=== PATIENT | female | born 1950 | race Caucasian/White ===

== ENCOUNTER → 2018-04-13 10:40 | Outpatient (CLI) | payer MEDICARE, OTHER, SELFPAY ==
[2018-04-13 12:44] LABS: Cholesterol 173 mg/dL (200); High Density Lipoprotein 78 mg/dL; Thyroid Stim Hormone (TSH) 0.17 uIU/mL (0.358-3.74); Triglycerides 97 mg/dL; Very Low Density Lipoprotein 19 mg/dL (5-40)
[2018-04-13 14:36] LABS: Absolute Lymphocyte Count 1.98 X10^3/ul (0.83-4.51); Absolute Neutrophil Count 1.8 X10^3/uL (2.0-7.7); Basophil# 0.02 X10^3/uL; Basophil% 0.5 % (0-1); Eosinophil# 0.11 X10^3/uL; Eosinophils% 2.5 % (0-5); Hematocrit 39.2 % (37-47); Hemoglobin 12.2 g/dl (12.0-15.0); Lymphocyte # 1.98 X10^3/ul (4.0); Lymphocyte % 45.3 % (19-41); Mean Corp Hgb Conc 31.1 g/gl (32-36); Mean Corpuscular Volume 93.1 fL (81-99); Mean Platelet Vol. 10.9 fl (6.2-12.0); Monocyte# 0.46 X10^3/uL; Monocyte% 10.5 % (0-10); Neutrophil % 41.2 % (47-70); Platelet Count 286 K/mm3 (150-450); RBC Distribution Width CV 13.7 % (11.6-14.6); RBC Distribution Width SD 46.7 fl (35.1-43.9); Red Blood Count 4.21 M/mm3 (4.2-5.4); White Blood Count 4.4 K/mm3 (4.4-11.0)
[2018-04-13 14:38] LABS: POSITIVE COUNT NO; POSITIVE DIFFERENTIAL NO; POSITIVE MORPHOLOGY NO
== END ==
PROVIDERS: Family Provider Family Medicine; PCP Family Medicine; Visit Provider Family Medicine
DX: E78.5 Hyperlipidemia, unspecified (principal); E03.9 Hypothyroidism, unspecified
CPT/HCPCS: 36415; 80061; 84443; 85025

== ENCOUNTER → 2018-05-04 12:33 | Outpatient (CLI) | payer MEDICARE, OTHER, SELFPAY ==
--- NOTE | 2018-05-04 12:36 | BI_ITS ---
MAMMOGRAPHY - BILATERAL SCREENING REASON FOR EXAM: Female, 68 years old. Routine annual screening examination. PERTINENT HISTORY: Non-contributory. History of prior bilateral breast reduction surgery. TECHNIQUE: Digital bilateral breast kameron (3D mammographic acquisition) in the CC and MLO projections. 2-D mediolateral oblique (MLO) and craniocaudad (CC) views of both breasts were obtained. CAD: Full Field Digital Mammography with Computer Added Detection was performed. COMPARISON: Comparison is made with prior study dated April 22, 2017 and April 05, 2016. FINDINGS: Breast Composition: The breasts are almost entirely fatty. There are no dominant masses or suspicious calcifications. No other significant abnormalities are identified. There has been no significant change since the prior study. BI/SCREENING MAMM (CAD), BILAT IMPRESSION: Stable bilateral screening mammogram. Yearly follow-up mammogram recommended. (A) ASSESSMENT CATEGORY: BIRADS Category 1: Negative. A letter regarding these results will be sent to the patient by the facility within 30 days. Approximately 10% of breast cancers are not detected by mammography. A normal mammogram should not delay biopsy of a clinically suspicious abnormality. [id number] Electronically Signed: Lennox Ellington MD at 9:24 EDT Tel [phone], Service support ,
== END ==
PROVIDERS: Family Provider Family Medicine; PCP Family Medicine; Visit Provider Nurse Practitioner Adult Health
DX: Z12.31 Encounter for screening mammogram for malignant neoplasm of breast (principal)
CPT/HCPCS: 77063; 77067

== ENCOUNTER → 2018-07-18 14:12 | Outpatient (CLI) | payer MEDICARE, OTHER, SELFPAY ==
[2018-07-18 15:09] LABS: Absolute Lymphocyte Count 2.11 X10^3/ul (0.83-4.51); Absolute Neutrophil Count 2.7 X10^3/uL (2.0-7.7); Basophil# 0.02 X10^3/uL; Basophil% 0.4 % (0-1); Eosinophils% 1.9 % (0-5); Hematocrit 41.7 % (37-47); Hemoglobin 12.9 g/dl (12.0-15.0); Immature Platelet Fraction 2.8 % (1.0-7.9); Lymphocyte # 2.11 X10^3/ul (4.0); Lymphocyte % 39.4 % (19-41); Mean Corp Hgb Conc 30.9 g/gl (32-36); Mean Corpuscular Hgb 28.7 pg (27.0-32.0); Mean Corpuscular Volume 92.9 fL (81-99); Mean Platelet Vol. 11.1 fl (6.2-12.0); Monocyte# 0.44 X10^3/uL; Monocyte% 8.2 % (0-10); Neutrophil # 2.68 X10^3/uL (2.7-7.7); Neutrophil % 50.1 % (47-70); Platelet Count 198 K/mm3 (150-450); RBC Distribution Width CV 15.3 % (11.6-14.6); RBC Distribution Width SD 51.9 fl (35.1-43.9); RET-HE 30.6 pg (30-35); Red Blood Count 4.49 M/mm3 (4.2-5.4); Reticulocyte Count 0.75 % (0.5-1.5); White Blood Count 5.4 K/mm3 (4.4-11.0)
[2018-07-18 15:19] LABS: POSITIVE COUNT NO; POSITIVE DIFFERENTIAL NO; POSITIVE MORPHOLOGY NO
[2018-07-18 15:47] LABS: Ferritin 27 ng/mL (8-252); Iron 82 ug/dL (50-170); Iron Binding Capacity,Total 340 ug/dL (250-450); T4 Free Direct 0.68 ng/dL (0.76-1.46); Thyroid Stim Hormone (TSH) 3.44 uIU/mL (0.358-3.74)
== END ==
PROVIDERS: Nurse Practitioner Adult Health; Family Provider Family Medicine; PCP Family Medicine; Visit Provider Family Medicine
DX: E03.9 Hypothyroidism, unspecified (principal); L65.9 Nonscarring hair loss, unspecified
CPT/HCPCS: 36415; 82728; 83540; 83550; 84439; 84443; 85025; 85045

== ENCOUNTER → 2018-10-11 10:02 | Outpatient (CLI) | payer MEDICARE, OTHER, SELFPAY ==
[2018-10-11 12:38] LABS: T4 Total, Thyroxin 8.8 ug/dL (4.8-13.9); Thyroid Stim Hormone (TSH) 1.78 uIU/mL (0.358-3.74)
== END ==
PROVIDERS: Family Provider Family Medicine; PCP Family Medicine; Visit Provider Nurse Practitioner Adult Health
DX: E03.9 Hypothyroidism, unspecified (principal)
CPT/HCPCS: 36415; 84436; 84443

== ENCOUNTER → 2019-01-23 15:47 | Outpatient (CLI) | payer MEDICARE, OTHER, SELFPAY ==
--- NOTE | 2019-01-23 16:02 | EKG12_ITS ---
Test Reason : Blood Pressure : / mmHG Vent. Rate : 063 BPM Atrial Rate : 063 BPM P-R Int : 184 ms QRS Dur : 090 ms QT Int : 438 ms P-R-T Axes : 067 054 040 degrees QTc Int : 448 ms Normal sinus rhythm Normal ECG Confirmed by MAURILIO HERNANDEZ ([id number]), staff editor PIERCE CORTES ([id number] on 01/26/2019 1:32:16 PM Referred By: Spenser Sexton Confirmed By:MAURILIO HERNANDEZ
[2019-01-23 16:41] LABS: Hematocrit 41.3 % (37-47); Hemoglobin 13.1 g/dl (12.0-15.0); Mean Corp Hgb Conc 31.7 g/gl (32-36); Mean Corpuscular Hgb 30.5 pg (27.0-32.0); Mean Platelet Vol. 10.9 fl (6.2-12.0); Platelet Count 235 K/mm3 (150-450); RBC Distribution Width CV 13.7 % (11.6-14.6); RBC Distribution Width SD 47.9 fl (35.1-43.9); White Blood Count 5.9 K/mm3 (4.4-11.0)
[2019-01-23 16:49] LABS: Anion Gap 6 (5-15); BUN 22 mg/dL (7-18); Chloride 101 mmol/L (98-107); Creatinine, Serum 0.71 mg/dL (0.55-1.02); EST Glomerular Filtration Rate 87 mL/min (>60); Est Glom Filt Rate - Afr Amer 105 mL/min (>60); Glucose 85 mg/dL (74-106); Potassium 4.5 mmol/L (3.5-5.1); Sodium Level 139 mmol/L (136-145)
[2019-01-23 17:00] LABS: Scan Indicated on CBC? Y/N NO
== END ==
PROVIDERS: Family Provider Family Medicine; PCP Family Medicine; Referring Provider Physician Assistant; Visit Provider Physician Assistant
DX: Z01.810 Encounter for preprocedural cardiovascular examination (principal); Z01.818 Encounter for other preprocedural examination
CPT/HCPCS: 36415; 80048; 85027; 93005

== ENCOUNTER → 2019-06-04 17:53 | Outpatient (CLI) | payer MEDICARE, OTHER, SELFPAY ==
[2019-06-11 14:32] LABS: HPV Reflexed? NOT INDICATED
== END ==
PROVIDERS: Family Provider Family Medicine; PCP Family Medicine; Referring Provider Nurse Practitioner Adult Health; Visit Provider Nurse Practitioner Adult Health
DX: Z01.419 Encounter for gynecological examination (general) (routine) without abnormal findings (principal)
CPT/HCPCS: 88175; G0145

== ENCOUNTER → 2019-07-03 15:29 | Outpatient (CLI) | payer MEDICARE, OTHER, SELFPAY ==
--- NOTE | 2019-07-03 15:33 | BI_ITS ---
MAMMOGRAPHY - BILATERAL SCREENING REASON FOR EXAM: Female, 69 years old. Routine annual screening examination. PERTINENT HISTORY: Non-contributory. TECHNIQUE: Digital bilateral breast jessica (3D mammographic acquisition) in the CC and MLO projections. 2-D mediolateral oblique (MLO) and craniocaudad (CC) views of both breasts were obtained. CAD: Full Field Digital Mammography with Computer Added Detection was performed. COMPARISON: Comparison is made with prior study dated May 04, 2018 and April 22, 2017. FINDINGS: Breast Composition: The breasts are almost entirely fatty. There are no dominant masses or suspicious calcifications. No other significant abnormalities are identified. There has been no significant change since the prior study. BI/SCREEN MAMM (CAD) W/JESSICA BILAT IMPRESSION: Stable bilateral screening mammogram. Yearly follow-up mammogram recommended. (A) ASSESSMENT CATEGORY: BIRADS Category 1: Negative. A letter regarding these results will be sent to the patient by the facility within 30 days. Approximately 10% of breast cancers are not detected by mammography. A normal mammogram should not delay biopsy of a clinically suspicious abnormality. [id number] Electronically Signed: Lennox Ellington, at 8:37 EDT , Service support ,
--- NOTE | 2019-07-03 15:36 | BD_ITS ---
STUDY: DUAL ENERGY X-RAY ABSORPTIOMETRY / DXA REASON FOR EXAM: Female, 69 years old. The patient is postmenopausal. Loss of height. TECHNIQUE: Bone Mineral Density (BMD) measurements of lumbar spine and bilateral hips were obtained. COMPARISON: Comparison is made with prior examination dated December 20, 2012. FINDINGS: Lumbar Spine (L1-L4): g/cm2 (0.723) / T-score (-3.7) / Z-score (-2.0) Findings are suggestive of osteoporosis with a high fracture risk. Left Femur Total: g/cm2 (0.722) / T-score (-2.3) / Z-score (-0.9) Left Femoral Neck: g/cm2 (0.688) / T-score (-2.5) / Z-score (-0.9) Right Femur Total: g/cm2 (0.686) / T-score (-2.6) / Z-score (-1.2) Right Femoral Neck: g/cm2 (0.700) / T-score (-2.4) / Z-score (-0.8) The T-Scores on the most recent prior examination were: Lumbar Spine (L1-L4): There has been worsening of bone density since the previous examination. Left Femur Total: which represents a worsening of 11.1%. Right Femur Total: which represents a worsening of 4.6%. BD/Dexa Bone Density Study IMPRESSION: The patient is considered osteoporotic as outlined below according to World Jonathon Organization (WHO) criteria with a high fracture risk. There has been worsening of bone density since the previous examination. Reference Information: The T-score is the number of standard deviations above or below the standard which is normal for young adults at their peak bone mineral density. The World Health Organization (WHO) interprets the T-scores as follows: Above -1 Normal bone density Between -1 and -2.5 Osteopenia Equal to / or below -2.5 Osteoporosis As a practical clinical guideline, osteopenia may be graded as follows: Mild -1 through -1.5 Moderate -1.6 through -2.0 Severe -2.1 through -2.4 The Z-score is the number of standard deviations above or below age-matched controls. A Z-score of less than -1.5 would be considered abnormal. References: 1. NIH Osteoporosis and Related Bone Diseases http://www.osteo.org 2. International Society for Clinical Densitometry http://www.iscd.org 3. National Osteoporosis Foundation http://www.nof.org Electronically Signed: Lennox Ellington, at 16:05 EDT , Service support ,
== END ==
PROVIDERS: Family Provider Family Medicine; PCP Family Medicine; Referring Provider Nurse Practitioner Adult Health; Visit Provider Nurse Practitioner Adult Health
DX: Z12.31 Encounter for screening mammogram for malignant neoplasm of breast (principal); Z78.0 Asymptomatic menopausal state; M81.0 Age-related osteoporosis without current pathological fracture
CPT/HCPCS: 77063; 77067; 77080

== ENCOUNTER → 2020-01-01 09:11 | Outpatient (CLI) | payer MEDICARE, OTHER, SELFPAY ==
[2020-01-01 10:14] LABS: Absolute Lymphocyte Count 1.37 X10^3/uL (0.83-4.51); Absolute Neutrophil Count 2.6 X10^3/uL (2.0-7.7); Basophil# 0.04 X10^3/uL; Basophil% 0.9 % (0-1); Eosinophil# 0.08 X10^3/uL; Eosinophils% 1.8 % (0-5); Hematocrit 43.2 % (37-47); Hemoglobin 13.8 g/dL (12.0-15.0); Lymphocyte # 1.37 X10^3/ul (4.0); Lymphocyte % 30.5 % (19-41); Mean Corp Hgb Conc 31.9 g/dL (32-36); Mean Corpuscular Hgb 31.4 pg (27.0-32.0); Mean Corpuscular Volume 98.4 fL (81-99); Mean Platelet Vol. 10.7 fl (6.2-12.0); Monocyte% 8.9 % (0-10); NRBC Flagged by Analyzer 0 % (0-5); Neutrophil # 2.59 X10^3/uL (2.7-7.7); Neutrophil % 57.7 % (47-70); Platelet Count 217 K/mm3 (150-450); RBC Distribution Width CV 13.5 % (11.6-14.6); Red Blood Count 4.39 M/mm3 (4.2-5.4); White Blood Count 4.5 K/mm3 (4.4-11.0)
[2020-01-01 10:44] LABS: Vitamin D,25 Hydroxy 45.9 ng/mL (29.95-100.01)
[2020-01-01 10:45] LABS: ALB/GLOB Ratio 1.1 RATIO (0.9-2.4); AST(SGOT) 22 U/L (15-37); Alanine Aminotransfer ALT/SGPT 16 U/L (13-56); Albumin, Serum 3.8 g/dL (3.2-5.0); Alkaline Phosphatase 67 U/L (45-117); Anion Gap 4 (5-15); BUN 18 mg/dL (7-18); BUN/Creat Ratio 21.5 RATIO (10-20); Calcium,Total 9.2 mg/dL (8.5-10.1); Chloride 104 mmol/L (98-107); Creatinine, Serum 0.84 mg/dL (0.55-1.02); EST Glomerular Filtration Rate 72 mL/min (>60); Est Glom Filt Rate - Afr Amer 87 mL/min (>60); Free T3 1.9 pg/mL (2.18-3.98); Globulin 3.6 g/dL (2.2-4.2); Glucose 67 mg/dL (74-106); Potassium 4.2 mmol/L (3.5-5.1); Protein, Total 7.4 g/dL (6.4-8.2); Sodium Level 140 mmol/L (136-145); T4 Free Direct 0.77 ng/dL (0.76-1.46); Thyroid Stim Hormone (TSH) 5.93 uIU/mL (0.358-3.74)
== END ==
PROVIDERS: PCP Family Medicine; Visit Provider Family Medicine
DX: E03.9 Hypothyroidism, unspecified (principal); M79.7 Fibromyalgia; M85.80 Other specified disorders of bone density and structure, unspecified site
CPT/HCPCS: 36415; 80053; 82306; 84439; 84443; 84481; 85025

== ENCOUNTER → 2020-07-21 12:36 | Outpatient (CLI) | payer MEDICARE, OTHER, SELFPAY ==
--- NOTE | 2020-07-21 12:41 | BI_ITS ---
MAMMOGRAPHY - BILATERAL SCREENING REASON FOR EXAM: Female, 70 years old. Routine annual screening examination. PERTINENT HISTORY: Non-contributory. Remote bilateral breast reduction surgery. TECHNIQUE: Digital bilateral breast jessica (3D mammographic acquisition) in the CC and MLO projections. 2-D mediolateral oblique (MLO) and craniocaudad (CC) views of both breasts were obtained. CAD: Full Field Digital Mammography with Computer Added Detection was performed. COMPARISON: Comparison is made with prior study dated 07/03/2019 and 05/04/2018. FINDINGS: Breast Composition: The breasts are almost entirely fatty. There are no dominant masses or suspicious calcifications. No other significant abnormalities are identified. There has been no significant change since the prior study. BI/SCREEN MAMM (CAD) W/JESSICA BILAT IMPRESSION: Stable bilateral screening mammogram. Yearly follow-up mammogram recommended. (A) ASSESSMENT CATEGORY: BIRADS Category 1: Negative. A letter regarding these results will be sent to the patient by the facility within 30 days. Approximately 10% of breast cancers are not detected by mammography. A normal mammogram should not delay biopsy of a clinically suspicious abnormality. [id number] Electronically Signed: Lennox Ellington, at 14:08 EDT , Service support ,
== END ==
PROVIDERS: PCP Family Medicine; Referring Provider Nurse Practitioner Adult Health; Visit Provider Nurse Practitioner Adult Health
DX: Z12.31 Encounter for screening mammogram for malignant neoplasm of breast (principal)
CPT/HCPCS: 77063; 77067

== ENCOUNTER → 2021-07-03 08:29 | Outpatient (CLI) | payer MEDICARE, OTHER, SELFPAY ==
[2021-07-03 10:34] LABS: AST(SGOT) 22 U/L (15-37); Alanine Aminotransfer ALT/SGPT 15 U/L (13-56); Albumin, Serum 3.6 g/dL (3.2-5.0); Alkaline Phosphatase 66 U/L (45-117); Anion Gap 4 (5-15); BUN 28 mg/dL (7-18); BUN/Creat Ratio 37.8 RATIO (10-20); Calcium,Total 8.8 mg/dL (8.5-10.1); Chloride 104 mmol/L (98-107); Cholesterol 354 mg/dL (200); Creatinine, Serum 0.74 mg/dL (0.55-1.02); EST Glomerular Filtration Rate 82 mL/min (>60); Est Glom Filt Rate - Afr Amer 100 mL/min (>60); Ferritin 68 ng/mL (8-252); Free T3 2.8 pg/mL (2.18-3.98); Globulin 3.5 g/dL (2.2-4.2); Glucose 86 mg/dL (74-106); High Density Lipoprotein 98 mg/dL; Potassium 4.2 mmol/L (3.5-5.1); Protein, Total 7.1 g/dL (6.4-8.2); Sodium Level 140 mmol/L (136-145); T4 Free Direct 1.06 ng/dL (0.76-1.46); Thyroid Stim Hormone (TSH) 1.15 uIU/mL (0.358-3.74)
== END ==
PROVIDERS: PCP Family Medicine; Referring Provider Family Medicine; Visit Provider Family Medicine
DX: E78.00 Pure hypercholesterolemia, unspecified (principal); E03.9 Hypothyroidism, unspecified; E61.1 Iron deficiency
CPT/HCPCS: 36415; 80053; 82465; 82728; 83718; 84439; 84443; 84481

== ENCOUNTER 2021-12-09 13:02 | Emergency (ER) | payer MEDICARE, OTHER, SELFPAY ==
[2021-12-09 13:04] VITALS: BP 147/80; PULSE 84; RESP 16; TEMP 36.9; O2SAT 97; BMI 28.8
[2021-12-09 13:26] VITALS: BP 145/81; PULSE 76; RESP 16; O2SAT 96
--- NOTE | 2021-12-09 14:07 | EKG12_ITS ---
Test Reason : CP Blood Pressure : / mmHG Vent. Rate : 081 BPM Atrial Rate : 081 BPM P-R Int : 158 ms QRS Dur : 082 ms QT Int : 374 ms P-R-T Axes : 066 018 041 degrees QTc Int : 434 ms Normal sinus rhythm Normal ECG Confirmed by KHADIJAH NUÑEZ, RILEY ([id number]), graphic editor ENZO PATE ([id number]) on 12/10/2021 9:01:26 AM Referred By: PRIMITIVO/ABBIE Confirmed By:RILEY LUCIO MD
[2021-12-09 14:14] VITALS: O2SAT 97
[2021-12-09 14:20] VITALS: BP 154/82; PULSE 67; RESP 19; O2SAT 95
--- NOTE | 2021-12-09 14:20 | ED.VIS.CHEST ---
HPI History of Present Illness Chief Complaint: Chest Pain Detail of Chief Complaint: I have chest wall strain. Informant: patient Onset/Context/Timing Onset: Days Activity at onset: sudden Timing: Continuous Quality: Positive for Pain and Sharp Location: Left Chest Current Severity: Mild Maximum Severity: Moderate Worsened By: Movement of Arm, Movement of Torso and Breathing; Not Worsened By Exertion, Eating, Palpation and Coughing Relieved By: Remaining Still Associated Symptoms: Negative for Nausea, Vomiting, Diaphoresis, Dyspnea, Cough, Fever and Lightheadedness Narrative Narrative: 71 female no cardiac history. History of fibromyalgia and hypoglycemia and arthritis. Says she was doing yoga about a week ago mats fell she struck her head up in an awkward position and patient straightened her chest wall. Made worse with movement. Not exertional. No shortness of breath. No history of DVT or PE. No leg pain or swelling. No hemoptysis. No risk factors. Pain has been constant. She has not really been able to take much anti-inflammatories due to reflux. Prior Similar Symptoms: No Recent Illness/Hospitalization: No PE Risk Factors: Negative for Recent Travel/Surgery, Recent Immobilization, Prior DVT or PE, Cancer and OCP + Smoking + >/=35 PFSH PFSH Home Medications Multivitamins,Therapeutic 11/12/15 [History Last Taken Unknown] Venlafaxine Xr [Effexor Xr] 75 mg PO DAILY 11/12/15 [History Last Taken Unknown] acetylcysteine 600 mg PO BID 11/12/15 [History Last Taken Unknown] amitriptyline 50 mg PO DAILY 11/12/15 [History Last Taken Unknown] amlodipine 5 mg PO DAILY 11/12/15 [History Last Taken Unknown] ascorbic acid (vitamin C) [Vitamin C] 1,000 mg PO DAILY@0800 11/12/15 [History Last Taken Unknown] atorvastatin 40 mg PO QHS 11/12/15 [History Last Taken Unknown] biotin [Chris Biotin] 10,000 mcg PO DAILY 11/12/15 [History Last Taken Unknown] calcium citrate-vitamin D3 1 ea PO BID 11/12/15 [History Last Taken Unknown] chondroitin sulf A sod (bulk) 1,200 mg MISCELLANEOUS BID 11/12/15 [History Last Taken Unknown] najcsfovukx-rqonerpzm-gfq C-Mn 1 ea PO BID 11/12/15 [History Last Taken Unknown] levothyroxine 20 mcg PO DAILY 11/12/15 [History Last Taken Unknown] magnesium 400 mg PO BID 11/12/15 [History Last Taken Unknown] metaxalone 800 mg PO BID 11/12/15 [History Last Taken Unknown] omeprazole 20 mg PO DAILY 11/12/15 [History Last Taken Unknown] prednisone 20 mg PO DAILY 10 Days #10 tab 12/09/21 [Rx Last Taken Unknown] Allergy/AdvReac Type Severity Reaction Status Date / Time cyclobenzaprine HCl AdvReac Other Verified 11/12/15 07:24 [From Flexeril] promethazine [From Phenergan] AdvReac Other Verified 12/09/21 13:04 Coduckm-MNL-MdS Reductase AdvReac Pain in Verified 12/09/21 13:04 Inhibitor joints Social History Smoking Status: Unknown if ever smoked ROS ROS ED ROS Narrative Denies recent illness. Review of Systems ROS Unobtainable: Denies due to encephalopathy Constitutional Constitutional ED: Denies fever(s) Eyes Eyes: Denies none ENT ENT ED: Denies ear pain Cardiovascular Cardiovascular: Reports as per HPI and chest pain Respiratory/Chest Respiratory/Chest: Denies cough or dyspnea Gastrointestinal Gastrointestinal: Denies abdominal pain, constipation, diarrhea, nausea or vomiting Genitourinary Genitourinary ED: Denies dysuria Musculoskeletal Musculoskeletal: Denies myalgias Integumentary Denies rash Neurologic Neurologic: Denies headache(s) Psychiatric Psychiatric: Denies depression Endocrine Endocrinology: Denies polyuria Hematologic/Lymphatic Hematologic/Lymphatic: Denies easy bruising Allergic/Immunologic Allergic/Immunologic ED: Denies urticaria EXAM Physical Exam Narrative Exam Narrative: 71-year-old female with vital signs are stable afebrile. Pulse ox 97% on room air no signs hypoxia. Reproducible tender left chest wall. HEENT exam normal. Neck nontender. Lungs are clear equal symmetrical. Heart regular rate and rhythm rate about 80 no murmur. Abdomen soft nontender. Moving all 4 extremities. Calves are nontender without edema or cords. Neurologically she is awake and alert with no focal motor deficits. Const Vital Signs: 12/09/21 13:04 12/09/21 13:26 12/09/21 13:27 Temperature 98.5 F Temperature Source Temporal Pulse Rate 84 76 Respiratory Rate 16 16 Respiratory Effort Normal Non-Labored Blood Pressure 147/80 H 145/81 H Blood Pressure Mean 102 102 Pulse Ox 97 96 Oxygen Delivery Method Room Air Room Air 12/09/21 14:14 12/09/21 14:20 Temperature Temperature Source Pulse Rate 67 Respiratory Rate 19 H Respiratory Effort Blood Pressure 154/82 H Blood Pressure Mean 106 Pulse Ox 97 95 Oxygen Delivery Method Room Air Room Air Positive well nourished and well developed; Negative for obese, cachectic, contractures or unkempt General Appearance ED: well developed and NAD; Negative for unkempt, cachectic, contractures or pallor Nutritional Appearance: Negative for cachectic or obese HEENT Reports moist mucous membranes normocephalic and atraumatic; Negative for trauma or tenderness Eyes PERRL and EOMs intact bilaterally General Eye ED: Yes pale conjunctiva; Negative for scleral icterus Neck no lymphadenopathy, supple and no JVD General: Negative for tenderness Chest Wall inspection of chest normal and palpation of chest normal Chest: Negative for tenderness Resp normal respiratory effort and clear to auscultation bilaterally Effort and Inspection: respiratory distress Auscultation: Negative for rales, rhonchi or wheezes Cardio regular rate, regular rhythm, S1 normal heart sound, S2 normal heart sound and no murmurs Rate: Negative for bradycardia or tachycardic Rhythm: Negative for abnormal rhythm GI normal to inspection, nondistended, normoactive bowel sounds, soft to palpation, non-tender, non-distended and no masses; Negative for hepatosplenomegaly Auscultation: Negative for hyperactive bowel sounds Back/Spine no CVA tenderness and no thoracic nor lumbar tenderness General Back: Negative for CVA tenderness Extremity normal to inspection General Extremety ED: Negative for edema or tenderness General Extremity: Negative for edema Neuro oriented x3 Sensorium / Orientation: awake, alert, oriented to person, oriented to place and oriented to time Motor Exam: strength 5/5 throughout Psych mental status grossly normal Appearance: Negative for unkempt Skin no rashes or lesions noted and no wounds General Skin Exam: Negative for jaundice or pallor Heart Score History: Slightly/Non-Suspicious ECG: Normal Age: >/= 65 years Risk Factors: No Risk Factors Troponin: </= Normal Limit Score: 2 MDM MDM MDM Narrative Medical decision making narrative: 71-year-old with what appears to be reproducible chest wall pain. She undergo a cardiac work-up. I did cancel the aspirin. And then we will come up with a plan. Repeat exam patient is doing well at 3:09 PM. She will be discharged to home. All of her labs were negative. I do not think this is cardiac. I do not think it is a PE. Nothing is reproducible intercostal muscle strain. Lab Data Attestation: I reviewed the patient's lab results. Lab results narrative: CBC normal white count of 4. Hemoglobin 13.2. Platelets 230. Electrolytes unremarkable gap of 5 BUN 24 creatinine 0.7 troponin 6. Chest x-ray single view portable unremarkable. Labs: Laboratory Results - last 24 hr 12/09/21 12/09/21 13:50 13:50 WBC 4.1 L RBC 4.35 Hgb 13.2 Hct 41.1 MCV 94.5 MCH 30.3 MCHC 32.1 RDW Std Deviation 46.5 H RDW Coeff of Sushant 13.2 Plt Count 230 MPV 10.9 Immature Gran % (Auto) 0.200 Neut % (Auto) 47.2 Lymph % (Auto) 40.0 [place] % (Auto) 10.4 H Eos % (Auto) 1.5 Baso % (Auto) 0.7 Absolute Neuts (auto) 1.9 L Absolute Lymphs (auto) 1.65 Nucleated RBC % 0 Sodium 138 Potassium 4.2 Chloride 103 Carbon Dioxide 30.0 Anion Gap 5 BUN 24 H Creatinine 0.78 Estim Creat Clear Calc 43.30 Est GFR (MDRD) Af Amer 94 Est GFR (MDRD) Non-Af 78 BUN/Creatinine Ratio 30.8 H Glucose 102 Calcium 9.2 Troponin I High Sens 6 Radiography Chest X-Ray - ED: 1 View, Read by ED Physician, Heart, Lungs, Mediastinum, Bony Structures, No Acute Disease and Chronic Changes Diagnostic Testing: Clinical Impression(s) from Imaging Studies Chest X-Ray 12/09/21 14:40 IMPRESSION: Hyperinflation. Stable mild left basilar scarring. Electronically Signed: Lennox Ellington MD at 14:53 EST , Service support , Single view chest x-ray interpreted by myself and radiology shows no acute abnormality. Rhythm Strip Rhythm Strip: Sinus Rhythm Rate: 70 Ectopy: None EKG Initial EKG: Attestation: I personally reviewed and interpreted this EKG as follows: Interpretation: Sinus Rhythm and No Acute Injury Pattern Comments: Normal sinus rhythm rate of 70 no acute signs of SC or ischemia. Unchanged from an EKG from January 2019. Prior EKG tracings: available for review Prior: Unchanged Discharge Plan Triage Chief Complaint: Chest Pain ED Provider: Martin Zamorano Dx/Rx/DC Orders Clinical Impression: Chest wall muscle strain Instructions: ED Chest Wall Pain, Costochondritis Prescriptions: New prednisone 20 mg tablet 20 mg PO DAILY 10 Days Qty: 10 RF: 0 No Action atorvastatin 40 MG tablet 40 mg PO QHS RF: 0 acetylcysteine 6,000 MG/30 ML solution 600 mg PO BID RF: 0 amlodipine 5 MG tablet 5 mg PO DAILY RF: 0 amitriptyline 50 MG tablet 50 mg PO DAILY RF: 0 ascorbic acid (vitamin C) [Vitamin C] 500 MG tablet 1,000 mg PO DAILY@0800 RF: 0 levothyroxine 50 MCG tablet 20 mcg PO DAILY RF: 0 biotin [Chris Biotin] 10,000 MCG capsule 10,000 mcg PO DAILY RF: 0 omeprazole 20 MG capsule 20 mg PO DAILY RF: 0 magnesium 200 MG tablet 400 mg PO BID RF: 0 metaxalone 800 MG tablet 800 mg PO BID RF: 0 xhfvelwdvev-gjacyqbhf-nng C-Mn 1 EACH capsule 1 ea PO BID RF: 0 calcium citrate-vitamin D3 1 EACH tablet 1 ea PO BID RF: 0 chondroitin sulf A sod (bulk) 100 GM powder 1,200 mg miscellaneous BID RF: 0 Multivitamins,Therapeutic RF: 0 Venlafaxine Xr [Effexor Xr] 75 MG capsule 75 mg PO DAILY RF: 0 Primary Care Provider: Narinder Crum Referrals: Narinder Crum MD [Primary Care Provider] - 10-14 Days if not better Activity Restrictions/Additional Instructions: You have inflammation of your chest wall most likely from a chest wall strain. Ice or cool compresses to the area. Tylenol will help with the pain. I will put you on a prescription of prednisone 20 mg once a day for 10 days. You do not need to taper it. This should help with the chest wall inflammation. Take it with food will probably help cut down on aggravating her reflux. This may take 10 to 14 days to start significantly and getting better. It should with time. If not follow-up with her doctor. Disposition Disposition: Home, Self Care
[2021-12-09 14:21] LABS: Absolute Lymphocyte Count 1.65 X10^3/uL (0.83-4.51); Absolute Neutrophil Count 1.9 X10^3/uL (2.0-7.7); Basophil# 0.03 X10^3/uL; Basophil% 0.7 % (0-1); Eosinophil# 0.06 X10^3/uL; Eosinophils% 1.5 % (0-5); Hematocrit 41.1 % (37-47); Hemoglobin 13.2 g/dL (12.0-15.0); Lymphocyte # 1.65 X10^3/ul (0.83-4.51); Mean Corp Hgb Conc 32.1 g/dL (32-36); Mean Corpuscular Hgb 30.3 pg (27.0-32.0); Mean Corpuscular Volume 94.5 fL (81-99); Mean Platelet Vol. 10.9 fl (6.2-12.0); Monocyte# 0.43 X10^3/uL; Monocyte% 10.4 % (0-10); NRBC Flagged by Analyzer 0 % (0-5); Neutrophil # 1.94 X10^3/uL (2.7-7.7); Neutrophil % 47.2 % (47-70); Platelet Count 230 K/mm3 (150-450); RBC Distribution Width CV 13.2 % (11.6-14.6); RBC Distribution Width SD 46.5 fl (35.1-43.9); Red Blood Count 4.35 M/mm3 (4.2-5.4); White Blood Count 4.1 K/mm3 (4.4-11.0)
[2021-12-09 14:33] LABS: Anion Gap 5 (5-15); BUN 24 mg/dL (7-18); BUN/Creat Ratio 30.8 RATIO (10-20); Calcium,Total 9.2 mg/dL (8.5-10.1); Chloride 103 mmol/L (98-107); Creatinine, Serum 0.78 mg/dL (0.55-1.02); EST Glomerular Filtration Rate 78 mL/min (>60); Est Glom Filt Rate - Afr Amer 94 mL/min (>60); Glucose 102 mg/dL (74-106); Potassium 4.2 mmol/L (3.5-5.1); Sodium Level 138 mmol/L (136-145); Troponin-I HS 6 pg/mL (3.0-54.0)
--- NOTE | 2021-12-09 14:40 | RAD_ITS ---
STUDY: X-RAY CHEST REASON FOR EXAM: Female, 71 years old. Left upper chest pain. TECHNIQUE: Single AP portable view of the chest. COMPARISON: Comparison is made with prior study dated 10/15/2013. FINDINGS: EKG electrodes are seen. There is hyperinflation of the lungs consistent with chronic obstructive lung disease (COPD). Stable mild increased linear markings at the left lung base suggestive of scarring. Normal size heart. Normal mediastinum and jolanta. Normal visualized pulmonary arteries. There is atherosclerotic calcification of the aortic arch with tortuosity. There are degenerative changes of the visualized thoracic spine. Normal visualized ribs, clavicles, and shoulders. There is no demonstrated abnormality of the visualized soft tissue structures of the upper abdomen. RAD/Chest 1 View (Portable) IMPRESSION: Hyperinflation. Stable mild left basilar scarring. Electronically Signed: Lennox Ellington MD at 14:53 EST , Service support ,
[2021-12-09 15:30] VITALS: BP 125/77; PULSE 68; RESP 15; O2SAT 97
== END 2021-12-09 15:30 | disposition home or self-care (01) ==
PROVIDERS: Emergency Provider Emergency Medicine; PCP Family Medicine; Visit Provider Emergency Medicine
DX: S29.011A Strain of muscle and tendon of front wall of thorax, initial encounter (principal); X58.XXXA Exposure to other specified factors, initial encounter; Y93.42 Activity, yoga; Y99.8 Other external cause status; M79.7 Fibromyalgia; M19.90 Unspecified osteoarthritis, unspecified site; Z79.899 Other long term (current) drug therapy
CPT/HCPCS: 71045; 80048; 84484; 85025; 93005; 99285; A4216

== ENCOUNTER 2021-12-14 14:44 | Outpatient (CLI) | payer MEDICARE, OTHER, SELFPAY ==
[2021-12-14 18:27] LABS: Absolute Lymphocyte Count 1.16 X10^3/uL (0.83-4.51); Absolute Neutrophil Count 5.2 X10^3/uL (2.0-7.7); Basophil# 0.03 X10^3/uL; Basophil% 0.5 % (0-1); Hematocrit 43.1 % (37-47); Hemoglobin 13.5 g/dL (12.0-15.0); Lymphocyte # 1.16 X10^3/ul (0.83-4.51); Lymphocyte % 17.7 % (19-41); Mean Corp Hgb Conc 31.3 g/dL (32-36); Mean Corpuscular Hgb 30.7 pg (27.0-32.0); Mean Platelet Vol. 11.1 fl (6.2-12.0); NRBC Flagged by Analyzer 0 % (0-5); Neutrophil # 5.16 X10^3/uL (2.7-7.7); Neutrophil % 78.5 % (47-70); Platelet Count 272 K/mm3 (150-450); RBC Distribution Width CV 13.3 % (11.6-14.6); White Blood Count 6.6 K/mm3 (4.4-11.0)
[2021-12-14 18:51] LABS: ALB/GLOB Ratio 1.1 RATIO (0.9-2.4); AST(SGOT) 20 U/L (15-37); Alanine Aminotransfer ALT/SGPT 15 U/L (13-56); Albumin, Serum 3.8 g/dL (3.2-5.0); Alkaline Phosphatase 79 U/L (45-117); Anion Gap 8 (5-15); BUN 24 mg/dL (7-18); BUN/Creat Ratio 32.8 RATIO (10-20); Chloride 102 mmol/L (98-107); Creatinine, Serum 0.73 mg/dL (0.55-1.02); EST Glomerular Filtration Rate 83 mL/min (>60); Est Glom Filt Rate - Afr Amer 101 mL/min (>60); Globulin 3.5 g/dL (2.2-4.2); Glucose 116 mg/dL (74-106); Potassium 4.7 mmol/L (3.5-5.1); Protein, Total 7.3 g/dL (6.4-8.2); Sodium Level 139 mmol/L (136-145); Thyroid Stim Hormone (TSH) 0.28 uIU/mL (0.358-3.74)
== END 2021-12-14 23:59 | disposition short-term general hospital (02) ==
LOC: MFPLAB 14:45
PROVIDERS: PCP Family Medicine; Visit Provider Family Medicine
DX: E03.9 Hypothyroidism, unspecified (principal)
CPT/HCPCS: 36415; 80053; 84439; 84443; 85025

== ENCOUNTER 2021-12-21 12:21 | Outpatient (CLI) | payer MEDICARE, OTHER, SELFPAY ==
[2021-12-21 15:25] LABS: Absolute Lymphocyte Count 2.49 X10^3/uL (0.83-4.51); Absolute Neutrophil Count 2.9 X10^3/uL (2.0-7.7); Basophil# 0.04 X10^3/uL; Basophil% 0.7 % (0-1); Eosinophil# 0.09 X10^3/uL; Eosinophils% 1.5 % (0-5); Hematocrit 44.6 % (37-47); Hemoglobin 14.3 g/dL (12.0-15.0); Lymphocyte # 2.49 X10^3/ul (0.83-4.51); Lymphocyte % 40.6 % (19-41); Mean Corp Hgb Conc 32.1 g/dL (32-36); Mean Corpuscular Hgb 30.4 pg (27.0-32.0); Mean Corpuscular Volume 94.7 fL (81-99); Mean Platelet Vol. 10.9 fl (6.2-12.0); Monocyte# 0.65 X10^3/uL; Monocyte% 10.6 % (0-10); NRBC Flagged by Analyzer 0 % (0-5); Neutrophil # 2.85 X10^3/uL (2.7-7.7); Neutrophil % 46.4 % (47-70); Platelet Count 265 K/mm3 (150-450); RBC Distribution Width SD 45.6 fl (35.1-43.9); Red Blood Count 4.71 M/mm3 (4.2-5.4); White Blood Count 6.1 K/mm3 (4.4-11.0)
[2021-12-21 15:53] LABS: ALB/GLOB Ratio 0.9 RATIO (0.9-2.4); AST(SGOT) 28 U/L (15-37); Alanine Aminotransfer ALT/SGPT 21 U/L (13-56); Albumin, Serum 3.8 g/dL (3.2-5.0); Alkaline Phosphatase 96 U/L (45-117); Anion Gap 4 (5-15); BUN 17 mg/dL (7-18); BUN/Creat Ratio 20.9 RATIO (10-20); Calcium,Total 9.4 mg/dL (8.5-10.1); Chloride 104 mmol/L (98-107); Creatinine, Serum 0.82 mg/dL (0.55-1.02); EST Glomerular Filtration Rate 74 mL/min (>60); Est Glom Filt Rate - Afr Amer 89 mL/min (>60); GGTP 24 U/L (5-55); Globulin 4.1 g/dL (2.2-4.2); Glucose 86 mg/dL (74-106); Lipase 62 U/L (73-393); Magnesium 2.5 mg/dL (1.6-2.6); Protein, Total 7.9 g/dL (6.4-8.2); Sodium Level 138 mmol/L (136-145)
[2021-12-23 14:57] LABS: Giardia Lamblia, Stool EIA Negative (Negative)
[2021-12-23 17:08] LABS: Endomysial Antibody IgA Negative (Negative)
[2021-12-23 17:28] LABS: Deamidated Gliadin IgA 4 units (0-19); Deamidated Gliadin IgG 5 units (0-19); Immunoglobulin A 130 mg/dL (87-352); t-Transglutaminase IgA <2 U/mL (0-3)
== END 2021-12-21 23:59 | disposition short-term general hospital (02) ==
LOC: LABSPEC 12:23 → MTLAB 12:31
PROVIDERS: PCP Family Medicine; Referring Provider Family Medicine; Visit Provider Family Medicine
DX: R19.7 Diarrhea, unspecified (principal); R74.8 Abnormal levels of other serum enzymes
CPT/HCPCS: 36415; 80053; 82784; 82977; 83516; 83690; 83735; 85025; 86255; 87329; 87506

== ENCOUNTER → 2022-03-17 | Outpatient (CLI) | payer MEDICARE, OTHER, SELFPAY ==
[2022-03-17 18:51] LABS: Free T3 2.3 pg/mL (2.18-3.98); T4 Free Direct 0.96 ng/dL (0.76-1.46); Thyroid Stim Hormone (TSH) 0.16 uIU/mL (0.358-3.74)
== END | disposition home or self-care (01) ==
LOC: MFPLAB 16:13
PROVIDERS: PCP Family Medicine; Referring Provider Family Medicine; Visit Provider Family Medicine
DX: E03.9 Hypothyroidism, unspecified (principal)
CPT/HCPCS: 36415; 84439; 84443; 84481

== ENCOUNTER → 2022-06-15 | Outpatient (CLI) | payer MEDICARE, OTHER, SELFPAY ==
[2022-06-15 19:03] LABS: T4 Total, Thyroxin 6.7 ug/dL (4.8-13.9); Thyroid Stim Hormone (TSH) 3.26 uIU/mL (0.358-3.74)
== END | disposition home or self-care (01) ==
LOC: MFPLAB 16:30
PROVIDERS: PCP Family Medicine; Referring Provider Family Medicine; Visit Provider Family Medicine
DX: E07.89 Other specified disorders of thyroid (principal); E03.9 Hypothyroidism, unspecified
CPT/HCPCS: 36415; 84436; 84443

== ENCOUNTER → 2022-08-18 | Outpatient (CLI) | payer MEDICARE, OTHER, SELFPAY ==
[2022-08-18 12:42] LABS: Absolute Lymphocyte Count 1.78 X10^3/uL (0.83-4.51); Basophil# 0.03 X10^3/uL; Basophil% 0.7 % (0-1); Eosinophil# 0.07 X10^3/uL; Eosinophils% 1.6 % (0-5); Hematocrit 42.7 % (37-47); Hemoglobin 13.6 g/dL (12.0-15.0); Lymphocyte # 1.78 X10^3/ul (0.83-4.51); Lymphocyte % 41.4 % (19-41); Mean Corp Hgb Conc 31.9 g/dL (32-36); Mean Corpuscular Hgb 31.3 pg (27.0-32.0); Mean Corpuscular Volume 98.4 fL (81-99); Mean Platelet Vol. 10.8 fl (6.2-12.0); Monocyte# 0.38 X10^3/uL; Monocyte% 8.8 % (0-10); NRBC Flagged by Analyzer 0 % (0-5); Neutrophil # 2.04 X10^3/uL (2.7-7.7); Neutrophil % 47.5 % (47-70); Platelet Count 236 K/mm3 (150-450); RBC Distribution Width CV 13.3 % (11.6-14.6); RBC Distribution Width SD 48.5 fl (35.1-43.9); Red Blood Count 4.34 M/mm3 (4.2-5.4); White Blood Count 4.3 K/mm3 (4.4-11.0)
[2022-08-18 12:59] LABS: AST(SGOT) 27 U/L (15-37); Alanine Aminotransfer ALT/SGPT 12 U/L (13-56); Albumin, Serum 3.7 g/dL (3.2-5.0); Alkaline Phosphatase 79 U/L (45-117); Anion Gap 5 (5-15); BUN 17 mg/dL (7-18); BUN/Creat Ratio 22.6 RATIO (10-20); Calcium,Total 9.2 mg/dL (8.5-10.1); Chloride 101 mmol/L (98-107); Cholesterol 344 mg/dL (200); Creatinine, Serum 0.75 mg/dL (0.55-1.02); EST Glomerular Filtration Rate 81 mL/min (>60); Est Glom Filt Rate - Afr Amer 98 mL/min (>60); Globulin 3.6 g/dL (2.2-4.2); Glucose 98 mg/dL (74-106); High Density Lipoprotein 105 mg/dL; Potassium 4.1 mmol/L (3.5-5.1); Protein, Total 7.3 g/dL (6.4-8.2); Sodium Level 137 mmol/L (136-145); Triglycerides 178 mg/dL; Very Low Density Lipoprotein 36 mg/dL (5-40)
[2022-08-18 13:14] LABS: Vitamin D,25 Hydroxy 32.3 ng/mL
== END | disposition home or self-care (01) ==
LOC: MFPLAB 09:31
PROVIDERS: PCP Family Medicine; Referring Provider Family Medicine; Visit Provider Family Medicine
DX: Z00.00 Encounter for general adult medical examination without abnormal findings (principal)
CPT/HCPCS: 36415; 80053; 80061; 82306; 85025

== ENCOUNTER → 2022-08-31 | Outpatient (CLI) | payer MEDICARE, OTHER, SELFPAY ==
--- NOTE | 2022-08-31 14:48 | BI_ITS ---
MAMMOGRAPHY - BILATERAL SCREENING REASON FOR EXAM: Female, 72 years old. Routine annual screening examination. PERTINENT HISTORY: Non-contributory. History of prior bilateral breast reduction surgery. TECHNIQUE: Digital bilateral breast jessica (3D mammographic acquisition) in the CC and MLO projections. 2-D mediolateral oblique (MLO) and craniocaudad (CC) views of both breasts were obtained. CAD: Full Field Digital Mammography with Computer Added Detection was performed. COMPARISON: Comparison is made with prior study 07/21/2020 and 07/03/2019. FINDINGS: Breast Composition: The breasts are almost entirely fatty. There are no dominant masses or suspicious calcifications. No other significant abnormalities are identified. There has been no significant change since the prior study. BI/SCRN MAMM (CAD)W/JESSICA BILAT IMPRESSION: Stable bilateral screening mammogram. Yearly follow-up mammogram recommended. (A) ASSESSMENT CATEGORY: BIRADS Category 1: Negative. A letter regarding these results will be sent to the patient by the facility within 30 days. Approximately 10% of breast cancers are not detected by mammography. A normal mammogram should not delay biopsy of a clinically suspicious abnormality. [id number] Electronically Signed: Lennox Ellington MD at 8:39 EDT ,
--- NOTE | 2022-08-31 15:03 | BD_ITS ---
STUDY: DUAL ENERGY X-RAY ABSORPTIOMETRY / DXA REASON FOR EXAM: Female, 72 years old. [id number] TECHNIQUE: Bone Mineral Density (BMD) measurements of lumbar spine and bilateral hips were obtained. COMPARISON: Comparison is made with prior study 07/03/2019. FINDINGS: Lumbar Spine (L1-L4): g/cm2 (0.691) / T-score (-3.0) / Z-score (0.8) Findings are suggestive of osteoporosis with a high fracture risk. Left Femur Total: g/cm2 (0.598) / T-score (-2.8) / Z-score (-1.2) Left Femoral Neck: g/cm2 (0.479) / T-score (-3.3) / Z-score (-1.5) Right Femur Total: g/cm2 (0.612) / T-score (-2.7) / Z-score (-1.1) Right Femoral Neck: g/cm2 (0.524) / T-score (-2.9) / Z-score (-1.1) The T-Scores on the most recent prior examination were: Lumbar Spine (L1-L4): There has been worsening of bone density since the previous examination. Left Femur Total: which represents a worsening of 9.9%. Right Femur Total: which represents a worsening of 2.7%. BD/Dexa Bone Density Study IMPRESSION: The patient is considered osteoporotic as outlined below according to World Jonathon Organization (WHO) criteria with a high fracture risk. There has been worsening of bone density since the previous examination. Reference Information: The T-score is the number of standard deviations above or below the standard which is normal for young adults at their peak bone mineral density. The World Health Organization (WHO) interprets the T-scores as follows: Above -1 Normal bone density Between -1 and -2.5 Osteopenia Equal to / or below -2.5 Osteoporosis As a practical clinical guideline, osteopenia may be graded as follows: Mild -1 through -1.5 Moderate -1.6 through -2.0 Severe -2.1 through -2.4 The Z-score is the number of standard deviations above or below age-matched controls. A Z-score of less than -1.5 would be considered abnormal. References: 1. NIH Osteoporosis and Related Bone Diseases www osteo.org 2. International Society for Clinical Densitometry www iscd.org 3. National Osteoporosis Foundation www nof.org Electronically Signed: Lennox Ellington MD at 10:32 EDT ,
== END | disposition home or self-care (01) ==
LOC: OPBD 14:46
PROVIDERS: PCP Family Medicine; Visit Provider Family Medicine
DX: Z12.31 Encounter for screening mammogram for malignant neoplasm of breast (principal); M81.0 Age-related osteoporosis without current pathological fracture
CPT/HCPCS: 77063; 77067; 77080

== ENCOUNTER 2022-09-05 07:10 | Emergency (ER) | payer MEDICARE, OTHER, SELFPAY ==
[2022-09-05 07:11] VITALS: BP 150/84; PULSE 71; RESP 16; TEMP 36.3; O2SAT 98; BMI 26.6
--- NOTE | 2022-09-05 07:31 | EKG12_ITS ---
Test Reason : SYNCOPE Blood Pressure : / mmHG Vent. Rate : 065 BPM Atrial Rate : 065 BPM P-R Int : 174 ms QRS Dur : 090 ms QT Int : 452 ms P-R-T Axes : 057 005 042 degrees QTc Int : 470 ms Normal sinus rhythm Low voltage QRS (Limb Leads) Confirmed by MAN NUÑEZ, DORY ([id number]), online editor FREDIS MELCHOR ([id number]) on 09/07/2022 8:14:47 AM Referred By: Confirmed By:DORY CONWAY MD
--- NOTE | 2022-09-05 07:34 | EX.ED.DYSGE1 ---
HPI History of Present Illness Chief Complaint: Syncope Informant: patient Narrative Narrative: Patient comes in after a syncopal episode yesterday. She states she has had guests that have not left the house for a few days so she has a little bit of stress may be a little less sleep. She took her evening tramadol and amitriptyline. She was then sitting down for about 45 minutes or so. She got up to go to bed when she stood up she got lightheaded. She called her who later on the ground. She evidently did have some urinary incontinence and passed out for a brief moment. But she came back. She went to bed. Today she feels a little worn out. She never had chest pain or palpitations with the event. She states she might of had a little palpitation this morning but did not get lightheaded again. No new medications. She has not had this happen before. No seizure activity. No recent illness. She did eat some different food in the evening also. She was hungry last night again but decided not to eat because she had already brushed her teeth. Past medical history includes Raynaud's, arthritis, GERD, irritable bowel, hypothyroidism. There is no history of congestive heart failure Medications are reviewed. 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 Allergies are reviewed as above. Surgeries including mostly orthopedic surgeries. 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 Medical History High cholesterol Hypothyroidism Home Medications Multivitamins,Therapeutic 11/12/15 [History Last Taken Unknown] Venlafaxine Xr [Effexor Xr] 75 mg PO DAILY 11/12/15 [History Last Taken Unknown] acetylcysteine 200 mg/mL (20 %) solution 600 mg PO BID 11/12/15 [History Last Taken Unknown] amitriptyline 50 mg tablet 50 mg PO DAILY 11/12/15 [History Last Taken Unknown] amlodipine 5 mg tablet 5 mg PO DAILY 11/12/15 [History Last Taken Unknown] ascorbic acid (vitamin C) 500 mg tablet (Vitamin C) 1,000 mg PO DAILY@0800 11/12/15 [History Last Taken Unknown] atorvastatin 40 mg tablet 40 mg PO QHS 11/12/15 [History Last Taken Unknown] biotin 10,000 mcg capsule (Chris Biotin) 10,000 mcg PO DAILY 11/12/15 [History Last Taken Unknown] calcium citrate 200 mg calcium-vitamin D3 6.25 mcg (250 unit) tablet 1 ea PO BID 11/12/15 [History Last Taken Unknown] chondroitin sulf A sod (bulk) 88 % powder 1,200 mg miscellaneous BID 11/12/15 [History Last Taken Unknown] nplkxeillfh-ypgaqddfb-rhf C-Mn 500 mg-400 mg capsule 1 ea PO BID 11/12/15 [History Last Taken Unknown] levothyroxine 50 mcg tablet 20 mcg PO DAILY 11/12/15 [History Last Taken Unknown] magnesium 200 mg tablet 400 mg PO BID 11/12/15 [History Last Taken Unknown] metaxalone 800 mg tablet 800 mg PO BID 11/12/15 [History Last Taken Unknown] omeprazole 20 mg capsule,delayed release 20 mg PO DAILY 11/12/15 [History Last Taken Unknown] prednisone 20 mg tablet 20 mg PO DAILY 10 days #10 tabs 12/09/21 [Rx Last Taken Unknown] Allergy/AdvReac Type Severity Reaction Status Date / Time cyclobenzaprine HCl AdvReac Other Verified 09/05/22 07:10 [From Flexeril] promethazine [From Phenergan] AdvReac Other Verified 09/05/22 07:10 Vkoapyl-MAS-EqH Reductase AdvReac Pain in Verified 09/05/22 07:10 Inhibitor joints Social History Smoking Status: Unknown if ever smoked EXAM Physical Exam Const Vital Signs: 09/05/22 07:11 Temperature 97.4 F L Temperature Source Temporal Pulse Rate 71 Respiratory Rate 16 Blood Pressure 150/84 H Blood Pressure Mean 106 Pulse Ox 98 Oxygen Delivery Method Room Air Positive well nourished and well developed General Appearance ED: well developed and NAD; Negative for pallor HEENT Reports moist mucous membranes; Denies dry mucous membranes HEENT Narrative: No notably dry mucous membranes. Mouth ED: No dry mucous membranes Mouth: No dry mucous membranes Eyes General Eye ED: Negative for pale conjunctiva or scleral icterus Neck no JVD Neck Narrative: No carotid bruit Chest Wall inspection of chest normal Resp normal respiratory effort and clear to auscultation bilaterally Resp Narrative: No pain with a deep breath Cardio regular rate and regular rhythm Rhythm: Negative for abnormal rhythm GI normal to inspection, nondistended, normoactive bowel sounds, non-tender and non-distended Back/Spine no CVA tenderness Extremity General Extremety ED: Negative for edema or tenderness General Extremity: Negative for edema Neuro no sensory deficits noted Neuro Narrative: Alert and appropriate. Normal strength coordination and speech. Sensorium / Orientation: alert Motor Exam: strength 5/5 throughout Psych mental status grossly normal Skin no rashes or lesions noted General Skin Exam: Negative for jaundice or pallor MDM MDM MDM Narrative Medical decision making narrative: Patient's EKG shows no marked abnormalities. X-ray shows no significant abnormality. CBC is normal. Electrolytes are normal other than her BUN to creatinine ratio is high consistent with some dehydration. She has given some fluids here. TSH was also a bit elevated. Magnesium and troponin are negative despite the symptoms happening approximately 9 hours before arrival. I do not think a delta troponin needs to be done. She never had chest pain. I think her syncope was likely multifactorial related to sleep, diet medications that she had just taken and some dehydration. She can follow-up with her physician for adjustment of thyroid meds. Patient states that she is not surprised she is little dehydrated. She and her have been moving so they have been doing a lot more work. This is also changed her eating and drinking. She also spent more time on the elliptical bike yesterday. She does not think she drank enough fluids. She had no symptoms on the bike she felt very good. We discussed follow-up and reasons to return. Lab Data Attestation: I reviewed the patient's lab results. Labs: Laboratory Results - last 24 hr 09/05/22 09/05/22 07:30 07:30 WBC 6.0 RBC 4.53 Hgb 14.1 Hct 44.3 MCV 97.8 MCH 31.1 MCHC 31.8 L RDW Std Deviation 49.2 H RDW Coeff of Sushant 13.7 Plt Count 245 MPV 10.5 Immature Gran % (Auto) 0.300 Neut % (Auto) 48.9 Lymph % (Auto) 40.2 [place] % (Auto) 8.9 Eos % (Auto) 1.0 Baso % (Auto) 0.7 Absolute Neuts (auto) 2.9 Absolute Lymphs (auto) 2.39 Nucleated RBC % 0 Sodium 137 Potassium 4.1 Chloride 102 Carbon Dioxide 30.0 Anion Gap 5 BUN 21 H Creatinine 0.70 Estim Creat Clear Calc 42.68 Est GFR (MDRD) Af Amer 106 Est GFR (MDRD) Non-Af 88 BUN/Creatinine Ratio 30.0 H Glucose 97 Calcium 9.3 Magnesium 2.3 Troponin I High Sens 6 TSH 5.03 H EKG Initial EKG: Comments: EKG done for syncopal event read by me shows normal sinus rhythm with overall rate of 65. No ectopy. No acute ST elevation or depression. MO interval, QRS duration is normal. QTc is toward upper limit at 470 Discharge Plan Triage Chief Complaint: Syncope ED Provider: Selvin Boykin Dx/Rx/DC Orders Clinical Impression: Syncope, Dehydration, Hypothyroidism Instructions: ED Fainting, Uncertain Cause Prescriptions: No Action atorvastatin 40 MG tablet 40 mg PO QHS acetylcysteine 6,000 MG/30 ML solution 600 mg PO BID amlodipine 5 MG tablet 5 mg PO DAILY amitriptyline 50 MG tablet 50 mg PO DAILY ascorbic acid (vitamin C) [Vitamin C] 500 MG tablet 1,000 mg PO DAILY@0800 levothyroxine 50 MCG tablet 20 mcg PO DAILY biotin [Chris Biotin] 10,000 MCG capsule 10,000 mcg PO DAILY omeprazole 20 MG capsule 20 mg PO DAILY magnesium 200 MG tablet 400 mg PO BID metaxalone 800 MG tablet 800 mg PO BID oqobigjogpo-bdnhzpjql-dhs C-Mn 1 EACH capsule 1 ea PO BID calcium citrate-vitamin D3 1 EACH tablet 1 ea PO BID chondroitin sulf A sod (bulk) 100 GM powder 1,200 mg miscellaneous BID Multivitamins,Therapeutic Venlafaxine Xr [Effexor Xr] 75 MG capsule 75 mg PO DAILY prednisone 20 mg tablet 20 mg PO DAILY 10 Days Qty: 10 0RF Primary Care Provider: Narinder Crum Referrals: Narinder Crum MD [Primary Care Provider] - 3-5 Days Disposition Disposition: Home, Self Care
[2022-09-05 07:50] LABS: Absolute Lymphocyte Count 2.39 X10^3/uL (0.83-4.51); Absolute Neutrophil Count 2.9 X10^3/uL (2.0-7.7); Basophil# 0.04 X10^3/uL; Basophil% 0.7 % (0-1); Eosinophil# 0.06 X10^3/uL; Hematocrit 44.3 % (37-47); Hemoglobin 14.1 g/dL (12.0-15.0); Lymphocyte # 2.39 X10^3/ul (0.83-4.51); Lymphocyte % 40.2 % (19-41); Mean Corp Hgb Conc 31.8 g/dL (32-36); Mean Corpuscular Hgb 31.1 pg (27.0-32.0); Mean Corpuscular Volume 97.8 fL (81-99); Mean Platelet Vol. 10.5 fl (6.2-12.0); Monocyte# 0.53 X10^3/uL; Monocyte% 8.9 % (0-10); NRBC Flagged by Analyzer 0 % (0-5); Neutrophil # 2.91 X10^3/uL (2.7-7.7); Neutrophil % 48.9 % (47-70); Platelet Count 245 K/mm3 (150-450); RBC Distribution Width CV 13.7 % (11.6-14.6); RBC Distribution Width SD 49.2 fl (35.1-43.9); Red Blood Count 4.53 M/mm3 (4.2-5.4)
--- NOTE | 2022-09-05 07:50 | RAD_ITS ---
STUDY: X-RAY CHEST REASON FOR EXAM: Female, 72 years old. Fall TECHNIQUE: Single AP portable view of the chest. COMPARISON: None. FINDINGS: There are monitoring devices. There is mild left lower lung linear scarring or atelectasis. There is no demonstrated pleural abnormality. Normal size heart. Normal mediastinum and jolanta. Normal visualized pulmonary arteries. There is atherosclerotic calcification of the aortic arch with tortuosity. There is demineralization of the osseous structures. Normal visualized ribs, clavicles, and shoulders. There is no demonstrated abnormality of the visualized soft tissue structures of the upper abdomen. RAD/Chest 1 View (Portable) IMPRESSION: Degenerative changes, as described above. No demonstrated acute cardiopulmonary process. Electronically Signed: Ángel Sanders MD at 8:35 EDT ,
[2022-09-05 08:00] LABS: Anion Gap 5 (5-15); BUN 21 mg/dL (7-18); Calcium,Total 9.3 mg/dL (8.5-10.1); Chloride 102 mmol/L (98-107); EST Glomerular Filtration Rate 88 mL/min (>60); Est Glom Filt Rate - Afr Amer 106 mL/min (>60); Estimated Creatinine Clearance 42.68 ml/min; Glucose 97 mg/dL (74-106); Magnesium 2.3 mg/dL (1.6-2.6); Potassium 4.1 mmol/L (3.5-5.1); Sodium Level 137 mmol/L (136-145); Thyroid Stim Hormone (TSH) 5.03 uIU/mL (0.358-3.74); Troponin-I HS 6 pg/mL (3.0-54.0)
== END 2022-09-05 08:50 | disposition home or self-care (01) ==
PROVIDERS: Emergency Provider Emergency Medicine; PCP Family Medicine; Visit Provider Emergency Medicine
DX: E86.0 Dehydration (principal); R55 Syncope and collapse; E03.9 Hypothyroidism, unspecified; E78.00 Pure hypercholesterolemia, unspecified; Z79.899 Other long term (current) drug therapy
CPT/HCPCS: 71045; 80048; 83735; 84443; 84484; 85025; 93005; 96360; 99284; J7040; A4216

== ENCOUNTER → 2022-09-23 | Outpatient (CLI) | payer MEDICARE, OTHER, SELFPAY ==
[2022-09-23 12:44] LABS: Bacteria 0 SEEN /hpf (None Seen); Mucous, Urine 0 SEEN /hpf (<or=2+); Red Blood Cells-Urine 0 SEEN /hpf (0-5); White Blood Cells 0 SEEN /hpf (0-5)
[2022-09-23 13:16] LABS: Color, Urine Straw (Yellow); Glucose, Dipstick Normal (Normal); Ketone-Dipstick Negative (Negative); Leukocyte Esterase-Dipstick Negative /ul (Negative); Nitrite-Dipstick Negative (Negative); Occult Blood-Urine Negative /ul (Negative); Protein-Dipstick Negative (Negative); Specific Gravity, Urine 1.005 (1.002-1.030); Urine Bilirubin Dipstick Negative (Negative); Urine Clarity Clear (Clear); Urine Urobilinogen Normal (Normal)
[2022-09-23 13:27] LABS: Squamous Epithelial Cells - UA 0-5 SEEN /hpf (5-10)
== END | disposition home or self-care (01) ==
LOC: LABSPEC 12:25
PROVIDERS: PCP Family Medicine; Visit Provider Physician Assistant
DX: N39.0 Urinary tract infection, site not specified (principal)
CPT/HCPCS: 81001; 87086; 87088

== ENCOUNTER → 2023-02-08 | Outpatient (CLI) | payer MEDICARE, OTHER, SELFPAY ==
[2023-02-08 18:05] LABS: Absolute Neutrophil Count 2.7 X10^3/uL (2.0-7.7); Basophil# 0.04 X10^3/uL; Basophil% 0.7 % (0-1); Eosinophil# 0.13 X10^3/uL; Eosinophils% 2.2 % (0-5); Hematocrit 43.4 % (37-47); Hemoglobin 13.5 g/dL (12.0-15.0); Lymphocyte % 44.8 % (19-41); Mean Corp Hgb Conc 31.1 g/dL (32-36); Mean Corpuscular Volume 99.8 fL (81-99); Mean Platelet Vol. 10.9 fl (6.2-12.0); Monocyte# 0.46 X10^3/uL; Monocyte% 7.6 % (0-10); NRBC Flagged by Analyzer 0 % (0-5); Neutrophil # 2.69 X10^3/uL (2.7-7.7); Neutrophil % 44.5 % (47-70); Platelet Count 254 K/mm3 (150-450); RBC Distribution Width CV 13.4 % (11.6-14.6); RBC Distribution Width SD 49.5 fl (35.1-43.9); Red Blood Count 4.35 M/mm3 (4.2-5.4)
[2023-02-08 20:24] LABS: Vitamin B12 506 pg/mL (211-911); Vitamin D,25 Hydroxy 30.5 ng/mL
[2023-02-08 20:54] LABS: ALB/GLOB Ratio 1.1 RATIO (0.9-2.4); AST(SGOT) 28 U/L (15-37); Alanine Aminotransfer ALT/SGPT 14 U/L (13-56); Albumin, Serum 3.7 g/dL (3.2-5.0); Alkaline Phosphatase 51 U/L (45-117); Anion Gap 9 (5-15); BUN 23 mg/dL (7-18); BUN/Creat Ratio 31.6 RATIO (10-20); Calcium,Total 8.9 mg/dL (8.5-10.1); Chloride 102 mmol/L (98-107); Creatinine, Serum 0.73 mg/dL (0.55-1.02); EST Glomerular Filtration Rate 84 mL/min (>60); Est Glom Filt Rate - Afr Amer 101 mL/min (>60); Free T3 1.9 pg/mL (2.18-3.98); Globulin 3.5 g/dL (2.2-4.2); Glucose 81 mg/dL (74-106); Potassium 4.3 mmol/L (3.5-5.1); Protein, Total 7.2 g/dL (6.4-8.2); Sodium Level 139 mmol/L (136-145); T4 Free Direct 0.71 ng/dL (0.76-1.46); Thyroid Stim Hormone (TSH) 3.71 uIU/mL (0.358-3.74)
== END | disposition home or self-care (01) ==
LOC: MFPLAB 14:26
PROVIDERS: PCP Family Medicine; Referring Provider Family Medicine; Visit Provider Family Medicine
DX: M81.0 Age-related osteoporosis without current pathological fracture (principal); K14.0 Glossitis; E03.9 Hypothyroidism, unspecified
CPT/HCPCS: 36415; 80053; 82306; 82607; 82746; 84439; 84443; 84481; 85025

== ENCOUNTER 2023-06-30 12:30 | Outpatient (RCR) | payer MEDICARE, OTHER, SELFPAY ==
--- NOTE | 2023-05-18 08:26 | HP.PTEVAL_ITS ---
Patient's Visit Information Visit Information Visit Information: RICHIE OSWALD is a 73 year old F referred to Physical Therapy by Spenser Sexton PA-C with a diagnosis of OA L hip and L/S OA. Date of Evaluation: 05/18/23 Physical Therapist: Greg Chahal, PT, ATC Visit Plan Frequency: 2-3x /Week Duration: 4-6 Weeks Plan: Postural edu, SKTC/DKTC, core strengthening ex's, B LE strengthening, and HEP Subjective Subjective: Pt reports she has had L hip pain is the past. Pt reports she went to the doctors last time secondary to pain that is located in the R gluteal region. Pt reports she has had x-rays of the LB and R hip. Pt notes she was diagnosed with OA of both regions. Pt notes she has had LB surgery in the past twice, which helped with her symptoms at the time. Pt notes she has no LBP today. Pt reports sleep difficulty on occasion secondary to pain. Pt reports sitting around in a lazy boy chair will increase her symptoms. Pt also reports prolonged standing increases her pain. However, prolonged ambulation tends to relieve her pain. Pt notes she has been stretching for her R hip and LB which has made little difference. Pt reports her pain on the L LE will extend from her hip to the mid calf region. The pain on the R side only extends to the glute region. 3/10 pain at rest, 8/10 pain at worst. Pain B LE pain: Pain Intensity (Out of 10): 3 Pain Intensity Range: 8 Objective Objective: Neuro: B LE sensation is WNL to light touch. B patellar reflex= 2/3 MMT: B LE's are grossly rated at 4/5 throughout ROM: B SB increases LBP and is minimally limited. All other ranges are WNL Repeated movements: RFIS 10x2 NE, SIL 10x2 NE Special tests: Pos quadrant test R hip Balance/Special Test Scores Lower Extremity Functional Score: 53 Goals Goal 1:: Decrease B hip pain x 50% to aid with sleep Goal Time Frame: 4-6 Weeks Goal 2:: Decrease the frequency and intensity of B LE radiculopathy to aid with standing tolerance Goal Time Frame: 4-6 Weeks Goal 3:: I with HEP of core and LE strengthening Goal Time Frame: 4-6 Weeks Goal 4:: Increase B LE strength to 5/5 throughout to aid with IADL's Goal Time Frame: 4-6 Weeks Rehabilitation Potential Physical Therapy Diagnosis: Pt has B LE pain, hip pain, and intermittent LBP secondary to degenerative changes in the respective regions Rehabilitation Potential: Good Anticipated Interventions Patient/Client Instruction: Educate patient on: Condition and Plan of Care For the Purpose of:: To improve self management Therapeutic Exercise to Include: Strength training, Endurance training, Body me chanics, Postural training and Dynamic Lumbar Stabilization For the Purpose of:: To decrease pain, To improve muscle performance and motor function and To increase tolerance to activity/condition/position Cryotherapy (ice pack, ice massage): Yes For the Purpose of:: To decrease pain Text: Thank you for the opportunity to evaluate your patient. For Medicare and Medicare HMO plans, please review the plan of care and approve it. It will need to be FAXED BACK to us at [phone] for Medicare purposes. For Medicare only, by signing this I certify the plan of care. Please let me know if there are questions or concerns regarding this plan of care. Physician Signature: Date:
--- NOTE | 2023-06-30 13:07 | HP.PTDCSUM ---
Discharge Summary D/C summary: It has been my pleasure to treat RICHIE OSWALD referred by Spenser Sexton PA-C, with the diagnosis of OA L hip and L/S OA for a total of 10 visit(s). Discharge Date: Please see the following information for a summary of their discharge status. Subjective Subjective: I am ready to do this on my own Pain B LE pain: Pain Intensity (Out of 10): 3 LB: Pain Intensity (Out of 10): 3 Overall Improvement % Improvement: 45 Objective Objective/Function: LBP ranges from 3-6/10 LE radiculopathy is occurring 50% less often per patient B LE MMT 4+/5 throughout I with HEP Goals Goal 1:: Decrease B hip pain x 50% to aid with sleep Goal Progress: Progressing Goal 2:: Decrease the frequency and intensity of B LE radiculopathy to aid with standing tolerance Goal Progress: Goal Met Goal 3:: I with HEP of core and LE strengthening Goal Progress: Goal Met Goal 4:: Increase B LE strength to 5/5 throughout to aid with IADL's Goal Progress: Progressing Plan Plan: Discharge to HEP D/C Information d/c sentence: If there are questions or concerns regarding this patient's physical therapy, please feel free to call me at [phone]. Thank you for the referral of this patient. Sincerely, Greg Chahal, PT, ATC Balance/Gait/Functional tests Balance/Special Test Scores Lower Extremity Functional Score: 61
== END 2023-06-30 13:12 | disposition home or self-care (01) ==
LOC: PT 12:30
PROVIDERS: PCP Family Medicine; Referring Provider Physician Assistant; Visit Provider Physician Assistant
DX: M16.12 Unilateral primary osteoarthritis, left hip (principal); M51.37 Other intervertebral disc degeneration, lumbosacral region
CPT/HCPCS: 97110; 97161; 97164

== ENCOUNTER → 2023-09-22 | Outpatient (CLI) | payer MEDICARE, OTHER, SELFPAY ==
--- NOTE | 2023-09-22 12:58 | BI_ITS ---
MAMMOGRAPHY - BILATERAL SCREENING REASON FOR EXAM: Female, 73 years old. Routine annual screening examination. PERTINENT HISTORY: Non-contributory. History of prior bilateral breast reduction surgery. TECHNIQUE: Digital bilateral breast jessica (3D mammographic acquisition) in the CC and MLO projections. 2-D mediolateral oblique (MLO) and craniocaudad (CC) views of both breasts were obtained. CAD: Full Field Digital Mammography with Computer Added Detection was performed. COMPARISON: Comparison is made with prior examination August 31, 2022 and July 21, 2020. FINDINGS: Breast Composition: The breasts are almost entirely fatty. There are no dominant masses or suspicious calcifications. Stable small benign-appearing bilateral axillary lymph nodes. No other significant abnormalities are identified. There has been no significant change since the prior study. BI/SCRN MAMM (CAD)W/JESSICA BILAT IMPRESSION: Stable bilateral screening mammogram. Yearly follow-up mammogram recommended. (A) ASSESSMENT CATEGORY: BIRADS Category 2: Benign. A letter regarding these results will be sent to the patient by the facility within 30 days. Approximately 10% of breast cancers are not detected by mammography. A normal mammogram should not delay biopsy of a clinically suspicious abnormality. [id number] Electronically Signed: Lennox Ellington MD at 13:44 EDT ,
== END | disposition home or self-care (01) ==
LOC: OPBI 12:56
PROVIDERS: PCP Family Medicine; Referring Provider Nurse Practitioner Family; Visit Provider Nurse Practitioner Family
DX: Z12.31 Encounter for screening mammogram for malignant neoplasm of breast (principal)
CPT/HCPCS: 77063; 77067

== ENCOUNTER 2023-12-20 14:07 | Emergency (ER) | payer MEDICARE, OTHER, SELFPAY ==
[2023-12-20 14:08] VITALS: BP 185/104; PULSE 82; RESP 18; TEMP 36.3; O2SAT 100; BMI 29.7
[2023-12-20 14:40] VITALS: BP 158/92; PULSE 75; RESP 20; O2SAT 97; O2SAT 99
--- NOTE | 2023-12-20 14:45 | RAD_ITS ---
STUDY: X-RAY CHEST REASON FOR EXAM: Female, 73 years old. Chest pain TECHNIQUE: PA and lateral views of the chest. COMPARISON: Comparison is made with prior study September 05, 2022. FINDINGS: EKG electrodes are seen. Mild increased linear markings at the left lung base suggestive of linear atelectasis. There is no demonstrated pleural abnormality. Normal size heart. Normal mediastinum and jolanta. Normal visualized pulmonary arteries. There is atherosclerotic tortuosity of the aortic arch and descending thoracic aorta. There is demineralization of the osseous structures. Normal visualized ribs, clavicles, and shoulders. There is no demonstrated abnormality of the visualized soft tissue structures of the upper abdomen. RAD/Chest PA and Lateral IMPRESSION: Mild increased linear markings at the left lung base suggestive of linear atelectasis. Electronically Signed: Lennox Ellington MD at 15:15 EST ,
--- NOTE | 2023-12-20 14:49 | EDS_ITS ---
HPI <GAGE Boyer - Last Filed: 12/20/23 17:42> History of Present Illness Chief Complaint: Syncope Narrative Narrative: Patient is a 73-year-old female with history of Raynaud's disease, osteoporosis hypothyroidism who presents to the emergency department for near syncopal episode. Patient states after lunch today which consisted of berries, cottage cheese, patient felt some chest discomfort, had some sweating, patient states she laid down and still felt lightheaded and dizzy. Patient states that she no longer feels dizzy, lightheaded or chest pressure however she still feels washed out . Patient states that she was very stressed today secondary to not telling her that she paid over $600 to get the vents cleaned. Patient states she had something similar 2 years ago where she was dehydrated and had a syncopal episode. PFS <GAGE Boyer - Last Filed: 12/20/23 17:42> [facility] Medical History (Updated 12/20/23 @ 17:[address] Narinder Fuentes, DO) High cholesterol Hypothyroidism Oral thrush Suprapubic abdominal pain Home Medications Multivitamins,Therapeutic 11/12/15 [History Last Taken Unknown] Venlafaxine Xr [Effexor Xr] 75 mg PO DAILY 11/12/15 [History Last Taken Unknown] acetylcysteine 200 mg/mL (20 %) solution 600 mg PO BID 11/12/15 [History Last Taken Unknown] amitriptyline 50 mg tablet 50 mg PO DAILY 11/12/15 [History Last Taken Unknown] amlodipine 5 mg tablet 5 mg PO DAILY 11/12/15 [History Last Taken Unknown] ascorbic acid (vitamin C) 500 mg tablet (Vitamin C) 1,000 mg PO DAILY@0800 11/12/15 [History Last Taken Unknown] atorvastatin 40 mg tablet 40 mg PO QHS 11/12/15 [History Last Taken Unknown] biotin 10,000 mcg capsule (Chris Biotin) 10,000 mcg PO DAILY 11/12/15 [History Last Taken Unknown] calcium citrate 200 mg calcium-vitamin D3 6.25 mcg (250 unit) tablet 1 ea PO BID 11/12/15 [History Last Taken Unknown] chondroitin sulf A sod (bulk) 88 % powder 1,200 mg miscellaneous BID 11/12/15 [History Last Taken Unknown] qnaqagglnhl-qhnckiqda-mmy C-Mn 500 mg-400 mg capsule 1 ea PO BID 11/12/15 [History Last Taken Unknown] levothyroxine 50 mcg tablet 20 mcg PO DAILY 11/12/15 [History Last Taken Unknown] magnesium 200 mg tablet 400 mg PO BID 11/12/15 [History Last Taken Unknown] metaxalone 800 mg tablet 800 mg PO BID 11/12/15 [History Last Taken Unknown] omeprazole 20 mg capsule,delayed release 20 mg PO DAILY 11/12/15 [History Last Taken Unknown] prednisone 20 mg tablet 20 mg PO DAILY 10 days #10 tabs 12/09/21 [Rx Last Taken Unknown] Allergy/AdvReac Type Severity Reaction Status Date / Time cyclobenzaprine HCl AdvReac Other Verified 12/20/23 14:42 [From Flexeril] promethazine [From Phenergan] AdvReac Other Verified 12/20/23 14:42 Qmaroph-FUK-ToY Reductase AdvReac Pain in Verified 12/20/23 14:42 Inhibitor joints Social History Smoking Status: Unknown if ever smoked ROS <GAGE Boyer - Last Filed: 12/20/23 17:42> ROS ED ROS Narrative Constitutional: Negative for fever, chills, weight loss, weakness Eyes: Negative for vision loss, vision change, double vision ENT: Negative for any sore throat, ear pain, congestion Cardiovascular: Negative for any palpitations. Positive for chest pressure Respiratory: Negative for any cough, sputum production, hemoptysis, dyspnea, dyspnea on exertion, orthopnea Gastrointestinal: Negative for any abdominal pain, vomiting, diarrhea, constipation, blood in stool, blood in vomit. Positive for nausea : Negative for any urinary frequency, dysuria, retention, blood in urine Muscle skeletal: Negative for any myalgias, arthralgias, neck pain, back pain Neurological: Negative for any headache, paresthesias. Positive for near syncope, dizziness Skin: Negative for any rashes, lumps, itching, abrasions, lacerations Psychiatric: Negative for any depression, anxiety, stress, suicidal ideation, homicidal ideation Hematologic: Negative for any easy bruising, excessive bruising, easy bleeding Allergies: Negative for any eczema, hives, rash EXAM <GAGE Boyer - Last Filed: 12/20/23 17:42> Physical Exam Narrative Exam Narrative: Vital signs reviewed. HEET: Head normocephalic atraumatic, TMs clear bilaterally. Posterior pharynx is clear, dry mucous membranes. Nares clear bilaterally. Neck: Supple with no lymphadenopathy or tenderness. No signs of meningismus. Cardiac: Regular rate and rhythm no murmurs gallops or rubs, equal peripheral pulses bilaterally. Respiratory: Lungs clear to auscultation bilaterally. No chest tenderness. Abdomen: Soft, nontender, nondistended. No abdominal bruit or pulsatile masses. No hepatosplenomegaly Extremities: No peripheral edema, no signs of gross trauma or deformity. Active full range of motion of all extremities. Neuro: Cranial nerves II through XII intact, no focal neurological deficits. Skin: Clean dry and intact with no rash, purpura, petechiae, vesicles or pustules. Backs/flank: No CVA tenderness, no midline spinal tenderness, no deformity. Psych: Normal mood and affect. No SI, HI or acute psychosis. Const Vital Signs: 12/20/23 14:08 12/20/23 14:40 12/20/23 14:40 Temperature 97.3 F L Temperature Source Temporal Pulse Rate 82 75 Pulse Rate [Lying] Pulse Rate [Sitting (for 1 minute prior to obtaining)] Pulse Rate [Standing (for 1 minute prior to obtaining)] Respiratory Rate 18 20 H Respiratory Effort Respiratory Pattern Blood Pressure 185/104 H 158/92 H Blood Pressure [Lying] Blood Pressure [Sitting (for 1 minute prior to obtaining)] Blood Pressure [Standing (for 1 minute prior to obtaining)] Blood Pressure Mean 131 114 Blood Pressure Mean [Lying] Blood Pressure Mean [Sitting (for 1 minute prior to obtaining)] Blood Pressure Mean [Standing (for 1 minute prior to obtaining)] Pulse Ox 100 97 99 Oxygen Delivery Method Room Air Room Air Room Air 12/20/23 14:41 12/20/23 14:41 12/20/23 14:53 Temperature Temperature Source Pulse Rate Pulse Rate [Lying] Pulse Rate [Sitting (for 1 minute prior to obtaining)] Pulse Rate [Standing (for 1 minute prior to obtaining)] Respiratory Rate Respiratory Effort Normal Non-Labored Normal Non-Labored Respiratory Pattern Normal Blood Pressure Blood Pressure [Lying] Blood Pressure [Sitting (for 1 minute prior to obtaining)] Blood Pressure [Standing (for 1 minute prior to obtaining)] Blood Pressure Mean Blood Pressure Mean [Lying] Blood Pressure Mean [Sitting (for 1 minute prior to obtaining)] Blood Pressure Mean [Standing (for 1 minute prior to obtaining)] Pulse Ox 94 Oxygen Delivery Method Room Air 12/20/23 16:06 12/20/23 17:49 12/20/23 17:49 Temperature Temperature Source Pulse Rate 74 74 Pulse Rate [Lying] 66 Pulse Rate [Sitting (for 1 minute prior to obtaining)] 68 Pulse Rate [Standing (for 1 minute prior to obtaining)] 76 Respiratory Rate 18 16 Respiratory Effort Respiratory Pattern Blood Pressure 161/86 H 161/86 H Blood Pressure [Lying] 145/68 H Blood Pressure [Sitting (for 1 minute prior to obtaining)] 161/81 H Blood Pressure [Standing (for 1 minute prior to obtaining)] 149/88 H Blood Pressure Mean 111 111 Blood Pressure Mean [Lying] 93 Blood Pressure Mean [Sitting (for 1 minute prior to obtaining)] 107 Blood Pressure Mean [Standing (for 1 minute prior to obtaining)] 108 Pulse Ox 95 95 Oxygen Delivery Method Room Air <Dr. Narinder Fuentes, DO - Last Filed: 12/20/23 17:54> Physical Exam Const Vital Signs: 12/20/23 14:08 12/20/23 14:40 12/20/23 14:40 Temperature 97.3 F L Temperature Source Temporal Pulse Rate 82 75 Pulse Rate [Lying] Pulse Rate [Sitting (for 1 minute prior to obtaining)] Pulse Rate [Standing (for 1 minute prior to obtaining)] Respiratory Rate 18 20 H Respiratory Effort Respiratory Pattern Blood Pressure 185/104 H 158/92 H Blood Pressure [Lying] Blood Pressure [Sitting (for 1 minute prior to obtaining)] Blood Pressure [Standing (for 1 minute prior to obtaining)] Blood Pressure Mean 131 114 Blood Pressure Mean [Lying] Blood Pressure Mean [Sitting (for 1 minute prior to obtaining)] Blood Pressure Mean [Standing (for 1 minute prior to obtaining)] Pulse Ox 100 97 99 Oxygen Delivery Method Room Air Room Air Room Air 12/20/23 14:41 12/20/23 14:41 12/20/23 14:53 Temperature Temperature Source Pulse Rate Pulse Rate [Lying] Pulse Rate [Sitting (for 1 minute prior to obtaining)] Pulse Rate [Standing (for 1 minute prior to obtaining)] Respiratory Rate Respiratory Effort Normal Non-Labored Normal Non-Labored Respiratory Pattern Normal Blood Pressure Blood Pressure [Lying] Blood Pressure [Sitting (for 1 minute prior to obtaining)] Blood Pressure [Standing (for 1 minute prior to obtaining)] Blood Pressure Mean Blood Pressure Mean [Lying] Blood Pressure Mean [Sitting (for 1 minute prior to obtaining)] Blood Pressure Mean [Standing (for 1 minute prior to obtaining)] Pulse Ox 94 Oxygen Delivery Method Room Air 12/20/23 16:06 12/20/23 17:49 12/20/23 17:49 Temperature Temperature Source Pulse Rate 74 74 Pulse Rate [Lying] 66 Pulse Rate [Sitting (for 1 minute prior to obtaining)] 68 Pulse Rate [Standing (for 1 minute prior to obtaining)] 76 Respiratory Rate 18 16 Respiratory Effort Respiratory Pattern Blood Pressure 161/86 H 161/86 H Blood Pressure [Lying] 145/68 H Blood Pressure [Sitting (for 1 minute prior to obtaining)] 161/81 H Blood Pressure [Standing (for 1 minute prior to obtaining)] 149/88 H Blood Pressure Mean 111 111 Blood Pressure Mean [Lying] 93 Blood Pressure Mean [Sitting (for 1 minute prior to obtaining)] 107 Blood Pressure Mean [Standing (for 1 minute prior to obtaining)] 108 Pulse Ox 95 95 Oxygen Delivery Method Room Air [facility] <GAGE Boyer - Last Filed: 12/20/23 17:42> [facility] Lab Data Labs: Laboratory Results - last 24 hr 12/20/23 12/20/23 14:50 16:57 WBC 5.9 RBC 4.76 Hgb 14.4 Hct 46.7 MCV 98.1 MCH 30.3 MCHC 30.8 L RDW Std Deviation 50.1 H RDW Coeff of Sushant 13.5 Plt Count 186 MPV 11.4 Immature Gran % (Auto) 0.300 Neut % (Auto) 63.9 Lymph % (Auto) 26.2 Pike % (Auto) 7.5 Eos % (Auto) 1.4 Baso % (Auto) 0.7 Absolute Neuts (auto) 3.8 Absolute Lymphs (auto) 1.54 Nucleated RBC % 0 Sodium 138 Potassium 4.3 Chloride 106 Carbon Dioxide 26.0 Anion Gap 6 BUN 22 H Creatinine 0.79 Estim Creat Clear Calc 62.14 Est GFR (MDRD) Af Amer 92 Est GFR (MDRD) Non-Af 76 BUN/Creatinine Ratio 28.0 H Glucose 119 H Calcium 10.0 Total Bilirubin 0.30 AST 27 ALT 13 Alkaline Phosphatase 55 Troponin I High Sens 6 7 Total Protein 7.8 Albumin 4.1 Globulin 3.7 Albumin/Globulin Ratio 1.1 Radiography Diagnostic Testing: Clinical Impression(s) from Imaging Studies Chest X-Ray 12/20/23 14:45 IMPRESSION: Mild increased linear markings at the left lung base suggestive of linear atelectasis. Electronically Signed: Lennox Ellington MD at 15:15 EST , EKG Normal sinus rhythm: Attestation: I personally reviewed and interpreted this EKG as follows: Interpretation: Sinus Rhythm Comments: Normal sinus rhythm, rate of 76 bpm, ME interval 168 ms, QRS duration 86 ms, no acute ST elevation, no acute infarct noted. Treatment and Re-Evaluation :: Patient appears to be in no obvious distress, vital signs are stable. Presenting to the emergency department with complaints of near syncope, feeling of dizziness, nausea, chest pressure. On my evaluation, other than feeling tired, the patient had no dizziness, lightheadedness, chest pressure. Secondary to the patient's age, patient will receive a full cardiac workup including 2 troponins, CBC, EKG BMP, chest x-ray. Patient be given 1 L normal saline as well as IV Zofran. All radiologic examinations were read, reviewed by the emergency department attending. From these reads, a plan of care will be put in place. Patient be reevaluated On reevaluation, the patient is doing well. Patient's laboratory values showed normal CBC, patient's chemistries were unremarkable, patient's troponin was negative at 6, repeat 2-hour delta was negative at 7. Chest x-ray showed some atelectasis however no consolidation or effusion. Patient responded well to IV fluids. Patient's orthostatic vital signs were negative. Patient was able to be ambulated around the department, patient felt generally well and feels well enough for discharge. At this time, there is no evidence of any ACS, AR, patient is not orthostatic. I do believe the patient is stable for discharge. All questions were answered, patient struck to return for any worsening symptoms. <Dr. Narinder Fuentes, DO - Last Filed: 12/20/23 17:54> [facility] Narrative Medical decision making narrative: I have personally performed a face to face assessment of the patient and have reviewed the CRISTIANO Note. I performed a substantive portion of the visit including all aspects of the following. My figueroa findings include: History: Patient presents with a near syncopal episode that occurred today. Patient states she was sitting and eating when this occurred. Patient states she felt lightheaded. Patient states that she had some aching in the substernal area of her chest. Patient states the symptoms lasted approximately 40 minutes. Patient states she was able to drink some Sprite and felt better after that. Currently, patient denies any symptoms. Patient denies any shortness of breath or cough. Patient denies any diaphoresis. Exam: Vital signs are stable except for an elevated blood pressure 185/104. Patient is afebrile. Patient is in no acute distress. Oral mucosa is pink and moist. Neck is supple. Trachea is midline. There is no JVD. Heart was regular rate and rhythm. Lungs are clear and equal bilaterally. There is good respiratory effort noted. Abdomen is soft. Bowel sounds are normal. There is no tenderness. Cranial nerves II through XII are intact. There are no focal motor or sensory deficits noted. Medical Decision Making: Differential diagnosis includes cardiac dysrhythmia, cardiac ischemia, hypoglycemia, pneumonia, pneumothorax, electrolyte abnormality, and anemia. EKG will be obtained to assess for cardiac dysrhythmia and cardiac ischemia. Chest x-ray will be obtained to assess for pneumonia and congestive heart failure. CBC will be obtained to assess for leukocytosis and anemia. Comprehensive metabolic profile will be obtained to assess for hepatic function, renal function, and electrolyte abnormality. High-sensitivity troponin will be obtained to assess for cardiac ischemia. EKG was obtained. On my independent interpretation it shows a normal sinus rhythm with a rate of 76. ME interval, QRS normal, QTc intervals were within normal limits. Bath was normal. There are no acute ST or T wave changes noted. There is no change compared to previous EKG dated 09/05/2022. PA and lateral chest x-ray was obtained. There are 2 views. On my independent interpretation, lung bergman show some left basilar atelectasis. There is normal cardiac silhouette. Bony thorax is normal. There is no acute process noted. Radiologist also interpreted the x-ray and agrees. CBC was reviewed and was within normal limits. Comprehensive metabolic profile was reviewed and was essentially within normal limits. High-sensitivity troponin was reviewed and was normal at 6. 2-hour repeat high-sensitivity troponin was reviewed and was normal at 7. Patient was advised of her findings. Patient feels better on reevaluation. Patient was instructed to follow-up with her primary care ph ysician in 5 to 7 days. Patient was instructed return if worse in any way. Patient understood and was agreeable with the plan. All questions were answered. Lab Data Labs: Laboratory Results - last 24 hr 12/20/23 12/20/23 14:50 16:57 WBC 5.9 RBC 4.76 Hgb 14.4 Hct 46.7 MCV 98.1 MCH 30.3 MCHC 30.8 L RDW Std Deviation 50.1 H RDW Coeff of Sushant 13.5 Plt Count 186 MPV 11.4 Immature Gran % (Auto) 0.300 Neut % (Auto) 63.9 Lymph % (Auto) 26.2 Pike % (Auto) 7.5 Eos % (Auto) 1.4 Baso % (Auto) 0.7 Absolute Neuts (auto) 3.8 Absolute Lymphs (auto) 1.54 Nucleated RBC % 0 Sodium 138 Potassium 4.3 Chloride 106 Carbon Dioxide 26.0 Anion Gap 6 BUN 22 H Creatinine 0.79 Estim Creat Clear Calc 62.14 Est GFR (MDRD) Af Amer 92 Est GFR (MDRD) Non-Af 76 BUN/Creatinine Ratio 28.0 H Glucose 119 H Calcium 10.0 Total Bilirubin 0.30 AST 27 ALT 13 Alkaline Phosphatase 55 Troponin I High Sens 6 7 Total Protein 7.8 Albumin 4.1 Globulin 3.7 Albumin/Globulin Ratio 1.1 Radiography Diagnostic Testing: Clinical Impression(s) from Imaging Studies Chest X-Ray 12/20/23 14:45 IMPRESSION: Mild increased linear markings at the left lung base suggestive of linear atelectasis. Electronically Signed: Lennox Ellington MD at 15:15 EST , Discharge Plan Triage Chief Complaint: Syncope ED Midlevel Provider: Dio Martins ED Provider: Narinder Fuentes Dx/Rx/DC Orders Clinical Impression: Near syncope, Elevated blood pressure reading Instructions: Causes of Syncope, ED Near-Fainting, Uncertain Cause Prescriptions: No Action atorvastatin 40 MG tablet 40 mg PO QHS acetylcysteine 6,000 MG/30 ML solution 600 mg PO BID amlodipine 5 MG tablet 5 mg PO DAILY amitriptyline 50 MG tablet 50 mg PO DAILY ascorbic acid (vitamin C) [Vitamin C] 500 MG tablet 1,000 mg PO DAILY@0800 levothyroxine 50 MCG tablet 20 mcg PO DAILY biotin [Chris Biotin] 10,000 MCG capsule 10,000 mcg PO DAILY omeprazole 20 MG capsule 20 mg PO DAILY magnesium 200 MG tablet 400 mg PO BID metaxalone 800 MG tablet 800 mg PO BID dldigbsddso-jewcdavjt-dyu C-Mn 1 EACH capsule 1 ea PO BID calcium citrate-vitamin D3 1 EACH tablet 1 ea PO BID chondroitin sulf A sod (bulk) 100 GM powder 1,200 mg miscellaneous BID Multivitamins,Therapeutic Venlafaxine Xr [Effexor Xr] 75 MG capsule 75 mg PO DAILY prednisone 20 mg tablet 20 mg PO DAILY 10 Days Qty: 10 0RF Primary Care Provider: Narinder Crum Referrals: Narinder Crum MD [Primary Care Provider] - Activity Restrictions/Additional Instructions: Please ensure that you drink plenty of fluids. Return for any worsening symptoms. Disposition Disposition: Home, Self Care Discharge Date/Time: 12/20/23 17:52
[2023-12-20 14:53] VITALS: O2SAT 94
[2023-12-20] MEDS: 0.9% Normal Saline (1000mL) 1,000 ML 1000 ML IV (14:54)
[2023-12-20] MEDS: Ondansetron 4 MG/2 ML Vial IV (14:54)
[2023-12-20 15:06] LABS: Absolute Lymphocyte Count 1.54 X10^3/uL (0.83-4.51); Absolute Neutrophil Count 3.8 X10^3/uL (2.0-7.7); Basophil# 0.04 X10^3/uL; Basophil% 0.7 % (0-1); Eosinophil# 0.08 X10^3/uL; Eosinophils% 1.4 % (0-5); Hematocrit 46.7 % (37-47); Hemoglobin 14.4 g/dL (12.0-15.0); Lymphocyte # 1.54 X10^3/ul (0.83-4.51); Lymphocyte % 26.2 % (19-41); Mean Corp Hgb Conc 30.8 g/dL (32-36); Mean Corpuscular Hgb 30.3 pg (27.0-32.0); Mean Corpuscular Volume 98.1 fL (81-99); Mean Platelet Vol. 11.4 fl (6.2-12.0); Monocyte# 0.44 X10^3/uL; Monocyte% 7.5 % (0-10); NRBC Flagged by Analyzer 0 % (0-5); Neutrophil # 3.75 X10^3/uL (2.7-7.7); Neutrophil % 63.9 % (47-70); Platelet Count 186 K/mm3 (150-450); RBC Distribution Width CV 13.5 % (11.6-14.6); RBC Distribution Width SD 50.1 fl (35.1-43.9); Red Blood Count 4.76 M/mm3 (4.2-5.4); White Blood Count 5.9 K/mm3 (4.4-11.0)
--- OUTSIDE RECORDS SUMMARY | 2023-12-20 15:29 | XMS RPT_ITS | CCD ---
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 Name Role Phone OLIVEROS, PRAVEEN A Admitting Unavailable OLIVEROS, PRAVEEN A Attending Unavailable OLIVEROS, PRAVEEN A Primary Care Unavailable OLIVEROS, PRAVEEN A Consulting Unavailable PROVIDER, UNKNOWN Consulting Unavailable BRANDON PARRA PAC Admitting Unavailable BRANDON PARRA PAC Attending Unavailable BRANDON PARRA PAC Primary Care Unavailable OLIVEROS, PRAVEEN A Consulting Unavailable PROVIDER, UNKNOWN Consulting Unavailable KRISTOPHER, CHERY DPM Admitting Unavailable HORN CHERY DPM Attending Unavailable HORN, CHERY DPM Primary Care Unavailable OLIVEROS, PRAVEEN A Consulting Unavailable PROVIDER, UNKNOWN Consulting Unavailable BISI, DR PETROS Salas Admitting Unavailable BISI, DR PETROS Salas Attending Unavailable BISI, DR PETROS Salas Primary Care Unavailable OLIVEROS, PRAVEEN A Consulting Unavailable OLIVEROS, PRAVEEN A Referring Unavailable PROVIDER, UNKNOWN Consulting Unavailable HORN, CHERY DPM Admitting Unavailable HORN, CHERY DPM Attending Unavailable HORN, CHERY DPM Primary Care Unavailable OLIVEROS, PRAVEEN A Consulting Unavailable PROVIDER, UNKNOWN Consulting Unavailable Allergies Allergy Classification Reported Allergen(s) Allergy Type Date of Onset Reaction(s) Facility (1 source) cyclobenzaprine Drug Allergy [facility] Repository (1 source) pantoprazole Drug Allergy [facility] Repository (1 source) Promethazine Drug Allergy [facility] Repository Problems Problem Classification Problem Date Documented Date Episodic/Chronic Acquired foot deformities (1 source) Flat foot [pes planus] (acquired), unspecified foot; Translations: [Flat foot [pes planus] (acquired), unspecified foot] Onset: 03-15-2022 Episodic Other non-traumatic joint disorders (3 sources) Pain in left knee; Translations: [Pain in left knee] Onset: 02-04-2022 Episodic Spondylosis; intervertebral disc disorders; other back problems (3 sources) Other intervertebral disc degeneration, lumbar region; Translations: [Other intervertebral disc degeneration, lumbar region] Onset: 04-07-2022 Chronic Sprains and strains (3 sources) Sprain of unspecified ligament of right ankle, initial encounter; Translations: [Sprain of unspecified ligament of right ankle, initial encounter] Onset: 03-15-2022 Episodic Results Test Name Value Interpretation Reference Range Facil ity Encounters Encounter Date Encounter Type Care Provider Facility Start: 04-07-2022 End: 04-26-2022 ambulatory PRAVEEN OLIVEROS [facility] Start: 03-15-2022 End: 04-13-2022 ambulatory CHERY LOTT [facility] Start: 03-04-2022 End: 03-04-2022 ambulatory CHERY LOTT [facility] Start: 02-18-2022 End: 02-18-2022 Emergency department patient visit DR PETROS MATHEWS [facility] Start: 02-04-2022 End: 02-04-2022 ambulatory BRANDON PARRA [facility] Payers Date Payer Category Payer Unknown [id number] 2.16.84 [id number] 1950 Unknown [id number] 2.16.84 [id number] 1950 Unknown [id number] 2.16.84 [id number] 1950 Unknown [id number] 2.16.84 [id number] 1950 Unknown [id number] 2.16.84 [id number] Medicare [id number] Unknown [id number] Summary Purpose Family History No Family History Records Found Advance Directives No Advanced Directives Records Found Additional Source Comments INFORMATION SOURCE (unrecogn ized section and content) FOR RECORDS PERTAINING TO PATIENTS WHO ARE OR HAVE BEEN ENROLLED IN A CHEMICAL DEPENDENCY/SUBSTANCEABUSE PROGRAM, SOME INFORMATION MAY BE OMITTED. This clinical summary was aggregated from multiple sources. Caution should be exercised in using it in the provision of clinical care. This summary normalizes information from multiple sources, and as a consequence, information in this document may materially change the coding, format and clinical context of patient data. In addition, data may be omitted in some cases. CLINICAL DECISIONS SHOULD BE BASED ON THE PRIMARY CLINICAL RECORDS. [facility]. provides no warranty or guarantee of the accuracy or completeness of information in this document.
[2023-12-20 15:35] LABS: ALB/GLOB Ratio 1.1 RATIO (0.9-2.4); AST(SGOT) 27 U/L (15-37); Alanine Aminotransfer ALT/SGPT 13 U/L (13-56); Albumin, Serum 4.1 g/dL (3.2-5.0); Alkaline Phosphatase 55 U/L (45-117); Anion Gap 6 (5-15); BUN 22 mg/dL (7-18); Chloride 106 mmol/L (98-107); Creatinine, Serum 0.79 mg/dL (0.55-1.02); EST Glomerular Filtration Rate 76 mL/min (>60); Est Glom Filt Rate - Afr Amer 92 mL/min (>60); Estimated Creatinine Clearance 62.14 ml/min; Globulin 3.7 g/dL (2.2-4.2); Glucose 119 mg/dL (74-106); Potassium 4.3 mmol/L (3.5-5.1); Protein, Total 7.8 g/dL (6.4-8.2); Sodium Level 138 mmol/L (136-145); Troponin-I HS (w/2H Reflex) 6 pg/mL (3.0-54.0)
[2023-12-20 16:06] VITALS: BP 145/68; BP 149/88; BP 161/81; PULSE 66; PULSE 68; PULSE 76
[2023-12-20 16:59] LABS: Reflex Troponin-HS? (from REC) Y
[2023-12-20 17:29] LABS: Troponin-I HS 7 pg/mL (3.0-54.0)
[2023-12-20 17:49] VITALS: BP 161/86; PULSE 74; RESP 16; RESP 18; O2SAT 95
== END 2023-12-20 17:52 | disposition home or self-care (01) ==
PROVIDERS: Nurse Practitioner; Emergency Provider Emergency Medicine; PCP Family Medicine; Visit Provider Emergency Medicine
DX: R55 Syncope and collapse (principal); R03.0 Elevated blood-pressure reading, without diagnosis of hypertension; E78.00 Pure hypercholesterolemia, unspecified; Z79.899 Other long term (current) drug therapy
CPT/HCPCS: 71046; 80053; 84484; 85025; 93005; 96361; 96374; 99285; J7030; J2405

== ENCOUNTER → 2024-03-05 | Outpatient (CLI) | payer MEDICARE, OTHER, SELFPAY ==
[2024-03-05 18:34] LABS: T4 Free Direct 0.76 ng/dL (0.76-1.46); Thyroid Stim Hormone (TSH) 1.85 uIU/mL (0.358-3.74)
== END | disposition home or self-care (01) ==
PROVIDERS: PCP Family Medicine; Referring Provider Family Medicine; Visit Provider Family Medicine
DX: K58.9 Irritable bowel syndrome, unspecified (principal); E03.9 Hypothyroidism, unspecified
CPT/HCPCS: 36415; 84439; 84443; 84481; 86003

== ENCOUNTER → 2024-10-30 | Outpatient (CLI) | payer MEDICARE, OTHER, SELFPAY ==
--- NOTE | 2024-10-30 12:34 | BI_ITS ---
MAMMOGRAPHY - BILATERAL SCREENING REASON FOR EXAM: Female, 74 years old. Routine annual screening examination. PERTINENT HISTORY: Non-contributory. Prior bilateral breast reduction surgery TECHNIQUE: Digital bilateral breast jessica (3D mammographic acquisition) in the CC and MLO projections. 2-D mediolateral oblique (MLO) and craniocaudad (CC) views of both breasts were obtained. CAD: Full Field Digital Mammography with Computer Added Detection was performed. COMPARISON: Comparison is made with prior study dated September 22, 2023 and August 31, 2022. FINDINGS: Breast Composition: The breasts are almost entirely fatty. There are no dominant masses or suspicious calcifications. Small bilateral fat-containing axillary lymph nodes. No other significant abnormalities are identified. There has been no significant change since the prior study. BI/SCRN MAMM (CAD)W/JESSICA BILAT IMPRESSION: Stable bilateral screening mammogram. Yearly follow-up mammogram recommended. (A) ASSESSMENT CATEGORY: BIRADS Category 2: Benign. A letter regarding these results will be sent to the patient by the facility within 30 days. Approximately 10% of breast cancers are not detected by mammography. A normal mammogram should not delay biopsy of a clinically suspicious abnormality. [id number] Electronically Signed: Lennox Ellington MD at 13:40 EST ,
--- NOTE | 2024-10-30 12:37 | BD_ITS ---
STUDY: DUAL ENERGY X-RAY ABSORPTIOMETRY / DXA REASON FOR EXAM: Female, 74 years old. M810 TECHNIQUE: Bone Mineral Density (BMD) measurements of lumbar spine and bilateral hips were obtained. COMPARISON: Comparison is made with prior study dated August 31, 2022. FINDINGS: Lumbar Spine (L1-L4): g/cm2 (0.765) / T-score (-1.9) / Z-score (0.2) Findings are suggestive of osteopenia with a moderate fracture risk. Left Femur Total: g/cm2 (0.688) / T-score (-2.1) / Z-score (9 0.4) Left Femoral Neck: g/cm2 (0.556) / T-score (-2.6) / Z-score (-0.6) Right Femur Total: g/cm2 (0.663) / T-score (-2.3) / Z-score (-0.6) Right Femoral Neck: g/cm2 (0.670) / T-score (-1.6) / Z-score (0.4) The T-Scores on the most recent prior examination were: Lumbar Spine (L1-L4): There has been improvement of bone density since the previous examination. Left Femur Total: which represents an improvement of 15.1%. Right Femur Total: which represents an improvement of 8.4%. BD/Dexa Bone Density Study IMPRESSION: The patient is considered osteoporotic as outlined below according to World Jonathon Organization (WHO) criteria with a high fracture risk. There has been improvement of bone density since the previous examination. Reference Information: The T-score is the number of standard deviations above or below the standard which is normal for young adults at their peak bone mineral density. The World Health Organization (WHO) interprets the T-scores as follows: Above -1 Normal bone density Between -1 and -2.5 Osteopenia Equal to / or below -2.5 Osteoporosis As a practical clinical guideline, osteopenia may be graded as follows: Mild -1 through -1.5 Moderate -1.6 through -2.0 Severe -2.1 through -2.4 The Z-score is the number of standard deviations above or below age-matched controls. A Z-score of less than -1.5 would be considered abnormal. References: 1. NIH Osteoporosis and Related Bone Diseases www osteo.org 2. International Society for Clinical Densitometry www iscd.org 3. National Osteoporosis Foundation www nof.org Electronically Signed: Lennox Ellington MD at 13:26 EST ,
== END | disposition home or self-care (01) ==
PROVIDERS: PCP Family Medicine
DX: M81.0 Age-related osteoporosis without current pathological fracture (principal); Z12.31 Encounter for screening mammogram for malignant neoplasm of breast
CPT/HCPCS: 77063; 77067; 77080

== ENCOUNTER → 2025-03-15 | Outpatient (CLI) | payer MEDICARE, OTHER, SELFPAY ==
--- NOTE | 2025-03-15 15:02 | RAD_ITS ---
EXAM: XR Abdomen, 1 View CLINICAL INDICATION: PAIN, CHANGE IN BOWEL HABITS TECHNIQUE: Frontal supine view of the abdomen/pelvis. COMPARISON: No relevant prior studies available. FINDINGS: GASTROINTESTINAL TRACT: Fecal retention in the colon consistent with constipation. No dilation. BONES/JOINTS: Posterior fusion hardware of the lower lumbar spine. No acute fracture. RAD/Abd Inc Decub and/or Erect IMPRESSION: Fecal retention in the colon consistent with constipation. Reading Location: [id number]
[2025-03-19 16:08] LABS: Calprotectin, Stool 146 ug/g (0-120)
== END | disposition home or self-care (01) ==
LOC: MTRAD 14:59 → MTLAB 15:01
PROVIDERS: PCP Family Medicine
DX: R19.4 Change in bowel habit (principal)
CPT/HCPCS: 74019; 83993

== ENCOUNTER 2025-06-13 17:29 | Inpatient (IN) | payer MEDICARE, OTHER, SELFPAY ==
[2025-06-13] VITALS (14 sets, daily range): BP systolic 131–165; BP diastolic 77–95; PULSE 57–82; RESP 16–20; TEMP 36.4–36.9; O2SAT 97–100; BMI 23.6; BMI 23.8
--- NOTE | 2025-06-13 17:44 | ED.VIS.CHEST ---
HPI History of Present Illness Chief Complaint: Chest Other Detail of Chief Complaint: Exertional chest pain that started 2 weeks ago Informant: patient Onset/Context/Timing Onset: Today, Yesterday and Weeks Activity at onset: sudden and activity on onset (Walking up an incline. Yesterday she did not walk up an incline nor did she walk up an incline today) Timing: Intermittent Quality: Positive for Pressure Location: Substernal Current Severity: Mild Maximum Severity: Moderate Worsened By: Exertion; Not Worsened By Movement of Arm, Movement of Torso, Eating, Palpation, Breathing or Coughing Relieved By: Rest Associated Symptoms: Positive for Dyspnea; Negative for Nausea, Vomiting, Diaphoresis, Cough, Fever, Lightheadedness, Acid Reflux or Palpitations Narrative Narrative: Patient is a 75-year-old woman. She has history of hypercholesterolemia and hypothyroidism. She also has a history of GERD. Approximately 2 weeks ago while walking up an incline she developed chest pressure. The chest pressure resolved with rest. Yesterday was the first time she got the chest pressure when she was walking on a level plane. She normally walks 3 miles in 1 hour. The episode that occurred yesterday was after half mile. She had a similar episode today. She denied diaphoresis. She states she was sweating because it is hot. She still has some mild discomfort in her chest. She does have a history of GERD. This is different than her GERD. She denies radiation to her jaw or shoulders. It does radiate to her neck anteriorly. She denies black or maroon-colored stool. This episode of pressure started at approximately 1545. Prior Similar Symptoms: No Recent Illness/Hospitalization: No CVD Risk Factors: Positive for Hypercholesterolemia; Negative for Hypertension, Diabetes, Family History 1' </=55 or Smoking PE Risk Factors: Negative for Recent Travel/Surgery, Recent Immobilization, Prior DVT or PE, Cancer or OCP + Smoking + >/=35 TAD Risk Factors: Positive for Hypertension; Negative for Marfan's Syndrome or Family History [facility] Medical History (Updated 06/13/25 @ 19:[address] Hui Morel MD) Chronic idiopathic constipation CKD (chronic kidney disease), stage II GERD (gastroesophageal reflux disease) IBS (irritable bowel syndrome) HTN (hypertension) Raynaud disease Fibromyalgia Cataract High cholesterol Hypothyroidism Home Medications ?Medication ?Instructions ?Recorded ?Last Taken ?Type amitriptyline 50 mg tablet 50 mg PO DAILY 11/12/15 06/12/25 History alendronate 70 mg tablet 70 mg PO .weekly 01/25/25 06/12/25 History levothyroxine 75 mcg tablet 75 mcg PO DAILY 01/25/25 06/13/25 History nifedipine 30 mg tablet,extended 30 mg PO DAILY 01/25/25 06/13/25 History release pantoprazole 20 mg tablet,delayed 20 mg PO QDAY 01/25/25 06/13/25 History release tizanidine 4 mg tablet 4 mg PO QHS 01/25/25 06/12/25 History tramadol 50 mg tablet 50 mg PO PRN 01/25/25 Unknown History lubiprostone 24 mcg capsule 24 mcg PO BID 06/13/25 06/13/25 History venlafaxine 37.5 mg 37.5 mg PO DAILY depression 06/13/25 Unknown History capsule,extended release 24 hr Allergy/AdvReac Type Severity Reaction Status Date / Time cyclobenzaprine HCl (From AdvReac Other Verified 06/13/25 17:31 Flexeril) promethazine (From Phenergan) AdvReac Other Verified 06/13/25 17:31 Lcczluv-NNG-CuK Reductase AdvReac Pain in Verified 06/13/25 17:31 Inhibitor joints Family History (Updated 06/13/25 @ 19:[address] Hui Morel MD) Father Heart disease CAD (coronary artery disease) Hypertension Myocardial infarction HLD (hyperlipidemia) Mother Hypertension Surgical History Previous back surgery H/O wrist surgery History of ankle surgery H/O shoulder surgery Social History (Updated 06/13/25 @ 19:[address] Hui Morel MD) household members: spouse Smoking Status: Never smoker alcohol intake: current alcohol intake frequency: holidays/special occasions only substance use type: does not use ROS ROS ED Constitutional Constitutional ED: Denies chills, fever(s), subjective or sweats Eyes Eyes: Reports none; Denies blurry vision or change in vision Cardiovascular Cardiovascular: Reports as per HPI; Denies orthopnea, palpitations, paroxysmal nocturnal dyspnea or racing heartbeat Respiratory/Chest Respiratory/Chest: Reports dyspnea; Denies dyspnea on exertion, orthopnea or paroxysmal nocturnal dyspnea Gastrointestinal Gastrointestinal: Denies abdominal pain, nausea or vomiting Musculoskeletal Musculoskeletal: Denies back pain or neck pain Integumentary Denies rash Neurologic Neurologic: Denies headache(s) or paresthesias Psychiatric Psychiatric: Denies anxiety or depression Endocrine Endocrinology: Denies cold intolerance or heat intolerance Hematologic/Lymphatic Hematologic/Lymphatic: Denies easy bleeding or easy bruising EXAM Physical Exam Const Vital Signs: 06/13/25 17:30 06/13/25 17:43 06/13/25 17:43 Temperature 98 F Temperature Source Oral Pulse Rate 76 Respiratory Rate 18 Respiratory Effort Normal Blood Pressure 157/89 H Blood Pressure Mean 111 Pulse Ox 97 Oxygen Delivery Method Room Air 06/13/25 17:55 06/13/25 18:05 06/13/25 18:13 Temperature Temperature Source Pulse Rate 77 72 82 Respiratory Rate Respiratory Effort Blood Pressure 160/85 H 131/85 H 137/85 H Blood Pressure Mean Pulse Ox Oxygen Delivery Method Positive well nourished and well developed General Appearance ED: well developed and NAD HEENT Reports TM's clear Tympanic Membrane ED: Yes TM's clear Eyes PERRL and EOMs intact bilaterally General Eye ED: Negative for pale conjunctiva or scleral icterus Neck no lymphadenopathy, supple and no JVD Chest Wall inspection of chest normal and palpation of chest normal Resp normal respiratory effort and clear to auscultation bilaterally Cardio regular rate, regular rhythm, S1 normal heart sound, S2 normal heart sound and no murmurs GI normal to inspection, nondistended, normoactive bowel sounds, soft to palpation, non-tender and non-distended Back/Spine no CVA tenderness Extremity normal to inspection General Extremety ED: Negative for edema or pulses abnormal General Extremity: Negative for edema or pulses abnormal Neuro oriented x3 and CN's II-XII intact bilaterally Sensorium / Orientation: awake and alert Psych mental status grossly normal Skin no rashes or lesions noted and no wounds Heart Score History: Highly Suspicious ECG: Nonspecific Repolarization Age: >/= 65 years Risk Factors: 1 or 2 Risk Factors Troponin: >1 - <3 Normal Limit Score: 7 MDM MDM MDM Narrative Medical decision making narrative: Patient with classic exertional angina over the past 2 weeks that is now precipitated with less activity. Will rule out non-STEMI and talk with cardiology since in my opinion patient has a saumya score of 3 and needs a heart cath. Her EKG reveals changes from 2023. Lab Data Attestation: I reviewed the patient's lab results. Lab results narrative: CBC unremarkable. Basic metabolic panel is unremarkable. Glucose slightly elevated at 112. Troponin is elevated at 93. Since patient still having chest discomfort we will start nitroglycerin drip and anticoagulate with heparin. Case was discussed with Dr. Fontaine. He is in agreement. Plan is cardiac catheterization tomorrow. Labs: Laboratory Results - last 24 hr 06/13/25 17:43 WBC 6.4 RBC 4.32 Hgb 13.6 Hct 41.6 MCV 96.3 MCH 31.5 MCHC 32.7 RDW Std Deviation 48.3 H RDW Coeff of Sushant 13.5 Plt Count 264 MPV 10.6 Immature Gran % (Auto) 0.300 Neut % (Auto) 53.7 Lymph % (Auto) 36.0 [place] % (Auto) 8.9 Eos % (Auto) 0.6 Baso % (Auto) 0.5 Absolute Neuts (auto) 3.4 Absolute Lymphs (auto) 2.31 Nucleated RBC % 0 Sodium 136 Potassium 4.4 Chloride 99 Carbon Dioxide 26.9 Anion Gap 11 BUN 23 H Creatinine 0.71 Estim Creat Clear Calc 51.04 Est GFR (MDRD) Non-Af 89 BUN/Creatinine Ratio 32.4 H Glucose 112 H Calcium 9.4 Magnesium 2.0 Troponin T High Sens 93 H* Radiography Chest X-Ray - ED: 1 View, Read by ED Physician ([id number]), Normal, Heart, Lungs, Mediastinum, Bony Structures and No Acute Disease Diagnostic Testing: Clinical Impression(s) from Imaging Studies Chest X-Ray 06/13/25 17:48 IMPRESSION: No focal consolidations. Reading Location: [facility] EKG Initial EKG: Attestation: I personally reviewed and interpreted this EKG as follows: Interpretation: Sinus Rhythm (Rate is 77. [place] interval is under 60 ms cures duration 88 ms. QT duration 190 ms. [place] is normal. There is nonspecific changes noted and these are new since December 20, 2023) Management Discussion w/another healthcare provider: Hospitalist (Will speak with the night physician Dr. Hui Morel for admission for acute coronary syndrome/non-STEMI. Patient was admitted ICU since she is on nitro and heparin drip.) and Hydroelectric Systems Technician (Spoke with refinery process engineer. Documentations in the MDM portion of the EMR.) Treatment and Re-Evaluation :: I was informed patient had no improvement with 3 sublingual nitro. Will treat her pressure with IV morphine. Critical Care Time Critical Care Time: Yes Critical care time (excluding procedures): 30-74 minutes (32), Including time spent: (History, physical, documentation, independent to potation of laboratory results and chest x-ray), Discussing w/Patient &/or Family/Senior Firmware Engineer, Discussing w/Consultants (Cardiology and hospitalist), Arranging Admission or Transfer and - (Case management for arrangements to help drive home since he has dementia.) Discharge Plan Dx/Rx/DC Orders Clinical Impression: ACS (acute coronary syndrome), Elevated troponin, Exertional angina, Hypercholesterolemia Disposition Disposition: Acute Care Hospital [facility] Discharge Date/Time: 06/13/25 20:11
--- NOTE | 2025-06-13 17:48 | RAD_ITS ---
PROCEDURE: CHEST 1 VIEW (PORTABLE) 06/13/2025 REASON FOR EXAM: CHEST PAIN TECHNIQUE: Frontal view of the chest. COMPARISON: 12/20/2023 FINDINGS: No focal consolidation. No pleural effusion or pneumothorax. Cardiac silhouette is within normal limits. Calcified aortic arch. Calcific tendinopathy of the right shoulder. RAD/Chest 1 View (Portable) IMPRESSION: No focal consolidations. Reading Location: [id number]
[2025-06-13] MEDS: Nitroglycerin SL (ED/IMG/CATH) 0.4 MG TABLET SL ×3 (17:55→18:13)
[2025-06-13 18:18] LABS: Hematocrit 41.6 % (37-47); Hemoglobin 13.6 g/dL (12.0-15.0); Immature Granulocytes Count 0.020 X10^3/uL (0.0-0.0); Mean Corp Hgb Conc 32.7 g/dL (32-36); Mean Corpuscular Volume 96.3 fL (81-99); Mean Platelet Vol. 10.6 fl (6.2-12.0); NRBC Flagged by Analyzer 0 % (0-5); Platelet Count 264 K/mm3 (150-450); RBC Distribution Width CV 13.5 % (11.6-14.6); RBC Distribution Width SD 48.3 fl (35.1-43.9); Red Blood Count 4.32 M/mm3 (4.2-5.4); White Blood Count 6.4 K/mm3 (4.4-11.0)
[2025-06-13 18:40] LABS: Anion Gap 11 (5-15); BUN 23 mg/dL (4-19); BUN/Creat Ratio 32.4 RATIO (10-20); Calcium,Total 9.4 mg/dL (7.6-11.0); Carbon Dioxide 26.9 mmol/L (21.0-32.0); Chloride 99 mmol/L (98-108); Estimated Creatinine Clearance 51.04 ml/min (50-250); Glucose 112 mg/dL (70-99); Potassium 4.4 mmol/L (3.3-5.1)
[2025-06-13 18:47] LABS: Troponin T High Sensitivity 93 ng/L (<=14)
--- NOTE | 2025-06-13 19:15 | HP.PCM.HOS_ITS ---
HPI - General General Date of Admission: 06/13/25 Date of Service: 06/13/25 Chief Complaint: Chest pain HPI Narrative The patient is a 75 y/o F w/ PMHx: Raynaud disease, HTN, HLD, Hypothyroidism, Fibromyalgia, Chronic idiopathic constipation who presents to the [facility] ED on 06/13/25 with exertional chest pain starting ~ 2 weeks prior primarily with activity prior however on day prior to presentation she had similar symptoms at rest also, noted to be intermittent, pressure like in sensation in the primarily the anterior neck eventually transitioning into the chest specifically in the substernal region with minimally associated dyspnea per patient specific report and no concurrent no nausea or emesis prompting eventual ED evaluation. She did note she was sweating while she was outside but this was ongoing and secondary to heat. She notes this is different than her chronic GERD symptoms. Work-up in the ED included T98, HR 76, BP 157/89, RR 18, 97% on RA with most recent repeat VS HR 82, BP 137/85, CBC w/ WBC 6.4, Hgb 13.6, Plts 264 without shift, BMP with BUN/Cr 23/0.71, GFR 89, glucose 112, troponin 93, CXR w/ no acute cardiopulmonary findings, EKG with SR with nonspecific ST-T changes new from prior 11/2023 EKG noted prior. ED physician discussed case with [employer] Erp Architect. In the ED patient ministered full-strength aspirin therapy, heparin bolus and drip in addition to sublingual nitroglycerin eventually transition to a nitroglycerin drip as well as morphine 4 mg IV x 1. [facility] Medical History (Updated 06/13/25 @ 19:[address] Hui Morel MD) Chronic idiopathic constipation CKD (chronic kidney disease), stage II GERD (gastroesophageal reflux disease) IBS (irritable bowel syndrome) HTN (hypertension) Raynaud disease Fibromyalgia Cataract High cholesterol Hypothyroidism Home Medications ?Medication ?Instructions ?Recorded ?Last Taken ?Type amitriptyline 50 mg tablet 50 mg PO DAILY 11/12/15 Unk nown History atorvastatin 40 mg tablet 40 mg PO QHS 11/12/15 Unknow n History alendronate 70 mg tablet mg PO 01/25/25 Unknown Histo ry levothyroxine 75 mcg tablet mcg PO 01/25/25 Unknown Hi story nifedipine 30 mg tablet,extended mg PO DAILY 01/25/25 Unknown History release pantoprazole 20 mg tablet,delayed 20 mg PO QDAY Unknown History release tizanidine 4 mg tablet mg PO 3XD 01/25/25 Unknown H istory tramadol 50 mg tablet mg PO 01/25/25 Unknown Histo ry venlafaxine 37.5 mg mg PO DAILY 01/25/25 Unknown History capsule,extended release 24 hr Allergy/AdvReac Type Severity Reaction Status Date / Time cyclobenzaprine HCl (From AdvReac Other Verified 06/13/25 17:31 Flexeril) promethazine (From Phenergan) AdvReac Other Verified 06/13/25 17:31 Oylmsld-ESJ-AoY Reductase AdvReac Pain in Verified 06/13/25 17:31 Inhibitor joints Family History (Updated 06/13/25 @ 19:[address] Hui Morel MD) Father Heart disease CAD (coronary artery disease) Hypertension Myocardial infarction HLD (hyperlipidemia) Mother Hypertension Surgical History Previous back surgery H/O wrist surgery History of ankle surgery H/O shoulder surgery Social History (Updated 06/13/25 @ 19:[address] Hui Morel MD) household members: spouse Smoking Status: Never smoker alcohol intake: current alcohol intake frequency: holidays/special occasions only substance use type: does not use ROS ROS Narrative Admission Review of Systems: CONSTITUTIONAL: No weight loss, fever, chills, + weakness or fatigue. HEENT: Eyes: No visual loss, blurred vision, double vision or yellow sclerae. Ears, Nose, Throat: No hearing loss, sneezing, congestion, runny nose or sore throat. SKIN: No rash or itching, lesions, wounds. CARDIOVASCULAR: + Chest pain. No palpitations, edema, orthopnea, syncopal events. RESPIRATORY: + Minimal exertional dyspnea. No cough or sputum, wheezing, hemoptysis. GASTROINTESTINAL: + Chronic constipation. No anorexia, nausea, vomiting or diarrhea, abdominal pain, melena, BRBPR. GENITOURINARY: No dysuria, frequency, urgency or retention. NEUROLOGICAL: No headache, dizziness, syncope, paralysis, ataxia, numbness or tingling in the extremities, focal weakness, change in bowel or bladder control, seizure. MUSCULOSKELETAL: + muscle, back pain, joint pain or stiffness. HEMATOLOGIC: No anemia, bleeding or bruising. LYMPHATICS: No enlarged nodes. No history of splenectomy. PSYCHIATRIC: + History of Anxiety and depression ENDOCRINOLOGIC: No cold or heat intolerance. No polyuria or polydipsia. ALLERGIES: No history of asthma, hives, eczema or rhinitis. Vital Signs Vital Signs Vital Signs: 06/13/25 17:30 06/13/25 17:43 06/13/25 17:43 Temperature 98 F Temperature Source Oral Pulse Rate 76 Respiratory Rate 18 Respiratory Effort Normal Blood Pressure 157/89 H Blood Pressure Mean 111 Pulse Ox 97 Oxygen Delivery Method Room Air 06/13/25 17:55 06/13/25 18:05 06/13/25 18:13 Temperature Temperature Source Pulse Rate 77 72 82 Respiratory Rate Respiratory Effort Blood Pressure 160/85 H 131/85 H 137/85 H Blood Pressure Mean Pulse Ox Oxygen Delivery Method Weight Weight: 133 lb 9 oz Body Mass Index (BMI) 23.6 Physical Exam Narrative Physical Examination: General: Awake, alert, oriented x 3 and cooperative, seated upright in the ED bed, mildly fatigued, notes chest discomfort is significantly improved, 3-4 out of 10 in severity. Skin: Normal color, normal turgor, no icterus, no cyanosis. HEENT: AT/NC, EOMI, PERRLA, MMM, no carotid bruits or JVD noted. Lungs: CTA bilaterally, moderate effort, mild decrease BL bases, no rales, ronchi or wheezing. Heart: Regular rate and rhythm; no gallop, rub audible. Abdomen: Soft, NTTP, mildly hyperactive BS, no marked distention, no appreciated HSM. Extremities: No cyanosis, clubbing, or edema. Neurological: Patient awake, alert, oriented as noted, cognitive function intact; pupils equally reactive to light and accommodation, cranial nerves grossly normal, moving all 4 extremities, no focal deficits, strength mildly to moderately globally creased. Psychiatric: Affect appears mildly fatigued otherwise normal, no acute evidence of depressive or anxiety feelings but does have underlying history. Results Lab / Micro Data 06/13/25 19:30 06/13/25 17:43 Labs: Laboratory Results - last 24 hr 06/13/25 17:43: WBC 6.4, RBC 4.32, Hgb 13.6, Hct 41.6, MCV 96.3, MCH 31.5, MCHC 32.7, RDW Std Deviation 48.3 H, RDW Coeff of Sushant 13.5, Plt Count 264, MPV 10.6, Immature Gran % (Auto) 0.300, Neut % (Auto) 53.7, Lymph % (Auto) 36.0, [place] % (Auto) 8.9, Eos % (Auto) 0.6, Baso % (Auto) 0.5, Absolute Neuts (auto) 3.4, Absolute Lymphs (auto) 2.31, Nucleated RBC % 0, Sodium 136, Potassium 4.4, Chloride 99, Carbon Dioxide 26.9, Anion Gap 11, BUN 23 H, Creatinine 0.71, Estim Creat Clear Calc 51.04, Est GFR (MDRD) Non-Af 89, BUN/Creatinine Ratio 32.4 H, G lucose 112 H, Calcium 9.4, Troponin T High Sens 93 H* Imaging Radiology Impression Chest X-Ray 06/13/25 17:48 IMPRESSION: No focal consolidations. Reading Location: [facility] Assessment & Plan Assessment/Plan (1) NSTEMI, initial episode of care: PLAN: Plan The patient is a 75 y/o F w/ PMHx: Raynaud disease, HTN, HLD, Hypothyroidism, Fibromyalgia, Chronic idiopathic constipation who presents to the [facility] ED on 06/13/25 with exertional chest pain starting ~ 2 weeks prior primarily with activity prior however on day prior to presentation she had similar symptoms at rest also, noted to be intermittent, pressure like in sensation in the primarily the anterior neck eventually transitioning into the chest specifically in the substernal region with minimally associated dyspnea per patient specific report and no concurrent no nausea or emesis prompting eventual ED evaluation. #1. Chest Pain w/ Acute NSTEMI: EKG in ED w/ sinus rhythm with nonspecific ST-T changes new from previous EKG, CXR w/ no acute cardiopulmonary findings. Trop elevated, initial 93. Will admit to the ICU given usage of nitroglycerin drip ongoing, will continue cardiology consultation, maintain on a monitored bed, continue serial cardiac enzymes and EKGs. Obtain magnesium level. Will continue heparin drip. Continue medical management w/ daily baby asa, add low-dose BB with medicine discretion changes per cardiology service, continue home statin w/ AM FLP. ECHO requested. Cardiology consulted, plan for cardiac catheterization. Maintain NPO after midnight. ASA, NG, morphine. #2. Hypertension: Adding low-dose beta-karlo as noted with cardiology discretion for changes, holding nifedipine w/ NG drip usage as noted, PRN hydralazine. #3. Hyperlipidemia: Unable to tolerate statins per discussion with patient, will obtain AM FLP. May need consider Zetia as an option depending on results and cardiology preference. #4. Hypothyroidism: Will continue patient levothyroxine regimen. #5. Raynaud's disease: Will continue patient nifedipine regimen. #6. Anxiety and depression: Will continue patient venlafaxine regimen. #7. GERD: Will continue patient on PPI. #8. Chronic Kidney Disease Stage II per GFR trend: Admission BUN/Cr 23/0.71, GFR 89, baseline renal function primarily 0.7-0.8, repeat BMP in AM. #9. Chronic idiopathic constipation: Patient notes she is on a newer medication but unclear of the name and states it is not working, discussed possible options and at this point we will maintain on twice daily MiraLAX and senna docusate combination. #10. DVT prophylaxis: Heparin drip. #11. CODE status: Patient GAGAN is her as a primary and her son is a and living will is currently in place. Discussed CODE status at length including difference between FULL code, DNR-CCA and DNR-CC status. Following discussions about the differences in these status, requested Full Code status. Advanced Care Planning Face to Face Time: 16 minutes. Charges/Coding Visit Charges Inpatient E&M: 57365 Init Hosp L3 Procedures Hospitalists Procedures: 01827 Advncd Care Plan 30 Min
[2025-06-13] MEDS: Heparin Injection (Vial) 5,000 UNIT/ML VIAL 3500 UNIT IV (19:18)
[2025-06-13] MEDS: HEPARIN/D5w 25,000 UNITS 25,000 UNITS/250 ML IV.SOLN. 7.3 UNITS CONT INF (19:22)
--- NOTE | 2025-06-13 19:23 | EKG12_ITS ---
Test Reason : Blood Pressure : */* mmHG Vent. Rate : 77 BPM Atrial Rate : 77 BPM P-R Int : 160 ms QRS Dur : 88 ms QT Int : 390 ms P-R-T Axes : 65 55 55 degrees QTcB Int : 441 ms Normal sinus rhythm Nonspecific T wave abnormality Abnormal ECG Confirmed by KHADIJAH NUÑEZ, RILEY ([id number]), technical writer and editor ENZO PATE ([id number]) on 06/17/2025 9:41:04 AM Referred By: MILES Confirmed By: RILEY LUCIO MD
[2025-06-13] MEDS: Nitroglycerin Infusion 250 ML 3 MG CONT INF (19:25)
[2025-06-13 19:43] LABS: Hematocrit 39.1 % (37-47); Hemoglobin 12.7 g/dL (12.0-15.0); Immature Granulocytes Count 0.010 X10^3/uL (0.0-0.0); Mean Corp Hgb Conc 32.5 g/dL (32-36); Mean Corpuscular Volume 96.5 fL (81-99); Mean Platelet Vol. 10.4 fl (6.2-12.0); NRBC Flagged by Analyzer 0 % (0-5); Platelet Count 241 K/mm3 (150-450); RBC Distribution Width CV 13.5 % (11.6-14.6); RBC Distribution Width SD 48.6 fl (35.1-43.9); Red Blood Count 4.05 M/mm3 (4.2-5.4); White Blood Count 5.7 K/mm3 (4.4-11.0)
[2025-06-13 19:48] LABS: Magnesium 2.0 mg/dL (1.5-2.2)
[2025-06-13 20:00] LABS: Prothrombin Time (Protime)PT. 15.2 SECONDS (11.7-14.9)
[2025-06-13 20:01] LABS: Partial Thromboplast Time 27.1 Seconds (24.1-36.2)
--- NOTE | 2025-06-13 20:05 | CASEMGMT ---
Care Management Face to Face with patient for initial transition planning/care coordination assessment in the ED. This entry writer introduced self and role at [facility]. Patient alert and oriented. Patient willing to participate in assessment and is able to answer all questions appropriately. Patient's , Tomasz (goes by Pat), was bedside; permission given to speak in front of Tomasz. Care providers, pharmacy, and demographics verified. Admitting Diagnosis: NSTEMI, initial episode of care Other diagnosis history: Raynaud disease, HTN, HLD, Hypothyroidism, Fibromyalgia, Chronic idiopathic constipation PCP: Narinder Crum Specialists: Elie, pain management. Patient states also going to a digestive health center in [place]. Preferred Pharmacy: [facility] Insurance: Medicare A B (primary). [employer] (secondary). Prescription Benefit: yes Living Will/HPOA: none on file. Tomasz, is primary. Salvador, son is secondary. LNOK: , Tomasz and son, Salvador. Living Arrangements: lives with in a 1 story home with no steps to enter. Independent at baseline with all ADLs/IADLs. Transportation: patient drives DME: none (on O2 2L in the ED for comfort) HHC: none SNF/Rehab: none Community Resources: none Patient goals: Patient wishes to discharge home, denies need for home health care at this time. Patient denies any further needs or concerns at this time. Disposition Plan: admission to acute; RN CM/SW to follow for discharge planning needs that may arise. Kika Camacho, BODY STYLIST, BEE PRODUCER
--- NOTE | 2025-06-13 20:13 | CM.ED ---
Social work Reason for referral: needs a ride home Referral source: Dr Ajay OLMOS was approached by Dr. Moss due to patient expressing concern regarding patient's likely admission and patient's having Alzheimer's. SW entered patient's room, introducing self and role at [facility]. Patient welcomed SW visit and confirmed being concerned with patient's , Pat, making it out of the hospital to get to the car. SW confirmed that Pat did not need a ride home by anyone else, but just needed walked out to the parking lot to ensure Pat did not get lost in the hospital. Patient confirmed feeling confident in Pat's ability to drive home this evening as long as it was before dark, but patient stated it would be helpful if SW could find someone to walk patient to the door they entered (the pharmacy entrance). When the time came to take patient to acute, SW walked Pat to the pharmacy door and walked Pat out of the building. Pat thanked SW for time spent with patient and Pat this evening. No further needs identified. Kika Camacho, UNIT OPERATOR, GREASE REFINING SUPERVISOR
--- NOTE | 2025-06-13 20:35 | ECHOD_ITS ---
Reason For Study Reason For Study: NSTEMI Procedure This was a 2D Doppler, Color Flow transthoracic echocardiogram. Exam performed portable in ICU/CCU. Left Ventricle Normal LV size. The left ventricular ejection fraction is 45 %. Stage 1 diastolic dysfunction. Mid-Anterior : Hypokinetic. [place] : Hypokinetic. Mid-anteroseptal : Hypokinetic. There are regional wall motion abnormalities as specified. Right Ventricle Normal RV size. Normal systolic function. Atria The left and right atria are normal. Normal right atrium. Mitral Valve Normal mitral valve. Tricuspid Valve Normal tricuspid valve. Mild (1+) tricuspid valve insufficiency. Pulmonary artery systolic pressure is 28 mmHg. Aortic Valve Trisinus/trileaflet aortic valve. Pulmonic Valve Normal pulmonic valve. Great Vessels Normal aortic root. The pulmonary artery is normal size. Inferior vena cava collapse with respiration. Pericardium/Pleural No pericardial effusion. MMode/2D Measurements & Calculations LVIDd: 4.3 cm IVSd: 0.97 cm LVOT diam: 1.9 cm LVIDs: 3.3 cm LVPWd: 0.98 cm LVOT area: 3.0 cm2 RVDd: 3.5 cm FS: 24.6 % Ao root diam: 3.4 cm LAV(MOD-bp): 30.9 ml LVAd ap4: 25.4 cm2 LAV(MOD-bp) Indexed: 18.7 ml/m2 LVLd ap4: 7.5 cm LAV(MOD-sp2): 29.1 ml EDV(MOD-sp4): 69.7 ml LAV(MOD-sp4): 32.0 ml EDV(sp4-el): 72.6 ml LVAs ap4: 17.3 cm2 LVLs ap4: 6.7 cm ESV(MOD-sp4): 37.3 ml ESV(sp4-el): 37.8 ml EF(MOD-sp4): 46.4 % EF(sp4-el): 47.8 % LVAd ap2: 26.7 cm2 SV(MOD-sp4): 32.3 ml SV(MOD-sp2): 44.0 ml LVLd ap2: 8.0 cm SI(MOD-sp4): 19.6 ml/m2 SI(MOD-sp2): 26.7 ml/m2 EDV(MOD-sp2): 75.8 ml EDV(sp2-el): 75.5 ml LVAs ap2: 16.4 cm2 LVLs ap2: 7.0 cm ESV(MOD-sp2): 31.8 ml ESV(sp2-el): 32.4 ml EF(MOD-sp2): 58.1 % SV(sp4-el): 34.7 ml LA A4 area: 13.2 cm2 RA A4 area: 9.0 cm2 TAPSE: 2.6 cm Doppler Measurements & Calculations MV E max neto: 51.7 cm/sec Lat Peak E' Neto: 5.0 cm/sec Med Peak E' Neto: 4.8 cm/sec MV A max neto: 107.5 cm/sec E/E' lat: 10.4 E/E' med: 10.8 MV E/A: 0.48 Ao V2 max: 130.6 cm/sec LV V1 max: 95.3 cm/sec SV(LVOT): 68.8 ml Ao max P.8 mmHg LV V1 max P.6 mmHg Ao V2 mean: 90.0 cm/sec LV V1 mean P.1 mmHg Ao mean P.7 mmHg LV V1 mean: 69.2 cm/sec Ao V2 VTI: 30.3 cm LV V1 VTI: 23.3 cm AV (velocity ratio): 0.77 CHRISTOPHE(I,D): 2.3 cm2 CHRISTOPHE(V,D): 2.2 cm2 PA V2 max: 77.3 cm/sec TR max neto: 244.2 cm/sec TR max P.9 mmHg ECHO/Echo Complete Interpretation Summary Normal LV size. The left ventricular ejection fraction is 45 %. Stage 1 diastolic dysfunction. Mild (1+) tricuspid valve insufficiency. There are regional wall motion abnormalities as specified. Ordering Physician: Hui Morel Referring Physician: Narinder Crum MD Performed By: Annette Osullivan RDCS
[2025-06-13] MEDS: Polyethylene Glycol 3350 17 GM PACKET PO (21:34)
[2025-06-13] MEDS: Senna/Docusate Sodium 1 Tablet 2 TABLET PO (21:34)
[2025-06-13] MEDS: 0.9% Normal Saline (1000mL) 1,000 ML 100 ML IV (21:50)
--- OUTSIDE RECORDS SUMMARY | 2025-06-13 23:16 | XMS RPT_ITS | CCD ---
Author Organization [facility] CliniSytx Care Team Providers Care Sail Finisher Hand Name Role Phone PRAVEEN CRUM A Admitting Unavailable CRUM, PRAVEEN A Attending Unavailable CRUM, PRAVEEN A Primary Care Unavailable CRUM, PRAVEEN A Consulting Unavailable PROVIDER, UNKNOWN Consulting Unavailable BRANDON SEXTON PAC Admitting Unavailable BRANDON SEXTON PAC Attending Unavailable BRANDON SEXTON PAC Primary Care Unavailable CRUM, PRAVEEN A Consulting Unavailable PROVIDER, UNKNOWN Consulting Unavailable KRISTOPHER, CHERY DPM Admitting Unavailable HORNCHERY DPCarmenza Attending Unavailable KRISTOPHER CHERY DPM Primary Care Unavailable CRUM, PRAVEEN A Consulting Unavailable PROVIDER, UNKNOWN Consulting Unavailable BISI, DR JACE Salas Admitting Unavailable BISI, DR JACE Salas Attending Unavailable BISI, DR JACE Salas Primary Care Unavailable CRUM, PRAVEEN A Consulting Unavailable CRUM, PRAVEEN A Referring Unavailable PROVIDER, UNKNOWN Consulting Unavailable HORN, CHERY DPM Admitting Unavailable HORN, CHERY DPM Attending Unavailable HORN, CHERY DPM Primary Care Unavailable CRUM, PRAVEEN A Consulting Unavailable PROVIDER, UNKNOWN Consulting Unavailable Dr. Praveen Crum Primary Care Provider Dr. Praveen Crum Referring Provider [phone] BRAYDEN Hernandez Attending Provider Dr. Praveen Crum MD Primary Care Provider ANNETTE TRACY Attending Provider [phone] ANNETTE TRACY Referring Provider [phone] Dr. Praveen Crum MD Referring Provider [phone] Ruthann Beaulieu Attending Provider Dr. Edil Hong MD Attending Provider PRAVEEN CRUM MD Primary Care Unavailable RUTHANN HERRON Attending Unavailable Dr. Praveen Crum MD Primary Care Provider KRYSTEN MARIE Attending Provider [phone] KRYSTEN MARIE Referring Provider Praveen Crum Primary Care Unavailable DAVID, EDDIE Referring Unavailable DAVID, EDDIE Attending Unavailable Radames, Praveen Primary Care Unavailable DAVID, EDDIE Referring Unavailable DAVID, EDDIE Attending Unavailable Radames, Praveen Referring Unavailable Radames, Praveen Primary Care Unavailable Ruthann Herron Attending Unavailable Radames, Praveen Primary Care Unavailable Edil Hong Attending Unavailable Radames NUÑEZ, Dr. Barcenas Primary Care Provider Dr. Efren Moss MD Emergency Provider Maria Teresa NUÑEZ, Dr. Hui Carias Admit Provider Maria Teresa NUÑEZ, Dr. Hui Carias Attending Provider Allergies Allergy Classification Reported Allergen(s) Allergy Type Date of Onset Reaction(s) Facility (13 sources) cyclobenzaprine; Translations: [cyclobenzaprine HCl] Drug Allergy 11-12-20 15 Other [facility] Comment on above: FEEL DISCONNECTED (12 sources) Promethazine Drug Allergy 12-09-19 22 Other [facility] (13 sources) Hbowall-Zmn-Dgq Reductase Inhibitor; Translations: [Fofyjvw-Klp-Cev Reductase Inhibitor] Propensity to adverse reactions 12-09-19 22 Pain in joints [facility] (1 source) cyclobenzaprine Drug Allergy [facility] Repository (1 source) pantoprazole Drug Allergy [facility] Repository (1 source) Promethazine Drug Allergy [facility] Repository (1 source) Promethazine Drug Allergy 01-26-20 25 [facility] Repository Medications Current Medications Medication Drug Class(es) Dates Sig (Normalized) Sig (Original) alendronic acid 70 mg oral tablet (3 sources) Bisphosphonate Start: 01-25-2025 take 1 tablet by mouth every week Alendronate 70 mg tablet Active 70 mg PO .weekly January 25, 2025 1:00am Take on Wednesdays amitriptyline hydrochloride 50 mg oral tablet (12 sources) Tricyclic Antidepressant Start: 11-12-2015 take 1 tablet by mouth once daily Amitriptyline 50 MG tablet Active 50 mg PO DAILY November 12, 2015 1:00am Chondroitin Sulf A Sod (Bulk) (9 sources) Start: 11-12-2015 Chondroitin Sulf A Sod (Bulk) Active 1200 MG MC TWICE A DAY November 12, 2015 9:11am Start: 11-12-2015 Chondroitin Bernal lf A Sod (Bulk) Active 1200 MG MC TWICE A DAY November 12, 2015 12:00am Start: 11-12-2015 Chondroitin Bernal lf A Sod (Bulk) Active 1200 MG MC TWICE A DAY November 12, 2015 1:00am Kkwvdunrcke-Dwsidgsnn-Gzy C- Mn (9 sources) Start: 11-12-2015 Glucosamine-Ch ondroit-Vit C-Mn Active 1 EACH PO TWICE A DAY November 12, 2015 9:11am Start: 11-12-2015 Glucosamine-Ch ondroit-Vit C-Mn Active 1 EACH PO TWICE A DAY November 12, 2015 12:00am Start: 11-12-2015 Glucosamine-Ch ondroit-Vit C-Mn Active 1 EACH PO TWICE A DAY November 12, 2015 1:00am levothyroxine sodium 0.075 mg oral tablet (15 sources) l-Thyroxine Start: 01-25-2025 take 1 tablet by mouth once daily Levothyroxine 75 mcg tablet Active 75 ug PO DAILY January 25, 2025 1:00am Start: 01-25-2025 Levothyroxine 75 mcg tablet Active ug PO January 25, 2025 1:00am Start: 11-12-2015 End: 01-25-2025 Levothyroxine 50 MCG tablet Discontinued 20 ug PO DAILY November 12, 2015 1:00am January 25, 2025 2:10pm Start: 11-12-2015 take 20 ug by mouth once daily Levothyroxine Active 20 MCG PO DAILY November 12, 2015 1:00am lubiprostone 0.024 mg oral capsule (1 source) Chloride Channel Activator Start: 06-13-2025 take 1 capsule by mouth twice daily Lubiprostone 24 mcg capsule Active 24 ug PO TWICE A DAY June 13, 2025 12:00am Magnesium (12 sources) Start: 11-12-2015 take 400 mg by mouth twice daily Magnesium Active 400 MG PO TWICE A DAY November 12, 2015 9:11am Start: 11-12-2015 End: 01-25-2025 take 2 tablets by mouth twice daily Magnesium 200 MG tablet Discontinued 400 mg PO TWICE A DAY November 12, 2015 1:00am January 25, 2025 2:12pm Start: 11-12-2015 take 400 mg by mouth twice daily Magnesium Active 400 MG PO TWICE A DAY November 12, 2015 12:00am Start: 11-12-2015 take 400 mg by mouth twice daily Magnesium Active 400 MG PO TWICE A DAY November 12, 2015 1:00am Multivitamins,Therapeutic (12 sources) Start: 11-12-2015 Multivitamins, Therapeutic Active November 12, 2015 9:11am Start: 11-12-2015 End: 01-25-2025 Multivitamins,Therapeutic Di scontinued November 12, 2015 1:00am January 25, 2025 2:12pm Start: 11-12-2015 Multivitamins, Therapeutic Active November 12, 2015 12:00am Start: 11-12-2015 Multivitamins, Therapeutic Active November 12, 2015 1:00am 24 hr NIFEdipine 30 mg extended release oral tablet (3 sources) Dihydropyridine Calcium Channel Karlo Start: 01-25-2025 take 1 tablet by mouth once daily Nifedipine 30 mg tablet extended release Active 30 mg PO DAILY January 25, 2025 1:00am pantoprazole 20 mg delayed release oral tablet (3 sources) Proton Pump Inhibitor Start: 01-25-2025 take 1 tablet by mouth once daily Pantoprazole 20 mg tablet,delayed release (DR/EC) Active 20 mg PO daily January 25, 2025 1:00am tiZANidine 4 mg oral tablet (3 sources) Central alpha-2 Adrenergic Agonist Start: 01-25-2025 take 1 tablet by mouth at bedtime Tizanidine 4 mg tablet Active 4 mg PO AT BEDTIME January 25, 2025 1:00am traMADol hydrochloride 50 mg oral tablet (3 sources) Opioid Agonist Start: 01-25-2025 Tramadol 50 mg tablet Active 50 mg PO NEEDED January 25, 2025 1:00am 24 hr venlafaxine 37.5 mg extended release oral capsule (16 sources) Serotonin and Norepinephrine Reuptake Inhibitor Start: 06-13-2025 take 1 capsule by mouth once daily Venlafaxine 37.5 mg capsule,extended release 24hr Active 37.5 mg PO DAILY June 13, 2025 12:00am depression Start: 01-25-2025 End: 06-13-2025 take 1 capsule by mouth once daily Venlafaxine 37.5 mg capsule,extended release 24hr Discontinued mg PO DAILY January 25, 2025 1:00am June 13, 2025 7:46pm Start: 11-12-2015 End: 01-25-2025 take 1 capsule by mouth once daily Venlafaxine Xr (Effexor Xr) 75 MG capsule Discontinued 75 mg PO DAILY November 12, 2015 1:00am January 25, 2025 2:11pm Completed/Discontinued Medications Medication Drug Class(es) Dates Sig (Normalized) Sig (Original) acetylcysteine 200 mg/ml inhalation solution (12 sources) Antidote, Mucolytic, Antidote for Acetaminophen Overdose Start: 11-12-2015 End: 01-25-2025 take 600 mg by mouth twice daily Acetylcysteine 6,000 MG/30 ML solution Discontinued 600 mg PO TWICE A DAY November 12, 2015 1:00am January 25, 2025 2:12pm amLODIPine 5 mg oral tablet (12 sources) Dihydropyridine Calcium Channel Karlo Start: 11-12-2015 End: 01-25-2025 take 1 tablet by mouth once daily Amlodipine 5 MG tablet Discontinued 5 mg PO DAILY November 12, 2015 1:00am January 25, 2025 2:12pm ascorbic acid 500 mg oral tablet (12 sources) Vitamin C Start: 11-12-2015 End: 01-25-2025 take 2 tablets by mouth once daily Ascorbic Acid (Vitamin C) (Vitamin C) 500 MG tablet Discontinued 1000 mg PO DAILY@0800 November 12, 2015 1:00am January 25, 2025 2:12pm atorvastatin 40 mg oral tablet (12 sources) HMG-CoA Reductase Inhibitor Start: 11-12-2015 End: 06-13-2025 take 1 tablet by mouth at bedtime Atorvastatin 40 MG tablet Discontinued 40 mg PO AT BEDTIME November 12, 2015 1:00am June 13, 2025 7:43pm biotin 10 mg oral capsule (12 sources) Start: 11-12-2015 End: 01-25-2025 take 1 capsule by mouth once daily Biotin (Chris Biotin) 10,000 MCG capsule Discontinued 55828 ug PO DAILY November 12, 2015 1:00am January 25, 2025 2:12pm calcium citrate 950 mg / cholecalciferol 250 unt oral tablet (12 sources) Vitamin D Start: 11-12-2015 End: 01-25-2025 Calcium Citrate-Vitamin D3 1 EACH tablet Discontinued 1 NMA PO TWICE A DAY November 12, 2015 1:00am January 25, 2025 2:12pm Start: 11-12-2015 Calcium Citrat e-Vitamin D3 Active 1 EACH PO TWICE A DAY November 12, 2015 1:00am Chondroitin Sulf A Sod (Bulk) 100 GM powder (3 sources) Start: 11-12-2015 End: 01-25-2025 Chondroitin Sulf A Sod (Bulk) 100 GM powder Discontinued 1200 mg MC TWICE A DAY November 12, 2015 1:00am January 25, 2025 2:12pm Glucosamine-Chondr oit-Vit C-Mn 1 EACH capsule (3 sources) Start: 11-12-2015 End: 01-25-2025 take 1 capsule by mouth twice daily Glucosamine-Chondro it-Vit C-Mn 1 EACH capsule Discontinued 1 NMA PO TWICE A DAY November 12, 2015 1:00am January 25, 2025 2:12pm metaxalone 800 mg oral tablet (12 sources) Start: 11-12-2015 End: 01-25-2025 take 1 tablet by mouth twice daily Metaxalone 800 MG tablet Discontinued 800 mg PO TWICE A DAY November 12, 2015 1:00am January 25, 2025 2:12pm nystatin 143912 unt/ml oral suspension (7 sources) Polyene Antifungal Start: 01-03-2023 End: 01-24-2023 Nystatin 100,000 unit/mL suspension Discontinued 4 mL BUCCAL THREE TIMES A DAY 250 21 0 January 03, 2023 1:00am January 23, 2023 1:00am January 24, 2023 1:03am administer 1/2 of dose in each side of the mouth; no eating/ drinking x30 minutes after each dose Start: 01-03-2023 End: 01-24-2023 Nystatin Discontinued 4 ML B UCCAL THREE TIMES A DAY 250 21 January 03, 2023 1:00am January 24, 2023 1:03am administer 1/2 of dose in each side of the mouth; no eating/ drinking x30 minutes after each dose omeprazole 20 mg delayed release oral capsule (12 sources) Proton Pump Inhibitor Start: 11-12-2015 End: 01-25-2025 take 1 capsule by mouth once daily Omeprazole 20 MG capsule Discontinued 20 mg PO DAILY November 12, 2015 1:00am January 25, 2025 2:10pm predniSONE 20 mg oral tablet (12 sources) Start: 12-09-2021 End: 01-25-2025 take 1 tablet by mouth once daily Prednisone 20 mg tablet Discontinued 20 mg PO DAILY 10 10 0 December 09, 2021 1:00am January 25, 2025 2:12pm Problems Problem Classification Problem Date Documented Da te Episodic/Chronic Abdominal pain (7 sources) Suprapubic pain; Translations: [Pelvic and perineal pain] 09-23-2022 Episodic Acquired foot deformities (1 source) Flat foot [pes planus] (acquired), unspecified foot; Translations: [Flat foot [pes planus] (acquired), unspecified foot] Onset: 03-15-2022 Episodic Acute myocardial infarction (2 sources) Myocardial infarction; Translations: [Non-ST elevation (NSTEMI) myocardial infarction] 06-13-2025 Chronic Coronary atherosclerosis and other heart disease (4 sources) Exercise-induced angina; Translations: [Exertional angina] 06-13-2025 Chronic Disorders of lipid metabolism (2 sources) Hypercholesterolemia ; Translations: [Pure hypercholesterolemia , unspecified] 06-13-2025 Chronic Fluid and electrolyte disorders (8 sources) Dehydration; Translations: [Dehydration] 09-13-2022 Episodic Mycoses (8 sources) Candidiasis of mouth; Translations: [Candidal stomatitis] 01-03-2023 Episodic Osteoporosis (1 source) Age-related osteoporosis without current pathological fracture; Translations: [Age-related osteoporosis without current pathological fracture] Onset: 02-25-2025 Chronic Other circulatory disease (4 sources) Elevated blood pressure; Translations: [Elevated blood-pressure reading, without diagnosis of hypertension] 12-28-2023 Episodic Other gastrointestinal disorders (3 sources) Irritable bowel syndrome; Translations: [Irritable bowel syndrome without diarrhea] 01-25-2025 Chronic Other gastrointestinal disorders (1 source) Change in bowel habit; Translations: [Change in bowel habit] Onset: 03-20-2025 Episodic Other non-traumatic joint disorders (3 sources) Pain in left knee; Translations: [Pain in left knee] Onset: 02-04-2022 Episodic Other screening for suspected conditions (not mental disorders or infectious disease) (2 sources) Raised cardiac enzyme or marker; Translations: [Other specified abnormal findings of blood chemistry] 06-13-2025 Episodic Spondylosis; intervertebral disc disorders; other back problems (8 sources) Other intervertebral disc degeneration, lumbar region; Translations: [Degeneration of cervical intervertebral disc] Onset: 04-07-2022 Chronic Spondylosis; intervertebral disc disorders; other back problems (10 sources) Cervical radiculopathy; Translations: [Radiculopathy, cervical region] Onset: 01-25-2025 Episodic Sprains and strains (15 sources) Strain of muscle of chest wall; Translations: [Strain of muscle and tendon of front wall of thorax, initial encounter] Onset: 03-15-2022 Episodic Syncope (13 sources) Syncope; Translations: [Syncope and collapse] 09-13-2022 Episodic Thyroid disorders (8 sources) Hypothyroidism; Translations: [Hypothyroidism, unspecified] 09-13-2022 Chronic Unclassified (2 sources) M54.12 - Radiculopathy, cervical region Results Test Name Value Interpretation Reference Range Facility Absolute lymphocyte countOrd ered By: Efren Moss on 06-13-2025 Lymphocytes Auto (Unsp spec) [#/Vol] 1.92 10*3/uL 0.83-4.51 [facility] Absolute neutrophil countOrd ered By: Efren Moss on 06-13-2025 Neutrophils (Bld) [#/Vol] 3.2 10*3/uL 2.0-7.7 [facility] Anion gap in Serum or Plasma Ordered By: Efren Moss on 06-13-2025 Anion gap [Moles/Vol] 11 mmol/L 5-15 [facility] Automated lymphocyte count a s percentage of total leukocytesOrdered By: Efren Moss on 06-13-2025 Lymphocytes/100 WBC Auto (Unsp spec) 34.0 % 19-41 [facility] BUN/creatinine ratioOrdered By: Efrenconrado Moss on 06-13-2025 Urea nitrogen/Creatinine [Mass ratio] 32.4 mg/mg High 10-20 [facility] Basophil percentageOrdered B y: Efren Moss on 06-13-2025 Basophils/100 WBC (Bld) 0.5 % 0-1 [facility] Carbon dioxide, total [Moles /volume] in Central venous bloodOrdered By: Efren Moss on 06-13-2025 CO2 [Moles/Vol] 26.9 mmol/L 21.0-32.0 [facility] Chloride assayOrdered By: Margaret Moss on 06-13-2025 Chloride [Moles/Vol] 99 mmol/L 98-108 [facility] Eosinophil percentageOrdered By: Efren Moss on 06-13-2025 Eosinophils/100 WBC (Bld) 0.5 % 0-5 [facility] Erythrocyte distribution wid th ratioOrdered By: Efren Moss on 06-13-2025 Erythrocyte distribution width (RBC) [Ratio] 13.5 % 11.6-14.6 [facility] Erythrocyte distribution wid th standard deviationOrdered By: Efrenconrado Moss on 06-13-2025 Erythrocyte distribution width (RBC) [Ratio] 48.6 fl High 35.1-43.9 [facility] Glomerular filtration rate ( GFR) estimation/1.73 sq m using serum, plasma, or whole bOrdered By: Efrenconrado Moss on 06-13-2025 GFR/1.73 sq M.predicted among non-blacks MDRD (S/P/Bld) [Vol rate/Area] 89 mL/min/{1.73_m2} >60 [facility] Comment on above: mL/min/1.73m2 CKD-EP I Creatinine Equation (2020) Hematocrit Auto (Bld) [Volum e fraction]Ordered By: Efren Moss on 06-13-2025 Hematocrit (Bld) [Volume fraction] 39.1 % 37-47 [facility] Hemoglobin measurementOrdere d By: Efren Moss on 06-13-2025 Hemoglobin (Bld) [Mass/Vol] 12.7 g/dL 12.0-15.0 [facility] Immature granulocytes/100 WB C Auto (Bld)Ordered By: Efren Moss on 06-13-2025 Immature granulocytes/100 WBC (Bld) 0.200 % 0.0-0.9 [facility] Comment on above: IG% - Immature Granu locytes (promyelocytes, myelocytes and metamyelocytes) > 1% indicates that a LEFT SHIFT is Present. MCV (mean corpuscular volume ) determinationOrdered By: Efren Moss on 06-13-2025 MCV (RBC) [Entitic vol] 96.5 fL 81-99 [facility] Magnesium measurement (mass/ volume)Ordered By: Hui Morel on 06-13-2025 Magnesium (Unsp spec) [Mass/Vol] 2.0 mg/dL 1.5-2.2 [facility] Mean corpuscular hemoglobin (MCH) determinationOrdered By: Efren Moss on 06-13-2025 MCH (RBC) [Entitic mass] 31.4 pg 27.0-32.0 [facility] Mean corpuscular hemoglobin concentration (MCHC) determinationOrdered By: Efren Moss on 06-13-2025 MCHC (RBC) [Mass/Vol] 32.5 g/dL 32-36 [facility] Mean platelet volume determi nationOrdered By: Efren Moss on 06-13-2025 Platelet mean volume (Bld) [Entitic vol] 10.4 fL 6.2-12.0 [facility] Monocyte percentageOrdered B y: Efren Moss on 06-13-2025 Monocytes/100 WBC (Bld) 9.0 % 0-10 [facility] Neutrophil percentageOrdered By: Efren Moss on 06-13-2025 Neutrophils/100 WBC (Bld) 55.8 % 47-70 [facility] Nucleated red blood cell per centageOrdered By: Efren Moss on 06-13-2025 Nucleated RBC/100 WBC (Bld) [Ratio] 0 % 0-5 [facility] Platelet countOrdered By: Margaret Moss on 06-13-2025 Platelets (Bld) [#/Vol] 241 10*3/uL 150-450 [facility] Potassium measurement (mass/ volume)Ordered By: Efren Moss on 06-13-2025 Potassium (Unsp spec) [Mass/Vol] 4.4 mmol/L 3.3-5.1 [facility] RBC Auto (Bld) [#/Vol]Ordere d By: Efren Moss on 06-13-2025 RBC (Bld) [#/Vol] 4.05 10*6/uL Low 4.2-5.4 [facility] Serum creatinine measurement (mass/volume)Ordered By: Efren Moss on 06-13-2025 Creatinine [Mass/Vol] 0.71 mg/dL 0.70-1.20 [facility] Serum glucose measurement (m ass/volume)Ordered By: [facility] on 06-13-2025 Glucose [Mass/Vol] 112 mg/dL High 70-99 [facility] Serum or plasma calcium jill urement (mass/volume)Ordered By: [facility] on 06-13-2025 Calcium [Mass/Vol] 9.4 mg/dL 7.6-11.0 [facility] Serum or plasma urea nitroge n measurement (mass/volume)Ordered By: [facility] on 06-13-2025 Urea nitrogen [Mass/Vol] 23 mg/dL High 4-19 [facility] Sodium levelOrdered By: [facility] on 06-13-2025 Sodium [Moles/Vol] 136 mmol/L 133-145 [facility] Troponin T.cardiac [Mass/vol ume] in Serum or Plasma by High sensitivity methodOrdered By: [facility] on 06-13-2025 Troponin T.cardiac High sensitivity method [Mass/Vol] 93 ng/L High <14 [facility] Comment on above: Critical Result(s) C alled at: 1847 TO Edward CORTES by: Barbara NIXON. Results read back by same. White blood cell (WBC) count Ordered By: [facility] on 06-13-2025 WBC (Bld) [#/Vol] 5.7 10*3/uL 4.4-11.0 [facility] Calprotectin, Stoolon [address] 146 ug/g Abnormal 0-120 [facility] Comment on above: Result Comment: Conc entration Interpretation Follow-Up < 5 - 50 ug/g Normal None >50 -120 ug/g Borderline Re-evaluate in 4-6 weeks >120 ug/g Abnormal Repeat as clinically indicated Performed at: - [facility] [id number] Fermenter Wine: Franklin Pena MD, Phone: [phone] Performed By: #### L [id number] #### [facility] [address] [place], [address] [employer] Rajat and/or [employer] [facility] 03-15-2025 [employer] Decub and/or Erect [facility] Imaging Services [address] [place] [address] [employer] Decub and/or Erect MR#: [id number] Acct: [id number] Name: RICHIE OSWALD Rep #: [id number] : 1950 F 74 From: Aftab Al MD PCP: Dr. Praveen Crum MD Status: REG CLI Study: [employer] Decub and/or Erect Date of Exam: 03/15 Exam# [id number] Ordering Dr: KRYSTEN MARIE EXAM: XR Abdomen, 1 View CLINICAL INDICATION: PAIN, CHANGE IN BOWEL HABITS TECHNIQUE: Frontal supine view of the abdomen/pelvis. COMPARISON: No relevant prior studies available. FINDINGS: GASTROINTESTINAL TRACT: Fecal retention in the colon consistent with constipation. No dilation. BONES/JOINTS: Posterior fusion hardware of the lower lumbar spine. No acute fracture. RAD/[employer] Decub and/or Erect IMPRESSION: Fecal retention in the colon consistent with constipation. Reading Location: [id number] CC: KRYSTEN MARIE; Dr. Praveen Crum MD Board Certified Music Therapist: Signed Normal [facility] Calprotectin stoolon 025 Calprotectin stool 146 ug/g High 0-120 [facility] Comment on above: Concentration Interp retation Follow-Up< 5 - 50 ug/g Normal None>50 -120 ug/g Borderline Re-evaluate in 4-6 weeks >120 ug/g Abnormal Repeat as clinically indicatedPerformed at: [facility] - [facility] [address] [id number] Director: Franklin Pena MD, Phone: [phone] Stool Calprotectin 146 ug/g High 0-120 [facility] Comment on above: Concentration Interp retation Follow-Up< 5 - 50 ug/g Normal None>50 -120 ug/g Borderline Re-evaluate in 4-6 weeks >120 ug/g Abnormal Repeat as clinically indicatedPerformed at: [facility] - [facility] [address] [id number] Director: Franklin Pena MD, Phone: [phone] Cerv Spine 4 or 5 Viewson Cerv Spine 4 or 5 Views [facility] Imaging Services [address] [place] [address] Cerv Spine 4 or 5 Views MR#: [id number] Acct: [id number] Name: RICHIE OSWALD Rep #: [id number] : 1950 F 74 From: Lennox og MD PCP: Dr. Praveen Crum MD Status: DEP AMB Study: Cerv Spine 4 or 5 Views Date of Exam: 01/25/25 Exam# [id number] Ordering Dr: Ruthann Herron PROCEDURE: CERV SPINE 4 OR 5 VIEWS REASON FOR EXAM: Neck pain. TECHNIQUE: 4 views of the cervical spine were obtained including flexion-extension views.. COMPARISON: None. FINDINGS: Normal vertebral body heights. No visible fracture. Disc space narrowing at the C5-C6 and C6-C7 levels with the mild anterior listhesis. Facet joint osteoarthritis. Minimal anterior listhesis of C3 on C4 and C4 on C5 on the flexion views. This is reduced on extension view. Prevertebral soft tissues are unremarkable. RAD/Cerv Spine 4 or 5 Views IMPRESSION: MILD CERVICAL DEGENERATIVE CHANGES. Minimal anterior listhesis of C3 on C4 and C4 on C5 on the flexion views. This is reduced on the extension views. Reading Location: [id number] CC: BRAYDEN Wray; Dr. Praveen Crum MD Board Certified Music Therapist: Signed Normal [facility] Orthopedic Visit Reporton Orthopedic Visit Report [facility] [address] [place] [address] OFFICE VISIT Date of Service: 01/25/25 MR#: [id number] Acct: [id number] Name: RICHIE OSWALD Rep #: [id number] : 1950 Provider: BRAYDEN Wray Age/Sex: 74/F Location: [facility] Status: Signed Intake Vital Signs 12/20/23 14:08 01/25/25 13:08 Height 5 ft 3 in 5 ft 3 in Weight: 153 lb BMI 27.1 Intake Visit Reasons: CERVICAL SPINE Chief Complaint: Cervical spine Is patient in pain?: Yes (Cervical spine ) Pain scale (1-10): 6 Allergies cyclobenzaprine HCl (From Flexeril) Adverse Reaction (Verified 01/25/25 13:09) Other promethazine (From Phenergan) Adverse Reaction (Verified 01/25/25 13:09) Other Judzflg-UHO-WhV Reductase Inhibitor Adverse Reaction (Verified 01/25/25 13:09) Pain in joints Medications ???Medication ???Instructions ???Recorded ???Confirmed ???Type amitriptyline 50 mg tablet 50 mg PO DAILY 11/12/15 01/25/25 H istory atorvastatin 40 mg tablet 40 mg PO QHS 11/12/15 09/23/22 His tory alendronate 70 mg tablet mg PO 01/25/25 01/25/25 History levothyroxine 75 mcg tablet mcg PO 01/25/25 01/25/25 History nifedipine 30 mg tablet,extended mg PO DAILY 01/25/25 01/25/25 Hist ory release pantoprazole 20 mg tablet,delayed 20 mg PO QDAY 01/25/25 01/25/25 H istory release tizanidine 4 mg tablet mg PO 3XD 01/25/25 01/25/25 Histor y tramadol 50 mg tablet mg PO 01/25/25 01/25/25 History venlafaxine 37.5 mg mg PO DAILY 01/25/25 01/25/25 Hist ory capsule,extended release 24 hr Have you fallen in the past year?: Yes [facility] History Raynaud disease Fibromyalgia Cataract Oral thrush Suprapubic abdominal pain High cholesterol Hypothyroidism Surgical History Previous back surgery H/O wrist surgery History of ankle surgery H/O shoulder surgery Social History Smoking Status: Unknown if ever smoked HPI CERVICAL SPINE Details: This documentation accurately reflects the service provided and the decisions made by , BRAYDEN Wray 01/25/25 [id number]. Part of today???s visit was documented by Annette Campos RN, acting as scribe. RICHIE OSWALD is a 74 year old F here today for initial evaluation of cervical spine pain. She reports this has been going on for 6 months insidious onset. She states the pain is worse on the right side and extends into her scapula. The pain also extends into her upper arm to her mid humerus. She denies numbness and tingling. She denies previous surgery or injury to the neck. She did have back surgery in 2018 at [facility] at L4-L5. She has seen Dr. Delgadillo in pain management and had her last injection one month ago and reports it was not helpful. Says that the first injection gave her about 2 weeks of mild relief. She has tried [address] Delgadillo. She has done PT in the past and reports it was not helpful. Did PT for lumbar back 2 years ago and has been doing the HEP with no improvement, no neck physical therapy. Dr. Knutson ordered a cervical and MRI in the fall which she has brought a CD with those images. Denies any balance or dexterity issues. Ortho Exam General General: Yes no acute distress Neurologic: Yes alert and Yes oriented x3 Spine SPINE TESTING CERVICAL THORACIC LUMBAR Musculoskeletal Strength 0=absent - 5=normal Details: Neurological exam of the upper extremities shows 5X5 power. Normal sensation across all dermatomes. No hyperreflexia. No midline tenderness. There is bilateral paraspinal tenderness. Coding Level of Care Code Off vis,new,level 4 Diagnoses Cervical radiculopathy M54.12 Degenerative disc disease, cervical M50.30 Assessment and Plan Assessment and Plan (1) Cervical radiculopathy: Status: Acute (2) Degenerative disc disease, cervical: Status: Acute Orders: Orders Cerv Spine 4 or 5 Views Today M54.2 - Cervicalgia Referrals Physical Therapy Referral M54.12 - Radiculopathy, cervical region Plan Obtained and reviewed cervical x-rays today with the patient. X-rays show mild multilevel disc height loss worse at C5-6 as well as straightening of normal cervical lordosis. Reviewed cervical MRI from July 2024 which showed moderate degenerative changes at C5-6 with no stenosis. Explained imaging findings in detail. At this time the patient is not sure if she would wish to proceed with surgery. The patient does not appear to have any myelopathic symptoms. She does wish to continue conservative treatment and wishes to try physical therapy directed towards her neck which she has not done yet. The patient has only had lumbar physical therapy which was (more content not included)... Normal [facility] Bone density reportOrdered B y: Lennox Ellington on 11-02-2024 Study report Skeletal system DXA [facility] Imaging Services [address] [place], [place] [address] Dexa Bone Density Study MR#: [id number] Acct: [id number] Name: RICHIE OSWALD Rep #: [id number] : 1950 F 74 From: Clinton Ellington MD PCP: Dr. Praveen Crum MD Status: [facility] Study:Dexa Bone Density Study Date of Exam: 10/30/24 Exam# [id number] Ordering Dr: Yandel Tracy RECORDS CUSTODIAN-C [id number] STUDY: DUAL ENERGY X-RAY ABSORPTIOMETRY / DXA REASON FOR EXAM: Female, 74 years old. M810 TECHNIQUE: Bone Mineral Density (BMD) measurements of lumbar spine and bilateral hips were obtained. COMPARISON: Comparison is made with prior study dated August 31, 2022. FINDINGS: Lumbar Spine (L1-L4): g/cm2 (0.765) / T-score (-1.9) / Z-score (0.2) Findings are suggestive of osteopenia with a moderate fracture risk. Left Femur Total: g/cm2 (0.688) / T-score (-2.1) / Z-score (9 0.4) Left Femoral Neck: g/cm2 (0.556) / T-score (-2.6) / Z-score (-0.6) Right Femur Total: g/cm2 (0.663) / T-score (-2.3) / Z-score (-0.6) Right Femoral Neck: g/cm2 (0.670) / T-score (-1.6) / Z-score (0.4) The T-Scores on the most recent prior examination were: Lumbar Spine (L1-L4): There has been improvement of bone density since the previous examination. Left Femur Total: which represents an improvement of 15.1%. Right Femur Total: which represents an improvement of 8.4%. BD/Dexa Bone Density Study IMPRESSION: The patient is considered osteoporotic as outlined below according to World Jonathon Organization (WHO) criteria with a high fracture risk. There has been improvement of bone density since the previous examination. Reference Information: The T-score is the number of standard deviations above or below the standard which is normal for young adults at their peak bone mineral density. The World Health Organization (WHO) interprets the T-scores as follows: Above -1 Normal bone density Between -1 and -2.5 Osteopenia Equal to / or below -2.5 Osteoporosis As a practical clinical guideline, osteopenia may be graded as follows: Mild -1 through -1.5 Moderate -1.6 through -2.0 Severe -2.1 through -2.4 The Z-score is the number of standard deviations above or below age-matched controls. A Z-score of less than -1.5 would be considered abnormal. References: 1. NIH Osteoporosis and Related Bone Diseases www osteo.org 2. International Society for Clinical Densitometry www iscd.org 3. National Osteoporosis Foundation www nof.org Electronically Signed: Lennox Ellington MD at 13:26 EST , CC: Dr. Praveen Crum MD; Annette Tracy ~ Board Certified Music Therapist: Signed [facility] Breast imaging reportOrdered By: Lennox Ellington on 10-30-2024 Study report [facility] Imaging Services [address] [place], [place] [address] SCRN MAMM (CAD)W/JESSICA BILAT MR#: [id number] Acct: [id number] Name: RICHIE OSWALD Rep #: [id number] : 1950 F 74 From: Clinton Ellington MD PCP: Dr. Praveen Crum MD Status: [facility] Study:SCRN MAMM (CAD)W/JESSICA BILAT Date of Exa m: 10/30/24 Exam# [id number] Ordering Dr: Yandel Tracy RECORDS CUSTODIAN-C [id number] MAMMOGRAPHY - BILATERAL SCREENING REASON FOR EXAM: Female, 74 years old. Routine annual screening examination. PERTINENT HISTORY: Non-contributory. Prior bilateral breast reduction surgery TECHNIQUE: Digital bilateral breast jessica (3D mammographic acquisition) in the CC and MLO projections. 2-D mediolateral oblique (MLO) and craniocaudad (CC) views of both breasts were obtained. CAD: Full Field Digital Mammography with Computer Added Detection was performed. COMPARISON: Comparison is made with prior study dated September 22, 2023 and August 31, 2022. FINDINGS: Breast Composition: The breasts are almost entirely fatty. There are no dominant masses or suspicious calcifications. Small bilateral fat-containing axillary lymph nodes. No other significant abnormalities are identified. There has been no significant change since the prior study. BI/SCRN MAMM (CAD)W/JESSICA BILAT IMPRESSION: Stable bilateral screening mammogram. Yearly follow-up mammogram recommended. (A) ASSESSMENT CATEGORY: BIRADS Category 2: Benign. A letter regarding these results will be sent to the patient by the facility within 30 days. Approximately 10% of breast cancers are not detected by mammography. A normal mammogram should not delay biopsy of a clinically suspicious abnormality. [id number] Electronically Signed: Lennox Ellington MD at 13:40 EST , CC: Dr. Praveen Crum MD; Annette Tracy ~ Board Certified Music Therapist: Signed [facility] Dexa Bone Density Studyon Dexa Bone Density Study [facility] Imaging Services [address] [place], [place] [address] Dexa Bone Density Study MR#: [id number] Acct: [id number] Name: RICHIE OSWALD Rep #: [id number] : 1950 F 74 From: Lennox og MD PCP: Dr. Praveen Crum MD Status: [facility] Study: Dexa Bone Density Study Date of Exam: 10/30/24 Exam# [id number] Ordering Dr: Annette Tracy NP [id number] STUDY: DUAL ENERGY X-RAY ABSORPTIOMETRY / DXA REASON FOR EXAM: Female, 74 years old. M810 TECHNIQUE: Bone Mineral Density (BMD) measurements of lumbar spine and bilateral hips were obtained. COMPARISON: Comparison is made with prior study dated August 31, 2022. FINDINGS: Lumbar Spine (L1-L4): g/cm2 (0.765) / T-score (-1.9) / Z-score (0.2) Findings are suggestive of osteopenia with a moderate fracture risk. Left Femur Total: g/cm2 (0.688) / T-score (-2.1) / Z-score (9 0.4) Left Femoral Neck: g/cm2 (0.556) / T-score (-2.6) / Z-score (-0.6) Right Femur Total: g/cm2 (0.663) / T-score (-2.3) / Z-score (-0.6) Right Femoral Neck: g/cm2 (0.670) / T-score (-1.6) / Z-score (0.4) The T-Scores on the most recent prior examination were: Lumbar Spine (L1-L4): There has been improvement of bone density since the previous examination. Left Femur Total: which represents an improvement of 15.1%. Right Femur Total: which represents an improvement of 8.4%. BD/Dexa Bone Density Study IMPRESSION: The patient is considered osteoporotic as outlined below according to World Jonathon Organization (WHO) criteria with a high fracture risk. There has been improvement of bone density since the previous examination. Reference Information: The T-score is the number of standard deviations above or below the standard which is normal for young adults at their peak bone mineral density. The World Health Organization (WHO) interprets the T-scores as follows: Above -1 Normal bone density Between -1 and -2.5 Osteopenia Equal to / or below -2.5 Osteoporosis As a practical clinical guideline, osteopenia may be graded as follows: Mild -1 through -1.5 Moderate -1.6 through -2.0 Severe -2.1 through -2.4 The Z-score is the number of standard deviations above or below age-matched controls. A Z-score of less than -1.5 would be considered abnormal. References: 1. NIH Osteoporosis and Related Bone Diseases www osteo.org 2. International Society for Clinical Densitometry www iscd.org 3. National Osteoporosis Foundation www nof.org Electronically Signed: Lennox Ellington MD at 13:26 EST , CC: Dr. Praveen Crum MD; Annette Tracy Board Certified Music Therapist: Signed Normal [facility] SCRN MAMM (CAD)W/JESSICA BILATo n 10-30-2024 SCRN MAMM (CAD)W/JESSICA BILAT [facility] Imaging Services [address] [place] [address] SCRN MAMM (CAD)W/JESSICA BILAT MR#: [id number] Acct: [id number] Name: RICHIE OSWALD Rep #: [id number] : 1950 F 74 From: Lennox og MD PCP: Dr. Praveen Crum MD Status: [facility] Study: SCRN MAMM (CAD)W/JESSICA BILAT Date of Exam: 10/21 Exam# [id number] Ordering Dr: Annette Tracy NP -Josue [id number] MAMMOGRAPHY - BILATERAL SCREENING REASON FOR EXAM: Female, 74 years old. Routine annual screening examination. PERTINENT HISTORY: Non-contributory. Prior bilateral breast reduction surgery TECHNIQUE: Digital bilateral breast jessica (3D mammographic acquisition) in the CC and MLO projections. 2-D mediolateral oblique (MLO) and craniocaudad (CC) views of both breasts were obtained. CAD: Full Field Digital Mammography with Computer Added Detection was performed. COMPARISON: Comparison is made with prior study dated September 22, 2023 and August 31, 2022. FINDINGS: Breast Composition: The breasts are almost entirely fatty. There are no dominant masses or suspicious calcifications. Small bilateral fat-containing axillary lymph nodes. No other significant abnormalities are identified. There has been no significant change since the prior study. BI/SCRN MAMM (CAD)W/JESSICA BILAT IMPRESSION: Stable bilateral screening mammogram. Yearly follow-up mammogram recommended. (A) ASSESSMENT CATEGORY: BIRADS Category 2: Benign. A letter regarding these results will be sent to the patient by the facility within 30 days. Approximately 10% of breast cancers are not detected by mammography. A normal mammogram should not delay biopsy of a clinically suspicious abnormality. [id number] Electronically Signed: Lennox Ellington MD at 13:40 EST , CC: Dr. Praveen Crum MD; Annette Tracy Board Certified Music Therapist: Signed Normal [facility] No Panel InformationOrdered By: Praveen Crum on 03-05-2024 Free Triiodothyronine (T3) pg/dL 2.0 pg/mL 2.18-3.98 [facility] Serum or plasma thyroid stim ulating hormone (TSH) measurement (units/volume)Ordered By: Praveen Crum on 03-05-2024 TSH Qn 1.85 uIU/mL 0.358-3.74 [facility] Thin prep Papanicolaou smear with manual screeningOrdered By: Praveen Crum on 03-05-2024 Thin prep Papanicolaou smear with manual screening 0.76 ng/dL 0.76-1.46 [facility] Absolute lymphocyte countOrd ered By: Dio Martins on 12-20-2023 Lymphocytes Auto (Unsp spec) [#/Vol] 1.54 10*3/uL 0.83-4.51 [facility] Automated lymphocyte count a s percentage of total leukocytesOrdered By: Dio Martins on 12-20-2023 Lymphocytes/100 WBC Auto (Unsp spec) 26.2 % 19-41 [facility] Basophil percentageOrdered B y: Dio Martins on 12-20-2023 Basophils/100 WBC (Bld) 0.7 % 0-1 [facility] Bilirubin [Mass/Vol] 0.30 mg/dL 0.20-1.00 [facility] Comment on above: For patients on eltr ombopag therapy, use of Dimension Retsof TBIL is not recommended. Chloride [Moles/Vol] 106 mmol/L 98-107 [facility] Eosinophils/100 WBC (Bld) 1.4 % 0-5 [facility] Glucose [Mass/Vol] 119 mg/dL 74-106 [facility] Comment on above: Fasting Glucose resu lt from 100 to 125 mg/dL suggests IMPAIRED HOMEOSTASIS per A.D.A. criteria. Hemoglobin (Bld) [Mass/Vol] 14.4 g/dL 12.0-15.0 [facility] Monocytes/100 WBC (Bld) 7.5 % 0-10 [facility] Neutrophils (Bld) [#/Vol] 3.8 10*3/uL 2.0-7.7 [facility] Neutrophils/100 WBC (Bld) 63.9 % 47-70 [facility] Potassium [Moles/Vol] 4.3 mmol/L 3.5-5.1 [facility] Comment on above: Moderate Hemolysis, Result may be falsely increased. Protein [Mass/Vol] 7.8 g/dL 6.4-8.2 [facility] Sodium [Moles/Vol] 138 mmol/L 136-145 [facility] WBC (Bld) [#/Vol] 5.9 10*3/uL 4.4-11.0 [facility] Determination of erythrocyte mean corpuscular volume (MCV)Ordered By: Dio Martins on 12-20-2023 MCV (RBC) [Entitic vol] 98.1 fL 81-99 [facility] Erythrocyte distribution wid th ratioOrdered By: Dio Martins on 12-20-2023 Erythrocyte distribution width (RBC) [Ratio] 13.5 % 11.6-14.6 [facility] Erythrocyte distribution wid th standard deviationOrdered By: Dio Martins on 12-20-2023 Erythrocyte distribution width (RBC) [Entitic vol] 50.1 fL 35.1-43.9 [facility] Hematocrit Auto (Bld) [Volum e fraction]Ordered By: Dio Martins on 12-20-2023 Hematocrit (Bld) [Volume fraction] 46.7 % 37-47 [facility] Immature granulocytes/100 WB C Auto (Bld)Ordered By: Dio Martins on 12-20-2023 Immature granulocytes/100 WBC (Bld) 0.300 % 0.0-0.9 [facility] Comment on above: IG% - Immature Granu locytes (promyelocytes, myelocytes and metamyelocytes) > 1% indicates that a LEFT SHIFT is Present. Laboratory - Chemistry and C hemistry - challengeOrdered By: Dio Martins on 12-20-2023 Albumin/Globulin [Mass ratio] 1.1 {ratio} 0.9-2.4 [facility] ALP [Catalytic activity/Vol] 55 U/L 45-117 [facility] ALT [Catalytic activity/Vol] 13 U/L 13-56 [facility] CO2 [Moles/Vol] 26.0 mmol/L 21.0-32.0 [facility] Globulin (S) [Mass/Vol] 3.7 g/dL 2.2-4.2 [facility] Urea nitrogen/Creatinine [Mass ratio] 28.0 mg/mg 10-20 [facility] Laboratory - Hematology and Cell countsOrdered By: Dio Martins on 12-20-2023 MCH (RBC) [Entitic mass] 30.3 pg 27.0-32.0 [facility] MCHC (RBC) [Mass/Vol] 30.8 g/dL 32-36 [facility] Nucleated RBC/100 WBC (Bld) [Ratio] 0 % 0-5 [facility] Platelets (Bld) [#/Vol] 186 10*3/uL 150-450 [facility] No Panel InformationOrdered By: Dio Martins on 12-20-2023 Troponin I High Sensitivity 7 pg/mL 3.0-54.0 [facility] Comment on above: Please Note: New Crystal t Units and Gender Specific Reference Ranges. For more information see Policy Stat Procedure Retsof High Sensitivity Troponin (TNIH) and attachments. Estimated Creatinine Clearance Calc 62.14 ml/min [facility] Estimated GFR (MDRD) Amer 92 mL/min >60 [facility] Comment on above: GFR Calc Estimated GFR (MDRD) Non-Af Amer 76 mL/min >60 [facility] Comment on above: Non- GFR Calc Platelet mean volume Elver-Ec ker (Bld) [Entitic vol]Ordered By: Dio Martins on 12-20-2023 Platelet mean volume (Bld) [Entitic vol] 11.4 fL 6.2-12.0 [facility] RBC Auto (Bld) [#/Vol]Ordere d By: Dio Martins on 12-20-2023 RBC (Bld) [#/Vol] 4.76 10*6/uL 4.2-5.4 [facility] Serum or plasma calcium jill urement (mass/volume)Ordered By: Dio Martins on 12-20-2023 Calcium [Mass/Vol] 10.0 mg/dL 8.5-10.1 [facility] Serum or plasma creatinine m easurement (mass/volume)Ordered By: Dio Martins on 12-20-2023 Creatinine [Mass/Vol] 0.79 mg/dL 0.55-1.02 [facility] Comment on above: The validity of the calculated GFR & GFRAA in patients over 70 years has not been determined. Clinical correlation is essential. Serum or plasma urea nitroge n measurement (mass/volume)Ordered By: Dio Martins on 12-20-2023 Urea nitrogen [Mass/Vol] 22 mg/dL 7-18 [facility] Thin prep Papanicolaou smear with manual screeningOrdered By: Dio Martins on 12-20-2023 Thin prep Papanicolaou smear with manual screening 4.1 g/dL 3.2-5.0 [facility] Thin prep Papanicolaou smear with manual screening 27 U/L 15-37 [facility] Comment on above: Moderate Hemolysis, Result may be falsely increased. Thin prep Papanicolaou smear with manual screening 6 5-15 [facility] Absolute lymphocyte countOrd ered By: Dr. Crum on 02-08-2023 Lymphocytes Auto (Unsp spec) [#/Vol] 2.70 10*3/uL 0.83-4.51 [facility] Basophil percentageOrdered B y: Dr. Crum on 02-08-2023 Basophils/100 WBC (Bld) 0.7 % 0-1 [facility] Bilirubin [Mass/Vol] 0.30 mg/dL 0.20-1.00 [facility] Comment on above: For patients on eltr ombopag therapy, use of Dimension Retsof TBIL is not recommended. Chloride [Moles/Vol] 102 mmol/L 98-107 [facility] Eosinophils/100 WBC (Bld) 2.2 % 0-5 [facility] Glucose [Mass/Vol] 81 mg/dL 74-106 [facility] Neutrophils (Bld) [#/Vol] 2.7 10*3/uL 2.0-7.7 [facility] Neutrophils/100 WBC (Bld) 44.5 % 47-70 [facility] Potassium [Moles/Vol] 4.3 mmol/L 3.5-5.1 [facility] Protein [Mass/Vol] 7.2 g/dL 6.4-8.2 [facility] Sodium [Moles/Vol] 139 mmol/L 136-145 [facility] WBC (Bld) [#/Vol] 6.0 10*3/uL 4.4-11.0 [facility] Blood erythrocytes count (nu mber/volume)Ordered By: Dr. Crum on 02-08-2023 RBC (Bld) [#/Vol] 4.35 10*6/uL 4.2-5.4 [facility] Blood hemoglobin measurement (mass/volume)Ordered By: Dr. Crum on 02-08-2023 Hemoglobin (Bld) [Mass/Vol] 13.5 g/dL 12.0-15.0 [facility] Blood lymphocytes/100 leukoc ytesOrdered By: Dr. Crum on 02-08-2023 Lymphocytes/100 WBC (Bld) 44.8 % 19-41 [facility] Blood monocytes/100 leukocyt esOrdered By: Dr. Crum on 02-08-2023 Monocytes/100 WBC (Bld) 7.6 % 0-10 [facility] Blood platelet mean volumeOr dered By: Dr. Crum on 02-08-2023 Platelet mean volume (Bld) [Entitic vol] 10.9 fL 6.2-12.0 [facility] Determination of erythrocyte mean corpuscular volume (MCV)Ordered By: Dr. Crum on 02-08-2023 MCV (RBC) [Entitic vol] 99.8 fL 81-99 [facility] Hematocrit Auto (Bld) [Volum e fraction]Ordered By: Dr. Crum on 02-08-2023 Hematocrit (Bld) [Volume fraction] 43.4 % 37-47 [facility] Laboratory - Chemistry and C hemistry - challengeOrdered By: Dr. Crum on 02-08-2023 ALP [Catalytic activity/Vol] 51 U/L 45-117 [facility] ALT [Catalytic activity/Vol] 14 U/L 13-56 [facility] CO2 [Moles/Vol] 28.0 mmol/L 21.0-32.0 [facility] Cobalamin (Vitamin B12) [Mass/Vol] 506 pg/mL 211-911 [facility] Free T4 [Mass/Vol] 0.71 ng/dL 0.76-1.46 [facility] Globulin (S) [Mass/Vol] 3.5 g/dL 2.2-4.2 [facility] Urea nitrogen/Creatinine [Mass ratio] 31.6 mg/mg 10-20 [facility] Laboratory - Hematology and Cell countsOrdered By: Dr. Crum on 02-08-2023 Erythrocyte distribution width (RBC) [Entitic vol] 49.5 fL 35.1-43.9 [facility] Erythrocyte distribution width (RBC) [Ratio] 13.4 % 11.6-14.6 [facility] Immature granulocytes/100 WBC (Bld) 0.200 % 0.0-0.9 [facility] Comment on above: IG% - Immature Granu locytes (promyelocytes, myelocytes and metamyelocytes) > 1% indicates that a LEFT SHIFT is Present. MCH (RBC) [Entitic mass] 31.0 pg 27.0-32.0 [facility] Nucleated RBC/100 WBC (Bld) [Ratio] 0 % 0-5 [facility] MCHC Auto (RBC) [Mass/Vol]Or dered By: Dr. Crum on 02-08-2023 MCHC (RBC) [Mass/Vol] 31.1 g/dL 32-36 [facility] No Panel InformationOrdered By: Dr. Crum on 02-08-2023 Estimated GFR (MDRD) Amer 101 mL/min >60 [facility] Comment on above: GFR Calc Estimated GFR (MDRD) Non-Af Amer 84 mL/min >60 [facility] Comment on above: Non- GFR Calc Free Triiodothyronine (T3) pg/dL 1.9 pg/mL 2.18-3.98 [facility] Thyroid Stimulating Hormone (TSH) 3.71 uIU/mL 0.358-3.74 [facility] Vitamin D 25-Hydroxy 30.5 ng/mL [facility] Comment on above: Vitamin D 25(OH) Sta tus Range Deficiency <20 ng/mL (50nmol/L) Insufficiency 20 - 30 ng/mL (50 - 75 nmol/L) Sufficiency 30 - 100 ng/mL (75 - 250 nmol/L) Toxicity >100 ng/mL (>250 nmol/L) Platelets bldOrdered By: Dr. Crum on 02-08-2023 Platelets (Bld) [#/Vol] 254 10*3/uL 150-450 [facility] Serum or plasma albumin jill urement (mass/volume)Ordered By: Dr. Crum on 02-08-2023 Albumin [Mass/Vol] 3.7 g/dL 3.2-5.0 [facility] Serum or plasma albumin/glob ulin mass ratioOrdered By: Dr. Crum on 02-08-2023 Albumin/Globulin [Mass ratio] 1.1 {ratio} 0.9-2.4 [facility] Serum or plasma calcium jill urement (mass/volume)Ordered By: Dr. Crum on 02-08-2023 Calcium [Mass/Vol] 8.9 mg/dL 8.5-10.1 [facility] Serum or plasma creatinine m easurement (mass/volume)Ordered By: Dr. Crum on 02-08-2023 Creatinine [Mass/Vol] 0.73 mg/dL 0.55-1.02 [facility] Comment on above: The validity of the calculated GFR & GFRAA in patients over 70 years has not been determined. Clinical correlation is essential. Serum or plasma folate measu rement (mass/volume)Ordered By: Dr. Crum on 02-08-2023 Folate [Mass/Vol] 4.70 ng/mL 3.1-55.4 [facility] Serum or plasma urea nitroge n measurement (mass/volume)Ordered By: Dr. Crum on 02-08-2023 Urea nitrogen [Mass/Vol] 23 mg/dL 7-18 [facility] Thin prep Papanicolaou smear with manual screeningOrdered By: Dr. Crum on 02-08-2023 Thin prep Papanicolaou smear with manual screening 28 U/L 15-37 [facility] Thin prep Papanicolaou smear with manual screening 9 5-15 [facility] Absolute lymphocyte counton 09-05-2022 Lymphocytes Auto (Unsp spec) [#/Vol] 2.39 10*3/uL 0.83-4.51 [facility] Work Phone: Basophil percentageon 2021 Basophils/100 WBC (Bld) 0.7 % 0-1 [facility] Work Phone: Chloride [Moles/Vol] 102 mmol/L 98-107 [facility] Work Phone: Eosinophils/100 WBC (Bld) 1.0 % 0-5 [facility] Work Phone: Glucose [Mass/Vol] 97 mg/dL 74-106 [facility] Work Phone: Neutrophils (Bld) [#/Vol] 2.9 10*3/uL 2.0-7.7 [facility] Work Phone: Neutrophils/100 WBC (Bld) 48.9 % 47-70 [facility] Work Phone: Potassium [Moles/Vol] 4.1 mmol/L 3.5-5.1 [facility] Work Phone: Comment on above: Slight Hemolysis, Re sult may be falsely increased. Sodium [Moles/Vol] 137 mmol/L 136-145 [facility] Work Phone: WBC (Bld) [#/Vol] 6.0 10*3/uL 4.4-11.0 [facility] Work Phone: Blood erythrocytes count (nu mber/volume)on 09-05-2022 RBC (Bld) [#/Vol] 4.53 10*6/uL 4.2-5.4 [facility] Work Phone: Blood hemoglobin measurement (mass/volume)on 09-05-2022 Hemoglobin (Bld) [Mass/Vol] 14.1 g/dL 12.0-15.0 [facility] Work Phone: Blood lymphocytes/100 leukoc yteson 09-05-2022 Lymphocytes/100 WBC (Bld) 40.2 % 19-41 [facility] Work Phone: Blood monocytes/100 leukocyt eson 09-05-2022 Monocytes/100 WBC (Bld) 8.9 % 0-10 [facility] Work Phone: Blood platelet mean volumeon 09-05-2022 Platelet mean volume (Bld) [Entitic vol] 10.5 fL 6.2-12.0 [facility] Work Phone: Determination of erythrocyte mean corpuscular volume (MCV)on 09-05-2022 MCV (RBC) [Entitic vol] 97.8 fL 81-99 [facility] Work Phone: Hematocrit Auto (Bld) [Volum e fraction]on 09-05-2022 Hematocrit (Bld) [Volume fraction] 44.3 % 37-47 [facility] Work Phone: Laboratory - Chemistry and C hemistry - challengeon 09-05-2022 CO2 [Moles/Vol] 30.0 mmol/L 21.0-32.0 [facility] Work Phone: Magnesium [Mass/Vol] 2.3 mg/dL 1.6-2.6 [facility] Work Phone: Comment on above: Slight Hemolysis, Re sult may be falsely increased. Urea nitrogen/Creatinine [Mass ratio] 30.0 mg/mg 10-20 [facility] Work Phone: Laboratory - Hematology and Cell countson 09-05-2022 Erythrocyte distribution width (RBC) [Entitic vol] 49.2 fL 35.1-43.9 [facility] Work Phone: Erythrocyte distribution width (RBC) [Ratio] 13.7 % 11.6-14.6 [facility] Work Phone: [phone] Immature granulocytes/100 WBC (Bld) 0.300 % 0.0-0.9 [facility] Work Phone: Comment on above: IG% - Immature Granu locytes (promyelocytes, myelocytes and metamyelocytes) > 1% indicates that a LEFT SHIFT is Present. MCH (RBC) [Entitic mass] 31.1 pg 27.0-32.0 [facility] Work Phone: Nucleated RBC/100 WBC (Bld) [Ratio] 0 % 0-5 [facility] Work Phone: [phone] MCHC Auto (RBC) [Mass/Vol]on 09-05-2022 MCHC (RBC) [Mass/Vol] 31.8 g/dL 32-36 [facility] Work Phone: No Panel Informationon 09-05 Estimated Creatinine Clearance Calc 42.68 ml/min [facility] Work Phone: [phone] Estimated GFR (MDRD) Amer 106 mL/min >60 [facility] Work Phone: [phone] Comment on above: GFR Calc Estimated GFR (MDRD) Non-Af Amer 88 mL/min >60 [facility] Work Phone: Comment on above: Non- GFR Calc Thyroid Stimulating Hormone (TSH) 5.03 uIU/mL 0.358-3.74 [facility] Work Phone: Troponin I High Sensitivity 6 pg/mL 3.0-54.0 [facility] Work Phone: [phone] Comment on above: Please Note: New Crystal t Units and Gender Specific Reference Ranges. For more information see Policy Stat Procedure Retsof High Sensitivity Troponin (TNIH) and attachments. Platelets bldon 09-05-2022 Platelets (Bld) [#/Vol] 245 10*3/uL 150-450 [facility] Work Phone: Serum or plasma calcium jill urement (mass/volume)on 09-05-2022 Calcium [Mass/Vol] 9.3 mg/dL 8.5-10.1 [facility] Work Phone: [phone] Serum or plasma creatinine m easurement (mass/volume)on 09-05-2022 Creatinine [Mass/Vol] 0.70 mg/dL 0.55-1.02 [facility] Work Phone: [phone] Comment on above: The validity of the calculated GFR & GFRAA in patients over 70 years has not been determined. Clinical correlation is essential. Serum or plasma urea nitroge n measurement (mass/volume)on 09-05-2022 Urea nitrogen [Mass/Vol] 21 mg/dL 7-18 [facility] Work Phone: [phone] Thin prep Papanicolaou smear with manual screeningon 09-05-2022 Thin prep Papanicolaou smear with manual screening 5 5-15 [facility] Work Phone: [phone] Absolute lymphocyte counton 08-18-2022 Lymphocytes Auto (Unsp spec) [#/Vol] 1.78 10*3/uL 0.83-4.51 [facility] Work Phone: Basophil percentageon 2021 Basophils/100 WBC (Bld) 0.7 % 0-1 [facility] Work Phone: [phone] Bilirubin [Mass/Vol] 0.40 mg/dL 0.20-1.00 [facility] Work Phone: [phone] Comment on above: For patients on eltr ombopag therapy, use of Dimension Retsof TBIL is not recommended. Chloride [Moles/Vol] 101 mmol/L 98-107 [facility] Work Phone: [phone] Cholesterol [Mass/Vol] 344 mg/dL <200 [facility] Work Phone: [phone] Comment on above: <200 mg/dL Desirable 200-240 mg/dL Borderline >240 mg/dL High Risk Eosinophils/100 WBC (Bld) 1.6 % 0-5 [facility] Work Phone: [phone] Glucose [Mass/Vol] 98 mg/dL 74-106 [facility] Work Phone: Neutrophils (Bld) [#/Vol] 2.0 10*3/uL 2.0-7.7 [facility] Work Phone: [phone] Neutrophils/100 WBC (Bld) 47.5 % 47-70 [facility] Work Phone: [phone] Potassium [Moles/Vol] 4.1 mmol/L 3.5-5.1 [facility] Work Phone: [phone] Protein [Mass/Vol] 7.3 g/dL 6.4-8.2 [facility] Work Phone: [phone] Sodium [Moles/Vol] 137 mmol/L 136-145 [facility] Work Phone: [phone] Triglyceride [Mass/Vol] 178 mg/dL <199 [facility] Work Phone: [phone] Comment on above: The drugs N-Acetylcy steine and Metamizole may falsely depress this assay.Serum Triglycerides Reference Interval Normal <150 mg/dL Borderline high 150 - 199 mg/dL High 200 - 499 mg/dL Very High > or = 500 mg/dL WBC (Bld) [#/Vol] 4.3 10*3/uL 4.4-11.0 [facility] Work Phone: Blood erythrocytes count (nu mber/volume)on 08-18-2022 RBC (Bld) [#/Vol] 4.34 10*6/uL 4.2-5.4 [facility] Work Phone: [phone] Blood hemoglobin measurement (mass/volume)on 08-18-2022 Hemoglobin (Bld) [Mass/Vol] 13.6 g/dL 12.0-15.0 [facility] Work Phone: Blood lymphocytes/100 leukoc yteson 08-18-2022 Lymphocytes/100 WBC (Bld) 41.4 % 19-41 [facility] Work Phone: [phone] Blood monocytes/100 leukocyt eson 08-18-2022 Monocytes/100 WBC (Bld) 8.8 % 0-10 [facility] Work Phone: [phone] Blood platelet mean volumeon 08-18-2022 Platelet mean volume (Bld) [Entitic vol] 10.8 fL 6.2-12.0 [facility] Work Phone: [phone] Determination of erythrocyte mean corpuscular volume (MCV)on 08-18-2022 MCV (RBC) [Entitic vol] 98.4 fL 81-99 [facility] Work Phone: [phone] Hematocrit Auto (Bld) [Volum e fraction]on 08-18-2022 Hematocrit (Bld) [Volume fraction] 42.7 % 37-47 [facility] Work Phone: [phone] Laboratory - Chemistry and C hemistry - challengeon 08-18-2022 ALP [Catalytic activity/Vol] 79 U/L 45-117 [facility] Work Phone: [phone] ALT [Catalytic activity/Vol] 12 U/L 13-56 [facility] Work Phone: [phone] CO2 [Moles/Vol] 31.0 mmol/L 21.0-32.0 [facility] Work Phone: [phone] Globulin (S) [Mass/Vol] 3.6 g/dL 2.2-4.2 [facility] Work Phone: [phone] Urea nitrogen/Creatinine [Mass ratio] 22.6 mg/mg 10-20 [facility] Work Phone: [phone] Laboratory - Hematology and Cell countson 08-18-2022 Erythrocyte distribution width (RBC) [Entitic vol] 48.5 fL 35.1-43.9 [facility] Work Phone: [phone] Erythrocyte distribution width (RBC) [Ratio] 13.3 % 11.6-14.6 [facility] Work Phone: [phone] Immature granulocytes/100 WBC (Bld) 0.000 % 0.0-0.9 [facility] Work Phone: [phone] Comment on above: IG% - Immature Granu locytes (promyelocytes, myelocytes and metamyelocytes) > 1% indicates that a LEFT SHIFT is Present. MCH (RBC) [Entitic mass] 31.3 pg 27.0-32.0 [facility] Work Phone: Nucleated RBC/100 WBC (Bld) [Ratio] 0 % 0-5 [facility] Work Phone: [phone] MCHC Auto (RBC) [Mass/Vol]on 08-18-2022 MCHC (RBC) [Mass/Vol] 31.9 g/dL 32-36 [facility] Work Phone: No Panel Informationon 08-18 Estimated GFR (MDRD) Amer 98 mL/min >60 [facility] Work Phone: Comment on above: GFR Calc Estimated GFR (MDRD) Non-Af Amer 81 mL/min >60 [facility] Work Phone: Comment on above: Non- GFR Calc Vitamin D 25-Hydroxy 32.3 ng/mL [facility] Work Phone: [phone] Comment on above: Vitamin D 25(OH) Sta tus Range Deficiency <20 ng/mL (50nmol/L) Insufficiency 20 - 30 ng/mL (50 - 75 nmol/L) Sufficiency 30 - 100 ng/mL (75 - 250 nmol/L) Toxicity >100 ng/mL (>250 nmol/L) Platelets bldon 08-18-2022 Platelets (Bld) [#/Vol] 236 10*3/uL 150-450 [facility] Work Phone: [phone] Serum or plasma albumin jill urement (mass/volume)on 08-18-2022 Albumin [Mass/Vol] 3.7 g/dL 3.2-5.0 [facility] Work Phone: [phone] Serum or plasma albumin/glob ulin mass ratioon 08-18-2022 Albumin/Globulin [Mass ratio] 1.0 {ratio} 0.9-2.4 [facility] Work Phone: [phone] Serum or plasma calcium jill urement (mass/volume)on 08-18-2022 Calcium [Mass/Vol] 9.2 mg/dL 8.5-10.1 [facility] Work Phone: Serum or plasma cholesterol in HDL measurement (mass/volume)on 08-18-2022 Cholesterol in HDL [Mass/Vol] 105 mg/dL >40 [facility] Work Phone: Comment on above: The drugs N-Acetylcy steine and Metamizole may falsely depress this assay. Reference Range HDL <40 mg/dL Low HDL Cholesterol HDL >or= 60 mg/dL High HDL Cholesterol Serum or plasma cholesterol in VLDL measurement (mass/volume)on 08-18-2022 Cholesterol in VLDL [Mass/Vol] 36 mg/dL 5-40 [facility] Work Phone: Serum or plasma creatinine m easurement (mass/volume)on 08-18-2022 Creatinine [Mass/Vol] 0.75 mg/dL 0.55-1.02 [facility] Work Phone: Comment on above: The validity of the calculated GFR & GFRAA in patients over 70 years has not been determined. Clinical correlation is essential. Serum or plasma low density lipoprotein (LDL) cholesterol measurement (mass/volume)on 08-18-2022 Cholesterol in LDL [Mass/Vol] 203 mg/dL 0-130 [facility] Work Phone: Serum or plasma urea nitroge n measurement (mass/volume)on 08-18-2022 Urea nitrogen [Mass/Vol] 17 mg/dL 7-18 [facility] Work Phone: [phone] Thin prep Papanicolaou smear with manual screeningon 08-18-2022 Thin prep Papanicolaou smear with manual screening 27 U/L 15-37 [facility] Work Phone: [phone] Thin prep Papanicolaou smear with manual screening 5 5-15 [facility] Work Phone: [phone] Laboratory - Chemistry and C hemistry - challengeon 06-15-2022 T4 [Mass/Vol] 6.7 ug/dL 4.8-13.9 [facility] Work Phone: No Panel Informationon 06-15 Thyroid Stimulating Hormone (TSH) 3.26 uIU/mL 0.358-3.74 [facility] Work Phone: Laboratory - Chemistry and C hemistry - challengeon 03-17-2022 Free T4 [Mass/Vol] 0.96 ng/dL 0.76-1.46 [facility] Work Phone: No Panel Informationon 03-17 Free Triiodothyronine (T3) pg/dL 2.3 pg/mL 2.18-3.98 [facility] Work Phone: Thyroid Stimulating Hormone (TSH) 0.16 uIU/mL 0.358-3.74 [facility] Work Phone: CV VENOUS LEG RTon 2 CV VENOUS LEG RT [place] [address] Patient: RICHIE OSWALD Phone#: : 1950 Age: 71 Gender: F Pt. Type: Out Account: [id number] Location: [facility] Ordering: CHERY SUMMERS Exam Date: 03/04/2022/13:22 Family Phys: PRAVEEN CRUM Charge Code: [id number] Physician: Ingham Order #: [id number] DLP Dose#: PROCEDURE: VENOUS DOPPLER RT LEG COMPARISON: None. INDICATIONS: Pain TECHNIQUE: Color duplex Doppler ultrasound evaluation analysis was performed in the usual manner. WELL DIGGER: SIA RISK FACTORS FOR VENOUS DISEASE: LE trauma/injury RT ankle sprain Other Pain and swelling EXAMINATION: RIGHT +Present -Reduced o Absent LEFT SPONT PHASIC AUG REFLUX COMP SPONT PHASIC AUG REFLUX COMP + + + o + CFV + + + o + + SFJ + + + o + FV (prox) + FV (mid) + FV (dist) + + + o + POP V + + + o + T/P TRUNK + + + o + PTV + + + o + PERONEAL V + GSV GASTROC SOLEAL V WELL DIGGER'S NOTES: Nonvascular structure noted behind the knee Continued Report - Page 2 of 2 Patient: RICHIE OSWALD Phone#: : 1950 Age: 71 Gender: F Pt. Type: Out Account: [id number] Location: 052 Ordering: CHERY KRISTOPHER Exam Date: 03/04/2022/13:22 Family Phys: PRAVEEN CRUM Charge Code: [id number] Physician: Ingham Order #: [id number] DLP Dose#: FINDINGS: THROMBI: None visible. COMPRESSIBILITY: Normal. OTHER: Popliteal cyst is present. CONCLUSION: 1. There is no evidence of superficial or deep vein thrombus. Dictated by: Carrie Gooden MD on 03/04/2022 at 13:53 Approved by: Carrie Gooden MD on 03/04/2022 at 13:55 Normal [facility] EMERGENCY REPORTon 2 EMERGENCY REPORT [facility] EMERGENCY ROOM REPORT NAME ACCOUNT SEX AGE ADMIT DISCHARGE PT MED. RECORD# NUMBER DATE DATE TYPE MARGRET, [id number] F 71 02/18/22 02/18/22 3 [facility] [id number] ROOM: ER DATE OF : 1950 DICTATING PHYSICIAN: Jace Mathews CHIEF COMPLAINT: Ankle injury. HISTORY OF PRESENT ILLNESS: The patient states that she missed a step going down the steps this morning and had an inversion type injury to the right ankle. She did not hear a pop or crack but had a sudden onset of pain over the anterolateral aspect of the right ankle. She has developed swelling to that area. She is able to weight bear some. She has no other injuries or complaints. No pain to the knee. The pain seems to be focused over the lateral aspect of the ankle. PAST MEDICAL HISTORY: Reflux and irritable bowel syndrome, Raynaud's, fibromyalgia, hypoglycemia. PAST SURGICAL HISTORY: She has had a number of previous orthopedic surgeries and a recent knee injection for a Alvares's cyst. MEDICATIONS: Per medication reconciliation list. SOCIAL HISTORY: The patient is and lives at home. She does not smoke. She drinks alcohol occasional. PHYSICAL EXAMINATION: GENERAL: This is a 71-year-old pleasant female who is alert, appropriate and does not appear toxic or in acute distress. Exam is generally focused to the right lower extremity. She has no tenderness at the hip, thigh, knee or lower leg. She has moderate anterolateral swelling at the ankle area. It seems to be focused over the distal medial fibular area. Skin is intact. She does not seem to have tenderness at the very distal fibula or talofibular ligamentous areas. There is more tenderness over the distal fibula and anterior talofibular and interosseal joint areas. No medial ankle pain or swelling. No posterior ankle or Achilles swelling or deformity. No midfoot tenderness. Normal neurovascular exam. VITAL SIGNS: Essentially all within normal limits. DIAGNOSTIC DATA: Right ankle x-ray shows minimal degenerative changes. I do not see evidence of fracture. DIAGNOSIS: Right ankle sprain, which seems to be more consistent with a high sprain. PLAN/DISPOSITION: I discussed management with her. We did place her in an Page 1 of 2 RICHIE OSWALD Emergency Room Report EDDIE OSWALDYN : 1950 OrthoGlass stirrup splint. Ice, elevation, limited weight bearing as tolerated. Tylenol and ibuprofen as needed. She is to follow up with Orthopedics in 4-5 days if pain persists. Return if symptoms worsen. Dictated By: Jace Mathews MD 02/18/22 10:51 JOB #: [id number] Transcribed By: sisi 02/19/22 08:41 Electronically signed by: KOFFI Mathews M.D. 02/26/22 07:33 Page 2 of 2 RICHIE OSWALD Emergency Room Report Normal [facility] ANKLE COMPLETE RTon 02-19-20 ANKLE COMPLETE RT [place] [address] Patient: RICHIE OSWALD Phone#: : 1950 Age: 71 Gender: F Pt. Type: ER Account: [id number] Location: 052 Ordering: JACE MATHEWS Exam Date: 02/18/2022/10:24 Family Phys: PRAVEEN CRUM Charge Code: [id number] Physician: Ingham Order #: [id number] DLP Dose#: PROCEDURE: X-RAY ANKLE COMPLETE RT MIN 3 VIEWS COMPARISON: None. INDICATIONS: Trauma. FINDINGS: BONES: Normal. No significant arthropathy or acute abnormality. No fracture or dislocation. SOFT TISSUES: Soft tissue swelling over the lateral malleolus. EFFUSION: None visible. OTHER: Negative. CONCLUSION: 1. Soft tissue swelling without acute osseous abnormality. Dictated by: Farzaneh Cardenas MD on 02/18/2022 at 10:43 Approved by: Farzaneh Cardenas MD on 02/18/2022 at 10:45 Normal [facility] MR KNEE W/O LTon 02-04-2022 MR KNEE W/O LT [place] [address] Patient: RICHIE OSWALD Phone#: : 1950 Age: 71 Gender: F Pt. Type: Out Account: [id number] Location: Ordering: BRANDON SEXTON Exam Date: 02/04/2022/13:09 Family Phys: Charge Code: [id number] Physician: Ingham Order #: [id number] DLP Dose#: PROCEDURE: MRI KNEE LT WITHOUT CONTRAST COMPARISON: None. INDICATIONS: Pain in left knee. TECHNIQUE: A complete multi-planar MRI was performed. FINDINGS: MEDIAL COMPARTMENT MEDIAL MENISCUS: Normal. No visible tear or significant degeneration. HYALINE CARTILAGE: Normal. No visible defect. BONES: Small subchondral cyst at the tibial spines. MCL AND MEDIAL CAPSULE: Normal medial collateral ligament and medial capsule. LATERAL COMPARTMENT LATERAL MENISCUS: There is a partial tear of the posterior root attachment, series 3, image 18. There is abnormal internal signal of the anterior horn without appreciable extension to the cartilage surface, series 6, image 10 HYALINE CARTILAGE: There is focal cartilage fissuring in mid tibial plateau, series 3, image 19. BONES: Normal. No marrow pathology, fracture, or significant arthropathy. LCL/POSTEROLAT. COMPLEX: Normal lateral collateral ligament, fascicles, lateral capsule and ligaments. ACL: Partial ACL tear at the tibial attachment, series 6, image 16 PCL: Normal appearing ligament. MENISCOFEMORAL: Normal meniscofemoral ligaments. PATELLOFEMORAL: There is focal full thickness cartilage thinning on the medial patellar facet, series 7, image 26. There is associated underlying subchondral edema. EFFUSION: There is a small joint effusion. OTHER: There is a large ganglion posterior to the medial meniscus, series 6, image 19, measures 1.8 x 0.7 x 2.0 cm. Continued Report - Page 2 of 2 Patient: RICHIE OSWALD Phone#: : 1950 Age: 71 Gender: F Pt. Type: Out Account: [id number] Location: Ordering: BRANDON SEXTON Exam Date: 02/04/2022/13:09 Family Phys: Charge Code: [id number] Physician: Ingham Order #: [id number] DLP Dose#: CONCLUSION: 1. Lateral meniscus posterior horn root attachment partial tear 2. Cartilage fissuring of the lateral tibial plateau and cartilage thinning medial patella facet 3. Partial ACL tear at the tibial attachment 4. Large ganglion posterior to the medial meniscus Dictated by: Farzaneh Cardenas MD on 02/08/2022 at 20:39 Approved by: Farzaneh Cardenas MD on 02/08/2022 at 20:50 Normal [facility] Absolute lymphocyte counton 12-21-2021 Lymphocytes Auto (Unsp spec) [#/Vol] 2.49 10*3/uL 0.83-4.51 [facility] Work Phone: Basophil percentageon 2021 Basophils/100 WBC (Bld) 0.7 % 0-1 [facility] Work Phone: Bilirubin [Mass/Vol] 0.30 mg/dL 0.20-1.00 [facility] Work Phone: Comment on above: For patients on eltr ombopag therapy, use of Dimension Retsof TBIL is not recommended. Chloride [Moles/Vol] 104 mmol/L 98-107 [facility] Work Phone: Eosinophils/100 WBC (Bld) 1.5 % 0-5 [facility] Work Phone: Glucose [Mass/Vol] 86 mg/dL 74-106 [facility] Work Phone: Neutrophils (Bld) [#/Vol] 2.9 10*3/uL 2.0-7.7 [facility] Work Phone: Neutrophils/100 WBC (Bld) 46.4 % 47-70 [facility] Work Phone: [phone] Potassium [Moles/Vol] 4.0 mmol/L 3.5-5.1 [facility] Work Phone: [phone] Protein [Mass/Vol] 7.9 g/dL 6.4-8.2 [facility] Work Phone: [phone] Sodium [Moles/Vol] 138 mmol/L 136-145 [facility] Work Phone: [phone] WBC (Bld) [#/Vol] 6.1 10*3/uL 4.4-11.0 [facility] Work Phone: [phone] Blood erythrocytes count (nu mber/volume)on 12-21-2021 RBC (Bld) [#/Vol] 4.71 10*6/uL 4.2-5.4 [facility] Work Phone: [phone] Blood hemoglobin measurement (mass/volume)on 12-21-2021 Hemoglobin (Bld) [Mass/Vol] 14.3 g/dL 12.0-15.0 [facility] Work Phone: [phone] Blood lymphocytes/100 leukoc yteson 12-21-2021 Lymphocytes/100 WBC (Bld) 40.6 % 19-41 [facility] Work Phone: [phone] Blood monocytes/100 leukocyt eson 12-21-2021 Monocytes/100 WBC (Bld) 10.6 % 0-10 [facility] Work Phone: [phone] Blood platelet mean volumeon 12-21-2021 Platelet mean volume (Bld) [Entitic vol] 10.9 fL 6.2-12.0 [facility] Work Phone: [phone] Determination of erythrocyte mean corpuscular volume (MCV)on 12-21-2021 MCV (RBC) [Entitic vol] 94.7 fL 81-99 [facility] Work Phone: [phone] Giardia lamblia ag stool EIA on 12-21-2021 G. lamblia Ag IA Ql (Stl) Negative Negative [facility] Work Phone: [phone] Comment on above: Performed at: [address] [place] [id number] [place], [place] [id number] Director: Emery Hallman PhD, Phone: [phone] Hematocrit Auto (Bld) [Volum e fraction]on 12-21-2021 Hematocrit (Bld) [Volume fraction] 44.6 % 37-47 [facility] Work Phone: Laboratory - Chemistry and C hemistry - challengeon 12-21-2021 ALP [Catalytic activity/Vol] 96 U/L 45-117 [facility] Work Phone: ALT [Catalytic activity/Vol] 21 U/L 13-56 [facility] Work Phone: Amylase [Catalytic activity/Vol] 24 U/L 5-55 [facility] Work Phone: CO2 [Moles/Vol] 30.0 mmol/L 21.0-32.0 [facility] Work Phone: Globulin (S) [Mass/Vol] 4.1 g/dL 2.2-4.2 [facility] Work Phone: Lipase [Catalytic activity/Vol] 62 U/L 73-393 [facility] Work Phone: Magnesium [Mass/Vol] 2.5 mg/dL 1.6-2.6 [facility] Work Phone: Urea nitrogen/Creatinine [Mass ratio] 20.9 mg/mg 10-20 [facility] Work Phone: Laboratory - Hematology and Cell countson 12-21-2021 Erythrocyte distribution width (RBC) [Entitic vol] 45.6 fL 35.1-43.9 [facility] Work Phone: Erythrocyte distribution width (RBC) [Ratio] 13.0 % 11.6-14.6 [facility] Work Phone: Immature granulocytes/100 WBC (Bld) 0.200 % 0.0-0.9 [facility] Work Phone: Comment on above: IG% - Immature Granu locytes (promyelocytes, myelocytes and metamyelocytes) > 1% indicates that a LEFT SHIFT is Present. MCH (RBC) [Entitic mass] 30.4 pg 27.0-32.0 [facility] Work Phone: Nucleated RBC/100 WBC (Bld) [Ratio] 0 % 0-5 [facility] Work Phone: [phone] MCHC Auto (RBC) [Mass/Vol]on 12-21-2021 MCHC (RBC) [Mass/Vol] 32.1 g/dL 32-36 [facility] Work Phone: No Panel Informationon 12-21 Anti-Gliadin IgA Antibody 4 units [facility] Work Phone: [phone] Comment on above: Negative 0 - 19 Weak Positive 20 - 30 Moderate to Strong Positive >30 Anti-Gliadin IgG Antibody 5 units [facility] Work Phone: [phone] Comment on above: Negative 0 - 19 Weak Positive 20 - 30 Moderate to Strong Positive >30 Endomysial IgA Antibody Negative Negative [facility] Work Phone: [phone] Estimated GFR (MDRD) Amer 89 mL/min >60 [facility] Work Phone: [phone] Comment on above: GFR Calc Estimated GFR (MDRD) Non-Af Amer 74 mL/min >60 [facility] Work Phone: [phone] Comment on above: Non- GFR Calc Tissue Transglutaminase IgG Ab 11 U/mL [facility] Work Phone: [phone] Comment on above: Negative 0 - 5 Weak Positive 6 - 9 Positive >9 Enteric Bacteriology [facility] Work Phone: Platelets bldon 12-21-2021 Platelets (Bld) [#/Vol] 265 10*3/uL 150-450 [facility] Work Phone: [phone] Serum IgA measurement (units /volume)on 12-21-2021 IgA Qn (S) 130 mg/dL [facility] Work Phone: [phone] Comment on above: Performed at: [address] [id number] Director: Emery Hallman PhD, Phone: [phone] Serum or plasma albumin jill urement (mass/volume)on 12-21-2021 Albumin [Mass/Vol] 3.8 g/dL 3.2-5.0 [facility] Work Phone: Serum or plasma albumin/glob ulin mass ratioon 12-21-2021 Albumin/Globulin [Mass ratio] 0.9 {ratio} 0.9-2.4 [facility] Work Phone: Serum or plasma calcium jill urement (mass/volume)on 12-21-2021 Calcium [Mass/Vol] 9.4 mg/dL 8.5-10.1 [facility] Work Phone: [phone] Serum or plasma creatinine m easurement (mass/volume)on 12-21-2021 Creatinine [Mass/Vol] 0.82 mg/dL 0.55-1.02 [facility] Work Phone: Comment on above: The validity of the calculated GFR & GFRAA in patients over 70 years has not been determined. Clinical correlation is essential. Serum or plasma urea nitroge n measurement (mass/volume)on 12-21-2021 Urea nitrogen [Mass/Vol] 17 mg/dL 7-18 [facility] Work Phone: Serum tissue transglutaminas e IgA antibody assay (units/volume)on 12-21-2021 tTG IgA Qn (S) <2 U/mL [facility] Work Phone: Comment on above: Negative 0 - 3 Weak Positive 4 - 10 Positive >10 Tissue Transglutaminase (tTG) has been identified as the endomysial antigen. Studies have demonstr- ated that endomysial IgA antibodies have over 99% specificity for gluten sensitive enteropathy. Thin prep Papanicolaou smear with manual screeningon 12-21-2021 Thin prep Papanicolaou smear with manual screening 28 U/L 15-37 [facility] Work Phone: [phone] Thin prep Papanicolaou smear with manual screening 4 5-15 [facility] Work Phone: Absolute lymphocyte counton 12-14-2021 Lymphocytes Auto (Unsp spec) [#/Vol] 1.16 10*3/uL 0.83-4.51 [facility] Work Phone: Basophil percentageon 2021 Basophils/100 WBC (Bld) 0.5 % 0-1 [facility] Work Phone: Bilirubin [Mass/Vol] 0.20 mg/dL 0.20-1.00 [facility] Work Phone: Comment on above: For patients on eltr ombopag therapy, use of Dimension Retsof TBIL is not recommended. Chloride [Moles/Vol] 102 mmol/L 98-107 [facility] Work Phone: Eosinophils/100 WBC (Bld) 0.0 % 0-5 [facility] Work Phone: Glucose [Mass/Vol] 116 mg/dL 74-106 [facility] Work Phone: Comment on above: Fasting Glucose resu lt from 100 to 125 mg/dL suggests IMPAIRED HOMEOSTASIS per A.D.A. criteria. Neutrophils (Bld) [#/Vol] 5.2 10*3/uL 2.0-7.7 [facility] Work Phone: Neutrophils/100 WBC (Bld) 78.5 % 47-70 [facility] Work Phone: Potassium [Moles/Vol] 4.7 mmol/L 3.5-5.1 [facility] Work Phone: Protein [Mass/Vol] 7.3 g/dL 6.4-8.2 [facility] Work Phone: Sodium [Moles/Vol] 139 mmol/L 136-145 [facility] Work Phone: WBC (Bld) [#/Vol] 6.6 10*3/uL 4.4-11.0 [facility] Work Phone: Blood erythrocytes count (nu mber/volume)on 12-14-2021 RBC (Bld) [#/Vol] 4.40 10*6/uL 4.2-5.4 [facility] Work Phone: Blood hemoglobin measurement (mass/volume)on 12-14-2021 Hemoglobin (Bld) [Mass/Vol] 13.5 g/dL 12.0-15.0 [facility] Work Phone: Blood lymphocytes/100 leukoc yteson 12-14-2021 Lymphocytes/100 WBC (Bld) 17.7 % 19-41 [facility] Work Phone: [phone] Blood monocytes/100 leukocyt eson 12-14-2021 Monocytes/100 WBC (Bld) 3.0 % 0-10 [facility] Work Phone: Blood platelet mean volumeon 12-14-2021 Platelet mean volume (Bld) [Entitic vol] 11.1 fL 6.2-12.0 [facility] Work Phone: [phone] Determination of erythrocyte mean corpuscular volume (MCV)on 12-14-2021 MCV (RBC) [Entitic vol] 98.0 fL 81-99 [facility] Work Phone: Hematocrit Auto (Bld) [Volum e fraction]on 12-14-2021 Hematocrit (Bld) [Volume fraction] 43.1 % 37-47 [facility] Work Phone: Laboratory - Chemistry and C hemistry - challengeon 12-14-2021 ALP [Catalytic activity/Vol] 79 U/L 45-117 [facility] Work Phone: [phone] ALT [Catalytic activity/Vol] 15 U/L 13-56 [facility] Work Phone: [phone] CO2 [Moles/Vol] 29.0 mmol/L 21.0-32.0 [facility] Work Phone: [phone] Free T4 [Mass/Vol] 1.10 ng/dL 0.76-1.46 [facility] Work Phone: Globulin (S) [Mass/Vol] 3.5 g/dL 2.2-4.2 [facility] Work Phone: [phone] Urea nitrogen/Creatinine [Mass ratio] 32.8 mg/mg 10-20 [facility] Work Phone: [phone] Laboratory - Hematology and Cell countson 12-14-2021 Erythrocyte distribution width (RBC) [Entitic vol] 48.0 fL 35.1-43.9 [facility] Work Phone: [phone] Erythrocyte distribution width (RBC) [Ratio] 13.3 % 11.6-14.6 [facility] Work Phone: [phone] Immature granulocytes/100 WBC (Bld) 0.300 % 0.0-0.9 [facility] Work Phone: [phone] Comment on above: IG% - Immature Granu locytes (promyelocytes, myelocytes and metamyelocytes) > 1% indicates that a LEFT SHIFT is Present. MCH (RBC) [Entitic mass] 30.7 pg 27.0-32.0 [facility] Work Phone: [phone] Nucleated RBC/100 WBC (Bld) [Ratio] 0 % 0-5 [facility] Work Phone: [phone] MCHC Auto (RBC) [Mass/Vol]on 12-14-2021 MCHC (RBC) [Mass/Vol] 31.3 g/dL 32-36 [facility] Work Phone: [phone] Panel Informationon 12-14 Estimated GFR (MDRD) Amer 101 mL/min >60 [facility] Work Phone: [phone] Comment on above: GFR Calc Estimated GFR (MDRD) Non-Af Amer 83 mL/min >60 [facility] Work Phone: [phone] Comment on above: Non- GFR Calc Thyroid Stimulating Hormone (TSH) 0.28 uIU/mL 0.358-3.74 [facility] Work Phone: [phone] Platelets bldon 12-14-2021 Platelets (Bld) [#/Vol] 272 10*3/uL 150-450 [facility] Work Phone: [phone] Serum or plasma albumin jill urement (mass/volume)on 12-14-2021 Albumin [Mass/Vol] 3.8 g/dL 3.2-5.0 [facility] Work Phone: Serum or plasma albumin/glob ulin mass ratioon 12-14-2021 Albumin/Globulin [Mass ratio] 1.1 {ratio} 0.9-2.4 [facility] Work Phone: Serum or plasma calcium jill urement (mass/volume)on 12-14-2021 Calcium [Mass/Vol] 9.0 mg/dL 8.5-10.1 [facility] Work Phone: Serum or plasma creatinine m easurement (mass/volume)on 12-14-2021 Creatinine [Mass/Vol] 0.73 mg/dL 0.55-1.02 [facility] Work Phone: Comment on above: The validity of the calculated GFR & GFRAA in patients over 70 years has not been determined. Clinical correlation is essential. Serum or plasma urea nitroge n measurement (mass/volume)on 12-14-2021 Urea nitrogen [Mass/Vol] 24 mg/dL 7-18 [facility] Work Phone: Thin prep Papanicolaou smear with manual screeningon 12-14-2021 Thin prep Papanicolaou smear with manual screening 20 U/L 15-37 [facility] Work Phone: Thin prep Papanicolaou smear with manual screening 8 5-15 [facility] Work Phone: [phone] Absolute lymphocyte counton 12-09-2021 Lymphocytes Auto (Unsp spec) [#/Vol] 1.65 10*3/uL 0.83-4.51 [facility] Work Phone: Basophil percentageon 2021 Basophils/100 WBC (Bld) 0.7 % 0-1 [facility] Work Phone: Chloride [Moles/Vol] 103 mmol/L 98-107 [facility] Work Phone: Eosinophils/100 WBC (Bld) 1.5 % 0-5 [facility] Work Phone: Glucose [Mass/Vol] 102 mg/dL 74-106 [facility] Work Phone: Comment on above: Fasting Glucose resu lt from 100 to 125 mg/dL suggests IMPAIRED HOMEOSTASIS per A.D.A. criteria. Neutrophils (Bld) [#/Vol] 1.9 10*3/uL 2.0-7.7 [facility] Work Phone: Neutrophils/100 WBC (Bld) 47.2 % 47-70 [facility] Work Phone: Potassium [Moles/Vol] 4.2 mmol/L 3.5-5.1 [facility] Work Phone: Sodium [Moles/Vol] 138 mmol/L 136-145 [facility] Work Phone: WBC (Bld) [#/Vol] 4.1 10*3/uL 4.4-11.0 [facility] Work Phone: Blood erythrocytes count (nu mber/volume)on 12-09-2021 RBC (Bld) [#/Vol] 4.35 10*6/uL 4.2-5.4 [facility] Work Phone: Blood hemoglobin measurement (mass/volume)on 12-09-2021 Hemoglobin (Bld) [Mass/Vol] 13.2 g/dL 12.0-15.0 [facility] Work Phone: Blood lymphocytes/100 leukoc yteson 12-09-2021 Lymphocytes/100 WBC (Bld) 40.0 % 19-41 [facility] Work Phone: Blood monocytes/100 leukocyt eson 12-09-2021 Monocytes/100 WBC (Bld) 10.4 % 0-10 [facility] Work Phone: Blood platelet mean volumeon 12-09-2021 Platelet mean volume (Bld) [Entitic vol] 10.9 fL 6.2-12.0 [facility] Work Phone: Determination of erythrocyte mean corpuscular volume (MCV)on 12-09-2021 MCV (RBC) [Entitic vol] 94.5 fL 81-99 [facility] Work Phone: [phone] Hematocrit Auto (Bld) [Volum e fraction]on 12-09-2021 Hematocrit (Bld) [Volume fraction] 41.1 % 37-47 [facility] Work Phone: [phone] Laboratory - Chemistry and C hemistry - challengeon 12-09-2021 CO2 [Moles/Vol] 30.0 mmol/L 21.0-32.0 [facility] Work Phone: [phone] Urea nitrogen/Creatinine [Mass ratio] 30.8 mg/mg 10-20 [facility] Work Phone: [phone] Laboratory - Hematology and Cell countson 12-09-2021 Erythrocyte distribution width (RBC) [Entitic vol] 46.5 fL 35.1-43.9 [facility] Work Phone: [phone] Erythrocyte distribution width (RBC) [Ratio] 13.2 % 11.6-14.6 [facility] Work Phone: [phone] Immature granulocytes/100 WBC (Bld) 0.200 % 0.0-0.9 [facility] Work Phone: [phone] Comment on above: IG% - Immature Granu locytes (promyelocytes, myelocytes and metamyelocytes) > 1% indicates that a LEFT SHIFT is Present. MCH (RBC) [Entitic mass] 30.3 pg 27.0-32.0 [facility] Work Phone: [phone] Nucleated RBC/100 WBC (Bld) [Ratio] 0 % 0-5 [facility] Work Phone: [phone] MCHC Auto (RBC) [Mass/Vol]on 12-09-2021 MCHC (RBC) [Mass/Vol] 32.1 g/dL 32-36 [facility] Work Phone: [phone] Panel Informationon 12-09 Estimated Creatinine Clearance Calc 43.30 ml/min [facility] Work Phone: [phone] Estimated GFR (MDRD) Amer 94 mL/min >60 [facility] Work Phone: Comment on above: GFR Calc Estimated GFR (MDRD) Non-Af Amer 78 mL/min >60 [facility] Work Phone: Comment on above: Non- GFR Calc Troponin I High Sensitivity 6 pg/mL 3.0-54.0 [facility] Work Phone: Comment on above: Please Note: New Crystal t Units and Gender Specific Reference Ranges. For more information see Policy Stat Procedure Retsof High Sensitivity Troponin (TNIH) and attachments. Platelets bldon 12-09-2021 Platelets (Bld) [#/Vol] 230 10*3/uL 150-450 [facility] Work Phone: Serum or plasma calcium jill urement (mass/volume)on 12-09-2021 Calcium [Mass/Vol] 9.2 mg/dL 8.5-10.1 [facility] Work Phone: Serum or plasma creatinine m easurement (mass/volume)on 12-09-2021 Creatinine [Mass/Vol] 0.78 mg/dL 0.55-1.02 [facility] Work Phone: Comment on above: The validity of the calculated GFR & GFRAA in patients over 70 years has not been determined. Clinical correlation is essential. Serum or plasma urea nitroge n measurement (mass/volume)on 12-09-2021 Urea nitrogen [Mass/Vol] 24 mg/dL 7-18 [facility] Work Phone: Thin prep Papanicolaou smear with manual screeningon 12-09-2021 Thin prep Papanicolaou smear with manual screening 5 5-15 [facility] Work Phone: Vital Signs Date Time Vital Sign Value Performing Clinician Therese tavarez 06-13-2025 20:03-0400 Body temperature 98.4 [degF] Dr. Praveen Crum MD Work Phone: [facility] 06-13-2025 20:03-0400 Diastolic blood pressure 89 mm[Hg] Dr. Praveen Crum MD Work Phone: [phone] [place] [address] 06-13-2025 20:03-0400 Heart rate 75 /min Dr. Praveen Crum MD Work Phone: [phone] [place] [address] 06-13-2025 20:03-0400 Respiratory rate 16 /min Dr. Praveen Crum MD Work Phone: [phone] [place] [address] 06-13-2025 20:03-0400 SaO2% (BldA) [Mass fraction] 100 % Dr. Praveen Crum MD Work Phone: [phone] [place] [address] 06-13-2025 20:03-0400 Systolic blood pressure 165 mm[Hg] Dr. Praveen Crum MD Work Phone: [phone] [place] [address] 06-13-2025 19:29-0400 Inhaled oxygen flow rate 2 L/min Dr. Praveen Crum MD Work Phone: [phone] [place] [address] 06-13-2025 17:30-0400 Body height 160.[address] Praveen Crum MD Work Phone: [phone] [place] [address] 06-13-2025 17:30-0400 Body mass index (BMI) [Ratio] 23.6 kg/m2 Dr. Praveen Crum MD Work Phone: [phone] [place] [address] 06-13-2025 17:30-0400 Body weight 60.[address] Praveen Crum MD Work Phone: [phone] [place] [address] 01-25-2025 13:08-0500 Body height 160.[address] Praveen Crum MD Work Phone: [phone] [place] [address] 01-25-2025 13:08-0500 Body mass index (BMI) [Ratio] 27.1 kg/m2 Dr. Praveen Crum MD Work Phone: [phone] [place] [address] 01-25-2025 13:08-0500 Body weight 69.[address] Praveen Crum MD Work Phone: [phone] [place] [address] 12-20-2023 17:49-0500 Diastolic blood pressure 86 mm[Hg] [facility] 12-20-2023 17:49-0500 Heart rate 74 /min [facility] 12-20-2023 17:49-0500 Respiratory rate 16 /min [facility] 12-20-2023 17:49-0500 SaO2% (BldA) [Mass fraction] 95 % [facility] 12-20-2023 17:49-0500 Systolic blood pressure 161 mm[Hg] [facility] 12-20-2023 14:08-0500 Body height 160.02 cm [facility] 12-20-2023 14:08-0500 Body mass index (BMI) [Ratio] 29.7 kg/m2 [facility] 12-20-2023 14:08-0500 Body temperature 97.3 [degF] [facility] 12-20-2023 14:08-0500 Body weight 76.2 kg [facility] 01-03-2023 09:23-0500 Body temperature 98 [degF] Dr. Praveen Crum Work Phone: [facility] 01-03-2023 09:23-0500 Diastolic blood pressure 76 mm[Hg] Dr. Praveen Crum Work Phone: [facility] 01-03-2023 09:23-0500 Heart rate 80 /min Dr. Praveen Crum Work Phone: [facility] 01-03-2023 09:23-0500 Respiratory rate 14 /min Dr. Praveen Crum Work Phone: [facility] 01-03-2023 09:23-0500 SaO2% (BldA) [Mass fraction] 96 % Dr. Praveen Crum Work Phone: [facility] 01-03-2023 09:23-0500 Systolic blood pressure 128 mm[Hg] Dr. Praveen Crum Work Phone: [facility] 09-05-2022 07:11-0400 Body height 160.02 cm [facility] Work Phone: 09-05-2022 07:11-0400 Body mass index (BMI) [Ratio] 26.6 kg/m2 [facility] Work Phone: 09-05-2022 07:11-0400 Body temperature 97.4 [degF] [facility] Work Phone: 09-05-2022 07:11-0400 Body weight 68.1 kg [facility] Work Phone: 09-05-2022 07:11-0400 Diastolic blood pressure 84 mm[Hg] [facility] Work Phone: 09-05-2022 07:11-0400 Heart rate 71 /min [facility] Work Phone: 09-05-2022 07:11-0400 Respiratory rate 16 /min [facility] Work Phone: 09-05-2022 07:11-0400 SaO2% (BldA) [Mass fraction] 98 % [facility] Work Phone: 09-05-2022 07:11-0400 Systolic blood pressure 150 mm[Hg] [facility] Work Phone: 12-09-2021 14:30-0500 Diastolic blood pressure 77 mm[Hg] [facility] Work Phone: 12-09-2021 14:30-0500 Heart rate 68 /min [facility] Work Phone: 12-09-2021 14:30-0500 Respiratory rate 15 /min [facility] Work Phone: 12-09-2021 14:30-0500 SaO2% (BldA) [Mass fraction] 97 % [facility] Work Phone: 12-09-2021 14:30-0500 Systolic blood pressure 125 mm[Hg] [facility] Work Phone: 12-09-2021 12:04-0500 Body height 160.02 cm [facility] Work Phone: 12-09-2021 12:04-0500 Body mass index (BMI) [Ratio] 28.8 kg/m2 [facility] Work Phone: 12-09-2021 12:04-0500 Body temperature 98.5 [degF] [facility] Work Phone: 12-09-2021 12:04-0500 Body weight 73.93 kg [facility] Work Phone: Encounters Encounter Date Encounter Type Care Provider Facility Start: 06-13-2025 Evaluation and management of inpatient Dr. Hui Morel MD -Intensive Care Unit Work Phone: Start: 03-15-2025 End: 03-15-[address] Praveen Crum MD Work Phone: [facility] Work Phone: Start: 03-15-2025 End: 03-15-[address] Praveen Crum MD Work Phone: -[facility] Work Phone: Start: 03-15-2025 End: 03-15-2025 ambulatory Praveen Crum Facility:[facility] Start: 02-05-2025 End: 03-05-2025 ambulatory PRAVEEN CRUM MD Facility:[facility] Start: 01-25-2025 End: 01-25-2025 Patient encounter procedure Ruthann OWEN [facility] Work Phone: Start: 01-25-2025 End: 01-25-2025 ambulatory Praveen Crum Facility:[facility] Start: 10-30-2024 End: 10-30-[address] Praveen Crum MD Work Phone: [facility] Work Phone: Start: 10-30-2024 End: 10-30-[address] Praveen Crum MD Work Phone: -Outpatient Bone Densitometry Work Phone: Start: 10-30-2024 End: 10-30-2024 ambulatory Praveen Crum Facility:[facility] Start: 03-05-2024 End: 03-05-2024 ambulatory [facility] Work Phone: Start: 03-05-2024 End: 03-05-2024 Patient encounter procedure [facility] Work Phone: Start: 12-20-2023 End: 12-20-2023 Emergency department patient visit [facility]-Emergency Department Work Phone: Start: 09-22-2023 End: 09-22-2023 Patient encounter procedure [facility]-Outpatient Breast Imaging Work Phone: Start: 06-30-2023 End: 06-30-2023 ambulatory [facility] Work Phone: Start: 06-30-2023 End: 06-30-2023 Discharged Recurring [facility]-Physical Therapy Work Phone: Start: 02-08-2023 End: 02-08-[address] Praveen Crum Work Phone: [facility] Work Phone: Start: 02-08-2023 End: 02-08-[address] Praveen Crum Work Phone: [facility] Start: 01-03-2023 End: 01-03-[address] Praveen Crum Work Phone: [facility] Start: 09-05-2022 End: 09-05-2022 Emergency department patient visit [facility]-Emergency Department Start: 08-31-2022 End: 08-31-2022 ambulatory [facility] Work Phone: Start: 08-31-2022 End: 08-31-2022 Patient encounter procedure [facility]-Outpatient Bone Densitometry Start: 08-18-2022 End: 08-18-2022 ambulatory [facility] Work Phone: Start: 08-18-2022 End: 08-18-2022 Patient encounter procedure [facility] Start: 06-15-2022 End: 06-15-2022 Patient encounter procedure [facility] Start: 04-07-2022 End: 04-26-2022 ambulatory PRAVEEN CRUM [facility] Start: 03-17-2022 End: 03-17-2022 Patient encounter procedure [facility] Start: 03-15-2022 End: 04-13-2022 ambulatory CHERY DPM [facility] Start: 03-04-2022 End: 03-04-2022 ambulatory CHERY DPM [facility] Start: 02-18-2022 End: 02-18-2022 Emergency department patient visit DR JACE MATHEWS [facility] Start: 02-04-2022 End: 02-04-2022 [facility] Start: 12-21-2021 End: 12-21-2021 Patient encounter procedure [facility] Start: 12-14-2021 End: 12-14-2021 Patient encounter procedure [facility] Start: 12-09-2021 End: 12-09-2021 Emergency department [facility] Date Procedure Procedure Detail Performing Clinician Start: 06-13-2025 Plain chest X-ray Dr. Esther Crum MD Work Phone: Start: 06-13-[address] Praveen Crum MD Work Phone: Start: 03-15-2025 Plain X-ray abdomen Dr. Praveen Crum MD Work Phone: Start: 01-25-2025 X-ray of cervical spine Dr. Praveen Crum MD Work Phone: Start: 10-30-2024 Dual energy X-ray absorptiometry Dr. Praveen Crum MD Work Phone: Start: 10-30-2024 Screening mammography Prabhakar Crum MD Work Phone: Start: 12-20-2023 Plain chest X-ray Start: 09-22-2023 Screening mammography Start: 09-05-2022 Plain chest X-ray Start: 08-31-2022 Dual energy X-ray absorptiometry Start: 08-31-2022 Screening mammography Start: 12-21-2021 [facility] Start: 12-09-2021 Plain chest X-ray Plan of Treatment Date Care Activity Detail Author Start: 06-13-2025 [facility] Start: 06-13-2025 Electrocardiographic procedure [facility] Start: 06-13-2025 Hospital admission, emergency, from emergency room, medical nature [facility] Start: 06-13-2025 Verification routine [facility] Start: 06-13-2025 Admission procedure [facility] Start: 06-13-2025 Partial thromboplast in time, activated [facility] Start: 06-13-2025 Prothrombin time [facility] Start: 06-13-2025 Referral to service [facility] Start: 06-13-2025 [facility] Start: 01-25-2025 Patient referral [facility] Work Phone: Start: 12-21-2023 Electrocardiographic procedure [facility] Start: 12-21-2023 [facility] Start: 12-20-2023 End: 12-20-2023 [facility] Alternaria alternata IgE Ab [Units/volume] in Serum [facility] Togolese Cockroach I gE Ab [Units/volume] in Serum [facility] Togolese house dust mite IgE Ab [Units/volume] in Serum [facility] Aspergillus fumigatus [facility] Bahia grass IgE Ab [ Units/volume] in Serum [facility] Bermuda grass IgE Ab [Units/volume] in Serum [facility] Box elder RAST [facility] Cat dander IgE Ab [U nits/volume] in Serum [facility] Cladosporium herbaru m IgE Ab [Units/volume] in Serum [facility] Common Ragweed IgE A b [Units/volume] in Serum [facility] Dog epithelium IgE A b [Units/volume] in Serum [facility] Erythrocyte mean cor puscular volume determination [facility] house dust mite IgE Ab [Units/volume] in Serum [facility] Hazelnut Pollen IgE Ab [Units/volume] in Serum [facility] Hematocrit [Volume F raction] of Blood [facility] Hemoglobin [Mass/volume] in Blood [facility] INR in Blood by Coagulation assay [facility] Raphael grass IgE Ab [Units/volume] in Serum [facility] Kentucky blue grass IgE Ab [Units/volume] in Serum [facility] Leukocytes [#/volume] in Blood [facility] Mean corpuscular hem oglobin concentration determination [facility] Mean corpuscular hem oglobin determination [facility] Mountain Juniper IgE Ab [Units/volume] in Serum [facility] Mucor racemosus IgE Ab [Units/volume] in Serum [facility] Mugwort IgE Ab [Unit s/volume] in Serum [facility] Nettle IgE Ab [Units /volume] in Serum [facility] Neutrophil count [facility] Neutrophil percent d ifferential count [facility] Patient Education [facility] Work Phone: Patient referral [facility] Work Phone: Penicillium notatum IgE Ab [Units/volume] in Serum [facility] Plantain (Wolof) RAST [facility] Platelets [#/volume] in Blood [facility] Red blood cell count [facility] Red cell distributio n width determination [facility] Rough Pigweed IgE Ab [Units/volume] in Serum [facility] Sheep Elloree IgE Ab [Units/volume] in Serum [facility] Stemphylium botryosu m IgE Ab [Units/volume] in Serum [facility] Sweet gum [facility] Tree pollen RAST [facility] Troponin T.cardiac [ Mass/volume] in Serum or Plasma by High sensitivity method [facility] Troponin T.cardiac [ Mass/volume] in Serum or Plasma by High sensitivity method [facility] White Elm IgE Ab [Un its/volume] in Serum [facility] White [place] IgE Ab [Units/volume] in Serum [facility] Deeth IgE Ab [Un its/volume] in Serum [facility] Payers Date Payer Category Payer Self-pay [id number] 2016 Medicare [id number] 2016 Unknown [id number] 1950 Unknown [id number] 2.16.84 [id number] 1950 Unknown [id number] 2.16.84 [id number] 1950 Unknown [id number] 2.16.84 [id number] 1950 Unknown [id number] 2.16.84 [id number] 1950 Unknown [id number] 2.16.84 [id number] 1950 Unknown [id number] 2.16.8 [id number] Unknown [id number] 2.16.8 [id number] Unknown [id number] 2.16.8 [id number] Unknown [id number] 2.16.8 [id number] Unknown [id number] 2.16.8 [id number] Social History Date Type Detail Facility Start: 12-09-2021 End: 12-20-2023 Tobacco smoking status NHIS Unknown if ever smoked [facility] Start: 1950 Sex Assigned At Female [facility] Start: 02-25-2025 End: 03-20-2025 Sex Female (finding) [facility] Start: 06-13-2025 [facility] Mental Status Date Assessment Result Facility 06-13-2025 Cognitive function Voice/Name [facility] Work Phone: 12-20-2023 Cognitive function Voice/Name [facility] Work Phone: 09-05-2022 Cognitive function Level Of Cons ciousness Awake;Alert;Appropriate;Follow s Commands [facility] Work Phone: 12-09-2021 Cognitive function Level Of Cons ciousness Awake;Alert;Appropriate [facility] Work Phone: Clinical Notes 06-30-2023 to 06-13-2025 Note Date & Type Note Facility 06-13-2025 History and physi ben note [facility] 06-13-2025 Radiology Diagnostic study note [facility] Imaging Services [address] [place] [address] Chest 1 View (Portable) MR#: [id number] Acct: [id number] Name: RICHIE OSWALD Rep #: [id number] : 1950 F 75 From: Pastora Dacosta MD PCP: Dr. Praveen Crum MD Status: REG ER Study:Chest 1 View (Portable) Date of Exam: 06/13/25 Exam# [id number] Ordering Dr: Margaret Moss MD PROCEDURE: CHEST 1 VIEW (PORTABLE) 06/13/2025 REASON FOR EXAM: CHEST PAIN TECHNIQUE: Frontal view of the chest. COMPARISON: 12/20/2023 FINDINGS: No focal consolidation. No pleural effusion or pneumothorax. Cardiac silhouette is within normal limits. Calcified aortic arch. Calcific tendinopathy of the right shoulder. RAD/Chest 1 View (Portable) IMPRESSION: No focal consolidations. Reading Location: [id number] CC: Dr. Praveen Crum MD; Dr. Efren Moss MD ~ Board Certified Music Therapist: Signed [facility] 03-15-2025 Radiology Diagnostic study note [facility] Imaging Services [address] [place] [address] Abd Inc Decub and/or Erect MR#: [id number] Acct: [id number] Name: RICHIE OSWALD Rep #: [id number] : 1950 F 74 From: Tatiana Al MD PCP: Dr. Praveen Crum MD Status: REG CLI Study:Abd Inc Decub and/or Erect Date of Exam : 03/15/25 Exam# [id number] Ordering Dr: KRYSTEN MARIE EXAM: XR Abdomen, 1 View CLINICAL INDICATION: PAIN, CHANGE IN BOWEL HABITS TECHNIQUE: Frontal supine view of the abdomen/pelvis. COMPARISON: No relevant prior studies available. FINDINGS: GASTROINTESTINAL TRACT: Fecal retention in the colon consistent with constipation. No dilation. BONES/JOINTS: Posterior fusion hardware of the lower lumbar spine. No acute fracture. RAD/Abd Inc Decub and/or Erect IMPRESSION: Fecal retention in the colon consistent with constipation. Reading Location: [id number] CC: KRYSTEN MARIE; Dr. Praveen Crum MD ~ Board Certified Music Therapist: Signed [facility] 01-25-2025 Evaluation note Diagnosis Onset Date Resolution Cervical radiculopathy acute [facility] 2024 1:04pm Degenerative disc disease, cervical acute January 25 1:04pm [facility] Work Phone: [phone]) 975-593908-10-2023 Discharge summary Author Greg Chahal [facility] June 30, 2023 1:07pm Note Date/Time June 30, 2023 1: 07pm [facility] Physical Therapy Health[address] [place] [id number] / REHABILITATION SERVICES DISCHARGE SUMMARY MR#: [id number] Acct: [id number] Name: RICHIE OSWALD Rep #: [id number] : 1950 73 From: Greg Chahal PT, ATC Referring DrMilana: FRANDY Sexton Status: REG RCR Insurance: MEDICARE PART A [facility] Discharge Summary D/C summary: It has been my pleasure to treat RICHIE OSWALD referred by Brandon Sexton PA-C, with the diagnosis of OA L hip and L/S OA for a total of 10 visit(s). Discharge Date: Please see the following information for a summary of their discharge status. Subjective Subjective: I am ready to do this on my own Pain B LE pain: Pain Intensity (Out of 10): 3 LB: Pain Intensity (Out of 10): 3 Overall Improvement % Improvement: 45 Objective Objective/Function: LBP ranges from 3-6/10 LE radiculopathy is occurring 50% less often per patient B LE MMT 4+/5 throughout I with HEP Goals Goal 1:: Decrease B hip pain x 50% to aid with sleep Goal Progress: Progressing Goal 2:: Decrease the frequency and intensity of B LE radiculopathy to aid with standing tolerance Goal Progress: Goal Met Goal 3:: I with HEP of core and LE strengthening Goal Progress: Goal Met Goal 4:: Increase B LE strength to 5/5 throughout to aid with IADL's Goal Progress: Progressing Plan Plan: Discharge to HEP D/C Information d/c sentence: If there are questions or concerns regarding this patient's physical therapy, please feel free to call me at [phone]. Thank you for the referral of thispatient. Sincerely, Greg Chahal, PT, ATC Balance/Gait/Functional tests Balance/Special Test Scores Lower Extremity Functional Score: 61 <Electronically signed by Greg Chahal PT, ATC> 06/30/23 1307 CC: FRANDY Sexton; Dr. Praveen Crum MD ~ [facility] Signed [facility] Work Phone: Evaluation noteNo assessment information available [facility] Work Phone: Evaluation note* Diagnosis Onset Date Resolution Status Oral thrush acute [facility] Work Phone: Evaluation note* Diagnosis Onset Date Resolution Status Admit Date ACS (acute coronary syndrome) acute June 13, 2025 7:16pm Elevated troponin acute June 132024 7:16pm Exertional angina acute June 132024 7:16pm Hypercholesterolemia acute June 13, 2025 7:16pm NSTEMI, initial episode of care acut e June 13, 2025 7:16pm [facility] Work Phone: History and physical note Author Hui Morel [facility] Note Date/Time June 13, 2025 7:50 pm [facility] Medical Records Department [address] [place] [address] H&P Exam - Hospitalist 06/13/251914 MR#: [id number] Acct: [id number] Name: RICHIE OSWALD Rep #:[id number] : 1950 75 From: Hui Morel MD PCP: Dr. Praveen Crum MD Status:ADM IN Location: ICU ICU03-1 HPI - General General Date of Admission: 06/13/25 Date of Service: 06/13/25 Chief Complaint: Chest pain HPI Narrative The patient is a 75 y/o F w/ PMHx: Raynaud disease, HTN, HLD, Hypothyroidism, Fibromyalgia, Chronic idiopathic constipation who presents to the [facility] ED on 06/13/25 with exertional chest pain starting ~ 2 weeks prior primarily with activity prior however on day prior to presentation she had similar symptoms at rest also, noted to be intermittent, pressure like in sensation in the primarilythe anterior neck eventually transitioning into the chest specifically in the substernal region with minimally associated dyspnea per patient specific report and no concurrent no nausea or emesis prompting eventual ED evaluation. She did note she was sweating while she was outside but this was ongoing and secondary to heat. She notes this is different than her chronic GERD symptoms. Work-up in the ED included T98, HR 76, BP 157/89, RR 18, 97% on RA with most recent repeat VS HR 82, BP 137/85, CBC w/ WBC 6.4, Hgb 13.6, Plts 264 without shift, BMP with BUN/Cr 23/0.71, GFR 89, glucose 112, troponin 93, CXR w/ no acute cardiopulmonary findings, EKG with SR with nonspecific ST-T changes new from prior 11/2023 EKG noted prior. ED physician discussed case with Cushion Builder. Inthe ED patient ministered full-strength aspirin therapy, heparin bolus and drip in addition to sublingual nitroglycerin eventually transition to a nitroglycerindrip as well as morphine 4 mg IV x 1. PFSH Medical History (Updated 06/13/25 @ 19:[address] Hui Morel MD) Chronic idiopathic constipation CKD (chronic kidney disease), stage II GERD (gastroesophageal reflux disease) IBS (irritable bowel syndrome) HTN (hypertension) Raynaud disease Fibromyalgia Cataract High cholesterol Hypothyroidism Home Medications ?Medication ?Instructions ?Recorded ?Last Taken ?Type amitriptyline 50 mg tablet 50 mg PO DAILY 11/12/15 Unk nown History atorvastatin 40 mg tablet 40 mg PO QHS 11/12/15 Unknow n History alendronate 70 mg tablet mg PO 01/25/25 Unknown Histo ry levothyroxine 75 mcg tablet mcg PO 01/25/25 Unknown Hi story nifedipine 30 mg tablet,extended mg PO DAILY 01/25/25 Unknown History release pantoprazole 20 mg tablet,delayed 20 mg PO QDAY Unknown History release tizanidine 4 mg tablet mg PO 3XD 01/25/25 Unknown H istory tramadol 50 mg tablet mg PO 01/25/25 Unknown Histo ry venlafaxine 37.5 mg mg PO DAILY 01/25/25 Unknown History capsule,extended release 24 hr Allergy/AdvReac Type Severity Reaction Status Date / Time cyclobenzaprine HCl (From AdvReac Other Verified 06/13/25 17:31 Flexeril) promethazine (From Phenergan) AdvReac Other Verified 06/13/25 17:31 [id number] Reductase AdvReac Pain in Verified 06/13/25 17:31 Inhibitor joints Family History (Updated 06/13/25 @ 19:[address] Hui Morel MD) Father Heart disease CAD (coronary artery disease) Hypertension Myocardial infarction HLD (hyperlipidemia) Mother Hypertension Surgical History Previous back surgery H/O wrist surgery History of ankle surgery H/O shoulder surgery Social History (Updated 06/13/25 @ 19:[address] Hui Morel MD) household members: spouse Smoking Status: Never smoker alcohol intake: current alcohol intake frequency: holidays/special occasions only substance use type: does not use ROS ROS Narrative Admission Review of Systems: CONSTITUTIONAL: No weight loss, fever, chills, + weakness or fatigue. HEENT: Eyes: No visual loss, blurred vision, double vision or yellow sclerae. Ears, Nose, Throat: No hearing loss, sneezing, congestion, runny nose or sore throat. SKIN: No rash or itching, lesions, wounds. CARDIOVASCULAR: + Chest pain. No palpitations, edema, orthopnea, syncopal events. RESPIRATORY: + Minimal exertional dyspnea. No cough or sputum, wheezing, hemoptysis. GASTROINTESTINAL: + Chronic constipation. No anorexia, nausea, vomiting or diarrhea, abdominal pain, melena, BRBPR. GENITOURINARY: No dysuria, frequency, urgency or retention. NEUROLOGICAL: No headache, dizziness, syncope, paralysis, ataxia, numbness or tingling in the extremities, focal weakness, change in bowel or bladder control,seizure. MUSCULOSKELETAL: + muscle, back pain, joint pain or stiffness. HEMATOLOGIC: No anemia, bleeding or bruising. LYMPHATICS: No enlarged nodes. No history of splenectomy. PSYCHIATRIC: + History of Anxiety and depression ENDOCRINOLOGIC: No cold or heat intolerance. No polyuria or polydipsia. ALLERGIES: No history of asthma, hives, eczema or rhinitis. Vital Signs Vital Signs Vital Signs: 06/13/25 17:30 06/13/25 17:43 06/13/25 17:43 Temperature 98 F Temperature Source Oral Pulse Rate 76 Respiratory Rate 18 Respiratory Effort Normal Blood Pressure 157/89 H Blood Pressure Mean 111 Pulse Ox 97 Oxygen Delivery Method Room Air 06/13/25 17:55 06/13/25 18:05 06/13/25 18:13 Temperature Temperature Source Pulse Rate 77 72 82 Respiratory Rate Respiratory Effort Blood Pressure 160/85 H 131/85 H 137/85 H Blood Pressure Mean Pulse Ox Oxygen Delivery Method Weight Weight: 133 lb 9 oz Body Mass Index (BMI) 23.6 Physical Exam Narrative Physical Examination: General: Awake, alert, oriented x 3 and cooperative, seated upright in the ED bed, mildly fatigued, notes chest discomfort is significantly improved, 3-4 out of 10 in severity. Skin: Normal color, normal turgor, no icterus, no cyanosis. HEENT: AT/NC, EOMI, PERRLA, MMM, no carotid bruits or JVD noted. Lungs: CTA bilaterally, moderate effort, mild decrease BL bases, no rales, ronchi or wheezing. Heart: Regular rate and rhythm; no gallop, rub audible. Abdomen: Soft, NTTP, mildly hyperactive BS, no marked distention, no appreciatedHSM. Extremities: No cyanosis, clubbing, or edema. Neurological: Patient awake, alert, oriented as noted, cognitive function intact; pupils equally reactive to light and accommodation, cranial nerves grossly normal, moving all 4 extremities, no focal deficits, strength mildly to moderately globally creased. Psychiatric: Affect appears mildly fatigued otherwise normal, no acute evidence of depressive or anxiety feelings but does have underlying history. Results Lab / Micro Data 06/13/25 19:30 06/13/25 17:43 Labs: Laboratory Results - last 24 hr 06/13/25 17:43: WBC 6.4, RBC 4.32, Hgb 13.6, Hct 41.6, MCV 96.3, MCH 31.5, MCHC 32.7, RDW Std Deviation 48.3 H, RDW Coeff of Sushant 13.5, Plt Count 264, MPV 10.6, Immature Gran % (Auto) 0.300, Neut % (Auto) 53.7, Lymph % (Auto) 36.0, Ward % (Auto) 8.9, Eos % (Auto) 0.6, Baso % (Auto) 0.5, Absolute Neuts (auto) 3.4, Absolute Lymphs (auto) 2.31, Nucleated RBC % 0, Sodium 136, Potassium 4.4, Chloride 99, Carbon Dioxide 26.9, Anion Gap 11, BUN 23 H, Creatinine 0.71, EstimCreat Clear Calc 51.04, Est GFR (MDRD) Non-Af 89, BUN/Creatinine Ratio 32.4 H, Glucose 112 H, Calcium 9.4, Troponin T High Sens 93 H* Imaging Radiology Impression Chest X-Ray 06/13/25 17:48 IMPRESSION: No focal consolidations. Reading Location: [facility] Assessment & Plan Assessment/Plan (1) NSTEMI, initial episode of care: PLAN: Plan The patient is a 75 y/o F w/ PMHx: Raynaud disease, HTN, HLD, Hypothyroidism, Fibromyalgia, Chronic idiopathic constipation who presents to the [facility] ED on 06/13/25 with exertional chest pain starting ~ 2 weeks prior primarily with activity prior however on day prior to presentation she had similar symptoms at rest also, noted to be intermittent, pressure like in sensation in the primarilythe anterior neck eventually transitioning into the chest specifically in the substernal region with minimally associated dyspnea per patient specific report and no concurrent no nausea or emesis prompting eventual ED evaluation. #1. Chest Pain w/ Acute NSTEMI: EKG in ED w/ sinus rhythm with nonspecific ST-Tchanges new from previous EKG, CXR w/ no acute cardiopulmonary findings. Trop elevated, initial 93. Will admit to the ICU given usage of nitroglycerin drip ongoing, will continue cardiology consultation, maintain on a monitored bed, continue serial cardiac enzymes and EKGs. Obtain magnesium level. Will continueheparin drip. Continue medical management w/ daily baby asa, add low-dose BB with medicine discretion changes per cardiology service, continue home statin w/AM FLP. ECHO requested. Cardiology consulted, plan for cardiac catheterization. Maintain NPO after midnight. ASA, NG, morphine. #2. Hypertension: Adding low-dose beta-karlo as noted with cardiology discretion for changes, holding nifedipine w/ NG drip usage as noted, PRN hydralazine. #3. Hyperlipidemia: Unable to tolerate statins per discussion with patient, will obtain AM FLP. May need consider Zetia as an option depending on results and cardiology preference. #4. Hypothyroidism: Will continue patient levothyroxine regimen. #5. Raynaud's disease: Will continue patient nifedipine regimen. #6. Anxiety and depression: Will continue patient venlafaxine regimen. #7. GERD: Will continue patient on PPI. #8. Chronic Kidney Disease Stage II per GFR trend: Admission BUN/Cr 23/0.71, GFR 89, baseline renal function primarily 0.7-0.8, repeat BMP in AM. #9. Chronic idiopathic constipation: Patient notes she is on a newer medicationbut unclear of the name and states it is not working, discussed possible optionsand at this point we will maintain on twice daily MiraLAX and senna docusate combination. #10. DVT prophylaxis: Heparin drip. #11. CODE status: Patient GAGAN is her as a primary and her son is a and living will is currently in place. Discussed CODE status at length includingdifference between FULL code, DNR-CCA and DNR-CC status. Following discussions about the differences in these status, requested Full Code status. Advanced CarePlanning Face to Face Time: 16 minutes. Charges/Coding Visit Charges Inpatient E&M: 77393 Init Hosp L3 Procedures Hospitalists Procedures: 02528 Advncd Care Plan 30 Min 06/13/251949 <Electronically signed by Hui Morel MD> Cosigner Signature (if applicable): CC: Dr. Hui Morel MD; Dr. Praveen Crum MD~ Signed [facility] Work Phone[facility] Work [facility]: Hospital Discharge instructions Additional Instructions Please ensure that you drink plenty of fluids. Return for any worsening symptoms.[facility] Work Phone: Reason for referral (narrative)No reason for referral information availableWTogus VA Medical Center Work Phone: Chief Complaint and Reason for Visit Chief Complaint chest pain E ORDER Chief Complaint SCREENING/OSTEO Chief Complaint SCREENING/OSTEO syncope Chief Complaint CONCERN FOR THRUSH/R EOCCURANCE Reason for Visit Oral thrush Chief Complaint OA LEFT HIP RX HERE Chief Complaint SCREENING NEAR SYNCOPE Chief Complaint NEAR SYNCOPE Chief Complaint Admit Date SCREENING OSTEO October 30, 2024 12:31pm CERVICAL SPINE January 25, 2025 1:04 pm room 3 January 25, 2025 1:22 pm Reason for Visit Admit Date Cervical radiculopathy January 25, 2025 1 :04pm Degenerative disc disease, cervical Arian 2024 1:04pm Chief Complaint Admit Date CERVICAL SPINE January 25, 2025 1:04 pm room 3 January 25, 2025 1:22 pm ABDOMINAL PAIN/ STOOL SAMPLE March 15, 2025 2:56pm Chief Complaint Admit Date ABDOMINAL PAIN/ STOOL SAMPLE March 15, 2025 2:56pm NSTEMI June 13, 2025 7:16 pm Reason for Visit Admit Date ACS (acute coronary syndrome) June 13, 2025 7:16pm Elevated troponin June 13, 2025 7:16 pm Exertional angina June 13, 2025 7:16 pm Hypercholesterolemia June 13, 2025 7:1 6pm NSTEMI, initial episode of care May 7:16pm Advance Directives Advance Directive Response Recorded Date/ Time Living Will No December 09 2:26pm Power of Toaster Element Repairer No December 09, 2021 2:26pm Advance Directive Response Recorded Date/ Time Living Will No September 05 7:18am Power of Toaster Element Repairer No September 05, 2022 7:18am Advance Directive Response Recorded Date/ Time Name of Medical Power of Toaster Element Repairer SEAN OSWALD December 20, 2023 2:43pm Living Will Yes December 20 2:43pm Power of Toaster Element Repairer Yes December 20, 2023 2:43pm Advance Directive Response Recorded Date/ Time Living Will Yes December 20 3:43pm Power of Toaster Element Repairer Yes December 20, 2023 3:43pm Name of Medical Power of Toaster Element Repairer SEAN OSWALD December 20, 2023 3:43pm Advance Directive Response Recorded Date/ Time Living Will Yes December 20 3:43pm Do you have a Healthcare Power of Toaster Element Repairer? Yes December 20, 2023 3:43pm Advance Directive Response Recorded Date/ Time Do you have a Healthcare Power of Toaster Element Repairer? No June 13, 2025 5:43pm Summary Purpose Family History Relationship Condition Age at Onset Recorded Date/T jaylin father Cardiac disease Unknown Coronary artery disease Unknown Hypertension Unknown Myocardial infarction Unknown Hyperlipidemia Unknown mother Hypertension Unknown Additional Source Comments Goals (unrecognized section and content) Goals may be documented in a n alternate sectionGoals may be documented in an alternate sectionGoals may be documented in an alternate sectionGoals may be documented in an alternate sectionGoals may be documented in an alternate sectionGoals may be documented in an alternate sectionGoals may be documented in an alternate sectionGoals may be documented in an alternate sectionGoals may be documented in an alternate sectionGoals may be documented in an alternate sectionGoals may be documented in an alternate sectionGoals may be documented in an alternate section INFORMATION SOURCE (unrecogn ized section and content) DATE CREATED AUTHOR 04/26/2022 [facility] DATE CREATED AUTHOR AUTHOR'S ORGANIZ ATION 03/07/2025 [facility] DATE CREATED AUTHOR AUTHOR'S ORGANIZ ATION 03/21/2025 [facility] Care Teams (unrecognized sec tion and content) Team Status: Active Member Role Status Dates Dr. Praveen Crum MD Family Provider Active Dr. Praveen Crum MD Primary Care Provider Active Team Status: Inactive Member Role Status Dates Dr. Praveen Crum MD Primary Care Provider, Referring P rovider Active Zaki OWEN PA Attending Provider Active Team Status: Inactive Member Role Status Dates Dr. Praveen Crum MD Primary Care Provide r, Attending Provider, Referring Provider Active Team Status: Inactive Member Role Status Dates Dr. Praveen Crum MD Primary Care Provider Active Brandon Sexton PA, PA-C Attending Provider, Referring Pr ovider Active Team Status: Inactive Member Role Status Dates Dr. Praveen Crum MD Primary Care Provider Active Laly Diaz RECORDS CUSTODIAN, RECORDS CUSTODIAN-C Attending Provider, Referring Pro vider Active Team Status: Inactive Member Role Status Dates Dr. Praveen Crum MD Primary Care Provider Active Dr. Praveen Fuentes DO Emergency Provider Active Team Status: Inactive Member Role Status Dates Dr. Praveen Crum MD Primary Care Provider Active Dr. Praveen Fuentes DO Attending Provider, Emergency P rovider Active Team Status: Inactive Member Role Status Dates Dr. Praveen Crum MD Primary Care Provider Active Start: October 30, 2024 End: October 30, 2024 DEMARCUS LANGFORD Attending Provider Active Start: D ec2023 End: October 30, 2024 DEMARCUS LANGFORD Referring Provider Active Start: D ec2023 End: October 30, 2024 Team Status: Inactive Member Role Status Dates Dr. Praveen Crum MD Primary Care Provider Active Start: January 25, 2025 End: January 25, 2025 Dr. Praveen Crum MD Referring Provider Active St art: January 25, 2025 End: January 25, 2025 BRAYDEN Wray Attending Provider Active Star t: January 25, 2025 End: January 25, 2025 Team Status: Inactive Member Role Status Dates Dr. Praveen Crum MD Primary Care Provider Active Start: January 25, 2025 End: January 25, 2025 Dr. Edil Hong MD Attending Provider Active S tart: January 25, 2025 End: January 25, 2025 Team Status: Inactive Member Role Status Dates Dr. Praveen Crum MD Primary Care Provider Active Start: March 15, 2025 End: March 15, 2025 FRANK BASHIR Attending Provider Active Sta rt: March 15, 2025 End: March 15, 2025 FRANK BASHIR Referring Provider Active Sta rt: March 15, 2025 End: March 15, 2025 Team Status: Active Member Role/Relationship Status Dates Dr. Praveen Crum MD Primary Care Provider Active Team Status: Inactive Member Role/Relationship Status Dates Dr. Praveen Crum MD Primary Care Provider Active Start: March 15, 2025 End: March 15, 2025 FRANK BASHIR Attending Provider Active Sta rt: March 15, 2025 End: March 15, 2025 FRANK BASHIR Referring Provider Active Sta rt: March 15, 2025 End: March 15, 2025 Team Status: Active Member Role/Relationship Status Dates Dr. Praveen Crum MD Primary Care Provider Active Start: June 13, 2025 Dr. Efren Moss MD Emergency Provider Active Sta rt: June 13, 2025 Dr. Hui Morel MD Admit Provider Active St art: June 13, 2025 Dr. Hui Morel MD Attending Provider Active Start: June 13, 2025 Dr. Hui Morel MD Other Provider Active St art: June 13, 2025 FOR RECORDS PERTAINING TO PATIENTS WHO ARE [...] BE BASED ON THE PRIMARY CLINICAL RECORDS. [facility] [employer] [facility]. provides no warranty or guarantee of the accuracy or completeness of information in this document.
[2025-06-14] VITALS (14 sets, daily range): BP systolic 112–152; BP diastolic 68–103; PULSE 56–75; RESP 13–20; TEMP 36.7; O2SAT 94–100; BMI 24.5
[2025-06-14 00:06] LABS: Troponin T High Sens 2 HR 88 ng/L (<=14)
[2025-06-14 01:19] LABS: Hematocrit 36.1 % (37-47); Hemoglobin 12.1 g/dL (12.0-15.0); Immature Granulocytes Count 0.020 X10^3/uL (0.0-0.0); Mean Corp Hgb Conc 33.5 g/dL (32-36); Mean Corpuscular Volume 95.0 fL (81-99); Mean Platelet Vol. 10.5 fl (6.2-12.0); NRBC Flagged by Analyzer 0 % (0-5); Platelet Count 220 K/mm3 (150-450); RBC Distribution Width CV 13.3 % (11.6-14.6); RBC Distribution Width SD 46.9 fl (35.1-43.9); Red Blood Count 3.80 M/mm3 (4.2-5.4); White Blood Count 5.4 K/mm3 (4.4-11.0)
[2025-06-14 01:38] LABS: AST(SGOT) 28 U/L (<=31); Alanine Aminotransfer ALT/SGPT 6 U/L (<=34); Albumin, Serum 3.7 g/dL (3.4-4.8); Alkaline Phosphatase 46 U/L (35-104); Anion Gap 11 (5-15); BUN 19 mg/dL (4-19); BUN/Creat Ratio 34.4 RATIO (10-20); Calcium,Total 8.4 mg/dL (7.6-11.0); Carbon Dioxide 23.9 mmol/L (21.0-32.0); Chloride 103 mmol/L (98-108); Cholesterol 280 mg/dL (<=200); Estimated Creatinine Clearance 51.04 ml/min (50-250); Globulin 2.2 g/dL (2.2-4.2); Glucose 96 mg/dL (70-99); Low Density Lipoprotein Calc. 166 mg/dL; Potassium 3.9 mmol/L (3.3-5.1); Triglycerides 89 mg/dL; Very Low Density Lipoprotein 18 mg/dL (5-40); cholesterol:hdl ratio screen 2.92
[2025-06-14 01:39] LABS: Troponin T High Sens 4 HR 114 ng/L (<=14)
[2025-06-14 01:45] LABS: Partial Thromboplast Time 111.8 Seconds (24.1-36.2)
[2025-06-14] MEDS: 0.9% Saline Lock 10 ML Syringe IV ×2 (07:41→13:47)
--- NOTE | 2025-06-14 07:41 | PCM.CONS.C ---
Assessment & Plan Assessment/Plan (1) NSTEMI, initial episode of care: PLAN: Patient presents with chest discomfort and a non-ST elevation myocardial infarction and typical pattern. At this point patient has been started on aspirin heparin intravenous nitroglycerin and have discussed with her with the risk benefits alternatives the plan is to undergo a left heart catheterization. She agrees to the above. (2) Hypercholesterolemia: PLAN: Depending on the results of the heart catheterization further recommendations will be made. PLAN: Plan Addendum: Cardiac catheterization done demonstrated triple-vessel disease with a subtotally occluded right coronary artery, along LAD 70% stenosis, and a high-grade obtuse marginal vessel. Ejection fraction was borderline at 50% with anterolateral hypokinesis. Would recommend transfer to a tertiary care facility for coronary bypass surgery HPI Consult Data Date of Consult: 06/14/25 HPI Narrative HPI Narrative: RICHIE OSWALD, is a 75 F who presents to the emergency room with exertional chest discomfort. She does have a history of hyperlipidemia and says that she takes daily walks and over the last few weeks she has noticed that she develops chest discomfort which radiates to her jaw when she exercises. It goes away when she rest. She has had no dizziness or diaphoresis no near-syncope or syncope she did present to the emergency room and was noted to be in sinus rhythm with a mildly elevated blood pressure but cardiac enzymes were noted to be abnormal and she was admitted to the intensive care unit for cardiology consultation. She is currently pain-free. [facility] Medical History Chronic idiopathic constipation CKD (chronic kidney disease), stage II GERD (gastroesophageal reflux disease) IBS (irritable bowel syndrome) HTN (hypertension) Raynaud disease Fibromyalgia Cataract High cholesterol Hypothyroidism Home Medications ?Medication ?Instructions ?Recorded ?Last Taken ?Type amitriptyline 50 mg tablet 50 mg PO DAILY 11/12/15 06/12/25 History alendronate 70 mg tablet 70 mg PO .weekly 01/25/25 06/12/25 History levothyroxine 75 mcg tablet 75 mcg PO DAILY 01/25/25 06/13/25 History nifedipine 30 mg tablet,extended 30 mg PO DAILY 01/25/25 06/13/25 History release pantoprazole 20 mg tablet,delayed 20 mg PO QDAY 01/25/25 06/13/25 History release tizanidine 4 mg tablet 4 mg PO QHS 01/25/25 06/12/25 History tramadol 50 mg tablet 50 mg PO PRN 01/25/25 Unknown History lubiprostone 24 mcg capsule 24 mcg PO BID 06/13/25 06/13/25 History venlafaxine 37.5 mg 37.5 mg PO DAILY depression 06/13/25 Unknown History capsule,extended release 24 hr Allergy/AdvReac Type Severity Reaction Status Date / Time cyclobenzaprine HCl (From AdvReac Other Verified 06/13/25 17:31 Flexeril) promethazine (From Phenergan) AdvReac Other Verified 06/13/25 17:31 [id number] Reductase AdvReac Pain in Verified 06/13/25 17:31 Inhibitor joints Family History Father Heart disease CAD (coronary artery disease) Hypertension Myocardial infarction HLD (hyperlipidemia) Mother Hypertension Surgical History Previous back surgery H/O wrist surgery History of ankle surgery H/O shoulder surgery Social History household members: spouse Smoking Status: Never smoker alcohol intake: current alcohol intake frequency: holidays/special occasions only substance use type: does not use ROS Constitutional Constitutional: Denies fever(s) or weight loss Eyes Eyes: Reports systems reviewed and no addt'l complaints, except as documented ENT HEENT: Reports systems reviewed and no addt'l complaints, except as documented Cardiovascular Cardiovascular: Reports chest pain with activity and dyspnea on exertion; Denies chest pain at rest, dyspnea at rest, edema, palpitations or paroxysmal nocturnal dyspnea Respiratory/Chest Respiratory/Chest: Denies dyspnea on exertion, productive cough, shortness of breath at rest or shortness of breath with exertion Gastrointestinal Gastrointestinal: Denies change in bowel habits, nausea, vomiting or weight changes Genitourinary Genitourinary: Denies difficulty urinating Musculoskeletal Musculoskeletal: Denies joint stiffness or muscle weakness Integumentary Integumentary: Denies lesions Neurologic Neurologic: Denies dizziness or syncope Psychiatric Psychiatric: Denies anxiety Endocrine Endocrinology: Denies excessive sweating or fatigue Hematologic/Lymphatic Hematologic/Lymphatic: Denies anemia Allergic/Immunologic Allergic/Immunologic: Denies seasonal rhinorrhea Physical Exam Const alert, oriented x3 and no apparent distress General Appearance: cooperative HEENT hearing grossly normal bilaterally Head and Scalp: atraumatic Eyes EOMs intact bilaterally Neck General: normal visual inspection Chest inspection of chest normal and palpation of chest normal Resp normal respiratory effort Auscultation: clear to auscultation bilaterally Cardio regular rate, regular rhythm, S1 normal heart sound and S2 normal heart sound Jugular Venous Distention: JVD GI normal to inspection, nondistended, normoactive bowel sounds Extremity normal capillary refill and no pedal edema Peripheral Pulses: Yes pulses 2+ throughout and femoral pulses present Skin no rashes or lesions noted Neuro oriented x3 and CN's II-XII intact bilaterally Psych Appearance: grossly normal and appropriate Risk Stratification Risk Stratification Applicable: Yes Age >/= 65: Yes >/= 3 CAD Risk Factors (HTN, HLD, DM, family hx of CAD, or current smoker): Yes Aspirin Use in the Past 7 Days: No Severe Angina (>/= episodes in 24 hours): No EKG ST Changes >/= 0.5mm: No Positive Cardiac Marker: Yes STEFFEN Risk Stratification Score: 3 STEFFEN % Risk: 13% Risk Objective Data Vital Signs: Vital Signs Temp Pulse Resp BP Pulse Ox O2 Del Method O2 Flow Rate 97.6 F L 56 L 16 112/68 98 Nasal Cannula 2 06/13/25 20:45 06/14/25 06:09 06/14/25 06:09 06/14/25 06:09 06/14/25 06:09 06/14/25 06:09 06/14/25 06:09 Oxygen Flow Rate (L/min) 2 Oxygen Delivery Method Nasal Cannula Weight: 138 lb 14.259 oz Body Mass Index (BMI) 24.5 Intake & Output: Intake and Output for Last 24 Hours 06/12/25 06/13/25 06/14/25 23:59 23:59 23:59 Intake Total 1.65 / 1.65 112.77 / 112.77 Output Total 400 / 400 600 / 600 Balance -398.35 / -398.35 -487.23 / -487.23 Lab / Micro Data 06/14/25 01:06 06/14/25 01:06 Labs: Laboratory Results - last 24 hr 06/13/25 17:43: WBC 6.4, RBC 4.32, Hgb 13.6, Hct 41.6, MCV 96.3, MCH 31.5, MCHC 32.7, RDW Std Deviation 48.3 H, RDW Coeff of Sushant 13.5, Plt Count 264, MPV 10.6, Immature Gran % (Auto) 0.300, Neut % (Auto) 53.7, Lymph % (Auto) 36.0, Levy % (Auto) 8.9, Eos % (Auto) 0.6, Baso % (Auto) 0.5, Absolute Neuts (auto) 3.4, Absolute Lymphs (auto) 2.31, Nucleated RBC % 0, Sodium 136, Potassium 4.4, Chloride 99, Carbon Dioxide 26.9, Anion Gap 11, BUN 23 H, Creatinine 0.71, Estim Creat Clear Calc 51.04, Est GFR (MDRD) Non-Af 89, BUN/Creatinine Ratio 32.4 H, Glucose 112 H, Calcium 9.4, Magnesium 2.0, Troponin T High Sens 93 H* 06/13/25 19:10: PT 15.2 H, INR 1.2, APTT 27.1 06/13/25 19:30: WBC 5.7, RBC 4.05 L, Hgb 12.7, Hct 39.1, MCV 96.5, MCH 31.4, MCHC 32.5, RDW Std Deviation 48.6 H, RDW Coeff of Sushant 13.5, Plt Count 241, MPV 10.4, Immature Gran % (Auto) 0.200, Neut % (Auto) 55.8, Lymph % (Auto) 34.0, Levy % (Auto) 9.0, Eos % (Auto) 0.5, Baso % (Auto) 0.5, Absolute Neuts (auto) 3.2, Absolute Lymphs (auto) 1.92, Nucleated RBC % 0 06/13/25 19:57: Troponin T Hi Sens 2 Hr 88 H* 06/14/25 01:06: WBC 5.4, RBC 3.80 L, Hgb 12.1, Hct 36.1 L, MCV 95.0, MCH 31.8, MCHC 33.5, RDW Std Deviation 46.9 H, RDW Coeff of Sushant 13.3, Plt Count 220, MPV 10.5, Immature Gran % (Auto) 0.400, Neut % (Auto) 44.3 L, Lymph % (Auto) 45.0 H, Levy % (Auto) 8.7, Eos % (Auto) 0.9, Baso % (Auto) 0.7, Absolute Neuts (auto) 2.4, Absolute Lymphs (auto) 2.43, Nucleated RBC % 0, APTT 111.8 H*, Sodium 137, Potassium 3.9, Chloride 103, Carbon Dioxide 23.9, Anion Gap 11, BUN 19, Creatinine 0.56 L, Estim Creat Clear Calc 51.04, Est GFR (MDRD) Non-Af 96, BUN/Creatinine Ratio 34.4 H, Glucose 96, Calcium 8.4, Total Bilirubin 0.24, AST 28, ALT 6, Alkaline Phosphatase 46, Troponin T Hi Sens 4Hr 114 H*, Total Protein 5.9, Albumin 3.7, Globulin 2.2, Albumin/Globulin Ratio 1.7, Triglycerides 89, Cholesterol 280 H, LDL Cholesterol, Calc 166, VLDL Cholesterol 18, HDL Cholesterol 96, Cholesterol/HDL Ratio 2.92 Cardiology Labs/Tests 06/13/25 17:43: WBC 6.4, RBC 4.32, Hgb 13.6, Hct 41.6, MCV 96.3, MCH 31.5, MCHC 32.7, Plt Count 264, MPV 10.6, Immature Gran % (Auto) 0.300, Neut % (Auto) 53.7, Lymph % (Auto) 36.0, Levy % (Auto) 8.9, Eos % (Auto) 0.6, Baso % (Auto) 0.5, Absolute Neuts (auto) 3.4, Nucleated RBC % 0, Sodium 136, Potassium 4.4, Chloride 99, Carbon Dioxide 26.9, Anion Gap 11, BUN 23 H, Creatinine 0.71, Est GFR (MDRD) Non-Af 89, BUN/Creatinine Ratio 32.4 H, Glucose 112 H, Calcium 9.4, Magnesium 2.0 06/13/25 19:10: PT 15.2 H, INR 1.2, APTT 27.1 06/13/25 19:30: WBC 5.7, RBC 4.05 L, Hgb 12.7, Hct 39.1, MCV 96.5, MCH 31.4, MCHC 32.5, Plt Count 241, MPV 10.4, Immature Gran % (Auto) 0.200, Neut % (Auto) 55.8, Lymph % (Auto) 34.0, Levy % (Auto) 9.0, Eos % (Auto) 0.5, Baso % (Auto) 0.5, Absolute Neuts (auto) 3.2, Nucleated RBC % 0 06/14/25 01:06: WBC 5.4, RBC 3.80 L, Hgb 12.1, Hct 36.1 L, MCV 95.0, MCH 31.8, MCHC 33.5, Plt Count 220, MPV 10.5, Immature Gran % (Auto) 0.400, Neut % (Auto) 44.3 L, Lymph % (Auto) 45.0 H, Levy % (Auto) 8.7, Eos % (Auto) 0.9, Baso % (Auto) 0.7, Absolute Neuts (auto) 2.4, Nucleated RBC % 0, APTT 111.8 H*, Sodium 137, Potassium 3.9, Chloride 103, Carbon Dioxide 23.9, Anion Gap 11, BUN 19, Creatinine 0.56 L, Est GFR (MDRD) Non-Af 96, BUN/Creatinine Ratio 34.4 H, Glucose 96, Calcium 8.4, Total Bilirubin 0.24, Triglycerides 89, Cholesterol 280 H, VLDL Cholesterol 18, HDL Cholesterol 96, Cholesterol/HDL Ratio 2.92 Rhythm: EKG: ECHO: Stress Test: Cardiac Cath: PCI: CT Surgery: Holter monitor: EPS: PPM: CXR: Chest CT Scan: Radiography Diagnostic Testing: Radiology Impression Chest X-Ray 06/13/25 17:48 IMPRESSION: No focal consolidations. Reading Location: [facility]
[2025-06-14] MEDS: 0.9% Normal Saline (1000mL) 1,000 ML 15 ML IV (08:27)
--- NOTE | 2025-06-14 12:50 | NURSING ---
patient returned from label [facility] at 1230 with r radial TR band intact with 17 c air. radial and ulnar pulse intact, slight discoloation of hand. patient alert and oriented x 3
--- NOTE | 2025-06-14 13:19 | CASEMGMT ---
Insurance review for hospitals In-network with [facility] insurance if transfer is recommended is as follows: [facility], [facility], [place], [facility], [facility], [facility], , [place], [facility], [facility], and [place].
[2025-06-14] MEDS: HEPARIN/D5w 25,000 UNITS 25,000 UNITS/250 ML IV.SOLN. 9.5 UNITS CONT INF (14:55)
--- NOTE | 2025-06-14 15:18 | NURSING ---
JOY Mccloud gave report to OJY Ugalde at [place] [id number]. [facility] here at this time for transport. All 17mls removed from TR band without incident. TR band and specialized syringe sent with pt for transport.
--- NOTE | 2025-06-14 15:35 | DS.PCM_ITS ---
Providers Date of Admission: 06/13/25 Date of Discharge: 06/14/25 Primary Care Physician: Dr. Narinder Crum MD Consultations 06/13/25 20:35 Consult: Cardiology Routine Consulting Provider: Cade Humphries Reason for Consult: Chest Pain, NSTEMI EMERGENT Consult: No MD Notified: Yes Date Notified: 06/13/25 Time Notified: 19:21 Method of Notification: ED Physician Initiated Reason For Visit: NSTEMI Diagnosis Discharge Diagnosis (1) NSTEMI, initial episode of care: Status: Acute Code(s): I21.4 - Non-ST elevation (NSTEMI) myocardial infarction (2) Hypercholesterolemia: Status: Acute Code(s): E78.00 - Pure hypercholesterolemia, unspecified Plan 1. Non-STEMI #2 triple-vessel coronary artery disease #3 hyperlipidemia #4 ischemic cardiomyopathy with intermittent ejection fraction #5 hypothyroidism Medications at Discharge Home Medications amitriptyline 50 mg tablet 50 mg PO DAILY 11/12/15 alendronate 70 mg tablet 70 mg PO .weekly 01/25/25 levothyroxine 75 mcg tablet 75 mcg PO DAILY 01/25/25 nifedipine 30 mg tablet,extended release 30 mg PO DAILY 01/25/25 pantoprazole 20 mg tablet,delayed release 20 mg PO QDAY 01/25/25 tizanidine 4 mg tablet 4 mg PO QHS 01/25/25 tramadol 50 mg tablet 50 mg PO PRN 01/25/25 lubiprostone 24 mcg capsule 24 mcg PO BID 06/13/25 venlafaxine 37.5 mg capsule,extended release 24 hr 37.5 mg PO DAILY depression 06/13/25 Hospital Course Operations None Procedures 2-D Echocardiogram and Cardiac catheterization Summary of Care Provided Minutes Spent on Discharge: 31 Hospital Course: This 75-year-old white female was seen in the emergency room at [facility] with complaints of chest discomfort that she described as pressure, this appeared to be initiated by activity. Workup in the emergency room included lab which revealed 93 troponin, patient's chest x-ray was unremarkable, patient's EKG did not show any ischemic changes. Patient was admitted to [facility] ICU, placed on a heparin drip, she was seen in consultation by cardiology and underwent a cardiac catheterization on 06/14/2025, this cardiac catheterization showed triple-vessel disease and it was recommended the patient be transferred out to a tertiary facility for consideration of cardiac bypass. Echocardiogram showed an intermediate ejection fraction of 45%. On 06/14/2025, patient was seen and examined: On examination she appeared in good health and spirits, she does not appear to be in any distress. Vital signs as documented. Skin warm and dry and without overt rashes. Neck without JVD, thyroid appears normal, trachea is midline, neck is supple. Lungs clear, normal air movement was noted. Heart exam notable for regular rhythm, normal sounds and absence of murmurs, rubs or gallops. Abdomen unremarkable and without evidence of organomegaly, masses, or abdominal aortic enlargement, bowel sounds are present in all 4 quadrants, no abdominal tenderness was noted. Extremities nonedematous, no cyanosis was noted, no clubbing was noted. Neuro: Cranial nerves II through XII are grossly intact, no focal motor deficits were noted, sensation to light touch and pinprick is intact, motor exam 5/5 throughout. Psych: Patient is alert and oriented x3, she does not appear anxious or depressed, she does not appear agitated. Patient was transferred to a tertiary hospital for further care on 06/14/2025 (patient was transferred to [facility] in [facility]) Weight / BMI Weight Weight: 63 kg Body Mass Index (BMI) 24.5 ABG / Lab / Microbiology Data 06/14/25 01:06 06/14/25 01:06 Laboratory: Laboratory Results - last 24 hr 06/13/25 17:43: WBC 6.4, RBC 4.32, Hgb 13.6, Hct 41.6, MCV 96.3, MCH 31.5, MCHC 32.7, RDW Std Deviation 48.3 H, RDW Coeff of Sushant 13.5, Plt Count 264, MPV 10.6, Immature Gran % (Auto) 0.300, Neut % (Auto) 53.7, Lymph % (Auto) 36.0, [place] % (Auto) 8.9, Eos % (Auto) 0.6, Baso % (Auto) 0.5, Absolute Neuts (auto) 3.4, Absolute Lymphs (auto) 2.31, Nucleated RBC % 0, Sodium 136, Potassium 4.4, Chloride 99, Carbon Dioxide 26.9, Anion Gap 11, BUN 23 H, Creatinine 0.71, Estim Creat Clear Calc 51.04, Est GFR (MDRD) Non-Af 89, BUN/Creatinine Ratio 32.4 H, G lucose 112 H, Calcium 9.4, Magnesium 2.0, Troponin T High Sens 93 H* 06/13/25 19:10: PT 15.2 H, INR 1.2, APTT 27.1 06/13/25 19:30: WBC 5.7, RBC 4.05 L, Hgb 12.7, Hct 39.1, MCV 96.5, MCH 31.4, MCHC 32.5, RDW Std Deviation 48.6 H, RDW Coeff of Sushant 13.5, Plt Count 241, MPV 10.4, Immature Gran % (Auto) 0.200, Neut % (Auto) 55.8, Lymph % (Auto) 34.0, [place] % (Auto) 9.0, Eos % (Auto) 0.5, Baso % (Auto) 0.5, Absolute Neuts (auto) 3.2, Absolute Lymphs (auto) 1.92, Nucleated RBC % 0 06/13/25 19:57: Troponin T Hi Sens 2 Hr 88 H* 06/14/25 01:06: WBC 5.4, RBC 3.80 L, Hgb 12.1, Hct 36.1 L, MCV 95.0, MCH 31.8, MCHC 33.5, RDW Std Deviation 46.9 H, RDW Coeff of Sushant 13.3, Plt Count 220, MPV 10.5, Immature Gran % (Auto) 0.400, Neut % (Auto) 44.3 L, Lymph % (Auto) 45.0 H, [place] % (Auto) 8.7, Eos % (Auto) 0.9, Baso % (Auto) 0.7, Absolute Neuts (auto) 2.4, Absolute Lymphs (auto) 2.43, Nucleated RBC % 0, APTT 111.8 H*, Sodium 137, Potassium 3.9, Chloride 103, Carbon Dioxide 23.9, Anion Gap 11, BUN 19, C reatinine 0.56 L, Estim Creat Clear Calc 51.04, Est GFR (MDRD) Non-Af 96, B UN/Creatinine Ratio 34.4 H, Glucose 96, Calcium 8.4, Total Bilirubin 0.24, AST 28, ALT 6, Alkaline Phosphatase 46, Troponin T Hi Sens 4Hr 114 H*, Total Protein 5.9, Albumin 3.7, Globulin 2.2, Albumin/Globulin Ratio 1.7, Triglycerides 89, C holesterol 280 H, LDL Cholesterol, Calc 166, VLDL Cholesterol 18, HDL Cholesterol 96, Cholesterol/HDL Ratio 2.92 Radiography Diagnostic Testing: Radiology Impression Chest X-Ray 06/13/25 17:48 IMPRESSION: No focal consolidations. Reading Location: [id number] D/C Instructions DC O2, CPAP, BIPAP Needs Home O2 Discharge instructions: No Meaningful Use Info Meaningful Use Meaningful Use Diagnoses (Choose all that apply): AMI AMI/Post PCI/Angioplasty Aspirin given w/in 24hrs of arrival?: Yes ASA at discharge?: Yes Antiplatelet Therapy at Discharge:: Yes Statins at discharge?: Yes Ant/ARB at discharge?: No Reason Ant/ARB not ordered:: Not indicated Beta [place] at discharge?: Yes Done w/ Acute ID measure.: Yes Documented LVEF (%): 45 Discharge Plan Admission Admit Date/Time: 06/13/25 19:16 Attending Provider: Aftab Lucero Primary Care Provider: Narinder Crum Consulting Providers: Cade Humphries; Hui Morel Discharge Orders/Prescriptions Prescriptions: No Action levothyroxine 75 mcg tablet 75 mcg PO DAILY Patient Comments: [NO ORIGINAL SIG] pantoprazole 20 mg tablet,delayed release (DR/EC) 20 mg PO QDAY nifedipine 30 mg tablet extended release 30 mg PO DAILY tramadol 50 mg tablet 50 mg PO PRN alendronate 70 mg tablet 70 mg PO .weekly Patient Comments: [NO ORIGINAL SIG] Rx Instructions: Take on Wednesdays tizanidine 4 mg tablet 4 mg PO QHS amitriptyline 50 MG tablet 50 mg PO DAILY lubiprostone 24 mcg capsule 24 mcg PO BID venlafaxine 37.5 mg capsule,extended release 24hr 37.5 mg PO DAILY Referrals / Follow Up: Narinder Crum MD [Primary Care Provider] - Disposition Disposition (needs filled in before D/C Order can be placed): Acute Care Hospital Charges/Coding Visit Charges Inpatient E&M: 58775 Disch Hosp >30min
--- NOTE | 2025-07-01 09:47 | CL.D_ITS ---
Patient Name: RICHIE OSWALD Study Date: 06/14/2025 Performing: Edil Hong MD Ht: 63 inches 160.02 cm : 1950 Wt: 139.1 lbs 63 kg Age: 75 Gender: female BSA: 1.66 PROCEDURE(S) PERFORMED [id number]-([id number])LHC/COR/LV CLINICAL PROFILE AND INDICATIONS Indications: Worsening Angina Heart Failure: None Stress/Imaging Stress/Image Study Performed: No CAD Presentations: Non-STEMI. 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 RECOMMENDATIONS Surgery consult for coronary revascularization DESCRIPTION OF PROCEDURE The patient arrived to the procedure lab. The risks and benefits of the procedure as well as a full description of our services here and current unavailability of surgical backup were fully explained to the patient and/or their significant other prior to the catheterization. The Timeout was completed, verifying the correct patient and procedure. The patient's procedural site was prepped and draped in the usual fashion. Local anesthetic was given subcutaneously to right radial region with Lidocaine 2%. Using a modified Seldinger technique, arterial access was obtained via the right radial artery, a 6Fr sheath was inserted. Right Coronary Artery selective angiography was then performed in multiple views using a 5 Fr. 4.0 [place] catheter. Left Coronary Artery selective angiography was performed in multiple views using a 5 Fr. 4.0 [place] catheter. Left Ventriculography was performed in PRINGLE projection using a 5 Fr. [place] catheter. LV to AO pullback pressures were then recorded.The arterial sheath was pulled and a TR Band was applied for hemostasis CORONARY ANGIOGRAPHY DOMINANCE: Right Dominant LEFT HEART ASSESSMENT Left Ventricular Ejection Fraction: by LV Gram 45 % Anterior Hypokinesis - Mild. Lateral Hypokinesis - Moderate Depressed Left Ventricular systolic function LEFT MAIN: Mild luminal irregularities LEFT ANTERIOR DESCENDING ARTERY: Medium size vessel with proximal 70% stenosis mid 70% stenosis and mildly diffusely diseased segment towards the apex. CIRCUMFLEX ARTERY: Nondominant but medium to large size vessel with a first prominent obtuse marginal branch which bifurcates within 99% proximal stenosis. A large AV groove branch is noted and gives off a second obtuse marginal branch with mild diffuse disease. RIGHT CORONARY ARTERY: Dominant right coronary artery which is subtotally occluded in the midsegment with distal [id number] collaterals noted. COMPLICATIONS No Complications PROCEDURE MEDICATIONS Fentanyl 50 mcg IV Versed 1 mg IV Oxygen: 2 L/min via nasal cannula Baby Aspirin (81mg) 1 Tabs PO @ 06/14/2025 11:17:55 Heparin given IA 06/14/2025 11:39:46 Nitro glycerin 25mg / 250ml D5W @ 9 mcg/min IV continued from the unit 06/14/2025 11:27:07 Verapamil 2.5mg, Ntg 100mcgs, 3000 units of Heparin given IA 06/14/2025 11:39:46 SUMMARY OF HEMODYNAMIC DATA Time AIR REST ECG 11:16:13 AO 105/37 (68) SA 11:43:49 AO 111/48 (75) 11:44:17 LV 138/-8, 3 11:50:55 LV 139/-12, 3 11:51:02 LV 138/-4, 6 11:51:54 LVp 128/-11, 4 11:52:02 AOp 128/51 (84) 11:52:08 Signed By Edil Hong MD On 06/14/2025 17:40:46 Edil Hong MD
== END 2025-06-14 15:36 | disposition short-term general hospital (02) | DRG 282 ==
LOC: ED 18:54 → ICU 19:42
PROVIDERS: Admitting Provider Family Medicine; Emergency Provider Emergency Medicine; PCP Family Medicine; Visit Provider Internal Medicine
DX: I21.4 Non-ST elevation (NSTEMI) myocardial infarction (principal); E03.9 Hypothyroidism, unspecified; I12.9 Hypertensive chronic kidney disease with stage 1 through stage 4 chronic kidney disease, or unspecified chronic kidney disease; F32.A Depression, unspecified; E78.00 Pure hypercholesterolemia, unspecified; N18.2 Chronic kidney disease, stage 2 (mild); I25.110 Atherosclerotic heart disease of native coronary artery with unstable angina pectoris; I25.5 Ischemic cardiomyopathy; I73.00 Raynaud's syndrome without gangrene; F41.9 Anxiety disorder, unspecified; K59.04 Chronic idiopathic constipation; Z79.83 Long term (current) use of bisphosphonates; Z79.890 Hormone replacement therapy; Z79.899 Other long term (current) drug therapy
CPT/HCPCS: 71045; 80048; 80053; 80061; 83735; 84484; 85025; 85610; 85730; 93005; 93306; 93458; 94668; 94762; 99152; 99153; 99285; J0153; Q9967; A4216; C1769; C1894

== ENCOUNTER 2025-06-28 15:44 | Emergency (ER) | payer MEDICARE, OTHER, SELFPAY ==
[2025-06-28 15:46] VITALS: BP 168/82; PULSE 81; RESP 18; TEMP 37.1; O2SAT 100; BMI 23.6
--- NOTE | 2025-06-28 16:20 | EKG12_ITS ---
Test Reason : WEAKNESS/LIGHTHEADED Blood Pressure : */* mmHG Vent. Rate : 81 BPM Atrial Rate : 81 BPM P-R Int : 144 ms QRS Dur : 82 ms QT Int : 418 ms P-R-T Axes : 47 68 132 degrees QTcB Int : 485 ms Normal sinus rhythm T wave abnormality, consider anterior ischemia QTcB >= 480 msec Abnormal ECG Confirmed by KHADIJAH NUÑEZ, RILEY ([id number]), loan expeditor ENZO PATE ([id number]) on 07/01/2025 1:05:48 PM Referred By: TRISH Confirmed By: RILEY LUCIO MD
--- NOTE | 2025-06-28 16:24 | EX.ED.DYSGE1 ---
HPI <BRAYDEN Small - Last Filed: 06/28/25 19:52> History of Present Illness Chief Complaint: Abn Labs Narrative Narrative: 75-year-old female with past medical history of HTN, HLD, recent CABG presents with 1 day of generalized weakness and states she would like her blood work checked. [facility] and was diagnosed with an NSTEMI and was admitted from 06/14 through 06/22 with a CABG done on 06/[address] Zhang. After going home she felt weak and had some difficulty speaking and processing so she was readmitted from 06/24 through 06/27 for altered mental status. She states she had an MRI of her brain that was negative for stroke. She went home last night, had some diarrhea overnight, has not been eating and drinking much and just feels extremely tired and weak today prompting her to come in. She has 2/10 pain over the incision site and is taking Tylenol but denies any chest pain or shortness of breath. No fever, chills, or cough. No vomiting or abdominal pain. No urinary symptoms. PFSH <BRAYDEN Small - Last Filed: 06/28/25 19:52> [facility] Medical History Chronic idiopathic constipation CKD (chronic kidney disease), stage II GERD (gastroesophageal reflux disease) IBS (irritable bowel syndrome) HTN (hypertension) Raynaud disease Fibromyalgia Cataract High cholesterol Hypothyroidism Home Medications ?Medication ?Instructions ?Recorded ?Last Taken ?Type amitriptyline 50 mg tablet 50 mg PO DAILY 11/12/15 06/12/25 History alendronate 70 mg tablet 70 mg PO .weekly 01/25/25 06/12/25 History levothyroxine 75 mcg tablet 75 mcg PO DAILY 01/25/25 06/13/25 History nifedipine 30 mg tablet,extended 30 mg PO DAILY 01/25/25 06/13/25 History release pantoprazole 20 mg tablet,delayed 20 mg PO QDAY 01/25/25 06/13/25 History release tizanidine 4 mg tablet 4 mg PO QHS 01/25/25 06/12/25 History tramadol 50 mg tablet 50 mg PO PRN 01/25/25 Unknown History lubiprostone 24 mcg capsule 24 mcg PO BID 06/13/25 06/13/25 History venlafaxine 37.5 mg 37.5 mg PO DAILY depression 06/13/25 Unknown History capsule,extended release 24 hr Allergy/AdvReac Type Severity Reaction Status Date / Time cyclobenzaprine HCl (From AdvReac Other Verified 06/28/25 15:46 Flexeril) promethazine (From Phenergan) AdvReac Other Verified 06/28/25 15:46 Family History Father Heart disease CAD (coronary artery disease) Hypertension Myocardial infarction HLD (hyperlipidemia) Mother Hypertension Surgical History Previous back surgery H/O wrist surgery History of ankle surgery H/O shoulder surgery Social History household members: spouse Smoking Status: Never smoker alcohol intake: current alcohol intake frequency: holidays/special occasions only substance use type: does not use ROS <BRAYDEN Small - Last Filed: 06/28/25 19:52> ROS ED ROS Narrative Constitutional: Negative for fever, chills. CVS: Negative for chest pain, syncope. Respiratory: Negative for shortness of breath, cough. GI: Positive for diarrhea. Negative for abdominal pain, nausea, vomiting. : Negative for dysuria. EXAM <BRAYDEN Small - Last Filed: 06/28/25 19:52> Physical Exam Narrative Exam Narrative: CONST: Patient sitting in no acute distress. EYES: Normal inspection. ENT: Normal inspection, moist mucous membranes. NECK: Normal inspection. RESP: No respiratory distress, CTAB. CVS: Regular rate and rhythm, no murmur, no gallop. ABD: Soft and nontender, no guarding or rebound, nondistended. SKIN: Color normal, no rash, warm, dry, intact. EXTREMITIES: Normal appearance, no pedal edema. NEURO: Alert and answering questions appropriately. PSYCH: Normal affect. Const Vital Signs: 06/28/25 15:46 06/28/25 16:11 06/28/25 17:38 Temperature 98.7 F 98.7 F Temperature Source Oral Pulse Rate 81 81 Respiratory Rate 18 18 Respiratory Effort Normal Non-Labored Respiratory Pattern Normal Blood Pressure 168/82 H 168/82 H Blood Pressure Mean 110 110 Pulse Ox 100 100 Oxygen Delivery Method Room Air 06/28/25 17:44 Temperature 98.7 F Temperature Source Pulse Rate 81 Respiratory Rate 18 Respiratory Effort Respiratory Pattern Blood Pressure 168/82 H Blood Pressure Mean 110 Pulse Ox 100 Oxygen Delivery Method <Dr. Yefri Ritter DO - Last Filed: 06/28/25 17:49> Physical Exam Const Vital Signs: 06/28/25 15:46 06/28/25 16:11 06/28/25 17:38 Temperature 98.7 F 98.7 F Temperature Source Oral Pulse Rate 81 81 Respiratory Rate 18 18 Respiratory Effort Normal Non-Labored Respiratory Pattern Normal Blood Pressure 168/82 H 168/82 H Blood Pressure Mean 110 110 Pulse Ox 100 100 Oxygen Delivery Method Room Air 06/28/25 17:44 Temperature 98.7 F Temperature Source Pulse Rate 81 Respiratory Rate 18 Respiratory Effort Respiratory Pattern Blood Pressure 168/82 H Blood Pressure Mean 110 Pulse Ox 100 Oxygen Delivery Method MDM <BRAYDEN Small - Last Filed: 06/28/25 19:52> [facility] Narrative Medical decision making narrative: 75-year-old female presents with fatigue and generalized weakness since she got home from the hospital last night. She had a CABG on June 18. She is awake alert no distress. Vitals are stable. Normal cardiopulmonary exam. Sternotomy incision is healing well without signs of infection. Abdomen soft and nontender. She is moving all extremities and neurovascularly intact. EKG is sinus rhythm with T wave inversions in the chest leads similar to previous. She is not having new chest pain so troponins are indicated, especially as it will still be elevated after surgery. CBC shows mild anemia at 10.5 which is expected after recent surgery. BMP shows no major abnormalities. CXR and UA are negative for infection. I think she is weak from her recent CABG and deconditioning. I recommend that she follow-up with her surgeon and complete cardiac rehab as instructed. She was discharged in stable condition. Supervisory Physician Note Patient was seen and examined with the Advanced Practice Provider. Nursing notes and vital signs have been reviewed. Pertinent old records have been reviewed. I agree with the essential elements of the CRISTIANO's history, physical exam, assessment, and plan. The differential diagnosis and management options were discussed with the CRISTIANO. I participated in determining and agree with the management, procedures, final impression and disposition as documented. See changes noted by me. Please see addendum or separate note for any additional details. 75-year-old female with past medical history of HTN, HLD, recent CABG presents for evaluation of generalized weakness. Requesting blood work be performed. CABG was performed secondary to an NSTEMI at [facility]. She was readmitted for altered mental status in which she had MRI of the brain to rule out stroke. States she had a small episode of nonbloody diarrhea that has since resolved. States she feels tired with generalized weakness. States she has yet to start PT/OT but states this is scheduled to start soon. Denies any fever, chills, URI symptoms, cough, abdominal pain, nausea, vomiting, dysuria. Gen: A&O x3, NAD Head: Normocephalic, atraumatic Eyes: No sclera icterus, conjunctiva clear, PERRL ENT: Moist mucous membranes Neck: Trachea midline, No JVD CV: RRR, no murmurs, midline incision healing well without signs of infection, no peripheral edema-mild bruising to the left lower extremity from harvest site of the vein Resp: Lungs CTA BL, no w/r/c GI: Abd soft, non-distended, non-tender, no r/r/g Musc: Full ROM, no deformity Skin: Warm, dry Neuro: Alert, oriented, grossly intact, sensation intact Psych: Cooperative, appropriate mood and affect Differential diagnosis includes but is not limited to deconditioning secondary to recent hospitalization, electrolyte abnormality, GIAN, anemia, UTI, pneumonia. EKG was reviewed and interpreted by me, ED physician. Normal sinus rhythm heart rate 81. Chest x-ray without pneumonia, effusion, cardiomegaly, pneumothorax. This was personally reviewed and interpreted by me, ED physician. You can see the sternotomy wires. CBC without leukocytosis. Patient does have anemia of 10.5 And thrombocytosis of 583. Likely secondary to her previous surgery. BMP unremarkable. UA negative for UTI. At this point in time, no clear etiology for patient's generalized weakness. Again I think it is secondary to deconditioning from recent hospitalizations without starting PT/OT yet. Patient stable to discharge home. She is comfortable discharging home. Return precautions explained. Impression: 1. Generalized weakness 2. Recent hospitalization and CABG 3. Anemia likely secondary to #2 History & Record Review Discussion w/independent historian: Patient and Family Additional record(s) reviewed:: Prior outpatient record Lab Data Attestation: I reviewed the patient's lab results. Labs: Laboratory Results - last 24 hr 06/28/25 16:14 WBC 10.9 RBC 3.34 L Hgb 10.5 L Hct 31.8 L MCV 95.2 MCH 31.4 MCHC 33.0 RDW Std Deviation 52.2 H RDW Coeff of Sushant 15.5 H Plt Count 583 H MPV 10.0 Immature Gran % (Auto) 0.700 Neut % (Auto) 74.2 H Lymph % (Auto) 16.7 L [place] % (Auto) 7.7 Eos % (Auto) 0.2 Baso % (Auto) 0.5 Absolute Neuts (auto) 8.1 H Absolute Lymphs (auto) 1.82 Nucleated RBC % 0 Sodium 137 Potassium 4.4 Chloride 101 Carbon Dioxide 21.7 Anion Gap 15 BUN 12 Creatinine 0.68 L Estim Creat Clear Calc 51.04 Est GFR (MDRD) Non-Af 91 BUN/Creatinine Ratio 18.3 Glucose 124 H Calcium 10.0 Urine Color Straw Urine Clarity Clear Urine pH 6.5 Ur Specific [place] 1.015 Urine Protein 15 H Urine Glucose (UA) Normal Urine Ketones Negative Urine Occult Blood Negative Urine Nitrite Negative Urine Bilirubin Negative Urine Urobilinogen Normal Ur Leukocyte Esterase Negative Urine RBC 0-5 SEEN Urine WBC 0-5 SEEN Ur Squamous Epith Cells 0-5 SEEN Urine Bacteria 0 SEEN Urine Mucus 0 SEEN Radiography Diagnostic Testing: Clinical Impression(s) from Imaging Studies Chest X-Ray 06/28/25 16:25 IMPRESSION: No acute cardiopulmonary disease. Reading Location: [facility] ED attending interpretation of 1 view chest x-ray shows normal heart size, no acute infiltrate, sternotomy wires. EKG Initial EKG: Attestation: I personally reviewed and interpreted this EKG as follows: Comments: Normal sinus rhythm 81 bpm Inverted T waves in chest leads No ST changes QTc 485 ms <Dr. Yefri Ritter, DO - Last Filed: 06/28/25 17:49> MDM MDM Narrative Medical decision making narrative: Supervisory Physician Note Patient was seen and examined with the Advanced Practice Provider. Nursing notes and vital signs have been reviewed. Pertinent old records have been reviewed. I agree with the essential elements of the CRISTIANO's history, physical exam, assessment, and plan. The differential diagnosis and management options were discussed with the CRISTIANO. I participated in determining and agree with the management, procedures, final impression and disposition as documented. See changes noted by me. Please see addendum or separate note for any additional details. 75-year-old female with past medical history of HTN, HLD, recent CABG presents for evaluation of generalized weakness. Requesting blood work be performed. CABG was performed secondary to an NSTEMI at [facility]. She was readmitted for altered mental status in which she had MRI of the brain to rule out stroke. States she had a small episode of nonbloody diarrhea that has since resolved. States she feels tired with generalized weakness. States she has yet to start PT/OT but states this is scheduled to start soon. Denies any fever, chills, URI symptoms, cough, abdominal pain, nausea, vomiting, dysuria. Gen: A&O x3, NAD Head: Normocephalic, atraumatic Eyes: No sclera icterus, conjunctiva clear, PERRL ENT: Moist mucous membranes Neck: Trachea midline, No JVD CV: RRR, no murmurs, midline incision healing well without signs of infection, no peripheral edema-mild bruising to the left lower extremity from harvest site of the vein Resp: Lungs CTA BL, no w/r/c GI: Abd soft, non-distended, non-tender, no r/r/g Musc: Full ROM, no deformity Skin: Warm, dry Neuro: Alert, oriented, grossly intact, sensation intact Psych: Cooperative, appropriate mood and affect Differential diagnosis includes but is not limited to deconditioning secondary to recent hospitalization, electrolyte abnormality, GIAN, anemia, UTI, pneumonia. EKG was reviewed and interpreted by me, ED physician. Normal sinus rhythm heart rate 81. Chest x-ray without pneumonia, effusion, cardiomegaly, pneumothorax. This was personally reviewed and interpreted by me, ED physician. You can see the sternotomy wires. CBC without leukocytosis. Patient does have anemia of 10.5 And thrombocytosis of 583. Likely secondary to her previous surgery. BMP unremarkable. UA negative for UTI. At this point in time, no clear etiology for patient's generalized weakness. Again I think it is secondary to deconditioning from recent hospitalizations without starting PT/OT yet. Patient stable to discharge home. She is comfortable discharging home. Return precautions explained. Impression: 1. Generalized weakness 2. Recent hospitalization and CABG 3. Anemia likely secondary to #2 Lab Data Labs: Laboratory Results - last 24 hr 06/28/25 16:14 WBC 10.9 RBC 3.34 L Hgb 10.5 L Hct 31.8 L MCV 95.2 MCH 31.4 MCHC 33.0 RDW Std Deviation 52.2 H RDW Coeff of Sushant 15.5 H Plt Count 583 H MPV 10.0 Immature Gran % (Auto) 0.700 Neut % (Auto) 74.2 H Lymph % (Auto) 16.7 L [place] % (Auto) 7.7 Eos % (Auto) 0.2 Baso % (Auto) 0.5 Absolute Neuts (auto) 8.1 H Absolute Lymphs (auto) 1.82 Nucleated RBC % 0 Sodium 137 Potassium 4.4 Chloride 101 Carbon Dioxide 21.7 Anion Gap 15 BUN 12 Creatinine 0.68 L Estim Creat Clear Calc 51.04 Est GFR (MDRD) Non-Af 91 BUN/Creatinine Ratio 18.3 Glucose 124 H Calcium 10.0 Urine Color Straw Urine Clarity Clear Urine pH 6.5 Ur Specific [place] 1.015 Urine Protein 15 H Urine Glucose (UA) Normal Urine Ketones Negative Urine Occult Blood Negative Urine Nitrite Negative Urine Bilirubin Negative Urine Urobilinogen Normal Ur Leukocyte Esterase Negative Urine RBC 0-5 SEEN Urine WBC 0-5 SEEN Ur Squamous Epith Cells 0-5 SEEN Urine Bacteria 0 SEEN Urine Mucus 0 SEEN Radiography Diagnostic Testing: Clinical Impression(s) from Imaging Studies Chest X-Ray 06/28/25 16:25 IMPRESSION: No acute cardiopulmonary disease. Reading Location: [id number] Discharge Plan Triage Chief Complaint: Abn Labs ED Midlevel Provider: Tammi Benedict ED Provider: Yefri Ritter Dx/Rx/DC Orders Clinical Impression: Generalized weakness, Hx of CABG Instructions: After Bypass Surg Recovery Prescriptions: No Action levothyroxine 75 mcg tablet 75 mcg PO DAILY Patient Comments: [NO ORIGINAL SIG] pantoprazole 20 mg tablet,delayed release (DR/EC) 20 mg PO QDAY nifedipine 30 mg tablet extended release 30 mg PO DAILY tramadol 50 mg tablet 50 mg PO PRN alendronate 70 mg tablet 70 mg PO .weekly Patient Comments: [NO ORIGINAL SIG] Rx Instructions: Take on Wednesdays tizanidine 4 mg tablet 4 mg PO QHS amitriptyline 50 MG tablet 50 mg PO DAILY lubiprostone 24 mcg capsule 24 mcg PO BID venlafaxine 37.5 mg capsule,extended release 24hr 37.5 mg PO DAILY Primary Care Provider: Narinder Crum Referrals: Narinder Crum MD [Primary Care Provider] - Activity Restrictions/Additional Instructions: Your labs, urine, chest x-ray all appear normal. I think you are a week from your recent bypass surgery and it will take a while to recover. Follow-up with your surgeons office and do cardiac rehab like they recommend. Rest, drink plenty of fluids and eat regularly. Print Language: Occitan Disposition Disposition: Home, Self Care Discharge Date/Time: 06/28/25 17:39
--- NOTE | 2025-06-28 16:25 | RAD_ITS ---
PROCEDURE: CHEST 1 VIEW (PORTABLE) 06/28/2025 REASON FOR EXAM: WEAKNESS TECHNIQUE: Frontal view of the chest. COMPARISON: 12/20/2023. FINDINGS: Lungs/Pleura: Clear. No pneumothorax or pleural effusion. Heart/Mediastinum: Top-normal in size. Evidence of prior CABG with sternotomy wires and multiple mediastinal surgical clips. Mild calcification of the aortic arch. Bones/Soft tissues: Mild degenerative changes of the spine. RAD/Chest 1 View (Portable) IMPRESSION: No acute cardiopulmonary disease. Reading Location: [id number]
[2025-06-28 16:29] LABS: Mucous, Urine 0 SEEN /hpf (<or=2+)
[2025-06-28 16:32] LABS: Hematocrit 31.8 % (37-47); Hemoglobin 10.5 g/dL (12.0-15.0); Immature Granulocytes Count 0.080 X10^3/uL (0.0-0.0); Mean Corp Hgb Conc 33.0 g/dL (32-36); Mean Corpuscular Volume 95.2 fL (81-99); Mean Platelet Vol. 10.0 fl (6.2-12.0); NRBC Flagged by Analyzer 0 % (0-5); Platelet Count 583 K/mm3 (150-450); RBC Distribution Width CV 15.5 % (11.6-14.6); RBC Distribution Width SD 52.2 fl (35.1-43.9); Red Blood Count 3.34 M/mm3 (4.2-5.4); White Blood Count 10.9 K/mm3 (4.4-11.0)
--- OUTSIDE RECORDS SUMMARY | 2025-06-28 16:34 | XMS RPT_ITS | CCD ---
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 Name Role Phone PRAVEEN CRUM Admitting Unavailable PRAVEEN CRUM Attending Unavailable PRAVEEN CRUM Primary Care Unavailable PRAVEEN CRUM Consulting Unavailable PROVIDER, UNKNOWN Consulting Unavailable BRANDON SEXTON Admitting Unavailable BRANDON SEXTON Attending Unavailable BRANDON SEXTON Primary Care Unavailable PRAVEEN CRUM Consulting Unavailable PROVIDER, UNKNOWN Consulting Unavailable WBC (Bld) [#/Vol] 8.0 10*3/uL Normal 3.6-10.7 [facility] Comment on above: Performed By: #### L [id number] ####Desktop Support Manager: MIGUEL LEAL ([phone])[facility] ([address] CBC panel Auto (Bld)on 06-21 Erythrocyte distribution width (RBC) [Ratio] 15.5 % High 11.5 - 15.0 % [facility] Hematocrit (Bld) [Volume fraction] 24.5 % Low 35.0 - 47.0 % [facility] Hemoglobin (Bld) [Mass/Vol] 7.7 g/dL Low 11.7 - 16.0 g/dL [facility] Interpretation and review of laboratory results Abnormal [facility] IPF 7 [facility] GTRAN MCH (RBC) [Entitic mass] 30.1 pg 26.0 - 34.0 pg [facility] MCHC (RBC) [Mass/Vol] 31.4 % 30.5 - 36.0 % [facility] GTRAN MCV (RBC) [Entitic vol] 95.7 fL 77.0 - 99.0 fL [facility] GTRAN Platelet mean volume (Bld) [Entitic vol] 11.6 fL 9.0 - 12.7 fL [facility] GTRAN Platelets (Bld) [#/Vol] 122 10*3/uL Low 140 - 440 10*3/uL [facility] RBC (Bld) [#/Vol] 2.56 10*6/uL Low 3.80 - 5.2 0 10*6/uL [facility] WBC (Bld) [#/Vol] 8 10*3/uL 3.6 - 10.7 10*3/uL [facility] ECG 12-LEADon 06-21-2025 ECG 12-LEAD IMPRESSION: Sinus rhythm Compared to ECG 06/19/2025 05:25:37 T-wave abnormality no longer present Possible ischemia no longer present Electronically Signed On 06-21-2025 17:13:05 EDT by Ladarius Peng Normal [facility] Laboratory - Chemistry and C hemistry - challengeon 06-21-2025 Magnesium [Mass/Vol] 1.7 mg/dL 1.6 - 2 .6 mg/dL [facility] MAGNESIUMon 06-21-2025 Magnesium [Mass/Vol] 1.7 mg/dL Normal 1.6-2.6 [facility] Comment on above: Result Comment: ROCIO Bhandari COMMENTS: Higher values can be expected in females during menses. Performed By: #### L [id number], [id number] ####Desktop Support Manager: MIGUEL LEAL ([phone])[address] Magnesium [Mass/Vol]on 06-21 Interpretation and review of laboratory results Normal [facility] No Panel Informationon 06-21 P [place] 48 degrees [facility] [place] Interval 150 ms [facility] QRS [place] 61 degrees [facility] QRSD Interval 100 ms [facility] QT Interval 407 ms [facility] QTC Interval 430 ms [facility] T Wave [place] 0 degrees [facility] CV EPIPHANY [facility] Nursing Noteon 06-21-2025 Nursing Note Wound Care consulted for Pressure Injury Prevention. Pt's Wilmer= 19, pt is no longer at risk at this time. Skin Care Precaution order set in place. Dietitian consult in place. PT/OT consults in place. Will continue to follow peripherally. Please vocera or secure chat message with any questions. Tanja Matamoros RN Normal [facility] Progress Noteon 06-21-2025 Progress Note PHYSICAL THERAPY [facility] Treatment Note Name/MRN: Richie Armas ([id number]) Date of : 1950 Age: 75 y.o. Room/Bed: T1-101/T1-101 A Discharge Recommendation: Home with assist PRN, Home with Home health PT Other: TBD- does not own DME Assessment Pt tolerated treatment session well and is progressing towards goals. Pt demonstrates ability to ambulate and perform transfers with no device and SBA. Cues for sternal precautions. Recommend discharge home with assist PRN and home health care to improve mobility, activity tolerance, and strength within pt's home environment. Subjective Pt is sitting up in a chair upon arrival and is agreeable to PT treatment session. RN okayed session. Pain: 0-10 pain scale: 3/10 Location: sternum Medical Precautions: No active isolations Proper PPE donned/doffed in accordance with facility standards. Fall Risk: Sal Fall Risk Score: 35 (Medium Risk) Precautions/Restriction s: Sternal Precautions: No lifting greater than 10 lbs. Ok for modified UE precautions using Keep Your Move in the Tube technique Lines/Drains/Airways: tele Overall Cognitive Status: WFL Overall Orientation Status: Oriented x4 Family/Caregiver Present: none Objective Bed Mobility Sit to supine: SBA Pt up in chair upon arrival Pt performed via log roll technique and cues to maintain sternal precautions when performing bed mobility. Transfers/Mobility Sit to stand: SBA Stand to sit: SBA Sit to stand from chair Device(s) used: None Ambulation Ambulation 1 Assistive device(s) used: None Assist level: SBA Distance (ft): ~110 ft in [place] Quality of gait: decreased fouzia, decreased step height, no overt LOB noted. Mild SOB during ambulation and cues for pursed lip breathing. 1 standing rest break required. HR <80bpm during session Pt reports increased fatigue on this date and declined 2nd ambulation trial. Exercises Upper extremity: P&C's 1-9 x10 reps each Cues for pursed lip breathing and proper form. Plan Continue acute PT per plan of care. Safety/Education Safety Safety Devices in place: All fall risk precautions in place, call light within reach, left in bed, gait belt, and no alarms engaged upon entry Restraints: No Education Education Given To: patient Education Provided: PT Role, Gait Training, Home Exercise Program, Transfer Training, Equipment, Discharge Recommendations, Benefits of Increasing Activity, and Breathing Techniques Education Method: Verbal Barriers to Learning: None Education Outcome: Verbalized Understanding Outcome Measures AM-PAC AM-PAC Inpatient Mobility Raw Score (No Stairs) : 15 JH-HLM -HLM Score: Walked 25 ft or more (i.e. walked outside of room) Goals Patient Stated Goal: To be up walking independently and return to home soon Encounter Problems Encounter Problems (Active) Cardiac Patient will ambulate 300 feet or ambulate 5 minutes with independence with RPE of 14 or lower. (Progressing) Start: 06/19/25 Expected End: 07/03/25 Patient will be independent with P&C exercises. (Progressing) Start: 06/19/25 Expected End: 07/03/25 Patient will be independent with managing secretions and home walking program. (Progressing) Start: 06/19/25 Expected End: 07/03/25 Transfers Patient will perform bed mobility with independence in order to improve independence and prepare for out of bed mobility. (Progressing) Start: 06/19/25 Expected End: 07/03/25 Patient will complete functional transfer with no assistive device with independence in order to prepare for ambulation. (Progressing) Start: 06/19/25 Expected End: 07/03/25 Therapy Time Individual Co-treatment Time In 09 Time Out 0937 Minutes 12 Timed Code Treatment Minutes: 12 Minutes (1 unit Gait) Andres Laurent, PT Normal [facility] Progress Note [facility] Interventional Cardiology NAME: Richie Armas DATE OF : 1950 CHIEF COMPLAINT NSTEMI ASSESSMENT AND PLAN NSTEMI MD CAD s/p CABG x 3 Patient remains stable without angina. She is tolerating medical therapy. Will continue GDMT: lifelong aspirin, metoprolol, and high intensity statin. Recommend Plavix for NSTEMI when stable. Continue phase 1 cardiac rehab and IS. Reinforced protein intake. Lifestyle modification including: a heart-healthy diet (low in fat and cholesterol). Plan for phase 2 cardiac rehab with exercise for 30 minutes a day 3 or more days a week once cleared by CTS. Weight loss. Avoid caffeine, alcohol and tobacco products. Reduce stress. Raynaud's Recommend resuming her nifedipine at low dose if appropriate for symptom management. Discussed with primary team, who will address. Hyperlipidemia, stable Last LDL 190 above recommended goal of <55 mg/dL per ESC guidelines. Last LFTs were stable. Continue high intensity rosuvastatin. Follow heart healthy diet (low in fat and cholesterol). Blood loss anemia S/p 1 unit RBCs. H&H remains stable. Prediabetes Last HgbA1c was 5.8%, well controlled, goal <7.5%. Continue current therapy. Follow ADA SUBJECTIVE Richie Armas is an 75 y.o. female presents from [facility]25 with past medical history significant for CKD stage II, Raynaud's, fibromyalgia, chronic back pain s/p lumbar spinal surgery, hypothyroidism, GERD, IBS and anxiety and depression. When patient presented to the hospital she reported increase chest pain during her daily walks for about 1 week. She initially thought it may be 2/2 GERD but became concerned when CP did not resolve with rest. She was found to be NSTEMI. Her LHC at [facility] showed MVCAD. She was transferred to [facility] for CABG evaluation. She had a normal TTE with EF 50% on 06/15. She underwent CABG x [address] Hinson 06/18. Today POD 3. CXR mild pulmonary congestion. VS stable. She is on room air. BMP stable. H&H dropped. Platelets improved. She was ordered dose of furosemide. She is up to the chair. She feels better now that CT is out. Her breathing is good. Gets fatigued with PT. No CP, SOB, or palpitations. Appetite remains down. She move her bowels. No acute events overnight. Allergies[1] Medical History[2] OBJECTIVE Vitals: 06/21/25 0900 06/21/25 1000 06/21/25 1100 06/21/25 1200 BP: 129/65 (!) 103/49 107/54 116/66 BP Location: Left arm Patient Position: Lying Pulse: 65 54 59 Resp: 17 Temp: 36.9 ?C (98.4 ?F) TempSrc: Temporal SpO2: 98% Weight: Height: Intake/Output Summary (Last 24 hours) at 06/21/2025 1254 Last data filed at 06/21/2025 1116 Gross per 24 hour Intake 550 ml Output 825 ml Net -275 ml MEDICATIONS Scheduled Meds[3] INFUSION MEDICATIONS Continuous Meds[4] Physical Exam Constitutional: General: She is not in acute distress. Appearance: Normal appearance. Neck: Vascular: No JVD. Cardiovascular: Rate and Rhythm: Normal rate and regular rhythm. Pulses: Normal pulses. Heart sounds: Normal heart sounds. No murmur heard. Pulmonary: Effort: Pulmonary effort is normal. Breath sounds: Normal breath sounds. No rales. Chest: Comments: Mid sternal incision is dry and well approximated Skin: General: Skin is warm and dry. Findings: Bruising present. Neurological: Mental Status: She is alert and oriented to person, place, and time. Psychiatric: Mood and Affect: Mood normal. Speech: Speech normal. LAB VALUES AND TESTING REVIEWED Lab Results Component Value Date NA 135 (L) 06/21/2025 K 4.0 06/21/2025 CL 101 06/21/2025 CO2 25 06/21/2025 BUN 11 06/21/2025 CREATININE 0.75 06/21/2025 GLUCOSE 113 06/21/2025 CALCIUM 8.9 06/21/2025 MG 1.7 06/21/2025 PHOS 3.3 06/18/2025 Lab Results Component Value Date ALT 7 06/18/2025 AST 31 06/18/2025 ALKPHOS 52 06/18/2025 BILITOT 0.3 06/18/2025 Lab Results Component Value Date WBC 8.0 06/21/2025 HGB 7.7 (L) 06/21/2025 HCT 24.5 (L) 06/21/2025 MCV 95.7 06/21/2025 PLT 122 (L) 06/21/2025 Lab Results Component Value Date CHOL 295 (H) 06/15/2025 Lab Results Component Value Date HDL 79 06/15/2025 Lab Results Component Value Date TRIG 129 06/15/2025 Lab Results Component Value Date LDLCALC 190 (H) 06/15/2025 Lab Results Component Value Date TSH 2.71 06/14/2025 Lab Results Component Value Date HGBA1C 5.8 (H) 06/16/2025 CARDIAC TESTS TELEMETRY FINDINGS: SB-NSR with ventricular rate 50-70 bpm no ectopy EKG: Encounter Date: 06/14/25 ECG 12 lead Result Value Heart Rate 67 QRSD Interval 100 QT Interval 407 QTC Interval 430 P [place] 48 QRS [place] 61 T Wave [place] 0 [place] Interval 150 Impression Sinus rhythm Tracing reviewed ECHOCARDIOGRAM: 06/14/25 TRANSTHORACIC ECHOCARDIOGRAM (TTE) COMPLETE (CONTRAST/BUBBLE/3D PRN) 06/16/2025 8:47 AM (Final) Int (more content not included)... Normal [facility] Vital signson 06-21-2025 Heart rate 67 /min bpm [facility] XR CHEST 1 VIEWon 06-21-2025 XR CHEST 1 VIEW Patient Name: RICHIE ARMAS : 1950 Exam Date/Time: 06/21/2025 05:13 Procedure: XR CHEST 1 VIEW Ordering Provider: VEGA KYLE Reason For Exam: Shortness of breath AP CHEST X-RAY CLINICAL INDICATION: Shortness of breath TECHNIQUE: AP portable x-ray of the chest. COMPARISON: 06/20/2025 FINDINGS: Lines/Devices: Chest tube or drain in the left upper quadrant of the abdomen is no longer identified. Right IJ sheath remains in place. Heart/Mediastinum: Status post CABG with stable cardiomegaly. Pulmonary venous congestion. Lungs: Left basilar opacities most likely represent atelectasis. Bones: Unremarkable IMPRESSION: Cardiomegaly and pulmonary venous congestion. Left basilar atelectasis. Report Dictated on Electronically Signed By: Brandon Roldan MD Electronically Signed Date/Time: 06/21/2025 6:54 AM EDT Normal [facility] XR Chest Single viewon 06-21 [facility] Radiology Study observation (narrative) [facility] xavier BASIC METABOLIC PANELon 05-23 Anion gap [Moles/Vol] 8 mmol/L Normal 3-13 [facility] Comment on above: Performed By: #### L AB15, [id number] ####Desktop Support Manager: MIGUEL LEAL ([phone])[facility] ([id number] Calcium [Mass/Vol] 9.0 mg/dL Normal 8.8-10.0 [facility] Comment on above: Performed By: #### L AB15, [id number] ####Desktop Support Manager: MIGUEL LEAL ([phone])[facility] ([facility])[address] [place] [address] Chloride [Moles/Vol] 101 mmol/L Normal 98-107 [facility] Comment on above: Performed By: #### L AB15, [id number] ####Desktop Support Manager: MIGUEL LEAL ([phone])[facility] ([facility])[address] [place] [address] [place] CO2 [Moles/Vol] 25 mmol/L Normal 23-31 [facility] Comment on above: Performed By: #### L AB15, [id number] ####Desktop Support Manager: MIGUEL LEAL ([phone])[facility] ([facility])[address] [place] [address] Creatinine [Mass/Vol] 0.76 mg/dL Normal 0.57-1.11 [facility] Comment on above: Performed By: #### L AB15, [id number] ####Desktop Support Manager: MIGUEL LEAL ([phone])[facility] ([facility])[address] [place] [address] [place] GLOMERULAR FILTRATION RATE ML/MIN/1.73 SQ M.PREDICTED 82.3 mL/min/1.73m*2 Normal >60.0 [facility] Comment on above: Result Comment: Calc ulation based on the Chronic Kidney Disease Epidemiology Collaboration (CKD-EPI) equation refit without adjustment for race Performed By: #### L AB15, [id number] ####Desktop Support Manager: MIGUEL LEAL ([phone])[facility] ([facility])[address] [place] [address] [place] Glucose [Mass/Vol] 146 mg/dL High 82-115 [facility] Comment on above: Performed By: #### L AB15, [id number] ####Desktop Support Manager: MIGUEL LEAL ([phone])[facility] ([facility])[address] [place] [address] Potassium [Moles/Vol] 3.9 mmol/L Normal 3.5-5.1 [facility] Comment on above: Result Comment: [facility] potassium values may be up to 0.5 mmol/L lower than serum values. Performed By: #### L AB15, [id number] ####Desktop Support Manager: MIGUEL LEAL ([phone])[facility] ([facility])[address] [place] [address] Sodium [Moles/Vol] 134 mmol/L Low 136-145 [facility] Comment on above: Performed By: #### L AB15, [id number] ####Desktop Support Manager: MIGUEL LEAL ([phone])[facility] ([facility])[address] [place] [address] Urea nitrogen [Mass/Vol] 13 mg/dL Normal 9-23 [facility] Comment on above: Performed By: #### L AB15, [id number] ####Desktop Support Manager: MIGUEL LEAL ([phone])[facility])[address] [place] [address] Basic metabolic 1998 panelon 06-20-2025 Anion gap [Moles/Vol] 8 mmol/L 3 - 13 mmol/L [facility] Calcium [Mass/Vol] 9 mg/dL 8.8 - 10. 0 mg/dL [facility] Chloride [Moles/Vol] 101 mmol/L 98 - 10 7 mmol/L [facility] CO2 [Moles/Vol] 25 mmol/L 23 - 31 mmol/L [facility] Creatinine [Mass/Vol] 0.76 mg/dL 0.57 - 1.11 mg/dL [facility] GFR/1.73 sq M.predicted (S/P/Bld) [Vol rate/Area] 82.3 mL/min - PINF [facility] Glucose [Mass/Vol] 146 mg/dL High 82 - 115 mg/dL [facility] Interpretation and review of laboratory results Abnormal [facility] Potassium [Moles/Vol] 3.9 mmol/L 3.5 - 5.1 mmol/L [facility] Sodium [Moles/Vol] 134 mmol/L Low 136 - 145 mmol/L [facility] Urea nitrogen [Mass/Vol] 13 mg/dL 9 - 23 mg/dL [facility] CBC (HEMOGRAM)on 06-20-2025 Erythrocyte distribution width (RBC) [Ratio] 15.7 % High 11.5-15.0 [facility] Comment on above: Performed By: #### L [id number] ####Desktop Support Manager: MIGUEL LEAL ([phone])[facility])[address] [place] [address] Hematocrit (Bld) [Volume fraction] 27.1 % Low 35.0-47.0 [facility] Comment on above: Performed By: #### L AB294 ####Desktop Support Manager: MIGUEL LEAL ([phone])[facility])[address] [place] [address] Hemoglobin (Bld) [Mass/Vol] 8.8 g/dL Low 11.7-16.0 [facility] Comment on above: Performed By: #### L AB294 ####Desktop Support Manager: MIGUEL LEAL ([phone])[address] IPF 7 Normal [facility] Comment on above: Performed By: #### L AB294 ####Desktop Support Manager: MIGUEL LEAL ([phone])[address] MCH (RBC) [Entitic mass] 30.8 pg Normal 26.0-34.0 [facility] Comment on above: Performed By: #### L AB294 ####Desktop Support Manager: MIGUEL LEAL ([phone])[address] MCHC 32.5 % Normal 30.5-36.0 [facility] Comment on above: Performed By: #### L AB294 ####Desktop Support Manager: MIGUEL LEAL ([phone])[address] MCV (RBC) [Entitic vol] 94.8 fL Normal 77.0-99.0 [facility] Comment on above: Performed By: #### L [id number] ####Desktop Support Manager: MIGUEL LEAL ([phone])[facility] ([facility])[address] [place] [address] Platelet mean volume (Bld) [Entitic vol] 11.7 fL Normal 9.0-12.7 [facility] Comment on above: Performed By: #### L [id number] ####Desktop Support Manager: MIGUEL LEAL ([phone])[facility] ([facility])[address] [place] [address] Platelets (Bld) [#/Vol] 112 10*3/uL Low 140-440 [facility] Comment on above: Performed By: #### L [id number] ####Desktop Support Manager: MIGUEL LEAL ([phone])[facility])[address] [place] [address] RBC (Bld) [#/Vol] 2.86 10*6/uL Low 3.80-5.20 [facility] Comment on above: Performed By: #### L [id number] ####Desktop Support Manager: MIGUEL LEAL ([phone])[facility] ([facility])[address] [place] [address] WBC (Bld) [#/Vol] 7.6 10*3/uL Normal 3.6-10.7 [facility] Comment on above: Performed By: #### L [id number] ####Desktop Support Manager: MIGUEL LEAL ([phone])[facility])[address] [place] [address] CBC panel Auto (Bld)on 06-20 Erythrocyte distribution width (RBC) [Ratio] 15.7 % High 11.5 - 15.0 % [facility] Hematocrit (Bld) [Volume fraction] 27.1 % Low 35.0 - 47.0 % [facility] Hemoglobin (Bld) [Mass/Vol] 8.8 g/dL Low 11.7 - 16.0 g/dL [facility] Interpretation and review of laboratory results Abnormal [facility] IPF 7 [facility] MCH (RBC) [Entitic mass] 30.8 pg 26.0 - 34.0 pg [facility] MCHC (RBC) [Mass/Vol] 32.5 % 30.5 - 36.0 % [facility] MCV (RBC) [Entitic vol] 94.8 fL 77.0 - 99.0 fL [facility] Platelet mean volume (Bld) [Entitic vol] 11.7 fL 9.0 - 12.7 fL [facility] Platelets (Bld) [#/Vol] 112 10*3/uL Low 140 - 440 10*3/uL [facility] RBC (Bld) [#/Vol] 2.86 10*6/uL Low 3.80 - 5.2 0 10*6/uL [facility] WBC (Bld) [#/Vol] 7.6 10*3/uL 3.6 - 10.7 10*3/uL [facility] Laboratory - Chemistry and C hemistry - challengeon 06-20-2025 Glucose [Mass/Vol] 108 mg/dL High 70 - 100 mg/dL [facility] Magnesium [Mass/Vol] 2 mg/dL 1.6 - 2 .6 mg/dL [facility] MAGNESIUMon 06-20-2025 Magnesium [Mass/Vol] 2.0 mg/dL Normal 1.6-2.6 [facility] Comment on above: Result Comment: ROCIO R COMMENTS: Higher values can be expected in females during menses. Performed By: #### L AB15, [id number] ####Desktop Support Manager: MIGUEL LEAL ([phone])[address] Magnesium [Mass/Vol]on 06-20 Interpretation and review of laboratory results Normal [facility] No Panel Informationon 06-20 Interpretation and review of laboratory results Abnormal [facility] Progress Noteon 06-20-2025 Progress Note PHYSICAL THERAPY [facility] Treatment Note Name/MRN: Richie Armas ([id number]) Date of : 1950 Age: 75 y.o. Room/Bed: T1101/T1 A Discharge Recommendation: Home with assist PRN, Home with Home health PT Other: TBD- does not own DME Assessment Session split in two this date d/t Afib with HR 150-160 at times during walking in the AM. HR improved to the 60's in the PM. SBA for transfers and walking in the halls with the FWW. Cues for sternal precautions. Recommend disch to home with assist PRN and home health PT. Subjective AM: Pt on the toilet and agreeable to PT. Requested to return to bed after walking d/t light headedness and reporting chest feeling like its vibrating. HR noted to be up to 160bpm. RN in to administer metropolol. PM: Pt up standing in the room with her , agreeable to P&C exercises. Reported feeling much better. Pain: RN managing pain. [place] Pain Ratin = Hurts even more Pain Location: Sternum Medical Precautions: No active isolations Proper PPE donned/doffed in accordance with facility standards. Fall Risk: Sal Fall Risk Score: 60 (High Risk) Precautions/Restriction s: In AM, Chest tube and tele. Chest tube removed before PM session. Only on tele in PM. Overall Cognitive Status: WNL Overall Orientation Status: Oriented x4 Family/Caregiver Present: spouse present in PM Objective Bed Mobility Sit to supine: Mod Assist Scooting: SBA +Log roll to return to bed Transfers/Mobility Sit to stand: SBA Stand to sit: SBA Device(s) used: Front wheeled walker Ambulation Ambulation 1 Assistive device(s) used: Front wheeled walker Assist level: SBA Distance (ft): 110 ft x 2 in [place] Quality of gait: slow fouzia, SOB and feeling heavy in the chest. HR 150-160bpm. RN medicated afterwards. Balance During Session: Posture: fair Sitting - Static: Independent Sitting - Dynamic: SBA Standing - Static: SBA Standing - Dynamic: Contact Guard Exercises Exercises Upper Extremity: P&C's 1-9 x 10 each Comments: Cues for pursed lip breathing. IS x 5: 750-1000mL Exercises in the PM Plan Continue acute PT per plan of care. Safety/Education Safety Safety Devices in place: Left in bed in the AM with RN for meds. Left in chair in the PM with and RN notified pt was ready for another walk. Restraints: No Education Education Given To: patient Education Provided: PT Role, PT Goals, Gait Training, Plan of Care, Home Exercise Program, Precautions, Transfer Training, Discharge Recommendations, Benefits of Increasing Activity, and Breathing Techniques Education Method: Verbal and Demonstration Barriers to Learning: None Education Outcome: Demonstrated Understanding Outcome Measures AM-PAC AM-PAC Inpatient Mobility Raw Score (No Stairs) : 18 JH-HLM JH-HLM Score: Walked 25 ft or more (i.e. walked outside of room) Goals Patient Stated Goal: To be a model patient. To be up walking Indep and return to home soon Encounter Problems Encounter Problems (Active) Cardiac Patient will ambulate 300 feet or ambulate 5 minutes with independence with RPE of 14 or lower. (Not Addressed) Start: 06/19/25 Expected End: 07/03/25 Patient will be independent with P&C exercises. (Progressing) Start: 06/19/25 Expected End: 07/03/25 Patient will be independent with managing secretions and home walking program. (Progressing) Start: 06/19/25 Expected End: 07/03/25 Transfers Patient will perform bed mobility with independence in order to improve independence and prepare for out of bed mobility. (Progressing) Start: 06/19/25 Expected End: 07/03/25 Patient will complete functional transfer with no assistive device with independence in order to prepare for ambulation. (Progressing) Start: 06/19/25 Expected End: 07/03/25 Therapy Time Individual Co-treatment Time In 0910 Time Out 0928 Minutes 18 Timed Code Treatment Minutes: (x1 Gait, x1 TP) Variance: 10 (+ 10 mins from [id number]) Brianna Wright, PT [facility] Progress Note Cardiothoracic Surge ry Note PATIENT NAME: Richie Armas : 1950 (75 y.o.) TODAY'S DATE: 06/20/2025 Objective: BP 122/64 Pulse 71 Temp 36.3 ?C (97.4 ?F) (Temporal) Resp 16 Ht 5' 3 (1.6 m) Wt 142 lb 8 oz (64.6 kg) SpO2 99% BMI 25.24 kg/m? Chest tubes assessed: no air leak, subcutaneous air noted. Chest tubes removed without difficulty and dressing applied. Patient tolerated well. Patient and nurse educated on possible complications to observe for. Will continue to monitor. Normal [facility] Progress Note Department of Vehicle Detailer al Medicine Division of Endocrinology, Diabetes, & Metabolism Endocrinology Note Patient Name: Richie Armas : 1950 AGE: 75 y.o. Room/Bed: T1-101/T1-101 A Admission Date: 06/14/2025 Visit Date: 06/20/2025 Reason for Endocrine Consult: post heart Provider/Team Requesting Consult: cts PCP: PRAVEEN CRUM Outpt Plodder Operator: No ASSESSMENT: Stress hyperglycemia Steroid induced hyperglycemia Prediabetes Hypothyroidism CABGx3 HLD CKD PLAN: Blood sugars have been stable Stop Humalog low sliding scale and POCT checks Resume patient home levothyroxine dose Endocrine team will sign off at this time Poct prn Hypoglycemia management per protocol Carb controlled diet ANTICIPATED ENDOCRINE HOME GOING RECOMMENDATIONS: Optimized for Discharge from Endocrine standpoint: Yes Home Going Endocrine Rx Recommendations-- No diabetes medications Resume home levothyroxine dose Outpt Follow Up-- PCP SUBJECTIVE/HPI: CHIEF COMPLAINT: No chief complaint on file. S/p cabgx3 History of prediabetes Reports history of hypothyroidism on levothyroxine 50 mcg po daily per patient, managed by PCP, tsh 2.71 Bgl stable Up awake alert in bed Eating fairly well had breakfast Denies nausea vomiting abdominal pain VSS On full liquid diet Chest tube in place Spoke with team We will sign off at this time BGL below Stable on insulin drip 0.5/hr-will plan to transition off She is awake alert extubated up in chair currently Vitals are stable on O2 nasal cannula Chest tubes are in place Discussed prediabetes Patient not on any diabetes medications Did confirm her hypothyroidism history on levothyroxine at home follows PCP for this last labs were normal So far is only had water and richy jason will be on a full liquid diet today No current nausea vomiting noted Spoke with nursing Type of DM: Prediabetes Onset of DM: N/A Home DM Medication Regimen: N/A DM control (last A1c/glucose data): Lab Results Component Value Date HGBA1C 5.8 (H) 06/16/2025 Glucose Date/Time Value Ref Range Status 06/20/2025 08:05 AM 108 (H) 70 - 100 mg/dL Final 06/19/2025 09:40 PM 172 (H) 70 - 100 mg/dL Final 06/19/2025 04:46 PM 130 (H) 70 - 100 mg/dL Final 06/19/2025 11:01 AM 170 (H) 70 - 100 mg/dL Final 06/19/2025 09:02 AM 135 (H) 70 - 100 mg/dL Final 06/19/2025 07:00 AM 127 (H) 70 - 100 mg/dL Final Review of Systems All other systems reviewed and are negative. ROS negative except for those mentioned in HPI. OBJECTIVE: Vitals: 06/20/25 0515 06/20/25 0600 06/20/25 0700 06/20/25 0800 BP: 117/61 125/83 127/70 BP Location: Left arm Patient Position: Sitting Pulse: 74 76 73 Resp: 16 Temp: 36.3 ?C (97.4 ?F) TempSrc: Temporal SpO2: 99% Weight: 142 lb 8 oz (64.6 kg) Height: Physical Exam Vitals and nursing note reviewed. Constitutional: General: She is not in acute distress. Appearance: She is ill-appearing. She is not toxic-appearing. Interventions: Nasal cannula in place. HENT: Head: Normocephalic. Mouth/Throat: Mouth: Mucous membranes are moist. Cardiovascular: Rate and Rhythm: Normal rate. Pulmonary: Effort: Pulmonary effort is normal. Abdominal: Tenderness: There is no guarding. Musculoskeletal: Cervical back: Normal range of motion. Skin: General: Skin is warm and dry. Coloration: Skin is pale. Comments: Intact incision Neurological: Mental Status: She is alert and oriented to person, place, and time. Psychiatric: Mood and Affect: Mood normal. 24 hour intake/output: Intake/Output Summary (Last 24 hours) at 06/20/2025 0912 Last data filed at 06/20/2025 0700 Gross per 24 hour Intake 1364.84 ml Output 1005 ml Net 359.84 ml Diet: Adult diet Full liquid Medications (as per EMR): HomeMeds: Current Outpatient Medications Medication Instructions lubiprostone (AMITIZA) 24 mcg, 2 times daily with meals Scheduled Meds:Scheduled Meds[1] Continuous Infusions:Continuous Meds[2] PRN Meds:PRN Meds[3] Diagnostic Workup: I reviewed pertinent Laboratory results, Radiographic results, and Other Clinical Notes at the time of today's encounter. Labs: No components found for: LABA1C No components found for: EAG Lab Results Component Value Date NA 134 (L) 06/20/2025 K 3.9 06/20/2025 CL 101 06/20/2025 CO2 25 06/20/2025 BUN 13 06/20/2025 CREATININE 0.76 06/20/2025 GLUCOSE 146 (H) 06/20/2025 CALCIUM 9.0 06/20/2025 Lab Results Component Value Date CHOL 295 (H) 06/15/2025 Lab Results Component Value Date TRIG 129 06/15/2025 Lab Results Component Value Date HDL 79 06/15/2025 Lab Results Component Value Date LDLCALC 190 (H) 06/15/2025 No results found for: VLDL Lab Results Component Value Date CHOLHDLRATIO 4 06/15/2025 No results found for: [id number] Lab Results Component Value Date TSH 2.71 06/14/2025 Radiology reportsas per the (more content not included)... Normal [facility] Progress Note OCCUPATIONAL THERAPY [facility] Treatment Note Name/MRN: Richie Armas ([id number]) Date of : 1950 Age: 75 y.o. Room/Bed: T1-101/T1-101 A Discharge Recommendation: Home with assist PRN, Home with Home health OT Equipment Needed: Yes Mobility Devices: ADL Assistive Devices ADL Assistive Devices: Shower Chair with back Prior Level of Function Prior Level of ADL Function: Independent Prior Level of Mobility: Independent; Device: None Prior Level of Transfers: Independent Assessment Pt was alert and oriented x4. She was feeling very nauseated today, nurse was bringing medication for that. Followed sternal precautions without cueing today. Pt is showing progress with therapy goals such as transfers and balance. Pt would benefit from continued OT services to increase ind with ADLs, fxl mobility and transfers. Recommending home with OT and assist as needed. Subjective Pt was agreeable to OT services. Pain: 0-10 pain scale: 5/10 Location: chest Medical Precautions: No active isolations Proper PPE donned/doffed in accordance with facility standards. Fall Risk: Sal Fall Risk Score: 45 (High Risk) Precautions/Restriction s: Sternal Precautions: No lifting greater than 10 lbs. Ok for modified UE precautions using Keep Your Move in the Tube technique Family/Caregiver Present: none Objective ADLs Toileting: Min Assist, to A c/ lines and to monitor balance and SOB. Grooming: Min Assist, to A c/ line and monitor balance c/ fww. Washed hands and brushed hair standing at sink. Transfers/Mobility Sit to stand: Supervision Stand to sit: Supervision Stand step: Supervision Toilet: Min Assist, to A c/ lines c/ fww. Functional mobility: Min Assist, to manage lines c/ fww and v/c to keep hips in fww. Device(s) used: Front wheeled walker Plan Continue acute OT per plan of care. Safety/Education Safety Safety Devices in place: All fall risk precautions in place, call light within reach, left in chair, gait belt, patient at risk for falls, nurse notified, and no alarms engaged upon entry Restraints: No Education Education Given To: patient Education Provided: OT Role, Plan of Care, Precautions, ADL Adaptive Strategies, Transfer Training, Energy Conservation, Equipment, Discharge Recommendations, and Benefits of Increasing Activity Education Method: Verbal Barriers to Learning: None Education Outcome: Verbalized Understanding AM-PAC AM-PAC Inpatient Daily Activity Raw Score: 21 ADL Inpatient [facility] G-Code Modifier: CJ Goals Patient Stated Goal: go home Encounter Problems Encounter Problems (Active) Balance Patient will maintain dynamic standing balance for 5 minutes with supervision in order to demonstrate decreased risk of falling. (Initiated) Start: 06/19/25 Expected End: 07/17/25 Dressing Upper Extremities Patient will complete upper body dressing with Mod I. (Not Addressed) Start: 06/19/25 Expected End: 07/17/25 Dressings Lower Extremities Patient will dress lower body with Mod I. (Not Addressed) Start: 06/19/25 Expected End: 07/17/25 Grooming Patient will complete daily grooming tasks standing with Mod I. (Initiated) Start: 06/19/25 Expected End: 07/17/25 Safety Patient will recall/demonstrate sternal precautions with all functional mobility in order to promote healing and safety with functional tasks. (Initiated) Start: 06/19/25 Expected End: 07/17/25 Transfers Patient will complete functional transfer with least restrictive device with modified independence in order to prepare for ambulation. (Initiated) Start: 06/19/25 Expected End: 07/17/25 Patient will perform bed mobility with modified independence in order to improve independence and prepare for out of bed mobility. (Not Addressed) Start: 06/19/25 Expected End: 07/17/25 Therapy Time Individual Co-treatment Time In 804 Time Out 0830 Minutes 25 Timed Code Treatment Minutes: 23 Minutes Variance: 2 (item retrieval) 1 FA, 1 Self JJ Decker Normal [facility] Progress Note [facility] Interventional Cardiology NAME: Richie Armas DATE OF : 1950 CHIEF COMPLAINT NSTEMI ASSESSMENT AND PLAN NSTEMI MD CAD s/p CABG x 3 Patient is stable without angina, doing well at this time. Will continue GDMT: lifelong aspirin, and high intensity statin. Recommend low dose BB and Plavix for NSTEMI when stable. Continue phase 1 cardiac rehab and IS. Reinforced protein intake. Lifestyle modification including: a heart-healthy diet (low in fat and cholesterol). Plan for phase 2 cardiac rehab with exercise for 30 minutes a day 3 or more days a week once cleared by CTS. Weight loss. Avoid caffeine, alcohol and tobacco products. Reduce stress. Hyperlipidemia Last LDL 190 above recommended goal of <55 mg/dL per ESC guidelines. Last LFTs were stable. Continue high intensity rosuvastatin. Follow heart healthy diet (low in fat and cholesterol). Blood loss anemia S/p 1 unit RBCs. H&H stable. Prediabetes Last HgbA1c was 5.8%, well controlled, goal <7.5%. Continue current therapy. Follow ADA diet. See addendum for further recommendations. SUBJECTIVE Richie Armas is an 75 y.o. female presents from [facility] on 06/14/25 with past medical history significant for CKD stage II, Raynaud's, fibromyalgia, chronic back pain s/p lumbar spinal surgery, hypothyroidism, GERD, IBS and anxiety and depression. When patient presented to the hospital she reported increase chest pain during her daily walks for about 1 week. She initially thought it may be 2/2 GERD but became concerned when CP did not resolve with rest. She was found to be NSTEMI. Her LHC at [facility] showed MVCAD. She was transferred to [facility] for CABG evaluation. She had a normal TTE with EF 50% on 06/15. She underwent CABG x [address] Hinson 06/18. Today POD 2. CXR stable. BMP stable. H&H remains low. VS are stable. 1 L output, [address] She was weaned off of pressors yesterday. She is resting in bed. She has rib pain at CT site. She gets AGUILA with walking. Some swelling. She having some small BM. Appetite is fair. Sleeping poorly. She had nausea today, tolerating fluids. No PND, orthopnea, palpitations, or CP. Allergies[1] Medical History[2] OBJECTIVE Vitals: 06/20/25 0900 06/20/25 0923 06/20/25 1000 06/20/25 1100 BP: 156/68 156/68 125/62 122/64 BP Location: Patient Position: Pulse: 72 (!) 148 73 71 Resp: Temp: TempSrc: SpO2: Weight: Height: Intake/Output Summary (Last 24 hours) at 06/20/2025 1117 Last data filed at 06/20/2025 1018 Gross per 24 hour Intake 4611.47 ml Output 905 ml Net 3706.47 ml MEDICATIONS Scheduled Meds[3] INFUSION MEDICATIONS Continuous Meds[4] Physical Exam Constitutional: General: She is not in acute distress. Appearance: Normal appearance. Neck: Vascular: No JVD. Cardiovascular: Rate and Rhythm: Normal rate. Rhythm irregular. Pulses: Normal pulses. Heart sounds: Normal heart sounds. No murmur heard. Pulmonary: Effort: Pulmonary effort is normal. Breath sounds: Examination of the right-lower field reveals decreased breath sounds. Examination of the left-lower field reveals decreased breath sounds. Decreased breath sounds present. No rales. Chest: Comments: Mid sternal incision dry and well approximated CT in place Genitourinary: Comments: Urinary catheter in place Skin: General: Skin is warm and dry. Neurological: Mental Status: She is alert and oriented to person, place, and time. Psychiatric: Mood and Affect: Mood normal. Speech: Speech normal. LAB VALUES AND TESTING REVIEWED Lab Results Component Value Date NA 134 (L) 06/20/2025 K 3.9 06/20/2025 CL 101 06/20/2025 CO2 25 06/20/2025 BUN 13 06/20/2025 CREATININE 0.76 06/20/2025 GLUCOSE 146 (H) 06/20/2025 CALCIUM 9.0 06/20/2025 MG 2.0 06/20/2025 PHOS 3.3 06/18/2025 Lab Results Component Value Date ALT 7 06/18/2025 AST 31 06/18/2025 ALKPHOS 52 06/18/2025 BILITOT 0.3 06/18/2025 Lab Results Component Value Date WBC 7.6 06/20/2025 HGB 8.8 (L) 06/20/2025 HCT 27.1 (L) 06/20/2025 MCV 94.8 06/20/2025 PLT 112 (L) 06/20/2025 Lab Results Component Value Date CHOL 295 (H) 06/15/2025 Lab Results Component Value Date HDL 79 06/15/2025 Lab Results Component Value Date TRIG 129 06/15/2025 Lab Results Component Value Date LDLCALC 190 (H) 06/15/2025 Lab Results Component Value Date TSH 2.71 06/14/2025 Lab Results Component Value Date HGBA1C 5.8 (H) 06/16/2025 CARDIAC TESTS TELEMETRY FINDINGS: NSR with ventricular rate 60-70 bpm with PACs EKG: Encounter Date: 06/14/25 ECG 12 lead Result Value Heart Rate 67 QRSD Interval 100 QT Interval 407 QTC Interval 430 P Babylon 48 QRS Babylon 61 T Wave Babylon 0 OH Interval 150 Impression Sinus rhythm Tracing reviewed ECHOCARDIOGRAM: 06/14/25 TRANSTHORACIC ECHOCARDIOGRAM (TTE) COMPLETE (CONTRAST/BUBBLE/3D PRN) 0 (more content not included)... Normal [facility] XR CHEST 1 VIEWon 06-20-2025 XR CHEST 1 VIEW [facility] 1950 [id number] Exam Date/Time: 06/20/2025 05:16 Procedure: XR CHEST 1 VIEW Ordering Provider: VEGA KYLE Reason For Exam: Shortness of breath AP CHEST X-RAY CLINICAL INDICATION: Shortness of breath TECHNIQUE: AP portable x-ray of the chest. COMPARISON: June 19, 2025 FINDINGS: The study is limited due to patient rotation. Midline sternotomy wires and mediastinal surgical clips are noted. Lines/Tubes: Right-sided Elberta-Olivia catheter has been exchanged for a right IJ sheath. Chest tube overlies the base of the left hemithorax. Heart/Mediastinum: Within normal limits Lungs: Platelike atelectasis is noted in the right midlung.. Atelectasis is noted of the left lung base. There is interposition of bowel loops underneath the left hemidiaphragm Bones: Unremarkable IMPRESSION: Atelectasis in the right midlung and left lung base. Report Dictated on Electronically Signed By: Ladarius Luciano MD Electronically Signed Date/Time: 06/20/2025 8:01 AM EDT Normal [facility] XR Chest Single viewon 06-20 [facility] Radiology Study observation (narrative) [facility] [id number] 06-19-2025 [id number] Patient Choice Patient Name: RICHIE ARMAS Date of : 1950 All Providers Sent Referral Name: [facility] Phone: [phone] Address: [address] [place] [address] Normal [facility] BASIC METABOLIC PANELon 05-23 Anion gap [Moles/Vol] 10 mmol/L Normal 3-13 [facility] Comment on above: Performed By: #### L AB103, LAB15 ####Desktop Support Manager: MIGUEL LEAL ([phone])[facility] ([facility])[address] [place] [address] Calcium [Mass/Vol] 8.2 mg/dL Low 8.8-10.0 [facility] Comment on above: Performed By: #### L AB103, LAB15 ####Desktop Support Manager: MIGUEL LEAL ([phone])[facility] ([facility])[address] [place] [address] [place] Chloride [Moles/Vol] 109 mmol/L High 98-107 [facility] Comment on above: Performed By: #### L AB103, LAB15 ####Desktop Support Manager: MIGUEL LEAL ([phone])[facility] ([facility])[address] [place] [address] [place] CO2 [Moles/Vol] 20 mmol/L Low 23-31 [facility] Comment on above: Performed By: #### L AB103, LAB15 ####Desktop Support Manager: MIGUEL LEAL ([phone])[facility])[address] [place] [address] Creatinine [Mass/Vol] 0.68 mg/dL Normal 0.57-1.11 [facility] Comment on above: Performed By: #### L AB103, LAB15 ####Desktop Support Manager: MIGUEL LEAL ([phone])[facility])[address] [place] [address] GLOMERULAR FILTRATION RATE ML/MIN/1.73 SQ M.PREDICTED >90.0 Normal >60.0 [facility] Comment on above: Result Comment: Calc ulation based on the Chronic Kidney Disease Epidemiology Collaboration (CKD-EPI) equation refit without adjustment for race Performed By: #### L AB103, LAB15 ####Desktop Support Manager: MIGUEL LEAL ([phone])[facility])[address] [place] [address] Glucose [Mass/Vol] 116 mg/dL High 82-115 [facility] Comment on above: Performed By: #### L AB103, LAB15 ####Desktop Support Manager: MIGUEL LEAL ([phone])[address] Potassium [Moles/Vol] 4.1 mmol/L Normal 3.5-5.1 [facility] Comment on above: Result Comment: [facility] potassium values may be up to 0.5 mmol/L lower than serum values. Performed By: #### L AB103, LAB15 ####Desktop Support Manager: MIGUEL LEAL ([phone])[facility])[address] [place] [address] Sodium [Moles/Vol] 139 mmol/L Normal 136-145 [facility] Comment on above: Performed By: #### L AB103, LAB15 ####Desktop Support Manager: MIGUEL LEAL ([phone])[facility])[address] [place] [address] [place] Urea nitrogen [Mass/Vol] 10 mg/dL Normal 9-23 [facility] Comment on above: Performed By: #### L AB103, LAB15 ####Desktop Support Manager: MIGUEL LEAL ([phone])[facility])[address] [place] [address] BLOOD GAS ARTERIALon 30-2 025 AMOUNT OF OXYGEN 40 Normal [facility] Comment on above: Performed By: #### L AB76 ####Desktop Support Manager: MIGUEL LEAL ([phone])[facility] ([facility])[address] [place] [address] Base excess Calc (Bld) [Moles/Vol] 2.0 mmol/L Normal -3.0-3.0 [facility] Comment on above: Performed By: #### L AB76 ####Desktop Support Manager: MIGUEL LEAL ([phone])[facility] ([facility])[address] [place] [address] CO2 [Moles/Vol] 28.4 mmol/L High 23.0-27.0 [facility] Comment on above: Performed By: #### L AB76 ####Desktop Support Manager: MIGUEL LEAL ([phone])[facility])[address] [place] [address] HCO3 (Bld) [Moles/Vol] 27.0 mmol/L High 21.0-25.0 S [facility] Comment on above: Performed By: #### L AB76 ####Desktop Support Manager: MIGUEL LEAL ([phone])[facility] ([facility])[address] [place] [address] Hemoglobin (Bld) [Mass/Vol] 9.9 g/dL Normal Screen only [facility] Comment on above: Performed By: #### L AB76 ####Desktop Support Manager: MIGUEL LEAL ([phone])[facility])[address] [place] [address] OXYGEN SATURATION (%) IN ARTERIAL BLOOD 98.9 % Normal 95.0-100.0 [facility] Comment on above: Performed By: #### L AB76 ####Desktop Support Manager: MIGUEL LEAL ([phone])[facility] ([facility])[address] [place] [address] PCO2 ARTERIAL 44.1 mm Hg Normal >35.0-<45.0 [facility] Comment on above: Performed By: #### L AB76 ####Desktop Support Manager: MIGUEL LEAL ([phone])[facility] ([facility])[address] [place] [address] PH ARTERIAL 7.405 Normal 7.350-7.450 [facility] Comment on above: Performed By: #### L AB76 ####Desktop Support Manager: MIGUEL LEAL ([phone])[facility])[address] [place] [address] PO2 ARTERIAL 147.2 mm Hg High 80.0-100.0 [facility] Comment on above: Performed By: #### L AB76 ####Desktop Support Manager: MIGUEL LEAL ([phone])[facility] ([facility])[address] [place] [address] SOURCE OF OXYGEN Non-Invasive Ventilator Normal [facility] Comment on above: Performed By: #### L AB76 ####Desktop Support Manager: MIGUEL LEAL ([phone])[facility])[address] [place] [address] AMOUNT OF OXYGEN 40% Normal [facility] Comment on above: Performed By: #### L AB76 ####Desktop Support Manager: MIGUEL LEAL ([phone])[facility] ([facility])[address] [place] [address] Base excess Calc (Bld) [Moles/Vol] 1.4 mmol/L Normal -3.0-3.0 [facility] Comment on above: Performed By: #### L AB76 ####Desktop Support Manager: MIGUEL LEAL ([phone])[facility] ([facility])[address] [place] [address] [place] CO2 [Moles/Vol] 28.4 mmol/L High 23.0-27.0 [facility] Comment on above: Performed By: #### L AB76 ####Desktop Support Manager: MIGUEL LEAL ([phone])[facility])[address] [place] [address] HCO3 (Bld) [Moles/Vol] 27.0 mmol/L High 21.0-25.0 S [facility] Comment on above: Performed By: #### L AB76 ####Desktop Support Manager: MIGUEL LEAL ([phone])[facility] ([facility])[address] [place] [address] Hemoglobin (Bld) [Mass/Vol] 9.0 g/dL Normal Screen only [facility] Comment on above: Performed By: #### L AB76 ####Desktop Support Manager: MIGUEL LEAL ([phone])[facility])[address] [place] [address] OXYGEN SATURATION (%) IN ARTERIAL BLOOD 97.8 % Normal 95.0-100.0 [facility] Comment on above: Performed By: #### L AB76 ####Desktop Support Manager: MIGUEL LEAL ([phone])[facility])[address] [place] [address] PCO2 ARTERIAL 47.5 mm Hg High >35.0-<45.0 [facility] [facility] Comment on above: Performed By: #### L [id number] ####Desktop Support Manager: MIGUEL LEAL ([phone])[facility] ([facility])[address] [place] [address] PH ARTERIAL 7.372 Normal 7.350-7.450 [facility] Comment on above: Performed By: #### L [id number] ####Desktop Support Manager: MIGUEL LEAL ([phone])[facility] ([facility])[address] [place] [address] PO2 ARTERIAL 109.4 mm Hg High 80.0-100.0 [facility] Comment on above: Performed By: #### L [id number] ####Desktop Support Manager: MIGUEL LEAL ([phone])[facility] ([facility])[address] [place] [address] SOURCE OF OXYGEN Non-Invasive Ventilator Normal [facility] Comment on above: Performed By: #### L [id number] ####Desktop Support Manager: MIGUEL LEAL ([phone])[facility] ([facility])[address] [place] [address] AMOUNT OF OXYGEN 40% Normal [facility] Comment on above: Order Comment: 30 mi n after vent changes Performed By: #### L [id number] ####Desktop Support Manager: MIGUEL LEAL ([phone])[facility] ([facility])[address] [place] [address] Base excess Calc (Bld) [Moles/Vol] -2.0000 mmol/L Normal -3.0-3.0 [facility] Comment on above: Order Comment: 30 mi n after vent changes Performed By: #### L [id number] ####Desktop Support Manager: MIGUEL LEAL ([phone])[facility] ([facility])[address] [place] [address] CO2 [Moles/Vol] 26.6 mmol/L Normal 23.0-27.0 [facility] Comment on above: Order Comment: 30 mi n after vent changes Performed By: #### L [id number] ####Desktop Support Manager: MIGUEL LEAL ([phone])[facility] ([facility])[address] [place] [address] HCO3 (Bld) [Moles/Vol] 24.9 mmol/L Normal 21.0-25.0 [facility] Comment on above: Order Comment: 30 mi n after vent changes Performed By: #### L AB76 ####Desktop Support Manager: MIGUEL LEAL ([phone])[facility] ([facility])[address] [place] [address] Hemoglobin (Bld) [Mass/Vol] 8.8 g/dL Normal Screen only [facility] Comment on above: Order Comment: 30 mi n after vent changes Performed By: #### L [id number] ####Desktop Support Manager: MIGUEL LEAL ([phone])[facility] ([facility])[address] [place] [address] OXYGEN SATURATION (%) IN ARTERIAL BLOOD 97.8 % Normal 95.0-100.0 [facility] Comment on above: Order Comment: 30 mi n after vent changes Performed By: #### L [id number] ####Desktop Support Manager: MIGUEL LEAL ([phone])[facility] ([facility])[address] [place] [address] PCO2 ARTERIAL 54.0 mm Hg High >35.0-<45.0 [facility] Comment on above: Order Comment: 30 mi n after vent changes Performed By: #### L [id number] ####Desktop Support Manager: MIGUEL LEAL ([phone])[facility] ([facility])[address] [place] [address] PH ARTERIAL 7.282 Low 7.350-7.450 [facility] Comment on above: Order Comment: 30 mi n after vent changes Performed By: #### L [id number] ####Desktop Support Manager: MIGUEL LEAL ([phone])[facility] ([facility])[address] [place] [address] PO2 ARTERIAL 122.3 mm Hg High 80.0-100.0 [facility] Comment on above: Order Comment: 30 mi n after vent changes Performed By: #### L AB76 ####Desktop Support Manager: MIGUEL LEAL ([phone])[facility] ([facility])[address] [place] [address] SOURCE OF OXYGEN Non-Invasive Ventilator Normal [facility] Comment on above: Order Comment: 30 mi n after vent changes Performed By: #### L [id number] ####Desktop Support Manager: MIGUEL LEAL ([phone])[facility] ([facility])[address] [place] [address] AMOUNT OF OXYGEN 40% Normal [facility] Comment on above: Order Comment: 30 mi n after vent changes Performed By: #### L AB76 ####Desktop Support Manager: MIGUEL LEAL ([phone])[facility] ([facility])[address] [place] [address] Base excess Calc (Bld) [Moles/Vol] -1.2000 mmol/L Normal -3.0-3.0 [facility] Comment on above: Order Comment: 30 mi n after vent changes Performed By: #### L AB76 ####Desktop Support Manager: MIGUEL LEAL ([phone])[facility] ([facility])[address] [place] [address] CO2 [Moles/Vol] 27.9 mmol/L High 23.0-27.0 [facility] Comment on above: Order Comment: 30 mi n after vent changes Performed By: #### L AB76 ####Desktop Support Manager: MIGUEL LEAL ([phone])[facility] [place] [address] HCO3 (Bld) [Moles/Vol] 26.2 mmol/L High 21.0-25.0 [facility] Comment on above: Order Comment: 30 mi n after vent changes Performed By: #### L AB76 ####Desktop Support Manager: MIGUEL LEAL ([phone])[facility] [place] [address] Hemoglobin (Bld) [Mass/Vol] 9.1 g/dL Normal Screen only [facility] Comment on above: Order Comment: 30 mi n after vent changes Performed By: #### L AB76 ####Desktop Support Manager: MIGUEL LEAL ([phone])[facility] [place] [address] OXYGEN SATURATION (%) IN ARTERIAL BLOOD 97.1 % Normal 95.0-100.0 [facility] Comment on above: Order Comment: 30 mi n after vent changes Performed By: #### L [id number] ####Desktop Support Manager: MIGUEL LEAL ([phone])[facility])[address] [place] [address] PCO2 ARTERIAL 58.4 mm Hg High >35.0-<45.0 [facility] Comment on above: Order Comment: 30 mi n after vent changes Performed By: #### L AB76 ####Desktop Support Manager: MIGUEL LEAL ([phone])[facility] ([facility])[address] [place] [address] PH ARTERIAL 7.269 Low 7.350-7.450 [facility] Comment on above: Order Comment: 30 mi n after vent changes Performed By: #### L AB76 ####Desktop Support Manager: MIGUEL LEAL ([phone])[facility])[address] [place] [address] PO2 ARTERIAL 112.9 mm Hg High 80.0-100.0 [facility] Comment on above: Order Comment: 30 mi n after vent changes Performed By: #### L AB76 ####Desktop Support Manager: MIGUEL LEAL ([phone])[facility] ([facility])[address] [place] [address] SOURCE OF OXYGEN Non-Invasive Ventilator Normal [facility] Comment on above: Order Comment: 30 mi n after vent changes Performed By: #### L [id number] ####Desktop Support Manager: MIGUEL LEAL ([phone])[facility])[address] [place] [address] Basic metabolic 1998 panelOr dered By: Andie Vera on 06-19-2025 Anion gap [Moles/Vol] 10 mmol/L 3 - 13 mmol/L [facility] Calcium [Mass/Vol] 8.2 mg/dL Low 8.8 - 10. 0 mg/dL [facility] Chloride [Moles/Vol] 109 mmol/L High 98 - 10 7 mmol/L [facility] CO2 [Moles/Vol] 20 mmol/L Low 23 - 31 mmol/L [facility] Creatinine [Mass/Vol] 0.68 mg/dL 0.57 - 1.11 mg/dL [facility] GFR/1.73 sq M.predicted (S/P/Bld) [Vol rate/Area] - PINF [facility] Glucose [Mass/Vol] 116 mg/dL High 82 - 115 mg/dL [facility] Potassium [Moles/Vol] 4.1 mmol/L 3.5 - 5.1 mmol/L [facility] Sodium [Moles/Vol] 139 mmol/L 136 - 145 mmol/L [facility] Urea nitrogen [Mass/Vol] 10 mg/dL 9 - 23 mg/dL [facility] CALCIUM, IONIZEDon CALCIUM IONIZED 4.10 mg/dL Low 4.30-5.20 [facility] Comment on above: Order Comment: Obtai n PRN and check ionized Ca level if serum Ca level less than 8.0 Performed By: #### L AB54 ####Desktop Support Manager: MIGUEL LEAL ([phone])[facility] ([facility])[address] [place] [address] PH, IONIZED CALCIUM 7.39 Normal 7.31-7.46 [facility] Comment on above: Order Comment: Obtai n PRN and check ionized Ca level if serum Ca level less than 8.0 Performed By: #### L AB54 ####Desktop Support Manager: MIGUEL LEAL ([phone])[facility] ([facility])[address] [place] [address] CBC (HEMOGRAM)on 06-19-2025 Erythrocyte distribution width (RBC) [Ratio] 15.7 % High 11.5-15.0 [facility] Comment on above: Performed By: #### L [id number] ####Desktop Support Manager: MIGUEL LEAL ([phone])[facility] ([facility])[address] [place] [address] Hematocrit (Bld) [Volume fraction] 26.7 % Low 35.0-47.0 [facility] Comment on above: Performed By: #### L [id number] ####Desktop Support Manager: MIGUEL LEAL ([phone])[facility] ([facility])[address] [place] [address] Hemoglobin (Bld) [Mass/Vol] 8.8 g/dL Low 11.7-16.0 [facility] Comment on above: Performed By: #### L [id number] ####Desktop Support Manager: MIGUEL LEAL ([phone])[facility])[address] [place] [address] IPF 6 Normal [facility] Comment on above: Performed By: #### L [id number] ####Desktop Support Manager: MIGUEL LEAL ([phone])[facility] [place] [address] MCH (RBC) [Entitic mass] 31.4 pg Normal 26.0-34.0 [facility] Comment on above: Performed By: #### L [id number] ####Desktop Support Manager: MIGUEL LEAL ([phone])[facility] ([facility])[address] [place] [address] MCHC 33.0 % Normal 30.5-36.0 [facility] Comment on above: Performed By: #### L AB294 ####Desktop Support Manager: MIGUEL LEAL ([phone])[facility] ([facility])[address] [place] [address] MCV (RBC) [Entitic vol] 95.4 fL Normal 77.0-99.0 [facility] Comment on above: Performed By: #### L [id number] ####Desktop Support Manager: MIGUEL LEAL ([phone])[facility] ([facility])[address] [place] [address] Platelet mean volume (Bld) [Entitic vol] 10.8 fL Normal 9.0-12.7 [facility] Comment on above: Performed By: #### L [id number] ####Desktop Support Manager: MIGUEL LEAL ([phone])[facility] ([facility])[address] [place] [address] Platelets (Bld) [#/Vol] 110 10*3/uL Low 140-440 [facility] Comment on above: Performed By: #### L [id number] ####Desktop Support Manager: MIGUEL LEAL ([phone])[facility] ([facility])[address] [place] [address] [place] RBC (Bld) [#/Vol] 2.80 10*6/uL Low 3.80-5.20 [facility] Comment on above: Performed By: #### L [id number] ####Desktop Support Manager: MIGUEL LEAL ([phone])[facility] ([facility])[address] [place] [address] [place] WBC (Bld) [#/Vol] 7.8 10*3/uL Normal 3.6-10.7 [facility] Comment on above: Performed By: #### L [id number] ####Desktop Support Manager: MIGUEL LEAL ([phone])[facility] ([facility])[address] [place] [address] CBC panel Auto (Bld)on 06-19 Erythrocyte distribution width (RBC) [Ratio] 15.7 % High 11.5 - 15.0 % [facility] Hematocrit (Bld) [Volume fraction] 26.7 % Low 35.0 - 47.0 % [facility] Hemoglobin (Bld) [Mass/Vol] 8.8 g/dL Low 11.7 - 16.0 g/dL [facility] Interpretation and review of laboratory results Abnormal [facility] IPF 6 [facility] MCH (RBC) [Entitic mass] 31.4 pg 26.0 - 34.0 pg [facility] MCHC (RBC) [Mass/Vol] 33 % 30.5 - 36.0 % [facility] MCV (RBC) [Entitic vol] 95.4 fL 77.0 - 99.0 fL [facility] Platelet mean volume (Bld) [Entitic vol] 10.8 fL 9.0 - 12.7 fL [facility] Platelets (Bld) [#/Vol] 110 10*3/uL Low 140 - 440 10*3/uL [facility] RBC (Bld) [#/Vol] 2.8 10*6/uL Low 3.80 - 5.2 0 10*6/uL [facility] WBC (Bld) [#/Vol] 7.8 10*3/uL 3.6 - 10.7 10*3/uL [facility] Calcium.ionized [Moles/Vol]o n 06-19-2025 Calcium.ionized (Bld) [Moles/Vol] 4.1 mg/dL Low 4.30 - 5.20 mg/dL [facility] PH, IONIZED CALCIUM 7.39 7.31 - 7.46 [facility] Consulton 06-19-2025 Consult Department of Vehicle Detailer al Medicine Division of Endocrinology, Diabetes, & Metabolism Endocrinology Note Patient Name: Richie Armas : 1950 AGE: 75 y.o. Room[facility]Bed: [facility] A Admission Date: 06/14/2025 Visit Date: 06/19/2025 Reason for Endocrine Consult: post heart Provider/Team Requesting Consult: cts PCP: PRAVEEN CRUM Outpt Plodder Operator: No ASSESSMENT: Stress hyperglycemia Steroid induced hyperglycemia Prediabetes Hypothyroidism CABGx3 HLD CKD PLAN: Will plan to stop insulin drip Start Humalog low sliding scale only Resume patient home levothyroxine dose ICU goal <180 GMF goal <150 POCT BG ACHS Hypoglycemia management per protocol Carb controlled diet ANTICIPATED ENDOCRINE HOME GOING RECOMMENDATIONS: Optimized for Discharge from Endocrine standpoint: No Home Going Endocrine Rx Recommendations-- None Resume home levothyroxine dose Outpt Follow Up-- PCP SUBJECTIVE/HPI: CHIEF COMPLAINT: No chief complaint on file. S/p cabgx3 History of prediabetes Reports history of hypothyroidism on levothyroxine 50 mcg po daily per patient, managed by PCP, tsh 2.71 BGL below Stable on insulin drip 0.5/hr-will plan to transition off She is awake alert extubated up in chair currently Vitals are stable on O2 nasal cannula Chest tubes are in place Discussed prediabetes Patient not on any diabetes medications Did confirm her hypothyroidism history on levothyroxine at home follows PCP for this last labs were normal So far is only had water and richy jason will be on a full liquid diet today No current nausea vomiting noted Spoke with nursing Type of DM: Prediabetes Onset of DM: N/A Home DM Medication Regimen: N/A DM control (last A1c/glucose data): Lab Results Component Value Date HGBA1C 5.8 (H) 06/16/2025 Glucose Date/Time Value Ref Range Status 06/19/2025 04:54 AM 127 (H) 70 - 100 mg/dL Final 06/19/2025 03:04 AM 127 (H) 70 - 100 mg/dL Final 06/19/2025 01:11 AM 121 (H) 70 - 100 mg/dL Final 06/19/2025 12:18 AM 117 (H) 70 - 100 mg/dL Final 06/18/2025 11:07 PM 115 (H) 70 - 100 mg/dL Final 06/18/2025 10:07 PM 116 (H) 70 - 100 mg/dL Final Review of Systems All other systems reviewed and are negative. ROS negative except for those mentioned in HPI. OBJECTIVE: Vitals: 06/19/25 0630 06/19/25 0645 06/19/25 0800 06/19/25 0816 BP: Pulse: 71 71 71 Resp: Temp: TempSrc: SpO2: 99% 99% 98% Weight: Height: 5' 3 (1.6 m) Physical Exam Vitals and nursing note reviewed. Constitutional: General: She is not in acute distress. Appearance: She is ill-appearing. She is not toxic-appearing. Interventions: Nasal cannula in place. HENT: Head: Normocephalic. Mouth/Throat: Mouth: Mucous membranes are moist. Cardiovascular: Rate and Rhythm: Normal rate. Pulmonary: Effort: Pulmonary effort is normal. Abdominal: Tenderness: There is no guarding. Musculoskeletal: Cervical back: Normal range of motion. Skin: General: Skin is warm and dry. Coloration: Skin is pale. Comments: Intact incision Neurological: Mental Status: She is alert and oriented to person, place, and time. Psychiatric: Mood and Affect: Mood normal. 24 hour intake/output: Intake/Output Summary (Last 24 hours) at 06/19/2025 0854 Last data filed at 06/19/2025 0712 Gross per 24 hour Intake 3532.53 ml Output 3359 ml Net 173.53 ml Diet: NPO diet Medications (as per EMR): HomeMeds: Current Outpatient Medications Medication Instructions lubiprostone (AMITIZA) 24 mcg, 2 times daily with meals Scheduled Meds:Scheduled Meds[1] Continuous Infusions:Continuous Meds[2] PRN Meds:PRN Meds[3] Diagnostic Workup: I reviewed pertinent Laboratory results, Radiographic results, and Other Clinical Notes at the time of today's encounter. Labs: No components found for: LABA1C No components found for: EAG Lab Results Component Value Date NA 139 06/19/2025 K 4.1 06/19/2025 CL 109 (H) 06/19/2025 CO2 20 (L) 06/19/2025 BUN 10 06/19/2025 CREATININE 0.68 06/19/2025 GLUCOSE 116 (H) 06/19/2025 CALCIUM 8.2 (L) 06/19/2025 Lab Results Component Value Date CHOL 295 (H) 06/15/2025 Lab Results Component Value Date TRIG 129 06/15/2025 Lab Results Component Value Date HDL 79 06/15/2025 Lab Results Component Value Date LDLCALC 190 (H) 06/15/2025 No results found for: VLDL Lab Results Component Value Date CHOLHDLRATIO 4 06/15/2025 No results found for: [id number] Lab Results Component Value Date TSH 2.71 06/14/2025 Radiology reportsas per the Radiologist Radiology: ECG 12 lead Result Date: 06/16/2025 Sinus rhythm Probable left atrial enlargement Right axis deviation Low voltage, precordial leads Nonspecific T abnrm, anterolateral leads Electronically Signed On 06-16-2025 09:44:30 EDT by Selvin Lynch Transthoracic echocardiogram (TTE) complete with contrast, bubble, strain, and (more content not included)... Normal [facility] ECG 12-LEADon 06-19-2025 ECG 12-LEAD IMPRESSION: Sinus rhythm ABNORMAL T, CONSIDER ISCHEMIA, ANTERIOR LEADS Electronically Signed On 06-19-2025 10:23:20 EDT by Aftab Leiva [facility] ECG 12-LEAD IMPRESSION: Sinus bradycardia Right bundle branch block REPOL ABNRM SUGGESTS ISCHEMIA, DIFFUSE LEADS Electronically Signed On 06-19-2025 10:10:41 EDT by Aftab Leiva [facility] Laboratory - Chemistry and C hemistry - challengeon 06-19-2025 Glucose [Mass/Vol] 172 mg/dL High 70 - 100 mg/dL [facility] Glucose [Mass/Vol] 130 mg/dL High 70 - 100 mg/dL [facility] Glucose [Mass/Vol] 170 mg/dL High 70 - 100 mg/dL [facility] Glucose [Mass/Vol] 127 mg/dL High 70 - 100 mg/dL [facility] Glucose [Mass/Vol] 135 mg/dL High 70 - 100 mg/dL [facility] Base excess Calc (Bld) [Moles/Vol] 1.4 mmol/L -3.0 - 3.0 mmol/L [facility] CO2 (Bld) [Partial pressure] 47.5 mm[Hg] High - PINF [facility] CO2 [Moles/Vol] 28.4 mmol/L High 23.0 - 27.0 mmol/L [facility] HCO3 (Bld) [Moles/Vol] 27 mmol/L High 21.0 - 25.0 mmol/L [facility] Oxygen (Bld) [Partial pressure] 109.4 mm[Hg] High [facility] pH (Bld) 7.372 [pH] 7.350 - 7.450 [facility] Glucose [Mass/Vol] 127 mg/dL High 70 - 100 mg/dL [facility] Base excess Calc (Bld) [Moles/Vol] -2 mmol/L -3.0 - 3.0 mmol/L [facility] CO2 (Bld) [Partial pressure] 54 mm[Hg] High - PINF [facility] CO2 [Moles/Vol] 26.6 mmol/L 23.0 - 27.0 mmol/L [facility] HCO3 (Bld) [Moles/Vol] 24.9 mmol/L 21.0 - 25.0 mmol/L [facility] Oxygen (Bld) [Partial pressure] 122.3 mm[Hg] High [facility] pH (Bld) 7.282 [pH] Low 7.350 - 7.450 [facility] Glucose [Mass/Vol] 127 mg/dL High 70 - 100 mg/dL [facility] Magnesium [Mass/Vol] 2.3 mg/dL 1.6 - 2 .6 mg/dL [facility] Glucose [Mass/Vol] 121 mg/dL High 70 - 100 mg/dL [facility] Glucose [Mass/Vol] 117 mg/dL High 70 - 100 mg/dL [facility] Laboratory - Chemistry and C hemistry - challengeOrdered By: Mer Lee on 06-19-2025 Base excess Calc (Bld) [Moles/Vol] 2 mmol/L -3.0 - 3.0 mmol/L [facility] CO2 (Bld) [Partial pressure] 44.1 mm[Hg] - PINF [facility] CO2 [Moles/Vol] 28.4 mmol/L High 23.0 - 27.0 mmol/L [facility] HCO3 (Bld) [Moles/Vol] 27 mmol/L High 21.0 - 25.0 mmol/L [facility] Oxygen (Bld) [Partial pressure] 147.2 mm[Hg] High [facility] pH (Bld) 7.405 [pH] 7.350 - 7.450 [facility] Laboratory - Chemistry and C hemistry - challengeOrdered By: Estephania White on 06-19-2025 Base excess Calc (Bld) [Moles/Vol] -1.2000 mmol/L -3.0 - 3.0 mmol/L [facility] CO2 (Bld) [Partial pressure] 58.4 mm[Hg] High - PINF [facility] CO2 [Moles/Vol] 27.9 mmol/L High 23.0 - 27.0 mmol/L [facility] HCO3 (Bld) [Moles/Vol] 26.2 mmol/L High 21.0 - 25.0 mmol/L [facility] Oxygen (Bld) [Partial pressure] 112.9 mm[Hg] High [facility] pH (Bld) 7.269 [pH] Low 7.350 - 7.450 [facility] Laboratory - Coagulationon 0 06-19-2025 aPTT Coag (PPP) [Time] 53.7 s High 20.0 - 30.5 s [facility] INR Coag (PPP) [Relative time] 1.1 {INR} 0.9 - 1.1 [facility] PT Coag (Bld) [Time] 11.3 s 9.0 - 1 2.0 s [facility] Laboratory - Hematology and Cell countsOrdered By: Mer Lee on 06-19-2025 Hemoglobin (Bld) [Mass/Vol] 9.9 g/dL 7.0 g/dl [facility] - Hematology and Cell countson 06-19-2025 Hemoglobin (Bld) [Mass/Vol] 9 g/dL 7.0 g/dl [facility] Hemoglobin (Bld) [Mass/Vol] 8.8 g/dL 7.0 g/dl [facility] - Hematology and Cell countsOrdered By: Estephania White on 06-19-2025 Hemoglobin (Bld) [Mass/Vol] 9.1 g/dL 7.0 g/dl [facility] MAGNESIUMon 06-19-2025 Magnesium [Mass/Vol] 2.3 mg/dL Normal 1.6-2.6 [facility] Comment on above: Result Comment: ROCIO Bhandari COMMENTS: Higher values can be expected in females during menses. Performed By: #### L [id number], LAB15 ####Desktop Support Manager: MIGUEL LEAL ([phone])[facility] ([facility])[address] [place] [address] Magnesium [Mass/Vol]on 06-19 Interpretation and review of laboratory results Normal [facility] No Panel Informationon 06-19 Interpretation and review of laboratory results Abnormal [facility] Interpretation and review of laboratory results Abnormal [facility] Interpretation and review of laboratory results Abnormal [facility] P [place] 34 degrees [facility] OH Interval 162 ms [facility] QRS [place] 29 degrees [facility] QRSD Interval 92 ms [facility] QT Interval 390 ms [facility] QTC Interval 445 ms [facility] T Wave [place] 29 degrees [facility] CV EPIPHANY [facility] CV Pending sale to [facility] Interpretation and review of laboratory results Abnormal [facility] Amount Of Oxygen 40% Summ He alth Interpretation and review of laboratory results Abnormal [facility] Source Of Oxygen Non-Invasive Ventilator [facility] Interpretation and review of laboratory results Abnormal [facility] Amount Of Oxygen 40% [facility] Interpretation and review of laboratory results Abnormal [facility] Source Of Oxygen Non-Invasive Ventilator [facility] Interpretation and review of laboratory results Abnormal [facility] Interpretation and review of laboratory results Abnormal [facility] Interpretation and review of laboratory results Abnormal [facility] Interpretation and review of laboratory results Abnormal [facility] Interpretation and review of laboratory results Abnormal [facility] [facility] No Panel InformationOrdered By: Aftab Leiva on 06-19-2025 P [place] 75 degrees [facility] Work Phone: OH Interval 205 ms [facility] Work Phone: QRS [place] 73 degrees [facility] Work Phone: QRSD Interval 140 ms [facility] Work Phone: QT Interval 508 ms [facility] Work Phone: QTC Interval 497 ms [facility] Work Phone: T Wave [place] -66 degrees [facility] Work Phone: [phone] [facility] Work Phone: [phone] No Panel InformationOrdered By: Mer on 06-19-2025 Amount Of Oxygen 40 [facility] Interpretation and review of laboratory results Abnormal [facility] Source Of Oxygen Non-Invasive Ventilator [facility] No Panel InformationOrdered By: Estephania White on 06-19-2025 Amount Of Oxygen 40% [facility] alth Interpretation and review of laboratory results Abnormal [facility] Source Of Oxygen Non-Invasive Ventilator [facility] PROTIME AND APTTon aPTT Coag (Bld) [Time] 53.7 s High 20.0-30.5 [facility] Comment on above: Performed By: #### L [id number] #### Desktop Support Manager: MIGUEL LEAL ([phone]) [facility] [address] [place] [address] INR Coag (PPP) [Relative time] 1.1 {INR} Normal 0.9-1.1 [facility] Comment on above: Result Comment: Lincoln mmended Anticoagulant Therapy: SEE BELOW ----- INR of 2.0 - 3.0 : - Prophylaxis of Venous Thrombosis (high-risk surgery) - Treatment of Venous Thrombosis - Treatment of Pulmonary Embolism (Includes tissue heart valves, Acute Myocardial Infarction to prevent systemic embolism, Valvular Heart Disease, and Atrial Fibrillation) ----- INR of 2.5 - 3.5 : - Mechanical Prosthetic Valves (high risk) - If oral anticoagulant therapy is used to prevent Myocardial Infarction Performed By: #### L [id number] #### Desktop Support Manager: MIGUEL LEAL ([phone]) [facility] ([facility]) [address] [place] [address] PT Coag (PPP) [Time] 11.3 s Normal 9.0-12.0 [facility] Comment on above: Performed By: #### L [id number] #### Desktop Support Manager: MIGUEL LEAL ([phone]) [facility] ([facility]) [address] [place] [address] Progress Noteon 06-19-2025 Progress Note --- Attestation signed by Latrell Kidd DO at 06/19/2025 4:35 PM I have personally performed a [id number] diagnostic evaluation on this patient on date of service 06/19/25. History, labs, imaging studies, and electronic medical record have been reviewed by me. This note documented by the CRISTIANO reflects my history, exam, and medical decision making. I have reviewed and agree with the care plan. Changes were made in the orders as necessary. ROS documentation was reviewed and negative unless otherwise stated in HPI. Additional pertinent interval history, ROS, and physical exam findings: AdmitDate = 06/14/2025 LOS: 5 ON Event(s): Yes, describe: Chest pain controlled at time of my afternoon eval. 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 NSTEMI Post op pulm mgmt Stress hyperglycemia hypothyroidism Plan: Agree with plan as documented in CRISTIANO Note. Ok w/ RT removing NIV from room. Will trial w/o tonight. Pain mgmt. Bowel regimen. PT/OT. Discussed with: [x]CRISTIANO []Consultants [x]RN []SW/TCC []Patient/Family []Other Disposition: Unchanged. Critical Care Time: 20min Or Noncritical Care Time: n/a Total time caring for this patient including direct patient contact, review of data including imaging and labs, discussions with other team members and physicians, excluding procedures. Cardiothoracic Surgery/CCM Progress Note PATIENT NAME: Richie Armas DATE: 06/19/25 HPI: Richie Armas is a 75 year old female patient with PMHx that includes CKD2, Raynaud's, anxiety/depression, IBS/constipation, GERD, fibromyalgia, hypothyroidism, chronic low back pain S/P lumbar spinal surgery that presented to [facility] on 06/14/2025 from [facility]. Patient reports worsening chest pain associated with daily walks which started approximately 1 week ago. Initially she attributed this to her prior diagnosis of GERD but when she experienced pain 06/14 that did not resolve with rest she presented to [facility]. LHC at [facility] demonstrated severe multivessel disease and she was transferred to [facility] for CABG evaluation. Agreeable to CABG, went to OR on 06/18/25. Surgery/Procedure: 06/18/25: Dr. Johnston- CABG x3, ANTONIO, LEVH Interval History: 06/19/25, POD# 01: Afebrile, NSR on tele, BP requiring low dose pressor support this AM, extubated post-op and on NIV. Sitting up in chair, pain present, denies nausea and abdominal pain though large gastric bubble noted on CXR. Overnight 2 amps bicarb given for acidosis. Was on nitroprusside for a period of time, then on levophed this AM. Current IV Drips: Insulin- 0.5units/hr Levophed- 0.01mcg/kg/min A-line: Arterial Line BP 1: 122/58 Invasive Hemodynamic Monitoring Blood Temperature: 36.8 ?C (98.2 ?F) PAP: 25/17 PAP (Mean): 20 mmHg CVP (mmHg): 11 mmHg CO (L/min): 4.73 L/min CI (L/min/m2): 2.9 L/min/m2 Objective: CT output cc/24hrs: 370 UO cc/24hrs: 2,244 Last BM Date: 06/17/25 Vitals: BP: 115/57, MAP (mmHg): 76, BP Method: Automatic Heart Rate: 74 Resp: 17 Temp: 36.2 ?C (97.2 ?F), Temp Source: Core BMI (Calculated): 24.88 BMP: Recent Labs 06/18/25 0015 06/18/25 1515 06/19/25 0032 NA 133* 137 139 K 4.6 4.4 4.1 CL 102 109* 109* CO2 21* 20* 20* BUN 18 12 10 CREATININE 0.71 0.80 0.68 CALCIUM 8.9 10.6* 8.2* MG 2.1 5.2* 2.3 PHOS -- 3.3 -- CBC: Recent Labs 06/18/25 0015 06/18/25 0015 06/18/25 1515 06/18/25 1933 06/19/25 0032 06/19/25 0033 06/19/25 0309 06/19/25 0453 WBC 5.9 -- 6.5 -- 7.8 -- -- -- HGB 11.5* < > 8.2 7.3* 9.2 8.8* 8.8* 9.1 8.8 9.0 HCT 34.6* -- 22.5* 26.5* 26.7* -- -- -- PLT 190 -- 99* -- 110* -- -- -- MCV 94.3 -- 97.0 -- 95.4 -- -- -- RDW 13.3 -- 13.6 -- 15.7* -- -- -- < > = values in this interval not displayed. INR: Recent Labs 06/18/25151406/19/25 0032 INR 1.4* 1.1 Physical Exam Vitals reviewed. Constitutional: General: She is not in acute distress. Appearance: She is not ill-appearing or diaphoretic. Neck: Comments: Central line and Elberta. Cardiovascular: Rate and Rhythm: Normal rate and regular rhythm. Pulses: Normal pulses. Heart sounds: No murmur heard. Pulmonary: Breath sounds: No wheezing or rales. Comments: On NIV. Abdominal: Palpations: Abdomen is soft. Comments: Chest tubes. Genitourinary: Comments: [place]. Skin: General: Skin is warm and dry. Capillary Refill: Capillary refill takes less than 2 seconds. Findings: Bruising present. Comments: Surgical incis (more content not included)... Normal [facility] Vital signson 07-30-2025 Heart rate 78 /min bpm [facility] Vital signsOrdered By: Aftab Leiva on 06-19-2025 Heart rate 57 /min bpm [facility] Work Phone: XR CHEST 1 VIEWon 06-19-2025 XR CHEST 1 VIEW [facility] 1950 [id number] Exam Date/Time: 06/19/2025 05:10 Procedure: XR CHEST 1 VIEW Ordering Provider: VEGA KYLE Reason For Exam: Shortness of breath AP CHEST X-RAY CLINICAL INDICATION: Shortness of breath TECHNIQUE: AP portable x-ray of the chest. COMPARISON: June 18, 2025 at 1614 hours FINDINGS: Midline sternotomy wires are noted. Lines/Tubes: There is interval removal of nasogastric tube and endotracheal tube. Right IJ approach Elberta-Olivia catheter is noted with distal tip overlying the left main pulmonary artery. Left-sided chest tube overlies the basal left hemithorax. Heart/Mediastinum: Within normal limits Lungs: There is persistent opacity in the left lower lung. Bones: Unremarkable IMPRESSION: Persistent opacity in left lower lung may represent atelectasis. Right IJ approach Elberta-Olivia catheter with distal tip overlying the left main pulmonary artery Report Dictated on Electronically Signed By: Ladarius Luciano MD Electronically Signed Date/Time: 06/19/2025 8:27 AM EDT Normal [facility] XR Chest Single viewon 06-19 [facility] RADIOLOGY [facility] RADIOLOGY [facility] Radiology Study observation (narrative) [facility] alth XR Chest Single viewOrdered By: Ladarius Luciano on 06-19-2025 [employer] Phone: ABO and Rh group Confirm Nom (Bld)on 06-18-2025 ABO group Nom (Bld) A [facility] D Ag Ql (RBC) Positive [facility] APTTon 06-18-2025 aPTT Coag (Bld) [Time] 61.2 s High 20.0-30.5 [facility] Comment on above: Result Comment: ROCIO R COMMENTS: NOTE: The therapeutic time for Heparin anticoagulation, based on Xa activity inhibition, is an APTT of 46-80 seconds. Performed By: #### L [id number] ####Desktop Support Manager: MIGUEL LEAL ([phone])[facility] ([facility])[address] [place] [address] aPTT Coag (Bld) [Time] 49.3 s High 20.0-30.5 [facility] Comment on above: Result Comment: ROCIO Bhandari COMMENTS: NOTE: The therapeutic time for Heparin anticoagulation, based on Xa activity inhibition, is an APTT of 46-80 seconds. Performed By: #### L [id number] ####Desktop Support Manager: MIGUEL LEAL ([phone])[facility] ([facility])[address] [place] [address] Airwayon 06-18-2025 Naresh Motta CRNA 06/18/2025 12:40 PM Airway Date/Time: 06/18/2025 12:06 PM Reason: scheduled Airway not difficult General Information and Staff Patient location during procedure: Procedural Resident/TITLE 1 TUTOR: Naresh Motta CRNA Performed: TITLE 1 TUTOR Patient Condition Indications for airway management: airway protection and anesthesia Patient position: sniffing MILS maintained throughout Sedation level: Asleep Final Airway Details Preoxygenated: yes Final airway type: endotracheal airway Successful airway: ETT Cuffed: yes Successful intubation technique: direct laryngoscopy Adjuncts used in placement: intubating stylet and anterior pressure/BURP Endotracheal tube insertion site: oral Blade: Jordan Blade size: #3 ETT size (mm): 7.0 Cormack-Lehane Classification: grade IIb - view of arytenoids or posterior of glottis only Placement verified by: capnometry Measured from: lips ETT to lips (cm): 21 Number of attempts at approach: 1 [facility] Arterial Lineon 06-18-2025 Naresh Motta CRNA 06/18/2025 12:42 PM Arterial Line: Date/Time: 06/18/2025 12:04 PM An arterial line was placed in the Procedural for the following indication(s): continuous blood pressure monitoring and blood sampling needed. The procedure was performed using ultrasound guidance . A 20 gauge (size), 1 and 3/4 inch (length), Arrow (type) catheter was placed, into the Left radial artery, secured by Tegaderm and tape. Events: patient tolerated procedure well with no complications. Staffing Performed: SRNA [facility] BASIC METABOLIC PANELon 07-2 Anion gap [Moles/Vol] 8 mmol/L Normal 3-13 [facility] Comment on above: Performed By: #### L [id number], [id number], LAB15 ####Desktop Support Manager: MIGUEL LEAL ([phone])[facility] ([facility])[address] [place] [address] Calcium [Mass/Vol] 10.6 mg/dL High 8.8-10.0 [facility] Comment on above: Performed By: #### L AB113, [id number], LAB15 ####Desktop Support Manager: MIGUEL LEAL ([phone])[facility] ([facility])[address] [place] [address] Chloride [Moles/Vol] 109 mmol/L High 98-107 [facility] Comment on above: Performed By: #### L AB113, [id number], LAB15 ####Desktop Support Manager: MIGUEL LEAL ([phone])[facility] [place] [address] CO2 [Moles/Vol] 20 mmol/L Low 23-31 [facility] Comment on above: Performed By: #### L AB113, [id number], LAB15 ####Desktop Support Manager: MIGUEL LEAL ([phone])[facility] ([facility])[address] [place] [address] Creatinine [Mass/Vol] 0.80 mg/dL Normal 0.57-1.11 [facility] Comment on above: Performed By: #### L AB113, [id number], LAB15 ####Desktop Support Manager: MIGUEL LEAL ([phone])[facility])[address] [place] [address] GLOMERULAR FILTRATION RATE ML/MIN/1.73 SQ M.PREDICTED 77.4 mL/min/1.73m*2 Normal >60.0 [facility] Comment on above: Result Comment: Calc ulation based on the Chronic Kidney Disease Epidemiology Collaboration (CKD-EPI) equation refit without adjustment for race Performed By: #### L AB113, [id number], LAB15 ####Desktop Support Manager: MIGUEL LEAL ([phone])[facility])[address] [place] [address] Glucose [Mass/Vol] 115 mg/dL Normal 82-115 [facility] Comment on above: Performed By: #### L AB113, [id number], LAB15 ####Desktop Support Manager: MIGUEL LEAL ([phone])[facility])[address] [place] [address] Potassium [Moles/Vol] 4.4 mmol/L Normal 3.5-5.1 [facility] Comment on above: Result Comment: [facility] potassium values may be up to 0.5 mmol/L lower than serum values. Performed By: #### Jv AB113, [id number], LAB15 ####Desktop Support Manager: MIGUEL LEAL ([phone])[facility])[address] [place] [address] Sodium [Moles/Vol] 137 mmol/L Normal 136-145 [facility] Comment on above: Performed By: #### Jv AB113, [id number], LAB15 ####Desktop Support Manager: MIGUEL LEAL ([phone])[facility])[address] [place] [address] Urea nitrogen [Mass/Vol] 12 mg/dL Normal 9-23 [facility] Comment on above: Performed By: #### Jv AB113, [id number], LAB15 ####Desktop Support Manager: MIGUEL LEAL ([phone])[facility])[address] [place] [address] BLOOD GAS ARTERIALon 025 AMOUNT OF OXYGEN 40% Normal [facility] Comment on above: Order Comment: 30 mi n after vent changes Performed By: #### L AB76 ####Desktop Support Manager: MIGUEL LEAL ([phone])[facility])[address] [place] [address] Base excess Calc (Bld) [Moles/Vol] -3.1000 mmol/L Low -3.0-3.0 [facility] Comment on above: Order Comment: 30 mi n after vent changes Performed By: #### L AB76 ####Desktop Support Manager: MIGUEL LEAL ([phone])[facility] ([facility])[address] [place] [address] CO2 [Moles/Vol] 24.9 mmol/L Normal 23.0-27.0 [facility] Comment on above: Order Comment: 30 mi n after vent changes Performed By: #### L AB76 ####Desktop Support Manager: MIGUEL LEAL ([phone])[facility])[address] [place] [address] HCO3 (Bld) [Moles/Vol] 23.4 mmol/L Normal 21.0-25.0 [facility] Comment on above: Order Comment: 30 mi n after vent changes Performed By: #### L AB76 ####Desktop Support Manager: MIGUEL LEAL ([phone])[facility])[address] [place] [address] Hemoglobin (Bld) [Mass/Vol] 9.2 g/dL Normal Screen only [facility] Comment on above: Order Comment: 30 mi n after vent changes Performed By: #### L AB76 ####Desktop Support Manager: MIGUEL LEAL ([phone])[facility] ([facility])[address] [place] [address] OXYGEN SATURATION (%) IN ARTERIAL BLOOD 98.4 % Normal 95.0-100.0 [facility] Comment on above: Order Comment: 30 mi n after vent changes Performed By: #### L AB76 ####Desktop Support Manager: MIGUEL LEAL ([phone])[facility])[address] [place] [address] PCO2 ARTERIAL 48.6 mm Hg High >35.0-<45.0 [facility] Comment on above: Order Comment: 30 mi n after vent changes Performed By: #### L AB76 ####Desktop Support Manager: MIGUEL LEAL ([phone])[facility] ([facility])[address] [place] [address] PH ARTERIAL 7.300 Low 7.350-7.450 [facility] Comment on above: Order Comment: 30 mi n after vent changes Performed By: #### L AB76 ####Desktop Support Manager: MIGUEL LEAL ([phone])[facility] ([facility])[address] [place] [address] PO2 ARTERIAL 159.7 mm Hg High 80.0-100.0 [facility] Comment on above: Order Comment: 30 mi n after vent changes Performed By: #### L AB76 ####Desktop Support Manager: MIGUEL LEAL ([phone])[facility] ([facility])[address] [place] [address] SOURCE OF OXYGEN Ventilator Normal [facility] Comment on above: Order Comment: 30 mi n after vent changes Performed By: #### L AB76 ####Desktop Support Manager: MIGUEL LEAL ([phone])[facility] ([facility])[address] [place] [address] AMOUNT OF OXYGEN 100 Normal [facility] Comment on above: Performed By: #### L AB76 ####Desktop Support Manager: MIGUEL LEAL ([phone])[facility] ([facility])[address] [place] [address] Base excess Calc (Bld) [Moles/Vol] -1.5000 mmol/L Normal -3.0-3.0 [facility] Comment on above: Performed By: #### L AB76 ####Desktop Support Manager: MIGUEL LEAL ([phone])[facility] ([facility])[address] [place] [address] CO2 [Moles/Vol] 24.4 mmol/L Normal 23.0-27.0 [facility] Comment on above: Performed By: #### L AB76 ####Desktop Support Manager: MIGUEL LEAL ([phone])[facility] ([facility])[address] [place] [address] HCO3 (Bld) [Moles/Vol] 23.2 mmol/L Normal 21.0-25.0 S [facility] Comment on above: Performed By: #### L AB76 ####Desktop Support Manager: MIGUEL LEAL ([phone])[facility])[address] [place] [address] Hemoglobin (Bld) [Mass/Vol] 8.2 g/dL Normal Screen only [facility] Comment on above: Performed By: #### L AB76 ####Desktop Support Manager: MIGUEL LEAL ([phone])[facility] ([facility])[address] [place] [address] OXYGEN SATURATION (%) IN ARTERIAL BLOOD 99.8 % Normal 95.0-100.0 [facility] Comment on above: Performed By: #### L AB76 ####Desktop Support Manager: MIGUEL LEAL ([phone])[facility] ([facility])[address] [place] [address] PCO2 ARTERIAL 38.9 mm Hg Normal >35.0-<45.0 [facility] Comment on above: Performed By: #### L AB76 ####Desktop Support Manager: MIGUEL LAEL ([phone])[facility] ([facility])[address] [place] [address] PH ARTERIAL 7.394 Normal 7.350-7.450 [facility] Comment on above: Performed By: #### L AB76 ####Desktop Support Manager: MIGUEL LEAL ([phone])[facility] ([facility])[address] [place] [address] PO2 ARTERIAL 359.3 mm Hg High 80.0-100.0 [facility] Comment on above: Performed By: #### L AB76 ####Desktop Support Manager: MIGUEL LEAL ([phone])[facility] ([facility])[address] [place] [address] SOURCE OF OXYGEN Ventilator Normal [facility] Comment on above: Performed By: #### L AB76 ####Desktop Support Manager: MIGUEL LEAL ([phone])[facility] ([facility])[address] [place] [address] BLOOD TYPE AND SCREEN GELon 06-18-2025 ABO GROUPING A Normal [facility] Comment on above: Order Comment: Speci men is valid for 3 days - nurse to verify valid specimen Performed By: #### L [id number] ####Desktop Support Manager: MIGUEL LEAL ([phone])[facility] ([facility])[address] [place] [address] RH TYPE IN BLOOD Positive Normal [facility] Comment on above: Order Comment: Speci men is valid for 3 days - nurse to verify valid specimen Performed By: #### L [id number] ####Desktop Support Manager: MIGUEL LEAL ([phone])[facility] ([facility])[address] [place] [address] Basic metabolic 1998 panelon 06-18-2025 Anion gap [Moles/Vol] 8 mmol/L 3 - 13 mmol/L [facility] Calcium [Mass/Vol] 10.6 mg/dL High 8.8 - 10. 0 mg/dL [facility] Chloride [Moles/Vol] 109 mmol/L High 98 - 10 7 mmol/L [facility] CO2 [Moles/Vol] 20 mmol/L Low 23 - 31 mmol/L [facility] Creatinine [Mass/Vol] 0.8 mg/dL 0.57 - 1.11 mg/dL [facility] GFR/1.73 sq M.predicted (S/P/Bld) [Vol rate/Area] 77.4 mL/min - PINF [facility] Glucose [Mass/Vol] 115 mg/dL 82 - 115 mg/dL [facility] Potassium [Moles/Vol] 4.4 mmol/L 3.5 - 5.1 mmol/L [facility] Sodium [Moles/Vol] 137 mmol/L 136 - 145 mmol/L [facility] Urea nitrogen [Mass/Vol] 12 mg/dL 9 - 23 mg/dL [facility] Blood type and Crossmatch brayden nav (Bld)on 06-18-2025 ABO group Nom (Bld) A [facility] Blood group antibody screen GEL Ql Negative [facility] D Ag Ql (RBC) Positive [facility] CALCIUM, IONIZEDon CALCIUM IONIZED 6.00 mg/dL High 4.30-5.20 [facility] Comment on above: Performed By: #### L AB54 ####Desktop Support Manager: MIGUEL LEAL ([phone])[facility])[address] [place] [address] PH, IONIZED CALCIUM 7.41 Normal 7.31-7.46 [facility] Comment on above: Performed By: #### L AB54 ####Desktop Support Manager: MIGUEL LEAL ([phone])[facility])[address] [place] [address] CALCIUM IONIZED 4.60 mg/dL Normal 4.30-5.20 [facility] Comment on above: Performed By: #### L AB54 ####Desktop Support Manager: MIGUEL LEAL ([phone])[address] PH, IONIZED CALCIUM 7.42 Normal 7.31-7.46 [facility] Comment on above: Performed By: #### L AB54 ####Desktop Support Manager: MIGUEL LEAL ([phone])[facility])[address] [place] [address] CBC (HEMOGRAM)on 06-18-2025 Erythrocyte distribution width (RBC) [Ratio] 13.6 % Normal 11.5-15.0 [facility] Comment on above: Performed By: #### L [id number] ####Desktop Support Manager: MIGUEL LEAL ([phone])[address] Hematocrit (Bld) [Volume fraction] 22.5 % Low 35.0-47.0 [facility] Comment on above: Performed By: #### L [id number] ####Desktop Support Manager: MIGUEL LEAL ([phone])[address] Hemoglobin (Bld) [Mass/Vol] 7.3 g/dL Low 11.7-16.0 [facility] Comment on above: Performed By: #### L AB294 ####Desktop Support Manager: MIGUEL LEAL ([phone])[facility] ([facility])[address] [place] [address] IPF 6 Normal [facility] Comment on above: Performed By: #### L [id number] ####Desktop Support Manager: MIGUEL LEAL ([phone])[facility] ([facility])[address] [place] [address] MCH (RBC) [Entitic mass] 31.5 pg Normal 26.0-34.0 [facility] Comment on above: Performed By: #### L AB294 ####Desktop Support Manager: MIGUEL LEAL ([phone])[facility])[address] [place] [address] MCHC 32.4 % Normal 30.5-36.0 [facility] Comment on above: Performed By: #### L [id number] ####Desktop Support Manager: MIGUEL LEAL ([phone])[facility] ([facility])[address] [place] [address] MCV (RBC) [Entitic vol] 97.0 fL Normal 77.0-99.0 [facility] Comment on above: Performed By: #### L [id number] ####Desktop Support Manager: MIGUEL LEAL ([phone])[facility] ([facility])[address] [place] [address] Platelet mean volume (Bld) [Entitic vol] 10.9 fL Normal 9.0-12.7 [facility] Comment on above: Performed By: #### L [id number] ####Desktop Support Manager: MIGUEL LEAL ([phone])[facility] ([facility])[address] [place] [address] Platelets (Bld) [#/Vol] 99 10*3/uL Low 140-440 S [facility] Comment on above: Performed By: #### L [id number] ####Desktop Support Manager: MIGUEL LEAL ([phone])[facility])[address] [place] [address] RBC (Bld) [#/Vol] 2.32 10*6/uL Low 3.80-5.20 [facility] Comment on above: Performed By: #### L [id number] ####Desktop Support Manager: MIGUEL LEAL ([phone])[facility])[address] [place] [address] WBC (Bld) [#/Vol] 6.5 10*3/uL Normal 3.6-10.7 [facility] Comment on above: Performed By: #### L [id number] ####Desktop Support Manager: MIGUEL LEAL ([phone])[facility])[address] [place] [address] Erythrocyte distribution width (RBC) [Ratio] 13.3 % Normal 11.5-15.0 [facility] Comment on above: Performed By: #### L [id number] ####Desktop Support Manager: MIGUEL LEAL ([phone])[facility])[address] [place] [address] Hematocrit (Bld) [Volume fraction] 34.6 % Low 35.0-47.0 [facility] Comment on above: Performed By: #### L [id number] ####Desktop Support Manager: MIGUEL LEAL ([phone])[facility])[address] [place] [address] Hemoglobin (Bld) [Mass/Vol] 11.5 g/dL Low 11.7-16.0 [facility] Comment on above: Performed By: #### L [id number] ####Desktop Support Manager: MIGUEL LEAL ([phone])[facility])[address] [place] [address] MCH (RBC) [Entitic mass] 31.3 pg Normal 26.0-34.0 [facility] Comment on above: Performed By: #### L [id number] ####Desktop Support Manager: MIGUEL LEAL ([phone])[facility])[address] [place] [address] MCHC 33.2 % Normal 30.5-36.0 [facility] Comment on above: Performed By: #### L [id number] ####Desktop Support Manager: MIGUEL LEAL ([phone])[facility] ([facility])[address] [place] [address] MCV (RBC) [Entitic vol] 94.3 fL Normal 77.0-99.0 [facility] Comment on above: Performed By: #### L [id number] ####Desktop Support Manager: MIGUEL LEAL ([phone])[facility] ([facility])[address] [place] [address] Platelet mean volume (Bld) [Entitic vol] 11.1 fL Normal 9.0-12.7 [facility] Comment on above: Performed By: #### L [id number] ####Desktop Support Manager: MIGUEL LEAL ([phone])[facility] ([facility])[address] [place] [address] Platelets (Bld) [#/Vol] 190 10*3/uL Normal 140-440 [facility] Comment on above: Performed By: #### L [id number] ####Desktop Support Manager: MIGUEL LELA ([phone])[facility] ([facility])[address] [place] [address] RBC (Bld) [#/Vol] 3.67 10*6/uL Low 3.80-5.20 [facility] Comment on above: Performed By: #### L [id number] ####Desktop Support Manager: MIGUEL LEAL ([phone])[facility] ([facility])[address] [place] [address] WBC (Bld) [#/Vol] 5.9 10*3/uL Normal 3.6-10.7 [facility] Comment on above: Performed By: #### L [id number] ####Desktop Support Manager: MIGUEL LEAL ([phone])[facility])[address] [place] [address] CBC panel Auto (Bld)on 06-18 Erythrocyte distribution width (RBC) [Ratio] 13.6 % 11.5 - 15.0 % [facility] Hematocrit (Bld) [Volume fraction] 22.5 % Low 35.0 - 47.0 % [facility] Hemoglobin (Bld) [Mass/Vol] 7.3 g/dL Low 11.7 - 16.0 g/dL [facility] Interpretation and review of laboratory results Abnormal [facility] IPF 6 [facility] MCH (RBC) [Entitic mass] 31.5 pg 26.0 - 34.0 pg [facility] MCHC (RBC) [Mass/Vol] 32.4 % 30.5 - 36.0 % [facility] MCV (RBC) [Entitic vol] 97 fL 77.0 - 99.0 fL [facility] Platelet mean volume (Bld) [Entitic vol] 10.9 fL 9.0 - 12.7 fL [facility] Platelets (Bld) [#/Vol] 99 10*3/uL Low 140 - 440 10*3/uL [facility] RBC (Bld) [#/Vol] 2.32 10*6/uL Low 3.80 - 5.2 0 10*6/uL [facility] WBC (Bld) [#/Vol] 6.5 10*3/uL 3.6 - 10.7 10*3/uL [facility] Erythrocyte distribution width (RBC) [Ratio] 13.3 % 11.5 - 15.0 % [facility] Hematocrit (Bld) [Volume fraction] 34.6 % Low 35.0 - 47.0 % [facility] Hemoglobin (Bld) [Mass/Vol] 11.5 g/dL Low 11.7 - 16.0 g/dL [facility] Interpretation and review of laboratory results Abnormal [facility] MCH (RBC) [Entitic mass] 31.3 pg 26.0 - 34.0 pg [facility] MCHC (RBC) [Mass/Vol] 33.2 % 30.5 - 36.0 % [facility] MCV (RBC) [Entitic vol] 94.3 fL 77.0 - 99.0 fL [facility] Platelet mean volume (Bld) [Entitic vol] 11.1 fL 9.0 - 12.7 fL [facility] Platelets (Bld) [#/Vol] 190 10*3/uL 140 - 440 10*3/uL [facility] RBC (Bld) [#/Vol] 3.67 10*6/uL Low 3.80 - 5.2 0 10*6/uL [facility] WBC (Bld) [#/Vol] 5.9 10*3/uL 3.6 - 10.7 10*3/uL [facility] COMPREHENSIVE METABOLIC PANE [place] 06-18-2025 Albumin [Mass/Vol] 3.3 g/dL Low 3.4-4.8 [facility] Comment on above: Performed By: #### L [id number], [id number] ####Desktop Support Manager: MIGUEL LEAL ([phone])[facility] ([facility])[address] [place] [address] ALP [Catalytic activity/Vol] 52 U/L Normal 40-150 [facility] Comment on above: Performed By: #### L [id number], [id number] ####Desktop Support Manager: MIGUEL LEAL ([phone])[facility] ([facility])[address] [place] [address] ALT [Catalytic activity/Vol] 7 U/L Normal <30 [facility] Comment on above: Performed By: #### L [id number], [id number] ####Desktop Support Manager: MIGUEL LEAL ([phone])[facility] ([facility])[address] [place] [address] Anion gap [Moles/Vol] 10 mmol/L Normal 3-13 [facility] Comment on above: Performed By: #### L [id number], [id number] ####Desktop Support Manager: MIGUEL LEAL ([phone])[facility] ([facility])[address] [place] [address] AST [Catalytic activity/Vol] 31 U/L Normal <34 [facility] Comment on above: Performed By: #### L [id number], [id number] ####Desktop Support Manager: MIGUEL LEAL ([phone])[facility] ([facility])[address] [place] [address] Bilirubin [Mass/Vol] 0.3 mg/dL Normal <1.2 [facility] Comment on above: Performed By: #### L [id number], [id number] ####Desktop Support Manager: MIGUEL LEAL ([phone])[facility] ([facility])[address] [place] [address] Calcium [Mass/Vol] 8.9 mg/dL Normal 8.8-10.0 [facility] Comment on above: Performed By: #### L [id number], [id number] ####Desktop Support Manager: MIGUEL LEAL ([phone])[facility])[address] [place] [address] Chloride [Moles/Vol] 102 mmol/L Normal 98-107 [facility] Comment on above: Performed By: #### L [id number], [id number] ####Desktop Support Manager: MIGUEL LEAL ([phone])[facility] ([facility])[address] [place] [address] CO2 [Moles/Vol] 21 mmol/L Low 23-31 [facility] Comment on above: Performed By: #### L [id number], [id number] ####Desktop Support Manager: MIGUEL LEAL ([phone])[facility] ([facility])[address] [place] [address] Creatinine [Mass/Vol] 0.71 mg/dL Normal 0.57-1.11 [facility] Comment on above: Performed By: #### L AB103, [id number] ####Desktop Support Manager: MIGUEL LEAL ([phone])[facility])[address] [place] [address] GLOMERULAR FILTRATION RATE ML/MIN/1.73 SQ M.PREDICTED 89.4 mL/min/1.73m*2 Normal >60.0 [facility] Comment on above: Result Comment: Calc ulation based on the Chronic Kidney Disease Epidemiology Collaboration (CKD-EPI) equation refit without adjustment for race Performed By: #### L [id number], [id number] ####Desktop Support Manager: MIGUEL LEAL ([phone])[facility])[address] [place] [address] Glucose [Mass/Vol] 100 mg/dL Normal 82-115 [facility] Comment on above: Performed By: #### L [id number], [id number] ####Desktop Support Manager: MIGUEL [phone])[facility])[address] [place] [address] Potassium [Moles/Vol] 4.6 mmol/L Normal 3.5-5.1 [facility] Comment on above: Result Comment: [facility] potassium values may be up to 0.5 mmol/L lower than serum values. Performed By: #### L [id number], [id number] ####Desktop Support Manager: MIGUEL LEAL ([phone])[facility] ([facility])[address] [place] [address] Protein [Mass/Vol] 6.0 g/dL Low 6.4-8.3 [facility] Comment on above: Performed By: #### L [id number], LAB17 ####Desktop Support Manager: MIGUEL LEAL ([phone])[facility])[address] [place] [address] Sodium [Moles/Vol] 133 mmol/L Low 136-145 [facility] Comment on above: Performed By: #### L [id number], [id number] ####Desktop Support Manager: MIGUEL LEAL ([phone])[facility] [place] [address] Urea nitrogen [Mass/Vol] 18 mg/dL Normal 9-23 [facility] Comment on above: Performed By: #### L AB103, LAB17 ####Desktop Support Manager: MIGUEL LEAL ([phone])[facility])[address] [place] [address] Calcium.ionized [Moles/Vol]O rdered By: Maria Guadalupe Aranda on 06-18-2025 Calcium.ionized (Bld) [Moles/Vol] 6 mg/dL High 4.30 - 5.20 mg/dL [facility] Interpretation and review of laboratory results Abnormal [facility] PH, IONIZED CALCIUM 7.41 7.31 - 7.46 [facility] Calcium.ionized [Moles/Vol]o n 06-18-2025 Calcium.ionized (Bld) [Moles/Vol] 4.6 mg/dL 4.30 - 5.20 mg/dL [facility] Interpretation and review of laboratory results Normal [facility] PH, IONIZED CALCIUM 7.42 7.31 - 7.46 [facility] Central Venous Lineon 2024 Naresh Motta CRNA 06/18/2025 12:43 PM Central Venous Line: Date/Time: 06/18/2025 12:18 PM A central venous line was placed in the Procedural for the following indication(s): Sterility preparation included the following: provider hand hygiene performed prior to central venous catheter insertion, all 5 sterile barriers used (gloves, gown, cap, mask, large sterile drape) during central venous catheter insertion, antiseptic used during central venous catheter insertion and skin prep agent completely dried prior to procedure. Medical reason for not performing maximal sterile barrier technique: yes The patient was placed in Trendelenburg position. Right The site was prepped with Chlorhexidine. Size: 8.5 Fr Catheter type: introducer with PA Catheter Number of Lumens: single lumen During the procedure, the following specific steps were taken: target vein identified, needle advanced into vein and blood aspirated and guidewire advanced into vein.The procedure was performed using ultrasound guidance . Sterile gel and probe cover used in ultrasound-guided central venous catheter insertion. Intravenous verification was obtained by ultrasound, venous blood return and transducer. Post insertion care included: all ports aspirated, all ports flushed easily, guidewire removed intact, Biopatch applied, line sutured in place and dressing applied. During the procedure the patient experienced: patient tolerated procedure well with no complications. A non-oximetric, 7.5 FR (size) Pulmonary Artery Catheter (PAC) was placed through the Introducer CVL in the right internal jugular vein. The PAC placement was confirmed by pressure tracing changes and ANTONIO and secured at 40 cm (depth). The patient experienced the following events during the procedure: no complications. Staffing Performed: anesthesiologist Anesthesiologist: Naresh Lim MD [facility] Comprehensive metabolic 1998 panelon 06-18-2025 Albumin [Mass/Vol] 3.3 g/dL Low 3.4 - 4.8 g/dL [facility] ALP [Catalytic activity/Vol] 52 U/L 40 - 150 U/L [facility] ALT [Catalytic activity/Vol] 7 U/L NINF - 30 U/L [facility] Anion gap [Moles/Vol] 10 mmol/L 3 - 13 mmol/L [facility] AST [Catalytic activity/Vol] 31 U/L NINF - 34 U/L [facility] Bilirubin [Mass/Vol] 0.3 mg/dL NINF - 1.2 mg/dL [facility] Calcium [Mass/Vol] 8.9 mg/dL 8.8 - 10. 0 mg/dL [facility] Chloride [Moles/Vol] 102 mmol/L 98 - 10 7 mmol/L [facility] CO2 [Moles/Vol] 21 mmol/L Low 23 - 31 mmol/L [facility] Creatinine [Mass/Vol] 0.71 mg/dL 0.57 - 1.11 mg/dL [facility] GFR/1.73 sq M.predicted (S/P/Bld) [Vol rate/Area] 89.4 mL/min - PINF [facility] Glucose [Mass/Vol] 100 mg/dL 82 - 115 mg/dL [facility] Interpretation and review of laboratory results Abnormal [facility] Potassium [Moles/Vol] 4.6 mmol/L 3.5 - 5.1 mmol/L [facility] Protein [Mass/Vol] 6 g/dL Low 6.4 - 8.3 g/dL [facility] Sodium [Moles/Vol] 133 mmol/L Low 136 - 145 mmol/L [facility] Urea nitrogen [Mass/Vol] 18 mg/dL 9 - 23 mg/dL [facility] Consulton 06-18-2025 Consult --- Attestation signed by Latrell Kidd DO at 06/19/2025 4:41 PM I have personally performed a [id number] diagnostic evaluation on this patient on date of service 06/19/25. History, labs, imaging studies, and electronic medical record have been reviewed by me. This note documented by the []Critical Care Fellow []warehouse general laborer [x]CRISTIANO reflects my history, exam, and medical decision making. I have reviewed and agree with the care plan. Changes were made in the orders as necessary. ROS documentation was reviewed and negative unless otherwise stated in HPI. Additional pertinent interval history, ROS, and physical exam findings: AdmitDate = 06/14/2025 LOS: 5 Came from [facility]. P/w worsening CP with exertion. Prior to presentation to OSH her CP was not resolving with rest. 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 Transferred to [facility] for CABG. Assessment: MVCAD s/p CABG x3 06/18/25.. Post op pulm mgmt Stress hyperglycemia in setting of preDM (based on A1c of 5.8) Hypothyroidism Osteoporosis Chronic back pain Plan: Agree with plan per CRISTIANO note. In addition, will attempt to SBT once more awake, off sedation, and paralytic reversed. Disposition: Unchanged. Critical Care Time: 30min Or Noncritical Care Time: n/a Total time caring for this patient including direct patient contact, review of data including imaging and labs, discussions with other team members and physicians, excluding procedures. [facility] Group: Critical Care Consultation Note Date: 06/18/25 PATIENT NAME: Richie Armas : 1950 (75 y.o.) Reason for Consult: Critical Care & Vent Management HPI: Richie Armas is a 75 year old female patient with PMHx that includes CKD2, Raynaud's, anxiety/depression, IBS/constipation, GERD, fibromyalgia, hypothyroidism, chronic low back pain S/P lumbar spinal surgery that presented to [facility] on 06/14/2025 from [facility]. Patient reports worsening chest pain associated with daily walks which started approximately 1 week ago. Initially she attributed this to her prior diagnosis of GERD but when she experienced pain 06/14 that did not resolve with rest she presented to [facility]. LHC at [facility] demonstrated severe multivessel disease and she was transferred to [facility] for CABG evaluation. Agreeable to CABG, went to OR on 06/18/25. Surgery: 06/18/25: Dr. Johnston- CABG x3, ANTONIO, Interval History: 06/18/25: POD #0: Patient arrived to the unit, intubated and sedated. Surgical hand off completed below. Surgery Hand Off: Arrival Time in CTVICU: 1603 Complications/Pertinent Events: Last Paralytic: 1330 Medications given in route: Gtts OR report Epinephrine: 0.02mcg/kg/min Propofol: Insulin: off Amicar: 29 Current gtts upon arrival Epinephrine: 0.04mcg/kg/min Propofol: 25mcg/kg/min Insulin: Amicar: 29 Devices: Epicardial wires: yes [x] no [] IABP: yes [] no [x] LVAD: yes [] no [x] Speed: Equipment: Back up controller yes [] no [x] Blood Transfusions Intra Op: yes [] no [x] CellSaver: Off Vital Signs including Cardiac Numbers (if indicated) at Conclusion of Hand-off OR CTVICU CO 3 3.44 CI 1.9 2.11 CVP 13 13 SVR 1500 1092 PAP 20/07 Additional Interventions/Misc during Handoff Review of Systems Unable to perform ROS: Intubated Allergies: Flexeril [cyclobenzaprine] Past Medical History: has no past medical history on file. Past Surgical History: has no past surgical history on file. Social History: Family History: family history is not on file. Medications: Prior to Admission medications Medication Sig Start Date End Date Taking? Authorizing Provider lubiprostone (Amitiza) 24 MCG capsule Take 24 mcg by mouth 2 times daily (with meals). 06/13/25 Yes Historical Provider, Objective: BP (!) 105/39 (BP Location: Left arm, Patient Position: Lying) Pulse 74 Temp (!) 35.7 ?C (96.3 ?F) (Core) Resp 12 Ht 5' 3 (1.6 m) Wt 133 lb (60.3 kg) SpO2 100% BMI 23.56 kg/m? Intake/Output Summary (Last 24 hours) at 06/18/2025 1612 Last data filed at 06/18/2025 1606 Gross per 24 hour Intake 1997.2 ml Output 2505 ml Net -507.8 ml Physical Exam Vitals reviewed. Constitutional: Interventions: She is sedated and intubated. HENT: Mouth/Throat: Comments: ETT/OG. Neck: Comments: Central line and [place]. Cardiovascular: Rate and Rhythm: Regular rhythm. Bradycardia present. Pulses: Normal pulses. Pulmonary: Effort: She is intubated. Breath sounds: No wheezing, rhonchi or rales. Comments: Ventilator assisted. Abdominal: Palpations: Abdomen is soft. Comments: Chest tubes. Genitourinary: Comments: [place]. Musculoskeletal: Comments: AC (more content not included)... Normal [facility] ECG 12-LEADon 06-18-2025 ECG 12-LEAD IMPRESSION: Sinus rhythm LVH w/ repol abnormalities, possible ischemia Compared to ECG 06/18/2025 03:55:41 Sinus tachycardia no longer present Right-axis deviation no longer present Possible ischemia still present Electronically Signed On 06-18-2025 17:11:43 EDT by Leopoldoashkan Anaya [facility] ECG 12-LEAD IMPRESSION: Sinus tachycardia Probable left atrial enlargement Low voltage with right axis deviation Repol abnrm suggests ischemia, diffuse leads Compared to ECG 06/18/2025 03:27:31 Right-axis deviation now present Possible ischemia now present Sinus rhythm no longer present Electronically Signed On 06-18-2025 14:33:25 EDT by Leopoldo Bugkobe [facility] ECG 12-LEAD IMPRESSION: Sinus rhythm Nonspecific T abnormalities, lateral leads Compared to ECG 06/17/2025 04:45:13 Myocardial infarct finding now present T-wave abnormality now present ST (T wave) deviation no longer present Electronically Signed On 06-18-2025 14:31:02 EDT by Leopoldouche Anaya [facility] FIBRINOGENon 06-18-2025 FIBRINOGEN 169 mg/dL Low 200-400 [facility] Comment on above: Performed By: #### L [id number] ####Desktop Support Manager: MIGUEL LEAL ([phone])[facility] ([address] Fibrinogen Coag (PPP) [Mass/ Vol]Ordered By: Kylie Hui on 06-18-2025 Interpretation and review of laboratory results Abnormal [facility] HEMOGLOBIN AND HEMATOCRIT, B LOODon 06-18-2025 Hematocrit (Bld) [Volume fraction] 26.5 % Low 35.0-47.0 [facility] Comment on above: Order Comment: Recom mend 1 hour post transfusion Performed By: #### L [id number] ####Desktop Support Manager: MIGUEL LEAL ([phone])[facility] ([facility])[address] [place] [address] Hemoglobin (Bld) [Mass/Vol] 8.8 g/dL Low 11.7-16.0 [facility] Comment on above: Order Comment: Recom mend 1 hour post transfusion Performed By: #### L [id number] ####Desktop Support Manager: MIGUEL LEAL ([phone])[facility] ([facility])[address] [place] [address] HIGH SENSITIVITY TROPONIN, S ERIAL BASELINEon 06-18-2025 TROPONIN HS SERIAL BASELINE 153 ng/L High <=14 [facility] Comment on above: Result Comment: In i ndividuals presenting with symptoms > 2h, a baseline troponin <= 5 ng/L suggests acute cardiac injury is unlikely and further serial testing is generally not indicated. Performed By: #### L [id number] ####Desktop Support Manager: MIGUEL LEAL ([phone])[facility] ([facility])[address] [place] [address] HIGH SENSITIVITY TROPONIN, S ERIAL, SECOND TESTon 06-18-2025 2H TROPONIN HS (SERIAL 2ND TROPONIN) 176 ng/L High <=14 [facility] Comment on above: Result Comment: Risi ng or falling troponin delta greater than 15 ng/L as compared to baseline value is significant for acute cardiac injury. Performed By: #### L [id number] ####Desktop Support Manager: MIGUEL LEAL ([phone])[facility] ([facility])[address] [place] [address] [place] Hemoglobin (Bld) [Mass/Vol]o n 06-18-2025 Hematocrit (Bld) [Volume fraction] 26.5 % Low 35.0 - 47.0 % [facility] Interpretation and review of laboratory results Abnormal [facility] Laboratory - Chemistry and C hemistry - challengeon 06-18-2025 Glucose [Mass/Vol] 115 mg/dL High 70 - 100 mg/dL [facility] Glucose [Mass/Vol] 116 mg/dL High 70 - 100 mg/dL [facility] Glucose [Mass/Vol] 123 mg/dL High 70 - 100 mg/dL [facility] Glucose [Mass/Vol] 149 mg/dL High 70 - 100 mg/dL [facility] Base excess Calc (Bld) [Moles/Vol] -3.1000 mmol/L Low -3.0 - 3.0 mmol/L [facility] CO2 (Bld) [Partial pressure] 48.6 mm[Hg] High - PINF [facility] CO2 [Moles/Vol] 24.9 mmol/L 23.0 - 27.0 mmol/L [facility] HCO3 (Bld) [Moles/Vol] 23.4 mmol/L 21.0 - 25.0 mmol/L [facility] Oxygen (Bld) [Partial pressure] 159.7 mm[Hg] High [facility] pH (Bld) 7.3 [pH] Low 7.350 - 7.450 [facility] Glucose [Mass/Vol] 160 mg/dL High 70 - 100 mg/dL [facility] Glucose [Mass/Vol] 158 mg/dL High 70 - 100 mg/dL [facility] Glucose [Mass/Vol] 110 mg/dL High 70 - 100 mg/dL [facility] Magnesium [Mass/Vol] 5.2 mg/dL High 1.6 - 2 .6 mg/dL [facility] Magnesium [Mass/Vol] 2.1 mg/dL 1.6 - 2 .6 mg/dL [facility] - Chemistry and C hemistry - challengeOrdered By: Acacia Schmitt on 06-18-2025 Base excess Calc (Bld) [Moles/Vol] -1.5000 mmol/L -3.0 - 3.0 mmol/L [facility] CO2 (Bld) [Partial pressure] 38.9 mm[Hg] - PINF [facility] CO2 [Moles/Vol] 24.4 mmol/L 23.0 - 27.0 mmol/L [facility] HCO3 (Bld) [Moles/Vol] 23.2 mmol/L 21.0 - 25.0 mmol/L [facility] Oxygen (Bld) [Partial pressure] 359.3 mm[Hg] High [facility] pH (Bld) 7.394 [pH] 7.350 - 7.450 [facility] Laboratory - CoagulationOrde red By: Kylie Hui on 06-18-2025 Fibrinogen Coag (PPP) [Mass/Vol] 169 mg/dL Low 200 - 400 mg/dL [facility] Laboratory - Coagulationon 0 06-18-2025 aPTT Coag (PPP) [Time] 30.7 s High 20.0 - 30.5 s [facility] INR Coag (PPP) [Relative time] 1.4 {INR} High 0.9 - 1.1 [facility] PT Coag (Bld) [Time] 14.5 s High 9.0 - 1 2.0 s [facility] Laboratory - Hematology and Cell countson 06-18-2025 Hemoglobin (Bld) [Mass/Vol] 8.8 g/dL Low 11.7 - 16.0 g/dL [facility] Hemoglobin (Bld) [Mass/Vol] 9.2 g/dL 7.0 g/dl [facility] Laboratory - Hematology and Cell countsOrdered By: Acacia Schmitt on 06-18-2025 Hemoglobin (Bld) [Mass/Vol] 8.2 g/dL 7.0 g/dl [facility] MAGNESIUMon 06-18-2025 Magnesium [Mass/Vol] 5.2 mg/dL High 1.6-2.6 [facility] Comment on above: Result Comment: ROCIO Bhandari COMMENTS: Higher values can be expected in females during menses. Performed By: #### L [id number], [id number], LAB15 ####Desktop Support Manager: MIGUEL LEAL ([phone])[facility] [place] [address] Magnesium [Mass/Vol] 2.1 mg/dL Normal 1.6-2.6 [facility] Comment on above: Result Comment: ROCIO Bhandari COMMENTS: Higher values can be expected in females during menses. Performed By: #### L AB103, LAB17 ####Desktop Support Manager: MIGUEL LEAL ([phone])[facility])[address] [place] [address] Magnesium [Mass/Vol]on 06-18 [facility] Interpretation and review of laboratory results Normal [facility] No Panel Informationon 06-18 Interpretation and review of laboratory results Abnormal [facility] Interpretation and review of laboratory results Abnormal [facility] Interpretation and review of laboratory results Abnormal [facility] Interpretation and review of laboratory results Abnormal [facility] Amount Of Oxygen 40% [facility] Interpretation and review of laboratory results Abnormal [facility] Source Of Oxygen Ventilator [facility] Interpretation and review of laboratory results Abnormal [facility] Interpretation and review of laboratory results Abnormal [facility] Blood Expiration Date [id number] S [facility] Crossmatch interpretation COMP [facility] Dispense [facility] Blood Type 6200 [facility] PRODUCT CODE [id number] [facility] Unit ABO A [facility] Unit Number [id number] [facility] alth Unit RH Positive [facility] Unit Volume 300 mL [facility] P [place] 47 degrees [facility] [place] Interval 160 ms [facility] QRS [place] 26 degrees [facility] QRSD Interval 93 ms [facility] QT Interval 401 ms [facility] QTC Interval 420 ms [facility] T Wave [place] 57 degrees [facility] CV EPIPHANY [facility] Interpretation and review of laboratory results Abnormal [facility] Interpretation and review of laboratory results Abnormal [facility] Interpretation and review of laboratory results Abnormal [facility] P [place] 76 degrees [facility] [place] Interval 155 ms [facility] QRS [place] 131 degrees [facility] QRSD Interval 101 ms [facility] QT Interval 363 ms [facility] QTC Interval 469 ms [facility] T Wave [place] 23 degrees [facility] CV EPIPHANY [facility] 2h Troponin HS (Serial 2nd Troponin) 176 ng/L High NINF - 14 ng/L [facility] Interpretation and review of laboratory results Abnormal [facility] Interpretation and review of laboratory results Abnormal [facility] Troponin HS Serial Baseline 153 ng/L High NINF - 14 ng/L [facility] No Panel InformationOrdered By: Acacia Schmitt on 06-18-2025 Amount Of Oxygen 100 [facility] Gabe alth Interpretation and review of laboratory results Abnormal [facility] Source Of Oxygen Ventilator [facility] He alth [facility] No Panel InformationOrdered By: Leopoldo Anaya on 06-18-2025 P [place] 68 degrees [facility] Work Phone: [place] Interval 187 ms [facility] Work Phone: QRS [place] 63 degrees [facility] Work Phone: QRSD Interval 100 ms [facility] Work Phone: QT Interval 400 ms [facility] Work Phone: QTC Interval 426 ms [facility] Work Phone: T Wave [place] -85 degrees [facility] Work Phone: [facility] Work Phone: PHOSPHORUSon 06-18-2025 Phosphate [Mass/Vol] 3.3 mg/dL Normal 2.3-4.7 [facility] Comment on above: Performed By: #### L AB113, [id number], LAB15 ####Desktop Support Manager: MIGUEL LEAL ([phone])[facility])[address] [place] [address] PROTIME AND APTTon aPTT Coag (Bld) [Time] 30.7 s High 20.0-30.5 [facility] Comment on above: Performed By: #### L [id number], [id number] ####Desktop Support Manager: MIGUEL LEAL ([phone])[facility] [employer])[address] [place] [address] INR Coag (PPP) [Relative time] 1.4 {INR} High 0.9-1.1 [facility] Comment on above: Result Comment: [place] mmended Anticoagulant Therapy: SEE BELOW ----- INR of 2.0 - 3.0 : - Prophylaxis of Venous Thrombosis (high-risk surgery) - Treatment of Venous Thrombosis - Treatment of Pulmonary Embolism (Includes tissue heart valves, Acute Myocardial Infarction to prevent systemic embolism, Valvular Heart Disease, and Atrial Fibrillation) ----- INR of 2.5 - 3.5 : - Mechanical Prosthetic Valves (high risk) - If oral anticoagulant therapy is used to prevent Myocardial Infarction Performed By: #### L [id number], [id number] ####Desktop Support Manager: MIGUEL LEAL ([phone])[facility] ([facility])[address] [place] [address] PT Coag (PPP) [Time] 14.5 s High 9.0-12.0 [facility] Comment on above: Performed By: #### L [id number], [id number] ####Desktop Support Manager: MIGUEL LEAL ([phone])[facility])[address] [place] [address] Phosphate [Moles/Vol]on 05-22 Interpretation and review of laboratory results Normal [facility] Phosphate [Mass/Vol] 3.3 mg/dL 2.3 - 4 .7 mg/dL [facility] Progress Noteon 06-18-2025 Progress Note Pt extubated and transition to NIV 10/26 via Vent 980 per MD order. No adverse reactions noted and will continue to monitor Normal [facility] Progress Note --- Attestation signed by Sandip Quezada MD at 06/18/2025 1:14 PM IDr. Quezada saw and evaluated the patient on 06/18/2025. I personally obtained the figueroa and critical portions of the history and physical exam. I reviewed the chart and discussed the patient with the resident. I agree with the resident's medical decision making. 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 She initially thought she was having acid reflux-like symptoms but symptoms worsened with radiation to her arm so she presented at [facility]. She was found to have elevated troponin and underwent coronary angiography that showed multivessel coronary artery disease with subtotally occluded RCA, high-grade lesion obtuse marginal branch and obstructive disease in the LAD. She was subsequently transferred to [facility] for bypass consideration. The first night she was here she did have some mild discomfort. The patient has been maintained on nitroglycerin GGT along with heparin GGT. She was evaluated by the CT surgery team were planning on proceeding with bypass later on this week. The patient did have some worsening chest discomfort around 4 AM this morning. Prior nitroglycerin drip was uptitrated. This morning on my evaluation her pain was better controlled but and was down to 1 or 2 out of 10. She was on 100 mcg/min of the nitroglycerin drip. Her labs are stable this morning. Her hemodynamics are stable otherwise. She did have some spikes in her blood pressure due to chest discomfort. For her presentation with an NSTEMI, we will continue aspirin 81 mg daily and heparin GGT. due to recurrence of chest discomfort this morning, we did touch base with the CT surgery team and the plan would be to proceed with CABG later on today instead of waiting until tomorrow. Will continue the nitroglycerin GGT at this time. Continue carvedilol 6.25 mg twice daily and PPI. The patient does have reported intolerance to multiple statins in the past. Continue Zetia 10 mg daily that was started during this admission. She would be a good candidate for outpatient PCSK9 inhibitors upon discharge. Portions of the information within this encounter were entered using an electronic dictation system. Best attempts were made to proofread the information prior to note completion. Despite the review of the information, some errors may remain. If there are questions related to the information contained within the note please contact the signing provider directly. Sandip Quezada MD, [facility], [facility] [employer] Technician [facility], [facility] [address] [address] p [phone] f [phone] [email or web address] [facility] CCU PROGRESS NOTE Patient Name: Richie Armas : 1950 Subjective: Richie Armas is a 75 y.o. female with PMH CKD 2, Raynaud's, anxiety/depression, IBS/constipation, GERD, fibromyalgia, hypothyroidism, chronic low back pain S/P lumbar spinal surgery that presented to [facility] on 06/14/2025 from outside facility ([facility]). 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 Patient transferred to [facility] for CABG eval and loaded with ASA, heparin, started on nitroglycerin gtt. Echo on 06/16/25 showed normal LV function, EF 63%. Interval History: Overnight patient began experiencing an increase in CP, 10/10 substernal, was restarted on nitroglycerin gtt titrated up to 100, given IV fentanyl 50 mcg once and IV dilaudid 0.5 mg once. Continues to have minimal reflux-like sx today. Plan for CABG this afternoon. Hemodynamically stable. Review of Systems: Review of Systems Constitutional: Negative for chills and fever. Respiratory: Negative for cough and shortness of breath. Cardiovascular: Positive for chest pain. Negative for leg swelling. Gastrointestinal: Negative for abdominal pain, constipation and nausea. Neurological: Negative for headaches. Inpatient Medications: Scheduled Meds:Scheduled Meds[1] Continuous Infusions:Continuous Meds[2] PRN Meds used in the last 24hr: tizanidine 4 mg Objective: Physical Examination: BP 110/77 Pulse 71 Temp 37 ?C (98.6 ?F) (Temporal) Resp 18 Ht 5' 3 (1.6 m) Wt 133 lb 13.1 oz (60.7 kg) SpO2 91% BMI 23.71 kg/m? Intake/Output Summary (Last 24 hours) at 7/ (more content not included)... Normal [facility] Vital signson 06-18-2025 Heart rate 66 /min bpm [facility] Heart rate 100 /min bpm [facility] Vital signsOrdered By: Torrey Anaya on 06-18-2025 Heart rate 68 /min bpm [facility] Work Phone: XR CHEST 1 VIEWon 06-18-2025 XR CHEST 1 VIEW Patient Name: RICHIE ARMAS : 1950 Exam Date/Time: 06/18/2025 16:13 Procedure: XR CHEST 1 VIEW Ordering Provider: VEGA KYLE Reason For Exam: Post op open heart surgery; ETT placement Examination: Portable chest Indication: Post op open heart surgery; ETT placement Comparison: Same day Findings: No significant interval change. Mild pulmonary edema with recent median sternotomy changes. Numerous support devices, similar. Chest tube overlies the left lower hemithorax. No sizable pneumothorax. IMPRESSION: Impression: As above. Report Dictated on Electronically Signed By: Allison Hope MD Electronically Signed Date/Time: 06/18/2025 4:19 PM EDT Normal [facility] XR CHEST 1 VIEW Patient Name: RICHIE ARMAS : 1950 Exam Date/Time: 06/18/2025 15:26 Procedure: XR CHEST 1 VIEW Ordering Provider: JOHNSTON MAUREEN Reason For Exam: Incorrect needle count in the Operating Room Examination: Portable chest Indication: Incorrect needle count in the Operating Room Comparison: Same day Findings: Mild diffuse interstitial prominence of the lungs, presumed pulmonary edema. Left basilar infiltrate or atelectasis. Elberta-Olivia catheter tip overlies the distal main or proximal right pulmonary artery. Median sternotomy changes present. There is calcification of aortic arch. Endotracheal tube tip slightly below the medial clavicles. NG tube is directed over the stomach. IMPRESSION: Impression: No obvious retained surgical needle. Median sternotomy changes. Surgical clips overlie the mid cardiac silhouette and left heart border. Report Dictated on Electronically Signed By: Allison Hope MD Electronically Signed Date/Time: 06/18/2025 3:56 PM EDT Normal [facility] XR CHEST 1 VIEW Patient Name: RICHIE ARMAS : 1950 Exam Date/Time: 06/18/2025 04:02 Procedure: XR CHEST 1 VIEW Ordering Provider: QUEZADA SAURAV Reason For Exam: Confirm Tube placement AP CHEST X-RAY CLINICAL INDICATION: Confirm Tube placement TECHNIQUE: AP portable x-ray of the chest. COMPARISON: None FINDINGS: Lines/Devices: No devices or tubes are identified. Heart/Mediastinum: Within normal limits Lungs: No consolidation or pleural effusion. Bones: Unremarkable IMPRESSION: No line or tube is identified. Please correlate clinically. Report Dictated on Electronically Signed By: Brandon Roldan MD Electronically Signed Date/Time: 06/18/2025 5:09 AM EDT Normal [facility] XR Chest Single viewon 06-[address] [facility] RADIOLOGY [facility] Radiology Study observation (narrative) [facility] Radiology Study observation (narrative) [facility] RADIOLOGY [facility] Radiology Study observation (narrative) [facility] XR Chest Single viewOrdered By: Allison Hope on 06-18-2025 [facility] [employer] Phone: XR Chest Single viewOrdered By: Brandon Roldan on 06-18-2025 [facility] [employer] Phone: aPTT Coag (Bld) [Time]on aPTT Coag (PPP) [Time] 61.2 s High 20.0 - 30.5 s [facility] Interpretation and review of laboratory results Abnormal [facility] aPTT Coag (PPP) [Time] 49.3 s High 20.0 - 30.5 s [facility] Interpretation and review of laboratory results Abnormal [facility] [id number] 06-17-2025 [id number] Cardiothoracic Surge ry Note PATIENT NAME: Richie Armas : 1950 (75 y.o.) TODAY'S DATE: 06/17/2025 Objective: BP 141/82 Pulse 70 Temp 36.7 ?C (98.1 ?F) (Temporal) Resp 20 Ht 5' 3 (1.6 m) Wt 134 lb 14.7 oz (61.2 kg) SpO2 97% BMI 23.90 kg/m? CABG now scheduled for tomorrow, 06/18/25, with Dr. Johnston to follow AM case. Discussed with patient, all questions answered. Consent signed and on chart. Pre-op orders placed. -NPO at midnight. -MRSA nasal swab. -Chlorhexidine baths, mouthwash and bactroban nasal ointment. -Type and screen, prepare 2units PRBC. -Continue heparin gtt and nitroglycerin gtt if needed. Normal [facility] APTTon 06-17-2025 aPTT Coag (Bld) [Time] 52.5 s High 20.0-30.5 [facility] Comment on above: Result Comment: ROCIO Bhandari COMMENTS: NOTE: The therapeutic time for Heparin anticoagulation, based on Xa activity inhibition, is an APTT of 46-80 seconds. Performed By: #### L AB325 ####Desktop Support Manager: MIGUEL LEAL ([phone])[address] CALCIUM, IONIZEDon 5 CALCIUM IONIZED 4.30 mg/dL Normal 4.30-5.20 [facility] Comment on above: Performed By: #### L AB54 ####Desktop Support Manager: MIGUEL LEAL ([phone])[facility] ([facility])[address] [place] [address] PH, IONIZED CALCIUM 7.37 Normal 7.31-7.46 [facility] Comment on above: Performed By: #### L AB54 ####Desktop Support Manager: MIGUEL LAEL ([phone])[facility] ([facility])[address] [place] [address] CBC (HEMOGRAM)on 06-17-2025 Erythrocyte distribution width (RBC) [Ratio] 13.3 % Normal 11.5-15.0 [facility] Comment on above: Performed By: #### L AB294 ####Desktop Support Manager: MIGUEL LEAL ([phone])[facility])[address] [place] [address] Hematocrit (Bld) [Volume fraction] 33.3 % Low 35.0-47.0 [facility] Comment on above: Performed By: #### L AB294 ####Desktop Support Manager: MIGUEL LEAL ([phone])[facility])[address] [place] [address] Hemoglobin (Bld) [Mass/Vol] 11.0 g/dL Low 11.7-16.0 [facility] Comment on above: Performed By: #### L AB294 ####Desktop Support Manager: MIGUEL LEAL ([phone])[facility] ([facility])[address] [place] [address] MCH (RBC) [Entitic mass] 31.3 pg Normal 26.0-34.0 [facility] Comment on above: Performed By: #### L AB294 ####Desktop Support Manager: MIGUEL LEAL ([phone])[facility])[address] [place] [address] MCHC 33.0 % Normal 30.5-36.0 [facility] Comment on above: Performed By: #### L AB294 ####Desktop Support Manager: MIGUEL LEAL ([phone])[facility] ([facility])[address] [place] [address] MCV (RBC) [Entitic vol] 94.6 fL Normal 77.0-99.0 [facility] Comment on above: Performed By: #### L AB294 ####Desktop Support Manager: MIGUEL LEAL ([phone])[facility])[address] [place] [address] Platelet mean volume (Bld) [Entitic vol] 10.6 fL Normal 9.0-12.7 [facility] Comment on above: Performed By: #### L AB294 ####Desktop Support Manager: MIGUEL LEAL ([phone])[facility])[address] [place] [address] Platelets (Bld) [#/Vol] 183 10*3/uL Normal 140-440 [facility] Comment on above: Performed By: #### L AB294 ####Desktop Support Manager: MIGUEL LEAL ([phone])[facility] ([facility])[address] [place] [address] RBC (Bld) [#/Vol] 3.52 10*6/uL Low 3.80-5.20 [facility] Comment on above: Performed By: #### L AB294 ####Desktop Support Manager: MIGUEL LEAL ([phone])[facility])[address] [place] [address] WBC (Bld) [#/Vol] 5.9 10*3/uL Normal 3.6-10.7 [facility] Comment on above: Performed By: #### L AB294 ####Desktop Support Manager: MIGUEL LEAL ([phone])[facility])[address] [place] [address] CBC panel Auto (Bld)on 06-17 Erythrocyte distribution width (RBC) [Ratio] 13.3 % 11.5 - 15.0 % [facility] Hematocrit (Bld) [Volume fraction] 33.3 % Low 35.0 - 47.0 % [facility] Hemoglobin (Bld) [Mass/Vol] 11 g/dL Low 11.7 - 16.0 g/dL [facility] Interpretation and review of laboratory results Abnormal [facility] MCH (RBC) [Entitic mass] 31.3 pg 26.0 - 34.0 pg [facility] MCHC (RBC) [Mass/Vol] 33 % 30.5 - 36.0 % [facility] MCV (RBC) [Entitic vol] 94.6 fL 77.0 - 99.0 fL [facility] Platelet mean volume (Bld) [Entitic vol] 10.6 fL 9.0 - 12.7 fL [facility] Platelets (Bld) [#/Vol] 183 10*3/uL 140 - 440 10*3/uL [facility] RBC (Bld) [#/Vol] 3.52 10*6/uL Low 3.80 - 5.2 0 10*6/uL [facility] WBC (Bld) [#/Vol] 5.9 10*3/uL 3.6 - 10.7 10*3/uL [facility] COMPREHENSIVE METABOLIC PANE [place] 06-17-2025 Albumin [Mass/Vol] 3.1 g/dL Low 3.4-4.8 [facility] Comment on above: Performed By: #### L AB103, LAB17 ####Desktop Support Manager: MIGUEL LEAL ([phone])[facility] ([facility])[address] [place] [address] ALP [Catalytic activity/Vol] 44 U/L Normal 40-150 [facility] Comment on above: Performed By: #### L AB103, LAB17 ####Desktop Support Manager: MIGUEL LEAL ([phone])[facility] ([facility])[address] [place] [address] [place] ALT [Catalytic activity/Vol] U/L Normal <30 [facility] Comment on above: Performed By: #### L AB103, LAB17 ####Desktop Support Manager: MIGUEL LEAL ([phone])[facility] ([facility])[address] [place] [address] Anion gap [Moles/Vol] 7 mmol/L Normal 3-13 [facility] Comment on above: Performed By: #### L AB103, LAB17 ####Desktop Support Manager: MIGUEL LEAL ([phone])[facility] ([facility])[address] [place] [address] [place] AST [Catalytic activity/Vol] 28 U/L Normal <34 [facility] Comment on above: Performed By: #### L AB103, LAB17 ####Desktop Support Manager: MIGUEL LEAL ([phone])[facility] ([facility])[address] [place] [address] [place] Bilirubin [Mass/Vol] 0.3 mg/dL Normal <1.2 [facility] Comment on above: Performed By: #### L BRUCE, LAB17 ####Desktop Support Manager: MIGUEL LEAL ([phone])[facility] [place] [address] Calcium [Mass/Vol] 8.0 mg/dL Low 8.8-10.0 [facility] Comment on above: Performed By: #### Jv BARRERA, LAB17 ####Desktop Support Manager: MIGUEL LEAL ([phone])[facility])[address] [place] [address] Chloride [Moles/Vol] 103 mmol/L Normal 98-107 [facility] Comment on above: Performed By: #### Jv BARRERA, LAB17 ####Desktop Support Manager: MIGUEL LEAL ([phone])[facility])[address] [place] [address] CO2 [Moles/Vol] 25 mmol/L Normal 23-31 [facility] Comment on above: Performed By: #### Jv BARRERA, LAB17 ####Desktop Support Manager: MIGUEL LEAL ([phone])[facility] ([facility])[address] [place] [address] Creatinine [Mass/Vol] 0.72 mg/dL Normal 0.57-1.11 [facility] Comment on above: Performed By: #### Jv BARRERA, LAB17 ####Desktop Support Manager: MIGUEL LEAL ([phone])[facility])[address] [place] [address] GLOMERULAR FILTRATION RATE ML/MIN/1.73 SQ M.PREDICTED 87.9 mL/min/1.73m*2 Normal >60.0 [facility] Comment on above: Result Comment: Calc ulation based on the Chronic Kidney Disease Epidemiology Collaboration (CKD-EPI) equation refit without adjustment for race Performed By: #### L AB103, LAB17 ####Desktop Support Manager: MIGUEL LEAL ([phone])[facility] ([facility])[address] [place] [address] Glucose [Mass/Vol] 93 mg/dL Normal 82-115 [facility] Comment on above: Performed By: #### L AB103, LAB17 ####Desktop Support Manager: MIGUEL LEAL ([phone])[facility])[address] [place] [address] Potassium [Moles/Vol] 4.1 mmol/L Normal 3.5-5.1 [facility] Comment on above: Result Comment: [facility] potassium values may be up to 0.5 mmol/L lower than serum values. Performed By: #### L AB103, LAB17 ####Desktop Support Manager: MIGUEL LEAL ([phone])[facility])[address] [place] [address] Protein [Mass/Vol] 5.7 g/dL Low 6.4-8.3 [facility] Comment on above: Performed By: #### L 103, LAB17 ####Desktop Support Manager: MIGUEL LEAL ([phone])[facility] ([facility])[address] [place] [address] Sodium [Moles/Vol] 135 mmol/L Low 136-145 [facility] Comment on above: Performed By: #### L AB103, LAB17 ####Desktop Support Manager: MIGUEL LEAL ([phone])[facility])[address] [place] [address] Urea nitrogen [Mass/Vol] 10 mg/dL Normal 9-23 [facility] Comment on above: Performed By: #### L AB103, LAB17 ####Desktop Support Manager: MIGUEL LEAL ([phone])[facility])[address] [place] [address] CT CHEST WO IV CONTRASTon CT CHEST WO IV CONTRAST Patient Name: RICHIE YARBROUGH : 1950 Exam Date/Time: 06/16/2025 16:29 Procedure: CT CHEST WO IV CONTRAST Ordering Provider: VEGA KYLE Reason For Exam: assess aorta prior to open heart surgery CT CHEST WITHOUT CONTRAST: CLINICAL INDICATION: Assess aorta prior to open heart surgery TECHNIQUE: 1 mm axial images without IV contrast. Coronal and sagittal reconstructions were reviewed. Dose reduction was employed with automated exposure control. COMPARISON: None. FINDINGS: Lungs: The lungs demonstrate no consolidation or opacification. No parenchymal or pleural-based nodule or mass is seen. Pleural fluid: None. Heart/Great vessels: Dense coronary artery calcifications. Nonaneurysmal thoracic aorta. Normal anatomic configuration/morpholog y of the aorta and its branch vessels. Mediastinum/Cathy/Axilla : No mass or lymphadenopathy is identified. Soft tissues chest wall: Unremarkable. Osseous structures: Nonacute appearing T11 superior endplate compression/fracture deformity involving up to 40-50% of the vertebral body height. Multilevel degenerative change. Upper abdomen: Increased fecal residue throughout the colon is suggestive of constipation. 3 mm right renal calculi. No acute process identified. IMPRESSION: 1. Normal anatomic configuration/morpholog y of the aorta and its branch vessels. 2. Dense coronary artery calcifications. 3. Increased fecal residue throughout the colon is suggestive of constipation. 4. 3 mm right renal calculi. Report Dictated on Electronically Signed By: Foster Rushing MD Electronically Signed Date/Time: 06/17/2025 8:53 AM EDT assess aorta prior to open heart surgery Normal [facility] CT Chest WO contraston 06-17 [facility] RADIOLOGY [facility] RADIOLOGY [facility] CT Chest WO contrastOrdered By: Foster Rushing on 06-17-2025 [facility] Work Phone: Calcium.ionized [Moles/Vol]o n 06-17-2025 Calcium.ionized (Bld) [Moles/Vol] 4.3 mg/dL 4.30 - 5.20 mg/dL [facility] Interpretation and review of laboratory results Normal [facility] PH, IONIZED CALCIUM 7.37 7.31 - 7.46 [facility] Comprehensive metabolic 1998 panelon 06-17-2025 Albumin [Mass/Vol] 3.1 g/dL Low 3.4 - 4.8 g/dL [facility] ALP [Catalytic activity/Vol] 44 U/L 40 - 150 U/L [facility] ALT [Catalytic activity/Vol] U/L NINF - 30 U/L [facility] Anion gap [Moles/Vol] 7 mmol/L 3 - 13 mmol/L [facility] AST [Catalytic activity/Vol] 28 U/L [facility] U/L [facility] Bilirubin [Mass/Vol] 0.3 mg/dL NINF - 1.2 mg/dL [facility] Calcium [Mass/Vol] 8 mg/dL Low 8.8 - 10. 0 mg/dL [facility] Chloride [Moles/Vol] 103 mmol/L 98 - 10 7 mmol/L [facility] CO2 [Moles/Vol] 25 mmol/L 23 - 31 mmol/L [facility] Creatinine [Mass/Vol] 0.72 mg/dL 0.57 - 1.11 mg/dL [facility] GFR/1.73 sq M.predicted (S/P/Bld) [Vol rate/Area] 87.9 mL/min - PINF [facility] Glucose [Mass/Vol] 93 mg/dL 82 - 115 mg/dL [facility] Interpretation and review of laboratory results Abnormal [facility] Potassium [Moles/Vol] 4.1 mmol/L 3.5 - 5.1 mmol/L [facility] Protein [Mass/Vol] 5.7 g/dL Low 6.4 - 8.3 g/dL [facility] Sodium [Moles/Vol] 135 mmol/L Low 136 - 145 mmol/L [facility] Urea nitrogen [Mass/Vol] 10 mg/dL 9 - 23 mg/dL [facility] ECG 12-LEADon 06-17-2025 ECG 12-LEAD IMPRESSION: SINUS RHYTHM Low voltage Nonspecific ST-T changes Electronically Signed On 06-17-2025 16:42:04 EDT by Ladarius Peng Normal [facility] Laboratory - Chemistry and C hemistry - challengeon 06-17-2025 Magnesium [Mass/Vol] 2.1 mg/dL 1.6 - 2 .6 mg/dL [facility] MAGNESIUMon 06-17-2025 Magnesium [Mass/Vol] 2.1 mg/dL Normal 1.6-2.6 [facility] Comment on above: Result Comment: ORDE R COMMENTS: Higher values can be expected in females during menses. Performed By: #### L AB103, LAB17 ####Desktop Support Manager: MIGUEL LEAL ([phone])[facility] ([facility])[address] [place] [address] MRSA BY PCRon 06-17-2025 MRSA BY PCR STAPHYLOCOCCUS AUREU S Reference Not Detected Not Detected MECA GENE Reference Not Detected Not Detected ORDER COMMENTS: No Staphylococcus aureus detected. Negative nasal MRSA PCR has a high negative predictive value for MRSA pneumonia. Consider stopping Vancomycin if no other clinical indication. Contact Antimicrobial Stewardship for further recommendations. Staphylococcus aureus nasal screen by real-time PCR. This test was modified and its performance characteristics determined by [facility]. The U. S. Food and Drug Administration has not approved or cleared this test; however, FDA clearance or approval is not currently required for clinical use. The results are not intended to be used as the sole means for clinical diagnosis or patient management decisions. Normal [facility] Comment on above: Performed By: #### L [id number] #### Desktop Support Manager: MIGUEL LEAL ([phone]) [facility] [address] [place] [address] MRSA DNA VIANEY+probe Ql (Nose) on 06-17-2025 Interpretation and review of laboratory results Normal [facility] mecA gene Not detected Not Detected [facility] Staphylococcus aureus Not detected Not Detected [facility] Part[facility] Magnesium [Mass/Vol]on 06-17 Interpretation and review of laboratory results Normal [facility] No Panel InformationOrdered By: Ladarius Peng on 06-17-2025 P [place] 61 degrees [facility] Work Phone: [phone] OH Interval 167 ms [facility] Work Phone: [phone] QRS [place] 49 degrees [facility] Work Phone: QRSD Interval 101 ms [facility] [employer] Work Phone: QT Interval 436 ms [facility] Work Phone: [phone] QTC Interval 470 ms [employer] [facility] Work Phone: [phone] T Wave [place] 33 degrees [employer] [facility] Work Phone: [facility] Work Phone: No Panel Informationon 06-17 CV EPIPHANY [facility] Left GSV at Knee Diam 1.99 mm [facility] Left GSV BK Prox Diam 2.09 mm [facility] Left GSV Junc Diam 7.35 mm [facility] Left GSV Thigh Dist Diam 2.56 mm [facility] Left GSV Thigh Mid Diam 2.42 mm [facility] Left GSV Thigh Prox Diam 3.4 mm [facility] Left SSV Prox Diam 1.8 mm [facility] Right GSV at Knee Diam 2.23 mm [facility] Right GSV BK Dist Diam 1.33 mm [facility] Right GSV BK Mid Diam 1.52 mm [facility] Right GSV BK Prox Diam 4.12 mm [facility] Right GSV Junc Diam 6.85 mm [facility] Right GSV Thigh Dist Diam 3.04 mm [facility] Right GSV Thigh Mid Diam 2.45 mm [facility] Right GSV Thigh Prox Diam 2.6 mm [facility] Right SSV Dist Diam 1.55 mm [facility] Right SSV Mid Diam 1.77 mm [facility] Right SSV Prox Diam 2.1 mm [facility] CV CPACS Progress Noteon 06-17-2025 Progress Note --- Attestation signed by Sandip Quezada MD at 06/17/2025 11:46 AM IDr. Quezada saw and evaluated the patient on 06/17/2025. I personally obtained the figueroa and critical portions of the history and physical exam. I reviewed the chart and discussed the patient with the resident. I agree with the resident's medical decision making. 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 She initially thought she was having acid reflux-like symptoms but symptoms worsened with radiation to her arm so she presented at [facility]. She was found to have elevated troponin and underwent coronary angiography that showed multivessel coronary artery disease with subtotally occluded RCA, high-grade lesion obtuse marginal branch and obstructive disease in the LAD. She was subsequently transferred to [facility] for bypass consideration. The first night she was here she did have some mild discomfort. The patient has been maintained on nitroglycerin GGT along with heparin GGT. She was evaluated by the CT surgery team were planning on proceeding with bypass later on this week. Overnight the patient did not have any acute events. This morning she does not have any complaints. She is not endorsing any chest discomfort. She has been weaned off of her nitroglycerin gtt. at this time. Her labs are stable. She underwent an echocardiogram that showed low normal LV function with lateral wall motion abnormality. For her presentation with an NSTEMI, we will continue aspirin 81 mg daily and heparin GGT. The patient has been weaned off of the nitroglycerin drip and we can start her on isosorbide mononitrate if needed for chest pain. Continue carvedilol 6.25 mg twice daily and PPI. The patient does have reported intolerance to multiple statins in the past. Will start her on Zetia 10 mg daily. She would be a good candidate for outpatient PCSK9 inhibitors upon discharge. Portions of the information within this encounter were entered using an electronic dictation system. Best attempts were made to proofread the information prior to note completion. Despite the review of the information, some errors may remain. If there are questions related to the information contained within the note please contact the signing provider directly. Sandip Quezada MD, [facility], [facility] Hydroelectric Production Technician [facility] [address] [place] [address] p [phone] f [phone] [email or web address] [facility] CCU PROGRESS NOTE Patient Name: Richie Armas : 1950 Subjective: Richie Armas is a 75 y.o. female with PMH CKD 2, Raynaud's, anxiety/depression, IBS/constipation, GERD, fibromyalgia, hypothyroidism, chronic low back pain S/P lumbar spinal surgery that presented to [facility] on 06/14/2025 from outside facility ([facility]). 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 Patient transferred to [facility] for CABG eval and loaded with ASA, heparin, started on nitroglycerin gtt. Echo on 06/16/25 showed normal LV function, EF 63%. Interval History: No overnight events. Hemodynamically stable. Patient reports bowels are finally starting to move. Does report some difficulty sleeping last night, apparently takes tramadol 100 mg at home for sleep, will start mirtazapine 7.5 mg. Remains on heparin gtt, she is off nitroglycerin gtt without symptoms. Plan for CABG on . Review of Systems: Review of Systems Constitutional: Negative for chills and fever. Respiratory: Negative for cough and shortness of breath. Cardiovascular: Negative for chest pain and leg swelling. Gastrointestinal: Positive for constipation. Negative for abdominal distention, abdominal pain and nausea. Neurological: Negative for headaches. Inpatient Medications: Scheduled Meds:Scheduled Meds[1] Continuous Infusions:Continuous Meds[2] PRN Meds used in the last 24hr: vistaril 25 mg x1, tylenol 650 mg x1 , tizanidine 4 mg x1 Objective: Physical Examination: BP 123/71 Pulse 67 Temp 36.4 ?C (97.5 ?F) (Temporal) Resp 20 Ht 5' 3 (1.6 m) Wt 134 lb 14.7 oz (61.2 kg) SpO2 96% BMI 23.90 kg/m? Intake/Output Summary (Last 24 hours) at 06/17/2025 0616 Last data filed at 06/16/2025 1809 Gross per 24 hour Intake 1578 ml Output -- Net 1578 ml (more content not included)... Normal [facility] Carotid arteries - bilate ralOrdered By: Alyssia Schultz on 07-28-2025 Left CCA dist EDV 15.8 cm/s [facility] Work Phone: Left CCA dist PSV 56.2 cm/s [facility] Work Phone: Left CCA mid EDV 14.6 cm/s [facility] Work Phone: Left CCA mid PSV 53.8 cm/s [facility] Work Phone: Left CCA prox EDV 18.2 cm/s [facility] Work Phone: Left CCA prox PSV 55 cm/s [facility] Work Phone: Left ECA EDV 4.8 cm/s [facility] Work Phone: Left ECA PSV 72.1 cm/s [facility] Work Phone: Left ICA dist EDV 12.2 cm/s [facility] Work Phone: Left ICA dist PSV 55.9 cm/s [facility] Work Phone: Left ICA mid EDV 20.8 cm/s [facility] Work Phone: Left ICA mid PSV 60.3 cm/s [facility] Work Phone: Left ICA prox EDV 14.2 cm/s [facility] Work Phone: Left ICA prox PSV 49.3 cm/s [facility] Work Phone: Left ICA/CCA PSV 1.12 [facility] Work Phone: Left subclavian mid EDV 0 cm/s [facility] Work Phone: Left subclavian mid PSV 94.2 cm/s S [facility] Work Phone: Left vertebral EDV 14.2 cm/s [facility] Work Phone: Left vertebral PSV 46.1 cm/s [facility] Work Phone: Right CCA dist EDV 16.2 cm/s [facility] Work Phone: Right cca dist PSV 53.2 cm/s [facility] Work Phone: Right CCA mid EDV 16.2 cm/s [facility] Work Phone: Right CCA mid PSV 53.2 cm/s [facility] Work Phone: Right CCA prox EDV 9.7 cm/s [facility] Work Phone: Right CCA prox PSV 58.7 cm/s [facility] Work Phone: Right ECA EDV 7.2 cm/s [facility] Work Phone: Right ECA PSV 55 cm/s [facility] Work Phone: Right ICA dist EDV 23.4 cm/s [facility] Work Phone: Right ICA dist PSV 86.9 cm/s [facility] Work Phone: Right ICA mid EDV 20.7 cm/s [facility] Work Phone: Right ICA mid PSV 72.1 cm/s [facility] Work Phone: Right ICA prox EDV 14.6 cm/s [facility] Work Phone: Right ICA prox PSV 64.8 cm/s [facility] Work Phone: Right ICA/CCA PSV 1.63 [facility] Work Phone: Right subclavian mid EDV 4.9 cm/s [facility] Work Phone: Right subclavian mid PSV 120.6 cm/s [facility] Work Phone: Right vertebral EDV 14.2 cm/s [facility] Work Phone: Right vertebral PSV 38.4 cm/s [facility] Work Phone: US Carotid arteries - lazaro jiménez 06-17-2025 CV CPACS Vital signsOrdered By: Lm Changmindi on 06-17-2025 Heart rate 70 /min bpm [facility] Work Phone: aPTT Coag (Bld) [Time]on aPTT Coag (PPP) [Time] 52.5 s High 20.0 - 30.5 s [facility] Interpretation and review of laboratory results Abnormal [facility] [id number] 06-16-2025 [id number] Cardiothoracic Surge ry Note PATIENT NAME: Richie Armas : 1950 (75 y.o.) TODAY'S DATE: 06/16/2025 Objective: BP 111/66 Pulse 63 Temp 36.9 ?C (98.4 ?F) (Temporal) Resp 20 Ht 5' 3 (1.6 m) Wt 133 lb 13.1 oz (60.7 kg) SpO2 95% BMI 23.71 kg/m? Patient tentatively scheduled for CABG with Dr. Johnston for 06/19/25. Will confirm time once OR places on schedule. Discussed with patient. Pre-op testing ordered. -CT chest, bedside spirometry, carotid ultrasounds, vein mapping. Normal [facility] APTTon 06-16-2025 aPTT Coag (Bld) [Time] 60.9 s High 20.0-30.5 Bern[facility] Comment on above: Result Comment: ROCIO Bhandari COMMENTS: NOTE: The therapeutic time for Heparin anticoagulation, based on Xa activity inhibition, is an APTT of 46-80 seconds. Performed By: #### L AB325 ####Desktop Support Manager: MIGUEL LEAL ([phone])[address] CALCIUM, IONIZEDon 5 CALCIUM IONIZED 4.50 mg/dL Normal 4.30-5.20 [facility] Comment on above: Performed By: #### L AB54 ####Desktop Support Manager: MIGUEL LEAL ([phone])[facility])[address] [place] [address] PH, IONIZED CALCIUM 7.43 Normal 7.31-7.46 [facility] Comment on above: Performed By: #### L AB54 ####Desktop Support Manager: MIGUEL LEAL ([phone])[facility])[address] [place] [address] CBC (HEMOGRAM)on 06-16-2025 Erythrocyte distribution width (RBC) [Ratio] 13.4 % Normal 11.5-15.0 [facility] Comment on above: Performed By: #### L AB294 ####Desktop Support Manager: MIGUEL LEAL ([phone])[address] Hematocrit (Bld) [Volume fraction] 38.0 % Normal 35.0-47.0 [facility] Comment on above: Performed By: #### L AB294 ####Desktop Support Manager: MIGUEL LEAL ([phone])[facility])[address] [place] [address] Hemoglobin (Bld) [Mass/Vol] 12.8 g/dL Normal 11.7-16.0 [facility] Comment on above: Performed By: #### L AB294 ####Desktop Support Manager: MIGUEL LEAL ([phone])[facility])[address] [place] [address] MCH (RBC) [Entitic mass] 31.8 pg Normal 26.0-34.0 [facility] Comment on above: Performed By: #### L AB294 ####Desktop Support Manager: MIGUEL LEAL ([phone])[facility])[address] [place] [address] MCHC 33.7 % Normal 30.5-36.0 [facility] Comment on above: Performed By: #### L AB294 ####Desktop Support Manager: MIGUEL LEAL ([phone])[facility])[address] [place] [address] MCV (RBC) [Entitic vol] 94.3 fL Normal 77.0-99.0 S [facility] Comment on above: Performed By: #### L AB294 ####Desktop Support Manager: MIGUEL LEAL ([phone])[facility] ([facility])[address] [place] [address] Platelet mean volume (Bld) [Entitic vol] 10.6 fL Normal 9.0-12.7 [facility] Comment on above: Performed By: #### L AB294 ####Desktop Support Manager: MIGUEL LEAL ([phone])[facility] ([facility])[address] [place] [address] Platelets (Bld) [#/Vol] 217 10*3/uL Normal 140-440 [facility] Comment on above: Performed By: #### L AB294 ####Desktop Support Manager: MIGUEL LEAL ([phone])[facility] ([facility])[address] [place] [address] RBC (Bld) [#/Vol] 4.03 10*6/uL Normal 3.80-5.20 [facility] Comment on above: Performed By: #### L AB294 ####Desktop Support Manager: MIGUEL LEAL ([phone])[facility] ([facility])[address] [place] [address] WBC (Bld) [#/Vol] 8.1 10*3/uL Normal 3.6-10.7 [facility] Comment on above: Performed By: #### L AB294 ####Desktop Support Manager: MIGUEL LEAL ([phone])[facility] ([facility])[address] [place] [address] CBC panel Auto (Bld)on 06-16 Erythrocyte distribution width (RBC) [Ratio] 13.4 % 11.5 - 15.0 % [facility] Hematocrit (Bld) [Volume fraction] 38 % 35.0 - 47.0 % [facility] Hemoglobin (Bld) [Mass/Vol] 12.8 g/dL 11.7 - 16.0 g/dL [facility] Interpretation and review of laboratory results Normal [facility] MCH (RBC) [Entitic mass] 31.8 pg 26.0 - 34.0 pg [facility] MCHC (RBC) [Mass/Vol] 33.7 % 30.5 - 36.0 % [facility] MCV (RBC) [Entitic vol] 94.3 fL 77.0 - 99.0 fL [facility] Platelet mean volume (Bld) [Entitic vol] 10.6 fL 9.0 - 12.7 fL [facility] Platelets (Bld) [#/Vol] 217 10*3/uL 140 - 440 10*3/uL [facility] RBC (Bld) [#/Vol] 4.03 10*6/uL 3.80 - 5.2 0 10*6/uL [facility] WBC (Bld) [#/Vol] 8.1 10*3/uL 3.6 - 10.7 10*3/uL [facility] CK TOTAL AND CKMBon 06-16-20 25 CK [Catalytic activity/Vol] 105 U/L Normal 30-185 [facility] Comment on above: Performed By: #### L AB63 ####Desktop Support Manager: MIGUEL LEAL ([phone])[address] CK.MB [Mass/Vol] 2.5 ng/mL Normal <=3.4 [facility] Comment on above: Result Comment: ROCIO Bhandari COMMENTS: If CK-MB is elevated and the ratio of CK-MB to total CK (relative index) is more than 3, then it is likely that the heart was damaged. A high CK with a relative index below this value suggests that skeletal muscles were damaged. Performed By: #### L AB63 ####Desktop Support Manager: MIGUEL LEAL ([phone])[facility])[address] [place] [address] RELATIVE INDEX 2.4 % Normal <=3.0 [facility] Comment on above: Performed By: #### L AB63 ####Desktop Support Manager: MIGUEL LEAL ([phone])[facility])[address] [place] [address] [place] CK [Catalytic activity/Vol] 103 U/L Normal 30-185 [facility] Comment on above: Performed By: #### L AB63 ####Desktop Support Manager: MIGUEL LEAL ([phone])[facility])[address] [place] [address] [place] CK.MB [Mass/Vol] 2.7 ng/mL Normal <=3.4 [facility] Comment on above: Result Comment: ORDE R COMMENTS: If CK-MB is elevated and the ratio of CK-MB to total CK (relative index) is more than 3, then it is likely that the heart was damaged. A high CK with a relative index below this value suggests that skeletal muscles were damaged. Performed By: #### L AB63 ####Desktop Support Manager: MIGUEL LEAL ([phone])[facility] ([facility])[address] [place] [address] RELATIVE INDEX 2.6 % Normal <=3.0 [facility] Comment on above: Performed By: #### L AB63 ####Desktop Support Manager: MIGUEL LEAL ([phone])[facility] ([facility])[address] [place] [address] [place] CK [Catalytic activity/Vol] 99 U/L Normal 30-185 [facility] [facility] Comment on above: Performed By: #### L AB63, LAB17, [id number] ####Desktop Support Manager: MIGUEL LEAL ([phone])[facility])[address] [place] [address] [place] CK.MB [Mass/Vol] 2.5 ng/mL Normal <=3.4 [facility] Comment on above: Result Comment: ORDE R COMMENTS: If CK-MB is elevated and the ratio of CK-MB to total CK (relative index) is more than 3, then it is likely that the heart was damaged. A high CK with a relative index below this value suggests that skeletal muscles were damaged. Performed By: #### L AB63, LAB17, [id number] ####Desktop Support Manager: MIGUEL LEAL ([phone])[facility] ([facility])[address] [place] [address] [place] RELATIVE INDEX 2.5 % Normal <=3.0 [facility] Comment on above: Performed By: #### Jv CROW, LAB17, [id number] ####Desktop Support Manager: MIGUEL LEAL ([phone])[facility] ([facility])[address] [place] [address] CK.total/Creatine kinase.MB [Catalytic ratio]on 06-16-2025 CK [Catalytic activity/Vol] 105 U/L 30 - 185 U/L [facility] CK.MB [Mass/Vol] 2.5 ng/mL NINF - 3.4 ng/mL [facility] Interpretation and review of laboratory results Normal [facility] RELATIVE INDEX 2.4 % NINF - 3.0 % [facility] CK [Catalytic activity/Vol] 103 U/L 30 - 185 U/L [facility] CK.MB [Mass/Vol] 2.7 ng/mL [facility] - 3.[facility] ng/mL [facility] Interpretation and review of laboratory results Normal [facility] RELATIVE INDEX 2.6 % NINF - 3.0 % [facility] CK [Catalytic activity/Vol] 99 U/L 30 - 185 U/L [facility] CK.MB [Mass/Vol] 2.5 ng/mL [facility] - 3.4 ng/mL [facility] Interpretation and review of laboratory results Normal [facility] RELATIVE INDEX 2.5 % [facility] - 3.0 % [facility] COMPREHENSIVE METABOLIC PANE [place] 06-16-2025 Albumin [Mass/Vol] 3.4 g/dL Normal 3.4-4.8 [facility] Comment on above: Performed By: #### Jv CROW, LAB17, [id number] ####Desktop Support Manager: MIGUEL LEAL ([phone])[facility] [place] [address] [place] ALP [Catalytic activity/Vol] 51 U/L Normal 40-150 [facility] Comment on above: Performed By: #### Jv WALLACE63, LAB17, [id number] ####Desktop Support Manager: MIGUEL LEAL ([phone])[facility] ([facility])[address] [place] [address] [place] ALT [Catalytic activity/Vol] 6 U/L Normal <30 [facility] Comment on above: Performed By: #### Jv CROW, LAB17, [id number] ####Desktop Support Manager: MIGUEL LEAL ([phone])[facility] ([facility])[address] [place] [address] Anion gap [Moles/Vol] 8 mmol/L Normal 3-13 [facility] Comment on above: Performed By: #### Jv CROW, LAB17, [id number] ####Desktop Support Manager: MIGUEL LEAL ([phone])[facility] ([facility])[address] [place] [address] [place] AST [Catalytic activity/Vol] 28 U/L Normal <34 [facility] Comment on above: Performed By: #### Jv CROW, LAB17, [id number] ####Desktop Support Manager: MIGUEL LEAL ([phone])[facility] ([facility])[address] [place] [address] [place] Bilirubin [Mass/Vol] 0.2 mg/dL Normal <1.2 [facility] Comment on above: Performed By: #### Jv CROW, LAB17, [id number] ####Desktop Support Manager: MIGUEL LEAL ([phone])[facility] ([facility])[address] [place] [address] Calcium [Mass/Vol] 8.6 mg/dL Low 8.8-10.0 [facility] Comment on above: Performed By: #### Jv CROW, LAB17, [id number] ####Desktop Support Manager: MIGUEL LEAL ([phone])[facility] ([facility])[address] [place] [address] [place] Chloride [Moles/Vol] 100 mmol/L Normal 98-107 [facility] Comment on above: Performed By: #### vJ CROW, LAB17, [id number] ####Desktop Support Manager: MIGUEL LEAL ([phone])[facility] ([facility])[address] [place] [address] [place] CO2 [Moles/Vol] 24 mmol/L Normal 23-31 [facility] Comment on above: Performed By: #### Jv CROW, LAB17, [id number] ####Desktop Support Manager: MIGUEL LEAL ([phone])[facility])[address] [place] [address] Creatinine [Mass/Vol] 0.68 mg/dL Normal 0.57-1.11 [facility] Comment on above: Performed By: #### Jv CROW, LAB17, [id number] ####Desktop Support Manager: MIGUEL LEAL ([phone])[facility])[address] [place] [address] GLOMERULAR FILTRATION RATE ML/MIN/1.73 SQ M.PREDICTED >90.0 Normal >60.0 [facility] Comment on above: Result Comment: Calc ulation based on the Chronic Kidney Disease Epidemiology Collaboration (CKD-EPI) equation refit without adjustment for race Performed By: #### Jv CROW, LAB17, [id number] ####Desktop Support Manager: MIGUEL LEAL ([phone])[facility])[address] [place] [address] Glucose [Mass/Vol] 108 mg/dL Normal 82-115 [facility] Comment on above: Performed By: #### Jv CROW, LAB17, [id number] ####Desktop Support Manager: MIGUEL LEAL ([phone])[address] Potassium [Moles/Vol] 4.0 mmol/L Normal 3.5-5.1 [facility] Comment on above: Result Comment: [facility] potassium values may be up to 0.5 mmol/L lower than serum values. Performed By: #### Jv WALLACE63, LAB17, [id number] ####Desktop Support Manager: MIGUEL LEAL ([phone])[facility])[address] [place] [address] Protein [Mass/Vol] 6.2 g/dL Low 6.4-8.3 [facility] Comment on above: Performed By: #### Jv CROW, LAB17, [id number] ####Desktop Support Manager: MIGUEL LEAL ([phone])[facility] ([facility])[address] [place] [address] Sodium [Moles/Vol] 132 mmol/L Low 136-145 [facility] Comment on above: Performed By: #### L AB63, LAB17, [id number] ####Desktop Support Manager: MIGUEL LEAL ([phone])[facility])[address] [place] [address] Urea nitrogen [Mass/Vol] 16 mg/dL Normal 9-23 [facility] Comment on above: Performed By: #### L AB63, LAB17, [id number] ####Desktop Support Manager: MIGUEL LEAL ([phone])[facility])[address] [place] [address] CT Chest WO contraston 06-16 Radiology Study observation (narrative) [facility] Calcium.ionized [Moles/Vol]o n 06-16-2025 Calcium.ionized (Bld) [Moles/Vol] 4.5 mg/dL 4.30 - 5.20 mg/dL [facility] Interpretation and review of laboratory results Normal [facility] PH, IONIZED CALCIUM 7.43 7.31 - 7.46 [facility] Comprehensive metabolic 1998 panelon 06-16-2025 Albumin [Mass/Vol] 3.4 g/dL 3.4 - 4.8 g/dL [facility] ALP [Catalytic activity/Vol] 51 U/L 40 - 150 U/L [facility] ALT [Catalytic activity/Vol] 6 U/L NINF - 30 U/L [facility] Anion gap [Moles/Vol] 8 mmol/L 3 - 13 mmol/L [facility] AST [Catalytic activity/Vol] 28 U/L NINF - 34 U/L [facility] Bilirubin [Mass/Vol] 0.2 mg/dL NINF - 1.2 mg/dL [facility] Calcium [Mass/Vol] 8.6 mg/dL Low 8.8 - 10. 0 mg/dL [facility] Chloride [Moles/Vol] 100 mmol/L 98 - 10 7 mmol/L [facility] CO2 [Moles/Vol] 24 mmol/L 23 - 31 mmol/L [facility] Creatinine [Mass/Vol] 0.68 mg/dL 0.57 - 1.11 mg/dL [facility] GFR/1.73 sq M.predicted (S/P/Bld) [Vol rate/Area] - PINF [facility] Glucose [Mass/Vol] 108 mg/dL 82 - 115 mg/dL [facility] Potassium [Moles/Vol] 4 mmol/L 3.5 - 5.1 mmol/L [facility] Protein [Mass/Vol] 6.2 g/dL Low 6.4 - 8.3 g/dL [facility] Sodium [Moles/Vol] 132 mmol/L Low 136 - 145 mmol/L [facility] Urea nitrogen [Mass/Vol] 16 mg/dL 9 - 23 mg/dL [facility] ECG 12-LEADon 06-16-2025 ECG 12-LEAD IMPRESSION: Sinus rhythm Probable left atrial enlargement Right axis deviation Low voltage, precordial leads Nonspecific T abnrm, anterolateral leads Electronically Signed On 06-16-2025 09:44:30 EDT by Selvin Lynch [facility] ECG 12-LEAD IMPRESSION: Sinus bradycardia Low voltage with right axis deviation Repol abnrm suggests ischemia, anterolateral Electronically Signed On 06-16-2025 09:26:23 EDT by Selvin Lynch [facility] ECG 12-LEAD IMPRESSION: Sinus rhythm Low voltage, extremity leads Nonspecific st/t changes Electronically Signed On 06-16-2025 09:24:39 EDT by [facility] HEMOGLOBIN A1Con 06-16-2025 Glucose [Mass/Vol] 120 mg/dL Normal [facility] Comment on above: Result Comment: ROCIO Bhandari COMMENTS: HbA1c values of 5.7-6.4 percent indicate an increased risk for developing diabetes mellitus. HbA1c values greater than or equal to 6.5 percent are diagnostic of diabetes mellitus. For diagnosis of diabetes in individuals without unequivocal hyperglycemia, results should be confirmed by repeat testing. Performed By: #### L AB90 ####Desktop Support Manager: MIGUEL LEAL ([phone])[facility] ([address] HEMOGLOBIN A1C 5.8 %HbA1C High <5.7 [facility] Comment on above: Result Comment: Norm al less than 5.7% Prediabetes 5.7% to 6.4% Diabetes 6.5% or higher --HgbA1C levels may not be accurate in patients who have renal disease, received recent blood transfusions, are anemic, or who have dyshemoglobinemia. Performed By: #### L AB90 ####Desktop Support Manager: MIGUEL LEAL ([phone])[facility] ([employer])[address] [place] [address] Laboratory - Chemistry and C hemistry - challengeon 06-16-2025 Average glucose Estimated from glycated hemoglobin (Bld) [Mass/Vol] 120 mg/dL [facility] Magnesium [Mass/Vol] 2.7 mg/dL High 1.6 - 2 .6 mg/dL [facility] Laboratory - Hematology and Cell countson 06-16-2025 HbA1c (Bld) [Mass fraction] 5.8 % High NINF [facility] MAGNESIUMon 06-16-2025 Magnesium [Mass/Vol] 2.7 mg/dL High 1.6-2.6 [facility] Comment on above: Result Comment: ROCIO Bhandari COMMENTS: Higher values can be expected in females during menses. Performed By: #### L AB63, LAB17, [id number] ####Desktop Support Manager: MIGUEL LEAL ([phone])[facility] ([facility] [place] [address] Magnesium [Mass/Vol]on 06-16 [employer] [facility] No Panel InformationOrdered By: Selvin Lynch on 06-16-2025 P [place] 59 degrees [facility] Work Phone: [phone] [place] Interval 160 ms [facility] Work Phone: [phone] QRS [place] 100 degrees [facility] Work Phone: [phone] QRSD Interval 89 ms [facility] Work Phone: [phone] QT Interval 404 ms [facility] Work Phone: [phone] QTC Interval 440 ms [facility] Work Phone: [phone] T Wave [place] 0 degrees [facility] Work Phone: [phone] [facility] Work Phone: [phone] No Panel Informationon 06-16 CV EPIPHANY [facility] P [place] 60 degrees [facility] [place] Interval 173 ms [facility] QRS [place] 73 degrees [facility] QRSD Interval 103 ms [facility] QT Interval 480 ms [facility] QTC Interval 473 ms [facility] T Wave [place] 181 degrees [facility] CV EPIPHANY [facility] P [place] 59 degrees [facility] [place] Interval 171 ms [facility] QRS [place] 68 degrees [facility] QRSD Interval 101 ms [facility] Interval 467 ms [facility] QTC Interval 473 ms [facility] T Wave [place] 0 degrees [facility] CV EPIPHANY [facility] Interpretation and review of laboratory results Abnormal [facility] Interpretation and review of laboratory results Abnormal [facility] Progress Noteon 06-16-2025 Progress Note Nutrition rescreen completed. Chart reviewed. Patient to be monitored and followed by the diet marine propulsion technician. BEENA Alvarado Normal [facility] System [facility] Progress Note --- Attestation signed by Selvin Lynch MD at 06/16/2025 3:01 PM I, Dr. Lynch, saw and evaluated the patient. I personally obtained the figueroa and critical portions of the history and physical exam. I reviewed the chart and discussed the patient with the resident. I agree with the resident's medical decision making. Assessment/Plan: Patient without past cardiac history, admitted with NSTEMI to outside hospital. Cath showed complex 3v CAD. Transferred here for evaluation for possible CABG. Placed on nitro and heparin drips for symtpoms. Did have some fluctuating chest pressure overnight, nitro uptitrated with some relief. Sitting comfortably in chair as we talk. Plan for CABG. CT surgery has seen. Working on date. Continue heparin and nitro drips. [facility] CCU PROGRESS NOTE Patient Name: Richie Armas : 1950 Subjective: Richie Armas is a 75 y.o. female with PMH CKD 2, Raynaud's, anxiety/depression, IBS/constipation, GERD, fibromyalgia, hypothyroidism, chronic low back pain S/P lumbar spinal surgery that presented to [facility] on 06/14/2025 from outside facility ([facility]). 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 Patient transferred to [facility] for CABG eval and loaded with ASA, heparin, started on nitroglycerin gtt. Interval History: Hemodynamically stable. Around 0500, pt started to complain of reflux-like symptoms with radiation to L jaw, restarted on nitroglycerin gtt with titration to cp. Currently on nitroglycerin gtt 85 with resolution of symptoms. Reports 2 very small bowel movements. Provided fleets enema without relief, pt now requesting, soap suds enema. Review of Systems: Review of Systems Constitutional: Negative for chills and fever. Respiratory: Negative for cough and shortness of breath. Cardiovascular: Negative for chest pain and leg swelling. Gastrointestinal: Positive for abdominal distention and constipation. Negative for abdominal pain and nausea. Neurological: Negative for headaches. Inpatient Medications: Scheduled Meds:Scheduled Meds[1] Continuous Infusions:Continuous Meds[2] PRN Meds used in the last 24hr: vistaril 25 mg x1, tylenol 650 mg x1 Objective: Physical Examination: BP 111/66 Pulse 63 Temp 36.9 ?C (98.4 ?F) (Temporal) Resp 20 Ht 5' 3 (1.6 m) Wt 133 lb 13.1 oz (60.7 kg) SpO2 95% BMI 23.71 kg/m? Intake/Output Summary (Last 24 hours) at 06/16/2025 1114 Last data filed at 06/16/2025 0437 Gross per 24 hour Intake 268.4 ml Output -- Net 268.4 ml Physical Exam Constitutional: General: She is not in acute distress. Cardiovascular: Rate and Rhythm: Normal rate and regular rhythm. Pulmonary: Effort: Pulmonary effort is normal. Breath sounds: Normal breath sounds. Abdominal: Palpations: Abdomen is soft. Tenderness: There is no abdominal tenderness. Musculoskeletal: Right lower leg: No edema. Left lower leg: No edema. Skin: General: Skin is warm and dry. Neurological: General: No focal deficit present. Mental Status: She is alert. Mental status is at baseline. Pertinent Labs: BMP: Lab Results Component Value Date NA 132 (L) 06/16/2025 K 4.0 06/16/2025 CL 100 06/16/2025 CO2 24 06/16/2025 BUN 16 06/16/2025 CREATININE 0.68 06/16/2025 GLUCOSE 108 06/16/2025 CALCIUM 8.6 (L) 06/16/2025 MG 2.7 (H) 06/16/2025 CBC: Lab Results Component Value Date WBC 8.1 06/16/2025 HGB 12.8 06/16/2025 HCT 38.0 06/16/2025 MCV 94.3 06/16/2025 PLT 217 06/16/2025 Cardiac profile: CK Date Value Ref Range Status 06/16/2025 103 30 - 185 U/L Final 06/16/2025 99 30 - 185 U/L Final 06/15/2025 104 30 - 185 U/L Final 06/15/2025 88 30 - 185 U/L Final 06/15/2025 93 30 - 185 U/L Final 06/15/2025 85 30 - 185 U/L Final 06/14/2025 95 30 - 185 U/L Final CKMB Date Value Ref Range Status 06/16/2025 2.7 <=3.4 ng/mL Final 06/16/2025 2.5 <=3.4 ng/mL Final 06/15/2025 2.7 <=3.4 ng/mL Final 06/15/2025 2.3 <=3.4 ng/mL Final 06/15/2025 2.6 <=3.4 ng/mL Final 06/15/2025 2.3 <=3.4 ng/mL Final 06/14/2025 2.7 <=3.4 ng/mL Final Coagulation: No results found for: INR, PTT Lipid panel: Lab Results Component Value Date CHOL 295 (H) 06/15/2025 HDL 79 06/15/2025 TRIG 129 06/15/2025 Other: Lab Results Component Value Date HGBA1C 5.8 (H) 06/16/2025 TSH 2.71 06/14/2025 Chest Imaging: CXR: Cardiac Studies: Telemetry findings reviewed: NSR ECG: Encounter Date: 06/14/25 ECG 12 lead Result Value Heart Rate 61 QRSD Interval 101 (more content not included)... Normal [facility] US Heart TransthoracicOrdere d By: Darius Patterson on 06-16-2025 Aortic Arch 2.4 cm [facility] Work Phone: Aortic Sinus Valsalva 3.4 cm Sum [facility] Work Phone: Aortic Sinus Valsalva Index 2.06 cm/m2 [facility] Work Phone: Aortic valve Mean systole pressure gradient by US.doppler derived full Bernoulli 3 mmHg [facility] Work Phone: Aortic valve Orifice area by US 2.8 cm2 [facility] Work Phone: Aortic valve Peak systolic flow by US.doppler 0.9 m/s [facility] Work Phone: Ascending Aorta 2.8 cm [facility] Work Phone: Ascending Aorta Index 1.7 cm/m2 [facility] Work Phone: AV Area by Peak Velocity 2.2 cm2 [facility] Work Phone: AV Area by VTI 2.2 cm2 [facility] Work Phone: AV AT 91.34 ms [facility] Work Phone: AV Peak Gradient 6 mmHg [facility] Work Phone: AV Peak Velocity 1.2 m/s [facility] Work Phone: AV Velocity Ratio 0.75 [facility] Work Phone: AV VTI 25.4 cm [facility] Work Phone: [phone] CHRISTOPHE/BSA Peak Velocity 1.3 cm2/m2 [facility] Work Phone: [phone] CHRISTOPHE/BSA VTI 1.3 cm2/m2 [facility] Work Phone: [phone] E/E' Lateral 9.6 [facility] Work Phone: [phone] E/E' Ratio (Averaged) 9.6 [facility] Work Phone: [phone] E/E' Septal 9.6 [facility] Work Phone: [phone] EF Physician 50 % [facility] Work Phone: [phone] Est. RA Pressure 3 mmHg [facility] Work Phone: [phone] Fractional Shortening 2D 33 % 28 - 44 % [facility] Phone: [phone] Global Longitudinal Strain -16.3 % [facility] Work Phone: [phone] Global Longitudinal Strain -14.8 % [facility] Work Phone: [phone] Global Longitudinal Strain -14 % [facility] Work Phone: [phone] Global Longitudinal Strain -15.1 % [facility] Phone: [phone] IVC Diameter 1.8 cm [facility] Work Phone: [phone] IVSd 0.7 cm 0.6 - 0.9 cm [facility] Work Phone: [phone] Diameter 2.5 cm [facility] Work Phone: [phone] LA Size Index 1.52 cm/m2 [facility] [employer] Work [phone] LA Volume 2C 30 mL 22 - 52 mL [facility] Work Phone: [phone] LA Volume 4C 42 mL 22 - 52 mL [facility] Work Phone: [phone] LA Volume A/L 40 mL [facility] [employer] Work Phone: [phone] LA Volume BP 36 mL 22 - 52 mL [facility] Work Phone: [phone] LA Volume Index 2C 18 mL/m2 16 - 34 mL/m2 [facility] Work Phone: LA Volume Index 4C 25 mL/m2 16 - 34 mL/m2 [facility] Work Phone: [phone] LA Volume Index A/L 24 mL/m2 16 - 34 mL/m2 [facility] Work Phone: [phone] LA Volume Index BP 22 ml/m2 16 - 34 ml/m2 [facility] Work Phone: [phone] Left ventricular Ejection fraction by US.2D+Calculated by biplane method of disks 63 % 55 - 100 % [facility] Work Phone: [phone] LV E' Lateral Velocity 5 cm/s [facility] Work Phone: [phone] LV E' Septal Velocity 5 cm/s [facility] Work Phone: LV EDV A2C 76 mL [facility] Work Phone: LV EDV A4C 77 mL [facility] Work Phone: LV EDV BP 77 mL 56 - 104 mL [facility] Work Phone: [phone] LV EDV Index A2C 46 mL/m2 [facility] Work Phone: [phone] LV EDV Index A4C 47 mL/m2 [facility] Work Phone: LV EDV Index BP 47 mL/m2 [facility] Work Phone: LV Ejection Fraction A2C 63 % [facility] Work Phone: LV Ejection Fraction A4C 62 % [facility] Work Phone: [phone] LV ESV A2C 28 mL [facility] Work Phone: [phone] LV ESV A4C 29 mL [facility] Work Phone: [phone] LV ESV BP 29 mL 19 - 49 mL [facility] Work Phone: [phone] LV ESV Index A2C 17 mL/m2 [facility] Work Phone: [phone] LV ESV Index A4C 18 mL/m2 [facility] Work Phone: [phone] LV ESV Index BP 18 mL/m2 [facility] Work Phone: [phone] LV Mass 2D 93 g 67 - 162 g [facility] Work Phone: [phone] LV Mass 2D Index 56.4 g/m2 43 - 95 g/m2 [facility] Work Phone: [phone] LV RWT Ratio 0.38 [facility] Work Phone: [phone] LVIDd 4.2 cm 3.9 - 5.3 cm [facility] Work [phone] LVIDd Index 2.55 cm/m2 [facility] Work Phone: [phone] LVIDs 2.8 cm [facility] Work [phone] LVIDs Index 1.7 cm/m2 [facility] Work Phone: [phone] LVOT Cardiac Output 3.7 liter/mi nut e [employer] Phone: [phone] LVOT Diameter 1.9 cm [facility] [employer] Work Phone: [phone] LVOT Mean Gradient 2 mmHg [facility] Work Phone: [phone] LVOT Peak Gradient 3 mmHg [facility] Work Phone: [phone] LVOT Peak Velocity 0.9 m/s [facility] Phone: [phone] LVOT Stroke Volume Index 33 mL/m2 [facility] Phone: [phone] LVOT SV 54.4 ml [facility] Work Phone: [phone] LVOT VTI 19.2 cm [facility] Work Phone: [phone] LVOT:AV VTI Index 0.76 [facility] [employer] Work Phone: [phone] LVPWd 0.8 cm 0.6 - 0.9 cm [facility] Work Phone: [phone] MV A Velocity 0.98 m/s [facility] Work Phone: [phone] MV E Velocity 0.48 m/s [facility] Work Phone: [phone] MV E Wave Deceleration Time 311.6 ms [facility] Work Phone: [phone] MV E/A 0.49 [facility] Work Phone: [phone] RA Area 4C 19.3 mL [facility] Work Phone: RA Area 4C 17.9 mL [facility] Work Phone: RV Basal Dimension 3 cm [facility] Work Phone: RV Free Wall Peak S' 10 cm/s [facility] Work Phone: RV Longitudinal Dimension 5 cm [facility] Work Phone: RV Mid Dimension 2.3 cm [facility] Work Phone: RVSP 22 mmHg [facility] Work Phone: Sinotubular Junction 2.3 cm [facility] Work Phone: TAPSE 2 cm 1.7 cm [facility] Work Phone: TR Max Velocity 2.19 m/s [facility] Work Phone: TR Peak Gradient 19 mmHg [facility] Work Phone: [facility] Work Phone: US Heart Transthoracicon CV CPACS Vital signsOrdered By: Selvin Lynch on 06-16-2025 Heart rate 71 /min bpm [facility] Work Phone: Vital signson 06-16-2025 Heart rate 58 /min bpm [facility] Heart rate 61 /min bpm [facility] XR ABDOMEN 1 VIEWon 06-16-20 25 XR ABDOMEN 1 VIEW [facility] 1950 [id number] Exam Date/Time: 06/16/2025 13:43 Procedure: XR ABDOMEN 1 VIEW Ordering Provider: LYNCH PETER Reason For Exam: Constipation CLINICAL INDICATION: Constipation COMPARISON: None TECHNIQUE: Single AP view of the abdomen. FINDINGS: Dilated stool-filled colon measuring up to 8.5 cm in diameter. No pneumatosis, portal venous gas, or pneumoperitoneum is identified within the limits of examination. No masses or suspicious calcifications are seen. Multilevel degenerative changes of the lumbar spine with L4-L5 posterior fixation and disc spacer.. IMPRESSION: Dilated stool-filled colon most suggestive of constipation or possible partial obstruction. Report Dictated on Electronically Signed By: César Pizarro DR Electronically Signed Date/Time: 06/16/2025 4:56 PM EDT Normal [facility] XR Abdomen Single viewon [facility] Radiology Study observation (narrative) [facility] XR Abdomen Single viewOrdere d By: César Pizarro on 06-16-2025 [facility] Work Phone: aPTT Coag (Bld) [Time]on aPTT Coag (PPP) [Time] 60.9 s High 20.0 - 30.5 s [facility] Interpretation and review of laboratory results Abnormal [facility] APTTon 06-15-2025 aPTT Coag (Bld) [Time] 61.7 s High 20.0-30.5 [facility] Comment on above: Result Comment: ROCIO Bhandari COMMENTS: NOTE: The therapeutic time for Heparin anticoagulation, based on Xa activity inhibition, is an APTT of 46-80 seconds. Performed By: #### L AB325 ####Desktop Support Manager: MIGUEL LEAL ([phone])[address] aPTT Coag (Bld) [Time] 47.0 s High 20.0-30.5 [facility] Comment on above: Result Comment: ROCIO Bhandari COMMENTS: NOTE: The therapeutic time for Heparin anticoagulation, based on Xa activity inhibition, is an APTT of 46-80 seconds. Performed By: #### L AB325 ####Desktop Support Manager: MIGUEL LEAL ([phone])[facility] ([address] aPTT Coag (Bld) [Time] 63.2 s High 20.0-30.5 [facility] Comment on above: Result Comment: ROCIO Bhandari COMMENTS: NOTE: The therapeutic time for Heparin anticoagulation, based on Xa activity inhibition, is an APTT of 46-80 seconds. Performed By: #### L AB325 ####Desktop Support Manager: MIGUEL [phone])[facility])[address] [place] [address] aPTT Coag (Bld) [Time] 39.3 s High 20.0-30.5 [facility] Comment on above: Result Comment: ROCIO Bhandari COMMENTS: NOTE: The therapeutic time for Heparin anticoagulation, based on Xa activity inhibition, is an APTT of 46-80 seconds. Performed By: #### L AB325 ####Desktop Support Manager: MIGUEL LEAL ([phone])[facility] ([facility])[address] [place] [address] CALCIUM, IONIZEDon CALCIUM IONIZED 4.50 mg/dL Normal 4.30-5.20 [facility] Comment on above: Performed By: #### L AB54 ####Desktop Support Manager: MIGUEL LEAL ([phone])[facility])[address] [place] [address] PH, IONIZED CALCIUM 7.40 Normal 7.31-7.46 [facility] Comment on above: Performed By: #### L AB54 ####Desktop Support Manager: MIGUEL LEAL ([phone])[facility])[address] [place] [address] CBC (HEMOGRAM)on 06-15-2025 Erythrocyte distribution width (RBC) [Ratio] 13.4 % Normal 11.5-15.0 [facility] Comment on above: Performed By: #### L AB294 ####Desktop Support Manager: MIGUEL LEAL ([phone])[facility])[address] [place] [address] Hematocrit (Bld) [Volume fraction] 38.8 % Normal 35.0-47.0 [facility] Comment on above: Performed By: #### L AB294 ####Desktop Support Manager: MIGUEL LEAL ([phone])[facility])[address] [place] [address] Hemoglobin (Bld) [Mass/Vol] 12.5 g/dL Normal 11.7-16.0 [facility] Comment on above: Performed By: #### L AB294 ####Desktop Support Manager: MIGUEL LEAL ([phone])[facility])[address] [place] [address] MCH (RBC) [Entitic mass] 30.9 pg Normal 26.0-34.0 [facility] Comment on above: Performed By: #### L AB294 ####Desktop Support Manager: MIGUEL LEAL ([phone])[facility])[address] [place] [address] MCHC 32.2 % Normal 30.5-36.0 [facility] Comment on above: Performed By: #### L AB294 ####Desktop Support Manager: MIGUEL LEAL ([phone])[facility])[address] [place] [address] MCV (RBC) [Entitic vol] 95.8 fL Normal 77.0-99.0 S [facility] Comment on above: Performed By: #### L AB294 ####Desktop Support Manager: MIGUEL LEAL ([phone])[facility])[address] [place] [address] Platelet mean volume (Bld) [Entitic vol] 10.5 fL Normal 9.0-12.7 [facility] Comment on above: Performed By: #### L AB294 ####Desktop Support Manager: MIGUEL LEAL ([phone])[facility])[address] [place] [address] Platelets (Bld) [#/Vol] 211 10*3/uL Normal 140-440 [facility] Comment on above: Performed By: #### L AB294 ####Desktop Support Manager: MIGUEL LEAL ([phone])[facility])[address] [place] [address] RBC (Bld) [#/Vol] 4.05 10*6/uL Normal 3.80-5.20 [facility] Comment on above: Performed By: #### L AB294 ####Desktop Support Manager: MIGUEL LEAL ([phone])[facility] ([facility])[address] [place] [address] WBC (Bld) [#/Vol] 5.7 10*3/uL Normal 3.6-10.7 [facility] Comment on above: Performed By: #### L AB294 ####Desktop Support Manager: MIGUEL LEAL ([phone])[facility] ([facility])[address] [place] [address] CBC W/Diff, Automatedon 07-2 Absolute Neut Normal 2.0-7.7 [facility] Comment on above: Result Comment: Canc elled via OM: Order cancelled - Patient discharged Performed By: #### L 7000.0700 #### [facility] [address] [place], [address] HCT Normal 37-47 [facility] Comment on above: Result Comment: Canc elled via OM: Order cancelled - Patient discharged Performed By: #### L 7000.0700 #### [facility] [address] [place], [address] HGB Normal 12.0-15.0 [facility] Comment on above: Result Comment: Canc elled via OM: Order cancelled - Patient discharged Performed By: #### L 7000.0700 #### [facility] [address] [place], [address] MCH Normal 27.0-32.0 [facility] Comment on above: Result Comment: Canc elled via OM: Order cancelled - Patient discharged Performed By: #### L 7000.0700 #### [facility] [address] [place], [address] MCHC Normal 32-36 [facility] Comment on above: Result Comment: Canc elled via OM: Order cancelled - Patient discharged Performed By: #### L 7000.0700 #### [facility] [address] [place], [address] MCV Normal 81-99 [facility] Comment on above: Result Comment: Canc elled via OM: Order cancelled - Patient discharged Performed By: #### L 7000.0700 #### [facility] [address] [place], [address] NEUT% Normal 47-70 [facility] Comment on above: Result Comment: Canc elled via OM: Order cancelled - Patient discharged Performed By: #### L 7000.0700 #### [facility] [address] [place], [address] PLT Normal 150-450 [facility] Comment on above: Result Comment: Canc elled via OM: Order cancelled - Patient discharged Performed By: #### L 7000.0700 #### [facility] [address] [place], [address] RBC Normal 4.2-5.4 [facility] Comment on above: Result Comment: Canc elled via OM: Order cancelled - Patient discharged Performed By: #### L 7000.0700 #### [facility] [address] [place], [address] RDW CV Normal 11.6-14.6 [facility] Comment on above: Result Comment: Canc elled via OM: Order cancelled - Patient discharged Performed By: #### L 7000.0700 #### [facility] [address] [place], [address] RDW SD Normal 35.1-43.9 [facility] Comment on above: Result Comment: Canc elled via OM: Order cancelled - Patient discharged Performed By: #### L 7000.0700 #### [facility] [address] [place], [address] WBC Normal 4.4-11.0 [facility] Comment on above: Result Comment: Canc elled via OM: Order cancelled - Patient discharged Performed By: #### L 7000.0700 #### [facility] [address] [place], [address] CBC panel Auto (Bld)on 06-15 Erythrocyte distribution width (RBC) [Ratio] 13.4 % 11.5 - 15.0 % [facility] Hematocrit (Bld) [Volume fraction] 38.8 % 35.0 - 47.0 % [facility] Hemoglobin (Bld) [Mass/Vol] 12.5 g/dL 11.7 - 16.0 g/dL [facility] Interpretation and review of laboratory results Normal [facility] MCH (RBC) [Entitic mass] 30.9 pg 26.0 - 34.0 pg [facility] MCHC (RBC) [Mass/Vol] 32.2 % 30.5 - 36.0 % [facility] MCV (RBC) [Entitic vol] 95.8 fL 77.0 - 99.0 fL [facility] Platelet mean volume (Bld) [Entitic vol] 10.5 fL 9.0 - 12.7 fL [facility] Platelets (Bld) [#/Vol] 211 10*3/uL 140 - 440 10*3/uL [facility] RBC (Bld) [#/Vol] 4.05 10*6/uL 3.80 - 5.2 0 10*6/uL [facility] WBC (Bld) [#/Vol] 5.7 10*3/uL 3.6 - 10.7 10*3/uL [facility] CK TOTAL AND CKMBon 06-15-20 25 CK [Catalytic activity/Vol] 104 U/L Normal 30-185 [facility] Comment on above: Performed By: #### L AB63 ####Desktop Support Manager: MIGUEL LEAL ([phone])[address] CK.MB [Mass/Vol] 2.7 ng/mL Normal <=3.4 [facility] Comment on above: Result Comment: ROCIO Bhandari COMMENTS: If CK-MB is elevated and the ratio of CK-MB to total CK (relative index) is more than 3, then it is likely that the heart was damaged. A high CK with a relative index below this value suggests that skeletal muscles were damaged. Performed By: #### L AB63 ####Desktop Support Manager: MIGUEL LEAL ([phone])[facility])[address] [place] [address] RELATIVE INDEX 2.6 % Normal <=3.0 [facility] Comment on above: Performed By: #### L AB63 ####Desktop Support Manager: MIGUEL LEAL ([phone])[facility])[address] [place] [address] CK [Catalytic activity/Vol] 88 U/L Normal 30-185 [facility] Comment on above: Performed By: #### L AB63 ####Desktop Support Manager: MIGUEL LEAL ([phone])[facility])[address] [place] [address] CK.MB [Mass/Vol] 2.3 ng/mL Normal <=3.4 [facility] Comment on above: Result Comment: ROCIO Bhandari COMMENTS: If CK-MB is elevated and the ratio of CK-MB to total CK (relative index) is more than 3, then it is likely that the heart was damaged. A high CK with a relative index below this value suggests that skeletal muscles were damaged. Performed By: #### L AB63 ####Desktop Support Manager: MIGUEL LEAL ([phone])[facility] ([facility])[address] [place] [address] RELATIVE INDEX 2.6 % Normal <=3.0 [facility] Comment on above: Performed By: #### L AB63 ####Desktop Support Manager: MIGUEL LEAL ([phone])[facility] ([facility])[address] [place] [address] [place] CK [Catalytic activity/Vol] 93 U/L Normal 30-185 [facility] Comment on above: Performed By: #### L AB63 ####Desktop Support Manager: MIGUEL LEAL ([phone])[facility] ([facility])[address] [place] [address] [place] CK.MB [Mass/Vol] 2.6 ng/mL Normal <=3.4 [facility] Comment on above: Result Comment: ROCIO R COMMENTS: If CK-MB is elevated and the ratio of CK-MB to total CK (relative index) is more than 3, then it is likely that the heart was damaged. A high CK with a relative index below this value suggests that skeletal muscles were damaged. Performed By: #### L AB63 ####Desktop Support Manager: MIGUEL LEAL ([phone])[facility])[address] [place] [address] RELATIVE INDEX 2.8 % Normal <=3.0 [facility] Comment on above: Performed By: #### L AB63 ####Desktop Support Manager: MIGUEL LEAL ([phone])[address] CK [Catalytic activity/Vol] 85 U/L Normal 30-185 [facility] Comment on above: Performed By: #### L AB17, LAB18, LAB63, [id number] ####Desktop Support Manager: MIGUEL LEAL ([phone])[facility])[address] [place] [address] CK.MB [Mass/Vol] 2.3 ng/mL Normal <=3.4 [facility] Comment on above: Result Comment: ROCIO Bhandari COMMENTS: If CK-MB is elevated and the ratio of CK-MB to total CK (relative index) is more than 3, then it is likely that the heart was damaged. A high CK with a relative index below this value suggests that skeletal muscles were damaged. Performed By: #### L AB17, LAB18, LAB63, [id number] ####Desktop Support Manager: MIGUEL LEAL ([phone])[address] RELATIVE INDEX 2.7 % Normal <=3.0 [facility] Comment on above: Performed By: #### L AB17, LAB18, LAB63, [id number] ####Desktop Support Manager: MIGUEL LEAL ([phone])[facility])[address] [place] [address] [place] CK.total/Creatine kinase.MB [Catalytic ratio]on 06-15-2025 CK [Catalytic activity/Vol] 104 U/L 30 - 185 U/L [facility] CK.MB [Mass/Vol] 2.7 ng/mL [facility] 3.[facility] ng/mL [facility] Interpretation and review of laboratory results Normal [facility] RELATIVE INDEX 2.6 % NINF - 3.0 % [facility] CK [Catalytic activity/Vol] 88 U/L 30 - 185 U/L [facility] CK.MB [Mass/Vol] 2.3 ng/mL [facility] - 3.4 ng/mL [facility] Interpretation and review of laboratory results Normal [facility] RELATIVE INDEX 2.6 % NINF - 3.0 % [facility] CK [Catalytic activity/Vol] 93 U/L 30 - 185 U/L [facility] CK.MB [Mass/Vol] 2.6 ng/mL [facility] - 3.4 ng/mL [facility] Interpretation and review of laboratory results Normal [facility] RELATIVE INDEX 2.8 % NINF - 3.0 % [facility] CK [Catalytic activity/Vol] 85 U/L 30 - 185 U/L [facility] CK.MB [Mass/Vol] 2.3 ng/mL [facility] - 3.4 ng/mL [facility] Interpretation and review of laboratory results Normal [facility] RELATIVE INDEX 2.7 % [facility] - 3.0 % [facility] COMPREHENSIVE METABOLIC PANE [place] 06-15-2025 Albumin [Mass/Vol] 3.4 g/dL Normal 3.4-4.8 [facility] Comment on above: Performed By: #### L AB17, LAB18, LAB63, [id number] ####Desktop Support Manager: MIGUEL LEAL ([phone])[address] ALP [Catalytic activity/Vol] 46 U/L Normal 40-150 [facility] Comment on above: Performed By: #### L AB17, LAB18, LAB63, [id number] ####Desktop Support Manager: MIGUEL LEAL ([phone])[facility])[address] [place] [address] [place] ALT [Catalytic activity/Vol] U/L Normal <30 [facility] Comment on above: Performed By: #### L AB17, LAB18, LAB63, [id number] ####Desktop Support Manager: MIGUEL LEAL ([phone])[facility] ([facility])[address] [place] [address] Anion gap [Moles/Vol] 11 mmol/L Normal 3-13 [facility] Comment on above: Performed By: #### L AB17, LAB18, LAB63, [id number] ####Desktop Support Manager: MIGUEL LEAL ([phone])[facility] ([facility])[address] [place] [address] AST [Catalytic activity/Vol] 32 U/L Normal <34 [facility] Comment on above: Performed By: #### L AB17, LAB18, LAB63, [id number] ####Desktop Support Manager: MIGUEL LEAL ([phone])[facility] ([facility])[address] [place] [address] Bilirubin [Mass/Vol] 0.3 mg/dL Normal <1.2 [facility] Comment on above: Performed By: #### L AB17, LAB18, LAB63, [id number] ####Desktop Support Manager: MIGUEL LEAL ([phone])[facility] ([facility])[address] [place] [address] Calcium [Mass/Vol] 8.8 mg/dL Normal 8.8-10.0 [facility] Comment on above: Performed By: #### L AB17, LAB18, LAB63, [id number] ####Desktop Support Manager: MIGUEL LEAL ([phone])[facility] ([facility])[address] [place] [address] [place] Chloride [Moles/Vol] 103 mmol/L Normal 98-107 [facility] Comment on above: Performed By: #### L AB17, LAB18, LAB63, [id number] ####Desktop Support Manager: MIGUEL LEAL ([phone])[facility])[address] [place] [address] [place] CO2 [Moles/Vol] 22 mmol/L Low 23-31 [facility] Comment on above: Performed By: #### L AB17, LAB18, LAB63, [id number] ####Desktop Support Manager: MIGUEL LEAL ([phone])[facility] ([facility])[address] [place] [address] Creatinine [Mass/Vol] 0.69 mg/dL Normal 0.57-1.11 [facility] Comment on above: Performed By: #### L AB17, LAB18, LAB63, [id number] ####Desktop Support Manager: MIGUEL LEAL ([phone])[facility] ([facility])[address] [place] [address] [place] GLOMERULAR FILTRATION RATE ML/MIN/1.73 SQ M.PREDICTED >90.0 Normal >60.0 [facility] Comment on above: Result Comment: Calc ulation based on the Chronic Kidney Disease Epidemiology Collaboration (CKD-EPI) equation refit without adjustment for race Performed By: #### L AB17, LAB18, LAB63, [id number] ####Desktop Support Manager: MIGUEL LEAL ([phone])[facility] ([facility])[address] [place] [address] [place] Glucose [Mass/Vol] 92 mg/dL Normal 82-115 [facility] Comment on above: Performed By: #### L AB17, LAB18, LAB63, [id number] ####Desktop Support Manager: MIGUEL LEAL ([phone])[facility] ([facility])[address] [place] [address] [place] Potassium [Moles/Vol] 4.1 mmol/L Normal 3.5-5.1 [facility] Comment on above: Result Comment: [facility] potassium values may be up to 0.5 mmol/L lower than serum values. Performed By: #### L AB17, LAB18, LAB63, [id number] ####Desktop Support Manager: MIGUEL LEAL ([phone])[facility] [place] [address] [place] Protein [Mass/Vol] 6.2 g/dL Low 6.4-8.3 [facility] Comment on above: Performed By: #### L AB17, LAB18, LAB63, [id number] ####Desktop Support Manager: MIGUEL LEAL ([phone])[facility] ([facility])[address] [place] [address] Sodium [Moles/Vol] 136 mmol/L Normal 136-145 [facility] Comment on above: Performed By: #### L AB17, LAB18, LAB63, [id number] ####Desktop Support Manager: MIGUEL LEAL ([phone])[facility] ([facility])[address] [place] [address] Urea nitrogen [Mass/Vol] 18 mg/dL Normal 9-23 [facility] Comment on above: Performed By: #### L AB17, LAB18, LAB63, [id number] ####Desktop Support Manager: MIGUEL LEAL ([phone])[facility] ([facility])[address] [place] [address] Calcium.ionized [Moles/Vol]o n 06-15-2025 Calcium.ionized (Bld) [Moles/Vol] 4.5 mg/dL 4.30 - 5.20 mg/dL [facility] Interpretation and review of laboratory results Normal [facility] PH, IONIZED CALCIUM 7.4 7.31 - 7.46 [facility] Comprehensive metabolic 1998 panelon 06-15-2025 Albumin [Mass/Vol] 3.4 g/dL 3.4 - 4.8 g/dL [facility] ALP [Catalytic activity/Vol] 46 U/L 40 - 150 U/L [facility] ALT [Catalytic activity/Vol] U/L NINF - 30 U/L [facility] Anion gap [Moles/Vol] 11 mmol/L 3 - 13 mmol/L [facility] AST [Catalytic activity/Vol] 32 U/L NINF - 34 U/L [facility] Bilirubin [Mass/Vol] 0.3 mg/dL NINF - 1.2 mg/dL [facility] Calcium [Mass/Vol] 8.8 mg/dL 8.8 - 10. 0 mg/dL [facility] Chloride [Moles/Vol] 103 mmol/L 98 - 10 7 mmol/L [facility] CO2 [Moles/Vol] 22 mmol/L Low 23 - 31 mmol/L [facility] Creatinine [Mass/Vol] 0.69 mg/dL 0.57 - 1.11 mg/dL [facility] GFR/1.73 sq M.predicted (S/P/Bld) [Vol rate/Area] - PINF [facility] Glucose [Mass/Vol] 92 mg/dL 82 - 115 mg/dL [facility] Potassium [Moles/Vol] 4.1 mmol/L 3.5 - 5.1 mmol/L [facility] Protein [Mass/Vol] 6.2 g/dL Low 6.4 - 8.3 g/dL [facility] Sodium [Moles/Vol] 136 mmol/L 136 - 145 mmol/L [facility] Urea nitrogen [Mass/Vol] 18 mg/dL 9 - 23 mg/dL [facility] Consulton 06-15-2025 Consult Cardiac Surgery Cons ult Note Reason for Consult: We were asked by Dr. Selvin Lynch MD to see Richie Armas and offer our opinion on the evaluation and treatment of CAD. Ms. Armas is a 75 y.o. female who presented to [facility], underwent LHC demonstrating severe multivessel CAD. ASSESSMENT / PLAN: Richie Armas is a 75 y.o. year old female with severe multivessel coronary artery disease. I reviewed the left heart cath findings with the patient at bedside. Notably she has severe multivessel coronary artery disease. We had a lengthy discussion regarding approaches to this disease. These included no intervention, medical therapy alone, percutaneous approaches, and surgical revascularization. Given the extent and location of the disease, they would derive significant benefit from surgical revascularization which would provide the most complete and durable revascularization option. We discussed the risks, benefits, and alternatives to surgery surgical revascularization. The risks of the procedure/s include but are not limited to, bleeding, infection, pneumonia, respiratory failure, prolonged Intensive Care Unit stay, multiorgan failure, renal failure needing temporary and/or permanent dialysis, cerebrovascular accident, pulmonary embolism, deep venous thrombosis, cardiac failure or ischemia or arrhythmia, and . The patient was given an opportunity to ask questions and these were answered at this time. At this time, they would like to proceed with surgical evaluation. Please obtain an echocardiogram, carotid duplex, noncontrast CT chest, lower extremity vein mapping, and Preoperative labs. We will tentatively plan for surgery in the near future assuming the patient remains asymptomatic and stable and pending the results of these studies. - Laboratory Testing Including (if not already obtained): - Urinalysis with reflex to culture - LFTs, albumin and prealbumin - High-risk surgery MRSA screen (nares only) - TSH, T4Free - Hemoglobin A1C - Lipid profile - Chemistry and CBC with differential - Type and Cross (within 24 hours of surgery for inpatient) - Carotid duplex ultrasound - Echocardiogram - Non-contrast chest CT Thank you for the consult. Please call with any additional questions or concerns. Shaunna Johnston DO, DO REVIEW OF SYSTEMS Full review of systems performed. All others are negative except as indicated in HPI. RELEVANT INFORMATION Medical History[1] Surgical History[2] Family History[3] Social History Tobacco Use History[4] Social History Substance and Sexual Activity Alcohol Use Not on file Allergies Allergies[5] Current Medications Scheduled Meds:Scheduled Meds[6] Continuous Infusions:Continuous Meds[7] PRN Meds:PRN Meds[8] PHYSICAL EXAM Physical Exam Vital Signs (24hrs): Blood pressure 150/82, pulse 71, temperature 36.2 ?C (97.1 ?F), temperature source Temporal, resp. rate 17, weight 137 lb 5.6 oz (62.3 kg), SpO2 98%. There is no height or weight on file to calculate BMI. Intake/Output Summary (Last 24 hours) at 06/15/2025 09 Last data filed at 06/14/20252002 Gross per 24 hour Intake 300 ml Output 300 ml Net 0 ml General appearance: alert, cooperative, appears stated age Lungs: clear to auscultation bilaterally Heart: regular rate and rhythm, S1, S2 normal, no murmur, click, rub or gallop Abdomen: soft, non-tender. Bowel sounds normal. No masses, no organomegaly Extremities: extremities normal, atraumatic, no cyanosis or edema, Normal ROM. Pulses: 2+ and symmetric Skin: Skin color, texture, turgor normal. No rashes or lesions Neurologic: Grossly normal Psych: appropriate mood and affect for clinical situation DIAGNOSTIC RESULTS Heart Catheterization Images from OSH reviewed Echocardiogram pending Imaging pending Labs: @ABGROUNDS@ @LASTLABOSUSHORT(WBC,HG B,PLATELET,PTT,INR,SODI UM,POTASSIUM,CHLORIDE,C O2,BUN,CREA TININE,CALCIUM,MAGNESIU M,PHOSPHORUS,LACTATE,TR ANSFERASEA,AST,GGT,GAMM AGT,ALKPHOS ,BILITOTAL,BILIDIRECT,A LBUMIN,PREALBUMIN,HGBA1 C)@ [1] No past medical history on file. [2] No past surgical history on file. [3] No family history on file. [4] Social History Tobacco Use Smoking Status Unknown Smokeless Tobacco Not on file [5] Allergies Allergen Reactions Flexeril [Cyclobenzaprine] Itching [6] amitriptyline, 50 mg, Oral, Nightly aspirin, 81 mg, Oral, Daily carvedilol, 6.25 mg, Oral, BID WC levothyroxine, 75 mcg, Oral, qAM AC magnesium hydroxide, 30 mL, Oral, BID Melatonin, 0.3 mg, SubLINGual, Nightly mupirocin, 1 Application, Nasal, BID pantoprazole, 40 mg, Oral, qAM AC polyethylene glycol (PEG) 3350, 17 g, Oral, BID senna-docusate sodium, 2 tablet, Oral, Daily sodium chloride 0.9%, 5-40 mL, IntraVENous, q12h tiZANidine, 4 mg, Oral, Nightly venlafaxine XR, 75 mg, Oral, Daily with breakfast [7] heparin, 5-30 Units/kg/hr, Last Rate: 13 Units/kg/hr (06/15/25 0700) (more content not included)... Normal [facility] LIPID PANELon 06-15-2025 Cholesterol [Mass/Vol] 295 mg/dL High <200 [facility] Comment on above: Order Comment: If no t done in the last six months. Performed By: #### L AB17, LAB18, LAB63, [id number] ####Desktop Support Manager: MIGUEL LEAL ([phone])[address] Cholesterol in HDL [Mass/Vol] 79 mg/dL Normal >=60 [facility] Comment on above: Order Comment: If no t done in the last six months. Performed By: #### L AB17, LAB18, LAB63, [id number] ####Desktop Support Manager: MIGUEL LEAL ([phone])[facility] ([facility])[address] [place] [address] Cholesterol.total/Mel sterol in HDL [Mass ratio] 4 {ratio} Normal [facility] Comment on above: Order Comment: If no t done in the last six months. Result Comment: Ref Range: < 3 Low Risk for CHD 3-6 Mod Risk for CHD > 6 High Risk for CHD Performed By: #### L AB17, LAB18, LAB63, [id number] ####Desktop Support Manager: MIGUEL LEAL ([phone])[facility])[address] [place] [address] LOW DENSITY LIPOPROTEIN 190 mg/dL High 0-<100 [facility] Comment on above: Order Comment: If no t done in the last six months. Performed By: #### L AB17, LAB18, LAB63, [id number] ####Desktop Support Manager: MIGUEL LEAL ([phone])[facility])[address] [place] [address] NON-HDL CHOLESTEROL, CALCULATED 216 High <130 [facility] Comment on above: Order Comment: If no t done in the last six months. Performed By: #### L AB17, LAB18, LAB63, [id number] ####Desktop Support Manager: MIGUEL LEAL ([phone])[facility])[address] [place] [address] Triglyceride [Mass/Vol] 129 mg/dL Normal <150 [facility] Comment on above: Order Comment: If no t done in the last six months. Performed By: #### L AB17, LAB18, LAB63, [id number] ####Desktop Support Manager: MIGUEL LEAL ([phone])[facility])[address] [place] [address] VERY LOW DENSITY LIPOPROTEIN, CALCULATED 26 mg/dL Normal <=30 [facility] Comment on above: Order Comment: If no t done in the last six months. Performed By: #### L AB17, LAB18, LAB63, [id number] ####Desktop Support Manager: MIGUEL LEAL ([phone])[facility])[address] [place] [address] Laboratory - Chemistry and C hemistry - challengeon 06-15-2025 Magnesium [Mass/Vol] 2.2 mg/dL 1.6 - 2 .6 mg/dL [facility] Lipid 1996 panelon 5 Cholesterol [Mass/Vol] 295 mg/dL High NINF - 200 mg/dL [facility] Cholesterol in HDL [Mass/Vol] 79 mg/dL 60 - PINF mg/dL [facility] Cholesterol in LDL [Mass/Vol] 190 mg/dL High 0 - <100 [facility] Cholesterol.total/Mel sterol in HDL [Mass ratio] 4 {ratio} [facility] NON-HDL CHOLESTEROL, CALCULATED 216 High NINF - 130 [facility] Triglyceride [Mass/Vol] 129 mg/dL NINF - 150 mg/dL [facility] VERY LOW DENSITY LIPOPROTEIN, CALCULATED 26 mg/dL [facility] mg/dL [facility] MAGNESIUMon 06-15-2025 Magnesium [Mass/Vol] 2.2 mg/dL Normal 1.6-2.6 [facility] Comment on above: Result Comment: ROCIO Bhandari COMMENTS: Higher values can be expected in females during menses. Performed By: #### L AB17, LAB18, LAB63, [id number] ####Desktop Support Manager: MIGUEL LEAL ([phone])[facility] ([address] Magnesium [Mass/Vol]on 06-15 Interpretation and review of laboratory results Normal [facility] No Panel Informationon 06-15 Interpretation and review of laboratory results Abnormal [facility] Progress Noteon 06-15-2025 Progress Note --- Attestation signed by Selvin Lynch MD at 06/15/2025 11:34 AM I, Dr. Lynch, saw and evaluated the patient on 06/15/2025. I personally obtained the figueroa and critical portions of the history and physical exam. I reviewed the chart and discussed the patient with the resident. I agree with the resident's medical decision making. Assessment/Plan: Patient without past cardiac history, admitted with NSTEMI to outside hospital. Cath showed complex 3v CAD. Transferred here for evaluation for possible CABG. Placed on nitro and heparin drips for symtpoms. Pt feeling well this morning, no further symptoms. CT surgery to see today to evaluate for possible CABG. [facility] CCU PROGRESS NOTE Patient Name: Richie Armas : 1950 Subjective: Richie Armas is a 75 y.o. female with PMH CKD 2, Raynaud's, anxiety/depression, IBS/constipation, GERD, fibromyalgia, hypothyroidism, chronic low back pain S/P lumbar spinal surgery that presented to [facility] on 06/14/2025 from outside facility ([facility]). 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 Patient transferred to [facility] for CABG eval and loaded with ASA, heparin, started on nitroglycerin gtt. Interval History: No overnight events. Intermittent reflux-like symptoms with ambulation, relieved with rest. On 5 nitroglycerin gtt and heparin gtt. Only 1 small BM within the last week, pt requesting scheduled milk of mag BID, miralax BID, senna 2 tablets daily. Otherwise no new concerns or complaints. Review of Systems: Review of Systems Constitutional: Negative for chills and fever. Respiratory: Negative for cough and shortness of breath. Cardiovascular: Negative for chest pain and leg swelling. Gastrointestinal: Positive for constipation. Negative for abdominal pain and nausea. Neurological: Negative for headaches. Inpatient Medications: Scheduled Meds:Scheduled Meds[1] Continuous Infusions:Continuous Meds[2] PRN Meds used in the last 24hr: IV heparin 1860 units x1 Objective: Physical Examination: BP 105/75 Pulse 78 Temp 36.6 ?C (97.9 ?F) (Temporal) Resp 16 Wt 137 lb 5.6 oz (62.3 kg) SpO2 100% Intake/Output Summary (Last 24 hours) at 06/15/2025 1059 Last data filed at 06/14/20252002 Gross per 24 hour Intake 300 ml Output 300 ml Net 0 ml Physical Exam Constitutional: General: She is not in acute distress. Cardiovascular: Rate and Rhythm: Normal rate and regular rhythm. Pulmonary: Effort: Pulmonary effort is normal. Breath sounds: Normal breath sounds. Abdominal: Palpations: Abdomen is soft. Tenderness: There is no abdominal tenderness. Musculoskeletal: Right lower leg: No edema. Left lower leg: No edema. Skin: General: Skin is warm and dry. Neurological: General: No focal deficit present. Mental Status: She is alert. Mental status is at baseline. Pertinent Labs: BMP: Lab Results Component Value Date NA 136 06/15/2025 K 4.1 06/15/2025 CL 103 06/15/2025 CO2 22 (L) 06/15/2025 BUN 18 06/15/2025 CREATININE 0.69 06/15/2025 GLUCOSE 92 06/15/2025 CALCIUM 8.8 06/15/2025 MG 2.2 06/15/2025 CBC: Lab Results Component Value Date WBC 5.7 06/15/2025 HGB 12.5 06/15/2025 HCT 38.8 06/15/2025 MCV 95.8 06/15/2025 PLT 211 06/15/2025 Cardiac profile: CK Date Value Ref Range Status 06/15/2025 93 30 - 185 U/L Final 06/15/2025 85 30 - 185 U/L Final 06/14/2025 95 30 - 185 U/L Final CKMB Date Value Ref Range Status 06/15/2025 2.6 <=3.4 ng/mL Final 06/15/2025 2.3 <=3.4 ng/mL Final 06/14/2025 2.7 <=3.4 ng/mL Final Coagulation: No results found for: INR, PTT Lipid panel: Lab Results Component Value Date CHOL 295 (H) 06/15/2025 HDL 79 06/15/2025 TRIG 129 06/15/2025 Other: Lab Results Component Value Date TSH 2.71 06/14/2025 Chest Imaging: CXR: Cardiac Studies: Telemetry findings reviewed: NSR ECG: Encounter Date: 06/14/25 ECG 12 lead Result Value Heart Rate 71 QRSD Interval 89 QT Interval 404 QTC Interval 440 P [place] 59 QRS [place] 100 T Wave [place] 0 OH Interval 160 Impression Sinus rhythm Probable left atrial enlargement Right axis deviation Low voltage, precordial leads Nonspecific T abnrm, anterolateral leads Echo: No results found for this or any previous visit. Cath Report: No results found for this or any previous visit. Assessment/Plan Anterolateral NSTEMI Severe Multivessel CAD HLD - Patient without chest pain, occasional reflux-like sx with ambulation - Initial EKG (more content not included)... Normal [facility] aPTT Coag (Bld) [Time]on aPTT Coag (PPP) [Time] 61.7 s High 20.0 - 30.5 s [facility] Interpretation and review of laboratory results Abnormal [facility] aPTT Coag (PPP) [Time] 47 s High 20.0 - 30.5 s [facility] Interpretation and review of laboratory results Abnormal [facility] aPTT Coag (PPP) [Time] 63.2 s High 20.0 - 30.5 s [facility] Interpretation and review of laboratory results Abnormal [facility] aPTT Coag (PPP) [Time] 39.3 s High 20.0 - 30.5 s [facility] Interpretation and review of laboratory results Abnormal [facility] APTTon 06-14-2025 aPTT Coag (Bld) [Time] 36.9 s High 20.0-30.5 [facility] Comment on above: Result Comment: ROCIO Bhandari COMMENTS: NOTE: The therapeutic time for Heparin anticoagulation, based on Xa activity inhibition, is an APTT of 46-80 seconds. Performed By: #### L AB325 ####Desktop Support Manager: MIGUEL LEAL ([phone])[facility] ([facility])[address] [place] [address] Absolute lymphocyte countOrd ered By: Hui Morel on 06-14-2025 Lymphocytes Auto (Unsp spec) [#/Vol] 2.43 10*3/uL 0.83-4.51 [facility] Absolute neutrophil countOrd ered By: Hui Maria Teresa on 06-14-2025 Neutrophils (Bld) [#/Vol] 2.4 10*3/uL 2.0-7.7 [facility] Activated partial thrombopla stin time (aPTT) in platelet poor plasma by coagulation aOrdered By: Efren Moss on 06-14-2025 aPTT Coag (PPP) [Time] 111.8 s High 24.1-36.2 [facility] Comment on above: CRITICAL VALUE MERCADO D TO [id number]/25/25 0145 Maxim Gurrola.RESULTS READ BACK BY SAME. Anion gap in Serum or Plasma Ordered By: Hui Maria Teresa on 06-14-2025 Anion gap [Moles/Vol] 11 mmol/L 5-15 [facility] Automated lymphocyte count a s percentage of total leukocytesOrdered By: Hui Maria Teresa on 06-14-2025 Lymphocytes/100 WBC Auto (Unsp spec) 45.0 % High 19-41 [facility] BUN/creatinine ratioOrdered By: Hui Maria Teresa on 06-14-2025 Urea nitrogen/Creatinine [Mass ratio] 34.4 mg/mg High 10-20 [facility] Basophil percentageOrdered B y: Hui Maria Teresa on 06-14-2025 Basophils/100 WBC (Bld) 0.7 % 0-1 [facility] Bilirubin, totalOrdered By: Hui Morel on 06-14-2025 Bilirubin [Mass/Vol] 0.24 mg/dL 0.00-1.30 [facility] CBC (HEMOGRAM)on 06-14-2025 Erythrocyte distribution width (RBC) [Ratio] 13.4 % Normal 11.5-15.0 [facility] Comment on above: Performed By: #### L AB294 ####Desktop Support Manager: MIGUEL LEAL ([phone])[facility] ([facility])[address] [place] [address] Hematocrit (Bld) [Volume fraction] 40.1 % Normal 35.0-47.0 [facility] Comment on above: Performed By: #### L AB294 ####Desktop Support Manager: MIGUEL LEAL ([phone])[facility])[address] [place] [address] Hemoglobin (Bld) [Mass/Vol] 13.4 g/dL Normal 11.7-16.0 [facility] Comment on above: Performed By: #### L AB294 ####Desktop Support Manager: MIGUEL LEAL ([phone])[facility] ([facility])[address] [place] [address] MCH (RBC) [Entitic mass] 31.6 pg Normal 26.0-34.0 [facility] Comment on above: Performed By: #### L AB294 ####Desktop Support Manager: MIGUEL LEAL ([phone])[facility])[address] [place] [address] MCHC 33.4 % Normal 30.5-36.0 [facility] Comment on above: Performed By: #### L AB294 ####Desktop Support Manager: MIGUEL LEAL ([phone])[facility] ([facility])[address] [place] [address] MCV (RBC) [Entitic vol] 94.6 fL Normal 77.0-99.0 [facility] Comment on above: Performed By: #### L AB294 ####Desktop Support Manager: MIGUEL LEAL ([phone])[facility])[address] [place] [address] Platelet mean volume (Bld) [Entitic vol] 10.3 fL Normal 9.0-12.7 [facility] Comment on above: Performed By: #### L AB294 ####Desktop Support Manager: MIGUEL LEAL ([phone])[facility])[address] [place] [address] Platelets (Bld) [#/Vol] 236 10*3/uL Normal 140-440 [facility] Comment on above: Performed By: #### L AB294 ####Desktop Support Manager: MIGUEL LEAL ([phone])[facility] ([facility])[address] [place] [address] RBC (Bld) [#/Vol] 4.24 10*6/uL Normal 3.80-5.20 [facility] Comment on above: Performed By: #### L AB294 ####Desktop Support Manager: MIGUEL LEAL ([phone])[facility])[address] [place] [address] WBC (Bld) [#/Vol] 6.2 10*3/uL Normal 3.6-10.7 [facility] Comment on above: Performed By: #### L AB294 ####Desktop Support Manager: MIGUEL LEAL ([phone])[facility] ([facility])[address] [place] [address] CBC W/Diff, Automatedon 07-2 -2024 Absolute Neut Normal 2.0-7.7 [facility] Comment on above: Order Comment: Comme nts: If not done in prior 24 hours Result Comment: OK T O CANCEL BY TDEVEREAUX Performed By: #### L 300.3900, L100.0100 #### [facility] [address] [place], [address] Performed By: #### L 100.0100 #### [facility] [address] [place], [address] HCT Normal 37-47 [facility] Comment on above: Order Comment: Comme nts: If not done in prior 24 hours Result Comment: OK T O CANCEL BY TDEVEREAUX Performed By: #### L 300.3900, L100.0100 #### [facility] [address] [place], [address] Performed By: #### L 100.0100 #### [facility] [address] [place], [address] HGB Normal 12.0-15.0 [facility] Comment on above: Order Comment: Comme nts: If not done in prior 24 hours Result Comment: OK T O CANCEL BY TDEVEREAUX Performed By: #### L 300.3900, L100.0100 #### [facility] [address] [place], [address] Performed By: #### L 100.0100 #### [facility] [address] [place], [address] MCH Normal 27.0-32.0 [facility] Comment on above: Order Comment: Comme nts: If not done in prior 24 hours Result Comment: OK T O CANCEL BY TDEVEREAUX Performed By: #### L 300.3900, L100.0100 #### [facility] [address] [place], [address] Performed By: #### L 100.0100 #### [facility] [address] [place], [address] MCHC Normal 32-36 [facility] Comment on above: Order Comment: Comme nts: If not done in prior 24 hours Result Comment: OK T O CANCEL BY TDEVEREAUX Performed By: #### L 300.3900, L100.0100 #### [facility] [address] [place], [address] Performed By: #### L 100.0100 #### [facility] [address] [place], [address] MCV Normal 81-99 [facility] Comment on above: Order Comment: Comme nts: If not done in prior 24 hours Result Comment: OK T O CANCEL BY TDEVEREAUX Performed By: #### L 300.3900, L100.0100 #### [facility] [address] [place], [address] Performed By: #### L 100.0100 #### [facility] [address] [place], [address] NEUT% Normal 47-70 [facility] Comment on above: Order Comment: Comme nts: If not done in prior 24 hours Result Comment: OK T O CANCEL BY TDEVEREAUX Performed By: #### L 300.3900, L100.0100 #### [facility] [address] [place], [address] Performed By: #### L 100.0100 #### [facility] [address] [place], [address] PLT Normal 150-450 [facility] Comment on above: Order Comment: Comme nts: If not done in prior 24 hours Result Comment: OK T O CANCEL BY TDEVEREAUX Performed By: #### L 300.3900, L100.0100 #### [facility] [address] [place], [address] Performed By: #### L 100.0100 #### [facility] [address] [place], [address] RBC Normal 4.2-5.4 [facility] Comment on above: Order Comment: Comme nts: If not done in prior 24 hours Result Comment: OK T O CANCEL BY TDEVEREAUX Performed By: #### L 300.3900, L100.0100 #### [facility] [address] [place], [address] Performed By: #### L 100.0100 #### [facility] [address] [place], [address] RDW CV Normal 11.6-14.6 [facility] Comment on above: Order Comment: Comme nts: If not done in prior 24 hours Result Comment: OK T O CANCEL BY TDEVEREAUX Performed By: #### L 300.3900, L100.0100 #### [facility] [address] [place], [address] Performed By: #### L 100.0100 #### [facility] [address] [place], [address] RDW SD Normal 35.1-43.9 [facility] Comment on above: Order Comment: Comme nts: If not done in prior 24 hours Result Comment: OK T O CANCEL BY TDEVEREAUX Performed By: #### L 300.3900, L100.0100 #### [facility] [address] [place], [address] Performed By: #### L 100.0100 #### [facility] [address] [place], [address] WBC Normal 4.4-11.0 [facility] Comment on above: Order Comment: Comme nts: If not done in prior 24 hours Result Comment: OK T O CANCEL BY TDEVEREAUX Performed By: #### L 300.3900, L100.0100 #### [facility] [address] [place], [address] Performed By: #### L 100.0100 #### [facility] [address] [place], [address] Absolute Lymph 2.43 X10 3/uL Normal 0.83-4.51 [facility] Comment on above: Performed By: #### L 7000.0700 #### [facility] [address] [place], [address] Absolute Neut 2.4 X10 3/uL Normal 2.0-7.7 [facility] Comment on above: Performed By: #### L 7000.0700 #### [facility] [address] [place], [address] Basophils/100 WBC (Bld) 0.7 % Normal 0-1 [facility] Comment on above: Performed By: #### L 7000.0700 #### [facility] [address] [place], [address] Eosinophils/100 WBC (Bld) 0.9 % Normal 0-5 [facility] Comment on above: Performed By: #### L 7000.0700 #### [facility] [address] [place], [address] Erythrocyte distribution width (RBC) [Ratio] 13.3 % Normal 11.6-14.6 [facility] Comment on above: Performed By: #### L 7000.0700 #### [facility] [address] [place], [address] Hematocrit (Bld) [Volume fraction] 36.1 % Low 37-47 [facility] Comment on above: Performed By: #### L 7000.0700 #### [facility] [address] [place], [address] Hemoglobin (Bld) [Mass/Vol] 12.1 g/dL Normal 12.0-15.0 [facility] Comment on above: Performed By: #### L 7000.0700 #### [facility] [address] [place], [address] IG% 0.400 Normal 0.0-0.9 [facility] Comment on above: Result Comment: IG% - Immature Granulocytes (promyelocytes, myelocytes and metamyelocytes) > 1% indicates that a LEFT SHIFT is Present. Performed By: #### L 7000.0700 #### [facility] [address] [place], [address] Lymphocytes/100 WBC (Bld) 45.0 % High 19-41 [facility] Comment on above: Performed By: #### L 7000.0700 #### [facility] [address] [place], [address] MCH (RBC) [Entitic mass] 31.8 pg Normal 27.0-32.0 [facility] Comment on above: Performed By: #### L 7000.0700 #### [facility] [address] [place], [address] MCHC (RBC) [Mass/Vol] 33.5 g/dL Normal 32-36 [facility] Comment on above: Performed By: #### L 7000.0700 #### [facility] [address] [place], [address] MCV (RBC) [Entitic vol] 95.0 fL Normal 81-99 [facility] Comment on above: Performed By: #### L 7000.0700 #### [facility] [address] [place], [address] Monocytes/100 WBC (Bld) 8.7 % Normal 0-10 [facility] Comment on above: Performed By: #### L 7000.0700 #### [facility] [address] [place], [address] Neutrophils/100 WBC (Bld) 44.3 % Low 47-70 [facility] Comment on above: Performed By: #### L 7000.0700 #### [facility] [address] [place], [address] Nucleated RBC (Bld) [#/Vol] 0 10*3/uL Normal 0-5 [facility] Comment on above: Performed By: #### L 7000.0700 #### [facility] [address] [place], [address] Platelet mean volume (Bld) [Entitic vol] 10.5 fL Normal 6.2-12.0 [facility] Comment on above: Performed By: #### L 7000.0700 #### [facility] [address] [place], [address] Platelets (Bld) [#/Vol] 220 10*3/uL Normal 150-450 [facility] Comment on above: Performed By: #### L 7000.0700 #### [facility] [address] [place], [address] RBC (Bld) [#/Vol] 3.80 10*6/uL Low 4.2-5.4 [facility] Comment on above: Performed By: #### L 7000.0700 #### [facility] [address] [place], [address] RDW SD 46.9 fl High 35.1-43.9 [facility] Comment on above: Performed By: #### L 7000.0700 #### [facility] [address] [place], [address] WBC (Bld) [#/Vol] 5.4 10*3/uL Normal 4.4-11.0 [facility] Comment on above: Performed By: #### L 7000.0700 #### [facility] [address] [place], [address] CBC panel Auto (Bld)on 06-14 Erythrocyte distribution width (RBC) [Ratio] 13.4 % 11.5 - 15.0 % [facility] Hematocrit (Bld) [Volume fraction] 40.1 % 35.0 - 47.0 % [facility] Hemoglobin (Bld) [Mass/Vol] 13.4 g/dL 11.7 - 16.0 g/dL [facility] Interpretation and review of laboratory results Normal [facility] MCH (RBC) [Entitic mass] 31.6 pg 26.0 - 34.0 pg [facility] MCHC (RBC) [Mass/Vol] 33.4 % 30.5 - 36.0 % [facility] MCV (RBC) [Entitic vol] 94.6 fL 77.0 - 99.0 fL [facility] GTRAN Platelet mean volume (Bld) [Entitic vol] 10.3 fL 9.0 - 12.7 fL [facility] Platelets (Bld) [#/Vol] 236 10*3/uL 140 - 440 10*3/uL [facility] RBC (Bld) [#/Vol] 4.24 10*6/uL 3.80 - 5.2 0 10*6/uL [facility] WBC (Bld) [#/Vol] 6.2 10*3/uL 3.6 - 10.7 10*3/uL [facility] CK TOTAL AND CKMBon 06-14-20 CK [Catalytic activity/Vol] 95 U/L Normal 30-185 [facility] Comment on above: Performed By: #### L [id number], [id number], LAB63, LAB17 ####Desktop Support Manager: MIGUEL LEAL ([phone])[facility])[address] [place] [address] CK.MB [Mass/Vol] 2.7 ng/mL Normal <=3.4 [facility] Comment on above: Result Comment: ROCIO Bhandari COMMENTS: If CK-MB is elevated and the ratio of CK-MB to total CK (relative index) is more than 3, then it is likely that the heart was damaged. A high CK with a relative index below this value suggests that skeletal muscles were damaged. Performed By: #### L [id number], [id number], LAB63, LAB17 ####Desktop Support Manager: MIGUEL LEAL ([phone])[facility] ([address] RELATIVE INDEX 2.8 % Normal <=3.0 [facility] Comment on above: Performed By: #### L [id number], [id number], LAB63, LAB17 ####Desktop Support Manager: MIGUEL LEAL ([phone])[address] CK.total/Creatine kinase.MB [Catalytic ratio]on 06-14-2025 CK [Catalytic activity/Vol] 95 U/L 30 - 185 U/L [facility] CK.MB [Mass/Vol] 2.7 ng/mL NINF - 3.4 ng/mL [facility] Interpretation and review of laboratory results Normal [facility] RELATIVE INDEX 2.8 % NINF - 3.0 % [facility] COMPREHENSIVE METABOLIC PANE [place] 06-14-2025 Albumin [Mass/Vol] 3.7 g/dL Normal 3.4-4.8 [facility] Comment on above: Performed By: #### L [id number], [id number], LAB63, LAB17 ####Desktop Support Manager: MIGUEL LEAL ([phone])[facility] ([facility])[address] [place] [address] ALP [Catalytic activity/Vol] 50 U/L Normal 40-150 [facility] Comment on above: Performed By: #### L [id number], [id number], LAB63, LAB17 ####Desktop Support Manager: MIGUEL LEAL ([phone])[facility] ([facility])[address] [place] [address] ALT [Catalytic activity/Vol] U/L Normal <30 [facility] Comment on above: Performed By: #### L [id number], [id number], LAB63, LAB17 ####Desktop Support Manager: MIGUEL LEAL ([phone])[facility] ([facility])[address] [place] [address] Anion gap [Moles/Vol] 6 mmol/L Normal 3-13 [facility] Comment on above: Performed By: #### L [id number], [id number], LAB63, LAB17 ####Desktop Support Manager: MIGUEL LEAL ([phone])[facility] ([facility])[address] [place] [address] AST [Catalytic activity/Vol] 34 U/L High <34 [facility] Comment on above: Performed By: #### L [id number], [id number], LAB63, LAB17 ####Desktop Support Manager: MIGUEL LEAL ([phone])[facility] ([facility])[address] [place] [address] Bilirubin [Mass/Vol] 0.4 mg/dL Normal <1.2 [facility] Comment on above: Performed By: #### L [id number], [id number], LAB63, LAB17 ####Desktop Support Manager: MIGUEL LEAL ([phone])[facility])[address] [place] [address] Calcium [Mass/Vol] 8.4 mg/dL Low 8.8-10.0 [facility] Comment on above: Performed By: #### L [id number], [id number], LAB63, LAB17 ####Desktop Support Manager: MIGUEL LEAL ([phone])[facility] ([facility])[address] [place] [address] Chloride [Moles/Vol] 104 mmol/L Normal 98-107 [facility] Comment on above: Performed By: #### L [id number], [id number], LAB63, LAB17 ####Desktop Support Manager: MIGUEL LEAL ([phone])[facility] ([facility])[address] [place] [address] CO2 [Moles/Vol] 25 mmol/L Normal 23-31 [facility] Comment on above: Performed By: #### L [id number], [id number], LAB63, LAB17 ####Desktop Support Manager: MIGUEL LEAL ([phone])[facility] ([facility])[address] [place] [address] Creatinine [Mass/Vol] 0.62 mg/dL Normal 0.57-1.11 [facility] Comment on above: Performed By: #### L [id number], [id number], LAB63, LAB17 ####Desktop Support Manager: MIGUEL LEAL ([phone])[facility])[address] [place] [address] GLOMERULAR FILTRATION RATE ML/MIN/1.73 SQ M.PREDICTED >90.0 Normal >60.0 [facility] Comment on above: Result Comment: Calc ulation based on the Chronic Kidney Disease Epidemiology Collaboration (CKD-EPI) equation refit without adjustment for race Performed By: #### L [id number], [id number], LAB63, LAB17 ####Desktop Support Manager: MIGUEL LEAL ([phone])[facility])[address] [place] [address] Glucose [Mass/Vol] 102 mg/dL Normal 82-115 [facility] Comment on above: Performed By: #### L [id number], [id number], LAB63, LAB17 ####Desktop Support Manager: MIGUEL LEAL ([phone])[facility] ([facility])[address] [place] [address] Potassium [Moles/Vol] 3.9 mmol/L Normal 3.5-5.1 [facility] Comment on above: Result Comment: [facility] potassium values may be up to 0.5 mmol/L lower than serum values. Performed By: #### L [id number], [id number], LAB63, LAB17 ####Desktop Support Manager: MIGUEL LEAL ([phone])[facility] ([facility])[address] [place] [address] Protein [Mass/Vol] 6.5 g/dL Normal 6.4-8.3 [facility] Comment on above: Performed By: #### L [id number], [id number], LAB63, LAB17 ####Desktop Support Manager: MIGUEL LEAL ([phone])[facility] ([facility])[address] [place] [address] Sodium [Moles/Vol] 135 mmol/L Low 136-145 [facility] Comment on above: Performed By: #### L [id number], [id number], LAB63, LAB17 ####Desktop Support Manager: MIGUEL LEAL ([phone])[facility] ([facility])[address] [place] [address] Urea nitrogen [Mass/Vol] 11 mg/dL Normal 9-23 [facility] Comment on above: Performed By: #### L [id number], [id number], LAB63, LAB17 ####Desktop Support Manager: MIGUEL LEAL ([phone])[facility])[address] [place] [address] Calculated very low density lipoprotein (VLDL) cholesterol measurementOrdered By: Hui Morel on 06-14-2025 Calculated very low density lipoprotein (VLDL) cholesterol measurement 18 mg/dL 5-40 [facility] Carbon dioxide, total [Moles /volume] in Central venous bloodOrdered By: Hui Maria Teresa on 06-14-2025 CO2 [Moles/Vol] 23.9 mmol/L 21.0-32.0 [facility] Chloride assayOrdered By: Ankita Morel on 06-14-2025 Chloride [Moles/Vol] 103 mmol/L 98-108 [facility] Comprehensive Metabolic Prof ilon 06-14-2025 Albumin [Mass/Vol] 3.7 g/dL Normal 3.4-4.8 [facility] Comment on above: Performed By: #### L 7000.0700 #### [facility] [address] [place], [address] Albumin/Globulin [Mass ratio] 1.7 {ratio} Normal 0.9-2.4 [facility] Comment on above: Performed By: #### L 7000.0700 #### [facility] [address] [place], [address] ALK PHOS 46 U/L Normal 35-104 [facility] Comment on above: Performed By: #### L 7000.0700 #### [facility] [address] [place], [address] ALT [Catalytic activity/Vol] 6 U/L Normal <=34 [facility] Comment on above: Performed By: #### L 7000.0700 #### [facility] [address] [place], [address] AST [Catalytic activity/Vol] 28 U/L Normal <=31 [facility] Comment on above: Performed By: #### L 7000.0700 #### [facility] [address] [place], [address] Bilirubin [Mass/Vol] 0.24 mg/dL Normal 0.00-1.30 [facility] Comment on above: Performed By: #### L 7000.0700 #### [facility] [address] [place], [address] BUN/CRE 34.4 RATIO High 10-20 [facility] Comment on above: Performed By: #### L 7000.0700 #### [facility] [address] [place], [address] Calcium [Mass/Vol] 8.4 mg/dL Normal 7.6-11.0 [facility] Comment on above: Performed By: #### L 7000.0700 #### [facility] [address] [place], [address] Chloride [Moles/Vol] 103 mmol/L Normal 98-108 [facility] Comment on above: Performed By: #### L 7000.0700 #### [facility] [address] [place], [address] CO2 [Moles/Vol] 23.9 mmol/L Normal 21.0-32.0 [facility] Comment on above: Performed By: #### L 7000.0700 #### [facility] [address] [place], [address] Creatinine [Mass/Vol] 0.56 mg/dL Low 0.70-1.20 [facility] Comment on above: Performed By: #### L 7000.0700 #### [facility] [address] [place], [address] ECRCL 51.04 ml/min Normal 50-250 [facility] Comment on above: Performed By: #### L 7000.0700 #### [facility] [address] [place], [address] GAP 11 Normal 5-15 [facility] Comment on above: Performed By: #### L 7000.0700 #### [facility] [address] [place], [address] GFR/1.73 sq M.predicted among non-blacks MDRD (S/P/Bld) [Vol rate/Area] 96 mL/min/{1.73_m2} Normal >60 [facility] Comment on above: Result Comment: mL/m in/1.73m2 CKD-EPI Creatinine Equation (2020) Performed By: #### L 7000.0700 #### [facility] [address] [place], [address] Globulin (S) [Mass/Vol] 2.2 g/dL Normal 2.2-4.2 [facility] Comment on above: Performed By: #### L 7000.0700 #### [facility] [address] [place], [address] Glucose [Mass/Vol] 96 mg/dL Normal 70-99 [facility] Comment on above: Performed By: #### L 7000.0700 #### [facility] [address] [place], [address] Potassium [Moles/Vol] 3.9 mmol/L Normal 3.3-5.1 [facility] Comment on above: Performed By: #### L 7000.0700 #### [facility] [address] [place], [address] Sodium [Moles/Vol] 137 mmol/L Normal 133-145 [facility] Comment on above: Performed By: #### L 7000.0700 #### [facility] [address] [place], [address] T PROT 5.9 g/dL Normal 5.9-8.4 [facility] Comment on above: Performed By: #### L 7000.0700 #### [facility] [address] [place], [address] Urea nitrogen [Mass/Vol] 19 mg/dL Normal 4-19 [facility] Comment on above: Performed By: #### L 7000.0700 #### [facility] [address] [place], [address] Comprehensive metabolic 1998 panelon 06-14-2025 Albumin [Mass/Vol] 3.7 g/dL 3.4 - 4.8 g/dL [facility] ALP [Catalytic activity/Vol] 50 U/L 40 - 150 U/L [facility] ALT [Catalytic activity/Vol] U/L NINF - 30 U/L [facility] Anion gap [Moles/Vol] 6 mmol/L 3 - 13 mmol/L [facility] AST [Catalytic activity/Vol] 34 U/L High NINF - 34 U/L [facility] Bilirubin [Mass/Vol] 0.4 mg/dL NINF - 1.2 mg/dL [facility] Calcium [Mass/Vol] 8.4 mg/dL Low 8.8 - 10. 0 mg/dL [facility] Chloride [Moles/Vol] 104 mmol/L 98 - 10 7 mmol/L [facility] CO2 [Moles/Vol] 25 mmol/L 23 - 31 mmol/L [facility] Creatinine [Mass/Vol] 0.62 mg/dL 0.57 - 1.11 mg/dL [facility] GFR/1.73 sq M.predicted (S/P/Bld) [Vol rate/Area] - PINF [facility] Glucose [Mass/Vol] 102 mg/dL 82 - 115 mg/dL [facility] Interpretation and review of laboratory results Abnormal [facility] Potassium [Moles/Vol] 3.9 mmol/L 3.5 - 5.1 mmol/L [facility] Protein [Mass/Vol] 6.5 g/dL 6.4 - 8.3 g/dL [facility] Sodium [Moles/Vol] 135 mmol/L Low 136 - 145 mmol/L [facility] Urea nitrogen [Mass/Vol] 11 mg/dL 9 - 23 mg/dL [facility] Consultation - Cardiologyon 06-14-2025 Consultation - Cardiology [facility] Medical Records Department [address] [place] [address] Consultation - Cardiology 06/14/25 0741 MR#: [id number] Acct: [id number] Name: RICHIE ARMAS Rep #: [id number] : 1950 75 From: Edil Hong MD PCP: Dr. Praveen Crum MD Status:ADM IN Location: ICU ICU03-1 Assessment Plan Assessment/Plan (1) NSTEMI, initial episode of care: PLAN: Patient presents with chest discomfort and a non-ST elevation myocardial infarction and typical pattern. At this point patient has been started on aspirin heparin intravenous nitroglycerin and have discussed with her with the risk benefits alternatives the plan is to undergo a left heart catheterization. She agrees to the above. (2) Hypercholesterolemia: PLAN: Depending on the results of the heart catheterization further recommendations will be made. PLAN: Plan Addendum: Cardiac catheterization done demonstrated triple-vessel disease with a subtotally occluded right coronary artery, along LAD 70% stenosis, and a high-grade obtuse marginal vessel. Ejection fraction was borderline at 50% with anterolateral hypokinesis. Would recommend transfer to a tertiary care facility for coronary bypass surgery HPI Consult Data Date of Consult: 06/14/25 HPI Narrative HPI Narrative: RICHIE ARMAS, is a 75 F who presents to the emergency room with exertional chest discomfort. She does have a history of hyperlipidemia and says that she takes daily walks and over the last few weeks she has noticed that she develops chest discomfort which radiates to her jaw when she exercises. It goes away when she rest. She has had no dizziness or diaphoresis no near-syncope or syncope she did present to the emergency room and was noted to be in sinus rhythm with a mildly elevated blood pressure but cardiac enzymes were noted to be abnormal and she was admitted to the intensive care unit for cardiology consultation. She is currently pain-free. [facility] Medical History Chronic idiopathic constipation CKD (chronic kidney disease), stage II GERD (gastroesophageal reflux disease) IBS (irritable bowel syndrome) HTN (hypertension) Raynaud disease Fibromyalgia Cataract High cholesterol Hypothyroidism Home Medications ???Medication ???Instructions ???Recorded ???Last Taken ???Type amitriptyline 50 mg tablet 50 mg PO DAILY 11/12/15 06/12/25 H istory alendronate 70 mg tablet 70 mg PO .weekly 01/25/25 06/12/25 History levothyroxine 75 mcg tablet 75 mcg PO DAILY 01/25/25 06/13/25 History nifedipine 30 mg tablet,extended 30 mg PO DAILY 01/25/25 06/13/25 H istory release pantoprazole 20 mg tablet,delayed 20 mg PO QDAY 01/25/25 06/13/25 H istory release tizanidine 4 mg tablet 4 mg PO QHS 01/25/25 06/12/25 Hist ory tramadol 50 mg tablet 50 mg PO PRN 01/25/25 Unknown Hist ory lubiprostone 24 mcg capsule 24 mcg PO BID 06/13/25 06/13/25 Hi story venlafaxine 37.5 mg 37.5 mg PO DAILY depression Unknown History capsule,extended release 24 hr Allergy/AdvReac Type Severity Reaction Status Date / Time cyclobenzaprine HCl (From AdvReac Other Verified 06/13/25 17:31 Flexeril) promethazine (From Phenergan) AdvReac Other Verified 06/13/25 17:31 Hdnhgmo-MJS-[id number] Reductase AdvReac Pain in Verified 06/13/25 17:31 Inhibitor joints Family History Father Heart disease CAD (coronary artery disease) Hypertension Myocardial infarction HLD (hyperlipidemia) Mother Hypertension Surgical History Previous back surgery H/O wrist surgery History of ankle surgery H/O shoulder surgery Social History household members: spouse Smoking Status: Never smoker alcohol intake: current alcohol intake frequency: holidays/special occasions only substance use type: does not use ROS Constitutional Constitutional: Denies fever(s) or weight loss Eyes Eyes: Reports systems reviewed and no addt'l complaints, except as documented ENT HEENT: Reports systems reviewed and no addt'l complaints, except as documented Cardiovascular Cardiovascular: Reports chest pain with activity and dyspnea on exertion; Denies chest pain at rest, dyspnea at rest, edema, palpitations or paroxysmal nocturnal dyspnea Respiratory/Chest Respiratory/Chest: Denies dyspnea on exertion, productive cough, shortness of breath at rest or shortness of breath with exertion Gastrointestinal Gastrointestinal: Denies change in bowel habits, nausea, vomiting or weight changes Genitourinary Genitourinary: Denies difficulty urinating Musculoskeletal Musculoskeletal: Denies joint stiffness or muscle weakness Integumentary Integumenta (more content not included)... Normal [facility] ECG 12-LEADon 06-14-2025 ECG 12-LEAD IMPRESSION: Sinus rhythm Ventricular premature complex Minimal ST depression, anterolateral leads Electronically Signed On 06-14-2025 17:05:24 EDT by Thierno Germain Normal [facility] Eosinophil percentageOrdered By: Hui White on 06-14-2025 Eosinophils/100 WBC (Bld) 0.9 % 0-5 [facility] Erythrocyte distribution wid th ratioOrdered By: Hui White on 06-14-2025 Erythrocyte distribution width (RBC) [Ratio] 13.3 % 11.6-14.6 [facility] Erythrocyte distribution wid th standard deviationOrdered By: Hui White on 06-14-2025 Erythrocyte distribution width (RBC) [Ratio] 46.9 fl High 35.1-43.9 [facility] Glomerular filtration rate ( GFR) estimation/1.73 sq m using serum, plasma, or whole bOrdered By: Hui White on 06-14-2025 GFR/1.73 sq M.predicted among non-blacks MDRD (S/P/Bld) [Vol rate/Area] 96 mL/min/{1.73_m2} >60 [facility] Comment on above: mL/min/1.73m2 CKD-EP I Creatinine Equation (2020) HIGH SENSITIVITY TROPONIN, S ERIAL BASELINEon 06-14-2025 TROPONIN HS SERIAL BASELINE 304 ng/L Critically high <=14 [facility] Comment on above: Result Comment: In i ndividuals presenting with symptoms > 2h, a baseline troponin <= 5 ng/L suggests acute cardiac injury is unlikely and further serial testing is generally not indicated. Performed By: #### L [id number], [id number], LAB63, LAB17 ####Desktop Support Manager: MIGUEL LEAL ([phone])[address] HIGH SENSITIVITY TROPONIN, S ERIAL, SECOND TESTon 06-14-2025 2H TROPONIN HS (SERIAL 2ND TROPONIN) 318 ng/L Critically high <=14 [facility] Comment on above: Result Comment: 2h t roponin (2nd troponin) samples collected between 1h 40 min and 2h and 20 min of the baseline collection time can be utilized to interpret delta troponins as per [employer] algorithms. Samples collected outside this timeframe need to be interpreted clinically. Rising or falling troponin delta between 2 ??? 15 ng/L as compared to baseline value requires a 3rd serial troponin Performed By: #### L [id number] ####Desktop Support Manager: MIGUEL LEAL ([phone])[facility])[address] [place] [address] HIGH SENSITIVITY TROPONIN, S POLA, THIRD TESTon 06-14-2025 4H TROPONIN HS (SERIAL 3RD TROPONIN) 281 ng/L Critically high <=14 [facility] Comment on above: Result Comment: 4h t roponin (3rd troponin) samples collected between 1h 40 min and 2h and 20 min of the 2h troponin collection time can be utilized to interpret delta troponins as per [employer] algorithms. Samples collected outside this timeframe need to be interpreted clinically. Rising or falling troponin delta greater than 15 ng/L as compared to 2h troponin value is significant for acute cardiac injury. Performed By: #### L [id number] ####Desktop Support Manager: MIGUEL LEAL ([id number])[facility] ([facility])[address] [place] [address] Hematocrit Auto (Bld) [Volum e fraction]Ordered By: Hui Morel on 06-14-2025 Hematocrit (Bld) [Volume fraction] 36.1 % Low 37-47 [facility] Hemoglobin measurementOrdere d By: Hui Morel on 06-14-2025 Hemoglobin (Bld) [Mass/Vol] 12.1 g/dL 12.0-15.0 [facility] Immature granulocytes/100 WB C Auto (Bld)Ordered By: Hui Morel on 06-14-2025 Immature granulocytes/100 WBC (Bld) 0.400 % 0.0-0.9 [facility] Comment on above: IG% - Immature Granu locytes (promyelocytes, myelocytes and metamyelocytes) > 1% indicates that a LEFT SHIFT is Present. LDL calc ser/plasOrdered By: Hui Morel on 06-14-2025 Cholesterol in LDL [Mass/Vol] 166 mg/dL [facility] Comment on above: Xphshsczbv=346-795 m g/dL & Higher Yavn=449 mg/dL or greater Laboratory - Chemistry and C hemistry - challengeon 06-14-2025 TSH Qn 2.71 m[IU]/L [facility] Laboratory - Chemistry and C hemistry - challengeOrdered By: Hui Morel on 06-14-2025 AST [Catalytic activity/Vol] 28 U/L <32 [facility] Lipid Profileon 06-14-2025 CHOL:HDL 2.92 Normal [facility] Comment on above: Performed By: #### L 0.0700 #### [facility] [address] [place], [address] Cholesterol [Mass/Vol] 280 mg/dL High <=200 [facility] Comment on above: Result Comment: Chol esterol level, Desirable <200 mg/dL Borderline high cholesterol 200-239 mg/dL High cholesterol >=240 mg/dL Recommendations of the NCEP Adult Treatment Panel for the following risk-cutoff thresholds for the [place] population. Performed By: #### L 0.0700 #### [facility] [address] [place], [address] Cholesterol in HDL [Mass/Vol] 96 mg/dL Normal [facility] Comment on above: Result Comment: Yudy onal Cholesterol Education Program (NCEP) guidelines: <40 mg/dL: Low HDL-cholesterol (major risk factor for CHD) >= 60 mg/dL: High HDL-cholesterol (negative risk factor for CHD) HDL-cholesterol is affected by a number of factors, e.g. smoking, exercise, hormones, sex and age. Performed By: #### L 7000.0700 #### [facility] [address] [place], [address] Cholesterol in LDL [Mass/Vol] 166 mg/dL Normal [facility] Comment on above: Result Comment: Bord wruksi=805-103 mg/dL Higher Igkf=036 mg/dL or greater Performed By: #### L 7000.0700 #### [facility] [address] [place], [address] Cholesterol in VLDL [Mass/Vol] 18 mg/dL Normal 5-40 [facility] Comment on above: Performed By: #### L 7000.0700 #### [facility] [address] [place], [address] Triglyceride [Mass/Vol] 89 mg/dL Normal [facility] Comment on above: Result Comment: The drugs N-Acetylcysteine and Metamizole may falsely depress this assay. Normal range: <150 mg/dL Borderline High: 150-199 mg/dL High: 200-499 mg/dL Very High: >500 mg/dL Performed By: #### L 7000.0700 #### [facility] [address] [place], [address] MCV (mean corpuscular volume ) determinationOrdered By: Hui Morel on 06-14-2025 MCV (RBC) [Entitic vol] 95.0 fL 81-99 [facility] Mean corpuscular hemoglobin (MCH) determinationOrdered By: Hui Maria Teresa on 06-14-2025 MCH (RBC) [Entitic mass] 31.8 pg 27.0-32.0 [facility] Mean corpuscular hemoglobin concentration (MCHC) determinationOrdered By: on 06-14-2025 MCHC (RBC) [Mass/Vol] 33.5 g/dL 32-36 [facility] Mean platelet volume determi nationOrdered By: Hui Maria Teresa on 06-14-2025 Platelet mean volume (Bld) [Entitic vol] 10.5 fL 6.2-12.0 [facility] Monocyte percentageOrdered B y: Hui Maria Teresa on 06-14-2025 Monocytes/100 WBC (Bld) 8.7 % 0-10 [facility] Neutrophil percentageOrdered By: Maria Teresa on 06-14-2025 Neutrophils/100 WBC (Bld) 44.3 % Low 47-70 [facility] No Panel Informationon 06-14 4h Troponin HS (Serial 3rd Troponin) 281 ng/L Critically high NINF - 14 ng/L [facility] Interpretation and review of laboratory results Abnormal [facility] 2h Troponin HS (Serial 2nd Troponin) 318 ng/L Critically high NINF - 14 ng/L [facility] [employer] Interpretation and review of laboratory results Abnormal [facility] Partly CV EPIPHANY [facility] No Panel InformationOrdered By: Preethi Pina on 06-14-2025 Interpretation and review of laboratory results Abnormal [facility] [employer] Troponin HS Serial Baseline 304 ng/L Critically high NINF - 14 ng/L [facility] [employer] No Panel InformationOrdered By: Thierno Germain on 06-14-2025 P [place] 61 degrees [employer] Work Phone: [place] Interval 157 ms [employer] Work Phone: QRS [place] 49 degrees [facility] Work Phone: QRSD Interval 86 ms [employer] Work Phone: QT Interval 376 ms [facility] Work Phone: QTC Interval 419 ms [facility] Work Phone: T Wave [place] 35 degrees [employer] Work Phone: [facility] Work Phone: Nucleated red blood cell per centageOrdered By: Hui Morel on 06-14-2025 Nucleated RBC/100 WBC (Bld) [Ratio] 0 % 0-5 [facility] Partial Thromboplast Timeon 06-14-2025 aPTT Coag (Bld) [Time] 111.8 s Invalid Interpretation Code 24.1-36.2 [facility] Comment on above: Result Comment: CRIT ICAL VALUE CALLED TO OLEKSANDR 06/14/25 0145 Maxim Gurrola. RESULTS READ BACK BY SAME. Performed By: #### L 300.6691 #### [facility] [address] [place], [place], [id number] Platelet countOrdered By: Ankita Morel on 06-14-2025 Platelets (Bld) [#/Vol] 220 10*3/uL 150-450 [facility] Potassium measurement (mass/ volume)Ordered By: Hui Morel on 06-14-2025 Potassium (Unsp spec) [Mass/Vol] 3.9 mmol/L 3.3-5.1 [facility] Prothrombin Time w/INRon INR Normal [facility] Comment on above: Order Comment: Comme nts: If not done in prior 24 hours Result Comment: OK T O CANCEL BY TDEVEREAUX Performed By: #### L 300.3900, L100.0100 #### [facility] [address] [place], [address] PROTIME Normal 11.7-14.9 [facility] Comment on above: Order Comment: Comme nts: If not done in prior 24 hours Result Comment: OK T O CANCEL BY TDEVEREAUX Performed By: #### L 300.3900, L100.0100 #### [facility] [address] [place], [address] RBC Auto (Bld) [#/Vol]Ordere d By: Hui Morel on 06-14-2025 RBC (Bld) [#/Vol] 3.80 10*6/uL Low 4.2-5.4 [facility] Screening total cholesterol/ high density lipoprotein (HDL) cholesterol ratioOrdered By: Hui Morel on 06-14-2025 Cholesterol.total/Mel sterol in HDL [Mass ratio] 2.92 {ratio} [facility] Serum creatinine measurement (mass/volume)Ordered By: Hui Morel on 06-14-2025 Creatinine [Mass/Vol] 0.56 mg/dL Low 0.70-1.20 [facility] Serum globulin measurementOr dered By: Hui Morel on 06-14-2025 Globulin (S) [Mass/Vol] 2.2 g/dL 2.2-4.2 [facility] Serum glucose measurement (m ass/volume)Ordered By: Hui Morel on 06-14-2025 Glucose [Mass/Vol] 96 mg/dL 70-99 [facility] Serum or plasma alanine carbajal otransferase (ALT) measurementOrdered By: Hui Morel on 06-14-2025 ALT [Catalytic activity/Vol] 6 U/L <35 [facility] Serum or plasma albumin jill urement (mass/volume)Ordered By: Hui Morel on 06-14-2025 Albumin [Mass/Vol] 3.7 g/dL 3.4-4.8 [facility] Serum or plasma albumin/glob ulin mass ratioOrdered By: Hui Morel on 06-14-2025 Albumin/Globulin [Mass ratio] 1.7 {ratio} 0.9-2.4 [facility] Serum or plasma alkaline kal sphatase measurementOrdered By: Hui Morel on 06-14-2025 ALP [Catalytic activity/Vol] 46 U/L 35-104 [facility] Serum or plasma calcium jill urement (mass/volume)Ordered By: Hui Morel on 06-14-2025 Calcium [Mass/Vol] 8.4 mg/dL 7.6-11.0 [facility] Serum or plasma cholesterol in HDL measurement (mass/volume)Ordered By: Hui Morel on 06-14-2025 Cholesterol in HDL [Mass/Vol] 96 mg/dL >40 [facility] Comment on above: National Cholesterol Education Program (NCEP) guidelines:<40 mg/dL: Low HDL-cholesterol (major risk factor for CHD)>= 60 mg/dL: High HDL-cholesterol (negative risk factor for CHD)HDL-cholesterol is affected by a number of factors, e.g. smoking, exercise, hormones, sex and age. Serum or plasma cholesterol measurement (mass/volume)Ordered By: Hui Morel on 06-14-2025 Cholesterol [Mass/Vol] 280 mg/dL High <201 [facility] Comment on above: Cholesterol level, D esirable <200 mg/dLBorderline high cholesterol 200-239 mg/dLHigh cholesterol >=240 mg/dLRecommendations of the NCEP Adult Treatment Panel for the following risk-cutoff thresholds for the [place] population. Serum or plasma urea nitroge n measurement (mass/volume)Ordered By: Hui Morel on 06-14-2025 Urea nitrogen [Mass/Vol] 19 mg/dL 4-19 [facility] Sodium levelOrdered By: Autu thien Morel on 06-14-2025 Sodium [Moles/Vol] 137 mmol/L 133-145 [facility] THYROID STIMULATING HORMONEo n 06-14-2025 THYROID STIMULATING HORMONE 2.71 uIU/mL Normal 0.35-4.94 [facility] Comment on above: Performed By: #### L [id number], EJH600, LAB63, LAB17 ####Desktop Support Manager: MIGUEL LEAL ([id number])[facility] ([facility])[address] [place] [address] [place] TSH Qnon 06-14-2025 Interpretation and review of laboratory results Normal [facility] Total proteinOrdered By: Yonas Morel on 06-14-2025 Protein [Mass/Vol] 5.9 g/dL 5.9-8.4 [facility] Triglycerides measurementOrd ered By: Hui Morel on 06-14-2025 Triglyceride [Mass/Vol] 89 mg/dL <199 [facility] Comment on above: The drugs N-Acetylcy steine and Metamizole may falsely depress this assay. Normal range: <150 mg/dLBorderline High: 150-199 mg/dLHigh: 200-499 mg/dLVery High: >500 mg/dL Troponin T HS 2 HRon 025 Trop T High Sen 88 ng/L Invalid Interpretation Code <=14 [facility] Comment on above: Result Comment: Hemo lysis present, Results??could be affected.??Critical Result(s) Called at: by:??Results read back by same. CRITICAL VALUE CALLED TO TDEVERAUX 06/14/25 0005 Maxim Gurrola. RESULTS READ BACK BY SAME. AMENDED REPORT 06/14/25 0005 Trop T HS 2HR previously reported as: 88 *H ng/L Hemolysis present, Results??could be affected. ?? Critical Result(s) Called at: by:??Results read back by same. Performed By: #### L 499.0042 #### [facility] [address] [place], [address] Troponin T HS 4 HRon 025 Trop T High Sen 114 ng/L Invalid Interpretation Code <=14 [facility] Comment on above: Result Comment: Crit ical Result(s) Called at 0137: by:??NBURNS TO TDEVERUEAX Results read back by same. Performed By: #### L 499.0043 #### [facility] [address] [place], [address] Troponin T.cardiac [Mass/vol ume] in Serum or Plasma by High sensitivity methodOrdered By: Efren Moss on 06-14-2025 Troponin T.cardiac High sensitivity method [Mass/Vol] 114 ng/L High <14 [facility] Comment on above: Critical Result(s) C alled at 0137: by: NBURNS TO TDEVERUEAX Results read back by same. Vital signsOrdered By: Juarez Germain on 06-14-2025 Heart rate 75 /min bpm [facility] [employer] Work Phone: White blood cell (WBC) count Ordered By: Hui Morel on 06-14-2025 WBC (Bld) [#/Vol] 5.4 10*3/uL 4.4-11.0 [facility] aPTT Coag (Bld) [Time]on aPTT Coag (PPP) [Time] 36.9 s High 20.0 - 30.5 s [facility] Interpretation and review of laboratory results Abnormal [facility] 12 Lead EKGon 06-13-2025 12 Lead EKG [facility] Cardiovascular Services [address] [place] [address] 12 Lead EKG 06/13/25 1740 MR#: [id number] Acct: [id number] Name: RICHIE ARMAS Rep #: [id number] : 1950 75 From: Edil Hong MD Attending Dr: Dr. Aftab Lucero, DO Status: D IS IN Ordering Dr: Hui Morel MD Date: 06/13/25 Location: ICU Sex: F C Admitted: 06/13/25 Test Reason : Blood Pressure : */* mmHG Vent. Rate : 77 BPM Atrial Rate : 77 BPM P-R Int : 160 ms QRS Dur : 88 ms QT Int : 390 ms P-R-T Axes : 65 55 55 degrees QTcB Int : 441 ms Normal sinus rhythm Nonspecific T wave abnormality Abnormal ECG Confirmed by EDIL HONG MD ([id number]), avid editor ENZO PATE ([id number]) on 06/17/2025 9:41:04 AM Referred By: MILES Confirmed By: EDIL HONG MD 06/17/25 0941 Date Edil Hong MD CC: Dr. Hui Morel MD; Dr. Praveen Crum MD; Dr. Aftab Lucero, DO Signed Normal [facility] Absolute lymphocyte countOrd ered By: Efren Moss on 06-13-2025 Lymphocytes Auto (Unsp spec) [#/Vol] 1.92 10*3/uL 0.83-4.51 [facility] Absolute neutrophil countOrd ered By: [facility] on 06-13-2025 Neutrophils (Bld) [#/Vol] 3.2 10*3/uL 2.0-7.7 [facility] Anion gap in Serum or Plasma Ordered By: [facility] on 06-13-2025 Anion gap [Moles/Vol] 11 mmol/L 5-15 [facility] Automated lymphocyte count a s percentage of total leukocytesOrdered By: [facility] on 06-13-2025 Lymphocytes/100 WBC Auto (Unsp spec) 34.0 % 19-41 [facility] BUN/creatinine ratioOrdered By: [facility] on 06-13-2025 Urea nitrogen/Creatinine [Mass ratio] 32.4 mg/mg High 10-20 [facility] Basic Metabolic Profile (BMP )on 06-13-2025 BUN/CRE 32.4 RATIO High - [facility] Comment on above: Performed By: #### L 6999.00 #### [facility] [address] [place], [address] Calcium [Mass/Vol] 9.4 mg/dL Normal 7.6-11.0 [facility] Comment on above: Performed By: #### L 0.0700 #### [facility] [address] [place], [address] Chloride [Moles/Vol] 99 mmol/L Normal 98-108 [facility] Comment on above: Performed By: #### L 0.0700 #### [facility] [address] [place], [address] CO2 [Moles/Vol] 26.9 mmol/L Normal 21.0-32.0 [facility] Comment on above: Performed By: #### L 7000.0700 #### [facility] [address] [place], [address] Creatinine [Mass/Vol] 0.71 mg/dL Normal 0.70-1.20 [facility] Comment on above: Performed By: #### L 7000.0700 #### [facility] [address] [place], [address] ECRCL 51.04 ml/min Normal 50-250 [facility] Comment on above: Performed By: #### L 7000.0700 #### [facility] [address] [place], [address] GAP 11 Normal 5-15 [facility] Comment on above: Performed By: #### L 7000.0700 #### [facility] [address] [place], [address] GFR/1.73 sq M.predicted among non-blacks MDRD (S/P/Bld) [Vol rate/Area] 89 mL/min/{1.73_m2} Normal >60 [facility] Comment on above: Result Comment: mL/m in/1.73m2 CKD-EPI Creatinine Equation (2020) Performed By: #### L 7000.0700 #### [facility] [address] [place], [address] Glucose [Mass/Vol] 112 mg/dL High 70-99 [facility] Comment on above: Performed By: #### L 7000.0700 #### [facility] [address] [place], [address] Potassium [Moles/Vol] 4.4 mmol/L Normal 3.3-5.1 [facility] Comment on above: Performed By: #### L 7000.0700 #### [facility] [address] [place], [address] Sodium [Moles/Vol] 136 mmol/L Normal 133-145 [facility] Comment on above: Performed By: #### L 7000.0700 #### [facility] [address] [place], [address] Urea nitrogen [Mass/Vol] 23 mg/dL High 4-19 [facility] Comment on above: Performed By: #### L 7000.0700 #### [facility] [address] [place], [address] Basophil percentageOrdered B y: Efren Moss on 06-13-2024 Basophils/100 WBC (Bld) 0.5 % 0-1 [facility] CBC W/Diff, Automatedon 05-22 Absolute Lymph 1.92 X10 3/uL Normal 0.83-4.51 [facility] Comment on above: Order Comment: Comme nts: If not done in prior 24 hours Performed By: #### L 100.0100, L300.4310, L300.3900 #### [facility] [address] [place], [address] Absolute Neut 3.2 X10 3/uL Normal 2.0-7.7 [facility] Comment on above: Order Comment: Comme nts: If not done in prior 24 hours Performed By: #### L 100.0100, L300.4310, L300.3900 #### [facility] [address] [place], [address] Basophils/100 WBC (Bld) 0.5 % Normal 0-1 [facility] Comment on above: Order Comment: Comme nts: If not done in prior 24 hours Performed By: #### L 100.0100, L300.4310, L300.3900 #### [facility] [address] [place], [address] Eosinophils/100 WBC (Bld) 0.5 % Normal 0-5 [facility] Comment on above: Order Comment: Comme nts: If not done in prior 24 hours Performed By: #### L 100.0100, L300.4310, L300.3900 #### [facility] [address] [place], [address] Erythrocyte distribution width (RBC) [Ratio] 13.5 % Normal 11.6-14.6 [facility] Comment on above: Order Comment: Comme nts: If not done in prior 24 hours Performed By: #### L 100.0100, L300.4310, L300.3900 #### [facility] [address] [place], [address] Hematocrit (Bld) [Volume fraction] 39.1 % Normal 37-47 [facility] Comment on above: Order Comment: Comme nts: If not done in prior 24 hours Performed By: #### L 100.0100, L300.4310, L300.3900 #### [facility] [address] [place], [address] Hemoglobin (Bld) [Mass/Vol] 12.7 g/dL Normal 12.0-15.0 [facility] Comment on above: Order Comment: Comme nts: If not done in prior 24 hours Performed By: #### L 100.0100, L300.4310, L300.3900 #### [facility] [address] [place], [address] IG% 0.200 Normal 0.0-0.9 [facility] Comment on above: Order Comment: Comme nts: If not done in prior 24 hours Result Comment: IG% - Immature Granulocytes (promyelocytes, myelocytes and metamyelocytes) > 1% indicates that a LEFT SHIFT is Present. Performed By: #### L 100.0100, L300.4310, L300.3900 #### [facility] [address] [place], [address] Lymphocytes/100 WBC (Bld) 34.0 % Normal 19-41 [facility] Comment on above: Order Comment: Comme nts: If not done in prior 24 hours Performed By: #### L 100.0100, L300.4310, L300.3900 #### [facility] [address] [place], [address] MCH (RBC) [Entitic mass] 31.4 pg Normal 27.0-32.0 [facility] Comment on above: Order Comment: Comme nts: If not done in prior 24 hours Performed By: #### L 100.0100, L300.4310, L300.3900 #### [facility] [address] [place], [address] MCHC (RBC) [Mass/Vol] 32.5 g/dL Normal 32-36 [facility] Comment on above: Order Comment: Comme nts: If not done in prior 24 hours Performed By: #### L 100.0100, L300.4310, L300.3900 #### [facility] [address] [place], [address] MCV (RBC) [Entitic vol] 96.5 fL Normal 81-99 [facility] Comment on above: Order Comment: Comme nts: If not done in prior 24 hours Performed By: #### L 100.0100, L300.4310, L300.3900 #### [facility] [address] [place], [address] Monocytes/100 WBC (Bld) 9.0 % Normal 0-10 [facility] Comment on above: Order Comment: Comme nts: If not done in prior 24 hours Performed By: #### L 100.0100, L300.4310, L300.3900 #### [facility] [address] [place], [address] Neutrophils/100 WBC (Bld) 55.8 % Normal 47-70 [facility] Comment on above: Order Comment: Comme nts: If not done in prior 24 hours Performed By: #### L 100.0100, L300.4310, L300.3900 #### [facility] [address] [place], [address] Nucleated RBC (Bld) [#/Vol] 0 10*3/uL Normal 0-5 [facility] Comment on above: Order Comment: Comme nts: If not done in prior 24 hours Performed By: #### L 100.0100, L300.4310, L300.3900 #### [facility] [address] [place], [address] Platelet mean volume (Bld) [Entitic vol] 10.4 fL Normal 6.2-12.0 [facility] Comment on above: Order Comment: Comme nts: If not done in prior 24 hours Performed By: #### L 100.0100, L300.4310, L300.3900 #### [facility] [address] [place], [address] Platelets (Bld) [#/Vol] 241 10*3/uL Normal 150-450 [facility] Comment on above: Order Comment: Comme nts: If not done in prior 24 hours Performed By: #### L 100.0100, L300.4310, L300.3900 #### [facility] [address] [place], [address] RBC (Bld) [#/Vol] 4.05 10*6/uL Low 4.2-5.4 [facility] Comment on above: Order Comment: Comme nts: If not done in prior 24 hours Performed By: #### L 100.0100, L300.4310, L300.3900 #### [facility] [address] [place], [address] RDW SD 48.6 fl High 35.1-43.9 [facility] Comment on above: Order Comment: Comme nts: If not done in prior 24 hours Performed By: #### L 100.0100, L300.4310, L300.3900 #### [facility] [address] [place], [address] WBC (Bld) [#/Vol] 5.7 10*3/uL Normal 4.4-11.0 [facility] Comment on above: Order Comment: Comme nts: If not done in prior 24 hours Performed By: #### L 100.0100, L300.4310, L300.3900 #### [facility] [address] [place], [address] Absolute Lymph 2.31 X10 3/uL Normal 0.83-4.51 [facility] Comment on above: Performed By: #### L 7000.0700 #### [facility] [address] [place], [address] Absolute Neut 3.4 X10 3/uL Normal 2.0-7.7 [facility] Comment on above: Performed By: #### L 7000.0700 #### [facility] [address] [place], [address] Basophils/100 WBC (Bld) 0.5 % Normal 0-1 [facility] Comment on above: Performed By: #### L 7000.0700 #### [facility] [address] [place], [address] Eosinophils/100 WBC (Bld) 0.6 % Normal 0-5 [facility] Comment on above: Performed By: #### L 7000.0700 #### [facility] [address] [place], [address] Erythrocyte distribution width (RBC) [Ratio] 13.5 % Normal 11.6-14.6 [facility] Comment on above: Performed By: #### L 0.0700 #### [facility] [address] [place], [address] Hematocrit (Bld) [Volume fraction] 41.6 % Normal 37-47 [facility] Comment on above: Performed By: #### L 7000.0700 #### [facility] [address] [place], [address] Hemoglobin (Bld) [Mass/Vol] 13.6 g/dL Normal 12.0-15.0 [facility] Comment on above: Performed By: #### L 7000.0700 #### [facility] [address] [place], [address] IG% 0.300 Normal 0.0-0.9 [facility] Comment on above: Result Comment: IG% - Immature Granulocytes (promyelocytes, myelocytes and metamyelocytes) > 1% indicates that a LEFT SHIFT is Present. Performed By: #### L 7000.0700 #### [facility] [address] [place], [address] Lymphocytes/100 WBC (Bld) 36.0 % Normal 19-41 [facility] Comment on above: Performed By: #### L 7000.0700 #### [facility] [address] [place], [address] MCH (RBC) [Entitic mass] 31.5 pg Normal 27.0-32.0 [facility] Comment on above: Performed By: #### L 7000.0700 #### [facility] [address] [place], [address] MCHC (RBC) [Mass/Vol] 32.7 g/dL Normal 32-36 [facility] Comment on above: Performed By: #### L 7000.0700 #### [facility] [address] [place], [address] MCV (RBC) [Entitic vol] 96.3 fL Normal 81-99 [facility] Comment on above: Performed By: #### L 7000.0700 #### [facility] [address] [place], [address] Monocytes/100 WBC (Bld) 8.9 % Normal 0-10 [facility] Comment on above: Performed By: #### L 7000.0700 #### [facility] [address] [place], [address] Neutrophils/100 WBC (Bld) 53.7 % Normal 47-70 [facility] Comment on above: Performed By: #### L 7000.0700 #### [facility] [address] [place], [address] Nucleated RBC (Bld) [#/Vol] 0 10*3/uL Normal 0-5 [facility] Comment on above: Performed By: #### L 7000.0700 #### [facility] [address] [place], [address] Platelet mean volume (Bld) [Entitic vol] 10.6 fL Normal 6.2-12.0 [facility] Comment on above: Performed By: #### L 7000.0700 #### [facility] [address] [place], [address] Platelets (Bld) [#/Vol] 264 10*3/uL Normal 150-450 [facility] Comment on above: Performed By: #### L 7000.0700 #### [facility] [address] [place], [address] RBC (Bld) [#/Vol] 4.32 10*6/uL Normal 4.2-5.4 [facility] Comment on above: Performed By: #### L 7000.0700 #### [facility] [address] [place], [address] RDW SD 48.3 fl High 35.1-43.9 [facility] Comment on above: Performed By: #### L 7000.0700 #### [facility] [address] [place], [address] WBC (Bld) [#/Vol] 6.4 10*3/uL Normal 4.4-11.0 [facility] Comment on above: Performed By: #### L 7000.0700 #### [facility] [address] [place], [address] Carbon dioxide, total [Moles /volume] in Central venous bloodOrdered By: Efren Moss on 06-13-2025 CO2 [Moles/Vol] 26.9 mmol/L 21.0-32.0 [facility] Chest 1 View (Portable)on Chest 1 View (Portable) [facility] Imaging Services [address] [place] [address] Chest 1 View (Portable) MR#: [id number] Acct: [id number] Name: RICHIE ARMAS Rep #: [id number] : 1950 F 75 From: Ana Radford PCP: Dr. Praveen Crum MD Status: [facility] ER Study: Chest 1 View (Portable) Date of Exam: 06/13/25 Exam# [id number] Ordering Dr: Efren Moss MD PROCEDURE: CHEST 1 VIEW (PORTABLE) 06/13/2025 REASON FOR EXAM: CHEST PAIN TECHNIQUE: Frontal view of the chest. COMPARISON: 12/20/2023 FINDINGS: No focal consolidation. No pleural effusion or pneumothorax. Cardiac silhouette is within normal limits. Calcified aortic arch. Calcific tendinopathy of the right shoulder. RAD/Chest 1 View (Portable) IMPRESSION: No focal consolidations. Reading Location: [id number] CC: Dr. Praveen Crum MD; Dr. Efren Moss MD Oncology Radiation Physician: Signed Normal [facility] Chloride assayOrdered By: Margaret Moss on 06-13-2025 Chloride [Moles/Vol] 99 mmol/L 98-108 [facility] Echo Completeon 06-13-2025 Echo Complete [facility] Cardiovascular Services [address] [place] [address] Echo Complete 06/14/25 0745 MR#: [id number] Acct: [id number] Name: RICHIE ARMAS Rep #: [id number] : 1950 75 From: Edil Hong MD Attending Dr: Dr. Aftab Lucero, DO Status: D IS IN Ordering Dr: Hui Morel MD Date: 06/13/25 Location: ICU Sex: F C Admitted: 06/13/25 Reason For Study Reason For Study: NSTEMI Procedure This was a 2D Doppler, Color Flow transthoracic echocardiogram. Exam performed portable in ICU/CCU. Left Ventricle Normal LV size. The left ventricular ejection fraction is 45 %. Stage 1 diastolic dysfunction. Mid- Anterior : Hypokinetic. [place] : Hypokinetic. Mid-anteroseptal : Hypokinetic. There are regional wall motion abnormalities as specified. Right Ventricle Normal RV size. Normal systolic function. Atria The left and right atria are normal. Normal right atrium. Mitral Valve Normal mitral valve. Tricuspid Valve Normal tricuspid valve. Mild (1+) tricuspid valve insufficiency. Pulmonary artery systolic pressure is 28 mmHg. Aortic Valve Trisinus/trileaflet aortic valve. Pulmonic Valve Normal pulmonic valve. Great Vessels Normal aortic root. The pulmonary artery is normal size. Inferior vena cava collapse with respiration. Pericardium/Pleural No pericardial effusion. MMode/2D Measurements Calculations LVIDd: 4.3 cm IVSd: 0.97 cm LVOT diam: 1.9 cm LVIDs: 3.3 cm LVPWd: 0.98 cm LVOT area: 3.0 cm2 RVDd: 3.5 cm FS: 24.6 % Ao root diam: 3.4 cm LAV(MOD-bp): 30.9 ml LVAd ap4: 25.4 cm2 LAV(MOD-bp) Indexed: 18.7 ml/m2 LVLd ap4: 7.5 cm LAV(MOD-sp2): 29.1 ml EDV(MOD-sp4): 69.7 ml LAV(MOD-sp4): 32.0 ml EDV(sp4-el): 72.6 ml LVAs ap4: 17.3 cm2 LVLs ap4: 6.7 cm ESV(MOD-sp4): 37.3 ml ESV(sp4-el): 37.8 ml EF(MOD-sp4): 46.4 % EF(sp4-el): 47.8 % LVAd ap2: 26.7 cm2 SV(MOD-sp4): 32.3 ml SV(MOD-sp2): 44.0 ml LVLd ap2: 8.0 cm SI(MOD-sp4): 19.6 ml/m2 SI(MOD-sp2): 26.7 ml/m2 EDV(MOD-sp2): 75.8 ml EDV(sp2-el): 75.5 ml LVAs ap2: 16.4 cm2 LVLs ap2: 7.0 cm ESV(MOD-sp2): 31.8 ml ESV(sp2-el): 32.4 ml EF(MOD-sp2): 58.1 % SV(sp4-el): 34.7 ml LA A4 area: 13.2 cm2 RA A4 area: 9.0 cm2 TAPSE: 2.6 cm Doppler Measurements Calculations MV E max mayda: 51.7 cm/sec Lat Peak E' Mayda: 5.0 cm/sec Med Peak E' Mayda: 4.8 cm/sec MV A max mayda: 107.5 cm/sec E/E' lat: 10.4 E/E' med: 10.8 MV E/A: 0.48 Ao V2 max: 130.6 cm/sec LV V1 max: 95.3 cm/sec SV(LVOT): 68.8 ml Ao max P.8 mmHg LV V1 max P.6 mmHg Ao V2 mean: 90.0 cm/sec LV V1 mean P.1 mmHg Ao mean P.7 mmHg LV V1 mean: 69.2 cm/sec Ao V2 VTI: 30.3 cm LV V1 VTI: 23.3 cm AV (velocity ratio): 0.77 CHRISTOPHE(I,D): 2.3 cm2 CHRISTOPHE(V,D): 2.2 cm2 PA V2 max: 77.3 cm/sec TR max mayda: 244.2 cm/sec TR max P.9 mmHg ECHO/Echo Complete Interpretation Summary Normal LV size. The left ventricular ejection fraction is 45 %. Stage 1 diastolic dysfunction. Mild (1+) tricuspid valve insufficiency. There are regional wall motion abnormalities as specified. Ordering Physician: Hui Morel Referring Physician: Praveen Crum MD Performed By: Annette Osullivan RDCS 06/14/25 1621 Date Edil Hong MD CC: Dr. Hui Morel MD; Dr. Praveen Crum MD; Dr. Aftab Lucero DO Date Dictated: 06/14/2545 Date Transcribed: 06/14/25 162 Oncology Radiation Physician: Signed Normal [facility] Emergency Department Summary on 06-13-2025 Emergency Department Summary [facility] Medical Records Department [address] [place] [address] Emergency Department Summary 06/13/25 MR#: [id number] Acct: [id number] Name: RICHIE ARMAS Rep #: [id number] : 1950 75 From: Efren Moss MD PCP: Dr. Praveen Crum MD Status:ADM IN Location: ICU ICU03-1 HPI History of Present Illness Chief Complaint: Chest Other Detail of Chief Complaint: Exertional chest pain that started 2 weeks ago Informant: patient Onset/Context/Timing Onset: Today, Yesterday and Weeks Activity at onset: sudden and activity on onset (Walking up an incline. Yesterday she did not walk up an incline nor did she walk up an incline today) Timing: Intermittent Quality: Positive for Pressure Location: Substernal Current Severity: Mild Maximum Severity: Moderate Worsened By: Exertion; Not Worsened By Movement of Arm, Movement of Torso, Eating, Palpation, Breathing or Coughing Relieved By: Rest Associated Symptoms: Positive for Dyspnea; Negative for Nausea, Vomiting, Diaphoresis, Cough, Fever, Lightheadedness, Acid Reflux or Palpitations Narrative Narrative: Patient is a 75-year-old woman. She has history of hypercholesterolemia and hypothyroidism. She also has a history of GERD. Approximately 2 weeks ago while walking up an incline she developed chest pressure. The chest pressure resolved with rest. Yesterday was the first time she got the chest pressure when she was walking on a level plane. She normally walks 3 miles in 1 hour. The episode that occurred yesterday was after half mile. She had a similar episode today. She denied diaphoresis. She states she was sweating because it is hot. She still has some mild discomfort in her chest. She does have a history of GERD. This is different than her GERD. She denies radiation to her jaw or shoulders. It does radiate to her neck anteriorly. She denies black or maroon-colored stool. This episode of pressure started at approximately 1545. Prior Similar Symptoms: No Recent Illness/Hospitalization : No CVD Risk Factors: Positive for Hypercholesterolemia; Negative for Hypertension, Diabetes, Family History 1' PE Risk Factors: Negative for Recent Travel/Surgery, Recent Immobilization, Prior DVT or PE, Cancer or OCP + Smoking + >/=35 TAD Risk Factors: Positive for Hypertension; Negative for Marfan's Syndrome or Family History [facility] Medical History (Updated 06/13/25 @ 19:[address] Hui Mroel MD) Chronic idiopathic constipation CKD (chronic kidney disease), stage II GERD (gastroesophageal reflux disease) IBS (irritable bowel syndrome) HTN (hypertension) Raynaud disease Fibromyalgia Cataract High cholesterol Hypothyroidism Home Medications ???Medication ???Instructions ???Recorded ???Last Taken ???Type amitriptyline 50 mg tablet 50 mg PO DAILY 11/12/15 06/12/25 H istory alendronate 70 mg tablet 70 mg PO .weekly 01/25/25 06/12/25 History levothyroxine 75 mcg tablet 75 mcg PO DAILY 01/25/25 06/13/25 History nifedipine 30 mg tablet,extended 30 mg PO DAILY 01/25/25 06/13/25 H istory release pantoprazole 20 mg tablet,delayed 20 mg PO QDAY 01/25/25 06/13/25 H istory release tizanidine 4 mg tablet 4 mg PO QHS 01/25/25 06/12/25 Hist ory tramadol 50 mg tablet 50 mg PO PRN 01/25/25 Unknown Hist ory lubiprostone 24 mcg capsule 24 mcg PO BID 06/13/25 06/13/25 Hi story venlafaxine 37.5 mg 37.5 mg PO DAILY depression Unknown History capsule,extended release 24 hr Allergy/AdvReac Type Severity Reaction Status Date / Time cyclobenzaprine HCl (From AdvReac Other Verified 06/13/25 17:31 Flexeril) promethazine (From Phenergan) AdvReac Other Verified 06/13/25 17:31 [id number] Reductase AdvReac Pain in Verified 06/13/25 17:31 Inhibitor joints Family History (Updated 06/13/25 @ 19:[address] Hui oMrel MD) Father Heart disease CAD (coronary artery [...] use type: does not use ROS ROS ED Constitutional Constitutional ED: Denies chills, fever(s), subjective or sweats Eyes Eyes: Reports none; Denies blurry vision or change in vision Cardiovascular Cardiovascular: Reports as per HPI; Denies orthopnea, palpitations, paroxysmal nocturnal dyspnea or racing heartbeat Respiratory/Chest Respiratory/Chest: Reports dyspnea; Denies dyspnea on exertion, orthopnea or paroxysmal nocturnal (more content not included)... Normal [facility] Eosinophil percentageOrdered By: Efrenconrado Moss on 06-13-2025 Eosinophils/100 WBC (Bld) 0.5 % 0-5 [facility] Erythrocyte distribution wid th ratioOrdered By: [facility] on 06-13-[facility] Erythrocyte distribution width (RBC) [Ratio] 13.5 % 11.6-14.6 [facility] Erythrocyte distribution wid th standard deviationOrdered By: Efren Moss on 06-13-2025 Erythrocyte distribution width (RBC) [Ratio] 48.6 fl High 35.1-43.9 [facility] Glomerular filtration rate ( GFR) estimation/1.73 sq m using serum, plasma, or whole bOrdered By: [facility] on 06-13-2025 GFR/1.73 sq M.predicted among non-blacks MDRD (S/P/Bld) [Vol rate/Area] 89 mL/min/{1.73_m2} >60 [facility] Comment on above: mL/min/1.73m2 CKD-EP I Creatinine Equation (2020) H AND P Exam - [facility] 06-13-2025 H&P Exam - Hospitalist [facility] Medical Records Department [address] [place] [address] H P Exam - Hospitalist 06/13/251914 MR#: [id number] Acct: [id number] Name: RICHIE ARMAS Rep #: [id number] : 1950 75 From: Hui Morel MD PCP: Dr. Praveen Crum MD Status:ADM IN Location: ICU ICU03-1 HPI - General General Date of Admission: 06/13/25 Date of Service: 06/13/25 Chief Complaint: Chest pain HPI Narrative The patient is a 75 y/o F w/ PMHx: Raynaud disease, HTN, HLD, Hypothyroidism, Fibromyalgia, Chronic idiopathic constipation who presents to the [facility] ED on 06/13/25 with exertional chest pain starting 2 weeks prior primarily with activity prior however on day prior to presentation she had similar symptoms at rest also, noted to be intermittent, pressure like in sensation in the primarily the anterior neck eventually transitioning into the chest [...] noted prior. ED physician discussed case with Locomotive Switch Operator. In the ED patient ministered full-strength aspirin therapy, heparin bolus and drip in addition to sublingual nitroglycerin eventually transition to a nitroglycerin drip as well as morphine 4 mg IV x 1. [facility] Medical History (Updated 06/13/25 @ 19:[address] Hui Morel MD) Chronic idiopathic constipation CKD (chronic kidney disease), stage II GERD (gastroesophageal reflux disease) IBS (irritable bowel syndrome) HTN (hypertension) Raynaud disease Fibromyalgia Cataract High cholesterol Hypothyroidism Home Medications ???Medication ???Instructions ???Recorded ???Last Taken ???Type amitriptyline 50 mg tablet 50 mg PO DAILY 11/12/15 Unknown Hi story atorvastatin 40 mg tablet 40 mg PO QHS 11/12/15 Unknown Hist ory alendronate 70 mg tablet mg PO 01/25/25 Unknown History levothyroxine 75 mcg tablet mcg PO 01/25/25 Unknown History nifedipine 30 mg tablet,extended mg PO DAILY 01/25/25 Unknown Histo ry release pantoprazole 20 mg tablet,delayed 20 mg PO QDAY 01/25/25 Unknown Hi story release tizanidine 4 mg tablet mg PO 3XD 01/25/25 Unknown History tramadol 50 mg tablet mg PO 01/25/25 Unknown History venlafaxine 37.5 mg mg PO DAILY 01/25/25 Unknown Histo ry capsule,extended release 24 hr Allergy/AdvReac Type Severity Reaction Status Date / Time cyclobenzaprine HCl (From AdvReac Other Verified 06/13/25 17:31 Flexeril) promethazine (From Phenergan) AdvReac Other Verified 06/13/25 17:31 [id number] Reductase AdvReac Pain in Verified 06/13/25 17:31 [...] focal weakness, change in bowel or bladder control, seizure. MUSCULOSKELETAL: + muscle, back pain, joint pain or stiffness. HEMATOLOGIC: No anemia, bleeding or bruising. LYMPHATICS: No enlarged nodes. No history of splenectomy. PSYCHIATRIC: + History o (more content not included)... Normal [facility] Hematocrit Auto (Bld) [Volum e fraction]Ordered By: Efren Moss on 06-13-2025 Hematocrit (Bld) [Volume fraction] 39.1 % 37-47 [facility] Hemoglobin measurementOrdere d By: Efren Moss on 06-13-2025 Hemoglobin (Bld) [Mass/Vol] 12.7 g/dL 12.0-15.0 [facility] Immature granulocytes/100 WB C Auto (Bld)Ordered By: Efren Rodriguezo on 06-13-2025 Immature granulocytes/100 WBC (Bld) 0.200 % 0.0-0.9 [facility] Comment on above: IG% - Immature Granu locytes (promyelocytes, myelocytes and metamyelocytes) > 1% indicates that a LEFT SHIFT is Present. International normalized rat io (INR) calculationOrdered By: Efrenconrado Rodriguezo on 06-13-2025 INR Coag (Bld) [Relative time] 1.2 {INR} [facility] L501.4021on 06-13-2025 Trop T High Sen 93 ng/L Invalid Interpretation Code <=14 [facility] Comment on above: Result Comment: Crit ical Result(s) Called at: 1847 TO Edward JORDAN by:??Barbara NIXON. Results read back by same. Performed By: #### L 100.0100 #### [facility] [address] [place], [address] MCV (mean corpuscular volume ) determinationOrdered By: Efrenconrado Moss on 06-13-2025 MCV (RBC) [Entitic vol] 96.5 fL 81-99 [facility] Magnesiumon 06-13-2025 Magnesium [Mass/Vol] 2.0 mg/dL Normal 1.5-2.2 [facility] Comment on above: Order Comment: Comme nts: may add to ED labs Performed By: #### L 501.5200 #### [facility] [address] [place], [address] Magnesium measurement (mass/ volume)Ordered By: Hui Morel on 06-13-2025 Magnesium (Unsp spec) [Mass/Vol] 2.0 mg/dL 1.5-2.2 [facility] Mean corpuscular hemoglobin (MCH) determinationOrdered By: Efrenconrado Moss on 06-13-2025 MCH (RBC) [Entitic mass] 31.4 pg 27.0-32.0 [facility] Mean corpuscular hemoglobin concentration (MCHC) determinationOrdered By: Efrenconrado Moss on 06-13-2025 MCHC (RBC) [Mass/Vol] 32.5 g/dL 32-36 [facility] Mean platelet volume determi nationOrdered By: Efren Moss on 06-13-2025 Platelet mean volume (Bld) [Entitic vol] 10.4 fL 6.2-12.0 [facility] Monocyte percentageOrdered B y: Efrenconrado Moss on 06-13-2025 Monocytes/100 WBC (Bld) 9.0 % 0-10 [facility] Neutrophil percentageOrdered By: [facility] Moss on 06-13-2025 Neutrophils/100 WBC (Bld) 55.8 % 47-70 [facility] Nucleated red blood cell per centageOrdered By: Efrenconrado Moss on 06-13-2025 Nucleated RBC/100 WBC (Bld) [Ratio] 0 % 0-5 [facility] Partial Thromboplast Timeon 06-13-2025 aPTT Coag (Bld) [Time] 27.1 s Normal 24.1-36.2 [facility] Comment on above: Order Comment: Comme nts: If not done in prior 24 hours Performed By: #### L 7000.0700 #### [facility] [address] [place], [address] Platelet countOrdered By: conrado Rodriguezo on 06-13-2025 Platelets (Bld) [#/Vol] 241 10*3/uL 150-450 [facility] Potassium measurement (mass/ volume)Ordered By: Efrenconrado Moss on 06-13-2025 Potassium (Unsp spec) [Mass/Vol] 4.4 mmol/L 3.3-5.1 [facility] Prothrombin Time w/INRon INR Coag (PPP) [Relative time] 1.2 {INR} Normal [facility] Comment on above: Order Comment: Comme nts: If not done in prior 24 hours Performed By: #### L 7000.0700 #### [facility] [address] [place], [address] Prothrombin timeOrdered By: Efrenconrado Moss on 06-13-2025 PT Coag (PPP) [Time] 15.2 s High 11.7-14.9 [facility] Comment on above: Order Comment: Comme nts: If not done in prior 24 hours Performed By: #### L 7000.0700 #### [facility] [address] [place], [address] RBC Auto (Bld) [#/Vol]Ordere d By: Efrenconrado Moss on 06-13-2025 RBC (Bld) [#/Vol] 4.05 10*6/uL Low 4.2-5.4 [facility] Serum creatinine measurement (mass/volume)Ordered By: Efren [facility] on 06-13-2025 Creatinine [Mass/Vol] 0.71 mg/dL 0.70-1.20 [facility] Serum glucose measurement (m ass/volume)Ordered By: Efren Moss on 06-13-2025 Glucose [Mass/Vol] 112 mg/dL High 70-99 [facility] Serum or plasma calcium jill urement (mass/volume)Ordered By: [facility] on 06-13-2025 Calcium [Mass/Vol] 9.4 mg/dL 7.6-11.0 [facility] Serum or plasma urea nitroge n measurement (mass/volume)Ordered By: [facility] on 06-13-2025 Urea nitrogen [Mass/Vol] 23 mg/dL High 4-19 [facility] Sodium levelOrdered By: Efren Moss on 06-13-2025 Sodium [Moles/Vol] 136 mmol/L 133-145 [facility] Troponin T.cardiac [Mass/vol ume] in Serum or Plasma by High sensitivity methodOrdered By: Efren Moss on 06-13-2025 Troponin T.cardiac High sensitivity method [Mass/Vol] 88 ng/L High <14 [facility] Comment on above: Hemolysis present, R esults could be affected. Critical Result(s) Called at: by: Results read back by same.CRITICAL VALUE CALLED TO GDSMEVANT43/25/25 0005 Maxim Gurrola.RESULTS READ BACK BY SAME. Previous reported result: 88 ng/LEdited by: MIRNA on 06/14/25:0005 AMENDED REPORT 06/14/25 0005 Trop T HS 2HR previously reported as: 88 *H ng/L Hemolysis present, Results could be affected. Critical Result(s) Called at: by: Results read back by same. Troponin T.cardiac High sensitivity method [Mass/Vol] 93 ng/L High <14 [facility] Comment on above: Critical Result(s) C alled at: 1847 TO Edward JORDAN by: Barbara NIXON. Results read back by same. White blood cell (WBC) count Ordered By: Efren Moss on 06-13-2025 WBC (Bld) [#/Vol] 5.7 10*3/uL 4.4-11.0 [facility] Calprotectin, Stoolon [address] 146 ug/g Abnormal 0-120 [facility] Comment on above: Result Comment: Conc entration Interpretation Follow-Up < 5 - 50 ug/g Normal None >50 -120 ug/g Borderline Re-evaluate in 4-6 weeks >120 ug/g Abnormal Repeat as clinically indicated Performed at: - [address] [id number] Interactive Marketing Strategist: Franklin Pena MD, Phone: [phone] Performed By: #### L 4688.6334 #### [facility] [address] [facility] [place], [place], [id number] [employer] Decub and/or Erecton 03-15-2025 [employer] Decub and/or Erect [facility] Imaging Services [address] [place], [place] [address] [employer] Decub and/or Erect MR#: [id number] Acct: [id number] Name: RICHIE ARMAS Rep #: [id number] : 1950 F 74 From: Aftab Al MD PCP: Dr. Praveen Crum MD Status: REG CLI Study: [employer] Decub and/or Erect Date of Exam: 03/15 Exam# [id number] Ordering Dr: NAYE MARIE EXAM: XR Abdomen, 1 View CLINICAL [...] the colon consistent with constipation. Reading Location: [id number] CC: NAYE MARIE; Dr. Praveen Crum MD Oncology Radiation Physician: Signed Normal [facility] Calprotectin stoolon 025 Calprotectin stool 146 ug/g High 0-120 [facility] Comment on above: Concentration Interp retation Follow-Up< 5 - 50 ug/g Normal None>50 -120 ug/g Borderline Re-evaluate in 4-6 weeks >120 ug/g Abnormal Repeat as clinically indicatedPerformed at: - Labco[address] [id number] Director: Franklin Pena MD, Phone: [phone] Stool Calprotectin 146 ug/g High 0-120 [facility] Comment on above: Concentration Interp retation Follow-Up< 5 - 50 ug/g Normal None>50 -120 ug/g Borderline Re-evaluate in 4-6 weeks >120 ug/g Abnormal Repeat as clinically indicatedPerformed at: BN - [facility] [address] [id number] Director: Franklin Pena MD, Phone: [phone] Cerv Spine 4 or 5 Viewson Cerv Spine 4 or 5 Views [facility] Imaging Services [address] [place] [address] Cerv Spine 4 or 5 Views MR#: [id number] Acct: [id number] Name: RICHIE ARMAS Rep #: [id number] : 1950 F 74 From: Lennox og MD PCP: Dr. Praveen Crum MD Status: DEP AMB Study: Cerv Spine 4 or 5 Views Date of Exam: 01/25/25 Exam# [id number] Ordering Dr: Sagrario Baltazar PROCEDURE: CERV SPINE 4 OR 5 VIEWS [...] reduced on the extension views. Reading Location: [id number] CC: BRAYDEN Wray; Dr. Praveen Crum MD Oncology Radiation Physician: Signed [facility] Orthopedic Visit Reporton Orthopedic Visit Report [facility] [address] [place] [address] OFFICE VISIT Date of Service: 01/25/25 MR#: [id number] Acct: [id number] Name: RICHIE ARMAS Rep #: [id number] : 1950 Provider: BRAYDEN Wray Age/Sex: 74/F [place] [facility] [place]: Signed Intake Vital Signs 12/20/23 14:08 [...] Phenergan) Adverse Reaction (Verified 01/25/25 13:09) Other Uzyllgn-PRT-ClJ Reductase Inhibitor Adverse Reaction (Verified 01/25/25 13:09) [...] you fallen in the past year?: [facility] History Raynaud disease Fibromyalgia Cataract Oral thrush Suprapubic abdominal pain High cholesterol Hypothyroidism Surgical History Previous back surgery H/O wrist surgery History of ankle surgery H/O shoulder surgery Social History Smoking Status: Unknown if ever smoked HPI CERVICAL SPINE Details: This documentation accurately reflects the service provided and the decisions made by me, BRAYDEN Wray 01/25/25 1304. Part of today???s visit was documented by Annette Campos RN, acting as scribe. RICHIE ARMAS is a 74 year old F here [...] which was (more content not included)... [facility] Bone density reportOrdered B y: Lennox Stapletonlenka on 11-02-2024 Study report Skeletal system DXA [facility] Imaging Services [address] [place], [place] [address] Dexa Bone Density Study MR#: [id number] Acct: [id number] Name: RICHIE ARMAS Rep #: [id number] : 1950 F 74 From: Clinton Ellington MD PCP: Dr. Praveen Crum MD Status: [facility] Study:Dexa Bone Density Study Date of Exam: 10/30/24 Exam# [id number] Ordering Dr: Yandel Waterman TELEPHONE STATION INSTALLER-C [id number] STUDY: DUAL ENERGY X-RAY ABSORPTIOMETRY / DXA [...] , CC: Dr. Praveen Crum MD; Annette Waterman ~ Oncology Radiation Physician: Signed [facility] Breast imaging reportOrdered By: Lennox Ellington on 10-30-2024 Study report [facility] Imaging Services [address] [place] [address] SCRN MAMM (CAD)W/JESSICA BILAT MR#: [id number] Acct: [id number] Name: RICHIE ARMAS Rep #: [id number] : 1950 F 74 From: Clinton Ellington MD PCP: Dr. Praveen Crum MD Status: [facility] Study:SCRN MAMM (CAD)W/JESSICA BILAT Date of Exa m: 10/30/24 Exam# [id number] Ordering Dr: Yandel Waterman [id number] MAMMOGRAPHY - BILATERAL SCREENING REASON FOR EXAM: [...] delay biopsy of a clinically suspicious abnormality. [id number] Electronically Signed: Lennox Ellington MD at 13:40 EST , CC: Dr. Praveen Crum MD; Annette STRAIGHT TRUCK DRIVER TELEPHONE STATION INSTALLER-C Waterman ~ Oncology Radiation Physician: Signed [facility] Dexa Bone Density Studyon Dexa Bone Density Study [facility] Imaging Services [address] [place], [place] [address] Dexa Bone Density Study MR#: [id number] Acct: [id number] Name: RICHIE ARMAS Rep #: [id number] : 1950 F 74 From: Lennox og MD PCP: Dr. Praveen Crum MD Status: REG CLI Study: Dexa Bone Density Study Date of Exam: 10/30/24 Exam# [id number] Ordering Dr: Annette Waterman TELEPHONE STATION INSTALLER -C [id number] STUDY: DUAL ENERGY X-RAY ABSORPTIOMETRY / DXA [...] , CC: Dr. Praveen Crum MD; Annette Waterman Oncology Radiation Physician: Signed [facility] SCRN MAMM (CAD)W/JESSICA Reynolds n 10-30-2024 SCRN MAMM (CAD)W/JESSICA BROWN [facility] Imaging Services [address] [place] [address] SCRN MAMM (CAD)W/JESSICA BROWN MR#: [id number] Acct: [id number] Name: RICHIE ARMAS Rep #: [id number] : 1950 F 74 From: Lennox og MD PCP: Dr. Praveen Crum MD Status: [facility] Study: SCRN MAMM (CAD)W/JESSICA BILAT Date of Exam: 10/21 Exam# [id number] Ordering Dr: Annette Waterman TELEPHONE STATION INSTALLER -C [id number] MAMMOGRAPHY - BILATERAL SCREENING REASON FOR EXAM: [...] delay biopsy of a clinically suspicious abnormality. [id number] Electronically Signed: Lennox Ellington MD at 13:40 EST , CC: Dr. Praveen Crum MD; Annette Waterman Oncology Radiation Physician: Signed [facility] No Panel InformationOrdered By: Praveen Crum on 03-05-2024 Free Triiodothyronine (T3) pg/dL 2.0 pg/mL 2.18-3.98 [facility] Serum or plasma thyroid stim ulating hormone (TSH) measurement (units/volume)Ordered By: Praveen Crum on 03-05-2024 TSH Qn 1.85 uIU/mL 0.358-3.74 [facility] Thin prep Papanicolaou smear with manual screeningOrdered By: Praveen Crum on 03-05-2024 Thin prep Papanicolaou smear with manual screening 0.76 ng/dL 0.76-1.46 [facility] Absolute lymphocyte countOrd ered By: Dio Martins on 12-20-2023 Lymphocytes Auto (Unsp spec) [#/Vol] 1.54 10*3/uL 0.83-4.51 [facility] Automated lymphocyte count a s percentage of total leukocytesOrdered By: Dio Martins on 12-20-2023 Lymphocytes/100 WBC Auto (Unsp spec) 26.2 % 19-41 [facility] Basophil percentageOrdered B y: Dio Martins on 12-20-2023 Basophils/100 WBC (Bld) 0.7 % 0-1 [facility] Bilirubin [Mass/Vol] 0.30 mg/dL 0.20-1.00 [facility] Comment on above: For patients on eltr ombopag therapy, use of Dimension [place] TBIL is not recommended. Chloride [Moles/Vol] 106 mmol/L 98-107 [facility] Eosinophils/100 WBC (Bld) 1.4 % 0-5 [facility] Glucose [Mass/Vol] 119 mg/dL 74-106 [facility] Comment on above: Fasting Glucose resu lt from 100 to 125 mg/dL suggests IMPAIRED HOMEOSTASIS per A.D.A. criteria. Hemoglobin (Bld) [Mass/Vol] 14.4 g/dL 12.0-15.0 [facility] Monocytes/100 WBC (Bld) 7.5 % 0-10 [facility] Neutrophils (Bld) [#/Vol] 3.8 10*3/uL 2.0-7.7 [facility] Neutrophils/100 WBC (Bld) 63.9 % 47-70 [facility] Potassium [Moles/Vol] 4.3 mmol/L 3.5-5.1 [facility] Comment on above: Moderate Hemolysis, Result may be falsely increased. Protein [Mass/Vol] 7.8 g/dL 6.4-8.2 [facility] Sodium [Moles/Vol] 138 mmol/L 136-145 [facility] WBC (Bld) [#/Vol] 5.9 10*3/uL 4.4-11.0 [facility] Determination of erythrocyte mean corpuscular volume (MCV)Ordered By: Dio Martins on 12-20-2023 MCV (RBC) [Entitic vol] 98.1 fL 81-99 [facility] Erythrocyte distribution wid th ratioOrdered By: Dio Martins on 12-20-2023 Erythrocyte distribution width (RBC) [Ratio] 13.5 % 11.6-14.6 [facility] Erythrocyte distribution wid th standard deviationOrdered By: Dio Martins on 12-20-2023 Erythrocyte distribution width (RBC) [Entitic vol] 50.1 fL 35.1-43.9 [facility] Hematocrit Auto (Bld) [Volum e fraction]Ordered By: Dio Martins on 12-20-2023 Hematocrit (Bld) [Volume fraction] 46.7 % 37-47 [facility] Immature granulocytes/100 WB C Auto (Bld)Ordered By: Dio Martins on 12-20-2023 Immature granulocytes/100 WBC (Bld) 0.300 % 0.0-0.9 [facility] Comment on above: IG% - Immature Granu locytes (promyelocytes, myelocytes and metamyelocytes) > 1% indicates that a LEFT SHIFT is Present. Laboratory - Chemistry and C hemistry - challengeOrdered By: Dio Martins on 12-20-2023 Albumin/Globulin [Mass ratio] 1.1 {ratio} 0.9-2.4 [facility] ALP [Catalytic activity/Vol] 55 U/L 45-117 [facility] ALT [Catalytic activity/Vol] 13 U/L 13-56 [facility] CO2 [Moles/Vol] 26.0 mmol/L 21.0-32.0 [facility] Globulin (S) [Mass/Vol] 3.7 g/dL 2.2-4.2 [facility] Urea nitrogen/Creatinine [Mass ratio] 28.0 mg/mg 10-20 [facility] Laboratory - Hematology and Cell countsOrdered By: Dio Martins on 12-20-2023 MCH (RBC) [Entitic mass] 30.3 pg 27.0-32.0 [facility] MCHC (RBC) [Mass/Vol] 30.8 g/dL 32-36 [facility] Nucleated RBC/100 WBC (Bld) [Ratio] 0 % 0-5 [facility] Platelets (Bld) [#/Vol] 186 10*3/uL 150-450 [facility] No Panel InformationOrdered By: Dio Martins on 12-20-2023 Troponin I High Sensitivity 7 pg/mL 3.0-54.0 [facility] Comment on above: Please Note: New Crystal t Units and Gender Specific Reference Ranges. For more information see Policy Stat Procedure [place] High Sensitivity Troponin (TNIH) and attachments. Estimated Creatinine Clearance Calc 62.14 ml/min [facility] Estimated GFR (MDRD) Amer 92 mL/min >60 [facility] Comment on above: GFR Calc Estimated GFR (MDRD) Non-Af Amer 76 mL/min >60 [facility] Comment on above: Non- GFR Calc Platelet mean volume Elver-Ec ker (Bld) [Entitic vol]Ordered By: Dio Martins on 12-20-2023 Platelet mean volume (Bld) [Entitic vol] 11.4 fL 6.2-12.0 [facility] RBC Auto (Bld) [#/Vol]Ordere d By: Dio Martins on 12-20-2023 RBC (Bld) [#/Vol] 4.76 10*6/uL 4.2-5.4 [facility] Serum or plasma calcium jill urement (mass/volume)Ordered By: Dio Martins on 12-20-2023 Calcium [Mass/Vol] 10.0 mg/dL 8.5-10.1 [facility] Serum or plasma creatinine m easurement (mass/volume)Ordered By: Dio Martins on 12-20-2023 Creatinine [Mass/Vol] 0.79 mg/dL 0.55-1.02 [facility] Comment on above: The validity of the calculated GFR & GFRAA in patients over 70 years has not been determined. Clinical correlation is essential. Serum or plasma urea nitroge n measurement (mass/volume)Ordered By: Dio Martins on 12-20-2023 Urea nitrogen [Mass/Vol] 22 mg/dL 7-18 [facility] Thin prep Papanicolaou smear with manual screeningOrdered By: Dio Martins on 12-20-2023 Thin prep Papanicolaou smear with manual screening 4.1 g/dL 3.2-5.0 [facility] Thin prep Papanicolaou smear with manual screening 27 U/L 15-37 [facility] Comment on above: Moderate Hemolysis, Result may be falsely increased. Thin prep Papanicolaou smear with manual screening 6 5-15 [facility] Absolute lymphocyte countOrd ered By: Dr. Crum on 02-08-2023 Lymphocytes Auto (Unsp spec) [#/Vol] 2.70 10*3/uL 0.83-4.51 [facility] Basophil percentageOrdered B y: Dr. Crum on 02-08-2023 Basophils/100 WBC (Bld) 0.7 % 0-1 [facility] Bilirubin [Mass/Vol] 0.30 mg/dL 0.20-1.00 [facility] Comment on above: For patients on eltr ombopag therapy, use of Dimension [place] TBIL is not recommended. Chloride [Moles/Vol] 102 mmol/L 98-107 [facility] Eosinophils/100 WBC (Bld) 2.2 % 0-5 [facility] Glucose [Mass/Vol] 81 mg/dL 74-106 [facility] Neutrophils (Bld) [#/Vol] 2.7 10*3/uL 2.0-7.7 [facility] Neutrophils/100 WBC (Bld) 44.5 % 47-70 [facility] Potassium [Moles/Vol] 4.3 mmol/L 3.5-5.1 [facility] Protein [Mass/Vol] 7.2 g/dL 6.4-8.2 [facility] Sodium [Moles/Vol] 139 mmol/L 136-145 [facility] WBC (Bld) [#/Vol] 6.0 10*3/uL 4.4-11.0 [facility] Blood erythrocytes count (nu mber/volume)Ordered By: Dr. Crum on 02-08-2023 RBC (Bld) [#/Vol] 4.35 10*6/uL 4.2-5.4 [facility] Blood hemoglobin measurement (mass/volume)Ordered By: Dr. Crum on 02-08-2023 Hemoglobin (Bld) [Mass/Vol] 13.5 g/dL 12.0-15.0 [facility] Blood lymphocytes/100 leukoc ytesOrdered By: Dr. Crum on 02-08-2023 Lymphocytes/100 WBC (Bld) 44.8 % 19-41 [facility] Blood monocytes/100 leukocyt esOrdered By: Dr. Crum on 02-08-2023 Monocytes/100 WBC (Bld) 7.6 % 0-10 [facility] Blood platelet mean volumeOr dered By: Dr. Crum on 02-08-2023 Platelet mean volume (Bld) [Entitic vol] 10.9 fL 6.2-12.0 [facility] Determination of erythrocyte mean corpuscular volume (MCV)Ordered By: Dr. Crum on 02-08-2023 MCV (RBC) [Entitic vol] 99.8 fL 81-99 [facility] Hematocrit Auto (Bld) [Volum e fraction]Ordered By: Dr. Crum on 02-08-2023 Hematocrit (Bld) [Volume fraction] 43.4 % 37-47 [facility] Laboratory - Chemistry and C hemistry - challengeOrdered By: Dr. Crum on 02-08-2023 ALP [Catalytic activity/Vol] 51 U/L 45-117 [facility] ALT [Catalytic activity/Vol] 14 U/L 13-56 [facility] CO2 [Moles/Vol] 28.0 mmol/L 21.0-32.0 [facility] Cobalamin (Vitamin B12) [Mass/Vol] 506 pg/mL 211-911 [facility] Free T4 [Mass/Vol] 0.71 ng/dL 0.76-1.46 [facility] Globulin (S) [Mass/Vol] 3.5 g/dL 2.2-4.2 [facility] Urea nitrogen/Creatinine [Mass ratio] 31.6 mg/mg 10-20 [facility] Laboratory - Hematology and Cell countsOrdered By: Dr. Crum on 02-08-2023 Erythrocyte distribution width (RBC) [Entitic vol] 49.5 fL 35.1-43.9 [facility] Erythrocyte distribution width (RBC) [Ratio] 13.4 % 11.6-14.6 [facility] Immature granulocytes/100 WBC (Bld) 0.200 % 0.0-0.9 [facility] Comment on above: IG% - Immature Granu locytes (promyelocytes, myelocytes and metamyelocytes) > 1% indicates that a LEFT SHIFT is Present. MCH (RBC) [Entitic mass] 31.0 pg 27.0-32.0 [facility] Nucleated RBC/100 WBC (Bld) [Ratio] 0 % 0-5 [facility] MCHC Auto (RBC) [Mass/Vol]Or dered By: Dr. Crum on 02-08-2023 MCHC (RBC) [Mass/Vol] 31.1 g/dL 32-36 [facility] No Panel InformationOrdered By: Dr. Crum on 02-08-2023 Estimated GFR (MDRD) Amer 101 mL/min >60 [facility] Comment on above: GFR Calc Estimated GFR (MDRD) Non-Af Amer 84 mL/min >60 [facility] Comment on above: Non- GFR Calc Free Triiodothyronine (T3) pg/dL 1.9 pg/mL 2.18-3.98 [facility] Thyroid Stimulating Hormone (TSH) 3.71 uIU/mL 0.358-3.74 [facility] Vitamin D 25-Hydroxy 30.5 ng/mL [facility] Comment on above: Vitamin D 25(OH) Sta tus Range Deficiency <20 ng/mL (50nmol/L) Insufficiency 20 - 30 ng/mL (50 - 75 nmol/L) Sufficiency 30 - 100 ng/mL (75 - 250 nmol/L) Toxicity >100 ng/mL (>250 nmol/L) Platelets bldOrdered By: Dr. Crum on 02-08-2023 Platelets (Bld) [#/Vol] 254 10*3/uL 150-450 [facility] Serum or plasma albumin jill urement (mass/volume)Ordered By: Dr. Crum on 02-08-2023 Albumin [Mass/Vol] 3.7 g/dL 3.2-5.0 [facility] Serum or plasma albumin/glob ulin mass ratioOrdered By: Dr. Crum on 02-08-2023 Albumin/Globulin [Mass ratio] 1.1 {ratio} 0.9-2.4 [facility] Serum or plasma calcium jill urement (mass/volume)Ordered By: Dr. Crum on 02-08-2023 Calcium [Mass/Vol] 8.9 mg/dL 8.5-10.1 [facility] Serum or plasma creatinine m easurement (mass/volume)Ordered By: Dr. Crum on 02-08-2023 Creatinine [Mass/Vol] 0.73 mg/dL 0.55-1.02 [facility] Comment on above: The validity of the calculated GFR & GFRAA in patients over 70 years has not been determined. Clinical correlation is essential. Serum or plasma folate measu rement (mass/volume)Ordered By: Dr. Crum on 02-08-2023 Folate [Mass/Vol] 4.70 ng/mL 3.1-55.4 [facility] Serum or plasma urea nitroge n measurement (mass/volume)Ordered By: Dr. Crum on 02-08-2023 Urea nitrogen [Mass/Vol] 23 mg/dL 7-18 [facility] Thin prep Papanicolaou smear with manual screeningOrdered By: Dr. Crum on 02-08-2023 Thin prep Papanicolaou smear with manual screening 28 U/L 15-37 [facility] Thin prep Papanicolaou smear with manual screening 9 5-15 [facility] Absolute lymphocyte counton 09-05-2022 Lymphocytes Auto (Unsp spec) [#/Vol] 2.39 10*3/uL 0.83-4.51 [facility] Work Phone: Basophil percentageon 2021 Basophils/100 WBC (Bld) 0.7 % 0-1 [facility] Work Phone: Chloride [Moles/Vol] 102 mmol/L 98-107 [facility] Work Phone: Eosinophils/100 WBC (Bld) 1.0 % 0-5 [facility] Work Phone: Glucose [Mass/Vol] 97 mg/dL 74-106 [facility] Work Phone: Neutrophils (Bld) [#/Vol] 2.9 10*3/uL 2.0-7.7 [facility] Work Phone: Neutrophils/100 WBC (Bld) 48.9 % 47-70 [facility] Work Phone: Potassium [Moles/Vol] 4.1 mmol/L 3.5-5.1 [facility] Work Phone: Comment on above: Slight Hemolysis, Re sult may be falsely increased. Sodium [Moles/Vol] 137 mmol/L 136-145 [facility] Work Phone: WBC (Bld) [#/Vol] 6.0 10*3/uL 4.4-11.0 [facility] Work Phone: Blood erythrocytes count (nu mber/volume)on 09-05-2022 RBC (Bld) [#/Vol] 4.53 10*6/uL 4.2-5.4 [facility] Work Phone: Blood hemoglobin measurement (mass/volume)on 09-05-2022 Hemoglobin (Bld) [Mass/Vol] 14.1 g/dL 12.0-15.0 [facility] Work Phone: Blood lymphocytes/100 leukoc yteson 09-05-2022 Lymphocytes/100 WBC (Bld) 40.2 % 19-41 [facility] Work Phone: Blood monocytes/100 leukocyt eson 09-05-2022 Monocytes/100 WBC (Bld) 8.9 % 0-10 [facility] Work Phone: [phone] Blood platelet mean volumeon 09-05-2022 Platelet mean volume (Bld) [Entitic vol] 10.5 fL 6.2-12.0 [facility] Work Phone: [phone] Determination of erythrocyte mean corpuscular volume (MCV)on 09-05-2022 MCV (RBC) [Entitic vol] 97.8 fL 81-99 [facility] Work Phone: [phone] Hematocrit Auto (Bld) [Volum e fraction]on 09-05-2022 Hematocrit (Bld) [Volume fraction] 44.3 % 37-47 [facility] Work Phone: [phone] Laboratory - Chemistry and C hemistry - challengeon 09-05-2022 CO2 [Moles/Vol] 30.0 mmol/L 21.0-32.0 [facility] Work Phone: [phone] Magnesium [Mass/Vol] 2.3 mg/dL 1.6-2.6 [facility] Work Phone: [phone] Comment on above: Slight Hemolysis, Re sult may be falsely increased. Urea nitrogen/Creatinine [Mass ratio] 30.0 mg/mg 10-20 [facility] Work Phone: [phone] Laboratory - Hematology and Cell countson 09-05-2022 Erythrocyte distribution width (RBC) [Entitic vol] 49.2 fL 35.1-43.9 [facility] Work Phone: [phone] Erythrocyte distribution width (RBC) [Ratio] 13.7 % 11.6-14.6 [facility] Work Phone: [phone] Immature granulocytes/100 WBC (Bld) 0.300 % 0.0-0.9 [facility] Work Phone: [phone] Comment on above: IG% - Immature Granu locytes (promyelocytes, myelocytes and metamyelocytes) > 1% indicates that a LEFT SHIFT is Present. MCH (RBC) [Entitic mass] 31.1 pg 27.0-32.0 [facility] Work Phone: Nucleated RBC/100 WBC (Bld) [Ratio] 0 % 0-5 [facility] Work Phone: [phone] MCHC Auto (RBC) [Mass/Vol]on 09-05-2022 MCHC (RBC) [Mass/Vol] 31.8 g/dL 32-36 [facility] Work Phone: No Panel Informationon 09-05 Estimated Creatinine Clearance Calc 42.68 ml/min [facility] Work Phone: Estimated GFR (MDRD) Amer 106 mL/min >60 [facility] Work Phone: [phone] Comment on above: GFR Calc Estimated GFR (MDRD) Non-Af Amer 88 mL/min >60 [facility] Work Phone: Comment on above: Non- GFR Calc Thyroid Stimulating Hormone (TSH) 5.03 uIU/mL 0.358-3.74 [facility] Work Phone: Troponin I High Sensitivity 6 pg/mL 3.0-54.0 [facility] Work Phone: [phone] Comment on above: Please Note: New Crystal t Units and Gender Specific Reference Ranges. For more information see Policy Stat Procedure [place] High Sensitivity Troponin (TNIH) and attachments. Platelets bldon 09-05-2022 Platelets (Bld) [#/Vol] 245 10*3/uL 150-450 [facility] Work Phone: [phone] Serum or plasma calcium jill urement (mass/volume)on 09-05-2022 Calcium [Mass/Vol] 9.3 mg/dL 8.5-10.1 [facility] Work Phone: [phone] Serum or plasma creatinine m easurement (mass/volume)on 09-05-2022 Creatinine [Mass/Vol] 0.70 mg/dL 0.55-1.02 [facility] Work Phone: [phone] Comment on above: The validity of the calculated GFR & GFRAA in patients over 70 years has not been determined. Clinical correlation is essential. Serum or plasma urea nitroge n measurement (mass/volume)on 09-05-2022 Urea nitrogen [Mass/Vol] 21 mg/dL 7-18 [facility] Work Phone: Thin prep Papanicolaou smear with manual screeningon 09-05-2022 Thin prep Papanicolaou smear with manual screening 5 5-15 [facility] Work Phone: Absolute lymphocyte counton 08-18-2022 Lymphocytes Auto (Unsp spec) [#/Vol] 1.78 10*3/uL 0.83-4.51 [facility] Work Phone: Basophil percentageon 2021 Basophils/100 WBC (Bld) 0.7 % 0-1 [facility] Work Phone: Bilirubin [Mass/Vol] 0.40 mg/dL 0.20-1.00 [facility] Work Phone: Comment on above: For patients on eltr ombopag therapy, use of Dimension [place] TBIL is not recommended. Chloride [Moles/Vol] 101 mmol/L 98-107 [facility] Work Phone: Cholesterol [Mass/Vol] 344 mg/dL <200 [facility] Work Phone: Comment on above: <200 mg/dL Desirable 200-240 mg/dL Borderline >240 mg/dL High Risk Eosinophils/100 WBC (Bld) 1.6 % 0-5 [facility] Work Phone: Glucose [Mass/Vol] 98 mg/dL 74-106 [facility] Work Phone: Neutrophils (Bld) [#/Vol] 2.0 10*3/uL 2.0-7.7 [facility] Work Phone: Neutrophils/100 WBC (Bld) 47.5 % 47-70 [facility] Work Phone: Potassium [Moles/Vol] 4.1 mmol/L 3.5-5.1 [facility] Work Phone: Protein [Mass/Vol] 7.3 g/dL 6.4-8.2 [facility] Work Phone: [phone] Sodium [Moles/Vol] 137 mmol/L 136-145 [facility] Work Phone: [phone] Triglyceride [Mass/Vol] 178 mg/dL <199 [facility] Work Phone: [phone] Comment on above: The drugs N-Acetylcy steine and Metamizole may falsely depress this assay.Serum Triglycerides Reference Interval Normal <150 mg/dL Borderline high 150 - 199 mg/dL High 200 - 499 mg/dL Very High > or = 500 mg/dL WBC (Bld) [#/Vol] 4.3 10*3/uL 4.4-11.0 [facility] Work Phone: [phone] Blood erythrocytes count (nu mber/volume)on 08-18-2022 RBC (Bld) [#/Vol] 4.34 10*6/uL 4.2-5.4 [facility] Work Phone: [phone] Blood hemoglobin measurement (mass/volume)on 08-18-2022 Hemoglobin (Bld) [Mass/Vol] 13.6 g/dL 12.0-15.0 [facility] Work Phone: Blood lymphocytes/100 leukoc yteson 08-18-2022 Lymphocytes/100 WBC (Bld) 41.4 % 19-41 [facility] Work Phone: [phone] Blood monocytes/100 leukocyt eson 08-18-2022 Monocytes/100 WBC (Bld) 8.8 % 0-10 [facility] Work Phone: [phone] Blood platelet mean volumeon 08-18-2022 Platelet mean volume (Bld) [Entitic vol] 10.8 fL 6.2-12.0 [facility] Work Phone: [phone] Determination of erythrocyte mean corpuscular volume (MCV)on 08-18-2022 MCV (RBC) [Entitic vol] 98.4 fL 81-99 [facility] Work Phone: [phone] Hematocrit Auto (Bld) [Volum e fraction]on 08-18-2022 Hematocrit (Bld) [Volume fraction] 42.7 % 37-47 [facility] Work Phone: [phone] Laboratory - Chemistry and C hemistry - challengeon 08-18-2022 ALP [Catalytic activity/Vol] 79 U/L 45-117 [facility] Work Phone: [phone] ALT [Catalytic activity/Vol] 12 U/L 13-56 [facility] Work Phone: [phone] CO2 [Moles/Vol] 31.0 mmol/L 21.0-32.0 [facility] Work Phone: [phone] Globulin (S) [Mass/Vol] 3.6 g/dL 2.2-4.2 [facility] Work Phone: [phone] Urea nitrogen/Creatinine [Mass ratio] 22.6 mg/mg 10-20 [facility] Work Phone: [phone] Laboratory - Hematology and Cell countson 08-18-2022 Erythrocyte distribution width (RBC) [Entitic vol] 48.5 fL 35.1-43.9 [facility] Work Phone: [phone] Erythrocyte distribution width (RBC) [Ratio] 13.3 % 11.6-14.6 [facility] Work Phone: [phone] Immature granulocytes/100 WBC (Bld) 0.000 % 0.0-0.9 [facility] Work Phone: [phone] Comment on above: IG% - Immature Granu locytes (promyelocytes, myelocytes and metamyelocytes) > 1% indicates that a LEFT SHIFT is Present. MCH (RBC) [Entitic mass] 31.3 pg 27.0-32.0 [facility] Work Phone: [phone] Nucleated RBC/100 WBC (Bld) [Ratio] 0 % 0-5 [facility] Work Phone: [phone] MCHC Auto (RBC) [Mass/Vol]on 08-18-2022 MCHC (RBC) [Mass/Vol] 31.9 g/dL 32-36 [facility] Work Phone: [phone] Panel Informationon 08-18 Estimated GFR (MDRD) Amer 98 mL/min >60 [facility] Work Phone: Comment on above: GFR Calc Estimated GFR (MDRD) Non-Af Amer 81 mL/min >60 [facility] Work Phone: Comment on above: Non- GFR Calc Vitamin D 25-Hydroxy 32.3 ng/mL [facility] Work Phone: Comment on above: Vitamin D 25(OH) Sta tus Range Deficiency <20 ng/mL (50nmol/L) Insufficiency 20 - 30 ng/mL (50 - 75 nmol/L) Sufficiency 30 - 100 ng/mL (75 - 250 nmol/L) Toxicity >100 ng/mL (>250 nmol/L) Platelets bldon 08-18-2022 Platelets (Bld) [#/Vol] 236 10*3/uL 150-450 [facility] Work Phone: Serum or plasma albumin jill urement (mass/volume)on 08-18-2022 Albumin [Mass/Vol] 3.7 g/dL 3.2-5.0 [facility] Work Phone: Serum or plasma albumin/glob ulin mass ratioon 08-18-2022 Albumin/Globulin [Mass ratio] 1.0 {ratio} 0.9-2.4 [facility] Work Phone: Serum or plasma calcium jill urement (mass/volume)on 08-18-2022 Calcium [Mass/Vol] 9.2 mg/dL 8.5-10.1 [facility] Work Phone: Serum or plasma cholesterol in HDL measurement (mass/volume)on 08-18-2022 Cholesterol in HDL [Mass/Vol] 105 mg/dL >40 [facility] Work Phone: Comment on above: The drugs N-Acetylcy steine and Metamizole may falsely depress this assay. Reference Range HDL <40 mg/dL Low HDL Cholesterol HDL >or= 60 mg/dL High HDL Cholesterol Serum or plasma cholesterol in VLDL measurement (mass/volume)on 08-18-2022 Cholesterol in VLDL [Mass/Vol] 36 mg/dL 5-40 [facility] Work Phone: Serum or plasma creatinine m easurement (mass/volume)on 08-18-2022 Creatinine [Mass/Vol] 0.75 mg/dL 0.55-1.02 [facility] Work Phone: Comment on above: The validity of the calculated GFR & GFRAA in patients over 70 years has not been determined. Clinical correlation is essential. Serum or plasma low density lipoprotein (LDL) cholesterol measurement (mass/volume)on 08-18-2022 Cholesterol in LDL [Mass/Vol] 203 mg/dL 0-130 [facility] Work Phone: [phone] Serum or plasma urea nitroge n measurement (mass/volume)on 08-18-2022 Urea nitrogen [Mass/Vol] 17 mg/dL 7-18 [facility] Work Phone: Thin prep Papanicolaou smear with manual screeningon 08-18-2022 Thin prep Papanicolaou smear with manual screening 27 U/L 15-37 [facility] Work Phone: [phone] Thin prep Papanicolaou smear with manual screening 5 5-15 [facility] Work Phone: [phone] Laboratory - Chemistry and C hemistry - challengeon 06-15-2022 T4 [Mass/Vol] 6.7 ug/dL 4.8-13.9 [facility] Work Phone: No Panel Informationon 06-15 Thyroid Stimulating Hormone (TSH) 3.26 uIU/mL 0.358-3.74 [facility] Work Phone: [phone] Laboratory - Chemistry and C hemistry - challengeon 03-17-2022 Free T4 [Mass/Vol] 0.96 ng/dL 0.76-1.46 [facility] Work Phone: [phone] Panel Informationon 03-17 Free Triiodothyronine (T3) pg/dL 2.3 pg/mL 2.18-3.98 [facility] Work Phone: [phone] Thyroid Stimulating Hormone (TSH) 0.16 uIU/mL 0.358-3.74 [facility] Work Phone: CV VENOUS LEG RTon 2 CV VENOUS LEG RT [place] [address] [place] [address] Patient: RICHIE ARMAS Phone#: : 1950 Age: 71 Gender: F Pt. Type: Out Account: [id number] Location: 052 Ordering: [employer] Exam Date: 03/04/2022/13:22 Family Phys: PRAVEEN CRUM Charge Code: [id number] Physician: [place] Order #: [id number] DLP Dose#: PROCEDURE: VENOUS DOPPLER RT LEG COMPARISON: None. INDICATIONS: Pain TECHNIQUE: Color duplex Doppler ultrasound evaluation analysis was performed in the usual manner. CAR DRYER: SIA RISK FACTORS FOR VENOUS DISEASE: LE [...] PERONEAL V + GSV GASTROC SOLEAL V CAR DRYER'S NOTES: Nonvascular structure noted behind the knee Continued Report - Page 2 of 2 Patient: RICHIE ARMAS Phone#: : 1950 Age: 71 Gender: F Pt. Type: Out Account: [id number] Location: 052 Ordering: [employer] Exam Date: 03/04/2022/13:22 Family Phys: PRAVEEN CRUM Charge Code: [id number] Physician: [place] Order #: [id number] DLP Dose#: FINDINGS: THROMBI: None visible. COMPRESSIBILITY: Normal. OTHER: Popliteal cyst is present. CONCLUSION: 1. There is no evidence of superficial or deep vein thrombus. Dictated by: Carrie Gooden MD on 03/04/2022 at 13:53 Approved by: Carrie Gooden MD on 03/04/2022 at 13:55 Normal [facility] EMERGENCY REPORTon 2 EMERGENCY REPORT [facility] EMERGENCY ROOM REPORT NAME ACCOUNT SEX AGE ADMIT DISCHARGE PT MED. RECORD# NUMBER DATE DATE JOE ARMAS [id number] Camryn 71 02/18/22 02/18/22 3 RICHIE [id number] ROOM: ER DATE OF : 1950 DICTATING [...] in an Page 1 of 2 RICHIE ARMAS Emergency Room Report RICHIE ARMAS : 1950 OrthoGlass stirrup splint. Ice, elevation, limited weight bearing as tolerated. Tylenol and ibuprofen as needed. She is to follow up with Orthopedics in 4-5 days if pain persists. Return if symptoms worsen. Dictated By: Jace Matehws MD 02/18/22 10:51 JOB #: [id number] Transcribed By: ita 02/19/22 08:41 Electronically signed by: KOFFI Mathews M.D. 02/26/22 07:33 Page 2 of 2 RICHIE ARMAS Emergency Room Report Normal [facility] ANKLE COMPLETE RTon 02-19-20 ANKLE COMPLETE RT [address] [address] Patient: PAWEL, RICHIE Phone#: : 1950 Age: 71 Gender: F Pt. Type: ER Account: [id number] Location: [facility] Ordering: JACE MATHEWS Exam Date: 02/18/2022/10:24 Family Phys: PRAVEEN CRUM Charge Code: [id number] Physician: [place] Order #: [id number] DLP Dose#: PROCEDURE: X-RAY ANKLE COMPLETE RT [...] Cardenas MD on 02/18/2022 at 10:45 Normal [facility] MR KNEE W/O LTon 02-04-2022 MR KNEE W/O LT [address] [address] Patient: PAWEL, RICHIE Phone#: : 1950 Age: 71 Gender: F Pt. Type: Out Account: [id number] Location: Ordering: BRANDON SEXTON Exam Date: 02/04/202213:09 Family Phys: Charge Code: [id number] Physician: [place] Order #: [id number] DLP Dose#: PROCEDURE: MRI KNEE LT WITHOUT [...] - Page 2 of 2 Patient: RICHIE RAMAS Phone#: : 1950 Age: 71 Gender: F Pt. Type: Out Account: [id number] Location: Ordering: BRANDON SEXTON Exam Date: 02/04/2022/13:09 Family Phys: Charge Code: [id number] Physician: [place] Order #: [id number] DLP Dose#: CONCLUSION: 1. Lateral meniscus posterior horn root attachment partial tear 2. Cartilage fissuring of the lateral tibial plateau and cartilage thinning medial patella facet 3. Partial ACL tear at the tibial attachment 4. Large ganglion posterior to the medial meniscus Dictated by: Farzaneh Cardenas MD on 02/08/2022 at 20:39 Approved by: Farzaneh Cardenas MD on 02/08/2022 at 20:50 Normal [facility] Absolute lymphocyte counton 12-21-2021 Lymphocytes Auto (Unsp spec) [#/Vol] 2.49 10*3/uL 0.83-4.51 [facility] Work Phone: Basophil percentageon 2021 Basophils/100 WBC (Bld) 0.7 % 0-1 [facility] Work Phone: Bilirubin [Mass/Vol] 0.30 mg/dL 0.20-1.00 [facility] Work Phone: Comment on above: For patients on eltr ombopag therapy, use of Dimension [place] TBIL is not recommended. Chloride [Moles/Vol] 104 mmol/L 98-107 [facility] Work Phone: Eosinophils/100 WBC (Bld) 1.5 % 0-5 [facility] Work Phone: Glucose [Mass/Vol] 86 mg/dL 74-106 [facility] Work Phone: Neutrophils (Bld) [#/Vol] 2.9 10*3/uL 2.0-7.7 [facility] Work Phone: Neutrophils/100 WBC (Bld) 46.4 % 47-70 [facility] Work Phone: Potassium [Moles/Vol] 4.0 mmol/L 3.5-5.1 [facility] Work Phone: Protein [Mass/Vol] 7.9 g/dL 6.4-8.2 [facility] Work Phone: Sodium [Moles/Vol] 138 mmol/L 136-145 [facility] Work Phone: WBC (Bld) [#/Vol] 6.1 10*3/uL 4.4-11.0 [facility] Work Phone: Blood erythrocytes count (nu mber/volume)on 12-21-2021 RBC (Bld) [#/Vol] 4.71 10*6/uL 4.2-5.4 [facility] Work Phone: Blood hemoglobin measurement (mass/volume)on 12-21-2021 Hemoglobin (Bld) [Mass/Vol] 14.3 g/dL 12.0-15.0 [facility] Work Phone: [phone] Blood lymphocytes/100 leukoc yteson 12-21-2021 Lymphocytes/100 WBC (Bld) 40.6 % 19-41 [facility] Work Phone: [phone] Blood monocytes/100 leukocyt eson 12-21-2021 Monocytes/100 WBC (Bld) 10.6 % 0-10 [facility] Work Phone: [phone] Blood platelet mean volumeon 12-21-2021 Platelet mean volume (Bld) [Entitic vol] 10.9 fL 6.2-12.0 [facility] Work Phone: [phone] Determination of erythrocyte mean corpuscular volume (MCV)on 12-21-2021 MCV (RBC) [Entitic vol] 94.7 fL 81-99 [facility] Work Phone: [phone] Giardia lamblia ag stool EIA on 12-21-2021 G. lamblia Ag IA Ql (Stl) Negative Negative [facility] Work Phone: [phone] Comment on above: Performed at: [address] [id number] Director: Emery Hallman PhD, Phone: [phone] Hematocrit Auto (Bld) [Volum e fraction]on 12-21-2021 Hematocrit (Bld) [Volume fraction] 44.6 % 37-47 [facility] Work Phone: Laboratory - Chemistry and C hemistry - challengeon 12-21-2021 ALP [Catalytic activity/Vol] 96 U/L 45-117 [facility] Work Phone: ALT [Catalytic activity/Vol] 21 U/L 13-56 [facility] Work Phone: [phone] Amylase [Catalytic activity/Vol] 24 U/L 5-55 [facility] Work Phone: [phone] CO2 [Moles/Vol] 30.0 mmol/L 21.0-32.0 [facility] Work Phone: [phone] Globulin (S) [Mass/Vol] 4.1 g/dL 2.2-4.2 [facility] Work Phone: [phone] Lipase [Catalytic activity/Vol] 62 U/L 73-393 [facility] Work Phone: [phone] Magnesium [Mass/Vol] 2.5 mg/dL 1.6-2.6 [facility] Work Phone: [phone] Urea nitrogen/Creatinine [Mass ratio] 20.9 mg/mg 10-20 [facility] Work Phone: [phone] Laboratory - Hematology and Cell countson 12-21-2021 Erythrocyte distribution width (RBC) [Entitic vol] 45.6 fL 35.1-43.9 [facility] Work Phone: [phone] Erythrocyte distribution width (RBC) [Ratio] 13.0 % 11.6-14.6 [facility] Work Phone: [phone] Immature granulocytes/100 WBC (Bld) 0.200 % 0.0-0.9 [facility] Work Phone: [phone] Comment on above: IG% - Immature Granu locytes (promyelocytes, myelocytes and metamyelocytes) > 1% indicates that a LEFT SHIFT is Present. MCH (RBC) [Entitic mass] 30.4 pg 27.0-32.0 [facility] Work Phone: [phone] Nucleated RBC/100 WBC (Bld) [Ratio] 0 % 0-5 [facility] Work Phone: [phone] MCHC Auto (RBC) [Mass/Vol]on 12-21-2021 MCHC (RBC) [Mass/Vol] 32.1 g/dL 32-36 [facility] Work Phone: No Panel Informationon 12-21 Anti-Gliadin IgA Antibody 4 units [facility] Work Phone: [phone] Comment on above: Negative 0 - 19 Weak Positive 20 - 30 Moderate to Strong Positive >30 Anti-Gliadin IgG Antibody 5 units [facility] Work Phone: [phone] Comment on above: Negative 0 - 19 Weak Positive 20 - 30 Moderate to Strong Positive >30 Endomysial IgA Antibody Negative Negative [facility] Work Phone: [phone] Estimated GFR (MDRD) Amer 89 mL/min >60 [facility] Work Phone: [phone] Comment on above: GFR Calc Estimated GFR (MDRD) Non-Af Amer 74 mL/min >60 [facility] Work Phone: [phone] Comment on above: Non- GFR Calc Tissue Transglutaminase IgG Ab 11 U/mL [facility] Work Phone: [phone] Comment on above: Negative 0 - 5 Weak Positive 6 - 9 Positive >9 Enteric Bacteriology [facility] Work Phone: Platelets bldon 12-21-2021 Platelets (Bld) [#/Vol] 265 10*3/uL 150-450 [facility] Work Phone: [phone] Serum IgA measurement (units /volume)on 12-21-2021 IgA Qn (S) 130 mg/dL [facility] Work Phone: [phone] Comment on above: Performed at: [address] [id number] Director: Emery Hallman PhD, Phone: [phone] Serum or plasma albumin jill urement (mass/volume)on 12-21-2021 Albumin [Mass/Vol] 3.8 g/dL 3.2-5.0 [facility] Work Phone: Serum or plasma albumin/glob ulin mass ratioon 12-21-2021 Albumin/Globulin [Mass ratio] 0.9 {ratio} 0.9-2.4 [facility] Work Phone: [phone] Serum or plasma calcium jill urement (mass/volume)on 12-21-2021 Calcium [Mass/Vol] 9.4 mg/dL 8.5-10.1 [facility] Work Phone: [phone] Serum or plasma creatinine m easurement (mass/volume)on 12-21-2021 Creatinine [Mass/Vol] 0.82 mg/dL 0.55-1.02 [facility] Work Phone: [phone] Comment on above: The validity of the calculated GFR & GFRAA in patients over 70 years has not been determined. Clinical correlation is essential. Serum or plasma urea nitroge n measurement (mass/volume)on 12-21-2021 Urea nitrogen [Mass/Vol] 17 mg/dL 7-18 [facility] Work Phone: [phone] Serum tissue transglutaminas e IgA antibody assay (units/volume)on 12-21-2021 tTG IgA Qn (S) <2 U/mL [facility] Work Phone: [phone] Comment on above: Negative 0 - 3 Weak Positive 4 - 10 Positive >10 Tissue Transglutaminase (tTG) has been identified as the endomysial antigen. Studies have demonstr- ated that endomysial IgA antibodies have over 99% specificity for gluten sensitive enteropathy. Thin prep Papanicolaou smear with manual screeningon 12-21-2021 Thin prep Papanicolaou smear with manual screening 28 U/L 15-37 [facility] Work Phone: [phone] Thin prep Papanicolaou smear with manual screening 4 5-15 [facility] Work Phone: [phone] Absolute lymphocyte counton 12-14-2021 Lymphocytes Auto (Unsp spec) [#/Vol] 1.16 10*3/uL 0.83-4.51 [facility] Work Phone: [phone] Basophil percentageon 2021 Basophils/100 WBC (Bld) 0.5 % 0-1 [facility] Work Phone: [phone] Bilirubin [Mass/Vol] 0.20 mg/dL 0.20-1.00 [facility] Work Phone: [phone] Comment on above: For patients on eltr ombopag therapy, use of Dimension [place] TBIL is not recommended. Chloride [Moles/Vol] 102 mmol/L 98-107 [facility] Work Phone: Eosinophils/100 WBC (Bld) 0.0 % 0-5 [facility] Work Phone: Glucose [Mass/Vol] 116 mg/dL 74-106 [facility] Work Phone: Comment on above: Fasting Glucose resu lt from 100 to 125 mg/dL suggests IMPAIRED HOMEOSTASIS per A.D.A. criteria. Neutrophils (Bld) [#/Vol] 5.2 10*3/uL 2.0-7.7 [facility] Work Phone: Neutrophils/100 WBC (Bld) 78.5 % 47-70 [facility] Work Phone: Potassium [Moles/Vol] 4.7 mmol/L 3.5-5.1 [facility] Work Phone: Protein [Mass/Vol] 7.3 g/dL 6.4-8.2 [facility] Work Phone: Sodium [Moles/Vol] 139 mmol/L 136-145 [facility] Work Phone: WBC (Bld) [#/Vol] 6.6 10*3/uL 4.4-11.0 [facility] Work Phone: Blood erythrocytes count (nu mber/volume)on 12-14-2021 RBC (Bld) [#/Vol] 4.40 10*6/uL 4.2-5.4 [facility] Work Phone: Blood hemoglobin measurement (mass/volume)on 12-14-2021 Hemoglobin (Bld) [Mass/Vol] 13.5 g/dL 12.0-15.0 [facility] Work Phone: Blood lymphocytes/100 leukoc yteson 12-14-2021 Lymphocytes/100 WBC (Bld) 17.7 % 19-41 [facility] Work Phone: Blood monocytes/100 leukocyt eson 12-14-2021 Monocytes/100 WBC (Bld) 3.0 % 0-10 [facility] Work Phone: [phone] Blood platelet mean volumeon 12-14-2021 Platelet mean volume (Bld) [Entitic vol] 11.1 fL 6.2-12.0 [facility] Work Phone: Determination of erythrocyte mean corpuscular volume (MCV)on 12-14-2021 MCV (RBC) [Entitic vol] 98.0 fL 81-99 [facility] Work Phone: Hematocrit Auto (Bld) [Volum e fraction]on 12-14-2021 Hematocrit (Bld) [Volume fraction] 43.1 % 37-47 [facility] Work Phone: Laboratory - Chemistry and C hemistry - challengeon 12-14-2021 ALP [Catalytic activity/Vol] 79 U/L 45-117 [facility] Work Phone: [phone] ALT [Catalytic activity/Vol] 15 U/L 13-56 [facility] Work Phone: [phone] CO2 [Moles/Vol] 29.0 mmol/L 21.0-32.0 [facility] Work Phone: [phone] Free T4 [Mass/Vol] 1.10 ng/dL 0.76-1.46 [facility] Work Phone: [phone] Globulin (S) [Mass/Vol] 3.5 g/dL 2.2-4.2 [facility] Work Phone: [phone] Urea nitrogen/Creatinine [Mass ratio] 32.8 mg/mg 10-20 [facility] Work Phone: Laboratory - Hematology and Cell countson 12-14-2021 Erythrocyte distribution width (RBC) [Entitic vol] 48.0 fL 35.1-43.9 [facility] Work Phone: [phone] Erythrocyte distribution width (RBC) [Ratio] 13.3 % 11.6-14.6 [facility] Work Phone: [phone] Immature granulocytes/100 WBC (Bld) 0.300 % 0.0-0.9 [facility] Work Phone: Comment on above: IG% - Immature Granu locytes (promyelocytes, myelocytes and metamyelocytes) > 1% indicates that a LEFT SHIFT is Present. MCH (RBC) [Entitic mass] 30.7 pg 27.0-32.0 [facility] Work Phone: Nucleated RBC/100 WBC (Bld) [Ratio] 0 % 0-5 [facility] Work Phone: [phone] MCHC Auto (RBC) [Mass/Vol]on 12-14-2021 MCHC (RBC) [Mass/Vol] 31.3 g/dL 32-36 [facility] Work Phone: No Panel Informationon 12-14 Estimated GFR (MDRD) Amer 101 mL/min >60 [facility] Work Phone: [phone] Comment on above: GFR Calc Estimated GFR (MDRD) Non-Af Amer 83 mL/min >60 [facility] Work Phone: [phone] Comment on above: Non- GFR Calc Thyroid Stimulating Hormone (TSH) 0.28 uIU/mL 0.358-3.74 [facility] Work Phone: Platelets bldon 12-14-2021 Platelets (Bld) [#/Vol] 272 10*3/uL 150-450 [facility] Work Phone: [phone] Serum or plasma albumin jill urement (mass/volume)on 12-14-2021 Albumin [Mass/Vol] 3.8 g/dL 3.2-5.0 [facility] Work Phone: [phone] Serum or plasma albumin/glob ulin mass ratioon 12-14-2021 Albumin/Globulin [Mass ratio] 1.1 {ratio} 0.9-2.4 [facility] Work Phone: [phone] Serum or plasma calcium jill urement (mass/volume)on 12-14-2021 Calcium [Mass/Vol] 9.0 mg/dL 8.5-10.1 [facility] Work Phone: Serum or plasma creatinine m easurement (mass/volume)on 12-14-2021 Creatinine [Mass/Vol] 0.73 mg/dL 0.55-1.02 [facility] Work Phone: Comment on above: The validity of the calculated GFR & GFRAA in patients over 70 years has not been determined. Clinical correlation is essential. Serum or plasma urea nitroge n measurement (mass/volume)on 12-14-2021 Urea nitrogen [Mass/Vol] 24 mg/dL 7-18 [facility] Work Phone: Thin prep Papanicolaou smear with manual screeningon 12-14-2021 Thin prep Papanicolaou smear with manual screening 20 U/L 15-37 [facility] Work Phone: Thin prep Papanicolaou smear with manual screening 8 5-15 [facility] Work Phone: Absolute lymphocyte counton 12-09-2021 Lymphocytes Auto (Unsp spec) [#/Vol] 1.65 10*3/uL 0.83-4.51 [facility] Work Phone: Basophil percentageon 2021 Basophils/100 WBC (Bld) 0.7 % 0-1 [facility] Work Phone: Chloride [Moles/Vol] 103 mmol/L 98-107 [facility] Work Phone: Eosinophils/100 WBC (Bld) 1.5 % 0-5 [facility] Work Phone: Glucose [Mass/Vol] 102 mg/dL 74-106 [facility] Work Phone: Comment on above: Fasting Glucose resu lt from 100 to 125 mg/dL suggests IMPAIRED HOMEOSTASIS per A.D.A. criteria. Neutrophils (Bld) [#/Vol] 1.9 10*3/uL 2.0-7.7 [facility] Work Phone: Neutrophils/100 WBC (Bld) 47.2 % 47-70 [facility] Work Phone: Potassium [Moles/Vol] 4.2 mmol/L 3.5-5.1 [facility] Work [phone] Sodium [Moles/Vol] 138 mmol/L 136-145 [facility] Work Phone: [phone] WBC (Bld) [#/Vol] 4.1 10*3/uL 4.4-11.0 [facility] Work Phone: [phone] Blood erythrocytes count (nu mber/volume)on 12-09-2021 RBC (Bld) [#/Vol] 4.35 10*6/uL 4.2-5.4 [facility] Work Phone: [phone] Blood hemoglobin measurement (mass/volume)on 12-09-2021 Hemoglobin (Bld) [Mass/Vol] 13.2 g/dL 12.0-15.0 [facility] Work Phone: [phone] Blood lymphocytes/100 leukoc yteson 12-09-2021 Lymphocytes/100 WBC (Bld) 40.0 % 19-41 [facility] Work Phone: [phone] Blood monocytes/100 leukocyt eson 12-09-2021 Monocytes/100 WBC (Bld) 10.4 % 0-10 [facility] Work Phone: [phone] Blood platelet mean volumeon 12-09-2021 Platelet mean volume (Bld) [Entitic vol] 10.9 fL 6.2-12.0 [facility] Work Phone: [phone] Determination of erythrocyte mean corpuscular volume (MCV)on 12-09-2021 MCV (RBC) [Entitic vol] 94.5 fL 81-99 [facility] Work Phone: Hematocrit Auto (Bld) [Volum e fraction]on 12-09-2021 Hematocrit (Bld) [Volume fraction] 41.1 % 37-47 [facility] Work Phone: Laboratory - Chemistry and C hemistry - challengeon 12-09-2021 CO2 [Moles/Vol] 30.0 mmol/L 21.0-32.0 [facility] Work Phone: [phone] Urea nitrogen/Creatinine [Mass ratio] 30.8 mg/mg 10-20 [facility] Work Phone: [phone] Laboratory - Hematology and Cell countson 12-09-2021 Erythrocyte distribution width (RBC) [Entitic vol] 46.5 fL 35.1-43.9 [facility] Work Phone: [phone] Erythrocyte distribution width (RBC) [Ratio] 13.2 % 11.6-14.6 [facility] Work Phone: [phone] Immature granulocytes/100 WBC (Bld) 0.200 % 0.0-0.9 [facility] Work Phone: [phone] Comment on above: IG% - Immature Granu locytes (promyelocytes, myelocytes and metamyelocytes) > 1% indicates that a LEFT SHIFT is Present. MCH (RBC) [Entitic mass] 30.3 pg 27.0-32.0 [facility] Work Phone: [phone] Nucleated RBC/100 WBC (Bld) [Ratio] 0 % 0-5 [facility] Work Phone: [phone] MCHC Auto (RBC) [Mass/Vol]on 12-09-2021 MCHC (RBC) [Mass/Vol] 32.1 g/dL 32-36 [facility] Work Phone: [phone] Panel Informationon 12-09 Estimated Creatinine Clearance Calc 43.30 ml/min [facility] Work Phone: [phone] Estimated GFR (MDRD) Amer 94 mL/min >60 [facility] Work Phone: [phone] Comment on above: GFR Calc Estimated GFR (MDRD) Non-Af Amer 78 mL/min >60 [facility] Work Phone: [phone] Comment on above: Non- GFR Calc Troponin I High Sensitivity 6 pg/mL 3.0-54.0 [facility] Work Phone: [phone] Comment on above: Please Note: New Crystal t Units and Gender Specific Reference Ranges. For more information see Policy Stat Procedure [place] High Sensitivity Troponin (TNIH) and attachments. Platelets bldon 12-09-2021 Platelets (Bld) [#/Vol] 230 10*3/uL 150-450 [facility] Work Phone: Serum or plasma calcium jill urement (mass/volume)on 12-09-2021 Calcium [Mass/Vol] 9.2 mg/dL 8.5-10.1 [facility] Work [facility]: Serum or plasma creatinine m easurement (mass/volume)on 12-09-2021 Creatinine [Mass/Vol] 0.78 mg/dL 0.55-1.[address] [facility] Work Phone: Comment on above: The validity of the calculated GFR & GFRAA in patients over 70 years has not been determined. Clinical correlation is essential. Serum or plasma urea nitroge n measurement (mass/volume)on 12-09-2021 Urea nitrogen [Mass/Vol] 24 mg/dL 7-18 [facility] Work Phone: Thin prep Papanicolaou smear with manual screeningon 12-09-2021 Thin prep Papanicolaou smear with manual screening 5 5-15 [facility] Work Phone: Vital Signs Date Time Vital Sign Value Performing Clinician Therese tavarez 06-27-2025 09:07-0400 Body temperature 98.29 [degF] Capodiana Jackson [employer] Work Phone: [employer] 06-27-2025 09:07-0400 Diastolic blood pressure 80 mm[Hg] Capodiana Rivka [employer] Work Phone: [employer] 06-27-2025 09:07-0400 Heart rate 75 /min Capodiana Jackson DO Work Phone: [facility] 06-27-2025 09:07-0400 Respiratory rate 18 /min Capodiana Jackson [employer] Work Phone: [employer] 06-27-2025 09:07-0400 SaO2% (BldA) [Mass fraction] 94 % Lidanicole Rivka [employer] Work Phone: [employer] 06-27-2025 09:07-0400 Systolic blood pressure 165 mm[Hg] Gokul Tineo DO Work Phone: [facility] 06-25-2025 15:58-0400 Body mass index (BMI) [Ratio] 23.61 kg/m2 Gokul Tineo DO Work Phone: [employer] 06-25-2025 15:58-0400 Body weight 60.46 kg Gokul Tineo DO Work Phone: [facility] 06-25-2025 11:57-0400 Body height 160 cm Gokul Tineo DO Work Phone: [employer] 06-22-2025 07:47-0400 Body temperature 98.4 [degF] Selvin Radford Work Phone: [facility] 06-22-2025 07:47-0400 Diastolic blood pressure 68 mm[Hg] Selvin Lynch MD Work Phone: [facility] 06-22-2025 07:47-0400 Heart rate 71 /min Selvin Radford Work Phone: [employer] 06-22-2025 07:47-0400 Respiratory rate 16 /min Selvin Radford Work Phone: [employer] 06-22-2025 07:47-0400 SaO2% (BldA) [Mass fraction] 96 % Selvin Lynch MD Work Phone: [facility] 06-22-2025 07:47-0400 Systolic blood pressure 147 mm[Hg] Selvin Lynch MD Work Phone: [employer] 06-22-2025 06:22-0400 Body mass index (BMI) [Ratio] 24.57 kg/m2 Selvin Lynch MD Work Phone: [facility] 06-22-2025 06:22-0400 Body weight 62.91 kg Selvin Radford Work Phone: [facility] 06-19-2025 08:26-0400 SaO2% (BldA) [Mass fraction] 98.9 % Selvin Lynch MD Work Phone: [facility] 06-19-2025 08:00-0400 Body height 160 cm Selvin Radford Work Phone: [facility] 06-19-2025 05:08-0400 SaO2% (BldA) [Mass fraction] 97.8 % Selvin Lynch MD Work Phone: [facility] 06-19-2025 03:24-0400 SaO2% (BldA) [Mass fraction] 97.8 % Selvin Lynch MD Work Phone: [facility] 06-19-2025 00:54-0400 SaO2% (BldA) [Mass fraction] 97.1 % Selvin Lynch MD Work Phone: [facility] 06-18-2025 19:44-0400 SaO2% (BldA) [Mass fraction] 98.4 % Selvin Lynch MD Work Phone: [facility] 06-18-2025 15:39-0400 SaO2% (BldA) [Mass fraction] 99.8 % Selvin Lynch MD Work Phone: [facility] 06-14-2025 15:23-0400 Body temperature 98.1 [degF] Dr. Praveen Crum MD Work Phone: [facility] 06-14-2025 15:23-0400 Diastolic blood pressure 103 mm[Hg] Dr. Praveen Crum MD Work Phone: [facility] 06-14-2025 15:23-0400 Heart rate 75 /min Dr. Praveen Crum MD Work Phone: [facility] 06-14-2025 15:23-0400 Respiratory rate 16 /min Dr. Praveen Crum MD Work Phone: [facility] 06-14-2025 15:23-0400 SaO2% (BldA) [Mass fraction] 98 % Dr. Praveen Crum MD Work Phone: [phone] [place] [address] 06-14-2025 15:23-0400 Systolic blood pressure 152 mm[Hg] Dr. Praveen Crum MD Work Phone: [phone] [place] [address] 06-14-2025 10:38-0400 Body height 160.[address] Praveen Crum MD Work Phone: 2([phone])768-933627 [place] [address] 06-14-2025 10:38-0400 Body weight [address] Praveen Crum MD Work Phone: 2([phone] [place] [address] 06-14-2025 06:55-0400 Inhaled oxygen flow rate 2 L/min Dr. Praveen Crum MD Work Phone: 5([phone])[phone] [place] [address] 06-14-2025 05:16-0400 Body mass index (BMI) [Ratio] 24.5 kg/m2 Dr. Praveen Crum MD Work Phone: 6(149)218-522027 [place] [address] 06-13-2025 20:03-0400 Body temperature 98.4 [degF] Dr. Praveen Crum MD Work Phone: [phone])[phone] [place] [address] 06-13-2025 20:03-0400 Diastolic blood pressure 89 mm[Hg] Dr. Praveen Crum MD Work Phone: 3([phone])701-188827 [place] [address] 06-13-2025 20:03-0400 Heart rate 75 /min Dr. Praveen Crum MD Work Phone: 2([phone])[phone] [place] [address] 06-13-2025 20:03-0400 Respiratory rate 16 /min Dr. Praveen Crum MD Work Phone: 8([phone])716-290327 [place] [address] 06-13-2025 20:03-0400 SaO2% (BldA) [Mass fraction] 100 % Dr. Praveen Crum MD Work Phone: 5(278)670-649527 [place] [address] 06-13-2025 20:03-0400 Systolic blood pressure 165 mm[Hg] Dr. Praveen Crum MD Work Phone: 9([phone])107-715827 [place] [address] 06-13-2025 19:29-0400 Inhaled oxygen flow rate 2 L/min Dr. Praveen Crum MD Work Phone: [facility] 06-13-2025 17:30-0400 Body height 160.[address] Praveen Crum MD Work Phone: [facility] 06-13-2025 17:30-0400 Body mass index (BMI) [Ratio] 23.6 kg/m2 Dr. Praveen Crum MD Work Phone: [facility] 06-13-2025 17:30-0400 Body weight 60.[address] Praveen Crum MD Work Phone: [facility] 01-25-2025 13:08-0500 Body height 160.[address] Praveen Crum MD Work Phone: [facility] 01-25-2025 13:08-0500 Body mass index (BMI) [Ratio] 27.1 kg/m2 Dr. Praveen Crum MD Work Phone: [facility] 01-25-2025 13:08-0500 Body weight 69.[address] Praveen Crum MD Work Phone: [facility] 12-20-2023 17:49-0500 Diastolic blood pressure 86 mm[Hg] [facility] 12-20-2023 17:49-0500 Heart rate 74 /min [facility] 12-20-2023 17:49-0500 Respiratory rate 16 /min [facility] 12-20-2023 17:49-0500 SaO2% (BldA) [Mass fraction] 95 % [facility] 12-20-2023 17:49-0500 Systolic blood pressure 161 mm[Hg] [facility] 12-20-2023 14:08-0500 Body height 160.02 cm [facility] 12-20-2023 14:08-0500 Body mass index (BMI) [Ratio] 29.7 kg/m2 [facility] 12-20-2023 14:08-0500 Body temperature 97.3 [degF] [facility] 12-20-2023 14:08-0500 Body weight 76.2 kg [facility] 01-03-2023 09:23-0500 Body temperature 98 [degF] Dr. Praveen Crum Work Phone: [facility] 01-03-2023 09:23-0500 Diastolic blood pressure 76 mm[Hg] Dr. Praveen Crum Work Phone: [facility] 01-03-2023 09:23-0500 Heart rate 80 /min Dr. Praveen Crum Work Phone: [facility] 01-03-2023 09:23-0500 Respiratory rate 14 /min Dr. Praveen Crum Work Phone: [facility] 01-03-2023 09:23-0500 SaO2% (BldA) [Mass fraction] 96 % Dr. Praveen Crum Work Phone: [facility] 01-03-2023 09:23-0500 Systolic blood pressure 128 mm[Hg] Dr. Praveen Crum Work Phone: [facility] 09-05-2022 07:11-0400 Body height 160.02 cm [facility] Work Phone: 09-05-2022 07:11-0400 Body mass index (BMI) [Ratio] 26.6 kg/m2 [facility] Work Phone: 09-05-2022 07:11-0400 Body temperature 97.4 [degF] [facility] Work Phone: 09-05-2022 07:11-0400 Body weight 68.1 kg [facility] Work Phone: 09-05-2022 07:11-0400 Diastolic blood pressure 84 mm[Hg] [facility] Work Phone: 09-05-2022 07:11-0400 Heart rate 71 /min [facility] Work Phone: 09-05-2022 07:11-0400 Respiratory rate 16 /min [facility] Work Phone: 09-05-2022 07:11-0400 SaO2% (BldA) [Mass fraction] 98 % [facility] Work Phone: 09-05-2022 07:11-0400 Systolic blood pressure 150 mm[Hg] [facility] Work Phone: 12-09-2021 14:30-0500 Diastolic blood pressure 77 mm[Hg] [facility] Work Phone: 12-09-2021 14:30-0500 Heart rate 68 /min [facility] Work Phone: 12-09-2021 14:30-0500 Respiratory rate 15 /min [facility] Work Phone: 12-09-2021 14:30-0500 SaO2% (BldA) [Mass fraction] 97 % [facility] Work Phone: 12-09-2021 14:30-0500 Systolic blood pressure 125 mm[Hg] [facility] Work Phone: 12-09-2021 12:04-0500 Body height 160.02 cm [facility] Work Phone: 12-09-2021 12:04-0500 Body mass index (BMI) [Ratio] 28.8 kg/m2 [facility] Work Phone: 12-09-2021 12:04-0500 Body temperature 98.5 [degF] 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 Edil Hong MD -[facility] Start: 06-13-2025 ambulatory Aftab Avila y:[facility] Start: 06-13-2025 End: 06-14-2025 Evaluation and management of inpatient Dr. Hui Morel MD -Intensive Care Unit Work Phone: Start: 03-15-2025 End: 03-15-[address] Praveen Crum MD Work Phone: [facility] Work Phone: Start: 03-15-2025 End: 03-15-[address] Praveen rCum MD Work Phone: [facility] Work Phone: Start: 03-15-2025 End: 03-15-2025 ambulatory Praveen Crum Facility:[facility] Start: 02-05-2025 End: 03-05-2025 ambulatory PRAVEEN CRUM MD Facility:[facility] [place] Start: 01-25-2025 End: 01-25-2025 Patient encounter procedure Sagrario OWEN -[facility] Work Phone: Start: 01-25-2025 End: 01-25-2025 ambulatory Sagrario Baltazar [place] [place] Start: 10-30-2024 End: 10-30-[address] Praveen Crum MD Work Phone: [facility] Work Phone: Start: 10-30-2024 End: 10-30-[address] Praveen Crum MD Work Phone: -Outpatient Bone Densitometry Work Phone: Start: 10-30-2024 End: 10-30-2024 ambulatory Praveen Crum Facility:[facility] Start: 03-05-2024 End: 03-05-2024 ambulatory [facility] Work Phone: Start: 03-05-2024 End: 03-05-2024 Patient encounter procedure [facility] Work Phone: Start: 12-20-2023 End: 12-20-2023 Emergency department patient visit [facility]-Emergency Department Work Phone: Start: 09-22-2023 End: 09-22-2023 Patient encounter procedure [facility]-Outpatient Breast Imaging Work Phone: Start: 06-30-2023 End: 06-30-2023 ambulatory [facility] Work Phone: Start: 06-30-2023 End: 06-30-2023 Discharged Recurring [facility]-Physical Therapy Work Phone: Start: 02-08-2023 End: 02-08-[address] Praveen Crum Work Phone: [facility] Work Phone: Start: 02-08-2023 End: 02-08-[address] Praveen Crum Work Phone: [facility] Start: 01-03-2023 End: 01-03-[address] Praveen Crum Work Phone: [facility] Start: 09-05-2022 End: 09-05-2022 Emergency department patient visit [facility]-Emergency Department Start: 08-31-2022 End: 08-31-2022 ambulatory [facility] Work Phone: Start: 08-31-2022 End: 08-31-2022 Patient encounter procedure [facility]-Outpatient Bone Densitometry Start: 08-18-2022 End: 08-18-2022 ambulatory [facility] Work Phone: Start: 08-18-2022 End: 08-18-2022 Patient encounter procedure [facility] Start: 06-15-2022 End: 06-15-2022 Patient encounter procedure [facility] Start: 04-07-2022 End: 04-26-2022 ambulatory PRAVEEN CRUM [facility] Start: 03-17-2022 End: 03-17-2022 Patient encounter procedure [facility] Start: 03-15-2022 End: 04-13-2022 ambulatory CHERY DPM [facility] Start: 03-04-2022 End: 03-04-2022 ambulatory CHERY DPM [facility] Start: 02-18-2022 End: 02-18-2022 Emergency department patient visit DR JACE MATHEWS [facility] Start: 02-04-2022 End: 02-04-2022 [facility] Start: 12-21-2021 End: 12-21-2021 Patient encounter procedure [facility] Start: 12-14-2021 End: 12-14-2021 Patient encounter procedure [facility] Start: 12-09-2021 End: 12-09-2021 Emergency department patient visit [facility]-Emergency Department Procedures Date Procedure Procedure Detail Performing Clinician Start: 06-27-2025 Cyanocobalamin vitam in b-12 Teresita Chris TRANSITIONAL CARE MANAGER - EXHIBIT BUILDER Work Phone: Start: 06-25-2025 Echo tthrc r-t 2d w/wom-mode compl spec&colr d Annette Saldana TRANSITIONAL CARE MANAGER - [employer] Work Phone: Start: 06-25-2025 Dup-scan xtr veins complete bilateral study Annette Saldana TRANSITIONAL CARE MANAGER - [employer] Work Phone: Start: 06-25-2025 Assay of troponin quantitative Hernesto Perez TELEPHONE STATION INST[employer]ER Work Phone: Start: 06-25-2025 Ecg routine ecg w/le ast 12 lds trcg only w/o i&r Lucho Longoria PA-C Work Phone: Start: 06-25-2025 Comprehensive metabo lic panel Bertha Berger MD Work Phone: Start: 06-24-2025 Mri brain brain stem w/o contrast material Bertha Berger MD Work Phone: Start: 06-24-2025 Urnls dip stick/tabl et rgnt auto w/o microscopy Lucho Longoria PA-C Work Phone: Start: 06-24-2025 Assay of free thyroxine Bertha Berger MD Work Phone: Start: 06-24-2025 Assay of magnesium Gabrielle Berger MD Work Phone: Start: 06-24-2025 Ct angiography head w/contrast/noncontrast Gokul Tineo DO Work Phone: Start: 06-24-2025 End: 06-24-2025 Comprehensive metabolic panel Lucho Longoria PA-C Work Phone: Start: 06-24-2025 Radiologic exam ches t single view Lucho Longoria PA-C Work Phone: Start: 06-24-2025 Ecg routine ecg w/le ast 12 lds trcg only w/o i&r Gokul Tineo DO Work Phone: Start: 06-24-2025 Thyrotropin [Units/volume] in Serum or Plasma Shaunna Johnston DO Work Phone: Start: 06-22-2025 Radiologic exam ches t single view Fiona Vega APRN - EXHIBIT BUILDER Work Phone: Start: 06-22-2025 Compatibility each u nit electronic Fiona Vega TRANSITIONAL CARE MANAGER - EXHIBIT BUILDER Work Phone: Start: 06-22-2025 Basic metabolic pane l calcium total Fiona A. Gary TRANSITIONAL CARE MANAGER - EXHIBIT BUILDER Work Phone: Start: 06-21-2025 Radiologic exam ches t single view Fiona Constance. [place] TRANSITIONAL CARE MANAGER - EXHIBIT BUILDER Work Phone: Start: 06-21-2025 Basic metabolic pane l calcium total Fiona A. Emilyarvindkobe TRANSITIONAL CARE MANAGER - EXHIBIT BUILDER Work Phone: Start: 06-20-2025 Glucose quantitative blood xcpt reagent strip Shaunna Johnston DO Work Phone: Start: 06-20-2025 Radiologic exam ches t single view Fiona A. Valerianojordyy TRANSITIONAL CARE MANAGER - EXHIBIT BUILDER Work Phone: Start: 06-20-2025 Ecg routine ecg w/le ast 12 lds trcg only w/o i&r Fiona Constance. Valerianoviet TRANSITIONAL CARE MANAGER - EXHIBIT BUILDER Work Phone: Start: 06-20-2025 Basic metabolic pane l calcium total Fiona Constance. Emilyarvindkobe TRANSITIONAL CARE MANAGER - EXHIBIT BUILDER Work Phone: Start: 06-19-2025 Glucose quantitative blood xcpt reagent strip Shaunna Johnston DO Work Phone: Start: 06-19-2025 Glucose quantitative blood xcpt reagent strip Shaunna Johnston DO Work Phone: Start: 06-19-2025 Glucose quantitative blood xcpt reagent strip Shaunna Johnston DO Work Phone: Start: 06-19-2025 Glucose quantitative blood xcpt reagent strip Shaunna Johnston DO Work Phone: Start: 06-19-2025 Blood gases any combination ph pco2 po2 co2 hco3 Fiona Constance. Emilyarvindkobe TRANSITIONAL CARE MANAGER - EXHIBIT BUILDER Work Phone: Start: 06-19-2025 Ecg routine ecg w/le ast 12 lds trcg only w/o i&r Fiona A. Valerianoviet TRANSITIONAL CARE MANAGER - EXHIBIT BUILDER Work Phone: Start: 06-19-2025 Radiologic exam ches t single view Fiona Constance. Valerianojordyy TRANSITIONAL CARE MANAGER - EXHIBIT BUILDER Work Phone: Start: 06-19-2025 Glucose quantitative blood xcpt reagent strip Shaunna Johnston DO Work Phone: Start: 06-19-2025 Blood gases any combination ph pco2 po2 co2 hco3 Marco Grande MD Work Phone: Start: 06-19-2025 Blood gases any combination ph pco2 po2 co2 hco3 Fiona Vega TRANSITIONAL CARE MANAGER - EXHIBIT BUILDER Work Phone: Start: 06-19-2025 End: 06-19-2025 Glucose quantitative blood xcpt reagent strip Shaunna Johnston DO Work Phone: Start: 06-19-2025 Blood gases any combination ph pco2 po2 co2 hco3 Fiona Vega TRANSITIONAL CARE MANAGER - EXHIBIT BUILDER Work Phone: Start: 06-19-2025 End: 06-19-2025 Basic metabolic panel calcium total Fiona Vega TRANSITIONAL CARE MANAGER - EXHIBIT BUILDER Work Phone: Start: 06-18-2025 Glucose quantitative blood xcpt reagent strip Shaunna Johnston DO Work Phone: Start: 06-18-2025 EXTUBATION Marco Rangel MD Work Phone: Start: 06-18-2025 RESPIRATORY THERAPY COMMUNICATION ORDER Marco Grande MD Work Phone: Start: 06-18-2025 End: 06-18-2025 Glucose quantitative blood xcpt reagent strip Shaunna Johnston DO Work Phone: Start: 06-18-2025 End: 06-18-2025 Blood count hematocrit Latrell Kidd DO Work Phone: Start: 06-18-2025 Blood gases any combination ph pco2 po2 co2 hco3 Fiona Vega TRANSITIONAL CARE MANAGER - EXHIBIT BUILDER Work Phone: Start: 06-18-2025 Glucose quantitative blood xcpt reagent strip Shaunna Johnston DO Work Phone: Start: 06-18-2025 Compatibility each u nit electronic Latrell Kidd DO Work Phone: Start: 06-18-2025 End: 06-18-2025 TRANSFUSE RED BLOOD CELLS Latrell Kidd DO Work Phone: Start: 06-18-2025 Ecg routine ecg w/le ast 12 lds trcg only w/o i&r Fiona ConstanceMilana Vega TRANSITIONAL CARE MANAGER - EXHIBIT BUILDER Work Phone: Start: 06-18-2025 End: 06-18-2025 Radiologic exam chest single view Shaunna Johnston DO Work Phone: Start: 06-18-2025 End: 06-18-2025 Basic metabolic panel calcium total Sandip Quezada MD Work Phone: Start: 06-18-2025 Blood gases any combination ph pco2 po2 co2 hco3 Sandip Quezada MD Work Phone: Start: 06-18-2025 Insj non-tunneled ce ntral venous cath age 6 yr/> Naresh Motta TITLE 1 TUTOR Start: 06-18-2025 OH AN CENTRAL LINE S DAVID LUMEN Naresh Motta TITLE 1 TUTOR Start: 06-18-2025 Us vasc access sits vsl patency ndl entry Naresh Motta TITLE 1 TUTOR Start: 06-18-2025 OH AN ELECTIVE ENDOTRACHEAL AIRWAY Naresh Motta TITLE 1 TUTOR Start: 06-18-2025 ANESTHESIA ARTERIAL LINE PLACEMENT Naresh Motta TITLE 1 TUTOR Start: 06-18-2025 End: 06-18-2025 Cabg w/arterial graft three arterial grafts Shaunna Johnston DO Work Phone: Start: 06-18-2025 End: 06-18-2025 Echo transesophag r-t 2d w/prb img acquisj i&r Shaunna Johnston DO Work Phone: Start: 06-18-2025 Ecg routine ecg w/le ast 12 lds trcg only w/o i&r Shayna Dodd DO Work Phone: Start: 06-18-2025 Thromboplastin time partial plasma/whole blood Jovanny Valdivia DO Work Phone: Start: 06-18-2025 Radiologic exam ches t single view Thierno Hopkins DO Work Phone: Start: 06-18-2025 Assay of troponin quantitative Thierno Hopikns DO Work Phone: Start: 06-18-2025 End: 06-18-2025 Ecg routine ecg w/least 12 lds trcg only w/o i&r Jovanny Valdivia DO Work Phone: Start: 06-18-2025 Antibody screen FIONA SCHERER Comment on above: Order Comment: Speci men is valid for 3 days - nurse to verify valid specimen Performed By: #### L [id number] ####Desktop Support Manager: MIGUEL LEAL ([id number])[facility] BLOOD [facility] ([address] Start: 06-18-2025 ABO and Rh group [Ty pe] in Blood by Confirmatory method Fiona Vega TRANSITIONAL CARE MANAGER - [employer] Work Phone: Start: 06-18-2025 Blood typing serolog ic rh (d) Fiona Vega TRANSITIONAL CARE MANAGER - EXHIBIT BUILDER Work Phone: Start: 06-18-2025 Comprehensive metabo lic panel Jovanny Valdivia DO Work Phone: Start: 06-17-2025 Iadna s aureus methicillin resist amp probe tq Fiona Vega TRANSITIONAL CARE MANAGER - EXHIBIT BUILDER Work Phone: Start: 06-17-2025 BEDSIDE SPIROMETRY Fiona Vega TRANSITIONAL CARE MANAGER - EXHIBIT BUILDER Work Phone: Start: 06-17-2025 Dup-scan xtr veins complete bilateral study Fiona Vega TRANSITIONAL CARE MANAGER - EXHIBIT BUILDER Work Phone: Start: 06-17-2025 Duplex scan extracra nial art compl bi study Fiona Vega TRANSITIONAL CARE MANAGER - EXHIBIT BUILDER Work Phone: Start: 06-17-2025 Ecg routine ecg w/le ast 12 lds trcg only w/o i&r Jovanny Valdivia DO Work Phone: Start: 06-17-2025 Comprehensive metabo lic panel Jovanny Valdivia DO Work Phone: Start: 06-16-2025 Ct thorax w/o contra st material Fiona Constance. Leskosky TRANSITIONAL CARE MANAGER - EXHIBIT BUILDER Work Phone: Start: 06-16-2025 Radiologic exam abdo men 1 view Shayna M Fricker DO Work Phone: Start: 06-16-2025 Creatine kinase total M inh Valdivia DO Work Phone: Start: 06-16-2025 Ecg routine ecg w/le ast 12 lds trcg only w/o i&r Jovanny Valdivia DO Work Phone: Start: 06-16-2025 Creatine kinase total M inh Valdivia DO Work Phone: Start: 06-16-2025 Thromboplastin time partial plasma/whole blood Jovanny Valdivia DO Work Phone: Start: 06-16-2025 Ecg routine ecg w/le ast 12 lds trcg only w/o i&r Philip Shaub DO Work Phone: Start: 06-16-2025 Comprehensive metabo lic panel Jovanny Valdivia DO Work Phone: Start: 06-15-2025 Creatine kinase total M inh Valdivia DO Work Phone: Start: 06-15-2025 Echo tthrc r-t 2d w/wom-mode compl spec&colr d Jovanny Valdivia DO Work Phone: Start: 06-15-2025 Creatine kinase total M inh Valdivia DO Work Phone: Start: 06-15-2025 Creatine kinase total M inh Valdivia DO Work Phone: Start: 06-15-2025 Ecg routine ecg w/le ast 12 lds trcg only w/o i&r Jovanny Valdivia DO Work Phone: Start: 06-15-2025 Lipid 1996 panel - S fernando or Plasma Naresh Lim MD Work Phone: Start: 06-15-2025 Comprehensive metabo lic panel Jovanny Valdivia DO Work Phone: Start: 06-15-2025 Lipid panel Jovanny Valdivia DO Work Phone: Start: 06-14-2025 Assay of troponin quantitative Jovanny Valdivia DO Work Phone: Start: 06-14-2025 Assay of troponin quantitative Jovanny Valdivia DO Work Phone: Start: 06-14-2025 Comprehensive metabo lic panel Jovanny Valdivia DO Work Phone: Start: 06-14-2025 Ecg routine ecg w/le ast 12 lds trcg only w/o i&r Jovanny Valdivia DO Work Phone: Start: 06-14-2025 Thyrotropin [Units/volume] in Serum or Plasma Shaunna Johnston DO Work Phone: Start: 06-14-[address] Praveen Crum MD Work Phone: Start: 06-13-2025 Plain chest X-ray Dr. Esther Crum MD Work Phone: Start: 06-13-[address] Praveen Crum MD Work Phone: Start: 03-15-2025 Plain X-ray abdomen Dr. Praveen Crum MD Work Phone: Start: 01-25-2025 X-ray of cervical spine Dr. Praveen Crum MD Work Phone: Start: 10-30-2024 Dual energy X-ray absorptiometry Dr. Praveen Crum MD Work Phone: Start: 10-30-2024 End: 10-30-[address] Praveen Crum MD Work Phone: Start: 12-20-2023 Plain chest X-ray Start: 09-22-2023 Screening mammography Start: 09-05-2022 Plain chest X-ray Start: 08-31-2022 Dual energy X-ray absorptiometry Start: 08-31-2022 Screening mammography Start: 12-21-2021 Enteric Bacteriology Start: 12-09-2021 Plain chest X-ray History of coronary artery bypass grafting S/P CABG (coronary artery bypass graft) Selvin Lynch MD Work Phone: Plan of Treatment Date Care Activity Detail Author Start: 07-27-2034 DTaP/Tdap/Td Vaccines (3 - Td or Tdap) DTaP/Tdap/Td Vaccines (3 - Td or Tdap) [facility] Start: 07-27-2034 [facility] Start: 06-15-2030 Lipid panel [facility] Start: 06-24-2026 Thyroid stimulating hormone measurement TSH Level [facility] Start: 06-16-2026 Diabetes mellitus screening [facility] Start: 06-14-2026 Thyroid stimulating hormone measurement [facility] Start: 10-30-2025 Screening for malignant neoplasm of breast [facility] Start: 07-22-2025 Influenza vaccination Influenza Vaccine (#1) [facility] Start: 07-22-2025 [facility] Start: 07-04-2025 End: 07-04-2025 Patient encounter procedure 07/04/2025 10:30 AM EDT Office Visit [facility] [address] [place] [id number] Thierno Reeder APRN - EXHIBIT BUILDER [address] [place], [place] [id number] [facility] Start: 06-24-2025 End: 07-24-2025 XR Chest 2 Views XR chest 2 views Imaging Routine Dyspnea, unspecified type Expected: 06/24/2025, Expires: 07/24/2025 [facility] Work Phone: Comment on above: Expected: 06/24/2025, Expires: Start: 06-14-2025 Patient discharge [facility] Start: 06-14-2025 Partial thromboplastin time, activated [facility] Start: 06-14-2025 Prothrombin time [facility] Start: 06-14-2025 Notification of physician [facility] Start: 06-14-2025 Patient education [facility] Start: 06-14-2025 Provision of activity privileges [facility] Start: 06-14-2025 Pulse taking [facility] Start: 06-14-2025 Taking patient vital signs [facility] Start: 06-14-2025 Wound care [facility] Start: 06-14-2025 [facility] Start: 06-14-2025 Catheterization of vein [facility] Start: 06-14-2025 Notification of physician [facility] Start: 06-14-2025 Preoperative care [facility] Start: 06-14-2025 [facility] Start: 06-14-2025 Patient discharge [facility] Start: 06-13-2025 Following clinical pathway protocol [facility] Start: 06-13-2025 Assessment of risk of venous thromboembolism [facility] Start: 06-13-2025 Continuous pulse oximetry [facility] Start: 06-13-2025 Elevation of head of bed [facility] Start: 06-13-2025 Incentive spirometry [facility] Start: 06-13-2025 Inhalation therapy procedure [facility] Start: 06-13-2025 Insertion of catheter into peripheral vein [facility] Start: 06-13-2025 Introduction of urinary catheter [facility] Start: 06-13-2025 Measuring intake and output [facility] Start: 06-13-2025 Oxygen therapy [facility] Start: 06-13-2025 Patient referral to dietitian [facility] Start: 06-13-2025 Providing care according to standard [facility] Start: 06-13-2025 Provision of activity privileges [facility] Start: 06-13-2025 Referral to night worker [facility] Start: 06-13-2025 Referral to occupational therapist [facility] Start: 06-13-2025 Referral to service [facility] Start: 06-13-2025 Tobacco use cessation education [facility] Start: 06-13-2025 Vital signs measurements [facility] Start: 06-13-2025 End: 06-13-2025 [facility] Start: 06-13-2025 Electrocardiographic procedure [facility] Start: 06-13-2025 Hospital admission, emergency, from emergency room, medical nature [facility] Start: 06-13-2025 Verification routine [facility] Start: 06-13-2025 Admission procedure [facility] Start: 06-13-2025 Partial thromboplastin time, activated [facility] Start: 06-13-2025 Prothrombin time [facility] Start: 06-13-2025 Referral to service [facility] Start: 06-13-2025 [facility] Start: 01-25-2025 Patient referral [facility] Work Phone: Start: 12-21-2023 Electrocardiographic procedure [facility] Start: 12-21-2023 [facility] Start: 12-20-2023 End: 12-20-2023 [facility] Start: 1969 Hepatitis C screening [facility] Start: 1963 Depression Screening Depression Screening [facility] Start: 1963 [facility] Start: 1950 Medicare Annual Wellness (AWV) Medicare Annual Wellness (AWV) [facility] Start: 1950 Screening for malignant neoplasm of colon [facility] Start: 1950 Screening for osteoporosis [facility] Start: 1950 [facility] Alternaria alternata IgE Ab [Units/volume] in Serum [facility] English Cockroach I gE Ab [Units/volume] in Serum [facility] English house dust mite IgE Ab [Units/volume] in Serum [facility] Aspergillus fumigatus [facility] Bahia grass IgE Ab [Units/volume] in Serum [facility] Bermuda grass IgE Ab [Units/volume] in Serum [facility] Box elder [facility] Cat dander IgE Ab [Units/volume] in Serum [facility] Cladosporium herbaru m IgE Ab [Units/volume] in Serum [facility] Common Ragweed IgE A b [Units/volume] in Serum [facility] Dog epithelium IgE A b [Units/volume] in Serum [facility] End: 06-25-2025 ECG 12 lead ECG 12 lead CV ECG STAT Once for 1 Occurrences starting 06/25/2025 until 06/25/2025 [facility] Comment on above: Once for 1 Occurrences starting 06/25/20 until 06/25/2025 End: 06-24-2025 ECG 12 lead if not done in the ED ECG 12 lead if not done in the ED CV ECG Routine Once for 1 Occurrences starting 06/24/2025 until 06/24/2025 [facility] Work Phone: Comment on above: Once for 1 Occurrences starting 06/24/20 until 06/24/2025 Erythrocyte mean cor puscular volume determination [facility] house dust mite IgE Ab [Units/volume] in Serum [facility] Hazelnut Pollen IgE Ab [Units/volume] in Serum [facility] Hematocrit [Volume F raction] of Blood [facility] Hemoglobin [Mass/vol ume] in Blood [facility] INR in Blood by Coag ulation assay [facility] INR in Blood by Coag ulation assay [facility] Raphael grass IgE Ab [Units/volume] in Serum [facility] Kentucky blue grass IgE Ab [Units/volume] in Serum [facility] Leukocytes [#/volume ] in Blood [facility] Mean corpuscular hem oglobin concentration determination [facility] Mean corpuscular hem oglobin determination [facility] Mountain Juniper IgE Ab [Units/volume] in Serum [facility] Mucor racemosus IgE Ab [Units/volume] in Serum [facility] Mugwort IgE Ab [Units/volume] in Serum [facility] Nettle IgE Ab [Units /volume] in Serum [facility] Neutrophil count [facility] Neutrophil percent differential count [facility] Patient Education [facility] Work Phone: Patient referral [facility] Work Phone: Penicillium notatum IgE Ab [Units/volume] in Serum [facility] Plantain (Omani) [facility] Platelets [#/volume] in Blood [facility] Red blood cell count [facility] Red cell distributio n width determination [facility] Rough Pigweed IgE Ab [Units/volume] in Serum [facility] Sheep Junior IgE Ab [Units/volume] in Serum [facility] Stemphylium botryosu m IgE Ab [Units/volume] in Serum [facility] Sweet gum [facility] Tree pollen [facility] Troponin T.cardiac [Mass/volume] in Serum or Plasma by High sensitivity method [facility] Troponin T.cardiac [Mass/volume] in Serum or Plasma by High sensitivity method [facility] End: 06-18-2025 Heart Transesophageal [facility] Work Phone: Heart Transesophageal [facility] White Elm IgE Ab [Units/volume] in Serum [facility] White Sterling IgE Ab [Units/volume] in Serum [facility] Imperial IgE Ab [Units/volume] in Serum [facility] Immunizations Immunization Date Immunization Notes Care Provider Fa ciliemili 07-27-2024 influenza virus vacc ine, unspecified formulation Naresh Lim MD Work Phone: [facility] Payers Date Payer Category Payer Medicare supplementa l policy (as second payer) [id number] 2024 Self-pay [id number] 2016 Medicare [id number] 2016 Unknown [id number] 2016 Medicare [id number] 1950 Unknown [id number]. 1950 Unknown [id number] 2.16.840.1.976888.3.579.2. 1950 Unknown [id number] 1950 Unknown [id number] 2.16.840.1.681891.3.579.2. 1950 Unknown [id number] [id number] 1950 Unknown [id number] [id number] Unknown [id number] [id number] Unknown [id number] [id number] Unknown [id number] [id number] Unknown [id number] [id number] Unknown [id number] [id number] Unknown [id number] [id number] Unknown [id number] [id number] Unknown [id number] Social History Date Type Detail Facility Start: 12-09-2021 End: 06-14-2025 Tobacco smoking status [facility] Unknown if ever smoked [facility] Start: 1950 Sex Assigned At Female [facility] Start: 02-25-2025 End: 06-14-2025 Sex Female (finding) [facility] Start: 06-13-2025 End: 06-25-2025 Tobacco smoking status SCIS Never smoked tobacco (finding) [facility] Start: 06-14-2025 End: 06-24-2025 History of Social function [facility] Start: 06-14-2025 End: 06-24-2025 Humiliation, Afraid, Rape, and Kick questionnaire [HARK] [facility] Within the last year , have you been afraid of your partner or ex-partner? No [facility] How often to you hav e a drink containing alcohol? 2-4 times a month [facility] How many standard dr inks containing alcohol do you have on a typical day? 1 or 2 [facility] How often do you hav e 6 or more drinks on 1 occasion? Never [facility] In the past 12 month s, how many times have you moved where you were living? 0 [facility] Start: 1950 Sex assigned at Not on file S [facility] Start: 06-25-2025 Tobacco use and exposure Smoke less tobacco non-user [facility] (I/We) worried whe er (my/our) food would run out before (I/we) got money to buy more. Never true [facility] Start: 06-25-2025 Tobacco Comment 06/25/25 Denies ever using tobacco/nicotine/vape [facility] Goals Date Patient Goal Desired Activity /State Personal health goal Functional Status Date Assessment Result Facility 06-24-2025 Total score [AUDIT-C] 0 06/24/20 9:38 AM Carol Smith RN [facility] 06-14-2025 Functional status Bedrest [facility] Work Phone: [facility] Mental Status Date Assessment Result Facility 06-14-2025 Cognitive function Voice/Name [facility] Work Phone: 06-13-2025 Cognitive function Voice/Name [facility] Work Phone: 12-20-2023 Cognitive function Voice/Name [facility] Work Phone: 09-05-2022 Cognitive function Level Of Cons ciousness Awake;Alert;Appropriate;Follow s Commands [facility] Work Phone: 12-09-2021 Cognitive function Level Of Cons ciousness Awake;Alert;Appropriate [facility] Work Phone: Clinical Notes 06-30-2023 to 06-27-2025 Fiona France DO - 06/27/2025 2:46 PM EDTCare Coordination - Unknown Case Management - 06/27/2025 2:46 PM EDTCare Coordination - Helen Hoskins - 06/27/2025 2:11 PM EDTDischarge Instructions Note Date & Type Note Facility 06-27-2025 Hospital course Narrative Hospitalist Discharge Summary Richie Armas : 1950 Admit date: 06/24/2025 Discharge date: 06/27/2025 Admitting Physician: Bertha Berger MD Primary Care Physician: PRAVEEN CRUM Visit Status: Inpatient Code Status: Full Code Acute, acute on chronic, unstable/uncontrolled chronic problems/discharge diagnoses: Toxic and metabolic encephalopathy - likely multifactorial due to polypharmacy, hospital delirium/sundowning, possible underlying undiagnosed dementia acute L cortical CVA Elevated troponin, flat trend, in the setting of recent CABG Lactic acidosis DM2 with hyperglycemia Anxiety Cognitive decline Stable chronic problems affecting care, new non-acute discharge diagnoses: Medical History[1] Procedures: NA Hospital Course: Richie is a 75 y.o. female with PMH of HLD, chronic low back pain s/p lumbar spinal surgery, IBS with constipation, GERD, fibromyalgia, hypothyroid,CKD 2, Raynaud's, anxiety depression, and recent CABG x3 on 06/18/2025 who presents with concerns of altered mental status, noted to have been more confused over the last few days and forgetful. Has been complaining of intermittent cramping after being started on therapy for her CABG. Pt later reported that she took oxycodone and tramadol together thinking it would help her sleep and this was on Tuesday night prior to her confusion episode. ED findings: Afebrile, vital signs relatively stable,Labs largely unremarkable other than lactic acidosis 2.8. Concern for stroke was brought up and patient had a CTA head and neck in the ER as well as a CT head without contrast which did not show any acute intracranial process or LVO. No high-grade stenosis either.ED requesting medical admission for continued stroke workup. MRI completed and showed two tiny acute cortical infarcts posterior aspect LEFT sylvian fissure. Extensive chronic ischemic changes. Neurology and geriatrics consulted. Neurology did not believe tiny infarcts to be related to pt's symptoms and believed more likely polypharmacy and delirium. Pt/Ot recommended home, but pt continues to be very confused and her with advanced dementia. Geriatrics added on prn agitation meds and started anxiety medication. Pt much improved and stable for discharge home on 06/27 with Rx for lidocaine patch and cymbalta and can continue taking melatonin at night for sleep. Geriatrics to follow up and son to live with her for a few days until he returns to [place]. See discharge diagnoses list above and medication adjustments below in med rec.The patient is discharged in improved and stable condition. Consults: IP CONSULT TO CASE MANAGEMENT IP CONSULT TO WOUND PREVENTION IP CONSULT TO NEUROLOGY IP CONSULT TO GERIATRICS IP CONSULT TO HOME CARE NEEDS Discharge Instructions: Diet: Dietary Orders (From admission, onward) Start Ordered 06/24/25 184 Adult diet Regular; Low Fat/Low Chol/High Fiber/SYMONE Diet effective now Question Answer Comment Diet type Regular Diet Cardiac type: Low Fat/Low Chol/High Fiber/SYMONE 06/24/251847 Activity: as tolerated Recommended Outpatient Tests: Disposition: Patient discharged in stable condition to Home. Greater than 50 minutes spent discharging the patient and coming up with patient discharge plan. Vitals: BP (!) 165/80 (BP Location: Left arm, Patient Position: Lying) Pulse 75 Temp 36.8 C (98.3 F) (Temporal) Resp 18 Ht 5' 3 (1.6 m) Wt 133 lb 4.8 oz (60.5 kg) SpO2 94% BMI 23.61 kg/m Pulse Ox: SpO2 Av.4 % Min: 94 % Max: 100 % Supplemental O2: GENERAL: sitting in bed comfortably, awake and alert HEENT: normocephalic, non-traumatic, MMM NECK: supple, trachea midline HEART: RRR, normal S1 and S2 LUNGS: non labored, no wheeze ABD: soft, non-distended MSK: no edema noted SKIN: warm, dry NEURO: no focal deficits PSYCH: anxious affect LABS: Recent Labs 06/25/25 0538 NA 140 K 3.6 CL 106 CO2 20* BUN 11 CREATININE 0.68 GLUCOSE 104 CALCIUM 9.0 Recent Labs 06/25/25 0538 WBC 6.5 RBC 3.62* HGB 10.9* HCT 34.3* MCV 94.8 MCH 30.1 MCHC 31.8 RDW 14.8 PLT 372 MPV 10.1 Discharge Medications: Medication List START taking these medications DULoxetine [address] capsule Commonly known as: Cymbalta Take 1 capsule (20 mg) by mouth daily. Do not crush or chew. Lidocaine 4 % patch Place 1 patch on the skin daily for 7 days. Start taking on: June 28, 2025 melatonin 3 MG tablet Take 1 tablet (3 mg) by mouth Nightly. CONTINUE taking these medications acetaminophen 500 MG tablet Commonly known as: Tylenol Take 2 tablets (1,000 mg) by mouth every 8 hours for 10 days. aspirin 81 MG chewable tablet Chew 1 tablet (81 mg) daily. clopidogrel 75 MG tablet Commonly known as: Plavix Take 1 tablet (75 mg) by mouth daily. ezetimibe 10 MG tablet Commonly known as: Zetia Take 1 tablet (10 mg) by mouth Nightly. furosemide 40 MG tablet Commonly known as: Lasix Take 1 tablet (40 mg) by mouth daily for 5 days. levothyroxine 50 MCG tablet Commonly known as: Synthroid, Levoxyl Take 1 tablet (50 mcg) by mouth every morning (before breakfast). metoprolol succinate XL 50 MG 24 hr tablet Commonly known as: Toprol-XL Take 1 tablet (50 mg) by mouth daily. Do not crush or chew. NIFEdipine XL 30 MG 24 hr tablet Commonly known as: Procardia XL Take 1 tablet (30 mg) by mouth daily. Do not crush, chew, or split. oxyCODONE 5 MG immediate release tablet Commonly known as: Roxicodone Take 1 tablet (5 mg) by mouth every 6 hours as needed for severe pain (7-10) (acute post surgical pain) for up to 5 days. potassium chloride CR 20 MEQ ER tablet Commonly known as: K-Tab Take 1 tablet (20 mEq) by mouth daily for 5 days. Do not crush, chew, or split. rosuvastatin 40 MG tablet Commonly known as: Crestor Take 1 tablet (40 mg) by mouth daily. tiZANidine 4 MG tablet Commonly known as: Zanaflex Where to Get Your Medications These medications were sent to [facility]/pharmacy #[id number] [facility] [id number] capsule Lidocaine 4 % patch melatonin 3 MG tablet Recommended Follow-up: Praveen Zuniga E Trisha Vidales [facility] [address] [facility] [phone] Follow up on 07/05/2025 Follow up from hospital stay at 2:50 PM [address] [place] [phone] Follow up in 1 month(s) Caregiver supports, cognitive evaluation, f/u mood Complexity of Follow up: [] Moderate Complexity: follow up within 7-14 calendar days (06921) [x] Severe Complexity: follow up within 7 calendar days (57682) Follow up Testing, Pending results or Referrals at Transitional Care Visit: [x] yes [] no Instructions to MA: Please call patient on day after discharge (must document patient contacted within 2 business days of discharge). Follow up questions for MA: 1. Did you get medications filled and taking them as instructed from discharge? 2. Are you following your discharge instructions from your hospital stay? 3. Please confirm patient is scheduled for a follow up appointment within the above time frame. Signed: Fiona France DO [facility] 06/27/2025, 3:00 PM [1] Past Medical History: Diagnosis Date Anxiety CKD (chronic kidney disease) stage 2, GFR 60-89 ml/min Depression Fibromyalgia GERD (gastroesophageal reflux disease) Heart disease Hyperlipidemia Hypothyroid IBS (irritable bowel syndrome) Raynaud's disease documented in this encounter [facility] 06-27-2025 Miscellaneous Notes Formattin g of this note might be different from the original. Patient Choice Patient Name: RICHIE ARMAS Date of : 1950 All Providers Sent Referral Name: [facility] Phone: [phone] Address: [facility] [address] [address] Name: [facility] Phone: [phone] Address: [address] [facility] [address] [place] [address] Name: [facility] Phone: [phone] Address: [address] [place] [address] Name: [facility] Phone: [phone] Address: [place] [address] Name: [facility] Phone: [phone] Address: [address] [place] [address] Name: [facility] Phone: [phone] Address: [address] [place] [address] Name: [facility] Phone: [phone] Address: [address] [facility] [address] [place] [address] Name: [facility] (formerly known [facility]) Phone: [phone] Address: [address] [place] [address] Name: [facility] Phone: [phone] Address: [address] [place] [address] Name: [facility] [place] Phone: [phone] Address: [address] [place] [address] Name: [facility] Phone: [phone] Address: [address] [place] [address] Name: [facility] [place] (All Offices) Phone: [phone] Address: [address] [address] Name: [facility] Phone: [phone] Address: [address] [place] [address] Name: [facility] Address: [address] [place] [address] Name: [facility] [place] (formerly [facility]) Phone: [phone] Address: [address] [place] [address] Name: [facility] Phone: [phone] Address: [address] [place] [address] Name: [facility] Phone: [phone] Address: [address] [place] [address] Name: [facility] Phone: [phone] Address: [address] [place] [address] Name: [facility] ([facility]) Address: [address] [place] [address] can worker met with patient's son in the patient room along with patient's . Koki from [facility] had reached out to the son and gave good resources for the family. [facility] followed up with the son as well for resources. can worker explained to the patient what resources/referrals I had done and told her we wanted to ensure her and her are safe and her son could have some peace of mind. Family denied any other needs. Patient is being discharged to home. Discharged to home with family , C wset up , son has resources . Patient has transport to home . can worker got permission from patient to call her son. Son is concerned about his mother being his father's primary caregiver. can worker made referral to Koki with [facility] via email. SW also made a referral to [facility] via their website. Plan is to meet with son later today to discussion about plans and discharge. SW will continue to follow as needed. Start PACC Note Home Health Referral Educated patient on Home Care and services available. Patient offered choice of available HHC and agreeable to SN/PT services with [facility]. Care Types: None Isolation Precautions: No active isolations Social Determinates of Health: Tobacco Use: Low Risk (06/25/2025) Patient History Smoking Tobacco Use: Never Smokeless Tobacco Use: Never Passive Exposure: Not on file Social History Substance and Sexual Activity Alcohol Use None Social History Substance and Sexual Activity Drug Use Not on file Does the patient have any financial resource strain? No Does the patient have any food insecurities? No Does the patient have any housing instabilities? No If any of the above is noted as yes - consider a GRAVITY PROSPECTING OPERATOR evaluation once the patient returns home. START PATIENT REGISTRATION INFORMATION Order Information Order Signing Physician: Fiona France, DO Service Ordered RN ?: Yes Service Ordered PT ?: Yes Service Ordered OT ?: No Service Ordered ST ?: No Service Ordered GRAVITY PROSPECTING OPERATOR?:No Service Ordered DIMENSION SPECIFICATION INSPECTOR?: No Following Physician: Shaunna Johnston MD Following Physician Overseeing Physician: Shaunna Johnston MD (Required for Residents only) Agreeable to Follow? Yes Date/Time of Call 06/26/25 3:49 PM, Spoke with: cts protocol/carlos protocol Care Coordination Same Day SOC?: No Primary Care Physician: PRAVEEN CRUM Primary Care Physician Primary Care Physician Address: [address] [place] [id number] Visit Instructions: N/A Service Discharge Location Type: Home with Home Care Service Facility Name: N/A Service Floor Facility: N/A Service Room No: N/A Demographics Patient Last Name: Pawel Patient First Name: Richie Language/Communication Barrier: no Service Address: [address] [place] [address] Service City: [facility] ST: [place] Service ZIP: [phone] Service (home) Other phone numbers: Telephone Information: Emergency Contact: Extended Emergency Contact Information Primary Emergency Contact: Sean Armas Mobile Relation: Spouse Secondary Emergency Contact: All Armas Mobile Relation: Daughter Preferred language: Omani Revenue Research Analyst needed? No Admission Information Admit Date: 06/24/2025 Patient status at discharge: Inpatient Admitting Diagnosis: Altered mental status, unspecified altered mental status type [R41.82] Caregiver Information Caregiver First Name: na Caregiver Last Name: na Caregiver Relationship to Patient na Caregiver Phone Number: na Caregiver Notes: N/A HITECH Hi-Tech List No END PATIENT REGISTRATION INFORMATION Pt Home Health goal go home COVID Status 1. Do you have any upper respiratory symptoms (cough, SOB, Fever)? No 2. Have you been exposed to anyone with COVID-19 Virus? No Answer only if pending or positive for COVID-19? 1. Agreeable to wear PPE at each visit? No 2. Is the hospital supplying them with PPE upon Discharge? No Start PACC Summary General Report/ Additional Comments CARLOS. Return home with SN/PT services. Acute, acute on chronic, unstable/uncontrolled chronic problems/diagnoses: Toxic and metabolic encephalopathy - likely multifactorial due to polypharmacy, hospital delirium/sundowning, likely underlying undiagnosed dementia acute L cortical CVA Elevated troponin, flat trend, in the setting of recent CABG Lactic acidosis DM2 with hyperglycemia Anxiety Cognitive decline Wound care/dressing changes: -Surgical incisions leave open to air, cleanse daily with mild soap & warm water, pat dry, no lotion or powders on incision. -Surgical tape/dsg removal 10 days from surgery date Respiratory Care: -Cough and Deep Breath; Use incentive spirometry 10 times every hour while awake for 2 weeks. Additional Orders: -Sternal precautions (no lifting, pushing, pulling >10 lbs) for 6 weeks-use heart pillow -Vitals per home health protocol-call for fever and chills -Daily weights- call for weight gain: 2-3lbs in one day; 5lbs in 3 days. -Wear TEDs during day and off at night. Lab Work: -If Diabetic: blood glucose testing as directed by PCP/Plodder Operator -For recent heart surgery if patient discharged on Coumadin verify need for INR draw on visit. 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 Planned Discharge Disposition: Home Health Services WHALEN active notified and following Barriers/Today we still Wait: Delirium clearing Length of Stay (Days): 2 GMLOS: No GMLOS Documented After being visited by [facility] and nursing general road supervisor, pt more calm and agreeable to care. Pt apologetic about earlier behavior. Pt assured that all is well. PCP follow up scheduled. Follow up with Praveen Crum Tuesday at 2:50 PM Follow up from [facility] [phone] Patient is currently active with [facility]. The patient is currently receiving SN/PT services through the agency. Special Effects Specialist to continue to follow. Care Management Progress Note Short Medical why still here: from home- re admission - recent CABG 06/18 , has pcp , script coverage and is home with . Home with [facility] . PT/OT neuro recs pending Planned Discharge Disposition: Home Health Services KOBY liaison notified via [facility] Barriers/Today we still Wait: Lath Hand recommendations (comment), Diagnostic workup Length of Stay (Days): 1 GMLOS: No GMLOS Documented documented in this encounter [facility] 06-27-2025 Progress note Formatting of t his note might be different from the original. Patient Choice Patient Name: RICHIE ARMAS Date of : 1950 All Providers Sent Referral [facility]: [facility] Phone: [phone] Address: [address] [place] [address] Name: [facility] Phone: [phone] Address: [address] [place] [address] [facility]: [facility] Phone: [phone] Address: [address] [place] [address] Name: [facility] Phone: [phone] Address: [place] [address] Name: [facility] Phone: [phone] Address: [address] [place] [address] Name: [facility] [place] Phone: [phone] Address: [address] [place] [address] Name: [facility] Phone: [phone] Address: [address] [facility] [address] [place] [address] Name: [facility] ([facility] known [facility]) Phone: [phone] Address: [address] [place] [address] Name: [facility] Phone: [phone] Address: [address] [place] [address] Name: [facility] [place] Phone: [phone] Address: [address] [place] [address] Name: [facility] Phone: [phone] Address: [address] [place] [address] Name: [facility] (All Offices) Phone: [phone] Address: [address] [place] [address] Name: [facility] Phone: [phone] Address: [address] [place] [address] Name: [facility] Address: [address] [place] [address] Name: [facility] [facility] [place]) Phone: [phone] Address: [address] [place] [address] Name: [facility] Phone: [phone] Address: [address] [facility] [address] [place] [address] Name: [facility] Phone: [phone] Address: [address] [place] [address] Name: [facility] Phone: [phone] Address: [address] [place] [address] Name: [facility] ([facility] Health) Address: [address] [place] [address] [facility] 06-27-2025 Progress note Formatting of t his note might be different from the original. can worker met with patient's son in the patient room along with patient's . Koki from [facility] had reached out to the son and gave good resources for the family. [facility] followed up with the son as well for resources. can worker explained to the patient what resources/referrals I had done and told her we wanted to ensure her and her are safe and her son could have some peace of mind. Family denied any other needs. Patient is being discharged to home. [facility] 06-27-2025 Progress note Formatting of t his note might be different from the original. Discharged to home with family , [facility] wset up , son has resources . Patient has transport to home . [facility] 06-27-2025 Nurse Note Pt given discharge instructions with son present and . IV out. Tele off. [facility] 06-27-2025 Nurse Note Pt given discharge instructions with son present and . IV out. Tele off. Co sign Khushi Shay RN Pt is saying she is calling the police and reporting that we are violating her rights by speaking to her neighbors and friends about her condition. Pt has called bulldozer press operator multiple times requesting police security. Nurse called All, her daughter, daughter called the room and spoke to patient. All called back and said even she could not convince pt she is in hospital and we are her caregivers. Daughter wants us to remove pts phone. Pt is very paranoid. Message sent to physician regarding above. Pt blood pressure running 170+ systolic, [place] notified. New order for one time dose labetalol. Pt refused medication, stating she no longer trusts this nurse because she believes we are texting her neighbors and family about her condition. Attempted to reassure pt that we are not disclosing any information about her to anyone not approved as an emergency contact. Pt raising her voice to this nurse You had a chance to come clean and admit you are talking to Mr. Shabazz about my having a stroke! Again assured pt this nurse has no idea who this person might be, and had not disclosed any information about her to anyone. Pt demanding to speak to a general road supervisor. Manager Contract called. [facility] notified of pt's change in mental status. documented in this encounter [facility] 06-27-2025 History of Presen t illness Narrative [facility] Inpatient Consult Service Admission Date: 06/24/2025 Assessment Principal Problem: Altered mental status, unspecified altered mental status type Plan Acute Metabolic Encephalopathy --Improving, --Etiology likely related to medication effects, transitions of care, recent hospitalization/surgery, stroke, impaired sleep, ?stress/anxiety --Encourage PO intake, time up in chair, family visits, supervised ambulation, and sleep hygiene --If agitated, assess for and consider treating for pain --QTc= 459 --[place] PRN Seroquel and Haldol for ONLY if danger to self/others/treatment and not otherwise redirectable-Do not anticipate needing on discharge --Continue scheduled melatonin at - Encouraged patient to continue on discharge to promote sleep/wake cycle. Reviewed with son today --Monitor for constipation/urinary retention - last BM unknown --Possible medication contributions: Tramadol and oxycodone with coadministration - consider eval/workup for sleep apnea -Consider reducing tizanidine to 2 mg as needed TID Depression/Anxiety -previously on venlafaxine that was stopped during her last hospitalization. Unclear indication at that time -concern for depression/anxiety especially post cardiac bypass and stroke -discussed with patient and family yesterday regarding starting duloxetine 20 mg daily for mood/pain control. Patient did not receive yesterday. Recommend close follow up with PCP regarding starting new medication and mood Caregiver stressors -primary caregiver for her with dementia -discussed connection with community resources, noted they are in [place] -consider follow up in [facility] for caregiver support, information added to discharge -Information provided to son at bedside regarding communication strategies, confabulation, nighttime behaviors. -can worker following and resources provided for [facility] and [facility] referral made Cognitive deficits --No baseline cognitive concerns, manages care of prior to surgery --TSH elevated but FT4 WNL, recommend rechecking as outpatient, B12 pending --Head imaging - MRI brain on 06/24/25 showing Two tiny acute cortical infarcts posterior aspect LEFT sylvian fissure. Extensive chronic ischemic changes. --Recommend increased supervision of medication management and administration. Consider automatic pill dispenser --Recommend outpatient follow up at [facility] for more in depth cognitive evaluation when in usual state of health. Discussed with patient and son. Information added to discharge paperwork. Plan discussed with RN, son, and at bedside. Follow-up: will follow with you Subjective Chief Complaint: Patient presents with Altered Mental Status Pt had open heart on 06/18, Patient c/o heart palpations, acid reflex flare and confusion for a few days. Geriatrics consulted for confusion, new stroke HPI- The patient is known to me. 75 y.o. year-old female admitted to acute care from home for altered mental status. Recent hospitalization 06/18/25 for CABG x3 and discharged home 06/22/25. Evaluated by neurology with mentation change felt to be likely result from taking both tramadol and oxycodone together for sleep. MRI brain showing two tiny acute cortical infarcts posterior aspect LEFT sylvian fissure and extensive chronic ischemic changes. Recommended stopping ultram and consider ECHO. Per review of initial geriatric consult note, no baseline cognitive concerns per son. Independent at baseline and primary caregiver to her . Interval History: Remains on 3W. No documented overnight events. Received PRN senna and miralax today. Has not needed PRNs for agitation. Refused Duloxetine yesterday as she wanted to take at nighttime. Patient received melatonin overnight. Discussed with primary service with plan to discharge home today. Patient awake and alert in bed. Reports she slept 3 hours overnight and is feeling better today than yesterday. Reports a sore throat and fatigue, believes it is since she had mono 10 years ago and requesting Keflex. Oriented to person, place, month, and year. Discussed with son at bedside regarding outpatient follow up, no questions at this time. 06/25: Seen by PT. Supervision assist. Ambulated 50 ft. Recommending home with PRN assist. 06/26: Seen by OT. Recommending Home with assist PRN, Home with Home health OT Review of Systems Constitutional: Positive for appetite change and fatigue. Negative for activity change and fever. HENT: Positive for rhinorrhea and sore throat. Respiratory: Positive for cough (occasional). Negative for shortness of breath. Cardiovascular: Negative for chest pain. Gastrointestinal: Negative for abdominal pain. Musculoskeletal: Positive for arthralgias and myalgias. Neurological: Positive for weakness and headaches. Negative for dizziness. Psychiatric/Behavioral: Negative for confusion and sleep disturbance. The patient is nervous/anxious. Objective BP (!) 165/80 (BP Location: Left arm, Patient Position: Lying) Pulse 75 Temp 36.8 C (98.3 F) (Temporal) Resp 18 Ht 5' 3 (1.6 m) Wt 133 lb 4.8 oz (60.5 kg) SpO2 94% BMI 23.61 kg/m Intake/Output Summary (Last 24 hours) at 06/27/2025 1322 Last data filed at 06/27/2025 0643 Gross per 24 hour Intake 820 ml Output -- Net 820 ml Wt Readings from Last 3 Encounters: 06/25/25 133 lb 4.8 oz (60.5 kg) 06/22/25 138 lb 11.2 oz (62.9 kg) Current Medications[1] Physical Exam Vitals reviewed. Constitutional: No acute distress, well-nourished, well kempt Psych: Mood and affect Appropriate. Good eye contact. Cardiovascular: Regular rate and rhythm, no murmur, no BLE edema Pulmonary/Chest: Clear to auscultation anterior only, normal respiratory effort, no coughing noted Abdominal: Soft, not distended, no tenderness to palpation, BS present, Neurological: alert, inattentive, speech is clear but vague , oriented x month, year, place, and self, follows commands, no tremor Musculoskeletal: Muscle strength 5/5 RLE, 5/5 LLE. Gait: assessment deferred Skin: warm and dry, no visible rashes or wounds, ecchymosis to right neck Labs and Imaging: No results found for this or any previous visit (from the past 24 hours). Lab Results Component Value Date TSH 5.65 (H) 06/24/2025 No results found for: EERJONHP45 No results found for: VITD25 Reviewed: allergies, active problem lists, medications, and labs [1] Current Facility-Administered Medications: acetaminophen (Tylenol) tablet 1,000 mg, 1,000 mg, Oral, TID, Teresita Chris APRN PRABHJOT, 1,000 mg at 06/27/25 1312 aspirin chewable tablet 81 mg, 81 mg, Oral, Daily, Bertha Berger MD, 81 mg at 06/27/2544 bisacodyl (Dulcolax) suppository 10 mg, 10 mg, Rectal, Daily PRN, Bertha Berger MD clopidogrel (Plavix) tablet 75 mg, 75 mg, Oral, Daily, Bertha Berger MD, 75 mg at 06/27/25843 DULoxetine (Cymbalta) DR capsule 20 mg, 20 mg, Oral, Daily, Teresita Chris APRN - EXHIBIT BUILDER ezetimibe (Zetia) tablet 10 mg, 10 mg, Oral, Nightly, Bertha Berger MD, 10 mg at 06/26/252109 haloperidol lactate (Haldol) injection 0.5 mg, 0.5 mg, IntraMUSCular, q6h PRN, Teresita Chris APRN [facility] labetalol (Normodyne,Trandate) injection 10 mg, 10 mg, IntraVENous, q10 min PRN, Bertha Berger MD, 10 mg at 06/26/25 0300 labetalol (Normodyne,Trandate) injection 10 mg, 10 mg, IntraVENous, Once, Hernesto Perez NP levothyroxine (Synthroid, Levoxyl) tablet 50 mcg, 50 mcg, Oral, qAM AC, Bertha Berger MD, 50 mcg at 06/27/25 0603 Lidocaine 4 % patch 1 patch, 1 patch, TransDERmal, Daily, Fiona France DO, 1 patch at 06/27/25 0843 melatonin tablet 3 mg, 3 mg, Oral, Nightly, Hernesto Perez NP, 3 mg at 06/26/252109 metoprolol succinate XL (Toprol-XL) 24 hr tablet 50 mg, 50 mg, Oral, Daily, Fiona France DO, 50 mg at 06/27/2544 naloxone (Narcan) injection 0.4 mg, 0.4 mg, IntraVENous, q5 min PRN, Bertha Berger MD NIFEdipine XL (Procardia XL) 24 hr tablet 30 mg, 30 mg, Oral, Daily, Fiona France, , 30 mg at 06/27/25 1122 ondansetron ODT (Zofran-ODT) disintegrating tablet 4 mg, 4 mg, Oral, q8h PRN OR ondansetron (Zofran) injection 4 mg, 4 mg, IntraVENous, q6h PRN, Bertha Berger MD oxyCODONE (Roxicodone) immediate release tablet 2.5 mg, 2.5 mg, Oral, q6h PRN OR oxyCODONE (Roxicodone) immediate release tablet 5 mg, 5 mg, Oral, q6h PRN, HOLLI Isaac CNP polyethylene glycol (PEG) 3350 (Miralax) packet 17 g, 17 g, Oral, Daily PRN, Bertha Berger MD, 17 g at 06/27/25 0843 QUEtiapine (SEROquel) tablet 12.5 mg, 12.5 mg, Oral, BID PRN, HOLLI Isaac CNP rosuvastatin (Crestor) tablet 40 mg, 40 mg, Oral, Daily, Bertha Berger MD, 40 mg at 06/26/25 2110 senna-docusate sodium (Senokot-S) 8.6-50 MG tablet 2 tablet, 2 tablet, Oral, Daily PRN, Ross Hawa Perez NP, 2 tablet at 06/26/25 1606 sodium chloride 0.9 % infusion, 50 mL/hr, IntraVENous, Continuous, Bertha Berger MD, Last Rate: 50 mL/hr at 06/25/25 0407, 50 mL/hr at 06/25/25 0407 PROGRESS NOTE: STROKE SERVICE Patient Name:Richie Armas Patient : 1950 Chief complaint: confusion Hospital Summary: 75 y.o. with a PMH of CABG on 06/18, HLD, fibromyalgia, CKD, Raynaud's, anxiety who presented to [facility] on 06/24/25 with a chief complaint of confusion. In ED NIH was 1 for sensory deficits. Pt notes that while in the hospital for CABG she laid on right side and noted flashing lights in her visual field and she has been worried on this since. When she went home she overdid it taking care of her demented and visiting with family. She became nervous she was not sleeping enough, so she took oxycodone and tramadol Tuesday night and woke on Tuesday confused, more likely unable to think clearly and carry her thoughts through to completion. CT of the brain is negative, CTA was normal as well. Son relates she has become very perseverative on many issues over the last two days. Yesterday she believed she had meningitis, today she is very worried about her carotids. Interval History: overnight pt had difficulty with behavior including extreme paranoia. Improved this morning. SBPs 153 - 188, Hrs 78 - 95, afebrile. Medications: Scheduled Meds[1] PRN Meds[2] Allergies: Flexeril [cyclobenzaprine] and Phenergan [promethazine] Review of Systems Constitutional: Negative for fatigue and fever. HENT: Negative for hearing loss, tinnitus, trouble swallowing and voice change. Eyes: Negative for photophobia and visual disturbance. Respiratory: Negative for cough and shortness of breath. Cardiovascular: Negative for chest pain, palpitations and leg swelling. Gastrointestinal: Negative for nausea and vomiting. Endocrine: Negative. Genitourinary: Negative for difficulty urinating. Musculoskeletal: Negative for gait problem. Neurological: Negative for dizziness, tremors, seizures, syncope, facial asymmetry, speech difficulty, weakness, light-headedness, numbness and headaches. Hematological: Negative. Psychiatric/Behavioral: Positive for confusion. Negative for agitation. The patient is nervous/anxious and is hyperactive. Physical Examination: Patient Vitals for the past 8 hrs: BP Temp Temp src Pulse Resp SpO2 06/26/25 1359 147/74 36.8 C (98.3 F) Temporal 76 18 98 % 06/26/25 1200 -- -- -- 75 -- -- 06/26/25 1012 148/78 36.8 C (98.3 F) Temporal 80 22 97 % I/O last 3 completed shifts: In: 1509.2 (25 mL/kg) [P.O.:840; I.V.:669.2 (11.1 mL/kg)] Out: - (0 mL/kg) Weight: 60.5 kg General Physical Examination: General: awake, alert, pleasant, anxious, conversive HEENT: Normocephalic, atraumatic CV: S1+S2, RRR, no murmurs. Pulm: CTA, intubated, ventilated Abdomen: Soft NT/ND. BS + Skin: warm, dry Extremities: normal with no edema or cyanosis Orthopedic limitation: N/A Pulses: Intact peripherally Carotid auscultation: No bruits Neurological Examination: Higher Functions: Mental Status Exam: Level of Alertness: Awake Orientation: Normal to self, time, place but does get confused when trying to relate events of past days Memory: Normal Fund of Knowledge: Normal Language: Normal Dysarthria: not present Cranial Nerves: II Visual acuity: not tested II Visual bergman: normal III Pupils (~ 3 mm right, 3 mm left) equal, round, reactive to light IIIPtosis not present III-IV- Extraocular Movements: intact Nystagmus: not present Saccades and pursuits: normal V Facial sensation: intact Corneal's: Intact bilateral VII Facial strength: intact VIII Hearing: intact IX-X Gag reflex: present Cough reflex: present X Palate: intact XI Shoulder shrug: normal} XII Tongue movement: normal Motor Examination: Tone after evaluation of 4 limbs, the following findings applied: Normal Bulk: normal Muscle Strength after evaluation of all limbs and axial musculature the following findings applied: Drift: absent Reflexes: after evaluation of 4 limbs, the following findings applied: normal all limbs Plantar response: Flexor Bilaterally Sensory Examination: grossly intact to light touch Coordination Examination: Arms: Normal finger to nose Legs: Intact heel knee dan testing Tremors: not present Gait: not observed NIH Stroke Score 1a Level of consciousness: 0=alert; keenly responsive 1b. LOC questions: 0=Performs both tasks correctly 1c. LOC commands: 0=Performs both tasks correctly 2. Best Gaze: 0=normal 3. Visual: 0=No visual loss 4. Facial Palsy: 0=Normal symmetric movement 5a. Motor left arm: 0=No drift, limb holds 90 (or 45) degrees for full 10 seconds 5b. Motor right arm: 0=No drift, limb holds 90 (or 45) degrees for full 10 seconds 6a. motor left le=No drift, limb holds 90 (or 45) degrees for full 10 seconds 6b Motor right le=No drift, limb holds 90 (or 45) degrees for full 10 seconds 7. Limb Ataxia: 0=Absent 8. Sensory: 0=Normal; no sensory loss 9. Best Language: 0=No aphasia, normal 10. Dysarthria: 0=Normal 11. Extinction and Inattention: 0=No abnormality Total: 0 Labs CBC: Lab Results Component Value Date WBC 6.5 06/25/2025 HGB 10.9 (L) 06/25/2025 HCT 34.3 (L) 06/25/2025 MCV 94.8 06/25/2025 PLT 372 06/25/2025 BMP/CMP: Lab Results Component Value Date GLUCOSE 104 06/25/2025 CALCIUM 9.0 06/25/2025 NA 140 06/25/2025 K 3.6 06/25/2025 CO2 20 (L) 06/25/2025 CL 106 06/25/2025 BUN 11 06/25/2025 CREATININE 0.68 06/25/2025 Lipids: HgA1c: Lab Results Component Value Date HGBA1C 5.8 (H) 06/16/2025 Cardiac testing: TTE: Left Ventricle: Not well visualized. Left ventricle size is normal. Normal wall thickness. Low normal left ventricular systolic function. EF by 2D Simpsons Biplane is 51%. Mild hypokinesis of the apex. Grade I diastolic dysfunction with normal LAP. Septal motion is consistent with post-operative status. Right Ventricle: Not well visualized. Right ventricle size is normal. Normal systolic function. Tricuspid Valve: Moderate (2+) regurgitation. Normal RVSP. RVSP is 33 mmHg. Aorta: Not well visualized. Normal sized ascending aorta. Mildly dilated sinuses of Valsalva. Sinuses of Valsalva diameter is 3.6 cm. Normal sized STJ. Technically difficult study. - Left and right atrium is mildly dilated Lower Extremity Dopplers: No evidence of deep vein or superficial vein thrombosis in the right lower extremity. Vessels demonstrate normal compressibility, color filling, and phasic and spontaneous flow. No evidence of deep vein or superficial vein thrombosis in the left lower extremity. Vessels demonstrate normal compressibility, color filling, and phasic and spontaneous flow. Non vascularized structure noted in the left groin to distal thigh, measuring 17.67cm x 1.89cm. Radiology/imaging personal review: MRI brain: MR brain wo contrast Result Date: 06/24/2025 [facility] 1950 [id number] Exam Date/Time: 06/24/2025 15:13 Procedure: MR BRAIN WO CONTRAST Ordering Provider: BERGER MARYAM Reason For Exam: Mental status change, unknown cause MRI OF THE BRAIN WITHOUT GADOLINIUM CLINICAL INDICATION: Mental status change, unknown cause TECHNIQUE: Routine MRI of the brain without gadolinium. COMPARISON: CT scan from earlier today FINDINGS: Diffusion-weighted imaging shows two tiny foci of restricted diffusion with corresponding low signal on ADC map in the posterior LEFT sylvian fissure cortex, compatible with tiny acute infarcts. No hemorrhage mass effect or midline shift. There are patchy and confluent areas of T2 bright signal in the periventricular and subcortical white matter, which are nonspecific, but may relate to chronic small vessel ischemic changes. Ventricular system is normal for age. Basal cisterns are not effaced. No pathologic extra-axial fluid collection identified. Major intracranial flow voids are visualized. 1. 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 Extensive chronic ischemic changes. CRITICAL TEST RESULT COMMUNICATION: Notification of these findings was made to BERTHA BERGER via [employer] on 06/24/2025 7:02 PM EDT. Report Dictated on Electronically Signed By: Ramesh Merino MD Electronically Signed Date/Time: 06/24/2025 7:02 PM EDT ASSESSMENT / PLAN / RECOMMENDATIONS: Encephalopathy This is not likely a result of stroke, but more likely a result of taking both tramadol and oxycodone together to help with sleep. Discussion had with patient about not taking these medications together and further more not using tramadol as this can cause seizures in some pts. Incidental finding of cortical DWI changes, possible stroke, likely raven-procedural to CABG Continue dual antiplatelet therapy Recommend normotension Pt remains at risk from stroke given the hypokinesis of the apex and dilation of atria. . Consider outpatient testing for MEG, given concern for this would limit use of [facility] depressants There is a possibility this DWI change may have been the result of seizure focus due to use of tramadol 3. HLD Continue statin and zetia therapy 4. Anxiety Mild cognitive impairment is likely enhancing this anxiety as well as causing the sundowning behaviors that were experienced last night. Discussed with son. Pt is extremely anxious and stressed about her home care giving situation and may benefit from counseling or medication to help with this 35 minutes of my independent time was spent preparing to see the patient, obtaining/reviewing separately obtained history, completing an appropriate medical examination of the patient, ordering medications/tests/procedures, documenting clinical information on the EMR, and/or coordinating care. An additional 10 minutes was spent discussing assessment/plan with Dr. Valle. [1] acetaminophen, 1,000 mg, Oral, TID aspirin, 81 mg, Oral, Daily clopidogrel, 75 mg, Oral, Daily DULoxetine, 20 mg, Oral, Daily ezetimibe, 10 mg, Oral, Nightly labetalol, 10 mg, IntraVENous, Once levothyroxine, 50 mcg, Oral, qAM AC Lidocaine, 1 patch, TransDERmal, Daily melatonin, 3 mg, Oral, Nightly metoprolol succinate XL, 50 mg, Oral, Daily NIFEdipine XL, 30 mg, Oral, Daily rosuvastatin, 40 mg, Oral, Daily [2] PRN medications: bisacodyl, haloperidol lactate, labetalol, naloxone, ondansetron ODT OR ondansetron, oxyCODONE OR oxyCODONE, polyethylene glycol (PEG) 3350, QUEtiapine, senna-docusate sodium Hospitalist Progress Note 06/26/2025 Subjective: Admit Date: 06/24/2025 PCP: PRAVEEN CRUM Room#: [id number] A BRIEF HOSPITAL COURSE: Richie is a 75 y.o. female with PMH of HLD, chronic low back pain s/p lumbar spinal surgery, IBS with constipation, GERD, fibromyalgia, hypothyroid,CKD 2, Raynaud's, anxiety depression, and recent CABG x3 on 06/18/2025 who presents with concerns of altered mental status, noted to have been more confused over the last few days and forgetful. Has been complaining of intermittent cramping after being started on therapy for her CABG. Pt later reported that she took oxycodone and tramadol together thinking it would help her sleep and this was on Tuesday night prior to her confusion episode. ED findings: Afebrile, vital signs relatively stable,Labs largely unremarkable other than lactic acidosis 2.8. Concern for stroke was brought up and patient had a CTA head and neck in the ER as well as a CT head without contrast which did not show any acute intracranial process or LVO. No high-grade stenosis either.ED requesting medical admission for continued stroke workup. MRI completed and showed two tiny acute cortical infarcts posterior aspect LEFT sylvian fissure. Extensive chronic ischemic changes. Neurology and geriatrics consulted. Neurology did not believe tiny infarcts to be related to pt's symptoms and believed more likely polypharmacy and delirium. Pt/Ot recommended home, but pt continues to be very confused and her with advanced dementia. Geriatrics added on prn agitation meds and started anxiety medication. Plan will be home once mentation/sundowning improves Interval History: 06/26: Pt seen and examined. Per notes, had another episode of sundowning/agitation overnight calling the bulldozer press operator multiple times asking for the police (see notes). Pt much more alert and oriented today, though extreme flight of thought. Son believes she is better today, but expressed concern over her continued episodes at night as neither he, nor his sister, can assist 24 hours. Spoke to geriatrics who is starting prn agitation meds as well as anxiety medication today. Pt eager to get home Adult diet Regular; Low Fat/Low Chol/High Fiber/SYMONE 24HR INTAKE/OUTPUT: Intake/Output Summary (Last 24 hours) at 06/26/2025 1407 Last data filed at 06/26/2025 0415 Gross per 24 hour Intake 340 ml Output -- Net 340 ml Past Medical History: Medical History[1] LABS: CBC: Recent Labs 06/24/25 1013 06/25/25 0538 WBC 7.8 6.5 RBC 3.31* 3.62* HGB 10.1* 10.9* HCT 31.5* 34.3* MCV 95.2 94.8 RDW 14.9 14.8 PLT 305 372 BMP: Recent Labs 06/24/25 1013 06/25/25 0538 NA 135* 140 K 3.8 3.6 CL 99 106 CO2 22* 20* BUN 20 11 CREATININE 0.77 0.68 GLUCOSE 110 104 CALCIUM 9.8 9.0 ANIONGAP 14* 14* LIVER PROFILE: Recent Labs 06/24/25 1013 06/25/25 0538 AST 39* 40* ALT 11 11 BILITOT 0.7 0.7 ALKPHOS 80 75 PROT 7.4 6.9 PT/INR: No results for input(s): PROTIME, INR in the last 72 hours. CARDIAC ENZYMES: No results for input(s): TROPONINI in the last 72 hours. Procalcitonin: No results found for: PROCAL COVID-19 PCR: No results for input(s): COVID19 in the last 72 hours. Objective: Vitals: BP 147/74 (BP Location: Right arm, Patient Position: Sitting) Pulse 76 Temp 36.8 C (98.3 F) (Temporal) Resp 18 Ht 5' 3 (1.6 m) Wt 133 lb 4.8 oz (60.5 kg) SpO2 98% BMI 23.61 kg/m Pulse Ox: SpO2 Av.4 % Min: 89 % Max: 98 % Supplemental O2: GENERAL: sitting in chair comfortably, awake and alert HEENT: normocephalic, non-traumatic, MMM NECK: supple, trachea midline HEART: RRR, normal S1 and S2 LUNGS: non labored, no wheeze ABD: soft, non-distended MSK: no edema noted SKIN: warm, dry NEURO: no focal deficits PSYCH: flight of thought Medications: Scheduled PRN Scheduled Meds[2] PRN Meds[3] Continuous Continuous Meds[4] Assessment Data: Acute, acute on chronic, unstable/uncontrolled chronic problems/diagnoses: Toxic and metabolic encephalopathy - likely multifactorial due to polypharmacy, hospital delirium/sundowning, likely underlying undiagnosed dementia acute L cortical CVA Elevated troponin, flat trend, in the setting of recent CABG Lactic acidosis DM2 with hyperglycemia Anxiety Cognitive decline Stable chronic problems affecting care, new non-acute diagnoses: Medical History[5] Plan As a result of the above findings & factors, the following mgmt was pursued: - cont meds as ordered - neurology - cont DAPT, statin. Though acute CVA on imaging, her symptoms are not consistent with this as the etiology and likely more so due to polypharmacy of taking tramadol and oxycodone together along with episodes of delirium - geriatrics consulted given AMS, likely underlying undiagnosed dementia, family dynamics at home caring for her , anxiety - am labs, replace lytes prn - PT/OT/CM/SW - delirium precautions: increase activity and limit nighttime disturbances - DVT prophylaxis: encourage ambulation Advance Directive: Full Code Anticipated Discharge - Date - 06/27-06/28 - Location - home - Pending the following - mentation, improvement in , geriatrics recs Dispo: Plan will be home at discharge. Son, from [place], unable to care for her and daughter is apparently undergoing medical treatment and also unable to be there 24 hours. with Alzheimers. I do believe this is mostly hospital delirium and will likely subside/improve upon returning home, but pt will still need close monitoring for a few days and eventual full cognitive evaluation at a later date Total time spent (which include face to face and non face to face encounters) : 50 minutes Extended Emergency Contact Information Primary Emergency Contact: Sean Armas Mobile Relation: Spouse Secondary Emergency Contact: All Armas Mobile Relation: Daughter Preferred language: Omani Revenue Research Analyst needed? No Fiona France DO Division of Hospitalist Medicine Acute care [facility] [1] Past Medical History: Diagnosis Date Anxiety CKD (chronic kidney disease) stage 2, GFR 60-89 ml/min Depression Fibromyalgia GERD (gastroesophageal reflux disease) Heart disease Hyperlipidemia Hypothyroid IBS (irritable bowel syndrome) Raynaud's disease [2] acetaminophen, 1,000 mg, Oral, TID aspirin, 81 mg, Oral, Daily clopidogrel, 75 mg, Oral, Daily DULoxetine, 20 mg, Oral, Daily ezetimibe, 10 mg, Oral, Nightly labetalol, 10 mg, IntraVENous, Once levothyroxine, 50 mcg, Oral, qAM AC Lidocaine, 1 patch, TransDERmal, Daily melatonin, 3 mg, Oral, Nightly metoprolol succinate XL, 50 mg, Oral, Daily NIFEdipine XL, 30 mg, Oral, Daily rosuvastatin, 40 mg, Oral, Daily [3] PRN medications: bisacodyl, haloperidol lactate, labetalol, naloxone, ondansetron ODT OR ondansetron, oxyCODONE OR oxyCODONE, polyethylene glycol (PEG) 3350, QUEtiapine, senna-docusate sodium [4] sodium chloride, 50 mL/hr, Last Rate: 50 mL/hr (06/25/25 0407) [5] Past Medical History: Diagnosis Date Anxiety CKD (chronic kidney disease) stage 2, GFR 60-89 ml/min Depression Fibromyalgia GERD (gastroesophageal reflux disease) Heart disease Hyperlipidemia Hypothyroid IBS (irritable bowel syndrome) Raynaud's disease Images from the original note were not included. OCCUPATIONAL THERAPY [facility] Initial Evaluation Name/MRN: Richie Armas ([id number]) Evaluation Date: 06/26/2025 Date of : 1950 Admission Date: 06/24/2025 9:37 AM Age: 75 y.o. Room[facility]Bed: [facility] A Discharge Recommendation: Home with assist PRN, Home with Home health OT Equipment Needed: Yes (FWW) Assessment IMPRESSION: Pt presented with AMS upon admission. PMH of HLD, chronic low back pain s/p lumbar spinal surgery, IBS with constipation, GERD, fibromyalgia, hypothyroid,CKD 2, Raynaud's, anxiety depression, and recent CABG x3 on 06/18/2025. Pt unable to recall sternal precautions, educated precautions at beginning of session. Pt is independent at baseline for ADL's and functional ambulation w/o device, currently presenting slightly below baseline. Pt is currently SBA for transfers and functional ambulation w/o device within room. Pt progressed toward supervision with FWW when ambulating around unit per pt request. Pt is currently SBA-supervision for ADL's. Recommending home with assist as needed as pt is functional and home health OT to address slight functional deficits. Pt will continue to benefit from acute OT services while admitted to increase functional independence. Admitting Diagnosis: AMS Performance Deficits /Impairments: Decreased Functional Mobility, Decreased ADL status, Decreased Strength, Decreased Endurance, Decreased Balance, and Decreased High Level IADLs Prognosis: Good Decision Making: Low Complexity Subjective Pt sitting in recliner upon OT arrival; agreeable to OT eval. Pt sitting in recliner at end of session with call light within reach and RN notified. Pain: 0-10 pain scale: 3/10 Location: L posterior shoulder Past Medical History: Medical History[1] Past Surgical History: Surgical History[2] Admission Diagnosis: Patient Active Problem List Diagnosis Date Noted Altered mental status, unspecified altered mental status type 06/24/2025 NSTEMI (non-ST elevation myocardial infarction) ([facility]) 06/14/2025 Medical Precautions: No active isolations Proper PPE donned/doffed in accordance with facility standards. Fall Risk: Sal Fall Risk Score: 35 (Medium Risk) Precautions/Restrictions: Sternal Precautions: No lifting greater than 10 lbs. Ok for modified UE precautions using Keep Your Move in the Tube technique Lines/Drains/Airways: Tele Fall Precautions Family/Caregiver Present: none Overall Cognitive Status: WFL to perform ADL's and for safety. However, pt did not recall sternal precautions. Overall Orientation Status: Oriented x4 Social/Functional History Patient admitted from home. Lives With: Spouse who has dementia. Stepchildren are currently caring for spouse, Dtr and son are flying in assist pt and spouse upon return to home. Type of Home: condo Home Layout: Single Level Home Home Access: Stairs to Enter without Rails (# of stairs: 1) Bathroom Shower/Tub: walk in shower and tub shower, no shower chair Toilet: Standard Home Equipment: none, may have walker in storage but not sure Homemaking Responsibilities: Independent Receives Help From: None Active Vp Securities: Yes Prior Level of Function Prior Level of ADL Function: Independent Prior Level of Mobility: Independent; Device: None Prior Level of Transfers: Independent Objective ADLs LE Dressing: SBA, Pt doffed and donned socks sitting in recliner, in figure four position, no difficulties noted. Upper Extremity Assessment AROM: WFL PROM: Not assessed this session Strength: WFL Limited by sternal precautions, but assessed functionally. Bed Mobility Pt up in chair upon arrival Transfers/Mobility Sit to stand: SBA Stand to sit: SBA Toilet: SBA Standing balance: SBA Functional mobility: Supervision, SBA Pt is currently SBA for transfers and functional ambulation w/o device within room. Pt progressed toward supervision with FWW when ambulating around unit per pt request. Pt noted to be more steady with FWW. Device(s) used: None and Front wheeled walker Coordination: Normal Coordination Tone: Normal Tone Sensation: Normal Sensation Vision: No Visual Deficits Tremors: No Hearing: normal AM-PAC AM-PAC Inpatient Daily Activity Raw Score: 19 ADL Inpatient CMS G-Code Modifier: CK Plan Pt would benefit from skilled acute OT services to address Strengthening, Balance Training, Self-Care/ADL Training, Functional Mobility Training, Endurance Training, Safety Education and Training, and Equipment Evaluation/Education Frequency: 3x/week for 4 weeks Barriers: Impaired balance, Lower extremity weakness, Upper extremity weakness, Decreased endurance, and New weightbearing/ROM restrictions Safety/Education Safety Safety Devices in place: call light within reach, left in chair, nurse notified, and no alarms engaged upon entry Restraints: No Education Education Given To: patient Education Provided: OT Role, Plan of Care, Precautions, Transfer Training, Equipment, Fall Prevention Education, and Discharge Recommendations Education Method: Verbal Barriers to Learning: None Education Outcome: Verbalized Understanding and Continued Education Needed Goals Patient Stated Goal: To go home. Encounter Problems Encounter Problems (Active) Balance Patient will maintain dynamic standing balance for 10+ minutes with modified independence in order to demonstrate decreased risk of falling. Start: 06/26/25 Expected End: 07/24/25 Dressings Lower Extremities Patient will dress lower body with Mod I Start: 06/26/25 Expected End: 07/24/25 Grooming Patient will complete daily grooming tasks with Mod I Start: 06/26/25 Expected End: 07/24/25 Mobility Patient will demonstrate functional ambulation with Mod I Start: 06/26/25 Expected End: 07/24/25 Safety Patient will adhere to sternal precautions during all functional mobility and ADLs in order to demonstrate improved understanding and promote healing post op. Start: 06/26/25 Expected End: 07/24/25 Transfers Patient will complete functional transfer with least restrictive device with modified independence in order to prepare for ambulation. Start: 06/26/25 Expected End: 07/24/25 Patient will perform bed mobility with modified independence in order to improve independence and prepare for out of bed mobility. Start: 06/26/25 Expected End: 07/24/25 Therapy Time Individual Co-Treatment Co-Evaluation Time In 0908 Time Out 09 Minutes 17 Mateo Us OT Patient's Occupational Therapy Plan of Care supervision is transferred to a [facility] Occupational Therapist. Goals and/or treatment plan was established in collaboration with patient/family/other representatives. [1] Past Medical History: Diagnosis Date Anxiety CKD (chronic kidney disease) stage 2, GFR 60-89 ml/min Depression Fibromyalgia GERD (gastroesophageal reflux disease) Heart disease Hyperlipidemia Hypothyroid IBS (irritable bowel syndrome) Raynaud's disease [2] Past Surgical History: Procedure Laterality Date CORONARY ARTERY BYPASS GRAFT Nutrition rescreen completed. Chart reviewed. Patient to be monitored and followed by the diet marine propulsion technician. BEENA Marcos [facility] Inpatient Consult Service Admission Date: 06/24/2025 Assessment Principal Problem: Altered mental status, unspecified altered mental status type Plan Acute Metabolic Encephalopathy --Waxing/waning, documented agitation overnight --Etiology likely related to medication effects, transitions of care, recent hospitalization/surgery, stroke, impaired sleep, ?stress/anxiety --Encourage PO intake, time up in chair, family visits, supervised ambulation, and sleep hygiene --If agitated, assess for and consider treating for pain --QTc= 459 --[place] PRN Seroquel and Haldol for ONLY if danger to self/others/treatment and not otherwise redirectable --Continue scheduled melatonin at HS- Encouraged patient to try tonight to promote sleep/wake cycle --Monitor for constipation/urinary retention - last BM unknown --Possible medication contributions: Tramadol and oxycodone with coadministration - consider eval/workup for sleep apnea -venlafaxine - given low dose and timing unlikely contribution of withdraw but consider relationship to worsening anxiety associated with acute illness/surgery and interpersonal stressors at home Depression/Anxiety -previously on venlafaxine that was stopped during her last hospitalization. Unclear indication at that time -concern for depression/anxiety especially post cardiac bypass and stroke -discussed starting duloxetine 20 mg daily for mood/pain control. Reviewed with hospitalist, patient, and son at bedside. Patient agreeable to start for mood. Caregiver stressors -primary caregiver for her with dementia -discussed connection with community resources, noted they are in [place] -consider follow up in [facility] for caregiver support, information added to discharge -Information provided to son at bedside regarding communication strategies, confabulation, nighttime behaviors. Cognitive deficits --No baseline cognitive concerns, manages care of prior to surgery --TSH elevated but FT4 WNL, recommend rechecking as outpatient, B12 pending --Head imaging - MRI brain on 06/24/25 showing Two tiny acute cortical infarcts posterior aspect LEFT sylvian fissure. Extensive chronic ischemic changes. --Recommend increased supervision of medication management and administration. Consider automatic pill dispenser --Recommend outpatient follow up at [facility] ([facility] for more in depth cognitive evaluation when in usual state of health. Discussed with patient and son. Information added to discharge paperwork. Plan discussed with RN, son, and at bedside. Follow-up: will follow with you Subjective Chief Complaint: Patient presents with Altered Mental Status Pt had open heart on 06/18, Patient c/o heart palpations, acid reflex flare and confusion for a few days. Geriatrics consulted for confusion, new stroke HPI- The patient is new to me but seen by the Geriatric Inpatient Consult team. 75 y.o. year-old female admitted to acute care from home for altered mental status. Recent hospitalization 06/18/25 for CABG x3 and discharged home 06/22/25. Evaluated by neurology with mentation change felt to be likely result from taking both tramadol and oxycodone together for sleep. MRI brain showing two tiny acute cortical infarcts posterior aspect LEFT sylvian fissure and extensive chronic ischemic changes. Recommended stopping ultram and consider ECHO. Per review of initial geriatric consult note, no baseline cognitive concerns per son. Independent at baseline and primary caregiver to her . Interval History: Remains on 3W. Documented confusion and paranoia overnight. Patient calling police and bulldozer press operator overnight multiple times. Patient hypertensive overnight. ECHO with EF 51%. Refused labetalol and melatonin overnight. Received PRN Tylenol once this morning and PRN labetalol 10 mg at 03:00. Received PRN oxycodone 5 mg twice on 06/25. Patient awake and alert up to the chair. Reports she did not sleep well as she had pain in her right neck. Reports a mild headache and an occasional cough. Patient oriented to person, place, and self. Reports feeling anxious overnight. Discussed with patient, son, and at beside regarding plan to start an alternative medication for mood. Agreeable to plan. Encouraged patient to take melatonin tonight. Reviewed with son regarding added antipsychotic as needed in management of agitation. Son agreeable to plan. Seen by PT. Supervision assist. Ambulated 50 ft. Recommending home with PRN assist. Review of Systems Constitutional: Positive for appetite change and fatigue. Negative for activity change. Respiratory: Positive for cough (occasional). Negative for shortness of breath. Cardiovascular: Negative for chest pain. Gastrointestinal: Negative for abdominal pain. Musculoskeletal: Positive for arthralgias and myalgias. Neurological: Positive for weakness and headaches. Negative for dizziness. Psychiatric/Behavioral: Positive for confusion and sleep disturbance. The patient is nervous/anxious. Objective BP 147/74 (BP Location: Right arm, Patient Position: Sitting) Pulse 76 Temp 36.8 C (98.3 F) (Temporal) Resp 18 Ht 5' 3 (1.6 m) Wt 133 lb 4.8 oz (60.5 kg) SpO2 98% BMI 23.61 kg/m Intake/Output Summary (Last 24 hours) at 06/26/2025 1516 Last data filed at 06/26/2025 0415 Gross per 24 hour Intake 340 ml Output -- Net 340 ml Wt Readings from Last 3 Encounters: 06/25/25 133 lb 4.8 oz (60.5 kg) 06/22/25 138 lb 11.2 oz (62.9 kg) Current Medications[1] Physical Exam Vitals reviewed. Constitutional: No acute distress, well-nourished, well kempt Psych: Mood and affect Appropriate. Good eye contact. Cardiovascular: Regular rate and rhythm, no murmur, no BLE edema Pulmonary/Chest: Clear to auscultation anterior only, normal respiratory effort, no coughing noted Abdominal: Soft, not distended, no tenderness to palpation, BS present, Neurological: alert, attentive, speech is clear but vague , oriented x month, year, place, and self, follows commands, no tremor Musculoskeletal: Muscle strength 5/5 RLE, 5/5 LLE. Gait: assessment deferred Skin: warm and dry, no visible rashes or wounds, ecchymosis to right neck Labs and Imaging: No results found for this or any previous visit (from the past 24 hours). Lab Results Component Value Date TSH 5.65 (H) 06/24/2025 No results found for: PAIRGNVL53 No results found for: VITD25 Reviewed: allergies, imaging, active problem lists, medications, and labs [1] Current Facility-Administered Medications: acetaminophen (Tylenol) tablet 1,000 mg, 1,000 mg, Oral, TID, HOLLI Isaac CNP, 1,000 mg at 06/26/25 1509 aspirin chewable tablet 81 mg, 81 mg, Oral, Daily, Bertha Berger MD, 81 mg at 06/26/25 0850 bisacodyl (Dulcolax) suppository 10 mg, 10 mg, Rectal, Daily PRN, Bertha Berger MD clopidogrel (Plavix) tablet 75 mg, 75 mg, Oral, Daily, Bertha Berger MD, 75 mg at 06/26/25 0850 DULoxetine (Cymbalta) DR capsule 20 mg, 20 mg, Oral, Daily, HOLLI Isaac CNP ezetimibe (Zetia) tablet 10 mg, 10 mg, Oral, Nightly, Bertha Berger MD, 10 mg at 06/25/25 2104 haloperidol lactate (Haldol) injection 0.5 mg, 0.5 mg, IntraMUSCular, q6h PRN, HOLLI Isaac CNP labetalol (Normodyne,Trandate) injection 10 mg, 10 mg, IntraVENous, q10 min PRN, Bertha Berger MD, 10 mg at 06/26/25 0300 labetalol (Normodyne,Trandate) injection 10 mg, 10 mg, IntraVENous, Once, Ross G OLGA Perez levothyroxine (Synthroid, Levoxyl) tablet 50 mcg, 50 mcg, Oral, qAM AC, Bertha Berger MD, 50 mcg at 06/26/25 0654 Lidocaine 4 % patch 1 patch, 1 patch, TransDERmal, Daily, Fiona France DO, 1 patch at 06/26/25 1055 melatonin tablet 3 mg, 3 mg, Oral, Nightly, Hernesto Perez NP metoprolol succinate XL (Toprol-XL) 24 hr tablet 50 mg, 50 mg, Oral, Daily, Fiona France DO, 50 mg at 06/26/25 1055 naloxone (Narcan) injection 0.4 mg, 0.4 mg, IntraVENous, q5 min PRN, Bertha Berger MD NIFEdipine XL (Procardia XL) 24 hr tablet 30 mg, 30 mg, Oral, Daily, Fiona France DO, 30 mg at 06/26/25 1217 ondansetron ODT (Zofran-ODT) disintegrating tablet 4 mg, 4 mg, Oral, q8h PRN OR ondansetron (Zofran) injection 4 mg, 4 mg, IntraVENous, q6h PRN, Bertha Berger MD oxyCODONE (Roxicodone) immediate release tablet 2.5 mg, 2.5 mg, Oral, q6h PRN OR oxyCODONE (Roxicodone) immediate release tablet 5 mg, 5 mg, Oral, q6h PRN, Teresita Chris APRN - EXHIBIT BUILDER polyethylene glycol (PEG) 3350 (Miralax) packet 17 g, 17 g, Oral, Daily PRN, Bertha Berger MD, 17 g at 06/26/25 0850 QUEtiapine (SEROquel) tablet 12.5 mg, 12.5 mg, Oral, BID PRN, Teresita Chris APRN - PRABHJOT rosuvastatin (Crestor) tablet 40 mg, 40 mg, Oral, Daily, Bertha Berger MD, 40 mg at 06/25/25 2104 senna-docusate sodium (Senokot-S) 8.6-50 MG tablet 2 tablet, 2 tablet, Oral, Daily PRN, Hernesto Perez NP sodium chloride 0.9 % infusion, 50 mL/hr, IntraVENous, Continuous, Bertha Berger MD, Last Rate: 50 mL/hr at 06/25/25406, 50 mL/hr at 06/25/25406 Hospitalist Progress Note 06/25/2025 Subjective: Admit Date: 06/24/2025 PCP: PRAVEEN CRUM Room#: [id number] A BRIEF HOSPITAL COURSE: Richie is a 75 y.o. female with PMH of HLD, chronic low back pain s/p lumbar spinal surgery, IBS with constipation, GERD, fibromyalgia, hypothyroid,CKD 2, Raynaud's, anxiety depression, and recent CABG x3 on 06/18/2025 who presents with concerns of altered mental status, noted to have been more confused over the last few days and forgetful. Has been complaining of intermittent cramping after being started on therapy for her CABG. Pt later reported that she took oxycodone and tramadol together thinking it would help her sleep and this was on Tuesday night prior to her confusion episode. ED findings: Afebrile, vital signs relatively stable,Labs largely unremarkable other than lactic acidosis 2.8. Concern for stroke was brought up and patient had a CTA head and neck in the ER as well as a CT head without contrast which did not show any acute intracranial process or LVO. No high-grade stenosis either.ED requesting medical admission for continued stroke workup. MRI completed and showed two tiny acute cortical infarcts posterior aspect LEFT sylvian fissure. Extensive chronic ischemic changes. Neurology and geriatrics consulted. Pt/Ot recommended home, but pt continues to be very confused and her with advanced dementia and would likely not be safe to discharge home at this time Interval History: 06/25: Pt seen and examined. No complaints but very worried about her at home. Per son, Salvador, pt is still very confused and this is not her baseline. States she is normally very functional and oriented and able to care for her who has advanced dementia. States this AM, she didn't recognize him. Geriatrics consulted to aid with memory deficits Adult diet Regular; Low Fat/Low Chol/High Fiber/SYMONE 24HR INTAKE/OUTPUT: Intake/Output Summary (Last 24 hours) at 06/25/2025 1451 Last data filed at 06/25/2025 0545 Gross per 24 hour Intake 1169.17 ml Output -- Net 1169.17 ml Past Medical History: Medical History[1] LABS: CBC: Recent Labs 06/24/25 1013 06/25/25 0538 WBC 7.8 6.5 RBC 3.31* 3.62* HGB 10.1* 10.9* HCT 31.5* 34.3* MCV 95.2 94.8 RDW 14.9 14.8 PLT 305 372 BMP: Recent Labs 06/24/25 1013 06/25/25 0538 NA 135* 140 K 3.8 3.6 CL 99 106 CO2 22* 20* BUN 20 11 CREATININE 0.77 0.68 GLUCOSE 110 104 CALCIUM 9.8 9.0 ANIONGAP 14* 14* LIVER PROFILE: Recent Labs 06/24/25 1013 06/25/25 0538 AST 39* 40* ALT 11 11 BILITOT 0.7 0.7 ALKPHOS 80 75 PROT 7.4 6.9 PT/INR: No results for input(s): PROTIME, INR in the last 72 hours. CARDIAC ENZYMES: No results for input(s): TROPONINI in the last 72 hours. Procalcitonin: No results found for: PROCAL COVID-19 PCR: No results for input(s): COVID19 in the last 72 hours. Objective: Vitals: BP (!) 179/79 Pulse 82 Temp 36.1 C (96.9 F) (Temporal) Resp 18 Ht 5' 3 (1.6 m) Wt 138 lb (62.6 kg) SpO2 94% BMI 24.45 kg/m Pulse Ox: SpO2 Av.7 % Min: 91 % Max: 98 % Supplemental O2: GENERAL: Lying in bed comfortably, awake and alert HEENT: normocephalic, non-traumatic, MMM NECK: supple, trachea midline HEART: RRR, normal S1 and S2 LUNGS: non labored, no wheeze ABD: soft, non-distended MSK: no edema noted SKIN: warm, dry NEURO: no focal deficits PSYCH: anxious affect Medications: Scheduled PRN Scheduled Meds[2] PRN Meds[3] Continuous Continuous Meds[4] Assessment Data: Acute, acute on chronic, unstable/uncontrolled chronic problems/diagnoses: Toxic and metabolic encephalopathy - likely multifactorial due to polypharmacy, acute L cortical CVA, likely underlying undiagnosed dementia Elevated troponin, flat trend, in the setting of recent CABG Lactic acidosis DM2 with hyperglycemia Anxiety Cognitive decline Stable chronic problems affecting care, new non-acute diagnoses: Medical History[5] Plan As a result of the above findings & factors, the following mgmt was pursued: - cont meds as ordered - neurology - cont DAPT, statin. Though acute CVA on imaging, her symptoms are not consistent with this as the etiology and likely more so due to polypharmacy of taking tramadol and oxycodone together - geriatrics consulted given AMS, likely underlying undiagnosed dementia, family dynamics at home caring for her , anxiety - am labs, replace lytes prn - PT/OT/CM/SW - delirium precautions: increase activity and limit nighttime disturbances - DVT prophylaxis: encourage ambulation Advance Directive: Full Code Anticipated Discharge - Date - 1-2 days - Location - home if mentation improves, SNF if not - Pending the following - mentation, geriatrics recs Total time spent (which include face to face and non face to face encounters) : 50 minutes Extended Emergency Contact Information Primary Emergency Contact: Sean Armas Mobile Relation: Spouse Secondary Emergency Contact: All Armas Mobile Relation: Daughter Preferred language: Omani Revenue Research Analyst needed? Anastasiya France DO Division of Hospitalist Medicine [facility] care [facility] [1] Past Medical History: Diagnosis Date Anxiety CKD (chronic kidney disease) stage 2, GFR 60-89 ml/min Depression Fibromyalgia GERD (gastroesophageal reflux disease) Heart disease Hyperlipidemia Hypothyroid IBS (irritable bowel syndrome) Raynaud's disease [2] aspirin, 81 mg, Oral, Daily clopidogrel, 75 mg, Oral, Daily ezetimibe, 10 mg, Oral, Nightly levothyroxine, 50 mcg, Oral, qAM AC melatonin, 3 mg, Oral, Nightly [Held by provider] metoprolol succinate XL, 50 mg, Oral, Daily [Held by provider] NIFEdipine XL, 30 mg, Oral, Daily rosuvastatin, 40 mg, Oral, Daily [3] PRN medications: acetaminophen OR acetaminophen, bisacodyl, labetalol, naloxone, ondansetron ODT OR ondansetron, oxyCODONE, polyethylene glycol (PEG) 3350 [4] sodium chloride, 50 mL/hr, Last Rate: 50 mL/hr (06/25/25 0407) [5] Past Medical History: Diagnosis Date Anxiety CKD (chronic kidney disease) stage 2, GFR 60-89 ml/min Depression Fibromyalgia GERD (gastroesophageal reflux disease) Heart disease Hyperlipidemia Hypothyroid IBS (irritable bowel syndrome) Raynaud's disease Tobacco cessation consult order via Dr. Bertha Berger. Patient denies ever using nicotine/tobacco/vape. Cessation counseling not indicated. Images from the original note were not included. PHYSICAL THERAPY [facility] Initial Evaluation Name/MRN: Richie Armas ([id number]) Evaluation Date: 06/25/2025 Date of : 1950 Admission Date: 06/24/2025 9:37 AM Age: 75 y.o. Room[facility]Bed: [facility] A Discharge Recommendation: Home with assist PRN Equipment Needed: No Assessment IMPRESSION: Pt s/p CABG x 3 06/18/25, home x 48hrs before being re-admitted with stroke-like symptoms. Pt indep with bed mob (HOB elevated), transfers & modif indep with use of FWW. Pt remains compliant with sternal precautions, issued new P&C booklet for continued compliance with exercises. Rec home with assist at disch. Admitting Diagnosis: altered mental status Prognosis: good Performance Deficits /Impairments: N/A Decision Making: Low Complexity Subjective Pt awake in bed, son present. Pt agreeable to PT. Pain: Pt denies any current pain. Past Medical History: Medical History[1] Past Surgical History: Surgical History[2] Admission Diagnosis: Patient Active Problem List Diagnosis Date Noted Altered mental status, unspecified altered mental status type 06/24/2025 NSTEMI (non-ST elevation myocardial infarction) (HCC) 06/14/2025 Medical Precautions: No active isolations Proper PPE donned/doffed in accordance with facility standards. Fall Risk: Sal Fall Risk Score: 70 (High Risk) Precautions/Restrictions: Sternal Precautions: No lifting greater than 10 lbs. Ok for modified UE precautions using Keep Your Move in the Tube technique Family/Caregiver Present: child(cyn) Overall Cognitive Status: WFL Overall Orientation Status: Oriented x4 Vision: Not Assessed Hearing: normal Social/Functional History Pt lives at home w/ spouse (Alzheimer's dementia): 1 story condo with 1 step entry. Son and daughter in town to help at home. Prior Level of Function Prior Level of ADL Function: Independent Prior Level of Mobility: Independent; Device: Front wheeled walker Prior Level of Transfers: Independent Objective Lower Extremity Assessment AROM: WFL PROM: WFL Strength: Exceptions: functionally 4/5 BLE Sensation: Not assessed this session Balance: WFL Bed Mobility: Supine to sit: Modified Independent HOB Elevated Transfers Sit to stand: Modified Independent Stand to sit: Modified Independent Ambulation Ambulation 1 Assistive device(s) used: Front wheeled walker Assist level: Supervision Distance (ft): 50 Quality of gait: slow fouzia Ambulation 2 Assistive device(s) used: Front wheeled walker Assist level: Modified Independent Distance (ft): 250+ Quality of gait: No gait deviations Exercises Comments: Pt reports being compliant with P&C exer at home but cannot recall the exercises and has not performed since being admitted to hospital. This therapist issues new booklet at patient request for continued compliance with P&C exercises. Outcome Measures AM-PAC How much HELP from another person do you currently need Turning from your back to your side while in a flat bed without using bedrails?: None Moving from lying on your back to sitting on the side of a flat bed without using bedrails?: None Moving to and from a bed to a chair (including a wheelchair)?: None Standing up from a chair using your arms (wheelchair or bedside chair)?: None Walking in a hospital room?: None Stair climbing assessed?: No AM-PAC Inpatient Mobility Raw Score (No Stairs) : 20 JH-HLM JH-HLM Score: Walked 250 ft or more (i.e. several laps on unit) Plan No skilled acute PT indicated at this time. Please reconsult should changes occur. Safety/Education Safety Safety Devices in place: All fall risk precautions in place, call light within reach, gait belt, no alarms engaged upon entry, patient left sitting EOB, and neuro team present in room at end of session Restraints: N/A Education Education Given To: patient Education Provided: PT Role and Home Exercise Program Education Method: Verbal Barriers to Learning: Education Outcome: Goals Patient Stated Goal: to go home Therapy Time Individual Co-Treatment Co-Evaluation Time In 930 Time Out 0958 Minutes 27 Timed Code Treatment Minutes: 8 Minutes Tiffanie Comer PT Patient's Physical Therapy Plan of Care supervision is transferred to a [facility] Physical Therapist. Goals and/or treatment plan was established in collaboration with patient/family/other representatives. [1] Past Medical History: Diagnosis Date Anxiety CKD (chronic kidney disease) stage 2, GFR 60-89 ml/min Depression Fibromyalgia GERD (gastroesophageal reflux disease) Heart disease Hyperlipidemia Hypothyroid IBS (irritable bowel syndrome) Raynaud's disease [2] Past Surgical History: Procedure Laterality Date CORONARY ARTERY BYPASS GRAFT Called and updated son Salvador, who is with patient. Just arriving to three W., updated on MRI results and neurology consult. Speech-Language Pathology Patient passed the Nursing Swallowing Screening. As per stroke policy, no formal dysphagia evaluation is required. Completed speech orders. Tamiko Rodgers M.A., CCC-AUTOMOBILE BRAKE BONDER documented in this encounter [facility] 06-27-2025 Progress note Formatting of t his note might be different from the original. can worker got permission from patient to call her son. Son is concerned about his mother being his father's primary caregiver. can worker made referral to Koki with [facility] via email. SW also made a referral to [facility] via their website. Plan is to meet with son later today to discussion about plans and discharge. SW will continue to follow as needed. [facility] 06-26-2025 Note Start PACC Note Home Health Referral Educated patient on Home Care and services available. Patient offered choice of available HHC and agreeable to SN/PT services with [facility]. Care Types: None Isolation Precautions: No active isolations Social Determinates of Health: Tobacco Use: Low Risk (06/25/2025) Patient History Smoking Tobacco Use: Never Smokeless Tobacco Use: Never Passive Exposure: Not on file Social History Substance and Sexual Activity Alcohol Use None Social History Substance and Sexual Activity Drug Use Not on file Does the patient have any financial resource strain? No Does the patient have any food insecurities? No Does the patient have any housing instabilities? No If any of the above is noted as yes - consider a GRAVITY PROSPECTING OPERATOR evaluation once the patient returns home. START PATIENT REGISTRATION INFORMATION Order Information Order Signing Physician: Fiona France, DO Service Ordered RN ?: Yes Service Ordered PT ?: Yes Service Ordered OT ?: No Service Ordered ST ?: No Service Ordered GRAVITY PROSPECTING OPERATOR?:No Service Ordered DIMENSION SPECIFICATION INSPECTOR?: No Following Physician: Shaunna Johnston MD Following Physician Overseeing Physician: Shaunna Johnston MD (Required for Residents only) Agreeable to Follow? Yes Date/Time of Call 06/26/25 3:49 PM, Spoke with: cts protocol/carlos protocol Care Coordination Same Day SOC?: No Primary Care Physician: PRAVEEN CRUM Primary Care Physician Primary Care Physician Address: [address] [place] [address] / [facility] [id number] Visit Instructions: N/A Service Discharge Location Type: Home with Home Care Service Facility Name: N/A Service Floor Facility: N/A Service Room No: N/A Demographics Patient Last Name: Pawel Patient First Name: Richie Language/Communication Barrier: no Service Address: [address] [place] [address] Service City: [place] Service ST: [place] Service ZIP: [address] Service (home) Other phone numbers: Telephone Information: Emergency Contact: Extended Emergency Contact Information Primary Emergency Contact: Sean Armas Mobile Relation: Spouse Secondary Emergency Contact: All Armas Mobile Relation: Daughter Preferred language: Omani Revenue Research Analyst needed? No Admission Information Admit Date: 06/24/2025 Patient status at discharge: Inpatient Admitting Diagnosis: Altered mental status, unspecified altered mental status type [R41.82] Caregiver Information Caregiver First Name: na Caregiver Last Name: na Caregiver Relationship to Patient na Caregiver Phone Number: na Caregiver Notes: N/A Dealer[employer]-ProPlan List No END PATIENT REGISTRATION INFORMATION Pt Home Health goal go home COVID Status 1. Do you have any upper respiratory symptoms (cough, SOB, Fever)? No 2. Have you been exposed to anyone with COVID-19 Virus? No Answer only if pending or positive for COVID-19? 1. Agreeable to wear PPE at each visit? No 2. Is the hospital supplying them with PPE upon Discharge? No Start PACC Summary General Report/ Additional Comments CARLOS. Return home with SN/PT services. Acute, acute on chronic, unstable/uncontrolled chronic problems/diagnoses: Toxic and metabolic encephalopathy - likely multifactorial due to polypharmacy, hospital delirium/sundowning, likely underlying undiagnosed dementia acute L cortical CVA Elevated troponin, flat trend, in the setting of recent CABG Lactic acidosis DM2 with hyperglycemia Anxiety Cognitive decline Wound care/dressing changes: -Surgical incisions leave open to air, cleanse daily with mild soap & warm water, pat dry, no lotion or powders on incision. -Surgical tape/dsg removal 10 days from surgery date Respiratory Care: -Cough and Deep Breath; Use incentive spirometry 10 times every hour while awake for 2 weeks. Additional Orders: -Sternal precautions (no lifting, pushing, pulling >10 lbs) for 6 weeks-use heart pillow -Vitals per home health protocol-call for fever and chills -Daily weights- call for weight gain: 2-3lbs in one day; 5lbs in 3 days. -Wear TEDs during day and off at night. Lab Work: -If Diabetic: blood glucose testing as directed by PCP/Plodder Operator -For recent heart surgery if patient discharged on Coumadin verify need for INR draw on visit. Activity/Weight Bearing: -Up with assistance: up in chair for all meals, ambulate 3-4 times a day -Stretching exercises per PT discharge instructions Discharge Date: pending Referral Source-PACC: (Hospital/Unit): [facility] / [id number]/[id number] A End PACC Note Formerly [facility] 06-26-2025 Patient's home Note Formattin g of this note is different from the original. Start PACC Note Home Health Referral Educated patient on Home Care and services available. Patient offered choice of available HHC and agreeable to SN/PT services with [facility] - Home Care. Care Types: None Isolation Precautions: No active isolations Social Determinates of Health: Tobacco Use: Low Risk (06/25/2025) Patient History Smoking Tobacco Use: Never Smokeless Tobacco Use: Never Passive Exposure: Not on file Social History Substance and Sexual Activity Alcohol Use None Social History Substance and Sexual Activity Drug Use Not on file Does the patient have any financial resource strain? No Does the patient have any food insecurities? No Does the patient have any housing instabilities? No If any of the above is noted as yes - consider a GRAVITY PROSPECTING OPERATOR evaluation once the patient returns home. START PATIENT REGISTRATION INFORMATION Order Information Order Signing Physician: Fiona France, DO Service Ordered RN ?: Yes Service Ordered PT ?: Yes Service Ordered OT ?: No Service Ordered ST ?: No Service Ordered GRAVITY PROSPECTING OPERATOR?:No Service Ordered DIMENSION SPECIFICATION INSPECTOR?: No Following Physician: Shaunna Johnston MD Following Physician Overseeing Physician: Shaunna Johnston MD (Required for Residents only) Agreeable to Follow? Yes Date/Time of Call 06/26/25 3:49 PM, Spoke with: cts protocol/carlos protocol Care Coordination Same Day SOC?: No Primary Care Physician: PRAVEEN CRUM Primary Care Physician Primary Care Physician Address: [address] [place] [address] / [facility] [id number] Visit Instructions: N/A Service Discharge Location Type: Home with Home Care Service Facility Name: N/A Service Floor Facility: N/A Service Room No: N/A Demographics Patient Last Name: Pawel Patient First Name: Richie Language/Communication Barrier: no Service Address: [address] [place] [address] Service City: [place] Service ST: [place] Service ZIP: [address] Service (home) Other phone numbers: Telephone Information: Emergency Contact: Extended Emergency Contact Information Primary Emergency Contact: Sean Armas Mobile Relation: Spouse Secondary Emergency Contact: All Armas Mobile Relation: Daughter Preferred language: Omani Revenue Research Analyst needed? No Admission Information Admit Date: 06/24/2025 Patient status at discharge: Inpatient Admitting Diagnosis: Altered mental status, unspecified altered mental status type [R41.82] Caregiver Information Caregiver First Name: na Caregiver Last Name: na Caregiver Relationship to Patient na Caregiver Phone Number: na Caregiver Notes: N/A [employer] List No END PATIENT REGISTRATION INFORMATION Pt Home Health goal go home COVID Status 1. Do you have any upper respiratory symptoms (cough, SOB, Fever)? No 2. Have you been exposed to anyone with COVID-19 Virus? No Answer only if pending or positive for COVID-19? 1. Agreeable to wear PPE at each visit? No 2. Is the hospital supplying them with PPE upon Discharge? No Start PACC Summary General Report/ Additional Comments CARLOS. Return home with SN/PT services. Acute, acute on chronic, unstable/uncontrolled chronic problems/diagnoses: Toxic and metabolic encephalopathy - likely multifactorial due to polypharmacy, hospital delirium/sundowning, likely underlying undiagnosed dementia acute L cortical CVA Elevated troponin, flat trend, in the setting of recent CABG Lactic acidosis DM2 with hyperglycemia Anxiety Cognitive decline Wound care/dressing changes: -Surgical incisions leave open to air, cleanse daily with mild soap & warm water, pat dry, no lotion or powders on incision. -Surgical tape/dsg removal 10 days from surgery date Respiratory Care: -Cough and Deep Breath; Use incentive spirometry 10 times every hour while awake for 2 weeks. Additional Orders: -Sternal precautions (no lifting, pushing, pulling >10 lbs) for 6 weeks-use heart pillow -Vitals per home health protocol-call for fever and chills -Daily weights- call for weight gain: 2-3lbs in one day; 5lbs in 3 days. -Wear TEDs during day and off at night. Lab Work: -If Diabetic: blood glucose testing as directed by PCP/Plodder Operator -For recent heart surgery if patient discharged on Coumadin verify need for INR draw on visit. Activity/Weight Bearing: -Up with assistance: up in chair for all meals, ambulate 3-4 times a day -Stretching exercises per PT discharge instructions Discharge Date: pending Referral Source-PACC: (Hospital/Unit): [facility] / W3/W3 A End PACC Note [facility] 06-26-2025 Note PROGRESS NOTE: SONU Santana SERVICE Patient Name:Richie Armas Patient : 1950 Chief complaint: confusion Hospital Summary: 75 y.o. with a PMH of CABG on 06/18, HLD, fibromyalgia, CKD, Raynaud's, anxiety who presented to [facility] on 06/24/25 with a chief complaint of confusion. In ED NIH was 1 for sensory deficits. Pt notes that while in the hospital for CABG she laid on right side and noted flashing lights in her visual field and she has been worried on this since. When she went home she overdid it taking care of her demented and visiting with family. She became nervous she was not sleeping enough, so she took oxycodone and tramadol Tuesday night and woke on Tuesday confused, more likely unable to think clearly and carry her thoughts through to completion. CT of the brain is negative, CTA was normal as well. Son relates she has become very perseverative on many issues over the last two days. Yesterday she believed she had meningitis, today she is very worried about her carotids. Interval History: overnight pt had difficulty with behavior including extreme paranoia. Improved this morning. SBPs 153 - 188, Hrs 78 - 95, afebrile. Medications: Scheduled Meds[1] PRN Meds[2] Allergies: Flexeril [cyclobenzaprine] and Phenergan [promethazine] Review of Systems Constitutional: Negative for fatigue and fever. HENT: Negative for hearing loss, tinnitus, trouble swallowing and voice change. Eyes: Negative for photophobia and visual disturbance. Respiratory: Negative for cough and shortness of breath. Cardiovascular: Negative for chest pain, palpitations and leg swelling. Gastrointestinal: Negative for nausea and vomiting. Endocrine: Negative. Genitourinary: Negative for difficulty urinating. Musculoskeletal: Negative for gait problem. Neurological: Negative for dizziness, tremors, seizures, syncope, facial asymmetry, speech difficulty, weakness, light-headedness, numbness and headaches. Hematological: Negative. Psychiatric/Behavioral: Positive for confusion. Negative for agitation. The patient is nervous/anxious and is hyperactive. Physical Examination: Patient Vitals for the past 8 hrs: BP Temp Temp src Pulse Resp SpO2 06/26/25 1359 147/74 36.8 ?C (98.3 ?F) Temporal 76 18 98 % 06/26/25 1200 -- -- -- 75 -- -- 06/26/25 1012 148/78 36.8 ?C (98.3 ?F) Temporal 80 22 97 % I/O last 3 completed shifts: In: 1509.2 (25 mL/kg) [P.O.:840; I.V.:669.2 (11.1 mL/kg)] Out: - (0 mL/kg) Weight: 60.5 kg General Physical Examination: General: awake, alert, pleasant, anxious, conversive HEENT: Normocephalic, atraumatic CV: S1+S2, RRR, no murmurs. Pulm: CTA, intubated, ventilated Abdomen: Soft NT/ND. BS + Skin: warm, dry Extremities: normal with no edema or cyanosis Orthopedic limitation: N/A Pulses: Intact peripherally Carotid auscultation: No bruits Neurological Examination: Higher Functions: Mental Status Exam: Level of Alertness: Awake Orientation: Normal to self, time, place but does get confused when trying to relate events of past days Memory: Normal Fund of Knowledge: Normal Language: Normal Dysarthria: not present Cranial Nerves: II Visual acuity: not tested II Visual bergman: normal III Pupils (~ 3 mm right, 3 mm left) equal, round, reactive to light IIIPtosis not present III-IV- Extraocular Movements: intact Nystagmus: not present Saccades and pursuits: normal V Facial sensation: intact Corneal's: Intact bilateral VII Facial strength: intact VIII Hearing: intact IX-X Gag reflex: present Cough reflex: present X Palate: intact XI Shoulder shrug: normal} XII Tongue movement: normal Motor Examination: Tone after evaluation of 4 limbs, the following findings applied: Normal Bulk: normal Muscle Strength after evaluation of all limbs and axial musculature the following findings applied: Drift: absent Reflexes: after evaluation of 4 limbs, the following findings applied: normal all limbs Plantar response: Flexor Bilaterally Sensory Examination: grossly intact to light touch Coordination Examination: Arms: Normal finger to nose Legs: Intact heel knee dan testing Tremors: not present Gait: not observed NIH Stroke Score 1a Level of consciousness: 0=alert; keenly responsive 1b. LOC questions: 0=Performs both tasks correctly 1c. LOC commands: 0=Performs both tasks correctly 2. Best Gaze: 0=normal 3. Visual: 0=No visual loss 4. Facial Palsy: 0=Normal symmetric movement 5a. Motor left arm: 0=No drift, limb holds 90 (or 45) degrees for full 10 seconds 5b. Motor right arm: 0=No drift, limb holds 90 (or 45) degrees for full 10 seconds 6a. motor left le=No drift, limb holds 90 (or 45) degrees for full 10 seconds 6b Motor right le=No drift, limb holds 90 (or 45) degrees for full 10 seconds 7. Limb Ataxia: 0=Absent 8. Sensory: 0=Normal; no sensory loss 9. Best Language: 0=No aphasia, nor (more content not included)... [facility] 06-26-2025 Nurse Note Co sign Khushi Shay RN [facility] 06-26-2025 Note Hospitalist Progress Note 06/26/2025 Subjective: Admit Date: 06/24/2025 PCP: PRAVEEN CRUM Room#: [id number] A BRIEF HOSPITAL COURSE: Richie is a 75 y.o. female with PMH of HLD, chronic low back pain s/p lumbar spinal surgery, IBS with constipation, GERD, fibromyalgia, hypothyroid,CKD 2, Raynaud's, anxiety depression, and recent CABG x3 on 06/18/2025 who presents with concerns of altered mental status, noted to have been more confused over the last few days and forgetful. Has been complaining of intermittent cramping after being started on therapy for her CABG. Pt later reported that she took oxycodone and tramadol together thinking it would help her sleep and this was on Tuesday night prior to her confusion episode. ED findings: Afebrile, vital signs relatively stable,Labs largely unremarkable other than lactic acidosis 2.8. Concern for stroke was brought up and patient had a CTA head and neck in the ER as well as a CT head without contrast which did not show any acute intracranial process or LVO. No high-grade stenosis either.ED requesting medical admission for continued stroke workup. MRI completed and showed two tiny acute cortical infarcts posterior aspect LEFT sylvian fissure. Extensive chronic ischemic changes. Neurology and geriatrics consulted. Neurology did not believe tiny infarcts to be related to pt's symptoms and believed more likely polypharmacy and delirium. Pt/Ot recommended home, but pt continues to be very confused and her with advanced dementia. Geriatrics added on prn agitation meds and started anxiety medication. Plan will be home once mentation/sundowning improves Interval History: 06/26: Pt seen and examined. Per notes, had another episode of sundowning/agitation overnight calling the bulldozer press operator multiple times asking for the police (see notes). Pt much more alert and oriented today, though extreme flight of thought. Son believes she is better today, but expressed concern over her continued episodes at night as neither he, nor his sister, can assist 24 hours. Spoke to geriatrics who is starting prn agitation meds as well as anxiety medication today. Pt eager to get home Adult diet Regular; Low Fat/Low Chol/High Fiber/SYMONE 24HR INTAKE/OUTPUT: Intake/Output Summary (Last 24 hours) at 06/26/2025 1407 Last data filed at 06/26/2025 0415 Gross per 24 hour Intake 340 ml Output -- Net 340 ml Past Medical History: Medical History[1] LABS: CBC: Recent Labs 06/24/25 1013 06/25/25 0538 WBC 7.8 6.5 RBC 3.31* 3.62* HGB 10.1* 10.9* HCT 31.5* 34.3* MCV 95.2 94.8 RDW 14.9 14.8 PLT 305 372 BMP: Recent Labs 06/24/25 1013 06/25/25 0538 NA 135* 140 K 3.8 3.6 CL 99 106 CO2 22* 20* BUN 20 11 CREATININE 0.77 0.68 GLUCOSE 110 104 CALCIUM 9.8 9.0 ANIONGAP 14* 14* LIVER PROFILE: Recent Labs 06/24/25 1013 06/25/25 0538 AST 39* 40* ALT 11 11 BILITOT 0.7 0.7 ALKPHOS 80 75 PROT 7.4 6.9 PT/INR: No results for input(s): PROTIME, INR in the last 72 hours. CARDIAC ENZYMES: No results for input(s): TROPONINI in the last 72 hours. Procalcitonin: No results found for: PROCAL COVID-19 PCR: No results for input(s): COVID19 in the last 72 hours. Objective: Vitals: BP 147/74 (BP Location: Right arm, Patient Position: Sitting) Pulse 76 Temp 36.8 ?C (98.3 ?F) (Temporal) Resp 18 Ht 5' 3 (1.6 m) Wt 133 lb 4.8 oz (60.5 kg) SpO2 98% BMI 23.61 kg/m? Pulse Ox: SpO2 Av.4 % Min: 89 % Max: 98 % Supplemental O2: GENERAL: sitting in chair comfortably, awake and alert HEENT: normocephalic, non-traumatic, MMM NECK: supple, trachea midline HEART: RRR, normal S1 and S2 LUNGS: non labored, no wheeze ABD: soft, non-distended MSK: no edema noted SKIN: warm, dry NEURO: no focal deficits PSYCH: flight of thought Medications: Scheduled PRN Scheduled Meds[2] PRN Meds[3] Continuous Continuous Meds[4] Assessment Data: Acute, acute on chronic, unstable/uncontrolled chronic problems/diagnoses: Toxic and metabolic encephalopathy - likely multifactorial due to polypharmacy, hospital delirium/sundowning, likely underlying undiagnosed dementia acute L cortical CVA Elevated troponin, flat trend, in the setting of recent CABG Lactic acidosis DM2 with hyperglycemia Anxiety Cognitive decline Stable chronic problems affecting care, new non-acute diagnoses: Medical History[5] Plan As a result of the above findings & factors, the following mgmt was pursued: - cont meds as ordered - neurology - cont DAPT, statin. Though acute CVA on imaging, her symptoms are not consistent with this as the etiology and likely more so due to polypharmacy of taking tramadol and oxycodone together along with episodes of delirium - geriatrics consulted given AMS, likely underlying undiagnosed dementia, family dynamics at home caring for her , anxiety - am labs, replace lytes prn - PT/OT/CM/SW - deliriu (more content not included)... [facility] 06-26-2025 Note OCCUPATIONAL THERAPY [facility] Initial Evaluation Name/MRN: Richie Armas ([id number]) Evaluation Date: 06/26/2025 Date of : 1950 Admission Date: 06/24/2025 9:37 AM Age: 75 y.o. Room/Bed: [facility] A Discharge Recommendation: Home with assist PRN, Home with Home health OT Equipment Needed: Yes (FWW) Assessment IMPRESSION: Pt presented with AMS upon admission. PMH of HLD, chronic low back pain s/p lumbar spinal surgery, IBS with constipation, GERD, fibromyalgia, hypothyroid,CKD 2, Raynaud's, anxiety depression, and recent CABG x3 on 06/18/2025. Pt unable to recall sternal precautions, educated precautions at beginning of session. Pt is independent at baseline for ADL's and functional ambulation w/o device, currently presenting slightly below baseline. Pt is currently SBA for transfers and functional ambulation w/o device within room. Pt progressed toward supervision with FWW when ambulating around unit per pt request. Pt is currently SBA-supervision for ADL's. Recommending home with assist as needed as pt is functional and home health OT to address slight functional deficits. Pt will continue to benefit from acute OT services while admitted to increase functional independence. Admitting Diagnosis: AMS Performance Deficits /Impairments: Decreased Functional Mobility, Decreased ADL status, Decreased Strength, Decreased Endurance, Decreased Balance, and Decreased High Level IADLs Prognosis: Good Decision Making: Low Complexity Subjective Pt sitting in recliner upon OT arrival; agreeable to OT eval. Pt sitting in recliner at end of session with call light within reach and RN notified. Pain: 0-10 pain scale: 3/10 Location: L posterior shoulder Past Medical History: Medical History[1] Past Surgical History: Surgical History[2] Admission Diagnosis: Patient Active Problem List Diagnosis Date Noted Altered mental status, unspecified altered mental status type 06/24/2025 NSTEMI (non-ST elevation myocardial infarction) ([facility]) 06/14/2025 Medical Precautions: No active isolations Proper PPE donned/doffed in accordance with facility standards. Fall Risk: Sal Fall Risk Score: 35 (Medium Risk) Precautions/Restrictions: Sternal Precautions: No lifting greater than 10 lbs. Ok for modified UE precautions using Keep Your Move in the Tube technique Lines/Drains/Airways: Tele Fall Precautions Family/Caregiver Present: none Overall Cognitive Status: WFL to perform ADL's and for safety. However, pt did not recall sternal precautions. Overall Orientation Status: Oriented x4 Social/Functional History Patient admitted from home. Lives With: Spouse who has dementia. Stepchildren are currently caring for spouse, Dtr and son are flying in assist pt and spouse upon return to home. Type of [facility]: [facility] Home Layout: Single Level Home Home Access: Stairs to Enter without Rails (# of stairs: 1) Bathroom Shower/Tub: walk in shower and tub shower, no shower chair Toilet: Standard Home Equipment: none, may have walker in storage but not sure Homemaking Responsibilities: Independent Receives Help From: None Active Vp Securities: Yes Prior Level of Function Prior Level of ADL Function: Independent Prior Level of Mobility: Independent; Device: None Prior Level of Transfers: Independent Objective ADLs LE Dressing: SBA, Pt doffed and donned socks sitting in recliner, in figure four position, no difficulties noted. Upper Extremity Assessment AROM: WFL PROM: Not assessed this session Strength: WFL Limited by sternal precautions, but assessed functionally. Bed Mobility Pt up in chair upon arrival Transfers/Mobility Sit to stand: SBA Stand to sit: SBA Toilet: SBA Standing balance: SBA Functional mobility: Supervision, SBA Pt is currently SBA for transfers and functional ambulation w/o device within room. Pt progressed toward supervision with FWW when ambulating around unit per pt request. Pt noted to be more steady with FWW. Device(s) used: None and Front wheeled walker Coordination: Normal Coordination Tone: Normal Tone Sensation: Normal Sensation Vision: No Visual Deficits Tremors: No Hearing: normal AM-PAC AM-PAC Inpatient Daily Activity Raw Score: 19 ADL Inpatient CMS G-Code Modifier: CK Plan Pt would benefit from skilled acute OT services to address Strengthening, Balance Training, Self-Care/ADL Training, Functional Mobility Training, Endurance Training, Safety Education and Training, and Equipment Evaluation/Education Frequency: 3x/week for 4 weeks Barriers: Impaired balance, Lower extremity weakness, Upper extremity weakness, Decreased endurance, and New weightbearing/ROM restrictions Safety/Education Safety Safety Devices in place: call light within reach, left in chair, nurse notified, and no alarms engaged upon entry Restraints: No Education Education Given To: patient Education Provided: OT Role, Plan of Care, Precau (more content not included)... [facility] 06-26-2025 Note Care Management Prog ress Note Short Medical why still here: need delirium to clear , from home with - she is caregiver for him- ( has dementia ) previous was doing own pill box- geriatrics following- readmission was here Admission 06/14-06/22/25 for CAD , OR 06/18 sent home with C. Planned Discharge Disposition: Home Health Services [facility] active notified and following Barriers/Today we still Wait: Delirium clearing Length of Stay (Days): 2 GMLOS: No GMLOS Documented [facility] 06-26-2025 Progress note Formatting of t his note might be different from the original. Care Management Progress Note Short Medical why still here: need delirium to clear , from home with - she is caregiver for him- ( has dementia ) previous was doing own pill box- geriatrics following- readmission was here Admission 06/14-06/22/25 for CAD , OR 06/18 sent home with HHC. Planned Discharge Disposition: Home Health Services [facility] active notified and following Barriers/Today we still Wait: Delirium clearing Length of Stay (Days): 2 GMLOS: No GMLOS Documented [facility] 06-26-2025 Nurse Note After being visited by [facility] and nursing general road supervisor, pt more calm and agreeable to care. Pt apologetic about earlier behavior. Pt assured that all is well. [facility] 06-26-2025 Nurse Note Pt is saying she is calling the police and reporting that we are violating her rights by speaking to her neighbors and friends about her condition. Pt has called bulldozer press operator multiple times requesting police security. Nurse called All, her daughter, daughter called the room and spoke to patient. All called back and said even she could not convince pt she is in hospital and we are her caregivers. Daughter wants us to remove pts phone. Pt is very paranoid. Message sent to physician regarding above. T [facility] 06-25-2025 Nurse Note Pt blood pressure running 170+ systolic, [facility] notified. New order for one time dose labetalol. Pt refused medication, stating she no longer trusts this nurse because she believes we are texting her neighbors and family about her condition. Attempted to reassure pt that we are not disclosing any information about her to anyone not approved as an emergency contact. Pt raising her voice to this nurse You had a chance to come clean and admit you are talking to Mr. Shabazz about my having a stroke! Again assured pt this nurse has no idea who this person might be, and had not disclosed any information about her to anyone. Pt demanding to speak to a general road supervisor. Manager Contract called. [facility] notified of pt's change in mental status. [facility] 06-25-2025 Progress note Formatting of t his note is different from the original. PCP follow up scheduled. Follow up with Praveen Crum Tuesday at 2:50 PM Follow up from [facility]. [facility]. [phone] [facility] 06-25-2025 Note Hospitalist Progress Note 06/25/2025 Subjective: Admit Date: 06/24/2025 PCP: PRAVEEN CRUM Room#: [id number]/[id number] A BRIEF HOSPITAL COURSE: Richie is a 75 y.o. female with PMH of HLD, chronic low back pain s/p lumbar spinal surgery, IBS with constipation, GERD, fibromyalgia, hypothyroid,CKD 2, Raynaud's, anxiety depression, and recent CABG x3 on 06/18/2025 who presents with concerns of altered mental status, noted to have been more confused over the last few days and forgetful. Has been complaining of intermittent cramping after being started on therapy for her CABG. Pt later reported that she took oxycodone and tramadol together thinking it would help her sleep and this was on Tuesday night prior to her confusion episode. ED findings: Afebrile, vital signs relatively stable,Labs largely unremarkable other than lactic acidosis 2.8. Concern for stroke was brought up and patient had a CTA head and neck in the ER as well as a CT head without contrast which did not show any acute intracranial process or LVO. No high-grade stenosis either.ED requesting medical admission for continued stroke workup. MRI completed and showed two tiny acute cortical infarcts posterior aspect LEFT sylvian fissure. Extensive chronic ischemic changes. Neurology and geriatrics consulted. Pt/Ot recommended home, but pt continues to be very confused and her with advanced dementia and would likely not be safe to discharge home at this time Interval History: 06/25: Pt seen and examined. No complaints but very worried about her at home. Per son, Salvador, pt is still very confused and this is not her baseline. States she is normally very functional and oriented and able to care for her who has advanced dementia. States this AM, she didn't recognize him. Geriatrics consulted to aid with memory deficits Adult diet Regular; Low Fat/Low Chol/High Fiber/SYMONE 24HR INTAKE/OUTPUT: Intake/Output Summary (Last 24 hours) at 06/25/2025 1451 Last data filed at 06/25/2025 0545 Gross per 24 hour Intake 1169.17 ml Output -- Net 1169.17 ml Past Medical History: Medical History[1] LABS: CBC: Recent Labs 06/24/25 1013 06/25/25 0538 WBC 7.8 6.5 RBC 3.31* 3.62* HGB 10.1* 10.9* HCT 31.5* 34.3* MCV 95.2 94.8 RDW 14.9 14.8 PLT 305 372 BMP: Recent Labs 06/24/25 1013 06/25/25 0538 NA 135* 140 K 3.8 3.6 CL 99 106 CO2 22* 20* BUN 20 11 CREATININE 0.77 0.68 GLUCOSE 110 104 CALCIUM 9.8 9.0 ANIONGAP 14* 14* LIVER PROFILE: Recent Labs 06/24/25 1013 06/25/25 0538 AST 39* 40* ALT 11 11 BILITOT 0.7 0.7 ALKPHOS 80 75 PROT 7.4 6.9 PT/INR: No results for input(s): PROTIME, INR in the last 72 hours. CARDIAC ENZYMES: No results for input(s): TROPONINI in the last 72 hours. Procalcitonin: No results found for: PROCAL COVID-19 PCR: No results for input(s): COVID19 in the last 72 hours. Objective: Vitals: BP (!) 179/79 Pulse 82 Temp 36.1 ?C (96.9 ?F) (Temporal) Resp 18 Ht 5' 3 (1.6 m) Wt 138 lb (62.6 kg) SpO2 94% BMI 24.45 kg/m? Pulse Ox: SpO2 Av.7 % Min: 91 % Max: 98 % Supplemental O2: GENERAL: Lying in bed comfortably, awake and alert HEENT: normocephalic, non-traumatic, MMM NECK: supple, trachea midline HEART: RRR, normal S1 and S2 LUNGS: non labored, no wheeze ABD: soft, non-distended MSK: no edema noted SKIN: warm, dry NEURO: no focal deficits PSYCH: anxious affect Medications: Scheduled PRN Scheduled Meds[2] PRN Meds[3] Continuous Continuous Meds[4] Assessment Data: Acute, acute on chronic, unstable/uncontrolled chronic problems/diagnoses: Toxic and metabolic encephalopathy - likely multifactorial due to polypharmacy, acute L cortical CVA, likely underlying undiagnosed dementia Elevated troponin, flat trend, in the setting of recent CABG Lactic acidosis DM2 with hyperglycemia Anxiety Cognitive decline Stable chronic problems affecting care, new non-acute diagnoses: Medical History[5] Plan As a result of the above findings & factors, the following mgmt was pursued: - cont meds as ordered - neurology - cont DAPT, statin. Though acute CVA on imaging, her symptoms are not consistent with this as the etiology and likely more so due to polypharmacy of taking tramadol and oxycodone together - geriatrics consulted given AMS, likely underlying undiagnosed dementia, family dynamics at home caring for her , anxiety - am labs, replace lytes prn - PT/OT/CM/SW - delirium precautions: increase activity and limit nighttime disturbances - DVT prophylaxis: encourage ambulation Advance Directive: Full Code Anticipated Discharge - Date - 1-2 days - Location - home if mentation improves, SNF if not - Pending the following - mentation, geriatrics recs Total time spent (which include face to face and non face to face encounters) : 50 minutes Extended Emergency Contact Information Primary Emergency C (more content not included)... [facility]ly [facility] 06-25-2025 Note Tobacco cessation co nsult order via Dr. Bertha Berger. Patient denies ever using nicotine/tobacco/vape. Cessation counseling not indicated. [facility] 06-25-2025 Consult note Associated Order (s): IP CONSULT TO GERIATRICS [facility] Geriatric Medicine Inpatient Consult Service Admission Date: 06/24/2025 Admission Status: INPATIENT Chief Complaint: Chief Complaint Patient presents with Altered Mental Status Pt had open heart on 06/18, Patient c/o heart palpations, acid reflex flare and confusion for a few days. Reason for Appointment Geriatrics consulted for Delirium, acute stroke Assessment & Plan Principal Problem: Altered mental status, unspecified altered mental status type Metabolic Encephalopathy --Improving --Etiology likely possible stroke, transitions, recent surgery, ? Medications ? Sedation/hypoxia, ? Stress/anxiety --Encourage PO intake, time up in chair, family visits, supervised ambulation, and sleep hygiene --If agitated, assess for and consider treating for pain --QTc= 459 --No antipsychotic unless patient is danger to self/others/treatment --Continue scheduled melatonin at HS --Monitor for constipation/urinary retention - last BM unknown --Possible medication contributions: tramadol and oxycodone with coadministration - consider eval/workup for sleep apnea -venlafaxine - given low dose and timing unlikely contribution of withdraw but consider relationship to worsening anxiety associated with acute illness/surgery and interpersonal stressors at home Depression/Anxiety -previously on venlafaxine that was stopped during her last hospitalization. Unclear indication at that time, but nothing currently would prevent restarting -concern for depression/anxiety especially post cardiac bypass and stroke -will evaluate for clearing of mental status over next day or two and likely recommend resuming SSRI/SNRI to support recovery Caregiver stress -primary caregiver for her with dementia -discussed connection with community resources, noted they are in [place] -consider follow up in [facility] for caregiver support, information added to discharge Subjective: HPI 75 y.o. year-old female presented to the hospital from home with mental status change. Per review - recently had CABG x 3 on 06/18/25, was discharged home 06/22/25. Yesterday presented with altered mental status, mor confused over the last few days and forgetful. Initial CT scan without acute findings. Follow up MRI with two tiny acute cortical infarcts posterior of left sylvian fissure, extensive ischemic changes. Admission 06/14-06/22/25 for CAD. Initially presenting for increased chest pain while walking. Had diagnostic cath with multivessel disease and transferred for CABG. She did have some post op confusion that resolved. She had episode of possible Afib post op. Labs 06/25/25 Na 140, K 3.6, BUN 11, creat 0.68 LFTs unremarkable except AST 40 WBC 6.5, Hgb 10.9, Plt 372 Geriatrics ED screen: Quick Cognitive Screen (QCS): Nursing Delirium Screen (Nu-Desc): Nursing Delirium Symptom Checklist Total Score: 0 Conversation with patient: reports that she had intermittent episodes of chest pain thought to be related to reflux prior to this episode. Had been started on statin but due to pain she stopped it. Had worsening leading to hospitalization and CABG. Recovered and returned home. Pt and son, Salvador report that she was doing well until Tuesday morning. Returned home, did her own pillbox, seemed in good spirits. Pt reports increased stress on return home due to family situation. She is also the primary caregiver for who has dementia x 7+ years. He is no longer driving. Pt son reports the last year her has had pretty big decline. -pt did have symptoms when she had possible afib episode following surgery. Notes palpitations when she lays on her right side -has had worsening neck and shoulder pain. Also prabhjot had flair on Tuesday despite taking her nifedipine. Took tramadol and oxycodone for this pain before going to sleep. -has been on venlafaxine - was unaware that it had been stopped. Reports that she used her discharge summary to fill pillbox -she does note that she gave herself a ministress test day prior to her original hospitalization when she put in a zipper backwards Conversation with caregiver: sonSalvador at the bedside -no baseline cogntiive concerns -was doing well, independent, primary caregiver of her prior to surgery -he lives in [place] but hasn't had any concerns prior to this hospitalization for confusion -not to baseline, but improved from yesterday. Still easily distracted, somewhat disinhibited Advance Care Planning Code Status: Full Code Allergies[1] Current Medications[2] Medical History[3] Surgical History[4] Social History Tobacco Use Smoking status: Unknown Smokeless tobacco: Not on file Substance Use Topics Alcohol use: Not on file Social History Social History Narrative Not on file Family History Family History[5] No family status information on file. Review of Systems Constitutional: Positive for activity change. Negative for appetite change, chills, fatigue and fever. Respiratory: Negative for cough and shortness of breath. Cardiovascular: Positive for leg swelling. Negative for chest pain and palpitations. Gastrointestinal: Negative for abdominal pain, blood in stool, constipation and diarrhea. Genitourinary: Negative for dysuria and frequency. Musculoskeletal: Positive for gait problem. Negative for back pain. Neurological: Positive for weakness. Negative for dizziness, numbness and headaches. Psychiatric/Behavioral: Positive for confusion. Negative for hallucinations and sleep disturbance. The patient is nervous/anxious (stress). Functional Status Prior to Admission: (I: Independent, A: Assisted, D: Dependent) ADLs I A D Notes Bathing [x] [] [] Dressing [x] [] [] Toileting [x] [] [] Transfers [x] [] [] Feeding [x] [] [] Ambulation [x] [] [] Assistive devices: none IADLs I A D Telephone [x] [] [] Transportation [x] [] [] Shopping [x] [] [] Meal prep [x] [] [] Housework [x] [] [] Medications [x] [] [] Finances [x] [] [] Objective: BP (!) 165/99 Pulse 95 Temp 36 C (96.8 F) (Temporal) Resp 18 Ht 5' 3 (1.6 m) Wt 138 lb (62.6 kg) SpO2 91% BMI 24.45 kg/m Intake/Output Summary (Last 24 hours) at 06/25/2025 1321 Last data filed at 06/25/2025 0545 Gross per 24 hour Intake 1169.17 ml Output -- Net 1169.17 ml Wt Readings from Last 3 Encounters: 06/25/25 138 lb (62.6 kg) 06/22/25 138 lb 11.2 oz (62.9 kg) Physical Exam Constitutional: General: She is not in acute distress. HENT: Mouth/Throat: Mouth: Mucous membranes are moist. Pharynx: Oropharynx is clear. Eyes: General: Right eye: No discharge. Left eye: No discharge. Extraocular Movements: Extraocular movements intact. Conjunctiva/sclera: Conjunctivae normal. Pupils: Pupils are equal, round, and reactive to light. Cardiovascular: Rate and Rhythm: Normal rate and regular rhythm. Heart sounds: Normal heart sounds. No murmur heard. Comments: Sternotomy incision c/d/I - appears to be healing Left leg vein harvest site - healing well, small scabbing, sig bruising to LLE Pulmonary: Effort: Pulmonary effort is normal. No respiratory distress. Breath sounds: Wheezing (end expiratory bl) present. Abdominal: General: Bowel sounds are normal. There is no distension. Palpations: Abdomen is soft. Tenderness: There is no abdominal tenderness. Musculoskeletal: General: No tenderness. Deformity: OA changes hands. Right lower leg: Edema present. Left lower leg: Edema present. Comments: Symmetric hand progressive care nurse strength Independent bed mobility Skin: General: Skin is warm and dry. Findings: No rash. Neurological: Mental Status: She is alert and oriented to person, place, and time. Cranial Nerves: No cranial nerve deficit. Sensory: No sensory deficit (light touch bl feet). Coordination: Coordination normal. Psychiatric: Mood and Affect: Mood normal. Thought Content: Thought content normal. Comments: Loquacious, Attentive to interview and exam, able to recite days of week backwards Labs and Imaging: Recent Results (from the past 24 hours) Lactic acid with reflex Collection Time: 06/24/25 2:33 PM Result Value Ref Range LACTIC ACID 2.0 0.5 - 2.2 mmol/L Troponin, Serial, Third Test Collection Time: 06/24/25 2:33 PM Result Value Ref Range 4h Troponin HS (Serial 3rd Troponin) 73 (H) <=14 ng/L T4, free Collection Time: 06/24/25 2:33 PM Result Value Ref Range FREE T4 0.87 0.70 - 1.48 ng/dL Complete Urinalysis with reflex to Culture Collection Time: 06/24/25 2:42 PM Result Value Ref Range Color, Urine Colorless Lt. Yellow Clarity, Urine Clear Clear pH, Urine 7.0 5.0 - 8.0 pH Leukocytes, Urine Negative Negative Pancho/uL Nitrite, Urine Negative Negative Protein, Urine Negative Negative mg/dL Glucose, Urine Normal Normal (<70) mg/dL Bilirubin, Urine Negative Negative mg/dL Ketones, Urine Trace (A) Negative mg/dL Urobilinogen, Urine Normal Normal (0-1) mg/dL Blood, Urine Negative Negative mg/dL SPECIFIC GRAVITY OF URINE (NUMERIC) 1.036 (H) 1.005 - 1.030 CBC Collection Time: 06/25/25 5:38 AM Result Value Ref Range Auto WBC 6.5 3.6 - 10.7 10*3/uL RBC 3.62 (L) 3.80 - 5.20 10*6/uL Hemoglobin 10.9 (L) 11.7 - 16.0 g/dL Hematocrit 34.3 (L) 35.0 - 47.0 % MCV 94.8 77.0 - 99.0 fL MCH 30.1 26.0 - 34.0 pg MCHC 31.8 30.5 - 36.0 % RDW 14.8 11.5 - 15.0 % Platelets 372 140 - 440 10*3/uL MPV 10.1 9.0 - 12.7 fL Comprehensive metabolic panel Collection Time: 06/25/25 5:38 AM Result Value Ref Range SODIUM 140 136 - 145 mmol/L POTASSIUM 3.6 3.5 - 5.1 mmol/L CHLORIDE 106 98 - 107 mmol/L CARBON DIOXIDE 20 (L) 23 - 31 mmol/L ANION GAP 14 (H) 3 - 13 mmol/L UREA NITROGEN 11 9 - 23 mg/dL CREATININE 0.68 0.57 - 1.11 mg/dL GLUCOSE 104 82 - 115 mg/dL CALCIUM 9.0 8.8 - 10.0 mg/dL AST (SGOT) 40 (H) <34 U/L ALT 11 <30 U/L ALKALINE PHOSPHATASE 75 40 - 150 U/L ALBUMIN 3.6 3.4 - 4.8 g/dL BILIRUBIN, TOTAL 0.7 <1.2 mg/dL TOTAL PROTEIN 6.9 6.4 - 8.3 g/dL eGFR >90.0 >60.0 mL/min/1.73m*2 Serial Troponin, High Sensitivity Collection Time: 06/25/25 5:38 AM Result Value Ref Range Troponin HS Serial Baseline 73 (H) <=14 ng/L ECG 12 lead Collection Time: 06/25/25 5:53 AM Result Value Ref Range Heart Rate 83 bpm QRSD Interval 97 ms QT Interval 392 ms QTC Interval 459 ms P [place] 49 degrees QRS [place] 97 degrees T Wave [place] 206 degrees [place] Interval 149 ms Troponin, High Sensitivity, Serial, Second Test Collection Time: 06/25/25 7:37 AM Result Value Ref Range 2h Troponin HS (Serial 2nd Troponin) 78 (H) <=14 ng/L Transthoracic echocardiogram (TTE) complete with contrast, bubble, strain, and 3D PRN Collection Time: 06/25/25 11:58 AM Result Value Ref Range IVSd 0.9 0.6 - 0.9 cm LVIDd 4.1 3.9 - 5.3 cm LVIDs 2.9 cm LVOT Diameter 1.9 cm LVPWd 0.9 0.6 - 0.9 cm Global Longitudinal Strain -12.4 % Global Longitudinal Strain -11.5 % Global Longitudinal Strain -14.8 % Global Longitudinal Strain -12.9 % EF BP 51 (A) 55 - 100 % LV Ejection Fraction A2C 46 % LV Ejection Fraction A4C 50 % LV EDV A2C 116 mL LV EDV A4C 150 mL LV EDV BP 140 (A) 56 - 104 mL LV ESV A2C 63 mL LV ESV A4C 75 mL LV ESV BP 69 (A) 19 - 49 mL LVOT Cardiac Output 3.7 liter/minute LVOT Peak Gradient 3 mmHg LVOT Mean Gradient 1 mmHg LVOT SV 49.3 ml LVOT Peak Velocity 0.8 m/s LVOT VTI 17.4 cm RV Longitudinal Dimension 6.6 cm RV Mid Dimension 2.8 cm RV Basal Dimension 2.7 cm RV Free Wall Peak S' 11 cm/s LA Diameter 2.9 cm LA Volume A/L 53 mL LA Volume 2C 50 22 - 52 mL LA Volume 4C 47 22 - 52 mL LA Volume BP 50 22 - 52 mL AV Area by Peak Velocity 1.5 cm2 AV Area by VTI 1.8 cm2 AV Peak Gradient 8 mmHg AV Mean Gradient 4 mmHg AV Peak Velocity 1.5 m/s AV Mean Velocity 1.0 m/s AV VTI 26.7 cm MV A Velocity 1.25 m/s MV E Wave Deceleration Time 199.0 ms MV E Velocity 0.73 m/s LV E' Lateral Velocity 9 cm/s LV E' Septal Velocity 7 cm/s TAPSE 1.0 (A) >=1.7 cm TR Peak Gradient 30 mmHg TR Max Velocity 2.76 m/s Ascending Aorta 3.2 cm IVC Diameter 1.6 cm Aortic Root 3.3 cm Fractional Shortening 2D 29 28 - 44 % LV ESV Index BP 42 mL/m2 LV EDV Index BP 85 mL/m2 LV ESV Index A4C 45 mL/m2 LV EDV Index A4C 91 mL/m2 LV ESV Index A2C 38 mL/m2 LV EDV Index A2C 70 mL/m2 LVIDd Index 2.48 cm/m2 LVIDs Index 1.76 cm/m2 LV RWT Ratio 0.44 LV Mass 2D 114.1 67 - 162 g LV Mass 2D Index 69.2 43 - 95 g/m2 MV E/A 0.58 E/E' Ratio (Averaged) 9.27 E/E' Lateral 8.11 E/E' Septal 10.43 LA Volume Index BP 30 16 - 34 ml/m2 LA Volume Index A/L 32 16 - 34 mL/m2 LVOT Stroke Volume Index 29.9 mL/m2 LVOT Area 2.8 cm2 LA Volume Index 2C 30 16 - 34 mL/m2 LA Volume Index 4C 28 16 - 34 mL/m2 LA Size Index 1.76 cm/m2 LA/AO Root Ratio 0.88 Ao Root Index 2.00 cm/m2 Ascending Aorta Index 1.94 cm/m2 AV Velocity Ratio 0.53 LVOT:AV VTI Index 0.65 CHRISTOPHE/BSA VTI 1.1 cm2/m2 CHRISTOPHE/BSA Peak Velocity 0.9 cm2/m2 Est. RA Pressure 3 mmHg RVSP 33 mmHg Lab Results Component Value Date TSH 5.65 (H) 06/24/2025 No components found for: B12 No results found for: VITD25 Reviewed: medication list, allergies, family history, notes from last encounter, lab results, imaging Follow-up: 1-2 days (Please note: Portions of this note were completed with a voice recognition program. Efforts were made to edit the dictations but occasionally words and phrases are mis-transcribed.) Dilma Multani, 06/25/25 1:21 PM [1] Allergies Allergen Reactions Flexeril [Cyclobenzaprine] Itching Phenergan [Promethazine] Tardive Dyskinesia [2] Current Facility-Administered Medications: acetaminophen (Tylenol) tablet 650 mg, 650 mg, Oral, q6h PRN, 650 mg at 06/24/25 2215 OR acetaminophen (Tylenol) suppository 650 mg, 650 mg, Rectal, q6h PRN, Bertha Berger MD aspirin chewable tablet 81 mg, 81 mg, Oral, Daily, Bertha Berger MD, 81 mg at 06/25/25 0844 bisacodyl (Dulcolax) suppository 10 mg, 10 mg, Rectal, Daily PRN, Bertha Berger MD clopidogrel (Plavix) tablet 75 mg, 75 mg, Oral, Daily, Bertha Berger MD, 75 mg at 06/25/25 0845 ezetimibe (Zetia) tablet 10 mg, 10 mg, Oral, Nightly, Bertha Berger MD, 10 mg at 06/24/25 212 labetalol (Normodyne,Trandate) injection 10 mg, 10 mg, IntraVENous, q10 min PRN, Bertha Berger MD levothyroxine (Synthroid, Levoxyl) tablet 50 mcg, 50 mcg, Oral, qAM AC, Bertha Berger MD, 50 mcg at 06/25/25 0544 melatonin tablet 3 mg, 3 mg, Oral, Nightly, Hernesto Perez NP [Held by provider] metoprolol succinate XL (Toprol-XL) 24 hr tablet 50 mg, 50 mg, Oral, Daily, Bertha Berger MD, 50 mg at 06/24/25 1445 naloxone (Narcan) injection 0.4 mg, 0.4 mg, IntraVENous, q5 min PRN, Bertha Berger MD [Held by provider] NIFEdipine XL (Procardia XL) 24 hr tablet 30 mg, 30 mg, Oral, Daily, Bertha Berger MD ondansetron ODT (Zofran-ODT) disintegrating tablet 4 mg, 4 mg, Oral, q8h PRN OR ondansetron (Zofran) injection 4 mg, 4 mg, IntraVENous, q6h PRN, Bertha Berger MD oxyCODONE (Roxicodone) immediate release tablet 5 mg, 5 mg, Oral, q6h PRN, Bertha Berger MD, 5 mg at 06/25/25 0103 polyethylene glycol (PEG) 3350 (Miralax) packet 17 g, 17 g, Oral, Daily PRN, Bertha Berger MD rosuvastatin (Crestor) tablet 40 mg, 40 mg, Oral, Daily, Bertha Berger MD, 40 mg at 06/24/25 2129 sodium chloride 0.9 % infusion, 50 mL/hr, IntraVENous, Continuous, Bertha Berger MD, Last Rate: 50 mL/hr at 06/25/25 0407, 50 mL/hr at 06/25/25 0407 [3] Past Medical History: Diagnosis Date Anxiety CKD (chronic kidney disease) stage 2, GFR 60-89 ml/min Depression Fibromyalgia GERD (gastroesophageal reflux disease) Heart disease Hyperlipidemia Hypothyroid IBS (irritable bowel syndrome) Raynaud's disease [4] Past Surgical History: Procedure Laterality Date CORONARY ARTERY BYPASS GRAFT [5] No family history on file. [employer] Phone: 06-25-2025 Consult note Associated Order (s): IP CONSULT TO GERIATRICS [facility] Geriatric Medicine Inpatient Consult Service Admission Date: 06/24/2025 Admission Status: INPATIENT Chief Complaint: Chief Complaint Patient presents with Altered Mental Status Pt had open heart on 06/18, Patient c/o heart palpations, acid reflex flare and confusion for a few days. Reason for Appointment Geriatrics consulted for Delirium, acute stroke Assessment & Plan Principal Problem: Altered mental status, unspecified altered mental status type Metabolic Encephalopathy --Improving --Etiology likely possible stroke, transitions, recent surgery, ? Medications ? Sedation/hypoxia, ? Stress/anxiety --Encourage PO intake, time up in chair, family visits, supervised ambulation, and sleep hygiene --If agitated, assess for and consider treating for pain --QTc= 459 --No antipsychotic unless patient is danger to self/others/treatment --Continue scheduled melatonin at HS --Monitor for constipation/urinary retention - last BM unknown --Possible medication contributions: tramadol and oxycodone with coadministration - consider eval/workup for sleep apnea -venlafaxine - given low dose and timing unlikely contribution of withdraw but consider relationship to worsening anxiety associated with acute illness/surgery and interpersonal stressors at home Depression/Anxiety -previously on venlafaxine that was stopped during her last hospitalization. Unclear indication at that time, but nothing currently would prevent restarting -concern for depression/anxiety especially post cardiac bypass and stroke -will evaluate for clearing of mental status over next day or two and likely recommend resuming SSRI/SNRI to support recovery Caregiver stress -primary caregiver for her with dementia -discussed connection with community resources, noted they are in [place] -consider follow up in [facility] for caregiver support, information added to discharge Subjective: HPI 75 y.o. year-old female presented to the hospital from home with mental status change. Per review - recently had CABG x 3 on 06/18/25, was discharged home 06/22/25. Yesterday presented with altered mental status, mor confused over the last few days and forgetful. Initial CT scan without acute findings. Follow up MRI with two tiny acute cortical infarcts posterior of left sylvian fissure, extensive ischemic changes. Admission 06/14-06/22/25 for CAD. Initially presenting for increased chest pain while walking. Had diagnostic cath with multivessel disease and transferred for CABG. She did have some post op confusion that resolved. She had episode of possible Afib post op. Labs 06/25/25 Na 140, K 3.6, BUN 11, creat 0.68 LFTs unremarkable except AST 40 WBC 6.5, Hgb 10.9, Plt 372 Geriatrics ED screen: Quick Cognitive Screen (QCS): Nursing Delirium Screen (Nu-Desc): Nursing Delirium Symptom Checklist Total Score: 0 Conversation with patient: reports that she had intermittent episodes of chest pain thought to be related to reflux prior to this episode. Had been started on statin but due to pain she stopped it. Had worsening leading to hospitalization and CABG. Recovered and returned home. Pt and sonSalvador report that she was doing well until Tuesday morning. Returned home, did her own pillbox, seemed in good spirits. Pt reports increased stress on return home due to family situation. She is also the primary caregiver for who has dementia x 7+ years. He is no longer driving. Pt son reports the last year her has had pretty big decline. -pt did have symptoms when she had possible afib episode following surgery. Notes palpitations when she lays on her right side -has had worsening neck and shoulder pain. Also reynauds had flair on Tuesday despite taking her nifedipine. Took tramadol and oxycodone for this pain before going to sleep. -has been on venlafaxine - was unaware that it had been stopped. Reports that she used her discharge summary to fill pillbox -she does note that she gave herself a ministress test day prior to her original hospitalization when she put in a zipper backwards Conversation with caregiver: sonSalvador at the bedside -no baseline cogntiive concerns -was doing well, independent, primary caregiver of her prior to surgery -he lives in [place] but hasn't had any concerns prior to this hospitalization for confusion -not to baseline, but improved from yesterday. Still easily distracted, somewhat disinhibited Advance Care Planning Code Status: Full Code Allergies[1] Current Medications[2] Medical History[3] Surgical History[4] Social History Tobacco Use Smoking status: Unknown Smokeless tobacco: Not on file Substance Use Topics Alcohol use: Not on file Social History Social History Narrative Not on file Family History Family History[5] No family status information on file. Review of Systems Constitutional: Positive for activity change. Negative for appetite change, chills, fatigue and fever. Respiratory: Negative for cough and shortness of breath. Cardiovascular: Positive for leg swelling. Negative for chest pain and palpitations. Gastrointestinal: Negative for abdominal pain, blood in stool, constipation and diarrhea. Genitourinary: Negative for dysuria and frequency. Musculoskeletal: Positive for gait problem. Negative for back pain. Neurological: Positive for weakness. Negative for dizziness, numbness and headaches. Psychiatric/Behavioral: Positive for confusion. Negative for hallucinations and sleep disturbance. The patient is nervous/anxious (stress). Functional Status Prior to Admission: (I: Independent, A: Assisted, D: Dependent) ADLs I A D Notes Bathing [x] [] [] Dressing [x] [] [] Toileting [x] [] [] Transfers [x] [] [] Feeding [x] [] [] Ambulation [x] [] [] Assistive devices: none IADLs I A D Telephone [x] [] [] Transportation [x] [] [] Shopping [x] [] [] Meal prep [x] [] [] Housework [x] [] [] Medications [x] [] [] Finances [x] [] [] Objective: BP (!) 165/99 Pulse 95 Temp 36 C (96.8 F) (Temporal) Resp 18 Ht 5' 3 (1.6 m) Wt 138 lb (62.6 kg) SpO2 91% BMI 24.45 kg/m Intake/Output Summary (Last 24 hours) at 06/25/2025 1321 Last data filed at 06/25/2025 0545 Gross per 24 hour Intake 1169.17 ml Output -- Net 1169.17 ml Wt Readings from Last 3 Encounters: 06/25/25 138 lb (62.6 kg) 06/22/25 138 lb 11.2 oz (62.9 kg) Physical Exam Constitutional: General: She is not in acute distress. HENT: Mouth/Throat: Mouth: Mucous membranes are moist. Pharynx: Oropharynx is clear. Eyes: General: Right eye: No discharge. Left eye: No discharge. Extraocular Movements: Extraocular movements intact. Conjunctiva/sclera: Conjunctivae normal. Pupils: Pupils are equal, round, and reactive to light. Cardiovascular: Rate and Rhythm: Normal rate and regular rhythm. Heart sounds: Normal heart sounds. No murmur heard. Comments: Sternotomy incision c/d/I - appears to be healing Left leg vein harvest site - healing well, small scabbing, sig bruising to LLE Pulmonary: Effort: Pulmonary effort is normal. No respiratory distress. Breath sounds: Wheezing (end expiratory bl) present. Abdominal: General: Bowel sounds are normal. There is no distension. Palpations: Abdomen is soft. Tenderness: There is no abdominal tenderness. Musculoskeletal: General: No tenderness. Deformity: OA changes hands. Right lower leg: Edema present. Left lower leg: Edema present. Comments: Symmetric hand progressive care nurse strength Independent bed mobility Skin: General: Skin is warm and dry. Findings: No rash. Neurological: Mental Status: She is alert and oriented to person, place, and time. Cranial Nerves: No cranial nerve deficit. Sensory: No sensory deficit (light touch bl feet). Coordination: Coordination normal. Psychiatric: Mood and Affect: Mood normal. Thought Content: Thought content normal. Comments: Loquacious, Attentive to interview and exam, able to recite days of week backwards Labs and Imaging: Recent Results (from the past 24 hours) Lactic acid with reflex Collection Time: 06/24/25 2:33 PM Result Value Ref Range LACTIC ACID 2.0 0.5 - 2.2 mmol/L Troponin, Serial, Third Test Collection Time: 06/24/25 2:33 PM Result Value Ref Range 4h Troponin HS (Serial 3rd Troponin) 73 (H) <=14 ng/L T4, free Collection Time: 06/24/25 2:33 PM Result Value Ref Range FREE T4 0.87 0.70 - 1.48 ng/dL Complete Urinalysis with reflex to Culture Collection Time: 06/24/25 2:42 PM Result Value Ref Range Color, Urine Colorless Lt. Yellow Clarity, Urine Clear Clear pH, Urine 7.0 5.0 - 8.0 pH Leukocytes, Urine Negative Negative Pancho/uL Nitrite, Urine Negative Negative Protein, Urine Negative Negative mg/dL Glucose, Urine Normal Normal (<70) mg/dL Bilirubin, Urine Negative Negative mg/dL Ketones, Urine Trace (A) Negative mg/dL Urobilinogen, Urine Normal Normal (0-1) mg/dL Blood, Urine Negative Negative mg/dL SPECIFIC GRAVITY OF URINE (NUMERIC) 1.036 (H) 1.005 - 1.030 CBC Collection Time: 06/25/25 5:38 AM Result Value Ref Range Auto WBC 6.5 3.6 - 10.7 10*3/uL RBC 3.62 (L) 3.80 - 5.20 10*6/uL Hemoglobin 10.9 (L) 11.7 - 16.0 g/dL Hematocrit 34.3 (L) 35.0 - 47.0 % MCV 94.8 77.0 - 99.0 fL MCH 30.1 26.0 - 34.0 pg MCHC 31.8 30.5 - 36.0 % RDW 14.8 11.5 - 15.0 % Platelets 372 140 - 440 10*3/uL MPV 10.1 9.0 - 12.7 fL Comprehensive metabolic panel Collection Time: 06/25/25 5:38 AM Result Value Ref Range SODIUM 140 136 - 145 mmol/L POTASSIUM 3.6 3.5 - 5.1 mmol/L CHLORIDE 106 98 - 107 mmol/L CARBON DIOXIDE 20 (L) 23 - 31 mmol/L ANION GAP 14 (H) 3 - 13 mmol/L UREA NITROGEN 11 9 - 23 mg/dL CREATININE 0.68 0.57 - 1.11 mg/dL GLUCOSE 104 82 - 115 mg/dL CALCIUM 9.0 8.8 - 10.0 mg/dL AST (SGOT) 40 (H) <34 U/L ALT 11 <30 U/L ALKALINE PHOSPHATASE 75 40 - 150 U/L ALBUMIN 3.6 3.4 - 4.8 g/dL BILIRUBIN, TOTAL 0.7 <1.2 mg/dL TOTAL PROTEIN 6.9 6.4 - 8.3 g/dL eGFR >90.0 >60.0 mL/min/1.73m*2 Serial Troponin, High Sensitivity Collection Time: 06/25/25 5:38 AM Result Value Ref Range Troponin HS Serial Baseline 73 (H) <=14 ng/L ECG 12 lead Collection Time: 06/25/25 5:53 AM Result Value Ref Range Heart Rate 83 bpm QRSD Interval 97 ms QT Interval 392 ms QTC Interval 459 ms P [place] 49 degrees QRS [place] 97 degrees T Wave [place] 206 degrees [place] Interval 149 ms Troponin, High Sensitivity, Serial, Second Test Collection Time: 06/25/25 7:37 AM Result Value Ref Range 2h Troponin HS (Serial 2nd Troponin) 78 (H) <=14 ng/L Transthoracic echocardiogram (TTE) complete with contrast, bubble, strain, and 3D PRN Collection Time: 06/25/25 11:58 AM Result Value Ref Range IVSd 0.9 0.6 - 0.9 cm LVIDd 4.1 3.9 - 5.3 cm LVIDs 2.9 cm LVOT Diameter 1.9 cm LVPWd 0.9 0.6 - 0.9 cm Global Longitudinal Strain -12.4 % Global Longitudinal Strain -11.5 % Global Longitudinal Strain -14.8 % Global Longitudinal Strain -12.9 % EF BP 51 (A) 55 - 100 % LV Ejection Fraction A2C 46 % LV Ejection Fraction A4C 50 % LV EDV A2C 116 mL LV EDV A4C 150 mL LV EDV BP 140 (A) 56 - 104 mL LV ESV A2C 63 mL LV ESV A4C 75 mL LV ESV BP 69 (A) 19 - 49 mL LVOT Cardiac Output 3.7 liter/minute LVOT Peak Gradient 3 mmHg LVOT Mean Gradient 1 mmHg LVOT SV 49.3 ml LVOT Peak Velocity 0.8 m/s LVOT VTI 17.4 cm RV Longitudinal Dimension 6.6 cm RV Mid Dimension 2.8 cm RV Basal Dimension 2.7 cm RV Free Wall Peak S' 11 cm/s LA Diameter 2.9 cm LA Volume A/L 53 mL LA Volume 2C 50 22 - 52 mL LA Volume 4C 47 22 - 52 mL LA Volume BP 50 22 - 52 mL AV Area by Peak Velocity 1.5 cm2 AV Area by VTI 1.8 cm2 AV Peak Gradient 8 mmHg AV Mean Gradient 4 mmHg AV Peak Velocity 1.5 m/s AV Mean Velocity 1.0 m/s AV VTI 26.7 cm MV A Velocity 1.25 m/s MV E Wave Deceleration Time 199.0 ms MV E Velocity 0.73 m/s LV E' Lateral Velocity 9 cm/s LV E' Septal Velocity 7 cm/s TAPSE 1.0 (A) >=1.7 cm TR Peak Gradient 30 mmHg TR Max Velocity 2.76 m/s Ascending Aorta 3.2 cm IVC Diameter 1.6 cm Aortic Root 3.3 cm Fractional Shortening 2D 29 28 - 44 % LV ESV Index BP 42 mL/m2 LV EDV Index BP 85 mL/m2 LV ESV Index A4C 45 mL/m2 LV EDV Index A4C 91 mL/m2 LV ESV Index A2C 38 mL/m2 LV EDV Index A2C 70 mL/m2 LVIDd Index 2.48 cm/m2 LVIDs Index 1.76 cm/m2 LV RWT Ratio 0.44 LV Mass 2D 114.1 67 - 162 g LV Mass 2D Index 69.2 43 - 95 g/m2 MV E/A 0.58 E/E' Ratio (Averaged) 9.27 E/E' Lateral 8.11 E/E' Septal 10.43 LA Volume Index BP 30 16 - 34 ml/m2 LA Volume Index A/L 32 16 - 34 mL/m2 LVOT Stroke Volume Index 29.9 mL/m2 LVOT Area 2.8 cm2 LA Volume Index 2C 30 16 - 34 mL/m2 LA Volume Index 4C 28 16 - 34 mL/m2 LA Size Index 1.76 cm/m2 LA/AO Root Ratio 0.88 Ao Root Index 2.00 cm/m2 Ascending Aorta Index 1.94 cm/m2 AV Velocity Ratio 0.53 LVOT:AV VTI Index 0.65 CHRISTOPHE/BSA VTI 1.1 cm2/m2 CHRISTOPHE/BSA Peak Velocity 0.9 cm2/m2 Est. RA Pressure 3 mmHg RVSP 33 mmHg Lab Results Component Value Date TSH 5.65 (H) 06/24/2025 No components found for: B12 No results found for: VITD25 Reviewed: medication list, allergies, family history, notes from last encounter, lab results, imaging Follow-up: 1-2 days (Please note: Portions of this note were completed with a voice recognition program. Efforts were made to edit the dictations but occasionally words and phrases are mis-transcribed.) Dilma Multani DO 06/25/25 1:21 PM [1] Allergies Allergen Reactions Flexeril [Cyclobenzaprine] Itching Phenergan [Promethazine] Tardive Dyskinesia [2] Current Facility-Administered Medications: acetaminophen (Tylenol) tablet 650 mg, 650 mg, Oral, q6h PRN, 650 mg at 06/24/25 2085 OR acetaminophen (Tylenol) suppository 650 mg, 650 mg, Rectal, q6h PRN, Bertha Berger MD aspirin chewable tablet 81 mg, 81 mg, Oral, Daily, Bertha Berger MD, 81 mg at 06/25/25 0844 bisacodyl (Dulcolax) suppository 10 mg, 10 mg, Rectal, Daily PRN, Bertha Berger MD clopidogrel (Plavix) tablet 75 mg, 75 mg, Oral, Daily, Bertha Berger MD, 75 mg at 06/25/25 0845 ezetimibe (Zetia) tablet 10 mg, 10 mg, Oral, Nightly, Bertha Berger MD, 10 mg at 06/24/25 2129 labetalol (Normodyne,Trandate) injection 10 mg, 10 mg, IntraVENous, q10 min PRN, Bertha Berger MD levothyroxine (Synthroid, Levoxyl) tablet 50 mcg, 50 mcg, Oral, qAM AC, Bertha Berger MD, 50 mcg at 06/25/25 0544 melatonin tablet 3 mg, 3 mg, Oral, Nightly, Hernesto Perez NP [Held by provider] metoprolol succinate XL (Toprol-XL) 24 hr tablet 50 mg, 50 mg, Oral, Daily, Bertha Berger MD, 50 mg at 06/24/25 1445 naloxone (Narcan) injection 0.4 mg, 0.4 mg, IntraVENous, q5 min PRN, Bertha Berger MD [Held by provider] NIFEdipine XL (Procardia XL) 24 hr tablet 30 mg, 30 mg, Oral, Daily, Bertha Berger MD ondansetron ODT (Zofran-ODT) disintegrating tablet 4 mg, 4 mg, Oral, q8h PRN OR ondansetron (Zofran) injection 4 mg, 4 mg, IntraVENous, q6h PRN, Bertha Berger MD oxyCODONE (Roxicodone) immediate release tablet 5 mg, 5 mg, Oral, q6h PRN, Bertha Berger MD, 5 mg at 06/25/25 0103 polyethylene glycol (PEG) 3350 (Miralax) packet 17 g, 17 g, Oral, Daily PRN, Bertha Berger MD rosuvastatin (Crestor) tablet 40 mg, 40 mg, Oral, Daily, Bertha Berger MD, 40 mg at 06/24/252128 sodium chloride 0.9 % infusion, 50 mL/hr, IntraVENous, Continuous, Bertha Berger MD, Last Rate: 50 mL/hr at 06/25/25406, 50 mL/hr at 06/25/25406 [3] Past Medical History: Diagnosis Date Anxiety CKD (chronic kidney disease) stage 2, GFR 60-89 ml/min Depression Fibromyalgia GERD (gastroesophageal reflux disease) Heart disease Hyperlipidemia Hypothyroid IBS (irritable bowel syndrome) Raynaud's disease [4] Past Surgical History: Procedure Laterality Date CORONARY ARTERY BYPASS GRAFT [5] No family history on file. CONSULT NOTE: STROKE SERVICE Patient Name: Richie Armas Patient : 1950 Date of Admission: 06/24/2025 Chief Complaint: confusion HPI: 75 y.o. with a PMH of CABG on 06/18, HLD, fibromyalgia, CKD, Raynaud's, anxiety who presented to [facility] on 06/24/25 with a chief complaint of confusion. In ED NIH was 1 for sensory deficits. Pt notes that while in the hospital for CABG she laid on right side and noted flashing lights in her visual field and she has been worried on this since. When she went home she overdid it taking care of her demented and visiting with family. She became nervous she was not sleeping enough, so she took oxycodone and tramadol Tuesday night and woke on Tuesday confused, more likely unable to think clearly and carry her thoughts through to completion. CT of the brain is negative, CTA was normal as well. Son relates she has become very perseverative on many issues over the last two days. Yesterday she believed she had meningitis, today she is very worried about her carotids. Medical History[1] Surgical History[2] Family History[3] Allergies[4] Prior to Admission medications Medication Sig Start Date End Date Taking? Authorizing Provider aspirin 81 MG chewable tablet Chew 1 tablet (81 mg) daily. 06/23/25 06/23/26 Yes Thierno Reeder APRN - PRABHJOT clopidogrel (Plavix) 75 MG tablet Take 1 tablet (75 mg) by mouth daily. 06/23/25 06/23/26 Yes HOLLI Marr CNP ezetimibe (Zetia) 10 MG tablet Take 1 tablet (10 mg) by mouth Nightly. 06/22/25 06/22/26 Yes HOLLI Marr CNP levothyroxine (Synthroid, Levoxyl) 50 MCG tablet Take 1 tablet (50 mcg) by mouth every morning (before breakfast). 06/23/25 06/23/26 Yes HOLLI Marr CNP metoprolol succinate XL (Toprol-XL) 50 MG 24 hr tablet Take 1 tablet (50 mg) by mouth daily. Do not crush or chew. 06/23/25 06/23/26 Yes HOLLI Marr CNP NIFEdipine XL (Procardia XL) 30 MG 24 hr tablet Take 1 tablet (30 mg) by mouth daily. Do not crush, chew, or split. 06/23/25 06/23/26 Yes HOLLI Marr CNP oxyCODONE (Roxicodone) 5 MG immediate release tablet Take 1 tablet (5 mg) by mouth every 6 hours as needed for severe pain (7-10) (acute post surgical pain) for up to 5 days. 06/22/25 06/27/25 Yes HOLLI Marr CNP rosuvastatin (Crestor) 40 MG tablet Take 1 tablet (40 mg) by mouth daily. 06/23/25 06/23/26 Yes HOLLI Marr CNP tiZANidine (Zanaflex) 4 MG tablet 4 mg every 8 hours as needed for muscle spasms. 04/08/25 Yes Historical Provider, acetaminophen (Tylenol) 500 MG tablet Take 2 tablets (1,000 mg) by mouth every 8 hours for 10 days. 06/22/25 07/02/25 HOLLI Marr CNP furosemide (Lasix) 40 MG tablet Take 1 tablet (40 mg) by mouth daily for 5 days. 06/23/25 06/28/25 HOLLI Marr CNP potassium chloride CR (K-Tab) 20 MEQ ER tablet Take 1 tablet (20 mEq) by mouth daily for 5 days. Do not crush, chew, or split. 06/23/25 06/28/25 Thierno Reeder APRN - EXHIBIT BUILDER lubiprostone (Amitiza) 24 MCG capsule Take 24 mcg by mouth 2 times daily (with meals). 06/13/25 06/22/25 Historical Provider, Review of Systems Constitutional: Negative for fatigue and fever. HENT: Negative for hearing loss, tinnitus, trouble swallowing and voice change. Eyes: Negative for photophobia and visual disturbance. Respiratory: Negative for cough and shortness of breath. Cardiovascular: Negative for chest pain, palpitations and leg swelling. Gastrointestinal: Negative for nausea and vomiting. Endocrine: Negative. Genitourinary: Negative for difficulty urinating. Musculoskeletal: Negative for gait problem. Neurological: Negative for dizziness, tremors, seizures, syncope, facial asymmetry, speech difficulty, weakness, light-headedness, numbness and headaches. Hematological: Negative. Psychiatric/Behavioral: Positive for confusion. Negative for agitation. The patient is nervous/anxious and is hyperactive. Physical Examination: Patient Vitals for the past 8 hrs: BP Temp Temp src Pulse Resp SpO2 06/25/25 1001 (!) 165/99 36 C (96.8 F) Temporal 95 18 91 % 06/25/25 0523 (!) 179/90 36.3 C (97.4 F) Temporal 86 16 97 % I/O last 3 completed shifts: In: 1169.2 (18.7 mL/kg) [P.O.:500; I.V.:669.2 (10.7 mL/kg)] Out: - (0 mL/kg) Weight: 62.6 kg General Physical Examination: General: awake, alert, pleasant, anxious, conversive HEENT: Normocephalic, atraumatic CV: S1+S2, RRR, no murmurs. Pulm: CTA, intubated, ventilated Abdomen: Soft NT/ND. BS + Skin: warm, dry Extremities: normal with no edema or cyanosis Orthopedic limitation: N/A Pulses: Intact peripherally Carotid auscultation: No bruits Neurological Examination: Higher Functions: Mental Status Exam: Level of Alertness: Awake Orientation: Normal to self, time, place but does get confused when trying to relate events of past days Memory: Normal Fund of Knowledge: Normal Language: Normal Dysarthria: not present Cranial Nerves: II Visual acuity: not tested II Visual bergman: normal III Pupils (~ 3 mm right, 3 mm left) equal, round, reactive to light III Ptosis not present III-IV- Extraocular Movements: intact Nystagmus: not present Saccades and pursuits: normal V Facial sensation: intact Corneal's: Intact bilateral VII Facial strength: intact VIII Hearing: intact IX-X Gag reflex: present Cough reflex: present X Palate: intact XI Shoulder shrug: normal} XII Tongue movement: normal Motor Examination: Tone after evaluation of 4 limbs, the following findings applied: Normal Bulk: normal Muscle Strength after evaluation of all limbs and axial musculature the following findings applied: Drift: absent Reflexes: after evaluation of 4 limbs, the following findings applied: normal all limbs Plantar response: Flexor Bilaterally Sensory Examination: grossly intact to light touch Coordination Examination: Arms: Normal finger to nose Legs: Intact heel knee dan testing Tremors: not present Gait: not observed NIH Stroke Score 1a Level of consciousness: 0=alert; keenly responsive 1b. LOC questions: 0=Performs both tasks correctly 1c. LOC commands: 0=Performs both tasks correctly 2. Best Gaze: 0=normal 3. Visual: 0=No visual loss 4. Facial Palsy: 0=Normal symmetric movement 5a. Motor left arm: 0=No drift, limb holds 90 (or 45) degrees for full 10 seconds 5b. Motor right arm: 0=No drift, limb holds 90 (or 45) degrees for full 10 seconds 6a. motor left le=No drift, limb holds 90 (or 45) degrees for full 10 seconds 6b Motor right le=No drift, limb holds 90 (or 45) degrees for full 10 seconds 7. Limb Ataxia: 0=Absent 8. Sensory: 0=Normal; no sensory loss 9. Best Language: 0=No aphasia, normal 10. Dysarthria: 0=Normal 11. Extinction and Inattention: 0=No abnormality Total: 0 Labs CBC: Lab Results Component Value Date WBC 6.5 06/25/2025 HGB 10.9 (L) 06/25/2025 HCT 34.3 (L) 06/25/2025 MCV 94.8 06/25/2025 PLT 372 06/25/2025 BMP/CMP: Lab Results Component Value Date GLUCOSE 104 06/25/2025 CALCIUM 9.0 06/25/2025 NA 140 06/25/2025 K 3.6 06/25/2025 CO2 20 (L) 06/25/2025 CL 106 06/25/2025 BUN 11 06/25/2025 CREATININE 0.68 06/25/2025 Lipids: HgA1c: Lab Results Component Value Date HGBA1C 5.8 (H) 06/16/2025 INR: Results from last 7 days Lab Units 06/19/25 0032 06/18/25 1515 INR 1.1 1.4* TSH: Lab Results Component Value Date TSH 5.65 (H) 06/24/2025 EKG: Encounter Date: 06/24/25 ECG 12 lead Result Value Heart Rate 83 QRSD Interval 97 QT Interval 392 QTC Interval 459 P [place] 49 QRS [place] 97 T Wave [place] 206 OH Interval 149 Impression Sinus rhythm Consider right ventricular hypertrophy Nonspecific T abnrm, anterolateral leads Cardiac testing: TTE: Left Ventricle: Not well visualized. Left ventricle size is normal. Normal wall thickness. Low normal left ventricular systolic function. EF by 2D Simpsons Biplane is 51%. Mild hypokinesis of the apex. Grade I diastolic dysfunction with normal LAP. Septal motion is consistent with post-operative status. Right Ventricle: Not well visualized. Right ventricle size is normal. Normal systolic function. Tricuspid Valve: Moderate (2+) regurgitation. Normal RVSP. RVSP is 33 mmHg. Aorta: Not well visualized. Normal sized ascending aorta. Mildly dilated sinuses of Valsalva. Sinuses of Valsalva diameter is 3.6 cm. Normal sized STJ. - left and right atrium both mildly dilated. Technically difficult study. Radiology/imaging personal review: CT brain: No CT evidence of acute abnormality. CTA/CTP: No large vessel occlusion or high-grade stenosis in the head or neck. 0% stenosis of the proximal cervical ICAs bilaterally by NASCET criteria. 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 MRI brain: MR brain wo contrast Result Date: 06/24/2025 Patient Name: RICHIE ARMAS : 1950 Exam Date/Time: 06/24/2025 15:13 Procedure: MR BRAIN WO CONTRAST Ordering Provider: BERGER MARYAM Reason For Exam: Mental status change, unknown cause MRI OF THE BRAIN WITHOUT GADOLINIUM CLINICAL INDICATION: Mental status change, unknown cause TECHNIQUE: Routine MRI of the brain without gadolinium. COMPARISON: CT scan from earlier today FINDINGS: Diffusion-weighted imaging shows two tiny foci of restricted diffusion with corresponding low signal on ADC map in the posterior LEFT sylvian fissure cortex, compatible with tiny acute infarcts. No hemorrhage mass effect or midline shift. There are patchy and confluent areas of T2 bright signal in the periventricular and subcortical white matter, which are nonspecific, but may relate to chronic small vessel ischemic changes. Ventricular system is normal for age. Basal cisterns are not effaced. No pathologic extra-axial fluid collection identified. Major intracranial flow voids are visualized. 1. 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 Extensive chronic ischemic changes. CRITICAL TEST RESULT COMMUNICATION: Notification of these findings was made to BERTHA BERGER via [employer] on 06/24/2025 7:02 PM EDT. Report Dictated on Electronically Signed By: Ramesh Merino MD Electronically Signed Date/Time: 06/24/2025 7:02 PM EDT ASSESSMENT / PLAN / SUGGESTIONS: Altered mentation This is not likely a result of stroke, but more likely a result of taking both tramadol and oxycodone together to help with sleep. Discussion had with patient about not taking these medications together and further more not using tramadol as this can cause seizures in some pts. Left cortical infarcts vs. Tissue irritation secondary to tramadol use Pt does have risk ffactors for stroke and is post-op CABG, however presentation is atypical. It is possible that the DWI changes are a result of using of tramadol. Regardless pt would stay with antiplatelet therapy (plavix and asa) she is using for treatment and secondary prevention of stroke and stop tramadol usage. HLD Continue statin and zetia therapy Anxiety Pt is extremely anxious and stressed about her home care giving situation and may benefit from counseling or medication to help with this 30 minutes of my independent time was spent preparing to see the patient, obtaining/reviewing separately obtained history, completing an appropriate medical examination of the patient, ordering medications/tests/procedures, documenting clinical information on the EMR, and/or coordinating care. An additional 10 minutes was spent discussing assessment/plan with Dr. Valle. Electronically signed by Annette Saldana APRN - [employer]/EXHIBIT BUILDER on 06/25/2025 at 10:25 AM [1] Past Medical History: Diagnosis Date Anxiety CKD (chronic kidney disease) stage 2, GFR 60-89 ml/min Depression Fibromyalgia GERD (gastroesophageal reflux disease) Heart disease Hyperlipidemia Hypothyroid IBS (irritable bowel syndrome) Raynaud's disease [2] Past Surgical History: Procedure Laterality Date CORONARY ARTERY BYPASS GRAFT [3] No family history on file. [4] Allergies Allergen Reactions Flexeril [Cyclobenzaprine] Itching Phenergan [Promethazine] Tardive Dyskinesia Cosigned by Juana Valle MD at 06/25/2025 3:55 PM EDT Associated attestation - Juana Valle MD - 06/25/2025 3:55 PM EDT Neuro Critical Care / stroke Attending Patient seen and evaluated personally with my CRISTIANO, She has complaints of being confused shortly after being discharge from [facility] after CABG Patient reported having busy weekend , with visitors , emotional stress with her who has Alzheimer's , wanting to rest at night , taking narcotic given to her in the hospital and adding ULTRAM , Currently she is almost back to her baseline, however still slight difficulty thinking but this is minimally noted by even family Good attention expand Seems anxious and stress Has mild arthiritis limited full range of motion No other focal findings Normal fundus Patient MRI reviewed , small area of DWI changes, in the cortical region , this is actually a minimal finding considering she just had a CABG , but I think its real Possibilities , include small embolism , considering recent surgery raven procedural Patient at risk for raven - procedural PAF , NONE detected , but also possible, she woud need event monitor as outpatient Consider ECHO , ensure no issues after her surgery Contact CT surgery so they are aware of patient's admission Continue ALEC as she was already on She has Mallampati IV , consider MEG, this may also have contributed to her confusion particularly after the addition of [employer] suppressants The possibility that the minor cortical change could have been result from seizure focus is also there , suggest , EEG single 20 min and STOPPING ULTRAM Likely patient to be discharge tomorrow if no other new issues I personally interviewed and examined this patient , reviewed , corrected, agreed and attested the note for this patient. I reviewed the chart including MAR, labs, neuroimaging, other imaging studies and discussed my diagnostic impression and patient's plan of care with my CRISTIANO [x] Encounter Face to Face [x] Consult [x] Time spend [x] 80 [x] will continue to follow Personal discussion of test results and plan of care with: Family, Patient treatments and testing options informed consent and plan of care, Admitting Team, ., . Thank you PRAVEEN CRUM for the opportunity to be involved in this patient's care. documented in this encounter [facility] 06-25-2025 Note PHYSICAL THERAPY [facility] Initial Evaluation Name/MRN: Richie Armas ([id number]) Evaluation Date: 06/25/2025 Date of : 1950 Admission Date: 06/24/2025 9:37 AM Age: 75 y.o. Room[facility]Bed: [facility] A Discharge Recommendation: Home with assist PRN Equipment Needed: No Assessment IMPRESSION: Pt s/p CABG x 3 06/18/25, home x 48hrs before being re-admitted with stroke-like symptoms. Pt indep with bed mob (HOB elevated), transfers & modif indep with use of FWW. Pt remains compliant with sternal precautions, issued new P&C booklet for continued compliance with exercises. Rec home with assist at disch. Admitting Diagnosis: altered mental status Prognosis: good Performance Deficits /Impairments: N/A Decision Making: Low Complexity Subjective Pt awake in bed, son present. Pt agreeable to PT. Pain: Pt denies any current pain. Past Medical History: Medical History[1] Past Surgical History: Surgical History[2] Admission Diagnosis: Patient Active Problem List Diagnosis Date Noted Altered mental status, unspecified altered mental status type 06/24/2025 NSTEMI (non-ST elevation myocardial infarction) (HCC) 06/14/2025 Medical Precautions: No active isolations Proper PPE donned/doffed in accordance with facility standards. Fall Risk: Sal Fall Risk Score: 70 (High Risk) Precautions/Restrictions: Sternal Precautions: No lifting greater than 10 lbs. Ok for modified UE precautions using Keep Your Move in the Tube technique Family/Caregiver Present: child(cyn) Overall Cognitive Status: WFL Overall Orientation Status: Oriented x4 Vision: Not Assessed Hearing: normal Social/Functional History Pt lives at home w/ spouse (Alzheimer's dementia): 1 story naye with 1 step entry. Son and daughter in town to help at home. Prior Level of Function Prior Level of ADL Function: Independent Prior Level of Mobility: Independent; Device: Front wheeled walker Prior Level of Transfers: Independent Objective Lower Extremity Assessment AROM: WFL PROM: WFL Strength: Exceptions: functionally 4/5 BLE Sensation: Not assessed this session Balance: WFL Bed Mobility: Supine to sit: Modified Independent HOB Elevated Transfers Sit to stand: Modified Independent Stand to sit: Modified Independent Ambulation Ambulation 1 Assistive device(s) used: Front wheeled walker Assist level: Supervision Distance (ft): 50 Quality of gait: slow fouzia Ambulation 2 Assistive device(s) used: Front wheeled walker Assist level: Modified Independent Distance (ft): 250+ Quality of gait: No gait deviations Exercises Comments: Pt reports being compliant with P&C exer at home but cannot recall the exercises and has not performed since being admitted to hospital. This therapist issues new booklet at patient request for continued compliance with P&C exercises. Outcome Measures AM-PAC How much HELP from another person do you currently need Turning from your back to your side while in a flat bed without using bedrails?: None Moving from lying on your back to sitting on the side of a flat bed without using bedrails?: None Moving to and from a bed to a chair (including a wheelchair)?: None Standing up from a chair using your arms (wheelchair or bedside chair)?: None Walking in a hospital room?: None Stair climbing assessed?: No AM-PAC Inpatient Mobility Raw Score (No Stairs) : 20 JH-HLM JH-HLM Score: Walked 250 ft or more (i.e. several laps on unit) Plan No skilled acute PT indicated at this time. Please reconsult should changes occur. Safety/Education Safety Safety Devices in place: All fall risk precautions in place, call light within reach, gait belt, no alarms engaged upon entry, patient left sitting EOB, and neuro team present in room at end of session Restraints: N/A Education Education Given To: patient Education Provided: PT Role and Home Exercise Program Education Method: Verbal Barriers to Learning: Education Outcome: Goals Patient Stated Goal: to go home Therapy Time Individual Co-Treatment Co-Evaluation Time In 930 Time Out 957 Minutes 27 Timed Code Treatment Minutes: 8 Minutes Tiffanie Comer PT Patient's Physical Therapy Plan of Care supervision is transferred to a [facility] Physical Therapist. Goals and/or treatment plan was established in collaboration with patient/family/other representatives. [1] Past Medical History: Diagnosis Date Anxiety CKD (chronic kidney disease) stage 2, GFR 60-89 ml/min Depression Fibromyalgia GERD (gastroesophageal reflux disease) Heart disease Hyperlipidemia Hypothyroid IBS (irritable bowel syndrome) Raynaud's disease [2] Past Surgical History: Procedure Laterality Date CORONARY ARTERY BYPASS GRAFT [facility] 06-25-2025 Consult note Formatting of th is note is different from the original. CONSULT NOTE: STROKE SERVICE Patient Name: Richie Armas Patient : 1950 Date of Admission: 06/24/2025 Chief Complaint: confusion HPI: 75 y.o. with a PMH of CABG on 06/18, HLD, fibromyalgia, CKD, Raynaud's, anxiety who presented to [facility] on 06/24/25 with a chief complaint of confusion. In ED NIH was 1 for sensory deficits. Pt notes that while in the hospital for CABG she laid on right side and noted flashing lights in her visual field and she has been worried on this since. When she went home she overdid it taking care of her demented and visiting with family. She became nervous she was not sleeping enough, so she took oxycodone and tramadol Tuesday night and woke on Tuesday confused, more likely unable to think clearly and carry her thoughts through to completion. CT of the brain is negative, CTA was normal as well. Son relates she has become very perseverative on many issues over the last two days. Yesterday she believed she had meningitis, today she is very worried about her carotids. Medical History[1] Surgical History[2] Family History[3] Allergies[4] Prior to Admission medications Medication Sig Start Date End Date Taking? Authorizing Provider aspirin 81 MG chewable tablet Chew 1 tablet (81 mg) daily. 06/23/25 06/23/26 Yes HOLLI Marr CNP clopidogrel (Plavix) 75 MG tablet Take 1 tablet (75 mg) by mouth daily. 06/23/25 06/23/26 Yes HOLLI Marr CNP ezetimibe (Zetia) 10 MG tablet Take 1 tablet (10 mg) by mouth Nightly. 06/22/25 06/22/26 Yes HOLLI Marr CNP levothyroxine (Synthroid, Levoxyl) 50 MCG tablet Take 1 tablet (50 mcg) by mouth every morning (before breakfast). 06/23/25 06/23/26 Yes HOLLI Marr CNP metoprolol succinate XL (Toprol-XL) 50 MG 24 hr tablet Take 1 tablet (50 mg) by mouth daily. Do not crush or chew. 06/23/25 06/23/26 Yes HOLLI Marr CNP NIFEdipine XL (Procardia XL) 30 MG 24 hr tablet Take 1 tablet (30 mg) by mouth daily. Do not crush, chew, or split. 06/23/25 06/23/26 Yes HOLLI Marr CNP oxyCODONE (Roxicodone) 5 MG immediate release tablet Take 1 tablet (5 mg) by mouth every 6 hours as needed for severe pain (7-10) (acute post surgical pain) for up to 5 days. 06/22/25 06/27/25 Yes HOLLI Marr CNP rosuvastatin (Crestor) 40 MG tablet Take 1 tablet (40 mg) by mouth daily. 06/23/25 06/23/26 Yes HOLLI Marr CNP tiZANidine (Zanaflex) 4 MG tablet 4 mg every 8 hours as needed for muscle spasms. 04/08/25 Yes Historical Provider, acetaminophen (Tylenol) 500 MG tablet Take 2 tablets (1,000 mg) by mouth every 8 hours for 10 days. 06/22/25 07/02/25 HOLLI Marr CNP furosemide (Lasix) 40 MG tablet Take 1 tablet (40 mg) by mouth daily for 5 days. 06/23/25 06/28/25 HOLLI Marr CNP potassium chloride CR (K-Tab) 20 MEQ ER tablet Take 1 tablet (20 mEq) by mouth daily for 5 days. Do not crush, chew, or split. 06/23/25 06/28/25 HOLLI Marr CNP lubiprostone (Amitiza) 24 MCG capsule Take 24 mcg by mouth 2 times daily (with meals). 06/13/25 06/22/25 Historical Provider, Review of Systems Constitutional: Negative for fatigue and fever. HENT: Negative for hearing loss, tinnitus, trouble swallowing and voice change. Eyes: Negative for photophobia and visual disturbance. Respiratory: Negative for cough and shortness of breath. Cardiovascular: Negative for chest pain, palpitations and leg swelling. Gastrointestinal: Negative for nausea and vomiting. Endocrine: Negative. Genitourinary: Negative for difficulty urinating. Musculoskeletal: Negative for gait problem. Neurological: Negative for dizziness, tremors, seizures, syncope, facial asymmetry, speech difficulty, weakness, light-headedness, numbness and headaches. Hematological: Negative. Psychiatric/Behavioral: Positive for confusion. Negative for agitation. The patient is nervous/anxious and is hyperactive. Physical Examination: Patient Vitals for the past 8 hrs: BP Temp Temp src Pulse Resp SpO2 06/25/25 1001 (!) 165/99 36 C (96.8 F) Temporal 95 18 91 % 06/25/25 0523 (!) 179/90 36.3 C (97.4 F) Temporal 86 16 97 % I/O last 3 completed shifts: In: 1169.2 (18.7 mL/kg) [P.O.:500; I.V.:669.2 (10.7 mL/kg)] Out: - (0 mL/kg) Weight: 62.6 kg General Physical Examination: General: awake, alert, pleasant, anxious, conversive HEENT: Normocephalic, atraumatic CV: S1+S2, RRR, no murmurs. Pulm: CTA, intubated, ventilated Abdomen: Soft NT/ND. BS + Skin: warm, dry Extremities: normal with no edema or cyanosis Orthopedic limitation: N/A Pulses: Intact peripherally Carotid auscultation: No bruits Neurological Examination: Higher Functions: Mental Status Exam: Level of Alertness: Awake Orientation: Normal to self, time, place but does get confused when trying to relate events of past days Memory: Normal Fund of Knowledge: Normal Language: Normal Dysarthria: not present Cranial Nerves: II Visual acuity: not tested II Visual bergman: normal III Pupils (~ 3 mm right, 3 mm left) equal, round, reactive to light III Ptosis not present III-IV- Extraocular Movements: intact Nystagmus: not present Saccades and pursuits: normal V Facial sensation: intact Corneal's: Intact bilateral VII Facial strength: intact VIII Hearing: intact IX-X Gag reflex: present Cough reflex: present X Palate: intact XI Shoulder shrug: normal} XII Tongue movement: normal Motor Examination: Tone after evaluation of 4 limbs, the following findings applied: Normal Bulk: normal Muscle Strength after evaluation of all limbs and axial musculature the following findings applied: Drift: absent Reflexes: after evaluation of 4 limbs, the following findings applied: normal all limbs Plantar response: Flexor Bilaterally Sensory Examination: grossly intact to light touch Coordination Examination: Arms: Normal finger to nose Legs: Intact heel knee dan testing Tremors: not present Gait: not observed NIH Stroke Score 1a Level of consciousness: 0=alert; keenly responsive 1b. LOC questions: 0=Performs both tasks correctly 1c. LOC commands: 0=Performs both tasks correctly 2. Best Gaze: 0=normal 3. Visual: 0=No visual loss 4. Facial Palsy: 0=Normal symmetric movement 5a. Motor left arm: 0=No drift, limb holds 90 (or 45) degrees for full 10 seconds 5b. Motor right arm: 0=No drift, limb holds 90 (or 45) degrees for full 10 seconds 6a. motor left le=No drift, limb holds 90 (or 45) degrees for full 10 seconds 6b Motor right le=No drift, limb holds 90 (or 45) degrees for full 10 seconds 7. Limb Ataxia: 0=Absent 8. Sensory: 0=Normal; no sensory loss 9. Best Language: 0=No aphasia, normal 10. Dysarthria: 0=Normal 11. Extinction and Inattention: 0=No abnormality Total: 0 Labs CBC: Lab Results Component Value Date WBC 6.5 06/25/2025 HGB 10.9 (L) 06/25/2025 HCT 34.3 (L) 06/25/2025 MCV 94.8 06/25/2025 PLT 372 06/25/2025 BMP/CMP: Lab Results Component Value Date GLUCOSE 104 06/25/2025 CALCIUM 9.0 06/25/2025 NA 140 06/25/2025 K 3.6 06/25/2025 CO2 20 (L) 06/25/2025 CL 106 06/25/2025 BUN 11 06/25/2025 CREATININE 0.68 06/25/2025 Lipids: HgA1c: Lab Results Component Value Date HGBA1C 5.8 (H) 06/16/2025 INR: Results from last 7 days Lab Units 06/19/25 0032 06/18/25 1515 INR 1.1 1.4* TSH: Lab Results Component Value Date TSH 5.65 (H) 06/24/2025 EKG: Encounter Date: 06/24/25 ECG 12 lead Result Value Heart Rate 83 QRSD Interval 97 QT Interval 392 QTC Interval 459 P Babylon 49 QRS Babylon 97 T Wave Babylon 206 OH Interval 149 Impression Sinus rhythm Consider right ventricular hypertrophy Nonspecific T abnrm, anterolateral leads Cardiac testing: TTE: Left Ventricle: Not well visualized. Left ventricle size is normal. Normal wall thickness. Low normal left ventricular systolic function. EF by 2D Simpsons Biplane is 51%. Mild hypokinesis of the apex. Grade I diastolic dysfunction with normal LAP. Septal motion is consistent with post-operative status. Right Ventricle: Not well visualized. Right ventricle size is normal. Normal systolic function. Tricuspid Valve: Moderate (2+) regurgitation. Normal RVSP. RVSP is 33 mmHg. Aorta: Not well visualized. Normal sized ascending aorta. Mildly dilated sinuses of Valsalva. Sinuses of Valsalva diameter is 3.6 cm. Normal sized STJ. - left and right atrium both mildly dilated. Technically difficult study. Radiology/imaging personal review: CT brain: No CT evidence of acute abnormality. CTA/CTP: No large vessel occlusion or high-grade stenosis in the head or neck. 0% stenosis of the proximal cervical ICAs bilaterally by NASCET criteria. 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 MRI brain: MR brain wo contrast Result Date: 06/24/2025 [facility] 1950 [id number] Exam Date/Time: 06/24/2025 15:13 Procedure: MR BRAIN WO CONTRAST Ordering Provider: BERGER MARYAM Reason For Exam: Mental status change, unknown cause MRI OF THE BRAIN WITHOUT GADOLINIUM CLINICAL INDICATION: Mental status change, unknown cause TECHNIQUE: Routine MRI of the brain without gadolinium. COMPARISON: CT scan from earlier today FINDINGS: Diffusion-weighted imaging shows two tiny foci of restricted diffusion with corresponding low signal on ADC map in the posterior LEFT sylvian fissure cortex, compatible with tiny acute infarcts. No hemorrhage mass effect or midline shift. There are patchy and confluent areas of T2 bright signal in the periventricular and subcortical white matter, which are nonspecific, but may relate to chronic small vessel ischemic changes. Ventricular system is normal for age. Basal cisterns are not effaced. No pathologic extra-axial fluid collection identified. Major intracranial flow voids are visualized. 1. 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 Extensive chronic ischemic changes. CRITICAL TEST RESULT COMMUNICATION: Notification of these findings was made to BERTHA BERGER via [employer] on 06/24/2025 7:02 PM EDT. Report Dictated on Electronically Signed By: Ramesh Merino MD Electronically Signed Date/Time: 06/24/2025 7:02 PM EDT ASSESSMENT / PLAN / SUGGESTIONS: Altered mentation This is not likely a result of stroke, but more likely a result of taking both tramadol and oxycodone together to help with sleep. Discussion had with patient about not taking these medications together and further more not using tramadol as this can cause seizures in some pts. Left cortical infarcts vs. Tissue irritation secondary to tramadol use Pt does have risk ffactors for stroke and is post-op CABG, however presentation is atypical. It is possible that the DWI changes are a result of using of tramadol. Regardless pt would stay with antiplatelet therapy (plavix and asa) she is using for treatment and secondary prevention of stroke and stop tramadol usage. HLD Continue statin and zetia therapy Anxiety Pt is extremely anxious and stressed about her home care giving situation and may benefit from counseling or medication to help with this 30 minutes of my independent time was spent preparing to see the patient, obtaining/reviewing separately obtained history, completing an appropriate medical examination of the patient, ordering medications/tests/procedures, documenting clinical information on the EMR, and/or coordinating care. An additional 10 minutes was spent discussing assessment/plan with Dr. Valle. [1] Past Medical History: Diagnosis Date Anxiety CKD (chronic kidney disease) stage 2, GFR 60-89 ml/min Depression Fibromyalgia GERD (gastroesophageal reflux disease) Heart disease Hyperlipidemia Hypothyroid IBS (irritable bowel syndrome) Raynaud's disease [2] Past Surgical History: Procedure Laterality Date CORONARY ARTERY BYPASS GRAFT [3] No family history on file. [4] Allergies Allergen Reactions Flexeril [Cyclobenzaprine] Itching Phenergan [Promethazine] Tardive Dyskinesia Cosigned by Juana Valle MD at 06/25/2025 3:55 PM EDT Associated attestation - Juana Valle MD - 06/25/2025 3:55 PM EDT Neuro Critical Care / stroke Attending Patient seen and evaluated personally with my CRISTIANO, She has complaints of being confused shortly after being discharge from [facility] after CABG Patient reported having busy weekend , with visitors , emotional stress with her who has Alzheimer's , wanting to rest at night , taking narcotic given to her in the hospital and adding ULTRAM , Currently she is almost back to her baseline, however still slight difficulty thinking but this is minimally noted by even family Good attention expand Seems anxious and stress Has mild arthiritis limited full range of motion No other focal findings Normal fundus Patient MRI reviewed , small area of DWI changes, in the cortical region , this is actually a minimal finding considering she just had a CABG , but I think its real Possibilities , include small embolism , considering recent surgery raven procedural Patient at risk for raven - procedural PAF , NONE detected , but also possible, she woud need event monitor as outpatient Consider ECHO , ensure no issues after her surgery Contact CT surgery so they are aware of patient's admission Continue ALEC as she was already on She has Mallampati IV , consider MEG, this may also have contributed to her confusion particularly after the addition of [facility] [employer] suppressants The possibility that the minor cortical change could have been result from seizure focus is also there , suggest , EEG single 20 min and STOPPING ULTRAM Likely patient to be discharge tomorrow if no other new issues I personally interviewed and examined this patient , reviewed , corrected, agreed and attested the note for this patient. I reviewed the chart including MAR, labs, neuroimaging, other imaging studies and discussed my diagnostic impression and patient's plan of care with my CRISTIANO [x] Encounter Face to Face [x] Consult [x] Time spend [x] 80 [x] will continue to follow Personal discussion of test results and plan of care with: Family, Patient treatments and testing options informed consent and plan of care, Admitting Team, ., . Thank you PRAVEEN CRUM for the opportunity to be involved in this patient's care. [facility] 06-25-2025 Patient's home Note Formattin g of this note might be different from the original. Patient is currently active with [facility]. The patient is currently receiving SN/PT services through the agency. Special Effects Specialist to continue to follow. [facility] 06-25-2025 Hospital Discharg e instructions Dianelys Shook RN - 06/25/2025 7:30 AM EDT Refer to the Understanding Stroke Booklet given to you, written material provided to patient/family, addressing all signs & symptoms of a stroke, which are: sudden numbness or weakness of the face, arm or leg, especially on one side of the body sudden confusion sudden difficulty speaking or understanding sudden trouble seeing in one or both eyes sudden trouble walking,dizziness, loss of balance or coordination sudden severe headache with no known cause syncope or temporary loss of consciousness seizure Explained the need to call EMS ([phone]) immediately if signs & symptoms occur. Discussed medications that the patient is taking, will review medications again prior to discharge, risk factors, and the need for follow-up with a physician/MANAGER CONTRACT/PA after discharge. Dianelys Shook RN on 06/25/25 at 7:29 AM Discussed the patient s personal risk factors for Stroke /TIA with patient/family, and ways to reduce the risk for a recurrent stroke. Patient's personal risk factors which were identified are: [x] High blood pressure [x] High cholesterol [] Atrial fibrillation [] Diabetes [] Smoking/e-cigarettes/vaping [] Smokeless tobacco [] Overweight [] Lack of Exercise [] Sleep apnea [x] Prior heart disease or heart attack [] Excessive alcohol use [] Marijuana/cannabis use [] Illicit drug use [] Personal history of previous TIA or stroke [x] Family history of stroke or heart disease [] Carotid stenosis [] Heart failure [] Patent Foramen Ovale [] Migraine [] Hormone replacement therapy [] Current (up to six weeks post ) [] Depression [] Sickle Cell [] Renal insufficiency - chronic [] None Refer to Understanding Stroke Booklet. Advised patient that risk for stroke/TIA can be reduced by modifying/controlling risk factors. Patient advised to take medications as prescribed, which will be detailed in the discharge instructions, and to not stop taking them without consulting a physician. In addition, pt. advised to maintain a healthy diet, exercise regularly and to not smoke. Dianelys Shook RN on 06/25/25 at 7:29 AM Megha Craig RN - 06/26/2025 3:47 PM EDT Images from the original note were not included. Continuity of Care Form Patient Name: Richie Armas : 1950 Admit date: 06/24/2025 Discharge date: Code Status Order: Full Code Advance Directives: N Admitting Physician: Bertha Berger MD PCP: PRAVEEN CRUM Discharging Nurse: Discharging Hospital Unit/Room#: W3-333/W3-333 A Discharging Unit Phone Number: Emergency Contact: Extended Emergency Contact Information Primary Emergency Contact: Sean Armas Mobile Relation: Spouse Secondary Emergency Contact: All Armas Mobile Relation: Daughter Preferred language: Omani Revenue Research Analyst needed? No Past Surgical History: Past Surgical History: Procedure Laterality Date CORONARY ARTERY BYPASS GRAFT Immunization History: Immunization History Administered Date(s) Administered COVID-19, mRNA, LNP-S, PF, 50 mcg/0.5 mL 08/23/2023, 07/27/2024, 06/04/2025 Covid-19, Moderna Bivalent Booster, (Age 6y-11y) 09/21/2022 Covid-19, Pfizer Hopkins Top, Do Not Dilute, (Age 12 Y+), Im, L 03/26/2022 Moderna SARS-CoV-2 Vaccination 12/31/2020, 01/28/2021, 10/06/2021 Active Problems: Medical Problems Problem List * (Principal) Altered mental status, unspecified altered mental status type NSTEMI (non-ST elevation myocardial infarction) (HCC) Isolation/Infection: No active isolations No active infections Nurse Assessment: Last Vital Signs: BP 147/74 (BP Location: Right arm, Patient Position: Sitting) Pulse 76 Temp 36.8 C (98.3 F) (Temporal) Resp 18 Ht 1.6 m (5' 3) Wt 60.5 kg (133 lb 4.8 oz) SpO2 98% BMI 23.61 kg/m Last documented pain score (0-10 scale): Last Weight: Wt Readings from Last 1 Encounters: 06/25/25 60.5 kg (133 lb 4.8 oz) Mental Status: {KERI Patient Mental Status:93340} IV Access: {KERI IV Access:76787} Nursing Mobility/ADLs: Walking {SUNNY ADL:::Independent} Transfer {SUNNY ADL:::Independent} Bathing {SUNNY ADL:::Independent} Dressing {SUNNY ADL:::Independent} Toileting {SUNNY ADL:69285::Independent} Feeding {SUNNY ADL:::Independent} Insurance Claims Specialist {SUNNY ADL:17287::Independent} Med Delivery {yes/no:89706} Wound Care Documentation and Therapy: Wound/Incision 06/18/25 Incision Sternum (Active) Number of days: 8 Wound/Incision 06/18/25 Incision Calf Anterior;Left (Active) Number of days: 7 Elimination: Continence: Bowel: {yes/no:84714} Bladder: {yes/no:52678} Urinary Catheter: {KERI Urinary Catheter:70094} Colostomy/Ileostomy/Ileal Conduit: {YES / NO:81994} Date of Last BM: Intake/Output Summary (Last 24 hours) at 06/26/2025 1547 Last data filed at 06/26/2025 0415 Gross per 24 hour Intake 340 ml Output -- Net 340 ml I/O last 3 completed shifts: In: 1509.2 (25 mL/kg) [P.O.:840; I.V.:669.2 (11.1 mL/kg)] Out: - (0 mL/kg) Weight: 60.5 kg Safety Concerns: {KERI Safety Concerns:84434} Impairments/Disabilities: {KERI Impairments/Disabilities:06219} Nutrition Therapy: Current Nutrition Therapy: {KERI Diet List:55910} Routes of Feeding: {routes of feedin} Liquids: {liquid consistency:77447} Daily Fluid Restriction: {daily fluid restriction:99535} Last Modified Barium Swallow with Video (Video Swallowing Test): {done not done:63278} Treatments at the Time of Hospital Discharge: Respiratory Treatments: Oxygen Therapy: {Therapy; copd oxygen:05441} Ventilator: {KERI Ventilator:02267} Rehab Therapies: {GEN THERAPY DISCIPLINE SCAL:0950491} Weight Bearing Status/Restrictions: {POD WEIGHT BEARIN} Other Medical Equipment (for information only, NOT a DME order): {Assistive Devices DME:52403} Other Treatments: Patient's personal belongings (please select all that are sent with patient): {KERI Patient Belongings:40297} RN SIGNATURE: {E-signature:14637} CASE MANAGEMENT/SOCIAL WORK SECTION Inpatient Status Date: Discharging to Facility/ Agency Name: [facility] [employer], [facility] Address: [address] [place] [address] Dialysis Facility (if applicable) Name: Address: Dialysis Schedule: Phone: Fax: Heel Seat Trimmer/Conditioner Tumbler Operator signature: {E-signature:13559} PHYSICIAN SECTION Name: Richie Armas Prognosis: {Rehab Prognosis:98708} Condition at Discharge: {Patient Condition:24552} Rehab Potential (if transferring to Rehab): {Rehab Prognosis:30300} Recommended Labs or Other Treatments After Discharge: The individual is being admitted to a nursing facility directly from an [facility] or a unit of a [facility] that is not operated by or licensed by [facility] under section 5119.14 or 5160-3-15.1 5 The individual requires the level of services provided by a nursing facility for the condition for which he or she was treated in the hospital and, Physician Certification: I certify the above information and transfer of Richie Armas is necessary for the continuing treatment of the diagnosis listed and that she requires {KERI Level of Care:25581} for {greater less than:14935} 30 days. Update Admission H&P: {KERI Changes in H&P:63566} PHYSICIAN SIGNATURE: {E-signature:86013} documented in this encounter [facility] 06-25-2025 Note Care Management Prog ress Note Short Medical why still here: from home- re admission - recent CABG 06/18 , has pcp , script coverage and is home with . Home with [facility] . PT/OT neuro recs pending Planned Discharge Disposition: [facility] liaison notified via [facility] Barriers/Today we still Wait: Lath Hand recommendations (comment), Diagnostic workup Length of Stay (Days): 1 GMLOS: No GMLOS Documented [facility] 06-25-2025 Progress note Formatting of t his note might be different from the original. Care Management Progress Note Short Medical why still here: from home- re admission - recent CABG 06/18 , has pcp , script coverage and is home with . Home with [facility] . PT/OT neuro recs pending Planned Discharge Disposition: Home Health Services [facility] liaison notified via [facility] Barriers/Today we still Wait: Lath Hand recommendations (comment), Diagnostic workup Length of Stay (Days): 1 GMLOS: No GMLOS Documented [facility] 06-24-2025 Note Speech-Surgical Services Tech ology Patient passed the Nursing Swallowing Screening. As per stroke policy, no formal dysphagia evaluation is required. Completed speech orders. Tamiko Rodgers M.A. CCC-[employer] [facility] 06-24-2025 History and physical note Attending History and Physical Admit Date: 06/24/2025 PCP: PRAVEEN CRUM CHIEF COMPLAINT: [AMS and palpitations] Reason for Admission: [AMS3] History Obtained From: son and patient, EHR and ED HISTORY OF PRESENT ILLNESS: Richie is a 75 y.o. female with PMH of HLD, chronic low back pain s/p lumbar spinal surgery, IBS with constipation, GERD, fibromyalgia, hypothyroid,CKD 2, Raynaud's, anxiety depression, and recent CABG x3 on 06/18/2025 who presents with concerns of altered mental status, noted to have been more confused over the last few days and forgetful. Has been complaining of intermittent cramping after being started on therapy for his CABG and palpitations. ED findings: Afebrile, vital signs relatively stable,Labs largely unremarkable other than lactic acidosis 2.8. Concern for stroke was brought up and patient had a CTA head and neck in the ER as well as a CT head without contrast which did not show any acute intracranial process or LVO. No high-grade stenosis either.ED requesting medical admission for continued stroke workup. Vital signs: - T: 30 6.4F - HR: 70-90 bpm - BP: 150-160/70-80 mmHg - Sat: 100% RA Labs, Images, and Diagnostics: - CMP: Largely unremarkable - Na: 135 - K: 3.8 - Cl: 99 - Glu: 110 - Scr: 0.77 - CBC: Largely unremarkable - hgb: 10.1 improved from 06/21 - LA: 2.8 - HS trop: 82 and 76 respectively - TSH: 5.65 CTA head and neck:o large vessel occlusion or high-grade stenosis in the head or neck. 0% stenosis of the proximal cervical ICAs bilaterally by NASCET criteria. 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 CXR: mild interval decrease in small left apical pneumothorax now measuring up to 0.5 cm in thickness, previously 1 cm. Minimal streaky bibasilar opacities, likely atelectasis. No consolidation. No pleural effusion or sizable right pneumothorax. On evaluation, son is also at bedside. Reports that she was confused this morning. He was staying with her after her CABG. Patient has mostly been managing her medications by herself as well. He noted that she was feeling a little off yesterday and then this morning she seemed confused to him. Brought in given recent surgical intervention. Discussed admission for possible stroke rule out however low concern for actual stroke given no concern for acute neurologic issue other than AMS. Past Medical History: Medical History[1] Past Surgical History: Surgical History[2] Social History: Social History Socioeconomic History Marital status: Spouse name: Not on file Number of children: Not on file Years of education: Not on file Highest education level: Not on file Occupational History Not on file Tobacco Use Smoking status: Unknown Smokeless tobacco: Not on file Vaping Use Vaping status: Never Used Substance and Sexual Activity Alcohol use: Not on file Drug use: Not on file Sexual activity: Not on file Other Topics Concern Not on file Social History Narrative Not on file Social Drivers of Health Financial Resource Strain: Not on file Food Insecurity: Not on file Transportation Needs: Not on file Physical Activity: Not on file Stress: Not on file Social Connections: Not on file Intimate Partner Violence: Not At Risk (06/14/2025) Humiliation, Afraid, Rape, and Kick questionnaire Fear of Current or Ex-Partner: No Emotionally Abused: No Physically Abused: No Sexually Abused: No Housing Stability: Low Risk (06/14/2025) Housing Stability Vital Sign Unable to Pay for Housing in the Last Year: No Number of Times Moved in the Last Year: 0 Homeless in the Last Year: No Family History: Family History[3] Medications Prior to Admission: Current Medications[4] - Medications Reconciliation: Medication were reviewed and verified as accurate with patient. and Medications were reviewed in chart and verified as accurate by review of records with family and/or extended care facility Allergies: Allergies[5] REVIEW OF SYSTEMS: NEG with pert pos in HPI Vitals: BP (!) 152/71 Pulse 75 Temp 36.4 C (97.5 F) (Temporal) Resp 15 Ht 5' 3 (1.6 m) Wt 138 lb (62.6 kg) SpO2 99% BMI 24.45 kg/m BMI Classification: Body mass index is 24.45 kg/m . [Normal weight] Pulse Ox: SpO2 Av % Min: 98 % Max: 100 % Supplemental O2: PHYSICAL EXAM: Physical Exam Vitals reviewed. Constitutional: General: She is not in acute distress. Appearance: Normal appearance. She is not ill-appearing or toxic-appearing. HENT: Head: Normocephalic. Right Ear: External ear normal. Left Ear: External ear normal. Cardiovascular: Rate and Rhythm: Normal rate and regular rhythm. Heart sounds: Normal heart sounds. Pulmonary: Effort: Pulmonary effort is normal. No respiratory distress. Breath sounds: Normal breath sounds. No wheezing. Skin: Comments: Significant bruising on left lower extremity, surgical site clean dry and intact, FABIOLA hose on Neurological: Mental Status: She is alert. Comments: A bit repetitive with her sentences in the room Psychiatric: Mood and Affect: Mood normal. DATA: CBC: Recent Labs 06/22/25 0047 06/24/25 1013 WBC 7.5 7.8 RBC 2.76* 3.31* HGB 8.5* 10.1* HCT 25.8* 31.5* MCV 93.5 95.2 RDW 15.1* 14.9 PLT 133* 305 BMP: Recent Labs 06/22/25 0047 06/24/25 1013 NA 137 135* K 3.9 3.8 CL 103 99 CO2 22* 22* BUN 12 20 CREATININE 0.59 0.77 GLUCOSE 92 110 CALCIUM 8.6* 9.8 ANIONGAP 12 14* LIVER PROFILE: Recent Labs 06/24/25 1013 AST 39* ALT 11 BILITOT 0.7 ALKPHOS 80 PROT 7.4 PT/INR: No results for input(s): PROTIME, INR in the last 72 hours. CARDIAC ENZYMES: No results for input(s): TROPONINI in the last 72 hours. Procalcitonin: No results found for: PROCAL Urine Culture: No results found for this or any previous visit. COVID-19 PCR: No results for input(s): COVID19 in the last 72 hours. I reviewed: [x] laboratory results [x] radiographic results At the time of today's encounter. Pt was advised of the results. Data: Per HPI (LOW: 2x CAT1 or independent historian MOD: 3x CAT1 or 1x CAT3 EXTENSIVE: 3x CAT1 and 1x CAT3) Assessment Discussed management with the ED provider and agree with hospitalization. Acute, acute on chronic, unstable/uncontrolled chronic problems/diagnoses: AMS concern for possible acute stroke in the setting of recent CABG NSTEMI due to demand ischemia Lactic acidosis Mild hyperglycemia in type II diabetic Stable chronic problems affecting care, new non-acute diagnoses: Medical History[6] Plan As a result of the above findings & factors, the following mgmt was pursued: AMS concern for possible acute stroke in the setting of recent CABG NSTEMI due to demand ischemia Assessment: Patient with recent CABG 06/18 now coming in altered with concern for possible ischemic stroke. 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 - Permissive hypertension with SBP> 140 for now Lactic acidosis -Unclear etiology - Not given any fluids in ED, will start low rate fluids per stroke protocol - Follow-up repeat lactic acid Mild hyperglycemia in type II diabetic -Resume home medications based on chart review Other chronic medical issues as below - HLD, chronic low back pain s/p lumbar spinal surgery, IBS with constipation, GERD, fibromyalgia, hypothyroid,CKD 2, Raynaud's, anxiety depression, -Resume home meds as able - am labs, replace lytes prn - PT/OT/CM/SW - delirium precautions: increase activity - DVT prophylaxis: enoxaparin and encourage ambulation Complexity: Acute illness with systemic symptoms (MOD). Risk: Admission to hospital-level care was considered or occurred (HIGH). Advance Directive: Prior Anticipated Discharge - Date - [] - Location - tbd - Pending the following - improvement in acute issue leading to hosp Toxic drug monitoring/narrow therapeutic index drug monitoring : # Drug name : [na] # Route administered : N/A # Method of monitoring : N/A Extended Emergency Contact Information Primary Emergency Contact: Sean Armas Mobile Relation: Spouse Secondary Emergency Contact: All Armas Mobile Relation: Daughter Preferred language: Omani Revenue Research Analyst needed? No ------- TOTAL time spent on H&P: [75] minutes were spent discussing patient care for this admission (including face to face, chart review, including discussion with ED providers and/or review of their notes, labs and images). Comment: Please note that portions of the note for this encounter were entered using an speech recognition software and may contain errors related to that system including errors in grammar, punctuation, and spelling, as well as words and phrases that may be inappropriate. Best attempts were made to edit/proofread the information prior to note completion. Despite the review of information, some errors may remain. If there are questions related to the information contained within the note please contact the signing provider for clarification. Bertha Berger MD Division of Hospitalist Medicine [facility] [1] No past medical history on file. [2] No past surgical history on file. [3] No family history on file. [4] No current facility-administered medications for this encounter. Current Outpatient Medications: acetaminophen (Tylenol) 500 MG tablet, Take 2 tablets (1,000 mg) by mouth every 8 hours for 10 days., Disp: , Rfl: aspirin 81 MG chewable tablet, Chew 1 tablet (81 mg) daily., Disp: 30 tablet, Rfl: 1 clopidogrel (Plavix) 75 MG tablet, Take 1 tablet (75 mg) by mouth daily., Disp: 30 tablet, Rfl: 1 ezetimibe (Zetia) 10 MG tablet, Take 1 tablet (10 mg) by mouth Nightly., Disp: 30 tablet, Rfl: 1 furosemide (Lasix) 40 MG tablet, Take 1 tablet (40 mg) by mouth daily for 5 days., Disp: 5 tablet, Rfl: 0 levothyroxine (Synthroid, Levoxyl) 50 MCG tablet, Take 1 tablet (50 mcg) by mouth every morning (before breakfast)., Disp: 30 tablet, Rfl: 1 metoprolol succinate XL (Toprol-XL) 50 MG 24 hr tablet, Take 1 tablet (50 mg) by mouth daily. Do not crush or chew., Disp: 30 tablet, Rfl: 1 NIFEdipine XL (Procardia XL) 30 MG 24 hr tablet, Take 1 tablet (30 mg) by mouth daily. Do not crush, chew, or split., Disp: 30 tablet, Rfl: 1 oxyCODONE (Roxicodone) 5 MG immediate release tablet, Take 1 tablet (5 mg) by mouth every 6 hours as needed for severe pain (7-10) (acute post surgical pain) for up to 5 days., Disp: 20 tablet, Rfl: 0 potassium chloride CR (K-Tab) 20 MEQ ER tablet, Take 1 tablet (20 mEq) by mouth daily for 5 days. Do not crush, chew, or split., Disp: 5 tablet, Rfl: 0 rosuvastatin (Crestor) 40 MG tablet, Take 1 tablet (40 mg) by mouth daily., Disp: 30 tablet, Rfl: 1 [5] Allergies Allergen Reactions Flexeril [Cyclobenzaprine] Itching [6] No past medical history on file. [facility] 06-24-2025 History and physical note Attending History and Physical Admit Date: 06/24/2025 PCP: PRAVEEN CRUM CHIEF COMPLAINT: [AMS and palpitations] Reason for Admission: [AMS3] History Obtained From: son and patient, EHR and ED HISTORY OF PRESENT ILLNESS: Richie is a 75 y.o. female with PMH of HLD, chronic low back pain s/p lumbar spinal surgery, IBS with constipation, GERD, fibromyalgia, hypothyroid,CKD 2, Raynaud's, anxiety depression, and recent CABG x3 on 06/18/2025 who presents with concerns of altered mental status, noted to have been more confused over the last few days and forgetful. Has been complaining of intermittent cramping after being started on therapy for his CABG and palpitations. ED findings: Afebrile, vital signs relatively stable,Labs largely unremarkable other than lactic acidosis 2.8. Concern for stroke was brought up and patient had a CTA head and neck in the ER as well as a CT head without contrast which did not show any acute intracranial process or LVO. No high-grade stenosis either.ED requesting medical admission for continued stroke workup. Vital signs: - T: 30 6.4F - HR: 70-90 bpm - BP: 150-160/70-80 mmHg - Sat: 100% RA Labs, Images, and Diagnostics: - CMP: Largely unremarkable - Na: 135 - K: 3.8 - Cl: 99 - Glu: 110 - Scr: 0.77 - CBC: Largely unremarkable - hgb: 10.1 improved from 06/21 - LA: 2.8 - HS trop: 82 and 76 respectively - TSH: 5.65 CTA head and neck:o large vessel occlusion or high-grade stenosis in the head or neck. 0% stenosis of the proximal cervical ICAs bilaterally by NASCET criteria. 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 CXR: mild interval decrease in small left apical pneumothorax now measuring up to 0.5 cm in thickness, previously 1 cm. Minimal streaky bibasilar opacities, likely atelectasis. No consolidation. No pleural effusion or sizable right pneumothorax. On evaluation, son is also at bedside. Reports that she was confused this morning. He was staying with her after her CABG. Patient has mostly been managing her medications by herself as well. He noted that she was feeling a little off yesterday and then this morning she seemed confused to him. Brought in given recent surgical intervention. Discussed admission for possible stroke rule out however low concern for actual stroke given no concern for acute neurologic issue other than AMS. Past Medical History: Medical History[1] Past Surgical History: Surgical History[2] Social History: Social History Socioeconomic History Marital status: Spouse name: Not on file Number of children: Not on file Years of education: Not on file Highest education level: Not on file Occupational History Not on file Tobacco Use Smoking status: Unknown Smokeless tobacco: Not on file Vaping Use Vaping status: Never Used Substance and Sexual Activity Alcohol use: Not on file Drug use: Not on file Sexual activity: Not on file Other Topics Concern Not on file Social History Narrative Not on file Social Drivers of Health Financial Resource Strain: Not on file Food Insecurity: Not on file Transportation Needs: Not on file Physical Activity: Not on file Stress: Not on file Social Connections: Not on file Intimate Partner Violence: Not At Risk (06/14/2025) Humiliation, Afraid, Rape, and Kick questionnaire Fear of Current or Ex-Partner: No Emotionally Abused: No Physically Abused: No Sexually Abused: No Housing Stability: Low Risk (06/14/2025) Housing Stability Vital Sign Unable to Pay for Housing in the Last Year: No Number of Times Moved in the Last Year: 0 Homeless in the Last Year: No Family History: Family History[3] Medications Prior to Admission: Current Medications[4] - Medications Reconciliation: Medication were reviewed and verified as accurate with patient. and Medications were reviewed in chart and verified as accurate by review of records with family and/or extended care facility Allergies: Allergies[5] REVIEW OF SYSTEMS: NEG with pert pos in HPI Vitals: BP (!) 152/71 Pulse 75 Temp 36.4 C (97.5 F) (Temporal) Resp 15 Ht 5' 3 (1.6 m) Wt 138 lb (62.6 kg) SpO2 99% BMI 24.45 kg/m BMI Classification: Body mass index is 24.45 kg/m . [Normal weight] Pulse Ox: SpO2 Av % Min: 98 % Max: 100 % Supplemental O2: PHYSICAL EXAM: Physical Exam Vitals reviewed. Constitutional: General: She is not in acute distress. Appearance: Normal appearance. She is not ill-appearing or toxic-appearing. HENT: Head: Normocephalic. Right Ear: External ear normal. Left Ear: External ear normal. Cardiovascular: Rate and Rhythm: Normal rate and regular rhythm. Heart sounds: Normal heart sounds. Pulmonary: Effort: Pulmonary effort is normal. No respiratory distress. Breath sounds: Normal breath sounds. No wheezing. Skin: Comments: Significant bruising on left lower extremity, surgical site clean dry and intact, FABIOLA hose on Neurological: Mental Status: She is alert. Comments: A bit repetitive with her sentences in the room Psychiatric: Mood and Affect: Mood normal. DATA: CBC: Recent Labs 06/22/25 0047 06/24/25 1013 WBC 7.5 7.8 RBC 2.76* 3.31* HGB 8.5* 10.1* HCT 25.8* 31.5* MCV 93.5 95.2 RDW 15.1* 14.9 PLT 133* 305 BMP: Recent Labs 06/22/25 0047 06/24/25 1013 NA 137 135* K 3.9 3.8 CL 103 99 CO2 22* 22* BUN 12 20 CREATININE 0.59 0.77 GLUCOSE 92 110 CALCIUM 8.6* 9.8 ANIONGAP 12 14* LIVER PROFILE: Recent Labs 06/24/25 1013 AST 39* ALT 11 BILITOT 0.7 ALKPHOS 80 PROT 7.4 PT/INR: No results for input(s): PROTIME, INR in the last 72 hours. CARDIAC ENZYMES: No results for input(s): TROPONINI in the last 72 hours. Procalcitonin: No results found for: PROCAL Urine Culture: No results found for this or any previous visit. COVID-19 PCR: No results for input(s): COVID19 in the last 72 hours. I reviewed: [x] laboratory results [x] radiographic results At the time of today's encounter. Pt was advised of the results. Data: Per HPI (LOW: 2x CAT1 or independent historian MOD: 3x CAT1 or 1x CAT3 EXTENSIVE: 3x CAT1 and 1x CAT3) Assessment Discussed management with the ED provider and agree with hospitalization. Acute, acute on chronic, unstable/uncontrolled chronic problems/diagnoses: AMS concern for possible acute stroke in the setting of recent CABG NSTEMI due to demand ischemia Lactic acidosis Mild hyperglycemia in type II diabetic Stable chronic problems affecting care, new non-acute diagnoses: Medical History[6] Plan As a result of the above findings & factors, the following mgmt was pursued: AMS concern for possible acute stroke in the setting of recent CABG NSTEMI due to demand ischemia Assessment: Patient with recent CABG 06/18 now coming in altered with concern for possible ischemic stroke. 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 - Permissive hypertension with SBP> 140 for now Lactic acidosis -Unclear etiology - Not given any fluids in ED, will start low rate fluids per stroke protocol - Follow-up repeat lactic acid Mild hyperglycemia in type II diabetic -Resume home medications based on chart review Other chronic medical issues as below - HLD, chronic low back pain s/p lumbar spinal surgery, IBS with constipation, GERD, fibromyalgia, hypothyroid,CKD 2, Raynaud's, anxiety depression, -Resume home meds as able - am labs, replace lytes prn - PT/OT/CM/SW - delirium precautions: increase activity - DVT prophylaxis: enoxaparin and encourage ambulation Complexity: Acute illness with systemic symptoms (MOD). Risk: Admission to hospital-level care was considered or occurred (HIGH). Advance Directive: Prior Anticipated Discharge - Date - [] - Location - tbd - Pending the following - improvement in acute issue leading to hosp Toxic drug monitoring/narrow therapeutic index drug monitoring : # Drug name : [na] # Route administered : N/A # Method of monitoring : N/A Extended Emergency Contact Information Primary Emergency Contact: Sean Armas Mobile Relation: Spouse Secondary Emergency Contact: All Armas Mobile Relation: Daughter Preferred language: Omani Revenue Research Analyst needed? No ------- TOTAL time spent on H&P: [75] minutes were spent discussing patient care for this admission (including face to face, chart review, including discussion with ED providers and/or review of their notes, labs and images). Comment: Please note that portions of the note for this encounter were entered using an speech recognition software and may contain errors related to that system including errors in grammar, punctuation, and spelling, as well as words and phrases that may be inappropriate. Best attempts were made to edit/proofread the information prior to note completion. Despite the review of information, some errors may remain. If there are questions related to the information contained within the note please contact the signing provider for clarification. Bertha Berger MD Division of Hospitalist Medicine [facility] [1] No past medical history on file. [2] No past surgical history on file. [3] No family history on file. [4] No current facility-administered medications for this encounter. Current Outpatient Medications: acetaminophen (Tylenol) 500 MG tablet, Take 2 tablets (1,000 mg) by mouth every 8 hours for 10 days., Disp: , Rfl: aspirin 81 MG chewable tablet, Chew 1 tablet (81 mg) daily., Disp: 30 tablet, Rfl: 1 clopidogrel (Plavix) 75 MG tablet, Take 1 tablet (75 mg) by mouth daily., Disp: 30 tablet, Rfl: 1 ezetimibe (Zetia) 10 MG tablet, Take 1 tablet (10 mg) by mouth Nightly., Disp: 30 tablet, Rfl: 1 furosemide (Lasix) 40 MG tablet, Take 1 tablet (40 mg) by mouth daily for 5 days., Disp: 5 tablet, Rfl: 0 levothyroxine (Synthroid, Levoxyl) 50 MCG tablet, Take 1 tablet (50 mcg) by mouth every morning (before breakfast)., Disp: 30 tablet, Rfl: 1 metoprolol succinate XL (Toprol-XL) 50 MG 24 hr tablet, Take 1 tablet (50 mg) by mouth daily. Do not crush or chew., Disp: 30 tablet, Rfl: 1 NIFEdipine XL (Procardia XL) 30 MG 24 hr tablet, Take 1 tablet (30 mg) by mouth daily. Do not crush, chew, or split., Disp: 30 tablet, Rfl: 1 oxyCODONE (Roxicodone) 5 MG immediate release tablet, Take 1 tablet (5 mg) by mouth every 6 hours as needed for severe pain (7-10) (acute post surgical pain) for up to 5 days., Disp: 20 tablet, Rfl: 0 potassium chloride CR (K-Tab) 20 MEQ ER tablet, Take 1 tablet (20 mEq) by mouth daily for 5 days. Do not crush, chew, or split., Disp: 5 tablet, Rfl: 0 rosuvastatin (Crestor) 40 MG tablet, Take 1 tablet (40 mg) by mouth daily., Disp: 30 tablet, Rfl: 1 [5] Allergies Allergen Reactions Flexeril [Cyclobenzaprine] Itching [6] No past medical history on file. documented in this encounter [facility] 06-24-2025 Note Attending History an d Physical Admit Date: 06/24/2025 PCP: PRAVEEN CRUM CHIEF COMPLAINT: [AMS and palpitations] Reason for Admission: [AMS3] History Obtained From: son and patient, EHR and ED HISTORY OF PRESENT ILLNESS: Richie is a 75 y.o. female with PMH of HLD, chronic low back pain s/p lumbar spinal surgery, IBS with constipation, GERD, fibromyalgia, hypothyroid,CKD 2, Raynaud's, anxiety depression, and recent CABG x3 on 06/18/2025 who presents with concerns of altered mental status, noted to have been more confused over the last few days and forgetful. Has been complaining of intermittent cramping after being started on therapy for his CABG and palpitations. ED findings: Afebrile, vital signs relatively stable,Labs largely unremarkable other than lactic acidosis 2.8. Concern for stroke was brought up and patient had a CTA head and neck in the ER as well as a CT head without contrast which did not show any acute intracranial process or LVO. No high-grade stenosis either.ED requesting medical admission for continued stroke workup. Vital signs: - T: 30 6.4F - HR: 70-90 bpm - BP: 150-160/70-80 mmHg - Sat: 100% RA Labs, Images, and Diagnostics: - CMP: Largely unremarkable - Na: 135 - K: 3.8 - Cl: 99 - Glu: 110 - Scr: 0.77 - CBC: Largely unremarkable - hgb: 10.1 improved from 06/21 - LA: 2.8 - HS trop: 82 and 76 respectively - TSH: 5.65 CTA head and neck:o large vessel occlusion or high-grade stenosis in the head or neck. 0% stenosis of the proximal cervical ICAs bilaterally by NASCET criteria. 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 CXR: mild interval decrease in small left apical pneumothorax now measuring up to 0.5 cm in thickness, previously 1 cm. Minimal streaky bibasilar opacities, likely atelectasis. No consolidation. No pleural effusion or sizable right pneumothorax. On evaluation, son is also at bedside. Reports that she was confused this morning. He was staying with her after her CABG. Patient has mostly been managing her medications by herself as well. He noted that she was feeling a little off yesterday and then this morning she seemed confused to him. Brought in given recent surgical intervention. Discussed admission for possible stroke rule out however low concern for actual stroke given no concern for acute neurologic issue other than AMS. Past Medical History: Medical History[1] Past Surgical History: Surgical History[2] Social History: Social History Socioeconomic History Marital status: Spouse name: Not on file Number of children: Not on file Years of education: Not on file Highest education level: Not on file Occupational History Not on file Tobacco Use Smoking status: Unknown Smokeless tobacco: Not on file Vaping Use Vaping status: Never Used Substance and Sexual Activity Alcohol use: Not on file Drug use: Not on file Sexual activity: Not on file Other Topics Concern Not on file Social History Narrative Not on file Social Drivers of Health Financial Resource Strain: Not on file Food Insecurity: Not on file Transportation Needs: Not on file Physical Activity: Not on file Stress: Not on file Social Connections: Not on file Intimate Partner Violence: Not At Risk (06/14/2025) Humiliation, Afraid, Rape, and Kick questionnaire Fear of Current or Ex-Partner: No Emotionally Abused: No Physically Abused: No Sexually Abused: No Housing Stability: Low Risk (06/14/2025) Housing Stability Vital Sign Unable to Pay for Housing in the Last Year: No Number of Times Moved in the Last Year: 0 Homeless in the Last Year: No Family History: Family History[3] Medications Prior to Admission: Current Medications[4] - Medications Reconciliation: Medication were reviewed and verified as accurate with patient. and Medications were reviewed in chart and verified as accurate by review of records with family and/or extended care facility Allergies: Allergies[5] REVIEW OF SYSTEMS: NEG with pert pos in HPI Vitals: BP (!) 152/71 Pulse 75 Temp 36.4 ?C (97.5 ?F) (Temporal) Resp 15 Ht 5' 3 (1.6 m) Wt 138 lb (62.6 kg) SpO2 99% BMI 24.45 kg/m? BMI Classification: Body mass index is 24.45 kg/m?. [Normal weight] Pulse Ox: SpO2 Av % Min: 98 % Max: 100 % Supplemental O2: PHYSICAL EXAM: Physical Exam Vitals reviewed. Constitutional: General: She is not in acute distress. Appearance: Normal appearance. She is not ill-appearing or toxic-appearing. HENT: Head: Normocephalic. Right Ear: External ear normal. Left Ear: External ear normal. Cardiovascular: Rate and Rhythm: Normal rate and regular rhythm. Heart sounds: Normal heart sounds. Pulmonary: Effort: Pulmonary effort is normal. No respiratory distress. Breath sounds: Normal breath sounds. No wheezing. Skin: Comments: Significant bruising on left lower extremity, surgical site clean dry and (more content not included)... [facility] 06-24-2025 Emergency department Note Emergency Department Encounter [facility] EMERGENCY DEPT Patient: Richie Armas : 1950 Date of Evaluation: 06/24/2025 ED [facility] Provider: Lucho Longoria PA-C EDcare was supervised by Dr. Tineo who independently examined and evaluated the patient. Please see their attestation note for further details. Chief Complaint Chief Complaint Patient presents with Altered Mental Status Pt had open heart on 06/18, Patient c/o heart palpations, acid reflex flare and confusion for a few days. FORD Armas is a 75 y.o. female who presents to the emergency department for altered mental status. Recently had CABG on 06/18/2025. Has been more confused for the past few days and forgetful. Also has been intermittent cramping. Recently started statin. Also has been having palpitations. Denies any chest pain or shortness of breath. Limitations to history: None Outside historians: EMR Past History Medical History[1] Surgical History[2] Social History[3] Medications/Allergies Previous Medications ACETAMINOPHEN (TYLENOL) 500 MG TABLET Take 2 tablets (1,000 mg) by mouth every 8 hours for 10 days. ASPIRIN 81 MG CHEWABLE TABLET Chew 1 tablet (81 mg) daily. CLOPIDOGREL (PLAVIX) 75 MG TABLET Take 1 tablet (75 mg) by mouth daily. EZETIMIBE (ZETIA) 10 MG TABLET Take 1 tablet (10 mg) by mouth Nightly. FUROSEMIDE (LASIX) 40 MG TABLET Take 1 tablet (40 mg) by mouth daily for 5 days. LEVOTHYROXINE (SYNTHROID, LEVOXYL) 50 MCG TABLET Take 1 tablet (50 mcg) by mouth every morning (before breakfast). METOPROLOL SUCCINATE XL (TOPROL-XL) 50 MG 24 HR TABLET Take 1 tablet (50 mg) by mouth daily. Do not crush or chew. NIFEDIPINE XL (PROCARDIA XL) 30 MG 24 HR TABLET Take 1 tablet (30 mg) by mouth daily. Do not crush, chew, or split. OXYCODONE (ROXICODONE) 5 MG IMMEDIATE RELEASE TABLET Take 1 tablet (5 mg) by mouth every 6 hours as needed for severe pain (7-10) (acute post surgical pain) for up to 5 days. POTASSIUM CHLORIDE CR (K-TAB) 20 MEQ ER TABLET Take 1 tablet (20 mEq) by mouth daily for 5 days. Do not crush, chew, or split. ROSUVASTATIN (CRESTOR) 40 MG TABLET Take 1 tablet (40 mg) by mouth daily. Allergies[4] Physical Exam BP (!) 168/74 Pulse 79 Temp 36.4 C (97.5 F) (Temporal) Resp 16 Ht 1.6 m (5' 3) Wt 62.6 kg (138 lb) SpO2 97% BMI 24.45 kg/m Physical Exam GENERAL APPEARANCE: Awake. HEENT: Normocephalic. Atraumatic. No trismus. NECK: Supple. Trachea midline. CARDIO: Normal rate. Radial pulses symmetrical and palpable LUNGS: Respirations unlabored. CTAB. ABDOMEN: Soft. Non-distended. Non-tender throughout. MUSCULOSKELETAL: No acute deformities. SKIN: Warm and dry. NEUROLOGICAL: NIH 1. SCREENINGS D Labs: Results for orders placed or performed during the hospital encounter of 06/24/25 ECG 12 lead Collection Time: 06/24/25 9:52 AM Result Value Ref Range Heart Rate 80 bpm QRSD Interval 103 ms QT Interval 407 ms QTC Interval 462 ms P [place] 42 degrees QRS [place] 85 degrees T Wave [place] 0 degrees [place] Interval 160 ms CBC auto differential Collection Time: 06/24/25 10:13 AM Result Value Ref Range Auto WBC 7.8 3.6 - 10.7 10*3/uL RBC 3.31 (L) 3.80 - 5.20 10*6/uL Hemoglobin 10.1 (L) 11.7 - 16.0 g/dL Hematocrit 31.5 (L) 35.0 - 47.0 % MCV 95.2 77.0 - 99.0 fL MCH 30.5 26.0 - 34.0 pg MCHC 32.1 30.5 - 36.0 % RDW 14.9 11.5 - 15.0 % Platelets 305 140 - 440 10*3/uL MPV 11.1 9.0 - 12.7 fL nRBC 0.0 0.0 - 2.0 /100 WBCs Neutrophils Relative 45.7 38.0 - 82.0 % Lymphocytes Relative 35.5 15.0 - 45.0 % Monocytes Relative 14.6 (H) 5.0 - 13.0 % Eosinophils Relative 2.8 0.0 - 6.0 % Basophils Relative 0.6 0.0 - 2.0 % Immature Grans % 0.8 0.0 - 2.0 % Neutrophils Absolute 3.6 1.8 - 7.5 10*3/uL Lymphocytes Absolute 2.8 1.0 - 4.3 10*3/uL Monocytes Absolute 1.1 (H) 0.0 - 0.9 10*3/uL Eosinophils Absolute 0.2 0.0 - 0.5 10*3/uL Basophils Absolute 0.1 0.0 - 0.2 10*3/uL Immature Grans Absolute 0.1 (H) <0.1 10*3/uL Comprehensive metabolic panel Collection Time: 06/24/25 10:13 AM Result Value Ref Range SODIUM 135 (L) 136 - 145 mmol/L POTASSIUM 3.8 3.5 - 5.1 mmol/L CHLORIDE 99 98 - 107 mmol/L CARBON DIOXIDE 22 (L) 23 - 31 mmol/L ANION GAP 14 (H) 3 - 13 mmol/L UREA NITROGEN 20 9 - 23 mg/dL CREATININE 0.77 0.57 - 1.11 mg/dL GLUCOSE 110 82 - 115 mg/dL CALCIUM 9.8 8.8 - 10.0 mg/dL AST (SGOT) 39 (H) <34 U/L ALT 11 <30 U/L ALKALINE PHOSPHATASE 80 40 - 150 U/L ALBUMIN 4.1 3.4 - 4.8 g/dL BILIRUBIN, TOTAL 0.7 <1.2 mg/dL TOTAL PROTEIN 7.4 6.4 - 8.3 g/dL eGFR 81.1 >60.0 mL/min/1.73m*2 CPK Collection Time: 06/24/25 10:13 AM Result Value Ref Range CK 156 30 - 185 U/L Lactic acid with reflex Collection Time: 06/24/25 10:13 AM Result Value Ref Range LACTIC ACID 2.8 (H) 0.5 - 2.2 mmol/L Serial Troponin, High Sensitivity Collection Time: 06/24/25 10:13 AM Result Value Ref Range Troponin HS Serial Baseline 82 (H) <=14 ng/L TSH Collection Time: 06/24/25 10:13 AM Result Value Ref Range THYROID STIMULATING HORMONE 5.65 (H) 0.35 - 4.94 uIU/mL CKMB Collection Time: 06/24/25 10:13 AM Result Value Ref Range CKMB 3.1 <=3.4 ng/mL RELATIVE INDEX 2.0 <=3.0 % POCT glucose meter Collection Time: 06/24/25 10:18 AM Result Value Ref Range Glucose 113 (H) 70 - 100 mg/dL Troponin, High Sensitivity, Serial, Second Test Collection Time: 06/24/25 12:37 PM Result Value Ref Range 2h Troponin HS (Serial 2nd Troponin) 76 (H) <=14 ng/L Magnesium Collection Time: 06/24/25 12:37 PM Result Value Ref Range MAGNESIUM 2.1 1.6 - 2.6 mg/dL T3, free Collection Time: 06/24/25 12:37 PM Result Value Ref Range T3, FREE 1.89 1.58 - 3.91 pg/mL Lactic acid with reflex Collection Time: 06/24/25 2:33 PM Result Value Ref Range LACTIC ACID 2.0 0.5 - 2.2 mmol/L Troponin, Serial, Third Test Collection Time: 06/24/25 2:33 PM Result Value Ref Range 4h Troponin HS (Serial 3rd Troponin) 73 (H) <=14 ng/L T4, free Collection Time: 06/24/25 2:33 PM Result Value Ref Range FREE T4 0.87 0.70 - 1.48 ng/dL Complete Urinalysis with reflex to Culture Collection Time: 06/24/25 2:42 PM Result Value Ref Range Color, Urine Colorless Lt. Yellow Clarity, Urine Clear Clear pH, Urine 7.0 5.0 - 8.0 pH Leukocytes, Urine Negative Negative Pancho/uL Nitrite, Urine Negative Negative Protein, Urine Negative Negative mg/dL Glucose, Urine Normal Normal (<70) mg/dL Bilirubin, Urine Negative Negative mg/dL Ketones, Urine Trace (A) Negative mg/dL Urobilinogen, Urine Normal Normal (0-1) mg/dL Blood, Urine Negative Negative mg/dL SPECIFIC GRAVITY OF URINE (NUMERIC) 1.036 (H) 1.005 - 1.030 Radiographs: CT head wo IV contrast Final Result CT: No CT evidence of acute abnormality. CTA: No large vessel occlusion or high-grade stenosis in the head or neck. 0% stenosis of the proximal cervical ICAs bilaterally by NASCET criteria. 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 Report Dictated on Electronically Signed By: Delvis Morin MD Electronically Signed Date/Time: 06/24/2025 11:14 AM EDT CTA head neck angio w and wo IV contrast Final Result CT: No CT evidence of acute abnormality. CTA: No large vessel occlusion or high-grade stenosis in the head or neck. 0% stenosis of the proximal cervical ICAs bilaterally by NASCET criteria. 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 Report Dictated on Electronically Signed By: Delvis Morin MD Electronically Signed Date/Time: 06/24/2025 11:14 AM EDT XR chest 1 view Final Result Lines, tubes, and devices:None. Lungs and pleura: Mild interval decrease in small left apical pneumothorax now measuring up to 0.5 cm in thickness, previously 1 cm. Minimal streaky bibasilar opacities, likely atelectasis. No consolidation. No pleural effusion or sizable right pneumothorax. Cardiomediastinal silhouette: Stable cardiomediastinal silhouette.Atherosclerotic calcifications of the aortic archStatus post median sternotomy for presumed CABG. Other: Degenerative changes of the spine and shoulders. Report Dictated on Electronically Signed By: Delvis Morin MD Electronically Signed Date/Time: 06/24/2025 9:57 AM EDT MR brain wo contrast (Results Pending) : EKG: All EKG's areinterpreted by the Emergency Department Physician in the absence of a night worker. see their note for interpretation of EKG. EMERGENCY DEPARTMENT COURSE and DIFFERENTIAL DIAGNOSIS/MDM: External Records Review: Reviewed Care Everywhere Social Determinants of Health: none. Richie Armas is a 75 y.o. female who presented to the emergency department for altered mental status, palpitations and cramping. Differential diagnosis included ACS, arrhythmia, UTI, rhabdomyolysis. Our workup consisted of ordering/reviewing CBC, CMP, CT head, CK, EKG, troponin, TSH, UA, lactic and showed troponin elevated. Chest xray as interpreted by me and confirmed by radiologist showed decrease pneumothorax. CT head showed no ICH. Will admit for additional workup. CONSULTS: IP CONSULT TO CASE MANAGEMENT PROCEDURES: Unless otherwise noted below, none Procedures DISPOSITION/PLAN Admit 06/24/2025 01:04:07 PM PATIENT REFERRED TO: No follow-up provider specified. DISCHARGE MEDICATIONS: New Prescriptions No medications on file @[facility]([id number]:1)@ (Please note: Portions of this note were completed with a voice recognition program. Efforts were made to edit the dictations but occasionally words and phrases are mis-transcribed.) Form [id number] Lucho Longoria PA-C [employer] [1] No past medical history on file. [2] No past surgical history on file. [3] Social History Socioeconomic History Marital status: Tobacco Use Smoking status: Unknown Vaping Use Vaping status: Never Used Social Drivers of GTRAN Intimate Partner Violence: Not At Risk (06/14/2025) Humiliation, Afraid, Rape, and Kick questionnaire Fear of Current or Ex-Partner: No Emotionally Abused: No Physically Abused: No Sexually Abused: No Housing Stability: Low Risk (06/14/2025) Housing Stability Vital Sign Unable to Pay for Housing in the Last Year: No Number of Times Moved in the Last Year: 0 Homeless in the Last Year: No [4] Allergies Allergen Reactions Flexeril [Cyclobenzaprine] Itching Lucho Longoria PA-C 06/24/25 [id number] Cosigned by Gokul Tineo DO at 06/25/2025 7:07 AM EDT Emergency Department Encounter [facility] EMERGENCY DEPT Patient: Richie Armas : 1950 Date of Evaluation: 06/24/2025 ED Supervising Physician: Gokul Tineo DO I personally saw Richie Armas and made/approved the management plan and take responsibility for the patient management. This will serve as my Supervisory note and shared attestation. I did perform a substantive portion of the visit including all aspects of the Medical Decision Making. I wore appropriate PPE for the entirety of this encounter. In brief, Richie Armas is a 75 y.o. with recent left heart cath with multivessel disease status post CABG on 06/18/2025 that presents to the emergency department for confusion. Patient reports that she has been more confused over the past couple of days. Reports she is forgetting what she is doing in the moment and at times feels like she is zoning out. Patient reports right sided neck pain where they accessed her with the [place] catheter. Denies fever/chills, nausea/vomiting, paresthesias, weakness. Patient reports midsternal burning-like sensation that she describes as a typical chest pain. Denies associated dyspnea, lower extremity swelling, cough. Focused exam: Gen NAD Heart RRR Lungs CTA Neck no posterior neck TTP. R sided anterior ecchymosis Chest well healing incision with no surrounding erythema induration or purulence Neuro alert and oriented x 3. Cranial nerve II through XII intact. Face symmetric. Normal speech. Decreased sensation to light touch in left upper extremity and left lower extremity. Strength 5/5 bilateral upper and lower extremity. Normal finger-nose bilaterally Brief ED course/MDM: Upon arrival to the ED, patient afebrile, hemodynamically stable and saturating well on room air. NIH of 1 with unclear last known well as patient has been feeling more confused over the past couple of days. Given last known well unclear and likely a couple of days per family and patient, code stroke was not activated. High-sensitivity troponin elevated at 82, however I suspect likely would be elevated in setting of recent CABG. Given patient has no pain at this time right now, will repeat and trend. EKG with no ischemic changes compared to prior. Imaging negative for acute intracranial abnormality. CTA with no large vessel occlusion or high-grade stenosis in the head or neck. CXR Mild interval decrease in small left apical pneumothorax now measuring up to 0.5 cm in thickness, previously 1 cm. Patient admitted to medicine for further MRI/MRI and workup. Total critical care time today provided was at least 40 minutes. This excludes seperately billable procedure. Critical care time provided that required close evaluation and/or intervention with concern for patient decompensation. All diagnostic, treatment, and disposition decisions were made by myself in conjunction with the [facility]. For all further details of the patient's emergency department visit, please see their documentation. (Comment: Please note this report has been produced using speech recognition software and may contain errors related to that system including errors in grammar, punctuation, and spelling, as well as words and phrases that may be inappropriate. If there are any questions or concerns please feel free to contact the dictating provider for clarification.) Gokul iTneo DO [employer] Gokul Tineo DO 06/25/25 0722 documented in this encounter [facility] 06-24-2025 Physician Emergen cy department Note Emergency Department Encounter [facility] EMERGENCY DEPT Patient: Richie Armas : 1950 Date of Evaluation: 06/24/2025 ED [facility] Provider: Lucho Longoria PA-C EDcare was supervised by Dr. Tineo who independently examined and evaluated the patient. Please see their attestation note for further details. Chief Complaint Chief Complaint Patient presents with Altered Mental Status Pt had open heart on 06/18, Patient c/o heart palpations, acid reflex flare and confusion for a few days. FORD Armas is a 75 y.o. female who presents to the emergency department for altered mental status. Recently had CABG on 06/18/2025. Has been more confused for the past few days and forgetful. Also has been intermittent cramping. Recently started statin. Also has been having palpitations. Denies any chest pain or shortness of breath. Limitations to history: None Outside historians: EMR Past History Medical History[1] Surgical History[2] Social History[3] Medications/Allergies Previous Medications ACETAMINOPHEN (TYLENOL) 500 MG TABLET Take 2 tablets (1,000 mg) by mouth every 8 hours for 10 days. ASPIRIN 81 MG CHEWABLE TABLET Chew 1 tablet (81 mg) daily. CLOPIDOGREL (PLAVIX) 75 MG TABLET Take 1 tablet (75 mg) by mouth daily. EZETIMIBE (ZETIA) 10 MG TABLET Take 1 tablet (10 mg) by mouth Nightly. FUROSEMIDE (LASIX) 40 MG TABLET Take 1 tablet (40 mg) by mouth daily for 5 days. LEVOTHYROXINE (SYNTHROID, LEVOXYL) 50 MCG TABLET Take 1 tablet (50 mcg) by mouth every morning (before breakfast). METOPROLOL SUCCINATE XL (TOPROL-XL) 50 MG 24 HR TABLET Take 1 tablet (50 mg) by mouth daily. Do not crush or chew. NIFEDIPINE XL (PROCARDIA XL) 30 MG 24 HR TABLET Take 1 tablet (30 mg) by mouth daily. Do not crush, chew, or split. OXYCODONE (ROXICODONE) 5 MG IMMEDIATE RELEASE TABLET Take 1 tablet (5 mg) by mouth every 6 hours as needed for severe pain (7-10) (acute post surgical pain) for up to 5 days. POTASSIUM CHLORIDE CR (K-TAB) 20 MEQ ER TABLET Take 1 tablet (20 mEq) by mouth daily for 5 days. Do not crush, chew, or split. ROSUVASTATIN (CRESTOR) 40 MG TABLET Take 1 tablet (40 mg) by mouth daily. Allergies[4] Physical Exam BP (!) 168/74 Pulse 79 Temp 36.4 C (97.5 F) (Temporal) Resp 16 Ht 1.6 m (5' 3) Wt 62.6 kg (138 lb) SpO2 97% BMI 24.45 kg/m Physical Exam GENERAL APPEARANCE: Awake. HEENT: Normocephalic. Atraumatic. No trismus. NECK: Supple. Trachea midline. CARDIO: Normal rate. Radial pulses symmetrical and palpable LUNGS: Respirations unlabored. CTAB. ABDOMEN: Soft. Non-distended. Non-tender throughout. MUSCULOSKELETAL: No acute deformities. SKIN: Warm and dry. NEUROLOGICAL: NIH 1. SCREENINGS D Labs: Results for orders placed or performed during the hospital encounter of 06/24/25 ECG 12 lead Collection Time: 06/24/25 9:52 AM Result Value Ref Range Heart Rate 80 bpm QRSD Interval 103 ms QT Interval 407 ms QTC Interval 462 ms P [place] 42 degrees QRS [place] 85 degrees T Wave [place] 0 degrees [place] Interval 160 ms CBC auto differential Collection Time: 06/24/25 10:13 AM Result Value Ref Range Auto WBC 7.8 3.6 - 10.7 10*3/uL RBC 3.31 (L) 3.80 - 5.20 10*6/uL Hemoglobin 10.1 (L) 11.7 - 16.0 g/dL Hematocrit 31.5 (L) 35.0 - 47.0 % MCV 95.2 77.0 - 99.0 fL MCH 30.5 26.0 - 34.0 pg MCHC 32.1 30.5 - 36.0 % RDW 14.9 11.5 - 15.0 % Platelets 305 140 - 440 10*3/uL MPV 11.1 9.0 - 12.7 fL nRBC 0.0 0.0 - 2.0 /100 WBCs Neutrophils Relative 45.7 38.0 - 82.0 % Lymphocytes Relative 35.5 15.0 - 45.0 % Monocytes Relative 14.6 (H) 5.0 - 13.0 % Eosinophils Relative 2.8 0.0 - 6.0 % Basophils Relative 0.6 0.0 - 2.0 % Immature Grans % 0.8 0.0 - 2.0 % Neutrophils Absolute 3.6 1.8 - 7.5 10*3/uL Lymphocytes Absolute 2.8 1.0 - 4.3 10*3/uL Monocytes Absolute 1.1 (H) 0.0 - 0.9 10*3/uL Eosinophils Absolute 0.2 0.0 - 0.5 10*3/uL Basophils Absolute 0.1 0.0 - 0.2 10*3/uL Immature Grans Absolute 0.1 (H) <0.1 10*3/uL Comprehensive metabolic panel Collection Time: 06/24/25 10:13 AM Result Value Ref Range SODIUM 135 (L) 136 - 145 mmol/L POTASSIUM 3.8 3.5 - 5.1 mmol/L CHLORIDE 99 98 - 107 mmol/L CARBON DIOXIDE 22 (L) 23 - 31 mmol/L ANION GAP 14 (H) 3 - 13 mmol/L UREA NITROGEN 20 9 - 23 mg/dL CREATININE 0.77 0.57 - 1.11 mg/dL GLUCOSE 110 82 - 115 mg/dL CALCIUM 9.8 8.8 - 10.0 mg/dL AST (SGOT) 39 (H) <34 U/L ALT 11 <30 U/L ALKALINE PHOSPHATASE 80 40 - 150 U/L ALBUMIN 4.1 3.4 - 4.8 g/dL BILIRUBIN, TOTAL 0.7 <1.2 mg/dL TOTAL PROTEIN 7.4 6.4 - 8.3 g/dL eGFR 81.1 >60.0 mL/min/1.73m*2 CPK Collection Time: 06/24/25 10:13 AM Result Value Ref Range CK 156 30 - 185 U/L Lactic acid with reflex Collection Time: 06/24/25 10:13 AM Result Value Ref Range LACTIC ACID 2.8 (H) 0.5 - 2.2 mmol/L Serial Troponin, High Sensitivity Collection Time: 06/24/25 10:13 AM Result Value Ref Range Troponin HS Serial Baseline 82 (H) <=14 ng/L TSH Collection Time: 06/24/25 10:13 AM Result Value Ref Range THYROID STIMULATING HORMONE 5.65 (H) 0.35 - 4.94 uIU/mL CKMB Collection Time: 06/24/25 10:13 AM Result Value Ref Range CKMB 3.1 <=3.4 ng/mL RELATIVE INDEX 2.0 <=3.0 % POCT glucose meter Collection Time: 06/24/25 10:18 AM Result Value Ref Range Glucose 113 (H) 70 - 100 mg/dL Troponin, High Sensitivity, Serial, Second Test Collection Time: 06/24/25 12:37 PM Result Value Ref Range 2h Troponin HS (Serial 2nd Troponin) 76 (H) <=14 ng/L Magnesium Collection Time: 06/24/25 12:37 PM Result Value Ref Range MAGNESIUM 2.1 1.6 - 2.6 mg/dL T3, free Collection Time: 06/24/25 12:37 PM Result Value Ref Range T3, FREE 1.89 1.58 - 3.91 pg/mL Lactic acid with reflex Collection Time: 06/24/25 2:33 PM Result Value Ref Range LACTIC ACID 2.0 0.5 - 2.2 mmol/L Troponin, Serial, Third Test Collection Time: 06/24/25 2:33 PM Result Value Ref Range 4h Troponin HS (Serial 3rd Troponin) 73 (H) <=14 ng/L T4, free Collection Time: 06/24/25 2:33 PM Result Value Ref Range FREE T4 0.87 0.70 - 1.48 ng/dL Complete Urinalysis with reflex to Culture Collection Time: 06/24/25 2:42 PM Result Value Ref Range Color, Urine Colorless Lt. Yellow Clarity, Urine Clear Clear pH, Urine 7.0 5.0 - 8.0 pH Leukocytes, Urine Negative Negative Pancho/uL Nitrite, Urine Negative Negative Protein, Urine Negative Negative mg/dL Glucose, Urine Normal Normal (<70) mg/dL Bilirubin, Urine Negative Negative mg/dL Ketones, Urine Trace (A) Negative mg/dL Urobilinogen, Urine Normal Normal (0-1) mg/dL Blood, Urine Negative Negative mg/dL SPECIFIC GRAVITY OF URINE (NUMERIC) 1.036 (H) 1.005 - 1.030 Radiographs: CT head wo IV contrast Final Result CT: No CT evidence of acute abnormality. CTA: No large vessel occlusion or high-grade stenosis in the head or neck. 0% stenosis of the proximal cervical ICAs bilaterally by NASCET criteria. 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 Report Dictated on Electronically Signed By: Delvis Morin MD Electronically Signed Date/Time: 06/24/2025 11:14 AM EDT CTA head neck angio w and wo IV contrast Final Result CT: No CT evidence of acute abnormality. CTA: No large vessel occlusion or high-grade stenosis in the head or neck. 0% stenosis of the proximal cervical ICAs bilaterally by NASCET criteria. 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 Report Dictated on Electronically Signed By: Delvis Morin MD Electronically Signed Date/Time: 06/24/2025 11:14 AM EDT XR chest 1 view Final Result Lines, tubes, and devices:None. Lungs and pleura: Mild interval decrease in small left apical pneumothorax now measuring up to 0.5 cm in thickness, previously 1 cm. Minimal streaky bibasilar opacities, likely atelectasis. No consolidation. No pleural effusion or sizable right pneumothorax. Cardiomediastinal silhouette: Stable cardiomediastinal silhouette.Atherosclerotic calcifications of the aortic archStatus post median sternotomy for presumed CABG. Other: Degenerative changes of the spine and shoulders. Report Dictated on Electronically Signed By: Delvis Morin MD Electronically Signed Date/Time: 06/24/2025 9:57 AM EDT MR brain wo contrast (Results Pending) : EKG: All EKG's areinterpreted by the Emergency Department Physician in the absence of a night worker. see their note for interpretation of EKG. EMERGENCY DEPARTMENT COURSE and DIFFERENTIAL DIAGNOSIS/MDM: External Records Review: Reviewed Care Everywhere Social Determinants of Health: none. Richie Armas is a 75 y.o. female who presented to the emergency department for altered mental status, palpitations and cramping. Differential diagnosis included ACS, arrhythmia, UTI, rhabdomyolysis. Our workup consisted of ordering/reviewing CBC, CMP, CT head, CK, EKG, troponin, TSH, UA, lactic and showed troponin elevated. Chest xray as interpreted by me and confirmed by radiologist showed decrease pneumothorax. CT head showed no ICH. Will admit for additional workup. CONSULTS: IP CONSULT TO CASE MANAGEMENT PROCEDURES: Unless otherwise noted below, none Procedures DISPOSITION/PLAN Admit 06/24/2025 01:04:07 PM PATIENT REFERRED TO: No follow-up provider specified. DISCHARGE MEDICATIONS: New Prescriptions No medications on file @[facility]([id number]:LAST:1)@ (Please note: Portions of this note were completed with a voice recognition program. Efforts were made to edit the dictations but occasionally words and phrases are mis-transcribed.) Form [id number] Lucho Longoria PA-C [facility] [1] No past medical history on file. [2] No past surgical history on file. [3] Social History Socioeconomic History Marital status: Tobacco Use Smoking status: Unknown Vaping Use Vaping status: Never Used Social Drivers of GTRAN Intimate Partner Violence: Not At Risk (06/14/2025) Humiliation, Afraid, Rape, and Kick questionnaire Fear of Current or Ex-Partner: No Emotionally Abused: No Physically Abused: No Sexually Abused: No Housing Stability: Low Risk (06/14/2025) Housing Stability Vital Sign Unable to Pay for Housing in the Last Year: No Number of Times Moved in the Last Year: 0 Homeless in the Last Year: No [4] Allergies Allergen Reactions Flexeril [Cyclobenzaprine] Itching Lucho Longoria PA-C 06/24/25 1631 Cosigned by Gokul Tineo DO at 06/25/2025 7:07 AM EDT [facility] 06-24-2025 Physician Emergen cy department Note Emergency Department Encounter [facility] EMERGENCY DEPT Patient: Richie Armas : 1950 Date of Evaluation: 06/24/2025 ED Supervising Physician: Gokul Tineo DO I personally saw Richie Armas and made/approved the management plan and take responsibility for the patient management. This will serve as my Supervisory note and shared attestation. I did perform a substantive portion of the visit including all aspects of the Medical Decision Making. I wore appropriate PPE for the entirety of this encounter. In brief, Richie Armas is a 75 y.o. with recent left heart cath with multivessel disease status post CABG on 06/18/2025 that presents to the emergency department for confusion. Patient reports that she has been more confused over the past couple of days. Reports she is forgetting what she is doing in the moment and at times feels like she is zoning out. Patient reports right sided neck pain where they accessed her with the Elberta catheter. Denies fever/chills, nausea/vomiting, paresthesias, weakness. Patient reports midsternal burning-like sensation that she describes as a typical chest pain. Denies associated dyspnea, lower extremity swelling, cough. Focused exam: Gen NAD Heart RRR Lungs CTA Neck no posterior neck TTP. R sided anterior ecchymosis Chest well healing incision with no surrounding erythema induration or purulence Neuro alert and oriented x 3. Cranial nerve II through XII intact. Face symmetric. Normal speech. Decreased sensation to light touch in left upper extremity and left lower extremity. Strength 5/5 bilateral upper and lower extremity. Normal finger-nose bilaterally Brief ED course/MDM: Upon arrival to the ED, patient afebrile, hemodynamically stable and saturating well on room air. NIH of 1 with unclear last known well as patient has been feeling more confused over the past couple of days. Given last known well unclear and likely a couple of days per family and patient, code stroke was not activated. High-sensitivity troponin elevated at 82, however I suspect likely would be elevated in setting of recent CABG. Given patient has no pain at this time right now, will repeat and trend. EKG with no ischemic changes compared to prior. Imaging negative for acute intracranial abnormality. CTA with no large vessel occlusion or high-grade stenosis in the head or neck. CXR Mild interval decrease in small left apical pneumothorax now measuring up to 0.5 cm in thickness, previously 1 cm. Patient admitted to medicine for further MRI/MRI and workup. Total critical care time today provided was at least 40 minutes. This excludes seperately billable procedure. Critical care time provided that required close evaluation and/or intervention with concern for patient decompensation. All diagnostic, treatment, and disposition decisions were made by myself in conjunction with the CRISTIANO. For all further details of the patient's emergency department visit, please see their documentation. (Comment: Please note this report has been produced using speech recognition software and may contain errors related to that system including errors in grammar, punctuation, and spelling, as well as words and phrases that may be inappropriate. If there are any questions or concerns please feel free to contact the dictating provider for clarification.) Gokul Tineo DO [employer] Gokul Tineo DO 06/25/25 0722 [facility] Work Phone: 06-24-2025 Telephone encount er Note Pt returned call to office, she is now reporting sudden onset of neck pain and increased confusion today. Advised pt be seen in ED since she is having new/worsening symptoms. Patient's son states he will bring her to [facility] ED for evaluation. [facility] 06-24-2025 Miscellaneous Notes Formattin g of this note might be different from the original. Pt returned call to office, she is now reporting sudden onset of neck pain and increased confusion today. Advised pt be seen in ED since she is having new/worsening symptoms. Patient's son states he will bring her to [facility] ED for evaluation. Called patient Patient stated she got home yesterday and might have over done it. She is not taking pain medications regularly - was taking ?tramadol x1 but was discharged on oxy IR. She stated that she slept all night ~ 8 hours and when she woke up she only voided about ~250. She does complain of some chest discomfort along center of chest. She feels like she is doing worse but admits she is stressed out at home which might be contributing. Discussed plan: Will plan lasix 40mg daily for 5 days with k replacment Check CXR - patient discharged with small apical ptx to follow up Pain control discussed and pain regimen developed If patient symptoms worsen she will go to the ED for evaluation. Name of caller requesting page: Richie Phone number of caller: [phone] Facility requesting page: patient Reason for page: tightness in chest, low urine output, and discomfort Provider paged: HOLLI Marr CNP Practice name of paged provider: Cardiothoracic Surgery Page placed to #: [phone] Time page was sent or provider contacted: 2:28pm Method of contact: secure chat Page content: Brie Reeder! Patient is requesting a returned call to [phone] to discuss c/o tightness in chest, low urine output, and discomfort. Patient states that she recently had cardiac surgery on 06/18/25 and currently having complications. Thank you. documented in this encounter [facility] 06-23-2025 Telephone encount er Note Called patient Patient stated she got home yesterday and might have over done it. She is not taking pain medications regularly - was taking ?tramadol x1 but was discharged on oxy IR. She stated that she slept all night ~ 8 hours and when she woke up she only voided about ~250. She does complain of some chest discomfort along center of chest. She feels like she is doing worse but admits she is stressed out at home which might be contributing. Discussed plan: Will plan lasix 40mg daily for 5 days with k replacment Check CXR - patient discharged with small apical ptx to follow up Pain control discussed and pain regimen developed If patient symptoms worsen she will go to the ED for evaluation. [facility] 06-23-2025 Miscellaneous Notes Formattin g of this note might be different from the original. Called patient Patient stated she got home yesterday and might have over done it. She is not taking pain medications regularly - was taking ?tramadol x1 but was discharged on oxy IR. She stated that she slept all night ~ 8 hours and when she woke up she only voided about ~250. She does complain of some chest discomfort along center of chest. She feels like she is doing worse but admits she is stressed out at home which might be contributing. Discussed plan: Will plan lasix 40mg daily for 5 days with k replacment Check CXR - patient discharged with small apical ptx to follow up Pain control discussed and pain regimen developed If patient symptoms worsen she will go to the ED for evaluation. Name of caller requesting page: Richie Phone number of caller: [phone] Facility requesting page: patient Reason for page: tightness in chest, low urine output, and discomfort Provider paged: HOLLI Marr CNP Practice name of paged provider: Cardiothoracic Surgery Page placed to #: [phone] Time page was sent or provider contacted: 2:28pm Method of contact: secure chat Page content: Brie Reeder! Patient is requesting a returned call to [phone] to discuss c/o tightness in chest, low urine output, and discomfort. Patient states that she recently had cardiac surgery on 06/18/25 and currently having complications. Thank you. documented in this encounter [facility] 06-23-2025 Telephone encount er Note Name of caller requesting page: Richie Phone number of caller: [phone] Facility requesting page: patient Reason for page: tightness in chest, low urine output, and discomfort Provider paged: HOLLI Marr CNP Practice name of paged provider: Cardiothoracic Surgery Page placed to #: [phone] Time page was sent or provider contacted: 2:28pm Method of contact: secure chat Page content: Brie Reeder! Patient is requesting a returned call to [phone] to discuss c/o tightness in chest, low urine output, and discomfort. Patient states that she recently had cardiac surgery on 06/18/25 and currently having complications. Thank you. [facility] 06-22-2025 Note Attestation signed by César Chopra MD at 06/22/2025 1:51 PM Attending Note I personally saw and evaluated the patient. I reviewed and agree with the CRISTIANO?s documentation. I provided a substantive portion of the care of this patient. I personally performed the medical decision making for this encounter as follows: Patient seen and examined on 06/22/25. As below, ok for discharge and follow-up in about 1 week in the office. STAFF PHYSICIAN: César Chopra MD DATE OF SERVICE: June 22, 2025 TIME OF SERVICE: 1:51 PM Discharge Summary: Cardiothoracic Surgery Richie Armas, 75 y.o., 1950 ADMIT DATE: 06/14/2025 DISCHARGE DATE: 06/22/2025 VISIT STATUS: Admission CODE STATUS: Full Code DISCHARGING SURGEON: Shaunna Johnston DO, Office Number: [phone] DISCHARGE DIAGNOSES: MVCAD s/p CABG NSTEMI HLD Raynaud's Osteoporosis Anxiety/depression Chronic back pain IBS/constipation Hypothyroidism Post operative Pulm Management: Normal Post-operative Course Post-operative Atrial Fibrillation: []Yes [x] No Acute blood loss anemia/consumptive coagulopathy BMI CLASSIFICATION:Overweight (BMI 25.0-29.9) TREATMENT TEAM: Primary Care Physician: PRAVEEN CRUM Locomotive Switch Operator: Dr. Hong SURGERY: s/p CABGx3 (VICK to LAD, rsvg to OM, rsvg RPDA) left lower leg EVH with Dr. Johnston on 06/18/25 HOSPITAL COURSE: 75 year old female patient with PMHx that includes CKD2, Raynaud's, anxiety/depression, IBS/constipation, GERD, fibromyalgia, hypothyroidism, chronic low back pain S/P lumbar spinal surgery that presented to [facility] on 06/14/2025 from [facility]. Patient reports worsening chest pain associated with daily walks which started approximately 1 week ago. Initially she attributed this to her prior diagnosis of GERD but when she experienced pain 06/14 that did not resolve with rest she presented to [facility] ED. LHC at [facility] demonstrated severe multivessel disease and she was transferred to [facility] for CABG evaluation. Agreeable to CABG, went to OR on 06/18/25. Postoperative course uncomplicated. Once medications were titrated and she was hemodynamically stable she was discharged home on POD #4 (06/22/25). Of note CXR on d/c noted small left apical ptx. No intervention done discussed with treatment team and patient. DIAGNOSTICS: BP 147/68 Pulse 71 Temp 36.9 ?C (98.4 ?F) (Temporal) Resp 16 Ht 5' 3 (1.6 m) Wt 138 lb 11.2 oz (62.9 kg) SpO2 96% BMI 24.57 kg/m? Recent Labs 06/20/25 0010 06/21/25 0253 06/22/25 0047 CREATININE 0.76 0.75 0.59 HGB 8.8* 7.7* 8.5* PLT 112* 122* 133* WBC 7.6 8.0 7.5 NA 134* 135* 137 K 3.9 4.0 3.9 DISCHARGE MEDICATIONS: Medication List START taking these medications acetaminophen 500 MG tablet Commonly known as: Tylenol Take 2 tablets (1,000 mg) by mouth every 8 hours for 10 days. aspirin 81 MG chewable tablet Chew 1 tablet (81 mg) daily. Start taking on: June 23, 2025 clopidogrel 75 MG tablet Commonly known as: Plavix Take 1 tablet (75 mg) by mouth daily. Start taking on: June 23, 2025 ezetimibe 10 MG tablet Commonly known as: Zetia Take 1 tablet (10 mg) by mouth Nightly. levothyroxine 50 MCG tablet Commonly known as: Synthroid, Levoxyl Take 1 tablet (50 mcg) by mouth every morning (before breakfast). Start taking on: June 23, 2025 metoprolol succinate XL 50 MG 24 hr tablet Commonly known as: Toprol-XL Take 1 tablet (50 mg) by mouth daily. Do not crush or chew. Start taking on: June 23, 2025 NIFEdipine XL 30 MG 24 hr tablet Commonly known as: Procardia XL Take 1 tablet (30 mg) by mouth daily. Do not crush, chew, or split. Start taking on: June 23, 2025 oxyCODONE 5 MG immediate release tablet Commonly known as: Roxicodone Take 1 tablet (5 mg) by mouth every 6 hours as needed for severe pain (7-10) (acute post surgical pain) for up to 5 days. rosuvastatin 40 MG tablet Commonly known as: Crestor Take 1 tablet (40 mg) by mouth daily. Start taking on: June 23, 2025 STOP taking these medications lubiprostone 24 MCG capsule Commonly known as: Amitiza Where to Get Your Medications These medications were sent to [facility]/pharmacy #[id number] [address] aspirin 81 MG chewable tablet clopidogrel 75 MG tablet ezetimibe 10 MG tablet levothyroxine 50 MCG tablet metoprolol succinate XL 50 MG 24 hr tablet NIFEdipine XL 30 MG 24 hr tablet oxyCODONE 5 MG immediate release tablet rosuvastatin 40 MG tablet You can get these medications from any pharmacy You don't need a prescription for these medications acetaminophen 500 MG tablet *The patient's OARRS report was obtained and reviewed.* I explained to Richie Pawel that narcotic pain med (more content not included)... [facility] 06-22-2025 Hospital course Narrative Images from the original note were not included. Discharge Summary: Cardiothoracic Surgery Richie Eucedaier, 75 y.o., 1950 ADMIT DATE: 06/14/2025 DISCHARGE DATE: 06/22/2025 VISIT STATUS: Admission CODE STATUS: Full Code DISCHARGING SURGEON: Shaunna Johnston DO, Office Number: [phone] DISCHARGE DIAGNOSES: MVCAD s/p CABG NSTEMI HLD Raynaud's Osteoporosis Anxiety/depression Chronic back pain IBS/constipation Hypothyroidism Post operative Pulm Management: Normal Post-operative Course Post-operative Atrial Fibrillation: []Yes [x] No Acute blood loss anemia/consumptive coagulopathy BMI CLASSIFICATION:Overweight (BMI 25.0-29.9) TREATMENT TEAM: Primary Care Physician: PRAVEEN CRUM Locomotive Switch Operator: Dr. Hong SURGERY: s/p CABGx3 (VICK to LAD, rsvg to OM, rsvg RPDA) left lower leg EVH with Dr. Johnston on 06/18/25 HOSPITAL COURSE: 75 year old female patient with PMHx that includes CKD2, Raynaud's, anxiety/depression, IBS/constipation, GERD, fibromyalgia, hypothyroidism, chronic low back pain S/P lumbar spinal surgery that presented to [facility] on 06/14/2025 from [facility]. Patient reports worsening chest pain associated with daily walks which started approximately 1 week ago. Initially she attributed this to her prior diagnosis of GERD but when she experienced pain 06/14 that did not resolve with rest she presented to [facility] ED. LHC at [facility] demonstrated severe multivessel disease and she was transferred to [facility] for CABG evaluation. Agreeable to CABG, went to OR on 06/18/25. Postoperative course uncomplicated. Once medications were titrated and she was hemodynamically stable she was discharged home on POD #4 (06/22/25). Of note CXR on d/c noted small left apical ptx. No intervention done discussed with treatment team and patient. DIAGNOSTICS: BP 147/68 Pulse 71 Temp 36.9 C (98.4 F) (Temporal) Resp 16 Ht 5' 3 (1.6 m) Wt 138 lb 11.2 oz (62.9 kg) SpO2 96% BMI 24.57 kg/m Recent Labs 06/20/25 0010 06/21/25 0253 06/22/25 0047 CREATININE 0.76 0.75 0.59 HGB 8.8* 7.7* 8.5* PLT 112* 122* 133* WBC 7.6 8.0 7.5 NA 134* 135* 137 K 3.9 4.0 3.9 DISCHARGE MEDICATIONS: Medication List START taking these medications acetaminophen 500 MG tablet Commonly known as: Tylenol Take 2 tablets (1,000 mg) by mouth every 8 hours for 10 days. aspirin 81 MG chewable tablet Chew 1 tablet (81 mg) daily. Start taking on: June 23, 2025 clopidogrel 75 MG tablet Commonly known as: Plavix Take 1 tablet (75 mg) by mouth daily. Start taking on: June 23, 2025 ezetimibe 10 MG tablet Commonly known as: Zetia Take 1 tablet (10 mg) by mouth Nightly. levothyroxine 50 MCG tablet Commonly known as: Synthroid, Levoxyl Take 1 tablet (50 mcg) by mouth every morning (before breakfast). Start taking on: June 23, 2025 metoprolol succinate XL 50 MG 24 hr tablet Commonly known as: Toprol-XL Take 1 tablet (50 mg) by mouth daily. Do not crush or chew. Start taking on: June 23, 2025 NIFEdipine XL 30 MG 24 hr tablet Commonly known as: Procardia XL Take 1 tablet (30 mg) by mouth daily. Do not crush, chew, or split. Start taking on: June 23, 2025 oxyCODONE 5 MG immediate release tablet Commonly known as: Roxicodone Take 1 tablet (5 mg) by mouth every 6 hours as needed for severe pain (7-10) (acute post surgical pain) for up to 5 days. rosuvastatin 40 MG tablet Commonly known as: Crestor Take 1 tablet (40 mg) by mouth daily. Start taking on: June 23, 2025 STOP taking these medications lubiprostone 24 MCG capsule Commonly known as: Amitiza Where to Get Your Medications These medications were sent to [facility]/pharmacy #[id number] [place] [id number] aspirin 81 MG chewable tablet clopidogrel 75 MG tablet ezetimibe 10 MG tablet levothyroxine 50 MCG tablet metoprolol succinate XL 50 MG 24 hr tablet NIFEdipine XL 30 MG 24 hr tablet oxyCODONE 5 MG immediate release tablet rosuvastatin 40 MG tablet You can get these medications from any pharmacy You don't need a prescription for these medications acetaminophen 500 MG tablet *The patient's OARRS report was obtained and reviewed.* I explained to Richie Armas that narcotic pain medications have addictive potential and should only be taken for acute post operative surgical pain. I also explained that narcotic/opioid medication should not be taken to help sleep as they are only intended to treat pain. In addition the patient needs to avoid driving or taking other narcotics, anxiolytics or consuming alcohol or using street drugs while they are taking the narcotic because serious side effects including can occur. I discussed the side effects that can occur when taking a narcotic alone including but not limited to: nausea, vomiting, constipation and drowsiness.I told the patient that if they have any reactions to the medication or any percieved problems with the medication, they are to stop the medication and call me. ACTIVITY: activity as tolerated, strict post-sternotomy/post-thoracotomy sternal precautions as outlined in the home going instructions, and no driving or operating heavy machinery until released by provider STRICT POST-STERNOTOMY/POST-THORACOTOMY PRECAUTIONS OUTLINED IN THE HOME GOING INSTRUCTIONS Wires Only Weight restriction measures 1-4 weeks from date of surgery- 10lbs weight restriction: 07/16/25 5-8 weeks from date of surgery- 20lbs weight restriction approximate end date: FOLLOW UP: Thierno Reeder APRN-EXHIBIT BUILDER July 04 at 10:30pm [address] [place] [address] [address] Dept: [phone] Dept CORE CARDIAC MEDICATIONS PRESCRIBED AT DISCHARGE: Beta-karol prescribed at discharge: [x] Yes [] No - reason why: ACEi or ARB prescribed at discharge: [] Yes [x] No - reason why: EF greater than 40% Statin prescribed at discharge: [x] Yes [] No - reason why: Anti-platelet agent prescribed at discharge: [x] Yes [] No - reason why: If yes, type: ASA plavix Post-operative Atrial Fibrillation: []Yes [x] No OAC: [] Yes [x] No Initial Post-op RBC transfusion date/reason: transfused intraoperatively Chronic Lung Disease: Unknown DISPOSITION: Home with Home Assist A copy of the discharge instructions which included the medications at the time of discharge, follow-up appointments, phone numbers to call with questions, activity, restrictions, and limitations was provided to the patient or their family. We greatly appreciate the opportunity to participate in the care of your patient. If you have any additional questions or concerns regarding any aspects of their care or management please do not hesitate to contact us. SIGNED: Cosigned by César Chopra MD at 06/22/2025 1:51 PM EDT Associated attestation - César Chopra MD - 06/22/2025 1:51 PM EDT Attending Note I personally saw and evaluated the patient. I reviewed and agree with the CRISTIANO s documentation. I provided a substantive portion of the care of this patient. I personally performed the medical decision making for this encounter as follows: Patient seen and examined on 06/22/25. As below, ok for discharge and follow-up in about 1 week in the office. STAFF PHYSICIAN: César Chopra MD DATE OF SERVICE: June 22, 2025 TIME OF SERVICE: 1:51 PM documented in this encounter [facility] 06-22-2025 Hospital Discharg e instructions HOLLI Marr CNP - 06/22/2025 10:42 AM EDT Images from the original note were not included. [facility]: Cardiothoracic Surgery [address] [place] [address] #[phone] Notify us if the following occur - Increased tenderness, redness, or swelling of your incisions. - Any drainage from the chest incision (clear or pink drainage from the leg incision or chest tube site is common). - Angina symptoms like those you had before surgery - Sharp pain in chest, neck or shoulder that is worse when taking a deep breath - Persistent fever greater than 100 degrees F or 38 degrees C - Flu-like symptoms-chills, aches, fever, increased fatigue - Heart rate faster than 150 beats/minute with shortness of breath or new irregular heart rate. - Any unusual bleeding - Shortness of breath not relieved by rest - Weight gain of three pounds in one day or five pounds over one week Activity Instructions - Sternal Precautions for 6 weeks - Do not lift, push, or pull anything heavier than 10 pounds for 6 weeks (a gallon of milk weighs 8 pounds). - Do not drive until you have been given permission by your surgeon/provider and until you are off narcotic/opioid pain medication - It is ok to sleep on your side if you prop pillows to support your back. Do not sleep on your stomach. - Walk at least 4 times a day, start with 5 minute intervals, increase minutes walked each day. Do not walk on a treadmill - Balance rest and activity during your recovery - Use the stairs, but go slowly, Use the handrail for balance but do not pull yourself up with your arms. - Shower daily. Do not take your heart medication right before you shower. You could become lightheaded from your blood pressure and heart medication. Always have someone nearby to assist you. - Do not take a tub bath or use a hot tub until all incision are completely healed (no scab). - Put fabiola hose on in AM and remove at bedtime. Elevate your feet above level of heart when you are sitting. - Cough and deep breathe and use incentive spirometer every hour (10x/hour while awake for two weeks). Other Instructions - Weigh yourself daily at the same time (after Cardiothoracic Surgery: Symptom Management Office phone number: [phone] Office is open 8:30 am -4 pm. If you need assistance after hours, this will direct you to a nursing hotline. GREEN ZONE: All Clear- Your Symptoms Are Under Control Incisional pain is managed by taking Acetaminophen and/or pain medication No increase in shortness of breath No increase in leg swelling or weight gain No frequent lightheadedness/dizziness No redness or drainage from incisions. Small amount of thin, blood tinged or yellow drainage is not uncommon for few days post discharge This Means You Should: Continue current plan of care Continue taking your medications as prescribed Continue activity as tolerated, including 4 walks daily and PT exercised Eat healthy diet, no caffeine Keep all follow-up appointments No smoking YELLOW ZONE: Caution Incisional pain that is getting worse and/or not managed by pain medication Increase in shortness of breath, especially when at rest Increased leg swelling or new leg swelling Weight gain (more than 3lb in 1 day or 5lb in 1 week) Lightheadedness, dizziness, or heavy sweating Redness and/or thick drainage from incision Fever/chills This Means You Should: Call cardiothoracic surgery line for further instructions: [phone] Office is open 8:30 am -4 pm. If you need assistance after hours, this will direct you to a nursing hotline. RED ZONE: Medical Alert Severe shortness of breath at rest Severe chest pain/pressure or pain that radiates to neck, jaw, back, and/or arm that is NOT relieved with rest and pain medication. May be similar to pain prior to surgery Passing out or fainting This Means You Should: call EMS or seek care in Emergency Department you urinate but before breakfast) - Keep a record of your daily weight, and bring to your first post op office visit - Take all medications as prescribed. Bring all your medication bottles to any follow up office visit Incision Care - Wash your sternal incision with anti-bacterial soap and warm water. Pat dry, and leave open to air. Do not use any lotions, or powders, or ointments. Beinta Dixon RN - 06/19/2025 11:37 AM EDT Images from the original note were not included. Continuity of Care Form Patient Name: Richie Armas : 1950 Admit date: 06/14/2025 Discharge date: Code Status Order: Full Code Advance Directives: N Admitting Physician: Shaunna Johnston DO PCP: PRAVEEN CRUM Discharging Nurse: Discharging Hospital Unit/Room#: T1-101/T1-101 A Discharging Unit Phone Number: Emergency Contact: Extended Emergency Contact Information Primary Emergency Contact: Sean Armas Mobile Relation: Spouse Secondary Emergency Contact: All Armas Mobile Relation: Daughter Preferred language: Omani Revenue Research Analyst needed? No Past Surgical History: No past surgical history on file. Immunization History: Immunization History Administered Date(s) Administered COVID-19, mRNA, LNP-S, PF, 50 mcg/0.5 mL 08/23/2023, 07/27/2024, 06/04/2025 Covid-19, Moderna Bivalent Booster, (Age 6y-11y) 09/21/2022 Covid-19, Pfizer Hopkins Top, Do Not Dilute, (Age 12 Y+), Im, L 03/26/2022 Moderna SARS-CoV-2 Vaccination 12/31/2020, 01/28/2021, 10/06/2021 Active Problems: Medical Problems Problem List * (Principal) NSTEMI (non-ST elevation myocardial infarction) (HCC) Isolation/Infection: No active isolations No active infections Nurse Assessment: Last Vital Signs: BP 115/57 Pulse 77 Temp 36.2 C (97.2 F) Resp 18 Ht 1.6 m (5' 3) Wt 63.7 kg (140 lb 6.9 oz) SpO2 99% BMI 24.88 kg/m Last documented pain score (0-10 scale): Last Weight: Wt Readings from Last 1 Encounters: 06/19/25 63.7 kg (140 lb 6.9 oz) Mental Status: {KERI Patient Mental Status:61407} IV Access: {KERI IV Access:18213} Nursing Mobility/ADLs: Walking {SUNNY ADL:89176::Independent} Transfer {SUNNY ADL:41844::Independent} Bathing {SUNNY ADL:63618::Independent} Dressing {SUNNY ADL:31395::Independent} Toileting {SUNNY ADL:86604::Independent} Feeding {SUNNY ADL:52770::Independent} Insurance Claims Specialist {SUNNY ADL:42363::Independent} Med Delivery {yes/no:86470} Wound Care Documentation and Therapy: Wound/Incision 06/18/25 Incision Sternum (Active) Site Assessment Clean;Dry;Intact 06/19/25 08 Raven-Wound Assessment Clean;Dry;Intact 06/19/25 0800 Odor None 06/19/25 0400 Drainage Amount None 06/19/25 0800 Primary Dressing Liquid dressing adhesive 06/19/25 08 Dressing Status Clean, dry & intact 06/19/25 08 Number of days: 1 Wound/Incision 06/18/25 Incision Calf Anterior;Left (Active) Site Assessment Clean;Dry;Intact 06/19/25 0800 Raven-Wound Assessment Clean;Dry;Intact 06/19/25 0800 Odor None 06/19/25 0400 Drainage Amount None 06/19/25 0800 Primary Dressing Liquid dressing adhesive 06/19/25 08 Dressing Status Clean, dry & intact 06/19/25 08 Number of days: 0 Elimination: Continence: Bowel: {yes/no:26428} Bladder: {yes/no:55719} Urinary Catheter: {KERI Urinary Catheter:86855} Colostomy/Ileostomy/Ileal Conduit: {YES / NO:} Date of Last BM: Intake/Output Summary (Last 24 hours) at 06/19/2025 1137 Last data filed at 06/19/2025 0800 Gross per 24 hour Intake 3532.53 ml Output 2869 ml Net 663.53 ml I/O last 3 completed shifts: In: 3224.5 (50.6 mL/kg) [P.O.:150; I.V.:1970 (30.9 mL/kg); Blood:663.3; Other:400] Out: 4524 (71 mL/kg) [Urine:3614 (1.6 mL/kg/hr); Emesis/NG output:10; Blood:450; Chest Tube:450] Weight: 63.7 kg Safety Concerns: {KERI Safety Concerns:55253} Impairments/Disabilities: {KERI Impairments/Disabilities:28949} Nutrition Therapy: Current Nutrition Therapy: {KERI Diet List:47815} Routes of Feeding: {routes of feedin} Liquids: {liquid consistency:95531} Daily Fluid Restriction: {daily fluid restriction:01966} Last Modified Barium Swallow with Video (Video Swallowing Test): {done not done:34008} Treatments at the Time of Hospital Discharge: Respiratory Treatments: Oxygen Therapy: {Therapy; copd oxygen:69648} Ventilator: {KERI Ventilator:59020} Rehab Therapies: {GEN THERAPY DISCIPLINE SCAL:7862003} Weight Bearing Status/Restrictions: {POD WEIGHT BEARIN} Other Medical Equipment (for information only, NOT a DME order): {Assistive Devices DME:96157} Other Treatments: Patient's personal belongings (please select all that are sent with patient): {KERI Patient Belongings:93017} RN SIGNATURE: {E-signature:44130} CASE MANAGEMENT/SOCIAL WORK SECTION Inpatient Status Date: Discharging to Facility/ Agency Name: [facility] Address: [address] [place] [address] Dialysis Facility (if applicable) Name: Address: Dialysis Schedule: Phone: Fax: Heel Seat Trimmer/Conditioner Tumbler Operator signature: {E-signature:05271} PHYSICIAN SECTION Name: Richie Armas Prognosis: {Rehab Prognosis:95169} Condition at Discharge: {Patient Condition:26912} Rehab Potential (if transferring to Rehab): {Rehab Prognosis:79862} Recommended Labs or Other Treatments After Discharge: The individual is being admitted to a nursing facility directly from an [facility] or a unit of a [facility] that is not operated by or licensed by [facility] under section 5119.14 or 5160-3-15.1 5 The individual requires the level of services provided by a nursing facility for the condition for which he or she was treated in the hospital and, Physician Certification: I certify the above information and transfer of Richie Armas is necessary for the continuing treatment of the diagnosis listed and that she requires {KERI Level of Care:04618} for {greater less than:49224} 30 days. Update Admission H&P: {KERI Changes in H&P:76987} PHYSICIAN SIGNATURE: {E-signature:59409} documented in this encounter [facility] 06-22-2025 History of Presen t illness Narrative Images from the original note were not included. [facility] Interventional Cardiology NAME: Richie Armas DATE OF : 1950 CHIEF COMPLAINT NSTEMI ASSESSMENT AND PLAN NSTEMI MD CAD s/p CABG x 3 Patient remains stable without angina. She is tolerating aspirin, plavix, and metoprolol . She has intolerance to statin causing leg cramps. Recommend zetia for hyperlipidemia. Continue phase 1 cardiac rehab and IS. Reinforced protein intake. Lifestyle modification including: a heart-healthy diet (low in fat and cholesterol). Plan for phase 2 cardiac rehab with exercise for 30 minutes a day 3 or more days a week once cleared by CTS. Weight loss. Avoid caffeine, alcohol and tobacco products. Reduce stress. Seems to be stable for discharge today without outpatient cardiology follow up. Raynaud's Recommend to continue nifedipine at low dose. Hyperlipidemia, stable Last LDL 190 above recommended goal of <55 mg/dL per ESC guidelines. Last LFTs were stable. She reports intolerance to statin. We recommend stating Zetia on discharge. Blood loss anemia S/p 1 unit RBCs. H&H remains stable. Prediabetes Last HgbA1c was 5.8%, well controlled, goal <7.5%. Continue current therapy. Follow ADA SUBJECTIVE Richie Armas is an 75 y.o. female presents from [facility] on 06/14/25 with past medical history significant for CKD stage II, Raynaud's, fibromyalgia, chronic back pain s/p lumbar spinal surgery, hypothyroidism, GERD, IBS and anxiety and depression. When patient presented to the hospital she reported increase chest pain during her daily walks for about 1 week. She initially thought it may be 2/2 GERD but became concerned when CP did not resolve with rest. She was found to be NSTEMI. Her LHC at [facility] showed MVCAD. She was transferred to [facility] for CABG evaluation. She had a normal TTE with EF 50% on 06/15. She underwent CABG x [address] Hinson 06/18. Today POD 4. She feels well. Able to ambulate. No significant angina or SOB. Plans for discharge today. Allergies[1] Medical History[2] OBJECTIVE Vitals: 06/22/25 0000 06/22/25 0116 06/22/25 0410 06/22/25 0622 BP: 131/82 107/51 BP Location: Right arm Patient Position: Lying Pulse: 65 67 66 Resp: 16 18 Temp: 37 C (98.6 F) 36.9 C (98.5 F) TempSrc: Temporal Temporal SpO2: 98% 97% Weight: 138 lb 11.2 oz (62.9 kg) Height: Intake/Output Summary (Last 24 hours) at 06/22/2025 0744 Last data filed at 06/21/2025 1814 Gross per 24 hour Intake 1050 ml Output 825 ml Net 225 ml MEDICATIONS Scheduled Meds[3] INFUSION MEDICATIONS Continuous Meds[4] Physical Exam Constitutional: General: She is not in acute distress. Appearance: Normal appearance. Neck: Vascular: No JVD. Cardiovascular: Rate and Rhythm: Normal rate and regular rhythm. Pulses: Normal pulses. Heart sounds: Normal heart sounds. No murmur heard. Pulmonary: Effort: Pulmonary effort is normal. Breath sounds: Normal breath sounds. No rales. Chest: Comments: Mid sternal incision is dry and well approximated Skin: General: Skin is warm and dry. Findings: Bruising present. Neurological: Mental Status: She is alert and oriented to person, place, and time. Psychiatric: Mood and Affect: Mood normal. Speech: Speech normal. LAB VALUES AND TESTING REVIEWED Lab Results Component Value Date NA 137 06/22/2025 K 3.9 06/22/2025 CL 103 06/22/2025 CO2 22 (L) 06/22/2025 BUN 12 06/22/2025 CREATININE 0.59 06/22/2025 GLUCOSE 92 06/22/2025 CALCIUM 8.6 (L) 06/22/2025 MG 1.8 06/22/2025 PHOS 3.3 06/18/2025 Lab Results Component Value Date ALT 7 06/18/2025 AST 31 06/18/2025 ALKPHOS 52 06/18/2025 BILITOT 0.3 06/18/2025 Lab Results Component Value Date WBC 7.5 06/22/2025 HGB 8.5 (L) 06/22/2025 HCT 25.8 (L) 06/22/2025 MCV 93.5 06/22/2025 PLT 133 (L) 06/22/2025 Lab Results Component Value Date CHOL 295 (H) 06/15/2025 Lab Results Component Value Date HDL 79 06/15/2025 Lab Results Component Value Date TRIG 129 06/15/2025 Lab Results Component Value Date LDLCALC 190 (H) 06/15/2025 Lab Results Component Value Date TSH 2.71 06/14/2025 Lab Results Component Value Date HGBA1C 5.8 (H) 06/16/2025 CARDIAC TESTS TELEMETRY FINDINGS: SB-NSR with ventricular rate 50-70 bpm no ectopy EKG: Encounter Date: 06/14/25 ECG 12 lead Result Value Heart Rate 67 QRSD Interval 100 QT Interval 407 QTC Interval 430 P Babylon 48 QRS Babylon 61 T Wave Babylon 0 OH Interval 150 Impression Sinus rhythm Compared to ECG 06/19/2025 05:25:37 T-wave abnormality no longer present Possible ischemia no longer present Electronically Signed On 06-21-2025 17:13:05 EDT by Ladarius Peng Tracing reviewed ECHOCARDIOGRAM: 06/14/25 TRANSTHORACIC ECHOCARDIOGRAM (TTE) COMPLETE (CONTRAST/BUBBLE/3D PRN) 06/16/2025 8:47 AM (Final) Interpretation Summary Left Ventricle: Left ventricle size is normal. Normal wall thickness. Normal left ventricular systolic function. EF by visual approximation is 50%. EF by 2D Simpsons Biplane is 63%. See diagram for wall motion findings. Right Ventricle: Right ventricle size is normal. Normal systolic function. Aortic Valve: Mildly thickened cusps. Mildly calcified cusps. Cusp sclerosis. Trace regurgitation. No stenosis. Mitral Valve: Mildly thickened leaflets. Calcified leaflets. Annular calcification. Mild (1+) regurgitation. No stenosis noted. Tricuspid Valve: RVSP is 22 mmHg. Left Atrium: Left atrium size is normal. Right Atrium: Right atrium size is normal. Aorta: Normal sized sinuses of Valsalva and ascending aorta. No significant valvular abnormalities. Signed by: Darius Patterson DO on 06/16/2025 8:47 AM ADDITIONAL TESTING REVIEWED === 06/14/25 === XR CHEST 1 VIEW - Impression - Cardiomegaly and pulmonary venous congestion. Left basilar atelectasis. Quita Urbano M.D. Fellow Interventional Cardiology [facility] - Cardiology [1] Allergies Allergen Reactions Flexeril [Cyclobenzaprine] Itching [2] History reviewed. No pertinent past medical history. [3] acetaminophen, 1,000 mg, Oral, q8h aspirin, 81 mg, Oral, Daily bisacodyl, 10 mg, Rectal, Daily chlorhexidine, , Topical, Daily clopidogrel, 75 mg, Oral, Daily enoxaparin, 40 mg, SubCUTAneous, q24h levothyroxine, 50 mcg, Oral, qAM AC Lidocaine, 1 patch, Topical, Daily metoprolol tartrate, 25 mg, Oral, BID NIFEdipine XL, 30 mg, Oral, Daily pantoprazole, 40 mg, Oral, qAM AC polyethylene glycol (PEG) 3350, 17 g, Oral, Daily rosuvastatin, 40 mg, Oral, Daily senna-docusate sodium, 2 tablet, Oral, Nightly simethicone, 80 mg, Oral, 4x daily sodium chloride 0.9%, 5-40 mL, IntraCATHeter, q8h [4] lactated ringers, 250 mL, Last Rate: Stopped (06/18/251912) Cosigned by Sandip Quezada MD at 06/22/2025 10:00 AM EDT Associated attestation - Sandip Quezada MD - 06/22/2025 10:00 AM EDT I, Dr. Quezada saw and evaluated the patient on 06/22/2025. I personally obtained the figueroa and critical portions of the history and physical exam. I reviewed the chart and discussed the patient with the resident. I agree with the resident's medical decision making. 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 She initially thought she was having acid reflux-like symptoms but symptoms worsened with radiation to her arm so she presented at [facility]. She was found to have elevated troponin and underwent coronary angiography that showed multivessel coronary artery disease with subtotally occluded RCA, high-grade lesion obtuse marginal branch and obstructive disease in the LAD. She was subsequently transferred to [facility] for bypass consideration. She had a normal TTE with EF 50% on 06/15. She underwent CABG x [address] Hinson 06/18. This morning the patient does not have any complaints. She denies any chest discomfort. She does have some bruising around her access site for her cath and around her left lower extremity. Her labs are stable this morning. The plan is for the patient to be discharged later on today. She has been walking around in the hallway without any problems. For her NSTEMI now status post bypass surgery, continue aspirin 80 mg daily and Plavix 75 mg daily. The patient is currently getting metoprolol 25 mg twice daily which can be transition to metoprolol succinate 50 mg daily at discharge. Continue nifedipine extended release 30 mg daily which she takes for her Raynaud's. The patient has been intolerant of multiple statins in the past. We had started the patient on Zetia 10 mg daily which she was tolerating prior to her bypass surgery. We would recommend initiation of Zetia 10 mg daily at discharge. The patient may be a good candidate for bempedoic acid versus PCSK9 inhibitors in the future. She will follow-up with the cardiology team in [facility] after she is done following up with the CT surgery team here. I discussed the above recommendations with the CT surgery team as well. Portions of the information within this encounter were entered using an electronic dictation system. Best attempts were made to proofread the information prior to note completion. Despite the review of the information, some errors may remain. If there are questions related to the information contained within the note please contact the signing provider directly. Sandip Quezada MD, [facility], [facility] Hydroelectric Production Technician [facility], [facility] [address] [address] p [phone] f [phone] [email or web address] Images from the original note were not included. Cardiothoracic Surgery/Critical Care Daily Progress Note PATIENT NAME: Richie Armas DATE: 06/22/25 HPI: 75 year old female patient with PMHx that includes CKD2, Raynaud's, anxiety/depression, IBS/constipation, GERD, fibromyalgia, hypothyroidism, chronic low back pain S/P lumbar spinal surgery that presented to [facility] on 06/14/2025 from [facility]. Patient reports worsening chest pain associated with daily walks which started approximately 1 week ago. Initially she attributed this to her prior diagnosis of GERD but when she experienced pain 06/14 that did not resolve with rest she presented to [facility] ED. LHC at [facility] demonstrated severe multivessel disease and she was transferred to [facility] for CABG evaluation. Agreeable to CABG, went to OR on 06/18/25. Surgery/Procedure: 06/18/25: s/p CABGx3 (VICK to LAD, rsvg to OM, rsvg RPDA) left lower leg EVH with Dr. Johnston Interval History: 06/22/25, POD# 4: VSS on RA, no acute issues. Left leg EVH sore and swollen. Pain controlled. Patients wants to go home. Review of Systems Constitutional: Negative for diaphoresis, fatigue and fever. Respiratory: Negative for cough, shortness of breath and wheezing. Cardiovascular: Negative for chest pain, palpitations and leg swelling. Gastrointestinal: Negative for abdominal distention, constipation and diarrhea. Skin: Negative for color change, pallor and rash. Objective: Last BM Date: 06/20/25 Vitals: BP: 107/51, MAP (mmHg): 68, BP Method: Automatic Heart Rate: 66 Resp: 18 Temp: 36.9 C (98.5 F), Temp Source: Temporal BMI (Calculated): 25.25 Pacer Wires: Temporary Wires: Epicardial Wire Status: Ventricular bipolar wire(s) CXR: BMP: Recent Labs 06/20/25 0010 06/21/25 0253 06/22/25 0047 NA 134* 135* 137 K 3.9 4.0 3.9 CL 101 101 103 CO2 25 25 22* BUN 13 11 12 CREATININE 0.76 0.75 0.59 CALCIUM 9.0 8.9 8.6* MG 2.0 1.7 1.8 CBC: Recent Labs 06/20/25 0010 06/21/25 0253 06/22/25 0047 WBC 7.6 8.0 7.5 HGB 8.8* 7.7* 8.5* HCT 27.1* 24.5* 25.8* PLT 112* 122* 133* MCV 94.8 95.7 93.5 RDW 15.7* 15.5* 15.1* Physical Exam Cardiovascular: Rate and Rhythm: Normal rate and regular rhythm. Heart sounds: Normal heart sounds. No murmur heard. No friction rub. Pulmonary: Effort: Pulmonary effort is normal. Skin: General: Skin is warm and dry. Capillary Refill: Capillary refill takes less than 2 seconds. Findings: Bruising and ecchymosis present. Comments: Surgical Incisions: well approximate; clean dry with no drainage noted. Surrounding skin no redness, warmth, or signs of infection noted. Neurological: Mental Status: She is alert. Psychiatric: Behavior: Behavior is cooperative. Assessment: MVCAD s/p CABG NSTEMI HLD Raynaud's Osteoporosis Anxiety/depression Chronic back pain IBS/constipation Hypothyroidism Post operative Pulm Management: Normal Post-operative Course Post-operative Atrial Fibrillation: []Yes [x] No Acute blood loss anemia/consumptive coagulopathy Plan: Patient Status: Telemetry Continue ASA metoprolol Change metoprolol tartrate to succinate Add zetia Add plavix for NSTEMI Nifedipine - for Raynaud's symptoms GI prophy: PO protonix DVT prophy: TEDs, SCDs, and Lovenox SubQ PT/OT recs: Home with assist prn, Home with Home health PT/OT Pulmonary hygiene: IS and Acapella Consults: Endocrinology signed off; no follow up Cardiology following Disposition: D/c likely today home with home health Epicardial pacing wire cut without difficulty per protocol. Patient and nurse educated on possible complications. Patient tolerated well. Will continue to monitor. *patient very thin - wire pulled taught as much as possible prior to cutting - educated on possible wire migration. Patient discussed and plan of day developed from multidisciplinary rounds between Cardiothoracic Surgery (Cardiothoracic Surgeon, CRISTIANO) and Critical Care Attending Cardiac Core Medications: ASA, Plavix, Statin, and BB EF: TTE 06/16/25- EF 50% Blood Conservation: transfused Locomotive Switch Operator: Sandra cardiology Cosigned by Latrell Kidd DO at 06/22/2025 6:20 PM EDT Images from the original note were not included. PHYSICAL THERAPY [facility] Treatment Note Name/MRN: Richie Armas ([id number]) Date of : 1950 Age: 75 y.o. Room/Bed: T1-101/T1 A Discharge Recommendation: Home with assist PRN, Home with Home health PT Other: TBD- does not own DME Assessment Pt tolerated treatment session well and is progressing towards goals. Pt demonstrates ability to ambulate and perform transfers with no device and SBA. Cues for sternal precautions. Recommend discharge home with assist PRN and home health care to improve mobility, activity tolerance, and strength within pt's home environment. Subjective Pt is sitting up in a chair upon arrival and is agreeable to PT treatment session. RN okayed session. Pain: 0-10 pain scale: 3/10 Location: sternum Medical Precautions: No active isolations Proper PPE donned/doffed in accordance with facility standards. Fall Risk: Sal Fall Risk Score: 35 (Medium Risk) Precautions/Restrictions: Sternal Precautions: No lifting greater than 10 lbs. Ok for modified UE precautions using Keep Your Move in the Tube technique Lines/Drains/Airways: tele Overall Cognitive Status: WFL Overall Orientation Status: Oriented x4 Family/Caregiver Present: none Objective Bed Mobility Sit to supine: SBA Pt up in chair upon arrival Pt performed via log roll technique and cues to maintain sternal precautions when performing bed mobility. Transfers/Mobility Sit to stand: SBA Stand to sit: SBA Sit to stand from chair Device(s) used: None Ambulation Ambulation 1 Assistive device(s) used: None Assist level: SBA Distance (ft): ~110 ft in [place] Quality of gait: decreased fouzia, decreased step height, no overt LOB noted. Mild SOB during ambulation and cues for pursed lip breathing. 1 standing rest break required. HR <80bpm during session Pt reports increased fatigue on this date and declined 2nd ambulation trial. Exercises Upper extremity: P&C's 1-9 x10 reps each Cues for pursed lip breathing and proper form. Plan Continue acute PT per plan of care. Safety/Education Safety Safety Devices in place: All fall risk precautions in place, call light within reach, left in bed, gait belt, and no alarms engaged upon entry Restraints: No Education Education Given To: patient Education Provided: PT Role, Gait Training, Home Exercise Program, Transfer Training, Equipment, Discharge Recommendations, Benefits of Increasing Activity, and Breathing Techniques Education Method: Verbal Barriers to Learning: None Education Outcome: Verbalized Understanding Outcome Measures AM-PAC AM-PAC Inpatient Mobility Raw Score (No Stairs) : 15 JH-HLM JH-HLM Score: Walked 25 ft or more (i.e. walked outside of room) Goals Patient Stated Goal: To be up walking independently and return to home soon Encounter Problems Encounter Problems (Active) Cardiac Patient will ambulate 300 feet or ambulate 5 minutes with independence with RPE of 14 or lower. (Progressing) Start: 06/19/25 Expected End: 07/03/25 Patient will be independent with P&C exercises. (Progressing) Start: 06/19/25 Expected End: 07/03/25 Patient will be independent with managing secretions and home walking program. (Progressing) Start: 06/19/25 Expected End: 07/03/25 Transfers Patient will perform bed mobility with independence in order to improve independence and prepare for out of bed mobility. (Progressing) Start: 06/19/25 Expected End: 07/03/25 Patient will complete functional transfer with no assistive device with independence in order to prepare for ambulation. (Progressing) Start: 06/19/25 Expected End: 07/03/25 Therapy Time Individual Co-treatment Time In 924 Time Out 936 Minutes 12 Timed Code Treatment Minutes: 12 Minutes (1 unit Gait) Andres Laurent PT Images from the original note were not included. [facility] Interventional Cardiology NAME: Richie Armas DATE OF : 1950 CHIEF COMPLAINT NSTEMI ASSESSMENT AND PLAN NSTEMI MD CAD s/p CABG x 3 Patient remains stable without angina. She is tolerating medical therapy. Will continue GDMT: lifelong aspirin, metoprolol, and high intensity statin. Recommend Plavix for NSTEMI when stable. Continue phase 1 cardiac rehab and IS. Reinforced protein intake. Lifestyle modification including: a heart-healthy diet (low in fat and cholesterol). Plan for phase 2 cardiac rehab with exercise for 30 minutes a day 3 or more days a week once cleared by CTS. Weight loss. Avoid caffeine, alcohol and tobacco products. Reduce stress. Raynaud's Recommend resuming her nifedipine at low dose if appropriate for symptom management. Discussed with primary team, who will address. Hyperlipidemia, stable Last LDL 190 above recommended goal of <55 mg/dL per ESC guidelines. Last LFTs were stable. Continue high intensity rosuvastatin. Follow heart healthy diet (low in fat and cholesterol). Blood loss anemia S/p 1 unit RBCs. H&H remains stable. Prediabetes Last HgbA1c was 5.8%, well controlled, goal <7.5%. Continue current therapy. Follow ADA SUBJECTIVE Richie Armas is an 75 y.o. female presents from [facility] on 06/14/25 with past medical history significant for CKD stage II, Raynaud's, fibromyalgia, chronic back pain s/p lumbar spinal surgery, hypothyroidism, GERD, IBS and anxiety and depression. When patient presented to the hospital she reported increase chest pain during her daily walks for about 1 week. She initially thought it may be 2/2 GERD but became concerned when CP did not resolve with rest. She was found to be NSTEMI. Her LHC at [facility] showed MVCAD. She was transferred to [facility] for CABG evaluation. She had a normal TTE with EF 50% on 06/15. She underwent CABG x [address] Hinson 06/18. Today POD 3. CXR mild pulmonary congestion. VS stable. She is on room air. BMP stable. H&H dropped. Platelets improved. She was ordered dose of furosemide. She is up to the chair. She feels better now that CT is out. Her breathing is good. Gets fatigued with PT. No CP, SOB, or palpitations. Appetite remains down. She move her bowels. No acute events overnight. Allergies[1] Medical History[2] OBJECTIVE Vitals: 06/21/25 0900 06/21/25 1000 06/21/25 1100 06/21/25 1200 BP: 129/65 (!) 103/49 107/54 116/66 BP Location: Left arm Patient Position: Lying Pulse: 65 54 59 Resp: 17 Temp: 36.9 C (98.4 F) TempSrc: Temporal SpO2: 98% Weight: Height: Intake/Output Summary (Last 24 hours) at 06/21/2025 1254 Last data filed at 06/21/2025 1116 Gross per 24 hour Intake 550 ml Output 825 ml Net -275 ml MEDICATIONS Scheduled Meds[3] INFUSION MEDICATIONS Continuous Meds[4] Physical Exam Constitutional: General: She is not in acute distress. Appearance: Normal appearance. Neck: Vascular: No JVD. Cardiovascular: Rate and Rhythm: Normal rate and regular rhythm. Pulses: Normal pulses. Heart sounds: Normal heart sounds. No murmur heard. Pulmonary: Effort: Pulmonary effort is normal. Breath sounds: Normal breath sounds. No rales. Chest: Comments: Mid sternal incision is dry and well approximated Skin: General: Skin is warm and dry. Findings: Bruising present. Neurological: Mental Status: She is alert and oriented to person, place, and time. Psychiatric: Mood and Affect: Mood normal. Speech: Speech normal. LAB VALUES AND TESTING REVIEWED Lab Results Component Value Date NA 135 (L) 06/21/2025 K 4.0 06/21/2025 CL 101 06/21/2025 CO2 25 06/21/2025 BUN 11 06/21/2025 CREATININE 0.75 06/21/2025 GLUCOSE 113 06/21/2025 CALCIUM 8.9 06/21/2025 MG 1.7 06/21/2025 PHOS 3.3 06/18/2025 Lab Results Component Value Date ALT 7 06/18/2025 AST 31 06/18/2025 ALKPHOS 52 06/18/2025 BILITOT 0.3 06/18/2025 Lab Results Component Value Date WBC 8.0 06/21/2025 HGB 7.7 (L) 06/21/2025 HCT 24.5 (L) 06/21/2025 MCV 95.7 06/21/2025 PLT 122 (L) 06/21/2025 Lab Results Component Value Date CHOL 295 (H) 06/15/2025 Lab Results Component Value Date HDL 79 06/15/2025 Lab Results Component Value Date TRIG 129 06/15/2025 Lab Results Component Value Date LDLCALC 190 (H) 06/15/2025 Lab Results Component Value Date TSH 2.71 06/14/2025 Lab Results Component Value Date HGBA1C 5.8 (H) 06/16/2025 CARDIAC TESTS TELEMETRY FINDINGS: SB-NSR with ventricular rate 50-70 bpm no ectopy EKG: Encounter Date: 06/14/25 ECG 12 lead Result Value Heart Rate 67 QRSD Interval 100 QT Interval 407 QTC Interval 430 P Babylon 48 QRS [place] 61 T Wave [place] 0 OH Interval 150 Impression Sinus rhythm Tracing reviewed ECHOCARDIOGRAM: 06/14/25 TRANSTHORACIC ECHOCARDIOGRAM (TTE) COMPLETE (CONTRAST/BUBBLE/3D PRN) 06/16/2025 8:47 AM (Final) Interpretation Summary Left Ventricle: Left ventricle size is normal. Normal wall thickness. Normal left ventricular systolic function. EF by visual approximation is 50%. EF by 2D Simpsons Biplane is 63%. See diagram for wall motion findings. Right Ventricle: Right ventricle size is normal. Normal systolic function. Aortic Valve: Mildly thickened cusps. Mildly calcified cusps. Cusp sclerosis. Trace regurgitation. No stenosis. Mitral Valve: Mildly thickened leaflets. Calcified leaflets. Annular calcification. Mild (1+) regurgitation. No stenosis noted. Tricuspid Valve: RVSP is 22 mmHg. Left Atrium: Left atrium size is normal. Right Atrium: Right atrium size is normal. Aorta: Normal sized sinuses of Valsalva and ascending aorta. No significant valvular abnormalities. Signed by: Darius Patterson DO on 06/16/2025 8:47 AM ADDITIONAL TESTING REVIEWED === 06/14/25 === XR CHEST 1 VIEW - Impression - Cardiomegaly and pulmonary venous congestion. Left basilar atelectasis. Report Dictated on Electronically Signed By: Brandon Roldan MD Electronically Signed Date/Time: 06/21/2025 6:54 AM EDT Tammi Boateng MSN, TRANSITIONAL CARE MANAGER, LIBRARY TECHNICAL ASSISTANT-C - Date of Service: 06/14/2025 Nurse Practitioner in Interventional Cardiology [facility] - Cardiology [1] Allergies Allergen Reactions Flexeril [Cyclobenzaprine] Itching [2] History reviewed. No pertinent past medical history. [3] acetaminophen, 1,000 mg, Oral, q8h aspirin, 81 mg, Oral, Daily bisacodyl, 10 mg, Rectal, Daily chlorhexidine, , Topical, Daily enoxaparin, 40 mg, SubCUTAneous, q24h levothyroxine, 50 mcg, Oral, qAM AC Lidocaine, 1 patch, Topical, Daily metoprolol tartrate, 25 mg, Oral, BID pantoprazole, 40 mg, Oral, qAM AC polyethylene glycol (PEG) 3350, 17 g, Oral, Daily rosuvastatin, 40 mg, Oral, Daily senna-docusate sodium, 2 tablet, Oral, Nightly simethicone, 80 mg, Oral, 4x daily sodium chloride 0.9%, 5-40 mL, IntraCATHeter, q8h [4] lactated ringers, 250 mL, Last Rate: Stopped (06/18/25 191) Images from the original note were not included. Cardiothoracic Surgery/Critical Care Daily Progress Note PATIENT NAME: Richie Armas DATE: 06/21/25 HPI: 75 year old female patient with PMHx that includes CKD2, Raynaud's, anxiety/depression, IBS/constipation, GERD, fibromyalgia, hypothyroidism, chronic low back pain S/P lumbar spinal surgery that presented to [facility] on 06/14/2025 from [facility]. Patient reports worsening chest pain associated with daily walks which started approximately 1 week ago. Initially she attributed this to her prior diagnosis of GERD but when she experienced pain 06/14 that did not resolve with rest she presented to [facility] ED. LHC at [facility] demonstrated severe multivessel disease and she was transferred to [facility] for CABG evaluation. Agreeable to CABG, went to OR on 06/18/25. Surgery/Procedure: 06/18/25: Dr. Johnston- CABG x3, ANTONIO, LEVH Interval History: 06/21/25, POD# 3: Afebrile, BP stable overnight -> on hypertensive side this am, on RA, NSR on tele. No acute events overnight. Patient awake, alert, sitting up in bed, NAD. She reports sleeping well last night. Objective: CT output cc/24hrs: 40 UO cc/24hrs: unmeasured Last BM Date: 06/20/25 Vitals: BP: 143/98, MAP (mmHg): 75, BP Method: Automatic Heart Rate: 70 Resp: 18 Temp: 36.5 C (97.7 F), Temp Source: Temporal BMI (Calculated): 25.25 Pacer Wires: Temporary Wires: Epicardial Wire Status: Ventricular unipolar wire(s) CXR: BMP: Recent Labs 06/18/25 1515 06/19/25 0032 06/20/25 0010 06/21/25 0253 NA 137 139 134* 135* K 4.4 4.1 3.9 4.0 CL 109* 109* 101 101 CO2 20* 20* 25 25 BUN 12 10 13 11 CREATININE 0.80 0.68 0.76 0.75 CALCIUM 10.6* 8.2* 9.0 8.9 MG 5.2* 2.3 2.0 1.7 PHOS 3.3 -- -- -- CBC: Recent Labs 06/19/25 0032 06/19/25 0033 06/19/25 0817 06/20/25 0010 06/21/25 0253 WBC 7.8 -- -- 7.6 8.0 HGB 8.8* < > 9.9 8.8* 7.7* HCT 26.7* -- -- 27.1* 24.5* PLT 110* -- -- 112* 122* MCV 95.4 -- -- 94.8 95.7 RDW 15.7* -- -- 15.7* 15.5* < > = values in this interval not displayed. INR: Recent Labs 06/18/25 1515 06/19/25 0032 INR 1.4* 1.1 Physical Exam Vitals reviewed. Eyes: Pupils: Pupils are equal, round, and reactive to light. Neck: Comments: Central line RIJ Cardiovascular: Rate and Rhythm: Normal rate and regular rhythm. Pulses: Normal pulses. Heart sounds: Normal heart sounds, S1 normal and S2 normal. Pulmonary: Effort: Pulmonary effort is normal. Breath sounds: Normal breath sounds. Abdominal: General: Bowel sounds are normal. Palpations: Abdomen is soft. Comments: Previous CT site with dressing c/d/i Musculoskeletal: Left lower leg: Edema present. Skin: General: Skin is warm and dry. Capillary Refill: Capillary refill takes less than 2 seconds. Findings: Bruising and ecchymosis present. Comments: Surgical Incisions: well approximate; clean dry with no drainage noted. Surrounding skin no redness, warmth, or signs of infection noted. Neurological: Mental Status: She is alert and oriented to person, place, and time. Assessment: MVCAD s/p CABG NSTEMI HLD Raynaud's Osteoporosis Anxiety/depression Chronic back pain IBS/constipation Hypothyroidism Post operative Pulm Management: Normal Post-operative Course Post-operative Atrial Fibrillation: []Yes [x] No Acute blood loss anemia/consumptive thrombocytopenia Plan: Patient Status: Telemetry Continue ASA, statin, metoprolol Lasix x1 this morning Bowel regimen: suppository, lactulose, Miralax/senna Continue progressive activity Daily labs and CXR GI prophy: PO protonix, Reglan, simethicone DVT prophy:TEDs, SCDs, and Lovenox SubQ Continue dialudid & oxycodone prn for pain management Remove CVC possibly today PT/OT recs: Home with assist prn, Home with Home health PT/OT Pulmonary hygiene: IS and Acapella Consults: Endocrinology: insulin management- signed off Cardiology following Disposition: Home with assist PRN (06/20/25) Central Line: [x]Yes [] No Arterial Line: []Yes [x] No [place]: []Yes [x] No Restraints: []Yes [x] No Patient discussed and plan of day developed from multidisciplinary rounds between Cardiothoracic Surgery (Cardiothoracic Surgeon, CRISTIANO) and Critical Care Attending Cardiac Core Medications: ASA, Statin, and BB EF: TTE 06/16/25- EF 50% Blood Conservation: transfused Locomotive Switch Operator: Sandra cardiology I have personally performed a [id number] diagnostic evaluation on this patient on date of service 06/21/25. History, labs, imaging studies, and electronic medical record have been reviewed by me. This note was initially documented by the ACNP-student under my direct supervision. I have reviewed and changed any elements of this note to reflect my decision making in the care plan of this patient. Tele Status A total of 20 minutes were spent between the [id number] encounter, physical exam, reviewing the medical history, coordinating the patient's care, counseling/educating the patient, ordering medications/test/procedures, interpreting results and documenting clinical information in the patients electronic health record on the day of the encounter. The patient was seen and examined Cosigned by Latrell Kidd DO at 06/22/2025 6:20 PM EDT Images from the original note were not included. PHYSICAL THERAPY [facility] Treatment Note Name/MRN: Richie Armas ([id number]) Date of : 1950 Age: 75 y.o. Room/Bed: T1-101/T1-101 A Discharge Recommendation: Home with assist PRN, Home with Home health PT Other: TBD- does not own DME Assessment Session split in two this date d/t Afib with HR 150-160 at times during walking in the AM. HR improved to the 60's in the PM. SBA for transfers and walking in the halls with the FWW. Cues for sternal precautions. Recommend disch to home with assist PRN and home health PT. Subjective AM: Pt on the toilet and agreeable to PT. Requested to return to bed after walking d/t light headedness and reporting chest feeling like its vibrating. HR noted to be up to 160bpm. RN in to administer metropolol. PM: Pt up standing in the room with her , agreeable to P&C exercises. Reported feeling much better. Pain: RN managing pain. [place] Pain Ratin = Hurts even more Pain Location: Sternum Medical Precautions: No active isolations Proper PPE donned/doffed in accordance with facility standards. Fall Risk: Sal Fall Risk Score: 60 (High Risk) Precautions/Restrictions: In AM, Chest tube and tele. Chest tube removed before PM session. Only on tele in PM. Overall Cognitive Status: WNL Overall Orientation Status: Oriented x4 Family/Caregiver Present: spouse present in PM Objective Bed Mobility Sit to supine: Mod Assist Scooting: SBA +Log roll to return to bed Transfers/Mobility Sit to stand: SBA Stand to sit: SBA Device(s) used: Front wheeled walker Ambulation Ambulation 1 Assistive device(s) used: Front wheeled walker Assist level: SBA Distance (ft): 110 ft x 2 in [place] Quality of gait: slow fouzia, SOB and feeling heavy in the chest. HR 150-160bpm. RN medicated afterwards. Balance During Session: Posture: fair Sitting - Static: Independent Sitting - Dynamic: SBA Standing - Static: SBA Standing - Dynamic: Contact Guard Exercises Exercises Upper Extremity: P&C's 1-9 x 10 each Comments: Cues for pursed lip breathing. IS x 5: 750-1000mL Exercises in the PM Plan Continue acute PT per plan of care. Safety/Education Safety Safety Devices in place: Left in bed in the AM with RN for meds. Left in chair in the PM with and RN notified pt was ready for another walk. Restraints: No Education Education Given To: patient Education Provided: PT Role, PT Goals, Gait Training, Plan of Care, Home Exercise Program, Precautions, Transfer Training, Discharge Recommendations, Benefits of Increasing Activity, and Breathing Techniques Education Method: Verbal and Demonstration Barriers to Learning: None Education Outcome: Demonstrated Understanding Outcome Measures AM-PAC AM-PAC Inpatient Mobility Raw Score (No Stairs) : 18 JH-HLM -HLM Score: Walked 25 ft or more (i.e. walked outside of room) Goals Patient Stated Goal: To be a model patient. To be up walking Indep and return to home soon Encounter Problems Encounter Problems (Active) Cardiac Patient will ambulate 300 feet or ambulate 5 minutes with independence with RPE of 14 or lower. (Not Addressed) Start: 06/19/25 Expected End: 07/03/25 Patient will be independent with P&C exercises. (Progressing) Start: 06/19/25 Expected End: 07/03/25 Patient will be independent with managing secretions and home walking program. (Progressing) Start: 06/19/25 Expected End: 07/03/25 Transfers Patient will perform bed mobility with independence in order to improve independence and prepare for out of bed mobility. (Progressing) Start: 06/19/25 Expected End: 07/03/25 Patient will complete functional transfer with no assistive device with independence in order to prepare for ambulation. (Progressing) Start: 06/19/25 Expected End: 07/03/25 Therapy Time Individual Co-treatment Time In 0910 Time Out 0928 Minutes 18 Timed Code Treatment Minutes: (x1 Gait, x1 TP) Variance: 10 (+ 10 mins from 0089-9600) Brianna Wright PT Images from the original note were not included. Cardiothoracic Surgery Note PATIENT NAME: Richie Armas : 1950 (75 y.o.) TODAY'S DATE: 06/20/2025 Objective: BP 122/64 Pulse 71 Temp 36.3 C (97.4 F) (Temporal) Resp 16 Ht 5' 3 (1.6 m) Wt 142 lb 8 oz (64.6 kg) SpO2 99% BMI 25.24 kg/m Chest tubes assessed: no air leak, subcutaneous air noted. Chest tubes removed without difficulty and dressing applied. Patient tolerated well. Patient and nurse educated on possible complications to observe for. Will continue to monitor. Images from the original note were not included. Cardiothoracic Surgery/CCM Progress Note PATIENT NAME: Richie Armas DATE: 06/20/25 HPI: Richie Armas is a 75 year old female patient with PMHx that includes CKD2, Raynaud's, anxiety/depression, IBS/constipation, GERD, fibromyalgia, hypothyroidism, chronic low back pain S/P lumbar spinal surgery that presented to [facility] on 06/14/2025 from [facility]. Patient reports worsening chest pain associated with daily walks which started approximately 1 week ago. Initially she attributed this to her prior diagnosis of GERD but when she experienced pain 06/14 that did not resolve with rest she presented to [facility] ED. LHC at [facility] demonstrated severe multivessel disease and she was transferred to [facility] for CABG evaluation. Agreeable to CABG, went to OR on 06/18/25. Surgery/Procedure: 06/18/25: Dr. Johnston- CABG x3, ANTONIO, LEVH Interval History: 06/20/25, POD# 02. Afebrile, NSR on tele, BP stable->more on HTN side this AM, on RA. Denies abdominal pain and nausea, gastric bubble slightly improved. Patient states she is passing gas, had small BM overnight. Pain tolerable. Objective: CT output cc/24hrs: 260 UO cc/24hrs: 760 Last BM Date: 06/17/25 Vitals: BP: 156/68, MAP (mmHg): 88, BP Method: Automatic Heart Rate: (!) 148 Resp: 16 Temp: 36.3 C (97.4 F), Temp Source: Temporal BMI (Calculated): 25.25 BMP: Recent Labs 06/18/25 1515 06/19/25 0032 06/20/25 0010 NA 137 139 134* K 4.4 4.1 3.9 CL 109* 109* 101 CO2 20* 20* 25 BUN 12 10 13 CREATININE 0.80 0.68 0.76 CALCIUM 10.6* 8.2* 9.0 MG 5.2* 2.3 2.0 PHOS 3.3 -- -- CBC: Recent Labs 06/18/25 1515 06/18/25 1933 06/19/25 0032 06/19/25 0033 06/19/25 0453 06/19/25 0817 06/20/25 0010 WBC 6.5 -- 7.8 -- -- -- 7.6 HGB 8.2 7.3* 9.2 8.8* 8.8* < > 9.0 9.9 8.8* HCT 22.5* 26.5* 26.7* -- -- -- 27.1* PLT 99* -- 110* -- -- -- 112* MCV 97.0 -- 95.4 -- -- -- 94.8 RDW 13.6 -- 15.7* -- -- -- 15.7* < > = values in this interval not displayed. INR: Recent Labs 06/18/25151406/19/25 0032 INR 1.4* 1.1 Physical Exam Vitals reviewed. Constitutional: General: She is not in acute distress. Appearance: She is not ill-appearing or diaphoretic. Neck: Comments: Central line. Cardiovascular: Rate and Rhythm: Normal rate and regular rhythm. Pulses: Normal pulses. Heart sounds: No murmur heard. Pulmonary: Breath sounds: No wheezing or rales. Abdominal: Palpations: Abdomen is soft. Comments: Chest tubes. Genitourinary: Comments: Corado. Skin: General: Skin is warm and dry. Capillary Refill: Capillary refill takes less than 2 seconds. Findings: Bruising present. Comments: Surgical incisions well approximated, no redness, warmth or drainage noted. Neurological: General: No focal deficit present. Mental Status: She is alert. Assessment: MVCAD s/p CABG NSTEMI HLD Raynaud's Osteoporosis Anxiety/depression Chronic back pain IBS/constipation Hypothyroidism Post operative Pulm Management: Normal Post-operative Course Post-operative Atrial Fibrillation: []Yes [x] No Acute blood loss anemia/consumptive thrombocytopenia Plan: Patient status: ICU Tachy, possible afib this AM, self converted. -Monitor, may need amio bolus and gtt. Continue aspirin and statin. Start BB today, 25mg BID. Bowel regimen +suppository, simethicone and reglan. Add lactulose TID today. -If no BM today, consider methylnaltrexone tomorrow. -Patient had constipation pre-op. Toradol 15mg q6h today. -Limit narcotics if able. Out of bed for meals. Remove corado. Monitor chest tube output, can consider removing if minimal output through the AM. Progressive mobility. Daily labs and CXR. GI prophy: IV protonix DVT prophy:TEDs, SCDs, and Lovenox SubQ Pulmonary hygiene: IS and Acapella Consults: Endocrinology. PT/OT: Home with assist PRN (06/20/25) TCC/Discharge Planning: TBD. Central Line: [x]Yes [] No Arterial Line: []Yes [x] No Corado: [x]Yes [] No Restraints: []Yes [x] No Patient discussed and plan of day developed from multidisciplinary rounds between Cardiothoracic Surgery (Cardiothoracic Surgeon, CRISTIANO) and Critical Care Attending Critical Care time spent 20 minutes. The time involved in the performance of this care was exclusive of separately billable procedures, teaching time and treating other patients. The time was spent personally by myself for the following activities: examination of the patient, ordering and/or performing treatment, reviewing the laboratory and radiographic studies, and if applicable, ventilator management and blood gas interpretation. Cardiac Core Medications: ASA, Statin, and BB EF: 50% (06/16/25) Blood Conservation: None noted in post-operative period Locomotive Switch Operator: Sandra [facility] Cosigned by Latrell Kidd DO at 06/22/2025 6:20 PM EDT Department of Internal Medicine Division of Endocrinology, Diabetes, & Metabolism Endocrinology Note Patient Name: Richie Armas : 1950 AGE: 75 y.o. Room/Bed: T1-101/T1101 A Admission Date: 06/14/2025 Visit Date: 06/20/2025 Reason for Endocrine Consult: post heart Provider/Team Requesting Consult: cts PCP: PRAVEEN CRUM Outpt Plodder Operator: No ASSESSMENT: Stress hyperglycemia Steroid induced hyperglycemia Prediabetes Hypothyroidism CABGx3 HLD CKD PLAN: Blood sugars have been stable Stop Humalog low sliding scale and POCT checks Resume patient home levothyroxine dose Endocrine team will sign off at this time Poct prn Hypoglycemia management per protocol Carb controlled diet ANTICIPATED ENDOCRINE HOME GOING RECOMMENDATIONS: Optimized for Discharge from Endocrine standpoint: Yes Home Going Endocrine Rx Recommendations-- No diabetes medications Resume home levothyroxine dose Outpt Follow Up-- PCP SUBJECTIVE/HPI: CHIEF COMPLAINT: No chief complaint on file. S/p cabgx3 History of prediabetes Reports history of hypothyroidism on levothyroxine 50 mcg po daily per patient, managed by PCP, tsh 2.71 Bgl stable Up awake alert in bed Eating fairly well had breakfast Denies nausea vomiting abdominal pain VSS On full liquid diet Chest tube in place Spoke with team We will sign off at this time BGL below Stable on insulin drip 0.5/hr-will plan to transition off She is awake alert extubated up in chair currently Vitals are stable on O2 nasal cannula Chest tubes are in place Discussed prediabetes Patient not on any diabetes medications Did confirm her hypothyroidism history on levothyroxine at home follows PCP for this last labs were normal So far is only had water and richy jason will be on a full liquid diet today No current nausea vomiting noted Spoke with nursing Type of DM: Prediabetes Onset of DM: N/A Home DM Medication Regimen: N/A DM control (last A1c/glucose data): Lab Results Component Value Date HGBA1C 5.8 (H) 06/16/2025 Glucose Date/Time Value Ref Range Status 06/20/2025 08:05 AM 108 (H) 70 - 100 mg/dL Final 06/19/2025 09:40 PM 172 (H) 70 - 100 mg/dL Final 06/19/2025 04:46 PM 130 (H) 70 - 100 mg/dL Final 06/19/2025 11:01 AM 170 (H) 70 - 100 mg/dL Final 06/19/2025 09:02 AM 135 (H) 70 - 100 mg/dL Final 06/19/2025 07:00 AM 127 (H) 70 - 100 mg/dL Final Review of Systems All other systems reviewed and are negative. ROS negative except for those mentioned in HPI. OBJECTIVE: Vitals: 06/20/25 0515 06/20/25 0600 06/20/25 0700 06/20/25 0800 BP: 117/61 125/83 127/70 BP Location: Left arm Patient Position: Sitting Pulse: 74 76 73 Resp: 16 Temp: 36.3 C (97.4 F) TempSrc: Temporal SpO2: 99% Weight: 142 lb 8 oz (64.6 kg) Height: Physical Exam Vitals and nursing note reviewed. Constitutional: General: She is not in acute distress. Appearance: She is ill-appearing. She is not toxic-appearing. Interventions: Nasal cannula in place. HENT: Head: Normocephalic. Mouth/Throat: Mouth: Mucous membranes are moist. Cardiovascular: Rate and Rhythm: Normal rate. Pulmonary: Effort: Pulmonary effort is normal. Abdominal: Tenderness: There is no guarding. Musculoskeletal: Cervical back: Normal range of motion. Skin: General: Skin is warm and dry. Coloration: Skin is pale. Comments: Intact incision Neurological: Mental Status: She is alert and oriented to person, place, and time. Psychiatric: Mood and Affect: Mood normal. 24 hour intake/output: Intake/Output Summary (Last 24 hours) at 06/20/2025 0912 Last data filed at 06/20/2025 0700 Gross per 24 hour Intake 1364.84 ml Output 1005 ml Net 359.84 ml Diet: Adult diet Full liquid Medications (as per EMR): HomeMeds: Current Outpatient Medications Medication Instructions lubiprostone (AMITIZA) 24 mcg, 2 times daily with meals Scheduled Meds:Scheduled Meds[1] Continuous Infusions:Continuous Meds[2] PRN Meds:PRN Meds[3] Diagnostic Workup: I reviewed pertinent Laboratory results, Radiographic results, and Other Clinical Notes at the time of today's encounter. Labs: No components found for: LABA1C No components found for: EAG Lab Results Component Value Date NA 134 (L) 06/20/2025 K 3.9 06/20/2025 CL 101 06/20/2025 CO2 25 06/20/2025 BUN 13 06/20/2025 CREATININE 0.76 06/20/2025 GLUCOSE 146 (H) 06/20/2025 CALCIUM 9.0 06/20/2025 Lab Results Component Value Date CHOL 295 (H) 06/15/2025 Lab Results Component Value Date TRIG 129 06/15/2025 Lab Results Component Value Date HDL 79 06/15/2025 Lab Results Component Value Date LDLCALC 190 (H) 06/15/2025 No results found for: VLDL Lab Results Component Value Date CHOLHDLRATIO 4 06/15/2025 No results found for: [id number] Lab Results Component Value Date TSH 2.71 06/14/2025 Radiology reportsas per the Radiologist Radiology: ECG 12 lead Result Date: 06/16/2025 Sinus rhythm Probable left atrial enlargement Right axis deviation Low voltage, precordial leads Nonspecific T abnrm, anterolateral leads Electronically Signed On 06-16-2025 09:44:30 EDT by Selvin Lynch Transthoracic echocardiogram (TTE) complete with contrast, bubble, strain, and 3D PRN Result Date: 06/16/2025 Left Ventricle: Left ventricle size is normal. Normal wall thickness. Normal left ventricular systolic function. EF by visual approximation is 50%. EF by 2D Simpsons Biplane is 63%. See diagram for wall motion findings. Right Ventricle: Right ventricle size is normal. Normal systolic function. Aortic Valve: Mildly thickened cusps. Mildly calcified cusps. Cusp sclerosis. Trace regurgitation. No stenosis. Mitral Valve: Mildly thickened leaflets. Calcified leaflets. Annular calcification. Mild (1+) regurgitation. No stenosis noted. Tricuspid Valve: RVSP is 22 mmHg. Left Atrium: Left atrium size is normal. Right Atrium: Right atrium size is normal. Aorta: Normal sized sinuses of Valsalva and ascending aorta. No significant valvular abnormalities. ECG 12 lead Sinus rhythm Ventricular premature complex Minimal ST depression, anterolateral leads Electronically Signed On 06-14-2025 17:05:24 EDT by Thierno Germain History/Other: Past Medical History: Medical History[4] Past Surgical History: Surgical History[5] Allergy(ies): Allergies[6] Family History: Family History[7] Social History: Social History[8] Portions of the information within this encounter were entered using an electronic dictation system. Best attempts were made to edit/proofread the information prior to note completion. Despite the review of information, some errors may remain. If there are questions related to the information contained within the note please contact the signing physician directly. I spent 35 minutes with the pt which involved coordination of care, medical evaluation, review of records, and/or counseling of the pt regarding his/her condition/disease state/prognosis on the date of this note. [1] acetaminophen, 1,000 mg, Oral, q8h aspirin, 81 mg, Oral, Daily bisacodyl, 10 mg, Rectal, Daily chlorhexidine, , Topical, Daily chlorhexidine, 15 mL, Mouth/Throat, BID enoxaparin, 40 mg, SubCUTAneous, q24h insulin lispro, 0-6 Units, SubCUTAneous, TID WC lactulose, 20 g, Oral, TID levothyroxine, 50 mcg, Oral, qAM AC Lidocaine, 1 patch, Topical, Daily metoclopramide, 10 mg, IntraVENous, q6h mupirocin, , Nasal, BID pantoprazole, 40 mg, Oral, qAM AC polyethylene glycol (PEG) 3350, 17 g, Oral, Daily rosuvastatin, 40 mg, Oral, Daily senna-docusate sodium, 2 tablet, Oral, Nightly simethicone, 80 mg, Oral, 4x daily sodium chloride 0.9%, 5-40 mL, IntraCATHeter, q8h [2] lactated ringers, 250 mL, Last Rate: Stopped (06/18/251912) sodium chloride, 20 mL/hr, Last Rate: Stopped (06/19/252002) [3] PRN medications: albumin human, calcium gluconate, dextrose, dextrose, glucagon (rDNA), glucose, HYDROmorphone OR HYDROmorphone, ipratropium-albuterol, lactated ringers, magnesium hydroxide, magnesium sulfate OR magnesium sulfate, naloxone, ondansetron ODT OR ondansetron, oxyCODONE OR oxyCODONE, potassium chloride OR potassium chloride OR potassium chloride, potassium chloride CR, sodium chloride, sodium chloride 0.9% [4] History reviewed. No pertinent past medical history. [5] History reviewed. No pertinent surgical history. [6] Allergies Allergen Reactions Flexeril [Cyclobenzaprine] Itching [7] No family history on file. [8] Social History Tobacco Use Smoking status: Unknown Images from the original note were not included. OCCUPATIONAL THERAPY [facility] Treatment Note Name/MRN: Richie Armas ([id number]) Date of : 1950 Age: 75 y.o. Room/Bed: T1-101/T1-101 A Discharge Recommendation: Home with assist PRN, Home with Home health OT Equipment Needed: Yes Mobility Devices: ADL Assistive Devices ADL Assistive Devices: Shower Chair with back Prior Level of Function Prior Level of ADL Function: Independent Prior Level of Mobility: Independent; Device: None Prior Level of Transfers: Independent Assessment Pt was alert and oriented x4. She was feeling very nauseated today, nurse was bringing medication for that. Followed sternal precautions without cueing today. Pt is showing progress with therapy goals such as transfers and balance. Pt would benefit from continued OT services to increase ind with ADLs, fxl mobility and transfers. Recommending home with OT and assist as needed. Subjective Pt was agreeable to OT services. Pain: 0-10 pain scale: 5/10 Location: chest Medical Precautions: No active isolations Proper PPE donned/doffed in accordance with facility standards. Fall Risk: Sal Fall Risk Score: 45 (High Risk) Precautions/Restrictions: Sternal Precautions: No lifting greater than 10 lbs. Ok for modified UE precautions using Keep Your Move in the Tube technique Family/Caregiver Present: none Objective ADLs Toileting: Min Assist, to A c/ lines and to monitor balance and SOB. Grooming: Min Assist, to A c/ line and monitor balance c/ fww. Washed hands and brushed hair standing at sink. Transfers/Mobility Sit to stand: Supervision Stand to sit: Supervision Stand step: Supervision Toilet: Min Assist, to A c/ lines c/ fww. Functional mobility: Min Assist, to manage lines c/ fww and v/c to keep hips in fww. Device(s) used: Front wheeled walker Plan Continue acute OT per plan of care. Safety/Education Safety Safety Devices in place: All fall risk precautions in place, call light within reach, left in chair, gait belt, patient at risk for falls, nurse notified, and no alarms engaged upon entry Restraints: No Education Education Given To: patient Education Provided: OT Role, Plan of Care, Precautions, ADL Adaptive Strategies, Transfer Training, Energy Conservation, Equipment, Discharge Recommendations, and Benefits of Increasing Activity Education Method: Verbal Barriers to Learning: None Education Outcome: Verbalized Understanding AM-PAC AM-PAC Inpatient Daily Activity Raw Score: 21 ADL Inpatient CMS G-Code Modifier: CJ Goals Patient Stated Goal: go home Encounter Problems Encounter Problems (Active) Balance Patient will maintain dynamic standing balance for 5 minutes with supervision in order to demonstrate decreased risk of falling. (Initiated) Start: 06/19/25 Expected End: 07/17/25 Dressing Upper Extremities Patient will complete upper body dressing with Mod I. (Not Addressed) Start: 06/19/25 Expected End: 07/17/25 Dressings Lower Extremities Patient will dress lower body with Mod I. (Not Addressed) Start: 06/19/25 Expected End: 07/17/25 Grooming Patient will complete daily grooming tasks standing with Mod I. (Initiated) Start: 06/19/25 Expected End: 07/17/25 Safety Patient will recall/demonstrate sternal precautions with all functional mobility in order to promote healing and safety with functional tasks. (Initiated) Start: 06/19/25 Expected End: 07/17/25 Transfers Patient will complete functional transfer with least restrictive device with modified independence in order to prepare for ambulation. (Initiated) Start: 06/19/25 Expected End: 07/17/25 Patient will perform bed mobility with modified independence in order to improve independence and prepare for out of bed mobility. (Not Addressed) Start: 06/19/25 Expected End: 07/17/25 Therapy Time Individual Co-treatment Time In 804 Time Out 0830 Minutes 25 Timed Code Treatment Minutes: 23 Minutes Variance: 2 (item retrieval) 1 FA, 1 Self JJ Decker Cosigned by Mateo Us OT at 06/20/2025 9:49 AM EDT Images from the original note were not included. [facility] Interventional Cardiology NAME: Richie Armas DATE OF : 1950 CHIEF COMPLAINT NSTEMI ASSESSMENT AND PLAN NSTEMI MD CAD s/p CABG x 3 Patient is stable without angina, doing well at this time. Will continue GDMT: lifelong aspirin, and high intensity statin. Recommend low dose BB and Plavix for NSTEMI when stable. Continue phase 1 cardiac rehab and IS. Reinforced protein intake. Lifestyle modification including: a heart-healthy diet (low in fat and cholesterol). Plan for phase 2 cardiac rehab with exercise for 30 minutes a day 3 or more days a week once cleared by CTS. Weight loss. Avoid caffeine, alcohol and tobacco products. Reduce stress. Hyperlipidemia Last LDL 190 above recommended goal of <55 mg/dL per ESC guidelines. Last LFTs were stable. Continue high intensity rosuvastatin. Follow heart healthy diet (low in fat and cholesterol). Blood loss anemia S/p 1 unit RBCs. H&H stable. Prediabetes Last HgbA1c was 5.8%, well controlled, goal <7.5%. Continue current therapy. Follow ADA diet. See addendum for further recommendations. SUBJECTIVE Richie Armas is an 75 y.o. female presents from [facility] on 06/14/25 with past medical history significant for CKD stage II, Raynaud's, fibromyalgia, chronic back pain s/p lumbar spinal surgery, hypothyroidism, GERD, IBS and anxiety and depression. When patient presented to the hospital she reported increase chest pain during her daily walks for about 1 week. She initially thought it may be 2/2 GERD but became concerned when CP did not resolve with rest. She was found to be NSTEMI. Her LHC at [facility] showed MVCAD. She was transferred to [facility] for CABG evaluation. She had a normal TTE with EF 50% on 06/15. She underwent CABG x [address] Hinson 06/18. Today POD 2. CXR stable. BMP stable. H&H remains low. VS are stable. 1 L output, [address] She was weaned off of pressors yesterday. She is resting in bed. She has rib pain at CT site. She gets AGUILA with walking. Some swelling. She having some small BM. Appetite is fair. Sleeping poorly. She had nausea today, tolerating fluids. No PND, orthopnea, palpitations, or CP. Allergies[1] Medical History[2] OBJECTIVE Vitals: 06/20/25 0900 06/20/25 0923 06/20/25 1000 06/20/25 1100 BP: 156/68 156/68 125/62 122/64 BP Location: Patient Position: Pulse: 72 (!) 148 73 71 Resp: Temp: TempSrc: SpO2: Weight: Height: Intake/Output Summary (Last 24 hours) at 06/20/2025 1117 Last data filed at 06/20/2025 1018 Gross per 24 hour Intake 4611.47 ml Output 905 ml Net 3706.47 ml MEDICATIONS Scheduled Meds[3] INFUSION MEDICATIONS Continuous Meds[4] Physical Exam Constitutional: General: She is not in acute distress. Appearance: Normal appearance. Neck: Vascular: No JVD. Cardiovascular: Rate and Rhythm: Normal rate. Rhythm irregular. Pulses: Normal pulses. Heart sounds: Normal heart sounds. No murmur heard. Pulmonary: Effort: Pulmonary effort is normal. Breath sounds: Examination of the right-lower field reveals decreased breath sounds. Examination of the left-lower field reveals decreased breath sounds. Decreased breath sounds present. No rales. Chest: Comments: Mid sternal incision dry and well approximated CT in place Genitourinary: Comments: Urinary catheter in place Skin: General: Skin is warm and dry. Neurological: Mental Status: She is alert and oriented to person, place, and time. Psychiatric: Mood and Affect: Mood normal. Speech: Speech normal. LAB VALUES AND TESTING REVIEWED Lab Results Component Value Date NA 134 (L) 06/20/2025 K 3.9 06/20/2025 CL 101 06/20/2025 CO2 25 06/20/2025 BUN 13 06/20/2025 CREATININE 0.76 06/20/2025 GLUCOSE 146 (H) 06/20/2025 CALCIUM 9.0 06/20/2025 MG 2.0 06/20/2025 PHOS 3.3 06/18/2025 Lab Results Component Value Date ALT 7 06/18/2025 AST 31 06/18/2025 ALKPHOS 52 06/18/2025 BILITOT 0.3 06/18/2025 Lab Results Component Value Date WBC 7.6 06/20/2025 HGB 8.8 (L) 06/20/2025 HCT 27.1 (L) 06/20/2025 MCV 94.8 06/20/2025 PLT 112 (L) 06/20/2025 Lab Results Component Value Date CHOL 295 (H) 06/15/2025 Lab Results Component Value Date HDL 79 06/15/2025 Lab Results Component Value Date TRIG 129 06/15/2025 Lab Results Component Value Date LDLCALC 190 (H) 06/15/2025 Lab Results Component Value Date TSH 2.71 06/14/2025 Lab Results Component Value Date HGBA1C 5.8 (H) 06/16/2025 CARDIAC TESTS TELEMETRY FINDINGS: NSR with ventricular rate 60-70 bpm with PACs EKG: Encounter Date: 06/14/25 ECG 12 lead Result Value Heart Rate 67 QRSD Interval 100 QT Interval 407 QTC Interval 430 P [place] 48 QRS [place] 61 T Wave [place] 0 OH Interval 150 Impression Sinus rhythm Tracing reviewed ECHOCARDIOGRAM: 06/14/25 TRANSTHORACIC ECHOCARDIOGRAM (TTE) COMPLETE (CONTRAST/BUBBLE/3D PRN) 06/16/2025 8:47 AM (Final) Interpretation Summary Left Ventricle: Left ventricle size is normal. Normal wall thickness. Normal left ventricular systolic function. EF by visual approximation is 50%. EF by 2D Simpsons Biplane is 63%. See diagram for wall motion findings. Right Ventricle: Right ventricle size is normal. Normal systolic function. Aortic Valve: Mildly thickened cusps. Mildly calcified cusps. Cusp sclerosis. Trace regurgitation. No stenosis. Mitral Valve: Mildly thickened leaflets. Calcified leaflets. Annular calcification. Mild (1+) regurgitation. No stenosis noted. Tricuspid Valve: RVSP is 22 mmHg. Left Atrium: Left atrium size is normal. Right Atrium: Right atrium size is normal. Aorta: Normal sized sinuses of Valsalva and ascending aorta. No significant valvular abnormalities. Signed by: Darius Patterson DO on 06/16/2025 8:47 AM ADDITIONAL TESTING REVIEWED === 06/14/25 === XR CHEST 1 VIEW - Impression - Atelectasis in the right midlung and left lung base. Report Dictated on Electronically Signed By: Ladarius Luciano MD Electronically Signed Date/Time: 06/20/2025 8:01 AM EDT Tammi Boateng MSN, TRANSITIONAL CARE MANAGER, LIBRARY TECHNICAL ASSISTANT-C - Date of Service: 06/14/2025 Nurse Practitioner in Interventional Cardiology [facility] - Cardiology [1] Allergies Allergen Reactions Flexeril [Cyclobenzaprine] Itching [2] History reviewed. No pertinent past medical history. [3] acetaminophen, 1,000 mg, Oral, q8h aspirin, 81 mg, Oral, Daily bisacodyl, 10 mg, Rectal, Daily chlorhexidine, , Topical, Daily chlorhexidine, 15 mL, Mouth/Throat, BID enoxaparin, 40 mg, SubCUTAneous, q24h insulin lispro, 0-6 Units, SubCUTAneous, TID WC ketorolac, 15 mg, IntraVENous, q6h lactulose, 20 g, Oral, TID levothyroxine, 50 mcg, Oral, qAM AC Lidocaine, 1 patch, Topical, Daily metoclopramide, 10 mg, IntraVENous, q6h metoprolol tartrate, 25 mg, Oral, BID mupirocin, , Nasal, BID pantoprazole, 40 mg, Oral, qAM AC polyethylene glycol (PEG) 3350, 17 g, Oral, Daily rosuvastatin, 40 mg, Oral, Daily senna-docusate sodium, 2 tablet, Oral, Nightly simethicone, 80 mg, Oral, 4x daily sodium chloride 0.9%, 5-40 mL, IntraCATHeter, q8h [4] lactated ringers, 250 mL, Last Rate: Stopped (06/18/251912) Images from the original note were not included. OCCUPATIONAL THERAPY [facility] Initial Evaluation Name/MRN: Richie Armas ([id number]) Evaluation Date: 06/19/2025 Date of : 1950 Admission Date: 06/14/2025 4:44 PM Age: 75 y.o. Room/Bed: T1-101/T1-101 A Discharge Recommendation: Home with assist PRN, Home with Home health OT Equipment Needed: Yes Mobility Devices: ADL Assistive Devices ADL Assistive Devices: Shower Chair with back Assessment IMPRESSION: Pt presents to [facility] with NSTEMI s/p CABG x3 on 06/18. Pt is currently functioning at CGA for functional transfers, CGA for functional mobility with no device, CGA-SBA for ADLs. Pt is limited by sternal precautions, post op pain, decreased strength, balance, endurance, impacting ADL performance and will benefit from acute OT services to address noted deficits in preparation for home going. Pt is recommended for home with [facility] OT with PRN assist, children are flying in to assist at home for discharge. Admitting Diagnosis: NSTEMI Performance Deficits /Impairments: Increased Pain, Decreased Functional Mobility, Decreased ADL status, Decreased Strength, Decreased Safety Awareness, Decreased Endurance, Decreased Balance, Decreased ROM, and Decreased High Level IADLs Prognosis: Good Decision Making: Medium Complexity Subjective Pt presents in chair, pleasant and agreeable to OT, okay to see for therapy per consult with RN. Pain: RN managing pain. Past Medical History: Medical History[1] Past Surgical History: Surgical History[2] Admission Diagnosis: Patient Active Problem List Diagnosis Date Noted NSTEMI (non-ST elevation myocardial infarction) ([facility]) 06/14/2025 Medical Precautions: No active isolations Proper PPE donned/doffed in accordance with facility standards. Fall Risk: Sal Fall Risk Score: 35 (Medium Risk) Precautions/Restrictions: Sternal Precautions: No lifting greater than 10 lbs. Ok for modified UE precautions using Keep Your Move in the Tube technique tele, corado, chest tube Family/Caregiver Present: none Overall Cognitive Status: WFL Overall Orientation Status: Oriented x4 Social/Functional History Patient admitted from home. Lives With: Spouse who has dementia. Stepchildren are currently caring for spouse, Dtr and son are flying in assist pt and spouse upon return to home. 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 Prior Level of Function Prior Level of ADL Function: Independent Prior Level of Mobility: Independent; Device: None Prior Level of Transfers: Independent Objective ADLs LE Dressing: SBA, figure four sit to doff socks, CGA in standing for stability Toileting: pt with tali at this time Upper Extremity Assessment AROM: Unable to assess d/t sternal precautions, appears WFL distally PROM: Not assessed this session Strength: Not assessed this session. Bed Mobility Pt up in chair upon arrival Transfers/Mobility Sit to stand: Contact Guard Stand to sit: Contact Guard Sitting balance: SBA Standing balance: Contact Guard Functional mobility: Contact Guard Within room and in hallway with no device, mild instability but no overt LOB, good carryover of use of pillow for maintaining precautions Device(s) used: None Coordination: Normal Coordination Tone: Normal Tone Sensation: Not Assessed Vision: wears glasses, no acute changes Tremors: No Hearing: normal AM-PAC AM-PAC Inpatient Daily Activity Raw Score: 20 ADL Inpatient CMS G-Code Modifier: CJ Plan Pt would benefit from skilled acute OT services to address Strengthening, ROM, Gait Training, Balance Training, Self-Care/ADL Training, Functional Mobility Training, Endurance Training, Safety Education and Training, Pain Management, Home Management Training, and Patient/Caregiver Training. Frequency: 5x/weekfor 4 weeks Barriers: Pain, Impaired balance, Lower extremity weakness, Limited safety awareness, Decreased endurance, and New weightbearing/ROM restrictions Safety/Education Safety Safety Devices in place: All fall risk precautions in place, call light within reach, left in chair, nurse notified, and no alarms engaged upon entry Restraints: No Education Education Given To: patient Education Provided: OT Role, Plan of Care, ADL Adaptive Strategies, Transfer Training, Discharge Recommendations, and Benefits of Increasing Activity Education Method: Verbal Barriers to Learning: None Education Outcome: Verbalized Understanding Goals Patient Stated Goal: go home Encounter Problems Encounter Problems (Active) Balance Patient will maintain dynamic standing balance for 5 minutes with supervision in order to demonstrate decreased risk of falling. Start: 06/19/25 Expected End: 07/17/25 Dressing Upper Extremities Patient will complete upper body dressing with Mod I. Start: 06/19/25 Expected End: 07/17/25 Dressings Lower Extremities Patient will dress lower body with Mod I. Start: 06/19/25 Expected End: 07/17/25 Grooming Patient will complete daily grooming tasks standing with Mod I. Start: 06/19/25 Expected End: 07/17/25 Safety Patient will recall/demonstrate sternal precautions with all functional mobility in order to promote healing and safety with functional tasks. Start: 06/19/25 Expected End: 07/17/25 Transfers Patient will complete functional transfer with least restrictive device with modified independence in order to prepare for ambulation. Start: 06/19/25 Expected End: 07/17/25 Patient will perform bed mobility with modified independence in order to improve independence and prepare for out of bed mobility. Start: 06/19/25 Expected End: 07/17/25 Therapy Time Individual Co-Treatment Co-Evaluation Time In 1501 Time Out 1520 Minutes 19 Melanie Landry OT Patient's Occupational Therapy Plan of Care supervision is transferred to a [facility] Occupational Therapist. Goals and/or treatment plan was established in collaboration with patient/family/other representatives. [1] No past medical history on file. [2] No past surgical history on file. Images from the original note were not included. PHYSICAL THERAPY [facility] Initial Evaluation Name/MRN: Richie Armas ([id number]) Evaluation Date: 06/19/2025 Date of : 1950 Admission Date: 06/14/2025 4:44 PM Age: 75 y.o. Room/Bed: T1-101/T1-101 A Discharge Recommendation: Home with Home health PT, Home with assist PRN Other: TBD- does not own DME Assessment IMPRESSION: Pt is s/p CABG x3 06/18/25. She is currently CGA-Min assist for bed mobility, transfers and ambulation with the FWW in the halls. Pain is moderate (5/10). Pt is moving well and eager to return to home soon. She is normally active and walks daily at home. Anticipate she will continue to progress throughout LOS to return to home with assist from family as needed. Admitting Diagnosis: NSTEMI. S/p CABG x 3 on 06/18/25 Prognosis: good Performance Deficits /Impairments: Decreased Functional Mobility, Decreased ADL status, Decreased Endurance, Decreased Balance, and Decreased High Level IADLs Decision Making: Medium Complexity Subjective Pt in the bed and agreeable to PT. Reported she is feeling well for only having her surgery 24 hours ago. Pain: RN managing pain. [place] Pain Ratin = Hurts even more Pain Location: Sternum Past Medical History: Medical History[1] Past Surgical History: Surgical History[2] Admission Diagnosis: Patient Active Problem List Diagnosis Date Noted NSTEMI (non-ST elevation myocardial infarction) ([facility]) 06/14/2025 Medical Precautions: No active isolations Proper PPE donned/doffed in accordance with facility standards. Fall Risk: Sal Fall Risk Score: 35 (Medium Risk) Precautions/Restrictions: Sternal Precautions: No lifting greater than 10 lbs. Ok for modified UE precautions using Keep Your Move in the Tube technique Lines/Drains/Airways: x1 chest tube, corado, tele Family/Caregiver Present: none Overall Cognitive Status: WNL Overall Orientation Status: Oriented x4 Vision: Not Assessed Hearing: normal Social/Functional History Patient admitted from home. Lives With: Spouse who has dementia. Dtr and son are coming in to assist the while she is away and will be able to assist her upon return to home. 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 Prior Level of Function Prior Level of ADL Function: Independent Prior Level of Mobility: Independent; Device: None Prior Level of Transfers: Independent Objective Lower Extremity Assessment AROM: WNL PROM: Not assessed this session Strength: WFL 5/5 knee extension and ankle DF Sensation: Not assessed this session Balance: Balance During Session: Posture: good Sitting - Static: Independent Sitting - Dynamic: Independent Standing - Static: SBA Standing - Dynamic: Contact Guard Bed Mobility: Supine to sit: Min Assist Rolling to left: Min Assist Scooting: Min Assist Good log roll to exit the bed. Good awareness of sternal precautions Transfers Sit to stand: Contact Guard Stand to sit: Contact Guard Ambulation Ambulation 1 Assistive device(s) used: Front wheeled walker Assist level: Contact Guard Distance (ft): 90 ft x 2 Quality of gait: No LOB, B foot clearance, equal step length Exercises Ankle Pumps: x5 bilat LE's Upper Extremity: P&C's 1-4 x 10 each Comments: Cues for pursed lip breathing. IS x 5: 1000mL Outcome Measures AM-PAC How much HELP from another person do you currently need Turning from your back to your side while in a flat bed without using bedrails?: A Little Moving from lying on your back to sitting on the side of a flat bed without using bedrails?: A Little Moving to and from a bed to a chair (including a wheelchair)?: A Little Standing up from a chair using your arms (wheelchair or bedside chair)?: A Little Walking in a hospital room?: A Little Stair climbing assessed?: No AM-PAC Inpatient Mobility Raw Score (No Stairs) : 15 [facility] Score: Walked 25 ft or more (i.e. walked outside of room) Plan Pt would benefit from skilled acute PT services to address Strengthening, ROM, Gait Training, Balance Training, Self-Care/ADL Training, Functional Mobility Training, Endurance Training, Stair Training, and Positioning. Frequency: 5x/weekfor 2 weeks Barriers: Pain, Impaired balance, Decreased endurance, New weightbearing/ROM restrictions, and Limited family support Safety/Education Safety Safety Devices in place: call light within reach, left in chair, patient at risk for falls, and nurse notified Restraints: No Education Education Given To: patient Education Provided: PT Role, PT Goals, Gait Training, Plan of Care, Home Exercise Program, Precautions, Transfer Training, Discharge Recommendations, Benefits of Increasing Activity, and Breathing Techniques Education Method: Verbal, Demonstration, and Printed Information Barriers to Learning: Education Outcome: Verbalized Understanding and Demonstrated Understanding What to expect after heart surgery booklet with P&C's. Sternal precautions. Use of IS hourly. Ambulating 3-4x daily. Discharge planning. Goals Patient Stated Goal: To be a model patient. To be up walking Indep and return to home soon Encounter Problems Encounter Problems (Active) Cardiac Patient will ambulate 300 feet or ambulate 5 minutes with independence with RPE of 14 or lower. Start: 06/19/25 Expected End: 07/03/25 Patient will be independent with P&C exercises. Start: 06/19/25 Expected End: 07/03/25 Patient will be independent with managing secretions and home walking program. Start: 06/19/25 Expected End: 07/03/25 Transfers Patient will perform bed mobility with independence in order to improve independence and prepare for out of bed mobility. Start: 06/19/25 Expected End: 07/03/25 Patient will complete functional transfer with no assistive device with independence in order to prepare for ambulation. Start: 06/19/25 Expected End: 07/03/25 Therapy Time Individual Co-Treatment Co-Evaluation Time In 1340 Time Out 1415 Minutes 35 Timed Code Treatment Minutes: (x1 TP) Brianna Wright PT Patient's Physical Therapy Plan of Care supervision is transferred to a [facility] Physical Therapist. Goals and/or treatment plan was established in collaboration with patient/family/other representatives. [1] No past medical history on file. [2] No past surgical history on file. Images from the original note were not included. Cardiothoracic Surgery/[facility] Progress Note PATIENT NAME: Richie Armas DATE: 06/19/25 HPI: Richie Armas is a 75 year old female patient with PMHx that includes CKD2, Raynaud's, anxiety/depression, IBS/constipation, GERD, fibromyalgia, hypothyroidism, chronic low back pain S/P lumbar spinal surgery that presented to [facility] on 06/14/2025 from [facility]. Patient reports worsening chest pain associated with daily walks which started approximately 1 week ago. Initially she attributed this to her prior diagnosis of GERD but when she experienced pain 06/14 that did not resolve with rest she presented to [facility] ED. LHC at [facility] demonstrated severe multivessel disease and she was transferred to [facility] for CABG evaluation. Agreeable to CABG, went to OR on 06/18/25. Surgery/Procedure: 06/18/25: Dr. Johnston- CABG x3, ANTONIO, LEVH Interval History: 06/19/25, POD# 01: Afebrile, NSR on tele, BP requiring low dose pressor support this AM, extubated post-op and on NIV. Sitting up in chair, pain present, denies nausea and abdominal pain though large gastric bubble noted on CXR. Overnight 2 amps bicarb given for acidosis. Was on nitroprusside for a period of time, then on levophed this AM. Current IV Drips: Insulin- 0.5units/hr Levophed- 0.01mcg/kg/min A-line: Arterial Line BP 1: 122/58 Invasive Hemodynamic Monitoring Blood Temperature: 36.8 C (98.2 F) PAP: PAP (Mean): 20 mmHg CVP (mmHg): 11 mmHg CO (L/min): 4.73 L/min CI (L/min/m2): 2.9 L/min/m2 Objective: CT output cc/24hrs: 370 UO cc/24hrs: 2,244 Last BM Date: 06/17/25 Vitals: BP: 115/57, MAP (mmHg): 76, BP Method: Automatic Heart Rate: 74 Resp: 17 Temp: 36.2 C (97.2 F), Temp Source: Core BMI (Calculated): 24.88 BMP: Recent Labs 06/18/25 0015 06/18/25 1515 06/19/25 0032 NA 133* 137 139 K 4.6 4.4 4.1 CL 102 109* 109* CO2 21* 20* 20* BUN 18 12 10 CREATININE 0.71 0.80 0.68 CALCIUM 8.9 10.6* 8.2* MG 2.1 5.2* 2.3 PHOS -- 3.3 -- CBC: Recent Labs 06/18/25 0015 06/18/25 0015 06/18/25 1515 06/18/25 1933 06/19/25 0032 06/19/25 0033 06/19/25 0309 06/19/25 0453 WBC 5.9 -- 6.5 -- 7.8 -- -- -- HGB 11.5* < > 8.2 7.3* 9.2 8.8* 8.8* 9.1 8.8 9.0 HCT 34.6* -- 22.5* 26.5* 26.7* -- -- -- PLT 190 -- 99* -- 110* -- -- -- MCV 94.3 -- 97.0 -- 95.4 -- -- -- RDW 13.3 -- 13.6 -- 15.7* -- -- -- < > = values in this interval not displayed. INR: Recent Labs 06/18/25 1515 06/19/25 0032 INR 1.4* 1.1 Physical Exam Vitals reviewed. Constitutional: General: She is not in acute distress. Appearance: She is not ill-appearing or diaphoretic. Neck: Comments: Central line and [place]berta. Cardiovascular: Rate and Rhythm: Normal rate and regular rhythm. Pulses: Normal pulses. Heart sounds: No murmur heard. Pulmonary: Breath sounds: No wheezing or rales. Comments: On NIV. Abdominal: Palpations: Abdomen is soft. Comments: Chest tubes. Genitourinary: Comments: Corado. Skin: General: Skin is warm and dry. Capillary Refill: Capillary refill takes less than 2 seconds. Findings: Bruising present. Comments: Surgical incisions well approximated, no redness, warmth or drainage noted. Neurological: General: No focal deficit present. Mental Status: She is alert. Assessment: MVCAD s/p CABG NSTEMI HLD Raynaud's Osteoporosis Anxiety/depression Chronic back pain IBS/constipation Hypothyroidism Post operative Pulm Management: Normal Post-operative Course Post-operative Atrial Fibrillation: []Yes [x] No Acute blood loss anemia/consumptive thrombocytopenia Plan: Patient status: ICU Check ABG this AM, if CO2 better transition to nasal cannula. Wean pressor support as able, goal MAP>65. -Remove arterial line once off pressors. Remove Elberta. Add toradol to pain regimen. -Will consider gabapentin or robaxin as well. Aggressive bowel regimen d/t patient's history of constipation. -Daily miralax, senokot, suppository. Large gastric bubble on CXR. -If nauseated, will need NG for decompression. Start simethicone and reglan. Aspirin and statin. -Hold BB for now. Full liquid diet->advance if patient tolerates. Progressive mobility. Wean O2 as able, goal SpO2>92%. Daily labs and CXR. GI prophy: IV protonix DVT prophy:TEDs, SCDs, and Lovenox SubQ Pulmonary hygiene: IS and Acapella Consults: Endocrinology. PT/OT: Will need assessed. TCC/Discharge Planning: TBD. Central Line: [x]Yes [] No Arterial Line: [x]Yes [] No Corado: [x]Yes [] No Restraints: []Yes [x] No Patient discussed and plan of day developed from multidisciplinary rounds between Cardiothoracic Surgery (Cardiothoracic Surgeon, CRISTIANO) and Critical Care Attending Critical Care time spent 25 minutes. The time involved in the performance of this care was exclusive of separately billable procedures, teaching time and treating other patients. The time was spent personally by myself for the following activities: examination of the patient, ordering and/or performing treatment, reviewing the laboratory and radiographic studies, and if applicable, ventilator management and blood gas interpretation. Cardiac Core Medications: ASA, Statin, and No BB due to hypotension EF: 50% (06/16/25) Blood Conservation: None noted in post-operative period Locomotive Switch Operator: Sandra Cardiology Cosigned by Latrell Kidd DO at 06/19/2025 4:35 PM EDT Associated attestation - Latrell Kidd DO - 06/19/2025 4:35 PM EDT I have personally performed a [id number] diagnostic evaluation on this patient on date of service 06/19/25. History, labs, imaging studies, and electronic medical record have been reviewed by me. This note documented by the CRISTIANO reflects my history, exam, and medical decision making. I have reviewed and agree with the care plan. Changes were made in the orders as necessary. ROS documentation was reviewed and negative unless otherwise stated in HPI. Additional pertinent interval history, ROS, and physical exam findings: AdmitDate = 06/14/2025 LOS: 5 ON Event(s): Yes, describe: Chest pain controlled at time of my afternoon eval. 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 NSTEMI Post op pulm mgmt Stress hyperglycemia hypothyroidism Plan: Agree with plan as documented in CRISTIANO Note. Ok w/ RT removing NIV from room. Will trial w/o tonight. Pain mgmt. Bowel regimen. PT/OT. Discussed with: [x]CRISTIANO []Consultants [x]RN []SW/TCC []Patient/Family []Other Disposition: Unchanged. Critical Care Time: 20min Or Noncritical Care Time: n/a Total time caring for this patient including direct patient contact, review of data including imaging and labs, discussions with other team members and physicians, excluding procedures. Pt extubated and transition to NIV 10/26 via Vent 980 per MD order. No adverse reactions noted and will continue to monitor [facility] Respiratory Care Department Progress Note Spontaneous Awakening Trial Wean Screen SpO2>/=88%: Yes (06/18/252036) FiO2</=50%: Yes (06/18/252036) PEEP </=8cmH2O: Yes (06/18/252036) HR <140 BPM: Yes (06/18/252036) RR </= 35 breaths/min: Yes (06/18/252036) MAP >/= 65mmHg: Yes (06/18/252036) Arterial pH >7.30: Yes (06/18/252036) Safety Screen Spontaneous Breathing Trial (SBT - RT) : Proceed with SBT - No exclusion criteria met (06/18/252036) Spontaneous Breathing Trial Weaning Start Time: 2155 (06/18/252155) Weaning Tidal Volume: 383 mL (06/18/252155) Weaning Respiratory Rate: 12 (06/18/252155) Spontaneous Minute Volume (MV): 4.4 (06/18/252155) Total RSBI: 31.33 (06/18/252155) Weaning Tolerance: Good (06/18/252155) Weaning Stop Time: 2145 (06/18/252143) Weaning Duration (min): 35 (06/18/252155) Spontaneous Breathing Trial (SBT - RT) Outcome: SBT Passed (06/18/252155) Vent Settings Vent Mode: Assist control (06/18/251999) Mandatory Type: VC+ (06/18/251999) Resp Rate (Set): 12 (06/18/251714) Vt (Set, mL): 310 mL (06/18/251714) FiO2 (%): 40 % (06/18/251999) PEEP/CPAP (cm H2O): 8 cm H20 (06/18/251714) Inspiratory Time (sec): 0.9 sec (06/18/251714) Vitals MAP (mmHg): 68 (06/18/251999) Heart Rate: 61 (06/18/251999) Resp: 19 (06/18/251999) SpO2: 99 % (06/18/251999) Suctioning/Secretions ABG results Recent Labs 06/18/25 1515 06/18/25 1933 PHART 7.394 7.300* [id number] 38.9 48.6* PO2ART 359.3* 159.7* [id number] 23.2 23.4 [id number] Ventilator Ventilator Does this patient meet criteria for termination of mechanical ventilation Yes- Notified physician below Name of physician notified via secure chat or in person : (NA if patient did not meet criteria) Comments: Thank you for involving Respiratory in the care of this patient, Images from the original note were not included. [facility] CCU PROGRESS NOTE Patient Name: Richie Armas : 1950 Subjective: Richie Armas is a 75 y.o. female with PMH CKD 2, Raynaud's, anxiety/depression, IBS/constipation, GERD, fibromyalgia, hypothyroidism, chronic low back pain S/P lumbar spinal surgery that presented to [facility] on 06/14/2025 from outside facility ([facility]). 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 Patient transferred to [facility] for CABG eval and loaded with ASA, heparin, started on nitroglycerin gtt. Echo on 06/16/25 showed normal LV function, EF 63%. Interval History: Overnight patient began experiencing an increase in CP, 10/10 substernal, was restarted on nitroglycerin gtt titrated up to 100, given IV fentanyl 50 mcg once and IV dilaudid 0.5 mg once. Continues to have minimal reflux-like sx today. Plan for CABG this afternoon. Hemodynamically stable. Review of Systems: Review of Systems Constitutional: Negative for chills and fever. Respiratory: Negative for cough and shortness of breath. Cardiovascular: Positive for chest pain. Negative for leg swelling. Gastrointestinal: Negative for abdominal pain, constipation and nausea. Neurological: Negative for headaches. Inpatient Medications: Scheduled Meds:Scheduled Meds[1] Continuous Infusions:Continuous Meds[2] PRN Meds used in the last 24hr: tizanidine 4 mg Objective: Physical Examination: BP 110/77 Pulse 71 Temp 37 C (98.6 F) (Temporal) Resp 18 Ht 5' 3 (1.6 m) Wt 133 lb 13.1 oz (60.7 kg) SpO2 91% BMI 23.71 kg/m Intake/Output Summary (Last 24 hours) at 06/18/2025 0615 Last data filed at 06/18/2025 0644 Gross per 24 hour Intake 1956 ml Output 1650 ml Net 306 ml Physical Exam Constitutional: General: She is not in acute distress. Cardiovascular: Rate and Rhythm: Normal rate and regular rhythm. Pulmonary: Effort: Pulmonary effort is normal. Breath sounds: Normal breath sounds. Abdominal: Palpations: Abdomen is soft. Tenderness: There is no abdominal tenderness. Musculoskeletal: Right lower leg: No edema. Left lower leg: No edema. Skin: General: Skin is warm and dry. Neurological: General: No focal deficit present. Mental Status: She is alert. Mental status is at baseline. Pertinent Labs: BMP: Lab Results Component Value Date NA 133 (L) 06/18/2025 K 4.6 06/18/2025 CL 102 06/18/2025 CO2 21 (L) 06/18/2025 BUN 18 06/18/2025 CREATININE 0.71 06/18/2025 GLUCOSE 100 06/18/2025 CALCIUM 8.9 06/18/2025 MG 2.1 06/18/2025 CBC: Lab Results Component Value Date WBC 5.9 06/18/2025 HGB 11.5 (L) 06/18/2025 HCT 34.6 (L) 06/18/2025 MCV 94.3 06/18/2025 PLT 190 06/18/2025 Cardiac profile: CK Date Value Ref Range Status 06/16/2025 105 30 - 185 U/L Final 06/16/2025 103 30 - 185 U/L Final 06/16/2025 99 30 - 185 U/L Final 06/15/2025 104 30 - 185 U/L Final 06/15/2025 88 30 - 185 U/L Final 06/15/2025 93 30 - 185 U/L Final 06/15/2025 85 30 - 185 U/L Final 06/14/2025 95 30 - 185 U/L Final CKMB Date Value Ref Range Status 06/16/2025 2.5 <=3.4 ng/mL Final 06/16/2025 2.7 <=3.4 ng/mL Final 06/16/2025 2.5 <=3.4 ng/mL Final 06/15/2025 2.7 <=3.4 ng/mL Final 06/15/2025 2.3 <=3.4 ng/mL Final 06/15/2025 2.6 <=3.4 ng/mL Final 06/15/2025 2.3 <=3.4 ng/mL Final 06/14/2025 2.7 <=3.4 ng/mL Final Coagulation: No results found for: INR, PTT Lipid panel: Lab Results Component Value Date CHOL 295 (H) 06/15/2025 HDL 79 06/15/2025 TRIG 129 06/15/2025 Other: Lab Results Component Value Date HGBA1C 5.8 (H) 06/16/2025 TSH 2.71 06/14/2025 Chest Imaging: CXR: === 06/14/25 === XR CHEST 1 VIEW - Impression - No line or tube is identified. Please correlate clinically. Report Dictated on Electronically Signed By: Brandon Roldan MD Electronically Signed Date/Time: 06/18/2025 5:09 AM EDT Cardiac Studies: Telemetry findings reviewed: NSR ECG: Encounter Date: 06/14/25 ECG 12 lead Result Value Heart Rate 100 QRSD Interval 101 QT Interval 363 QTC Interval 469 P [place] 76 QRS [place] 131 T Wave [place] 23 OH Interval 155 Impression Sinus tachycardia Probable left atrial enlargement Low voltage with right axis deviation Repol abnrm suggests ischemia, diffuse leads Echo: 06/14/25 TRANSTHORACIC ECHOCARDIOGRAM (TTE) COMPLETE (CONTRAST/BUBBLE/3D PRN) 06/16/2025 8:47 AM (Final) Interpretation Summary Left Ventricle: Left ventricle size is normal. Normal wall thickness. Normal left ventricular systolic function. EF by visual approximation is 50%. EF by 2D Simpsons Biplane is 63%. See diagram for wall motion findings. Right Ventricle: Right ventricle size is normal. Normal systolic function. Aortic Valve: Mildly thickened cusps. Mildly calcified cusps. Cusp sclerosis. Trace regurgitation. No stenosis. Mitral Valve: Mildly thickened leaflets. Calcified leaflets. Annular calcification. Mild (1+) regurgitation. No stenosis noted. Tricuspid Valve: RVSP is 22 mmHg. Left Atrium: Left atrium size is normal. Right Atrium: Right atrium size is normal. Aorta: Normal sized sinuses of Valsalva and ascending aorta. No significant valvular abnormalities. Signed by: Darius Patterson DO on 06/16/2025 8:47 AM Cath Report: No results found for this or any previous visit. Assessment/Plan HF NYHA Class [] I [] II [] III [] IV []Unable to assess [] N/A Anterolateral NSTEMI Severe Multivessel CAD HLD - Patient with increase in CP overnight, give IV pain meds, and increased nitroglycerin gtt - TTE (06/16/25): low normal LV function with lateral wall motion abnormality - Initial EKG findings: ST depressions in leads V3-V5, repeat EKG demonstrates ST depressions in V2-V5 - Emergent LHC (06/14/25): severe multivessel CAD (LAD 70%, subtotally occluded RCA, high-grade obtuse marginal vessel, EF 50%, anterolateral hypokinesis) - Trop peak 318 - LDL 190 - TSH 2.71 - A1c 5.8, prediabetes Plan: - CABG this afternoon - On heparin gtt and nitroglycerin gtt - Continue ASA 81 mg, coreg 6.25 mg BID, Imdur 320 mg daily - Continue zetia 10 mg BID, has prior attempted statin therapy, claims crippling myalgias, will not prescribe at this time, consider PCSK9 inhibitor as OP - Consider addition of LENI/ARB Insomnia Chronic Low Back Pain s/p Lumbar Spinal Surgery - Upon further conversation with pt, states she has chronic MSK pain and takes tramadol and tizanidine at home for this. Tramadol was held on admission, and subsequently, pt had more MSK pain 06/17 at nighttime which affected her sleep quality. Plan: - Hold home tramadol - Continue home tizanidine 4 mg q8 prn - Scheduled tylenol 650 mg q6, lidocaine patch q12, pt declines melatonin IBS Chronic Constipation - improving - Hold home lubiprostone - Miralax BID, Senokot-S BID, Milk of Magnesia BID - fleets enema x1, soap suds enema x1, lactulose x1 Raynaud's - Hold home Nifedipine 30 mg XL daily Osteoporosis - Hold home alendronate 70 mg daily Anxiety/Depression Fibromyalgia - Cont. Effexor 75 mg daily, amitriptyline 50 mg nightly Hypothyroidism - Cont. Synthroid 75 mcg daily GERD - Cont. PPI daily CKD2 - CTM - Goals of Care: Full Code - DVT Prophylaxis: Heparin Drip - GI Prophylaxis: Protonix daily - Diet: Cardiac - BMI Classification: Body mass index is 23.71 kg/m . - Disposition: Continue to monitor in CCU. [1] acetaminophen, 650 mg, Oral, 4 times per day lidocaine, 5 mL, Mouth/Throat, Once And aluminum & magnesium hydroxide-simethicone, 20 mL, Oral, Once amitriptyline, 50 mg, Oral, Nightly aspirin, 81 mg, Oral, Daily carvedilol, 6.25 mg, Oral, BID WC ceFAZolin, 2,000 mg, IntraVENous, Social Media Coordinator to OR chlorhexidine, , Topical, Once ezetimibe, 10 mg, Oral, Nightly isosorbide mononitrate ER, 30 mg, Oral, Daily [Held by provider] lactulose, 20 g, Oral, TID levothyroxine, 75 mcg, Oral, qAM AC [Held by provider] magnesium hydroxide, 30 mL, Oral, BID mupirocin, 1 Application, Nasal, BID mupirocin, , Topical, Once pantoprazole, 40 mg, Oral, qAM AC [Held by provider] polyethylene glycol (PEG) 3350, 17 g, Oral, BID senna-docusate sodium, 2 tablet, Oral, BID sodium chloride 0.9%, 5-40 mL, IntraVENous, q12h venlafaxine XR, 75 mg, Oral, Daily with breakfast [2] heparin, 5-30 Units/kg/hr, Last Rate: 15 Units/kg/hr (06/18/25 0130) nitroglycerin, 5-200 mcg/min, Last Rate: 90 mcg/min (06/18/25 0630) Cosigned by Sandip Quezada MD at 06/18/2025 1:14 PM EDT Associated attestation - Sandip Quezada MD - 06/18/2025 1:14 PM EDT I, Dr. Quezada saw and evaluated the patient on 06/18/2025. I personally obtained the figueroa and critical portions of the history and physical exam. I reviewed the chart and discussed the patient with the resident. I agree with the resident's medical decision making. 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 She initially thought she was having acid reflux-like symptoms but symptoms worsened with radiation to her arm so she presented at [facility]. She was found to have elevated troponin and underwent coronary angiography that showed multivessel coronary artery disease with subtotally occluded RCA, high-grade lesion obtuse marginal branch and obstructive disease in the LAD. She was subsequently transferred to [facility] for bypass consideration. The first night she was here she did have some mild discomfort. The patient has been maintained on nitroglycerin GGT along with heparin GGT. She was evaluated by the CT surgery team were planning on proceeding with bypass later on this week. The patient did have some worsening chest discomfort around 4 AM this morning. Prior nitroglycerin drip was uptitrated. This morning on my evaluation her pain was better controlled but and was down to 1 or 2 out of 10. She was on 100 mcg/min of the nitroglycerin drip. Her labs are stable this morning. Her hemodynamics are stable otherwise. She did have some spikes in her blood pressure due to chest discomfort. For her presentation with an NSTEMI, we will continue aspirin 81 mg daily and heparin GGT. due to recurrence of chest discomfort this morning, we did touch base with the CT surgery team and the plan would be to proceed with CABG later on today instead of waiting until tomorrow. Will continue the nitroglycerin GGT at this time. Continue carvedilol 6.25 mg twice daily and PPI. The patient does have reported intolerance to multiple statins in the past. Continue Zetia 10 mg daily that was started during this admission. She would be a good candidate for outpatient PCSK9 inhibitors upon discharge. Portions of the information within this encounter were entered using an electronic dictation system. Best attempts were made to proofread the information prior to note completion. Despite the review of the information, some errors may remain. If there are questions related to the information contained within the note please contact the signing provider directly. Sandip Quezada MD, [facility], [facility] Hydroelectric Production Technician [facility], [facility] [address] [address] p [phone] f [phone] [email or web address] Images from the original note were not included. [facility] CCU PROGRESS NOTE Patient Name: Richie Armas : 1950 Subjective: Richie Armas is a 75 y.o. female with PMH CKD 2, Raynaud's, anxiety/depression, IBS/constipation, GERD, fibromyalgia, hypothyroidism, chronic low back pain S/P lumbar spinal surgery that presented to [facility] on 06/14/2025 from outside facility ([facility]). 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 Patient transferred to [facility] for CABG eval and loaded with ASA, heparin, started on nitroglycerin gtt. Echo on 06/16/25 showed normal LV function, EF 63%. Interval History: No overnight events. Hemodynamically stable. Patient reports bowels are finally starting to move. Does report some difficulty sleeping last night, apparently takes tramadol 100 mg at home for sleep, will start mirtazapine 7.5 mg. Remains on heparin gtt, she is off nitroglycerin gtt without symptoms. Plan for CABG on . Review of Systems: Review of Systems Constitutional: Negative for chills and fever. Respiratory: Negative for cough and shortness of breath. Cardiovascular: Negative for chest pain and leg swelling. Gastrointestinal: Positive for constipation. Negative for abdominal distention, abdominal pain and nausea. Neurological: Negative for headaches. Inpatient Medications: Scheduled Meds:Scheduled Meds[1] Continuous Infusions:Continuous Meds[2] PRN Meds used in the last 24hr: vistaril 25 mg x1, tylenol 650 mg x1 , tizanidine 4 mg x1 Objective: Physical Examination: BP 123/71 Pulse 67 Temp 36.4 C (97.5 F) (Temporal) Resp 20 Ht 5' 3 (1.6 m) Wt 134 lb 14.7 oz (61.2 kg) SpO2 96% BMI 23.90 kg/m Intake/Output Summary (Last 24 hours) at 06/17/2025 0616 Last data filed at 06/16/2025 1809 Gross per 24 hour Intake 1578 ml Output -- Net 1578 ml Physical Exam Constitutional: General: She is not in acute distress. Cardiovascular: Rate and Rhythm: Normal rate and regular rhythm. Pulmonary: Effort: Pulmonary effort is normal. Breath sounds: Normal breath sounds. Abdominal: Palpations: Abdomen is soft. Tenderness: There is no abdominal tenderness. Musculoskeletal: Right lower leg: No edema. Left lower leg: No edema. Skin: General: Skin is warm and dry. Neurological: General: No focal deficit present. Mental Status: She is alert. Mental status is at baseline. Pertinent Labs: BMP: Lab Results Component Value Date NA 135 (L) 06/17/2025 K 4.1 06/17/2025 CL 103 06/17/2025 CO2 25 06/17/2025 BUN 10 06/17/2025 CREATININE 0.72 06/17/2025 GLUCOSE 93 06/17/2025 CALCIUM 8.0 (L) 06/17/2025 MG 2.1 06/17/2025 CBC: Lab Results Component Value Date WBC 5.9 06/17/2025 HGB 11.0 (L) 06/17/2025 HCT 33.3 (L) 06/17/2025 MCV 94.6 06/17/2025 PLT 183 06/17/2025 Cardiac profile: CK Date Value Ref Range Status 06/16/2025 105 30 - 185 U/L Final 06/16/2025 103 30 - 185 U/L Final 06/16/2025 99 30 - 185 U/L Final 06/15/2025 104 30 - 185 U/L Final 06/15/2025 88 30 - 185 U/L Final 06/15/2025 93 30 - 185 U/L Final 06/15/2025 85 30 - 185 U/L Final 06/14/2025 95 30 - 185 U/L Final CKMB Date Value Ref Range Status 06/16/2025 2.5 <=3.4 ng/mL Final 06/16/2025 2.7 <=3.4 ng/mL Final 06/16/2025 2.5 <=3.4 ng/mL Final 06/15/2025 2.7 <=3.4 ng/mL Final 06/15/2025 2.3 <=3.4 ng/mL Final 06/15/2025 2.6 <=3.4 ng/mL Final 06/15/2025 2.3 <=3.4 ng/mL Final 06/14/2025 2.7 <=3.4 ng/mL Final Coagulation: No results found for: INR, PTT Lipid panel: Lab Results Component Value Date CHOL 295 (H) 06/15/2025 HDL 79 06/15/2025 TRIG 129 06/15/2025 Other: Lab Results Component Value Date HGBA1C 5.8 (H) 06/16/2025 TSH 2.71 06/14/2025 Chest Imaging: CXR: === 06/14/25 === XR ABDOMEN 1 VIEW - Impression - Dilated stool-filled colon most suggestive of constipation or possible partial obstruction. Report Dictated on Electronically Signed By: César Pizarro DR Electronically Signed Date/Time: 06/16/2025 4:56 PM EDT Cardiac Studies: Telemetry findings reviewed: NSR ECG: Encounter Date: 06/14/25 ECG 12 lead Result Value Heart Rate 70 QRSD Interval 101 QT Interval 436 QTC Interval 470 P Babylon 61 QRS Babylon 49 T Wave Babylon 33 OH Interval 167 Impression Unknown rhythm, irregular rate Echo: 06/14/25 TRANSTHORACIC ECHOCARDIOGRAM (TTE) COMPLETE (CONTRAST/BUBBLE/3D PRN) 06/16/2025 8:47 AM (Final) Interpretation Summary Left Ventricle: Left ventricle size is normal. Normal wall thickness. Normal left ventricular systolic function. EF by visual approximation is 50%. EF by 2D Simpsons Biplane is 63%. See diagram for wall motion findings. Right Ventricle: Right ventricle size is normal. Normal systolic function. Aortic Valve: Mildly thickened cusps. Mildly calcified cusps. Cusp sclerosis. Trace regurgitation. No stenosis. Mitral Valve: Mildly thickened leaflets. Calcified leaflets. Annular calcification. Mild (1+) regurgitation. No stenosis noted. Tricuspid Valve: RVSP is 22 mmHg. Left Atrium: Left atrium size is normal. Right Atrium: Right atrium size is normal. Aorta: Normal sized sinuses of Valsalva and ascending aorta. No significant valvular abnormalities. Signed by: Darius Patterson DO on 06/16/2025 8:47 AM Cath Report: No results found for this or any previous visit. Assessment/Plan HF NYHA Class [] I [] II [] III [] IV []Unable to assess [] N/A Anterolateral NSTEMI Severe Multivessel CAD HLD - Patient without further CP - TTE (06/16/25): normal LV function, EF 63% by simpsons biplane - Initial EKG findings: ST depressions in leads V3-V5, repeat EKG demonstrates ST depressions in V2-V5 - Emergent LHC (06/14/25): severe multivessel CAD (LAD 70%, subtotally occluded RCA, high-grade obtuse marginal vessel, EF 50%, anterolateral hypokinesis) - Trop peak 318 - LDL 190 - TSH 2.71 - A1c 5.8, prediabetes Plan: - CABG planned for - Continue ASA 81 mg, heparin gtt - Continue coreg 6.25 mg BID - Discontinue nitroglycerin gtt, start imdur low dose if cp recurs - Start zetia 10 mg BID, has prior attempted statin therapy, claims crippling myalgias, will not prescribe at this time, consider PCSK9 inhibitor as OP - LENI/ARB not indicated as no evidence of LV dysfunction Insomnia - Pt states she takes 2 tramadol 50 mg at home for sleep Plan: - hold home tramadol as this is not the best option for sleep - start mirtazapine 7.5 mg daily, pt declines melatonin Raynaud's - Cont. Nifedipine 30 mg XL daily Osteoporosis - HOLD home alendronate 70 mg daily Anxiety/Depression Fibromyalgia - Cont. Effexor 75 mg daily, amitriptyline 50 mg nightly Chronic Low Back Pain s/p Lumbar Spinal Surgery - Resume home tizanidine 4 mg q8 prn - Hold home tramadol IBS Chronic Constipation - improving - HOLD home lubiprostone - Miralax BID, Senokot-S BID, Milk of Magnesia BID - fleets enema x1, soap suds enema x1, lactulose x1 Hypothyroidism - Cont. Synthroid 75 mcg daily GERD - Cont. PPI daily CKD2 - CTM - Goals of Care: Full Code - DVT Prophylaxis: Heparin gtt - GI Prophylaxis: Protonix daily - Diet: Cardiac - BMI Classification: Body mass index is 23.9 kg/m . - Disposition: Continue to monitor in CCU. [1] amitriptyline, 50 mg, Oral, Nightly aspirin, 81 mg, Oral, Daily carvedilol, 6.25 mg, Oral, BID WC lactulose, 20 g, Oral, TID levothyroxine, 75 mcg, Oral, qAM AC magnesium hydroxide, 30 mL, Oral, BID mupirocin, 1 Application, Nasal, BID pantoprazole, 40 mg, Oral, qAM AC polyethylene glycol (PEG) 3350, 17 g, Oral, BID senna-docusate sodium, 2 tablet, Oral, BID sodium chloride 0.9%, 5-40 mL, IntraVENous, q12h venlafaxine XR, 75 mg, Oral, Daily with breakfast [2] heparin, 5-30 Units/kg/hr, Last Rate: 14 Units/kg/hr (06/17/25 0015) nitroglycerin, 5-200 mcg/min, Last Rate: 5 mcg/min (06/17/25 0305) Cosigned by Sandip Quezada MD at 06/17/2025 11:46 AM EDT Associated attestation - Sandip Quezada MD - 06/17/2025 11:46 AM EDT I, Dr. Quezada saw and evaluated the patient on 06/17/2025. I personally obtained the figueroa and critical portions of the history and physical exam. I reviewed the chart and discussed the patient with the resident. I agree with the resident's medical decision making. 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 She initially thought she was having acid reflux-like symptoms but symptoms worsened with radiation to her arm so she presented at [facility]. She was found to have elevated troponin and underwent coronary angiography that showed multivessel coronary artery disease with subtotally occluded RCA, high-grade lesion obtuse marginal branch and obstructive disease in the LAD. She was subsequently transferred to [facility] for bypass consideration. The first night she was here she did have some mild discomfort. The patient has been maintained on nitroglycerin GGT along with heparin GGT. She was evaluated by the CT surgery team were planning on proceeding with bypass later on this week. Overnight the patient did not have any acute events. This morning she does not have any complaints. She is not endorsing any chest discomfort. She has been weaned off of her nitroglycerin gtt. at this time. Her labs are stable. She underwent an echocardiogram that showed low normal LV function with lateral wall motion abnormality. For her presentation with an NSTEMI, we will continue aspirin 81 mg daily and heparin GGT. The patient has been weaned off of the nitroglycerin drip and we can start her on isosorbide mononitrate if needed for chest pain. Continue carvedilol 6.25 mg twice daily and PPI. The patient does have reported intolerance to multiple statins in the past. Will start her on Zetia 10 mg daily. She would be a good candidate for outpatient PCSK9 inhibitors upon discharge. Portions of the information within this encounter were entered using an electronic dictation system. Best attempts were made to proofread the information prior to note completion. Despite the review of the information, some errors may remain. If there are questions related to the information contained within the note please contact the signing provider directly. Sandip Quezada MD, [facility], [facility] Hydroelectric Production Technician [facility] [address] [address] p [phone] f [phone] [email or web address] Nutrition rescreen completed. Chart reviewed. Patient to be monitored and followed by the diet marine propulsion technician. BEENA Alvarado Images from the original note were not included. [facility] CCU PROGRESS NOTE Patient Name: Richie Armas : 1950 Subjective: Richie Armas is a 75 y.o. female with PMH CKD 2, Raynaud's, anxiety/depression, IBS/constipation, GERD, fibromyalgia, hypothyroidism, chronic low back pain S/P lumbar spinal surgery that presented to [facility] on 06/14/2025 from outside facility ([facility]). 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 Patient transferred to [facility] for CABG eval and loaded with ASA, heparin, started on nitroglycerin gtt. Interval History: Hemodynamically stable. Around 0500, pt started to complain of reflux-like symptoms with radiation to L jaw, restarted on nitroglycerin gtt with titration to cp. Currently on nitroglycerin gtt 85 with resolution of symptoms. Reports 2 very small bowel movements. Provided fleets enema without relief, pt now requesting, soap suds enema. Review of Systems: Review of Systems Constitutional: Negative for chills and fever. Respiratory: Negative for cough and shortness of breath. Cardiovascular: Negative for chest pain and leg swelling. Gastrointestinal: Positive for abdominal distention and constipation. Negative for abdominal pain and nausea. Neurological: Negative for headaches. Inpatient Medications: Scheduled Meds:Scheduled Meds[1] Continuous Infusions:Continuous Meds[2] PRN Meds used in the last 24hr: vistaril 25 mg x1, tylenol 650 mg x1 Objective: Physical Examination: BP 111/66 Pulse 63 Temp 36.9 C (98.4 F) (Temporal) Resp 20 Ht 5' 3 (1.6 m) Wt 133 lb 13.1 oz (60.7 kg) SpO2 95% BMI 23.71 kg/m Intake/Output Summary (Last 24 hours) at 06/16/2025 1114 Last data filed at 06/16/2025 0437 Gross per 24 hour Intake 268.4 ml Output -- Net 268.4 ml Physical Exam Constitutional: General: She is not in acute distress. Cardiovascular: Rate and Rhythm: Normal rate and regular rhythm. Pulmonary: Effort: Pulmonary effort is normal. Breath sounds: Normal breath sounds. Abdominal: Palpations: Abdomen is soft. Tenderness: There is no abdominal tenderness. Musculoskeletal: Right lower leg: No edema. Left lower leg: No edema. Skin: General: Skin is warm and dry. Neurological: General: No focal deficit present. Mental Status: She is alert. Mental status is at baseline. Pertinent Labs: BMP: Lab Results Component Value Date NA 132 (L) 06/16/2025 K 4.0 06/16/2025 CL 100 06/16/2025 CO2 24 06/16/2025 BUN 16 06/16/2025 CREATININE 0.68 06/16/2025 GLUCOSE 108 06/16/2025 CALCIUM 8.6 (L) 06/16/2025 MG 2.7 (H) 06/16/2025 CBC: Lab Results Component Value Date WBC 8.1 06/16/2025 HGB 12.8 06/16/2025 HCT 38.0 06/16/2025 MCV 94.3 06/16/2025 PLT 217 06/16/2025 Cardiac profile: CK Date Value Ref Range Status 06/16/2025 103 30 - 185 U/L Final 06/16/2025 99 30 - 185 U/L Final 06/15/2025 104 30 - 185 U/L Final 06/15/2025 88 30 - 185 U/L Final 06/15/2025 93 30 - 185 U/L Final 06/15/2025 85 30 - 185 U/L Final 06/14/2025 95 30 - 185 U/L Final CKMB Date Value Ref Range Status 06/16/2025 2.7 <=3.4 ng/mL Final 06/16/2025 2.5 <=3.4 ng/mL Final 06/15/2025 2.7 <=3.4 ng/mL Final 06/15/2025 2.3 <=3.4 ng/mL Final 06/15/2025 2.6 <=3.4 ng/mL Final 06/15/2025 2.3 <=3.4 ng/mL Final 06/14/2025 2.7 <=3.4 ng/mL Final Coagulation: No results found for: INR, PTT Lipid panel: Lab Results Component Value Date CHOL 295 (H) 06/15/2025 HDL 79 06/15/2025 TRIG 129 06/15/2025 Other: Lab Results Component Value Date HGBA1C 5.8 (H) 06/16/2025 TSH 2.71 06/14/2025 Chest Imaging: CXR: Cardiac Studies: Telemetry findings reviewed: NSR ECG: Encounter Date: 06/14/25 ECG 12 lead Result Value Heart Rate 61 QRSD Interval 101 QT Interval 467 QTC Interval 473 P Babylon 59 QRS Babylon 68 T Wave Babylon 0 OH Interval 171 Impression Sinus rhythm Low voltage, extremity leads Nonspecific st/t changes Electronically Signed On 06-16-2025 09:24:39 EDT by Selvin Lynch Echo: 06/14/25 TRANSTHORACIC ECHOCARDIOGRAM (TTE) COMPLETE (CONTRAST/BUBBLE/3D PRN) 06/16/2025 8:47 AM (Final) Interpretation Summary Left Ventricle: Left ventricle size is normal. Normal wall thickness. Normal left ventricular systolic function. EF by visual approximation is 50%. EF by 2D Simpsons Biplane is 63%. See diagram for wall motion findings. Right Ventricle: Right ventricle size is normal. Normal systolic function. Aortic Valve: Mildly thickened cusps. Mildly calcified cusps. Cusp sclerosis. Trace regurgitation. No stenosis. Mitral Valve: Mildly thickened leaflets. Calcified leaflets. Annular calcification. Mild (1+) regurgitation. No stenosis noted. Tricuspid Valve: RVSP is 22 mmHg. Left Atrium: Left atrium size is normal. Right Atrium: Right atrium size is normal. Aorta: Normal sized sinuses of Valsalva and ascending aorta. No significant valvular abnormalities. Signed by: Darius Patterson DO on 06/16/2025 8:47 AM Cath Report: No results found for this or any previous visit. Assessment/Plan Anterolateral NSTEMI Severe Multivessel CAD HLD - Patient without further cp on nitroglycerin gtt - TTE (06/16/25): normal LV function, EF 63% by simpsons biplane - Initial EKG findings: ST depressions in leads V3-V5, repeat EKG demonstrates ST depressions in V2-V5 - Emergent LHC (06/14/25): severe multivessel CAD (LAD 70%, subtotally occluded RCA, high-grade obtuse marginal vessel, EF 50%, anterolateral hypokinesis) - Trops down trending - LDL 190 - TSH 2.71 - A1c 5.8, prediabetes Plan: - CTS following, appreciate recs - Continue ASA 81 mg, heparin gtt - Continue coreg to 6.25 mg BID - On nitroglycerin gtt with titration according to chest pain - Has prior attempted statin therapy, claims crippling myalgias, will not prescribe at this time, consider PCSK9 inhibitor as OP - LENI/ARB not indicated as no evidence of LV dysfunction Raynaud's - Cont. Nifedipine 30 mg XL daily Osteoporosis - HOLD home alendronate 70 mg daily Anxiety/Depression Fibromyalgia - Cont. Effexor 75 mg daily, amitriptyline 50 mg nightly Chronic Low Back Pain s/p Lumbar Spinal Surgery - Resume home tizanidine 4 mg q8 prn - Hold home tramadol 50 mg IBS/Constipation - HOLD home lubiprostone - Miralax BID, Senokot-S BID, Milk of Magnesia BID - fleets enema once and soap suds enema once Hypothyroidism - Cont. Synthroid 75 mcg daily GERD - Cont. PPI daily CKD2 - CTM - Goals of Care: Full Code - DVT Prophylaxis: Heparin gtt - GI Prophylaxis: Protonix daily - Diet: Cardiac - BMI Classification: Body mass index is 23.71 kg/m . - Disposition: Continue to monitor in CCU. [1] amitriptyline, 50 mg, Oral, Nightly aspirin, 81 mg, Oral, Daily carvedilol, 6.25 mg, Oral, BID WC levothyroxine, 75 mcg, Oral, qAM AC magnesium hydroxide, 30 mL, Oral, BID mupirocin, 1 Application, Nasal, BID pantoprazole, 40 mg, Oral, qAM AC polyethylene glycol (PEG) 3350, 17 g, Oral, BID senna-docusate sodium, 2 tablet, Oral, BID sodium chloride 0.9%, 5-40 mL, IntraVENous, q12h venlafaxine XR, 75 mg, Oral, Daily with breakfast [2] heparin, 5-30 Units/kg/hr, Last Rate: 14 Units/kg/hr (06/16/25 0715) nitroglycerin, 5-200 mcg/min, Last Rate: 85 mcg/min (06/16/25 1037) Cosigned by Selvin Lynch MD at 06/16/2025 3:01 PM EDT Associated attestation - Selvin Lynch MD - 06/16/2025 3:01 PM EDT I, Dr. Lynch, saw and evaluated the patient. I personally obtained the figueroa and critical portions of the history and physical exam. I reviewed the chart and discussed the patient with the resident. I agree with the resident's medical decision making. Assessment/Plan: Patient without past cardiac history, admitted with NSTEMI to outside hospital. Cath showed complex 3v CAD. Transferred here for evaluation for possible CABG. Placed on nitro and heparin drips for symtpoms. Did have some fluctuating chest pressure overnight, nitro uptitrated with some relief. Sitting comfortably in chair as we talk. Plan for CABG. CT surgery has seen. Working on date. Continue heparin and nitro drips. Images from the original note were not included. [facility] CCU PROGRESS NOTE Patient Name: Richie Armas : 1950 Subjective: Richie Armas is a 75 y.o. female with PMH CKD 2, Raynaud's, anxiety/depression, IBS/constipation, GERD, fibromyalgia, hypothyroidism, chronic low back pain S/P lumbar spinal surgery that presented to [facility] on 06/14/2025 from outside facility ([facility]). 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 Patient transferred to [facility] for CABG eval and loaded with ASA, heparin, started on nitroglycerin gtt. Interval History: No overnight events. Intermittent reflux-like symptoms with ambulation, relieved with rest. On 5 nitroglycerin gtt and heparin gtt. Only 1 small BM within the last week, pt requesting scheduled milk of mag BID, miralax BID, senna 2 tablets daily. Otherwise no new concerns or complaints. Review of Systems: Review of Systems Constitutional: Negative for chills and fever. Respiratory: Negative for cough and shortness of breath. Cardiovascular: Negative for chest pain and leg swelling. Gastrointestinal: Positive for constipation. Negative for abdominal pain and nausea. Neurological: Negative for headaches. Inpatient Medications: Scheduled Meds:Scheduled Meds[1] Continuous Infusions:Continuous Meds[2] PRN Meds used in the last 24hr: IV heparin 1860 units x1 Objective: Physical Examination: BP 105/75 Pulse 78 Temp 36.6 C (97.9 F) (Temporal) Resp 16 Wt 137 lb 5.6 oz (62.3 kg) SpO2 100% Intake/Output Summary (Last 24 hours) at 06/15/2025 1059 Last data filed at 06/14/20252002 Gross per 24 hour Intake 300 ml Output 300 ml Net 0 ml Physical Exam Constitutional: General: She is not in acute distress. Cardiovascular: Rate and Rhythm: Normal rate and regular rhythm. Pulmonary: Effort: Pulmonary effort is normal. Breath sounds: Normal breath sounds. Abdominal: Palpations: Abdomen is soft. Tenderness: There is no abdominal tenderness. Musculoskeletal: Right lower leg: No edema. Left lower leg: No edema. Skin: General: Skin is warm and dry. Neurological: General: No focal deficit present. Mental Status: She is alert. Mental status is at baseline. Pertinent Labs: BMP: Lab Results Component Value Date NA 136 06/15/2025 K 4.1 06/15/2025 CL 103 06/15/2025 CO2 22 (L) 06/15/2025 BUN 18 06/15/2025 CREATININE 0.69 06/15/2025 GLUCOSE 92 06/15/2025 CALCIUM 8.8 06/15/2025 MG 2.2 06/15/2025 CBC: Lab Results Component Value Date WBC 5.7 06/15/2025 HGB 12.5 06/15/2025 HCT 38.8 06/15/2025 MCV 95.8 06/15/2025 PLT 211 06/15/2025 Cardiac profile: CK Date Value Ref Range Status 06/15/2025 93 30 - 185 U/L Final 06/15/2025 85 30 - 185 U/L Final 06/14/2025 95 30 - 185 U/L Final CKMB Date Value Ref Range Status 06/15/2025 2.6 <=3.4 ng/mL Final 06/15/2025 2.3 <=3.4 ng/mL Final 06/14/2025 2.7 <=3.4 ng/mL Final Coagulation: No results found for: INR, PTT Lipid panel: Lab Results Component Value Date CHOL 295 (H) 06/15/2025 HDL 79 06/15/2025 TRIG 129 06/15/2025 Other: Lab Results Component Value Date TSH 2.71 06/14/2025 Chest Imaging: CXR: Cardiac Studies: Telemetry findings reviewed: NSR ECG: Encounter Date: 06/14/25 ECG 12 lead Result Value Heart Rate 71 QRSD Interval 89 QT Interval 404 QTC Interval 440 P Babylon 59 QRS Babylon 100 T Wave Babylon 0 OH Interval 160 Impression Sinus rhythm Probable left atrial enlargement Right axis deviation Low voltage, precordial leads Nonspecific T abnrm, anterolateral leads Echo: No results found for this or any previous visit. Cath Report: No results found for this or any previous visit. Assessment/Plan Anterolateral NSTEMI Severe Multivessel CAD HLD - Patient without chest pain, occasional reflux-like sx with ambulation - Initial EKG findings: ST depressions in leads V3-V5, repeat EKG demonstrates ST depressions in V2-V5 - Emergent LHC (06/14/25): severe multivessel CAD (LAD 70%, subtotally occluded RCA, high-grade obtuse marginal vessel, EF 50%, anterolateral hypokinesis) - Trops down trendin<318<304 - LDL 190 - TSH 2.71 Plan: - CTS consulted - A1c pending - Continue ASA 81 mg, heparin gtt for 48 hours - Increase coreg to 6.25 mg BID with plan to wean nitroglycerin gtt as able (titrate for SBP) - Has prior attempted statin therapy, claims crippling myalgias, will not prescribe at this time, consider PCSK9 inhibitor as OP - Formal TTE pending - Consider starting LENI/ARB if evidence of LV dysfunction Raynaud's - Cont. Nifedipine 30 mg XL daily Osteoporosis - HOLD home alendronate 70 mg daily Anxiety/Depression Fibromyalgia - Cont. Effexor 75 mg daily, amitriptyline 50 mg nightly Chronic Low Back Pain s/p Lumbar Spinal Surgery - Cont. Tizanidine 4 mg nightly - Hold home tramadol 50 mg IBS/Constipation - HOLD home lubiprostone - Miralax, Senokot-S daily, Milk of Magnesia Hypothyroidism - Cont. Synthroid 75 mcg daily GERD - Cont. PPI daily CKD2 - CTM - Goals of Care: Full Code - DVT Prophylaxis: Heparin - GI Prophylaxis: Protonix daily - Diet: Cardiac - BMI Classification: There is no height or weight on file to calculate BMI. - Disposition: Continue to monitor in CCU. [1] amitriptyline, 50 mg, Oral, Nightly aspirin, 81 mg, Oral, Daily carvedilol, 6.25 mg, Oral, BID WC levothyroxine, 75 mcg, Oral, qAM AC magnesium hydroxide, 30 mL, Oral, BID Melatonin, 0.3 mg, SubLINGual, Nightly mupirocin, 1 Application, Nasal, BID pantoprazole, 40 mg, Oral, qAM AC polyethylene glycol (PEG) 3350, 17 g, Oral, BID senna-docusate sodium, 2 tablet, Oral, Daily sodium chloride 0.9%, 5-40 mL, IntraVENous, q12h tiZANidine, 4 mg, Oral, Nightly venlafaxine XR, 75 mg, Oral, Daily with breakfast [2] heparin, 5-30 Units/kg/hr, Last Rate: 13 Units/kg/hr (06/15/25 0700) nitroglycerin, 5-200 mcg/min, Last Rate: 5 mcg/min (06/14/25 1729) Cosigned by Selvin Lynch MD at 06/15/2025 11:34 AM EDT Associated attestation - Selvin Lynch MD - 06/15/2025 11:34 AM EDT I, Dr. Lynch, saw and evaluated the patient on 06/15/2025. I personally obtained the figueroa and critical portions of the history and physical exam. I reviewed the chart and discussed the patient with the resident. I agree with the resident's medical decision making. Assessment/Plan: Patient without past cardiac history, admitted with NSTEMI to outside hospital. Cath showed complex 3v CAD. Transferred here for evaluation for possible CABG. Placed on nitro and heparin drips for symtpoms. Pt feeling well this morning, no further symptoms. CT surgery to see today to evaluate for possible CABG. documented in this encounter [facility] 06-22-2025 Note Cardiothoracic Surge ry/Critical Care Daily Progress Note PATIENT NAME: Richie Armas DATE: 06/22/25 HPI: 75 year old female patient with PMHx that includes CKD2, Raynaud's, anxiety/depression, IBS/constipation, GERD, fibromyalgia, hypothyroidism, chronic low back pain S/P lumbar spinal surgery that presented to [facility] on 06/14/2025 from [facility]. Patient reports worsening chest pain associated with daily walks which started approximately 1 week ago. Initially she attributed this to her prior diagnosis of GERD but when she experienced pain 06/14 that did not resolve with rest she presented to [facility] ED. LHC at [facility] demonstrated severe multivessel disease and she was transferred to [facility] for CABG evaluation. Agreeable to CABG, went to OR on 06/18/25. Surgery/Procedure: 06/18/25: s/p CABGx3 (VICK to LAD, rsvg to OM, rsvg RPDA) left lower leg EVH with Dr. Johnston Interval History: 06/22/25, POD# 4: VSS on RA, no acute issues. Left leg EVH sore and swollen. Pain controlled. Patients wants to go home. Review of Systems Constitutional: Negative for diaphoresis, fatigue and fever. Respiratory: Negative for cough, shortness of breath and wheezing. Cardiovascular: Negative for chest pain, palpitations and leg swelling. Gastrointestinal: Negative for abdominal distention, constipation and diarrhea. Skin: Negative for color change, pallor and rash. Objective: Last BM Date: 06/20/25 Vitals: BP: 107/51, MAP (mmHg): 68, BP Method: Automatic Heart Rate: 66 Resp: 18 Temp: 36.9 ?C (98.5 ?F), Temp Source: Temporal BMI (Calculated): 25.25 Pacer Wires: Temporary Wires: Epicardial Wire Status: Ventricular bipolar wire(s) CXR: BMP: Recent Labs 06/20/25 0010 06/21/25 0253 06/22/25 0047 NA 134* 135* 137 K 3.9 4.0 3.9 CL 101 101 103 CO2 25 22* BUN 13 11 12 CREATININE 0.76 0.75 0.59 CALCIUM 9.0 8.9 8.6* MG 2.0 1.7 1.8 CBC: Recent Labs 06/20/25 0010 06/21/25 0253 06/22/25 0047 WBC 7.6 8.0 7.5 HGB 8.8* 7.7* 8.5* HCT 27.1* 24.5* 25.8* PLT 112* 122* 133* MCV 94.8 95.7 93.5 RDW 15.7* 15.5* 15.1* Physical Exam Cardiovascular: Rate and Rhythm: Normal rate and regular rhythm. Heart sounds: Normal heart sounds. No murmur heard. No friction rub. Pulmonary: Effort: Pulmonary effort is normal. Skin: General: Skin is warm and dry. Capillary Refill: Capillary refill takes less than 2 seconds. Findings: Bruising and ecchymosis present. Comments: Surgical Incisions: well approximate; clean dry with no drainage noted. Surrounding skin no redness, warmth, or signs of infection noted. Neurological: Mental Status: She is alert. Psychiatric: Behavior: Behavior is cooperative. Assessment: MVCAD s/p CABG NSTEMI HLD Raynaud's Osteoporosis Anxiety/depression Chronic back pain IBS/constipation Hypothyroidism Post operative Pulm Management: Normal Post-operative Course Post-operative Atrial Fibrillation: []Yes [x] No Acute blood loss anemia/consumptive coagulopathy Plan: Patient Status: Telemetry Continue ASA metoprolol Change metoprolol tartrate to succinate Add zetia Add plavix for NSTEMI Nifedipine - for Raynaud's symptoms GI prophy: PO protonix DVT prophy: TEDs, SCDs, and Lovenox SubQ PT/OT recs: Home with assist prn, Home with Home health PT/OT Pulmonary hygiene: IS and Acapella Consults: Endocrinology signed off; no follow up Cardiology following Disposition: D/c likely today home with home health Epicardial pacing wire cut without difficulty per protocol. Patient and nurse educated on possible complications. Patient tolerated well. Will continue to monitor. *patient very thin - wire pulled taught as much as possible prior to cutting - educated on possible wire migration. Patient discussed and plan of day developed from multidisciplinary rounds between Cardiothoracic Surgery (Cardiothoracic Surgeon, CRISTIANO) and Critical Care Attending Cardiac Core Medications: ASA, Plavix, Statin, and BB EF: TTE 06/16/25- EF 50% Blood Conservation: transfused Locomotive Switch Operator: [facility] 06-21-2025 Note Cardiothoracic Surge ry/Critical Care Daily Progress Note PATIENT NAME: Richie Armas DATE: 06/21/25 HPI: 75 year old female patient with PMHx that includes CKD2, Raynaud's, anxiety/depression, IBS/constipation, GERD, fibromyalgia, hypothyroidism, chronic low back pain S/P lumbar spinal surgery that presented to [facility] on 06/14/2025 from [facility]. Patient reports worsening chest pain associated with daily walks which started approximately 1 week ago. Initially she attributed this to her prior diagnosis of GERD but when she experienced pain 06/14 that did not resolve with rest she presented to [facility] ED. LHC at [facility] demonstrated severe multivessel disease and she was transferred to [facility] for CABG evaluation. Agreeable to CABG, went to OR on 06/18/25. Surgery/Procedure: 06/18/25: Dr. Johnston- CABG x3, ANTONIO, LEVH Interval History: 06/21/25, POD# 3: Afebrile, BP stable overnight -> on hypertensive side this am, on RA, NSR on tele. No acute events overnight. Patient awake, alert, sitting up in bed, NAD. She reports sleeping well last night. Objective: CT output cc/24hrs: 40 UO cc/24hrs: unmeasured Last BM Date: 06/20/25 Vitals: BP: 143/98, MAP (mmHg): 75, BP Method: Automatic Heart Rate: 70 Resp: 18 Temp: 36.5 ?C (97.7 ?F), Temp Source: Temporal BMI (Calculated): 25.25 Pacer Wires: Temporary Wires: Epicardial Wire Status: Ventricular unipolar wire(s) CXR: BMP: Recent Labs 06/18/25 1515 06/19/25 0032 06/20/25 0010 06/21/25 0253 NA 137 139 134* 135* K 4.4 4.1 3.9 4.0 CL 109* 109* 101 101 CO2 20* 20* 25 25 BUN 12 10 13 11 CREATININE 0.80 0.68 0.76 0.75 CALCIUM 10.6* 8.2* 9.0 8.9 MG 5.2* 2.3 2.0 1.7 PHOS 3.3 -- -- -- CBC: Recent Labs 06/19/25 0032 06/19/25 0033 06/19/25 0817 06/20/25 0010 06/21/25 0253 WBC 7.8 -- -- 7.6 8.0 HGB 8.8* < > 9.9 8.8* 7.7* HCT 26.7* -- -- 27.1* 24.5* PLT 110* -- -- 112* 122* MCV 95.4 -- -- 94.8 95.7 RDW 15.7* -- -- 15.7* 15.5* < > = values in this interval not displayed. INR: Recent Labs 06/18/25 1515 06/19/25 0032 INR 1.4* 1.1 Physical Exam Vitals reviewed. Eyes: Pupils: Pupils are equal, round, and reactive to light. Neck: Comments: Central line RIJ Cardiovascular: Rate and Rhythm: Normal rate and regular rhythm. Pulses: Normal pulses. Heart sounds: Normal heart sounds, S1 normal and S2 normal. Pulmonary: Effort: Pulmonary effort is normal. Breath sounds: Normal breath sounds. Abdominal: General: Bowel sounds are normal. Palpations: Abdomen is soft. Comments: Previous CT site with dressing c/d/i Musculoskeletal: Left lower leg: Edema present. Skin: General: Skin is warm and dry. Capillary Refill: Capillary refill takes less than 2 seconds. Findings: Bruising and ecchymosis present. Comments: Surgical Incisions: well approximate; clean dry with no drainage noted. Surrounding skin no redness, warmth, or signs of infection noted. Neurological: Mental Status: She is alert and oriented to person, place, and time. Assessment: MVCAD s/p CABG NSTEMI HLD Raynaud's Osteoporosis Anxiety/depression Chronic back pain IBS/constipation Hypothyroidism Post operative Pulm Management: Normal Post-operative Course Post-operative Atrial Fibrillation: []Yes [x] No Acute blood loss anemia/consumptive thrombocytopenia Plan: Patient Status: Telemetry Continue ASA, statin, metoprolol Lasix x1 this morning Bowel regimen: suppository, lactulose, Miralax/senna Continue progressive activity Daily labs and CXR GI prophy: PO protonix, Reglan, simethicone DVT prophy:TEDs, SCDs, and Lovenox SubQ Continue dialudid & oxycodone prn for pain management Remove CVC possibly today PT/OT recs: Home with assist prn, Home with Home health PT/OT Pulmonary hygiene: IS and Acapella Consults: Endocrinology: insulin management- signed off Cardiology following Disposition: Home with assist PRN (06/20/25) Central Line: [x]Yes [] No Arterial Line: []Yes [x] No Corado: []Yes [x] No Restraints: []Yes [x] No Patient discussed and plan of day developed from multidisciplinary rounds between Cardiothoracic Surgery (Cardiothoracic Surgeon, CRISTIANO) and Critical Care Attending Cardiac Core Medications: ASA, Statin, and BB EF: TTE 06/16/25- EF 50% Blood Conservation: transfused Locomotive Switch Operator: [facility] I have personally performed a [id number] diagnostic evaluation on this patient on date of service 06/21/25. History, labs, imaging studies, and electronic medical record have been reviewed by me. This note was initially documented by the ACNP-student under my direct supervision. I have reviewed and changed any elements of this note to reflect my decision making in the care plan of this patient. Tele Status A total of 20 minutes were spent between the [id number] encounter, (more content not included)... [facility] 06-21-2025 Note Care Management Prog ress Note Short Medical why still here: Telemetry, monitor for A-Fib, treat constipation and cont PT/OT. Planned Discharge Disposition: Home Health Services. PT/OT recommending home therapy. Discharge plan home with Spouse and [facility] Care. Barriers/Today we still Wait: Administering IV medications, Clinical stability Length of Stay (Days): 7 GMLOS: 1.7 [facility] 06-21-2025 Miscellaneous Notes Formattin g of this note might be different from the original. Care Management Progress Note Short Medical why still here: Telemetry, monitor for A-Fib, treat constipation and cont PT/OT. Planned Discharge Disposition: Home Health Services. PT/OT recommending home therapy. Discharge plan home with Spouse and [facility] Care. Barriers/Today we still Wait: Administering IV medications, Clinical stability Length of Stay (Days): 7 GMLOS: 1.7 Patient Choice Patient Name: RICHIE ARMAS Date of : 1950 All Providers Sent Referral Name: [facility] Phone: [phone] Address: [address] [place] [address] Start PACC Note Home Health Referral Educated patient on Home Care and services available. Patient offered choice of available HHC and agreeable to SN/PT services with [facility] - Home Care. Care Types: None Isolation Precautions: No active isolations Social Determinates of Health: Tobacco Use: Unknown (04/05/2020) Received from [facility] Patient History Smoking Tobacco Use: Never Smokeless Tobacco Use: Unknown Passive Exposure: Not on file Social History Substance and Sexual Activity Alcohol Use Not on file Social History Substance and Sexual Activity Drug Use Not on file Does the patient have any financial resource strain? No Does the patient have any food insecurities? No Does the patient have any housing instabilities? No If any of the above is noted as yes - consider a GRAVITY PROSPECTING OPERATOR evaluation once the patient returns home. START PATIENT REGISTRATION INFORMATION Order Information Order Signing Physician: Shaunna Johnston, DO Service Ordered RN ?: Yes Service Ordered PT ?: Yes Service Ordered OT ?: No Service Ordered ST ?: No Service Ordered GRAVITY PROSPECTING OPERATOR?:No Service Ordered DIMENSION SPECIFICATION INSPECTOR?: No Following Physician: Shaunna Johnston DO Following Physician Overseeing Physician: Shaunna Johnston DO (Required for Residents only) Agreeable to Follow? Yes Date/Time of Call 06/19/25 11:38 AM, Spoke with: cts protocol Care Coordination Same Day SOC?: No Primary Care Physician: PRAVEEN CRUM Primary Care Physician Primary Care Physician Address: [address] [place] [address] [address] / [facility] [id number] Visit Instructions: N/A Service Discharge Location Type: Home with Home Care Service Facility Name: N/A Service Floor Facility: N/A Service Room No: N/A Demographics Patient Last Name: Pawel Patient First Name: Richie Language/Communication Barrier: no Service Address: [address] [place] [address] Service City: [facility] ST: [place] Service ZIP: [phone] Service (home) Other phone numbers: Telephone Information: Emergency Contact: Extended Emergency Contact Information Primary Emergency Contact: Sean Armas Mobile Relation: Spouse Secondary Emergency Contact: All Armas Mobile Relation: Daughter Preferred language: Omani Revenue Research Analyst needed? No Admission Information Admit Date: 06/14/2025 Patient status at discharge: Inpatient Admitting Diagnosis: Non-ST elevation (NSTEMI) myocardial infarction (HCC) [I21.4] NSTEMI (non-ST elevation myocardial infarction) (HCC) [I21.4] Caregiver Information Caregiver First Name: na Caregiver Last Name: na Caregiver Relationship to Patient na Caregiver Phone Number: na Caregiver Notes: N/A [place] [employer] HIGHTECH: [employer] TECH - NEXT DAY REQUEST Requests Next Available SOC/CARLOS END PATIENT REGISTRATION INFORMATION Pt Home Health goal go home COVID Status 1. Do you have any upper respiratory symptoms (cough, SOB, Fever)? No 2. Have you been exposed to anyone with COVID-19 Virus? No Answer only if pending or positive for COVID-19? 1. Agreeable to wear PPE at each visit? No 2. Is the hospital supplying them with PPE upon Discharge? No Start PACC Summary General Report/ Additional Comments Wound care/dressing changes: -Surgical incisions leave open to air, cleanse daily with mild soap & warm water, pat dry, no lotion or powders on incision. -Surgical tape/dsg removal 10 days from surgery date Respiratory Care: -Cough and Deep Breath; Use incentive spirometry 10 times every hour while awake for 2 weeks. Additional Orders: -Sternal precautions (no lifting, pushing, pulling >10 lbs) for 6 weeks-use heart pillow -Vitals per home health protocol-call for fever and chills -Daily weights- call for weight gain: 2-3lbs in one day; 5lbs in 3 days. -Wear TEDs during day and off at night. Lab Work: -If Diabetic: blood glucose testing as directed by PCP/Plodder Operator -For recent heart surgery if patient discharged on Coumadin verify need for INR draw on visit. Activity/Weight Bearing: -Up with assistance: up in chair for all meals, ambulate 3-4 times a day -Stretching exercises per PT discharge instructions Discharge Date: pending Referral Source-PACC: (Hospital/Unit): [facility] / T1-101/T1101 A End PACC Note Care Management Progress Note Short Medical why still here: Telemetry, wean O2, IV Abx, Insulin gtt and PT/OT evaluation. Planned Discharge Disposition: Home Health Services pending progress and therapy recommendations. Barriers/Today we still Wait: Administering IV medications, Clinical stability Length of Stay (Days): 5 GMLOS: 1.7 Cardiothoracic Surgery Operative Report DATE OF PROCEDURE: 06/18/25 PREOPERATIVE DIAGNOSIS: Coronary artery disease, severe multivessel NSTEMI CKD II Raynaud's Anxiety/depression GERD POSTOPERATIVE DIAGNOSIS: Same PROCEDURE: 1. Coronary artery bypass grafting x 3 - Left internal mammary artery to the left anterior descending - Reverse saphenous vein graft to the obtuse marginal artery - Reverse saphenous vein graft to the right posterior descending artery 2. Endoscopic vein harvest, left lower extremity 3. ANTONIO SURGEON: Shaunna Johnston DO MS CORPORATE RECYCLING MANAGER: Josy Chavarria COMPLICATIONS: None intra-op CONDITION: Stable DESCRIPTION OF PROCEDURE: The patient was prepped and draped in the appropriate manner, having undergone general endotracheal anesthetic in addition to Elberta-Olivia catheter placement, arterial line, and corado catheter placement. An antibiotic and a beta karlo were administered pre-operatively and documented. Incision and conduit harvest/preparation: A midline sternotomy incision was utilized in standard fashion. The left internal mammary artery was skeletonized and taken down with clips and bovie cauterization. Papaverine was used. The left lower extremity saphenous vein was harvested via the endoscopic approach. The patient was fully heparinized prior to dividing and prepping the mammary. Retrothymic tunnels were created to facilitate deliver of the IMAs into the pericardium. Cannulation and cardiopulmonary bypass: The pericardium was then opened and the pericardial well was created. Concentric purse strings were placed and the aorta was cannulated with a 20fr EOPA cannula. After adequate de-airing this cannula was connected to the CPB circuit. A purse string was placed around the right atrial appendage and it was cannulated with a 29 multistage venous cannula. Prior to initiating CPB the conduits were prepared. After cannulation, the patient was placed on cardiopulmonary bypass support and drifted to ~34 degrees. Ascending aortic cross-clamp was applied. Antegrade and retrograde cardioplegia (microplegia) was delivered till the heart was arrested in diastole. Cardioplegia was re-administered every 10 to 20 minutes while the ascending aorta was cross clamped. Coronary artery bypass: Targets were identified and were adequate for grafting. Bypasses were performed to the principal obtuse marginal and right posterior descending arteries with 7-0 Prolene distally and 6-0 Prolene proximally to the ascending aorta. The left internal mammary artery was anastomosed to the LAD with 7-0 Prolene. CPB wean and decannulation: The patient was given a dose of warm blood cardioplegia. Valsalva breaths were mechanically administered and the aorta was unclamped. The heart returned to normal sinus rhythm. Pacing wire was placed. The patient was rewarmed and weaned from cardiopulmonary bypass support without difficulty. Protamine was administered and cannulas were removed without difficulty. Two 24Fr efrain drains were placed, one in the left pleural spaceand one in the mediastinum. Closure: Hemostasis was achieved. The sternum and incision were closed with sternal wires, running 0 PDA, 2-0 and 4-0 vicryl stitches. Dressings applied, and the patient was transferred to the cardiovascular intensive care unit in stable condition. Products transfused: None Cardiopulmonary bypass time: 61 minutes Cross clamp time: 46 minutes Intra-op ANTONIO: Low normal EF, 1+ MR Shaunna Johnston DO, MS, FACOS Cardiothoracic Surgery Images from the original note were not included. Cardiothoracic Surgery Note PATIENT NAME: Richie Armas : 1950 (75 y.o.) TODAY'S DATE: 06/17/2025 Objective: BP 141/82 Pulse 70 Temp 36.7 C (98.1 F) (Temporal) Resp 20 Ht 5' 3 (1.6 m) Wt 134 lb 14.7 oz (61.2 kg) SpO2 97% BMI 23.90 kg/m CABG now scheduled for tomorrow, 06/18/25, with Dr. Johnston to follow AM case. Discussed with patient, all questions answered. Consent signed and on chart. Pre-op orders placed. -NPO at midnight. -MRSA nasal swab. -Chlorhexidine baths, mouthwash and bactroban nasal ointment. -Type and screen, prepare 2units PRBC. -Continue heparin gtt and nitroglycerin gtt if needed. Care Management Progress Note Short Medical why still here: Plan for OR-CABG 06/19. Planned Discharge Disposition: Home Health Services, [facility] following for post-op needs. PT/OT evaluation pending post-op. 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 Barriers/Today we still Wait: Clinical stability, Administering IV medications, Procedure (comment) OR-CABG 06/19. Length of Stay (Days): 3 GMLOS: 1.7 Images from the original note were not included. Cardiothoracic Surgery Note PATIENT NAME: Richie Armas : 1950 (75 y.o.) TODAY'S DATE: 06/16/2025 Objective: BP 111/66 Pulse 63 Temp 36.9 C (98.4 F) (Temporal) Resp 20 Ht 5' 3 (1.6 m) Wt 133 lb 13.1 oz (60.7 kg) SpO2 95% BMI 23.71 kg/m Patient tentatively scheduled for CABG with Dr. Johnston for 06/19/25. Will confirm time once OR places on schedule. Discussed with patient. Pre-op testing ordered. -CT chest, bedside spirometry, carotid ultrasounds, vein mapping. documented in this encounter [facility] 06-21-2025 Nurse Note Wound Care consulted for Pressure Injury Prevention. Pt's Wilmer= 19, pt is no longer at risk at this time. Skin Care Precaution order set in place. Dietitian consult in place. PT/OT consults in place. Will continue to follow peripherally. Please vocera or secure chat message with any questions. Tanja Matamoros RN documented in this encounter [facility] 06-20-2025 Note Cardiothoracic Surge ry/CCM Progress Note PATIENT NAME: Richie Armas DATE: 06/20/25 HPI: Richie Armas is a 75 year old female patient with PMHx that includes CKD2, Raynaud's, anxiety/depression, IBS/constipation, GERD, fibromyalgia, hypothyroidism, chronic low back pain S/P lumbar spinal surgery that presented to [facility] on 06/14/2025 from [facility]. Patient reports worsening chest pain associated with daily walks which started approximately 1 week ago. Initially she attributed this to her prior diagnosis of GERD but when she experienced pain 06/14 that did not resolve with rest she presented to [facility] ED. LHC at [facility] demonstrated severe multivessel disease and she was transferred to [facility] for CABG evaluation. Agreeable to CABG, went to OR on 06/18/25. Surgery/Procedure: 06/18/25: Dr. Johnston- CABG x3, ANTONIO, LEVH Interval History: 06/20/25, POD# 02. Afebrile, NSR on tele, BP stable->more on HTN side this AM, on RA. Denies abdominal pain and nausea, gastric bubble slightly improved. Patient states she is passing gas, had small BM overnight. Pain tolerable. Objective: CT output cc/24hrs: 260 UO cc/24hrs: 760 Last BM Date: 06/17/25 Vitals: BP: 156/68, MAP (mmHg): 88, BP Method: Automatic Heart Rate: (!) 148 Resp: 16 Temp: 36.3 ?C (97.4 ?F), Temp Source: Temporal BMI (Calculated): 25.25 BMP: Recent Labs 06/18/25 1515 06/19/25 0032 06/20/25 0010 NA 137 139 134* K 4.4 4.1 3.9 CL 109* 109* 101 CO2 20* 20* 25 BUN 12 10 13 CREATININE 0.80 0.68 0.76 CALCIUM 10.6* 8.2* 9.0 MG 5.2* 2.3 2.0 PHOS 3.3 -- -- CBC: Recent Labs 06/18/25 1515 06/18/25 1933 06/19/25 0032 06/19/25 0033 06/19/25 0453 06/19/25 0817 06/20/25 0010 WBC 6.5 -- 7.8 -- -- -- 7.6 HGB 8.2 7.3* 9.2 8.8* 8.8* < > 9.0 9.9 8.8* HCT 22.5* 26.5* 26.7* -- -- -- 27.1* PLT 99* -- 110* -- -- -- 112* MCV 97.0 -- 95.4 -- -- -- 94.8 RDW 13.6 -- 15.7* -- -- -- 15.7* < > = values in this interval not displayed. INR: Recent Labs 06/18/25 1515 06/19/25 0032 INR 1.4* 1.1 Physical Exam Vitals reviewed. Constitutional: General: She is not in acute distress. Appearance: She is not ill-appearing or diaphoretic. Neck: Comments: Central line. Cardiovascular: Rate and Rhythm: Normal rate and regular rhythm. Pulses: Normal pulses. Heart sounds: No murmur heard. Pulmonary: Breath sounds: No wheezing or rales. Abdominal: Palpations: Abdomen is soft. Comments: Chest tubes. Genitourinary: Comments: Corado. Skin: General: Skin is warm and dry. Capillary Refill: Capillary refill takes less than 2 seconds. Findings: Bruising present. Comments: Surgical incisions well approximated, no redness, warmth or drainage noted. Neurological: General: No focal deficit present. Mental Status: She is alert. Assessment: MVCAD s/p CABG NSTEMI HLD Raynaud's Osteoporosis Anxiety/depression Chronic back pain IBS/constipation Hypothyroidism Post operative Pulm Management: Normal Post-operative Course Post-operative Atrial Fibrillation: []Yes [x] No Acute blood loss anemia/consumptive thrombocytopenia Plan: Patient status: ICU Tachy, possible afib this AM, self converted. -Monitor, may need amio bolus and gtt. Continue aspirin and statin. Start BB today, 25mg BID. Bowel regimen +suppository, simethicone and reglan. Add lactulose TID today. -If no BM today, consider methylnaltrexone tomorrow. -Patient had constipation pre-op. Toradol 15mg q6h today. -Limit narcotics if able. Out of bed for meals. Remove corado. Monitor chest tube output, can consider removing if minimal output through the AM. Progressive mobility. Daily labs and CXR. GI prophy: IV protonix DVT prophy:TEDs, SCDs, and Lovenox SubQ Pulmonary hygiene: IS and Acapella Consults: Endocrinology. PT/OT: Home with assist PRN (06/20/25) TCC/Discharge Planning: TBD. Central Line: [x]Yes [] No Arterial Line: []Yes [x] No Corado: [x]Yes [] No Restraints: []Yes [x] No Patient discussed and plan of day developed from multidisciplinary rounds between Cardiothoracic Surgery (Cardiothoracic Surgeon, CRISTIANO) and Critical Care Attending Critical Care time spent 20 minutes. The time involved in the performance of this care was exclusive of separately billable procedures, teaching time and treating other patients. The time was spent personally by myself for the following activities: examination of the patient, ordering and/or performing treatment, reviewing the laboratory and radiographic studies, and if applicable, ventilator management and blood gas interpretation. Cardiac Core Medications: ASA, Statin, and BB EF: 50% (06/16/25) Blood Conservation: None noted in post-operative period Locomotive Switch Operator: [facility] 06-19-2025 Note OCCUPATIONAL THERAPY [facility] Initial Evaluation Name/MRN: Richie Armas ([id number]) Evaluation Date: 06/19/2025 Date of : 1950 Admission Date: 06/14/2025 4:44 PM Age: 75 y.o. Room/Bed: T1-101/T1-101 A Discharge Recommendation: Home with assist PRN, Home with Home health OT Equipment Needed: Yes Mobility Devices: ADL Assistive Devices ADL Assistive Devices: Shower Chair with back Assessment IMPRESSION: Pt presents to [facility] with NSTEMI s/p CABG x3 on 06/18. Pt is currently functioning at CGA for functional transfers, CGA for functional mobility with no device, CGA-SBA for ADLs. Pt is limited by sternal precautions, post op pain, decreased strength, balance, endurance, impacting ADL performance and will benefit from acute OT services to address noted deficits in preparation for home going. Pt is recommended for home with [facility] OT with PRN assist, children are flying in to assist at home for discharge. Admitting Diagnosis: NSTEMI Performance Deficits /Impairments: Increased Pain, Decreased Functional Mobility, Decreased ADL status, Decreased Strength, Decreased Safety Awareness, Decreased Endurance, Decreased Balance, Decreased ROM, and Decreased High Level IADLs Prognosis: Good Decision Making: Medium Complexity Subjective Pt presents in chair, pleasant and agreeable to OT, okay to see for therapy per consult with RN. Pain: RN managing pain. Past Medical History: Medical History[1] Past Surgical History: Surgical History[2] Admission Diagnosis: Patient Active Problem List Diagnosis Date Noted NSTEMI (non-ST elevation myocardial infarction) ([facility]) 06/14/2025 Medical Precautions: No active isolations Proper PPE donned/doffed in accordance with facility standards. Fall Risk: Sal Fall Risk Score: 35 (Medium Risk) Precautions/Restrictions: Sternal Precautions: No lifting greater than 10 lbs. Ok for modified UE precautions using Keep Your Move in the Tube technique teletali, chest tube Family/Caregiver Present: none Overall Cognitive Status: WFL Overall Orientation Status: Oriented x4 Social/Functional History Patient admitted from home. Lives With: Spouse who has dementia. Stepchildren are currently caring for spouse, Dtr and son are flying in assist pt and spouse upon return to home. 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 Prior Level of Function Prior Level of ADL Function: Independent Prior Level of Mobility: Independent; Device: None Prior Level of Transfers: Independent Objective ADLs LE Dressing: SBA, figure four sit to doff socks, CGA in standing for stability Toileting: pt with corado at this time Upper Extremity Assessment AROM: Unable to assess d/t sternal precautions, appears WFL distally PROM: Not assessed this session Strength: Not assessed this session. Bed Mobility Pt up in chair upon arrival Transfers/Mobility Sit to stand: Contact Guard Stand to sit: Contact Guard Sitting balance: SBA Standing balance: Contact Guard Functional mobility: Contact Guard Within room and in hallway with no device, mild instability but no overt LOB, good carryover of use of pillow for maintaining precautions Device(s) used: None Coordination: Normal Coordination Tone: Normal Tone Sensation: Not Assessed Vision: wears glasses, no acute changes Tremors: No Hearing: normal AM-PAC AM-PAC Inpatient Daily Activity Raw Score: 20 ADL Inpatient [facility] G-Code Modifier: CJ Plan Pt would benefit from skilled acute OT services to address Strengthening, ROM, Gait Training, Balance Training, Self-Care/ADL Training, Functional Mobility Training, Endurance Training, Safety Education and Training, Pain Management, Home Management Training, and Patient/Caregiver Training. Frequency: 5x/weekfor 4 weeks Barriers: Pain, Impaired balance, Lower extremity weakness, Limited safety awareness, Decreased endurance, and New weightbearing/ROM restrictions Safety/Education Safety Safety Devices in place: All fall risk precautions in place, call light within reach, left in chair, nurse notified, and no alarms engaged upon entry Restraints: No Education Education Given To: patient Education Provided: OT Role, Plan of Care, ADL Adaptive Strategies, Transfer Training, Discharge Recommendations, and Benefits of Increasing Activity Education Method: Verbal Barriers to Learning: None Education Outcome: Verbalized Understanding Goals Patient Stated Goal: go home Encounter Problems Encounter Problems (Active) Balance Patient will maintain dynamic standing balance for 5 minutes with supervision in order to (more content not included)... [facility] 06-19-2025 Note PHYSICAL THERAPY [facility] Initial Evaluation Name/MRN: Richie Armas ([id number]) Evaluation Date: 06/19/2025 Date of : 1950 Admission Date: 06/14/2025 4:44 PM Age: 75 y.o. Room/Bed: T1-101/T1-101 A Discharge Recommendation: Home with Home health PT, Home with assist PRN Other: TBD- does not own DME Assessment IMPRESSION: Pt is s/p CABG x3 06/18/25. She is currently CGA-Min assist for bed mobility, transfers and ambulation with the FWW in the halls. Pain is moderate (5/10). Pt is moving well and eager to return to home soon. She is normally active and walks daily at home. Anticipate she will continue to progress throughout LOS to return to home with assist from family as needed. Admitting Diagnosis: NSTEMI. S/p CABG x 3 on 06/18/25 Prognosis: good Performance Deficits /Impairments: Decreased Functional Mobility, Decreased ADL status, Decreased Endurance, Decreased Balance, and Decreased High Level IADLs Decision Making: Medium Complexity Subjective Pt in the bed and agreeable to PT. Reported she is feeling well for only having her surgery 24 hours ago. Pain: RN managing pain. [place] Pain Ratin = Hurts even more Pain Location: Sternum Past Medical History: Medical History[1] Past Surgical History: Surgical History[2] Admission Diagnosis: Patient Active Problem List Diagnosis Date Noted NSTEMI (non-ST elevation myocardial infarction) ([facility]) 06/14/2025 Medical Precautions: No active isolations Proper PPE donned/doffed in accordance with facility standards. Fall Risk: Sal Fall Risk Score: 35 (Medium Risk) Precautions/Restrictions: Sternal Precautions: No lifting greater than 10 lbs. Ok for modified UE precautions using Keep Your Move in the Tube technique Lines/Drains/Airways: x1 chest tube, corado, tele Family/Caregiver Present: none Overall Cognitive Status: WNL Overall Orientation Status: Oriented x4 Vision: Not Assessed Hearing: normal Social/Functional History Patient admitted from home. Lives With: Spouse who has dementia. Dtr and son are coming in to assist the while she is away and will be able to assist her upon return to home. 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 Prior Level of Function Prior Level of ADL Function: Independent Prior Level of Mobility: Independent; Device: None Prior Level of Transfers: Independent Objective Lower Extremity Assessment AROM: WNL PROM: Not assessed this session Strength: WFL 5/5 knee extension and ankle DF Sensation: Not assessed this session Balance: Balance During Session: Posture: good Sitting - Static: Independent Sitting - Dynamic: Independent Standing - Static: SBA Standing - Dynamic: Contact Guard Bed Mobility: Supine to sit: Min Assist Rolling to left: Min Assist Scooting: Min Assist Good log roll to exit the bed. Good awareness of sternal precautions Transfers Sit to stand: Contact Guard Stand to sit: Contact Guard Ambulation Ambulation 1 Assistive device(s) used: Front wheeled walker Assist level: Contact Guard Distance (ft): 90 ft x 2 Quality of gait: No LOB, B foot clearance, equal step length Exercises Ankle Pumps: x5 bilat LE's Upper Extremity: P&C's 1-4 x 10 each Comments: Cues for pursed lip breathing. IS x 5: 1000mL Outcome Measures AM-PAC How much HELP from another person do you currently need Turning from your back to your side while in a flat bed without using bedrails?: A Little Moving from lying on your back to sitting on the side of a flat bed without using bedrails?: A Little Moving to and from a bed to a chair (including a wheelchair)?: A Little Standing up from a chair using your arms (wheelchair or bedside chair)?: A Little Walking in a hospital room?: A Little Stair climbing assessed?: No AM-PAC Inpatient Mobility Raw Score (No Stairs) : 15 [facility] Score: Walked 25 ft or more (i.e. walked outside of room) Plan Pt would benefit from skilled acute PT services to address Strengthening, ROM, Gait Training, Balance Training, Self-Care/ADL Training, Functional Mobility Training, Endurance Training, Stair Training, and Positioning. Frequency: 5x/weekfor 2 weeks Barriers: Pain, Impaired balance, Decreased endurance, New weightbearing/ROM restrictions, and Limited family support Safety/Education Safety Safety Devices in place: call light within reach, left in chair, patient at risk for falls, and nurse notified Restraints: No Education Education Given To: patient Education Provided: PT Role, PT Goals, Gait Training, Plan of Care, Home Exercise Program, Precautions, Transfer Training, Discharge [place] (more content not included)... [facility] 06-19-2025 Note Start PACC Note Home Health Referral Educated patient on Home Care and services available. Patient offered choice of available HHC and agreeable to SN/PT services with [facility]. Care Types: None Isolation Precautions: No active isolations Social Determinates of Health: Tobacco Use: Unknown (04/05/2020) Received from [facility] Patient History Smoking Tobacco Use: Never Smokeless Tobacco Use: Unknown Passive Exposure: Not on file Social History Substance and Sexual Activity Alcohol Use Not on file Social History Substance and Sexual Activity Drug Use Not on file Does the patient have any financial resource strain? No Does the patient have any food insecurities? No Does the patient have any housing instabilities? No If any of the above is noted as yes - consider a GRAVITY PROSPECTING OPERATOR evaluation once the patient returns home. START PATIENT REGISTRATION INFORMATION Order Information Order Signing Physician: Shaunna Johnston DO Service Ordered RN ?: Yes Service Ordered PT ?: Yes Service Ordered OT ?: No Service Ordered ST ?: No Service Ordered GRAVITY PROSPECTING OPERATOR?:No Service Ordered DIMENSION SPECIFICATION INSPECTOR?: No Following Physician: Shaunna Johnston DO Following Physician Overseeing Physician: Shaunna Johnston DO (Required for Residents only) Agreeable to Follow? Yes Date/Time of Call 06/19/25 11:38 AM, Spoke with: cts protocol Care Coordination Same Day SOC?: No Primary Care Physician: PRAVEEN CRUM Primary Care Physician Primary Care Physician Address: [address] [place] [id number] Visit Instructions: N/A Service Discharge Location Type: Home with Home Care Service Facility Name: N/A Service Floor Facility: N/A Service Room No: N/A Demographics Patient Last Name: Pawel Patient First Name: Richie Language/Communication Barrier: no Service Address: [address] [place] [address] Service City: [place] Service ST: [place] Service ZIP: [phone] Service (home) Other phone numbers: Telephone Information: Emergency Contact: Extended Emergency Contact Information Primary Emergency Contact: Sean Armas Mobile Relation: Spouse Secondary Emergency Contact: All Armas Mobile Relation: Daughter Preferred language: Omani Revenue Research Analyst needed? No Admission Information Admit Date: 06/14/2025 Patient status at discharge: Inpatient Admitting Diagnosis: Non-ST elevation (NSTEMI) myocardial infarction (HCC) [I21.4] NSTEMI (non-ST elevation myocardial infarction) (HCC) [I21.4] Caregiver Information Caregiver First Name: na Caregiver Last Name: navin Caregiver Relationship to Patient na Caregiver Phone Number: na Caregiver Notes: N/A DealerTrack-Tech List HIGHTECH: HI TECH - NEXT DAY REQUEST Requests Next Available SOC/CARLOS END PATIENT REGISTRATION INFORMATION Pt Home Health goal go home COVID Status 1. Do you have any upper respiratory symptoms (cough, SOB, Fever)? No 2. Have you been exposed to anyone with COVID-19 Virus? No Answer only if pending or positive for COVID-19? 1. Agreeable to wear PPE at each visit? No 2. Is the hospital supplying them with PPE upon Discharge? No Start PACC Summary General Report/ Additional Comments Wound care/dressing changes: -Surgical incisions leave open to air, cleanse daily with mild soap & warm water, pat dry, no lotion or powders on incision. -Surgical tape/dsg removal 10 days from surgery date Respiratory Care: -Cough and Deep Breath; Use incentive spirometry 10 times every hour while awake for 2 weeks. Additional Orders: -Sternal precautions (no lifting, pushing, pulling >10 lbs) for 6 weeks-use heart pillow -Vitals per home health protocol-call for fever and chills -Daily weights- call for weight gain: 2-3lbs in one day; 5lbs in 3 days. -Wear TEDs during day and off at night. Lab Work: -If Diabetic: blood glucose testing as directed by PCP/Plodder Operator -For recent heart surgery if patient discharged on Coumadin verify need for INR draw on visit. Activity/Weight Bearing: -Up with assistance: up in chair for all meals, ambulate 3-4 times a day -Stretching exercises per PT discharge instructions Discharge Date: pending Referral Source-PACC: (Hospital/Unit): [facility] / / A End PACC Note [facility] 06-19-2025 Note Received referral an d reviewed chart. Phase II Cardiopulmonary Rehab Referral discussed with Richie Armas. Patient prefers cardiopulmonary rehab at [facility]. She is familiar with that location and program and stated she didn't need the contact info. [facility] 06-19-2025 Consult note Associated Order (s): IP CONSULT TO CARDIAC REHAB Received referral and reviewed chart. Phase II Cardiopulmonary Rehab Referral discussed with Richie Armas. Patient prefers cardiopulmonary rehab at [facility]. She is familiar with that location and program and stated she didn't need the contact info. Associated Order(s): IP CONSULT TO DIETITIAN Nutrition Assessment Type and Reason for Visit: Initial, Consult (post-op diet education) Nutrition Recommendations/Plan: Recommend goal of Regular/Low Fat/Low Chol/High Fiber/SYMONE diet. Monitor BG levels and need for CHO restrictions. Favor most liberal diet to promote po intake. Per MNT: Glucerna shake once daily to supplement intake (8oz, 220kcal, 10gm protein). Recommend record po intake in I/O flowsheet to monitor. Provided [facility] Diet for Heart Health handout. Unable to review with pt at this time, but will re-attempt upon follow-up as able. RD will monitor & follow weekly. Education: Educated on Heart Healthy Nutrition Learners: Patient Readiness: Pt sleepy this morning. Method: Handout Response: Needs Reinforcement Contact name and number provided. Malnutrition Assessment: Malnutrition Status: At risk for malnutrition (Comment) (monitor po intake & weights) Nutrition Assessment: 75yo female POD #1 CABG x 3. Extubated last night. PMH CKD 2, Raynaud's, anxiety/depression, IBS/constipation, GERD, fibromyalgia, hypothyroidism, chronic low back pain S/P lumbar spinal surgery. Labs: Glucose elevated 116-127, HbA1c 5.8%, Calcium low 8.2, Chol elevated 295. Medications reviewed. NPO diet --> Full Liquid. Pt up in chair, very sleepy. Estimated Daily Nutrient Needs: Energy Requirements Based On: Kcal/kg Weight Used for Energy Requirements: Current Weight for Energy Calculation (kg): 63.7 kg Total Energy Requirements (kcals/day): 22-25 kcal/kg = 3555-7172 kcal Weight Used for Protein Requirements: Current Weight in Kg Used for Protein Requirements: 63.7 kg Estimated Total Protein (g/day): 1-1.2 gm/kg = 64-76 gm Estimated Daily Total Fluid (ml/day): per MD recommendations Nutrition Related Findings: +I/O, no edema, Wilmer 17, hypoactive BS, chronic constipation, BM 06/17 Wound Type: Surgical Incision Current Nutrition Therapies: Adult diet Full liquid Current Oral Intake Average Meal Intake: (NPO --> Full Liquids) Average Supplements Intake: NPO Anthropometric Measures: Height: 160 cm (5' 3) Current Body Weight: 63.7 kg (140 lb 6.9 oz) Weight Source: Not Specified Powersite Body Weight (lbs) (Calculated): 115 lbs Powersite Body Weight (Kg) (Calculated): 52 kg % Powersite Body Weight (Calculated): 122.1 % BMI (kg/m2) (Calculated): 24.9 BMI Categories: Normal Weight (BMI 18.5-24.9) Nutrition Diagnosis: Inadequate oral intake related to acute injury/trauma as evidenced by NPO or clear liquid status due to medical condition Nutrition Interventions: Nutrition Education/Counseling: Survival skills/brief education completed Coordination of Nutrition Care: Continue to monitor while inpatient Goals: Goals: other (specify) Specify Other Goals: diet to advance to solids Nutrition Monitoring and Evaluation: Behavioral-Environmental Outcomes: Knowledge or Skill Food/Nutrient Intake Outcomes: Diet Advancement/Tolerance, Food and Nutrient Intake, Supplement Intake Physical Signs/Symptoms Outcomes: Biochemical Data, Chewing or Swallowing, GI Status, Fluid Status or Edema, Hemodynamic Status, Meal Time Behavior, Nutrition Focused Physical Findings, Skin, Weight Discharge Planning: Too soon to determine Jennifer Al RD Contact: Gnip chat or *[phone] Associated Order(s): IP CONSULT TO ENDOCRINOLOGY Department of Internal Medicine Division of Endocrinology, Diabetes, & Metabolism Endocrinology Note Patient Name: Richie Armas : 1950 AGE: 75 y.o. Room/Bed: T1-101/T1-101 A Admission Date: 06/14/2025 Visit Date: 06/19/2025 Reason for Endocrine Consult: post heart Provider/Team Requesting Consult: cts PCP: PRAVEEN CRUM Outpt Plodder Operator: No ASSESSMENT: Stress hyperglycemia Steroid induced hyperglycemia Prediabetes Hypothyroidism CABGx3 HLD CKD PLAN: Will plan to stop insulin drip Start Humalog low sliding scale only Resume patient home levothyroxine dose ICU goal <180 GMF goal <150 POCT BG ACHS Hypoglycemia management per protocol Carb controlled diet ANTICIPATED ENDOCRINE HOME GOING RECOMMENDATIONS: Optimized for Discharge from Endocrine standpoint: No Home Going Endocrine Rx Recommendations-- None Resume home levothyroxine dose Outpt Follow Up-- PCP SUBJECTIVE/HPI: CHIEF COMPLAINT: No chief complaint on file. S/p cabgx3 History of prediabetes Reports history of hypothyroidism on levothyroxine 50 mcg po daily per patient, managed by PCP, tsh 2.71 BGL below Stable on insulin drip 0.5/hr-will plan to transition off She is awake alert extubated up in chair currently Vitals are stable on O2 nasal cannula Chest tubes are in place Discussed prediabetes Patient not on any diabetes medications Did confirm her hypothyroidism history on levothyroxine at home follows PCP for this last labs were normal So far is only had water and richy jason will be on a full liquid diet today No current nausea vomiting noted Spoke with nursing Type of DM: Prediabetes Onset of DM: N/A Home DM Medication Regimen: N/A DM control (last A1c/glucose data): Lab Results Component Value Date HGBA1C 5.8 (H) 06/16/2025 Glucose Date/Time Value Ref Range Status 06/19/2025 04:54 AM 127 (H) 70 - 100 mg/dL Final 06/19/2025 03:04 AM 127 (H) 70 - 100 mg/dL Final 06/19/2025 01:11 AM 121 (H) 70 - 100 mg/dL Final 06/19/2025 12:18 AM 117 (H) 70 - 100 mg/dL Final 06/18/2025 11:07 PM 115 (H) 70 - 100 mg/dL Final 06/18/2025 10:07 PM 116 (H) 70 - 100 mg/dL Final Review of Systems All other systems reviewed and are negative. ROS negative except for those mentioned in HPI. OBJECTIVE: Vitals: 06/19/25 0630 06/19/25 0645 06/19/25 0800 06/19/25 0816 BP: Pulse: 71 71 71 Resp: Temp: TempSrc: SpO2: 99% 99% 98% Weight: Height: 5' 3 (1.6 m) Physical Exam Vitals and nursing note reviewed. Constitutional: General: She is not in acute distress. Appearance: She is ill-appearing. She is not toxic-appearing. Interventions: Nasal cannula in place. HENT: Head: Normocephalic. Mouth/Throat: Mouth: Mucous membranes are moist. Cardiovascular: Rate and Rhythm: Normal rate. Pulmonary: Effort: Pulmonary effort is normal. Abdominal: Tenderness: There is no guarding. Musculoskeletal: Cervical back: Normal range of motion. Skin: General: Skin is warm and dry. Coloration: Skin is pale. Comments: Intact incision Neurological: Mental Status: She is alert and oriented to person, place, and time. Psychiatric: Mood and Affect: Mood normal. 24 hour intake/output: Intake/Output Summary (Last 24 hours) at 06/19/2025 0854 Last data filed at 06/19/2025 0712 Gross per 24 hour Intake 3532.53 ml Output 3359 ml Net 173.53 ml Diet: NPO diet Medications (as per EMR): HomeMeds: Current Outpatient Medications Medication Instructions lubiprostone (AMITIZA) 24 mcg, 2 times daily with meals Scheduled Meds:Scheduled Meds[1] Continuous Infusions:Continuous Meds[2] PRN Meds:PRN Meds[3] Diagnostic Workup: I reviewed pertinent Laboratory results, Radiographic results, and Other Clinical Notes at the time of today's encounter. Labs: No components found for: LABA1C No components found for: EAG Lab Results Component Value Date NA 139 06/19/2025 K 4.1 06/19/2025 CL 109 (H) 06/19/2025 CO2 20 (L) 06/19/2025 BUN 10 06/19/2025 CREATININE 0.68 06/19/2025 GLUCOSE 116 (H) 06/19/2025 CALCIUM 8.2 (L) 06/19/2025 Lab Results Component Value Date CHOL 295 (H) 06/15/2025 Lab Results Component Value Date TRIG 129 06/15/2025 Lab Results Component Value Date HDL 79 06/15/2025 Lab Results Component Value Date LDLCALC 190 (H) 06/15/2025 No results found for: VLDL Lab Results Component Value Date CHOLHDLRATIO 4 06/15/2025 No results found for: [id number] Lab Results Component Value Date TSH 2.71 06/14/2025 Radiology reportsas per the Radiologist Radiology: ECG 12 lead Result Date: 06/16/2025 Sinus rhythm Probable left atrial enlargement Right axis deviation Low voltage, precordial leads Nonspecific T abnrm, anterolateral leads Electronically Signed On 06-16-2025 09:44:30 EDT by Selvin Lynch Transthoracic echocardiogram (TTE) complete with contrast, bubble, strain, and 3D PRN Result Date: 06/16/2025 Left Ventricle: Left ventricle size is normal. Normal wall thickness. Normal left ventricular systolic function. EF by visual approximation is 50%. EF by 2D Simpsons Biplane is 63%. See diagram for wall motion findings. Right Ventricle: Right ventricle size is normal. Normal systolic function. Aortic Valve: Mildly thickened cusps. Mildly calcified cusps. Cusp sclerosis. Trace regurgitation. No stenosis. Mitral Valve: Mildly thickened leaflets. Calcified leaflets. Annular calcification. Mild (1+) regurgitation. No stenosis noted. Tricuspid Valve: RVSP is 22 mmHg. Left Atrium: Left atrium size is normal. Right Atrium: Right atrium size is normal. Aorta: Normal sized sinuses of Valsalva and ascending aorta. No significant valvular abnormalities. ECG 12 lead Sinus rhythm Ventricular premature complex Minimal ST depression, anterolateral leads Electronically Signed On 06-14-2025 17:05:24 EDT by Thierno Germain History/Other: Past Medical History: Medical History[4] Past Surgical History: Surgical History[5] Allergy(ies): Allergies[6] Family History: Family History[7] Social History: Social History[8] Portions of the information within this encounter were entered using an electronic dictation system. Best attempts were made to edit/proofread the information prior to note completion. Despite the review of information, some errors may remain. If there are questions related to the information contained within the note please contact the signing physician directly. I spent 70 minutes with the pt which involved coordination of care, medical evaluation, review of records, and/or counseling of the pt regarding his/her condition/disease state/prognosis on the date of this note. [1] acetaminophen, 1,000 mg, Oral, q8h ceFAZolin, 2,000 mg, IntraVENous, q8h chlorhexidine, , Topical, Daily chlorhexidine, 15 mL, Mouth/Throat, BID ketorolac, 15 mg, IntraVENous, q6h Lidocaine, 1 patch, Topical, Daily mupirocin, , Nasal, BID pantoprazole, 40 mg, IntraVENous, Daily polyethylene glycol (PEG) 3350, 17 g, Oral, Daily senna-docusate sodium, 2 tablet, Oral, Nightly sodium chloride 0.9%, 5-40 mL, IntraCATHeter, q8h [2] insulin regular, 0.5-50 Units/hr, Last Rate: 0.5 Units/hr (06/19/25723) lactated ringers, 250 mL, Last Rate: Stopped (06/18/251912) norepinephrine, 0.01-0.2 mcg/kg/min, Last Rate: Stopped (06/19/25823) sodium chloride, 20 mL/hr, Last Rate: 20 mL/hr (06/18/25 160) [3] PRN medications: albumin human, calcium gluconate, dextrose, dextrose, glucagon (rDNA), glucose, HYDROmorphone OR HYDROmorphone, ipratropium-albuterol, lactated ringers, magnesium hydroxide, magnesium sulfate OR magnesium sulfate, naloxone, norepinephrine, ondansetron ODT OR ondansetron, oxyCODONE OR oxyCODONE, potassium chloride OR potassium chloride OR potassium chloride, potassium chloride CR, sodium chloride, sodium chloride 0.9% [4] No past medical history on file. [5] No past surgical history on file. [6] Allergies Allergen Reactions Flexeril [Cyclobenzaprine] Itching [7] No family history on file. [8] Social History Tobacco Use Smoking status: Unknown Cosigned by Koki Savage MD at 06/19/2025 10:38 PM EDT Images from the original note were not included. [facility]: Critical Care Consultation Note Date: 06/18/25 PATIENT NAME: Richie Armas : 1950 (75 y.o.) Reason for Consult: Critical Care & Vent Management HPI: Richie Armas is a 75 year old female patient with PMHx that includes CKD2, Raynaud's, anxiety/depression, IBS/constipation, GERD, fibromyalgia, hypothyroidism, chronic low back pain S/P lumbar spinal surgery that presented to [facility] on 06/14/2025 from [facility]. Patient reports worsening chest pain associated with daily walks which started approximately 1 week ago. Initially she attributed this to her prior diagnosis of GERD but when she experienced pain 06/14 that did not resolve with rest she presented to [facility]. LHC at [facility] demonstrated severe multivessel disease and she was transferred to [facility] for CABG evaluation. Agreeable to CABG, went to OR on 06/18/25. Surgery: 06/18/25: Dr. Johnston- CABG x3, ANTONIO, Interval History: 06/18/25: POD #0: Patient arrived to the unit, intubated and sedated. Surgical hand off completed below. Surgery Hand Off: Arrival Time in CTVICU: 1603 Complications/Pertinent Events: Last Paralytic: 1330 Medications given in route: Gtts OR report Epinephrine: 0.02mcg/kg/min Propofol: Insulin: off Amicar: 29 Current gtts upon arrival Epinephrine: 0.04mcg/kg/min Propofol: 25mcg/kg/min Insulin: Amicar: 29 Devices: Epicardial wires: yes [x] no [] IABP: yes [] no [x] LVAD: yes [] no [x] Speed: Equipment: Back up controller yes [] no [x] Blood Transfusions Intra Op: yes [] no [x] CellSaver: Off Vital Signs including Cardiac Numbers (if indicated) at Conclusion of Hand-off OR CTVICU CO 3 3.44 CI 1.9 2.11 CVP 13 13 SVR 1500 1092 PAP 20/07 Additional Interventions/Misc during Handoff Review of Systems Unable to perform ROS: Intubated Allergies: Flexeril [cyclobenzaprine] Past Medical History: has no past medical history on file. Past Surgical History: has no past surgical history on file. Social History: Family History: family history is not on file. Medications: Prior to Admission medications Medication Sig Start Date End Date Taking? Authorizing Provider lubiprostone (Amitiza) 24 MCG capsule Take 24 mcg by mouth 2 times daily (with meals). 06/13/25 Yes Historical Provider, Objective: BP (!) 105/39 (BP Location: Left arm, Patient Position: Lying) Pulse 74 Temp (!) 35.7 C (96.3 F) (Core) Resp 12 Ht 5' 3 (1.6 m) Wt 133 lb (60.3 kg) SpO2 100% BMI 23.56 kg/m Intake/Output Summary (Last 24 hours) at 06/18/2025 1612 Last data filed at 06/18/2025 1606 Gross per 24 hour Intake 1997.2 ml Output 2505 ml Net -507.8 ml Physical Exam Vitals reviewed. Constitutional: Interventions: She is sedated and intubated. HENT: Mouth/Throat: Comments: ETT/OG. Neck: Comments: Central line and [place]. Cardiovascular: Rate and Rhythm: Regular rhythm. Bradycardia present. Pulses: Normal pulses. Pulmonary: Effort: She is intubated. Breath sounds: No wheezing, rhonchi or rales. Comments: Ventilator assisted. Abdominal: Palpations: Abdomen is soft. Comments: Chest tubes. Genitourinary: Comments: [place]. Musculoskeletal: Comments: LENI wrap on LEVH. Skin: General: Skin is warm and dry. Findings: Bruising present. Comments: Surgical incisions without swelling or drainage. Diagnostics: Reviewed in EMR Labs: Reviewed in EMR BMP: Recent Labs 06/17/25 0016 06/18/25 0015 06/18/25 1515 NA 135* 133* 137 K 4.1 4.6 4.4 CL 103 102 109* CO2 25 21* 20* BUN 10 18 12 CREATININE 0.72 0.71 0.80 CALCIUM 8.0* 8.9 10.6* MG 2.1 2.1 5.2* PHOS -- -- 3.3 CBC: Recent Labs 06/17/25 0016 06/18/25 0015 06/18/25 1515 WBC 5.9 5.9 6.5 HGB 11.0* 11.5* 8.2 7.3* HCT 33.3* 34.6* 22.5* PLT 183 190 99* MCV 94.6 94.3 97.0 RDW 13.3 13.3 13.6 INR: Recent Labs 06/18/25 1515 INR 1.4* Assessment: MVCAD s/p CABG NSTEMI HLD Raynaud's Osteoporosis Anxiety/depression Chronic back pain IBS/constipation Hypothyroidism Post operative Pulm Management: Normal Post-operative Course Post-operative Atrial Fibrillation: []Yes [x] No Acute blood loss anemia/consumptive thrombocytopenia Plan: - Sugamadex x1 - Wean sedation as able, goal RASS -1 to 0 - SAT/SBT when appropriate->extubate when appropriate - STAT CXR and EKG - Review labs, re-send as needed - Hemodynamic goals: CI >2.0, SBP 90-130 mmHg, MAP 60-75 - PRN Hypertension Nipride -PRN Hypotension CI >2.0 euvolemic with low SVR- Levophed gtt CI <2.0 euvolemic - Epinephrine gtt - Temp pacing wires/mode: V-wires to backup - Chest tubes: no air leak or fluctuation noted, suction -20 - Cefazolin - surgical prophy for 5 doses total - Wean to Extubation: Arrival Time in unit: 1603 - Vent: ACVC+, TV 6ml/kg/min, rate 12, fio2 100% PEEP 8 VAP protocol: HOB >30 degrees; peridex BID - Insulin gtt; per endo/protocol - GI prophy: Protonix IV daily Critical Care time spent 30 minutes. The time involved in the performance of this care was exclusive of separately billable procedures, teaching time and treating other patients. The time was spent personally by myself for the following activities: examination of the patient, ordering and/or performing treatment, reviewing the laboratory and radiographic studies, and if applicable, ventilator management and blood gas interpretation. Patient treatment plan and plan of care discuss with Dr. Latrell Kidd Cosigned by Latrell Kidd DO at 06/19/2025 4:41 PM EDT Associated attestation - Latrell Kidd DO - 06/19/2025 4:41 PM EDT I have personally performed a [id number] diagnostic evaluation on this patient on date of service 06/19/25. History, labs, imaging studies, and electronic medical record have been reviewed by me. This note documented by the []Critical Care Fellow []warehouse general laborer [x]CRISTIANO reflects my history, exam, and medical decision making. I have reviewed and agree with the care plan. Changes were made in the orders as necessary. ROS documentation was reviewed and negative unless otherwise stated in HPI. Additional pertinent interval history, ROS, and physical exam findings: AdmitDate = 06/14/2025 LOS: 5 Came from [facility]. P/w worsening CP with exertion. Prior to presentation to OSH her CP was not resolving with rest. 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 Transferred to [facility] for CABG. Assessment: MVCAD s/p CABG x3 06/18/25.. Post op pulm mgmt Stress hyperglycemia in setting of preDM (based on A1c of 5.8) Hypothyroidism Osteoporosis Chronic back pain Plan: Agree with plan per CRISTIANO note. In addition, will attempt to SBT once more awake, off sedation, and paralytic reversed. Disposition: Unchanged. Critical Care Time: 30min Or Noncritical Care Time: n/a Total time caring for this patient including direct patient contact, review of data including imaging and labs, discussions with other team members and physicians, excluding procedures. Associated Order(s): IP CONSULT TO CARDIAC REHAB Received referral and reviewed chart. Unable to discuss Phase II Cardiopulmonary Rehab Referral with Richie Armas at this time. Will follow to discuss program when appropriate. Patient will be contacted at home if discharged prior to discussion. Associated Order(s): IP CONSULT TO CARDIOTHORACIC SURGERY Cardiac Surgery Consult Note Reason for Consult: We were asked by Dr. Selvin Lynch MD to see Richie Armas and offer our opinion on the evaluation and treatment of CAD. Ms. Armas is a 75 y.o. female who presented to OSH, underwent LHC demonstrating severe multivessel CAD. ASSESSMENT / PLAN: Richie Armas is a 75 y.o. year old female with severe multivessel coronary artery disease. I reviewed the left heart cath findings with the patient at bedside. Notably she has severe multivessel coronary artery disease. We had a lengthy discussion regarding approaches to this disease. These included no intervention, medical therapy alone, percutaneous approaches, and surgical revascularization. Given the extent and location of the disease, they would derive significant benefit from surgical revascularization which would provide the most complete and durable revascularization option. We discussed the risks, benefits, and alternatives to surgery surgical revascularization. The risks of the procedure/s include but are not limited to, bleeding, infection, pneumonia, respiratory failure, prolonged Intensive Care Unit stay, multiorgan failure, renal failure needing temporary and/or permanent dialysis, cerebrovascular accident, pulmonary embolism, deep venous thrombosis, cardiac failure or ischemia or arrhythmia, and . The patient was given an opportunity to ask questions and these were answered at this time. At this time, they would like to proceed with surgical evaluation. Please obtain an echocardiogram, carotid duplex, noncontrast CT chest, lower extremity vein mapping, and Preoperative labs. We will tentatively plan for surgery in the near future assuming the patient remains asymptomatic and stable and pending the results of these studies. - Laboratory Testing Including (if not already obtained): - Urinalysis with reflex to culture - LFTs, albumin and prealbumin - High-risk surgery MRSA screen (nares only) - TSH, T4Free - Hemoglobin A1C - Lipid profile - Chemistry and CBC with differential - Type and Cross (within 24 hours of surgery for inpatient) - Carotid duplex ultrasound - Echocardiogram - Non-contrast chest CT Thank you for the consult. Please call with any additional questions or concerns. Shaunna Johnston DO, DO REVIEW OF SYSTEMS Full review of systems performed. All others are negative except as indicated in HPI. RELEVANT INFORMATION Medical History[1] Surgical History[2] Family History[3] Social History Tobacco Use History[4] Social History Substance and Sexual Activity Alcohol Use Not on file Allergies Allergies[5] Current Medications Scheduled Meds:Scheduled Meds[6] Continuous Infusions:Continuous Meds[7] PRN Meds:PRN Meds[8] PHYSICAL EXAM Physical Exam Vital Signs (24hrs): Blood pressure 150/82, pulse 71, temperature 36.2 C (97.1 F), temperature source Temporal, resp. rate 17, weight 137 lb 5.6 oz (62.3 kg), SpO2 98%. There is no height or weight on file to calculate BMI. Intake/Output Summary (Last 24 hours) at 06/15/2025 09 Last data filed at 06/14/20252002 Gross per 24 hour Intake 300 ml Output 300 ml Net 0 ml General appearance: alert, cooperative, appears stated age Lungs: clear to auscultation bilaterally Heart: regular rate and rhythm, S1, S2 normal, no murmur, click, rub or gallop Abdomen: soft, non-tender. Bowel sounds normal. No masses, no organomegaly Extremities: extremities normal, atraumatic, no cyanosis or edema, Normal ROM. Pulses: 2+ and symmetric Skin: Skin color, texture, turgor normal. No rashes or lesions Neurologic: Grossly normal Psych: appropriate mood and affect for clinical situation DIAGNOSTIC RESULTS Heart Catheterization Images from OSH reviewed Echocardiogram pending Imaging pending Labs: @ABGROUNDS@ @LASTLABOSUSHORT(WBC,HGB,PLATELE T,PTT,INR,SODIUM,POTASSIUM,CHLOR EDWIGE,CO2,BUN,CREATININE,CALCIUM,M AGNESIUM,PHOSPHORUS,LACTATE,VALDIVIA SFERASEA,AST,GGT,GAMMAGT,ALKPHOS ,BILITOTAL,BILIDIRECT,ALBUMIN,OH EALBUMIN,HGBA1C)@ [1] No past medical history on file. [2] No past surgical history on file. [3] No family history on file. [4] Social History Tobacco Use Smoking Status Unknown Smokeless Tobacco Not on file [5] Allergies Allergen Reactions Flexeril [Cyclobenzaprine] Itching [6] amitriptyline, 50 mg, Oral, Nightly aspirin, 81 mg, Oral, Daily carvedilol, 6.25 mg, Oral, BID WC levothyroxine, 75 mcg, Oral, qAM AC magnesium hydroxide, 30 mL, Oral, BID Melatonin, 0.3 mg, SubLINGual, Nightly mupirocin, 1 Application, Nasal, BID pantoprazole, 40 mg, Oral, qAM AC polyethylene glycol (PEG) 3350, 17 g, Oral, BID senna-docusate sodium, 2 tablet, Oral, Daily sodium chloride 0.9%, 5-40 mL, IntraVENous, q12h tiZANidine, 4 mg, Oral, Nightly venlafaxine XR, 75 mg, Oral, Daily with breakfast [7] heparin, 5-30 Units/kg/hr, Last Rate: 13 Units/kg/hr (06/15/25 0700) nitroglycerin, 5-200 mcg/min, Last Rate: 5 mcg/min (06/14/25 1729) [8] PRN medications: acetaminophen OR acetaminophen, heparin, heparin, hydrOXYzine pamoate, ondansetron ODT OR ondansetron, sodium chloride, sodium chloride 0.9% documented in this encounter [facility] 06-19-2025 Note Nutrition Assessment Type and Reason for Visit: Initial, Consult (post-op diet education) Nutrition Recommendations/Plan: Recommend goal of Regular/Low Fat/Low Chol/High Fiber/SYMONE diet. Monitor BG levels and need for CHO restrictions. Favor most liberal diet to promote po intake. Per MNT: Glucerna shake once daily to supplement intake (8oz, 220kcal, 10gm protein). Recommend record po intake in I/O flowsheet to monitor. Provided [facility] Diet for Heart Health handout. Unable to review with pt at this time, but will re-attempt upon follow-up as able. RD will monitor & follow weekly. Education: Educated on Heart Healthy Nutrition Learners: Patient Readiness: Pt sleepy this morning. Method: Handout Response: Needs Reinforcement Contact name and number provided. Malnutrition Assessment: Malnutrition Status: At risk for malnutrition (Comment) (monitor po intake & weights) Nutrition Assessment: 75yo female POD #1 CABG x 3. Extubated last night. PMH CKD 2, Raynaud's, anxiety/depression, IBS/constipation, GERD, fibromyalgia, hypothyroidism, chronic low back pain S/P lumbar spinal surgery. Labs: Glucose elevated 116-127, HbA1c 5.8%, Calcium low 8.2, Chol elevated 295. Medications reviewed. NPO diet --> Full Liquid. Pt up in chair, very sleepy. Estimated Daily Nutrient Needs: Energy Requirements Based On: Kcal/kg Weight Used for Energy Requirements: Current Weight for Energy Calculation (kg): 63.7 kg Total Energy Requirements (kcals/day): 22-25 kcal/kg = 9403-7762 kcal Weight Used for Protein Requirements: Current Weight in Kg Used for Protein Requirements: 63.7 kg Estimated Total Protein (g/day): 1-1.2 gm/kg = 64-76 gm Estimated Daily Total Fluid (ml/day): per MD recommendations Nutrition Related Findings: +I/O, no edema, Wilmer 17, hypoactive BS, chronic constipation, BM 06/17 Wound Type: Surgical Incision Current Nutrition Therapies: Adult diet Full liquid Current Oral Intake Average Meal Intake: (NPO --> Full Liquids) Average Supplements Intake: NPO Anthropometric Measures: Height: 160 cm (5' 3) Current Body Weight: 63.7 kg (140 lb 6.9 oz) Weight Source: Not Specified Powersite Body Weight (lbs) (Calculated): 115 lbs Powersite Body Weight (Kg) (Calculated): 52 kg % Powersite Body Weight (Calculated): 122.1 % BMI (kg/m2) (Calculated): 24.9 BMI Categories: Normal Weight (BMI 18.5-24.9) Nutrition Diagnosis: Inadequate oral intake related to acute injury/trauma as evidenced by NPO or clear liquid status due to medical condition Nutrition Interventions: Nutrition Education/Counseling: Survival skills/brief education completed Coordination of Nutrition Care: Continue to monitor while inpatient Goals: Goals: other (specify) Specify Other Goals: diet to advance to solids Nutrition Monitoring and Evaluation: Behavioral-Environmental Outcomes: Knowledge or Skill Food/Nutrient Intake Outcomes: Diet Advancement/Tolerance, Food and Nutrient Intake, Supplement Intake Physical Signs/Symptoms Outcomes: Biochemical Data, Chewing or Swallowing, GI Status, Fluid Status or Edema, Hemodynamic Status, Meal Time Behavior, Nutrition Focused Physical Findings, Skin, Weight Discharge Planning: Too soon to determine Jennifer Al RD Contact: Gnip mckenzie or *[phone] [facility] 06-19-2025 Note Care Management Prog ress Note Short Medical why still here: Telemetry, wean O2, IV Abx, Insulin gtt and PT/OT evaluation. Planned Discharge Disposition: Home Health Services pending progress and therapy recommendations. Barriers/Today we still Wait: Administering IV medications, Clinical stability Length of Stay (Days): 5 GMLOS: 1.7 [facility] 06-18-2025 Note [facility] Respiratory Care Department Progress Note Spontaneous Awakening Trial Wean Screen SpO2>/=88%: Yes (06/18/252036) FiO2 PEEP HR <140 BPM: Yes (06/18/252036) RR MAP >/= 65mmHg: Yes (06/18/252036) Arterial pH >7.30: Yes (06/18/252036) Safety Screen Spontaneous Breathing Trial (SBT - RT) : Proceed with SBT - No exclusion criteria met (06/18/252036) Spontaneous Breathing Trial Weaning Start Time: 2155 (06/18/252155) Weaning Tidal Volume: 383 mL (06/18/252155) Weaning Respiratory Rate: 12 (06/18/252155) Spontaneous Minute Volume (MV): 4.4 (06/18/252155) Total RSBI: 31.33 (06/18/252155) Weaning Tolerance: Good (06/18/252155) Weaning Stop Time: 2145 (06/18/252143) Weaning Duration (min): 35 (06/18/252155) Spontaneous Breathing Trial (SBT - RT) Outcome: SBT Passed (06/18/252155) Vent Settings Vent Mode: Assist control (06/18/251999) Mandatory Type: VC+ (06/18/251999) Resp Rate (Set): 12 (06/18/251714) Vt (Set, mL): 310 mL (06/18/251714) FiO2 (%): 40 % (06/18/251999) PEEP/CPAP (cm H2O): 8 cm H20 (06/18/251714) Inspiratory Time (sec): 0.9 sec (06/18/251714) Vitals MAP (mmHg): 68 (06/18/251999) Heart Rate: 61 (06/18/251999) Resp: 19 (06/18/251999) SpO2: 99 % (06/18/251999) Suctioning/Secretions ABG results Recent Labs 06/18/25 1515 06/18/25 1933 PHART 7.394 7.300* DEA5NGR 38.9 48.6* PO2ART 359.3* 159.7* CPS7TFP 23.2 23.4 [id number] Ventilator Ventilator Does this patient meet criteria for termination of mechanical ventilation Yes- Notified physician below Name of physician notified via secure chat or in person : (NA if patient did not meet criteria) Comments: Thank you for involving Respiratory in the care of this patient, [facility] 06-18-2025 Note Formatting of this n ote is different from the original. Addendum created 06/18/25 161 by Naresh Motta CRNA Intraprocedure Meds edited (Anesthesia) [facility] 06-18-2025 Note Addendum created 1613 by Naresh Motta CRNA Intraprocedure Meds edited (Anesthesia) [facility] 06-18-2025 Miscellaneous Notes Formattin g of this note is different from the original. Addendum created 06/18/25 161 by Naresh Motta CRNA Intraprocedure Meds edited (Anesthesia) Patient: Richie Armas Procedure Summary Date: 06/18/25 Room / Location: [address] Operating Room Anesthesia Start: 1154 Anesthesia Stop: 1605 Procedures: CORONARY ARTERY BYPASS GRAFT (Chest) ECHOCARDIOGRAM, TRANSESOPHAGEAL Diagnosis: NSTEMI (non-ST elevation myocardial infarction) (HCC) Surgeons: Shaunna Johnston DO Responsible Provider: Naresh Lim MD Anesthesia Type: general ASA Status: 4 - Emergent Anesthesia Type: general Vitals Value Taken Time BP 105/39 06/18/25 16:03 Temp 35.7 C (96.3 F) 06/18/25 16:03 Pulse 58 06/18/25 16:11 Resp 11 06/18/25 16:11 SpO2 100 % 06/18/25 16:11 Vitals shown include unfiled device data. Anesthesia Post Evaluation Patient location during evaluation: ICU Patient participation: complete - patient cannot participate Level of consciousness: intubated and sedated Pain management: adequate Airway patency: patent Dental Injury: no Cardiovascular status: acceptable and hemodynamically stable Respiratory status: acceptable, ETT, intubated and ventilator Hydration status: acceptable Nausea/Vomiting: controlled No notable events documented. Patient can be discharged once all PACU criteria has been met. documented in this encounter [facility] 06-18-2025 Note Formatting of this n ote is different from the original. Patient: Richie Armas Procedure Summary Date: 06/18/25 Room / Location: [address] Operating Room Anesthesia Start: 1154 Anesthesia Stop: 1605 Procedures: CORONARY ARTERY BYPASS GRAFT (Chest) ECHOCARDIOGRAM, TRANSESOPHAGEAL Diagnosis: NSTEMI (non-ST elevation myocardial infarction) ([facility]) Surgeons: Shaunna Johnston DO Responsible Provider: Naresh Lmi MD Anesthesia Type: general ASA Status: 4 - Emergent Anesthesia Type: general Vitals Value Taken Time BP 105/39 06/18/25 16:03 Temp 35.7 C (96.3 F) 06/18/25 16:03 Pulse 58 06/18/25 16:11 Resp 11 06/18/25 16:11 SpO2 100 % 06/18/25 16:11 Vitals shown include unfiled device data. Anesthesia Post Evaluation Patient location during evaluation: ICU Patient participation: complete - patient cannot participate Level of consciousness: intubated and sedated Pain management: adequate Airway patency: patent Dental Injury: no Cardiovascular status: acceptable and hemodynamically stable Respiratory status: acceptable, ETT, intubated and ventilator Hydration status: acceptable Nausea/Vomiting: controlled No notable events documented. Patient can be discharged once all PACU criteria has been met. [facility] 06-18-2025 Note Patient: Richie duboser Procedure Summary Date: 06/18/25 Room / Location: [address] Operating Room Anesthesia Start: 1154 Anesthesia Stop: 1605 Procedures: CORONARY ARTERY BYPASS GRAFT (Chest) ECHOCARDIOGRAM, TRANSESOPHAGEAL Diagnosis: NSTEMI (non-ST elevation myocardial infarction) (HCC) Surgeons: Shaunna Johnston DO Responsible Provider: Naresh Lim MD Anesthesia Type: general ASA Status: 4 - Emergent Anesthesia Type: general Vitals Value Taken Time BP 105/39 06/18/25 16:03 Temp 35.7 ?C (96.3 ?F) 06/18/25 16:03 Pulse 58 06/18/25 16:11 Resp 11 06/18/25 16:11 SpO2 100 % 06/18/25 16:11 Vitals shown include unfiled device data. Anesthesia Post Evaluation Patient location during evaluation: ICU Patient participation: complete - patient cannot participate Level of consciousness: intubated and sedated Pain management: adequate Airway patency: patent Dental Injury: no Cardiovascular status: acceptable and hemodynamically stable Respiratory status: acceptable, ETT, intubated and ventilator Hydration status: acceptable Nausea/Vomiting: controlled No notable events documented. Patient can be discharged once all PACU criteria has been met. [facility] 06-18-2025 Anesthesiology Postoperative evaluation and management note Patient: Richie Armas Procedure Summary Date: 06/18/25 Room / Location: [address] Operating Room Anesthesia Start: 1154 Anesthesia Stop: 1605 Procedures: CORONARY ARTERY BYPASS GRAFT (Chest) ECHOCARDIOGRAM, TRANSESOPHAGEAL Diagnosis: NSTEMI (non-ST elevation myocardial infarction) (HCC) Surgeons: Shaunna Johnston DO Responsible Provider: Naresh Lim MD Anesthesia Type: general ASA Status: 4 - Emergent Anesthesia Type: general Vitals Value Taken Time BP 105/39 06/18/25 16:03 Temp 35.7 C (96.3 F) 06/18/25 16:03 Pulse 58 06/18/25 16:11 Resp 11 06/18/25 16:11 SpO2 100 % 06/18/25 16:11 Vitals shown include unfiled device data. Anesthesia Post Evaluation Patient participation: complete - patient cannot participate Regional recovery expected within 48 hours: not expected Level of consciousness: deep sedation Pain management: managed Airway patency: patent Respiratory status: supplemental oxygen and invasive assisted ventilation Cardiovascular status: hemodynamically stable Hydration status: normovolemic PONV: none No notable events documented. MIPS #430 PONV Patient received an inhalational anesthetic (4554F) Patient exhibits three or more risk factors for PONV (4556F) Patient received at leaset 2 prophylactic Rx PONV anti-emtic agents of different classes preop and/or intraop (G9775) MIPS # 424 Perioperative Temperature Management Anesthesia time was 60 minutes or longer (4255F) Anesthesai administered was General (inhalational or TIVA) or Neuraxial block (X0424) At least one body temperature greater than 95.8F/35.5C achieved within the 30 mins immediately prior to or the 15 minutes immediately following anesthesia end time (G9771) MIPS #477 Multimodal Pain Management Not emergent case Patient was administered multimodal pain management (two or more drugs and/or interventions excluding systemic opioids) in the periopeartive period occurring at some time between 6 hours prior to anesthesia start time until discharged from PACU (G2148) MIPS #404 Anesthesiology Smoking Abstinence The patient is not a current smoker (e.g. cigarette, cigar, pipe, e-cigarette/vaping/marijuana) If no stop here (XX404) I completed my handoff to the receiving clinician during which we: 1. Identified the patient 2. Identified the responsible provider 3. Reviewed the pertinent medical history 4. Discussed the surgical course 5. Reviewed intra-op anesthesia management and issues during anesthesia 6. Set expectations for post-procedure period 7. Allowed opportunity for questions and acknowledgement of understanding. [facility] 06-18-2025 Note Patient: Richie Euceda ier Procedure Summary Date: 06/18/25 Room / Location: [address] Operating Room Anesthesia Start: 1154 Anesthesia Stop: 1605 Procedures: CORONARY ARTERY BYPASS GRAFT (Chest) ECHOCARDIOGRAM, TRANSESOPHAGEAL Diagnosis: NSTEMI (non-ST elevation myocardial infarction) (HCC) Surgeons: Shaunna Johnston DO Responsible Provider: Naresh Lim MD Anesthesia Type: general ASA Status: 4 - Emergent Anesthesia Type: general Vitals Value Taken Time BP 105/39 06/18/25 16:03 Temp 35.7 ?C (96.3 ?F) 06/18/25 16:03 Pulse 58 06/18/25 16:11 Resp 11 06/18/25 16:11 SpO2 100 % 06/18/25 16:11 Vitals shown include unfiled device data. Anesthesia Post Evaluation Patient participation: complete - patient cannot participate Regional recovery expected within 48 hours: not expected Level of consciousness: deep sedation Pain management: managed Airway patency: patent Respiratory status: supplemental oxygen and invasive assisted ventilation Cardiovascular status: hemodynamically stable Hydration status: normovolemic PONV: none No notable events documented. MIPS #430 PONV Patient received an inhalational anesthetic (4554F) Patient exhibits three or more risk factors for PONV (4556F) Patient received at aset 2 prophylactic Rx PONV anti-emtic agents of different classes preop and/or intraop (G9775) MIPS # 424 Perioperative Temperature Management Anesthesia time was 60 minutes or longer (4255F) Anesthesai administered was General (inhalational or TIVA) or Neuraxial block (X0424) At least one body temperature greater than 95.8F/35.5C achieved within the 30 mins immediately prior to or the 15 minutes immediately following anesthesia end time (G9771) MIPS #477 Multimodal Pain Management Not emergent case Patient was administered multimodal pain management (two or more drugs and/or interventions excluding systemic opioids) in the periopeartive period occurring at some time between 6 hours prior to anesthesia start time until discharged from PACU (G2148) MIPS #404 Anesthesiology Smoking Abstinence The patient is not a current smoker (e.g. cigarette, cigar, pipe, e-cigarette/vaping/marijuana) If no stop here (XX404) I completed my handoff to the receiving clinician during which we: 1. Identified the patient 2. Identified the responsible provider 3. Reviewed the pertinent medical history 4. Discussed the surgical course 5. Reviewed intra-op anesthesia management and issues during anesthesia 6. Set expectations for post-procedure period 7. Allowed opportunity for questions and acknowledgement of understanding. [facility] 06-18-2025 Surgical operatio n note Patient: Richie Armas Procedure Summary Date: 06/18/25 Room / Location: [facility] OR Operating Room Anesthesia Start: 1154 Anesthesia Stop: 1605 Procedures: CORONARY ARTERY BYPASS GRAFT (Chest) ECHOCARDIOGRAM, TRANSESOPHAGEAL Diagnosis: NSTEMI (non-ST elevation myocardial infarction) ([facility]) Surgeons: Shaunna Johnston DO Responsible Provider: Naresh Lim MD Anesthesia Type: general ASA Status: 4 - Emergent Anesthesia Type: general Vitals Value Taken Time BP 105/39 06/18/25 16:03 Temp 35.7 C (96.3 F) 06/18/25 16:03 Pulse 58 06/18/25 16:11 Resp 11 06/18/25 16:11 SpO2 100 % 06/18/25 16:11 Vitals shown include unfiled device data. Anesthesia Post Evaluation Patient participation: complete - patient cannot participate Regional recovery expected within 48 hours: not expected Level of consciousness: deep sedation Pain management: managed Airway patency: patent Respiratory status: supplemental oxygen and invasive assisted ventilation Cardiovascular status: hemodynamically stable Hydration status: normovolemic PONV: none No notable events documented. MIPS #430 PONV Patient received an inhalational anesthetic (4554F) Patient exhibits three or more risk factors for PONV (4556F) Patient received at leaset 2 prophylactic Rx PONV anti-emtic agents of different classes preop and/or intraop (G9775) MIPS # 424 Perioperative Temperature Management Anesthesia time was 60 minutes or longer (4255F) Anesthesai administered was General (inhalational or TIVA) or Neuraxial block (X0424) At least one body temperature greater than 95.8F/35.5C achieved within the 30 mins immediately prior to or the 15 minutes immediately following anesthesia end time (G9771) MIPS #477 Multimodal Pain Management Not emergent case Patient was administered multimodal pain management (two or more drugs and/or interventions excluding systemic opioids) in the periopeartive period occurring at some time between 6 hours prior to anesthesia start time until discharged from PACU (G2148) MIPS #404 Anesthesiology Smoking Abstinence The patient is not a current smoker (e.g. cigarette, cigar, pipe, e-cigarette/vaping/marijuana) If no stop here (XX404) I completed my handoff to the receiving clinician during which we: 1. Identified the patient 2. Identified the responsible provider 3. Reviewed the pertinent medical history 4. Discussed the surgical course 5. Reviewed intra-op anesthesia management and issues during anesthesia 6. Set expectations for post-procedure period 7. Allowed opportunity for questions and acknowledgement of understanding. Associated Order(s): Central Venous Line Central Venous Line: Date/Time: 06/18/2025 12:18 PM A central venous line was placed in the Procedural for the following indication(s): Sterility preparation included the following: provider hand hygiene performed prior to central venous catheter insertion, all 5 sterile barriers used (gloves, gown, cap, mask, large sterile drape) during central venous catheter insertion, antiseptic used during central venous catheter insertion and skin prep agent completely dried prior to procedure. Medical reason for not performing maximal sterile barrier technique: yes The patient was placed in Trendelenburg position. Right The site was prepped with Chlorhexidine. Size: 8.5 Fr Catheter type: introducer with PA Catheter Number of Lumens: single lumen During the procedure, the following specific steps were taken: target vein identified, needle advanced into vein and blood aspirated and guidewire advanced into vein.The procedure was performed using ultrasound guidance . Sterile gel and probe cover used in ultrasound-guided central venous catheter insertion. Intravenous verification was obtained by ultrasound, venous blood return and transducer. Post insertion care included: all ports aspirated, all ports flushed easily, guidewire removed intact, Biopatch applied, line sutured in place and dressing applied. During the procedure the patient experienced: patient tolerated procedure well with no complications. A non-oximetric, 7.5 FR (size) Pulmonary Artery Catheter (PAC) was placed through the Introducer CVL in the right internal jugular vein. The PAC placement was confirmed by pressure tracing changes and ANTONIO and secured at 40 cm (depth). The patient experienced the following events during the procedure: no complications. Staffing Performed: anesthesiologist Anesthesiologist: Naresh Lim MD Associated Order(s): Arterial Line Arterial Line: Date/Time: 06/18/2025 12:04 PM An arterial line was placed in the Procedural for the following indication(s): continuous blood pressure monitoring and blood sampling needed. The procedure was performed using ultrasound guidance . A 20 gauge (size), 1 and 3/4 inch (length), Arrow (type) catheter was placed, into the Left radial artery, secured by Tegaderm and tape. Events: patient tolerated procedure well with no complications. Staffing Performed: SRNA Associated Order(s): Airway Airway Date/Time: 06/18/2025 12:06 PM Reason: scheduled Airway not difficult General Information and Staff Patient location during procedure: Procedural Resident/TITLE 1 TUTOR: Naresh Motta CRNA Performed: TITLE 1 TUTOR Patient Condition Indications for airway management: airway protection and anesthesia Patient position: sniffing MILS maintained throughout Sedation level: Asleep Final Airway Details Preoxygenated: yes Final airway type: endotracheal airway Successful airway: ETT Cuffed: yes Successful intubation technique: direct laryngoscopy Adjuncts used in placement: intubating stylet and anterior pressure/BURP Endotracheal tube insertion site: oral Blade: Jordan Blade size: #3 ETT size (mm): 7.0 Cormack-Lehane Classification: grade IIb - view of arytenoids or posterior of glottis only Placement verified by: capnometry Measured from: lips ETT to lips (cm): 21 Number of attempts at approach: 1 Patient: Richie Armas Procedure Information Date/Time: 06/18/25 1145 Procedures: CORONARY ARTERY BYPASS GRAFT (Chest) ECHOCARDIOGRAM, TRANSESOPHAGEAL Location: [facility] OR [address] [place] [address] Operating Room Surgeons: Shaunna Johnston DO Relevant Problems Cardio (+) NSTEMI (non-ST elevation myocardial infarction) (HCC) Past Medical History: No past medical history on file. Past Surgical History: No past surgical history on file. Social History: TOBACCO: has no history on file for tobacco use. ETOH: has no history on file for alcohol use. Social History Substance and Sexual Activity Drug Use Not on file Family History: Family History[1] Screening: unknown Clinical information reviewed: Allergies Meds Physical Exam Airway Mallampati: unable to assess Cardiovascular Dental Unable to examine Pulmonary Abdominal Anesthesia Plan Any family history or previous problems with anesthesia no We discussed risks, benefits, alternatives and likelihood of success with the Spouse and patient. ASA 4 - emergent general Any family history or previous problems with anesthesia no The patient is not a current smoker. patient is NPO appropriate MEG Screening Labs: Lab Results Component Value Date WBC 5.9 06/18/2025 HGB 11.5 (L) 06/18/2025 HCT 34.6 (L) 06/18/2025 MCV 94.3 06/18/2025 PLT 190 06/18/2025 Lab Results Component Value Date NA 133 (L) 06/18/2025 K 4.6 06/18/2025 CL 102 06/18/2025 CO2 21 (L) 06/18/2025 BUN 18 06/18/2025 CREATININE 0.71 06/18/2025 GLUCOSE 100 06/18/2025 CALCIUM 8.9 06/18/2025 PROT 6.0 (L) 06/18/2025 ALKPHOS 52 06/18/2025 AST 31 06/18/2025 ALT 7 06/18/2025 EGFR 89.4 06/18/2025 Pain Score: 8 Transthoracic echocardiogram (TTE) complete with contrast, bubble, strain, and 3D PRN Result Date: 06/16/2025 Left Ventricle: Left ventricle size is normal. Normal wall thickness. Normal left ventricular systolic function. EF by visual approximation is 50%. EF by 2D Simpsons Biplane is 63%. See diagram for wall motion findings. Right Ventricle: Right ventricle size is normal. Normal systolic function. Aortic Valve: Mildly thickened cusps. Mildly calcified cusps. Cusp sclerosis. Trace regurgitation. No stenosis. Mitral Valve: Mildly thickened leaflets. Calcified leaflets. Annular calcification. Mild (1+) regurgitation. No stenosis noted. Tricuspid Valve: RVSP is 22 mmHg. Left Atrium: Left atrium size is normal. Right Atrium: Right atrium size is normal. Aorta: Normal sized sinuses of Valsalva and ascending aorta. No significant valvular abnormalities. 06/14/25 ECG 12-LEAD (Preliminary) This result has not been signed. Information might be incomplete. Impression Sinus rhythm LVH w/ repol abnormalities, possible ischemia Equipment Requests: Additional Equipment Requests [1] No family history on file. documented in this encounter [facility] 06-18-2025 Procedure anesthe debra Narrative Procedure Name Responsible Anesthesiologist Anesthesia Start Time Anesthesia Stop Time CORONARY ARTERY BYPASS GRAFT (Chest) Naresh Lim MD 06/18/25 1154 06/18/25 1605 Events Date Time Event Comment 06/18/2025 1154 An Start 1154 An Start Data 1154 Perfusion Start 1154 In Room 1203 An Induction The patient was reevaluated immediately before moderate or deep sedation use and before anesthesia induction. 1206 An Intubation 1220 Anesthesia Ready 1224 AN ANTONIO Placed By: Karolina Motta 1238 Proc Start 1343 ACT Adequate for CPB 1351 Art Line Pulse/Test 1352 An CV Bypass init 1352 An Clamp On 1439 An Clamp Off 1453 An CV Bypass Ended 1536 Proc Fin 1537 Perfusion Stop 1557 Out of Room 1557 an stop data 1605 An Stop Meds Name Total midazolam (Versed) injection 2 mg/2 mL 4 mg rocuronium (ZeMuron) 50 mg/5 mL injectio n 170 mg dexAMETHasone (Decadron) PF injection 10 mg/mL 4 mg esmolol (Brevibloc) 20 mg ondansetron (Zofran) 2 mg/mL injection 4 mg phenylephrine syringe 1 mg/ 10 mL syring e (IV Push for HYPOTENSION) 600 mcg magnesium sulfate 2000mg in 50 mL IVPB p remix 2 g perfusion prime builder 510 mL albumin human 25% 300 mL sodium bicarbonate 1 mEq/mL IV injection 25 mEq phenylephrine (PRASANNA-SYNEPHRINE) injection 100 mcg fentaNYL (Sublimaze) injection 20 mL 1,0 00 mcg etomidate (Amidate) injection 14 mg heparin injection 1,000 units/mL 45,000 Units protamine injection 250 mg insulin regular infusion 100 units in 10 0 mL NS (premix) 4.4 Units propofol (Diprivan) infusion 10 mg/mL 52 .76 mg EPINEPHrine 5 mg in sodium chloride 250 mL infusion (Lkb-Ibrvaq-Kxauj) 0.15 mg ceFAZolin (Ancef) vial 1 g 4 g aminocaproic acid (Amicar) 10g in sodium chloride 0.9% 290 mL infusion 7.62 g EPINEPHrine PF (Adrenalin) injection 1 m g/mL 20 mcg lidocaine (Xylocaine) 2% injection 100 m g calcium chloride 10% IV syringe 1,000 mg sodium chloride 0.9 % infusion 700 mL * Agents Name O2 Sevoflurane Isoflurane * Blood No blood administrations on file. Lines, Drains, and Airways Type Details Placement Removal Peripheral IV Placement Date: 06/14/25; Placement Time: 1200; Existing LDA Placed by: Other hospital; Orientation: Right; Location: Antecubital 06/14/25 1200 by Aftab Mata RN Wound/Incision 06/18/25; Incision; Sternum 06/18/25 0000 by Kitty Guzman RN Chest Tube Placement Date: 06/18/25; Tube Number: 2; Size: 24 Fr 06/18/25 0000 by Kitty Guzman RN Peripheral IV Placement Date: 06/18/25; Placement Time: 0430; Catheter Size: 20 G; Orientation: Anterior, Left; Location: Wrist; Insertion Attempts: 1 06/18/25 0430 by Fredy Vega RN Urethral Catheter Placement Date: 06/18/25; Placement Time: 0500; Urine Returned: Yes 06/18/25 0500 by Fredy Vega RN Arterial Line Placement Date: 06/18/25; Placement Time: 1204 (created via procedure documentation); Size: 20 G; Orientation: Left; Location: Radial; Securement: Taped 06/18/25 1204 by Naresh Motta CRNA Introducer Placement Date: 06/18/25; Placement Time: 1218 (created via procedure documentation); Location: Internal jugular; Orientation: Right 06/18/25 1218 by Naresh Motta CRNA Pulmonary Catheter Single Placement Date: 06/18/25; Placement Time: 1218 (created via procedure documentation); Size: 8.5 Fr; Orientation: Right; Location: Internal jugular; Securement: Sutured 06/18/25 1218 by Naresh Motta CRNA Pacer Wires 06/18/25; 1400; Ventricular 06/18/25 1400 by Cyndee Moore RN Wound/Incision 06/18/25; 1600; Incision; Calf; Anterior, Left 06/18/25 1600 by Cyndee Moore RN ETT Placement Date: 06/18/25; Placement Time: 120 (created via procedure documentation); Type: ETT - single; Single Lumen Tube Size: 7 mm; Cuffed: Yes; Location: Oral; Placement Verification: Capnometry; Airway Comments: Transition to NIV 10/26 per MD order; Removal Date: 06/18/25; Removal Time: 224606/18/25 1206 by Naresh Motta CRNA 06/18/252246 by Kale Yates RRT documented in this encounter [facility] Anesthesiology procedure note* Anesthesia Procedure Notes - Naresh Motta CRNA - 06/18/2025 12:42 PM EDTAssociated Order(s): Central Venous Line Central Venous Line: Date/Time: 06/18/2025 12:18 PM A central venous line was placed in the Procedural for the following indication(s): Sterility preparation included the following: provider hand hygiene performed prior to central venous catheter insertion, all 5 sterile barriers used (gloves, gown, cap, mask, large sterile drape) during central venous catheter insertion, antiseptic used during central venous catheter insertion andskin prep agent completely dried prior to procedure. Medical reason for not performing maximal sterile barrier technique: yes The patient was placed in Trendelenburg position. Right The site was prepped with Chlorhexidine. Size: 8.5 Fr Catheter type: introducer with PA Catheter Number of Lumens: single lumen During the procedure, the following specific steps were taken: target vein identified, needle advanced into vein and blood aspirated and guidewire advanced into vein.The procedure was performed usingultrasound guidance . Sterile gel and probe cover used in ultrasound-guided central venous catheter insertion. Intravenous verification was obtained by ultrasound, venous blood return and transducer. Post insertion care included: all ports aspirated, all ports flushed easily, guidewire removed intact, Biopatch applied, line sutured in place and dressing applied. During the procedure the patient experienced: patient tolerated procedure well with no complications. A non-oximetric, 7.5 FR (size) Pulmonary Artery Catheter (PAC) was placed through the Introducer CVL in the right internal jugular vein. The PAC placement was confirmed by pressure tracing changes and ANTONIO and secured at 40 cm (depth). The patient experienced the following events during the procedure: no complications. Staffing Performed: anesthesiologist Anesthesiologist: Naresh Lim MD [facility]07-29-2025 NoteCentral Venous Line: Date/Time: 06/18/2025 12:18 PM A central venous line was placed in the Procedural for the following indication(s): Sterility preparation included the following: provider hand hygiene performed prior to central venous catheter insertion, all 5 sterile barriers used (gloves, gown, cap, mask, large sterile drape) during central venous catheter insertion, antiseptic used during central venous catheter insertion and skin prep agent completely dried prior to procedure. Medical reason for not performing maximal sterile barrier technique: yes The patient was placed in Trendelenburg position. Right The site was prepped with Chlorhexidine. Size: 8.5 Fr Catheter type: introducer with PA Catheter Number of Lumens: single lumen During the procedure, the following specific steps were taken: target vein identified, needle advanced into vein and blood aspirated and guidewire advanced into vein.The procedure was performed using ultrasound guidance . Sterile gel and probe cover used in ultrasound-guided central venous catheter insertion. Intravenous verification was obtained by ultrasound, venous blood return and transducer. Post insertion care included: all ports aspirated, all ports flushed easily, guidewire removed intact, Biopatch applied, line sutured in place and dressing applied. During the procedure the patient experienced: patient tolerated procedure well with no complications. A non-oximetric, 7.5 FR (size) Pulmonary Artery Catheter (PAC) was placed through the Introducer CVL in the right internal jugular vein. The PAC placement was confirmed by pressure tracing changes and ANTONIO and secured at 40 cm (depth). The patient experienced the following events during the procedure: no complications. Staffing Performed: anesthesiologist Anesthesiologist: Naresh Lim, [facility]07-29-2025 Anesthesiology procedure note* Anesthesia Procedure Notes - Naresh Motta CRNA - 06/18/2025 12:41 PM EDTAssociated Order(s): Arterial Line Arterial Line: Date/Time: 06/18/2025 12:04 PM An arterial line was placed in the Procedural for the following indication(s): continuous blood pressure monitoring and blood sampling needed. The procedure was performed using ultrasound guidance . A 20 gauge (size), 1 and 3/4 inch (length), Arrow (type) catheter was placed, into the Left radial artery, secured by Tegaderm and tape. Events: patient tolerated procedure well with no complications. Staffing Performed: SRNA [facility] [id number] NoteArterial Line: Date/Time: 06/18/2025 12:04 PM An arterial line was placed in the Procedural for the following indication(s): continuous blood pressure monitoring and blood sampling needed. The procedure was performed using ultrasound guidance . A 20 gauge (size), 1 and 3/4 inch (length), Arrow (type) catheter was placed, into the Left radial artery, secured by Tegaderm and tape. Events: patient tolerated procedure well with no complications. Staffing Performed: [facility]07-29-2025 Anesthesiology procedure note* Anesthesia Procedure Notes - Naresh Motta CRNA - 06/18/2025 12:40 PM EDT Associated Order(s): Airway Airway Date/Time: 06/18/2025 12:06 PM Reason: scheduled Airway not difficult General Information and Staff Patient location during procedure: Procedural Resident/TITLE 1 TUTOR: Naresh Motta CRNA Performed: TITLE 1 TUTOR Patient Condition Indications for airway management: airway protection and anesthesia Patient position: sniffing MILS maintained throughout Sedation level: Asleep Final Airway Details Preoxygenated: yes Final airway type: endotracheal airway Successful airway: ETT Cuffed: yes Successful intubation technique: direct laryngoscopy Adjuncts used in placement: intubating stylet and anterior pressure/BURP Endotracheal tube insertion site: oral Blade: Jordan Blade size: #3 ETT size (mm): 7.0 Cormack-Lehane Classification: grade IIb - view of arytenoids or posterior of glottis only Placement verified by: capnometry Measured from: lips ETT to lips (cm): 21 Number of attempts at approach: 1 [facility] [id number] NoteAirway Date/Time: 06/18/2025 12:06 PM Reason: scheduled Airway not difficult General Information and Staff Patient location during procedure: Procedural Resident/TITLE 1 TUTOR: Naresh Motta CRNA Performed: TITLE 1 TUTOR Patient Condition Indications for airway management: airway protection and anesthesia Patient position: sniffing MILS maintained throughout Sedation level: Asleep Final Airway Details Preoxygenated: yes Final airway type: endotracheal airway Successful airway: ETT Cuffed: yes Successful intubation technique: direct laryngoscopy Adjuncts used in placement: intubating stylet and anterior pressure/BURP Endotracheal tube insertion site: oral Blade: Jordan Blade size: #3 ETT size (mm): 7.0 Cormack-Lehane Classification: grade IIb - view of arytenoids or posterior of glottis only Placement verified by: capnometry Measured from: lips ETT to lips (cm): 21 Number of attempts at approach: [address] [place], [place] [id number] Note Cardiothoracic Surgery Operative Report DATE OF PROCEDURE: 06/18/25 PREOPERATIVE DIAGNOSIS: Coronary artery disease, severe multivessel NSTEMI CKD II Raynaud's Anxiety/depression GERD POSTOPERATIVE DIAGNOSIS: Same PROCEDURE: 1. Coronary artery bypass grafting x 3 - Left internal mammary artery to the left anterior descending - Reverse saphenous vein graft to the obtuse marginal artery - Reverse saphenous vein graft to the right posterior descending artery 2. Endoscopic vein harvest, left lower extremity 3. ANTONIO SURGEON: Shaunna Johnston DO MS CORPORATE RECYCLING MANAGER: Josy Chavarria COMPLICATIONS: None intra-op CONDITION: Stable DESCRIPTION OF PROCEDURE: The patient was prepped and draped in the appropriate manner, having undergone general endotracheal anesthetic in addition to Elberta-Olivia catheter placement, arterial line, and corado catheter placement. An antibiotic and a beta karlo were administered pre-operatively and documented. Incision and conduit harvest/preparation: A midline sternotomy incision was utilized in standard fashion. The left internal mammary artery was skeletonized and taken down with clips and bovie cauterization. Papaverine was used. The left lower extremity saphenous vein was harvested via the endoscopic approach. The patient was fully heparinized prior to dividing and prepping the mammary. Retrothymic tunnels were created to facilitate deliver of the IMAs into the pericardium. Cannulation and cardiopulmonary bypass: The pericardium was then opened and the pericardial well was created. Concentric purse strings were placed and the aorta was cannulated with a 20fr EOPA cannula. After adequate de-airing this cannula was connected to the CPB circuit. A purse string was placed around the right atrial appendage and it was cannulated with a 29 multistage venous cannula. Prior to initiating CPB the conduits were prepared. After cannulation, the patient was placed on cardiopulmonary bypass support and drifted to ~34 degrees. Ascending aortic cross-clamp was applied. Antegrade and retrograde cardioplegia (microplegia) was delivered till the heart was arrested in diastole. Cardioplegia was re-administered every 10 to 20 minutes while the ascending aorta was cross clamped. Coronary artery bypass: Targets were identified and were adequate for grafting. Bypasses were performed to the principal obtuse marginal and right posterior descending arteries with 7-0 Prolene distally and 6-0 Prolene proximally to the ascending aorta. The left internal mammary artery was anastomosed to the LAD with 7-0 Prolene. CPB wean and decannulation: The patient was given a dose of warm blood cardioplegia. Valsalva breaths were mechanically administered and the aorta was unclamped. The heart returned to normal sinus rhythm. Pacing wire was placed. The patient was rewarmed and weaned from cardiopulmonary bypass support without difficulty. Protamine was administered and cannulas were removed without difficulty. Two 24Fr efrain drains were placed, one in the left pleural spaceand one in the mediastinum. Closure: Hemostasis was achieved. The sternum and incision were closed with sternal wires, running 0 PDA, 2-0 and 4-0 vicryl stitches. Dressings applied, and the patient was transferred to the cardiovascular intensive care unit in stable condition. Products transfused: None Cardiopulmonary bypass time: 61 minutes Cross clamp time: 46 minutes Intra-op ANTONIO: Low normal EF, 1+ MR Shaunna Johnston DO, MS, [facility] [id number] Anesthesiology Preoperative evaluation and management note* Anesthesia Preprocedure Evaluation - Naresh Lim MD - 06/18/2025 11:41 AM EDT Patient: Richie Armas Procedure Information Date/Time: 06/18/25 1145 Procedures: CORONARY ARTERY BYPASS GRAFT (Chest) ECHOCARDIOGRAM, TRANSESOPHAGEAL Location: [facility] Operating Room Surgeons: Shaunna Johnston, DO Relevant Problems Cardio (+) NSTEMI (non-ST elevation myocardial infarction) (HCC) Past Medical History: No past medical history on file. Past Surgical History: No past surgical history on file. Social History: TOBACCO: has no history on file for tobacco use. ETOH: has no history on file for alcohol use. Social History Substance and Sexual Activity Drug Use Not on file Family History: Family History[1] Screening: unknown Clinical information reviewed: Allergies Meds Physical Exam Airway Mallampati: unable to assess Cardiovascular Dental Unable to examine Pulmonary Abdominal Anesthesia Plan Any family history or previous problems with anesthesia no We discussed risks, benefits, alternatives and likelihood of success with the Spouse and patient. ASA 4 - emergent general Any family history or previous problems with anesthesia no The patient is not a current smoker. patient is NPO appropriate MEG Screening Labs: Lab Results Component Value Date WBC 5.9 06/18/2025 HGB 11.5 (L) 06/18/2025 HCT 34.6 (L) 06/18/2025 MCV 94.3 06/18/2025 PLT 190 06/18/2025 Lab Results Component Value Date NA 133 (L) 06/18/2025 K 4.6 06/18/2025 CL 102 06/18/2025 CO2 21 (L) 06/18/2025 BUN 18 06/18/2025 CREATININE 0.71 06/18/2025 GLUCOSE 100 06/18/2025 CALCIUM 8.9 06/18/2025 PROT 6.0 (L) 06/18/2025 ALKPHOS 52 06/18/2025 AST 31 06/18/2025 ALT 7 06/18/2025 EGFR 89.4 06/18/2025 Pain Score: 8 Transthoracic echocardiogram (TTE) complete with contrast, bubble, strain, and 3D PRN Result Date: 06/16/2025 Left Ventricle: Left ventricle size is normal. Normal wall thickness. Normal left ventricular systolic function. EF by visual approximation is 50%. EF by 2D Simpsons Biplane is 63%. See diagram for wall motion findings. Right Ventricle: Right ventricle size is normal. Normal systolic function. Aortic Valve: Mildly thickened cusps. Mildly calcified cusps. Cusp sclerosis. Trace regurgitation. No stenosis. Mitral Valve: Mildly thickened leaflets. Calcified leaflets. Annular calcification. Mild (1+) regurgitation. No stenosis noted. Tricuspid Valve: RVSP is 22 mmHg. Left Atrium: Left atrium size is normal. Right Atrium: Right atrium size is normal. Aorta: Normal sized sinuses of Valsalva and ascending aorta. No significant valvular abnormalities. 06/14/25 ECG 12-LEAD (Preliminary) This result has not been signed. Information might be incomplete. Impression Sinus rhythm LVH w/ repol abnormalities, possible ischemia Equipment Requests: Additional Equipment Requests [1] No family history on file. [facility] Work Phone: 1(772) 150-370807-29-2025 NotePatient: Richie Armas Procedure Information Date/Time: 06/18/25 1145 Procedures: CORONARY ARTERY BYPASS GRAFT (Chest) ECHOCARDIOGRAM, TRANSESOPHAGEAL Location: [facility] OR Operating Room Surgeons: Shaunna Johnston, DO Relevant Problems Cardio (+) NSTEMI (non-ST elevation myocardial infarction) (HCC) Past Medical History: No past medical history on file. Past Surgical History: No past surgical history on file. Social History: TOBACCO: has no history on file for tobacco use. ETOH: has no history on file for alcohol use. Social History Substance and Sexual Activity Drug Use Not on file Family History: Family History[1] Screening: unknown Clinical information reviewed: Allergies Meds Physical Exam Airway Mallampati: unable to assess Cardiovascular Dental Unable to examine Pulmonary Abdominal Anesthesia Plan Any family history or previous problems with anesthesia no We discussed risks, benefits, alternatives and likelihood of success with the Spouse and patient. ASA 4 - emergent general Any family history or previous problems with anesthesia no The patient is not a current smoker. patient is NPO appropriate MEG Screening Labs: Lab Results Component Value Date WBC 5.9 06/18/2025 HGB 11.5 (L) 06/18/2025 HCT 34.6 (L) 06/18/2025 MCV 94.3 06/18/2025 PLT 190 06/18/2025 Lab Results Component Value Date NA 133 (L) 06/18/2025 K 4.6 06/18/2025 CL 102 06/18/2025 CO2 21 (L) 06/18/2025 BUN 18 06/18/2025 CREATININE 0.71 06/18/2025 GLUCOSE 100 06/18/2025 CALCIUM 8.9 06/18/2025 PROT 6.0 (L) 06/18/2025 ALKPHOS 52 06/18/2025 AST 31 06/18/2025 ALT 7 06/18/2025 EGFR 89.4 06/18/2025 Pain Score: 8 Transthoracic echocardiogram (TTE) complete with contrast, bubble, strain, and 3D PRN Result Date: 06/16/2025 Left Ventricle: Left ventricle size is normal. Normal wall thickness. Normal left ventricular systolic function. EF by visual approximation is 50%. EF by 2D Simpsons Biplane is 63%. See diagram for wall motion findings. Right Ventricle: Right ventricle size is normal. Normal systolic function. Aortic Valve: Mildly thickened cusps. Mildly calcified cusps. Cusp sclerosis. Trace regurgitation. No stenosis. Mitral Valve: Mildly thickened leaflets. Calcified leaflets. Annular calcification. Mild (1+) regurgitation. No stenosis noted. Tricuspid Valve: RVSP is 22 mmHg. Left Atrium: Left atrium size is normal. Right Atrium: Right atrium size is normal. Aorta: Normal sized sinuses of Valsalva and ascending aorta. No significant valvular abnormalities. 06/14/25 ECG 12-LEAD (Preliminary) This result has not been signed. Information might be incomplete. Impression Sinus rhythm LVH w/ repol abnormalities, possible ischemia Equipment Requests: Additional Equipment Requests [1] No family history on file.[facility]07-28-2025 NoteCare Management Progress Note Short Medical why still here: Plan for OR-CABG 06/19. Planned Discharge Disposition: Home Health Services, [facility] Care following for post-op needs. PT/OT evaluation pending post-op. 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 Barriers/Today we still Wait: Clinical stability, Administering IV medications, Procedure (comment) OR-CABG 06/19. Length of Stay (Days): 3 GMLOS: [address] [place], [place] [id number] NoteReceived referral and reviewed chart. Unable to discuss Phase II Cardiopulmonary Rehab Referral with Richie Armas at this time. Will follow to discuss program when appropriate. Patient will be contacted at home if discharged prior to discussion. [facility]07-25-2025 Note Attestation signed by Selvin Lynch MD at 06/15/2025 11:33 AM I, Dr. Lynch, saw and evaluated the patient on 06/15/2025. I personally obtained the figueroa and critical portions of the history and physical exam. I reviewed the chart and discussed the patient with the resident. I agree with the resident's medical decision making. Assessment/Plan: Patient without past cardiac history, admitted with NSTEMI to outside hospital. Cath showed complex 3v CAD. Transferred here for evaluation for possible CABG. Placed on nitro and heparin drips for symtpoms. Pt feeling well this morning, no further symptoms. CT surgery to see today to evaluate for possible CABG. [facility] CCU HISTORY & PHYSICAL Patient Name: Richie Armas : 1950 Date of Admission: 06/14/2025 4:44 PM Established night worker: NAVIN Subjective: Chief Complaint: Chest pain, reflux sensation History of Present Illness: Richie Armas is a 75 y.o. female with PMH CKD 2, Raynaud's, anxiety/depression, IBS/constipation, GERD, fibromyalgia, hypothyroidism, chronic low back pain S/P lumbar spinal surgery that presented to [facility] on 06/14/2025 from outside facility ([facility]). Patient reports worsening chest pain associated with her daily walks which started approximately 1 week ago. She endorses no chest pain at the beginning of the walk but at the end while she is walking uphill she will experience worsening chest pain and severe acid reflux like symptoms that worsen more with exertion. Initially she attributed this to her prior diagnosis of GERD and stopped drinking but when she experienced pain 06/14 that did not resolve with rest she presented to [facility] ED. LHC at [facility] demonstrated severe multivessel disease and she was transferred to [facility] for CABG evaluation. In [facility] HLU, hemodynamically stable. BP 150/100, HR 68, SpO2 96% RA, RR 16. Endorses 2/10 acid reflux-like pain extending into her throat that also radiates to her left jaw. The chest pain does not radiate anywhere else, denies SOB, palpitations, chest tightness/pressure, N/V, abdominal pain, diaphoresis, fevers/chills, dysuria, frequency, urgency. Does endorse chronic constipation, states she has not defecated in approximately 1 week. Repeat EKG demonstrates ST depressions in anterior lateral leads (V2-V5). Patient admitted to HLU for further evaluation management. Review of Systems: Review of Systems Constitutional: Positive for fatigue. Negative for chills, diaphoresis and fever. HENT: Negative for congestion, sinus pressure and sneezing. Respiratory: Negative for cough, chest tightness and shortness of breath. Cardiovascular: Positive for chest pain. Negative for palpitations and leg swelling. Gastrointestinal: Positive for constipation. Negative for abdominal pain, diarrhea, nausea and vomiting. Genitourinary: Negative for difficulty urinating, dysuria and hematuria. Musculoskeletal: Positive for back pain. Negative for arthralgias and myalgias. Neurological: Negative for dizziness, weakness, numbness and headaches. Psychiatric/Behavioral: Negative for agitation and behavioral problems. The patient is not nervous/anxious. Past Medical History: Medical History[1] Past Surgical History: Surgical History[2] Family History: Family History[3] Social History: Social History[4] Allergies: Allergies[5] Medications: No current outpatient medications Objective: Physical Examination: There were no vitals taken for this visit. No intake or output data in the 24 hours ending 06/14/25 1707 Physical Exam Constitutional: Appearance: Normal appearance. She is normal weight. HENT: Mouth/Throat: Mouth: Mucous membranes are moist. Pharynx: Oropharynx is clear. Eyes: Extraocular Movements: Extraocular movements intact. Conjunctiva/sclera: Conjunctivae normal. Pupils: Pupils are equal, round, and reactive to light. Cardiovascular: Rate and Rhythm: Normal rate and regular rhythm. Pulses: Normal pulses. Heart sounds: Normal heart sounds. Pulmonary: Effort: Pulmonary effort is normal. No respiratory distress. Breath sounds: Normal breath sounds. Abdominal: General: Abdomen is flat. There is no distension. Palpations: Abdomen is soft. Tenderness: There is no abdominal tenderness. Musculoskeletal: General: Normal range of motion. Right lower leg: No edema. Left lower leg: No edema. Skin: General: Skin is warm and dry. Capillary Refill: Capillary refill takes less than 2 seconds. Neurological: General: No focal deficit present. Mental Status: She is alert and oriented to person, place, and time. Mental status is at baseline. Psychiatric: Mood and Affect: Mood normal. Behavior: Behavior normal. Though (more content not included)...[facility]ly [facility]07-25-2025 History and physical note* Thierno Hopkins, DO - 06/14/2025 5:07 PM EDT Images from the original note were not included. [facility] CCU HISTORY & PHYSICAL Patient Name: Richie Armas : 1950 Date of Admission: 06/14/2025 4:44 PM Established night worker: NAVIN Subjective: Chief Complaint: Chest pain, reflux sensation History of Present Illness: Richie Armas is a 75 y.o. female with PMH CKD 2, Raynaud's, anxiety/depression, IBS/constipation,GERD, fibromyalgia, hypothyroidism, chronic low back pain S/P lumbar spinal surgery that presented to [facility] on 06/14/2025 from outside facility ([facility]). Patient reports worsening chest pain as sociated with her daily walks which started approximately 1 week ago. She endorses no chest pain atthe beginning of the walk but at the end while she is walking uphill she will experience worsening chest pain and severe acid reflux like symptoms that worsen more with exertion. Initially she attributed this to her prior diagnosis of GERD and stopped drinking but when she experienced pain 06/14 that did not resolve with rest she presented to [facility]. LHC at [facility] demonstrated severe multivessel disease and she was transferred to [facility] for CABG evaluation. In [facility] HLU, hemodynamically stable. BP 150/100, HR 68, SpO2 96% RA, RR 16. Endorses 2/10 acid reflux-like pain extending into her throat that also radiates to her left jaw. The chest pain does not radiate anywhere else, denies SOB, palpitations, chest tightness/pressure, N/V, abdominal pain, diaphoresis, fevers/chills, dysuria, frequency, urgency. Does endorse chronic constipation, states she hasnot defecated in approximately 1 week. Repeat EKG demonstrates ST depressions in anterior lateral leads (V2-V5). Patient admitted to HLU for further evaluation management. Review of Systems: Review of Systems Constitutional: Positive for fatigue. Negative for chills, diaphoresis and fever. HENT: Negative for congestion, sinus pressure and sneezing. Respiratory: Negative for cough, chest tightness and shortness of breath. Cardiovascular: Positive for chest pain. Negative for palpitations and leg swelling. Gastrointestinal: Positive for constipation. Negative for abdominal pain, diarrhea, nausea and vomiting. Genitourinary: Negative for difficulty urinating, dysuria and hematuria. Musculoskeletal: Positive for back pain. Negative for arthralgias and myalgias. Neurological: Negative for dizziness, weakness, numbness and headaches. Psychiatric/Behavioral: Negative for agitation and behavioral problems. The patient is not nervous/anxious. Past Medical History: Medical History[1] Past Surgical History: Surgical History[2] Family History: Family History[3] Social History: Social History[4] Allergies: Allergies[5] Medications: No current outpatient medications Objective: Physical Examination: There were no vitals taken for this visit. No intake or output data in the 24 hours ending 06/14/25 1707 Physical Exam Constitutional: Appearance: Normal appearance. She is normal weight. HENT: Mouth/Throat: Mouth: Mucous membranes are moist. Pharynx: Oropharynx is clear. Eyes: Extraocular Movements: Extraocular movements intact. Conjunctiva/sclera: Conjunctivae normal. Pupils: Pupils are equal, round, and reactive to light. Cardiovascular: Rate and Rhythm: Normal rate and regular rhythm. Pulses: Normal pulses. Heart sounds: Normal heart sounds. Pulmonary: Effort: Pulmonary effort is normal. No respiratory distress. Breath sounds: Normal breath sounds. Abdominal: General: Abdomen is flat. There is no distension. Palpations: Abdomen is soft. Tenderness: There is no abdominal tenderness. Musculoskeletal: General: Normal range of motion. Right lower leg: No edema. Left lower leg: No edema. Skin: General: Skin is warm and dry. Capillary Refill: Capillary refill takes less than 2 seconds. Neurological: General: No focal deficit present. Mental Status: She is alert and oriented to person, place, and time. Mental status is at baseline. Psychiatric: Mood and Affect: Mood normal. Behavior: Behavior normal. Thought Content: Thought content normal. Judgment: Judgment normal. Laboratory Tests: BMP: No results found for: NA, K, CL, CO2, BUN, CREATININE, GLUCOSE, CALCIUM, MG,PHOS CBC: No results found for: WBC, HGB, HCT, MCV, PLT Cardiac profile: No results found for: BNP, TROPONINI Coagulation: No results found for: PROTIME, INR, APTT Lipid panel: No results found for: CHOL, HDL, LDLCALC, TRIG Other: No results found for: HGBA1C, TSH Chest Imaging: CXR: CT Chest wo contrast: CTA Chest w and wo contrast: Cardiac Studies: Telemetry findings: NSR Last EK06/14/25 ECG 12-LEAD 06/14/2025 5:05 PM (Final) Impression Sinus rhythm Ventricular premature complex Minimal ST depression, anterolateral leads Electronically Signed On 06-14-2025 17:05:24 EDT by Thierno Germain Signed by: Thierno Germain MD on 06/14/2025 5:05 PM Last Echo: No results found for this or any previous visit. Last Cath: No results found for this or any previous visit. Last Stress Test: No results found for this or any previous visit. Last EP study: No results found for this or any previous visit. Assessment/Plan HF NYHA Class [] I [] II [] III [] IV []Unable to assess [] N/A Anterolateral NSTEMI Severe Multivessel CAD HLD - Presenting symptoms: Chest pain, reflux-like symptoms - Initial EKG findings: ST depressions in leads V3-V5, repeat EKG demonstrates ST depressions in V2-V5 - Loaded with heparin, ASA in [facility], did NOT receive P2Y12i - Emergent LHC (06/14/25): severe multivessel CAD (LAD 70%, subtotally occluded RCA, high-grade obtuse marginal vessel, EF 50%, anterolateral hypokinesis), transferred to [facility] for CABG Eval - Start daily ASA 81 mg - Continue coreg 3.125 BID - Cont. nitroglycerin gtt, titrate for chest pain - Cont. Heparin gtt for 48 hrs - Has prior attempted statin therapy, claims crippling myalgias, will not prescribe at this time - Consider starting LENI/ARB if evidence of LV dysfunction - Daily EKG - Formal TTE - Obtain lipid panel (Last LDL 166, A1c, TSH - Trend troponin, CK, CK-MB - Daily CBC, CMP, Mg, P; replace electrolytes as necessary - Cardiac diet Raynaud's - Cont. Nifedipine 30 mg XL daily Osteoporosis - HOLD home alendronate 70 mg daily Anxiety/Depression Fibromyalgia - Cont. Effexor 75 mg daily, amitriptyline 50 mg nightly Chronic Low Back Pain s/p Lumbar Spinal Surgery - Cont. Tizanidine 4 mg nightly - Hold home tramadol 50 mg IBS/Constipation - HOLD home lubiprostone - Miralax, Senokot-S daily, Milk of Magnesia Hypothyroidism - Cont. Synthroid 75 mcg daily GERD - Cont. PPI daily CKD2 - CTM - Goals of Care: Full Code - DVT Prophylaxis: Heparin - GI Prophylaxis: Protonix daily - Diet: Cardiac - BMI Classification: There is no height or weight on file to calculate BMI. - Disposition: Admit to CCU. [1] No past medical history on file. [2] No past surgical history on file. [3] No family history on file. [4] [5] Not on File Cosigned by Selvin Lynch MD at 06/15/2025 11:33 AM EDT Associated attestation - Selvin Lynch MD - 06/15/2025 11:33 AM EDT I, Dr. Lynch, saw and evaluated the patient on 06/15/2025. I personally obtained the figueroa and critical portions of the history and physical exam. I reviewed the chart and discussed the patient with the resident. I agree with the resident's medical decision making. Assessment/Plan: Patient without past cardiac history, admitted with NSTEMI to outside hospital. Cath showed [id number] CAD. Transferred here for evaluation for possible CABG. Placed on nitro and heparin drips for symtpoms. Pt feeling well this morning, no further symptoms. CT surgery to see today to evaluate for possible CABG. documented in this [facility]07-25-2025 [facility] Medical Records Department [address] [place] [address] Discharge Summary 06/14/25 1535 MR#: [id number] Acct: [id number] Name: RICHIE ARMAS Rep #: [id number] : 1950 75 From: Aftab Lucero DO PCP: Dr. Praveen Crum MD Status:DIS IN Location: ICU ICU03-1 Providers Date of Admission: 06/13/25 Date of Discharge: 06/14/25 Primary Care Physician: Dr. Praveen Crum MD Consultations 06/13/25 20:35 Consult: Cardiology Routine Consulting Provider: Cade Humphries Reason for Consult: Chest Pain, NSTEMI EMERGENT Consult: No MD Notified: Yes Date Notified: 06/13/25 Time Notified: 19:21 Method of Notification: ED Physician Initiated Reason For Visit: NSTEMI Diagnosis Discharge Diagnosis (1) NSTEMI, initial episode of care: Status: Acute Code(s): I21.4 - Non-ST elevation (NSTEMI) myocardial infarction (2) Hypercholesterolemia: Status: Acute Code(s): E78.00 - Pure hypercholesterolemia, unspecified Plan 1. Non-STEMI #2 triple-vessel coronary artery disease #3 hyperlipidemia #4 ischemic cardiomyopathy with intermittent ejection fraction #5 hypothyroidism Medications at Discharge Home Medications amitriptyline 50 mg tablet 50 mg PO DAILY 11/12/15 alendronate 70 mg tablet 70 mg PO .weekly 01/25/25 levothyroxine 75 mcg tablet 75 mcg PO DAILY 01/25/25 nifedipine 30 mg tablet,extended release 30 mg PO DAILY 01/25/25 pantoprazole 20 mg tablet,delayed release 20 mg PO QDAY 01/25/25 tizanidine 4 mg tablet 4 mg PO QHS 01/25/25 tramadol 50 mg tablet 50 mg PO PRN 01/25/25 lubiprostone 24 mcg capsule 24 mcg PO BID 06/13/25 venlafaxine 37.5 mg capsule,extended release 24 hr 37.5 mg PO DAILY depression 06/13/25 Hospital Course Operations None Procedures 2-D Echocardiogram and Cardiac catheterization Summary of Care Provided Minutes Spent on Discharge: 31 Hospital Course: This 75-year-old white female was seen in the emergency room at [facility] with complaints of chest discomfort that she described as pressure, this appeared to be initiated by activity. Workup in the emergency room included lab which revealed 93 troponin, patient's chest x- ray was unremarkable, patient's EKG did not show any ischemic changes. Patient was admitted to [facility] ICU, placed on a heparin drip, she was seen in consultation by cardiology and underwent a cardiac catheterization on 06/14/2025, this cardiac catheterization showed triple- vessel disease and it was recommended the patient be transferred out to a tertiary facility for consideration of cardiac bypass. Echocardiogram showed an intermediate ejection fraction of 45%. On 06/14/2025, patient was seen and examined: On examination she appeared in good health and spirits, she does not appear to be in any distress. Vital signs as documented. Skin warm and dry and without overt rashes. Neck without JVD, thyroid appears normal, trachea is midline, neck is supple. Lungs clear, normal air movement was noted. Heart exam notable for regular rhythm, normal sounds and absence of murmurs, rubs or gallops. Abdomen unremarkable and without evidence of organomegaly, masses, or abdominal aortic enlargement, bowel sounds are present in all 4 quadrants, no abdominal tenderness was noted. Extremities nonedematous, no cyanosis was noted, no clubbing was noted. Neuro: Cranial nerves II through XII are grossly intact, no focal motor deficits were noted, sensation to light touch and pinprick is intact, motor exam 5/5 throughout. Psych: Patient is alert and oriented x3, she does not appear anxious or depressed, she does not appear agitated. Patient was transferred to a tertiary hospital for further care on 06/14/2025 (patient was transferred to [facility] in [facility]) Weight / BMI Weight Weight: 63 kg Body Mass Index (BMI) 24.5 ABG / Lab / Microbiology Data 06/14/25 01:06 06/14/25 01:06 Laboratory: Laboratory Results - last 24 hr 06/13/25 17:43: WBC 6.4, RBC 4.32, Hgb 13.6, Hct 41.6, MCV 96.3, MCH 31.5, MCHC 32.7, RDW Std Deviation 48.3 H, RDW Coeff of Sushant 13.5, Plt Count 264, MPV 10.6, Immature Gran % (Auto) 0.300, Neut % (Auto) 53.7, Lymph % (Auto) 36.0, [place] % (Auto) 8.9, Eos % (Auto) 0.6, Baso % (Auto) 0.5, Absolute Neuts (auto) 3.4, Absolute Lymphs (auto) 2.31, Nucleated RBC % 0, Sodium 136, Potassium 4.4, Chloride 99, Carbon Dioxide 26.9, Anion Gap 11, BUN 23 H, Creatinine 0.71, Estim Creat Clear Calc 51.04, Est GFR (MDRD) Non-Af 89, BUN/Creatinine Ratio 32.4 H, Glucose 112 H, Calcium 9.4, Magnesium 2.0, Troponin T High Sens 93 H* 06/13/25 19:10: PT 15.2 H, INR 1.2, APTT 27.1 06/13/25 19:30: WBC 5.7, RBC 4.05 L, Hgb 12.7, Hct 39.1, MCV 96.5, MCH 31.4, MCHC 32.5, RDW Std Deviation 48.6 H, RDW Coeff of Sushant 13.5, Plt Count 241, MPV 10.4, Immature Gran (more content not included)...[facility]07-25-2025 Consult note Author Edil Hong [facility] Note Date/Time June 14, 2025 12:3 7pm [facility] Medical Records Department [address] [place] [address] Consultation - Cardiology 06/14/25 0741 MR#: [id number] Acct: [id number] Name: RICHIE ARMAS Rep #:[id number] : 1950 75 From: Edil Hong MD PCP: Dr. Praveen Crum MD Status:ADM IN Location: ICU ICU03-1 Assessment & Plan Assessment/Plan (1) NSTEMI, initial episode of care: PLAN: Patient presents with chest discomfort and a non-ST elevation myocardial infarction and typical pattern. At this point patient has been started on aspirin heparin intravenous nitroglycerin and have discussed with her with the risk benefits alternatives the plan is to undergo a left heart catheterization. She agrees to the above. (2) Hypercholesterolemia: PLAN: Depending on the results of the heart catheterization further recommendations will be made. PLAN: Plan Addendum: Cardiac catheterization done demonstrated triple-vessel disease with a subtotally occluded right coronary artery, along LAD 70% stenosis, and a high-grade obtuse marginal vessel. Ejection fraction was borderline at 50% with anterolateral hypokinesis. Would recommend transfer to a tertiary care facilityfor coronary bypass surgery HPI Consult Data Date of Consult: 06/14/25 HPI Narrative HPI Narrative: RICHIE ARMAS, is a 75 F who presents to the emergency room with exertional chest discomfort. She does have a history of hyperlipidemia and says that she takes daily walks and over the last few weeks she has noticed that she develops chest discomfort which radiates to her jaw when she exercises. It goes away when she rest. She has had no dizziness or diaphoresis no near-syncope or syncope she did present to the emergency room and was noted to be in sinus rhythm with a mildly elevated blood pressure but cardiac enzymes were noted to be abnormal and she was admitted to the intensive care unit for cardiology consultation. She is currently pain-free. [facility] Medical History Chronic idiopathic constipation CKD (chronic kidney disease), stage II GERD (gastroesophageal reflux disease) IBS (irritable bowel syndrome) HTN (hypertension) Raynaud disease Fibromyalgia Cataract High cholesterol Hypothyroidism Home Medications ?Medication ?Instructions ?Recorded ?Last Taken ?Type amitriptyline 50 mg tablet 50 mg PO DAILY 11/12/15 History alendronate 70 mg tablet 70 mg PO .weekly 01/25/25 History levothyroxine 75 mcg tablet 75 mcg PO DAILY 01/25/25 0 06/13/25 History nifedipine 30 mg tablet,extended 30 mg PO DAILY 06/13/25 History release pantoprazole 20 mg tablet,delayed 20 mg PO QDAY 06/13/25 History release tizanidine 4 mg tablet 4 mg PO QHS 01/25/25 5 History tramadol 50 mg tablet 50 mg PO PRN 01/25/25 Unknow n History lubiprostone 24 mcg capsule 24 mcg PO BID 06/13/25 History venlafaxine 37.5 mg 37.5 mg PO DAILY depression 06/13/25 Unknown History capsule,extended release 24 hr Allergy/AdvReac Type Severity Reaction Status Date / Time cyclobenzaprine HCl (From AdvReac Other Verified 06/13/25 17:31 Flexeril) promethazine (From Phenergan) AdvReac Other Verified 06/13/25 17:31 [id number] Reductase AdvReac Pain in Verified 06/13/25 17:31 Inhibitor joints Family History Father Heart disease CAD (coronary artery disease) Hypertension Myocardial infarction HLD (hyperlipidemia) Mother Hypertension Surgical History Previous back surgery H/O wrist surgery History of ankle surgery H/O shoulder surgery Social History household members: spouse Smoking Status: Never smoker alcohol intake: current alcohol intake frequency: holidays/special occasions only substance use type: does not use ROS Constitutional Constitutional: Denies fever(s) or weight loss Eyes Eyes: Reports systems reviewed and no addt'l complaints, except as documented ENT HEENT: Reports systems reviewed and no addt'l complaints, except as documented Cardiovascular Cardiovascular: Reports chest pain with activity and dyspnea on exertion; Denieschest pain at rest, dyspnea at rest, edema, palpitations or paroxysmal nocturnaldyspnea Respiratory/Chest Respiratory/Chest: Denies dyspnea on exertion, productive cough, shortness of breath at rest or shortness of breath with exertion Gastrointestinal Gastrointestinal: Denies change in bowel habits, nausea, vomiting or weight changes Genitourinary Genitourinary: Denies difficulty urinating Musculoskeletal Musculoskeletal: Denies joint stiffness or muscle weakness Integumentary Integumentary: Denies lesions Neurologic Neurologic: Denies dizziness or syncope Psychiatric Psychiatric: Denies anxiety Endocrine Endocrinology: Denies excessive sweating or fatigue Hematologic/Lymphatic Hematologic/Lymphatic: Denies anemia Allergic/Immunologic Allergic/Immunologic: Denies seasonal rhinorrhea Physical Exam Const alert, oriented x3 and no apparent distress General Appearance: cooperative HEENT hearing grossly normal bilaterally Head and Scalp: atraumatic Eyes EOMs intact bilaterally Neck General: normal visual inspection Chest inspection of chest normal and palpation of chest normal Resp normal respiratory effort Auscultation: clear to auscultation bilaterally Cardio regular rate, regular rhythm, S1 normal heart sound and S2 normal heart sound Jugular Venous Distention: JVD GI normal to inspection, nondistended, normoactive bowel sounds Extremity normal capillary refill and no pedal edema Peripheral Pulses: Yes pulses 2+ throughout and femoral pulses present Skin no rashes or lesions noted Neuro oriented x3 and CN's II-XII intact bilaterally Psych Appearance: grossly normal and appropriate Risk Stratification Risk Stratification Applicable: Yes Age >/= 65: Yes >/= 3 CAD Risk Factors (HTN, HLD, DM, family hx of CAD, or current smoker): Yes Aspirin Use in the Past 7 Days: No Severe Angina (>/= episodes in 24 hours): No EKG ST Changes >/= 0.5mm: No Positive Cardiac Marker: Yes STEFFEN Risk Stratification Score: 3 STEFFEN % Risk: 13% Risk Objective Data Vital Signs: Vital Signs Temp Pulse Resp BP Pulse Ox O2 Del Method O2 Flow Rate 97.6 F L 56 L 16 112/68 98 Nasal Cannula 2 06/13/25 20:45 06/14/25 06:09 06/14/25 06:09 06/14/25 06:09 06/14/25 06:09 06/14/25 06:09 06/14/25 06:09 Oxygen Flow Rate (L/min) 2 Oxygen Delivery Method Nasal Cannula Weight: 138 lb 14.259 oz Body Mass Index (BMI) 24.5 Intake & Output: Intake and Output for Last 24 Hours 06/12/25 06/13/25 06/14/25 23:59 23:59 23:59 Intake Total 1.65 / 1.65 112.77 / 112.77 Output Total 400 / 400 600 / 600 Balance -398.35 / -398.35 -487.23 / -487.23 Lab / Micro Data 06/14/25 01:06 06/14/25 01:06 Labs: Laboratory Results - last 24 hr 06/13/25 17:43: WBC 6.4, RBC 4.32, Hgb 13.6, Hct 41.6, MCV 96.3, MCH 31.5, MCHC 32.7, RDW Std Deviation 48.3 H, RDW Coeff of Sushant 13.5, Plt Count 264, MPV 10.6, Immature Gran % (Auto) 0.300, Neut % (Auto) 53.7, Lymph % (Auto) 36.0, [place] % (Auto) 8.9, Eos % (Auto) 0.6, Baso % (Auto) 0.5, Absolute Neuts (auto) 3.4, Absolute Lymphs (auto) 2.31, Nucleated RBC % 0, Sodium 136, Potassium 4.4, Chloride 99, Carbon Dioxide 26.9, Anion Gap 11, BUN 23 H, Creatinine 0.71, EstimCreat Clear Calc 51.04, Est GFR (MDRD) Non-Af 89, BUN/Creatinine Ratio 32.4 H, Glucose 112 H, Calcium 9.4, Magnesium 2.0, Troponin T High Sens 93 H* 06/13/25 19:10: PT 15.2 H, INR 1.2, APTT 27.1 06/13/25 19:30: WBC 5.7, RBC 4.05 L, Hgb 12.7, Hct 39.1, MCV 96.5, MCH 31.4, MCHC 32.5, RDW Std Deviation 48.6 H, RDW Coeff of Sushant 13.5, Plt Count 241, MPV 10.4, Immature Gran % (Auto) 0.200, Neut % (Auto) 55.8, Lymph % (Auto) 34.0, [place] % (Auto) 9.0, Eos % (Auto) 0.5, Baso % (Auto) 0.5, Absolute Neuts (auto) 3.2, Absolute Lymphs (auto) 1.92, Nucleated RBC % 0 06/13/25 19:57: Troponin T Hi Sens 2 Hr 88 H* 06/14/25 01:06: WBC 5.4, RBC 3.80 L, Hgb 12.1, Hct 36.1 L, MCV 95.0, MCH 31.8, MCHC 33.5, RDW Std Deviation 46.9 H, RDW Coeff of Sushant 13.3, Plt Count 220, MPV 10.5, Immature Gran % (Auto) 0.400, Neut % (Auto) 44.3 L, Lymph % (Auto) 45.0 H,[place] % (Auto) 8.7, Eos % (Auto) 0.9, Baso % (Auto) 0.7, Absolute Neuts (auto) 2.4, Absolute Lymphs (auto) 2.43, Nucleated RBC % 0, APTT 111.8 H*, Sodium 137, Potassium 3.9, Chloride 103, Carbon Dioxide 23.9, Anion Gap 11, BUN 19, Creatinine 0.56 L, Estim Creat Clear Calc 51.04, Est GFR (MDRD) Non-Af 96, BUN/Creatinine Ratio 34.4 H, Glucose 96, Calcium 8.4, Total Bilirubin 0.24, AST 28, ALT 6, Alkaline Phosphatase 46, Troponin T Hi Sens 4Hr 114 H*, Total Protein5.9, Albumin 3.7, Globulin 2.2, Albumin/Globulin Ratio 1.7, Triglycerides 89, Cholesterol 280 H, LDL Cholesterol, Calc 166, VLDL Cholesterol 18, HDL Cholesterol 96, Cholesterol/HDL Ratio 2.92 Cardiology Labs/Tests 06/13/25 17:43: WBC 6.4, RBC 4.32, Hgb 13.6, Hct 41.6, MCV 96.3, MCH 31.5, MCHC 32.7, Plt Count 264, MPV 10.6, Immature Gran % (Auto) 0.300, Neut % (Auto) 53.7,Lymph % (Auto) 36.0, [place] % (Auto) 8.9, Eos % (Auto) 0.6, Baso % (Auto) 0.5, Absolute Neuts (auto) 3.4, Nucleated RBC % 0, Sodium 136, Potassium 4.4, Chloride 99, Carbon Dioxide 26.9, Anion Gap 11, BUN 23 H, Creatinine 0.71, Est GFR (MDRD) Non-Af 89, BUN/Creatinine Ratio 32.4 H, Glucose 112 H, Calcium 9.4, Magnesium 2.0 06/13/25 19:10: PT 15.2 H, INR 1.2, APTT 27.1 06/13/25 19:30: WBC 5.7, RBC 4.05 L, Hgb 12.7, Hct 39.1, MCV 96.5, MCH 31.4, MCHC 32.5, Plt Count 241, MPV 10.4, Immature Gran % (Auto) 0.200, Neut % (Auto) 55.8, Lymph % (Auto) 34.0, [place] % (Auto) 9.0, Eos % (Auto) 0.5, Baso % (Auto) 0.5, Absolute Neuts (auto) 3.2, Nucleated RBC % 0 06/14/25 01:06: WBC 5.4, RBC 3.80 L, Hgb 12.1, Hct 36.1 L, MCV 95.0, MCH 31.8, MCHC 33.5, Plt Count 220, MPV 10.5, Immature Gran % (Auto) 0.400, Neut % (Auto) 44.3 L, Lymph % (Auto) 45.0 H, [place] % (Auto) 8.7, Eos % (Auto) 0.9, Baso % (Auto) 0.7, Absolute Neuts (auto) 2.4, Nucleated RBC % 0, APTT 111.8 H*, Sodium 137, Potassium 3.9, Chloride 103, Carbon Dioxide 23.9, Anion Gap 11, BUN 19, Creatinine 0.56 L, Est GFR (MDRD) Non-Af 96, BUN/Creatinine Ratio 34.4 H, Eyddtrf30, Calcium 8.4, Total Bilirubin 0.24, Triglycerides 89, Cholesterol 280 H, VLDLCholesterol 18, HDL Cholesterol 96, Cholesterol/HDL Ratio 2.92 Rhythm: EKG: ECHO: Stress Test: Cardiac Cath: PCI: CT Surgery: Holter monitor: EPS: PPM: CXR: Chest CT Scan: Radiography Diagnostic Testing: Radiology Impression Chest X-Ray 06/13/25 17:48 IMPRESSION: No focal consolidations. Reading Location: [id number] 06/14/25 1237 <Electronically signed by Edil Hong MD> Cosigner Signature (if applicable): CC: Dr. Praveen Crum MD~ Signed [facility] Work Phone: [phone] 732-723707-25-2025 Hospital Discharge instructionsAdditional Instructions Date [facility]: [facility] Phone: [phone] 387-664607-25-2025 Consult note [facility] Medical Records Department [address] [place] [address] Consultation - Cardiology 06/14/25740 MR#: [id number] Acct: [id number] Name: RICHIE ARMAS Rep #:[id number] : 1950 75 From: Edil Hong MD PCP: Dr. Praveen Crum MD Status:ADM IN Location: ICU ICU03-1 Assessment & Plan Assessment/Plan (1) NSTEMI, initial episode of care: PLAN: Patient presents with chest discomfort and a non-ST elevation myocardial infarction and typical pattern. At this point patient has been started on aspirin heparin intravenous nitroglycerin and have discussed with her with the risk benefits alternatives the plan is to undergo a left heart catheterization. She agrees to the above. (2) Hypercholesterolemia: PLAN: Depending on the results of the heart catheterization further recommendations will be made. PLAN: Plan Addendum: Cardiac catheterization done demonstrated triple-vessel disease with a subtotally occluded right coronary artery, along LAD 70% stenosis, and a high- grade obtuse marginal vessel. Ejection fraction was borderline at 50% with anterolateral hypokinesis. Would recommend transfer to a tertiary care facil ityfor coronary bypass surgery HPI Consult Data Date of Consult: 06/14/25 HPI Narrative HPI Narrative: RICHIE ARMAS, is a 75 F who presents to the emergency room with exertional chest discomfort. She does have a history of hyperlipidemia and says that she takes daily walks and over the last few weeks she has noticed that she develops chest discomfort which radiates to her jaw when she exercises. It goes away when she rest. She has had no dizziness or diaphoresis no near-syncope or syncope she did present to the emergency room and was noted to be in sinus rhythm with a mildly elevated blood pressure but cardiac enzymes were noted to be abnormal and she was admitted to the intensive care unit for cardiology consultation. She is currently pain-free. [facility] Medical History Chronic idiopathic constipation CKD (chronic kidney disease), stage II GERD (gastroesophageal reflux disease) IBS (irritable bowel syndrome) HTN (hypertension) Raynaud disease Fibromyalgia Cataract High cholesterol Hypothyroidism Home Medications ?Medication ?Instructions ?Recorded ?Last Taken ?Type amitriptyline 50 mg tablet 50 mg PO DAILY 11/12/15 History alendronate 70 mg tablet 70 mg PO .weekly 01/25/25 History levothyroxine 75 mcg tablet 75 mcg PO DAILY 01/25/25 0 06/13/25 History nifedipine 30 mg tablet,extended 30 mg PO DAILY 06/13/25 History release pantoprazole 20 mg tablet,delayed 20 mg PO QDAY 06/13/25 History release tizanidine 4 mg tablet 4 mg PO QHS 01/25/25 5 History tramadol 50 mg tablet 50 mg PO PRN 01/25/25 Unknow n History lubiprostone 24 mcg capsule 24 mcg PO BID 06/13/25 History venlafaxine 37.5 mg 37.5 mg PO DAILY depression 06/13/25 Unknown History capsule,extended release 24 hr Allergy/AdvReac Type Severity Reaction Status Date / Time cyclobenzaprine HCl (From AdvReac Other Verified 06/13/25 17:31 Flexeril) promethazine (From Phenergan) AdvReac Other Verified 06/13/25 17:31 Dgixdcc-XBY-LvC Reductase AdvReac Pain in Verified 06/13/25 17:31 Inhibitor joints Family History Father Heart disease CAD (coronary artery disease) Hypertension Myocardial infarction HLD (hyperlipidemia) Mother Hypertension Surgical History Previous back surgery H/O wrist surgery History of ankle surgery H/O shoulder surgery Social History household members: spouse Smoking Status: Never smoker alcohol intake: current alcohol intake frequency: holidays/special occasions only substance use type: does not use ROS Constitutional Constitutional: Denies fever(s) or weight loss Eyes Eyes: Reports systems reviewed and no addt'l complaints, except as documented ENT HEENT: Reports systems reviewed and no addt'l complaints, except as documented Cardiovascular Cardiovascular: Reports chest pain with activity and dyspnea on exertion; Denieschest pain at rest,dyspnea at rest, edema, palpitations or paroxysmal nocturnaldyspnea Respiratory/Chest Respiratory/Chest: Denies dyspnea on exertion, productive cough, shortness of breath at rest or shortness of breath with exertion Gastrointestinal Gastrointestinal: Denies change in bowel habits, nausea, vomiting or weight changes Genitourinary Genitourinary: Denies difficulty urinating Musculoskeletal Musculoskeletal: Denies joint stiffness or muscle weakness Integumentary Integumentary: Denies lesions Neurologic Neurologic: Denies dizziness or syncope Psychiatric Psychiatric: Denies anxiety Endocrine Endocrinology: Denies excessive sweating or fatigue Hematologic/Lymphatic Hematologic/Lymphatic: Denies anemia Allergic/Immunologic Allergic/Immunologic: Denies seasonal rhinorrhea Physical Exam Const alert, oriented x3 and no apparent distress General Appearance: cooperative HEENT hearing grossly normal bilaterally Head and Scalp: atraumatic Eyes EOMs intact bilaterally Neck General: normal visual inspection Chest inspection of chest normal and palpation of chest normal Resp normal respiratory effort Auscultation: clear to auscultation bilaterally Cardio regular rate, regular rhythm, S1 normal heart sound and S2 normal heart sound Jugular Venous Distention: JVD GI normal to inspection, nondistended, normoactive bowel sounds Extremity normal capillary refill and no pedal edema Peripheral Pulses: Yes pulses 2+ throughout and femoral pulses present Skin no rashes or lesions noted Neuro oriented x3 and CN's II-XII intact bilaterally Psych Appearance: grossly normal and appropriate Risk Stratification Risk Stratification Applicable: Yes Age >/= 65: Yes >/= 3 CAD Risk Factors (HTN, HLD, DM, family hx of CAD, or current smoker): Yes Aspirin Use in the Past 7 Days: No Severe Angina (>/= episodes in 24 hours): No EKG ST Changes >/= 0.5mm: No Positive Cardiac Marker: Yes STEFFEN Risk Stratification Score: 3 STEFFEN % Risk: 13% Risk Objective Data Vital Signs: Vital Signs Temp Pulse Resp BP Pulse Ox O2 Del Method O2 Flow Rate 97.6 F L 56 L 16 112/68 98 Nasal Cannula 2 06/13/25 20:45 06/14/25 06:09 06/14/25 06:09 06/14/25 06:09 06/14/25 06:09 06/14/25 06:09 06/14/25 06:09 Oxygen Flow Rate (L/min) 2 Oxygen Delivery Method Nasal Cannula Weight: 138 lb 14.259 oz Body Mass Index (BMI) 24.5 Intake & Output: Intake and Output for Last 24 Hours 06/12/25 06/13/25 06/14/25 23:59 23:59 23:59 Intake Total 1.65 / 1.65 112.77 / 112.77 Output Total 400 / 400 600 / 600 Balance -398.35 / -398.35 -487.23 / -487.23 Lab / Micro Data 06/14/25 01:06 06/14/25 01:06 Labs: Laboratory Results - last 24 hr 06/13/25 17:43: WBC 6.4, RBC 4.32, Hgb 13.6, Hct 41.6, MCV 96.3, MCH 31.5, MCHC 32.7, RDW Std Deviation 48.3 H, RDW Coeff of Sushant 13.5, Plt Count 264, MPV 10.6, Immature Gran % (Auto) 0.300, Neut % (Auto) 53.7, Lymph % (Auto) 36.0, [place] % (Auto) 8.9, Eos % (Auto) 0.6, Baso % (Auto) 0.5, Absolute Neuts (auto) 3.4, Absolute Lymphs (auto) 2.31, Nucleated RBC % 0, Sodium 136, Potassium 4.4, Chloride 99, Carbon Dioxide 26.9, Anion Gap 11, BUN 23 H, Creatinine 0.71, EstimCreat Clear Calc 51.04, Est GFR (MDRD) Non-Af 89, BUN/Creatinine Ratio 32.4 H, Glucose 112 H, Calcium 9.4, Magnesium 2.0, TroponinT High Sens 93 H* 06/13/25 19:10: PT 15.2 H, INR 1.2, APTT 27.1 06/13/25 19:30: WBC 5.7, RBC 4.05 L, Hgb 12.7, Hct 39.1, MCV 96.5, MCH 31.4, MCHC 32.5, RDW Std Deviation 48.6 H, RDW Coeff of Sushant 13.5, Plt Count 241, MPV 10.4, Immature Gran % (Auto) 0.200, Neut % (Auto) 55.8, Lymph % (Auto) 34.0, [place] % (Auto) 9.0, Eos % (Auto) 0.5, Baso % (Auto) 0.5, Absolute Neuts (auto) 3.2, Absolute Lymphs (auto) 1.92, Nucleated RBC % 0 06/13/25 19:57: Troponin T Hi Sens 2 Hr 88 H* 06/14/25 01:06: WBC 5.4, RBC 3.80 L, Hgb 12.1, Hct 36.1 L, MCV 95.0, MCH 31.8, MCHC 33.5, RDW Std Deviation 46.9 H, RDW Coeff of Sushant 13.3, Plt Count 220, MPV 10.5, Immature Gran % (Auto) 0.400, Neut % (Auto) 44.3 L, Lymph % (Auto) 45.0 H,[place] % (Auto) 8.7, Eos % (Auto) 0.9, Baso % (Auto) 0.7, Absolute Neuts (auto) 2.4, Absolute Lymphs (auto) 2.43, Nucleated RBC % 0, APTT 111.8 H*, Sodium 137, Potassium 3.9, Chloride 103, Carbon Dioxide 23.9, Anion Gap 11, BUN 19, Creatinine 0.56 L, Estim Creat Clear Calc 51.04, Est GFR (MDRD) Non-Af 96, BUN/Creatinine Ratio 34.4 H, Glucose 96, Calcium 8.4, Total Bilirubin 0.24, AST 28, ALT 6, Alkaline Phosphatase 46, Troponin T Hi Sens 4Hr 114 H*, Total Prot ein5.9, Albumin 3.7, Globulin 2.2, Albumin/Globulin Ratio 1.7, Triglycerides 89, Cholesterol 280 H,LDL Cholesterol, Calc 166, VLDL Cholesterol 18, HDL Cholesterol 96, Cholesterol/HDL Ratio 2.92 Cardiology Labs/Tests 06/13/25 17:43: WBC 6.4, RBC 4.32, Hgb 13.6, Hct 41.6, MCV 96.3, MCH 31.5, MCHC 32.7, Plt Count 264, MPV 10.6, Immature Gran % (Auto) 0.300, Neut % (Auto) 53.7,Lymph % (Auto) 36.0, [place] % (Auto) 8.9,Eos % (Auto) 0.6, Baso % (Auto) 0.5, Absolute Neuts (auto) 3.4, Nucleated RBC % 0, Sodium 136, Potassium 4.4, Chloride 99, Carbon Dioxide 26.9, Anion Gap 11, BUN 23 H, Creatinine 0.71, Est GFR (MDRD)Non-Af 89, BUN/Creatinine Ratio 32.4 H, Glucose 112 H, Calcium 9.4, Magnesium 2.0 06/13/25 19:10: PT 15.2 H, INR 1.2, APTT 27.1 06/13/25 19:30: WBC 5.7, RBC 4.05 L, Hgb 12.7, Hct 39.1, MCV 96.5, MCH 31.4, MCHC 32.5, Plt Count 241, MPV 10.4, Immature Gran % (Auto) 0.200, Neut % (Auto) 55.8, Lymph % (Auto) 34.0, [place] % (Auto) 9.0, Eos % (Auto) 0.5, Baso % (Auto) 0.5, Absolute Neuts (auto) 3.2, Nucleated RBC % 0 06/14/25 01:06: WBC 5.4, RBC 3.80 L, Hgb 12.1, Hct 36.1 L, MCV 95.0, MCH 31.8, MCHC 33.5, Plt [id number], MPV 10.5, Immature Gran % (Auto) 0.400, Neut % (Auto) 44.3 L, Lymph % (Auto) 45.0 H, [place] % (Auto) 8.7, Eos % (Auto) 0.9, Baso % (Auto) 0.7, Absolute Neuts (auto) 2.4, Nucleated RBC % 0, APTT 111.8 H*, Sodium 137, Potassium 3.9, Chloride 103, Carbon Dioxide 23.9, Anion Gap 11, BUN 19, Creatinine 0.56 L, Est GFR (MDRD) Non-Af 96, BUN/Creatinine Ratio 34.4 H, [id number], Calcium 8.4, Total Bilirubin 0.24, Triglycerides 89, Cholesterol 280 H, VLDLCholesterol 18, HDL Cholesterol 96, Cholesterol/HDL Ratio 2.92 Rhythm: EKG: ECHO: Stress Test: Cardiac Cath: PCI: CT Surgery: Holter monitor: EPS: PPM: CXR: Chest CT Scan: Radiography Diagnostic Testing: Radiology Impression Chest X-Ray 06/13/25 17:48 IMPRESSION: No focal consolidations. Reading Location: [facility] 06/14/25 123 Cosigner Signature (if applicable): CC: Dr. Praveen Crum MD~ Signed [facility]07-24-2025 Discharge summary Author Efren Moss [facility] Note Date/Time June 13, 2025 8:21 pm [facility] Medical Records Department [address] [place] [address] Emergency Department Summary 06/13/25 MR#: [id number] Acct: [id number] Name: RICHIE ARMAS Rep #:[id number] : 1950 75 From: Efren Moss MD PCP: Dr. Praveen Crum MD Status:ADM IN Location: ICU ICU03-1 HPI History of Present Illness Chief Complaint: Chest Other Detail of Chief Complaint: Exertional chest pain that started 2 weeks ago Informant: patient Onset/Context/Timing Onset: Today, Yesterday and Weeks Activity at onset: sudden and activity on onset (Walking up an incline. Yesterday she did not walk up an incline nor did she walk up an incline today) Timing: Intermittent Quality: Positive for Pressure Location: Substernal Current Severity: Mild Maximum Severity: Moderate Worsened By: Exertion; Not Worsened By Movement of Arm, Movement of Torso, Eating, Palpation, Breathing or Coughing Relieved By: Rest Associated Symptoms: Positive for Dyspnea; Negative for Nausea, Vomiting, Diaphoresis, Cough, Fever, Lightheadedness, Acid Reflux or Palpitations Narrative Narrative: Patient is a 75-year-old woman. She has history of hypercholesterolemia and hypothyroidism. She also has a history of GERD. Approximately 2 weeks ago while walking up an incline she developed chest pressure. The chest pressure resolved with rest. Yesterday was the first time she got the chest pressure when she was walking on a level plane. She normally walks 3 miles in 1 hour. The episode that occurred yesterday was after half mile. She had a similar episode today. She denied diaphoresis. She states she was sweating because it is hot. She still has some mild discomfort in her chest. She does have a history of GERD. This is different than her GERD. She denies radiation to her jaw or shoulders. It does radiate to her neck anteriorly. She denies black or maroon-colored stool. This episode of pressure started at approximately 1545. Prior Similar Symptoms: No Recent Illness/Hospitalization: No CVD Risk Factors: Positive for Hypercholesterolemia; Negative for Hypertension, Diabetes, Family History 1' </=55 or Smoking PE Risk Factors: Negative for Recent Travel/Surgery, Recent Immobilization, Prior DVT or PE, Cancer or OCP + Smoking + >/=35 TAD Risk Factors: Positive for Hypertension; Negative for Marfan's Syndrome or Family History [facility] Medical History (Updated 06/13/25 @ 19:[address] Hui Morel MD) Chronic idiopathic constipation CKD (chronic kidney disease), stage II GERD (gastroesophageal reflux disease) IBS (irritable bowel syndrome) HTN (hypertension) Raynaud disease Fibromyalgia Cataract High cholesterol Hypothyroidism Home Medications ?Medication ?Instructions ?Recorded ?Last Taken ?Type amitriptyline 50 mg tablet 50 mg PO DAILY 11/12/15 History alendronate 70 mg tablet 70 mg PO .weekly 01/25/25 History levothyroxine 75 mcg tablet 75 mcg PO DAILY 01/25/25 0 06/13/25 History nifedipine 30 mg tablet,extended 30 mg PO DAILY 06/13/25 History release pantoprazole 20 mg tablet,delayed 20 mg PO QDAY 06/13/25 History release tizanidine 4 mg tablet 4 mg PO QHS 01/25/25 5 History tramadol 50 mg tablet 50 mg PO PRN 01/25/25 Unknow n History lubiprostone 24 mcg capsule 24 mcg PO BID 06/13/25 History venlafaxine 37.5 mg 37.5 mg PO DAILY depression 06/13/25 Unknown History capsule,extended release 24 hr Allergy/AdvReac Type Severity Reaction Status Date / Time cyclobenzaprine HCl (From AdvReac Other Verified 06/13/25 17:31 Flexeril) promethazine (From Phenergan) AdvReac Other Verified 06/13/25 17:31 Iljpabp-KNE-KpC Reductase AdvReac Pain in Verified 06/13/25 17:31 [...] use type: does not use ROS ROS ED Constitutional Constitutional ED: Denies chills, fever(s), subjective or sweats Eyes Eyes: Reports none; Denies blurry vision or change in vision Cardiovascular Cardiovascular: Reports as per HPI; Denies orthopnea, palpitations, paroxysmal nocturnal dyspnea or racing heartbeat Respiratory/Chest Respiratory/Chest: Reports dyspnea; Denies dyspnea on exertion, orthopnea or paroxysmal nocturnal dyspnea Gastrointestinal Gastrointestinal: Denies abdominal pain, nausea or vomiting Musculoskeletal Musculoskeletal: Denies back pain or neck pain Integumentary Denies rash Neurologic Neurologic: Denies headache(s) or paresthesias Psychiatric Psychiatric: Denies anxiety or depression Endocrine Endocrinology: Denies cold intolerance or heat intolerance Hematologic/Lymphatic Hematologic/Lymphatic: Denies easy bleeding or easy bruising EXAM Physical Exam Const Vital Signs: 06/13/25 17:30 06/13/25 17:43 06/13/25 [...] Pressure Mean Pulse Ox Oxygen Delivery Method Positive well nourished and well developed General Appearance ED: well developed and NAD HEENT Reports TM's clear Tympanic Membrane ED: Yes TM's clear Eyes PERRL and EOMs intact bilaterally General Eye ED: Negative for pale conjunctiva or scleral icterus Neck no lymphadenopathy, supple and no JVD Chest Wall inspection of chest normal and palpation of chest normal Resp normal respiratory effort and clear to auscultation bilaterally Cardio regular rate, regular rhythm, S1 normal heart sound, S2 normal heart sound and no murmurs GI normal to inspection, nondistended, normoactive bowel sounds, soft to palpation,non-tender and non-distended Back/Spine no CVA tenderness Extremity normal to inspection General Extremety ED: Negative for edema or pulses abnormal General Extremity: Negative for edema or pulses abnormal Neuro oriented x3 and CN's II-XII intact bilaterally Sensorium / Orientation: awake and alert Psych mental status grossly normal Skin no rashes or lesions noted and no wounds Heart Score History: Highly Suspicious ECG: Nonspecific Repolarization Age: >/= 65 years Risk Factors: 1 or 2 Risk Factors Troponin: >1 - <3 Normal Limit Score: 7 MDM MDM MDM Narrative Medical decision making narrative: Patient with classic exertional angina over the past 2 weeks that is now precipitated with less activity. Will rule out non-STEMI and talk with cardiology since in my opinion patient has a saumya score of 3 and needs a heart cath. Her EKG reveals changes from 2023. Lab Data Attestation: I reviewed the patient's lab results. Lab results narrative: CBC unremarkable. Basic metabolic panel is unremarkable. Glucose slightly elevated at 112. Troponin is elevated at 93. Since patient still having chest discomfort we will start nitroglycerin drip and anticoagulate with heparin. Case was discussed with Dr. Fontaine. He is in agreement. Plan is cardiac catheterization tomorrow. Labs: Laboratory Results - last 24 hr 06/13/25 17:43 WBC 6.4 RBC 4.32 Hgb 13.6 Hct 41.6 MCV 96.3 MCH 31.5 MCHC 32.7 RDW Std Deviation 48.3 H RDW Coeff of Sushant 13.5 Plt Count 264 MPV 10.6 Immature Gran % (Auto) 0.300 Neut % (Auto) 53.7 Lymph % (Auto) 36.0 [place] % (Auto) 8.9 Eos % (Auto) 0.6 Baso % (Auto) 0.5 Absolute Neuts (auto) 3.4 Absolute Lymphs (auto) 2.31 Nucleated RBC % 0 Sodium 136 Potassium 4.4 Chloride 99 Carbon Dioxide 26.9 Anion Gap 11 BUN 23 H Creatinine 0.71 Estim Creat Clear Calc 51.04 Est GFR (MDRD) Non-Af 89 BUN/Creatinine Ratio 32.4 H Glucose 112 H Calcium 9.4 Magnesium 2.0 Troponin T High Sens 93 H* Radiography Chest X-Ray - ED: 1 View, Read by ED Physician ([id number]), Normal, Heart, Lungs, Mediastinum, Bony Structures and No Acute Disease Diagnostic Testing: Clinical Impression(s) from Imaging Studies Chest X-Ray 06/13/25 17:48 IMPRESSION: No focal consolidations. Reading Location: [facility] EKG Initial EKG: Attestation: I personally reviewed and interpreted this EKG as follows: Interpretation: Sinus Rhythm (Rate is 77. [place] interval is under 60 ms cures duration 88 ms. QT duration 190 ms. [place] is normal. There is nonspecific changes noted and these are new since December 20, 2023) Management Discussion w/another healthcare provider: Hospitalist (Will speak with the nightphysician Dr. Hui Morel for admission for acute coronary syndrome/non- STEMI. Patient was admitted ICU since she is on nitro and heparin drip.) and Lath Hand(Spoke with night worker. Documentations in the MDM portion of the EMR.) Treatment and Re-Evaluation :: I was informed patient had no improvement with 3 sublingual nitro. Will treat her pressure with IV morphine. Critical Care Time Critical Care Time: Yes Critical care time (excluding procedures): 30-74 minutes (32), Including time spent: (History, physical, documentation, independent to potation of laboratory results and chest x-ray), Discussing w/Patient &/or Family/Director Of Vendor Management, Discussing w/Consultants (Cardiology and hospitalist), Arranging Admission or Transfer and - (Case management for arrangements to help drive home since he has dementia.) Discharge Plan Dx/Rx/DC Orders Clinical Impression: ACS (acute coronary syndrome), Elevated troponin, Exertional angina, Hypercholesterolemia Disposition Disposition: Acute Care Hospital [facility] Discharge Date/Time: 06/13/25 20:11 What to do if you have Problems For any increased pain, shortness of breath, bleeding, nausea or vomiting, chestpain, or any unexpected problems, contact your Primary Care Provider. Call [facility] ([phone]) or report to the closest Emergency Room. Call 911 if necessary. 06/13/252020 <Electronically signed by Efren Moss MD> Cosigner Signature (if applicable): CC: Dr. Praveen Crum MD ~ Signed [facility] Work Phone: 1(660) 201-835107-24-2025 History and physical note Author Hui Morel [facility] Note Date/Time June 13, 2025 7:50 pm [facility] Medical Records Department [address] [place] [address] H&P Exam - Hospitalist 06/13/251914 MR#: [id number] Acct: [id number] Name: RICHIE ARMAS Rep #:[id number] : 1950 75 From: Hui Morel MD PCP: Dr. Praveen Crum MD Status:ADM IN Location: ICU ICU03-1 HPI - General General Date of Admission: 06/13/25 Date of Service: 06/13/25 Chief Complaint: Chest pain HPI Narrative The patient is a 75 y/o F w/ PMHx: Raynaud disease, HTN, HLD, Hypothyroidism, Fibromyalgia, Chronic idiopathic constipation who presents to the [facility] ED on 06/13/25 with exertional chest pain [...] noted prior. ED physician discussed case with Locomotive Switch Operator. Inthe ED patient ministered full-strength aspirin therapy, [...] (From Phenergan) AdvReac Other Verified 06/13/25 17:31 Sdhqthx-CHA-OuM Reductase AdvReac Pain in Verified 06/13/25 17:31 [...] % (Auto) 53.7, Lymph % (Auto) 36.0, [place] % (Auto) 8.9, Eos % (Auto) 0.6, [...] 17:48 IMPRESSION: No focal consolidations. Reading Location: [facility] Assessment & Plan Assessment/Plan (1) NSTEMI, initial episode of care: PLAN: Plan The patient is a 75 y/o F w/ PMHx: Raynaud disease, HTN, HLD, Hypothyroidism, Fibromyalgia, Chronic idiopathic constipation who presents to the [facility] ED on 06/13/25 with exertional chest pain [...] 16 minutes. Charges/Coding Visit Charges Inpatient E&M: 07648 Init Hosp L3 Procedures Hospitalists Procedures: 13210 Advncd Care Plan 30 Min 06/13/251949 <Electronically signed by Hui Morel MD> Cosigner Signature (if applicable): CC: Dr. Hui Morel MD; Dr. Praveen Crum MD~ Signed [facility] Work Phone: 1(526) 413-718807-24-2025 Evaluation note* Diagnosis Onset Date Resolution Status Admit Date ACS (acute coronary syndrome) acute June 13, 2025 7:16pm Elevated troponin acute June 132024 7:16pm Exertional angina acute June 132024 7:16pm Hypercholesterolemia acute June 13, 2025 7:16pm NSTEMI, initial episode of care acut e June 13, 2025 7:16pm [facility] Work Phone: 1(362) 731-446007-24-2025 Discharge summary [facility] Medical Records Department [address] [place] [address] Emergency Department Summary 06/13/25 MR#: [id number] Acct: [id number] Name: RICHIE ARMAS Rep #:[id number] : 1950 75 From: Efren Moss MD PCP: Dr. Praveen Crum MD Status:ADM IN Location: ICU ICU03-1 HPI History of Present Illness Chief Complaint: Chest Other Detail of Chief Complaint: Exertional chest pain that started 2 weeks ago Informant: patient Onset/Context/Timing Onset: Today, Yesterday and Weeks Activity at onset: sudden and activity on onset (Walking up an incline. Yesterday she did not walk up an incline nor did she walk up an incline today) Timing: Intermittent Quality: Positive for Pressure Location: Substernal Current Severity: Mild Maximum Severity: Moderate Worsened By: Exertion; Not Worsened By Movement of Arm, Movement of Torso, Eating, Palpation, Breathing or Coughing Relieved By: Rest Associated Symptoms: Positive for Dyspnea; Negative for Nausea, Vomiting, Diaphoresis, Cough, Fever, Lightheadedness, Acid Reflux or Palpitations Narrative Narrative: Patient is a 75-year-old woman. She has history of hypercholesterolemia and hypothyroidism. She also has a history of GERD. Approximately 2 weeks ago while walking up an incline she developed chest pressure. The chest pressure resolved with rest. Yesterday was the first time she got the chest pressure when she was walking on a level plane. She normally walks 3 miles in 1 hour. The episode that occurred yesterday was after half mile. She had a similar episode today. She denied diaphoresis. She states she was sweating because it is hot. She still has some mild discomfort in her chest. She does have a history of GERD. This is differentthan her GERD. She denies radiation to her jaw or shoulders. It does radiate to her neck anteriorly. She denies black or maroon-colored stool. This episode of pressure started at approximately 1545. Prior Similar Symptoms: No Recent Illness/Hospitalization: No CVD Risk Factors: Positive for Hypercholesterolemia; Negative for Hypertension, Diabetes, Family History 1' PE Risk Factors: Negative for Recent Travel/Surgery, Recent Immobilization, Prior DVT or PE, Cancer or OCP + Smoking + >/=35 TAD Risk Factors: Positive for Hypertension; Negative for Marfan's Syndrome or Family History [facility] Medical History (Updated 06/13/25 @ 19:[address] Hui Morel MD) Chronic idiopathic constipation CKD (chronic kidney disease), stage II GERD (gastroesophageal reflux disease) IBS (irritable bowel syndrome) HTN (hypertension) Raynaud disease Fibromyalgia Cataract High cholesterol Hypothyroidism Home Medications ?Medication ?Instructions ?Recorded ?Last Taken ?Type amitriptyline 50 mg tablet 50 mg PO DAILY 11/12/15 History alendronate 70 mg tablet 70 mg PO .weekly 01/25/25 History levothyroxine 75 mcg tablet 75 mcg PO DAILY 01/25/25 0 06/13/25 History nifedipine 30 mg tablet,extended 30 mg PO DAILY 06/13/25 History release pantoprazole 20 mg tablet,delayed 20 mg PO QDAY 06/13/25 History release tizanidine 4 mg tablet 4 mg PO QHS 01/25/25 5 History tramadol 50 mg tablet 50 mg PO PRN 01/25/25 Unknow n History lubiprostone 24 mcg capsule 24 mcg PO BID 06/13/25 History venlafaxine 37.5 mg 37.5 mg PO DAILY depression 06/13/25 Unknown History capsule,extended release 24 hr Allergy/AdvReac Type Severity Reaction Status Date / Time cyclobenzaprine HCl (From AdvReac Other Verified 06/13/25 17:31 Flexeril) promethazine (From Phenergan) AdvReac Other Verified 06/13/25 17:31 [id number] Reductase AdvReac Pain in Verified 06/13/25 17:31 [...] use type: does not use ROS ROS ED Constitutional Constitutional ED: Denies chills, fever(s), subjective or sweats Eyes Eyes: Reports none; Denies blurry vision or change in vision Cardiovascular Cardiovascular: Reports as per HPI; Denies orthopnea, palpitations, paroxysmal nocturnal dyspnea orracing heartbeat Respiratory/Chest Respiratory/Chest: Reports dyspnea; Denies dyspnea on exertion, orthopnea or paroxysmal nocturnal dyspnea Gastrointestinal Gastrointestinal: Denies abdominal pain, nausea or vomiting Musculoskeletal Musculoskeletal: Denies back pain or neck pain Integumentary Denies rash Neurologic Neurologic: Denies headache(s) or paresthesias Psychiatric Psychiatric: Denies anxiety or depression Endocrine Endocrinology: Denies cold intolerance or heat intolerance Hematologic/Lymphatic Hematologic/Lymphatic: Denies easy bleeding or easy bruising EXAM Physical Exam Const Vital Signs: 06/13/25 17:30 06/13/25 17:43 06/13/25 [...] Pressure Mean Pulse Ox Oxygen Delivery Method Positive well nourished and well developed General Appearance ED: well developed and NAD HEENT Reports TM's clear Tympanic Membrane ED: Yes TM's clear Eyes PERRL and EOMs intact bilaterally General Eye ED: Negative for pale conjunctiva or scleral icterus Neck no lymphadenopathy, supple and no JVD Chest Wall inspection of chest normal and palpation of chest normal Resp normal respiratory effort and clear to auscultation bilaterally Cardio regular rate, regular rhythm, S1 normal heart sound, S2 normal heart sound and no murmurs GI normal to inspection, nondistended, normoactive bowel sounds, soft to palpation,non-tender and non-distended Back/Spine no CVA tenderness Extremity normal to inspection General Extremety ED: Negative for edema or pulses abnormal General Extremity: Negative for edema or pulses abnormal Neuro oriented x3 and CN's II-XII intact bilaterally Sensorium / Orientation: awake and alert Psych mental status grossly normal Skin no rashes or lesions noted and no wounds Heart Score History: Highly Suspicious ECG: Nonspecific Repolarization Age: >/= 65 years Risk Factors: 1 or 2 Risk Factors Troponin: >1 - <3 Normal Limit Score: 7 MDM MDM MDM Narrative Medical decision making narrative: Patient with classic exertional angina over the past 2 weeks that is now precipitated with less activity. Will rule out non-STEMI and talk with cardiology since in my opinion patient has a saumya score of 3 and needs a heart cath. Her EKG reveals changes from 2023. Lab Data Attestation: I reviewed the patient's lab results. Lab results narrative: CBC unremarkable. Basic metabolic panel is unremarkable. Glucose slightly elevated at 112. Troponinis elevated at 93. Since patient still having chest discomfort we will start nitroglycerin drip andanticoagulate with heparin. Case was discussed with Dr. Fontaine. He is in agreement. Plan is cardiac catheterization tomorrow. Labs: Laboratory Results - last 24 hr 06/13/25 17:43 WBC 6.4 RBC 4.32 Hgb 13.6 Hct 41.6 MCV 96.3 MCH 31.5 MCHC 32.7 RDW Std Deviation 48.3 H RDW Coeff of Sushant 13.5 Plt Count 264 MPV 10.6 Immature Gran % (Auto) 0.300 Neut % (Auto) 53.7 Lymph % (Auto) 36.0 [place] % (Auto) 8.9 Eos % (Auto) 0.6 Baso % (Auto) 0.5 Absolute Neuts (auto) 3.4 Absolute Lymphs (auto) 2.31 Nucleated RBC % 0 Sodium 136 Potassium 4.4 Chloride 99 Carbon Dioxide 26.9 Anion Gap 11 BUN 23 H Creatinine 0.71 Estim Creat Clear Calc 51.04 Est GFR (MDRD) Non-Af 89 BUN/Creatinine Ratio 32.4 H Glucose 112 H Calcium 9.4 Magnesium 2.0 Troponin T High Sens 93 H* Radiography Chest X-Ray - ED: 1 View, Read by ED Physician ([id number]), Normal, Heart, Lungs, Mediastinum, Bony Structures and No Acute Disease Diagnostic Testing: Clinical Impression(s) from Imaging Studies Chest X-Ray 06/13/25 17:48 IMPRESSION: No focal consolidations. Reading Location: [facility] EKG Initial EKG: Attestation: I personally reviewed and interpreted this EKG as follows: Interpretation: Sinus Rhythm (Rate is 77. [place] interval is under 60 ms cures duration 88 ms. QT duration 190 ms. [place] is normal. There is nonspecific changes noted and these are new since December 20, 2023) Management Discussion w/another healthcare provider: Hospitalist (Will speak with the isidrasician Dr. Hui Morel for admission for acute coronary syndrome/non- STEMI. Patient was admitted ICU since she is on nitro and heparin drip.) and Lath Hand(Spoke with night worker. Documentations in the MDM portionof the EMR.) Treatment and Re-Evaluation :: I was informed patient had no improvement with 3 sublingual nitro. Will treat her pressure with IV morphine. Critical Care Time Critical Care Time: Yes Critical care time (excluding procedures): 30-74 minutes (32), Including time spent: (History, physical, documentation, independent to potation of laboratory results and chest x-ray), Discussing w/Patient &/or Family/Director Of Vendor Management, Discussing w/Consultants (Cardiology and hospitalist), Arranging Admission or Transfer and - (Case management for arrangements to help drive home since he hasdementia.) Discharge Plan Dx/Rx/DC Orders Clinical Impression: ACS (acute coronary syndrome), Elevated troponin, Exertional angina, Hypercholesterolemia Disposition Disposition: Acute Care Hospital [facility] Discharge Date/Time: 06/13/25 20:11 What to do if you have Problems For any increased pain, shortness of breath, bleeding, nausea or vomiting, chestpain, or any unexpected problems, contact your Primary Care Provider. Call [employer] [facility] ([phone]) or report tothe closest Emergency Room. Call 911 if necessary. 06/13/252020 Cosigner Signature (if applicable): CC: Dr. Praveen Crum MD ~ Signed [facility]07-24-2025 History and physical note [facility] Medical Records Department [address] [place] [address] H&P Exam - Hospitalist 06/13/251914 MR#: [id number] Acct: [id number] Name: RICHIE ARMAS Rep #:[id number] : 1950 75 From: Hui Morel MD PCP: Dr. Praveen Crum MD Status:ADM IN Location: ICU ICU03-1 HPI - General General Date of Admission: 06/13/25 Date of Service: 06/13/25 Chief Complaint: Chest pain HPI Narrative The patient is a 75 y/o F w/ PMHx: Raynaud disease, HTN, HLD, Hypothyroidism, Fibromyalgia, Chronicidiopathic constipation who presents to the [facility] ED on 06/13/25 with exertional chest pain starting ~2 weeks prior primarily with activity prior however on day prior to presentation she had similar symptoms at rest also, noted to be intermittent, pressure like in sensation in the primarilythe anterior neck eventually transitioning into the chest specifically in the substernal region with minimallyassociated dyspnea per patient specific report and no [...] 23/0.71, GFR 89, glucose 112, troponin 93, CXRw/ no acute cardiopulmonary findings, EKG with SR with nonspecific ST-T changes new from prior 11/2023 EKG noted prior. ED physician discussed case with Locomotive Switch Operator. Inthe ED patient ministered full-strength aspirin therapy, heparin bolus and drip in addition to sublingual nitroglycerin eventually transition to a nitroglycerindrip as well as morphine 4 mg IV x 1. [facility] Medical History (Updated 06/13/25 @ 19:48 by [...] (From Phenergan) AdvReac Other Verified 06/13/25 17:31 [id number]-CED-SyI Reductase AdvReac Pain in Verified 06/13/25 17:31 [...] seated upright in the ED bed, mildly fatigued,notes chest discomfort is significantly improved, 3-4 out [...] grossly normal, moving all 4 extremities, no focaldeficits, strength mildly to moderately globally creased. Psychiatric: [...] % (Auto) 53.7, Lymph % (Auto) 36.0, [place] % (Auto) 8.9, Eos % (Auto) 0.6, Baso % (Auto) 0.5, Absolute Neuts (auto) 3.4, Absolute Lymphs (auto) 2.31, Nucleated RBC % 0, Sodium 136, Potassium 4.4, Chloride 99, Carbon Dioxide 26.9, Anion Gap 11, BUN 23 H, Creatinine 0.71, EstimCreat Clear Calc 51.04, Est GFR (MDRD) Non-Af 89, BUN/Creatinine Ratio 32.4 H, Glucose 112 H, Calcium 9.4, Troponin T High Sens 93H* Imaging Radiology Impression Chest X-Ray 06/13/25 17:48 IMPRESSION: No focal consolidations. Reading Location: [facility] Assessment & Plan Assessment/Plan (1) NSTEMI, initial episode of care: PLAN: Plan The patient is a 75 y/o F w/ PMHx: Raynaud disease, HTN, HLD, Hypothyroidism, Fibromyalgia, Chronicidiopathic constipation who presents to the [facility] ED on 06/13/25 with exertional chest pain starting ~2 weeks prior primarily with activity prior however on day prior to presentation she had similar symptoms at rest also, noted to be intermittent, pressure like in sensation in the primarilythe anterior neck eventually transitioning into the chest specifically in the substernal region with minimallyassociated dyspnea per patient specific report and no concurrent no nausea or emesis prompting eventual ED evaluation. #1. Chest Pain w/ Acute NSTEMI: EKG in ED w/ sinus rhythm with nonspecific ST- Tchanges new from previous EKG, CXR w/ no acute cardiopulmonary findings. Trop elevated, initial 93. Will admit to the ICU given usage of nitroglycerin drip ongoing, will continue cardiology consultation, maintain on a monitored bed, continue serial cardiac enzymes and EKGs. Obtain magnesium level. Will continueheparin drip. Continue medical management w/ daily baby asa, add low- dose BB with medicine discretion changes per cardiology [...] discussion with patient, will obtain AM FLP. Mayneed consider Zetia as an option depending on results and cardiology preference. #4. Hypothyroidism: Will continue patient levothyroxine regimen. #5. Raynaud's disease: Will continue patient nifedipine regimen. #6. Anxiety and depression: Will continue patient venlafaxine regimen. #7. GERD: Will continue patient on PPI. #8. Chronic Kidney Disease Stage II per GFR trend: Admission BUN/Cr 23/0.71, GFR 89, baseline renalfunction primarily 0.7-0.8, repeat BMP in AM. #9. [...] 16 minutes. Charges/Coding Visit Charges Inpatient E&M: 54042 Init Hosp L3 Procedures Hospitalists Procedures: 18995 Advncd Care Plan 30 Min 06/13/251949 Cosigner Signature (if applicable): CC: Dr. Hui Morel MD; Dr. Praveen Crum MD~ Signed [facility]07-24-2025 Radiology Diagnostic study note [facility] Imaging Services [address] [place], [place] [id number] Chest 1 View (Portable) MR#: [id number] Acct: [id number] Name: RICHIE ARMAS Rep #: [id number] : 1950 F 75 From: Pastora Dacosta MD PCP: Dr. Praveen Crum MD Status: REG ER Study:Chest 1 View (Portable) Date of Exam: 06/13/25 Exam# [id number] Ordering Dr: Margaret Moss MD PROCEDURE: CHEST 1 VIEW (PORTABLE) 06/13/2025 REASON FOR EXAM: CHEST PAIN TECHNIQUE: Frontal view of the chest. COMPARISON: 12/20/2023 FINDINGS: No focal consolidation. No pleural effusion or pneumothorax. Cardiac silhouette is within normal limits. Calcified aortic arch. Calcific tendinopathy of the right shoulder. RAD/Chest 1 View (Portable) IMPRESSION: No focal consolidations. Reading Location: [id number] CC: Dr. Praveen Crum MD; Dr. Efren Moss MD ~ Oncology Radiation Physician: Signed [facility]04-25-2025 Radiology Diagnostic study note [facility] Imaging Services [address], [place] [address] [employer] Decub and/or Erect MR#: [id number] Acct: [id number] Name: RICHIE ARMAS Rep #: [id number] : 1950 F 74 From: Tatiana Al MD PCP: Dr. Praveen Crum MD Status: REG CLI Study:[employer] Decub and/or Erect Date of Exam : 03/15/25 Exam# [id number] Ordering Dr: NAYE MARIE EXAM: XR Abdomen, 1 View CLINICAL [...] the colon consistent with constipation. Reading Location: [id number] CC: NAYE MARIE; Dr. Praveen Crum MD ~ Oncology Radiation Physician: Signed [facility]03-07-2025 Evaluation note* Diagnosis Onset Date Resolution Status Admit Date Cervical radiculopathy acute [facility] 20[facility] 1:04pm Degenerative disc disease, cervical acute January 25, 2025 1:04pm [facility] Work Phone: [phone]) 352-876608-10-2023 Discharge summary Author Greg Chahal [facility] June 30, 2023 1:07pm Note Date/Time June 30, 2023 1: 07pm [facility] Physical Therapy [facility] [address] [place] [address] / REHABILITATION SERVICES DISCHARGE SUMMARY MR#: [id number] Acct: [id number] Name: RICHIE ARMAS Rep #: [id number] : 1950 73 From: Greg Chahal PT, ATC Referring Dr.: FRANDY Sexton Status: REG RCR Insurance: MEDICARE PART A B [facility] Discharge Summary D/C summary: It has been my pleasure to treat RICHIE ARMAS referred by Brandon Sexton PA-C, with the [...] please feel free to call me at [phone]. Thank you for the referral of thispatient. Sincerely, Greg Chahal, PT, ATC Balance/Gait/Functional tests Balance/Special Test Scores Lower Extremity Functional Score: 61 <Electronically signed by Greg Chahal PT, ATC> 06/30/23 1307 CC: FRANDY Sexton; Dr. Praveen Crum MD ~ [facility] Signed [facility] Work Phone: evaluation noteNo assessment information available [facility] Work Phone: evaluation note* Diagnosis Onset Date Resolution Status Oral thrush acute [facility] Work Phone: evaluation note* Diagnosis Onset Date Resolution Status Admit Date ACS (acute coronary syndrome) acute June 13, 2025 7:16pm Elevated troponin acute June 132024 7:16pm Exertional angina acute June 132024 7:16pm Hypercholesterolemia acute June 13, 2025 7:16pm NSTEMI, initial episode of care acut e June 13, 2025 7:16pm [facility] Work Phone: evaluation note* Diagnosis NSTEMI (non-ST elevation myocardial infarction) ([facility])- Primary Acute myocardial infarction, subendocardial infarction, episode of care unspecified NSTEMI (non-ST elevation myocardial infarction) ([facility]) Acute myocardial infarction, subendocardial infarction, episode of care unspecified Other disorders of arteries, arterioles and capillaries in diseases classified elsewhere ([facility]) Cardiac pain Coronary artery disease due to calcified coronary lesion S/P CABG (coronary artery bypass graft) Postsurgical aortocoronary bypass status [facility] Diagnosis Dyspnea, unspecified type- Primary [facility] Diagnosis Dyspnea, unspecified type- Primary [facility] Diagnosis Altered mental status, unspecified altered mental status type- Primary Altered mental status, unspecified altered mental status type Lower extremity edema Edema Acute stroke due to ischemia (HCC) Stroke, recent, without late effect [facility] Author Hui Morel [facility] Note Date/Time June 13, 2025 7:50 pm [facility] Medical Records Department [address] [place] [address] H&P Exam - Hospitalist 06/13/251914 MR#: [id number] Acct: [id number] Name: RICHIE ARMAS Rep #:[id number] : 1950 75 From: Hui Morel MD PCP: Dr. Praveen Crum MD Status:ADM IN Location: ICU ICU03-1 HPI - General General Date of Admission: 06/13/25 Date of Service: 06/13/25 Chief Complaint: Chest pain HPI Narrative The patient is a 75 y/o F w/ PMHx: Raynaud disease, HTN, HLD, Hypothyroidism, Fibromyalgia, Chronic idiopathic constipation who presents to the [facility] ED on 06/13/25 with exertional chest pain [...] noted prior. ED physician discussed case with Locomotive Switch Operator. Inthe ED patient ministered full-strength aspirin therapy, heparin bolus and drip in addition to sublingual nitroglycerin eventually transition to a nitroglycerindrip as well as morphine 4 mg IV x 1. [facility] Medical History (Updated 06/13/25 @ 19:48 by [...] (From Phenergan) AdvReac Other Verified 06/13/25 17:31 Murxvsf-UPQ-JkA Reductase AdvReac Pain in Verified 06/13/25 17:31 [...] % (Auto) 53.7, Lymph % (Auto) 36.0, [place] % (Auto) 8.9, Eos % (Auto) 0.6, [...] 17:48 IMPRESSION: No focal consolidations. Reading Location: [id number] Assessment & Plan Assessment/Plan (1) NSTEMI, initial episode of care: PLAN: Plan The patient is a 75 y/o F w/ PMHx: Raynaud disease, HTN, HLD, Hypothyroidism, Fibromyalgia, Chronic idiopathic constipation who presents to the [facility] ED on 06/13/25 with exertional chest pain [...] 16 minutes. Charges/Coding Visit Charges Inpatient E&M: 83159 Init Hosp L3 Procedures Hospitalists Procedures: 86666 Advncd Care Plan 30 Min 06/13/251949 <Electronically signed by Hui Morel MD> Cosigner Signature (if applicable): CC: Dr. Hui Morel MD; Dr. Praveen Crum MD~ Signed [facility] Work Phone[facility] Work Phone: Hospital Discharge instructions Additional Instructions Please ensure that you drink plenty of fluids. Return for any worsening symptoms.[facility] Work Phone: Reason for referral (narrative)No reason for referral information availableWGalion Hospital Work Phone: Reason for visit Narrative* Auth/Cert (Routine) Specialty Diagnoses / Procedures Referred By Contac t Referred To Contact Diagnoses Non-ST elevation (NSTEMI) myocardial infarction (HCC) NSTEMI (non-ST elevation myocardial infarction) (HCC) NSTEMI Procedures . Selvin Lynch MD [address] [place] [address] Phone: tel: fax: [facility] Cardiac Thoracic Vascular Intensive Care Unit CTV ICU T1 [address] [place] [address] Phone: tel: Referral ID Status Reason Start Date Expiration Date Visits Re quested Visits Authorized 1 1 [facility] Chief Complaint and Reason for Visit Chief [...] NSTEMI, initial episode of care May 7:16pm Chief Complaint Admit Date ABDOMINAL PAIN/ STOOL SAMPLE March 15, 2025 2:56pm NSTEMI June 13, 2025 7:16 pm NSTEMI June 14, 2025 7:41 am Advance Directives No Advanced Directives Records Found Date Activated Date Inactivated Comments 06/24/2025 2:03 PM 06/27/2025 4:52 PM Date Activated Date Inactivated Comments 06/14/2025 4:52 PM 06/22/2025 2:47 PM Healthcare Agents on File Name Relationship Healthcare Agent Relationshi p Communication Salvador Acevedo Son First Alternate Health Care Agent Sean Armas Spouse Second Alternate Health Care Agent Advance Directive Response Recorded Date/ Time Living Will No December 09 2:26pm Power of Recreation Attendant No December 09, 2021 2:26pm Advance Directive Response Recorded Date/ Time Living Will No September 05 7:18am Power of Recreation Attendant No September 05, 2022 7:18am Advance Directive Response Recorded Date/ Time Name of Medical Power of Recreation Attendant SEAN ARMAS December 20, 2023 2:43pm Living Will Yes December 20 2:43pm Power of Recreation Attendant Yes December 20, 2023 2:43pm Advance Directive Response Recorded Date/ Time Living Will Yes December 20 3:43pm Power of Recreation Attendant Yes December 20, 2023 3:43pm Name of Medical Power of Recreation Attendant SEAN ARMAS December 20, 2023 3:43pm Advance Directive Response Recorded Date/ Time Living Will Yes December 20 3:43pm Do you have a Healthcare Power of Recreation Attendant? Yes December 20, 2023 3:43pm Advance Directive Response Recorded Date/ Time Do you have a Healthcare Power of Recreation Attendant? No June 13, 2025 5:43pm Advance Directive Response Recorded Date/ Time Do you have a Healthcare Power of Recreation Attendant? No June 13, 2025 8:45pm Date Activated Date Inactivated Comments 06/14/2025 4:52 PM Healthcare Agents on File Name Relationship Healthcare Agent Relationsaz p Communication Salvador Acevedo Son First Alternate Health Care Agent Sean Armas Spouse Second Alternate Health Care Agent Date Activated Date Inactivated Comments 06/14/2025 4:52 PM 06/22/2025 2:47 PM Healthcare Agents on File Name Relationship Healthcare Agent Relationshi p Communication Salvador Acevedo Son First Alternate Health Care Agent Sean Armas Spouse Second Alternate Health Care Agent Date Activated Date Inactivated Comments 06/14/2025 4:52 PM 06/22/2025 2:47 PM Healthcare Agents on File Name Relationship Healthcare Agent Relationshi p Communication Salvador Acevedo Son First Alternate Health Care Agent Sean Armas Spouse Second Alternate Health Care Agent Date Activated Date Inactivated Comments 06/24/2025 2:03 PM Healthcare Agents on File Name Relationship Healthcare Agent Relationshi p Communication Salvador Acevedo Son First Alternate Health Care Agent Sean Armas Spouse Second Alternate Health Care Agent Summary Purpose Family History No Family History Records Found Relationship Condition Age at Onset Recorded Date/T [...] section and content) DATE CREATED AUTHOR 04/26/2022 [facility]ist Conn[facility] DATE CREATED AUTHOR AUTHOR'S ORGANIZ ATION 03/07/2025 [facility] DATE CREATED AUTHOR AUTHOR'S ORGANIZ ATION 06/27/2025 [facility] DATE CREATED AUTHOR AUTHOR'S ORGANIZ ATION 06/28/2025 [facility] Care Teams (unrecognized sec tion and content) Team Status: Active Member Role Status Dates Dr. Praveen Crum MD Family Provider Active Dr. Praveen Crum MD Primary Care Provider Active Team Status: Inactive Member Role Status Dates Dr. Praveen Crum MD Primary Care Provider, Referring P rovider Active Zaki Villagran PA, PA Attending Provider Active Team Status: Inactive [...] MD Primary Care Provider Active Laly Diaz TELEPHONE STATION INSTALLER, TELEPHONE STATION INSTALLER-C Attending Provider, Referring Pro vider Active Team [...] 2024 DEMARCUS LANGFORD Attending Provider Active Start: 2023 End: October 30, 2024 DEMARCUS LANGFORD Referring Provider Active Start: 2023 End: October 30, 2024 Team Status: Inactive [...] Provider Active St art: June 13, 2025 Team Status: Inactive Member Role/Relationship Status Dates Dr. Praveen Crum MD Primary Care Provider Active Start: June 13, 2025 End: June 14, 2025 Dr. Efren Moss MD Emergency Provider Active Sta rt: June 13, 2025 End: June 14, 2025 Dr. Hui Morel MD Admit Provider Active St art: June 13, 2025 End: June 14, 2025 Dr. Hui Morel MD Other Provider Active St art: June 13, 2025 End: June 14, 2025 Dr. Cade Humphries MD Other Provider Active Start: June 13, 2025 End: June 14, 2025 Dr. Aftab Lucero DO Attending Provider Active Start: June 13, 2025 End: June 14, 2025 Team Status: Active Member Role/Relationship Status Dates Dr. Praveen Crum MD Primary Care Provider Active Start: June 14, 2025 Dr. Efren Moss MD Emergency Provider Active Sta rt: June 14, 2025 Dr. Hui Morel MD Admit Provider Active St art: June 14, 2025 Dr. Hui Morel MD Other Provider Active St art: June 14, 2025 Dr. Cade Humphries MD Other Provider Active Start: June 14, 2025 Dr. Aftab Lucero DO Other Provider Active S tart: June 14, 2025 Dr. Edil Hong MD Attending Provider Active S tart: June 14, 2025 Senior Packaging Engineer Relationship Specialty Start Date End Date Praveen Crum [address] [facility] [address] [place] [phone] PCP - General Family Medicine 06/14/25 Maria Teresa Hui [address] [facility] [address] [place] [address] Hospitalist 06/14/25 Senior Packaging Engineer Relationship Specialty Start Date End Date Praveen Crum [address] [facility] [address] [place] [phone] PCP - General Family Medicine 06/14/25 Hui Morel [address] [facility] [address] [place] [address] Hospitalist 06/14/25 Hui Morel [address] [facility] [address] [place] [address] Hospitalist 06/14/25 06/14/25 Janelle Carroll, reservoir engineering consultantProof Machine Operator Manager 06/19/25 Senior Packaging Engineer Relationship Specialty Start Date End Date CrumPraveen [address] [facility] [address] [place] [phone] PCP - General Family Medicine 06/14/25 Hui Morel [address] [facility] [address] [place] [address] Hospitalist 06/14/25 Janelle Carroll, reservoir engineering consultantProof Machine Operator Manager 06/19/25 Senior Packaging Engineer Relationship Specialty Start Date End Date Praveen Crum [address] [facility] [address] [place] [phone] PCP - General Family Medicine 06/14/25 Hui Morel [address] [place] [address] [address] [place] [address] Hospitalist 06/14/25 Janelle Carroll, reservoir engineering consultantProof Machine Operator Manager 06/19/25 Senior Packaging Engineer Relationship Specialty Start Date End Date Praveen Crum [address] [facility] [address] [place] [phone] PCP - General Family Medicine 06/14/25 Hui Morel [facility] [address] [place] [address] Hospitalist 06/14/25 Janelle Carroll, reservoir engineering consultantProof Machine Operator Manager 06/19/25 Scheduled Active and Recently Administ ered Medications (unrecognized section and content) Medication Order 06/20/2025 06/21/2025 06/22/2025 acetaminophen (Tylenol) tablet 1,000 mg 1,000 mg, Oral, Every 8 hours, First dose on Tue06/18/25 at 1615, Recovery & On Unit 0006 (Given - Provider: Susan Leong RN)0827 (Given - Provider: Sweetie Rust, JOY)1612 (Given - Provider: Sweetie Rust RN) 0031 (Given - Provider: Marquise Koroma RN)0830 (Given - Provider: Moon Granda RN)1637 (Given - Provider: Andres Lim RN) 0044 (Given - Provider: Marquise Koroma RN)0824 (Given - Provider: Laly Padilla RN) aspirin chewable tablet 81 mg 81 mg, Oral, Daily, First dose on Tue06/19/25 at 0915 0828 (Given - Provider: Sweetie Rust RN) 0830 (Given - Provider: Moon Granda RN) 0824 (Given - Provider: Laly Padilla, JOY) bisacodyl (Dulcolax) suppository 10 mg 10 mg, Rectal, Daily, First dose on Tue06/19/25 at 0915 0829 (Given - Provider: Sweetie Rust RN) 0818 (Not Given - Provider: Moon Granda RN - Reason: Patient/family refused) 09 (Not Given - Provider: Laly Padilla, RN - Reason: Patient/family refused) ceFAZolin (Ancef) 2,000 mg in sodium chloride 0.9 % 100 mL IVPB (COMPLETED) 2,000 mg, IntraVENous, at 200 mL/hr, Administer over 30 Minutes, Every 8 hours, First dose on Tue06/18/25 at 2300, For 5 doses, Recovery & On Unit, Mini-Bag Plus bag, Suspected Indication (Select all that apply): Surgical Prophylaxis 0006 (New Bag - Provider: Susan Leong RN)0040 (Stopped - Provider: Susan Leong RN)0525 (New Bag - Provider: Susan Leong RN)0556 (Stopped - Provider: Susan Leong RN) chlorhexidine (Hibiclens) 4 % solution Topical, Daily, First dose on Tue06/19/25 at 1400, Recovery & On Unit 1415 (Given - Provider: Sweetie Rust RN) 2002 (Given - Provider: Marquise Koroma RN) 1400 (Canceled Entry - Provider: Automatic Discharge Provider - Comment: Automatically canceled at discontinue of medication order) chlorhexidine (Peridex) 0.12 % solution 15 mL (CANCELED) 15 mL, Mouth/Throat, 2 times daily, First dose on Tue06/18/25 at 2100, For 7 days, Recovery & On Unit, Rinse and spit. Do not swallow. 0827 (Given - Provider: Sweetie Rust RN)2100 (Given - Provider: Marquise Koroma RN) 08 (Given - Provider: Moon Granda RN) clopidogrel (Plavix) tablet 75 mg 75 mg, Oral, Daily, First dose on Tue06/22/25 at 0900 0823 (Given - Provider: Laly Padilla, JOY) enoxaparin (Lovenox) syringe 40 mg 40 mg, SubCUTAneous, Every 24 hours, First dose on Grace 06/20/25 at 0900, Indication of Use: Prophylaxis-DVT/PE, Indications: Prophylaxis of Venous Thromboembolism 0827 (Given - Provider: Sweetie Rust RN) 0830 (Given - Provider: Moon Granda RN) 0824 (Given - Provider: Laly Padilla, JOY) ezetimibe (Zetia) tablet 10 mg 10 mg, Oral, Nightly, First dose on Tue06/22/25 at 2100 furosemide (Lasix) injection 40 mg (COMPLETED) 40 mg, IntraVENous, Once, On Tue06/21/25 at 0900, For 1 dose 0914 (Given - Provider: Moon Granda RN) ketorolac (Toradol) injection 15 mg (COMPLETED) 15 mg, IntraVENous, Every 6 hours, First dose (after last reorder) on Grace 06/20/25 at 0945, For 3 doses 1036 (Given - Provider: Sweetie Rust RN)1608 (Given - Provider: Sweetie Rust RN)2058 (Given - Provider: Marquise Koroma RN) lactulose (Chronulac) 10 GM/15ML solution 20 g (CANCELED) 20 g, Oral, 3 times daily, First dose on Grace 06/20/25 at 0900 0828 (Given - Provider: Sweetie Rust RN)1415 (Given - Provider: Sweetie Rust RN)2100 (Given - Provider: Marquise Koroma, JOY) 0818 (Not Given - Provider: Moon Granda RN - Reason: Patient/family refused) levothyroxine (Synthroid, Levoxyl) tablet 50 mcg 50 mcg, Oral, Daily before breakfast, First dose on Grace 06/20/25 at 0600, Tube feeding (TF) interaction, obtain physician order to manage, recommend holding TF for 30 minutes before and after dose. 0525 (Given - Provider: Susan Leong RN) 0603 (Given - Provider: Marquise Koroma RN) 0533 (Given - Provider: Marquise Koroma RN) Lidocaine 4 % patch 1 patch 1 patch, Topical, Administer over 12 Hours, Daily, First dose on Tue06/18/25 at 1615, Recovery & On Unit, Cut in half and place on both sides of the incision. Patch may remain in place for up to 12 hours in any 24 hour period. 0827 (Medication Applied - Provider: Sweetie Rust RN)210 (Medication Removed - Provider: Marquise Koroma RN) 0834 (Medication Applied - Provider: Moon Granda, JOY)2002 (Medication Removed - Provider: Marquise Koroma RN) 0824 (Medication Applied - Provider: Laly Padilla RN)1220 (Due: Medication Removed - Provider: Automatic Discharge Provider - Comment: Time automatically adjusted from order being discontinued) metoclopramide (Reglan) injection 10 mg (CANCELED) 10 mg, IntraVENous, Every 6 hours, First dose on Tue06/19/25 at 0930 0905 (Given - Provider: Sweetie Rust RN)1609 (Given - Provider: Sweetie Rust RN)2101 (Given - Provider: Marquise Koroma RN) 0239 (Given - Provider: Marquise Koroma RN)0846 (Not Given - Provider: Moon Granda RN - Reason: Patient/family refused) metoprolol succinate XL (Toprol-XL) 24 hr tablet 50 mg 50 mg, Oral, Daily, First dose on Tue06/22/25 at 0900, Do not crush or chew. 0837 (Given - Provider: Laly Padilla RN) metoprolol tartrate (Lopressor) tablet 25 mg (CANCELED) 25 mg, Oral, 2 times daily, First dose on Grace 06/20/25 at 0915, Hold for SBP less than 105 and/or MAPs less than 65 and/or HR less than 60 0923 (Given - Provider: Sweetie Rust RN)2100 (Given - Provider: Marquise Koroma RN) 0830 (Given - Provider: Moon Granda RN)1999 (Given - Provider: Marquise Koroma RN) mupirocin (Bactroban) 2 % ointment (CANCELED) Nasal, 2 times daily, First dose on Tue06/18/25 at 2100, For 4 days, Recovery & On Unit 0829 (Given - Provider: Sweetie Rust RN)2101 (Given - Provider: Marquise Koroma, JOY) 08 (Given - Provider: Moon Granda, JOY) NIFEdipine XL (Procardia XL) 24 hr tablet 30 mg 30 mg, Oral, Daily, First dose on Tue06/21/25 at 1300, Do not crush, chew, or split. 1352 (Given - Provider: Andres Lim RN) 0823 (Given - Provider: Laly Padilla, JOY) pantoprazole (ProtoNix) EC tablet 40 mg 40 mg, Oral, Daily before breakfast, First dose on Tue06/20/25 at 0600, Do not crush, chew, or split. 0525 (Given - Provider: Susan Leong RN) 0603 (Given - Provider: Marquise Koroma RN) 0533 (Given - Provider: Marquise Koroma RN) polyethylene glycol (PEG) 3350 (Miralax) packet 17 g 17 g, Oral, Daily, First dose on Tue06/18/25 at 1615, Recovery & On Unit, Bowel Regimen - for prevention of constipation. 0827 (Given - Provider: Sweetie Rust RN) 0818 (Not Given - Provider: Moon Granda RN - Reason: Patient/family refused) 0824 (Not Given - Provider: Laly Padilla, JOY - Reason: Patient/family refused) rosuvastatin (Crestor) tablet 40 mg 40 mg, Oral, Daily, First dose on Tue06/19/25 at 0915 0828 (Given - Provider: Sweetie Rust RN) 0830 (Given - Provider: Moon Granda, JOY) 0823 (Given - Provider: Laly Padilla, JOY) senna-docusate sodium (Senokot-S) 8.6-50 MG tablet 2 tablet 2 tablet, Oral, Nightly, First dose on Tue06/18/25 at 2100, Recovery & On Unit, Bowel Regimen - for prevention of constipation. 2058 (Given - Provider: Marquise Koroma RN) 2002 (Not Given - Provider: Marquise Koroma RN - Reason: Patient/family refused - Comment: Multiple loose stools) simethicone (Mylicon) chewable tablet 80 mg 80 mg, Oral, 4 times daily, First dose on Tue06/19/25 at 0915 0833 (Given - Provider: Sweetie Rust RN)1400 (Given - Provider: Sweetie Rust RN)1608 (Given - Provider: Sweetie Rust RN)2059 (Given - Provider: Marquise Koroma RN) 0830 (Given - Provider: Moon Granda RN)1211 (Given - Provider: Moon Granda, RN)1637 (Given - Provider: Andres Lim RN)1999 (Given - Provider: Marquise Koroma RN) 0825 (Given - Provider: Laly Padilla RN)1300 (Canceled Entry - Provider: Automatic Discharge Provider - Comment: Automatically canceled at discontinue of medication order) sodium chloride 0.9% (NS) flush 5-40 mL 5-40 mL, IntraCATHeter, Every 8 hours, First dose on Tue06/18/25 at 1615, Recovery & On Unit, For Line Patency: Peripheral IV = 5 mL; Midline or Central Line = 10 mL/lumen. If following IV push medication, administer flush at same rate as the IV push. Flush volume is determined by type of infusion therapy being given. For non-viscous solutions use: Peripheral IV = 5 mL Midline or Central Line = 10 mL/lumen For viscous solutions (i.e. blood components, parenteral nutrition, contrast media, or after obtaining blood sample) use: Peripheral IV = 10 mL Midline or Central Line = 20 mL/lumen 0006 (Given - Provider: Susan Leong RN)0828 (Given - Provider: Sweetie Rust RN)1609 (Given - Provider: Sweetie Rust RN) 0033 (Given - Provider: Marquise Koroma RN)0830 (Given - Provider: Moon Granda RN)1635 (Given - Provider: Andres Lim RN) 0045 (Given - Provider: Marquise Koroma RN)0841 (Not Given - Provider: Laly Padilla RN - Reason: Other) PRN Medication Order 06/20/2025 06/21/2025 06/22/2025 albumin human 25 % IV solution 25 g 25 g, IntraVENous, at 60 mL/hr, As needed, fluid bolus challenge PRN: PAD below goal (18) and/or Low BP (less than 90 SBP and/or less than 60 MAP) and/or Low urine output (less than 30ml/hr) per hemodynamic goals, Starting on Tue06/18/25 at 1601, For 2 doses, Recovery & On Unit, To be given in conjunction with PRN 250ml Lactate Ringer Bolus Use if hgb greater than 7.5 and PAD below goal (18) and/or Low BP (less than 90 SBP and/or less than 60 MAP) and/or Low urine output (less than 30ml/hr) per hemodynamic goals If hemodynamic goals unattained, proceed to second fluid bolus challenge If hgb less than 7.5 notify surgeon for orders. 1018 (Rate/Dose Verify - Provider: Sweetie Rust RN) calcium gluconate 2000 mg in 100 mL IVPB premix 2,000 mg, IntraVENous, at 50 mL/hr, Administer over 2 Hours, PRN, ionized calcium less than 4.3, Starting on Tue06/18/25 at 1601, Recovery & On Unit, Give 2000 mg for ionized calcium less than 4.3 premix bag dextrose 5 % infusion 100 mL/hr, IntraVENous, PRN, Blood sugar less than 70mg/dL, Starting on Tue06/18/25 at 1601, Recovery & On Unit, Start infusion following administration of dextrose 50% or glucagon. dextrose 50 % solution 12.5 g 12.5 g, IntraVENous, PRN, low blood sugar, Blood glucose less than 70 mg/dL and patient NOT ALERT or NPO., Starting on Tue06/18/25 at 1601, Recovery & On Unit, If patient does not respond within 5 minutes, repeat dose x1. Start D5W at 100 mL/hour until ordering provider can be reached. Repeat blood glucose in 15 minutes. If blood glucose is less than 70 mg/dL, repeat treatment and recheck blood glucose in 15 minutes x2. If using Glucostabilizer, dose as instructed per system. glucagon (human recombinant) injection 1 mg 1 mg, IntraMUSCular, PRN, low blood sugar, Blood glucose less than 70 mg/dL and patient NOT ALERT or NPO and does not have IV access., Starting on Tue06/18/25 at 1601, Recovery & On Unit, After administration, attempt intravenous access and start D5W at 100 mL/hr. Repeat blood glucose in 15 minutes x2 and notify provider. glucose oral gel 15 g 15 g, Oral, As needed, low blood sugar, Starting on Tue06/18/25 at 1601, Recovery & On Unit, If blood glucose less than 50 mg/dL and patient ALERT and NOT NPO, give 2 tubes glucose gel. If blood glucose less than 70 mg/dL and patient ALERT and NOT NPO, give 1 tube glucose gel. Repeat blood glucose in 15 minutes. If blood glucose is less than 70 mg/dL, repeat treatment and recheck blood glucose in 15 minutes x2 and notify provider. HYDROmorphone (Dilaudid) injection 0.25 mg (CANCELED)(Linked Group 1) 0.25 mg, IntraVENous, Every 2 hour PRN, moderate pain (4-6), Starting on Tue06/19/25 at 0841, If oral and injectable narcotics ordered, use oral first and only use injectable if oral is ineffective or cannot take oral. Do Not give oral and injectable within 1 hour of each other unless specifically ordered. 0101 (Given - Provider: Susan Leong RN)0555 (See Alternative - Provider: Susan Leong RN) HYDROmorphone (Dilaudid) injection 0.5 mg (CANCELED)(Linked Group 1) 0.5 mg, IntraVENous, Every 2 hour PRN, severe pain (7-10), Starting on Tue06/19/25 at 0841, If oral and injectable narcotics ordered, use oral first and only use injectable if oral is ineffective or cannot take oral. Do Not give oral and injectable within 1 hour of each other unless specifically ordered. 0101 (See Alternative - Provider: Susan Leong RN)0555 (Given - Provider: Susan Leong RN) ipratropium-albuterol (Duo-Neb) 0.5-2.5 mg/3 mL nebulizer solution 3 mL 3 mL, Nebulization, 3 times daily PRN, wheezing, shortness of breath, Starting on Tue06/18/25 at 1601, Recovery & On Unit lactated ringers bolus 250 mL 250 mL, IntraVENous, at 124 mL/hr, Administer over 121 Minutes, Continuous PRN, fluid bolus challenge: lactated ringers bolus, Starting on Tue06/18/25 at 1601, Recovery & On Unit, To be given in conjunction with PRN 25gm Albumin order Use if hgb greater than 7.5 and PAD below goal (18) and/or Low BP (less than 90 SBP and/or less than 60 MAP) and/or Low urine output (less than 30ml/hr) per hemodynamic goals If hemodynamic goals unattained, proceed to second fluid bolus challenge If hgb less than 7.5 notify surgeon for orders. magnesium hydroxide (Milk of Magnesia) 400 MG/5ML suspension 30 mL 30 mL, Oral, Daily PRN, constipation, Starting on Tue06/18/25 at 1601, Recovery & On Unit, 1st line for treatment of constipation - give scheduled if no bowel movement in past 24 hours magnesium sulfate IVPB 4,000 mg(Linked Group 2) 4,000 mg, IntraVENous, at 25 mL/hr, Administer over 4 Hours, As needed, Per Magnesium Replacement Protocol, Starting on Tue06/18/25 at 1601, Recovery & On Unit, Mg Lab Replacement Action 1.4-1.6 2 gram IVPB x 1 doses 1.0-1.3 4 gram IVPB x 1 doses Less than 1.0 CALL PHYSICIAN and 4 gram IVPB x 1 doses Infuse at 1 gram/hr. Repeat Mag level next AM. Not for use in Patients with CrCl less than 30 mL/min. magnesium sulfate IVPB premix 2,000 mg(Linked Group 2) 2,000 mg, IntraVENous, at 25 mL/hr, Administer over 2 Hours, As needed, Per Magnesium Replacement Protocol, Starting on Tue06/18/25 at 1601, Recovery & On Unit, Mg Lab Replacement Action 1.4-1.6 2 gram IVPB x 1 doses 1.0-1.3 4 gram IVPB x 1 doses Less than 1.0 CALL PHYSICIAN and 4 gram IVPB x 1 doses Infuse at 1 gram/hr. Repeat Mag level next AM. Not for use in Patients with CrCl less than 30 mL/min. naloxone (Narcan) injection 0.4 mg 0.4 mg, IntraVENous, Every 5 min PRN, opioid reversal, respiratory depression, Starting on Tue06/19/25 at 0845, +++ For RR <10, pinpoint pupils, over sedation for opioid reversal - MUST notify nonprofit financial controller provider immediately after first dose, may give IM or SQ if no IV access +++ ondansetron (Zofran) injection 4 mg(Linked Group 3) 4 mg, IntraVENous, Every 6 hours PRN, nausea, vomiting, Starting on Tue06/18/25 at 1601, Recovery & On Unit, 1st Line. Give IV if patient is unable to take orally. If inadequate response within 60 minutes, proceed to next-line agent or contact provider if no further options ordered. 0828 (See Alternative - Provider: Sweetie Rust RN) ondansetron ODT (Zofran-ODT) disintegrating tablet 4 mg(Linked Group 3) 4 mg, Oral, Every 8 hours PRN, nausea, vomiting, Starting on Tue06/18/25 at 1601, Recovery & On Unit, 1st Line. If inadequate response within 60 minutes, proceed to next-line agent or contact provider if no further options ordered. Patient should allow tablet to dissolve on tongue. Do not remove from blister pack until just before administering. 0828 (Given - Provider: Sweetie Rust RN) oxyCODONE (Roxicodone) immediate release tablet 10 mg(Linked Group 4) 10 mg, Oral, Every 4 hours PRN, severe pain (7-10), Starting on Tue06/18/25 at 1601, Recovery & On Unit 0524 (See Alternative - Provider: Susan Leong RN)0923 (Given - Provider: Sweetie Rust RN)2100 (See Alternative - Provider: Marquise Koroma, JOY) 0239 (See Alternative - Provider: Marquise Koroma, RN)2000 (See Alternative - Provider: Marquise Koroma, RN) 0125 (See Alternative - Provider: Marquise Koroma, RN) oxyCODONE (Roxicodone) immediate release tablet 5 mg(Linked Group 4) 5 mg, Oral, Every 4 hours PRN, moderate pain (4-6), Starting on Tue06/18/25 at 1601, Recovery & On Unit 0524 (Given - Provider: Susan Leong RN)0973 (See Alternative - Provider: Sweetie Rust RN)2099 (Given - Provider: Marquise Koroma, RN) 023 (Given - Provider: Marquise Koroma, RN)1999 (Given - Provider: Marquise Koroma, JOY) 012 (Given - Provider: Marquise Koroma RN) potassium chloride 40 mEq in NS 500 mL IVPB (premix)(Linked Group 5) 40 mEq, IntraVENous, at 125 mL/hr, Administer over 4 Hours, 3 times daily PRN, hypokalemia, Starting on Tue06/18/25 at 1601, Recovery & On Unit, For Peripheral Line Use. K Lab Replacement Action 3.1-3.5 20 mEq IVPB x 1 doses 2.7-3.0 40 mEq IVPB x 1 doses less than 2.7 CALL PROVIDER and administer 40 mEq IVPB x 1 dose Infuse at 10 mEq/hr Repeat Potassium lab 1 hour after administration. Protocol not for use in Patients with CrCl less than 30mL/min potassium chloride CR (Klor-Con M10) ER tablet 20 mEq 20 mEq, Oral, PRN, Hypokalemia, Starting on Tue06/19/25 at 0000, Recovery & On Unit, If patient is intubated or not tolerating PO use PRN IV replacement protocol Potassium level Dose LESS than 3.0 = Give 20 mEq x 3 doses 3.0-3.6 = Give 20 mEq x 2 doses Recheck potassium level 2 hour after replacement given, place order for lab under [place] If potassium level LESS than 3 after 1st replacement: Call surgeon. Do not crush or break. Do not crush or chew. Potassium Chloride in NaCl IVPB 20 mEq(Linked Group 5) 20 mEq, IntraVENous, Administer over 2 Hours, Every 8 hours PRN, hypokalemia, Starting on Tue06/18/25 at 1601, Recovery & On Unit, For Peripheral Line Use K Lab Replacement Action 3.1-3.5 20 mEq IVPB x 1 doses 2.7-3.0 40 mEq IVPB x 1 doses less than 2.7 CALL PROVIDER and administer 40 mEq IVPB x 1 dose Infuse at 10 mEq/hr Repeat Potassium lab 1 hour after administration. Protocol not for use in Patients with CrCl less than 30mL/min potassium chloride IVPB 20 mEq(Linked Group 5) 20 mEq, IntraVENous, at 50 mL/hr, Administer over 1 Hours, 3 times daily PRN, hypokalemia, Starting on Tue06/18/25 at 1601, Recovery & On Unit, For Central Line Use Only K Lab Replacement Action 3.1-3.5 20 mEq IVPB x 2 doses 2.7-3.0 20 mEq IVPB x 2 doses (40 mEq Total) less than 2.7 CALL PROVIDER and administer 20 mEq IVPB x 2 doses (40 mEq Total) Infuse at 20 mEq/hr Repeat Potassium lab 1 hour after final administration. Protocol not for use in Patients with CrCl less than 30mL/min For central line administration only. sodium chloride 0.9 % infusion 250 mL/hr, IntraVENous, Administer over 10 Minutes, As needed, For use in priming line prior to transfusion (prime via gravity) and flush line post transfusion, Starting on Tue06/18/25 at 1652, For 1 dose, For use in priming line prior to transfusion (prime via gravity) and flush line post transfusion ONLY. Discontinue once line has been cleared of remaining blood product. sodium chloride 0.9% (NS) flush 5-40 mL 5-40 mL, IntraVENous, PRN, line care, before and after blood draws, infusion, or medication administration, Starting on Tue06/18/25 at 1601, Recovery & On Unit, For Line Patency: Peripheral IV = 5 mL; Midline or Central Line = 10 mL/lumen. If following IV push medication, administer flush at same rate as the IV push. Flush volume is determined by type of infusion therapy being given. For non-viscous solutions use: Peripheral IV = 5 mL Midline or Central Line = 10 mL/lumen For viscous solutions (i.e. blood components, parenteral nutrition, contrast media, or after obtaining blood sample) use: Peripheral IV = 10 mL Midline or Central Line = 20 mL/lumen Linked Groups Order Group 1: HYDROmorphone (Dilaudid) injection 0.25 mg (CANCELED)Jump to med 0.25 mg, IntraVENous, Every 2 hour PRN, moderate pain (4-6), Starting on Tue06/19/25 at 0841, If oral and injectable narcotics ordered, use oral first and only use injectable if oral is ineffective or cannot take oral. Do Not give oral and injectable within 1 hour of each other unless specifically ordered. Or HYDROmorphone (Dilaudid) injection 0.5 mg (CANCELED)Jump to med 0.5 mg, IntraVENous, Every 2 hour PRN, severe pain (7-10), Starting on Tue06/19/25 at 0841, If oral and injectable narcotics ordered, use oral first and only use injectable if oral is ineffective or cannot take oral. Do Not give oral and injectable within 1 hour of each other unless specifically ordered. Group 2: magnesium sulfate IVPB premix 2,000 mgJump to med 2,000 mg, IntraVENous, at 25 mL/hr, Administer over 2 Hours, As needed, Per Magnesium Replacement Protocol, Starting on Tue06/18/25 at 1601, Recovery & On Unit, Mg Lab Replacement Action 1.4-1.6 2 gram IVPB x 1 doses 1.0-1.3 4 gram IVPB x 1 doses Less than 1.0 CALL PHYSICIAN and 4 gram IVPB x 1 doses Infuse at 1 gram/hr. Repeat Mag level next AM. Not for use in Patients with CrCl less than 30 mL/min. Or magnesium sulfate IVPB 4,000 mgJump to med 4,000 mg, IntraVENous, at 25 mL/hr, Administer over 4 Hours, As needed, Per Magnesium Replacement Protocol, Starting on Tue06/18/25 at 1601, Recovery & On Unit, Mg Lab Replacement Action 1.4-1.6 2 gram IVPB x 1 doses 1.0-1.3 4 gram IVPB x 1 doses Less than 1.0 CALL PHYSICIAN and 4 gram IVPB x 1 doses Infuse at 1 gram/hr. Repeat Mag level next AM. Not for use in Patients with CrCl less than 30 mL/min. Group 3: ondansetron ODT (Zofran-ODT) disintegrating tablet 4 mgJump to med 4 mg, Oral, Every 8 hours PRN, nausea, vomiting, Starting on Tue06/18/25 at 1601, Recovery & On Unit, 1st Line. If inadequate response within 60 minutes, proceed to next-line agent or contact provider if no further options ordered. Patient should allow tablet to dissolve on tongue. Do not remove from blister pack until just before administering. Or ondansetron (Zofran) injection 4 mgJump to med 4 mg, IntraVENous, Every 6 hours PRN, nausea, vomiting, Starting on Tue06/18/25 at 1601, Recovery & On Unit, 1st Line. Give IV if patient is unable to take orally. If inadequate response within 60 minutes, proceed to next-line agent or contact provider if no further options ordered. Group 4: oxyCODONE (Roxicodone) immediate release tablet 5 mgJump to med 5 mg, Oral, Every 4 hours PRN, moderate pain (4-6), Starting on Tue06/18/25 at 1601, Recovery & On Unit Or oxyCODONE (Roxicodone) immediate release tablet 10 mgJump to med 10 mg, Oral, Every 4 hours PRN, severe pain (7-10), Starting on Tue06/18/25 at 1601, Recovery & On Unit Group 5: potassium chloride IVPB 20 mEqJump to med 20 mEq, IntraVENous, at 50 mL/hr, Administer over 1 Hours, 3 times daily PRN, hypokalemia, Starting on Tue06/18/25 at 1601, Recovery & On Unit, For Central Line Use Only K Lab Replacement Action 3.1-3.5 20 mEq IVPB x 2 doses 2.7-3.0 20 mEq IVPB x 2 doses (40 mEq Total) less than 2.7 CALL PROVIDER and administer 20 mEq IVPB x 2 doses (40 mEq Total) Infuse at 20 mEq/hr Repeat Potassium lab 1 hour after final administration. Protocol not for use in Patients with CrCl less than 30mL/min For central line administration only. Or Potassium Chloride in NaCl IVPB 20 mEqJump to med 20 mEq, IntraVENous, Administer over 2 Hours, Every 8 hours PRN, hypokalemia, Starting on Tue06/18/25 at 1601, Recovery & On Unit, For Peripheral Line Use K Lab Replacement Action 3.1-3.5 20 mEq IVPB x 1 doses 2.7-3.0 40 mEq IVPB x 1 doses less than 2.7 CALL PROVIDER and administer 40 mEq IVPB x 1 dose Infuse at 10 mEq/hr Repeat Potassium lab 1 hour after administration. Protocol not for use in Patients with CrCl less than 30mL/min Or potassium chloride 40 mEq in NS 500 mL IVPB (premix)Jump to med 40 mEq, IntraVENous, at 125 mL/hr, Administer over 4 Hours, 3 times daily PRN, hypokalemia, Starting on Tue06/18/25 at 1601, Recovery & On Unit, For Peripheral Line Use. K Lab Replacement Action 3.1-3.5 20 mEq IVPB x 1 doses 2.7-3.0 40 mEq IVPB x 1 doses less than 2.7 CALL PROVIDER and administer 40 mEq IVPB x 1 dose Infuse at 10 mEq/hr Repeat Potassium lab 1 hour after administration. Protocol not for use in Patients with CrCl less than 30mL/min Scheduled Medication Order 06/25/2025 06/26/2025 06/27/2025 acetaminophen (Tylenol) tablet 1,000 mg 1,000 mg, Oral, 3 times daily, First dose on Tue06/26/25 at 1400, Maximum dose of acetaminophen is 4000 mg from all sources in 24 hours. 1509 (Given - Provider: Maria Guadalupe Martin RN)2110 (Given - Provider: Cassandra Herman RN) 0844 (Given - Provider: Maria Guadalupe Martin RN)1312 (Given - Provider: Maria Guadalupe Martin RN) aspirin chewable tablet 81 mg 81 mg, Oral, Daily, First dose on Tue06/24/25 at 1405 0844 (Given - Provider: Jarod Rodriguez RN) 0850 (Given - Provider: Maria Guadalupe Martin RN) 0844 (Given - Provider: Maria Guadalupe Martin RN) clopidogrel (Plavix) tablet 75 mg 75 mg, Oral, Daily, First dose on Tue06/24/25 at 1405 0845 (Given - Provider: Jarod Rodriguez RN) 0850 (Given - Provider: Maria Guadalupe Martin RN) 0844 (Given - Provider: Maria Guadalupe Martin RN) DULoxetine (Cymbalta) DR capsule 20 mg 20 mg, Oral, Daily, First dose on Tue06/26/25 at 1345, Do not crush or chew. 1515 (Not Given - Provider: Maria Guadalupe Martin RN - Reason: Other - Comment: pt wants to take at bed time) ezetimibe (Zetia) tablet 10 mg 10 mg, Oral, Nightly, First dose on Tue06/24/25 at 2100 2104 (Given - Provider: Meena Arauz RN) 2110 (Given - Provider: Cassandra Herman RN) labetalol (Normodyne,Trandate) injection 10 mg 10 mg, IntraVENous, Once, On Tue06/25/25 at 2345, For 1 dose 2350 (Not Given - Provider: Meena Arauz RN - Reason: Patient/family refused - Comment: Pt refused) levothyroxine (Synthroid, Levoxyl) tablet 50 mcg 50 mcg, Oral, Daily before breakfast, First dose on Tue06/25/25 at 0600, Tube feeding (TF) interaction, obtain physician order to manage, recommend holding TF for 30 minutes before and after dose. 0544 (Given - Provider: Koki Bell RN) 0654 (Given - Provider: Meena Arauz RN) 0603 (Given - Provider: Cassandra Herman RN) Lidocaine 4 % patch 1 patch 1 patch, TransDERmal, Administer over 12 Hours, Daily, First dose on Tue06/26/25 at 1000, Apply patch to affected area. Patch may remain in place for up to 12 hours in any 24 hour period. 1055 (Medication Applied - Provider: Maria Guadalupe Martin RN - Comment: neck)2209 (Medication Removed - Provider: Cassandra Herman RN) 0843 (Medication Applied - Provider: Maria Guadalupe Martin RN - Comment: Back of neck)1446 (Due: Medication Removed - Provider: Automatic Discharge Provider - Comment: Time automatically adjusted from order being discontinued) melatonin tablet 3 mg 3 mg, Oral, Nightly, First dose on Tue06/24/25 at 2215 2104 (Not Given - Provider: Meena Arauz RN - Reason: Patient/family refused) 2109 (Given - Provider: Cassandra Herman RN) metoprolol succinate XL (Toprol-XL) 24 hr tablet 50 mg 50 mg, Oral, Daily, First dose (after last modification) on Tue06/26/25 at 0945, Do not crush or chew. 1055 (Given - Provider: Maria Guadalupe Martin RN) 0844 (Given - Provider: Maria Guadalupe Martin RN) NIFEdipine XL (Procardia XL) 24 hr tablet 30 mg 30 mg, Oral, Daily, First dose (after last modification) on Tue06/26/25 at 0945, Do not crush, chew, or split. 1217 (Given - Provider: Khushi Shay, RN) 1122 (Given - Provider: Maria Guadalupe Martin, JOY) rosuvastatin (Crestor) tablet 40 mg 40 mg, Oral, Daily, First dose on Tue06/24/25 at 2100 2104 (Given - Provider: Meena Arauz, RN) 2110 (Given - Provider: Cassandra Herman RN) Continuous Medication Order 06/25/2025 06/26/2025 06/27/2025 sodium chloride 0.9 % infusion 50 mL/hr, IntraVENous, Continuous, Starting on Tue06/24/25 at 1405 0407 (Rate/Dose Verify - Provider: Koki Bell RN) 1647 (Due: Order Ending - Provider: Automatic Discharge Provider - Comment: [Order ends at this time. Document the following action when infusion is complete: Stopped]) PRN Medication Order 06/25/2025 06/26/2025 06/27/2025 acetaminophen (Tylenol) tablet 650 mg (CANCELED)(Linked Group 1) 650 mg, Oral, Every 6 hours PRN, mild pain (1-3), fever, For temp greater than 100.4 F (38 C), Starting on Tue06/24/25 at 1403, Maximum dose of acetaminophen is 4000 mg from all sources in 24 hours. 0850 (Given - Provider: Maria Guadalupe Martin, JOY) bisacodyl (Dulcolax) suppository 10 mg 10 mg, Rectal, Daily PRN, constipation, Starting on Tue06/24/25 at 1403, 2nd line for treatment of constipation - give scheduled (in addition to 1st line agent) if no bowel movement in past 48 hours haloperidol lactate (Haldol) injection 0.5 mg 0.5 mg, IntraMUSCular, Every 6 hours PRN, agitation, second line for agitation, [place] PRN for ONLY if danger to self/others/treatment, Starting on Tue06/26/25 at 1329, IM route of administration preferred. Because of the risk of TdP and QT prolongation, ECG monitoring is recommended if haloperidol is given IV labetalol (Normodyne,Trandate) injection 10 mg 10 mg, IntraVENous, Every 10 min PRN, high blood pressure, Starting on Tue06/24/25 at 1403, Administer 10 mg IV every 10 minutes if SBP is 220 mmHg or greater OR DBP is 120 mmHg or greater. Notify provider if SBP is 220 mmHg or greater OR DBP is 120 mmHg or greater after 3 consecutive doses. 0300 (Given - Provider: Samanta Arreguin RN - Comment: approved by Hernesto Perez NP) naloxone (Narcan) injection 0.4 mg 0.4 mg, IntraVENous, Every 5 min PRN, opioid reversal, respiratory depression, Starting on Tue06/24/25 at 1406, +++ For RR <10, pinpoint pupils, over sedation for opioid reversal - MUST notify nonprofit financial controller provider immediately after first dose, may give IM or SQ if no IV access +++ ondansetron (Zofran) injection 4 mg(Linked Group 2) 4 mg, IntraVENous, Every 6 hours PRN, nausea, vomiting, Starting on Tue06/24/25 at 1403, 1st Line. Give IV if patient is unable to take orally. If inadequate response within 60 minutes, proceed to next-line agent or contact provider if no further options ordered. ondansetron ODT (Zofran-ODT) disintegrating tablet 4 mg(Linked Group 2) 4 mg, Oral, Every 8 hours PRN, nausea, vomiting, Starting on Tue06/24/25 at 1403, 1st Line. If inadequate response within 60 minutes, proceed to next-line agent or contact provider if no further options ordered. Patient should allow tablet to dissolve on tongue. Do not remove from blister pack until just before administering. oxyCODONE (Roxicodone) immediate release tablet 2.5 mg(Linked Group 3) 2.5 mg, Oral, Every 6 hours PRN, moderate pain (4-6), Starting on Tue06/26/25 at 1328 oxyCODONE (Roxicodone) immediate release tablet 5 mg (CANCELED) 5 mg, Oral, Every 6 hours PRN, severe pain (7-10), acute post surgical pain, Starting on Tue06/24/25 at 1403 0103 (Given - Provider: Koki Bell RN)2105 (Given - Provider: Meena Arauz RN) oxyCODONE (Roxicodone) immediate release tablet 5 mg(Linked Group 3) 5 mg, Oral, Every 6 hours PRN, severe pain (7-10), Starting on Tue06/26/25 at 1328 polyethylene glycol (PEG) 3350 (Miralax) packet 17 g 17 g, Oral, Daily PRN, constipation, Starting on Tue06/24/25 at 1403, 1st line for treatment of constipation - give scheduled if no bowel movement in past 24 hours. 2103 (Given - Provider: Meena Arauz, RN) 0850 (Given - Provider: Maria Guadalupe Martin, RN) 0843 (Given - Provider: Maria Guadalupe Martin, RN) QUEtiapine (SEROquel) tablet 12.5 mg 12.5 mg, Oral, 2 times daily PRN, agitation, first line for agitation, [place] PRN for ONLY if danger to self/others/treatment, Starting on Tue06/26/25 at 1328 senna-docusate sodium (Senokot-S) 8.6-50 MG tablet 2 tablet 2 tablet, Oral, Daily PRN, constipation, Starting on Tue06/25/25 at 2300 1606 (Given - Provider: Khushi Shay RN) Linked Groups Order Group 1: acetaminophen (Tylenol) tablet 650 mg (CANCELED)Jump to med 650 mg, Oral, Every 6 hours PRN, mild pain (1-3), fever, For temp greater than 100.4 F (38 C), Starting on Tue06/24/25 at 1403, Maximum dose of acetaminophen is 4000 mg from all sources in 24 hours. Or acetaminophen (Tylenol) suppository 650 mg (CANCELED) 650 mg, Rectal, Every 6 hours PRN, mild pain (1-3), fever, For temp greater than 100.4 F (38 C), Starting on Tue06/24/25 at 1403, Administer if oral route cannot be used. Maximum dose of acetaminophen is 4000 mg from all sources in 24 hours. Group 2: ondansetron ODT (Zofran-ODT) disintegrating tablet 4 mgJump to med 4 mg, Oral, Every 8 hours PRN, nausea, vomiting, Starting on Tue06/24/25 at 1403, 1st Line. If inadequate response within 60 minutes, proceed to next-line agent or contact provider if no further options ordered. Patient should allow tablet to dissolve on tongue. Do not remove from blister pack until just before administering. Or ondansetron (Zofran) injection 4 mgJump to med 4 mg, IntraVENous, Every 6 hours PRN, nausea, vomiting, Starting on 06/24/25 at 1403, 1st Line. Give IV if patient is unable to take orally. If inadequate response within 60 minutes, proceed to next-line agent or contact provider if no further options ordered. Group 3: oxyCODONE (Roxicodone) immediate release tablet 2.5 mgJump to med 2.5 mg, Oral, Every 6 hours PRN, moderate pain (4-6), Starting on Tue06/26/25 at 1328 Or oxyCODONE (Roxicodone) immediate release tablet 5 mgJump to med 5 mg, Oral, Every 6 hours PRN, severe pain (7-10), Starting on Tue06/26/25 at 1328 Reason for Visit (unrecogniz ed section and content) Reason Onset Date Comments Other 06/23/2025 Page out Reason Comments Altered Mental Status Pt had open heart on 06/18, Patient c/o heart palpations, acid reflex flare and confusion for a few days. Specialty Diagnoses / Procedures Referred By Contharis t Referred To Contact Diagnoses Altered mental status, unspecified altered mental status type Procedures . Bertha Berger MD [address] [place] [address] Phone: tel: fax: [facility] [address] [place] [phone] Phone: tel: fax: Referral ID Status Reason Start Date Expiration Date Visits Re quested Visits Authorized 1 1 FOR RECORDS PERTAINING TO PATIENTS WHO ARE [...] BE BASED ON THE PRIMARY CLINICAL RECORDS. [facility]. provides no warranty or guarantee of the accuracy or completeness of information in this document.
[2025-06-28 16:38] LABS: Color, Urine Straw (Yellow); Glucose, Dipstick Normal (Normal); Ketone-Dipstick Negative (Negative); Leukocyte Esterase-Dipstick Negative /ul (Negative); Nitrite-Dipstick Negative (Negative); Occult Blood-Urine Negative /ul (Negative); Protein-Dipstick 15 mg/dl (Negative); Specific Gravity, Urine 1.015 (1.002-1.030); Urine Bilirubin Dipstick Negative (Negative)
[2025-06-28 16:57] LABS: Anion Gap 15 (5-15); BUN 12 mg/dL (4-19); BUN/Creat Ratio 18.3 RATIO (10-20); Calcium,Total 10.0 mg/dL (7.6-11.0); Carbon Dioxide 21.7 mmol/L (21.0-32.0); Chloride 101 mmol/L (98-108); Estimated Creatinine Clearance 51.04 ml/min (50-250); Glucose 124 mg/dL (70-99); Potassium 4.4 mmol/L (3.3-5.1)
[2025-06-28 17:24] LABS: Red Blood Cells-Urine 0-5 SEEN /hpf (0-5); Squamous Epithelial Cells - UA 0-5 SEEN /hpf (5-10)
[2025-06-28 17:38] VITALS: BP 168/82; PULSE 81; RESP 18; TEMP 37.1; O2SAT 100
[2025-06-28 17:44] VITALS: BP 168/82; PULSE 81; RESP 18; TEMP 37.1; O2SAT 100
== END 2025-06-28 17:39 | disposition home or self-care (01) ==
PROVIDERS: Physician Assistant; Emergency Provider Surgery; PCP Family Medicine; Visit Provider Surgery
DX: R53.1 Weakness (principal); D64.9 Anemia, unspecified; I12.9 Hypertensive chronic kidney disease with stage 1 through stage 4 chronic kidney disease, or unspecified chronic kidney disease; N18.2 Chronic kidney disease, stage 2 (mild); I25.2 Old myocardial infarction; Z95.1 Presence of aortocoronary bypass graft
CPT/HCPCS: 71045; 80048; 81001; 85025; 93005; 99283; A4216

== ENCOUNTER 2025-07-14 18:11 | Emergency (ER) | payer MEDICARE, OTHER, SELFPAY ==
[2025-07-14 18:12] VITALS: BP 152/70; PULSE 80; RESP 16; TEMP 36.7; O2SAT 100
--- NOTE | 2025-07-14 18:21 | EKG12_ITS ---
Test Reason : CP Blood Pressure : */* mmHG Vent. Rate : 76 BPM Atrial Rate : 76 BPM P-R Int : 156 ms QRS Dur : 82 ms QT Int : 384 ms P-R-T Axes : 63 53 137 degrees QTcB Int : 432 ms Normal sinus rhythm Possible Left atrial enlargement Nonspecific T wave abnormality Abnormal ECG Confirmed by KHADIJAH NUÑEZ, RILEY ([id number]), proposal editor ENZO PATE ([id number]) on 07/15/2025 1:09:08 PM Referred By: YOEL Confirmed By: RILEY LUCIO MD
[2025-07-14 18:39] LABS: Hematocrit 34.5 % (37-47); Hemoglobin 11.3 g/dL (12.0-15.0); Immature Granulocytes Count 0.020 X10^3/uL (0.0-0.0); Mean Corp Hgb Conc 32.8 g/dL (32-36); Mean Corpuscular Volume 94.3 fL (81-99); Mean Platelet Vol. 9.9 fl (6.2-12.0); NRBC Flagged by Analyzer 0 % (0-5); Platelet Count 355 K/mm3 (150-450); RBC Distribution Width CV 14.8 % (11.6-14.6); RBC Distribution Width SD 51.6 fl (35.1-43.9); Red Blood Count 3.66 M/mm3 (4.2-5.4); White Blood Count 6.5 K/mm3 (4.4-11.0)
[2025-07-14 19:10] LABS: Troponin T High Sensitivity 19 ng/L (<=14)
[2025-07-14 19:12] VITALS: BP 153/62; PULSE 68; RESP 20; O2SAT 100
--- NOTE | 2025-07-14 19:16 | RAD_ITS ---
PROCEDURE: CHEST 1 VIEW (PORTABLE) 07/14/2025 REASON FOR EXAM: CHEST PAIN. Open heart surgery June 18, 2025. Chest pain with shortness of breath. TECHNIQUE: Frontal view of the chest. COMPARISON: Chest radiograph June 28, 2025 FINDINGS: Hardware: Sternal wires. Heart: Normal size Lungs: Clear and expanded Bones: No aggressive bone process. Other: RAD/Chest 1 View (Portable) IMPRESSION: No acute process is detected. Reading [facility]
[2025-07-14 19:17] VITALS: BMI 26.9
--- NOTE | 2025-07-14 19:36 | ED.VIS.CHEST ---
HPI History of Present Illness Chief Complaint: Chest Pain Narrative Narrative: 75-year-old female is status post triple bypass surgery at [facility] on 729 presents with chest pain that began a few hours ago after an argument with her mother. She began feeling chest pain/pressure, lightheadedness, that was somewhat different than her previous coronary artery disease/NV over a month ago. She relates history that she had CABG surgery, and 2 weeks ago was supposed to follow-up with her surgeon, but she had been at a rehabilitation facility for psychologic and medical reasons, but found out that the facility did not really treat medical patients. She was released recently, and has a follow-up appointment next week. She presents to the emergency department with chest pain and lightheadedness that has improved. [facility] Medical History NSTEMI, initial episode of care Hypercholesterolemia Exertional angina Elevated troponin ACS (acute coronary syndrome) Chronic idiopathic constipation CKD (chronic kidney disease), stage II GERD (gastroesophageal reflux disease) IBS (irritable bowel syndrome) HTN (hypertension) Raynaud disease Fibromyalgia Cataract High cholesterol Hypothyroidism Home Medications ?Medication ?Instructions ?Recorded ?Last Taken ?Type amitriptyline 50 mg tablet 50 mg PO DAILY 11/12/15 06/12/25 History alendronate 70 mg tablet 70 mg PO .weekly 01/25/25 06/12/25 History levothyroxine 75 mcg tablet 75 mcg PO DAILY 01/25/25 06/13/25 History nifedipine 30 mg tablet,extended 30 mg PO DAILY 01/25/25 06/13/25 History release pantoprazole 20 mg tablet,delayed 20 mg PO QDAY 01/25/25 06/13/25 History release tizanidine 4 mg tablet 4 mg PO QHS 01/25/25 06/12/25 History tramadol 50 mg tablet 50 mg PO PRN 01/25/25 Unknown History lubiprostone 24 mcg capsule 24 mcg PO BID 06/13/25 06/13/25 History venlafaxine 37.5 mg 37.5 mg PO DAILY depression 06/13/25 Unknown History capsule,extended release 24 hr Allergy/AdvReac Type Severity Reaction Status Date / Time cyclobenzaprine HCl (From AdvReac Other Verified 07/14/25 18:12 Flexeril) promethazine (From Phenergan) AdvReac Other Verified 07/14/25 18:12 Family History Father Heart disease CAD (coronary artery disease) Hypertension Myocardial infarction HLD (hyperlipidemia) Mother Hypertension Surgical History Previous back surgery H/O wrist surgery History of ankle surgery H/O shoulder surgery Social History household members: spouse Smoking Status: Never smoker alcohol intake: current alcohol intake frequency: holidays/special occasions only substance use type: does not use ROS ROS ED ROS Narrative Review of systems positive for chest pain and pressure, lightheadedness. She has had bilateral leg swelling status post CABG surgery. No exacerbating or alleviating factors. Triggered by argument with family. EXAM Physical Exam Narrative Exam Narrative: Afebrile. Vital signs noted. Nontoxic-appearing. Cardiovascular examination reveals a regular rate and rhythm. Lungs are clear to auscultation bilaterally. Abdomen soft and nontender with positive bowel sounds. No guarding or rebound. Neurological examination shows her to be awake, alert, oriented, and interactive, answering questions appropriately. Trace pedal edema bilaterally. Const Vital Signs: 07/14/25 18:12 07/14/25 19:12 07/14/25 19:17 Temperature 98.1 F Temperature Source Temporal Pulse Rate 80 68 Respiratory Rate 16 20 H Respiratory Effort Blood Pressure 152/70 H 153/62 H Blood Pressure Mean 97 92 Pulse Ox 100 100 Oxygen Delivery Method Room Air Room Air 07/14/25 19:19 07/14/25 20:00 07/14/25 21:00 Temperature Temperature Source Pulse Rate 70 69 Respiratory Rate 18 21 H Respiratory Effort Normal Non-Labored Blood Pressure 150/66 H 147/65 H Blood Pressure Mean 94 92 Pulse Ox 100 100 Oxygen Delivery Method Room Air Room Air MDM MDM MDM Narrative Medical decision making narrative: Differential diagnosis includes but not limited to ACS versus pneumonia versus pneumothorax. History and physical does not support pneumonia or pneumothorax. Her pulse ox 100% on room air without evidence of hypoxia. EKG was obtained and interpreted by myself independently as normal sinus rhythm at 76 bpm without ectopy or acute ST changes. No STEMI. Chest pain workup was pursued. Her initial high-sensitivity troponin is 19, but she has history of CABG and coronary artery disease. In review of prior laboratory work it was elevated at 93 when she had her NSTEMI. I reviewed her laboratory work and she has a normal white count of 6.5 with hemoglobin 11.3, hematocrit 34.5, platelet count 355. Sodium normal at 135 with potassium 4.3, BUN of 22 and creatinine 0.68, glucose 115, initial high-sensitivity troponin is 19 with repeat being 24 and acceptable delta troponin. I do not feel that she requires a 4-hour delta troponin. She feels improved. On my individual interpretation of her chest x-ray, there is no acute process. I reviewed the radiology report which confirms my independent interpretation. At this point in time, I do feel she can be discharged to follow-up with her primary care physician and/or pumper gauger apprentice, and her surgeon as scheduled. Return instructions to the emergency department were reviewed. Disposition is discharged home in stable condition. History & Record Review Discussion w/independent historian: Patient Additional record(s) reviewed:: Prior labs (Elevated troponin) Lab Data Attestation: I reviewed the patient's lab results. Labs: Laboratory Results - last 24 hr 07/14/25 07/14/25 18:20 20:16 WBC 6.5 RBC 3.66 L Hgb 11.3 L Hct 34.5 L MCV 94.3 MCH 30.9 MCHC 32.8 RDW Std Deviation 51.6 H RDW Coeff of Sushant 14.8 H Plt Count 355 MPV 9.9 Immature Gran % (Auto) 0.300 Neut % (Auto) 49.2 Lymph % (Auto) 38.2 [place] % (Auto) 10.6 H Eos % (Auto) 1.1 Baso % (Auto) 0.6 Absolute Neuts (auto) 3.2 Absolute Lymphs (auto) 2.48 Nucleated RBC % 0 Sodium 135 Potassium 4.3 Chloride 100 Carbon Dioxide 22.2 Anion Gap 13 BUN 22 H Creatinine 0.68 L Estim Creat Clear Calc 57.46 Est GFR (MDRD) Non-Af 91 BUN/Creatinine Ratio 31.7 H Glucose 115 H Calcium 9.4 Troponin T High Sens 19 H D Troponin T Hi Sens 2 Hr 20 H Radiography Diagnostic Testing: Clinical Impression(s) from Imaging Studies Chest X-Ray 07/14/25 19:16 IMPRESSION: No acute process is detected. Reading Location: [facility] Discharge Plan Triage Chief Complaint: Chest Pain ED Provider: Tremaine You Dx/Rx/DC Orders Clinical Impression: Chest pain, History of coronary artery bypass graft x 3 Instructions: ED Chest Pain, Uncertain Cause Prescriptions: No Action levothyroxine 75 mcg tablet 75 mcg PO DAILY Patient Comments: [NO ORIGINAL SIG] pantoprazole 20 mg tablet,delayed release (DR/EC) 20 mg PO QDAY nifedipine 30 mg tablet extended release 30 mg PO DAILY tramadol 50 mg tablet 50 mg PO PRN alendronate 70 mg tablet 70 mg PO .weekly Patient Comments: [NO ORIGINAL SIG] Rx Instructions: Take on Wednesdays tizanidine 4 mg tablet 4 mg PO QHS amitriptyline 50 MG tablet 50 mg PO DAILY lubiprostone 24 mcg capsule 24 mcg PO BID venlafaxine 37.5 mg capsule,extended release 24hr 37.5 mg PO DAILY Primary Care Provider: Narinder Crum Referrals: Narinder Crum MD [Primary Care Provider] - Activity Restrictions/Additional Instructions: Follow-up with your pumper gauger apprentice within 1 week as needed. Follow-up with your surgeon as scheduled. Return to the emergency department with increased chest pain, new or worsening symptoms. Print Language: Lao Disposition Disposition: Home, Self Care
[2025-07-14 19:57] LABS: Anion Gap 13 (5-15); BUN 22 mg/dL (4-19); BUN/Creat Ratio 31.7 RATIO (10-20); Calcium,Total 9.4 mg/dL (7.6-11.0); Carbon Dioxide 22.2 mmol/L (21.0-32.0); Chloride 100 mmol/L (98-108); Estimated Creatinine Clearance 57.46 ml/min (50-250); Glucose 115 mg/dL (70-99); Potassium 4.3 mmol/L (3.3-5.1)
[2025-07-14 20:00] VITALS: BP 150/66; PULSE 70; RESP 18; O2SAT 100
--- OUTSIDE RECORDS SUMMARY | 2025-07-14 20:03 | XMS RPT_ITS | CCD ---
Author Organization [facility] Care Team Providers Care Editor In Chief Newspaper Name Role Phone NARINDER CRUM A Admitting Unavailable CRUMNARINDER A Attending Unavailable NARINDER CRUM A Primary Care Unavailable CRUM, NARINDER A Consulting Unavailable PROVIDER, UNKNOWN Consulting Unavailable BRANDON SEXTON PAC Admitting Unavailable BRANDON SEXTON PAC Attending Unavailable BRANDON SEXTON PAC Primary Care Unavailable CRUM, NARINDER A Consulting Unavailable PROVIDER, UNKNOWN Consulting Unavailable KRISTOPHER, CHERY DPM Admitting Unavailable CHERY SUMMERS DPCarmenza Attending Unavailable KRISTOPHER, CHERY DPM Primary Care Unavailable BALJIT CRUMIC A Consulting Unavailable PROVIDER, UNKNOWN Consulting Unavailable BISI, DR JACE Salas Admitting Unavailable BISI, DR JACE Salas Attending Unavailable BISI, DR JACE Salas Primary Care Unavailable CRUM, NARINDER A Consulting Unavailable CRUM, NARINDER A Referring Unavailable PROVIDER, UNKNOWN Consulting Unavailable HORN, CHERY DPM Admitting Unavailable HORN, CHERY DPM Attending Unavailable HORN, CHERY DPM Primary Care Unavailable ARLIN, NARINDER A Consulting Unavailable PROVIDER, UNKNOWN Consulting Unavailable Dr. Narinder Crum Primary Care Provider Dr. Narinder Crum Referring Provider 1([phone] BRAYDEN Hernandez Attending Provider Dr. Narinder Crum MD Primary Care Provider ANNETTE TRACY Attending Provider [phone] ANNETTE TRACY Referring Provider Dr. Narinder Crum MD Referring Provider [phone] Ruthann Beaulieu Attending Provider Dr. Edil Hong MD Attending Provider Dr. Narinder Crum MD Primary Care Provider KRYSTEN MARIE Attending Provider FRANK KRYSTEN Referring Provider Arlin NUÑEZ, Dr. Barcenas Primary Care Provider Ajay NUÑEZ, Dr. Schwartz Emergency Provider Maria Teresa NUÑEZ, Dr. Hui Carias Admit Provider Maria Teresa NUÑEZ, Dr. Hui Carias Attending Provider Maria Teresa NUÑEZ, Dr. Hui Carias Other Provider Yandel NUÑEZ, Dr. Mohamud Other Provider Jazmine KAUR, Dr. Ugalde Attending Provider Jazmine KAUR, Dr. Ugalde Other Provider Hal NUÑEZ, Dr. Solo Attending Provider [phone] Crum, Narinder A Primary Care Provider [phone] Maria Teresa, Hui Unavailable Arlin Narinder A Primary Care Provider [phone] Maria Teresa, Hui Unavailable White, Hui Unavailable Carly HAMILTON, Janelle Unavailable Unavailable Carly HAMILTON, Janelle Unavailable Unavailable TrishTha KAUR, Dr. Asif Emergency Provider ARLIN NUÑEZ, NARINDER A Primary Care Physician [phone] Hui Morel Unavailable Carly HAMILTON, Janelle Unavailable Unavailable Cassandra Hare I. Unavailable ARLIN NUÑEZ, NARINDER A Primary Care Unavailable [facility] Martinez DO Attending Unavailable ARLIN NUÑEZ, NARINDER A Primary Care Unavailable RUTHANN BALTAZAR Attending Unavailable THELMA HAMM Referring Unavailable CRUM, NARINDER Primary Care Unavailable ANDERS JOHNSTON Admitting Unavailable ANDERS JOHNSTON Attending Unavailable GABRIELLE HE Consulting Unavailable CRUM, NARINDER Primary Care Unavailable MARRY BERGER Admitting Unavailable FIONA FRANCE Attending Unavailable CrumNarinder Referring Unavailable Crum, Narinder Primary Care Unavailable Bong Helton Attending Unavailable Crum, Narinder Primary Care Unavailable Hui Morel Admitting Unavailable Hui Morel Consulting Unavailable Hui Morel Attending Unavailable Nagalisa, Nagapradee Consulting UnavailEdil Wren Attending Unavailable Thelma Hamm Consulting Unavailable Thelma Hmam Attending Unavailable Crum, Narinder Primary Care Unavailable Crum, Narinder Referring Unavailable Ruthann Baltazar Attending Unavailable Crum, Narinder Primary Care Unavailable Edil Hong Attending Unavailable XAVI TAYLOR Attending Unavailable BRANDON, XAVI Referring Unavailable Crum, Narinder Primary Care Unavailable Crum, Narinder Primary Care Unavailable Yefri Ritter Attending Unavailabl e Crum, Narinder Primary Care Unavailable XAVI TAYLOR Attending Unavailable BRANDON, XAVI Referring Unavailable Thelma Hamm Attending Unavailable Nagajoreta, Nagapradee Consulting Unavailabl e Hui Morel Admitting Unavailable Crum, Narinder Primary Care Unavailable Hui Morel Consulting Unavailable Allergies Allergy Classification Reported Allergen(s) Allergy Type Date of Onset Reaction(s) Facility (15 sources) cyclobenzaprine; Translations: [cyclobenzaprine HCl] Drug Allergy 11-12-20 15 Other [facility] Comment on above: FEEL DISCONNECTED (19 sources) Promethazine; Translations: [promethazine] Drug Allergy 12-09-19 Other [facility] (14 sources) Goswmiy-Euu-Lix Reductase Inhibitor; Translations: [Qouudtz-Mfw-Mdu Reductase Inhibitor] Propensity to adverse reactions 12-09-19 Pain in joints [facility] (1 source) cyclobenzaprine Drug Allergy [facility] (1 source) pantoprazole Drug Allergy [facility] (1 source) Promethazine Drug Allergy [facility] (10 sources) cyclobenzaprine; Translations: [cyclobenzaprine] Drug Allergy 06-14-20 Itching [facility] (1 source) Melatonin; Translations: [melatonin] Drug Allergy [facility] (1 source) Promethazine Drug Allergy 06-28-20 [facility] Repository Medications Current Medications Medication Drug Class(es) Dates Sig (Normalized) Sig (Original) acetaminophen 1000 mg oral tablet (14 sources) Start: 06-30-2025 End: 07-06-2025 take 1 dose by mouth three times daily acetaminophen Dose : 1,000 mg =, Oral, TID, 0 Refill(s) Start Date: 06/30/25 Stop Date: 07/06/25 Status: Ordered Medication Dispense Status: Completed Total Allowed Fills: 1 Fills Dispensed: 0 Start: 06-26-2025 End: 06-27-2025 1,000 mg, Oral, 3 times randolph y, First dose on Tue06/26/25 at 1400, Maximum dose of acetaminophen is 4000 mg from all sources in 24 hours. Start: 06-22-2025 End: 07-02-2025 take 2 tablets by mouth every eight hours acetaminophen (Tylenol) 500 MG tablet Take 2 tablets (1,000 mg) by mouth every 8 hours for 10 days. 06/22/2025 07/02/2025 Start: 06-18-2025 End: 06-22-2025 take 1 tablet by mouth every eight hours Start: 06-17-2025 End: 06-18-2025 alendronic acid 70 mg oral tablet (5 sources) Bisphosphonate Start: 01-25-2025 take 1 tablet by mouth every week Alendronate 70 mg tablet Active 70 mg PO .weekly January 25, 2025 1:00am Take on Wednesdays amitriptyline hydrochloride 50 mg oral tablet (16 sources) Tricyclic Antidepressant Start: 11-12-2015 End: 06-18-2025 take 1 tablet by mouth once daily Amitriptyline 50 MG tablet Active 50 mg PO DAILY November 12, 2015 1:00am aspirin 81 mg chewable tablet (15 sources) Platelet Aggregation Inhibitor, Nonsteroidal Anti-inflammatory Drug Start: 06-19-2025 End: 06-23-2026 aspirin 81 MG chewable tablet Chew 1 tablet (81 mg) daily. 30 tablet 1 06/23/2025 06/23/2026 Active Start: 06-14-2025 End: 06-18-2025 Chondroitin Sulf A Sod (Bulk ) (9 sources) Start: 11-12-2015 Chondroitin Bernal lf A Sod (Bulk) Active 1200 MG MC TWICE A DAY November 12, 2015 9:11am Start: 11-12-2015 Chondroitin Bernal lf A Sod (Bulk) Active 1200 MG MC TWICE A DAY November 12, 2015 12:00am Start: 11-12-2015 Chondroitin Bernal lf A Sod (Bulk) Active 1200 MG MC TWICE A DAY November 12, 2015 1:00am clopidogrel 75 mg oral tablet (13 sources) [id number] Platelet Inhibitor Start: 06-22-2025 End: 06-23-2026 take 1 tablet by mouth once daily clopidogrel (Plavix) 75 MG tablet Take 1 tablet (75 mg) by mouth daily. 30 tablet 1 06/23/2025 06/23/2026 Active DULoxetine 20 mg delayed release oral capsule (7 sources) Serotonin and Norepinephrine Reuptake Inhibitor Start: 06-26-2025 End: 08-26-2025 take 1 capsule by mouth once daily DULoxetine (Cymbalta) [address] capsule Take 1 capsule (20 mg) by mouth daily. Do not crush or chew. 30 capsule 1 06/27/2025 08/26/2025 Active furosemide 40 mg oral tablet (8 sources) Loop Diuretic Start: 06-23-2025 End: 06-28-2025 take 1 tablet by mouth once daily furosemide (Lasix) 40 MG tablet Take 1 tablet (40 mg) by mouth daily for 5 days. 5 tablet 06/23/2025 Active Start: 06-21-2025 End: 06-21-2025 Vzzqfbkmaie-Snfqgkgbp-Vrb C- Mn (9 sources) Start: 11-12-2015 Glucosamine-Ch ondroit-Vit C-Mn Active 1 EACH PO TWICE A DAY November 12, 2015 9:11am Start: 11-12-2015 Glucosamine-Ch ondroit-Vit C-Mn Active 1 EACH PO TWICE A DAY November 12, 2015 12:00am Start: 11-12-2015 Glucosamine-Ch ondroit-Vit C-Mn Active 1 EACH PO TWICE A DAY November 12, 2015 1:00am levothyroxine (20 sources) l-Thyroxine Start: 06-30-2025 levothyroxine Dose : 50 mcg =, Oral, acBreakfast, 0 Refill(s) Start Date: 06/30/25 Status: Ordered Medication Dispense Status: Completed Total Allowed Fills: 1 Fills Dispensed: 0 Start: 06-20-2025 End: 06-23-2026 take 1 tablet by mouth once daily before breakfast levothyroxine (Synthroid, Levoxyl) 50 MCG tablet Take 1 tablet (50 mcg) by mouth every morning (before breakfast). 30 tablet 1 06/23/2025 06/23/2026 Active Start: 01-25-2025 End: 06-18-2025 take 1 tablet by mouth once daily [...] MCG PO DAILY November 12, 2015 1:00am lidocaine 0.04 mg/mg medicated patch (11 sources) Antiarrhythmic, Amide Local Anesthetic Start: 06-26-2025 End: 07-05-2025 apply 1 dose transdermal route once daily Lidocaine 4 % patch Place 1 patch on the skin daily for 7 days. 7 patch 06/28/2025 07/05/2025 Active Start: 06-18-2025 End: 06-22-2025 Start: 06-18-2025 End: 06-18-2025 Infiltration, As needed, Sta rting on Tue06/18/25 at 1442, Anesthesia Intraprocedure Start: 06-16-2025 End: 06-18-2025 lubiprostone 0.024 mg oral capsule (6 sources) Chloride Channel Activator Start: 06-13-2025 End: 06-22-2025 take 1 capsule by mouth twice daily Lubiprostone 24 mcg capsule Active 24 ug PO TWICE A DAY June 13, 2025 12:00am Magnesium (14 sources) Start: 11-12-2015 take 400 mg by [...] TWICE A DAY November 12, 2015 1:00am melatonin 3 mg oral tablet (8 sources) Start: 06-24-2025 End: 07-27-2025 take 1 tablet by mouth once daily melatonin 3 MG tablet Take 1 tablet (3 mg) by mouth Nightly. 30 tablet 06/27/2025 07/27/2025 Active Start: 06-14-2025 End: 06-16-2025 24 hr metoprolol succinate 50 mg extended release oral tablet (16 sources) beta-Adrenergic Karlo Start: 06-22-2025 End: 06-23-2026 take 1 tablet by mouth once daily metoprolol succinate XL (Toprol-XL) 50 MG 24 hr tablet Take 1 tablet (50 mg) by mouth daily. Do not crush or chew. 30 tablet 1 06/23/2025 06/23/2026 Active Start: 06-20-2025 End: 06-22-2025 Multivitamins,Therapeutic (14 sources) Start: 11-12-2015 Multivitamins, Therapeutic Active November 12, 2015 9:11am Start: 11-12-2015 End: 01-25-2025 Multivitamins,Therapeutic Di scontinued November 12, 2015 1:00am January 25, 2025 2:12pm Start: 11-12-2015 Multivitamins, Therapeutic Active November 12, 2015 12:00am Start: 11-12-2015 Multivitamins, Therapeutic Active November 12, 2015 1:00am potassium chloride 20 meq extended release oral tablet (6 sources) Start: 06-23-2025 End: 06-28-2025 take 1 tablet by mouth once daily potassium chloride CR (K-Tab) 20 MEQ ER tablet Take 1 tablet (20 mEq) by mouth daily for 5 days. Do not crush, chew, or split. 5 tablet 06/23/2025 06/28/2025 Active Start: 06-19-2025 End: 06-22-2025 rosuvastatin 40 mg oral capsule (13 sources) HMG-CoA Reductase Inhibitor Start: 06-30-2025 take 1 dose by mouth once daily rosuvastatin Dose : 40 mg =, Oral, qDay, 0 Refill(s) Start Date: 06/30/25 Status: Ordered Medication Dispense Status: Completed Total Allowed Fills: 1 Fills Dispensed: 0 Start: 06-24-2025 End: 06-27-2025 take 40 mg by mouth once daily 40 mg, Oral, Daily, Fir st dose on 06/24/25 at 2100 Start: 06-23-2025 End: 06-23-2026 take 1 tablet by mouth once daily rosuvastatin (Crestor) 40 MG tablet Take 1 tablet (40 mg) by mouth daily. 30 tablet 1 06/23/2025 06/23/2026 Active Start: 06-19-2025 End: 06-22-2025 tiZANidine 4 mg oral tablet (13 sources) Central alpha-2 Adrenergic Agonist Start: 01-25-2025 take 1 tablet by mouth every eight hours as needed tiZANidine (Zanaflex) 4 MG tablet 4 mg every 8 hours as needed for muscle spasms. 04/08/2025 Active Start: 01-25-2025 End: 06-18-2025 traMADol hydrochloride 50 mg oral tablet (5 sources) Opioid Agonist Start: 01-25-2025 Tramadol 50 mg tablet Active 50 mg PO NEEDED January 25, 2025 1:00am 24 hr venlafaxine 37.5 mg extended release oral capsule (20 sources) Serotonin and Norepinephrine Reuptake Inhibitor Start: 06-13-2025 End: 06-18-2025 take 1 capsule by mouth once daily [...] Sig (Original) acetylcysteine 200 mg/ml inhalation solution (14 sources) Antidote, Mucolytic, Antidote for Acetaminophen Overdose Start: 11-12-2015 End: 01-25-2025 take 600 mg by mouth twice daily Acetylcysteine 6,000 MG/30 ML solution Discontinued 600 mg PO TWICE A DAY November 12, 2015 1:00am January 25, 2025 2:12pm 20 ml albumin human, mcc 250 mg/ml injection (3 sources) Human Serum Albumin Start: 06-18-2025 End: 06-22-2025 Start: 06-18-2025 End: 06-18-2025 IntraVENous, As needed, Star ting on Tue06/18/25 at 1406, Anesthesia Intraprocedure albuterol 0.833 mg/ml / ipratropium bromide 0.167 mg/ml inhalation solution (2 sources) Anticholinergic, beta2-Adrenergic Agonist Start: 06-18-2025 End: 06-22-2025 aminocaproic acid (Amicar) 10g in sodium chloride 0.9% 290 mL infusion (1 source) Start: 06-18-2025 End: 06-18-2025 IntraVENous, Continuous PRN, Starting on Tue06/18/25 at 1224, Anesthesia Intraprocedure amLODIPine 5 mg oral tablet (14 sources) Dihydropyridine Calcium Channel Karlo Start: 11-12-2015 End: 01-25-2025 take 1 tablet by mouth once daily Amlodipine 5 MG tablet Discontinued 5 mg PO DAILY November 12, 2015 1:00am January 25, 2025 2:12pm ascorbic acid 500 mg oral tablet (14 sources) Vitamin C Start: 11-12-2015 End: 01-25-2025 take 2 tablets by mouth once daily Ascorbic Acid (Vitamin C) (Vitamin C) 500 MG tablet Discontinued 1000 mg PO DAILY@0800 November 12, 2015 1:00am January 25, 2025 2:12pm atorvastatin 40 mg oral tablet (14 sources) HMG-CoA Reductase Inhibitor Start: 11-12-2015 End: 06-13-2025 take 1 tablet by mouth at bedtime Atorvastatin 40 MG tablet Discontinued 40 mg PO AT BEDTIME November 12, 2015 1:00am June 13, 2025 7:43pm biotin 10 mg oral capsule (14 sources) Start: 11-12-2015 End: 01-25-2025 take 1 capsule by mouth once daily Biotin (Chris Biotin) 10,000 MCG capsule Discontinued 14124 ug PO DAILY November 12, 2015 1:00am January 25, 2025 2:12pm bisacodyl 10 mg rectal suppository (4 sources) Stimulant Laxative Start: 06-24-2025 End: 06-27-2025 take 10 mg rectal route every twenty-four hours as needed for constipation Start: 06-19-2025 End: 06-22-2025 10 ml calcium chloride 100 mg/ml prefilled syringe (1 source) Start: 06-18-2025 End: 06-18-2025 IntraVENous, As needed, Starting on Tue06/18/25 at 1448, Anesthesia Intraprocedure calcium chloride 0.0014 meq/ml / potassium chloride 0.004 meq/ml / sodium chloride 0.103 meq/ml / sodium lactate 0.028 meq/ml injectable solution (2 sources) Start: 06-18-2025 End: 06-22-2025 calcium citrate 950 mg / cholecalciferol 250 unt oral tablet (14 sources) Vitamin D Start: 11-12-2015 End: 01-25-2025 Calcium Citrate-Vitamin D3 1 EACH tablet Discontinued 1 NMA PO TWICE A DAY November 12, 2015 1:00am January 25, 2025 2:12pm Start: 11-12-2015 Calcium Citrat e-Vitamin D3 Active 1 EACH PO TWICE A DAY November 12, 2015 1:00am 100 ml calcium gluconate 20 mg/ml injection (2 sources) Start: 06-18-2025 End: 06-22-2025 carvedilol 6.25 mg oral tabl et (4 sources) alpha-Adrenergic Karlo, beta-Adrenergic Karlo Start: 06-15-2025 End: 06-18-2025 Start: 06-14-2025 End: 06-15-2025 ceFAZolin 1000 mg injection (1 source) Cephalosporin Antibacterial Start: 06-18-2025 End: 06-18-2025 IntraVENous, As needed, Starting on Tue06/18/25 at 1220, Anesthesia Intraprocedure ceFAZolin (Ancef) 2,000 mg in sodium chloride 0.9 % 100 mL IVPB (2 sources) Start: 06-18-2025 End: 06-20-2025 take 2000 mg intravenously every eight hours Chlorhexidine (8 sources) Start: 06-19-2025 End: 06-22-2025 Start: 06-17-2025 End: 06-21-2025 cholecalciferol 9.52 unt/ml / glucose 357 mg/ml oral gel (2 sources) Vitamin D Start: 06-18-2025 End: 06-22-2025 Chondroitin Sulf A Sod (Bulk) 100 GM powder (5 sources) Start: 11-12-2015 End: 01-25-2025 Chondroitin Sulf A Sod (Bulk) 100 GM powder Discontinued 1200 mg MC TWICE A DAY November 12, 2015 1:00am January 25, 2025 2:12pm 1 ml dexamethasone phosphate 10 mg/ml injection (1 source) Corticosteroid Start: 06-18-2025 End: 06-18-2025 IntraVENous, As needed, Starting on Tue06/18/25 at 1204, Anesthesia Intraprocedure docusate sodium 50 mg / sennosides, mcc 8.6 mg oral tablet (8 sources) Start: 06-25-2025 End: 06-27-2025 take 2 tablets by mouth every twenty-four hours as needed for constipation 2 tablet, Oral, Daily PRN, constipation, Starting on Tue06/25/25 at 2300 Start: 06-14-2025 End: 06-22-2025 0.4 ml enoxaparin sodium 100 mg/ml prefilled syringe (2 sources) Low Molecular Weight Heparin Start: 06-20-2025 End: 06-22-2025 1 ml EPINEPHrine 1 mg/ml injection (1 source) alpha-Adrenergic Agonist, beta-Adrenergic Agonist, Catecholamine Start: 06-18-2025 End: 06-18-2025 Spinal, As needed, Starting on Tue06/18/25 at 1304, Anesthesia Intraprocedure EPINEPHrine 5 mg in sodium chloride 250 mL infusion (Oxk-Hiqwhq-Lnbcy) (1 source) Start: 06-18-2025 End: 06-18-2025 IntraVENous, Continuous PRN, Starting on Tue06/18/25 at 1448, Anesthesia Intraprocedure EPINEPHrine 5mg in 0.9% sodium chloride 250 mL infusion (weight-based) (2 sources) Start: 06-18-2025 End: 06-19-2025 10 ml esmolol hydrochloride 10 mg/ml injection (1 source) beta-Adrenergic Karlo Start: 06-18-2025 End: 06-18-2025 IntraVENous, As needed, Starting on Tue06/18/25 at 1203, Anesthesia Intraprocedure 20 ml etomidate 2 mg/ml injection (1 source) General Anesthetic Start: 06-18-2025 End: 06-18-2025 IntraVENous, As needed, Starting on Tue06/18/25 at 1203, Anesthesia Intraprocedure ezetimibe 10 mg oral tablet (14 sources) Dietary Cholesterol Absorption Inhibitor Start: 06-24-2025 End: 06-27-2025 take 10 mg by mouth once daily 10 mg, Oral, Nightly, First dose on Tue06/24/25 at 2100 Start: 06-22-2025 End: 06-22-2025 Start: 06-22-2025 End: 06-22-2025 Start: 06-22-2025 End: 06-22-2026 take 1 tablet by mouth once daily ezetimibe (Zetia) 10 MG tablet Take 1 tablet (10 mg) by mouth Nightly. 30 tablet 1 06/22/2025 06/22/2026 Active Start: 06-17-2025 End: 06-18-2025 20 ml fentaNYL 0.05 mg/ml injection (3 sources) Opioid Agonist Start: 06-18-2025 End: 06-18-2025 IntraVENous, As needed, Starting on Tue06/18/25 at 1203, Anesthesia Intraprocedure Start: 06-18-2025 End: 06-18-2025 glucagon (rdna) 1 mg injection (2 sources) Antihypoglycemic Agent Start: 06-18-2025 End: 06-22-2025 Glucosamine-Owen droit-Vit C-Mn 1 EACH capsule (5 sources) Start: 11-12-2015 End: 01-25-2025 take 1 capsule by mouth twice daily Glucosamine-Chondr oit-Vit C-Mn 1 EACH capsule Discontinued 1 NMA PO TWICE A DAY November 12, 2015 1:00am January 25, 2025 2:12pm 50 ml glucose 50 mg/ml injection (4 sources) Start: 06-18-2025 End: 06-22-2025 Start: 06-18-2025 End: 06-22-2025 1 ml haloperidol 5 mg/ml prefilled syringe (2 sources) Typical Antipsychotic Start: 06-26-2025 End: 06-27-2025 inject 0.5 mg by intramuscular injection every six hours as needed 0.5 mg, IntraMUSCular, Every 6 hours PRN, agitation, second line for agitation, [place] PRN for ONLY if danger to self/others/treatment, Starting on Tue06/26/25 at 1329, IM route of administration preferred. Because of the risk of TdP and QT prolongation, ECG monitoring is recommended if haloperidol is given IV 250 ml heparin sodium, porcine 100 unt/ml injection (5 sources) Unfractionated Heparin, Anti-coagulant Start: 06-14-2025 End: 06-18-2025 Start: 06-14-2025 End: 06-18-2025 1 ml HYDROmorphone hydrochloride 1 mg/ml cartridge (4 sources) Opioid Agonist Start: 06-18-2025 End: 06-19-2025 hydrOXYzine pamoate 25 mg oral capsule (2 sources) Antihistamine Start: 06-14-2025 End: 06-18-2025 take 25 mg by mouth every six hours as needed for anxiety 100 ml insulin, regular, human 1 unt/ml injection (3 sources) Insulin Start: 06-18-2025 End: 06-19-2025 iopamidol (Isovue-370) 76 % injection 75 mL (2 sources) Start: 06-24-2025 End: 06-24-2025 take 75 mL intravenously once as needed 75 mL, IntraVENous, IMG once PRN, contrast, Starting on Tue06/24/25 at 1032, For 1 dose 24 hr isosorbide mononitrate 30 mg extended release oral tablet (2 sources) Nitrate Vasodilator Start: 06-17-2025 End: 06-18-2025 1 ml ketorolac tromethamine 15 mg/ml cartridge (4 sources) Nonsteroidal Anti-inflammatory Drug, Cyclooxygenase Inhibitor Start: 06-19-2025 End: 06-20-2025 take 15 mg intravenously every six hours labetalol hydrochloride 5 mg/ml injectable solution (2 sources) beta-Adrenergic Karlo Start: 06-24-2025 End: 06-27-2025 10 mg, IntraVENous, Every 10 min PRN, high blood pressure, Starting on Tue06/24/25 at 1403, Administer 10 mg IV every 10 minutes if SBP is 220 mmHg or greater OR DBP is 120 mmHg or greater. Notify provider if SBP is 220 mmHg or greater OR DBP is 120 mmHg or greater after 3 consecutive doses. lactulose 667 mg/ml oral solution (4 sources) Osmotic Laxative Start: 06-20-2025 End: 06-21-2025 Start: 06-16-2025 End: 06-18-2025 1 ml LORazepam 2 mg/ml injection (2 sources) Benzodiazepine Start: 06-24-2025 End: 06-24-2025 0.5 mg, IntraVENous, Once, On Tue06/24/25 at 1405, For 1 dose, For MRI For IV doses dilute dose with 1ml NS. magnesium hydroxide 80 mg/ml oral suspension (6 sources) Start: 06-14-2025 End: 06-22-2025 50 ml magnesium sulfate 40 mg/ml injection (1 source) Start: 06-18-2025 End: 06-18-2025 IntraVENous, Administer over 2 Hours, As needed, Starting on Tue06/18/25 at 1425, Anesthesia Intraprocedure metaxalone 800 mg oral tablet (14 sources) Start: 11-12-2015 End: 01-25-2025 take 1 tablet by mouth twice daily Metaxalone 800 MG tablet Discontinued 800 mg PO TWICE A DAY November 12, 2015 1:00am January 25, 2025 2:12pm 2 ml metoclopramide 5 mg/ml prefilled syringe (2 sources) Dopamine-2 Receptor Antagonist Start: 06-19-2025 End: 06-21-2025 take 10 mg intravenously every six hours 2 ml midazolam 1 mg/ml injection (1 source) Benzodiazepine Start: 06-18-2025 End: 06-18-2025 IntraVENous, As needed, Starting on Tue06/18/25 at 1154, Anesthesia Intraprocedure mupirocin 0.02 mg/mg topical ointment (6 sources) RNA Synthetase Inhibitor Antibacterial Start: 06-18-2025 End: 06-21-2025 Start: 06-18-2025 End: 06-18-2025 Start: 06-14-2025 End: 06-18-2025 1 ml naloxone hydrochloride 0.4 mg/ml injection (4 sources) Opioid Antagonist Start: 06-24-2025 End: 06-27-2025 0.4 mg, IntraVENous, Every 5 min PRN, opioid reversal, respiratory depression, Starting on Tue06/24/25 at 1406, +++ For RR Start: 06-19-2025 End: 06-22-2025 NIFEdipine (19 sources) Dihydropyridine Calcium Channel Karlo Start: 07-01-2025 End: 07-01-2025 take 1 tablet by mouth in the morning NIFEdipine Start: 07/01/25 9:00:00 AM EDT, Dose = 30 mg, = 1 tab(s), Oral, 0, 06/30/25 8:36:00 EDT Start Date: 07/01/25 Stop Date: 07/01/25 Status: Completed Medication Dispense Status: Completed Total Allowed Fills: 1 Fills Dispensed: 0 Start: 06-30-2025 take 1 dose by mouth once randolph y NIFEdipine Dose : 30 mg =, Oral, qDay, 0 Refill(s) Start Date: 06/30/25 Status: Ordered Medication Dispense Status: Completed Total Allowed Fills: 1 Fills Dispensed: 0 Start: 06-21-2025 End: 06-23-2026 take 1 tablet by mouth once daily NIFEdipine XL (Procardia XL) 30 MG 24 hr tablet Take 1 tablet (30 mg) by mouth daily. Do not crush, chew, or split. 30 tablet 1 06/23/2025 06/23/2026 Active Start: 01-25-2025 take 1 tablet by dennis once daily Nifedipine 30 mg tablet extended release Active 30 mg PO DAILY January 25, 2025 1:00am 250 ml nitroglycerin 0.2 mg/ ml injection (6 sources) Nitrate Vasodilator Start: 06-14-2025 End: 06-18-2025 Start: 06-14-2025 End: 06-14-2025 100 ml sodium nitroprusside 0.5 mg/ml injection (2 sources) Start: 06-18-2025 End: 06-19-2025 norepinephrine (Levophed) 16 mg in 0.9% sodium chloride 250 mL infusion (weight based) (premix) (2 sources) Start: 06-18-2025 End: 06-19-2025 nystatin [id number] unt/ml oral suspension (9 sources) Polyene Antifungal Start: 01-03-2023 End: 01-24-2023 [...] B UCCAL THREE TIMES A DAY 250 January 03, 2023 1:00am January 24, 2023 1:03am administer 1/2 of dose in each side of the mouth; no eating/ drinking x30 minutes after each dose omeprazole 20 mg delayed release oral capsule (14 sources) Proton Pump Inhibitor Start: 11-12-2015 End: 01-25-2025 take 1 capsule by mouth once daily Omeprazole 20 MG capsule Discontinued 20 mg PO DAILY November 12, 2015 1:00am January 25, 2025 2:10pm 2 ml ondansetron 2 mg/ml injection (1 source) Serotonin-3 Receptor Antagonist Start: 06-18-2025 End: 06-18-2025 IntraVENous, As needed, Starting on Tue06/18/25 at 1204, Anesthesia Intraprocedure ondansetron ODT (Zofran-ODT) disintegrating tablet 4 mg (2 sources) Start: 06-24-2025 End: 06-27-2025 take 1 tablet by mouth every eight hours as needed for nausea and vomiting ondansetron ODT (Zofran-ODT) disintegrating tablet 4 mg oxyCODONE (10 sources) Opioid Agonist Start: 06-26-2025 End: 06-27-2025 take 1 tablet by mouth every six hours as needed for pain oxyCODONE (Roxicodone) immediate release tablet 2.5 mg Start: 06-22-2025 End: 06-27-2025 take 1 tablet by mouth every six hours as needed for pain 5 mg, Oral, Every 6 hours PRN, severe pain (7-10), acute post surgical pain, Starting on Tue06/24/25 at 1403 pantoprazole 40 mg delayed r elease oral tablet (9 sources) Proton Pump Inhibitor Start: 06-20-2025 End: 06-22-2025 Start: 06-15-2025 End: 06-18-2025 Start: 01-25-2025 take 1 tablet by dennis once daily Pantoprazole 20 mg tablet,delayed release (DR/EC) Active 20 mg PO daily January 25, 2025 1:00am pantoprazole (ProtoNix) 40 mg in sodium chloride (PF) 0.9 % 10 mL injection (2 sources) Start: 06-19-2025 End: 06-19-2025 perfusion prime builder (1 source) Start: 06-18-2025 End: 06-18-2025 Perfusion, Continuous PRN, Starting on Tue06/18/25 at 1352, Anesthesia Intraprocedure 1 ml phenylephrine hydrochloride 10 mg/ml injection (1 source) alpha-1 Adrenergic Agonist Start: 06-18-2025 End: 06-18-2025 IntraVENous, As needed, Starting on Tue06/18/25 at 1353, Anesthesia Intraprocedure Phenylephrine HCl (Pressors) 1 MG/10ML injection (1 source) Start: 06-18-2025 End: 06-18-2025 IntraVENous, As needed, Starting on Tue06/18/25 at 1204, Anesthesia Intraprocedure polyethylene glycol 3350 [id number] mg powder for oral solution (6 sources) Osmotic Laxative Start: 06-24-2025 End: 06-27-2025 take 17 g by mouth every twenty-four hours as needed for constipation 17 g, Oral, Daily PRN, constipation, Starting on Tue06/24/25 at 1403, 1st line for treatment of constipation - give scheduled if no bowel movement in past 24 hours. Start: 06-15-2025 End: 06-22-2025 predniSONE 20 mg oral tablet (14 sources) Start: 12-09-2021 End: 01-25-2025 take 1 tablet by mouth once daily Prednisone 20 mg tablet Discontinued 20 mg PO DAILY 10 10 0 December 09, 2021 1:00am January 25, 2025 2:12pm 100 ml propofol 10 mg/ml injection (3 sources) General Anesthetic Start: 06-18-2025 End: 06-19-2025 25 ml protamine sulfate (mcc) 10 mg/ml injection (1 source) Start: 06-18-2025 End: 06-18-2025 IntraVENous, As needed, Starting on Tue06/18/25 at 1501, Anesthesia Intraprocedure QUEtiapine 25 mg oral tablet (2 sources) Atypical Antipsychotic Start: 06-26-2025 End: 06-27-2025 take 12.5 mg by mouth twice daily as needed 12.5 mg, Oral, 2 times daily PRN, agitation, first line for agitation, [place] PRN for ONLY if danger to self/others/treatme nt, Starting on Tue06/26/25 at 1328 rocuronium bromide 10 mg/ml injectable solution (1 source) Nondepolarizing Neuromuscular Karlo Start: 06-18-2025 End: 06-18-2025 IntraVENous, As needed, Starting on Tue06/18/25 at 1203, Anesthesia Intraprocedure simethicone 80 mg chewable tablet (2 sources) Start: 06-19-2025 End: 06-22-2025 10 ml sodium bicarbonate 84 mg/ml injection (5 sources) Start: 06-18-2025 End: 06-19-2025 Start: 06-18-2025 End: 06-18-2025 IntraVENous, As needed, Star ting on Tue06/18/25 at 1408, Anesthesia Intraprocedure 50 ml sodium chloride 9 mg/ml injection (13 sources) Start: 06-24-2025 End: 06-27-2025 take 50 mL intravenously every hour 50 mL/hr, IntraVENous, Continuous, Starting on Tue06/24/25 at 1405 Start: 06-18-2025 End: 06-22-2025 Start: 06-18-2025 End: 06-20-2025 Start: 06-18-2025 End: 06-22-2025 take 5-40 mL intraluminal route every eight hours Start: 06-18-2025 End: 06-18-2025 IntraVENous, Continuous PRN, Starting on Tue06/18/25 at 1154, Anesthesia Intraprocedure Start: 06-14-2025 End: 06-22-2025 sodium phosphate, dibasic 35 .5 mg/ml / sodium phosphate, monobasic 96.4 mg/ml enema (2 sources) Start: 06-16-2025 End: 06-16-2025 5 ml sugammadex 100 mg/ml injection (2 sources) Start: 06-18-2025 End: 06-18-2025 (8 sources) Start: 06-18-2025 End: 06-22-2025 [Order 1 Start] Name: nicolees ium sulfate IVPB premix 2,000 mg Signed Summary: 2,000 mg, IntraVENous, at 25 mL/hr, Administer [...] Patients with CrCl less than 30 mL/min. [Order 1 End] [Order 2 Start] Name: magnesium sulfate IVPB 4,000 mg Signed Summary: 4,000 mg, IntraVENous, at 25 mL/hr, Administer [...] Patients with CrCl less than 30 mL/min. [Order 2 End] Start: 06-18-2025 End: 06-22-2025 [Order 1 Start] Name: gerdaass ium chloride IVPB 20 mEq Signed Summary: 20 mEq, IntraVENous, at 50 mL/hr, Administer [...] than 30mL/min For central line administration only. [Order 1 End] [Order 2 Start] Name: Potassium Chloride in NaCl IVPB 20 mEq Signed Summary: 20 mEq, IntraVENous, Administer over 2 Hours, [...] in Patients with CrCl less than 30mL/min [Order 2 End] [Order 3 Start] Name: potassium chloride 40 mEq in NS 500 mL IVPB (premix) Signed Summary: 40 mEq, IntraVENous, at 125 mL/hr, Administer [...] in Patients with CrCl less than 30mL/min [Order 3 End] Start: 06-18-2025 End: 06-22-2025 take 5 mg by mouth every four hours as needed for pain [Order 1 Start] Name: oxyCODONE (Roxicodone) immediate release tablet 5 mg Signed Summary: 5 mg, Oral, Every 4 hours PRN, moderate pain (4-6), Starting on Tue06/18/25 at 1601, Recovery & On Unit [Order 1 End] [Order 2 Start] Name: oxyCODONE (Roxicodone) immediate release tablet 10 mg Signed Summary: 10 mg, Oral, Every 4 hours PRN, severe pain (7-10), Starting on Tue06/18/25 at 1601, Recovery & On Unit [Order 2 End] Start: 06-18-2025 End: 06-22-2025 take 4 mg by mouth every eight hours as needed for nausea and vomiting [Order 1 Start] Name: ondansetron ODT (Zofran-ODT) disintegrating tablet 4 mg Signed Summary: 4 mg, Oral, Every 8 hours PRN, nausea, vomiting, Starting on Tue06/18/25 at 1601, Recovery & On Unit, 1st Line. If inadequate response within 60 minutes, proceed to next-line agent or contact provider if no further options ordered. Patient should allow tablet to dissolve on tongue. Do not remove from blister pack until just before administering. [Order 1 End] [Order 2 Start] Name: ondansetron (Zofran) injection 4 mg Signed Summary: 4 mg, IntraVENous, Every 6 hours PRN, nausea, vomiting, Starting on Tue06/18/25 at 1601, Recovery & On Unit, 1st Line. Give IV if patient is unable to take orally. If inadequate response within 60 minutes, proceed to next-line agent or contact provider if no further options ordered. [Order 2 End] (4 sources) Start: 06-18-2025 End: 06-18-2025 Start: 06-17-2025 End: 06-17-2025 Problems Active Problems Problem Classification Problem Date Documented Da te Episodic/Chronic Abdominal pain (9 sources) Suprapubic pain; Translations: [Pelvic and perineal pain] 09-23-2022 Episodic Acquired foot deformities (1 source) Flat foot [pes planus] (acquired), unspecified foot; Translations: [Flat foot [pes planus] (acquired), unspecified foot] Onset: 03-15-2022 Episodic Acute cerebrovascular disease (4 sources) Ischemic stroke; Translations: [Cerebral infarction, unspecified] Onset: 06-24-2025 06-25-2025 Chronic Acute myocardial infarction (20 sources) Myocardial infarction; Translations: [Non-ST elevation (NSTEMI) myocardial infarction] Onset: 06-14-2025 06-13-2025 Chronic Coronary atherosclerosis and other heart disease (18 sources) Exercise-induced angina; Translations: [Exertional angina] Onset: 06-14-2025 06-13-2025 Chronic Coronary atherosclerosis and other heart disease (2 sources) Presence of aortocoronary bypass graft; Translations: [Presence of aortocoronary bypass graft] Onset: 06-14-2025 Episodic Disorders of lipid metabolism (7 sources) Hypercholesterolemia; Translations: [Pure hypercholesterolemia, unspecified] Onset: 06-25-2025 06-13-2025 Chronic Fluid and electrolyte disorders (10 sources) Dehydration; Translations: [Dehydration] 09-13-2022 Episodic Malaise and fatigue (2 sources) Asthenia; Translations: [Weakness] Onset: 07-02-2025 06-28-2025 Episodic Mycoses (10 sources) Candidiasis of mouth; Translations: [Candidal stomatitis] 01-03-2023 Episodic Nonspecific chest pain (4 sources) Pain; Translations: [Precordial pain] Onset: 06-14-2025 06-16-2025 Episodic Osteoporosis (1 source) Age-related osteoporosis without current pathological fracture; Translations: [Age-related osteoporosis without current pathological fracture] Onset: 02-25-2025 Chronic Other circulatory disease (3 sources) Vascular disorder; Translations: [Other disorders of arteries, arterioles and capillaries in diseases classified elsewhere] Onset: 06-14-2025 06-16-2025 Chronic Other circulatory disease (1 source) Other disorders of arteries, arterioles and capillaries in diseases classified elsewhere; Translations: [Other disorders of arteries, arterioles and capillaries in diseases classified elsewhere (HCC)] Onset: 06-14-2025 Chronic Other circulatory disease (6 sources) Elevated blood pressure; Translations: [Elevated blood-pressure reading, without diagnosis of hypertension] 12-28-2023 Episodic Other circulatory disease (2 sources) History of cerebrovascular accident; Translations: [Personal history of transient ischemic attack (TIA), and cerebral infarction without residual deficits] 06-25-2025 Episodic Other circulatory disease (2 sources) Personal history of transient ischemic attack (TIA), and cerebral infarction without residual deficits; Translations: [Personal history of transient ischemic attack (TIA), and cerebral infarction without residual deficits] Onset: 06-24-2025 Episodic Other gastrointestinal disorders (5 sources) Irritable bowel syndrome; Translations: [Irritable bowel syndrome without diarrhea] 01-25-2025 Chronic Other lower respiratory disease (2 sources) Dyspnea; Translations: [Dyspnea, unspecified] 06-23-2025 Episodic Other non-traumatic joint disorders (3 sources) Pain in left knee; Translations: [Pain in left knee] Onset: 02-04-2022 Episodic Other screening for suspected conditions (not mental disorders or infectious disease) (6 sources) Raised cardiac enzyme or marker; Translations: [Other specified abnormal findings of blood chemistry] 06-13-2025 Episodic Residual codes; unclassified (9 sources) Altered mental status; Translations: [Altered mental status, unspecified] Onset: 06-24-2025 5 Episodic Residual codes; unclassified (2 sources) Edema of lower extremity; Translations: [Localized edema] 06-25-2025 Episodic Residual codes; unclassified (2 sources) Altered mental status, unspecified; Translations: [Altered mental status, unspecified] Onset: 06-24-2025 Episodic Residual codes; unclassified (2 sources) Localized edema; Translations: [Localized edema] Onset: 06-24-2025 Episodic Spondylosis; intervertebral disc disorders; other back problems (10 sources) Other intervertebral disc degeneration, lumbar region; Translations: [Degeneration of cervical intervertebral disc] Onset: 04-07-2022 Chronic Sprains and strains (17 sources) Strain of muscle of chest wall; Translations: [Strain of muscle and tendon of front wall of thorax, initial encounter] Onset: 03-15-2022 Episodic Syncope (17 sources) Syncope; Translations: [Syncope and collapse] 09-13-2022 Episodic Thyroid disorders (10 sources) Hypothyroidism; Translations: [Hypothyroidism, unspecified] 09-13-2022 Chronic Unclassified (2 sources) M54.12 - Radiculopathy, cervical region Past or Other Problems Problem Classification Problem Date Documented Da te Episodic/Chronic Other gastrointestinal disorders (1 source) Change in bowel habit; Translations: [Change in bowel habit] Onset: 03-20-2025 Episodic Spondylosis; intervertebral disc disorders; other back problems (12 sources) Cervical radiculopathy; Translations: [Radiculopathy, cervical region] Onset: 01-25-2025 Episodic Results Test Name Value Interpretation Reference Range Facility CBC with DIFFERENTIALon 06-22 Basophils (Bld) [#/Vol] 0.0 10*3/uL Normal 0.0-0.1 [facility] Comment on above: Performed By: #### C BCD, CMP #### [facility] [address] [place] [address] Basophils/100 WBC (Bld) 0.9 % Normal 0.0-1.0 [facility] Comment on above: Performed By: #### C BCD, CMP #### [facility] [address] [place] [address] Eosinophils (Bld) [#/Vol] 0.1 10*3/uL Normal 0.0-0.4 [facility] Comment on above: Performed By: #### C KAREEM, CMP #### [facility] [address] [place] [address] Eosinophils/100 WBC (Bld) 1.5 % Normal 1.0-4.0 [facility] Comment on above: Performed By: #### C KAREEM, CMP #### [facility] [address] [place] [address] Hematocrit (Bld) [Volume fraction] 35.6 % Low 37.0-47.0 [facility] Comment on above: Performed By: #### C KAREEM, CMP #### [facility] [address] [place] [address] Hemoglobin (Bld) [Mass/Vol] 11.5 g/dL Low 12.0-16.0 [facility] Comment on above: Performed By: #### C BCPrabhakar, CMP #### [facility] [address] [place] [address] IG # 0.0 10*3/uL Normal 0.0-0.1 [facility] Comment on above: Performed By: #### C KAREEM, CMP #### [facility] [address] [place] [address] IG % 0.4 % Normal 0.0-1.0 [facility] Comment on above: Performed By: #### C BCPrabhakar, CMP #### [facility] [address] [place] [address] Lymphocytes (Bld) [#/Vol] 1.6 10*3/uL Normal 1.3-4.4 [facility] Comment on above: Performed By: #### C BCPrabhakar, CMP #### [facility] [address] [place] [address] Lymphocytes/100 WBC (Bld) 34.3 % Normal 27.0-41.0 [facility] Comment on above: Performed By: #### C BCPrabhakar, CMP #### [facility] [address] [place] [address] MCV (RBC) [Entitic vol] 96.5 fL Normal 81.0-99.0 [facility] Comment on above: Performed By: #### C BCD, CMP #### [facility] [address] [place] [address] MEAN CORPUSCULAR HGB 31.2 pg High 27.0-31.0 [facility] Comment on above: Performed By: #### C BCD, CMP #### [facility] [address] [place] [address]33[address] MEAN CORPUSCULAR HGB CONC 32.3 g/dl Low 33.0-37.0 [facility] Comment on above: Performed By: #### C BCD, CMP #### [facility] [address] [place] [address] Monocytes (Bld) [#/Vol] 0.7 10*3/uL Normal 0.1-1.0 [facility] Comment on above: Performed By: #### C BCPrabhakar, CMP #### [facility] [address] [place] [address] Monocytes/100 WBC (Bld) 14.7 % High 3.0-9.0 [facility] Comment on above: Performed By: #### C BCD, CMP #### [facility] [address] [place] [address] Neutrophils (Bld) [#/Vol] 2.3 10*3/uL Normal 2.3-7.9 [facility] Comment on above: Performed By: #### C BCD, CMP #### [facility] [address] [place] [address] Neutrophils/100 WBC (Bld) 48.2 % Normal 47.0-73.0 [facility] Comment on above: Performed By: #### C BCD, CMP #### [facility] [address] [place] [address] 63389 NUCLEATED RED BLOOD CELL 0.0 10*3/uL Normal 0.0-0.0 [facility] Comment on above: Performed By: #### C KAREEM, CMP #### [facility] [address] [place] [address]326 NUCLEATED RED BLOOD CELL 0.0 % Normal 0.0-0.0 [facility] Comment on above: Performed By: #### C KAREEM, CMP #### [facility] [address] [place] [address] 21489 PLATELET COUNT AUTOMATED 383 10*3/uL Normal 130-400 [facility] Comment on above: Performed By: #### C KAREEM, CMP #### [facility] [address] [place] [address]370 Platelet mean volume (Bld) [Entitic vol] 9.5 fL Low 9.6-12.3 [facility] Comment on above: Performed By: #### C KAREEM, CMP #### [facility] [address] [place] [address] 65[address] RBC (Bld) [#/Vol] 3.69 10*6/uL Low 4.10-5.10 [facility] Comment on above: Performed By: #### C KAREEM, CMP #### [facility] [address] [place] [address]184 RED CELL DISTRI WIDTH 15.2 % High 0-14.5 [facility] Comment on above: Performed By: #### C KAREEM, CMP #### [facility] [address] [place] [address] WBC (Bld) [#/Vol] 4.7 10*3/uL Low 4.8-10.8 [facility] Comment on above: Performed By: #### C BCPrabhakar, CMP #### [facility] [address] [place] [address] COMPREHENSIVE METABOLIC PANE [place] 07-11-2025 Albumin [Mass/Vol] 3.6 g/dL Normal 3.4-5.0 [facility] Comment on above: Performed By: #### C BCD, CMP #### [facility] [address] [place] [address] ALP [Catalytic activity/Vol] 91 U/L Normal 46-116 [facility] Comment on above: Performed By: #### C BCD, CMP #### [facility] [address] [place] [address] ALT [Catalytic activity/Vol] U/L Normal 5-49 [facility] Comment on above: Performed By: #### C BCD, CMP #### [facility] [address] [place] [address] AST [Catalytic activity/Vol] 18 U/L Normal 0-34 [facility] Comment on above: Performed By: #### C BCD, CMP #### [facility] [address] [place] [address] Bilirubin [Mass/Vol] 0.4 mg/dL Normal 0.3-1.2 [facility] Comment on above: Performed By: #### C BCD, CMP #### [facility] [address] [place] [address] CALCIUM,TOTAL 9.1 md/dL Normal 8.7-10.4 [facility] Comment on above: Performed By: #### C BCD, CMP #### [facility] [address] [place] [address] Chloride [Moles/Vol] 103 mmol/L Normal 98-107 [facility] Comment on above: Performed By: #### C BCD, CMP #### [facility] [address] [place] [address] CO2 [Moles/Vol] 28 mmol/L Normal 20-31 [facility] Comment on above: Performed By: #### C BCD, CMP #### [facility] [address] [place] [address] Creatinine [Mass/Vol] 0.63 mg/dL Normal 0.55-1.02 [facility] Comment on above: Performed By: #### C BCPrabhakar, CMP #### [facility] [address] [place] [address] EST GLOM FILT > 60 Normal [facility] Comment on above: Result Comment: Result Units: mL/min/1.73 m2 Note: Persistent reduction for 3 months or more of an eGFR of <60 ml/min/1.73 m2 defines Chronic Kidney Disease (CKD). Patients with eGFR values greater than or equal to 60 ml/min/1.73 m2 may also have CKD if evidence of persistent proteinuria is present. STAGES OF CKD eGFR Stage 1 Kidney damage with normal kidney function >=90 Stage 2 Kidney damage with mild loss of kidney function 89-60 Stage 3a Mild to moderate loss of kidney function 59-44 Stage 3b Moderate to severe loss of kidney function 43-30 Stage 4 Severe loss of kidney function 29-15 Stage 5 Kidney failure < 15 . Performed By: #### C KAREEM, CMP #### [facility] [address] [place] [address] ESTIMATED GLOM FILT RATE > 60 Normal [facility] Comment on above: Performed By: #### C KAREEM, CMP #### [facility] [address] [place] [address] Glucose [Mass/Vol] 96 mg/dL Normal 65-99 [facility] Comment on above: Performed By: #### C BCPrabhakar, CMP #### [facility] [address] [place] [address] Potassium [Moles/Vol] 4.3 mmol/L Normal 3.4-5.1 [facility] Comment on above: Performed By: #### C BCPrabhakar, CMP #### [facility] [address] [place] [address] Sodium [Moles/Vol] 139 mmol/L Normal 136-145 [facility] Comment on above: Performed By: #### C BCD, CMP #### [facility] [address] [place] [address]40 TOTAL PROTEIN 6.4 g/L Normal 5.7-8.2 [facility] Comment on above: Performed By: #### C BCD, CMP #### [facility] [address] [place] [address] Urea nitrogen [Mass/Vol] 13 mg/dL Normal 9-23 [facility] Comment on above: Performed By: #### C BCD, CMP #### [facility] [address] [place] [address] Progress Noteon 07-11-2025 Progress Note Normal [facility] PROGRESS NOTEon 07-10-2025 [employer] Intelligence Officer Report [place], [place] PROGRESS NOTE NAME: RICHIE ARMAS ACCMichelle #: [id number] UNIT #: [id number] ROOM: [id number] DOCTOR: ZOILA LANDAVERDE BIRTHDATE: [birth year] DOS: 07/10/2025 PSYCHIATRY PROGRESS NOTE CHIEF COMPLAINT: I'm a little overwhelmed right now. I'm feeling a little weak. REASON FOR ADMISSION: She was a transfer from [facility] where she went from home due to a mental status change as evidenced by increase in psychosis, paranoia, delusions that her and son were trying to poison her, depression, and altered mental status. HISTORY OF PRESENT ILLNESS: The patient was seen during rounds. Progress was discussed with the treatment team. Please refer the nursing and medical notes for details. Upon evaluation when I met with the patient today, she was able to engage in the interview. She explained how she is going to be discharged tomorrow because a very close friend of her and the is on Tuesday. She stated it is likely her son will pick her up. When asked how she was feeling mentally and emotionally, she stated I'm able to work some things out in my mind. She acknowledges persistent feelings of depression and anxiety, but denied any suicidal ideations. She stated she has been sleeping much better, especially since Ativan was added to her nighttime medication regimen. Her appetite has been good. She believes her speech is somewhat slow and at times she finds she has some difficulty articulating what she wants to articulate and it is hard to get the words out. She stated this is possibly the medications or lack of sleep. She reported feeling slightly and somewhat paranoid still. Did not elaborate or provide details and stated she only trusts her and added that he was 88 with dementia. She denied any hallucinations. She stated she has had positive conversations with her son and celenaon on the phone. She did not present as somnolence, sedated, increasingly lethargic, not exhibiting EPS, TD, or akathisia. Nursing staff stated she has been stable, behaviorally in control, and there are no new or major issues. She slept 7 hours and 30 minutes. PSYCHIATRIC REVIEW OF SYSTEMS: Per HPI. All other systems reviewed and negative for complaints. PAST MEDICAL HISTORY: Reviewed per chart. ALLERGIES: PROMETHAZINE, CYCLOBENZAPRINE, AND MELATONIN. MEDICATIONS: No changes. MENTAL STATUS EXAMINATION: She is awake, alert and oriented to person, place, time, and situation. She knows her name, age, and date of . She is at [facility]. Mood is mildly depressed. Affect is slightly anxious. No jamin or hypomania. No delusions or paranoia. No SI or HI. She processes appropriately and her memory is intact. DIAGNOSES: * Major depressive disorder, severe, recurrent with psychotic symptoms. [place], [place] PROGRESS NOTE NAME: RICHIE ARMAS UNIT #: [id number] ROOM: [facility] [employer] DOCTOR: ZOILA LANDAVERDE BIRTHDATE: [birth year] * Rule out bipolar disorder type 1, most recent episode mixed with psychotic symptoms. ASSESSMENT AND PLAN: * Continue current medication regimen as is. * Encourage the patient to actively participate in unit programming group and milieu therapy. * Continue to monitor for safety with fall precautions as needed, medications and side effects. * Labs, vitals, imaging and medical problems, medical chart and other paperwork reviewed and taken into consideration when making the treatment plan. * Obtain collaterals from family and/or outpatient provider. * Medical consult order is ongoing. * Estimated length of stay is approximately one more day. DON Molina HC/SAG TID: [id number] CM:PNTRANS 1332 ZOILA GRAHAMHNP- 07/10/25 1433 interface Normal [facility] Progress Noteon 07-10-2025 Progress Note Normal [facility] PROGRESS NOTEon 07-09-2025 Aoc Plans Intelligence Officer Report [place], [place] PROGRESS NOTE NAME: RICHIE ARMAS UNIT #: [id number] ROOM: 312 DOCTOR: SHILA MAYNARD MD BIRTHDATE: [birth year] DOS: 07/09/2025 INTERVAL NOTE CHIEF COMPLAINT: I'm feeling so much better. SUMMARY OF THE VISIT: The patient was interviewed as she was just sitting down to breakfast. She reported to me that she is feeling so much better and that the depression and the anxiety have both improved greatly. Her only complaint is she still has sleep issues but finds the Ativan very beneficial. When we discussed if there was anything else she needed, she responded to me that, yes, although it sounds unusual, I have fibromyalgia and Mucinex 600 mg twice daily helps that greatly. MENTAL STATUS EXAMINATION: She is alert and oriented. Mood does seem to be strongly trending towards euthymia. Affect is much more appropriate. There is no jamin, hypomania or gross psychosis. Memory is intact. PLAN: I will add Ativan 1 mg at bedtime as a standing order to see if this will once and for all fix her insomnia. I will add Mucinex 600 mg b.i.d. to target the fibromyalgia symptoms. We will finalize discharge plans, returning her to the least restrictive environment when psychiatrically stable.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 * Medical consult order is ongoing. * Estimated length of stay is approximately 4-6 days. Zoila Sauceda PMHNP-BC HC/SAY TID: [id number] CM:PNTRANS 1312 ZOILA JACKELYN PMHNP-BC 07/03/25 1414 interface Normal [facility] VENOUS LOWER EXTREMITY LT on 07-03-2025 NOEL Name: RICHIE ARMAS Phys: ADOLPH ESPINO DO : 1950 Age: 75 Sex: F Acct: [id number] Loc: 309 1 Exam Date: 07/03/2025 Status: ADM IN Radiology No: [id number] Unit No: [id number] EXAM# TYPE/EXAM RESULT [id number] US/US VENOUS LOWER EXTREMITY LT SEE REPORT INDICATION: CABG 06/18/2025 with left leg vein removal. Bruising and swelling left leg from mid thigh to ankle. TECHNIQUE: Real-time grayscale imaging, color Doppler flow imaging, and spectral Doppler imaging of the left lower extremity veins was performed. 42 DICOM images received. COMPARISON: None available. FINDINGS: The left common femoral, profunda, femoral, and popliteal veins demonstrated normal compressibility, normal phasic venous flow, and normal response to augmentation. There is no evidence for echogenic thrombi. The visualized left deep calf veins are patent. There are three complex and elongated hypoechoic avascular fluid filled structures identified within the left mid thigh, left mid knee, and left mid calf. The largest is located within the subcutaneous soft tissues of the left mid thigh measuring 15.3 x 2.5 x 3.1 cm. The collection within the mid knee measures 4.1 x 0.9 x 2.0 cm, and the collection within the left mid calf measures 5.7 x 1.1 x 1.4 cm. IMPRESSION: No evidence for DVT within the left lower extremity. Three large complex, nonvascular subcutaneous fluid filled structures visualized within the left leg. Differential considerations would include postoperative seromas or hematomas. Clinical correlation and follow-up imaging recommended. Signed by Henry Mendez MD [facility] PAGE 1 Signed Report (CONTINUED) Name: RICHIE ARMAS Phys: ADOLPH ESPINO DO : 1950 Age: 75 Sex: F Acct: [id number] Loc: 309 1 Exam Date: 07/03/2025 Status: ADM IN Radiology No: [id number] Unit No: [id number] EXAM# TYPE/EXAM RESULT [id number] US/US VENOUS LOWER EXTREMITY LT SEE REPORT [address] , [place] [address] REPORT SIGNED IN OTHER VENDOR SYSTEM 07/03/2025 Reported By: HENRY MENDEZ MD CC: Technologist: ROSANNA GILLESPIE Transcribed Date/Time: 07/03/2025 (1505) [employer] Boring Machine Operator: KAMLESH Printed Date/Time: 07/03/2025 (1505) PAGE 2 Signed Report Normal [facility] 36on 07-02-2025 36 Normal [facility] AMMONIAon 07-02-2025 Ammonia (P) [Moles/Vol] 12 umol/L Normal 11-32 E ast [facility] Comment on above: Performed By: #### V ITD, FOL, HBA1C, AMM, BMP, LIPID, CBCD, TSH ####[facility] [address] [place] [address] BASIC METABOLIC PANELon 06-21 CALCIUM,TOTAL 9.4 md/dL Normal 8.7-10.4 [facility] Comment on above: Performed By: #### V ITD, FOL, HBA1C, AMM, BMP, LIPID, CBCD, TSH ####[facility] [address] [place] [address] Chloride [Moles/Vol] 105 mmol/L Normal 98-107 [facility] Comment on above: Performed By: #### V ITD, FOL, HBA1C, AMM, BMP, LIPID, CBCD, TSH ####[facility] [address] [place] [address] CO2 [Moles/Vol] 25 mmol/L Normal 20-31 [facility] Comment on above: Performed By: #### V ITD, FOL, HBA1C, AMM, BMP, LIPID, CBCD, TSH ####[facility] [address] [place] [address] Creatinine [Mass/Vol] 0.69 mg/dL Normal 0.55-1.02 [facility] Comment on above: Performed By: #### V ITD, FOL, HBA1C, AMM, BMP, LIPID, CBCD, TSH ####[facility] [address] [place] [address] EST GLOM FILT > 60 Normal [facility] Comment on above: Result Comment: Result Units: mL/min/1.73 m2 Note: Persistent reduction for 3 months or more of an eGFR of <60 ml/min/1.73 m2 defines Chronic Kidney Disease (CKD). Patients with eGFR values greater than or equal to 60 ml/min/1.73 m2 may also have CKD if evidence of persistent proteinuria is present. STAGES OF CKD eGFR Stage 1 Kidney damage with normal kidney function >=90 Stage 2 Kidney damage with mild loss of kidney function 89-60 Stage 3a Mild to moderate loss of kidney function 59-44 Stage 3b Moderate to severe loss of kidney function 43-30 Stage 4 Severe loss of kidney function 29-15 Stage 5 Kidney failure < 15 . Performed By: #### V ITD, FOL, HBA1C, AMM, BMP, LIPID, CBCD, TSH ####[facility] [address] [place] [address] ESTIMATED GLOM FILT RATE > 60 Normal [facility] Comment on above: Performed By: #### V ITD, FOL, HBA1C, AMM, BMP, LIPID, CBCD, TSH ####[facility] [address] [place] [address] Glucose [Mass/Vol] 113 mg/dL High 65-99 [facility] Comment on above: Performed By: #### V ITD, FOL, HBA1C, AMM, BMP, LIPID, CBCD, TSH ####[facility] [address] [place] [address] Potassium [Moles/Vol] 4.0 mmol/L Normal 3.4-5.1 [facility] Comment on above: Performed By: #### V ITD, FOL, HBA1C, AMM, BMP, LIPID, CBCD, TSH ####[facility] [address] [place] [address] Sodium [Moles/Vol] 140 mmol/L Normal 136-145 [facility] Comment on above: Performed By: #### V ITD, FOL, HBA1C, AMM, BMP, LIPID, CBCD, TSH ####[facility] [address] [place] [address] Urea nitrogen [Mass/Vol] 10 mg/dL Normal 9-23 [facility] Comment on above: Performed By: #### V ITD, FOL, HBA1C, AMM, BMP, LIPID, CBCD, TSH ####[facility] [address] [place] [address] CBC with DIFFERENTIALon 06-21 Basophils (Bld) [#/Vol] 0.1 10*3/uL Normal 0.0-0.1 [facility] Comment on above: Performed By: #### V ITD, FOL, HBA1C, AMM, BMP, LIPID, CBCD, TSH ####[facility] [address] [place] [address] Basophils/100 WBC (Bld) 0.6 % Normal 0.0-1.0 [facility] Comment on above: Performed By: #### V ITD, FOL, HBA1C, AMM, BMP, LIPID, CBCD, TSH ####[facility] [address] [place] [address] Eosinophils (Bld) [#/Vol] 0.1 10*3/uL Normal 0.0-0.4 [facility] Comment on above: Performed By: #### V ITD, FOL, HBA1C, AMM, BMP, LIPID, CBCD, TSH ####[facility] [address] [place] [address] Eosinophils/100 WBC (Bld) 0.8 % Low 1.0-4.0 [facility] Comment on above: Performed By: #### V ITD, FOL, HBA1C, AMM, BMP, LIPID, CBCD, TSH ####[facility] [address] [place] [address] Hematocrit (Bld) [Volume fraction] 35.8 % Low 37.0-47.0 [facility] Comment on above: Performed By: #### V ITD, FOL, HBA1C, AMM, BMP, LIPID, CBCD, TSH ####[facility] [address] [place] [address] Hemoglobin (Bld) [Mass/Vol] 11.1 g/dL Low 12.0-16.0 [facility] Comment on above: Performed By: #### V ITD, FOL, HBA1C, AMM, BMP, LIPID, CBCD, TSH ####[facility] [address] [place] [address] IG # 0.0 10*3/uL Normal 0.0-0.1 [facility] Comment on above: Performed By: #### V ITD, FOL, HBA1C, AMM, BMP, LIPID, CBCD, TSH ####[facility] [address] [place] [address] IG % 0.3 % Normal 0.0-1.0 [facility] Comment on above: Performed By: #### V ITD, FOL, HBA1C, AMM, BMP, LIPID, CBCD, TSH ####[facility] [address] [place] [address] Lymphocytes (Bld) [#/Vol] 2.3 10*3/uL Normal 1.3-4.4 [facility] Comment on above: Performed By: #### V ITD, FOL, HBA1C, AMM, BMP, LIPID, CBCD, TSH ####[facility] [address] [place] [address] Lymphocytes/100 WBC (Bld) 26.9 % Low 27.0-41.0 [facility] Comment on above: Performed By: #### V ITD, FOL, HBA1C, AMM, BMP, LIPID, CBCD, TSH ####[facility] [address] [place] [address] MCV (RBC) [Entitic vol] 98.6 fL Normal 81.0-99.0 E [facility] Comment on above: Performed By: #### V ITD, FOL, HBA1C, AMM, BMP, LIPID, CBCD, TSH ####[facility] [address] [place] [address] MEAN CORPUSCULAR HGB 30.6 pg Normal 27.0-31.0 [facility] Comment on above: Performed By: #### V ITD, FOL, HBA1C, AMM, BMP, LIPID, CBCD, TSH ####[facility] [address] [place] [address] MEAN CORPUSCULAR HGB CONC 31.0 g/dl Low 33.0-37.0 [facility] Comment on above: Performed By: #### V ITD, FOL, HBA1C, AMM, BMP, LIPID, CBCD, TSH ####[facility] [address] [place] [address] Monocytes (Bld) [#/Vol] 0.7 10*3/uL Normal 0.1-1.0 [facility] Comment on above: Performed By: #### V ITD, FOL, HBA1C, AMM, BMP, LIPID, CBCD, TSH ####[facility] [address] [place] [address] Monocytes/100 WBC (Bld) 8.2 % Normal 3.0-9.0 [facility] Comment on above: Performed By: #### V ITD, FOL, HBA1C, AMM, BMP, LIPID, CBCD, TSH ####[facility] [address] [place] [address] Neutrophils (Bld) [#/Vol] 5.5 10*3/uL Normal 2.3-7.9 [facility] Comment on above: Performed By: #### V ITD, FOL, HBA1C, AMM, BMP, LIPID, CBCD, TSH ####[facility] [address] [place] [address] Neutrophils/100 WBC (Bld) 63.2 % Normal 47.0-73.0 [facility] Comment on above: Performed By: #### V ITD, FOL, HBA1C, AMM, BMP, LIPID, CBCD, TSH ####[facility] [address] [place] [address] NUCLEATED RED BLOOD CELL 0.0 10*3/uL Normal 0.0-0.0 [facility] Comment on above: Performed By: #### V ITD, FOL, HBA1C, AMM, BMP, LIPID, CBCD, TSH ####[facility] [address] [place] [address] NUCLEATED RED BLOOD CELL 0.0 % Normal 0.0-0.0 [facility] Comment on above: Performed By: #### V ITD, FOL, HBA1C, AMM, BMP, LIPID, CBCD, TSH ####[facility] [address] [place] [address] PLATELET COUNT AUTOMATED 635 10*3/uL High 130-400 [facility] Comment on above: Performed By: #### V ITD, FOL, HBA1C, AMM, BMP, LIPID, CBCD, TSH ####[facility] [address] [place] [address] Platelet mean volume (Bld) [Entitic vol] 9.7 fL Normal 9.6-12.3 [facility] Comment on above: Performed By: #### V ITD, FOL, HBA1C, AMM, BMP, LIPID, CBCD, TSH ####[facility] [address] [place] [address] RBC (Bld) [#/Vol] 3.63 10*6/uL Low 4.10-5.10 [facility] Comment on above: Performed By: #### V ITD, FOL, HBA1C, AMM, BMP, LIPID, CBCD, TSH ####[facility] [address] [place] [address] RED CELL DISTRI WIDTH 15.6 % High 0-14.5 [facility] Comment on above: Performed By: #### V ITD, FOL, HBA1C, AMM, BMP, LIPID, CBCD, TSH ####[facility] [address] [place] [address] WBC (Bld) [#/Vol] 8.6 10*3/uL Normal 4.8-10.8 [facility] Comment on above: Performed By: #### V ITD, FOL, HBA1C, AMM, BMP, LIPID, CBCD, TSH ####[facility] [address] [place] [address] COMPREHENSIVE METABOLIC PANE [facility] 07-02-2025 Albumin [Mass/Vol] 3.9 g/dL Normal 3.4-5.0 [facility] Comment on above: Performed By: #### C MP ####[facility] [address] [place] [address] ALP [Catalytic activity/Vol] 95 U/L Normal 46-116 [facility] Comment on above: Performed By: #### C MP ####[facility] [address] [place] [address] ALT [Catalytic activity/Vol] 7 U/L Normal 5-49 [facility] Comment on above: Performed By: #### C MP ####[facility] [address] [place] [address] AST [Catalytic activity/Vol] 28 U/L Normal 0-34 [facility] Comment on above: Performed By: #### C MP ####[facility] [address] [place] [address] Bilirubin [Mass/Vol] 0.7 mg/dL Normal 0.3-1.2 [facility] Comment on above: Performed By: #### C MP ####[facility] [address] [place] [address] CALCIUM,TOTAL 9.6 md/dL Normal 8.7-10.4 [facility] Comment on above: Performed By: #### C MP ####[facility] [address] [place] [address] Chloride [Moles/Vol] 99 mmol/L Normal 98-107 [facility] Comment on above: Performed By: #### C MP ####[facility] [address] [place] [address] CO2 [Moles/Vol] 29 mmol/L Normal 20-31 [facility] Comment on above: Performed By: #### C MP ####[facility] [address] [place] [address] Creatinine [Mass/Vol] 0.78 mg/dL Normal 0.55-1.02 [facility] Comment on above: Performed By: #### C MP ####[facility] [address] [place] [address] EST GLOM FILT > 60 Normal [facility] Comment on above: Result Comment: Result Units: mL/min/1.73 m2 Note: Persistent reduction for 3 months or more of an eGFR of <60 ml/min/1.73 m2 defines Chronic Kidney Disease (CKD). Patients with eGFR values greater than or equal to 60 ml/min/1.73 m2 may also have CKD if evidence of persistent proteinuria is present. STAGES OF CKD eGFR Stage 1 Kidney damage with normal kidney function >=90 Stage 2 Kidney damage with mild loss of kidney function 89-60 Stage 3a Mild to moderate loss of kidney function 59-44 Stage 3b Moderate to severe loss of kidney function 43-30 Stage 4 Severe loss of kidney function 29-15 Stage 5 Kidney failure < 15 . Performed By: #### C MP ####[facility] [address] [place] [address] ESTIMATED GLOM FILT RATE > 60 Normal [facility] Comment on above: Performed By: #### C MP ####[facility] [address] [place] [address] Glucose [Mass/Vol] 95 mg/dL Normal 65-99 [facility] Comment on above: Performed By: #### C MP ####[facility] [address] [place] [address] Potassium [Moles/Vol] 4.3 mmol/L Normal 3.4-5.1 [facility] Comment on above: Result Comment: Specimen slightly hemolyzed. Potassium,Magnesium,LD,CK,AST,Iron,Ammonia and TIBC may be falsely increased. Phosphorous and Triglyceride may be falsely decreased Performed By: #### C MP ####[facility] [address] [place] [address] Sodium [Moles/Vol] 137 mmol/L Normal 136-145 [facility] Comment on above: Performed By: #### C MP ####[facility] [address] [place] [address] TOTAL PROTEIN 7.2 g/L Normal 5.7-8.2 [facility] Comment on above: Performed By: #### C MP ####[facility] [address] [place] [address] Urea nitrogen [Mass/Vol] 17 mg/dL Normal 9-23 [facility] Comment on above: Performed By: #### C MP ####[facility] [address] [place] [address] FOLIC ACIDon 07-02-2025 FOLIC ACID 8.93 ng/mL Normal 5.38-24.00 [facility] Comment on above: Result Comment: 0.35 - 3.7 ng/mL - Folate Deficiency 3.38 - 5.38 ng/mL - Indeterminate > 5.38 ng/mL - Normal Performed By: #### V ITD, FOL, HBA1C, AMM, BMP, LIPID, CBCD, TSH ####[facility] [address] [place] [address] OYW9Hci 07-02-2025 ESTIMATED AVERAGE GLUCOSE 108 Normal [facility] Comment on above: Performed By: #### V ITD, FOL, HBA1C, AMM, BMP, LIPID, CBCD, TSH ####[facility] [address] [place] [address] HbA1c (Bld) [Mass fraction] 5.4 % Normal 4.8-5.6 [facility] Comment on above: Result Comment: Standarization of method based on National Glycohemoglobin Standardization Program (NGSP). HEMOGLOBIN A1c(%) DEGREE of GLUCOSE CONTROL 5.7-6.4% Prediabetes range >6.4% Diagnosis of Diabetes <7% Glycemic control for adults with Diabetes Performed By: #### V ITD, FOL, HBA1C, AMM, BMP, LIPID, CBCD, TSH ####[facility] [address] [place] [address] LIPID PANELon 07-02-2025 Cholesterol [Mass/Vol] 168 mg/dL Normal <200 [facility] Comment on above: Performed By: #### V ITD, FOL, HBA1C, AMM, BMP, LIPID, CBCD, TSH ####[facility] [address] [place] [address] Cholesterol in HDL [Mass/Vol] 61 mg/dL High 40-60 [facility] Comment on above: Performed By: #### V ITD, FOL, HBA1C, AMM, BMP, LIPID, CBCD, TSH ####[facility] [address] [place] [address] Cholesterol in LDL [Mass/Vol] 87 mg/dL Normal 9-159 [facility] Comment on above: Performed By: #### V ITD, FOL, HBA1C, AMM, BMP, LIPID, CBCD, TSH ####[facility] [address] [place] [address] Triglyceride [Mass/Vol] 99 mg/dL Normal <150 E ast [facility] Comment on above: Result Comment: TRIGLYCERIDE RISK ASSESSMENT: 150-199 mg/dl BORDERLINE HIGH >200 mg//dl HIGH . Performed By: #### V ITD, FOL, HBA1C, AMM, BMP, LIPID, CBCD, TSH ####[facility] [address] [place] [address] VLDL CHOLESTEROL 20 mg/dL Normal 6-40 [facility] Comment on above: Performed By: #### V ITD, FOL, HBA1C, AMM, BMP, LIPID, CBCD, TSH ####[facility] [address] [place] [address] PATIENT HISTORY AND PHYSICAL EXAMon 07-02-2025 [employer] Intelligence Officer Report [place], [place] PATIENT HISTORY AND PHYSICAL EXAM NAME: RICHIE ARMAS UNIT #: [id number] ROOM: 309 DOCTOR: SHILA MAYNARD MD BIRTHDATE: [birth year] DOS: 07/02/2025 INITIAL PSYCHIATRIC EVALUATION CHIEF COMPLAINT: I think I am figuring things out. HISTORY OF PRESENT ILLNESS: This is a 75-year-old white female who was sent here from [facility] due to an altered mental status. The patient presented there increasingly depressed as well as psychotic and paranoid. She was very delusional and believed that her and her sons were going to be poisoning her, that they were after her money. They were giving her SARS. She also said that she had HIV and that HIV killed both of her sons. The patient was very delusional and could not be redirected there. The patient has a previous history of suicide at the age of 9 by ingesting Vaseline. The patient stated that she did not feel safe at home and would do whatever she had to do to get out of the situation, and it was unclear if she meant suicidality. She is admitted now to rule out organic factors, to stabilize her medication and to return to the least restrictive environment when psychiatrically stable. PAST MEDICAL HISTORY: Remarkable for a recent cardiac bypass as well as hypothyroidism, idiopathic constipation, fibromyalgia, myocardial infarction, osteoporosis, Raynaud's phenomenon, and a history of suicidality. ALLERGIES: THE PATIENT LISTS ALLERGIES TO PROMETHAZINE, CYCLOBENZAPRINE, AND MELATONIN. SOCIAL HISTORY: She does not drink alcohol, smokes cigarettes, or use illicit drugs. STRENGTHS: Well educated, ambulatory, good verbal skills. WEAKNESSES: Chronic mental health issues, poor coping skills. MENTAL STATUS EXAMINATION: The patient is alert and oriented. Mood does seem to be somewhat down and depressed with some anxious overtones. She is rather fretful and worried. I did not, during my examination this morning, elicit any paranoia as she seemed relatively goal-oriented in her speaking. Memory seemed intact. PLAN: I have already started her on an antidepressant, having picked Cymbalta to target depression, anxiety, and any pain issues. I started at 30 mg at bedtime. I will augment this with Abilify 5 mg at bedtime, not only to augment the effectiveness of the antidepressant, but also act as an antipsychotic. We will engage in individual and cunningham milieu activity, returning to the least restrictive environment once psychiatrically stable. SHILA MAYNARD MD [place], [place] PATIENT HISTORY AND PHYSICAL EXAM [facility]: [id number] UNIT #: [id number] ROOM: 309 DOCTOR: SHILA MAYNARD MD BIRTHDATE: [birth year] WP/SAY TID: [id number] CM:HISPHYS:PATIENT HISTORY AND PHYSICAL EXAMINATION 0832 SHILA MAYNARD MD 07/02/25 0933 interface Normal [facility] Progress Noteon 07-02-2025 Progress Note Normal [facility] THYROID STIM HORMONE (HS)on 07-02-2025 THYROID STIM HORMONE (HS) 12.027 uIU/ml High 0.550-4.780 [facility] Comment on above: Performed By: #### V ITD, FOL, HBA1C, AMM, BMP, LIPID, CBCD, TSH ####[facility] [address] [place] [address] VITAMIN D, 25-HYDROXYon 06-21 VITAMIN D, 25-HYDROXY 57.0 ng/mL Normal 30-100 [facility] Comment on above: Result Comment: < 20 ng/mL - Vitamin D Deficiency 20 - 30 ng/mL - Vitamin D Insufficiency 30 - 100 ng/mL - Vitamin D sufficiency > 100 ng/mL - Vitamin D Toxicity Performed By: #### V ITD, FOL, HBA1C, AMM, BMP, LIPID, CBCD, TSH ####[facility] [address] [place] [address] Cardiac Cath Diagnosticon Cardiac Cath Diagnostic [facility] Imaging Services [address] [place] [address] Cardiac Cath Diagnostic MR#: [id number] Acct: [id number] Name: RICHIE ARMAS Rep #: [id number] : 1950 75 From: Edil Hong MD PCP: Dr. Narinder Crum MD Status:DIS IN Patient Name: RICHIE ARMAS Study Date: 06/14/2025 Performing: Edil Hong MD Ht: 63 inches 160.02 cm : 1950 Wt: 139.1 lbs 63 kg Age: 75 Gender: female BSA: 1.66 PROCEDURE(S) PERFORMED DC01-(82774)LHC/COR/LV CLINICAL PROFILE AND INDICATIONS Indications: Worsening Angina Heart Failure: None Stress/Imaging Stress/Image Study Performed: No CAD Presentations: Non-STEMI. Symptom onset Date/Time: 06/14/25 Time Not Available CONCLUSIONS Severe triple-vessel disease with subtotally occluded right coronary artery high-grade obtuse marginal vessel moderately severe left anterior descending artery with kaja-vx-lgnlx collaterals and mild left ventricular systolic dysfunction. RECOMMENDATIONS Surgery consult for coronary revascularization DESCRIPTION OF PROCEDURE The patient arrived to the procedure lab. The risks and benefits of the procedure as well as a full description of our services here and current unavailability of surgical backup were fully explained to the patient and/or their significant other prior to the catheterization. The Timeout was completed, verifying the correct patient and procedure. The patient's procedural site was prepped and draped in the usual fashion. Local anesthetic was given subcutaneously to right radial region with Lidocaine 2%. Using a modified Seldinger technique, arterial access was obtained via the right radial artery, a 6Fr sheath was inserted. Right Coronary Artery selective angiography was then performed in multiple views using a 5 Fr. 4.0 [place] catheter. Left Coronary Artery selective angiography was performed in multiple views using a 5 Fr. 4.0 [place] catheter. Left Ventriculography was performed in PRINGLE projection using a 5 Fr. Pigtail catheter. LV to AO pullback pressures were then recorded.The arterial sheath was pulled and a TR Band was applied for hemostasis CORONARY ANGIOGRAPHY DOMINANCE: Right Dominant LEFT HEART ASSESSMENT Left Ventricular Ejection Fraction: by LV Gram 45 % Anterior Hypokinesis - Mild. Lateral Hypokinesis - Moderate Depressed Left Ventricular systolic function LEFT MAIN: Mild luminal irregularities LEFT ANTERIOR DESCENDING ARTERY: Medium size vessel with proximal 70% stenosis mid 70% stenosis and mildly diffusely diseased segment towards the apex. CIRCUMFLEX ARTERY: Nondominant but medium to large size vessel with a first prominent obtuse marginal branch which bifurcates within 99% proximal stenosis. A large AV groove branch is noted and gives off a second obtuse marginal branch with mild diffuse disease. RIGHT CORONARY ARTERY: Dominant right coronary artery which is subtotally occluded in the midsegment with distal [id number] collaterals noted. COMPLICATIONS No Complications PROCEDURE MEDICATIONS Fentanyl 50 mcg IV Versed 1 mg IV Oxygen: 2 L/min via nasal cannula Baby Aspirin (81mg) 1 Tabs PO @ 06/14/2025 11:17:55 Heparin given IA 06/14/2025 11:39:46 Nitro glycerin 25mg / 250ml D5W @ 9 mcg/min IV continued from the unit 06/14/2025 11:27:07 Verapamil 2.5mg, Ntg 100mcgs, 3000 units of Heparin given IA 06/14/2025 11:39:46 SUMMARY OF HEMODYNAMIC DATA Time AIR REST ECG 11:16:13 AO 105/37 (68) SA 11:43:49 AO 111/48 (75) 11:44:17 LV 138/-8, 3 11:50:55 LV 139/-12, 3 11:51:02 LV 138/-4, 6 11:51:54 LVp 128/-11, 4 11:52:02 AOp 128/51 (84) 11:52:08 Signed By Edil Hong MD On 06/14/2025 17:40:46 Edil Hong MD 07/01/25 0947 Date Edil Hong MD Cosigner Signature: Date (if indicated) CC: Dr. Edil Hong MD; Dr. Narinder Crum MD; Dr. Thelma Hamm DO Date Dictated: 06/14/25 1128 Date Transcribed: 06/14/25 1740 [employer] Operator: [place] Signed Normal [facility] UFENTSon 06-30-2025 Fentanyl (u) Negative Normal Negative [facility] Comment on above: Result Comment: Test ing has been performed FOR MEDICAL PURPOSES ONLY. Performed By: #### A FERNANDO THOMAS, ANEU, ALC, GFR, AYAKA, CBC, CMP, ACETA #### [address] [address] UOXYSon 06-30-2025 Oxycodone (u) Negative Normal Negative [facility] Comment on above: Result Comment: Test ing has been performed FOR MEDICAL PURPOSES ONLY. Performed By: #### A FERNANDO THOMAS, ANEU, ALC, GFR, AYAKA, CBC, CMP, ACETA #### [address] [address] .Auto Diffon 06-29-2025 Basophil, Absolute 0.1 10 3/mcL Normal 0.0-0.3 [facility] Comment on above: Performed By: #### A FERNANDO THOMAS, ANEU, ALC, GFR, AYAKA, CBC, CMP, ACETA #### [address] [address] Basophils/100 WBC (Bld) 0.8 % Normal 0.0-2.5 [facility] Comment on above: Performed By: #### A DIFF, MDW, ANEU, ALC, GFR, AYAKA, CBC, CMP, ACETA #### [address] [address] Eosinophil, Absolute 0.0 10 3/mcL Normal 0.0-0.7 [facility] Comment on above: Performed By: #### A DIFF, MDW, ANEU, ALC, GFR, AYAKA, CBC, CMP, ACETA #### [address] [address] Eosinophils/100 WBC (Bld) 0.1 % Normal 0.0-6.0 [facility] Comment on above: Performed By: #### A DIFF, MDW, ANEU, ALC, GFR, AYAKA, CBC, CMP, ACETA #### [address] [address] Lymphocyte, Absolute 1.5 10 3/mcL Normal 0.9-4.3 [facility] Comment on above: Performed By: #### A DIFF, MDW, ANEU, ALC, GFR, AYAKA, CBC, CMP, ACETA #### [address] [address] Lymphocytes/100 WBC (Bld) 12.7 % Low 20.0-40.0 [facility] Comment on above: Performed By: #### A DIFF, MDW, ANEU, ALC, GFR, AYAKA, CBC, CMP, ACETA #### [address] [address] Monocyte, Absolute 0.7 10 3/mcL Normal 0.1-1.4 [facility] Comment on above: Performed By: #### A DIFF, MDW, ANEU, ALC, GFR, AYAKA, CBC, CMP, ACETA #### [address] [address] Monocytes/100 WBC (Bld) 5.6 % Normal 2.0-13.0 [facility] Comment on above: Performed By: #### A DIFF, MDW, ANEU, ALC, GFR, AYAKA, CBC, CMP, ACETA #### [address] [address] Neutrophils/100 WBC (Bld) 80.8 % High 50.0-75.0 [facility] Comment on above: Performed By: #### A DIFF, MDW, ANEU, ALC, GFR, AYAKA, CBC, CMP, ACETA #### [address] [address] .GFRon 06-29-2025 Estimated Glomerular Filtration Rate 94 ml/min/1.73sqm Normal [facility] Comment on above: Result Comment: Stages of Chronic Kidney Disease (CKD) Stage Description eGFR(ml/min/1.73 sq.m.) CKD 1 Normal kidney function or >=90 normal kindney function with possible kidney damage (ex. Proteinuria) CKD 2 Kidney damage with mild loss 60-89 of kidney function CKD 3a Mild to moderate loss of kidney 45-59 function CKD 3b Moderate to severe loss of 30-44 of kindey function CKD 4 Severe loss of kidney function 15-29 CKD 5 Kidney failure <15 Note: (go live 2024) the eGFR calculation was updated to the 2020 CKD-EPI creatinine equation without a race factor to calculate the eGFR results. Performed By: #### A DIFF, MDW, ANEU, ALC, GFR, AYAKA, CBC, CMP, ACETA #### [address] [address] .MDWon 06-29-2025 Monocyte Distribution Width 22.17 High 0.00-20.00 [facility] Comment on above: Result Comment: For adults in ED, MDW>20.0 may be associated with a higher risk of sepsis during the first 12hrs of hospital admission Performed By: #### A DIFF, MDW, ANEU, ALC, GFR, AYAKA, CBC, CMP, ACETA #### [address] [address] .NEUABSon 06-29-2025 Neutrophil, Absolute 9.6 10 3/mcL High 2.3-8.1 [facility] Comment on above: Performed By: #### A DIFFFERNANDO, ANEU, ALC, GFR, AYAKA, CBC, CMP, ACETA #### [address] [address] ACETAon 06-29-2025 Acetaminophen [Mass/Vol] 0.0 ug/mL Low 10.0-30.0 [facility] Comment on above: Performed By: #### A DIFF, W, ANEU, ALC, GFR, AYAKA, CBC, CMP, ACETA #### [address] [address] Renetta 06-29-2025 Ethanol Level 3 mg/dL Normal [facility] Comment on above: Performed By: #### A DIFF, FERNANDO, ANEU, ALC, GFR, AYAKA, CBC, CMP, ACETA #### [place] [address] CBCon 06-29-2025 Erythrocyte distribution width (RBC) [Ratio] 15.6 % High 11.5-15.5 [facility] Comment on above: Performed By: #### A FERNANDO THOMAS, ANEU, ALC, GFR, AYAKA, CBC, CMP, ACETA #### [address] [address] Hematocrit (Bld) [Volume fraction] 34.3 % Normal 34.0-46.0 [facility] Comment on above: Performed By: #### A FERNANDO THOMAS, ANEU, ALC, GFR, AYAKA, CBC, CMP, ACETA #### [address] [address] Hgb 11.3 G/dL Low 12.0-16.0 [facility] Comment on above: Performed By: #### A FERNANDO THOMAS, ANEU, ALC, GFR, AYAKA, CBC, CMP, ACETA #### [address] [address] MCH (RBC) [Entitic mass] 30.9 pg Normal 27.0-33.0 [facility] Comment on above: Performed By: #### A DIFF, MDW, ANEU, ALC, GFR, AYAKA, CBC, CMP, ACETA #### [address] [address] MCHC 32.9 G/dL Normal 32.0-36.0 [facility] Comment on above: Performed By: #### A DIFF, MDW, ANEU, ALC, GFR, AYAKA, CBC, CMP, ACETA #### [address] [address] MCV (RBC) [Entitic vol] 94.0 fL Normal 80.0-99.0 [facility] Comment on above: Performed By: #### A DIFF, MDW, ANEU, ALC, GFR, AYAKA, CBC, CMP, ACETA #### [address] [address] Platelet 679 10 3/mcL High 150-450 [facility] Comment on above: Performed By: #### A DIFF MDW, ANEU, ALC, GFR, AYAKA, CBC, CMP, ACETA #### [address] [address] Platelet mean volume (Bld) [Entitic vol] 7.5 fL Normal 6.6-10.5 [facility] Comment on above: Performed By: #### A DIFF, MDW, ANEU, ALC, GFR, AYAKA, CBC, CMP, ACETA #### [address] [address] RBC 3.65 10 6/mcL Low 4.10-5.30 [facility] Comment on above: Performed By: #### A DIFF, MDW, ANEU, ALC, GFR, AYAKA, CBC, CMP, ACETA #### [address] [address] WBC 11.8 10 3/mcL High 4.5-10.8 [facility] Comment on above: Performed By: #### A DIFF, MDW, ANEU, ALC, GFR, AYAKA, CBC, CMP, ACETA #### [address] [address] CMPon 06-29-2025 Albumin Level 4.2 G/dL Normal 3.4-4.8 [facility] Comment on above: Performed By: #### A DIFFFERNANDO, ANEU, ALC, GFR, AYAKA, CBC, CMP, ACETA #### [place] [address] Albumin/Globulin [Mass ratio] 1.0 {ratio} Low 1.1-2.5 [facility] Comment on above: Performed By: #### A DIFF, FERNANDO, ANEU, ALC, GFR, AYAKA, CBC, CMP, ACETA #### [place] [address] ALP [Catalytic activity/Vol] 105 U/L Normal 40-135 [facility] Comment on above: Performed By: #### A MARTHA, FERNANDO, ANEU, ALC, GFR, AYAKA, CBC, CMP, ACETA #### [place] [address] ALT [Catalytic activity/Vol] 19 U/L Normal 14-59 [facility] Comment on above: Performed By: #### A FERNANDO THOMAS, ANEU, ALC, GFR, AYAKA, CBC, CMP, ACETA #### [place] [address] AST [Catalytic activity/Vol] 31 U/L Normal 10-40 [facility] Comment on above: Performed By: #### A FERNANDO THOMAS, ANEU, ALC, GFR, AYAKA, CBC, CMP, ACETA #### [place] [address] Bili Total 0.7 mg/dL Normal 0.2-1.0 [facility] Comment on above: Result Comment: Use of this assay is not recommended for patients undergoing treatment with eltrombopag due to the potential for falsely elevated results. Performed By: #### A MARTHA, FERNANDO, ANEU, ALC, GFR, AYAKA, CBC, CMP, ACETA #### [place] [address] BUN/Creatinine Ratio 23 ratio Normal 7-27 [facility] Comment on above: Performed By: #### A DIFF, MDW, ANEU, ALC, GFR, AYAKA, CBC, CMP, ACETA #### [place] [address] Calcium [Mass/Vol] 10.3 mg/dL High 8.4-10.2 [facility] Comment on above: Performed By: #### A DIFF, MDW, ANEU, ALC, GFR, AYAKA, CBC, CMP, ACETA #### [place] [address] Chloride [Moles/Vol] 102 mmol/L Normal 98-107 [facility] Comment on above: Performed By: #### A DIFF, MDW, ANEU, ALC, GFR, AYAKA, CBC, CMP, ACETA #### [place] [address] CO2 [Moles/Vol] 28 mmol/L Normal 23-31 [facility] Comment on above: Performed By: #### A DIFF, MDW, ANEU, ALC, GFR, AYAKA, CBC, CMP, ACETA #### [place] [address] Creatinine [Mass/Vol] 0.61 mg/dL Normal 0.51-0.95 [facility] Comment on above: Performed By: #### A DIFF, MDW, ANEU, ALC, GFR, AYAKA, CBC, CMP, ACETA #### [place] [address] Electrolyte Balance 10.0 mEq/L Normal 4.0-15.0 [facility] Comment on above: Performed By: #### A DIFF, MDW, ANEU, ALC, GFR, AYAKA, CBC, CMP, ACETA #### [place] [address] Globulin 4.0 G/dL Normal 2.7-4.4 [facility] Comment on above: Performed By: #### A DIFF, MDW, ANEU, ALC, GFR, AYAKA, CBC, CMP, ACETA #### [place] [address] Glucose [Mass/Vol] 155 mg/dL High 83-110 [facility] Comment on above: Performed By: #### A DIFF, W, ANEU, ALC, GFR, AYAKA, CBC, CMP, ACETA #### [place] [address] Potassium [Moles/Vol] 4.2 mmol/L Normal 3.5-5.1 [facility] Comment on above: Performed By: #### A DIFF, MDW, ANEU, ALC, GFR, AYAKA, CBC, CMP, ACETA #### [place] [address] Sodium [Moles/Vol] 140 mmol/L Normal 136-145 [facility] Comment on above: Performed By: #### A DIFF, MDW, ANEU, ALC, GFR, AYAKA, CBC, CMP, ACETA #### [place] [address] Total Protein 8.2 G/dL Normal 6.4-8.2 [facility] Comment on above: Performed By: #### A DIFF, FERNANDO, ANEU, ALC, GFR, AYAKA, CBC, CMP, ACETA #### [place] [address] Urea nitrogen [Mass/Vol] 14 mg/dL Normal 7-18 [facility] Comment on above: Performed By: #### A DIFF, FERNANDO, ANEU, ALC, GFR, AYAKA, CBC, CMP, ACETA #### [place] [id number] CVFLURVon 06-29-2025 FLU A PCR Negative Normal Negative [facility] Comment on above: Performed By: #### A DIFF, MDW, ANEU, ALC, GFR, AYAKA, CBC, CMP, ACETA #### [place] [address] FLU B PCR Negative Normal Negative [facility] Comment on above: Performed By: #### A DIFF, MDW, ANEU, ALC, GFR, AYAKA, CBC, CMP, ACETA #### [place] [id number] RSV PCR Negative Normal Negative [facility] Comment on above: Performed By: #### A FERNANDO THOMAS, ANEU, ALC, GFR, AYAKA, CBC, CMP, ACETA #### [place] [address] [place], [place] [address] SARS-CoV-2 (COVID-19) RNA VIANEY+probe Ql (Unsp spec) Negative Normal Negative [facility] Comment on above: Result Comment: Resu lts from the Xpert Xpress CoV-2/Flu/RSV plus test should be correlated with the clinical history, epidemiological data, and other data available to the clinical evaluating the patient. Performance of the Xpert Xpress CoV-2/Flu/RSV plus test has only been established in nasopharyngeal swab specimen. Erroneous test results might occur from improper specimen collection, failure to follow the recommended sample collection, handling and storage procedures, technical error, or sample mix-up. False negative results may occur if a virus is present at a level below the analytical limit of detection. Viral nucleic acid may persist in vivo, independent of virus viability. Detection of analyte target(s) does not imply that the corresponding virus(es) are infectious or are the causative agents for clinical symptoms. Recent patient exposure to FluMist or other live attenuated influenza vaccines may cause inaccurate positive results. Performed By: #### A FERNANDO THOMAS, ANEU, ALC, GFR, AYAKA, CBC, CMP, ACETA #### [place] [address] [place], [place] [address] LABORATORYOrdered By: Brad Tesfaye on 06-29-2025 Acetaminophen [Mass/Vol] 0.0 ug/mL Low 10.0 - 30.0 mcg/mL AO Chemistry S Amphetamines Screen Ql (U) Negative *NA* (06/29/25 5:39 PM) Invalid Interpretation Code Negative AO ADM SS Appearance (U) Clear (06/29/25 5:39 PM) Normal Clear AO Auto Urine SS Barbiturates Screen Ql (U) Negative *NA* (06/29/25 5:39 PM) Invalid Interpretation Code Negative AO ADM SS Benzodiazepines Ql (U) Negative *NA* (06/29/25 5:39 PM) Invalid Interpretation Code Negative AO ADM SS Benzoylecgonine Screen Ql (U) Negative *NA* (06/29/25 5:39 PM) Invalid Interpretation Code Negative AO ADM SS Bilirubin Ql (U) Negative (06/29/25 5:39 PM) Normal Negative AO Auto Urine SS Cannabinoids Screen Ql (U) Negative *NA* (06/29/25 5:39 PM) Invalid Interpretation Code Negative AO ADM SS Color (U) Yellow (06/29/25 5:39 PM) Normal AO Auto Urine SS FLUAV RNA VIANEY+probe Ql (Resp) Negative (06/29/25 5:39 PM) Normal Negative AO Auto Urine SS FLUBV RNA VIANEY+probe Ql (Resp) Negative (06/29/25 5:39 PM) Normal Negative AO Auto Urine SS Glucose Test strip (U) [Mass/Vol] Negative Normal Negative AO Auto Urine SS Hemoglobin Auto test strip (U) [Mass/Vol] Negative (06/29/25 5:39 PM) Normal Negative AO Auto Urine SS Ketones Ql (U) Negative Normal Negative AO Auto Urine SS Methadone Screen Ql (U) Negative *NA* (06/29/25 5:39 PM) Invalid Interpretation Code Negative AO ADM SS Opiates Screen Ql (U) Negative *NA* (06/29/25 5:39 PM) Invalid Interpretation Code Negative AO ADM SS Phencyclidine Ql (U) Negative *NA* (06/29/25 5:39 PM) Invalid Interpretation Code Negative AO ADM SS RSV RNA VIANEY+probe Ql (Resp) Negative (06/29/25 5:39 PM) Normal Negative AO Auto Urine SS SARS-CoV-2 (COVID-19) RNA VIANEY+probe Ql (Resp) Negative 7 (06/29/25 5:39 PM) Normal Negative AO Auto Urine SS Comment on above: Interpretive Data: R esults from the Xpert Xpress CoV-2/Flu/RSV plus test should be correlated with the clinical history, epidemiological data, and other data available to the clinical evaluating the patient. Performance of the Xpert Xpress CoV-2/Flu/RSV plus test has only been established in nasopharyngeal swab specimen. Erroneous test results might occur from improper specimen collection, failure to follow the recommended sample collection, handling and storage procedures, technical error, or sample mix-up. False negative results may occur if a virus is present at a level below the analytical limit of detection. Viral nucleic acid may persist in vivo, independent of virus viability. Detection of analyte target(s) does not imply that the corresponding virus(es) are infectious or are the causative agents for clinical symptoms. Recent patient exposure to FluMist or other live attenuated influenza vaccines may cause inaccurate positive results. UA Leuk Est Negative (06/29/25 5:39 PM) Normal Negative AO Auto Urine SS UA Nitrite Negative (06/29/25 5:39 PM) Normal Negative AO Auto Urine SS UA pH 7.0 (06/29/25 5:39 PM) Normal 5.0 - 8.0 AO Auto Urine SS UA Protein Trace mg/dL Normal Negative AO Auto Urine SS UA Spec Grav 1.015 (06/29/25 5:39 PM) Normal 1.015-1.025 AO Auto Urine SS UA Specimen Type Not Given (06/29/25 5:39 PM) Normal AO Auto Urine SS UA Urobilinogen 1.0 E.U./dL Normal 0.2-1.0 AO Auto Urine SS Urine Drugs screened: See Below 5 (06/29/25 5:39 PM) Normal AO Chemistry S Comment on above: Interpretive Data: T his drug screen is a presumptive screening only. No confirmation will be performed unless requested. Drugs screened include: Threshold Amphetamines/Methamphetamines 1,000 ng/mL Barbiturates 200 ng/mL Benzodiazepine metabolites 200 ng/mL Cannabinoids (THC metabolites) 50 ng/mL Cocaine 300 ng/mL Opiates 300 ng/mL Methadone 300 ng/mL Phencyclidine (PCP) 25 ng/mL Testing has been performed FOR MEDICAL PURPOSES ONLY. LABORATORYOrdered By: SYSTEM SYSTEM on 06-29-2025 Albumin BCP dye [Mass/Vol] 4.2 G/dL Normal 3.4 - 4.8 G/dL AO ADM SS Albumin/Globulin [Mass ratio] 1.0 {ratio} Low 1.1 - 2.5 ratio AO ADM SS ALP [Catalytic activity/Vol] 105 U/L Normal 40 - 135 U/L AO ADM SS ALT With P-5'-P [Catalytic activity/Vol] 19 U/L Normal 14 - 59 U/L AO ADM SS AST With P-5'-P [Catalytic activity/Vol] 31 U/L Normal 10 - 40 U/L AO ADM SS Basophils (Bld) [#/Vol] 0.1 103/mcL Normal 0.0 - 0.3 10^3/mcL AO Workflow SS Basophils/100 WBC (Bld) 0.8 % Normal 0.0 - 2.5 % AO Workflow SS Bilirubin [Mass/Vol] 0.7 mg/dL Normal 0.2 - 1 .0 mg/dL AO ADM SS Comment on above: Interpretive Data: U se of this assay is not recommended for patients undergoing treatment with eltrombopag due to the potential for falsely elevated results. Calcium [Mass/Vol] 10.3 mg/dL High 8.4 - 10. 2 mg/dL AO ADM SS Chloride [Moles/Vol] 102 mmol/L Normal 98 - 10 7 mmol/L AO ADM SS CO2 [Moles/Vol] 28 mmol/L Normal 23 - 31 mmol/L AO ADM SS Creatinine [Mass/Vol] 0.61 mg/dL Normal 0.51 - 0.95 mg/dL AO ADM SS Electrolyte Balance 10.0 mEq/L Normal 4.0 - 15 .0 mEq/L AO ADM SS Eosinophil, Absolute 0.0 103/mcL Normal 0.0 - 0 .7 10^3/mcL AO Workflow SS Eosinophils/100 WBC (Bld) 0.1 % Normal 0.0 - 6.0 % AO Workflow SS Erythrocyte distribution width (RBC) [Ratio] 15.6 % High 11.5 - 15.5 % AO Workflow SS Estimated Glomerular Filtration Rate 94 ml/min/1.73sqm Invalid Interpretation Code AO Chemistry S Comment on above: Interpretive Data: Stages of Chronic Kidney Disease (CKD) Stage Description eGFR(ml/min/1.73 sq.m.) CKD 1 Normal kidney function or >=90 normal kindney function with possible kidney damage (ex. Proteinuria) CKD 2 Kidney damage with mild loss 60-89 of kidney function CKD 3a Mild to moderate loss of kidney 45-59 function CKD 3b Moderate to severe loss of 30-44 of kindey function CKD 4 Severe loss of kidney function 15-29 CKD 5 Kidney failure <15 Note: (go live 2024) the eGFR calculation was updated to the 2020 CKD-EPI creatinine equation without a race factor to calculate the eGFR results. Ethanol [Mass/Vol] 3 mg/dL Invalid Interpretation Code AO ADM SS Globulin 4.0 G/dL Normal 2.7 - 4.4 G/dL AO ADM SS Glucose [Mass/Vol] 155 mg/dL High 83 - 110 mg/dL AO ADM SS Hematocrit (Bld) [Volume fraction] 34.3 % Normal 34.0 - 46.0 % AO Workflow SS Hemoglobin (Bld) [Mass/Vol] 11.3 G/dL Low 12.0 - 16.0 G/dL AO Workflow SS Lymphocytes (Bld) [#/Vol] 1.5 103/mcL Normal 0.9 - 4.3 10^3/mcL AO Workflow SS Lymphocytes/100 WBC (Bld) 12.7 % Low 20.0 - 40.0 % AO Workflow SS MCH (RBC) [Entitic mass] 30.9 pg Normal 27.0 - 33.0 pg AO Workflow SS MCHC 32.9 G/dL Normal 32.0 - 36.0 G/dL AO Workflow SS MCV (RBC) [Entitic vol] 94.0 fL Normal 80.0 - 99.0 fL AO Workflow SS Monocyte distribution width Auto (Bld) [Entitic vol] 22.17 1 High 0.00 - 20.00 AO Workflow SS Comment on above: Result Comment: For adults in ED, MDW>20.0 may be associated with a higher risk of sepsis during the first 12hrs of hospital admission Monocytes (Bld) [#/Vol] 0.7 103/mcL Normal 0.1 - 1.4 10^3/mcL AO Workflow SS Monocytes/100 WBC (Bld) 5.6 % Normal 2.0 - 13.0 % AO Workflow SS Neutrophils (Bld) [#/Vol] 9.6 103/mcL High 2.3 - 8.1 10^3/mcL AO Workflow SS Neutrophils/100 WBC (Bld) 80.8 % High 50.0 - 75.0 % AO Workflow SS Platelet mean volume (Bld) [Entitic vol] 7.5 fL Normal 6.6 - 10.5 fL AO Workflow SS Platelets (Bld) [#/Vol] 679 103/mcL High 150 - 450 10^3/mcL AO Workflow SS Potassium [Moles/Vol] 4.2 mmol/L Normal 3.5 - 5.1 mmol/L AO ADM SS Protein [Mass/Vol] 8.2 G/dL Normal 6.4 - 8.2 G/dL AO ADM SS RBC (Bld) [#/Vol] 3.65 106/mcL Low 4.10 - 5.3 0 10^6/mcL AO Workflow SS Salicylates [Mass/Vol] 1.2 mg/dL Low 2.8 - 20.0 mg/dL AO ADM SS Sodium [Moles/Vol] 140 mmol/L Normal 136 - 145 mmol/L AO ADM SS Urea nitrogen [Mass/Vol] 14 mg/dL Normal 7 - 18 mg/dL AO ADM SS Urea nitrogen/Creatinine [Mass ratio] 23 ratio Normal 7 - 27 ratio AO ADM SS WBC (Bld) [#/Vol] 11.8 103/mcL High 4.5 - 10.8 10^3/mcL AO Workflow SS LABORATORYOrdered By: Radha Santillan on 06-29-2025 fentaNYL Screen Ql (U) Negative 2 *NA* (06/29/25 5:39 PM) Invalid Interpretation Code Negative AH ADM SS Comment on above: Interpretive Data: T esting has been performed FOR MEDICAL PURPOSES ONLY. oxyCODONE Ql (U) Negative 3 *NA* (06/29/25 5:39 PM) Invalid Interpretation Code Negative AH ADM SS Comment on above: Interpretive Data: T esting has been performed FOR MEDICAL PURPOSES ONLY. SALon 06-29-2025 Salicylate Level 1.2 mg/dL Low 2.8-20.0 [facility] Comment on above: Performed By: #### A FERNANDO THOMAS, ANEU, ALC, GFR, AYAKA, CBC, CMP, ACETA #### [address] [address] UDRUGon 06-29-2025 Amphetamine (u) Negative Normal Negative [facility] Comment on above: Performed By: #### A FERNANDO THOMAS, ANEU, ALC, GFR, AYAKA, CBC, CMP, ACETA #### [address] [address] Barbiturate (u) Negative Normal Negative [facility] Comment on above: Performed By: #### A FERNANDO THOMAS, ANEU, ALC, GFR, AYAKA, CBC, CMP, ACETA #### [address] [address] Benzodiazepine (u) Negative Normal Negative [facility] Comment on above: Performed By: #### A FERNANDO THOMAS, ANEU, ALC, GFR, AYAKA, CBC, CMP, ACETA #### [address] [address] Cannabinoid (u) Negative Normal Negative [facility] Comment on above: Performed By: #### A DIFFFERNANDO, ANEU, ALC, GFR, AYAKA, CBC, CMP, ACETA #### [address] [address] Cocaine Ql (U) Negative Normal Negative [facility] Comment on above: Performed By: #### A FERNANDO THOMAS, ANEU, ALC, GFR, AYAKA, CBC, CMP, ACETA #### [place] [address] Methadone Ql (U) Negative Normal Negative [facility] Comment on above: Performed By: #### A FERNANDO THOMAS, ANEU, ALC, GFR, AYAKA, CBC, CMP, ACETA #### [place] [address] Opiate (u) Negative Normal Negative [facility] Comment on above: Performed By: #### A FERNANDO THOMAS, ANEU, ALC, GFR, AYAKA, CBC, CMP, ACETA #### [place] [id number] PCP (u) Negative [facility] [facility] Comment on above: Performed By: #### A FERNANDO THOMAS, ANEU, ALC, GFR, AYAKA, CBC, CMP, ACETA #### [place] [address] Urine Drugs screened: See Below Normal [facility] Comment on above: Result Comment: This drug screen is a presumptive screening only. No confirmation will be performed unless requested. Drugs screened include: Threshold Amphetamines/Methamphetamines 1,000 ng/mL Barbiturates 200 ng/mL Benzodiazepine metabolites 200 ng/mL Cannabinoids (THC metabolites) 50 ng/mL Cocaine 300 ng/mL Opiates 300 ng/mL Methadone 300 ng/mL Phencyclidine (PCP) 25 ng/mL Testing has been performed FOR MEDICAL PURPOSES ONLY. Performed By: #### A FERNANDO THOMAS, ANEU, ALC, GFR, AYAKA, CBC, CMP, ACETA #### [address] [address] URINon 06-29-2025 Color (U) Yellow Normal [facility] Comment on above: Performed By: #### U FENTS, UOXYS #### [place] [address] #### UDRUG, UADIP #### [address] [address] Glucose (U) [Mass/Vol] Negative Normal Negative [facility] Comment on above: Performed By: #### U FENTS, UOXYS #### [place] [address] #### UDRUG, UADIP #### [address] [address] Ketones Ql (U) Negative Normal Negative [facility] Comment on above: Performed By: #### U FENTS UOXYS #### [place] [address] #### UDRUG, UADIP #### [address] [address] UA Appear Clear Normal Clear [facility] Comment on above: Performed By: #### U FENTS, UOXYS #### [place] [address] #### UDRUG, UADIP #### [address] [address] UA Blood Negative Normal Negative [facility] Comment on above: Performed By: #### U FENTS, UOXYS #### [place] [address] #### UDRUG, UADIP #### [address] [address] UA Leuk Est Negative Normal Negative [facility] Comment on above: Performed By: #### U FENTS, UOXYS #### [place] [address] #### UDRUG, UADIP #### [address] [place] [address] UA Nitrite Negative Normal Negative [facility] Comment on above: Performed By: #### U DENISE UOXYS #### [place] [address] #### UDRUG, UADIP #### [address] [address] UA pH 7.0 Normal 5.0 - 8.0 [facility] Comment on above: Performed By: #### U DENISE UOXYS #### [place] [address] #### UDRUG, UADIP #### [address] [address] UA Protein Trace Normal Negative [facility] Comment on above: Performed By: #### Jessica WALKER UOXYS #### [place] [address] #### UDRUG, UADIP #### [address] [address] UA Spec Grav 1.015 Normal 1.015-1.025 [facility] Comment on above: Performed By: #### Jessica WALKER UOXYS #### [place] [address] #### UDRUG, UADIP #### [address] [address] UA Specimen Type Not Given Normal [facility] Comment on above: Performed By: #### U DENISE UOXYS #### [place] [address] #### UDRUG, UADIP #### [place] [address] UA Urobilinogen 1.0 E.U./dL Normal 0.2-1.0 [facility] Comment on above: Performed By: #### Jessica WALKER UOXYS #### [place] [address] #### UDRUG, UADIP #### [facility] [address] [place], [place] [address] Urobilinogen (U) [Mass/Vol] Negative Normal Negative [facility] Comment on above: Performed By: #### U FENTS, UOXYS #### [facility] [address] [place] [address] #### UDRUG, UADIP #### [place] [address] [place], [place] [address] 12 Lead EKGon 06-28-2025 12 Lead EKG [facility] Cardiovascular Services [address] [place] [address] 12 Lead EKG 06/28/25 1556 MR#: [id number] Acct: [id number] Name: RICHIE ARMAS Rep #: [id number] : 1950 75 From: Edil Hong MD Attending Dr: Status: DEP ER Ordering Dr: Tammi Benedict Date: 06/28/25 Location: ED Sex: F C Admitted: Test Reason : WEAKNESS/LIGHTHEADED Blood Pressure : */* mmHG Vent. Rate : 81 BPM Atrial Rate : 81 BPM P-R Int : 144 ms QRS Dur : 82 ms QT Int : 418 ms P-R-T Axes : 47 68 132 degrees QTcB Int : 485 ms Normal sinus rhythm T wave abnormality, consider anterior ischemia QTcB >= 480 msec Abnormal ECG Confirmed by EDIL HONG MD ([id number]), news videotape editor ENZO PATE ([id number]) on 07/01/2025 1:05:48 PM Referred By: TRISH Confirmed By: EDIL HONG MD 07/01/25 1305 Date Edil Hong MD CC: Dr. Yefri Ritter DO; Dr. Narinder Crum MD; BRAYDEN Small Signed Normal [facility] [place] [facility] Absolute lymphocyte countOrd ered By: Tammi Benedict on 06-28-2025 Lymphocytes Auto (Unsp spec) [#/Vol] 1.82 10*3/uL 0.83-4.51 [facility] [place] [facility] Absolute neutrophil countOrd ered By: Tammi Benedict on 06-28-2025 Neutrophils (Bld) [#/Vol] 8.1 10*3/uL High 2.0-7.7 [facility] [place] [facility] Anion gap in Serum or Plasma Ordered By: Tammi Benedict on 06-28-2025 Anion gap [Moles/Vol] 15 mmol/L 5-[address] [facility] Automated lymphocyte count a s percentage of total leukocytesOrdered By: Tammi Benedict on 06-28-2025 Lymphocytes/100 WBC Auto (Unsp spec) 16.7 % Low 19-41 [facility] [place] [facility] BUN/creatinine ratioOrdered By: Tammi Benedict on 06-28-2025 Urea nitrogen/Creatinine [Mass ratio] 18.3 mg/mg 10- [facility] [place] [facility] Basic Metabolic Profile (BMP )on 06-28-2025 BUN/CRE 18.3 RATIO Normal - [facility] [place] [facility] Comment on above: Performed By: #### L 100.0100, L500.2500 #### [facility] [address] [place], [address] Calcium [Mass/Vol] 10.0 mg/dL Normal 7.6-11.0 [facility] Comment on above: Performed By: #### L 100.0100, L500.2500 #### [facility] [place] [facility] [address] [place], [address] Chloride [Moles/Vol] 101 mmol/L Normal 98-108 [facility] Comment on above: Performed By: #### L 100.0100, L500.2500 #### [facility] [place] [facility] [address] [place], [address] CO2 [Moles/Vol] 21.7 mmol/L Normal 21.0-32.0 [facility] [place] [facility] Comment on above: Performed By: #### L 100.0100, L500.2500 #### [facility] [place] [facility] [address] [place], [address] Creatinine [Mass/Vol] 0.68 mg/dL Low 0.70-1.[address] [facility] Comment on above: Performed By: #### L 100.0100, L500.2500 #### [facility] [place] [facility] [address] [place], [address] ECRCL 51.04 ml/min Normal 50-250 [facility] [place] [facility] Comment on above: Performed By: #### L 100.0100, L500.2500 #### [facility] [place] [facility] [address] [place], [address] GAP 15 Normal 5-15 [facility] [place] [facility] Comment on above: Performed By: #### L 100.0100, L500.2500 #### [facility] [place] [facility] [address] [place], [address] GFR/1.73 sq M.predicted among non-blacks MDRD (S/P/Bld) [Vol rate/Area] 91 mL/min/{1.73_m2} Normal >60 [facility] [place] [facility] Comment on above: Result Comment: mL/m in/1.73m2 CKD-EPI Creatinine Equation (2020) Performed By: #### L 100.0100, L500.2500 #### [facility] [place] [facility] [address] [place], [address] Glucose [Mass/Vol] 124 mg/dL High 70-99 [facility] Comment on above: Performed By: #### L 100.0100, L500.2500 #### [facility] [place] [facility] [address] [place], [address] Potassium [Moles/Vol] 4.4 mmol/L Normal 3.3-5.[address] [facility] Comment on above: Performed By: #### L 100.0100, L500.2500 #### [facility] [place] [facility] [address] [place], [address] Sodium [Moles/Vol] 137 mmol/L Normal 133-145 [facility] Comment on above: Performed By: #### L 100.0100, L500.2500 #### [facility] [place] [facility] [address] [place], [address] Urea nitrogen [Mass/Vol] 12 mg/dL Normal 4-19 [facility] [place] [facility] Comment on above: Performed By: #### L 100.0100, L500.2500 #### [facility] [address] [place], [address] Basophil percentageOrdered B y: Tammi Lizamaalfonzo on 06-28-2025 Basophils/100 WBC (Bld) 0.5 % 0-1 [facility] Bilirubin Test strip Ql (U)O rdered By: Tammi Marichuy on 06-28-2025 Bilirubin Ql (U) Negative Negative [facility] CBC W/Diff, Automatedon 08 Absolute Lymph 1.82 X10 3/uL Normal 0.83-4.51 [facility] Comment on above: Performed By: #### L 100.0100, L500.2500 #### [facility] [address] [place], [address] Absolute Neut 8.1 X10 3/uL High 2.0-7.7 [facility] [place] [facility] Comment on above: Performed By: #### L 100.0100, L500.2500 #### [facility] [address] [place], [address] Basophils/100 WBC (Bld) 0.5 % Normal 0-1 [facility] Comment on above: Performed By: #### L 100.0100, L500.2500 #### [facility] [place] [facility] [address] [place], [address] Eosinophils/100 WBC (Bld) 0.2 % Normal 0-5 [facility] [place] [facility] Comment on above: Performed By: #### L 100.0100, L500.2500 #### [facility] [place] [facility] [address] [place], [address] Erythrocyte distribution width (RBC) [Ratio] 15.5 % High 11.6-14.6 [facility] Comment on above: Performed By: #### L 100.0100, L500.2500 #### [facility] [place] [facility] [address] [place], [address] Hematocrit (Bld) [Volume fraction] 31.8 % Low 37-47 [facility] [place] [facility] Comment on above: Performed By: #### L 100.0100, L500.2500 #### [facility] [place] [facility] [address] [place], [address] Hemoglobin (Bld) [Mass/Vol] 10.5 g/dL Low 12.0-15.0 [facility] [place] [facility] Comment on above: Performed By: #### L 100.0100, L500.2500 #### [facility] [place] [facility] [address] [place], [address] IG% 0.700 Normal 0.0-0.9 [facility] [place] [facility] Comment on above: Result Comment: IG% - Immature Granulocytes (promyelocytes, myelocytes and metamyelocytes) > 1% indicates that a LEFT SHIFT is Present. Performed By: #### L 100.0100, L500.2500 #### [facility] [address] [place], [address] Lymphocytes/100 WBC (Bld) 16.7 % Low 19-41 [facility] Comment on above: Performed By: #### L 100.0100, L500.2500 #### [facility] [address] [place], [address] MCH (RBC) [Entitic mass] 31.4 pg Normal 27.0-32.0 [facility] Comment on above: Performed By: #### L 100.0100, L500.2500 #### [facility] [address] [place], [address] MCHC (RBC) [Mass/Vol] 33.0 g/dL Normal 32-[address] [facility] Comment on above: Performed By: #### L 100.0100, L500.2500 #### [facility] [address] [place], [address] MCV (RBC) [Entitic vol] 95.2 fL Normal 81-99 [facility] Comment on above: Performed By: #### L 100.0100, L500.2500 #### [facility] [address] [place], [address] Monocytes/100 WBC (Bld) 7.7 % Normal 0-10 [facility] Comment on above: Performed By: #### L 100.0100, L500.2500 #### [facility] [place] [facility] [address] [place], [address] Neutrophils/100 WBC (Bld) 74.2 % High 47-70 [facility] Comment on above: Performed By: #### L 100.0100, L500.2500 #### [facility] [address] [place], [address] Nucleated RBC (Bld) [#/Vol] 0 10*3/uL Normal 0-5 [facility] Comment on above: Performed By: #### L 100.0100, L500.2500 #### [facility] [address] [place], [address] Platelet mean volume (Bld) [Entitic vol] 10.0 fL Normal 6.2-12.0 [facility] Comment on above: Performed By: #### L 100.0100, L500.2500 #### [facility] [address] [place], [address] Platelets (Bld) [#/Vol] 583 10*3/uL High 150-450 [facility] Comment on above: Performed By: #### L 100.0100, L500.2500 #### [facility] [address] [place], [address] RBC (Bld) [#/Vol] 3.34 10*6/uL Low 4.2-5.4 [facility] Comment on above: Performed By: #### L 100.0100, L500.2500 #### [facility] [address] [place], [address] RDW SD 52.2 fl High 35.1-43.9 [facility] Comment on above: Performed By: #### L 100.0100, L500.2500 #### [facility] [address] [place], [address] WBC (Bld) [#/Vol] 10.9 10*3/uL Normal 4.4-11.0 [facility] Comment on above: Performed By: #### L 100.0100, L500.2500 #### [facility] [address] [place], [address] Carbon dioxide, total [Moles /volume] in Central venous bloodOrdered By: Tammi Benedict on 06-28-2025 CO2 [Moles/Vol] 21.7 mmol/L 21.0-32.0 [facility] Chest 1 View (Portable)on Chest 1 View (Portable) [facility] Imaging Services [address] [facility] [place] [address] Chest 1 View (Portable) MR#: [id number] Acct: [id number] Name: RICHIE ARMAS Rep #: [id number] : 1950 F 75 From: Albaro Lott MD PCP: Dr. Narinder Crum MD Status: DEP ER Study: Chest 1 View (Portable) Date of Exam: 06/28/25 Exam# [id number] Ordering Dr: Tammi Benedict PROCEDURE: CHEST 1 VIEW (PORTABLE) 06/28/2025 REASON FOR EXAM: WEAKNESS TECHNIQUE: Frontal view of the chest. COMPARISON: 12/20/2023. FINDINGS: Lungs/Pleura: Clear. No pneumothorax or pleural effusion. Heart/Mediastinum: Top-normal in size. Evidence of prior CABG with sternotomy wires and multiple mediastinal surgical clips. Mild calcification of the aortic arch. Bones/Soft tissues: Mild degenerative changes of the spine. RAD/Chest 1 View (Portable) IMPRESSION: No acute cardiopulmonary disease. Reading Location: [id number] CC: Dr. 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 Narinder Crum MD Status:DEP ER Location: ED HPI History of Present Illness Chief Complaint: Abn Labs Narrative Narrative: 75-year-old female with past medical history of HTN, HLD, recent CABG presents with 1 day of generalized weakness and states she would like her blood work checked. She presented to [facility] ED with chest pain and was diagnosed with an NSTEMI and was admitted from 06/14 through 06/22 with a CABG done on 06/[address] Johnston. After going home she felt weak and had some difficulty speaking and processing so she was readmitted from 06/24 through 06/27 for altered mental status. She states she had an MRI of her brain that was negative for stroke. She went home last night, had some diarrhea overnight, has not been eating and drinking much and just feels extremely tired and weak today prompting her to come in. She has 2/10 pain over the incision site and is taking Tylenol but denies any chest pain or shortness of breath. No fever, chills, or cough. No vomiting or abdominal pain. No urinary symptoms. [facility] Medical History Chronic idiopathic constipation CKD (chronic [...] Time cyclobenzaprine HCl (From AdvReac Other Verified 06/28/25 15:46 Flexeril) promethazine (From Phenergan) AdvReac Other Verified 06/28/25 15:46 Family History Father Heart disease CAD (coronary artery disease) Hypertension Myocardial infarction HLD (hyperlipidemia) Mother Hypertension Surgical History Previous back surgery H/O wrist surgery History of ankle surgery H/O shoulder surgery Social History household members: spouse Smoking Status: Never smoker alcohol intake: current alcohol intake frequency: holidays/special occasions only substance use type: does not use ROS ROS ED ROS Narrative Constitutional: Negative for fever, chills. CVS: Negative for chest pain, syncope. Respiratory: Negative for shortness of breath, cough. GI: Positive for diarrhea. Negative for abdominal pain, nausea, vomiting. : Negative for dysuria. EXAM Physical Exam Narrative Exam Narrative: CONST: Patient sitting in no acute distress. EYES: Normal inspection. ENT: Normal inspection, moist mucous membranes. NECK: Normal inspection. RESP: No respiratory distress, CTAB. CVS: Regular rate and rhythm, no murmur, no gallop. ABD: Soft and nontender, no guarding or rebound, nondistended. SKIN: Color normal, no rash, warm, dry, intact. EXTREMITIES: Normal appearance, no pedal edema. NEURO: Alert and answering questions appropriately. PSYCH: Normal affect. Const Vital Signs: 06/28/25 15:46 06/28/25 16:11 06/28/25 17:38 Temperature 98.7 F 98.7 F Temperature Source Oral Pulse Rate 81 81 Respiratory Rate 18 18 Respiratory Effort Normal Non-Labored Respiratory Pattern Normal Blood Pressure 168/82 H 168/82 H Blood Pressure Mean 110 110 Pulse Ox 100 100 Oxygen Delivery Method Room Air 06/28/25 17:44 Temperature 98.7 F Temperature Source Pulse Rate 81 Respiratory Rate 18 Respiratory Effort Respiratory Pattern Blood Pressure 168/82 H Blood Pressure Mean 110 Pulse Ox 100 Oxygen Delivery Method Physical Exam Const Vital Signs: 06/28/25 15:46 06/28/25 16:11 06/28/25 17:38 Temperature 98.7 F 98.7 F (more content not included)... Normal [facility] Eosinophil percentageOrdered By: Tammi Benedict on 06-28-2025 Eosinophils/100 WBC (Bld) 0.2 % 0-5 [facility] Erythrocyte distribution wid th ratioOrdered By: Tammi Benedict on 06-28-2025 Erythrocyte distribution width (RBC) [Ratio] 15.5 % High 11.6-14.6 [facility] Erythrocyte distribution wid th standard deviationOrdered By: Tammi Benedict on 06-28-2025 Erythrocyte distribution width (RBC) [Ratio] 52.2 fl High 35.1-43.9 [facility] Glomerular filtration rate ( GFR) estimation/1.73 sq m using serum, plasma, or whole bOrdered By: Tammi Benedict on 06-28-2025 GFR/1.73 sq M.predicted among non-blacks MDRD (S/P/Bld) [Vol rate/Area] 91 mL/min/{1.73_m2} >60 [facility] Comment on above: mL/min/1.73m2 CKD-EP I Creatinine Equation (2020) Hematocrit Auto (Bld) [Volum e fraction]Ordered By: Tammi Benedict on 06-28-2025 Hematocrit (Bld) [Volume fraction] 31.8 % Low 37-47 [facility] Hemoglobin measurementOrdere d By: Tammi Benedict on 06-28-2025 Hemoglobin (Bld) [Mass/Vol] 10.5 g/dL Low 12.0-15.0 [facility] Immature granulocytes/100 WB C Auto (Bld)Ordered By: Tammi Benedict on 06-28-2025 Immature granulocytes/100 WBC (Bld) 0.700 % 0.0-0.9 [facility] Comment on above: IG% - Immature Granu locytes (promyelocytes, myelocytes and metamyelocytes) > 1% indicates that a LEFT SHIFT is Present. Ketones Test strip Ql (U)Ord ered By: Tammi Benedict on 06-28-2025 Ketones Ql (U) Negative Negative [facility] MCV (mean corpuscular volume ) determinationOrdered By: Tammi Benedict on 06-28-2025 MCV (RBC) [Entitic vol] 95.2 fL 81-99 [facility] Mean corpuscular hemoglobin (MCH) determinationOrdered By: Tammi Benedict on 06-28-2025 MCH (RBC) [Entitic mass] 31.4 pg 27.0-32.0 [facility] Mean corpuscular hemoglobin concentration (MCHC) determinationOrdered By: Tammi Benedict on 06-28-2025 MCHC (RBC) [Mass/Vol] 33.0 g/dL 32-[address] [facility] Mean platelet volume determi nationOrdered By: Tammi Benedict on 06-28-2025 Platelet mean volume (Bld) [Entitic vol] 10.0 fL 6.2-12.0 [facility] Microscopic analysis of urin e for red blood cells (RBC)Ordered By: Tammi Benedict on 06-28-2025 Microscopic analysis of urine for red blood cells (RBC) 0-5 SEEN /hpf 0-5 [facility] Monocyte percentageOrdered B y: Tammi Benedict on 06-28-2025 Monocytes/100 WBC (Bld) 7.7 % 0-10 [facility] Mucus LM Ql (Urine sed)Order ed By: Tammi Benedict on 06-28-2025 Mucus Ql (Urine sed) 0 SEEN /hpf [facility] Neutrophil percentageOrdered By: Tammi Benedict on 06-28-2025 Neutrophils/100 WBC (Bld) 74.2 % High 47-70 [facility] Nitrite Test strip Ql (U)Ord ered By: Tammi Benedict on 06-28-2025 Nitrite Ql (U) Negative Negative [facility] Nucleated red blood cell per centageOrdered By: Tammi Benedict on 06-28-2025 Nucleated RBC/100 WBC (Bld) [Ratio] 0 % 0-5 [facility] Platelet countOrdered By: Josselyn Benedict on 06-28-2025 Platelets (Bld) [#/Vol] 583 10*3/uL High 150-450 [facility] Potassium measurement (mass/ volume)Ordered By: Tammi Benedict on 06-28-2025 Potassium (Unsp spec) [Mass/Vol] 4.4 mmol/L 3.3-5.1 [facility] Protein Test strip Ql (U)Ord ered By: Tammi Benedict on 06-28-2025 Protein Ql (U) 15 mg/dl High Negative [facility] RBC Auto (Bld) [#/Vol]Ordere d By: Tammi Benedict on 06-28-2025 RBC (Bld) [#/Vol] 3.34 10*6/uL Low 4.2-5.4 [facility] Serum creatinine measurement (mass/volume)Ordered By: Tammi Benedict on 06-28-2025 Creatinine [Mass/Vol] 0.68 mg/dL Low 0.70-1.[address] [facility] Serum glucose measurement (m ass/volume)Ordered By: Tammi Benedict on 06-28-2025 Glucose [Mass/Vol] 124 mg/dL High 70-99 [facility] Serum or plasma calcium jill urement (mass/volume)Ordered By: Tammi Benedict on 06-28-2025 Calcium [Mass/Vol] 10.0 mg/dL 7.6-11.0 [facility] Serum or plasma urea nitroge n measurement (mass/volume)Ordered By: Tammi Benedict on 06-28-2025 Urea nitrogen [Mass/Vol] 12 mg/dL 4-19 [facility] Sodium levelOrdered By: Tammi Benedict on 06-28-2025 Sodium [Moles/Vol] 137 mmol/L 133-145 [facility] Squamous epithelial cells de tection in urine sediment by light microscopyOrdered By: Tammi Benedict on 06-28-2025 Epithelial cells.squamous LM Ql (Urine sed) 0-5 SEEN /hpf 5-10 [facility] Urinalysis, Completeon 06-28 EPI,SQUAMOUS 0-5 SEEN Normal 5-10 [facility] Comment on above: Order Comment: CLEAN CATCH Performed By: #### L 400.0001 #### [facility] [address] [place], [address] RBC 0-5 SEEN Normal 0-5 [facility] Comment on above: Order Comment: CLEAN CATCH Performed By: #### L 400.0001 #### [facility] [address] [place], [address] WBC 0-5 SEEN Normal 0-5 [facility] Comment on above: Order Comment: CLEAN CATCH Performed By: #### L 400.0001 #### [facility] [address] [place], [address] BACTERIA 0 SEEN Normal None Seen [facility] Comment on above: Order Comment: CLEAN CATCH Performed By: #### L 400.0001 #### [facility] [address] [place], [address] Mucus Ql (Urine sed) 0 SEEN Normal [facility] Comment on above: Order Comment: CLEAN CATCH Performed By: #### L 400.0001 #### [facility] [place], [address] Urine clarityOrdered By: Kenya Benedict on 06-28-2025 Clarity (U) Clear Clear [facility] Urine color determinationOrd ered By: Tammi Benedict on 06-28-2025 Color (U) Straw Yellow [facility] Urine glucose detectionOrder ed By: Tammi Benedict on 06-28-2025 Glucose Ql (U) Normal mg/dl Normal [facility] Urine leukocyte esterase det ection by dipstickOrdered By: Tammi Benedict on 06-28-2025 Leukocyte esterase Test strip Ql (U) Negative Negative [facility] Urine pHOrdered By: Tammi mejía on 06-28-2025 pH (U) 6.5 [pH] 5.0 - 8.0 [facility] Urine sediment bacteria coun t by microscopy (number/high power field)Ordered By: Tammi Benedict on 06-28-2025 Bacteria LM.HPF (Urine sed) [#/Area] 0 /[HPF] None Seen [facility] Urine specific gravity measu rementOrdered By: Tammi Benedict on 06-28-2025 Specific gravity (U) [Rel density] 1.015 1.002-1.030 [facility] Urine urobilinogen measureme ntOrdered By: Tammi Benedict on 06-28-2025 Urobilinogen Ql (U) Normal mg/dl Normal [facility] White blood cell (WBC) count Ordered By: Tammi Benedict on 06-28-2025 WBC (Bld) [#/Vol] 10.9 10*3/uL 4.4-11.0 [facility] White blood cell countOrdere d By: Tammi Benedict on 06-28-2025 White blood cell count 0-5 SEEN /hpf 0-5 [facility] [id number] 06-27-2025 [id number] Home Health Care Services - [facility], [address] [id number] Patient/Family Choice Normal [facility] [id number] [facility] [id number] [facility] [phone] Discharged to home w ith family , [facility] wset up , son has resources . Patient has transport to home . [facility] [id number] Patient Choice Patient Name: RICHIE ARMAS Date of : 1950 Normal [facility] [id number] [facility] Cobalamin (Vitamin B12) [Mas s/Vol]on 06-27-2025 Interpretation and review of laboratory results Normal [facility] Laboratory - Chemistry and C hemistry - challengeon 06-27-2025 Cobalamin (Vitamin B12) [Mass/Vol] 712 pg/mL 213 - 816 pg/mL [facility] Nursing Noteon 06-27-2025 Nursing Note Pt given discharge instructions with son present and . IV out. Tele off. Normal [facility] Progress Noteon 06-27-2025 Progress Note Normal [facility] VITAMIN B12on 06-27-2025 Cobalamin (Vitamin B12) [Mass/Vol] 712 pg/mL Normal 213-816 [facility] Comment on above: Performed By: #### L [id number] ####Flight Line Service Attendant: MIGUEL LEAL ([phone])[address] [id number] 06-26-2025 [id number] After being visited by [facility] and nursing pipe fitter supervisor maintenance, pt more calm and agreeable to care. Pt apologetic about earlier behavior. Pt assured that all is well. Normal [facility] [id number] 06-26-2025 [id number] Normal [facility] [id number] 06-26-2025 [id number] [facility] Nursing Noteon 06-26-2025 Nursing Note Co sign Khushi murrell RN [facility] Nursing Note Normal [facility] Progress Noteon 06-26-2025 Progress Note Normal [facility] Progress [facility] Progress Note Normal [facility] Progress Note Nutrition rescreen completed. Chart reviewed. Patient to be monitored and followed by the diet nuclear test technician. BEENA Marcos Normal [facility] Progress Note Normal [facility] [id number] 06-25-2025 [id number] Patient is currently active with [facility]. The patient is currently receiving SN/PT services through the agency. Art Historian to continue to follow. Normal [facility] [id number] 06-25-2025 [id number] PCP follow up scheduled. Follow up with Narinder Crum Tuesday at 2:50 PM Follow up from [facility]. [facility]. [phone] Normal [facility] [id number] Normal [facility] CBC (HEMOGRAM)on 06-25-2025 Erythrocyte distribution width (RBC) [Ratio] 14.8 % Normal 11.5-15.0 [facility] Comment on above: Performed By: #### L [id number] ####Flight Line Service Attendant: MIGUEL LEAL ([phone])[address] Hematocrit (Bld) [Volume fraction] 34.3 % Low 35.0-47.0 [facility] Comment on above: Performed By: #### L [id number] ####Flight Line Service Attendant: MIGEUL LEAL ([phone])[address] Hemoglobin (Bld) [Mass/Vol] 10.9 g/dL Low 11.7-16.0 [facility] Comment on above: Performed By: #### L [id number] ####Flight Line Service Attendant: MIGUEL [phone])[address] MCH (RBC) [Entitic mass] 30.1 pg Normal 26.0-34.0 [facility] Comment on above: Performed By: #### L [id number] ####Flight Line Service Attendant: MIGUEL [phone])[facility] ([facility])[address] [place] [address] MCHC 31.8 % Normal 30.5-36.0 [facility] Comment on above: Performed By: #### L [id number] ####Flight Line Service Attendant: MIGUEL LEAL ([phone])[facility] ([facility])[address] [place] [address] MCV (RBC) [Entitic vol] 94.8 fL Normal 77.0-99.0 S [facility] Comment on above: Performed By: #### L [id number] ####Flight Line Service Attendant: MIGUEL LEAL ([phone])[facility] ([facility])[address] [place] [address] Platelet mean volume (Bld) [Entitic vol] 10.1 fL Normal 9.0-12.7 [facility] Comment on above: Performed By: #### L [id number] ####Flight Line Service Attendant: MIGUEL LEAL ([phone])[facility] ([facility])[address] [place] [address] Platelets (Bld) [#/Vol] 372 10*3/uL Normal 140-440 [facility] Comment on above: Performed By: #### L [id number] ####Flight Line Service Attendant: MIGUEL LEAL ([phone])[facility])[address] [place] [address] RBC (Bld) [#/Vol] 3.62 10*6/uL Low 3.80-5.20 [facility] Comment on above: Performed By: #### L [id number] ####Flight Line Service Attendant: MIGUEL LEAL ([phone])[facility] ([facility])[address] [place] [address] [place] WBC (Bld) [#/Vol] 6.5 10*3/uL Normal 3.6-10.7 [facility] Comment on above: Performed By: #### L [id number] ####Flight Line Service Attendant: MIGUEL LEAL ([phone])[facility] ([facility])[address] [place] [address] CBC panel Auto (Bld)on 06-25 Erythrocyte distribution width (RBC) [Ratio] 14.8 % 11.5 - 15.0 % [facility] Hematocrit (Bld) [Volume fraction] 34.3 % Low 35.0 - 47.0 % [facility] Hemoglobin (Bld) [Mass/Vol] 10.9 g/dL Low 11.7 - 16.0 g/dL [facility] Interpretation and review of laboratory results Abnormal [facility] MCH (RBC) [Entitic mass] 30.1 pg 26.0 - 34.0 pg [facility] MCHC (RBC) [Mass/Vol] 31.8 % 30.5 - 36.0 % [facility] MCV (RBC) [Entitic vol] 94.8 fL 77.0 - 99.0 fL [facility] Platelet mean volume (Bld) [Entitic vol] 10.1 fL 9.0 - 12.7 fL [facility] Platelets (Bld) [#/Vol] 372 10*3/uL 140 - 440 10*3/uL [facility] RBC (Bld) [#/Vol] 3.62 10*6/uL Low 3.80 - 5.2 0 10*6/uL [facility] WBC (Bld) [#/Vol] 6.5 10*3/uL 3.6 - 10.7 10*3/uL [facility] COMPREHENSIVE METABOLIC PANE [place] 06-25-2025 Albumin [Mass/Vol] 3.6 g/dL Normal 3.4-4.8 [facility] Comment on above: Performed By: #### L [id number], [id number] ####Flight Line Service Attendant: MIGUEL LEAL ([phone])[facility] [place] [address] ALP [Catalytic activity/Vol] 75 U/L Normal 40-150 [facility] Comment on above: Performed By: #### L [id number], [id number] ####Flight Line Service Attendant: MIGUEL LEAL ([phone])[facility] ([facility])[address] [place] [address] ALT [Catalytic activity/Vol] 11 U/L Normal <30 [facility] Comment on above: Performed By: #### L [id number], [id number] ####Flight Line Service Attendant: MIGUEL LEAL ([phone])[facility] ([facility])[address] [place] [address] Anion gap [Moles/Vol] 14 mmol/L High 3-13 [facility] Comment on above: Performed By: #### L [id number], LAB17 ####Flight Line Service Attendant: MIGUEL LEAL ([phone])[facility] ([facility])[address] [place] [address] AST [Catalytic activity/Vol] 40 U/L High <34 [facility] Comment on above: Performed By: #### L [id number], [id number] ####Flight Line Service Attendant: MIGUEL LEAL ([phone])[facility] ([facility])[address] [place] [address] Bilirubin [Mass/Vol] 0.7 mg/dL Normal <1.2 [facility] Comment on above: Performed By: #### L [id number], LAB17 ####Flight Line Service Attendant: MIGUEL LEAL ([phone])[facility] ([facility])[address] [place] [address] Calcium [Mass/Vol] 9.0 mg/dL Normal 8.8-10.0 [facility] Comment on above: Performed By: #### L [id number], [id number] ####Flight Line Service Attendant: MIGUEL LEAL ([phone])[facility] ([facility])[address] [place] [address] [place] Chloride [Moles/Vol] 106 mmol/L Normal 98-107 [facility] Comment on above: Performed By: #### L [id number], LAB17 ####Flight Line Service Attendant: MIGUEL LEAL ([phone])[facility])[address] [place] [address] CO2 [Moles/Vol] 20 mmol/L Low 23-31 [facility] Comment on above: Performed By: #### L [id number], LAB17 ####Flight Line Service Attendant: MIGUEL LEAL ([phone])[facility])[address] [place] [address] Creatinine [Mass/Vol] 0.68 mg/dL Normal 0.57-1.11 [facility] Comment on above: Performed By: #### L [id number], LAB17 ####Flight Line Service Attendant: MIGUEL LEAL ([phone])[facility] ([facility])[address] [place] [address] [place] GLOMERULAR FILTRATION RATE ML/MIN/1.73 SQ M.PREDICTED >90.0 Normal >60.0 [facility] Comment on above: Result Comment: Calc ulation based on the Chronic Kidney Disease Epidemiology Collaboration (CKD-EPI) equation refit without adjustment for race Performed By: #### L [id number], LAB17 ####Flight Line Service Attendant: MIGUEL LEAL ([phone])[facility] ([facility])[address] [place] [address] [place] Glucose [Mass/Vol] 104 mg/dL Normal 82-115 [facility] Comment on above: Performed By: #### L [id number], LAB17 ####Flight Line Service Attendant: MIGUEL LEAL ([phone])[facility])[address] [place] [address] [place] Potassium [Moles/Vol] 3.6 mmol/L Normal 3.5-5.1 [facility] Comment on above: Result Comment: [facility] potassium values may be up to 0.5 mmol/L lower than serum values. Performed By: #### L [id number], LAB17 ####Flight Line Service Attendant: MIGUEL LEAL ([phone])[facility] [place] [address] [place] Protein [Mass/Vol] 6.9 g/dL Normal 6.4-8.3 [facility] Comment on above: Performed By: #### L [id number], LAB17 ####Flight Line Service Attendant: MIGUEL LEAL ([phone])[facility] ([facility])[address] [place] [address] [place] Sodium [Moles/Vol] 140 mmol/L Normal 136-145 [facility] Comment on above: Performed By: #### L [id number], LAB17 ####Flight Line Service Attendant: MIGUEL LEAL ([phone])[facility])[address] [place] [address] Urea nitrogen [Mass/Vol] 11 mg/dL Normal 9-23 [facility] Comment on above: Performed By: #### L [id number], LAB17 ####Flight Line Service Attendant: MIGUEL LEAL ([phone])[facility] ([facility])[address] [place] [address] Comprehensive metabolic 1998 panelon 06-25-2025 Albumin [Mass/Vol] 3.6 g/dL 3.4 - 4.8 g/dL [facility] ALP [Catalytic activity/Vol] 75 U/L 40 - 150 U/L [facility] ALT [Catalytic activity/Vol] 11 U/L NINF - 30 U/L [facility] Anion gap [Moles/Vol] 14 mmol/L High 3 - 13 mmol/L [facility] AST [Catalytic activity/Vol] 40 U/L High NINF - 34 U/L [facility] Bilirubin [Mass/Vol] 0.7 mg/dL [facility] 1.[facility] mg/dL [facility] Calcium [Mass/Vol] 9 mg/dL 8.8 - 10. 0 mg/dL [facility] Chloride [Moles/Vol] 106 mmol/L 98 - 10 7 mmol/L [facility] CO2 [Moles/Vol] 20 mmol/L Low 23 - 31 mmol/L [facility] Creatinine [Mass/Vol] 0.68 mg/dL 0.57 - 1.11 mg/dL [facility] GFR/1.73 sq M.predicted (S/P/Bld) [Vol rate/Area] - PINF [facility] Comment on above: Calculation based on the Chronic Kidney Disease Epidemiology Collaboration (CKD-EPI) equation refit without adjustment for race Glucose [Mass/Vol] 104 mg/dL 82 - 115 mg/dL [facility] Interpretation and review of laboratory results Abnormal [facility] Potassium [Moles/Vol] 3.6 mmol/L 3.5 - 5.1 mmol/L [facility] Comment on above: Plasma potassium masood ues may be up to 0.5 mmol/L lower than serum values. Protein [Mass/Vol] 6.9 g/dL 6.4 - 8.3 g/dL [facility] Sodium [Moles/Vol] 140 mmol/L 136 - 145 mmol/L [facility] Urea nitrogen [Mass/Vol] 11 mg/dL 9 - 23 mg/dL [facility] Health Consulton 06-25-2025 Consult Normal [facility] Consult Normal [facility] ECG 12-LEADon 06-25-2025 ECG 12-LEAD IMPRESSION: Sinus rhythm Consider right ventricular hypertrophy Nonspecific T abnrm, anterolateral leads Electronically Signed On 06-25-2025 11:58:17 EDT by Thelma Lepe Normal [facility] HIGH SENSITIVITY TROPONIN, S ERIAL BASELINEon 06-25-2025 TROPONIN HS SERIAL BASELINE 73 ng/L High <=14 [facility] Comment on above: Result Comment: In i ndividuals presenting with symptoms > 2h, a baseline troponin <= 5 ng/L suggests acutecardiac injury is unlikely and further serial testing is generally not indicated. Performed By: #### L [id number], [id number] ####Flight Line Service Attendant: MIGUEL LEAL ([phone])[address] HIGH SENSITIVITY TROPONIN, S ERIAL, SECOND TESTon 06-25-2025 2H TROPONIN HS (SERIAL 2ND TROPONIN) 78 ng/L High <=14 [facility] Comment on above: Result Comment: Risi ng or falling troponin delta between 2 ??? 15 ng/L as compared to baseline value requires a 3rd serial troponin Performed By: #### L [id number] ####Flight Line Service Attendant: MIGUEL LEAL ([phone])[facility] ([facility])[address] [place] [address] No Panel Informationon 06-25 P [place] 49 degrees [facility] [place] Interval 149 ms [facility] QRS [place] 97 degrees [facility] QRSD Interval 97 ms [facility] QT Interval 392 ms [facility] QTC Interval 459 ms [facility] T Wave [place] 206 degrees [facility] Sinus rhythm Consider right ventricular hypertrophy Nonspecific T abnrm, anterolateral leads Electronically Signed On 06-25-2025 11:58:17 EDT by Thelma Lepe CV Thelma Foreman MD - 06/25/2025 IMPRESSION: Sinus rhythm Consider right ventricular hypertrophy Nonspecific T abnrm, anterolateral leads Electronically Signed On 06-25-2025 11:58:17 EDT by Thelma Lepe [facility] 2h Troponin HS (Serial 2nd Troponin) 78 ng/L High NINF - 14 ng/L [facility] Comment on above: Rising or falling tr oponin delta between 2 15 ng/L as compared to baseline value requires a 3rd serial troponin Interpretation and review of laboratory results Abnormal [facility] Interpretation and review of laboratory results Abnormal [facility] Troponin HS Serial Baseline 73 ng/L High NINF - 14 ng/L [facility] Comment on above: In individuals prese nting with symptoms > 2h, a baseline troponin <= 5 ng/L suggests acute cardiac injury is unlikely and further serial testing is generally not indicated. [facility] Nursing Noteon 06-25-2025 Nursing Note Normal [facility] Progress Noteon 06-25-2025 Progress Note Normal [facility] Progress Note Normal [facility] System [facility] US Heart TransthoracicOrdere d By: Blanca Block on 06-25-2025 Aortic Sinus Valsalva 3.6 cm [place] [employer] Work Phone: [phone] Aortic Sinus Valsalva Index 2.18 cm/m2 [facility] [employer] Work Phone: [phone] Aortic valve Mean systole pressure gradient by US.doppler derived full Bernoulli 4 mmHg [facility] Work Phone: Aortic valve Orifice area by US 2.8 cm2 [facility] [employer] Work Phone: Aortic valve Peak systolic flow by US.doppler 1 m/s [facility] [employer] Work Phone: Ascending Aorta 3.2 cm [facility] Work Phone: Ascending Aorta Index 1.94 cm/m2 [place] [employer] Work Phone: AV Area by Peak Velocity 1.5 cm2 [facility] [employer] Work Phone: [phone] AV Area by VTI 1.8 cm2 [facility] Work Phone: [phone] AV Peak Gradient 8 mmHg [facility] Work Phone: [phone] AV Peak Velocity 1.5 m/s [facility] Work Phone: [phone] AV Velocity Ratio 0.53 [facility] Work Phone: [phone] AV VTI 26.7 cm [facility] Work Phone: [phone] CHRISTOPHE/BSA Peak Velocity 0.9 cm2/m2 [facility] [place] [facility] Work Phone: [phone] CHRISTOPHE/BSA VTI 1.1 cm2/m2 [facility] Work Phone: [phone] E/E' Lateral 8.11 [facility] Work Phone: [phone] E/E' Ratio (Averaged) 9.27 [facility] Work Phone: [phone] E/E' Septal 10.43 [facility] Work Phone: [phone] Est. RA Pressure 3 mmHg [facility] Work Phone: [phone] Fractional Shortening 2D 29 % 28 - 44 % [facility] Work Phone: [phone] Global Longitudinal Strain -12.4 % [facility] Work Phone: [phone] Global Longitudinal Strain -11.5 % [facility] Work Phone: [phone] Global Longitudinal Strain -14.8 % [facility] Work Phone: [phone] Global Longitudinal Strain -12.9 % [facility] Work Phone: [phone] Interpretation and review of laboratory results Abnormal [facility] Work Phone: [phone] IVC Diameter 1.6 cm [facility] Work Phone: [phone] IVSd 0.9 cm 0.6 - 0.9 cm [facility] Work Phone: [phone] LA Diameter 2.9 cm [facility] Work Phone: [phone] LA Size Index 1.76 cm/m2 [facility] Work Phone: [phone] LA Volume 2C 50 mL 22 - 52 mL [facility] Work Phone: LA Volume 4C 51 mL 22 - 52 mL [facility] Work Phone: LA Volume A/L 53 mL [facility] Work Phone: LA Volume BP 50 mL 22 - 52 mL [facility] Work Phone: LA Volume Index 2C 30 mL/m2 16 - 34 mL/m2 [facility] Work Phone: LA Volume Index 4C 31 mL/m2 16 - 34 mL/m2 [facility] Work Phone: LA Volume Index A/L 32 mL/m2 16 - 34 mL/m2 [facility] Work Phone: LA Volume Index BP 30 ml/m2 16 - 34 ml/m2 [facility] Work Phone: Left ventricular Ejection fraction by US.2D+Calculated by biplane method of disks 51 % Abnormal 55 - 100 % [facility] Work Phone: LV E' Lateral Velocity 9 cm/s [facility] Work Phone: LV E' Septal Velocity 7 cm/s [facility] Work Phone: LV EDV A2C 116 mL [facility] Work Phone: LV EDV A4C 150 mL [facility] Work Phone: LV EDV BP 140 mL Abnormal 56 - 104 mL [facility] Work Phone: LV EDV Index A2C 70 mL/m2 [facility] Work Phone: LV EDV Index A4C 91 mL/m2 [facility] Work Phone: LV EDV Index BP 85 mL/m2 [facility] Work Phone: LV Ejection Fraction A2C 46 % [facility] Work Phone: LV Ejection Fraction A4C 50 % [facility] Work Phone: LV ESV A2C 63 mL [facility] Work Phone: LV ESV A4C 75 mL [facility] Work Phone: LV ESV BP 69 mL Abnormal 19 - 49 mL [facility] Work Phone: LV ESV Index A2C 38 mL/m2 [facility] Work Phone: [phone] LV ESV Index A4C 45 mL/m2 [facility] Work Phone: LV ESV Index BP 42 mL/m2 [facility] Work Phone: [phone] LV Mass 2D 114.1 g 67 - 162 g [facility] Work Phone: [phone] LV Mass 2D Index 69.2 g/m2 43 - 95 g/m2 [facility] Work Phone: [phone] LV RWT Ratio 0.44 [facility] Work Phone: [phone] LVIDd 4.1 cm 3.9 - 5.3 cm [facility] Work Phone: [phone] LVIDd Index 2.48 cm/m2 [facility] Work Phone: [phone] LVIDs 2.9 cm [facility] Work Phone: [phone] LVIDs Index 1.76 cm/m2 [facility] Work Phone: [phone] LVOT Cardiac Output 3.7 liter/mi nut e [facility] Work Phone: [phone] LVOT Diameter 1.9 cm [facility] Work Phone: [phone] LVOT Mean Gradient 1 mmHg [facility] Work Phone: [phone] LVOT Peak Gradient 3 mmHg [facility] Work Phone: [phone] LVOT Peak Velocity 0.8 m/s [facility] Work Phone: [phone] LVOT Stroke Volume Index 29.9 mL/m2 [facility] Work Phone: LVOT SV 49.3 ml [facility] Work Phone: LVOT VTI 17.4 cm [facility] Work Phone: LVOT:AV VTI Index 0.65 [facility] Work Phone: LVPWd 0.9 cm 0.6 - 0.9 cm [facility] Work Phone: [phone] MV A Velocity 1.25 m/s [facility] Work Phone: [phone] MV E Velocity 0.73 m/s [facility] Work Phone: MV E Wave Deceleration Time 199 ms [facility] Work Phone: [phone] MV E/A 0.58 [facility] Work Phone: [phone] RV Basal Dimension 2.7 cm [facility] Work Phone: [phone] RV Free Wall Peak S' 11 cm/s [facility] Work Phone: [phone] RV Longitudinal Dimension 6.6 cm [facility] Work Phone: [phone] RV Mid Dimension 2.8 cm [facility] Work Phone: [phone] RVSP 33 mmHg [facility] Work Phone: [phone] Sinotubular [place] 2.5 cm [facility] Work Phone: TAPSE 1 cm Abnormal 1.7 cm [facility] Work Phone: [phone] TR Max Velocity 2.76 m/s [facility] Work Phone: [phone] TR Peak Gradient 30 mmHg [facility] Work Phone: [phone] TV [employer] 0.4 cm [facility] Work Phone: [phone] [facility] Work Phone: [phone] US Heart Transthoracicon Left Ventricle: Not well visualized. Left ventricle [...] cm. Normal sized STJ. Technically difficult study. Left Ventricle Not well visualized. Left ventricle size is normal. Normal wall thickness. Low normal left ventricular systolic function. EF by 2D Simpsons Biplane is 51%. Mild hypokinesis of the apex. Grade I diastolic dysfunction with normal LAP. Septal motion is consistent with post-operative status. Right Ventricle Not well visualized. Right ventricle size is normal. Normal systolic function. Left Atrium Left atrium is mildly dilated. Right Atrium Right atrium is mildly dilated. IVC/SVC IVC diameter is normal and decreases greater than 50% during inspiration; therefore the estimated right atrial pressure is normal (~3 mmHg). Mitral Valve Valve structure is normal. Trace regurgitation. No stenosis noted. Tricuspid Valve Valve structure is normal. Moderate (2+) regurgitation. Normal RVSP. RVSP is 33 mmHg. Aortic Valve Not well visualized. Trace regurgitation. No stenosis. Pulmonic Valve The pulmonic valve was not well visualized. No regurgitation. Ascending Aorta Not well visualized. Normal sized ascending aorta. Mildly dilated sinuses of Valsalva. Sinuses of Valsalva diameter is 3.6 cm. Normal sized STJ. Pericardium No pericardial effusion. Septum No interatrial shunt visualized on color Doppler. Study Details Image quality: adequate. Additional technique includes myocardial strain. Heart rate: 81 bpm. Blood pressure: 165/99 mmHg. Cardiac history: prior CABG. No contrast was given. Echo Additional Conclusions Technically difficult study. Wall Scoring Baseline Score Index: 1.06 The following segments are hypokinetic: apex. All other segments are normal. CV [facility] US Lower extremity vein - [facility] 06-25-2025 No evidence of deep vein or superficial [...] to distal thigh, measuring 17.67cm x 1.89cm. Study Details A hopkins scale, color Doppler imaging and spectral Doppler analysis ultrasound was performed. During the study longitudinal and transverse views were obtained. Pulsed wave doppler was performed. The exam was performed with the patient in the supine position. Overall the study quality was good. Right Lower Venous No evidence of deep vein or superficial vein thrombosis. The common femoral, saphenofemoral junction, femoral, popliteal, gastrocnemius, soleal, greater saphenous, posterior tibial, and peroneal veins were imaged in the transverse view and showed normal compressibility. The common femoral, middle femoral, and popliteal veins were imaged in the longitudinal view and showed normal color filling and normal phasic and spontaneous flow. Left Lower Venous No evidence of deep vein or superficial vein thrombosis. The common femoral, saphenofemoral junction, femoral, popliteal, gastrocnemius, soleal, greater saphenous, posterior tibial, and peroneal veins were imaged in the transverse view and showed normal compressibility. The common femoral, middle femoral, and popliteal veins were imaged in the longitudinal view and showed normal color filling and normal phasic and spontaneous flow. Non vascularized structure noted in the left groin to distal thigh, measuring 17.67cm x 1.89cm. CV [facility]ACS Vital signson 06-25-2025 Heart rate 83 /min bpm [facility] 36on 06-24-2025 36 Pt returned call to office, she is now reporting sudden onset of neck pain and increased confusion today. Advised pt be seen in ED since she is having new/worsening symptoms. Patient's son states he will bring her to [facility] ED for evaluation. Normal [facility] CBC W Auto Differential pane l (Bld)Ordered By: Tawana Mendoza on 06-24-2025 Basophils (Bld) [#/Vol] 0.1 10*3/uL 0.0 - 0.2 10*3/uL [facility] Basophils/100 WBC (Bld) 0.6 % 0.0 - 2.0 % [facility] Eosinophils (Bld) [#/Vol] 0.2 10*3/uL 0.0 - 0.5 10*3/uL [facility] Eosinophils/100 WBC (Bld) 2.8 % 0.0 - 6.0 % [facility] Erythrocyte distribution width (RBC) [Ratio] 14.9 % 11.5 - 15.0 % [facility] Hematocrit (Bld) [Volume fraction] 31.5 % Low 35.0 - 47.0 % [facility] Hemoglobin (Bld) [Mass/Vol] 10.1 g/dL Low 11.7 - 16.0 g/dL [facility] Immature granulocytes (Bld) [#/Vol] 0.1 10*3/uL High NINF - 0.1 10*3/uL [facility] Immature granulocytes/100 WBC (Bld) 0.8 % 0.0 - 2.0 % [facility] Interpretation and review of laboratory results Abnormal [facility] Lymphocytes (Bld) [#/Vol] 2.8 10*3/uL 1.0 - 4.3 10*3/uL [facility] Lymphocytes/100 WBC (Bld) 35.5 % 15.0 - 45.0 % [facility] MCH (RBC) [Entitic mass] 30.5 pg 26.0 - 34.0 pg [facility] MCHC (RBC) [Mass/Vol] 32.1 % 30.5 - 36.0 % [facility] MCV (RBC) [Entitic vol] 95.2 fL 77.0 - 99.0 fL [facility] Monocytes (Bld) [#/Vol] 1.1 10*3/uL High 0.0 - 0.9 10*3/uL [facility] Monocytes/100 WBC (Bld) 14.6 % High 5.0 - 13.0 % [facility] Neutrophils (Bld) [#/Vol] 3.6 10*3/uL 1.8 - 7.5 10*3/uL [facility] Neutrophils/100 WBC (Bld) 45.7 % 38.0 - 82.0 % [facility] Nucleated RBC/100 WBC (Bld) [Ratio] 0 % [facility] Platelet mean volume (Bld) [Entitic vol] 11.1 fL 9.0 - 12.7 fL [facility] Platelets (Bld) [#/Vol] 305 10*3/uL 140 - 440 10*3/uL [facility] RBC (Bld) [#/Vol] 3.31 10*6/uL Low 3.80 - 5.2 0 10*6/uL [facility] WBC (Bld) [#/Vol] 7.8 10*3/uL 3.6 - 10.7 10*3/uL [facility] CBC WITH AUTO DIFFERENTIALon 06-24-2025 Basophils (Bld) [#/Vol] 0.1 10*3/uL Normal 0.0-0.2 [facility] Comment on above: Performed By: #### L [id number] ####Flight Line Service Attendant: MIGUEL LEAL ([phone])[address] Basophils/100 WBC (Bld) 0.6 % Normal 0.0-2.0 [facility] Comment on above: Performed By: #### L [id number] ####Flight Line Service Attendant: MIGUEL LEAL ([phone])[facility])[address] [place] [address] Eosinophils (Bld) [#/Vol] 0.2 10*3/uL Normal 0.0-0.5 [facility] Comment on above: Performed By: #### L [id number] ####Flight Line Service Attendant: MIGUEL LEAL ([phone])[facility])[address] [place] [address] Eosinophils/100 WBC (Bld) 2.8 % Normal 0.0-6.0 [facility] Comment on above: Performed By: #### L [id number] ####Flight Line Service Attendant: MIGUEL LEAL ([phone])[facility])[address] [place] [address] Erythrocyte distribution width (RBC) [Ratio] 14.9 % Normal 11.5-15.0 [facility] Comment on above: Performed By: #### L [id number] ####Flight Line Service Attendant: MIGUEL LEAL ([phone])[facility])[address] [place] [address] Hematocrit (Bld) [Volume fraction] 31.5 % Low 35.0-47.0 [facility] Comment on above: Performed By: #### L [id number] ####Flight Line Service Attendant: MIGUEL LEAL ([phone])[facility])[address] [place] [address] Hemoglobin (Bld) [Mass/Vol] 10.1 g/dL Low 11.7-16.0 [facility] Comment on above: Performed By: #### L [id number] ####Flight Line Service Attendant: MIGUEL LEAL ([phone])[facility])[address] [place] [address] IMMATURE GRANS % 0.8 % Normal 0.0-2.0 [facility] Comment on above: Performed By: #### L [id number] ####Flight Line Service Attendant: MIGUEL LEAL ([phone])[facility])[address] [place] [address] IMMATURE GRANS ABSOLUTE 0.1 10*3/uL High <0.1 [facility] Comment on above: Performed By: #### L [id number] ####Flight Line Service Attendant: MIGUEL LEAL ([phone])[facility])[address] [place] [address] Lymphocytes (Bld) [#/Vol] 2.8 10*3/uL Normal 1.0-4.3 [facility] Comment on above: Performed By: #### L [id number] ####Flight Line Service Attendant: MIGUEL LEAL ([phone])[address] Lymphocytes/100 WBC (Bld) 35.5 % Normal 15.0-45.0 [facility] Comment on above: Performed By: #### L [id number] ####Flight Line Service Attendant: MIGUEL LEAL ([phone])[facility])[address] [place] [address] MCH (RBC) [Entitic mass] 30.5 pg Normal 26.0-34.0 [facility] Comment on above: Performed By: #### L [id number] ####Flight Line Service Attendant: MIGUEL LEAL ([phone])[facility])[address] [place] [address] MCHC 32.1 % Normal 30.5-36.0 [facility] Comment on above: Performed By: #### L [id number] ####Flight Line Service Attendant: MIGUEL LEAL ([phone])[facility])[address] [place] [address] MCV (RBC) [Entitic vol] 95.2 fL Normal 77.0-99.0 [facility] Comment on above: Performed By: #### L [id number] ####Flight Line Service Attendant: MIGUEL LEAL ([phone])[facility] ([facility])[address] [place] [address] [place] Monocytes (Bld) [#/Vol] 1.1 10*3/uL High 0.0-0.9 [facility] Comment on above: Performed By: #### L [id number] ####Flight Line Service Attendant: MIGUEL LEAL ([phone])[facility] ([facility])[address] [place] [address] Monocytes/100 WBC (Bld) 14.6 % High 5.0-13.0 [facility] Comment on above: Performed By: #### L [id number] ####Flight Line Service Attendant: MIGUEL LEAL ([phone])[facility] ([facility])[address] [place] [address] NEUTROPHILS ABSOLUTE 3.6 10*3/uL Normal 1.8-7.5 [facility] Comment on above: Performed By: #### L [id number] ####Flight Line Service Attendant: MIGUEL LEAL ([phone])[facility] ([facility])[address] [place] [address] Neutrophils/100 WBC (Bld) 45.7 % Normal 38.0-82.0 [facility] Comment on above: Performed By: #### L [id number] ####Flight Line Service Attendant: MIGUEL LEAL ([phone])[facility] ([facility])[address] [place] [address] NRBC 0.0 /100 WBCs Normal 0.0-2.0 [facility] Comment on above: Performed By: #### L [id number] ####Flight Line Service Attendant: MIGUEL LEAL ([phone])[facility] ([facility])[address] [place] [address] Platelet mean volume (Bld) [Entitic vol] 11.1 fL Normal 9.0-12.7 [facility] Comment on above: Performed By: #### L [id number] ####Flight Line Service Attendant: MIGUEL LEAL ([phone])[facility] ([facility])[address] [place] [address] [place] Platelets (Bld) [#/Vol] 305 10*3/uL Normal 140-440 [facility] Comment on above: Performed By: #### L [id number] ####Flight Line Service Attendant: MIGUEL LEAL ([phone])[facility])[address] [place] [address] RBC (Bld) [#/Vol] 3.31 10*6/uL Low 3.80-5.20 [facility] Comment on above: Performed By: #### L [id number] ####Flight Line Service Attendant: MIGUEL LEAL ([phone])[facility] ([facility])[address] [place] [address] WBC (Bld) [#/Vol] 7.8 10*3/uL Normal 3.6-10.7 [facility] Comment on above: Performed By: #### L [id number] ####Flight Line Service Attendant: MIGUEL LEAL ([phone])[address] CKMBon 06-24-2025 CK.MB [Mass/Vol] 3.1 ng/mL Normal <=3.4 [facility] Comment on above: Result Comment: Both the CKMB and the Relative Index must be abnormal for clinical significance. Performed By: #### L AB129, LAB17, [id number], [id number], [id number] ####Flight Line Service Attendant: MIGUEL LEAL ([phone])[facility] ([facility])[address] [place] [address] RELATIVE INDEX 2.0 % Normal <=3.0 [facility] Comment on above: Result Comment: ROCIO Bhandari COMMENTS:If CK-MB is elevated and the ratio of CK-MB to total CK (relative index) is more than 3, then it is likely that the heart was damaged. A high CK with a relative index below this value suggests that skeletal muscles were damaged. Performed By: #### L AB129, LAB17, [id number], [id number], [id number] ####Flight Line Service Attendant: MIGUEL LEAL ([phone])[facility])[address] [place] [address] [place] CKMB SCREENon 06-24-2025 CK [Catalytic activity/Vol] 156 U/L Normal 30-185 [facility] Comment on above: Performed By: #### L AB129, LAB17, [id number], [id number], [id number] ####Flight Line Service Attendant: MIGUEL LEAL ([phone])[facility] ([facility])[address] [place] [address] COMPLETE URINALYSIS WITH REF JACKY TO CULTUREon 06-24-2025 BILIRUBIN, TOTAL PRESENCE IN URINE Negative Normal Negative [facility] Comment on above: Performed By: #### L [id number] ####Flight Line Service Attendant: MIGUEL LEAL ([phone])[facility])[address] [place] [address] Clarity (U) Clear Normal Clear [facility] Comment on above: Performed By: #### L [id number] ####Flight Line Service Attendant: MIGUEL LEAL ([phone])[facility] ([facility])[address] [place] [address] Color (U) Colorless Normal Lt. Yellow [facility] Comment on above: Performed By: #### L [id number] ####Flight Line Service Attendant: MIGUEL LEAL ([phone])[facility])[address] [place] [address] GLUCOSE (MG/DL) IN URINE Normal Normal Normal (<70) [facility] Comment on above: Performed By: #### L [id number] ####Flight Line Service Attendant: MIGUEL LEAL ([phone])[facility])[address] [place] [address] HEMOGLOBIN PRESENCE IN URINE Negative Normal Negative [facility] Comment on above: Performed By: #### L [id number] ####Flight Line Service Attendant: MIGUEL LEAL ([phone])[facility])[address] [place] [address] [place] Ketones Ql (U) Trace Abnormal Negative [facility] Comment on above: Performed By: #### L [id number] ####Flight Line Service Attendant: MIGUEL LEAL ([phone])[facility] ([facility])[address] [place] [address] LEUKOCYTE ESTERASE PRESENCE IN URINE BY TEST STRIP Negative Normal Negative [facility] Comment on above: Performed By: #### L [id number] ####Flight Line Service Attendant: MIGUEL LEAL ([phone])[facility] ([facility])[address] [place] [address] NITRITE PRESENCE IN URINE Negative Normal Negative [facility] Comment on above: Performed By: #### L [id number] ####Flight Line Service Attendant: MIGUEL LEAL ([phone])[facility] ([facility])[address] [place] [address] pH (U) 7.0 [pH] Normal 5.0-8.0 [facility] Comment on above: Performed By: #### L [id number] ####Flight Line Service Attendant: MIGUEL LEAL ([phone])[facility] ([facility])[address] [place] [address] Protein (U) [Mass/Vol] Negative Normal Negative [facility] Comment on above: Performed By: #### L [id number] ####Flight Line Service Attendant: MIGUEL LEAL ([phone])[facility])[address] [place] [address] Specific gravity (U) [Rel density] 1.036 High 1.005-1.030 [facility] Comment on above: Result Comment: ROCIO Bhandari COMMENTS:A specimen with <=10 WBC is not consistent with inflammation. This specimen will not reflex to a urine culture. Performed By: #### L [id number] ####Flight Line Service Attendant: MIGUEL LEAL ([phone])[facility] ([facility])[address] [place] [address] UROBILINOGEN (MG/DL) IN URINE Normal Normal Normal (0-1) [facility] Comment on above: Performed By: #### L [id number] ####Flight Line Service Attendant: MIGUEL LEAL ([phone])[facility])[address] [place] [address] COMPREHENSIVE METABOLIC PANE [place] 06-24-2025 Albumin [Mass/Vol] 4.1 g/dL Normal 3.4-4.8 [facility] Comment on above: Performed By: #### L AB129, LAB17, [id number], [id number], [id number] ####Flight Line Service Attendant: MIGUEL LEAL ([phone])[facility] ([facility])[address] [place] [address] ALP [Catalytic activity/Vol] 80 U/L Normal 40-150 [facility] Comment on above: Performed By: #### L AB129, LAB17, [id number], [id number], [id number] ####Flight Line Service Attendant: MIGUEL LEAL ([phone])[facility] ([facility])[address] [place] [address] ALT [Catalytic activity/Vol] 11 U/L Normal <30 [facility] Comment on above: Performed By: #### L AB129, LAB17, [id number], [id number], [id number] ####Flight Line Service Attendant: MIGUEL LEAL ([phone])[facility] ([facility])[address] [place] [address] Anion gap [Moles/Vol] 14 mmol/L High 3-13 [facility] Comment on above: Performed By: #### L AB129, LAB17, [id number], [id number], [id number] ####Flight Line Service Attendant: MIGUEL LEAL ([phone])[facility] ([facility])[address] [place] [address] AST [Catalytic activity/Vol] 39 U/L High <34 [facility] Comment on above: Performed By: #### L AB129, LAB17, [id number], [id number], [id number] ####Flight Line Service Attendant: MIGUEL LEAL ([phone])[facility])[address] [place] [address] Bilirubin [Mass/Vol] 0.7 mg/dL Normal <1.2 [facility] Comment on above: Performed By: #### L AB129, LAB17, [id number], [id number], [id number] ####Flight Line Service Attendant: MIGUEL LEAL ([phone])[facility])[address] [place] [address] Calcium [Mass/Vol] 9.8 mg/dL Normal 8.8-10.0 [facility] Comment on above: Performed By: #### L AB129, LAB17, [id number], [id number], [id number] ####Flight Line Service Attendant: MIGUEL LEAL ([phone])[facility] ([facility])[address] [place] [address] Chloride [Moles/Vol] 99 mmol/L Normal 98-107 [facility] Comment on above: Performed By: #### L AB129, LAB17, [id number], [id number], [id number] ####Flight Line Service Attendant: MIGUEL ELAL ([phone])[facility] ([facility])[address] [place] [address] CO2 [Moles/Vol] 22 mmol/L Low 23-31 [facility] Comment on above: Performed By: #### L AB129, LAB17, [id number], [id number], [id number] ####Flight Line Service Attendant: MIGUEL LEAL ([phone])[facility])[address] [place] [address] Creatinine [Mass/Vol] 0.77 mg/dL Normal 0.57-1.11 [facility] Comment on above: Performed By: #### L AB129, LAB17, [id number], [id number], [id number] ####Flight Line Service Attendant: MIGUEL LEAL ([phone])[facility])[address] [place] [address] [place] GLOMERULAR FILTRATION RATE ML/MIN/1.73 SQ M.PREDICTED 81.1 mL/min/1.73m*2 Normal >60.0 [facility] Comment on above: Result Comment: Calc ulation based on the Chronic Kidney Disease Epidemiology Collaboration (CKD-EPI) equation refit without adjustment for race Performed By: #### L AB129, LAB17, [id number], [id number], [id number] ####Flight Line Service Attendant: MIGUEL LEAL ([phone])[facility])[address] [place] [address] Glucose [Mass/Vol] 110 mg/dL Normal 82-115 [facility] Comment on above: Performed By: #### L AB129, LAB17, [id number], [id number], [id number] ####Flight Line Service Attendant: MIGUEL LEAL ([phone])[address] Potassium [Moles/Vol] 3.8 mmol/L Normal 3.5-5.1 [facility] Comment on above: Result Comment: [facility] potassium values may be up to 0.5 mmol/L lower than serum values. Performed By: #### L AB129, LAB17, [id number], [id number], [id number] ####Flight Line Service Attendant: MIGUEL LEAL ([phone])[address] Protein [Mass/Vol] 7.4 g/dL Normal 6.4-8.3 [facility] Comment on above: Performed By: #### L AB129, LAB17, [id number], [id number], [id number] ####Flight Line Service Attendant: MIGUEL LEAL ([phone])[address] Sodium [Moles/Vol] 135 mmol/L Low 136-145 [facility] Comment on above: Performed By: #### L AB129, LAB17, [id number], [id number], [id number] ####Flight Line Service Attendant: MIGUEL LEAL ([phone])[address] Urea nitrogen [Mass/Vol] 20 mg/dL Normal 9-23 [facility] Comment on above: Performed By: #### L AB129, LAB17, [id number], [id number], [id number] ####Flight Line Service Attendant: MIGUEL LEAL ([phone])[facility] ([facility])[address] [place] [address] CT HEAD NECK ANGIO W AND WO IV CONTRASTon 06-24-2025 CT HEAD NECK ANGIO W AND WO IV CONTRAST Normal [facility] CT HEAD WO IV CONTRASTon CT HEAD WO IV CONTRAST Normal [facility] CT Head WO contraston 2024 Patient Name: RICHIE ARMAS : 1950 [facility]#: [id number] Exam Date/Time: 06/24/2025 10:26 Procedure: CT HEAD WO IV CONTRAST Ordering Provider: LONGORIA JACOB Reason For Exam: Mental status change, unknown cause CT HEAD WO IV CONTRAST, CT HEAD NECK ANGIO W AND WO IV CONTRAST HISTORY: Mental status change, unknown cause. Left-sided paresthesias. TECHNIQUE: CT head without contrast and CTA head and neck. Post-processed 3-D images were created, reviewed and archived. Dose reduction was employed with automated exposure control. Contrast: IV administration of 75 cc Isovue-370 COMPARISON: None available RESULT: BRAIN: Acute change: No evidence of an acute intracranial process. Hemorrhage: No evidence of acute intracranial hemorrhage. Mass Lesion / Mass Effect: No evidence of an intracranial mass, extra-axial fluid collection, or significant localized mass effect. Chronic change: Scattered patchy foci of low attenuation are present within supratentorial white matter which is a nonspecific finding but likely represents mild microvascular ischemia. Parenchyma: No significant parenchymal volume loss. Ventricles: Normal caliber and morphology. Other: The calvarium, skull base, imaged paranasal sinuses, mastoids, orbits and extracranial soft tissues are unremarkable. Bilateral lens replacements. NECK: Soft tissues: Postoperative changes related to recent CABG including the partially imaged median sternotomy is also overlying soft tissue swelling and air locules. Air locule in the anterior mediastinum is likely postoperative. Spine: Straightening of normal cervical lordosis, likely positional. Mild spondylosis. Lungs: The imaged lungs are clear. Incompletely visualized postoperative changes related to CABG as discussed above. CT ARTERIOGRAM: EXTRACRANIAL CIRCULATION: Aortic arch and branch vessels: Common origin of the innominate and left common carotid arteries, normal variant. No significant stenosis in the proximal brachiocephalic vessels. Carotid Stenosis: Right Common: No significant stenosis. Right Internal Carotid Plaque: Minimal atherosclerotic plaque without significant stenosis. Right Internal Carotid Stenosis (% by NASCET Criteria): 0% Left Common: No significant stenosis. Left Internal Carotid Plaque: Minimal atherosclerotic plaque without significant stenosis. Left Internal Carotid Stenosis (% by NASCET Criteria): 0% Cervical Vertebral Arteries: Patency: Bilateral Dominance: Codominant INTRACRANIAL CIRCULATION: Anterior Circulation: Atherosclerotic calcifications of the carotid siphons without significant stenosis. Suspect small infundibulum of the left MCA origin. The ICAs, proximal MCAs and proximal ACAs are patent without large vessel occlusion, high-grade stenosis or aneurysm. Codominant A1 segments. Vertebrobasilar Circulation: The V4 segments (codominant), basilar artery and plow and boring machine tender (left HOME CARE LIAISON with hypoplastic left P1 segment) are patent without large vessel occlusion, high grade stenosis or aneurysm. Distal plow and boring machine tender are suboptimally assessed due to motion. The proximal SCAs, AICAs and PICAs are patent. The superior sagittal sinus, straight sinus, confluence, transverse and sigmoid sinuses are patent. [employer] (topogram) images: No additional findings. [facility] Delvis Morin MD - 06/24/2025 Patient Name: RICHIE ARMAS : 1950 [facility]#: [id number] Exam Date/Time: 06/24/2025 10:26 Procedure: CT HEAD WO IV CONTRAST Ordering Provider: LONGORIA JACOB Reason For Exam: Mental status change, unknown cause CT HEAD WO IV CONTRAST, CT HEAD NECK ANGIO W AND WO IV CONTRAST HISTORY: Mental status change, unknown cause. Left-sided paresthesias. TECHNIQUE: CT head without contrast and CTA head and neck. Post-processed 3-D images were created, reviewed and archived. Dose reduction was employed with automated exposure control. Contrast: IV administration of 75 cc Isovue-370 COMPARISON: None available RESULT: BRAIN: Acute change: No evidence of an acute intracranial process. Hemorrhage: No evidence of acute intracranial hemorrhage. Mass Lesion / Mass Effect: No evidence of an intracranial mass, extra-axial fluid collection, or significant localized mass effect. Chronic change: Scattered patchy foci of low attenuation are present within supratentorial white matter which is a nonspecific finding but likely represents mild microvascular ischemia. Parenchyma: No significant parenchymal volume loss. Ventricles: Normal caliber and morphology. Other: The calvarium, skull base, imaged paranasal sinuses, mastoids, orbits and extracranial soft tissues are unremarkable. Bilateral lens replacements. NECK: Soft tissues: Postoperative changes related to recent CABG including the partially imaged median sternotomy is also overlying soft tissue swelling and air locules. Air locule in the anterior mediastinum is likely postoperative. Spine: Straightening of normal cervical lordosis, likely positional. Mild spondylosis. Lungs: The imaged lungs are clear. Incompletely visualized postoperative changes related to CABG as discussed above. CT ARTERIOGRAM: EXTRACRANIAL CIRCULATION: Aortic arch and branch vessels: Common origin of the innominate and left common carotid arteries, normal variant. No significant stenosis in the proximal brachiocephalic vessels. Carotid Stenosis: Right Common: No significant stenosis. Right Internal Carotid Plaque: Minimal atherosclerotic plaque without significant stenosis. Right Internal Carotid Stenosis (% by NASCET Criteria): 0% Left Common: No significant stenosis. Left Internal Carotid Plaque: Minimal atherosclerotic plaque without significant stenosis. Left Internal Carotid Stenosis (% by NASCET Criteria): 0% Cervical Vertebral Arteries: Patency: Bilateral Dominance: Codominant INTRACRANIAL CIRCULATION: Anterior Circulation: Atherosclerotic calcifications of the carotid siphons without significant stenosis. Suspect small infundibulum of the left MCA origin. The ICAs, proximal MCAs and proximal ACAs are patent without large vessel occlusion, high-grade stenosis or aneurysm. Codominant A1 segments. Vertebrobasilar Circulation: The V4 segments (codominant), basilar artery and plow and boring machine tender (left HOME CARE LIAISON with hypoplastic left P1 segment) are patent without large vessel occlusion, high grade stenosis or aneurysm. Distal plow and boring machine tender are suboptimally assessed due to motion. The proximal SCAs, AICAs and PICAs are patent. The superior sagittal sinus, straight sinus, confluence, transverse and sigmoid sinuses are patent. [employer] (topogram) images: No additional findings. IMPRESSION: CT: No CT evidence of acute abnormality. CTA: No large vessel occlusion or high-grade stenosis in the head or neck. 0% stenosis of the proximal cervical ICAs bilaterally by NASCET criteria. 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 Report Dictated on Electronically Signed By: Delvis Morin MD Electronically Signed Date/Time: 06/24/2025 11:14 AM EDT [email or web address] CTA Head vessels and Neck ve ssels WO and W contrast Tobias 06-24-2025 Patient Name: RICHIE ARMAS : 1950 [facility]#: [id number] Exam Date/Time: 06/24/2025 10:26 Procedure: CT HEAD NECK ANGIO W AND WO IV CONTRAST Ordering Provider: CHAVARRIA JAKLYN Reason For Exam: L sided paresthesais in UE and LE, unknown clear LKW, maybe last night around 9PM CT HEAD WO IV CONTRAST, CT HEAD NECK ANGIO W AND WO IV CONTRAST HISTORY: Mental status change, unknown cause. Left-sided paresthesias. TECHNIQUE: CT head without contrast and CTA head and neck. Post-processed 3-D images were created, reviewed and archived. Dose reduction was employed with automated exposure control. Contrast: IV administration of 75 cc Isovue-370 COMPARISON: None available RESULT: BRAIN: Acute change: No evidence of an acute intracranial process. Hemorrhage: No evidence of acute intracranial hemorrhage. Mass Lesion / Mass Effect: No evidence of an intracranial mass, extra-axial fluid collection, or significant localized mass effect. Chronic change: Scattered patchy foci of low attenuation are present within supratentorial white matter which is a nonspecific finding but likely represents mild microvascular ischemia. Parenchyma: No significant parenchymal volume loss. Ventricles: Normal caliber and morphology. Other: The calvarium, skull base, imaged paranasal sinuses, mastoids, orbits and extracranial soft tissues are unremarkable. Bilateral lens replacements. NECK: Soft tissues: Postoperative changes related to recent CABG including the partially imaged median sternotomy is also overlying soft tissue swelling and air locules. Air locule in the anterior mediastinum is likely postoperative. Spine: Straightening of normal cervical lordosis, likely positional. Mild spondylosis. Lungs: The imaged lungs are clear. Incompletely visualized postoperative changes related to CABG as discussed above. CT ARTERIOGRAM: EXTRACRANIAL CIRCULATION: Aortic arch and branch vessels: Common origin of the innominate and left common carotid arteries, normal variant. No significant stenosis in the proximal brachiocephalic vessels. Carotid Stenosis: Right Common: No significant stenosis. Right Internal Carotid Plaque: Minimal atherosclerotic plaque without significant stenosis. Right Internal Carotid Stenosis (% by NASCET Criteria): 0% Left Common: No significant stenosis. Left Internal Carotid Plaque: Minimal atherosclerotic plaque without significant stenosis. Left Internal Carotid Stenosis (% by NASCET Criteria): 0% Cervical Vertebral Arteries: Patency: Bilateral Dominance: Codominant INTRACRANIAL CIRCULATION: Anterior Circulation: Atherosclerotic calcifications of the carotid siphons without significant stenosis. Suspect small infundibulum of the left MCA origin. The ICAs, proximal MCAs and proximal ACAs are patent without large vessel occlusion, high-grade stenosis or aneurysm. Codominant A1 segments. Vertebrobasilar Circulation: The V4 segments (codominant), basilar artery and plow and boring machine tender (left HOME CARE LIAISON with hypoplastic left P1 segment) are patent without large vessel occlusion, high grade stenosis or aneurysm. Distal plow and boring machine tender are suboptimally assessed due to motion. The proximal SCAs, AICAs and PICAs are patent. The superior sagittal sinus, straight sinus, confluence, transverse and sigmoid sinuses are patent. [employer] (topogram) images: No additional findings. [facility] Delvis Morin MD - 06/24/2025 [facility] 1950 [id number] Exam Date/Time: 06/24/2025 10:26 Procedure: CT HEAD NECK ANGIO W AND WO IV CONTRAST Ordering Provider: CHAVARRIA JAKLYN Reason For Exam: L sided paresthesais in UE and LE, unknown clear LKW, maybe last night around 9PM CT HEAD WO IV CONTRAST, CT HEAD NECK ANGIO W AND WO IV CONTRAST HISTORY: Mental status change, unknown cause. Left-sided paresthesias. TECHNIQUE: CT head without contrast and CTA head and neck. Post-processed 3-D images were created, reviewed and archived. Dose reduction was employed with automated exposure control. Contrast: IV administration of 75 cc Isovue-370 COMPARISON: None available RESULT: BRAIN: Acute change: No evidence of an acute intracranial process. Hemorrhage: No evidence of acute intracranial hemorrhage. Mass Lesion / Mass Effect: No evidence of an intracranial mass, extra-axial fluid collection, or significant localized mass effect. Chronic change: Scattered patchy foci of low attenuation are present within supratentorial white matter which is a nonspecific finding but likely represents mild microvascular ischemia. Parenchyma: No significant parenchymal volume loss. Ventricles: Normal caliber and morphology. Other: The calvarium, skull base, imaged paranasal sinuses, mastoids, orbits and extracranial soft tissues are unremarkable. Bilateral lens replacements. NECK: Soft tissues: Postoperative changes related to recent CABG including the partially imaged median sternotomy is also overlying soft tissue swelling and air locules. Air locule in the anterior mediastinum is likely postoperative. Spine: Straightening of normal cervical lordosis, likely positional. Mild spondylosis. Lungs: The imaged lungs are clear. Incompletely visualized postoperative changes related to CABG as discussed above. CT ARTERIOGRAM: EXTRACRANIAL CIRCULATION: Aortic arch and branch vessels: Common origin of the innominate and left common carotid arteries, normal variant. No significant stenosis in the proximal brachiocephalic vessels. Carotid Stenosis: Right Common: No significant stenosis. Right Internal Carotid Plaque: Minimal atherosclerotic plaque without significant stenosis. Right Internal Carotid Stenosis (% by NASCET Criteria): 0% Left Common: No significant stenosis. Left Internal Carotid Plaque: Minimal atherosclerotic plaque without significant stenosis. Left Internal Carotid Stenosis (% by NASCET Criteria): 0% Cervical Vertebral Arteries: Patency: Bilateral Dominance: Codominant INTRACRANIAL CIRCULATION: Anterior Circulation: Atherosclerotic calcifications of the carotid siphons without significant stenosis. Suspect small infundibulum of the left MCA origin. The ICAs, proximal MCAs and proximal ACAs are patent without large vessel occlusion, high-grade stenosis or aneurysm. Codominant A1 segments. Vertebrobasilar Circulation: The V4 segments (codominant), basilar artery and plow and boring machine tender (left HOME CARE LIAISON with hypoplastic left P1 segment) are patent without large vessel occlusion, high grade stenosis or aneurysm. Distal plow and boring machine tender are suboptimally assessed due to motion. The proximal SCAs, AICAs and PICAs are patent. The superior sagittal sinus, straight sinus, confluence, transverse and sigmoid sinuses are patent. [employer] (topogram) images: No additional findings. IMPRESSION: CT: No CT evidence of acute abnormality. CTA: No large vessel occlusion or high-grade stenosis in the head or neck. 0% stenosis of the proximal cervical ICAs bilaterally by NASCET criteria. 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 Report Dictated on Electronically Signed By: Delvis Morin MD Electronically Signed Date/Time: 06/24/2025 11:14 AM EDT [place] [id number] panelon 06-24-2025 Albumin [Mass/Vol] 4.1 g/dL 3.4 - 4.8 g/dL [facility] ALP [Catalytic activity/Vol] 80 U/L 40 - 150 U/L [facility] ALT [Catalytic activity/Vol] 11 U/L NINF - 30 U/L [facility] Anion gap [Moles/Vol] 14 mmol/L High 3 - 13 mmol/L [facility] AST [Catalytic activity/Vol] 39 U/L High NINF - 34 U/L [facility] Bilirubin [Mass/Vol] 0.7 mg/dL NINF - 1.2 mg/dL [facility] Calcium [Mass/Vol] 9.8 mg/dL 8.8 - 10. 0 mg/dL [facility] Chloride [Moles/Vol] 99 mmol/L 98 - 10 7 mmol/L [facility] CO2 [Moles/Vol] 22 mmol/L Low 23 - 31 mmol/L [facility] Creatinine [Mass/Vol] 0.77 mg/dL 0.57 - 1.11 mg/dL [facility] GFR/1.73 sq M.predicted (S/P/Bld) [Vol rate/Area] 81.1 mL/min - PINF [facility] Comment on above: Calculation based on the Chronic Kidney Disease Epidemiology Collaboration (CKD-EPI) equation refit without adjustment for race Glucose [Mass/Vol] 110 mg/dL 82 - 115 mg/dL [facility] Interpretation and review of laboratory results Abnormal [facility] Potassium [Moles/Vol] 3.8 mmol/L 3.5 - 5.1 mmol/L [facility] Comment on above: Plasma potassium masood ues may be up to 0.5 mmol/L lower than serum values. Protein [Mass/Vol] 7.4 g/dL 6.4 - 8.3 g/dL [facility] Sodium [Moles/Vol] 135 mmol/L Low 136 - 145 mmol/L [facility] Urea nitrogen [Mass/Vol] 20 mg/dL 9 - 23 mg/dL [facility] ECG 12-LEADon 06-24-2025 ECG 12-LEAD IMPRESSION: Sinus rhythm Ventricular premature complex Probable left atrial enlargement Borderline right axis deviation Nonspecific T abnrm, anterolateral leads Electronically Signed On 06-24-2025 10:06:34 EDT by Thelma Lepe Normal [facility] ED Provider Noteon 5 ED Provider Note Normal [facility] FREE T4on 06-24-2025 Free T4 [Mass/Vol] 0.87 ng/dL Normal 0.70-1.48 [facility] Comment on above: Performed By: #### L [id number] ####Flight Line Service Attendant: MIGUEL LEAL ([phone])[facility])[address] [place] [address] Free T3 [Mass/Vol]on Interpretation and review of laboratory results Normal [facility] Free T4 [Mass/Vol]on Free T4 Dialysis [Mass/Vol] 0.87 ng/dL 0.70 - 1.48 ng/dL [facility] Interpretation and review of laboratory results Normal [facility] HIGH SENSITIVITY TROPONIN, S ERIAL BASELINEon 06-24-2025 TROPONIN HS SERIAL BASELINE 82 ng/L High <=14 [facility] Comment on above: Result Comment: In i ndividuals presenting with symptoms > 2h, a baseline troponin <= 5 ng/L suggests acutecardiac injury is unlikely and further serial testing is generally not indicated. Performed By: #### L [id number], [id number], [id number], [id number], [id number] ####Flight Line Service Attendant: MIGUEL LEAL ([phone])[facility] ([facility])[address] [place] [address] HIGH SENSITIVITY TROPONIN, S ERIAL, SECOND TESTon 06-24-2025 2H TROPONIN HS (SERIAL 2ND TROPONIN) 76 ng/L High <=14 [facility] Comment on above: Result Comment: 2h t roponin (2nd troponin) samples collected between 1h 40 min and 2h and 20 min of the baseline collection time can be utilized to interpret delta troponins as per [employer] algorithms. Samples collected outside this timeframe need to be interpreted clinically.Rising or falling troponin delta between 2 ??? 15 ng/L as compared to baseline value requires a 3rd serial troponin Performed By: #### L [id number], [id number], [id number] ####Flight Line Service Attendant: MIGUEL LEAL ([phone])[facility])[address] [place] [address] HIGH SENSITIVITY TROPONIN, S ERIAL, THIRD TESTon 06-24-2025 4H TROPONIN HS (SERIAL 3RD TROPONIN) 73 ng/L High <=14 [facility] Comment on above: Result Comment: Risi ng or falling troponin delta between 2 ??? 15 ng/L as compared to 2h troponin valuerequires further evaluation. Performed By: #### L [id number] ####Flight Line Service Attendant: MIGUEL LEAL ([phone])[facility])[address] [place] [address] LACTIC ACID WITH REFLEXon Lactate [Moles/Vol] 2.0 mmol/L Normal 0.5-2.2 [facility] Comment on above: Performed By: #### L [id number] ####Flight Line Service Attendant: MIGUEL LEAL ([phone])[facility])[address] [place] [address] Lactate [Moles/Vol] 2.8 mmol/L High 0.5-2.2 [facility] Comment on above: Performed By: #### L [id number] ####Flight Line Service Attendant: MIGUEL LEAL ([phone])[facility])[address] [place] [address] Laboratory - Chemistry and C hemistry - challengeon 06-24-2025 Lactate [Moles/Vol] 2 mmol/L 0.5 - 2. 2 mmol/L [facility] [employer] Free T3 [Mass/Vol] 1.89 pg/mL 1.58 - 3. 91 pg/mL [facility] Magnesium [Mass/Vol] 2.1 mg/dL 1.6 - 2 .6 mg/dL [facility] TSH Qn 5.65 m[IU]/L High [facility] CK.MB [Mass/Vol] 3.1 ng/mL NINF - 3.4 ng/mL [facility] Comment on above: Both the CKMB and th e Relative Index must be abnormal for clinical significance. CK [Catalytic activity/Vol] 156 U/L 30 - 185 U/L [facility] Lactate [Moles/Vol] 2.8 mmol/L High 0.5 - 2. 2 mmol/L [facility] Glucose [Mass/Vol] 113 mg/dL High 70 - 100 mg/dL [facility] MAGNESIUMon 06-24-2025 Magnesium [Mass/Vol] 2.1 mg/dL Normal 1.6-2.6 [facility] Comment on above: Result Comment: ROCIO Bhandari COMMENTS:Higher values can be expected in females during menses. Performed By: #### L [id number], [id number], [id number] ####Flight Line Service Attendant: MIGUEL LEAL ([phone])[facility] ([facility])[address] [place] [address] MR Brain WO contraston 06-24 1. 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 Extensive chronic ischemic changes. CRITICAL TEST RESULT COMMUNICATION: Notification of these findings was made to MARRY BERGER via [employer] Messaging on 06/24/2025 7:02 PM EDT. Report Dictated on Electronically Signed By: Ramesh Merino MD Electronically Signed Date/Time: 06/24/2025 7:02 PM EDT [facility] [employer] [facility] 1950 [id number] Exam Date/Time: 06/24/2025 15:13 Procedure: MR BRAIN [...] identified. Major intracranial flow voids are visualized. [facility] Ramesh Merino MD - 06/24/2025 [facility] Name: [facility] 1950 [id number] Exam Date/Time: 06/24/2025 15:13 Procedure: MR BRAIN [...] identified. Major intracranial flow voids are visualized. IMPRESSION: 1. 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 Extensive chronic ischemic changes. CRITICAL TEST RESULT COMMUNICATION: Notification of these findings was made to MARRY BERGER via [employer] on 06/24/2025 7:02 PM EDT. Report Dictated on Electronically Signed By: Ramesh Merino MD Electronically Signed Date/Time: 06/24/2025 7:02 PM EDT [facility] Radiology Study observation (narrative) [facility] alth MR Brain WO contrastOrdered By: Ramesh Merino on 06-24-2025 [facility] Work Phone: Magnesium [Mass/Vol]on 06-24 Interpretation and review of laboratory results Normal [facility] Higher values can be expected in females during menses. [facility] No Panel Informationon 06-24 4h Troponin HS (Serial 3rd Troponin) 73 ng/L High NINF - 14 ng/L [facility] Comment on above: Rising or falling tr oponin delta between 2 15 ng/L as compared to 2h troponin value requires further evaluation. Interpretation and review of laboratory results Abnormal [facility] Interpretation and review of laboratory results Normal [facility] 2h Troponin HS (Serial 2nd Troponin) 76 ng/L High NINF - 14 ng/L [facility] Comment on above: 2h troponin (2nd tro ponin) samples collected between 1h 40 min and 2h and 20 min of the baseline collection time can be utilized to interpret delta troponins as per [facility] algorithms. Samples collected outside this timeframe need to be interpreted clinically. Rising or falling troponin delta between 2 15 ng/L as compared to baseline value requires a 3rd serial troponin Interpretation and review of laboratory results Abnormal [facility] Interpretation and review of laboratory results Normal [facility] RELATIVE INDEX 2 % NINF - 3.0 % [facility] If CK-MB is elevated and the ratio of CK-MB to total CK (relative index) is more than 3, then it is likely that the heart was damaged. A high CK with a relative index below this value suggests that skeletal muscles were damaged. [facility] Interpretation and review of laboratory results Abnormal [facility] Troponin HS Serial Baseline 82 ng/L High NINF - 14 ng/L [facility] Comment on above: In individuals prese nting with symptoms > 2h, a baseline troponin <= 5 ng/L suggests acute cardiac injury is unlikely and further serial testing is generally not indicated. [facility] CT: No CT evidence o f acute abnormality. CTA: No large vessel occlusion or high-grade stenosis in the head or neck. 0% stenosis of the proximal cervical ICAs bilaterally by NASCET criteria. 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 Report Dictated on Electronically Signed By: Delvis Morin MD Electronically Signed Date/Time: 06/24/2025 11:14 AM EDT [facility] Interpretation and review of laboratory results Normal [facility] Interpretation and review of laboratory results Abnormal [facility] Radiology Study observation (narrative) [facility] Interpretation and review of laboratory results Abnormal [facility] Performed by: [facility], [address] [place] [address] CLIA ID: [id number] [facility] Sinus rhythm Ventricular premature complex Probable left atrial enlargement Borderline right axis deviation Nonspecific T abnrm, anterolateral leads Electronically Signed On 06-24-2025 10:06:34 EDT by Thelma Lepe Thelma Foreman MD - 06/24/2025 IMPRESSION: Sinus rhythm Ventricular premature complex Probable left atrial enlargement Borderline right axis deviation Nonspecific T abnrm, anterolateral leads Electronically Signed On 06-24-2025 10:06:34 EDT by [facility] Lepe [facility] No Panel InformationOrdered By: Thelma Lepe on 06-24-2025 P [place] 42 degrees [employer] Work Phone: [place] Interval 160 ms [employer] Work Phone: QRS [place] 85 degrees [employer] Work Phone: QRSD Interval 103 ms [facility] Work Phone: QT Interval 407 ms [employer] Work Phone: QTC Interval 462 ms [employer] Work Phone: T Wave [place] 0 degrees [employer] Work Phone: [employer] Work Phone: Progress Noteon 06-24-2025 Progress Note Called and updated s on Salvador, who is with patient. Just arriving to three W., updated on MRI results and neurology consult. Normal [facility] T3 FREEon 06-24-2025 Free T3 [Mass/Vol] 1.89 pg/mL Normal 1.58-3.91 [facility] Comment on above: Performed By: #### L [id number], [id number], [id number] ####Flight Line Service Attendant: MIGUEL LEAL ([phone])[facility])[address] [place] [address] THYROID STIMULATING HORMONEo n 06-24-2025 THYROID STIMULATING HORMONE 5.65 uIU/mL High 0.35-4.94 [facility] Comment on above: Performed By: #### L AB129, [id number], [id number], [id number], [id number] ####Flight Line Service Attendant: MIGUEL LEAL ([phone])[facility] ([facility])[address] [place] [address] TSH Qnon 06-24-2025 Interpretation and review of laboratory results Abnormal [facility] Urinalysis complete panel (U )Ordered By: Wendy Domingo on 06-24-2025 Bilirubin Ql (U) Negative Negative mg/dL [facility] Clarity (U) Clear Clear [facility] Color (U) Colorless Lt. Yellow [facility] Glucose Ql (U) Normal Normal (<70) mg/dL [facility] Hemoglobin Ql (U) Negative Negative mg/dL [facility] Interpretation and review of laboratory results Abnormal [facility] Ketones (U) [Mass/Vol] Trace Abnormal Negat nixon mg/dL [facility] Leukocyte esterase Test strip Ql (U) Negative Negative Pancho/uL [facility] Nitrite Ql (U) Negative Negative [facility] th pH (U) 7.0 [pH] 5.0 - 8.0 pH [facility] Protein (U) [Mass/Vol] Negative Negat nixon mg/dL [facility] Specific gravity (U) [Rel density] 1.036 High 1.005 - 1.030 [facility] Urobilinogen (U) [Mass/Vol] Normal Normal (0-1) mg/dL [facility] A specimen with <=10 WBC is not consistent with inflammation. This specimen will not reflex to a urine culture. [facility] Vital signsOrdered By: Thelma Lepe on 06-24-2025 Heart rate 80 /min bpm [facility] Work Phone: XR Chest Single viewon 06-24 Lines, tubes, and devices:None. Lungs and pleura: Mild interval decrease in small left apical pneumothorax now measuring up to 0.5 cm in thickness, previously 1 cm. Minimal streaky bibasilar opacities, likely atelectasis. No consolidation. No pleural effusion or sizable right pneumothorax. Cardiomediastinal silhouette: Stable cardiomediastinal silhouette.Atherosclero tic calcifications of the aortic archStatus post median sternotomy for presumed CABG. Other: Degenerative changes of the spine and shoulders. Report Dictated on Electronically Signed By: Delvis Morin MD Electronically Signed Date/Time: 06/24/2025 9:57 AM [facility] [employer] RADIOLOGY SYSTEM Patient Name: RICHIE ARMAS : 1950 Exam Date/Time: 06/24/2025 09:53 Procedure: XR CHEST 1 VIEW Ordering Provider: LONGORIA JACOB Reason For Exam: ALTERED MENTAL STATUS EXAMINATION: CHEST RADIOGRAPH (SINGLE VIEW AP OR PA) Clinical History: ALTERED MENTAL STATUS Comparison: Radiograph 06/22/2025 RESULT: See impression [facility] Delvis Morin MD - 06/24/2025 [facility] Name: [facility] 1950 [id number] Exam Date/Time: 06/24/2025 09:53 Procedure: XR CHEST 1 VIEW Ordering Provider: LONGORIA JACOB Reason For Exam: ALTERED MENTAL STATUS EXAMINATION: CHEST RADIOGRAPH (SINGLE VIEW AP OR PA) Clinical History: ALTERED MENTAL STATUS Comparison: Radiograph 06/22/2025 RESULT: See impression IMPRESSION: Lines, tubes, and devices:None. Lungs and pleura: Mild interval decrease in small left apical pneumothorax now measuring up to 0.5 cm in thickness, previously 1 cm. Minimal streaky bibasilar opacities, likely atelectasis. No consolidation. No pleural effusion or sizable right pneumothorax. Cardiomediastinal silhouette: Stable cardiomediastinal silhouette.Atherosclero tic calcifications of the aortic archStatus post median sternotomy for presumed CABG. Other: Degenerative changes of the spine and shoulders. Report Dictated on Electronically Signed By: Delvis Morin MD Electronically Signed Date/Time: 06/24/2025 9:57 AM EDT [facility] Radiology Study observation (narrative) [facility] alth XR Chest Single viewOrdered By: Delvis Morin on 06-24-2025 [facility] [employer] Work Phone: [phone] 06-23-2025 36 Normal [facility] 36 Normal [facility] [id number] 06-22-2025 [id number] Normal [facility] [id number] Home Health Care Services - [facility] [address] [place] [id number] Patient/Family Choice Normal [facility] BASIC METABOLIC PANELon 08-0 Anion gap [Moles/Vol] 12 mmol/L Normal 3-13 [facility] Comment on above: Performed By: #### L AB15, [id number] ####Flight Line Service Attendant: MIGUEL LEAL ([phone])[facility] ([facility])[address] [place] [address] Calcium [Mass/Vol] 8.6 mg/dL Low 8.8-10.0 [facility] Comment on above: Performed By: #### L AB15, [id number] ####Flight Line Service Attendant: MIGUEL LEAL ([phone])[facility] [place] [address] Chloride [Moles/Vol] 103 mmol/L Normal 98-107 [facility] Comment on above: Performed By: #### L AB15, [id number] ####Flight Line Service Attendant: MIGUEL LEAL ([phone])[facility] [place] [address] CO2 [Moles/Vol] 22 mmol/L Low 23-31 [facility] Comment on above: Performed By: #### L AB15, [id number] ####Flight Line Service Attendant: MIGUEL LEAL ([phone])[facility] ([facility])[address] [place] [address] Creatinine [Mass/Vol] 0.59 mg/dL Normal 0.57-1.11 [facility] Comment on above: Performed By: #### L AB15, [id number] ####Flight Line Service Attendant: MIGUEL LEAL ([phone])[facility] ([facility])[address] [place] [address] GLOMERULAR FILTRATION RATE ML/MIN/1.73 SQ M.PREDICTED >90.0 Normal >60.0 [facility] Comment on above: Result Comment: Calc ulation based on the Chronic Kidney Disease Epidemiology Collaboration (CKD-EPI) equation refit without adjustment for race Performed By: #### L AB15, [id number] ####Flight Line Service Attendant: MIGUEL LEAL ([phone])[facility] ([facility])[address] [place] [address] [place] Glucose [Mass/Vol] 92 mg/dL Normal 82-115 [facility] Comment on above: Performed By: #### L AB15, [id number] ####Flight Line Service Attendant: MIGUEL LEAL ([phone])[facility])[address] [place] [address] Potassium [Moles/Vol] 3.9 mmol/L Normal 3.5-5.1 [facility] Comment on above: Result Comment: [facility] potassium values may be up to 0.5 mmol/L lower than serum values. Performed By: #### L AB15, [id number] ####Flight Line Service Attendant: MIGUEL LEAL ([phone])[facility])[address] [place] [address] Sodium [Moles/Vol] 137 mmol/L Normal 136-145 [facility] Comment on above: Performed By: #### L AB15, [id number] ####Flight Line Service Attendant: MIGUEL LEAL ([phone])[facility])[address] [place] [address] Urea nitrogen [Mass/Vol] 12 mg/dL Normal 9-23 [facility] Comment on above: Performed By: #### L AB15, [id number] ####Flight Line Service Attendant: MIGUEL LEAL ([phone])[facility])[address] [place] [address] Basic metabolic 1998 panelon 06-22-2025 Anion gap [Moles/Vol] 12 mmol/L 3 - 13 mmol/L [facility] Calcium [Mass/Vol] 8.6 mg/dL Low 8.8 - 10. 0 mg/dL [facility] Chloride [Moles/Vol] 103 mmol/L 98 - 10 7 mmol/L [facility] CO2 [Moles/Vol] 22 mmol/L Low 23 - 31 mmol/L [facility] Creatinine [Mass/Vol] 0.59 mg/dL 0.57 - 1.11 mg/dL [facility] GFR/1.73 sq M.predicted (S/P/Bld) [Vol rate/Area] - PINF [facility] Glucose [Mass/Vol] 92 mg/dL 82 - 115 mg/dL [facility] Interpretation and review of laboratory results Abnormal [facility] Potassium [Moles/Vol] 3.9 mmol/L 3.5 - 5.1 mmol/L [facility] Sodium [Moles/Vol] 137 mmol/L 136 - 145 mmol/L [facility] Urea nitrogen [Mass/Vol] 12 mg/dL 9 - 23 mg/dL [facility] CBC (HEMOGRAM)on 06-22-2025 Erythrocyte distribution width (RBC) [Ratio] 15.1 % High 11.5-15.0 [facility] Comment on above: Performed By: #### L [id number] ####Flight Line Service Attendant: MIGUEL LEAL ([phone])[facility])[address] [place] [address] Hematocrit (Bld) [Volume fraction] 25.8 % Low 35.0-47.0 [facility] Comment on above: Performed By: #### L AB294 ####Flight Line Service Attendant: MIGUEL LEAL ([phone])[facility])[address] [place] [address] Hemoglobin (Bld) [Mass/Vol] 8.5 g/dL Low 11.7-16.0 [facility] Comment on above: Performed By: #### L AB294 ####Flight Line Service Attendant: MIGUEL LEAL ([phone])[facility])[address] [place] [address] MCH (RBC) [Entitic mass] 30.8 pg Normal 26.0-34.0 [facility] Comment on above: Performed By: #### L AB294 ####Flight Line Service Attendant: MIGUEL LEAL ([phone])[facility])[address] [place] [address] MCHC 32.9 % Normal 30.5-36.0 [facility] Comment on above: Performed By: #### L AB294 ####Flight Line Service Attendant: MIGUEL LEAL ([phone])[facility])[address] [place] [address] MCV (RBC) [Entitic vol] 93.5 fL Normal 77.0-99.0 [facility] Comment on above: Performed By: #### L AB294 ####Flight Line Service Attendant: MIGUEL LEAL ([phone])[facility])[address] [place] [address] Platelet mean volume (Bld) [Entitic vol] 12.9 fL High 9.0-12.7 [facility] Comment on above: Performed By: #### L AB294 ####Flight Line Service Attendant: MIGUEL LEAL ([phone])[facility] ([facility])[address] [place] [address] Platelets (Bld) [#/Vol] 133 10*3/uL Low 140-440 [facility] Comment on above: Performed By: #### L AB294 ####Flight Line Service Attendant: MIGUEL LEAL ([phone])[facility])[address] [place] [address] RBC (Bld) [#/Vol] 2.76 10*6/uL Low 3.80-5.20 [facility] Comment on above: Performed By: #### L AB294 ####Flight Line Service Attendant: MIGUEL LEAL ([phone])[facility])[address] [place] [address] WBC (Bld) [#/Vol] 7.5 10*3/uL Normal 3.6-10.7 [facility] Comment on above: Performed By: #### L AB294 ####Flight Line Service Attendant: MIGUEL LEAL ([phone])[facility])[address] [place] [address] CBC panel Auto (Bld)on 06-22 Erythrocyte distribution width (RBC) [Ratio] 15.1 % High 11.5 - 15.0 % [facility] Hematocrit (Bld) [Volume fraction] 25.8 % Low 35.0 - 47.0 % [facility] Hemoglobin (Bld) [Mass/Vol] 8.5 g/dL Low 11.7 - 16.0 g/dL [facility] Interpretation and review of laboratory results Abnormal [facility] MCH (RBC) [Entitic mass] 30.8 pg 26.0 - 34.0 pg [facility] MCHC (RBC) [Mass/Vol] 32.9 % 30.5 - 36.0 % [facility] MCV (RBC) [Entitic vol] 93.5 fL 77.0 - 99.0 fL [facility] Platelet mean volume (Bld) [Entitic vol] 12.9 fL High 9.0 - 12.7 fL [facility] Platelets (Bld) [#/Vol] 133 10*3/uL Low 140 - 440 10*3/uL [facility] RBC (Bld) [#/Vol] 2.76 10*6/uL Low 3.80 - 5.2 0 10*6/uL [facility] WBC (Bld) [#/Vol] 7.5 10*3/uL 3.6 - 10.7 10*3/uL [facility] Laboratory - Chemistry and C hemistry - challengeon 06-22-2025 Magnesium [Mass/Vol] 1.8 mg/dL 1.6 - 2 .6 mg/dL [facility] MAGNESIUMon 06-22-2025 Magnesium [Mass/Vol] 1.8 mg/dL Normal 1.6-2.6 [facility] Comment on above: Result Comment: ROCIO R COMMENTS:Higher values can be expected in females during menses. Performed By: #### L AB15, [id number] ####Flight Line Service Attendant: MIGUEL LEAL ([phone])[facility] ([address] Magnesium [Mass/Vol]on 06-22 Interpretation and review of laboratory results Normal [facility] No Panel Informationon 06-22 [facility] Blood Expiration Date [id number] S [facility] Crossmatch interpretation COMP [facility] [employer] Dispense Status Released from [employer] [facility] [employer] Product Blood Type 6200 [facility] PRODUCT CODE [id number] [facility] PRODUCT CODE [id number] [facility] ABO A [facility] Unit Number [id number] [facility] alth Unit Number [id number] [facility] Unit RH Positive [facility] Volume 300 mL [facility] Progress Noteon 06-22-2025 Progress Note Normal [facility] Progress Note Normal [facility] XR CHEST 1 VIEWon 06-22-2025 XR CHEST 1 VIEW Normal [facility] XR Chest Single viewon 06-22 [facility] Radiology Study observation (narrative) [place] [id number] 06-21-2025 [id number] Normal [facility] BASIC METABOLIC PANELon 08 Anion gap [Moles/Vol] 9 mmol/L Normal 3-13 [facility] Comment on above: Performed By: #### L AB103, LAB15 ####Flight Line Service Attendant: MIGUEL LEAL ([phone])[facility] ([facility])[address] [place] [address] Calcium [Mass/Vol] 8.9 mg/dL Normal 8.8-10.0 [facility] Comment on above: Performed By: #### L AB103, LAB15 ####Flight Line Service Attendant: MIGUEL LEAL ([phone])[facility] ([facility])[address] [place] [address] [place] Chloride [Moles/Vol] 101 mmol/L Normal 98-107 [facility] Comment on above: Performed By: #### L AB103, LAB15 ####Flight Line Service Attendant: MIGUEL LEAL ([phone])[facility] [place] [address] [place] CO2 [Moles/Vol] 25 mmol/L Normal 23-31 [facility] Comment on above: Performed By: #### L AB103, LAB15 ####Flight Line Service Attendant: MIGUEL LEAL ([phone])[facility] [place] [address] [place] Creatinine [Mass/Vol] 0.75 mg/dL Normal 0.57-1.11 [facility] Comment on above: Performed By: #### L AB103, LAB15 ####Flight Line Service Attendant: MIGUEL LEAL ([phone])[facility])[address] [place] [address] [place] GLOMERULAR FILTRATION RATE ML/MIN/1.73 SQ M.PREDICTED 83.7 mL/min/1.73m*2 Normal >60.0 [facility] Comment on above: Result Comment: Calc ulation based on the Chronic Kidney Disease Epidemiology Collaboration (CKD-EPI) equation refit without adjustment for race Performed By: #### L AB103, LAB15 ####Flight Line Service Attendant: MIGUEL LEAL ([phone])[facility])[address] [place] [address] Glucose [Mass/Vol] 113 mg/dL Normal 82-115 [facility] Comment on above: Performed By: #### L AB103, LAB15 ####Flight Line Service Attendant: MIGUEL LEAL ([phone])[facility])[address] [place] [address] Potassium [Moles/Vol] 4.0 mmol/L Normal 3.5-5.1 [facility] Comment on above: Result Comment: [facility] potassium values may be up to 0.5 mmol/L lower than serum values. Performed By: #### L AB103, LAB15 ####Flight Line Service Attendant: MIGUEL LEAL ([phone])[facility])[address] [place] [address] Sodium [Moles/Vol] 135 mmol/L Low 136-145 [facility] Comment on above: Performed By: #### L AB103, LAB15 ####Flight Line Service Attendant: MIGUEL LEAL ([phone])[address] Urea nitrogen [Mass/Vol] 11 mg/dL Normal 9-23 [facility] Comment on above: Performed By: #### L AB103, LAB15 ####Flight Line Service Attendant: MIGUEL LEAL ([phone])[address] Basic metabolic 1998 panelon 06-21-2025 Anion gap [Moles/Vol] 9 mmol/L 3 - 13 mmol/L [facility] Calcium [Mass/Vol] 8.9 mg/dL 8.8 - 10. 0 mg/dL [facility] Chloride [Moles/Vol] 101 mmol/L 98 - 10 7 mmol/L [facility] CO2 [Moles/Vol] 25 mmol/L 23 - 31 mmol/L [facility] Creatinine [Mass/Vol] 0.75 mg/dL 0.57 - 1.11 mg/dL [facility] GFR/1.73 sq M.predicted (S/P/Bld) [Vol rate/Area] 83.7 mL/min - PINF [facility] Glucose [Mass/Vol] 113 mg/dL 82 - 115 mg/dL [facility] Interpretation and review of laboratory results Abnormal [facility] Potassium [Moles/Vol] 4 mmol/L 3.5 - 5.1 mmol/L [facility] Sodium [Moles/Vol] 135 mmol/L Low 136 - 145 mmol/L [facility] Urea nitrogen [Mass/Vol] 11 mg/dL 9 - 23 mg/dL [facility] CBC (HEMOGRAM)on 06-21-2025 Erythrocyte distribution width (RBC) [Ratio] 15.5 % High 11.5-15.0 [facility] Comment on above: Performed By: #### L AB294 ####Flight Line Service Attendant: MIGUEL LEAL ([phone])[address] Hematocrit (Bld) [Volume fraction] 24.5 % Low 35.0-47.0 [facility] Comment on above: Performed By: #### L AB294 ####Flight Line Service Attendant: MIGUEL LEAL ([phone])[facility])[address] [place] [address] Hemoglobin (Bld) [Mass/Vol] 7.7 g/dL Low 11.7-16.0 [facility] Comment on above: Performed By: #### L AB294 ####Flight Line Service Attendant: MIGUEL LEAL ([phone])[facility])[address] [place] [address] IPF 7 Normal [facility] Comment on above: Performed By: #### L AB294 ####Flight Line Service Attendant: MIGUEL [phone])[facility])[address] [place] [address] MCH (RBC) [Entitic mass] 30.1 pg Normal 26.0-34.0 [facility] Comment on above: Performed By: #### L AB294 ####Flight Line Service Attendant: MIGUEL LEAL ([phone])[facility] ([facility])[address] [place] [address] MCHC 31.4 % Normal 30.5-36.0 [facility] Comment on above: Performed By: #### L AB294 ####Flight Line Service Attendant: MIGULE LEAL ([phone])[facility] ([facility])[address] [place] [address] MCV (RBC) [Entitic vol] 95.7 fL Normal 77.0-99.0 S [facility] Comment on above: Performed By: #### L AB294 ####Flight Line Service Attendant: MIGUEL LEAL ([phone])[facility] ([facility])[address] [place] [address] Platelet mean volume (Bld) [Entitic vol] 11.6 fL Normal 9.0-12.7 [facility] Comment on above: Performed By: #### L AB294 ####Flight Line Service Attendant: MIGUEL LEAL ([phone])[facility] ([facility])[address] [place] [address] Platelets (Bld) [#/Vol] 122 10*3/uL Low 140-440 [facility] Comment on above: Performed By: #### L AB294 ####Flight Line Service Attendant: MIGUEL LEAL ([phone])[facility] ([facility])[address] [place] [address] RBC (Bld) [#/Vol] 2.56 10*6/uL Low 3.80-5.20 [facility] Comment on above: Performed By: #### L AB294 ####Flight Line Service Attendant: MIGUEL LEAL ([phone])[facility] ([facility])[address] [place] [address] WBC (Bld) [#/Vol] 8.0 10*3/uL Normal 3.6-10.7 [facility] Comment on above: Performed By: #### L AB294 ####Flight Line Service Attendant: MIGUEL LEAL ([phone])[facility] ([address] CBC panel Auto (Bld)on 06-21 Erythrocyte distribution width (RBC) [Ratio] 15.5 % High 11.5 - 15.0 % [facility] Hematocrit (Bld) [Volume fraction] 24.5 % Low 35.0 - 47.0 % [facility] Hemoglobin (Bld) [Mass/Vol] 7.7 g/dL Low 11.7 - 16.0 g/dL [facility] Interpretation and review of laboratory results Abnormal [facility] IPF 7 [facility] MCH (RBC) [Entitic mass] 30.1 pg 26.0 - 34.0 pg [facility] MCHC (RBC) [Mass/Vol] 31.4 % 30.5 - 36.0 % [facility] MCV (RBC) [Entitic vol] 95.7 fL 77.0 - 99.0 fL [facility] Platelet mean volume (Bld) [Entitic vol] 11.6 fL 9.0 - 12.7 fL [facility] Platelets (Bld) [#/Vol] 122 10*3/uL Low 140 - 440 10*3/uL [facility] RBC (Bld) [#/Vol] 2.56 10*6/uL Low 3.80 - 5.2 0 10*6/uL [facility] WBC (Bld) [#/Vol] 8 10*3/uL 3.6 - 10.7 10*3/uL [facility] ECG 12-LEADon 06-21-2025 ECG 12-LEAD IMPRESSION: Sinus rhythm Compared to ECG 06/19/2025 05:25:37 T-wave abnormality no longer present Possible ischemia no longer present Electronically Signed On 06-21-2025 17:13:05 EDT by Ladarius Peng Normal [facility] Laboratory - Chemistry and C hemistry - challengeon 06-21-2025 Magnesium [Mass/Vol] 1.7 mg/dL 1.6 - 2 .6 mg/dL [facility] MAGNESIUMon 06-21-2025 Magnesium [Mass/Vol] 1.7 mg/dL Normal 1.6-2.6 [facility] Comment on above: Result Comment: ROCIO R COMMENTS:Higher values can be expected in females during menses. Performed By: #### L AB103, LAB15 ####Flight Line Service Attendant: MIGUEL LEAL ([phone])[facility] ([facility])[address] [place] [address] [place] Magnesium [Mass/Vol]on 06-21 Interpretation and review of laboratory results Normal [facility] No Panel Informationon 06-21 P [place] 48 degrees [facility] [place] Interval 150 ms [facility] QRS [place] 61 degrees [facility] QRSD Interval [facility]val 407 ms [facility] QTC Interval 430 ms [facility] T Wave [place] 0 degrees [facility] CV EPIPHANY [facility] Nursing Noteon 06-21-2025 Nursing Note Normal [facility] Progress Noteon 06-21-2025 Progress [facility] Progress [facility] Vital signson 06-21-2025 Heart rate 67 /min bpm [facility] XR CHEST 1 VIEWon 06-21-2025 XR CHEST 1 VIEW Normal [facility] XR Chest Single viewon 06-21 [facility] Radiology Study observation (narrative) [facility] BASIC METABOLIC PANELon 05-23 Anion gap [Moles/Vol] 8 mmol/L Normal 3-13 [facility] Comment on above: Performed By: #### L AB15, [id number] ####Flight Line Service Attendant: MIGUEL LEAL ([phone])[facility] ([facility])[address] [place] [address] [place] Calcium [Mass/Vol] 9.0 mg/dL Normal 8.8-10.0 [facility] Comment on above: Performed By: #### L AB15, [id number] ####Flight Line Service Attendant: MIGUEL LEAL ([phone])[facility] ([facility] [facility])[address] [place] [address] [place] Chloride [Moles/Vol] 101 mmol/L Normal 98-107 [facility] Comment on above: Performed By: #### L AB15, [id number] ####Flight Line Service Attendant: MIGUEL LEAL ([phone])[facility])[address] [place] [address] CO2 [Moles/Vol] 25 mmol/L Normal 23-31 [facility] Comment on above: Performed By: #### L AB15, [id number] ####Flight Line Service Attendant: MIGUEL LEAL ([phone])[facility])[address] [place] [address] Creatinine [Mass/Vol] 0.76 mg/dL Normal 0.57-1.11 [facility] Comment on above: Performed By: #### L AB15, [id number] ####Flight Line Service Attendant: MIGUEL LEAL ([phone])[facility])[address] [place] [address] [place] GLOMERULAR FILTRATION RATE ML/MIN/1.73 SQ M.PREDICTED 82.3 mL/min/1.73m*2 Normal >60.0 [facility] Comment on above: Result Comment: Calc ulation based on the Chronic Kidney Disease Epidemiology Collaboration (CKD-EPI) equation refit without adjustment for race Performed By: #### L AB15, [id number] ####Flight Line Service Attendant: MIGUEL LEAL ([phone])[facility] ([facility])[address] [place] [address] [place] Glucose [Mass/Vol] 146 mg/dL High 82-115 [facility] Comment on above: Performed By: #### L AB15, [id number] ####Flight Line Service Attendant: MIGUEL LEAL ([phone])[facility])[address] [place] [address] [place] Potassium [Moles/Vol] 3.9 mmol/L Normal 3.5-5.1 [facility] Comment on above: Result Comment: [facility] potassium values may be up to 0.5 mmol/L lower than serum values. Performed By: #### L AB15, [id number] ####Flight Line Service Attendant: MGIUEL LEAL ([phone])[facility] ([facility])[address] [place] [address] Sodium [Moles/Vol] 134 mmol/L Low 136-145 [facility] Comment on above: Performed By: #### L AB15, [id number] ####Flight Line Service Attendant: MIGUEL LEAL ([phone])[facility] ([facility])[address] [place] [address] Urea nitrogen [Mass/Vol] 13 mg/dL Normal 9-23 [facility] Comment on above: Performed By: #### L AB15, [id number] ####Flight Line Service Attendant: MIGUEL LEAL ([phone])[facility] ([facility])[address] [place] [address] Basic metabolic 1998 panelon 06-20-2025 Anion gap [Moles/Vol] 8 mmol/L 3 - 13 mmol/L [facility] Calcium [Mass/Vol] 9 mg/dL 8.8 - 10. 0 mg/dL [facility] Chloride [Moles/Vol] 101 mmol/L 98 - 10 7 mmol/L [facility] CO2 [Moles/Vol] 25 mmol/L 23 - 31 mmol/L [facility] Creatinine [Mass/Vol] 0.76 mg/dL 0.57 - 1.11 mg/dL [facility] GFR/1.73 sq M.predicted (S/P/Bld) [Vol rate/Area] 82.3 mL/min - PINF [facility] Glucose [Mass/Vol] 146 mg/dL High 82 - 115 mg/dL [facility] Interpretation and review of laboratory results Abnormal [facility] Potassium [Moles/Vol] 3.9 mmol/L 3.5 - 5.1 mmol/L [facility] Sodium [Moles/Vol] 134 mmol/L Low 136 - 145 mmol/L [facility] Urea nitrogen [Mass/Vol] 13 mg/dL 9 - 23 mg/dL [facility] CBC (HEMOGRAM)on 06-20-2025 Erythrocyte distribution width (RBC) [Ratio] 15.7 % High 11.5-15.0 [facility] Comment on above: Performed By: #### L [id number] ####Flight Line Service Attendant: MIGUEL LEAL ([phone])[facility])[address] [place] [address] Hematocrit (Bld) [Volume fraction] 27.1 % Low 35.0-47.0 [facility] Comment on above: Performed By: #### L AB294 ####Flight Line Service Attendant: MIGUEL LEAL ([phone])[facility])[address] [place] [address] Hemoglobin (Bld) [Mass/Vol] 8.8 g/dL Low 11.7-16.0 [facility] Comment on above: Performed By: #### L AB294 ####Flight Line Service Attendant: MIGUEL LEAL ([phone])[address] IPF 7 Normal [facility] Comment on above: Performed By: #### L AB294 ####Flight Line Service Attendant: MIGUEL LEAL ([phone])[facility])[address] [place] [address] MCH (RBC) [Entitic mass] 30.8 pg Normal 26.0-34.0 [facility] Comment on above: Performed By: #### L AB294 ####Flight Line Service Attendant: MIGUEL LEAL ([phone])[facility])[address] [place] [address] MCHC 32.5 % Normal 30.5-36.0 [facility] Comment on above: Performed By: #### L AB294 ####Flight Line Service Attendant: MIGUEL LEAL ([phone])[facility])[address] [place] [address] MCV (RBC) [Entitic vol] 94.8 fL Normal 77.0-99.0 [facility] Comment on above: Performed By: #### L AB294 ####Flight Line Service Attendant: MIGUEL LEAL ([phone])[facility])[address] [place] [address] Platelet mean volume (Bld) [Entitic vol] 11.7 fL Normal 9.0-12.7 [facility] Comment on above: Performed By: #### L AB294 ####Flight Line Service Attendant: MIGUEL LEAL ([phone])[facility] ([facility])[address] [place] [address] Platelets (Bld) [#/Vol] 112 10*3/uL Low 140-440 [facility] Comment on above: Performed By: #### L AB294 ####Flight Line Service Attendant: MIGUEL LEAL ([phone])[facility] ([facility])[address] [place] [address] RBC (Bld) [#/Vol] 2.86 10*6/uL Low 3.80-5.20 [facility] Comment on above: Performed By: #### L AB294 ####Flight Line Service Attendant: MIGUEL LEAL ([phone])[facility] ([facility])[address] [place] [address] WBC (Bld) [#/Vol] 7.6 10*3/uL Normal 3.6-10.7 [facility] Comment on above: Performed By: #### L AB294 ####Flight Line Service Attendant: MIGUEL LEAL ([phone])[facility])[address] [place] [address] CBC panel Auto (Bld)on 06-20 Erythrocyte distribution width (RBC) [Ratio] 15.7 % High 11.5 - 15.0 % [facility] Hematocrit (Bld) [Volume fraction] 27.1 % Low 35.0 - 47.0 % [facility] Hemoglobin (Bld) [Mass/Vol] 8.8 g/dL Low 11.7 - 16.0 g/dL [facility] Interpretation and review of laboratory results Abnormal [facility] IPF 7 [facility] MCH (RBC) [Entitic mass] 30.8 pg 26.0 - 34.0 pg [facility] MCHC (RBC) [Mass/Vol] 32.5 % 30.5 - 36.0 % [facility] MCV (RBC) [Entitic vol] 94.8 fL 77.0 - 99.0 fL [facility] Platelet mean volume (Bld) [Entitic vol] 11.7 fL 9.0 - 12.7 fL [facility] Platelets (Bld) [#/Vol] 112 10*3/uL Low 140 - 440 10*3/uL [facility] RBC (Bld) [#/Vol] 2.86 10*6/uL Low 3.80 - 5.2 0 10*6/uL [facility] WBC (Bld) [#/Vol] 7.6 10*3/uL 3.6 - 10.7 10*3/uL [facility] Laboratory - Chemistry and C hemistry - challengeon 06-20-2025 Glucose [Mass/Vol] 108 mg/dL High 70 - 100 mg/dL [facility] Magnesium [Mass/Vol] 2 mg/dL 1.6 - 2 .6 mg/dL [facility] MAGNESIUMon 06-20-2025 Magnesium [Mass/Vol] 2.0 mg/dL Normal 1.6-2.6 [facility] Comment on above: Result Comment: ROCIO Bhandari COMMENTS:Higher values can be expected in females during menses. Performed By: #### L AB15, [id number] ####Flight Line Service Attendant: MIGUEL LEAL ([phone])[facility] ([facility] Magnesium [Mass/Vol]on 06-20 Interpretation and review of laboratory results Normal [facility] No Panel Informationon 06-20 Interpretation and review of laboratory results Abnormal [facility] Progress Noteon 06-20-2025 Progress Note Normal [facility] Progress Note Normal [facility] Progress Note [facility] Progress Note Normal [facility] Progress [facility] XR CHEST 1 VIEWon 06-20-2025 XR CHEST 1 VIEW Normal [facility] XR Chest Single viewon 06-20 [facility] Radiology Study observation (narrative) [facility] alth [id number] 06-19-2025 [id number] Normal [facility] [id number] 06-19-2025 [id number] Normal [facility] BASIC METABOLIC PANELon 07-3 0-2024 Anion gap [Moles/Vol] 10 mmol/L Normal 3-13 [facility] Comment on above: Performed By: #### L AB103, LAB15 ####Flight Line Service Attendant: MIGUEL LEAL ([phone])[facility] ([facility])[address] [place] [address] Calcium [Mass/Vol] 8.2 mg/dL Low 8.8-10.0 [facility] Comment on above: Performed By: #### L AB103, LAB15 ####Flight Line Service Attendant: MIGUEL LEAL ([phone])[facility] [place] [address] Chloride [Moles/Vol] 109 mmol/L High 98-107 [facility] Comment on above: Performed By: #### Jv AB103, LAB15 ####Flight Line Service Attendant: MIGUEL LEAL ([phone])[facility] [place] [address] CO2 [Moles/Vol] 20 mmol/L Low 23-31 [facility] Comment on above: Performed By: #### L AB103, LAB15 ####Flight Line Service Attendant: MIGUEL LEAL ([phone])[facility] ([facility])[address] [place] [address] Creatinine [Mass/Vol] 0.68 mg/dL Normal 0.57-1.11 [facility] Comment on above: Performed By: #### L AB103, LAB15 ####Flight Line Service Attendant: MIGUEL LEAL ([phone])[facility] ([facility])[address] [place] [address] GLOMERULAR FILTRATION RATE ML/MIN/1.73 SQ M.PREDICTED >90.0 Normal >60.0 [facility] Comment on above: Result Comment: Calc ulation based on the Chronic Kidney Disease Epidemiology Collaboration (CKD-EPI) equation refit without adjustment for race Performed By: #### L AB103, LAB15 ####Flight Line Service Attendant: MIGUEL LEAL ([phone])[facility] ([facility])[address] [place] [address] Glucose [Mass/Vol] 116 mg/dL High 82-115 [facility] Comment on above: Performed By: #### L AB103, LAB15 ####Flight Line Service Attendant: MIGUEL LEAL ([phone])[facility])[address] [place] [address] Potassium [Moles/Vol] 4.1 mmol/L Normal 3.5-5.1 [facility] Comment on above: Result Comment: [facility] potassium values may be up to 0.5 mmol/L lower than serum values. Performed By: #### L AB103, LAB15 ####Flight Line Service Attendant: MIGUEL LEAL ([phone])[facility])[address] [place] [address] Sodium [Moles/Vol] 139 mmol/L Normal 136-145 [facility] Comment on above: Performed By: #### L AB103, LAB15 ####Flight Line Service Attendant: MIGUEL LEAL ([phone])[facility] ([facility])[address] [place] [address] Urea nitrogen [Mass/Vol] 10 mg/dL Normal 9-23 [facility] Comment on above: Performed By: #### L AB103, LAB15 ####Flight Line Service Attendant: MIGUEL LEAL ([phone])[facility] ([facility])[address] [place] [address] BLOOD GAS ARTERIALon 30-2 025 AMOUNT OF OXYGEN 40 Normal [facility] Comment on above: Performed By: #### L AB76 ####Flight Line Service Attendant: MIGUEL LEAL ([phone])[facility] ([facility])[address] [place] [address] Base excess Calc (Bld) [Moles/Vol] 2.0 mmol/L Normal -3.0-3.0 [facility] Comment on above: Performed By: #### L AB76 ####Flight Line Service Attendant: MIGUEL LEAL ([phone])[facility])[address] [place] [address] [place] CO2 [Moles/Vol] 28.4 mmol/L High 23.0-27.[address] [facility] Comment on above: Performed By: #### L AB76 ####Flight Line Service Attendant: MIGUEL LEAL ([phone])[facility] ([facility])[address] [place] [address] HCO3 (Bld) [Moles/Vol] 27.0 mmol/L High 21.0-25.0 [facility] Comment on above: Performed By: #### L AB76 ####Flight Line Service Attendant: MIGUEL LEAL ([phone])[facility] ([facility])[address] [place] [address] Hemoglobin (Bld) [Mass/Vol] 9.9 g/dL Normal Screen only [facility] Comment on above: Performed By: #### L AB76 ####Flight Line Service Attendant: MIGUEL LEAL ([phone])[facility] ([facility])[address] [place] [address] OXYGEN SATURATION (%) IN ARTERIAL BLOOD 98.9 % Normal 95.0-100.0 [facility] Comment on above: Performed By: #### L AB76 ####Flight Line Service Attendant: MIGUEL LEAL ([phone])[facility] ([facility])[address] [place] [address] PCO2 ARTERIAL 44.1 mm Hg Normal >35.0-<45.0 [facility] Comment on above: Performed By: #### L AB76 ####Flight Line Service Attendant: MIGUEL LEAL ([phone])[facility])[address] [place] [address] PH ARTERIAL 7.405 Normal 7.350-7.450 [facility] Comment on above: Performed By: #### L AB76 ####Flight Line Service Attendant: MIGUEL LEAL ([phone])[facility] ([facility])[address] [place] [address] PO2 ARTERIAL 147.2 mm Hg High 80.0-100.0 [facility] Comment on above: Performed By: #### L AB76 ####Flight Line Service Attendant: MIGUEL LEAL ([phone])[facility] ([facility])[address] [place] [address] SOURCE OF OXYGEN Non-Invasive Ventilator Normal [facility] Comment on above: Performed By: #### L AB76 ####Flight Line Service Attendant: MIGUEL LEAL ([phone])[facility] ([facility])[address] [place] [address] AMOUNT OF OXYGEN 40% Normal [facility] Comment on above: Performed By: #### L AB76 ####Flight Line Service Attendant: MIGUEL LEAL ([phone])[facility] ([facility])[address] [place] [address] Base excess Calc (Bld) [Moles/Vol] 1.4 mmol/L Normal -3.0-3.0 [facility] Comment on above: Performed By: #### L AB76 ####Flight Line Service Attendant: MIGUEL LEAL ([phone])[facility] ([facility])[address] [place] [address] CO2 [Moles/Vol] 28.4 mmol/L High 23.0-27.0 [facility] Comment on above: Performed By: #### L AB76 ####Flight Line Service Attendant: MIGUEL LEAL ([phone])[facility] ([facility])[address] [place] [address] HCO3 (Bld) [Moles/Vol] 27.0 mmol/L High 21.0-25.0 [facility] Comment on above: Performed By: #### L AB76 ####Flight Line Service Attendant: MIGUEL LEAL ([phone])[facility] ([facility])[address] [place] [address] [place] Hemoglobin (Bld) [Mass/Vol] 9.0 g/dL Normal Screen only [facility] Comment on above: Performed By: #### L AB76 ####Flight Line Service Attendant: MIGUEL LEAL ([phone])[facility] ([facility])[address] [place] [address] OXYGEN SATURATION (%) IN ARTERIAL BLOOD 97.8 % Normal 95.0-100.0 [facility] Comment on above: Performed By: #### L AB76 ####Flight Line Service Attendant: MIGUEL LEAL ([phone])[facility] ([facility])[address] [place] [address] PCO2 ARTERIAL 47.5 mm Hg High >35.0-<45.0 [facility] Comment on above: Performed By: #### L AB76 ####Flight Line Service Attendant: MIGUEL LEAL ([phone])[facility])[address] [place] [address] PH ARTERIAL 7.372 Normal 7.350-7.450 [facility] Comment on above: Performed By: #### L AB76 ####Flight Line Service Attendant: MIGUEL LEAL ([phone])[facility])[address] [place] [address] PO2 ARTERIAL 109.4 mm Hg High 80.0-100.0 [facility] Comment on above: Performed By: #### L AB76 ####Flight Line Service Attendant: MIGUEL LEAL ([phone])[facility])[address] [place] [address] SOURCE OF OXYGEN Non-Invasive Ventilator Normal [facility] Comment on above: Performed By: #### L AB76 ####Flight Line Service Attendant: MIGUEL LEAL ([phone])[facility])[address] [place] [address] AMOUNT OF OXYGEN 40% Normal [facility] Comment on above: Order Comment: 30 mi n after vent changes Performed By: #### L AB76 ####Flight Line Service Attendant: MIGUEL LEAL ([phone])[facility] ([facility])[address] [place] [address] Base excess Calc (Bld) [Moles/Vol] -2.0000 mmol/L Normal -3.0-3.0 [facility] Comment on above: Order Comment: 30 mi n after vent changes Performed By: #### L AB76 ####Flight Line Service Attendant: MIGUEL LEAL ([phone])[facility])[address] [place] [address] [place] CO2 [Moles/Vol] 26.6 mmol/L Normal 23.0-27.0 [facility] Comment on above: Order Comment: 30 mi n after vent changes Performed By: #### L AB76 ####Flight Line Service Attendant: MIGUEL LEAL ([phone])[facility] ([facility])[address] [place] [address] HCO3 (Bld) [Moles/Vol] 24.9 mmol/L Normal 21.0-25.0 [facility] Comment on above: Order Comment: 30 mi n after vent changes Performed By: #### L AB76 ####Flight Line Service Attendant: MIGUEL LEAL ([phone])[facility] ([facility])[address] [place] [address] Hemoglobin (Bld) [Mass/Vol] 8.8 g/dL Normal Screen only [facility] Comment on above: Order Comment: 30 mi n after vent changes Performed By: #### L AB76 ####Flight Line Service Attendant: MIGUEL LEAL ([phone])[facility] [place] [address] OXYGEN SATURATION (%) IN ARTERIAL BLOOD 97.8 % Normal 95.0-100.0 [facility] Comment on above: Order Comment: 30 mi n after vent changes Performed By: #### L AB76 ####Flight Line Service Attendant: MIGUEL LEAL ([phone])[facility] [place] [address] PCO2 ARTERIAL 54.0 mm Hg High >35.0-<45.0 [facility] Comment on above: Order Comment: 30 mi n after vent changes Performed By: #### L AB76 ####Flight Line Service Attendant: MIGUEL LEAL ([phone])[facility] ([facility])[address] [place] [address] PH ARTERIAL 7.282 Low 7.350-7.450 [facility] Comment on above: Order Comment: 30 mi n after vent changes Performed By: #### L AB76 ####Flight Line Service Attendant: MIGUEL LEAL ([phone])[facility] [place] [address] PO2 ARTERIAL 122.3 mm Hg High 80.0-100.0 [facility] Comment on above: Order Comment: 30 mi n after vent changes Performed By: #### L AB76 ####Flight Line Service Attendant: MIGUEL LEAL ([phone])[facility] ([facility])[address] [place] [address] SOURCE OF OXYGEN Non-Invasive Ventilator Normal [facility] Comment on above: Order Comment: 30 mi n after vent changes Performed By: #### L AB76 ####Flight Line Service Attendant: MIGUEL LEAL ([phone])[facility] ([facility])[address] [place] [address] AMOUNT OF OXYGEN 40% Normal [facility] Comment on above: Order Comment: 30 mi n after vent changes Performed By: #### L AB76 ####Flight Line Service Attendant: MIGUEL LEAL ([phone])[facility] ([facility])[address] [place] [address] Base excess Calc (Bld) [Moles/Vol] -1.2000 mmol/L Normal -3.0-3.0 [facility] Comment on above: Order Comment: 30 mi n after vent changes Performed By: #### L AB76 ####Flight Line Service Attendant: MIGUEL LEAL ([phone])[facility] ([facility])[address] [place] [address] CO2 [Moles/Vol] 27.9 mmol/L High 23.0-27.0 [facility] Comment on above: Order Comment: 30 mi n after vent changes Performed By: #### L AB76 ####Flight Line Service Attendant: MIGUEL LEAL ([phone])[facility] ([facility])[address] [place] [address] HCO3 (Bld) [Moles/Vol] 26.2 mmol/L High 21.0-25.0 [facility] Comment on above: Order Comment: 30 mi n after vent changes Performed By: #### L AB76 ####Flight Line Service Attendant: MIGUEL [phone])[facility] ([facility])[address] [place] [address] Hemoglobin (Bld) [Mass/Vol] 9.1 g/dL Normal Screen only [facility] Comment on above: Order Comment: 30 mi n after vent changes Performed By: #### L AB76 ####Flight Line Service Attendant: MIGUEL LEAL ([phone])[facility] [place] [address] OXYGEN SATURATION (%) IN ARTERIAL BLOOD 97.1 % Normal 95.0-100.0 [facility] Comment on above: Order Comment: 30 mi n after vent changes Performed By: #### L AB76 ####Flight Line Service Attendant: MIGUEL LEAL ([phone])[facility] ([facility])[address] [place] [address] PCO2 ARTERIAL 58.4 mm Hg High >35.0-<45.0 [facility] Comment on above: Order Comment: 30 mi n after vent changes Performed By: #### L AB76 ####Flight Line Service Attendant: MIGUEL LEAL ([phone])[facility] [place] [address] PH ARTERIAL 7.269 Low 7.350-7.450 [facility] Comment on above: Order Comment: 30 mi n after vent changes Performed By: #### L AB76 ####Flight Line Service Attendant: MIGUEL LAEL ([phone])[facility] ([facility] [place] [address] PO2 ARTERIAL 112.9 mm Hg High 80.0-100.0 [facility] Comment on above: Order Comment: 30 mi n after vent changes Performed By: #### L [id number] ####Flight Line Service Attendant: MIGUEL LEAL ([phone])[facility] ([facility])[address] [place] [address] SOURCE OF OXYGEN Non-Invasive Ventilator Normal [facility] Comment on above: Order Comment: 30 mi n after vent changes Performed By: #### L [id number] ####Flight Line Service Attendant: MIGUEL LEAL ([phone])[facility] ([facility])[address] [place] [address] Basic metabolic 1998 panelOr dered By: Andie Vera on 06-19-2025 Anion gap [Moles/Vol] 10 mmol/L 3 - 13 mmol/L [facility] Calcium [Mass/Vol] 8.2 mg/dL Low 8.8 - 10. 0 mg/dL [facility] Chloride [Moles/Vol] 109 mmol/L High 98 - 10 7 mmol/L [facility] CO2 [Moles/Vol] 20 mmol/L Low 23 - 31 mmol/L [facility] Creatinine [Mass/Vol] 0.68 mg/dL 0.57 - 1.11 mg/dL [facility] GFR/1.73 sq M.predicted (S/P/Bld) [Vol rate/Area] - PINF [facility] Glucose [Mass/Vol] 116 mg/dL High 82 - 115 mg/dL [facility] Potassium [Moles/Vol] 4.1 mmol/L 3.5 - 5.1 mmol/L [facility] Sodium [Moles/Vol] 139 mmol/L 136 - 145 mmol/L [facility] Urea nitrogen [Mass/Vol] 10 mg/dL 9 - 23 mg/dL [facility] CALCIUM, IONIZEDon CALCIUM IONIZED 4.10 mg/dL Low 4.30-5.20 [facility] Comment on above: Order Comment: Obtai n PRN and check ionized Ca level if serum Ca level less than 8.0 Performed By: #### L AB54 ####Flight Line Service Attendant: MIGUEL LEAL ([phone])[facility] ([facility])[address] [place] [address] PH, IONIZED CALCIUM 7.39 Normal 7.31-7.46 [facility] Comment on above: Order Comment: Obtai n PRN and check ionized Ca level if serum Ca level less than 8.0 Performed By: #### L AB54 ####Flight Line Service Attendant: MIGUEL LEAL ([phone])[facility] ([facility])[address] [place] [address] CBC (HEMOGRAM)on 06-19-2025 Erythrocyte distribution width (RBC) [Ratio] 15.7 % High 11.5-15.0 [facility] Comment on above: Performed By: #### L [id number] ####Flight Line Service Attendant: MIGUEL LEAL ([phone])[address] Hematocrit (Bld) [Volume fraction] 26.7 % Low 35.0-47.0 [facility] Comment on above: Performed By: #### L [id number] ####Flight Line Service Attendant: MIGUEL LEAL ([phone])[facility])[address] [place] [address] Hemoglobin (Bld) [Mass/Vol] 8.8 g/dL Low 11.7-16.0 [facility] Comment on above: Performed By: #### L [id number] ####Flight Line Service Attendant: MIGUEL LEAL ([phone])[address] IPF 6 Normal [facility] Comment on above: Performed By: #### L [id number] ####Flight Line Service Attendant: MIGUEL LEAL ([phone])[address] MCH (RBC) [Entitic mass] 31.4 pg Normal 26.0-34.0 [facility] Comment on above: Performed By: #### L [id number] ####Flight Line Service Attendant: MIGUEL LEAL ([phone])[facility])[address] [place] [address] MCHC 33.0 % Normal 30.5-36.0 [facility] Comment on above: Performed By: #### L [id number] ####Flight Line Service Attendant: MIGUEL LEAL ([phone])[address] MCV (RBC) [Entitic vol] 95.4 fL Normal 77.0-99.0 [facility] Comment on above: Performed By: #### L [id number] ####Flight Line Service Attendant: MIGUEL LEAL ([phone])[address] [place] [address] [place] Platelet mean volume (Bld) [Entitic vol] 10.8 fL Normal 9.0-12.7 [facility] Comment on above: Performed By: #### L [id number] ####Flight Line Service Attendant: MIGUEL LEAL ([phone])[facility])[address] [place] [address] Platelets (Bld) [#/Vol] 110 10*3/uL Low 140-440 [facility] Comment on above: Performed By: #### L AB294 ####Flight Line Service Attendant: MIGUEL LEAL ([phone])[facility])[address] [place] [address] RBC (Bld) [#/Vol] 2.80 10*6/uL Low 3.80-5.20 [facility] Comment on above: Performed By: #### L AB294 ####Flight Line Service Attendant: MIGUEL LEAL ([phone])[facility])[address] [place] [address] WBC (Bld) [#/Vol] 7.8 10*3/uL Normal 3.6-10.7 [facility] Comment on above: Performed By: #### L [id number] ####Flight Line Service Attendant: MIGUEL LEAL ([phone])[facility])[address] [place] [address] CBC panel Auto (Bld)on 06-19 Erythrocyte distribution width (RBC) [Ratio] 15.7 % High 11.5 - 15.0 % [facility] Hematocrit (Bld) [Volume fraction] 26.7 % Low 35.0 - 47.0 % [facility] Hemoglobin (Bld) [Mass/Vol] 8.8 g/dL Low 11.7 - 16.0 g/dL [facility] Interpretation and review of laboratory results Abnormal [facility] IPF 6 [facility] MCH (RBC) [Entitic mass] 31.4 pg 26.0 - 34.0 pg [facility] MCHC (RBC) [Mass/Vol] 33 % 30.5 - 36.0 % [facility] MCV (RBC) [Entitic vol] 95.4 fL 77.0 - 99.0 fL [facility] Platelet mean volume (Bld) [Entitic vol] 10.8 fL 9.0 - 12.7 fL [facility] Platelets (Bld) [#/Vol] 110 10*3/uL Low 140 - 440 10*3/uL [facility] RBC (Bld) [#/Vol] 2.8 10*6/uL Low 3.80 - 5.2 0 10*6/uL [facility] WBC (Bld) [#/Vol] 7.8 10*3/uL 3.6 - 10.7 10*3/uL [facility] Calcium.ionized [Moles/Vol]o n 06-19-2025 Calcium.ionized (Bld) [Moles/Vol] 4.1 mg/dL Low 4.30 - 5.20 mg/dL [facility] PH, IONIZED CALCIUM 7.39 7.31 - 7.46 [facility] Consulton 06-19-2025 Consult Normal [facility] Consult Normal [facility] Consult Normal [facility] ECG 12-LEADon 06-19-2025 ECG 12-LEAD IMPRESSION: Sinus rhythm ABNORMAL T, CONSIDER ISCHEMIA, ANTERIOR LEADS Electronically Signed On 06-19-2025 10:23:20 EDT by Thelma Leiva [facility] ECG 12-LEAD IMPRESSION: Sinus bradycardia Right bundle branch block REPOL ABNRM SUGGESTS ISCHEMIA, DIFFUSE LEADS Electronically Signed On 06-19-2025 10:10:41 EDT by Thelma Leiva [facility] Laboratory - Chemistry and C hemistry - challengeon 06-19-2025 Glucose [Mass/Vol] 172 mg/dL High 70 - 100 mg/dL [facility] Glucose [Mass/Vol] 130 mg/dL High 70 - 100 mg/dL [facility] Glucose [Mass/Vol] 170 mg/dL High 70 - 100 mg/dL [facility] Glucose [Mass/Vol] 127 mg/dL High 70 - 100 mg/dL [facility] Glucose [Mass/Vol] 135 mg/dL High 70 - 100 mg/dL [facility] Base excess Calc (Bld) [Moles/Vol] 1.4 mmol/L -3.0 - 3.0 mmol/L [facility] CO2 (Bld) [Partial pressure] 47.5 mm[Hg] High - PINF [facility] CO2 [Moles/Vol] 28.4 mmol/L High 23.0 - 27.0 mmol/L [facility] HCO3 (Bld) [Moles/Vol] 27 mmol/L High 21.0 - 25.0 mmol/L [facility] Oxygen (Bld) [Partial pressure] 109.4 mm[Hg] High [facility] pH (Bld) 7.372 [pH] 7.350 - 7.450 [facility] Glucose [Mass/Vol] 127 mg/dL High 70 - 100 mg/dL [facility] Base excess Calc (Bld) [Moles/Vol] -2 mmol/L -3.0 - 3.0 mmol/L [facility] CO2 (Bld) [Partial pressure] 54 mm[Hg] High - PINF [facility] CO2 [Moles/Vol] 26.6 mmol/L 23.0 - 27.0 mmol/L [facility] HCO3 (Bld) [Moles/Vol] 24.9 mmol/L 21.0 - 25.0 mmol/L [facility] Oxygen (Bld) [Partial pressure] 122.3 mm[Hg] High [facility] pH (Bld) 7.282 [pH] Low 7.350 - 7.450 [facility] Glucose [Mass/Vol] 127 mg/dL High 70 - 100 mg/dL [facility] Magnesium [Mass/Vol] 2.3 mg/dL 1.6 - 2 .6 mg/dL [facility] Glucose [Mass/Vol] 121 mg/dL High 70 - 100 mg/dL [facility] Glucose [Mass/Vol] 117 mg/dL High 70 - 100 mg/dL [facility] Laboratory - Chemistry and C hemistry - challengeOrdered By: Mer Lee on 06-19-2025 Base excess Calc (Bld) [Moles/Vol] 2 mmol/L -3.0 - 3.0 mmol/L [facility] CO2 (Bld) [Partial pressure] 44.1 mm[Hg] - PINF [facility] CO2 [Moles/Vol] 28.4 mmol/L High 23.0 - 27.0 mmol/L [facility] HCO3 (Bld) [Moles/Vol] 27 mmol/L High 21.0 - 25.0 mmol/L [facility] Oxygen (Bld) [Partial pressure] 147.2 mm[Hg] High [facility] pH (Bld) 7.405 [pH] 7.350 - 7.450 [facility] Laboratory - Chemistry and C hemistry - challengeOrdered By: Estephania White on 06-19-2025 Base excess Calc (Bld) [Moles/Vol] -1.2000 mmol/L -3.0 - 3.0 mmol/L [facility] CO2 (Bld) [Partial pressure] 58.4 mm[Hg] High - PINF [facility] CO2 [Moles/Vol] 27.9 mmol/L High 23.0 - 27.0 mmol/L [facility] HCO3 (Bld) [Moles/Vol] 26.2 mmol/L High 21.0 - 25.0 mmol/L [facility] Oxygen (Bld) [Partial pressure] 112.9 mm[Hg] High [facility] pH (Bld) 7.269 [pH] Low 7.350 - 7.450 [facility] Laboratory - Coagulationon 0 06-19-2025 aPTT Coag (PPP) [Time] 53.7 s High 20.0 - 30.5 s [facility] INR Coag (PPP) [Relative time] 1.1 {INR} 0.9 - 1.1 [facility] PT Coag (Bld) [Time] 11.3 s 9.0 - 1 2.0 s [facility] Laboratory - Hematology and Cell countsOrdered By: Mer Lee on 06-19-2025 Hemoglobin (Bld) [Mass/Vol] 9.9 g/dL 7.0 g/dl [facility] Laboratory - Hematology and Cell countson 06-19-2025 Hemoglobin (Bld) [Mass/Vol] 9 g/dL 7.0 g/dl [facility] Hemoglobin (Bld) [Mass/Vol] 8.8 g/dL 7.0 g/dl [facility] Laboratory - Hematology and Cell countsOrdered By: Estephania White on 06-19-2025 Hemoglobin (Bld) [Mass/Vol] 9.1 g/dL 7.0 g/dl [facility] MAGNESIUMon 06-19-2025 Magnesium [Mass/Vol] 2.3 mg/dL Normal 1.6-2.6 [facility] Comment on above: Result Comment: ROCIO Bhandari COMMENTS:Higher values can be expected in females during menses. Performed By: #### L [id number], LAB15 ####Flight Line Service Attendant: MIGUEL LEAL ([phone])[facility] ([facility] Magnesium [Mass/Vol]on 06-19 Interpretation and review of laboratory results Normal [facility] No Panel Informationon 06-19 Interpretation and review of laboratory results Abnormal [facility] Interpretation and review of laboratory results Abnormal [facility] Interpretation and review of laboratory results Abnormal [facility] P [place] 34 degrees [facility] [place] Interval 162 ms [facility] QRS [place] 29 degrees [facility] QRSD Interval 92 ms [facility] h QT Interval 390 ms [facility] QTC Interval 445 ms [facility] T Wave [place] 29 degrees [facility] CV EPIPHANY [facility] CV [facility] Interpretation and review of laboratory results Abnormal [facility] Amount Of Oxygen 40% [facility] alth Interpretation and review of laboratory results Abnormal [facility] Source Of Oxygen Non-Invasive Ventilator [facility] Interpretation and review of laboratory results Abnormal [facility] Amount Of Oxygen 40% [facility] alth Interpretation and review of laboratory results Abnormal [facility] Source Of Oxygen Non-Invasive Ventilator [facility] Interpretation and review of laboratory results Abnormal [facility] Interpretation and review of laboratory results Abnormal [facility] Interpretation and review of laboratory results Abnormal [facility] Interpretation and review of laboratory results Abnormal [facility] Interpretation and review of laboratory results Abnormal [facility] No Panel InformationOrdered By: Thelma Leiva on 06-19-2025 P [place] 75 degrees [facility] Work Phone: [place] Interval 205 ms [facility] Work Phone: QRS [place] 73 degrees [facility] Work Phone: QRSD Interval 140 ms [facility]: QT Interval 508 ms [facility] Work Phone: [phone] QTC Interval 497 ms [facility] [employer] Work Phone: T Wave [place] -66 degrees [facility] Work Phone: [phone] [facility] Work Phone: [phone] No Panel InformationOrdered By: Mer Lee on 06-19-2025 Amount Of Oxygen 40 [facility] Interpretation and review of laboratory results Abnormal [facility] Source Of Oxygen Non-Invasive Ventilator [facility] No Panel InformationOrdered By: Estephania White on 06-19-2025 [facility] 40[facility] Interpretation and review of laboratory results Abnormal [facility] Source Of Oxygen Non-Invasive Ventilator [facility] PROTIME AND APTTon aPTT Coag (Bld) [Time] 53.7 s High 20.0-30.5 [facility] Comment on above: Performed By: #### L [id number] ####Flight Line Service Attendant: MIGUEL LEAL ([phone])[facility] Bright[facility])[address] [place] [address] INR Coag (PPP) [Relative time] 1.1 {INR} Normal 0.9-1.1 [facility] Comment on above: Result Comment: [place] mmended Anticoagulant Therapy: SEE BELOW----- INR of 2.0 - 3.0 : - Prophylaxis of Venous Thrombosis (high-risk surgery) - Treatment of Venous Thrombosis - Treatment of Pulmonary Embolism (Includes tissue heart valves, Acute Myocardial Infarction to prevent systemic embolism, Valvular Heart Disease, and Atrial Fibrillation)----- INR of 2.5 - 3.5 : - Mechanical Prosthetic Valves (high risk) - If oral anticoagulant therapy is used to prevent Myocardial Infarction Performed By: #### L [id number] ####Flight Line Service Attendant: MIGUEL LEAL ([phone])[facility] ([facility])[address] [place] [address] PT Coag (PPP) [Time] 11.3 s Normal 9.0-12.0 [facility] Comment on above: Performed By: #### L [id number] ####Flight Line Service Attendant: MIGUEL [phone])[facility] [place] [address] Progress Noteon 06-19-2025 Progress Note Normal [facility] Progress Note Normal [facility] Progress Note Normal [facility] Vital signson 06-19-2025 Heart rate 78 /min bpm [facility] Vital signsOrdered By: Thelma Leiva on 06-19-2025 Heart rate 57 /min bpm [facility] Work Phone: XR CHEST 1 VIEWon 06-19-2025 XR CHEST 1 VIEW Normal [facility] XR Chest Single viewon 06-19 [facility] Radiology Study observation (narrative) [facility] XR Chest Single viewOrdered By: Ladarius Luciano on 06-19-2025 [facility] [employer] Phone: [phone] 06-18-2025 [id number] Normal [facility] ABO and Rh group Confirm Nom (Bld)on 06-18-2025 ABO group Nom (Bld) A [facility] D Ag Ql (RBC) Positive [facility] APTTon 06-18-2025 aPTT Coag (Bld) [Time] 61.2 s High 20.0-30.5 [facility] Comment on above: Result Comment: ROCIO Bhandari COMMENTS:NOTE: The therapeutic time for Heparin anticoagulation, based on Xa activity inhibition, is an APTT of 46-80 seconds. Performed By: #### L [id number] ####Flight Line Service Attendant: MIGUEL LEAL ([phone])[facility] ([facility])[address] [place] [address] aPTT Coag (Bld) [Time] 49.3 s High 20.0-30.5 [facility] Comment on above: Result Comment: ROCIO Bhandari COMMENTS:NOTE: The therapeutic time for Heparin anticoagulation, based on Xa activity inhibition, is an APTT of 46-80 seconds. Performed By: #### L [id number] ####Flight Line Service Attendant: MIGUEL LEAL ([phone])[facility] ([facility])[address] [place] [address] Airwayon 06-18-2025 Naresh Motta CRNA 06/18/2025 12:40 PM Airway Date/Time: 06/18/2025 12:06 PM Reason: scheduled Airway not difficult General Information and Staff Patient location during procedure: Procedural Resident/MERCHANDISE PRESENTATION ASSOCIATE: Naresh Motta CRNA Performed: MERCHANDISE PRESENTATION ASSOCIATE Patient Condition Indications for airway management: airway protection and anesthesia Patient position: sniffing MILS maintained throughout Sedation level: Asleep Final Airway Details Preoxygenated: yes Final airway type: endotracheal airway Successful airway: ETT Cuffed: yes Successful intubation technique: direct laryngoscopy Adjuncts used in placement: intubating stylet and anterior pressure/BURP Endotracheal tube insertion site: oral Blade: Cortes Blade size: #3 ETT size (mm): 7.0 Cormack-Lehane Classification: grade IIb - view of arytenoids or posterior of glottis only Placement verified by: capnometry Measured from: lips ETT to lips (cm): 21 Number of attempts at approach: 1 [facility] Anesthesia Noteon 06-18-2025 Anesthesia Note Normal [facility] Anesthesia Note Normal [facility] Arterial Lineon 06-18-2025 Naresh Motta CRNA 06/18/2025 [...] well with no complications. Staffing Performed: SRNA [facility] BASIC METABOLIC PANELon - Anion gap [Moles/Vol] 8 mmol/L Normal 3-13 [facility] Comment on above: Performed By: #### L AB113, [id number], LAB15 ####Flight Line Service Attendant: MIGUEL LEAL ([phone])[facility] ([facility] Calcium [Mass/Vol] 10.6 mg/dL High 8.8-10.0 [facility] Comment on above: Performed By: #### L AB113, [id number], LAB15 ####Flight Line Service Attendant: MIGUEL LEAL ([phone])[facility] ([facility])[address] [place] [address] Chloride [Moles/Vol] 109 mmol/L High 98-107 [facility] Comment on above: Performed By: #### L AB113, [id number], LAB15 ####Flight Line Service Attendant: MIGUEL LEAL ([phone])[facility] ([facility])[address] [place] [address] CO2 [Moles/Vol] 20 mmol/L Low 23-31 [facility] Comment on above: Performed By: #### L AB113, [id number], LAB15 ####Flight Line Service Attendant: MIGUEL LEAL ([phone])[facility])[address] [place] [address] Creatinine [Mass/Vol] 0.80 mg/dL Normal 0.57-1.11 [facility] Comment on above: Performed By: #### L AB113, [id number], LAB15 ####Flight Line Service Attendant: MIGUEL LEAL ([phone])[facility])[address] [place] [address] GLOMERULAR FILTRATION RATE ML/MIN/1.73 SQ M.PREDICTED 77.4 mL/min/1.73m*2 Normal >60.0 [facility] Comment on above: Result Comment: Calc ulation based on the Chronic Kidney Disease Epidemiology Collaboration (CKD-EPI) equation refit without adjustment for race Performed By: #### L AB113, [id number], LAB15 ####Flight Line Service Attendant: MIGUEL LEAL ([phone])[facility] ([facility])[address] [place] [address] Glucose [Mass/Vol] 115 mg/dL Normal 82-115 [facility] Comment on above: Performed By: #### L AB113, [id number], LAB15 ####Flight Line Service Attendant: MIGUEL LEAL ([phone])[facility])[address] [place] [address] [place] Potassium [Moles/Vol] 4.4 mmol/L Normal 3.5-5.1 [facility] Comment on above: Result Comment: [facility] potassium values may be up to 0.5 mmol/L lower than serum values. Performed By: #### L AB113, [id number], LAB15 ####Flight Line Service Attendant: MIGUEL LEAL ([phone])[facility] ([facility])[address] [place] [address] Sodium [Moles/Vol] 137 mmol/L Normal 136-145 [facility] Comment on above: Performed By: #### L AB113, [id number], LAB15 ####Flight Line Service Attendant: MIGUEL LEAL ([phone])[facility])[address] [place] [address] Urea nitrogen [Mass/Vol] 12 mg/dL Normal 9-23 [facility] Comment on above: Performed By: #### L AB113, [id number], LAB15 ####Flight Line Service Attendant: MIGUEL LEAL ([phone])[facility] ([facility])[address] [place] [address] BLOOD GAS ARTERIALon 025 AMOUNT OF OXYGEN 40% Normal [facility] Comment on above: Order Comment: 30 mi n after vent changes Performed By: #### L AB76 ####Flight Line Service Attendant: MIGUEL LEAL ([phone])[facility])[address] [place] [address] Base excess Calc (Bld) [Moles/Vol] -3.1000 mmol/L Low -3.0-3.0 [facility] Comment on above: Order Comment: 30 mi n after vent changes Performed By: #### L AB76 ####Flight Line Service Attendant: MIGUEL LEAL ([phone])[facility])[address] [place] [address] [place] CO2 [Moles/Vol] 24.9 mmol/L Normal 23.0-27.0 [facility] Comment on above: Order Comment: 30 mi n after vent changes Performed By: #### L AB76 ####Flight Line Service Attendant: MIGUEL [phone])[facility] ([facility])[address] [place] [address] HCO3 (Bld) [Moles/Vol] 23.4 mmol/L Normal 21.0-25.0 [facility] Comment on above: Order Comment: 30 mi n after vent changes Performed By: #### L AB76 ####Flight Line Service Attendant: MIGULE LEAL ([phone])[facility] ([facility])[address] [place] [address] Hemoglobin (Bld) [Mass/Vol] 9.2 g/dL Normal Screen only [facility] Comment on above: Order Comment: 30 mi n after vent changes Performed By: #### L AB76 ####Flight Line Service Attendant: MIGUEL LEAL ([phone])[facility] ([facility])[address] [place] [address] OXYGEN SATURATION (%) IN ARTERIAL BLOOD 98.4 % Normal 95.0-100.0 [facility] Comment on above: Order Comment: 30 mi n after vent changes Performed By: #### L AB76 ####Flight Line Service Attendant: MIGUEL LEAL ([phone])[facility] ([facility])[address] [place] [address] PCO2 ARTERIAL 48.6 mm Hg High >35.0-<45.0 [facility] Comment on above: Order Comment: 30 mi n after vent changes Performed By: #### L AB76 ####Flight Line Service Attendant: MIGUEL LEAL ([phone])[facility] ([facility])[address] [place] [address] PH ARTERIAL 7.300 Low 7.350-7.450 [facility] Comment on above: Order Comment: 30 mi n after vent changes Performed By: #### L AB76 ####Flight Line Service Attendant: MIGUEL LEAL ([phone])[facility] ([facility])[address] [place] [address] PO2 ARTERIAL 159.7 mm Hg High 80.0-100.0 [facility] Comment on above: Order Comment: 30 mi n after vent changes Performed By: #### L AB76 ####Flight Line Service Attendant: MIGUEL LELA ([phone])[facility] ([facility])[address] [place] [address] SOURCE OF OXYGEN Ventilator [facility] Comment on above: Order Comment: 30 mi n after vent changes Performed By: #### L AB76 ####Flight Line Service Attendant: MIGUEL LEAL ([phone])[facility] ([facility])[address] [place] [address] AMOUNT OF OXYGEN 100 Normal [facility] Comment on above: Performed By: #### L AB76 ####Flight Line Service Attendant: MIGUEL LEAL ([phone])[facility] ([facility])[address] [place] [address] Base excess Calc (Bld) [Moles/Vol] -1.5000 mmol/L Normal -3.0-3.0 [facility] Comment on above: Performed By: #### L AB76 ####Flight Line Service Attendant: MIGUEL LEAL ([phone])[facility] ([facility])[address] [place] [address] CO2 [Moles/Vol] 24.4 mmol/L Normal 23.0-27.0 [facility] Comment on above: Performed By: #### L AB76 ####Flight Line Service Attendant: MIGUEL LEAL ([phone])[facility] ([facility])[address] [place] [address] HCO3 (Bld) [Moles/Vol] 23.2 mmol/L Normal 21.0-25.0 [facility] Comment on above: Performed By: #### L AB76 ####Flight Line Service Attendant: MIGUEL LEAL ([phone])[facility] ([facility])[address] [place] [address] Hemoglobin (Bld) [Mass/Vol] 8.2 g/dL Normal Screen only [facility] Comment on above: Performed By: #### L AB76 ####Flight Line Service Attendant: MIGUEL LEAL ([phone])[facility] ([facility])[address] [place] [address] OXYGEN SATURATION (%) IN ARTERIAL BLOOD 99.8 % Normal 95.0-100.0 [facility] Comment on above: Performed By: #### L AB76 ####Flight Line Service Attendant: MIGUEL LEAL ([phone])[facility] ([facility])[address] [place] [address] PCO2 ARTERIAL 38.9 mm Hg Normal >35.0-<45.0 [facility] Comment on above: Performed By: #### L AB76 ####Flight Line Service Attendant: MIGUEL LEAL ([phone])[facility] ([facility])[address] [place] [address] PH ARTERIAL 7.394 Normal 7.350-7.450 [facility] Comment on above: Performed By: #### L AB76 ####Flight Line Service Attendant: MIGUEL LEAL ([phone])[facility] ([facility])[address] [place] [address] PO2 ARTERIAL 359.3 mm Hg High 80.0-100.0 [facility] Comment on above: Performed By: #### L AB76 ####Flight Line Service Attendant: MIGUEL LEAL ([phone])[facility] ([facility])[address] [place] [address] SOURCE OF OXYGEN Ventilator Normal [facility] Comment on above: Performed By: #### L AB76 ####Flight Line Service Attendant: MIGUEL LEAL ([phone])[facility] [place] [address] BLOOD TYPE AND SCREEN GELon 06-18-2025 ABO GROUPING A Normal [facility] Comment on above: Order Comment: Speci men is valid for 3 days - nurse to verify valid specimen Performed By: #### L [id number] ####Flight Line Service Attendant: MIGUEL LEAL ([phone])[facility] ([facility])[address] [place] [address] RH TYPE IN BLOOD Positive Normal [facility] Comment on above: Order Comment: Speci men is valid for 3 days - nurse to verify valid specimen Performed By: #### L [id number] ####Flight Line Service Attendant: MIGUEL [phone])[facility] ([facility])[address] Basic metabolic 1998 panelon 06-18-2025 Anion gap [Moles/Vol] 8 mmol/L 3 - 13 mmol/L [facility] Calcium [Mass/Vol] 10.6 mg/dL High 8.8 - 10. 0 mg/dL [facility] Chloride [Moles/Vol] 109 mmol/L High 98 - 10 7 mmol/L [facility] CO2 [Moles/Vol] 20 mmol/L Low 23 - 31 mmol/L [facility] Creatinine [Mass/Vol] 0.8 mg/dL 0.57 - 1.11 mg/dL [facility] GFR/1.73 sq M.predicted (S/P/Bld) [Vol rate/Area] 77.4 mL/min - PINF [facility] Glucose [Mass/Vol] 115 mg/dL 82 - 115 mg/dL [facility] Potassium [Moles/Vol] 4.4 mmol/L 3.5 - 5.1 mmol/L [facility] Sodium [Moles/Vol] 137 mmol/L 136 - 145 mmol/L [facility] Urea nitrogen [Mass/Vol] 12 mg/dL 9 - 23 mg/dL [facility] Blood type and Crossmatch pa nav (Bld)on 06-18-2025 ABO group Nom (Bld) A [facility] Blood group antibody screen GEL Ql Negative [facility] D Ag Ql (RBC) Positive [facility] CALCIUM, IONIZEDon 5 CALCIUM IONIZED 6.00 mg/dL High 4.30-5.20 [facility] Comment on above: Performed By: #### L AB54 ####Flight Line Service Attendant: MIGUEL LEAL ([phone])[facility] ([facility])[address] [place] [address] PH, IONIZED CALCIUM 7.41 Normal 7.31-7.46 [facility] Comment on above: Performed By: #### L AB54 ####Flight Line Service Attendant: MIGUEL LEAL ([phone])[facility] ([facility])[address] [place] [address] CALCIUM IONIZED 4.60 mg/dL Normal 4.30-5.20 [facility] Comment on above: Performed By: #### L AB54 ####Flight Line Service Attendant: MIGUEL LEAL ([phone])[address] PH, IONIZED CALCIUM 7.42 Normal 7.31-7.46 [facility] Comment on above: Performed By: #### L AB54 ####Flight Line Service Attendant: MIGUEL LEAL ([phone])[facility])[address] [place] [address] CBC (HEMOGRAM)on 06-18-2025 Erythrocyte distribution width (RBC) [Ratio] 13.6 % Normal 11.5-15.0 [facility] Comment on above: Performed By: #### L AB294 ####Flight Line Service Attendant: MIGUEL LEAL ([phone])[address] Hematocrit (Bld) [Volume fraction] 22.5 % Low 35.0-47.0 [facility] Comment on above: Performed By: #### L AB294 ####Flight Line Service Attendant: MIGUEL LEAL ([phone])[address] Hemoglobin (Bld) [Mass/Vol] 7.3 g/dL Low 11.7-16.0 [facility] Comment on above: Performed By: #### L AB294 ####Flight Line Service Attendant: MIGUEL LEAL ([phone])[address] IPF 6 Normal [facility] Comment on above: Performed By: #### L AB294 ####Flight Line Service Attendant: MIGUEL LEAL ([phone])[address] MCH (RBC) [Entitic mass] 31.5 pg Normal 26.0-34.0 [facility] Comment on above: Performed By: #### L AB294 ####Flight Line Service Attendant: MIGUEL [phone])[facility] ([facility])[address] [place] [address] MCHC 32.4 % Normal 30.5-36.0 [facility] Comment on above: Performed By: #### L AB294 ####Flight Line Service Attendant: MIGUEL LEAL ([phone])[facility] ([facility])[address] [place] [address] MCV (RBC) [Entitic vol] 97.0 fL Normal 77.0-99.0 [facility] Comment on above: Performed By: #### L AB294 ####Flight Line Service Attendant: MIGUEL LEAL ([phone])[facility])[address] [place] [address] Platelet mean volume (Bld) [Entitic vol] 10.9 fL Normal 9.0-12.7 [facility] Comment on above: Performed By: #### L AB294 ####Flight Line Service Attendant: MIGUEL LEAL ([phone])[facility] ([facility])[address] [place] [address] Platelets (Bld) [#/Vol] 99 10*3/uL Low 140-440 [facility] Comment on above: Performed By: #### L [id number] ####Flight Line Service Attendant: MIGUEL LEAL ([phone])[facility])[address] [place] [address] RBC (Bld) [#/Vol] 2.32 10*6/uL Low 3.80-5.20 [facility] Comment on above: Performed By: #### L AB294 ####Flight Line Service Attendant: MIGUEL LEAL ([phone])[facility] ([facility])[address] [place] [address] WBC (Bld) [#/Vol] 6.5 10*3/uL Normal 3.6-10.7 [facility] Comment on above: Performed By: #### L AB294 ####Flight Line Service Attendant: MIGUEL LEAL ([phone])[facility] ([facility])[address] [place] [address] Erythrocyte distribution width (RBC) [Ratio] 13.3 % Normal 11.5-15.0 [facility] Comment on above: Performed By: #### L AB294 ####Flight Line Service Attendant: MIGUEL LEAL ([phone])[facility])[address] [place] [address] Hematocrit (Bld) [Volume fraction] 34.6 % Low 35.0-47.0 [facility] Comment on above: Performed By: #### L AB294 ####Flight Line Service Attendant: MIGUEL LEAL ([phone])[facility])[address] [place] [address] Hemoglobin (Bld) [Mass/Vol] 11.5 g/dL Low 11.7-16.0 [facility] Comment on above: Performed By: #### L AB294 ####Flight Line Service Attendant: MIGUEL LEAL ([phone])[facility])[address] [place] [address] MCH (RBC) [Entitic mass] 31.3 pg Normal 26.0-34.0 [facility] Comment on above: Performed By: #### L AB294 ####Flight Line Service Attendant: MIGUEL LEAL ([phone])[facility])[address] [place] [address] MCHC 33.2 % Normal 30.5-36.0 [facility] Comment on above: Performed By: #### L AB294 ####Flight Line Service Attendant: MIGUEL LEAL ([phone])[facility])[address] [place] [address] MCV (RBC) [Entitic vol] 94.3 fL Normal 77.0-99.0 [facility] Comment on above: Performed By: #### L AB294 ####Flight Line Service Attendant: MIGUEL LEAL ([phone])[facility])[address] [place] [address] Platelet mean volume (Bld) [Entitic vol] 11.1 fL Normal 9.0-12.7 [facility] Comment on above: Performed By: #### L AB294 ####Flight Line Service Attendant: MIGUEL LEAL ([phone])[facility])[address] [place] [address] Platelets (Bld) [#/Vol] 190 10*3/uL Normal 140-440 [facility] Comment on above: Performed By: #### L AB294 ####Flight Line Service Attendant: MIGUEL LEAL ([phone])[facility] ([facility])[address] [place] [address] RBC (Bld) [#/Vol] 3.67 10*6/uL Low 3.80-5.20 [facility] Comment on above: Performed By: #### L AB294 ####Flight Line Service Attendant: MIGUEL LEAL ([phone])[facility])[address] [place] [address] WBC (Bld) [#/Vol] 5.9 10*3/uL Normal 3.6-10.7 [facility] Comment on above: Performed By: #### L AB294 ####Flight Line Service Attendant: MIGUEL LEAL ([phone])[facility])[address] [place] [address] CBC panel Auto (Bld)on 06-18 Erythrocyte distribution width (RBC) [Ratio] 13.6 % 11.5 - 15.0 % [facility] Hematocrit (Bld) [Volume fraction] 22.5 % Low 35.0 - 47.0 % [facility] Hemoglobin (Bld) [Mass/Vol] 7.3 g/dL Low 11.7 - 16.0 g/dL [facility] Interpretation and review of laboratory results Abnormal [facility] IPF 6 [facility] MCH (RBC) [Entitic mass] 31.5 pg 26.0 - 34.0 pg [facility] MCHC (RBC) [Mass/Vol] 32.4 % 30.5 - 36.0 % [facility] MCV (RBC) [Entitic vol] 97 fL 77.0 - 99.0 fL [facility] Platelet mean volume (Bld) [Entitic vol] 10.9 fL 9.0 - 12.7 fL [facility] Platelets (Bld) [#/Vol] 99 10*3/uL Low 140 - 440 10*3/uL [facility] RBC (Bld) [#/Vol] 2.32 10*6/uL Low 3.80 - 5.2 0 10*6/uL [facility] WBC (Bld) [#/Vol] 6.5 10*3/uL 3.6 - 10.7 10*3/uL [facility] Erythrocyte distribution width (RBC) [Ratio] 13.3 % 11.5 - 15.0 % [facility] Hematocrit (Bld) [Volume fraction] 34.6 % Low 35.0 - 47.0 % [facility] Hemoglobin (Bld) [Mass/Vol] 11.5 g/dL Low 11.7 - 16.0 g/dL [facility] Interpretation and review of laboratory results Abnormal [facility] MCH (RBC) [Entitic mass] 31.3 pg 26.0 - 34.0 pg [facility] MCHC (RBC) [Mass/Vol] 33.2 % 30.5 - 36.0 % [facility] MCV (RBC) [Entitic vol] 94.3 fL 77.0 - 99.0 fL [facility] Platelet mean volume (Bld) [Entitic vol] 11.1 fL 9.0 - 12.7 fL [facility] Platelets (Bld) [#/Vol] 190 10*3/uL 140 - 440 10*3/uL [facility] RBC (Bld) [#/Vol] 3.67 10*6/uL Low 3.80 - 5.2 0 10*6/uL [facility] WBC (Bld) [#/Vol] 5.9 10*3/uL 3.6 - 10.7 10*3/uL [facility] COMPREHENSIVE METABOLIC PANE [place] 06-18-2025 Albumin [Mass/Vol] 3.3 g/dL Low 3.4-4.8 [facility] Comment on above: Performed By: #### L [id number], LAB17 ####Flight Line Service Attendant: MIGUEL LEAL ([phone])[facility] ([address] ALP [Catalytic activity/Vol] 52 U/L Normal 40-150 [facility] Comment on above: Performed By: #### L AB103, LAB17 ####Flight Line Service Attendant: MIGUEL LEAL ([phone])[facility])[address] [place] [address] ALT [Catalytic activity/Vol] 7 U/L Normal <30 [facility] Comment on above: Performed By: #### L AB103, LAB17 ####Flight Line Service Attendant: MIGUEL LEAL ([phone])[facility])[address] [place] [address] Anion gap [Moles/Vol] 10 mmol/L Normal 3-13 [facility] Comment on above: Performed By: #### L AB103, LAB17 ####Flight Line Service Attendant: MIGUEL LEAL ([phone])[facility])[address] [place] [address] AST [Catalytic activity/Vol] 31 U/L Normal <34 [facility] Comment on above: Performed By: #### L AB103, LAB17 ####Flight Line Service Attendant: MIGUEL LEAL ([phone])[facility] ([facility])[address] [place] [address] Bilirubin [Mass/Vol] 0.3 mg/dL Normal <1.2 [facility] Comment on above: Performed By: #### L AB103, LAB17 ####Flight Line Service Attendant: MIGUEL LEAL ([phone])[facility])[address] [place] [address] Calcium [Mass/Vol] 8.9 mg/dL Normal 8.8-10.0 [facility] Comment on above: Performed By: #### L AB103, LAB17 ####Flight Line Service Attendant: MIGUEL LEAL ([phone])[facility])[address] [place] [address] Chloride [Moles/Vol] 102 mmol/L Normal 98-107 [facility] Comment on above: Performed By: #### L AB103, LAB17 ####Flight Line Service Attendant: MIGUEL LEAL ([phone])[facility] [place] [address] CO2 [Moles/Vol] 21 mmol/L Low 23-31 [facility] Comment on above: Performed By: #### L AB103, LAB17 ####Flight Line Service Attendant: MIGUEL LEAL ([phone])[facility])[address] [place] [address] Creatinine [Mass/Vol] 0.71 mg/dL Normal 0.57-1.11 [facility] Comment on above: Performed By: #### L AB103, LAB17 ####Flight Line Service Attendant: MIGUEL LEAL ([phone])[facility])[address] [place] [address] GLOMERULAR FILTRATION RATE ML/MIN/1.73 SQ M.PREDICTED 89.4 mL/min/1.73m*2 Normal >60.0 [facility] Comment on above: Result Comment: Calc ulation based on the Chronic Kidney Disease Epidemiology Collaboration (CKD-EPI) equation refit without adjustment for race Performed By: #### L AB103, LAB17 ####Flight Line Service Attendant: MIGUEL LEAL ([phone])[facility] ([facility])[address] [place] [address] Glucose [Mass/Vol] 100 mg/dL Normal 82-115 [facility] Comment on above: Performed By: #### L AB103, LAB17 ####Flight Line Service Attendant: MIGUEL LEAL ([phone])[facility])[address] [place] [address] [place] Potassium [Moles/Vol] 4.6 mmol/L Normal 3.5-5.1 [facility] Comment on above: Result Comment: [facility] potassium values may be up to 0.5 mmol/L lower than serum values. Performed By: #### L AB103, LAB17 ####Flight Line Service Attendant: MIGUEL LEAL ([phone])[facility])[address] [place] [address] Protein [Mass/Vol] 6.0 g/dL Low 6.4-8.3 [facility] Comment on above: Performed By: #### L AB103, LAB17 ####Flight Line Service Attendant: MIGUEL LEAL ([phone])[address] Sodium [Moles/Vol] 133 mmol/L Low 136-145 [facility] Comment on above: Performed By: #### L AB103, LAB17 ####Flight Line Service Attendant: MIGUEL LEAL ([phone])[address] Urea nitrogen [Mass/Vol] 18 mg/dL Normal 9-23 [facility] Comment on above: Performed By: #### L AB103, LAB17 ####Flight Line Service Attendant: MIGUEL LEAL ([phone])[address] Calcium.ionized [Moles/Vol]O rdered By: Maria Guadalupe Aranda on 06-18-2025 Calcium.ionized (Bld) [Moles/Vol] 6 mg/dL High 4.30 - 5.20 mg/dL [facility] Interpretation and review of laboratory results Abnormal [facility] PH, IONIZED CALCIUM 7.41 7.31 - 7.46 [facility] Calcium.ionized [Moles/Vol]o n 06-18-2025 Calcium.ionized (Bld) [Moles/Vol] 4.6 mg/dL 4.30 - 5.20 mg/dL [facility] Interpretation and review of laboratory results Normal [facility] PH, IONIZED CALCIUM 7.42 7.31 - 7.46 [facility] Venous Lineon 2024 Naresh Motta CRNA [...] Staffing Performed: anesthesiologist Anesthesiologist: Naresh Lim MD [facility] Comprehensive metabolic 1998 panelon 06-18-2025 Albumin [Mass/Vol] 3.3 g/dL Low 3.4 - 4.8 g/dL [facility] ALP [Catalytic activity/Vol] 52 U/L 40 - 150 U/L [facility] ALT [Catalytic activity/Vol] 7 U/L [facility] U/L [facility] Anion gap [Moles/Vol] 10 mmol/L 3 - 13 mmol/L [facility] AST [Catalytic activity/Vol] 31 U/L NINF - 34 U/L [facility] Bilirubin [Mass/Vol] 0.3 mg/dL NINF - 1.2 mg/dL [facility] Calcium [Mass/Vol] 8.9 mg/dL 8.8 - 10. 0 mg/dL [facility] Chloride [Moles/Vol] 102 mmol/L 98 - 10 7 mmol/L [facility] CO2 [Moles/Vol] 21 mmol/L Low 23 - 31 mmol/L [facility] Creatinine [Mass/Vol] 0.71 mg/dL 0.57 - 1.11 mg/dL [facility] GFR/1.73 sq M.predicted (S/P/Bld) [Vol rate/Area] 89.4 mL/min - PINF [facility] Glucose [Mass/Vol] 100 mg/dL 82 - 115 mg/dL [facility] Interpretation and review of laboratory results Abnormal [facility] Potassium [Moles/Vol] 4.6 mmol/L 3.5 - 5.1 mmol/L [facility] Protein [Mass/Vol] 6 g/dL Low 6.4 - 8.3 g/dL [facility] Sodium [Moles/Vol] 133 mmol/L Low 136 - 145 mmol/L [facility] Urea nitrogen [Mass/Vol] 18 mg/dL 9 - 23 mg/dL [facility] Consulton 06-18-2025 Consult Normal [facility] ECG 12-LEADon 06-18-2025 ECG 12-LEAD Normal [facility] ECG 12-LEAD Normal [facility] ECG 12-LEAD Normal [facility] FIBRINOGENon 06-18-2025 FIBRINOGEN 169 mg/dL Low 200-400 [facility] Comment on above: Performed By: #### L [id number] ####Flight Line Service Attendant: MIGUEL LEAL ([phone])[facility] ([facility])[address] [place] [address] Fibrinogen Coag (PPP) [Mass/ Vol]Ordered By: Kylie Hui on 06-18-2025 Interpretation and review of laboratory results Abnormal [facility] HEMOGLOBIN AND HEMATOCRIT, B LOODon 06-18-2025 Hematocrit (Bld) [Volume fraction] 26.5 % Low 35.0-47.0 [facility] Comment on above: Order Comment: Recom mend 1 hour post transfusion Performed By: #### L [id number] ####Flight Line Service Attendant: MIGUEL LEAL ([phone])[facility] ([facility])[address] [place] [address] Hemoglobin (Bld) [Mass/Vol] 8.8 g/dL Low 11.7-16.0 [facility] Comment on above: Order Comment: Recom mend 1 hour post transfusion Performed By: #### L [id number] ####Flight Line Service Attendant: MIGUEL LEAL ([phone])[facility] ([facility])[address] HIGH SENSITIVITY TROPONIN, S ERIAL BASELINEon 06-18-2025 TROPONIN HS SERIAL BASELINE 153 ng/L High <=14 [facility] Comment on above: Result Comment: In i ndividuals presenting with symptoms > 2h, a baseline troponin <= 5 ng/L suggests acutecardiac injury is unlikely and further serial testing is generally not indicated. Performed By: #### L [id number] ####Flight Line Service Attendant: MIGUEL LEAL ([phone])[facility] ([facility])[address] [place] [address] HIGH SENSITIVITY TROPONIN, S ERIAL, SECOND TESTon 06-18-2025 2H TROPONIN HS (SERIAL 2ND TROPONIN) 176 ng/L High <=14 [facility] Comment on above: Result Comment: Risi ng or falling troponin delta greater than 15 ng/L as compared to baseline value issignificant for acute cardiac injury. Performed By: #### L [id number] ####Flight Line Service Attendant: MIGUEL LEAL ([phone])[facility] ([facility])[address] [place] [address] Hemoglobin (Bld) [Mass/Vol]o n 06-18-2025 Hematocrit (Bld) [Volume fraction] 26.5 % Low 35.0 - 47.0 % [facility] Interpretation and review of laboratory results Abnormal [facility] Laboratory - Chemistry and C hemistry - challengeon 06-18-2025 Glucose [Mass/Vol] 115 mg/dL High 70 - 100 mg/dL [facility] Glucose [Mass/Vol] 116 mg/dL High 70 - 100 mg/dL [facility] Glucose [Mass/Vol] 123 mg/dL High 70 - 100 mg/dL [facility] Glucose [Mass/Vol] 149 mg/dL High 70 - 100 mg/dL [facility] Base excess Calc (Bld) [Moles/Vol] -3.1000 mmol/L Low -3.0 - 3.0 mmol/L [facility] CO2 (Bld) [Partial pressure] 48.6 mm[Hg] High - PINF [facility] CO2 [Moles/Vol] 24.9 mmol/L 23.0 - 27.0 mmol/L [facility] HCO3 (Bld) [Moles/Vol] 23.4 mmol/L 21.0 - 25.0 mmol/L [facility] Oxygen (Bld) [Partial pressure] 159.7 mm[Hg] High [facility] pH (Bld) 7.3 [pH] Low 7.350 - 7.450 [facility] Glucose [Mass/Vol] 160 mg/dL High 70 - 100 mg/dL [facility] Glucose [Mass/Vol] 158 mg/dL High 70 - 100 mg/dL [facility] Glucose [Mass/Vol] 110 mg/dL High 70 - 100 mg/dL [facility] Magnesium [Mass/Vol] 5.2 mg/dL High 1.6 - 2 .6 mg/dL [facility] Magnesium [Mass/Vol] 2.1 mg/dL 1.6 - 2 .6 mg/dL [facility] - Chemistry and C hemistry - challengeOrdered By: Acacia Schmitt on 06-18-2025 Base excess Calc (Bld) [Moles/Vol] -1.5000 mmol/L -3.0 - 3.0 mmol/L [facility] CO2 (Bld) [Partial pressure] 38.9 mm[Hg] - PINF [facility] CO2 [Moles/Vol] 24.4 mmol/L 23.0 - 27.0 mmol/L [facility] HCO3 (Bld) [Moles/Vol] 23.2 mmol/L 21.0 - 25.0 mmol/L [facility] Oxygen (Bld) [Partial pressure] 359.3 mm[Hg] High [facility] pH (Bld) 7.394 [pH] 7.350 - 7.450 [facility] - CoagulationOrde red By: Kylie Hui on 06-18-2025 Fibrinogen Coag (PPP) [Mass/Vol] 169 mg/dL Low 200 - 400 mg/dL [facility] - Coagulationon 0 06-18-2025 aPTT Coag (PPP) [Time] 30.7 s High 20.0 - 30.5 s [facility] INR Coag (PPP) [Relative time] 1.4 {INR} High 0.9 - 1.1 [facility] PT Coag (Bld) [Time] 14.5 s High 9.0 - 1 2.0 s [facility] - Hematology and Cell countson 06-18-2025 Hemoglobin (Bld) [Mass/Vol] 8.8 g/dL Low 11.7 - 16.0 g/dL [facility] Hemoglobin (Bld) [Mass/Vol] 9.2 g/dL 7.0 g/dl [facility] Laboratory - Hematology and Cell countsOrdered By: Acacia Schmitt on 06-18-2025 Hemoglobin (Bld) [Mass/Vol] 8.2 g/dL 7.0 g/dl [facility] MAGNESIUMon 06-18-2025 Magnesium [Mass/Vol] 5.2 mg/dL High 1.6-2.6 [facility] Comment on above: Result Comment: ROCIO R COMMENTS:Higher values can be expected in females during menses. Performed By: #### L [id number], [id number], [id number] ####Flight Line Service Attendant: MIGUEL LEAL ([phone])[address] Magnesium [Mass/Vol] 2.1 mg/dL Normal 1.6-2.6 [facility] Comment on above: Result Comment: ROCIO Bhandari COMMENTS:Higher values can be expected in females during menses. Performed By: #### L [id number], LAB17 ####Flight Line Service Attendant: MIGUEL LEAL ([phone])[facility])[address] [place] [address] Magnesium [Mass/Vol]on 06-18 [facility] Interpretation and review of laboratory results Normal [facility] No Panel Informationon 06-18 Interpretation and review of laboratory results Abnormal [facility] Interpretation and review of laboratory results Abnormal [facility] Interpretation and review of laboratory results Abnormal [facility] Interpretation and review of laboratory results Abnormal [facility] Amount Of Oxygen 40% [facility] alth Interpretation and review of laboratory results Abnormal [facility] Source Of Oxygen Ventilator [facility] alth [facility] Interpretation and review of laboratory results Abnormal [facility] Interpretation and review of laboratory results Abnormal [facility] Blood Expiration Date [id number] S [facility] Crossmatch interpretation COMP [facility] Dispense Status Trans[facility]used [facility] Product Blood Type 6200 [facility] PRODUCT CODE [id number] [facility] ABO A [facility] Unit Number [id number] [facility] Unit RH Positive [facility] Volume 300 mL [facility] P [place] 47 degrees [facility] NH Interval 160 ms [facility] QRS [place] 26 degrees [facility] QRSD Interval 93 ms [facility] QT Interval 401 ms [facility] QTC Interval 420 ms [facility] T Wave [place] 57 degrees [facility] CV EPIPHANY [facility] Interpretation and review of laboratory results Abnormal [facility] Interpretation and review of laboratory results Abnormal [facility] Health Interpretation and review of laboratory results Abnormal [facility] Health P [place] 76 degrees [facility] NH Interval 155 ms [facility] QRS [place] 131 degrees [facility] QRSD Interval [facility] Interval 363 ms [facility] QTC Interval 469 ms [facility] T Wave [place] 23 degrees [facility] CV EPIPHANY [facility] 2h Troponin HS (Serial 2nd Troponin) 176 ng/L High NINF - 14 ng/L [facility] Interpretation and review of laboratory results Abnormal [facility] Interpretation and review of laboratory results Abnormal [facility] Troponin HS Serial Baseline 153 ng/L High NINF - 14 ng/L [facility] No Panel InformationOrdered By: Acacia Schmitt on 06-18-2025 Amount Of Oxygen 100 [facility] alth Interpretation and review of laboratory results Abnormal [facility] Source Of Oxygen Ventilator [facility] alth [facility] No Panel InformationOrdered By: Leopoldo Anaya on 06-18-2025 P [place] 68 degrees [facility] Work Phone: [place] Interval 187 ms [facility] Work Phone: QRS [place] 63 degrees [facility] Work Phone: QRSD Interval 100 ms [facility] Work Phone: QT Interval 400 ms [facility] Work Phone: QTC Interval 426 ms [facility] Work Phone: T Wave [place] -85 degrees [facility] Work Phone: [facility] Work Phone: Op Noteon 06-18-2025 Op Note Normal [facility] PHOSPHORUSon 06-18-2025 Phosphate [Mass/Vol] 3.3 mg/dL Normal 2.3-4.7 [facility] Comment on above: Performed By: #### L [id number], [id number], [id number] ####Flight Line Service Attendant: MIGUEL LEAL ([phone])[facility])[address] [place] [address] PROTIME AND APTTon aPTT Coag (Bld) [Time] 30.7 s High 20.0-30.5 [facility] Comment on above: Performed By: #### L [id number], [id number] ####Flight Line Service Attendant: MIGUEL LEAL ([phone])[address] INR Coag (PPP) [Relative time] 1.4 {INR} High 0.9-1.1 [facility] Comment on above: Result Comment: [place] mmended Anticoagulant Therapy: SEE BELOW----- INR of 2.0 - 3.0 : - Prophylaxis of Venous Thrombosis (high-risk surgery) - Treatment of Venous Thrombosis - Treatment of Pulmonary Embolism (Includes tissue heart valves, Acute Myocardial Infarction to prevent systemic embolism, Valvular Heart Disease, and Atrial Fibrillation)----- INR of 2.5 - 3.5 : - Mechanical Prosthetic Valves (high risk) - If oral anticoagulant therapy is used to prevent Myocardial Infarction Performed By: #### L [id number], [id number] ####Flight Line Service Attendant: MIGUEL LEAL ([phone])[facility])[address] [place] [address] PT Coag (PPP) [Time] 14.5 s High 9.0-12.0 [facility] Comment on above: Performed By: #### L [id number], [id number] ####Flight Line Service Attendant: MIGUEL LEAL ([phone])[facility])[address] [place] [address] [facility] Phosphate [Moles/Vol]on 05-22 Interpretation and review of laboratory results Normal [facility] Phosphate [Mass/Vol] 3.3 mg/dL 2.3 - 4 .7 mg/dL [facility] Progress Noteon 06-18-2025 Progress Note Pt extubated and transition to NIV 12/6 via Vent 980 per MD order. No adverse reactions noted and will continue to monitor Normal [facility] Progress Note Normal [facility] Progress Note Normal [facility] Vital signson 06-18-2025 Heart rate 66 /min bpm [facility] Heart rate 100 /min bpm [facility] Vital signsOrdered By: Torrey Anaya on 06-18-2025 Heart rate 68 /min bpm [facility] Work Phone: XR CHEST 1 VIEWon 06-18-2025 XR CHEST 1 VIEW Normal [facility] XR CHEST 1 VIEW Normal [facility] XR CHEST 1 VIEW Normal [facility] XR Chest Single viewon 06-18 [facility]Y [facility] Radiology Study observation (narrative) [facility] RADIOLOGY [facility] RADIOLOGY SYSTEM [facility] Radiology Study observation (narrative) [facility] Radiology Study observation (narrative) [facility] alth XR Chest Single viewOrdered By: Allison Hope on 06-18-2025 [facility] Work Phone: XR Chest Single viewOrdered By: Brandon Roldan on 06-18-2025 [facility] Work Phone: aPTT Coag (Bld) [Time]on aPTT Coag (PPP) [Time] 61.2 s High 20.0 - 30.5 s [facility] Interpretation and review of laboratory results Abnormal [facility] aPTT Coag (PPP) [Time] 49.3 s High 20.0 - 30.5 s [facility] Interpretation and review of laboratory results Abnormal [facility] [id number] 06-17-2025 [id number] Normal [facility] [id number] Normal [facility] APTTon 06-17-2025 aPTT Coag (Bld) [Time] 52.5 s High 20.0-30.5 [facility] Comment on above: Result Comment: ROCIO Bhandari COMMENTS:NOTE: The therapeutic time for Heparin anticoagulation, based on Xa activity inhibition, is an APTT of 46-80 seconds. Performed By: #### L [id number] ####Flight Line Service Attendant: MIGUEL LEAL ([phone])[facility])[address] [place] [address] CALCIUM, IONIZEDon CALCIUM IONIZED 4.30 mg/dL Normal 4.30-5.20 [facility] Comment on above: Performed By: #### L AB54 ####Flight Line Service Attendant: MIGUEL LEAL ([phone])[facility] ([facility])[address] [place] [address] PH, IONIZED CALCIUM 7.37 Normal 7.31-7.46 [facility] Comment on above: Performed By: #### L AB54 ####Flight Line Service Attendant: MIGUEL LEAL ([phone])[facility])[address] [place] [address] CBC (HEMOGRAM)on 06-17-2025 Erythrocyte distribution width (RBC) [Ratio] 13.3 % Normal 11.5-15.0 [facility] Comment on above: Performed By: #### L [id number] ####Flight Line Service Attendant: MIGUEL LEAL ([phone])[facility] ([facility])[address] [place] [address] Hematocrit (Bld) [Volume fraction] 33.3 % Low 35.0-47.0 [facility] Comment on above: Performed By: #### L [id number] ####Flight Line Service Attendant: MIGUEL LEAL ([phone])[facility])[address] [place] [address] Hemoglobin (Bld) [Mass/Vol] 11.0 g/dL Low 11.7-16.0 [facility] Comment on above: Performed By: #### L [id number] ####Flight Line Service Attendant: MIGUEL LEAL ([phone])[facility] ([facility])[address] [place] [address] MCH (RBC) [Entitic mass] 31.3 pg Normal 26.0-34.0 [facility] Comment on above: Performed By: #### L AB294 ####Flight Line Service Attendant: MIGUEL LEAL ([phone])[facility])[address] [place] [address] MCHC 33.0 % Normal 30.5-36.0 [facility] Comment on above: Performed By: #### L AB294 ####Flight Line Service Attendant: MIGUEL LEAL ([phone])[facility])[address] [place] [address] MCV (RBC) [Entitic vol] 94.6 fL Normal 77.0-99.0 S [facility] Comment on above: Performed By: #### L [id number] ####Flight Line Service Attendant: MIGUEL LEAL ([phone])[facility] ([facility])[address] [place] [address] Platelet mean volume (Bld) [Entitic vol] 10.6 fL Normal 9.0-12.7 [facility] Comment on above: Performed By: #### L [id number] ####Flight Line Service Attendant: MIGUEL LEAL ([phone])[facility])[address] [place] [address] Platelets (Bld) [#/Vol] 183 10*3/uL Normal 140-440 [facility] Comment on above: Performed By: #### L AB294 ####Flight Line Service Attendant: MIGUEL LEAL ([phone])[facility])[address] [place] [address] RBC (Bld) [#/Vol] 3.52 10*6/uL Low 3.80-5.20 [facility] Comment on above: Performed By: #### L AB294 ####Flight Line Service Attendant: MIGUEL LEAL ([phone])[facility] ([facility])[address] [place] [address] WBC (Bld) [#/Vol] 5.9 10*3/uL Normal 3.6-10.7 [facility] Comment on above: Performed By: #### L AB294 ####Flight Line Service Attendant: MIGUEL LEAL ([phone])[facility] ([facility])[address] [place] [address] CBC panel Auto (Bld)on 06-17 Erythrocyte distribution width (RBC) [Ratio] 13.3 % 11.5 - 15.0 % [facility] Hematocrit (Bld) [Volume fraction] 33.3 % Low 35.0 - 47.0 % [facility] Hemoglobin (Bld) [Mass/Vol] 11 g/dL Low 11.7 - 16.0 g/dL [facility] Interpretation and review of laboratory results Abnormal [facility] MCH (RBC) [Entitic mass] 31.3 pg 26.0 - 34.0 pg [facility] MCHC (RBC) [Mass/Vol] 33 % 30.5 - 36.0 % [facility] MCV (RBC) [Entitic vol] 94.6 fL 77.0 - 99.0 fL [facility] Platelet mean volume (Bld) [Entitic vol] 10.6 fL 9.0 - 12.7 fL [facility] Platelets (Bld) [#/Vol] 183 10*3/uL 140 - 440 10*3/uL [facility] RBC (Bld) [#/Vol] 3.52 10*6/uL Low 3.80 - 5.2 0 10*6/uL [facility] WBC (Bld) [#/Vol] 5.9 10*3/uL 3.6 - 10.7 10*3/uL [facility] COMPREHENSIVE METABOLIC PANE [place] 06-17-2025 Albumin [Mass/Vol] 3.1 g/dL Low 3.4-4.8 [facility] Comment on above: Performed By: #### L AB103, LAB17 ####Flight Line Service Attendant: MIGUEL LEAL ([phone])[facility])[address] [place] [address] ALP [Catalytic activity/Vol] 44 U/L Normal 40-150 [facility] Comment on above: Performed By: #### L AB103, LAB17 ####Flight Line Service Attendant: MIGUEL LEAL ([phone])[facility])[address] [place] [address] ALT [Catalytic activity/Vol] U/L Normal <30 [facility] Comment on above: Performed By: #### L AB103, LAB17 ####Flight Line Service Attendant: MIGUEL LEAL ([phone])[facility] ([facility])[address] [place] [address] Anion gap [Moles/Vol] 7 mmol/L Normal 3-13 [facility] Comment on above: Performed By: #### L 103, LAB17 ####Flight Line Service Attendant: MIGUEL LEAL ([phone])[facility])[address] [place] [address] AST [Catalytic activity/Vol] 28 U/L Normal <34 [facility] Comment on above: Performed By: #### L AB103, LAB17 ####Flight Line Service Attendant: MIGUEL LEAL ([phone])[facility] ([facility])[address] [place] [address] Bilirubin [Mass/Vol] 0.3 mg/dL Normal <1.2 [facility] Comment on above: Performed By: #### L AB103, LAB17 ####Flight Line Service Attendant: MIGUEL LEAL ([phone])[facility])[address] [place] [address] Calcium [Mass/Vol] 8.0 mg/dL Low 8.8-10.0 [facility] Comment on above: Performed By: #### L AB103, LAB17 ####Flight Line Service Attendant: MIGUEL LEAL ([phone])[facility])[address] [place] [address] Chloride [Moles/Vol] 103 mmol/L Normal 98-107 [facility] Comment on above: Performed By: #### L AB103, LAB17 ####Flight Line Service Attendant: MIGUEL LEAL ([phone])[facility] ([facility])[address] [place] [address] [place] CO2 [Moles/Vol] 25 mmol/L Normal 23-31 [facility] Comment on above: Performed By: #### L AB103, LAB17 ####Flight Line Service Attendant: MIGUEL LEAL ([phone])[facility] ([facility])[address] [place] [address] Creatinine [Mass/Vol] 0.72 mg/dL Normal 0.57-1.11 [facility] Comment on above: Performed By: #### L AB103, LAB17 ####Flight Line Service Attendant: MIGUEL LEAL ([phone])[facility])[address] [place] [address] GLOMERULAR FILTRATION RATE ML/MIN/1.73 SQ M.PREDICTED 87.9 mL/min/1.73m*2 Normal >60.0 [facility] Comment on above: Result Comment: Calc ulation based on the Chronic Kidney Disease Epidemiology Collaboration (CKD-EPI) equation refit without adjustment for race Performed By: #### L AB103, LAB17 ####Flight Line Service Attendant: MIGUEL LEAL ([phone])[facility] ([facility])[address] [place] [address] Glucose [Mass/Vol] 93 mg/dL Normal 82-115 [facility] Comment on above: Performed By: #### L AB103, LAB17 ####Flight Line Service Attendant: MIGUEL LEAL ([phone])[facility])[address] [place] [address] Potassium [Moles/Vol] 4.1 mmol/L Normal 3.5-5.1 [facility] Comment on above: Result Comment: [facility] potassium values may be up to 0.5 mmol/L lower than serum values. Performed By: #### L AB103, LAB17 ####Flight Line Service Attendant: MIGUEL LEAL ([phone])[facility])[address] [place] [address] Protein [Mass/Vol] 5.7 g/dL Low 6.4-8.3 [facility] Comment on above: Performed By: #### L AB103, LAB17 ####Flight Line Service Attendant: MIGUEL LEAL ([phone])[facility])[address] [place] [address] Sodium [Moles/Vol] 135 mmol/L Low 136-145 [facility] Comment on above: Performed By: #### L AB103, LAB17 ####Flight Line Service Attendant: MIGUEL LEAL ([phone])[facility])[address] [place] [address] Urea nitrogen [Mass/Vol] 10 mg/dL Normal 9-23 [facility] Comment on above: Performed By: #### L AB103, LAB17 ####Flight Line Service Attendant: MIGUEL LEAL ([phone])[facility] ([facility])[address] [place] [address] CT CHEST WO IV CONTRASTon CT CHEST WO IV CONTRAST Normal S [facility] CT Chest WO contraston 06-17 [facility] CT Chest WO contrastOrdered By: Foster Rushing on 06-17-2025 [facility] Work Phone: Calcium.ionized [Moles/Vol]o n 06-17-2025 Calcium.ionized (Bld) [Moles/Vol] 4.3 mg/dL 4.30 - 5.20 mg/dL [facility] Interpretation and review of laboratory results Normal [facility] PH, IONIZED CALCIUM 7.37 7.31 - 7.46 [facility] Comprehensive metabolic 1998 panelon 06-17-2025 Albumin [Mass/Vol] 3.1 g/dL Low 3.4 - 4.8 g/dL [facility] ALP [Catalytic activity/Vol] 44 U/L 40 - 150 U/L [facility] ALT [Catalytic activity/Vol] U/L NINF - 30 U/L [facility] Anion gap [Moles/Vol] 7 mmol/L 3 - 13 mmol/L [facility] AST [Catalytic activity/Vol] 28 U/L NINF - 34 U/L [facility] Bilirubin [Mass/Vol] 0.3 mg/dL NINF - 1.2 mg/dL [facility] Calcium [Mass/Vol] 8 mg/dL Low 8.8 - 10. 0 mg/dL [facility] Chloride [Moles/Vol] 103 mmol/L 98 - 10 7 mmol/L [facility] CO2 [Moles/Vol] 25 mmol/L 23 - 31 mmol/L [facility] Creatinine [Mass/Vol] 0.72 mg/dL 0.57 - 1.11 mg/dL [facility] GFR/1.73 sq M.predicted (S/P/Bld) [Vol rate/Area] 87.9 mL/min - PINF [facility] Glucose [Mass/Vol] 93 mg/dL 82 - 115 mg/dL [facility] Interpretation and review of laboratory results Abnormal [facility] Potassium [Moles/Vol] 4.1 mmol/L 3.5 - 5.1 mmol/L [facility] Protein [Mass/Vol] 5.7 g/dL Low 6.4 - 8.3 g/dL [facility] Sodium [Moles/Vol] 135 mmol/L Low 136 - 145 mmol/L [facility] Urea nitrogen [Mass/Vol] 10 mg/dL 9 - 23 mg/dL [facility] Consulton 06-17-2025 Consult Normal [facility] ECG 12-LEADon 06-17-2025 ECG 12-LEAD IMPRESSION: SINUS RHYTHM Low voltage Nonspecific ST-T changes Electronically Signed On 06-17-2025 16:42:04 EDT by Ladarius Peng [facility] Laboratory - Chemistry and C hemistry - challengeon 06-17-2025 Magnesium [Mass/Vol] 2.1 mg/dL 1.6 - 2 .6 mg/dL [facility] MAGNESIUMon 06-17-2025 Magnesium [Mass/Vol] 2.1 mg/dL Normal 1.6-2.6 [facility] Comment on above: Result Comment: ORDE R COMMENTS:Higher values can be expected in females during menses. Performed By: #### L AB103, LAB17 ####Flight Line Service Attendant: MIGUEL LEAL ([phone])[facility] ([address] MRSA BY PCRon 06-17-2025 MRSA BY PCR Normal [facility] Comment on above: Performed By: #### L [id number] ####Flight Line Service Attendant: MIGUEL LEAL ([phone])[facility] ([facility])[address] [place] [address] MRSA DNA VIANEY+probe Ql (Nose) on 06-17-2025 Interpretation and review of laboratory results Normal [facility] [employer] mecA gene Not detected Not Detected [facility] Staphylococcus aureus Not detected Not Detected [facility] Magnesium [Mass/Vol]on 06-17 Interpretation and review of laboratory results Normal [facility] [employer] No Panel InformationOrdered By: Ladarius Peng on 06-17-2025 P [place] 61 degrees [facility] Work Phone: [place] Interval 167 ms [facility] Work Phone: QRS [place] 49 degrees [facility] Work Phone: QRSD Interval 101 ms [facility] Work Phone: QT Interval 436 ms [facility] Work Phone: QTC Interval 470 ms [facility] Work Phone: T Wave [place] 33 degrees [facility] Work Phone: [facility] Work Phone: No Panel Informationon 06-17 CV EPIPHANY [facility] Left GSV at Knee Diam 1.99 mm [facility] Left GSV BK Prox Diam 2.09 mm [facility] Left GSV Junc Diam 7.35 mm [facility] Left GSV Thigh Dist Diam 2.56 mm [facility] Left GSV Thigh Mid Diam 2.42 mm [facility] Left GSV Thigh Prox Diam 3.4 [...] Health Right SSV Prox Diam 2.1 mm [facility] CV CPACS Progress Noteon 06-17-2025 Progress Note Normal [facility] US Carotid arteries - bilate ralOrdered By: Alyssia Schultz on 06-17-2025 Left CCA dist EDV 15.8 cm/s [facility] Work Phone: [phone] Left CCA dist PSV 56.2 cm/s [facility] [...] Left subclavian mid EDV 0 cm[facility]s [facility] Work Phone: Left subclavian mid PSV 94.2 cm/s [facility] Work Phone: Left vertebral EDV 14.2 [...] Phone: Right subclavian mid PSV 120.6 cm/s [facility] [employer] Work Phone: Right vertebral EDV 14.2 cm/s [facility] Work Phone: Right vertebral PSV 38.4 cm/s [facility] Work Phone: US Carotid arteries - bilate ralon 06-17-2025 CV CPACS Vital signsOrdered By: Lm Peng on 06-17-2025 Heart rate 70 /min bpm [facility] [employer] Work Phone: aPTT Coag (Bld) [Time]on aPTT Coag (PPP) [Time] 52.5 s High 20.0 - 30.5 s [facility] Interpretation and review of laboratory results Abnormal [facility] [id number] 06-16-2025 [id number] Normal [facility] APTTon 06-16-2025 aPTT Coag (Bld) [Time] 60.9 s High 20.0-30.5 [facility] Comment on above: Result Comment: ROCIO Bhandari COMMENTS:NOTE: The therapeutic time for Heparin anticoagulation, based on Xa activity inhibition, is an APTT of 46-80 seconds. Performed By: #### L [id number] ####Flight Line Service Attendant: MIGUEL LEAL ([phone])[facility] ([facility])[address] [place] [address] CALCIUM, IONIZEDon 5 CALCIUM IONIZED 4.50 mg/dL Normal 4.30-5.20 [facility] Comment on above: Performed By: #### L AB54 ####Flight Line Service Attendant: MIGUEL LEAL ([phone])[facility] ([facility])[address] [place] [address] PH, IONIZED CALCIUM 7.43 Normal 7.31-7.46 [facility] [facility] Comment on above: Performed By: #### L AB54 ####Flight Line Service Attendant: MIGUEL LEAL ([phone])[facility] ([facility])[address] [place] [address] CBC (HEMOGRAM)on 06-16-2025 Erythrocyte distribution width (RBC) [Ratio] 13.4 % Normal 11.5-15.0 [facility] Comment on above: Performed By: #### L [id number] ####Flight Line Service Attendant: MIGUEL LEAL ([phone])[facility])[address] [place] [address] Hematocrit (Bld) [Volume fraction] 38.0 % Normal 35.0-47.0 [facility] Comment on above: Performed By: #### L AB294 ####Flight Line Service Attendant: MIGUEL LEAL ([phone])[facility])[address] [place] [address] Hemoglobin (Bld) [Mass/Vol] 12.8 g/dL Normal 11.7-16.0 [facility] Comment on above: Performed By: #### L AB294 ####Flight Line Service Attendant: MIGUEL LEAL ([phone])[facility])[address] [place] [address] MCH (RBC) [Entitic mass] 31.8 pg Normal 26.0-34.0 [facility] Comment on above: Performed By: #### L AB294 ####Flight Line Service Attendant: MIGUEL LEAL ([phone])[facility])[address] [place] [address] MCHC 33.7 % Normal 30.5-36.0 [facility] Comment on above: Performed By: #### L AB294 ####Flight Line Service Attendant: MIGUEL LEAL ([phone])[facility])[address] [place] [address] MCV (RBC) [Entitic vol] 94.3 fL Normal 77.0-99.0 S [facility] Comment on above: Performed By: #### L AB294 ####Flight Line Service Attendant: MIGUEL LEAL ([phone])[facility])[address] [place] [address] Platelet mean volume (Bld) [Entitic vol] 10.6 fL Normal 9.0-12.7 [facility] Comment on above: Performed By: #### L AB294 ####Flight Line Service Attendant: MIGUEL LEAL ([phone])[facility] ([facility])[address] [place] [address] Platelets (Bld) [#/Vol] 217 10*3/uL Normal 140-440 [facility] Comment on above: Performed By: #### L AB294 ####Flight Line Service Attendant: MIGUEL LEAL ([phone])[facility] ([facility])[address] [place] [address] RBC (Bld) [#/Vol] 4.03 10*6/uL Normal 3.80-5.20 [facility] Comment on above: Performed By: #### L AB294 ####Flight Line Service Attendant: MIGUEL LEAL ([phone])[facility] ([facility])[address] [place] [address] WBC (Bld) [#/Vol] 8.1 10*3/uL Normal 3.6-10.7 [facility] Comment on above: Performed By: #### L AB294 ####Flight Line Service Attendant: MIGUEL LEAL ([phone])[facility])[address] [place] [address] CBC panel Auto (Bld)on 06-16 Erythrocyte distribution width (RBC) [Ratio] 13.4 % 11.5 - 15.0 % [facility] Hematocrit (Bld) [Volume fraction] 38 % 35.0 - 47.0 % [facility] Hemoglobin (Bld) [Mass/Vol] 12.8 g/dL 11.7 - 16.0 g/dL [facility] Interpretation and review of laboratory results Normal [facility] MCH (RBC) [Entitic mass] 31.8 pg 26.0 - 34.0 pg [facility] MCHC (RBC) [Mass/Vol] 33.7 % 30.5 - 36.0 % [facility] MCV (RBC) [Entitic vol] 94.3 fL 77.0 - 99.0 fL [facility] Platelet mean volume (Bld) [Entitic vol] 10.6 fL 9.0 - 12.7 fL [facility] Platelets (Bld) [#/Vol] 217 10*3/uL 140 - 440 10*3/uL [facility] RBC (Bld) [#/Vol] 4.03 10*6/uL 3.80 - 5.2 0 10*6/uL [facility] WBC (Bld) [#/Vol] 8.1 10*3/uL 3.6 - 10.7 10*3/uL [facility] CK TOTAL AND CKMBon 06-16-20 25 CK [Catalytic activity/Vol] 105 U/L Normal 30-185 [facility] Comment on above: Performed By: #### L AB63 ####Flight Line Service Attendant: MIGUEL LEAL ([phone])[facility])[address] [place] [address] CK.MB [Mass/Vol] 2.5 ng/mL Normal <=3.4 [facility] Comment on above: Result Comment: ROCIO Bhandari COMMENTS:If CK-MB is elevated and the ratio of CK-MB to total CK (relative index) is more than 3, then it is likely that the heart was damaged. A high CK with a relative index below this value suggests that skeletal muscles were damaged. Performed By: #### L AB63 ####Flight Line Service Attendant: MIGUEL LEAL ([phone])[address] RELATIVE INDEX 2.4 % Normal <=3.0 [facility] Comment on above: Performed By: #### L AB63 ####Flight Line Service Attendant: MIGUEL LEAL ([phone])[facility])[address] [place] [address] CK [Catalytic activity/Vol] 103 U/L Normal 30-185 [facility] Comment on above: Performed By: #### L AB63 ####Flight Line Service Attendant: MIGUEL LEAL ([phone])[facility])[address] [place] [address] CK.MB [Mass/Vol] 2.7 ng/mL Normal <=3.4 [facility] Comment on above: Result Comment: ORDE R COMMENTS:If CK-MB is elevated and the ratio of CK-MB to total CK (relative index) is more than 3, then it is likely that the heart was damaged. A high CK with a relative index below this value suggests that skeletal muscles were damaged. Performed By: #### L AB63 ####Flight Line Service Attendant: MIGUEL LEAL ([phone])[facility])[address] [place] [address] RELATIVE INDEX 2.6 % Normal <=3.0 [facility] Comment on above: Performed By: #### L AB63 ####Flight Line Service Attendant: MIGUEL LEAL ([phone])[facility])[address] [place] [address] CK [Catalytic activity/Vol] 99 U/L Normal 30-185 [facility] Comment on above: Performed By: #### L 63, LAB17, [id number] ####Flight Line Service Attendant: MIGUEL LEAL ([phone])[facility])[address] [place] [address] CK.MB [Mass/Vol] 2.5 ng/mL Normal <=3.4 [facility] Comment on above: Result Comment: ROCIO R COMMENTS:If CK-MB is elevated and the ratio of CK-MB to total CK (relative index) is more than 3, then it is likely that the heart was damaged. A high CK with a relative index below this value suggests that skeletal muscles were damaged. Performed By: #### Jv CROW, LAB17, [id number] ####Flight Line Service Attendant: MIGUEL LEAL ([phone])[facility])[address] [place] [address] RELATIVE INDEX 2.5 % Normal <=3.0 [facility] Comment on above: Performed By: #### Jv CROW, LAB17, [id number] ####Flight Line Service Attendant: MIGUEL LEAL ([phone])[facility])[address] [place] [address] CK.total/Creatine kinase.MB [Catalytic ratio]on 06-16-2025 CK [Catalytic activity/Vol] 105 U/L 30 - 185 U/L [facility] CK.MB [Mass/Vol] 2.5 ng/mL NINF - 3.4 ng/mL [facility] Interpretation and review of laboratory results Normal [facility] RELATIVE INDEX 2.4 % NINF - 3.0 % [facility] CK [Catalytic activity/Vol] 103 U/L 30 - 185 U/L [facility] CK.MB [Mass/Vol] 2.7 ng/mL [facility] - 3.[facility] ng/mL [facility] Interpretation and review of laboratory results Normal [facility] RELATIVE INDEX 2.6 % NINF - 3.0 % [facility] CK [Catalytic activity/Vol] 99 U/L 30 - 185 U/L [facility] CK.MB [Mass/Vol] 2.5 ng/mL [facility] - 3.4 ng/mL [facility] Interpretation and review of laboratory results Normal [facility] RELATIVE INDEX 2.5 % [facility] - 3.0 % [facility] COMPREHENSIVE METABOLIC PANE [place] 06-16-2025 Albumin [Mass/Vol] 3.4 g/dL Normal 3.4-4.8 [facility] Comment on above: Performed By: #### Jv CROW, LAB17, [id number] ####Flight Line Service Attendant: MIGUEL LEAL ([phone])[address] ALP [Catalytic activity/Vol] 51 U/L Normal 40-150 [facility] Comment on above: Performed By: #### Jv CROW, LAB17, [id number] ####Flight Line Service Attendant: MIGUEL LEAL ([phone])[facility])[address] [place] [address] ALT [Catalytic activity/Vol] 6 U/L Normal <30 [facility] Comment on above: Performed By: #### Jv CROW, LAB17, [id number] ####Flight Line Service Attendant: MIGUEL LEAL ([phone])[facility])[address] [place] [address] Anion gap [Moles/Vol] 8 mmol/L Normal 3-13 [facility] Comment on above: Performed By: #### L AB63, LAB17, [id number] ####Flight Line Service Attendant: MIGUEL LEAL ([phone])[facility] ([facility])[address] [place] [address] AST [Catalytic activity/Vol] 28 U/L Normal <34 [facility] Comment on above: Performed By: #### Jv CROW, LAB17, [id number] ####Flight Line Service Attendant: MIGUEL LEAL ([phone])[facility] ([facility])[address] [place] [address] Bilirubin [Mass/Vol] 0.2 mg/dL Normal <1.2 [facility] Comment on above: Performed By: #### Jv CROW, LAB17, [id number] ####Flight Line Service Attendant: MIGUEL LEAL ([phone])[facility] ([facility])[address] [place] [address] Calcium [Mass/Vol] 8.6 mg/dL Low 8.8-10.0 [facility] Comment on above: Performed By: #### Jv CROW, LAB17, [id number] ####Flight Line Service Attendant: MIGUEL LEAL ([phone])[facility] [place] [address] [place] Chloride [Moles/Vol] 100 mmol/L Normal 98-107 [facility] Comment on above: Performed By: #### Jv CROW, LAB17, [id number] ####Flight Line Service Attendant: MIGUEL LEAL ([phone])[facility] [place] [address] [place] CO2 [Moles/Vol] 24 mmol/L Normal 23-31 [facility] Comment on above: Performed By: #### Jv CROW, LAB17, [id number] ####Flight Line Service Attendant: MIGUEL LEAL ([phone])[facility] ([facility])[address] [place] [address] Creatinine [Mass/Vol] 0.68 mg/dL Normal 0.57-1.11 [facility] Comment on above: Performed By: #### Jv CROW, LAB17, [id number] ####Flight Line Service Attendant: MIGUEL LEAL ([phone])[facility])[address] [place] [address] GLOMERULAR FILTRATION RATE ML/MIN/1.73 SQ M.PREDICTED >90.0 Normal >60.0 [facility] Comment on above: Result Comment: Calc ulation based on the Chronic Kidney Disease Epidemiology Collaboration (CKD-EPI) equation refit without adjustment for race Performed By: #### Jv CROW, LAB17, [id number] ####Flight Line Service Attendant: MIGUEL LEAL ([phone])[facility] ([facility])[address] [place] [address] Glucose [Mass/Vol] 108 mg/dL Normal 82-115 [facility] Comment on above: Performed By: #### Jv CROW, LAB17, [id number] ####Flight Line Service Attendant: MIGUEL LEAL ([phone])[facility])[address] [place] [address] Potassium [Moles/Vol] 4.0 mmol/L Normal 3.5-5.1 [facility] Comment on above: Result Comment: [facility] potassium values may be up to 0.5 mmol/L lower than serum values. Performed By: #### Jv CROW, LAB17, [id number] ####Flight Line Service Attendant: MIGUEL LEAL ([phone])[facility])[address] [place] [address] [place] Protein [Mass/Vol] 6.2 g/dL Low 6.4-8.3 [facility] Comment on above: Performed By: #### Jv CROW, LAB17, [id number] ####Flight Line Service Attendant: MIGUEL LEAL ([phone])[facility])[address] [place] [address] [place] Sodium [Moles/Vol] 132 mmol/L Low 136-145 [facility] Comment on above: Performed By: #### Jv CROW, LAB17, [id number] ####Flight Line Service Attendant: MIGUEL LEAL ([phone])[facility])[address] [place] [address] [place] Urea nitrogen [Mass/Vol] 16 mg/dL Normal 9-23 [facility] Comment on above: Performed By: #### L AB63, LAB17, [id number] ####Flight Line Service Attendant: MIGUEL LAEL ([phone])[facility] ([facility])[address] [place] [address] CT Chest WO contraston 06-16 Radiology Study observation (narrative) [facility] Calcium.ionized [Moles/Vol]o n 06-16-2025 Calcium.ionized (Bld) [Moles/Vol] 4.5 mg/dL 4.30 - 5.20 mg/dL [facility] Interpretation and review of laboratory results Normal [facility] PH, IONIZED CALCIUM 7.43 7.31 - 7.46 [facility] Comprehensive metabolic 1998 panelon 06-16-2025 Albumin [Mass/Vol] 3.4 g/dL 3.4 - 4.8 g/dL [facility] ALP [Catalytic activity/Vol] 51 U/L 40 - 150 U/L [facility] ALT [Catalytic activity/Vol] 6 U/L NINF - 30 U/L [facility] Anion gap [Moles/Vol] 8 mmol/L 3 - 13 mmol/L [facility] AST [Catalytic activity/Vol] 28 U/L [facility] - 34 U/L [facility] Bilirubin [Mass/Vol] 0.2 mg/dL NINF - 1.2 mg/dL [facility] Calcium [Mass/Vol] 8.6 mg/dL Low 8.8 - 10. 0 mg/dL [facility] Chloride [Moles/Vol] 100 mmol/L 98 - 10 7 mmol/L [facility] CO2 [Moles/Vol] 24 mmol/L 23 - 31 mmol/L [facility] Creatinine [Mass/Vol] 0.68 mg/dL 0.57 - 1.11 mg/dL [facility] GFR/1.73 sq M.predicted (S/P/Bld) [Vol rate/Area] - PINF [facility] Glucose [Mass/Vol] 108 mg/dL 82 - 115 mg/dL [facility] Potassium [Moles/Vol] 4 mmol/L 3.5 - 5.1 mmol/L [facility] Protein [Mass/Vol] 6.2 g/dL Low 6.4 - 8.3 g/dL [facility] Sodium [Moles/Vol] 132 mmol/L Low 136 - 145 mmol/L [facility] Urea nitrogen [Mass/Vol] 16 mg/dL 9 - 23 mg/dL [facility] ECG 12-LEADon 06-16-2025 ECG 12-LEAD IMPRESSION: Sinus rhythm Probable left atrial enlargement Right axis deviation Low voltage, precordial leads Nonspecific T abnrm, anterolateral leads Electronically Signed On 06-16-2025 09:44:30 EDT by Selvin Lynch [facility] ECG 12-LEAD IMPRESSION: Sinus bradycardia Low voltage with right axis deviation Repol abnrm suggests ischemia, anterolateral Electronically Signed On 06-16-2025 09:26:23 EDT by Selvin Lynch [facility] ECG 12-LEAD IMPRESSION: Sinus rhythm Low voltage, extremity leads Nonspecific st/t changes Electronically Signed On 06-16-2025 09:24:39 EDT [facility] HEMOGLOBIN A1Con 06-16-2025 Glucose [Mass/Vol] 120 mg/dL Normal [facility] Comment on above: Result Comment: ROCIO Bhandari COMMENTS:HbA1c values of 5.7-6.4 percent indicate an increased risk for developing diabetes mellitus. HbA1c values greater than or equal to 6.5 percent are diagnostic of diabetes mellitus. For diagnosis of diabetes in individuals without unequivocal hyperglycemia, results should be confirmed by repeat testing. Performed By: #### L AB90 ####Flight Line Service Attendant: MIGUEL LEAL ([phone])[facility])[address] [place] [address] HEMOGLOBIN A1C 5.8 %HbA1C High <5.7 [facility] Comment on above: Result Comment: Norm al less than 5.7%Prediabetes 5.7% to 6.4%Diabetes 6.5% or higher--HgbA1C levels may not be accurate in patients who have renal disease, received recent blood transfusions, are anemic, or who have dyshemoglobinemia. Performed By: #### L AB90 ####Flight Line Service Attendant: MIGUEL LEAL ([phone])[facility])[address] [place] [address] Laboratory - Chemistry and C hemistry - challengeon 06-16-2025 Average glucose Estimated from glycated hemoglobin (Bld) [Mass/Vol] 120 mg/dL [facility] Magnesium [Mass/Vol] 2.7 mg/dL High 1.6 - 2 .6 mg/dL [facility] Laboratory - Hematology and Cell countson 06-16-2025 HbA1c (Bld) [Mass fraction] 5.8 % High NINF [facility] MAGNESIUMon 06-16-2025 Magnesium [Mass/Vol] 2.7 mg/dL High 1.6-2.6 [facility] Comment on above: Result Comment: ROCIO Bhandari COMMENTS:Higher values can be expected in females during menses. Performed By: #### L AB63, LAB17, [id number] ####Flight Line Service Attendant: MIGUEL LEAL ([phone])[address] Magnesium [Mass/Vol]on 06-16 [facility] No Panel InformationOrdered By: Selvin Lynch on 06-16-2025 P [place] 59 degrees [facility] Work Phone: [place] Interval 160 ms [facility] Work Phone: QRS [place] 100 degrees [facility] Work Phone: QRSD Interval 89 ms [facility] Work Phone: QT Interval 404 ms [facility] Work Phone: QTC Interval 440 ms [facility] Work Phone: T Wave [place] 0 degrees [facility] Work Phone: [facility] Work Phone: No Panel Informationon 06-16 CV EPIPHANY [facility] P [place] 60 degrees [facility] [place] Interval 173 ms [facility] QRS [place] 73 degrees [facility] QRSD Interval 103 ms [facility] QT Interval 480 ms [facility] QTC Interval 473 ms [facility] T Wave [place] 181 degrees [facility] CV EPIPHANY [facility] P [place] 59 degrees [facility] [place] Interval 171 ms [facility] QRS [place] 68 degrees [facility] QRSD Interval 101 ms [facility] QT Interval 467 ms [facility] QTC Interval 473 ms [facility] T Wave [place] 0 degrees [facility] CV EPIPHANY [facility] Interpretation and review of laboratory results Abnormal [facility] Interpretation and review of laboratory results Abnormal [facility] Progress Noteon 06-16-2025 Progress Note Nutrition rescreen completed. Chart reviewed. Patient to be monitored and followed by the diet nuclear test technician. BEENA Alvarado Normal [facility] Progress Note Normal [facility] US Heart TransthoracicOrdere d By: Darius Patterson on 06-16-2025 Aortic Arch 2.4 cm [facility] Work Phone: Aortic Sinus Valsalva 3.4 cm [facility] Work Phone: Aortic Sinus Valsalva Index 2.06 cm/m2 [facility] Work Phone: Aortic valve Mean systole pressure gradient by US.doppler derived full Bernoulli 3 mmHg [facility] Work Phone: Aortic valve Orifice area by US 2.8 cm2 [facility] Work Phone: Aortic valve Peak systolic flow by US.doppler 0.9 m/s [facility] Work Phone: Ascending Aorta 2.8 [facility] Work Phone: Ascending Aorta Index 1.7 cm/m2 [facility] Work Phone: AV Area by Peak Velocity 2.2 cm2 [facility] Work Phone: AV Area by VTI 2.2 cm2 [facility] Work Phone: AV AT 91.34 ms [facility] Work Phone: AV Peak Gradient 6 mmHg [facility] Work Phone: AV Peak Velocity 1.2 m/s [facility] Work Phone: AV Velocity Ratio 0.75 [facility] Work Phone: AV VTI 25.4 cm [facility] Work Phone: CHRISTOPHE/BSA Peak Velocity 1.3 cm2/m2 [facility] Work Phone: CHRISTOPHE/BSA VTI 1.3 cm2/m2 [facility] Work Phone: [phone] E/E' Lateral 9.6 [facility] Work Phone: [phone] E/E' Ratio (Averaged) 9.6 [facility] Work Phone: [phone] E/E' Septal 9.6 [facility] Work Phone: [phone] EF Physician 50 % [facility] Work Phone: [phone] Est. RA Pressure [address] [facility] Work Phone: [phone] Fractional Shortening 2D 33 % 28 - 44 % [facility] Work Phone: [phone] Global Longitudinal Strain -16.3 % [facility] Work Phone: [phone] Global Longitudinal Strain -14.8 % [facility] [employer] Phone: [phone] Global Longitudinal Strain -14 % [facility] Work Phone: [phone] Global Longitudinal Strain -15.1 % [facility] Work Phone: [phone] IVC Diameter 1.8 cm [facility] Work Phone: [phone] IVSd 0.7 cm 0.6 - 0.9 cm [facility] Work Phone: [phone] LA Diameter 2.5 cm [facility] Work Phone: LA Size Index 1.52 cm/m2 [facility] [employer] Work Phone: [phone] LA Volume 2C 30 mL 22 - 52 mL [facility] Work Phone: [phone] LA Volume 4C 42 mL 22 - 52 mL [facility] Work Phone: [phone] LA Volume A/L 40 mL [facility] [employer] Work Phone: [phone] LA Volume BP 36 mL 22 - 52 mL [facility] Work Phone: [phone] LA Volume Index 2C 18 mL/m2 16 - 34 mL/m2 [facility] Work Phone: LA Volume Index 4C 25 mL/m2 16 - 34 mL/m2 [facility] Work Phone: [phone] LA Volume Index A/L 24 mL/m2 16 - 34 mL/m2 [facility] Work Phone: [phone] LA Volume Index BP 22 ml/m2 16 - 34 ml/m2 [facility] Work Phone: [phone] Left ventricular Ejection fraction by US.2D+Calculated by biplane method of disks 63 % 55 - 100 % [facility] Work Phone: [phone] LV E' Lateral Velocity 5 cm/s [facility] Work Phone: [phone] LV E' Septal Velocity 5 cm/s [facility] Work Phone: [phone] LV EDV A2C 76 mL [facility] Work Phone: [phone] LV EDV A4C 77 mL [facility] Work Phone: [phone] LV EDV BP 77 mL 56 - 104 mL [facility] Work Phone: LV EDV Index A2C 46 mL/m2 [facility] Work [phone] LV EDV Index A4C 47 mL/m2 [facility] Work Phone: [phone] LV EDV Index BP 47 mL/m2 [facility] Work Phone: [phone] LV Ejection Fraction A2C 63 % [facility] Work Phone: [phone] LV Ejection Fraction A4C 62 % [facility] Work Phone: [phone] LV ESV A2C 28 mL [facility] Work Phone: LV ESV A4C 29 mL [facility] Work [phone] LV ESV BP 29 mL 19 - 49 mL [facility] Work Phone: [phone] LV ESV Index A2C 17 mL/m2 [facility] Work Phone: [phone] LV ESV Index A4C 18 mL/m2 [facility] Work Phone: [phone] LV ESV Index BP 18 mL/m2 [facility] Work Phone: LV Mass 2D 93 g 67 - 162 g [facility] Work Phone: LV Mass 2D Index 56.4 g/m2 43 - 95 g/m2 [facility] Work Phone: LV RWT Ratio 0.38 [facility] Work Phone: LVIDd 4.2 cm 3.9 - 5.3 cm [facility] Work Phone: LVIDd Index 2.55 cm/m2 [facility] Work Phone: LVIDs 2.8 cm [facility] Work Phone: [phone] LVIDs Index 1.7 cm/m2 [facility] Work Phone: [phone] LVOT Cardiac Output 3.7 liter/mi nut e [facility] Work Phone: [phone] LVOT Diameter 1.9 cm [facility] [employer] Work Phone: [phone] LVOT Mean Gradient 2 mmHg [facility] Work Phone: [phone] LVOT Peak Gradient 3 mmHg [facility] Work Phone: [phone] LVOT Peak Velocity 0.9 m/s [facility] Work Phone: [phone] LVOT Stroke Volume Index 33 mL/m2 [facility] Work Phone: [phone] LVOT SV 54.4 ml [facility] Work Phone: [phone] LVOT VTI 19.2 cm [facility] Work Phone: [phone] LVOT:AV VTI Index 0.76 [facility] Work Phone: [phone] LVPWd 0.8 cm 0.6 - 0.9 cm [facility] Work Phone: [phone] MV A Velocity 0.98 m/s [facility] Work Phone: [phone] MV E Velocity 0.48 m/s [facility] Work Phone: [phone] MV E Wave Deceleration Time 311.6 ms [facility] Work Phone: [phone] MV E/A 0.49 [facility] Work Phone: [phone] RA Area 4C 19.3 mL [facility] Work Phone: [phone] RA Area 4C 17.9 mL [facility] Work Phone: [phone] RV Basal Dimension 3 cm [facility] Work Phone: RV Free Wall Peak S' 10 cm/s [facility] Work Phone: [phone] RV Longitudinal Dimension 5 cm [facility] Work Phone: RV Mid Dimension 2.3 cm [facility] Work Phone: RVSP 22 mmHg [facility] Work Phone: [phone] Sinotubular Junction 2.3 cm [facility] Work Phone: TAPSE 2 cm 1.7 cm [facility] Work Phone: TR Max Velocity 2.19 m/s [facility] Work Phone: TR Peak Gradient 19 mmHg [facility] Work Phone: [facility] Work Phone: US Heart Transthoracicon CV CPACS Vital signsOrdered By: Selvin Lynch on 06-16-2025 Heart rate 71 /min bpm [facility] Work Phone: Vital signson 06-16-2025 Heart rate 58 /min bpm [facility] Heart rate 61 /min bpm [facility] XR ABDOMEN 1 VIEWon 06-16-20 25 XR ABDOMEN 1 VIEW Normal [facility] XR Abdomen Single viewon [facility] RADIOLOGY SYSTEM [facility] Radiology Study observation (narrative) Molly [facility] XR Abdomen Single viewOrdere d By: César Pizarro on 06-16-2025 [facility] Work Phone: aPTT Coag (Bld) [Time]on aPTT Coag (PPP) [Time] 60.9 s High 20.0 - 30.5 s [facility] Interpretation and review of laboratory results Abnormal [facility] APTTon 06-15-2025 aPTT Coag (Bld) [Time] 61.7 s High 20.0-30.5 [facility] Comment on above: Result Comment: ROCIO Bhandari COMMENTS:NOTE: The therapeutic time for Heparin anticoagulation, based on Xa activity inhibition, is an APTT of 46-80 seconds. Performed By: #### L AB325 ####Flight Line Service Attendant: MIGUEL LEAL ([phone])[facility] [place] [address] aPTT Coag (Bld) [Time] 47.0 s High 20.0-30.5 [facility] Comment on above: Result Comment: ROCIO R COMMENTS:NOTE: The therapeutic time for Heparin anticoagulation, based on Xa activity inhibition, is an APTT of 46-80 seconds. Performed By: #### L AB325 ####Flight Line Service Attendant: MIGUEL LEAL ([phone])[facility] [place] [address] aPTT Coag (Bld) [Time] 63.2 s High 20.0-30.5 [facility] Comment on above: Result Comment: ROCIO Bhandari COMMENTS:NOTE: The therapeutic time for Heparin anticoagulation, based on Xa activity inhibition, is an APTT of 46-80 seconds. Performed By: #### L AB325 ####Flight Line Service Attendant: MIGUEL LEAL ([phone])[facility] ([facility])[address] [place] [address] aPTT Coag (Bld) [Time] 39.3 s High 20.0-30.5 [facility] Comment on above: Result Comment: ROCIO Bhandari COMMENTS:NOTE: The therapeutic time for Heparin anticoagulation, based on Xa activity inhibition, is an APTT of 46-80 seconds. Performed By: #### L AB325 ####Flight Line Service Attendant: MIGUEL LEAL ([phone])[facility] [place] [address] [place] CALCIUM, IONIZEDon 5 CALCIUM IONIZED 4.50 mg/dL Normal 4.30-5.20 [facility] Comment on above: Performed By: #### L AB54 ####Flight Line Service Attendant: MIGUEL LEAL ([phone])[facility] ([facility])[address] [place] [address] PH, IONIZED CALCIUM 7.40 Normal 7.31-7.46 [facility] Comment on above: Performed By: #### L AB54 ####Flight Line Service Attendant: MIGUEL LEAL ([phone])[facility])[address] [place] [address] CBC (HEMOGRAM)on 06-15-2025 Erythrocyte distribution width (RBC) [Ratio] 13.4 % Normal 11.5-15.0 [facility] Comment on above: Performed By: #### L AB294 ####Flight Line Service Attendant: MIGUEL LEAL ([phone])[facility])[address] [place] [address] Hematocrit (Bld) [Volume fraction] 38.8 % Normal 35.0-47.0 [facility] Comment on above: Performed By: #### L AB294 ####Flight Line Service Attendant: MIGUEL LEAL ([phone])[address] Hemoglobin (Bld) [Mass/Vol] 12.5 g/dL Normal 11.7-16.0 [facility] Comment on above: Performed By: #### L AB294 ####Flight Line Service Attendant: MIGUEL LEAL ([phone])[facility])[address] [place] [address] MCH (RBC) [Entitic mass] 30.9 pg Normal 26.0-34.0 [facility] Comment on above: Performed By: #### L AB294 ####Flight Line Service Attendant: MIGUEL LEAL ([phone])[address] MCHC 32.2 % Normal 30.5-36.0 [facility] Comment on above: Performed By: #### L AB294 ####Flight Line Service Attendant: MIGUEL ELAL ([phone])[address] MCV (RBC) [Entitic vol] 95.8 fL Normal 77.0-99.0 [facility] Comment on above: Performed By: #### L AB294 ####Flight Line Service Attendant: MIGUEL LEAL ([phone])[facility] ([facility])[address] [place] [address] Platelet mean volume (Bld) [Entitic vol] 10.5 fL Normal 9.0-12.7 [facility] Comment on above: Performed By: #### L AB294 ####Flight Line Service Attendant: MIGUEL LEAL ([phone])[facility] ([facility])[address] [place] [address] Platelets (Bld) [#/Vol] 211 10*3/uL Normal 140-440 [facility] Comment on above: Performed By: #### L AB294 ####Flight Line Service Attendant: MIGUEL LEAL ([phone])[facility] ([facility])[address] [place] [address] RBC (Bld) [#/Vol] 4.05 10*6/uL Normal 3.80-5.20 [facility] Comment on above: Performed By: #### L AB294 ####Flight Line Service Attendant: MIGUEL LEAL ([phone])[facility] ([facility])[address] [place] [address] WBC (Bld) [#/Vol] 5.7 10*3/uL Normal 3.6-10.7 [facility] Comment on above: Performed By: #### L AB294 ####Flight Line Service Attendant: MIGUEL LEAL ([phone])[facility] ([facility])[address] [place] [address] CBC W/Diff, Automatedon 07-2 -2024 Absolute Neut Normal 2.0-7.7 [facility] Comment on above: Result Comment: Canc elled via OM: Order cancelled - Patient discharged Performed By: #### L 500.2500, L501.4021, L100.0100 #### [facility] [address] [place], [place], [address] HCT Normal 37-47 [facility] Comment on above: Result Comment: Canc elled via OM: Order cancelled - Patient discharged Performed By: #### L 500.2500, L501.4021, L100.0100 #### [facility] [address] [place], [address] HGB Normal 12.0-15.0 [facility] Comment on above: Result Comment: Canc elled via OM: Order cancelled - Patient discharged Performed By: #### L 500.2500, L501.4021, L100.0100 #### [facility] [address] [place], [address] MCH Normal 27.0-32.0 [facility] Comment on above: Result Comment: Canc elled via OM: Order cancelled - Patient discharged Performed By: #### L 500.2500, L501.4021, L100.0100 #### [facility] [address] [place], [address] MCHC Normal 32-36 [facility] Comment on above: Result Comment: Canc elled via OM: Order cancelled - Patient discharged Performed By: #### L 500.2500, L501.4021, L100.0100 #### [facility] [address] [place], [address] MCV Normal 81-99 [facility] Comment on above: Result Comment: Canc elled via OM: Order cancelled - Patient discharged Performed By: #### L 500.2500, L501.4021, L100.0100 #### [facility] [address] [place], [address] NEUT% Normal 47-70 [facility] Comment on above: Result Comment: Canc elled via OM: Order cancelled - Patient discharged Performed By: #### L 500.2500, L501.4021, L100.0100 #### [facility] [address] [place], [address] PLT Normal 150-450 [facility] Comment on above: Result Comment: Canc elled via OM: Order cancelled - Patient discharged Performed By: #### L 500.2500, L501.4021, L100.0100 #### [facility] [address] [place], [address] RBC Normal 4.2-5.4 [facility] Comment on above: Result Comment: Canc elled via OM: Order cancelled - Patient discharged Performed By: #### L 500.2500, L501.4021, L100.0100 #### [facility] [address] [place], [address] RDW CV Normal 11.6-14.6 [facility] Comment on above: Result Comment: Canc elled via OM: Order cancelled - Patient discharged Performed By: #### L 500.2500, L501.4021, L100.0100 #### [facility] [address] [place], [address] RDW SD Normal 35.1-43.9 [facility] Comment on above: Result Comment: Canc elled via OM: Order cancelled - Patient discharged Performed By: #### L 500.2500, L501.4021, L100.0100 #### [facility] [address] [place], [address] WBC Normal 4.4-11.0 [facility] Comment on above: Result Comment: Canc elled via OM: Order cancelled - Patient discharged Performed By: #### L 500.2500, L501.4021, L100.0100 #### [facility] [address] [place], [address] CBC panel Auto (Bld)on 06-15 Erythrocyte distribution width (RBC) [Ratio] 13.4 % 11.5 - 15.0 % [facility] Hematocrit (Bld) [Volume fraction] 38.8 % 35.0 - 47.0 % [facility] Hemoglobin (Bld) [Mass/Vol] 12.5 g/dL 11.7 - 16.0 g/dL [facility] Interpretation and review of laboratory results Normal [facility] MCH (RBC) [Entitic mass] 30.9 pg 26.0 - 34.0 pg [facility] MCHC (RBC) [Mass/Vol] 32.2 % 30.5 - 36.0 % [facility] MCV (RBC) [Entitic vol] 95.8 fL 77.0 - 99.0 fL [facility] Platelet mean volume (Bld) [Entitic vol] 10.5 fL 9.0 - 12.7 fL [facility] Platelets (Bld) [#/Vol] 211 10*3/uL 140 - 440 10*3/uL [facility] RBC (Bld) [#/Vol] 4.05 10*6/uL 3.80 - 5.2 0 10*6/uL [facility] WBC (Bld) [#/Vol] 5.7 10*3/uL 3.6 - 10.7 10*3/uL [facility] CK TOTAL AND CKMBon 06-15-20 25 CK [Catalytic activity/Vol] 104 U/L Normal 30-185 [facility] Comment on above: Performed By: #### L AB63 ####Flight Line Service Attendant: MIGUEL LEAL ([phone])[address] CK.MB [Mass/Vol] 2.7 ng/mL Normal <=3.4 [facility] Comment on above: Result Comment: ROCIO Bhandari COMMENTS:If CK-MB is elevated and the ratio of CK-MB to total CK (relative index) is more than 3, then it is likely that the heart was damaged. A high CK with a relative index below this value suggests that skeletal muscles were damaged. Performed By: #### L AB63 ####Flight Line Service Attendant: MIGUEL LEAL ([phone])[facility] ([facility])[address] [place] [address] RELATIVE INDEX 2.6 % Normal <=3.0 [facility] Comment on above: Performed By: #### L AB63 ####Flight Line Service Attendant: MIGUEL LEAL ([phone])[facility] ([facility])[address] [place] [address] CK [Catalytic activity/Vol] 88 U/L Normal 30-185 [facility] Comment on above: Performed By: #### L AB63 ####Flight Line Service Attendant: MIGUEL LEAL ([phone])[facility])[address] [place] [address] CK.MB [Mass/Vol] 2.3 ng/mL Normal <=3.4 [facility] Comment on above: Result Comment: ORDE R COMMENTS:If CK-MB is elevated and the ratio of CK-MB to total CK (relative index) is more than 3, then it is likely that the heart was damaged. A high CK with a relative index below this value suggests that skeletal muscles were damaged. Performed By: #### L AB63 ####Flight Line Service Attendant: MIGUEL LEAL ([phone])[facility] ([facility])[address] [place] [address] RELATIVE INDEX 2.6 % Normal <=3.0 [facility] Comment on above: Performed By: #### L AB63 ####Flight Line Service Attendant: MIGUEL LEAL ([phone])[facility] ([facility])[address] [place] [address] CK [Catalytic activity/Vol] 93 U/L Normal 30-185 [facility] Comment on above: Performed By: #### L AB63 ####Flight Line Service Attendant: MIGUEL LEAL ([phone])[facility])[address] [place] [address] CK.MB [Mass/Vol] 2.6 ng/mL Normal <=3.4 [facility] Comment on above: Result Comment: ORDE R COMMENTS:If CK-MB is elevated and the ratio of CK-MB to total CK (relative index) is more than 3, then it is likely that the heart was damaged. A high CK with a relative index below this value suggests that skeletal muscles were damaged. Performed By: #### L AB63 ####Flight Line Service Attendant: MIGUEL LEAL ([phone])[facility] ([facility])[address] [place] [address] RELATIVE INDEX 2.8 % Normal <=3.0 [facility] Comment on above: Performed By: #### L AB63 ####Flight Line Service Attendant: MIGUEL LEAL ([phone])[facility])[address] [place] [address] CK [Catalytic activity/Vol] 85 U/L Normal 30-185 [facility] Comment on above: Performed By: #### L AB17, LAB18, LAB63, [id number] ####Flight Line Service Attendant: MIGUEL LEAL ([phone])[facility] ([facility])[address] [place] [address] CK.MB [Mass/Vol] 2.3 ng/mL Normal <=3.4 [facility] Comment on above: Result Comment: ROCIO R COMMENTS:If CK-MB is elevated and the ratio of CK-MB to total CK (relative index) is more than 3, then it is likely that the heart was damaged. A high CK with a relative index below this value suggests that skeletal muscles were damaged. Performed By: #### L AB17, LAB18, LAB63, [id number] ####Flight Line Service Attendant: MIGUEL LEAL ([phone])[facility] ([facility])[address] [place] [address] RELATIVE INDEX 2.7 % Normal <=3.0 [facility] Comment on above: Performed By: #### L AB17, LAB18, LAB63, [id number] ####Flight Line Service Attendant: MIGUEL LEAL ([phone])[address] CK.total/Creatine kinase.MB [Catalytic ratio]on 06-15-2025 CK [Catalytic activity/Vol] 104 U/L 30 - 185 U/L [facility] CK.MB [Mass/Vol] 2.7 ng/mL NINF - 3.4 ng/mL [facility] Interpretation and review of laboratory results Normal [facility] RELATIVE INDEX 2.6 % NINF - 3.0 % [facility] CK [Catalytic activity/Vol] 88 U/L 30 - 185 U/L [facility] CK.MB [Mass/Vol] 2.3 ng/mL NINF - 3.4 ng/mL [facility] Interpretation and review of laboratory results Normal [facility] RELATIVE INDEX 2.6 % NINF - 3.0 % [facility] CK [Catalytic activity/Vol] 93 U/L 30 - 185 U/L [facility] CK.MB [Mass/Vol] 2.6 ng/mL [facility] - 3.[facility] ng/mL [facility] Interpretation and review of laboratory results Normal [facility] RELATIVE INDEX 2.8 % NINF - 3.0 % [facility] CK [Catalytic activity/Vol] 85 U/L 30 - 185 U/L [facility] CK.MB [Mass/Vol] 2.3 ng/mL [facility] - 3.4 ng/mL [facility] Interpretation and review of laboratory results Normal [facility] RELATIVE INDEX 2.7 % [facility] - 3.0 % [facility] COMPREHENSIVE METABOLIC PANE [place] 06-15-2025 Albumin [Mass/Vol] 3.4 g/dL Normal 3.4-4.8 [facility] Comment on above: Performed By: #### L AB17, LAB18, LAB63, [id number] ####Flight Line Service Attendant: MIGUEL LEAL ([phone])[address] ALP [Catalytic activity/Vol] 46 U/L Normal 40-150 [facility] Comment on above: Performed By: #### L AB17, LAB18, LAB63, [id number] ####Flight Line Service Attendant: MIGUEL LEAL ([phone])[facility])[address] [place] [address] ALT [Catalytic activity/Vol] U/L Normal <30 [facility] Comment on above: Performed By: #### L AB17, LAB18, LAB63, [id number] ####Flight Line Service Attendant: MIGUEL LEAL ([phone])[facility])[address] [place] [address] Anion gap [Moles/Vol] 11 mmol/L Normal 3-13 [facility] Comment on above: Performed By: #### L AB17, LAB18, LAB63, [id number] ####Flight Line Service Attendant: MIGUEL LEAL ([phone])[facility])[address] [place] [address] AST [Catalytic activity/Vol] 32 U/L Normal <34 [facility] Comment on above: Performed By: #### L AB17, LAB18, LAB63, [id number] ####Flight Line Service Attendant: MIGUEL LEAL ([phone])[facility] ([facility])[address] [place] [address] Bilirubin [Mass/Vol] 0.3 mg/dL Normal <1.2 [facility] Comment on above: Performed By: #### L AB17, LAB18, LAB63, [id number] ####Flight Line Service Attendant: MIGUEL LEAL ([phone])[facility] ([facility])[address] [place] [address] Calcium [Mass/Vol] 8.8 mg/dL Normal 8.8-10.0 [facility] Comment on above: Performed By: #### L AB17, LAB18, LAB63, [id number] ####Flight Line Service Attendant: MIGUEL LEAL ([phone])[facility] ([facility])[address] [place] [address] [place] Chloride [Moles/Vol] 103 mmol/L Normal 98-107 [facility] Comment on above: Performed By: #### L AB17, LAB18, LAB63, [id number] ####Flight Line Service Attendant: MIGUEL LEAL ([phone])[facility] ([facility])[address] [place] [address] [place] CO2 [Moles/Vol] 22 mmol/L Low 23-31 [facility] Comment on above: Performed By: #### L AB17, LAB18, LAB63, [id number] ####Flight Line Service Attendant: MIGUEL LEAL ([phone])[facility] ([facility])[address] [place] [address] Creatinine [Mass/Vol] 0.69 mg/dL Normal 0.57-1.11 [facility] Comment on above: Performed By: #### L AB17, LAB18, LAB63, [id number] ####Flight Line Service Attendant: IMGUEL LEAL ([phone])[facility])[address] [place] [address] GLOMERULAR FILTRATION RATE ML/MIN/1.73 SQ M.PREDICTED >90.0 Normal >60.0 [facility] Comment on above: Result Comment: Calc ulation based on the Chronic Kidney Disease Epidemiology Collaboration (CKD-EPI) equation refit without adjustment for race Performed By: #### L AB17, LAB18, LAB63, [id number] ####Flight Line Service Attendant: MIGUEL LEAL ([phone])[facility])[address] [place] [address] Glucose [Mass/Vol] 92 mg/dL Normal 82-115 [facility] Comment on above: Performed By: #### L AB17, LAB18, LAB63, [id number] ####Flight Line Service Attendant: MIGUEL LEAL ([phone])[facility])[address] [place] [address] Potassium [Moles/Vol] 4.1 mmol/L Normal 3.5-5.1 [facility] Comment on above: Result Comment: [facility] potassium values may be up to 0.5 mmol/L lower than serum values. Performed By: #### L AB17, LAB18, LAB63, [id number] ####Flight Line Service Attendant: MIGUEL LEAL ([phone])[facility])[address] [place] [address] [place] Protein [Mass/Vol] 6.2 g/dL Low 6.4-8.3 [facility] Comment on above: Performed By: #### L AB17, LAB18, LAB63, [id number] ####Flight Line Service Attendant: MIGUEL LEAL ([phone])[facility])[address] [place] [address] [place] Sodium [Moles/Vol] 136 mmol/L Normal 136-145 [facility] Comment on above: Performed By: #### L AB17, LAB18, LAB63, [id number] ####Flight Line Service Attendant: MIGUEL LEAL ([phone])[facility])[address] [place] [address] [place] Urea nitrogen [Mass/Vol] 18 mg/dL Normal 08-13 [facility] Comment on above: Performed By: #### L AB17, LAB18, LAB63, [id number] ####Flight Line Service Attendant: MIGUEL LEAL ([phone])[facility] ([facility])[address] [place] [address] Calcium.ionized [Moles/Vol]o n 06-15-2025 Calcium.ionized (Bld) [Moles/Vol] 4.5 mg/dL 4.30 - 5.20 mg/dL [facility] Interpretation and review of laboratory results Normal [facility] PH, IONIZED CALCIUM 7.4 7.31 - 7.46 [facility] Comprehensive metabolic 1998 panelon 06-15-2025 Albumin [Mass/Vol] 3.4 g/dL 3.4 - 4.8 g/dL [facility] ALP [Catalytic activity/Vol] 46 U/L 40 - 150 U/L [facility] ALT [Catalytic activity/Vol] U/L NINF - 30 U/L [facility] Anion gap [Moles/Vol] 11 mmol/L 3 - 13 mmol/L [facility] AST [Catalytic activity/Vol] 32 U/L NINF - 34 U/L [facility] Bilirubin [Mass/Vol] 0.3 mg/dL NINF - 1.2 mg/dL [facility] Calcium [Mass/Vol] 8.8 mg/dL 8.8 - 10. 0 mg/dL [facility] Chloride [Moles/Vol] 103 mmol/L 98 - 10 7 mmol/L [facility] CO2 [Moles/Vol] 22 mmol/L Low 23 - 31 mmol/L [facility] Creatinine [Mass/Vol] 0.69 mg/dL 0.57 - 1.11 mg/dL [facility] GFR/1.73 sq M.predicted (S/P/Bld) [Vol rate/Area] - PINF [facility] Glucose [Mass/Vol] 92 mg/dL 82 - 115 mg/dL [facility] Potassium [Moles/Vol] 4.1 mmol/L 3.5 - 5.1 mmol/L [facility] Protein [Mass/Vol] 6.2 g/dL Low 6.4 - 8.3 g/dL [facility] Sodium [Moles/Vol] 136 mmol/L 136 - 145 mmol/L [facility] Urea nitrogen [Mass/Vol] 18 mg/dL 9 - 23 mg/dL [facility] Consulton 06-15-2025 Consult Normal [facility] LIPID PANELon 06-15-2025 Cholesterol [Mass/Vol] 295 mg/dL High <200 [facility] Comment on above: Order Comment: If no t done in the last six months. Performed By: #### L AB17, LAB18, LAB63, [id number] ####[facility] Service Attendant: MIGUEL LEAL ([phone])[facility] ([facility])[address] [place] [address] Cholesterol in HDL [Mass/Vol] 79 mg/dL Normal >=60 [facility] Comment on above: Order Comment: If no t done in the last six months. Performed By: #### L AB17, LAB18, LAB63, [id number] ####Flight Line Service Attendant: MIGUEL LEAL ([phone])[address] Cholesterol.total/Mel sterol in HDL [Mass ratio] 4 {ratio} Normal [facility] Comment on above: Order Comment: If no t done in the last six months. Result Comment: Ref Range:< 3 Low Risk for CHD3-6 Mod Risk for CHD> 6 High Risk for CHD Performed By: #### L AB17, LAB18, LAB63, [id number] ####Flight Line Service Attendant: MIGUEL LEAL ([phone])[facility] ([facility])[address] [place] [address] LOW DENSITY LIPOPROTEIN 190 mg/dL High 0-<100 [facility] Comment on above: Order Comment: If no t done in the last six months. Performed By: #### L AB17, LAB18, LAB63, [id number] ####Flight Line Service Attendant: MIGUEL LEAL ([phone])[facility] ([facility])[address] [place] [address] NON-HDL CHOLESTEROL, CALCULATED 216 High <130 [facility] Comment on above: Order Comment: If no t done in the last six months. Performed By: #### L AB17, LAB18, LAB63, [id number] ####Flight Line Service Attendant: MIGUEL LEAL ([phone])[facility] ([facility])[address] [place] [address] Triglyceride [Mass/Vol] 129 mg/dL Normal <150 [facility] Comment on above: Order Comment: If no t done in the last six months. Performed By: #### L AB17, LAB18, LAB63, [id number] ####Flight Line Service Attendant: MIGUEL LEAL ([phone])[facility])[address] [place] [address] VERY LOW DENSITY LIPOPROTEIN, CALCULATED 26 mg/dL Normal <=30 [facility] Comment on above: Order Comment: If no t done in the last six months. Performed By: #### L AB17, LAB18, LAB63, [id number] ####Flight Line Service Attendant: MIGUEL LEAL ([phone])[facility])[address] [place] [address] Laboratory - Chemistry and C hemistry - challengeon 06-15-2025 Magnesium [Mass/Vol] 2.2 mg/dL 1.6 - 2 .6 mg/dL [facility] Lipid 1996 panelon 5 Cholesterol [Mass/Vol] 295 mg/dL High NINF - 200 mg/dL [facility] Cholesterol in HDL [Mass/Vol] 79 mg/dL 60 - PINF mg/dL [facility] Cholesterol in LDL [Mass/Vol] 190 mg/dL High 0 - <100 [facility] Cholesterol.total/Mel sterol in HDL [Mass ratio] 4 {ratio} [facility] NON-HDL CHOLESTEROL, CALCULATED 216 High NINF - 130 [facility] Triglyceride [Mass/Vol] 129 mg/dL NINF - 150 mg/dL [facility] VERY LOW DENSITY LIPOPROTEIN, CALCULATED 26 mg/dL NINF - 30 mg/dL [facility] MAGNESIUMon 06-15-2025 Magnesium [Mass/Vol] 2.2 mg/dL Normal 1.6-2.6 [facility] Comment on above: Result Comment: ORDE R COMMENTS:Higher values can be expected in females during menses. Performed By: #### L AB17, LAB18, LAB63, [id number] ####Flight Line Service Attendant: MIGUEL LEAL ([phone])[facility] ([facility])[address] [place] [address] [place] Magnesium [Mass/Vol]on 06-15 Interpretation and review of laboratory results Normal [facility] No Panel Informationon 06-15 Interpretation and review of laboratory results Abnormal [facility] Progress Noteon 06-15-2025 Progress Note Normal [facility] aPTT Coag (Bld) [Time]on aPTT Coag (PPP) [Time] 61.7 s High 20.0 - 30.5 s [facility] Interpretation and review of laboratory results Abnormal [facility] aPTT Coag (PPP) [Time] 47 s High 20.0 - 30.5 s [facility] Interpretation and review of laboratory results Abnormal [facility] aPTT Coag (PPP) [Time] 63.2 s High 20.0 - 30.5 s [facility] Interpretation and review of laboratory results Abnormal [facility] aPTT Coag (PPP) [Time] 39.3 s High 20.0 - 30.5 s [facility] Interpretation and review of laboratory results Abnormal [facility] APTTon 06-14-2025 aPTT Coag (Bld) [Time] 36.9 s High 20.0-30.5 [facility] Comment on above: Result Comment: ROCIO Bhandari COMMENTS:NOTE: The therapeutic time for Heparin anticoagulation, based on Xa activity inhibition, is an APTT of 46-80 seconds. Performed By: #### L [id number] ####Flight Line Service Attendant: MIGUEL LEAL ([phone])[facility] ([facility])[address] [place] [address] Absolute lymphocyte countOrd ered By: Hui Morel on 06-14-2025 Lymphocytes Auto (Unsp spec) [#/Vol] 2.43 10*3/uL 0.83-4.51 [facility] Absolute neutrophil countOrd ered By: Hui Morel on 06-14-2025 Neutrophils (Bld) [#/Vol] 2.4 10*3/uL 2.0-7.7 [facility] Activated partial thrombopla stin time (aPTT) in platelet poor plasma by coagulation aOrdered By: Efren Moss on 06-14-2025 aPTT Coag (PPP) [Time] 111.8 s High 24.1-36.2 [facility] Comment on above: CRITICAL VALUE MERCADO D TO [id number]/25/25 0145 Maxim Gurrola.RESULTS READ BACK BY SAME. Anion gap in Serum or Plasma Ordered By: Hui Maria Teresa on 06-14-2025 Anion gap [Moles/Vol] 11 mmol/L 5-[address] [facility] Automated lymphocyte count a s percentage of total leukocytesOrdered By: Hui Maria Teresa on 06-14-2025 Lymphocytes/100 WBC Auto (Unsp spec) 45.0 % High 19-41 [facility] BUN/creatinine ratioOrdered By: Hui Maria Teresa on 06-14-2025 Urea nitrogen/Creatinine [Mass ratio] 34.4 mg/mg High 10-20 [facility] Basophil percentageOrdered B y: Hui Morel on 06-14-2025 Basophils/100 WBC (Bld) 0.7 % 0-1 [facility] Bilirubin, totalOrdered By: [facility] Maria Teresa on 06-14-2025 Bilirubin [Mass/Vol] 0.24 mg/dL 0.00-1.30 [facility] CBC (HEMOGRAM)on 06-14-2025 Erythrocyte distribution width (RBC) [Ratio] 13.4 % Normal 11.5-15.0 [facility] Comment on above: Performed By: #### L AB294 ####Flight Line Service Attendant: MIGUEL LEAL ([phone])[address] Hematocrit (Bld) [Volume fraction] 40.1 % Normal 35.0-47.0 [facility] Comment on above: Performed By: #### L AB294 ####F[employer] Line Service Attendant: MIGUEL LEAL ([phone])[address] Hemoglobin (Bld) [Mass/Vol] 13.4 g/dL Normal 11.7-16.0 [facility] Comment on above: Performed By: #### L AB294 ####Flight Line Service Attendant: MIGUEL LEAL ([phone])[facility] ([facility])[address] [place] [address] MCH (RBC) [Entitic mass] 31.6 pg Normal 26.0-34.0 [facility] Comment on above: Performed By: #### L AB294 ####Flight Line Service Attendant: MIGUEL LEAL ([phone])[facility])[address] [place] [address] MCHC 33.4 % Normal 30.5-36.0 [facility] Comment on above: Performed By: #### L AB294 ####Flight Line Service Attendant: MIGUEL LEAL ([phone])[facility])[address] [place] [address] MCV (RBC) [Entitic vol] 94.6 fL Normal 77.0-99.0 [facility] Comment on above: Performed By: #### L AB294 ####Flight Line Service Attendant: MIGUEL LEAL ([phone])[facility] ([facility])[address] [place] [address] Platelet mean volume (Bld) [Entitic vol] 10.3 fL Normal 9.0-12.7 [facility] Comment on above: Performed By: #### L AB294 ####Flight Line Service Attendant: MIGUEL LEAL ([phone])[facility])[address] [place] [address] Platelets (Bld) [#/Vol] 236 10*3/uL Normal 140-440 [facility] Comment on above: Performed By: #### L AB294 ####Flight Line Service Attendant: MIGUEL LEAL ([phone])[facility])[address] [place] [address] RBC (Bld) [#/Vol] 4.24 10*6/uL Normal 3.80-5.20 [facility] Comment on above: Performed By: #### L AB294 ####Flight Line Service Attendant: MIGUEL LEAL ([phone])[facility] ([facility])[address] [place] [address] WBC (Bld) [#/Vol] 6.2 10*3/uL Normal 3.6-10.7 [facility] Comment on above: Performed By: #### L AB294 ####Flight Line Service Attendant: MIGUEL LEAL ([phone])[facility] ([facility])[address] [place] [address] CBC W/Diff, Automatedon 07-2 Absolute Neut Normal 2.0-7.7 [facility] Comment on above: Order Comment: Comme nts: If not done in prior 24 hours Result Comment: OK T O CANCEL BY TDEVEREAUX Performed By: #### L 300.3900, L100.0100 #### [facility] [address] [place], [address] Performed By: #### L 100.0100 #### [facility] [address] [place], [address] HCT Normal 37-47 [facility] Comment on above: Order Comment: Comme nts: If not done in prior 24 hours Result Comment: OK T O CANCEL BY TDEVEREAUX Performed By: #### L 300.3900, L100.0100 #### [facility] [address] [place], [address] Performed By: #### L 100.0100 #### [facility] [address] [place], [address] HGB Normal 12.0-15.0 [facility] Comment on above: Order Comment: Comme nts: If not done in prior 24 hours Result Comment: OK T O CANCEL BY TDEVEREAUX Performed By: #### L 300.3900, L100.0100 #### [facility] [address] [place], [address] Performed By: #### L 100.0100 #### [facility] [address] [place], [address] MCH Normal 27.0-32.0 [facility] Comment on above: Order Comment: Comme nts: If not done in prior 24 hours Result Comment: OK T O CANCEL BY TDEVEREAUX Performed By: #### L 300.3900, L100.0100 #### [facility] [address] [place], [address] Performed By: #### L 100.0100 #### [facility] [address] [place], [address] MCHC Normal 32-36 [facility] Comment on above: Order Comment: Comme nts: If not done in prior 24 hours Result Comment: OK T O CANCEL BY TDEVEREAUX Performed By: #### L 300.3900, L100.0100 #### [facility] [address] [place], [address] Performed By: #### L 100.0100 #### [facility] [address] [place], [address] MCV Normal 81-99 [facility] Comment on above: Order Comment: Comme nts: If not done in prior 24 hours Result Comment: OK T O CANCEL BY TDEVEREAUX Performed By: #### L 300.3900, L100.0100 #### [facility] [address] [place], [address] Performed By: #### L 100.0100 #### [facility] [address] [place], [address] NEUT% Normal 47-70 [facility] Comment on above: Order Comment: Comme nts: If not done in prior 24 hours Result Comment: OK T O CANCEL BY TDEVEREAUX Performed By: #### L 300.3900, L100.0100 #### [facility] [address] [place], [address] Performed By: #### L 100.0100 #### [facility] [address] [place], [address] PLT Normal 150-450 [facility] Comment on above: Order Comment: Comme nts: If not done in prior 24 hours Result Comment: OK T O CANCEL BY TDEVEREAUX Performed By: #### L 300.3900, L100.0100 #### [facility] [address] [place], [address] Performed By: #### L 100.0100 #### [facility] [address] [place], [address] RBC Normal 4.2-5.4 [facility] Comment on above: Order Comment: Comme nts: If not done in prior 24 hours Result Comment: OK T O CANCEL BY TDEVEREAUX Performed By: #### L 300.3900, L100.0100 #### [facility] [address] [place], [address] Performed By: #### L 100.0100 #### [facility] [address] [place], [address] RDW CV Normal 11.6-14.6 [facility] Comment on above: Order Comment: Comme nts: If not done in prior 24 hours Result Comment: OK T O CANCEL BY TDEVEREAUX Performed By: #### L 300.3900, L100.0100 #### [facility] [address] [place], [address] Performed By: #### L 100.0100 #### [facility] [address] [place], [address] RDW SD Normal 35.1-43.9 [facility] Comment on above: Order Comment: Comme nts: If not done in prior 24 hours Result Comment: OK T O CANCEL BY TDEVEREAUX Performed By: #### L 300.3900, L100.0100 #### [facility] [address] [place], [address] Performed By: #### L 100.0100 #### [facility] [address] [place], [address] WBC Normal 4.4-11.0 [facility] Comment on above: Order Comment: Comme nts: If not done in prior 24 hours Result Comment: OK T O CANCEL BY TDEVEREAUX Performed By: #### L 300.3900, L100.0100 #### [facility] [address] [place], [address] Performed By: #### L 100.0100 #### [facility] [address] [place], [address] Absolute Lymph 2.43 X10 3/uL Normal 0.83-4.51 [facility] Comment on above: Performed By: #### L 100.0100 #### [facility] [address] [place], [address] Absolute Neut 2.4 X10 3/uL Normal 2.0-7.7 [facility] Comment on above: Performed By: #### L 100.0100 #### [facility] [address] [place], [address] Basophils/100 WBC (Bld) 0.7 % Normal 0-1 [facility] Comment on above: Performed By: #### L 100.0100 #### [facility] [address] [place], [address] Eosinophils/100 WBC (Bld) 0.9 % Normal 0-5 [facility] Comment on above: Performed By: #### L 100.0100 #### [facility] [address] [place], [address] Erythrocyte distribution width (RBC) [Ratio] 13.3 % Normal 11.6-14.6 [facility] Comment on above: Performed By: #### L 100.0100 #### [facility] [address] [place], [address] Hematocrit (Bld) [Volume fraction] 36.1 % Low 37-47 [facility] Comment on above: Performed By: #### L 100.0100 #### [facility] [address] [place], [address] Hemoglobin (Bld) [Mass/Vol] 12.1 g/dL Normal 12.0-15.0 [facility] Comment on above: Performed By: #### L 100.0100 #### [facility] [address] [place], [address] IG% 0.400 Normal 0.0-0.9 [facility] Comment on above: Result Comment: IG% - Immature Granulocytes (promyelocytes, myelocytes and metamyelocytes) > 1% indicates that a LEFT SHIFT is Present. Performed By: #### L 100.0100 #### [facility] [address] [place], [address] Lymphocytes/100 WBC (Bld) 45.0 % High 19-41 [facility] Comment on above: Performed By: #### L 100.0100 #### [facility] [address] [place], [address] MCH (RBC) [Entitic mass] 31.8 pg Normal 27.0-32.0 [facility] Comment on above: Performed By: #### L 100.0100 #### [facility] [address] [place], [address] MCHC (RBC) [Mass/Vol] 33.5 g/dL Normal 32-[address] [facility] Comment on above: Performed By: #### L 100.0100 #### [facility] [address] [place], [address] MCV (RBC) [Entitic vol] 95.0 fL Normal 81-99 [facility] Comment on above: Performed By: #### L 100.0100 #### [facility] [address] [place], [address] Monocytes/100 WBC (Bld) 8.7 % Normal 0-10 [facility] Comment on above: Performed By: #### L 100.0100 #### [facility] [address] [place], [address] Neutrophils/100 WBC (Bld) 44.3 % Low 47-70 [facility] Comment on above: Performed By: #### L 100.0100 #### [facility] [address] [place], [address] Nucleated RBC (Bld) [#/Vol] 0 10*3/uL Normal 0-5 [facility] Comment on above: Performed By: #### L 100.0100 #### [facility] [address] [place], [address] Platelet mean volume (Bld) [Entitic vol] 10.5 fL Normal 6.2-12.0 [facility] Comment on above: Performed By: #### L 100.0100 #### [facility] [address] [place], [address] Platelets (Bld) [#/Vol] 220 10*3/uL Normal 150-450 [facility] Comment on above: Performed By: #### L 100.0100 #### [facility] [address] [place], [address] RBC (Bld) [#/Vol] 3.80 10*6/uL Low 4.2-5.4 [facility] Comment on above: Performed By: #### L 100.0100 #### [facility] [address] [place], [place], [address] RDW SD 46.9 fl High 35.1-43.9 [facility] Comment on above: Performed By: #### L 100.0100 #### [facility] [address] [place], [place], [id number] (665) WBC (Bld) [#/Vol] 5.4 10*3/uL Normal 4.4-11.0 [facility] Comment on above: Performed By: #### L 100.0100 #### [facility] [address] [place], [place], [address] CBC panel Auto (Bld)on 06-14 Erythrocyte distribution width (RBC) [Ratio] 13.4 % 11.5 - 15.0 % [facility] Hematocrit (Bld) [Volume fraction] 40.1 % 35.0 - 47.0 % [facility] Hemoglobin (Bld) [Mass/Vol] 13.4 g/dL 11.7 - 16.0 g/dL [facility] Interpretation and review of laboratory results Normal [facility] MCH (RBC) [Entitic mass] 31.6 pg 26.0 - 34.0 pg [facility] MCHC (RBC) [Mass/Vol] 33.4 % 30.5 - 36.0 % [facility] MCV (RBC) [Entitic vol] 94.6 fL 77.0 - 99.0 fL [facility] Platelet mean volume (Bld) [Entitic vol] 10.3 fL 9.0 - 12.7 fL [facility] Platelets (Bld) [#/Vol] 236 10*3/uL 140 - 440 10*3/uL [facility] RBC (Bld) [#/Vol] 4.24 10*6/uL 3.80 - 5.2 0 10*6/uL [facility] WBC (Bld) [#/Vol] 6.2 10*3/uL 3.6 - 10.7 10*3/uL [facility] CK TOTAL AND CKMBon 07-25-20 25 CK [Catalytic activity/Vol] 95 U/L Normal 30-185 [facility] Comment on above: Performed By: #### L [id number], [id number], LAB63, LAB17 ####Flight Line Service Attendant: MIGUEL LEAL ([phone])[facility])[address] [place] [address] CK.MB [Mass/Vol] 2.7 ng/mL Normal <=3.4 [facility] Comment on above: Result Comment: ROCIO R COMMENTS:If CK-MB is elevated and the ratio of CK-MB to total CK (relative index) is more than 3, then it is likely that the heart was damaged. A high CK with a relative index below this value suggests that skeletal muscles were damaged. Performed By: #### L [id number], [id number], LAB63, LAB17 ####Flight Line Service Attendant: MIGUEL LEAL ([phone])[facility] ([facility])[address] [place] [address] RELATIVE INDEX 2.8 % Normal <=3.0 [facility] Comment on above: Performed By: #### L [id number], [id number], LAB63, LAB17 ####Flight Line Service Attendant: MIGUEL LEAL ([phone])[address] CK.total/Creatine kinase.MB [Catalytic ratio]on 06-14-2025 CK [Catalytic activity/Vol] 95 U/L 30 - 185 U/L [facility] CK.MB [Mass/Vol] 2.7 ng/mL NINF - 3.4 ng/mL [facility] Interpretation and review of laboratory results Normal [facility] RELATIVE INDEX 2.8 % NINF - 3.0 % [facility] COMPREHENSIVE METABOLIC PANE [place] 06-14-2025 Albumin [Mass/Vol] 3.7 g/dL Normal 3.4-4.8 [facility] Comment on above: Performed By: #### L [id number], [id number], LAB63, LAB17 ####Flight Line Service Attendant: MIGUEL LEAL ([phone])[facility])[address] [place] [address] ALP [Catalytic activity/Vol] 50 U/L Normal 40-150 [facility] Comment on above: Performed By: #### L [id number], [id number], LAB63, LAB17 ####Flight Line Service Attendant: MIGUEL LEAL ([phone])[facility] [place] [address] ALT [Catalytic activity/Vol] U/L Normal <30 [facility] Comment on above: Performed By: #### L [id number], [id number], LAB63, LAB17 ####Flight Line Service Attendant: MIGUEL LEAL ([phone])[facility] ([facility])[address] [place] [address] Anion gap [Moles/Vol] 6 mmol/L Normal 3-13 [facility] Comment on above: Performed By: #### L [id number], [id number], LAB63, LAB17 ####Flight Line Service Attendant: MIGUEL LEAL ([phone])[facility] [place] [address] AST [Catalytic activity/Vol] 34 U/L High <34 [facility] Comment on above: Performed By: #### L [id number], [id number], LAB63, LAB17 ####F[employer] Line Service Attendant: MIGUEL LEAL ([phone])[facility] ([facility])[address] [place] [address] Bilirubin [Mass/Vol] 0.4 mg/dL Normal <1.2 [facility] Comment on above: Performed By: #### L [id number], [id number], LAB63, LAB17 ####F[employer] Line Service Attendant: MIGUEL LEAL ([phone])[facility] ([facility])[address] [place] [address] Calcium [Mass/Vol] 8.4 mg/dL Low 8.8-10.0 [facility] Comment on above: Performed By: #### L [id number], [id number], LAB63, LAB17 ####F[employer] Line Service Attendant: MIGUEL LEAL ([phone])[facility] ([facility])[address] [place] [address] [place] Chloride [Moles/Vol] 104 mmol/L Normal 98-107 [facility] Comment on above: Performed By: #### L [id number], [id number], LAB63, LAB17 ####Flight Line Service Attendant: MIGUEL LEAL ([phone])[facility] ([facility])[address] [place] [address] CO2 [Moles/Vol] 25 mmol/L Normal 23-31 [facility] Comment on above: Performed By: #### L [id number], [id number], LAB63, LAB17 ####F[employer] Line Service Attendant: MIGUEL LEAL ([phone])[facility] ([facility])[address] [place] [address] Creatinine [Mass/Vol] 0.62 mg/dL Normal 0.57-1.11 [facility] Comment on above: Performed By: #### L [id number], [id number], LAB63, LAB17 ####F[employer] Line Service Attendant: MIGUEL LEAL ([phone])[facility] ([facility])[address] [place] [address] GLOMERULAR FILTRATION RATE ML/MIN/1.73 SQ M.PREDICTED >90.0 Normal >60.0 [facility] Comment on above: Result Comment: Calc ulation based on the Chronic Kidney Disease Epidemiology Collaboration (CKD-EPI) equation refit without adjustment for race Performed By: #### L [id number], [id number], LAB63, LAB17 ####[employer] Line Service Attendant: MIGUEL LEAL ([phone])[facility] ([facility])[address] [place] [address] [place] Glucose [Mass/Vol] 102 mg/dL Normal 82-115 [facility] Comment on above: Performed By: #### L [id number], [id number], LAB63, LAB17 ####Flight Line Service Attendant: MIGUEL LEAL ([phone])[facility])[address] [place] [address] [place] Potassium [Moles/Vol] 3.9 mmol/L Normal 3.5-5.1 [facility] Comment on above: Result Comment: Plas ma potassium values may be up to 0.5 mmol/L lower than serum values. Performed By: #### L [id number], [id number], LAB63, LAB17 ####Flight Line Service Attendant: MIGUEL LEAL ([phone])[facility] ([facility])[address] [place] [address] Protein [Mass/Vol] 6.5 g/dL Normal 6.4-8.3 [facility] Comment on above: Performed By: #### L [id number], [id number], LAB63, LAB17 ####Flight Line Service Attendant: MIGUEL LEAL ([phone])[facility] ([facility] [place] [address] Sodium [Moles/Vol] 135 mmol/L Low 136-145 [facility] Comment on above: Performed By: #### L [id number], [id number], LAB63, LAB17 ####Flight Line Service Attendant: MIGUEL LEAL ([phone])[facility] ([facility] [place] [address] Urea nitrogen [Mass/Vol] 11 mg/dL Normal 9-23 [facility] Comment on above: Performed By: #### L [id number], [id number], LAB63, LAB17 ####Flight Line Service Attendant: MIGUEL LEAL ([phone])[facility] ([facility])[address] [place] [address] Calculated very low density lipoprotein (VLDL) cholesterol measurementOrdered By: Hui Morel on 06-14-2025 Calculated very low density lipoprotein (VLDL) cholesterol measurement 18 mg/dL 5-40 [facility] Carbon dioxide, total [Moles /volume] in Central venous bloodOrdered By: Hui Morel on 06-14-2025 CO2 [Moles/Vol] 23.9 mmol/L 21.0-32.0 [facility] Chloride assayOrdered By: Ankita Morel on 06-14-2025 Chloride [Moles/Vol] 103 mmol/L 98-108 [facility] Comprehensive Metabolic Prof ilon 06-14-2025 Albumin [Mass/Vol] 3.7 g/dL Normal 3.4-4.8 [facility] Comment on above: Performed By: #### L 100.0100 #### [facility] [address] [place], [address] Albumin/Globulin [Mass ratio] 1.7 {ratio} Normal 0.9-2.4 [facility] Comment on above: Performed By: #### L 100.0100 #### [facility] [address] [place], [address] ALK PHOS 46 U/L Normal 35-104 [facility] Comment on above: Performed By: #### L 100.0100 #### [facility] [address] [place], [address] ALT [Catalytic activity/Vol] 6 U/L Normal <=34 [facility] Comment on above: Performed By: #### L 100.0100 #### [facility] [address] [place], [address] AST [Catalytic activity/Vol] 28 U/L Normal <=31 [facility] Comment on above: Performed By: #### L 100.0100 #### [facility] [address] [place], [address] Bilirubin [Mass/Vol] 0.24 mg/dL Normal 0.00-1.30 [facility] Comment on above: Performed By: #### L 100.0100 #### [facility] [address] [place], [address] BUN/CRE 34.4 RATIO High 10-20 [facility] Comment on above: Performed By: #### L 100.0100 #### [facility] [address] [place], [address] Calcium [Mass/Vol] 8.4 mg/dL Normal 7.6-11.0 [facility] Comment on above: Performed By: #### L 100.0100 #### [facility] [address] [place], [address] Chloride [Moles/Vol] 103 mmol/L Normal 98-108 [facility] Comment on above: Performed By: #### L 100.0100 #### [facility] [address] [place], [address] CO2 [Moles/Vol] 23.9 mmol/L Normal 21.0-32.0 [facility] Comment on above: Performed By: #### L 100.0100 #### [facility] [address] [place], [address] Creatinine [Mass/Vol] 0.56 mg/dL Low 0.70-1.[address] [facility] Comment on above: Performed By: #### L 100.0100 #### [facility] [address] [place], [address] ECRCL 51.04 ml/min Normal 50-250 [facility] Comment on above: Performed By: #### L 100.0100 #### [facility] [address] [place], [address] GAP 11 Normal 5-15 [facility] Comment on above: Performed By: #### L 100.0100 #### [facility] [address] [place], [address] GFR/1.73 sq M.predicted among non-blacks MDRD (S/P/Bld) [Vol rate/Area] 96 mL/min/{1.73_m2} Normal >60 [facility] Comment on above: Result Comment: mL/m in/1.73m2 CKD-EPI Creatinine Equation (2020) Performed By: #### L 100.0100 #### [facility] [address] [place], [address] Globulin (S) [Mass/Vol] 2.2 g/dL Normal 2.2-4.2 [facility] Comment on above: Performed By: #### L 100.0100 #### [facility] [address] [place], [address] Glucose [Mass/Vol] 96 mg/dL Normal 70-99 [facility] Comment on above: Performed By: #### L 100.0100 #### [facility] [address] [place], [address] Potassium [Moles/Vol] 3.9 mmol/L Normal 3.3-5.[address] [facility] Comment on above: Performed By: #### L 100.0100 #### [facility] [address] [place], [address] Sodium [Moles/Vol] 137 mmol/L Normal 133-145 [facility] Comment on above: Performed By: #### L 100.0100 #### [facility] [address] [place], [address] T PROT 5.9 g/dL Normal 5.9-8.4 [facility] Comment on above: Performed By: #### L 100.0100 #### [facility] [address] [place], [address] Urea nitrogen [Mass/Vol] 19 mg/dL Normal 4-19 [facility] Comment on above: Performed By: #### L 100.0100 #### [facility] [address] [place], [address] Comprehensive metabolic 1998 panelon 06-14-2025 Albumin [Mass/Vol] 3.7 g/dL 3.4 - 4.8 g/dL [facility] ALP [Catalytic activity/Vol] 50 U/L 40 - 150 U/L [facility] ALT [Catalytic activity/Vol] U/L NINF - 30 U/L [facility] Anion gap [Moles/Vol] 6 mmol/L 3 - 13 mmol/L [facility] AST [Catalytic activity/Vol] 34 U/L High NINF - 34 U/L [facility] Bilirubin [Mass/Vol] 0.4 mg/dL NINF - 1.2 mg/dL [facility] Calcium [Mass/Vol] 8.4 mg/dL Low 8.8 - 10. 0 mg/dL [facility] Chloride [Moles/Vol] 104 mmol/L 98 - 10 7 mmol/L [facility] CO2 [Moles/Vol] 25 mmol/L 23 - 31 mmol/L [facility] Creatinine [Mass/Vol] 0.62 mg/dL 0.57 - 1.11 mg/dL [facility] GFR/1.73 sq M.predicted (S/P/Bld) [Vol rate/Area] - PINF [facility] Glucose [Mass/Vol] 102 mg/dL 82 - 115 mg/dL [facility] Interpretation and review of laboratory results Abnormal [facility] Potassium [Moles/Vol] 3.9 mmol/L 3.5 - 5.1 mmol/L [facility] Protein [Mass/Vol] 6.5 g/dL 6.4 - 8.3 g/dL [facility] Sodium [Moles/Vol] 135 mmol/L Low 136 - 145 mmol/L [facility] Urea nitrogen [Mass/Vol] 11 mg/dL 9 - 23 mg/dL [facility] Consultation - Cardiologyon 06-14-2025 Consultation - Cardiology [facility] Medical Records Department [address] [place] [address] Consultation - Cardiology 06/14/25 0741 MR#: [id number] Acct: [id number] Name: RICHIE ARMAS Rep #: [id number] : 1950 75 From: Edil Hong MD PCP: Dr. Narinder Crum MD Status:ADM IN Location: ICU ICU03-1 [...] for cardiology consultation. She is currently pain-free. [facility] Medical History Chronic idiopathic constipation CKD (chronic [...] (From Phenergan) AdvReac Other Verified 06/13/25 17:31 Jrlzzcb-SKG-FrC Reductase AdvReac Pain in Verified 06/13/25 17:31 [...] Integumentary Integumenta (more content not included)... Normal [facility] ECG 12-LEADon 06-14-2025 ECG 12-LEAD IMPRESSION: Sinus rhythm Ventricular premature complex Minimal ST depression, anterolateral leads Electronically Signed On 06-14-2025 17:05:24 EDT by Thierno Germain [facility] Eosinophil percentageOrdered By: White on 06-14-2025 Eosinophils/100 WBC (Bld) 0.9 % 0-5 [facility] Erythrocyte distribution wid th ratioOrdered By: White on 06-14-2025 Erythrocyte distribution width (RBC) [Ratio] 13.3 % 11.6-14.6 [facility] Erythrocyte distribution wid th standard deviationOrdered By: Hui White on 06-14-2025 Erythrocyte distribution width (RBC) [Ratio] 46.9 fl High 35.1-43.9 [facility] Glomerular filtration rate ( GFR) estimation/1.73 sq m using serum, plasma, or whole bOrdered By: Hui White on 06-14-2025 GFR/1.73 sq M.predicted among non-blacks MDRD (S/P/Bld) [Vol rate/Area] 96 mL/min/{1.73_m2} >60 [facility] Comment on above: mL/min/1.73m2 CKD-EP I Creatinine Equation (2020) HIGH SENSITIVITY TROPONIN, S ERIAL BASELINEon 06-14-2025 TROPONIN HS SERIAL BASELINE 304 ng/L Critically high <=14 [facility] Comment on above: Result Comment: In i ndividuals presenting with symptoms > 2h, a baseline troponin <= 5 ng/L suggests acutecardiac injury is unlikely and further serial testing is generally not indicated. Performed By: #### L [id number], [id number], LAB63, LAB17 ####Flight Line Service Attendant: MIGUEL LEAL ([phone])[address] HIGH SENSITIVITY TROPONIN, S ERIAL, SECOND TESTon 06-14-2025 2H TROPONIN HS (SERIAL 2ND TROPONIN) 318 ng/L Critically high <=14 [facility] Comment on above: Result Comment: 2h t roponin (2nd troponin) samples collected between 1h 40 min and 2h and 20 min of the baseline collection time can be utilized to interpret delta troponins as per [employer] algorithms. Samples collected outside this timeframe need to be interpreted clinically.Rising or falling troponin delta between 2 ??? 15 ng/L as compared to baseline value requires a 3rd serial troponin Performed By: #### L [id number] ####Flight Line Service Attendant: MIGUEL LEAL ([phone])[facility] ([facility])[address] [place] [address] HIGH SENSITIVITY TROPONIN, S ERIAL, THIRD TESTon 06-14-2025 4H TROPONIN HS (SERIAL 3RD TROPONIN) 281 ng/L Critically high <=14 [facility] Comment on above: Result Comment: 4h t roponin (3rd troponin) samples collected between 1h 40 min and 2h and 20 min of the 2h troponin collection time can be utilized to interpret delta troponins as per [facility] algorithms. Samples collected outside this timeframe need to be interpreted clinically.Rising or falling troponin delta greater than 15 ng/L as compared to 2h troponin value issignificant for acute cardiac injury. Performed By: #### L [id number] ####Flight Line Service Attendant: MIGUEL LEAL ([phone])[facility] ([facility])[address] [place] [address] Hematocrit Auto (Bld) [Volum e fraction]Ordered By: Hui Morel on 06-14-2025 Hematocrit (Bld) [Volume fraction] 36.1 % Low 37-47 [facility] Hemoglobin measurementOrdere d By: Hui Morel on 06-14-2025 Hemoglobin (Bld) [Mass/Vol] 12.1 g/dL 12.0-15.0 [facility] Immature granulocytes/100 WB C Auto (Bld)Ordered By: Hui Morel on 06-14-2025 Immature granulocytes/100 WBC (Bld) 0.400 % 0.0-0.9 [facility] Comment on above: IG% - Immature Granu locytes (promyelocytes, myelocytes and metamyelocytes) > 1% indicates that a LEFT SHIFT is Present. LDL calc ser/plasOrdered By: Hui Morel on 06-14-2025 Cholesterol in LDL [Mass/Vol] 166 mg/dL [facility] Comment on above: Ckrnkhbimj=484-898 m g/dL & Higher Fbma=322 mg/dL or greater Laboratory - Chemistry and C hemistry - challengeon 06-14-2025 TSH Qn 2.71 m[IU]/L [facility] Laboratory - Chemistry and C hemistry - challengeOrdered By: Hui Morel on 06-14-2025 AST [Catalytic activity/Vol] 28 U/L <32 [facility] Lipid Profileon 06-14-2025 CHOL:HDL 2.92 Normal [facility] Comment on above: Performed By: #### L 100.0100 #### [facility] [address] [place], [address] Cholesterol [Mass/Vol] 280 mg/dL High <=200 [facility] Comment on above: Result Comment: Chol esterol level, Desirable <200 mg/dL Borderline high cholesterol 200-239 mg/dL High cholesterol >=240 mg/dL Recommendations of the NCEP Adult Treatment Panel for the following risk-cutoff thresholds for the [place] population. Performed By: #### L 100.0100 #### [facility] [address] [place], [address] Cholesterol in HDL [Mass/Vol] 96 mg/dL Normal [facility] Comment on above: Result Comment: Yudy onal Cholesterol Education Program (NCEP) guidelines: <40 mg/dL: Low HDL-cholesterol (major risk factor for CHD) >= 60 mg/dL: High HDL-cholesterol (negative risk factor for CHD) HDL-cholesterol is affected by a number of factors, e.g. smoking, exercise, hormones, sex and age. Performed By: #### L 100.0100 #### [facility] [address] [place], [address] Cholesterol in LDL [Mass/Vol] 166 mg/dL Normal [facility] Comment on above: Result Comment: Bord kkrzce=864-552 mg/dL Higher Wbaz=147 mg/dL or greater Performed By: #### L 100.0100 #### [facility] [address] [place], [address] Cholesterol in VLDL [Mass/Vol] 18 mg/dL Normal 5-40 [facility] Comment on above: Performed By: #### L 100.0100 #### [facility] [address] [place], [address] Triglyceride [Mass/Vol] 89 mg/dL Normal [facility] Comment on above: Result Comment: The drugs N-Acetylcysteine and Metamizole may falsely depress this assay. Normal range: <150 mg/dL Borderline High: 150-199 mg/dL High: 200-499 mg/dL Very High: >500 mg/dL Performed By: #### L 100.0100 #### [facility] [address] [place], [address] MCV (mean corpuscular volume ) determinationOrdered By: Hui White on 06-14-2025 MCV (RBC) [Entitic vol] 95.0 fL 81-99 [facility] Mean corpuscular hemoglobin (MCH) determinationOrdered By: Hui White on 06-14-2025 MCH (RBC) [Entitic mass] 31.8 pg 27.0-32.0 [facility] Mean corpuscular hemoglobin concentration (MCHC) determinationOrdered By: Hui White on 06-14-2025 MCHC (RBC) [Mass/Vol] 33.5 g/dL 32-[address] [facility] Mean platelet volume determi nationOrdered By: Hui White on 06-14-2025 Platelet mean volume (Bld) [Entitic vol] 10.5 fL 6.2-12.0 [facility] Monocyte percentageOrdered B y: Hui White on 06-14-2025 Monocytes/100 WBC (Bld) 8.7 % 0-10 [facility] Neutrophil percentageOrdered By: [facility] White on 06-14-2025 Neutrophils/100 WBC (Bld) 44.3 % Low 47-70 [facility] No Panel Informationon 06-14 4h Troponin HS (Serial 3rd Troponin) 281 ng/L Critically high NINF - 14 ng/L [facility] Interpretation and review of laboratory results Abnormal [facility] [employer] 2h Troponin HS (Serial 2nd Troponin) 318 ng/L Critically high NINF - 14 ng/L [facility] Interpretation and review of laboratory results Abnormal [facility] [employer] CV EPIPHANY [facility] No Panel InformationOrdered By: Preethi Pina on 06-14-2025 Interpretation and review of laboratory results Abnormal [facility] Troponin HS Serial Baseline 304 ng/L Critically high NINF - 14 ng/L [facility] [employer] No Panel InformationOrdered By: Thierno Germain on 06-14-2025 P [place] 61 degrees [facility] Work Phone: [place] Interval 157 ms [employer] Work Phone: QRS [place] 49 degrees [facility] Work Phone: QRSD Interval 86 ms [facility] Work Phone: QT Interval 376 ms [facility] Work Phone: QTC Interval 419 ms [facility] Work Phone: T Wave [place] 35 degrees [facility] [employer] Work Phone: [facility] Work Phone: Nucleated red blood cell per centageOrdered By: Hui Morel on 06-14-2025 Nucleated RBC/100 WBC (Bld) [Ratio] 0 % 0-5 [facility] Partial Thromboplast Timeon 06-14-2025 aPTT Coag (Bld) [Time] 111.8 s Invalid Interpretation Code 24.1-36.2 [facility] Comment on above: Result Comment: CRIT ICAL VALUE CALLED TO CWOBECK 06/14/25 0145 Maxim Gurrola. RESULTS READ BACK BY SAME. Performed By: #### L 500.2500, L501.4021, L100.0100 #### [facility] [address] [place], [place], [id number] Platelet countOrdered By: Ankita glennicole Morel on 06-14-2025 Platelets (Bld) [#/Vol] 220 10*3/uL 150-450 [facility] Potassium measurement (mass/ volume)Ordered By: Hui Morel on 06-14-2025 Potassium (Unsp spec) [Mass/Vol] 3.9 mmol/L 3.3-5.1 [facility] Prothrombin Time w/INRon INR Normal [facility] Comment on above: Order Comment: Comme nts: If not done in prior 24 hours Result Comment: OK T O CANCEL BY TDEVEREAUX Performed By: #### L 300.3900, L100.0100 #### [facility] [address] [place], [place], [address] PROTIME Normal 11.7-14.9 [facility] Comment on above: Order Comment: Comme nts: If not done in prior 24 hours Result Comment: OK T O CANCEL BY TDEVEREAUX Performed By: #### L 300.3900, L100.0100 #### [facility] [place], [address] RBC Auto (Bld) [#/Vol]Ordere d By: Hui Morel on 06-14-2025 RBC (Bld) [#/Vol] 3.80 10*6/uL Low 4.2-5.4 [facility] Screening total cholesterol/ high density lipoprotein (HDL) cholesterol ratioOrdered By: Hui Morel on 06-14-2025 Cholesterol.total/Mel sterol in HDL [Mass ratio] 2.92 {ratio} [facility] Serum creatinine measurement (mass/volume)Ordered By: Hui Morel on 06-14-2025 Creatinine [Mass/Vol] 0.56 mg/dL Low 0.70-1.[address] [facility] Serum globulin measurementOr dered By: Hui Morel 06-14-2025 Globulin (S) [Mass/Vol] 2.2 g/dL 2.2-4.2 [facility] Serum glucose measurement (m ass/volume)Ordered By: Hui Morel on 06-14-2025 Glucose [Mass/Vol] 96 mg/dL 70-99 [facility] Serum or plasma alanine carbajal otransferase (ALT) measurementOrdered By: Hui Morel 06-14-2025 ALT [Catalytic activity/Vol] 6 U/L <35 [facility] Serum or plasma albumin jill urement (mass/volume)Ordered By: Hui Morel 06-14-2025 Albumin [Mass/Vol] 3.7 g/dL 3.4-4.8 [facility] Serum or plasma albumin/glob ulin mass ratioOrdered By: Hui Morel 06-14-2025 Albumin/Globulin [Mass ratio] 1.7 {ratio} 0.9-2.4 [facility] Serum or plasma alkaline kal sphatase measurementOrdered By: Hui Morel 06-14-2025 ALP [Catalytic activity/Vol] 46 U/L 35-104 [facility] Serum or plasma calcium jill urement (mass/volume)Ordered By: Hui Morel 06-14-2025 Calcium [Mass/Vol] 8.4 mg/dL 7.6-11.0 [facility] Serum or plasma cholesterol in HDL measurement (mass/volume)Ordered By: Hui Morel on 06-14-2025 Cholesterol in HDL [Mass/Vol] 96 mg/dL >40 [facility] Comment on above: National Cholesterol Education Program (NCEP) guidelines:<40 mg/dL: Low HDL-cholesterol (major risk factor for CHD)>= 60 mg/dL: High HDL-cholesterol (negative risk factor for CHD)HDL-cholesterol is affected by a number of factors, e.g. smoking, exercise, hormones, sex and age. Serum or plasma cholesterol measurement (mass/volume)Ordered By: Hui Morel on 06-14-2025 Cholesterol [Mass/Vol] 280 mg/dL High <201 [facility] Comment on above: Cholesterol level, D esirable <200 mg/dLBorderline high cholesterol 200-239 mg/dLHigh cholesterol >=240 mg/dLRecommendations of the NCEP Adult Treatment Panel for the following risk-cutoff thresholds for the [place] population. Serum or plasma urea nitroge n measurement (mass/volume)Ordered By: Hui Morel on 06-14-2025 Urea nitrogen [Mass/Vol] 19 mg/dL 4-19 [facility] Sodium levelOrdered By: Megan Morel on 06-14-2025 Sodium [Moles/Vol] 137 mmol/L 133-145 [facility] THYROID STIMULATING HORMONEo n 06-14-2025 THYROID STIMULATING HORMONE 2.71 uIU/mL Normal 0.35-4.94 [facility] Comment on above: Performed By: #### L [id number], [id number], LAB63, LAB17 ####Flight Line Service Attendant: MIGUEL LEAL ([phone])[facility] ([facility] TSH Qnon 06-14-2025 Interpretation and review of laboratory results Normal [facility] Total proteinOrdered By: Yonas Morel on 06-14-2025 Protein [Mass/Vol] 5.9 g/dL 5.9-8.4 [facility] Triglycerides measurementOrd ered By: Hui Morel on 06-14-2025 Triglyceride [Mass/Vol] 89 mg/dL <199 [facility] Comment on above: The drugs N-Acetylcy steine and Metamizole may falsely depress this assay. Normal range: <150 mg/dLBorderline High: 150-199 mg/dLHigh: 200-499 mg/dLVery High: >500 mg/dL Troponin T HS 2 HRon 025 Trop T High Sen 88 ng/L Invalid Interpretation Code <=14 [facility] Comment on above: Result Comment: [...] same. Performed By: #### L 499.0042 #### [facility] [address] [place], [address] Troponin T HS 4 HRon 025 Trop T High Sen 114 ng/L Invalid Interpretation Code <=14 [facility] Comment on above: Result Comment: Crit ical Result(s) Called at 0137: by:??NBURNS TO TDEVERUEAX Results read back by same. Performed By: #### L 500.2500, L501.4021, L100.0100 #### [facility] [address] [place], [place], [id number] Troponin T.cardiac [Mass/vol ume] in Serum or Plasma by High sensitivity methodOrdered By: Efren Moss on 06-14-2025 Troponin T.cardiac High sensitivity method [Mass/Vol] 114 ng/L High <14 [facility] Comment on above: Critical Result(s) C alled at 0137: by: NBURNS TO TDEVERUEAX Results read back by same. Vital signsOrdered By: Juarez Germain on 06-14-2025 Heart rate 75 /min bpm [employer] Work Phone: White blood cell (WBC) count Ordered By: Hui Morel on 06-14-2025 WBC (Bld) [#/Vol] 5.4 10*3/uL 4.4-11.0 [facility] aPTT Coag (Bld) [Time]on aPTT Coag (PPP) [Time] 36.9 s High 20.0 - 30.5 s [facility] Interpretation and review of laboratory results Abnormal [facility] 12 Lead EKGon 06-13-2025 12 Lead EKG [facility] Cardiovascular Services [address] [place] [address] 12 Lead EKG 06/13/25 1740 MR#: [id number] Acct: [id number] Name: RICHIE ARMAS Rep #: [id number] : 1950 [id number] From: Edil Hong MD Attending Dr: Dr. Thelma Hamm DO Status: D IS IN Ordering Dr: [...] ECG Confirmed by EDIL HONG MD ([id number]), news videotape editor ENZO PATE ([id number]) on 06/17/2025 9:41:04 AM Referred By: AJAY Confirmed By: EDIL HONG MD 06/17/25 0941 Date Edil Hong MD CC: Dr. Hui Morel MD; Dr. Narinder Crum MD; Dr. Thelma Hamm DO Signed Normal [facility] Absolute lymphocyte countOrd ered By: Efren Moss on 06-13-2025 Lymphocytes Auto (Unsp spec) [#/Vol] 1.92 10*3/uL 0.83-4.51 [facility] Absolute neutrophil countOrd ered By: Efrenconrado Moss on 06-13-2025 Neutrophils (Bld) [#/Vol] 3.2 10*3/uL 2.0-7.7 [facility] Anion gap in Serum or Plasma Ordered By: Efrenconrado Moss on 06-13-2025 Anion gap [Moles/Vol] 11 mmol/L 5-[address] [facility] Automated lymphocyte count a s percentage of total leukocytesOrdered By: Efren Moss on 06-13-2025 Lymphocytes/100 WBC Auto (Unsp spec) 34.0 % 19-41 [facility] BUN/creatinine ratioOrdered By: Efrenconrado Moss on 06-13-2025 Urea nitrogen/Creatinine [Mass ratio] 32.4 mg/mg High 10- [facility] Basic Metabolic Profile (BMP )on 06-13-2025 BUN/CRE 32.4 RATIO High - [facility] Comment on above: Performed By: #### L 500.2500, L501.4021, L100.0100 #### [facility] [address] [place], [address] Calcium [Mass/Vol] 9.4 mg/dL Normal 7.6-11.0 [facility] Comment on above: Performed By: #### L 500.2500, L501.4021, L100.0100 #### [facility] [address] [place], [address] Chloride [Moles/Vol] 99 mmol/L Normal 98-108 [facility] Comment on above: Performed By: #### L 500.2500, L501.4021, L100.0100 #### [facility] [address] [place], [address] CO2 [Moles/Vol] 26.9 mmol/L Normal 21.0-32.0 [facility] Comment on above: Performed By: #### L 500.2500, L501.4021, L100.0100 #### [facility] [address] [place], [address] Creatinine [Mass/Vol] 0.71 mg/dL Normal 0.70-1.[address] [facility] Comment on above: Performed By: #### L 500.2500, L501.4021, L100.0100 #### [facility] [address] [place], [address] ECRCL 51.04 ml/min Normal 50-250 [facility] Comment on above: Performed By: #### L 500.2500, L501.4021, L100.0100 #### [facility] [address] [place], [address] GAP 11 Normal 5-15 [facility] Comment on above: Performed By: #### L 500.2500, L501.4021, L100.0100 #### [facility] [address] [place], [address] GFR/1.73 sq M.predicted among non-blacks MDRD (S/P/Bld) [Vol rate/Area] 89 mL/min/{1.73_m2} Normal >60 [facility] Comment on above: Result Comment: mL/m in/1.73m2 CKD-EPI Creatinine Equation (2020) Performed By: #### L 500.2500, L501.4021, L100.0100 #### [facility] [address] [place], [address] Glucose [Mass/Vol] 112 mg/dL High 70-99 [facility] Comment on above: Performed By: #### L 500.2500, L501.4021, L100.0100 #### [facility] [address] [place], [address] Potassium [Moles/Vol] 4.4 mmol/L Normal 3.3-5.[address] [facility] Comment on above: Performed By: #### L 500.2500, L501.4021, L100.0100 #### [facility] [address] [place], [address] Sodium [Moles/Vol] 136 mmol/L Normal 133-145 [facility] Comment on above: Performed By: #### L 500.2500, L501.4021, L100.0100 #### [facility] [address] [place], [address] Urea nitrogen [Mass/Vol] 23 mg/dL High 4-19 [facility] Comment on above: Performed By: #### L 500.2500, L501.4021, L100.0100 #### [facility] [address] [place], [address] Basophil percentageOrdered B y: Efren Moss on 06-13-2024 Basophils/100 WBC (Bld) 0.5 % 0-1 [facility] CBC W/Diff, Automatedon 05-22 Absolute Lymph 1.92 X10 3/uL Normal 0.83-4.51 [facility] Comment on above: Order Comment: Comme nts: If not done in prior 24 hours Performed By: #### L 500.2500, L501.4021, L100.0100 #### [facility] [address] [place], [address] Absolute Neut 3.2 X10 3/uL Normal 2.0-7.7 [facility] Comment on above: Order Comment: Comme nts: If not done in prior 24 hours Performed By: #### L 500.2500, L501.4021, L100.0100 #### [facility] [address] [place], [address] Basophils/100 WBC (Bld) 0.5 % Normal 0-1 [facility] Comment on above: Order Comment: Comme nts: If not done in prior 24 hours Performed By: #### L 500.2500, L501.4021, L100.0100 #### [facility] [address] [place], [address] Eosinophils/100 WBC (Bld) 0.5 % Normal 0-5 [facility] Comment on above: Order Comment: Comme nts: If not done in prior 24 hours Performed By: #### L 500.2500, L501.4021, L100.0100 #### [facility] [address] [place], [address] Erythrocyte distribution width (RBC) [Ratio] 13.5 % Normal 11.6-14.6 [facility] Comment on above: Order Comment: Comme nts: If not done in prior 24 hours Performed By: #### L 500.2500, L501.4021, L100.0100 #### [facility] [address] [place], [address] Hematocrit (Bld) [Volume fraction] 39.1 % Normal 37-47 [facility] Comment on above: Order Comment: Comme nts: If not done in prior 24 hours Performed By: #### L 500.2500, L501.4021, L100.0100 #### [facility] [address] [place], [address] Hemoglobin (Bld) [Mass/Vol] 12.7 g/dL Normal 12.0-15.0 [facility] Comment on above: Order Comment: Comme nts: If not done in prior 24 hours Performed By: #### L 500.2500, L501.4021, L100.0100 #### [facility] [address] [place], [address] IG% 0.200 Normal 0.0-0.9 [facility] Comment on above: Order Comment: Comme nts: If not done in prior 24 hours Result Comment: IG% - Immature Granulocytes (promyelocytes, myelocytes and metamyelocytes) > 1% indicates that a LEFT SHIFT is Present. Performed By: #### L 500.2500, L501.4021, L100.0100 #### [facility] [address] [place], [address] Lymphocytes/100 WBC (Bld) 34.0 % Normal 19-41 [facility] Comment on above: Order Comment: Comme nts: If not done in prior 24 hours Performed By: #### L 500.2500, L501.4021, L100.0100 #### [facility] [address] [place], [address] MCH (RBC) [Entitic mass] 31.4 pg Normal 27.0-32.0 [facility] Comment on above: Order Comment: Comme nts: If not done in prior 24 hours Performed By: #### L 500.2500, L501.4021, L100.0100 #### [facility] [address] [place], [address] MCHC (RBC) [Mass/Vol] 32.5 g/dL Normal 32-[address] [facility] Comment on above: Order Comment: Comme nts: If not done in prior 24 hours Performed By: #### L 500.2500, L501.4021, L100.0100 #### [facility] [address] [place], [address] MCV (RBC) [Entitic vol] 96.5 fL Normal 81-99 [facility] Comment on above: Order Comment: Comme nts: If not done in prior 24 hours Performed By: #### L 500.2500, L501.4021, L100.0100 #### [facility] [address] [place], [address] Monocytes/100 WBC (Bld) 9.0 % Normal 0-10 [facility] Comment on above: Order Comment: Comme nts: If not done in prior 24 hours Performed By: #### L 500.2500, L501.4021, L100.0100 #### [facility] [address] [place], [address] Neutrophils/100 WBC (Bld) 55.8 % Normal 47-70 [facility] Comment on above: Order Comment: Comme nts: If not done in prior 24 hours Performed By: #### L 500.2500, L501.4021, L100.0100 #### [facility] [address] [place], [address] Nucleated RBC (Bld) [#/Vol] 0 10*3/uL Normal 0-5 [facility] Comment on above: Order Comment: Comme nts: If not done in prior 24 hours Performed By: #### L 500.2500, L501.4021, L100.0100 #### [facility] [address] [place], [address] Platelet mean volume (Bld) [Entitic vol] 10.4 fL Normal 6.2-12.0 [facility] Comment on above: Order Comment: Comme nts: If not done in prior 24 hours Performed By: #### L 500.2500, L501.4021, L100.0100 #### [facility] [address] [place], [address] Platelets (Bld) [#/Vol] 241 10*3/uL Normal 150-450 [facility] Comment on above: Order Comment: Comme nts: If not done in prior 24 hours Performed By: #### L 500.2500, L501.4021, L100.0100 #### [facility] [address] [place], [address] RBC (Bld) [#/Vol] 4.05 10*6/uL Low 4.2-5.4 [facility] Comment on above: Order Comment: Comme nts: If not done in prior 24 hours Performed By: #### L 500.2500, L501.4021, L100.0100 #### [facility] [address] [place], [address] RDW SD 48.6 fl High 35.1-43.9 [facility] Comment on above: Order Comment: Comme nts: If not done in prior 24 hours Performed By: #### L 500.2500, L501.4021, L100.0100 #### [facility] [address] [place], [address] WBC (Bld) [#/Vol] 5.7 10*3/uL Normal 4.4-11.0 [facility] Comment on above: Order Comment: Comme nts: If not done in prior 24 hours Performed By: #### L 500.2500, L501.4021, L100.0100 #### [facility] [address] [place], [address] Absolute Lymph 2.31 X10 3/uL Normal 0.83-4.51 [facility] Comment on above: Performed By: #### L 500.2500, L501.4021, L100.0100 #### [facility] [address] [place], [address] Absolute Neut 3.4 X10 3/uL Normal 2.0-7.7 [facility] Comment on above: Performed By: #### L 500.2500, L501.4021, L100.0100 #### [facility] [address] [place], [address] Basophils/100 WBC (Bld) 0.5 % Normal 0-1 [facility] Comment on above: Performed By: #### L 500.2500, L501.4021, L100.0100 #### [facility] [address] [place], [address] Eosinophils/100 WBC (Bld) 0.6 % Normal 0-5 [facility] Comment on above: Performed By: #### L 500.2500, L501.4021, L100.0100 #### [facility] [address] [place], [address] Erythrocyte distribution width (RBC) [Ratio] 13.5 % Normal 11.6-14.6 [facility] Comment on above: Performed By: #### L 500.2500, L501.4021, L100.0100 #### [facility] [address] [place], [address] Hematocrit (Bld) [Volume fraction] 41.6 % Normal 37-47 [facility] Comment on above: Performed By: #### L 500.2500, L501.4021, L100.0100 #### [facility] [address] [place], [address] Hemoglobin (Bld) [Mass/Vol] 13.6 g/dL Normal 12.0-15.0 [facility] Comment on above: Performed By: #### L 500.2500, L501.4021, L100.0100 #### [facility] [address] [place], [address] IG% 0.300 Normal 0.0-0.9 [facility] Comment on above: Result Comment: IG% - Immature Granulocytes (promyelocytes, myelocytes and metamyelocytes) > 1% indicates that a LEFT SHIFT is Present. Performed By: #### L 500.2500, L501.4021, L100.0100 #### [facility] [address] [place], [address] Lymphocytes/100 WBC (Bld) 36.0 % Normal 19-41 [facility] Comment on above: Performed By: #### L 500.2500, L501.4021, L100.0100 #### [facility] [address] [place], [address] MCH (RBC) [Entitic mass] 31.5 pg Normal 27.0-32.0 [facility] Comment on above: Performed By: #### L 500.2500, L501.4021, L100.0100 #### [facility] [address], [address] MCHC (RBC) [Mass/Vol] 32.7 g/dL Normal 32-[address] [facility] Comment on above: Performed By: #### L 500.2500, L501.4021, L100.0100 #### [facility] [address] [place], [address] MCV (RBC) [Entitic vol] 96.3 fL Normal 81-99 [facility] Comment on above: Performed By: #### L 500.2500, L501.4021, L100.0100 #### [facility] [address] [place], [address] Monocytes/100 WBC (Bld) 8.9 % Normal 0-10 [facility] Comment on above: Performed By: #### L 500.2500, L501.4021, L100.0100 #### [facility] [address] [place], [address] Neutrophils/100 WBC (Bld) 53.7 % Normal 47-70 [facility] Comment on above: Performed By: #### L 500.2500, L501.4021, L100.0100 #### [facility] [address] [place], [address] Nucleated RBC (Bld) [#/Vol] 0 10*3/uL Normal 0-5 [facility] Comment on above: Performed By: #### L 500.2500, L501.4021, L100.0100 #### [facility] [address] [place], [address] Platelet mean volume (Bld) [Entitic vol] 10.6 fL Normal 6.2-12.0 [facility] Comment on above: Performed By: #### L 500.2500, L501.4021, L100.0100 #### [facility] [address] [place], [address] Platelets (Bld) [#/Vol] 264 10*3/uL Normal 150-450 [facility] Comment on above: Performed By: #### L 500.2500, L501.4021, L100.0100 #### [facility] [address] [place], [address] RBC (Bld) [#/Vol] 4.32 10*6/uL Normal 4.2-5.4 [facility] Comment on above: Performed By: #### L 500.2500, L501.4021, L100.0100 #### [facility] [address] [place], [address] RDW SD 48.3 fl High 35.1-43.9 [facility] Comment on above: Performed By: #### L 500.2500, L501.4021, L100.0100 #### [facility] [address] [place], [address] WBC (Bld) [#/Vol] 6.4 10*3/uL Normal 4.4-11.0 [facility] Comment on above: Performed By: #### L 500.2500, L501.4021, L100.0100 #### [facility] [address] [place], [address] Carbon dioxide, total [Moles /volume] in Central venous bloodOrdered By: Efren Moss on 06-13-2025 CO2 [Moles/Vol] 26.9 mmol/L 21.0-32.0 [facility] Chest 1 View (Portable)on Chest 1 View (Portable) [facility] Imaging Services [address] [place] [address] Chest 1 View (Portable) MR#: [id number] Acct: [id number] Name: RICHIE ARMAS Rep #: [id number] : 1950 F 75 From: Ana Radford PCP: Dr. Narinder Crum MD Status: REG ER Study: Chest 1 View (Portable) Date of Exam: 06/13/25 Exam# [id number] Ordering Dr: Efren Moss MD PROCEDURE: CHEST 1 VIEW (PORTABLE) 06/13/2025 REASON FOR EXAM: CHEST PAIN TECHNIQUE: Frontal view of the chest. COMPARISON: 12/20/2023 FINDINGS: No focal consolidation. No pleural effusion or pneumothorax. Cardiac silhouette is within normal limits. Calcified aortic arch. Calcific tendinopathy of the right shoulder. RAD/Chest 1 View (Portable) IMPRESSION: No focal consolidations. Reading Location: [id number] CC: Dr. Narinder Crum MD; Dr. Efren Moss MD [employer] Operator: Signed Normal [facility] Chloride assayOrdered By: Margaret Moss on 06-13-2025 Chloride [Moles/Vol] 99 mmol/L 98-108 [facility] Echo Completeon 06-13-2025 Echo Complete [facility] [address] [place] [address] Echo Complete 06/14/25 0745 MR#: [id number] Acct: [id number] Name: RICHIE ARMAS Rep #: [id number] : 1950 75 From: Edil Hong MD Attending Dr: Dr. Thelma Hamm, DO Status: D IS IN Ordering Dr: Hui Morel MD Date: 06/13/25 Location: ICU Sex: F C Admitted: 06/13/25 Reason For Study Reason For Study: NSTEMI Procedure This was a 2D Doppler, Color Flow transthoracic echocardiogram. Exam performed portable in ICU/CCU. Left Ventricle Normal LV size. The left ventricular ejection fraction is 45 %. Stage 1 diastolic dysfunction. Mid- Anterior : Hypokinetic. Tell : Hypokinetic. Mid-anteroseptal : Hypokinetic. There are [...] specified. Ordering Physician: Hui Morel Referring Physician: Narinder Crum MD Performed By: Annette Osullivan RDCS 06/14/25 0622 Date Edil Hong MD CC: Dr. Hui Morel MD; Dr. Narinder Crum MD; Dr. Thelma Hamm DO Date Dictated: 06/14/25 0745 Date Transcribed: 06/14/25 1621 [employer] Operator: Signed Normal [facility] Emergency Department Summary on 06-13-2025 Emergency Department Summary [facility] Medical Records Department [address] [place] [address] Emergency Department Summary 06/13/25 MR#: [id number] Acct: [id number] Name: RICHIE ARMAS Rep #: [id number] : 1950 75 From: Efren Moss MD PCP: Dr. Narinder Crum MD Status:ADM IN Location: ICU ICU03-1 [...] Negative for Marfan's Syndrome or Family History PFSH PFSH Medical History (Updated 06/13/25 @ 19:48 [...] (From Phenergan) AdvReac Other Verified 06/13/25 17:31 Ohimahq-KOA-CxX Reductase AdvReac Pain in Verified 06/13/25 17:31 [...] paroxysmal nocturnal (more content not included)... Normal [facility] Eosinophil percentageOrdered By: Efren Moss on 06-13-2025 Eosinophils/100 WBC (Bld) 0.5 % 0-5 [facility] Erythrocyte distribution wid th ratioOrdered By: Efrenconrado Moss on 06-13-2025 Erythrocyte distribution width (RBC) [Ratio] 13.5 % 11.6-14.6 [facility] Erythrocyte distribution wid th standard deviationOrdered By: Efrenconrado Moss on 06-13-2025 Erythrocyte distribution width (RBC) [Ratio] 48.6 fl High 35.1-43.9 [facility] Glomerular filtration rate ( GFR) estimation/1.73 sq m using serum, plasma, or whole bOrdered By: Efren Moss on 06-13-2025 GFR/1.73 sq M.predicted among non-blacks MDRD (S/P/Bld) [Vol rate/Area] 89 mL/min/{1.73_m2} >60 [facility] Comment on above: mL/min/1.73m2 CKD-EP I Creatinine Equation (2020) H AND P Exam - [facility] 06-13-2025 H&P Exam - Hospitalist [facility] Medical Records Department [address] [place] [address] H P Exam - Hospitalist 06/13/25 191 MR#: [id number] Acct: [id number] Name: RICHIE ARMAS Rep #: [id number] : 1950 75 From: Hui Morel MD PCP: Dr. Narinder Crum MD Status:ADM IN Location: ICU ICU03-1 HPI - General General Date of Admission: 06/13/25 Date of Service: 06/13/25 Chief Complaint: Chest pain HPI Narrative The patient is a 75 y/o F w/ PMHx: Raynaud disease, HTN, HLD, Hypothyroidism, Fibromyalgia, Chronic idiopathic constipation who presents to the [facility] ED on 06/13/25 with exertional chest [...] noted prior. ED physician discussed case with Tennis Racket Repairer. In the ED patient ministered full-strength aspirin therapy, heparin bolus and drip in addition to sublingual nitroglycerin eventually transition to a nitroglycerin drip as well as morphine 4 mg IV x 1. [facility] Medical History (Updated 06/13/25 @ 19:[address] Hui Morel MD) Chronic idiopathic constipation CKD (chronic kidney disease), stage II GERD (gastroesophageal reflux disease) IBS (irritable bowel syndrome) HTN (hypertension) Raynaud disease Fibromyalgia Cataract High cholesterol Hypothyroidism Home Medications ???Medication ???Instructions ???Recorded ???Last Taken ???Type amitriptyline 50 mg tablet 50 mg PO DAILY 12/23/15 Unknown Hi story atorvastatin 40 mg tablet [...] (From Phenergan) AdvReac Other Verified 06/13/25 17:31 [id number] Reductase AdvReac Pain in Verified 06/13/25 17:31 [...] History o (more content not included)... Normal [facility] Hematocrit Auto (Bld) [Volum e fraction]Ordered By: Efren Moss on 06-13-2025 Hematocrit (Bld) [Volume fraction] 39.1 % 37-47 [facility] Hemoglobin measurementOrdere d By: Efrenconrado Moss on 06-13-2025 Hemoglobin (Bld) [Mass/Vol] 12.7 g/dL 12.0-15.0 [facility] Immature granulocytes/100 WB C Auto (Bld)Ordered By: Efren Moss on 06-13-2025 Immature granulocytes/100 WBC (Bld) 0.200 % 0.0-0.9 [facility] Comment on above: IG% - Immature Granu locytes (promyelocytes, myelocytes and metamyelocytes) > 1% indicates that a LEFT SHIFT is Present. International normalized rat io (INR) calculationOrdered By: Efrenconrado Moss on 06-13-2025 INR Coag (Bld) [Relative time] 1.2 {INR} [facility] L501.4021on 06-13-2025 Trop T High Sen 93 ng/L Invalid Interpretation Code <=14 [facility] Comment on above: Result Comment: Crit ical Result(s) Called at: 1847 TO Edward CORTES by:??Barbara NIXON. Results read back by same. Performed By: #### L 500.2500, L501.4021, L100.0100 #### [facility] [address] [place], [address] MCV (mean corpuscular volume ) determinationOrdered By: Efren Moss on 06-13-2025 MCV (RBC) [Entitic vol] 96.5 fL 81-99 [facility] Magnesiumon 06-13-2025 Magnesium [Mass/Vol] 2.0 mg/dL Normal 1.5-2.2 [facility] Comment on above: Order Comment: Comme nts: may add to ED labs Performed By: #### L 500.2500, L501.4021, L100.0100 #### [facility] [address] [place], [address] Magnesium measurement (mass/ volume)Ordered By: Hui Morel on 06-13-2025 Magnesium (Unsp spec) [Mass/Vol] 2.0 mg/dL 1.5-2.2 [facility] Mean corpuscular hemoglobin (MCH) determinationOrdered By: Efrenconrado Moss on 06-13-2025 MCH (RBC) [Entitic mass] 31.4 pg 27.0-32.0 [facility] Mean corpuscular hemoglobin concentration (MCHC) determinationOrdered By: Efren Moss on 06-13-2025 MCHC (RBC) [Mass/Vol] 32.5 g/dL 32-[address] [facility] Mean platelet volume determi nationOrdered By: Efrenconrado Moss on 06-13-2025 Platelet mean volume (Bld) [Entitic vol] 10.4 fL 6.2-12.0 [facility] Monocyte percentageOrdered B y: Efrenconrado Moss on 06-13-2025 Monocytes/100 WBC (Bld) 9.0 % 0-10 [facility] Neutrophil percentageOrdered By: Efrenconrado Moss on 06-13-2025 Neutrophils/100 WBC (Bld) 55.8 % 47-70 [facility] Nucleated red blood cell per centageOrdered By: Efrenconrado Moss on 06-13-2025 Nucleated RBC/100 WBC (Bld) [Ratio] 0 % 0-5 [facility] Partial Thromboplast Timeon 06-13-2025 aPTT Coag (Bld) [Time] 27.1 s Normal 24.1-36.2 [facility] Comment on above: Order Comment: Comme nts: If not done in prior 24 hours Performed By: #### L 500.2500, L501.4021, L100.0100 #### [facility] [address] [place], [address] Platelet countOrdered By: Margaret Moss on 06-13-2025 Platelets (Bld) [#/Vol] 241 10*3/uL 150-450 [facility] Potassium measurement (mass/ volume)Ordered By: Efren Moss on 06-13-2025 Potassium (Unsp spec) [Mass/Vol] 4.4 mmol/L 3.3-5.1 [facility] Prothrombin Time w/INRon INR Coag (PPP) [Relative time] 1.2 {INR} Normal [facility] Comment on above: Order Comment: Comme nts: If not done in prior 24 hours Performed By: #### L 500.2500, L501.4021, L100.0100 #### [facility] [address] [place], [address] Prothrombin timeOrdered By: Efren Moss on 06-13-2025 PT Coag (PPP) [Time] 15.2 s High 11.7-14.9 [facility] Comment on above: Order Comment: Comme nts: If not done in prior 24 hours Performed By: #### L 500.2500, L501.4021, L100.0100 #### [facility] [address] [place], [address] RBC Auto (Bld) [#/Vol]Ordere d By: Efren Moss on 06-13-2025 RBC (Bld) [#/Vol] 4.05 10*6/uL Low 4.2-5.4 [facility] Serum creatinine measurement (mass/volume)Ordered By: Efren Moss on 06-13-2025 Creatinine [Mass/Vol] 0.71 mg/dL 0.70-1.[address] [facility] Serum glucose measurement (m ass/volume)Ordered By: Efren Moss on 06-13-2025 Glucose [Mass/Vol] 112 mg/dL High 70-99 [facility] Serum or plasma calcium jill urement (mass/volume)Ordered By: Efren Moss on 06-13-2025 Calcium [Mass/Vol] 9.4 mg/dL 7.6-11.0 [facility] Serum or plasma urea nitroge n measurement (mass/volume)Ordered By: Efren Rodriguezo on 06-13-2025 Urea nitrogen [Mass/Vol] 23 mg/dL High 4-19 [facility] Sodium levelOrdered By: Efren Rodriguezo on 06-13-2025 Sodium [Moles/Vol] 136 mmol/L 133-145 [facility] Troponin T.cardiac [Mass/vol ume] in Serum or Plasma by High sensitivity methodOrdered By: Efren Rodriguezo on 06-13-2025 Troponin T.cardiac High sensitivity method [Mass/Vol] 88 ng/L High <14 [facility] Comment on above: Hemolysis present, R esults could be affected. Critical Result(s) Called at: by: Results read back by same.CRITICAL VALUE CALLED TO [id number]/25/25 0005 Maxim Gurrola.RESULTS READ BACK BY SAME. Previous reported result: 88 ng/LEdited by: MIRNA on 06/14/25:0005 AMENDED REPORT 06/14/25 0005 Trop T HS 2HR previously reported as: 88 *H ng/L Hemolysis present, Results could be affected. Critical Result(s) Called at: by: Results read back by same. Troponin T.cardiac High sensitivity method [Mass/Vol] 93 ng/L High <14 [facility] Comment on above: Critical Result(s) Josue vega at: 1847 TO Edward CORTES by: Barbara NIXON. Results read back by same. White blood cell (WBC) count Ordered By: Efren Moss on 06-13-2025 WBC (Bld) [#/Vol] 5.7 10*3/uL 4.4-11.0 [facility] Calprotectin, Stoolon [address] 146 ug/g Abnormal 0-120 [facility] Comment on above: Result Comment: Conc entration Interpretation Follow-Up < 5 - 50 ug/g Normal None >50 -120 ug/g Borderline Re-evaluate in 4-6 weeks >120 ug/g Abnormal Repeat as clinically indicated Performed at: [facility] - [facility] [address] [id number] Rn Neurology: Franklin Pena MD, Phone: [phone] Performed By: #### L 500.4828, L501.3201, L100.0100 #### [facility] Laboratory [address] [place], [address] [employer] Decub and/or Erecton 03-15-2025 [employer] Decub and/or Erect [facility] Imaging Services [address] [place] [address] [employer] Decub and/or Erect MR#: [id number] Acct: [id number] Name: RICHIE ARMAS Rep #: [id number] : 1950 F 74 From: Thelma Al MD PCP: Dr. Narinder Crum MD Status: REG CLI Study: [employer] Decub and/or Erect Date of Exam: 03/15 Exam# [id number] Ordering Dr: KRYSTEN MARIE EXAM: XR Abdomen, [...] the colon consistent with constipation. Reading Location: [id number] CC: KRYSTEN MARIE; Dr. Narinder Crum MD [employer] Operator: Signed Normal [facility] Calprotectin stoolon 025 Calprotectin stool 146 ug/g High 0-120 [facility] Comment on above: Concentration Interp retation Follow-Up< 5 - 50 ug/g Normal None>50 -120 ug/g Borderline Re-evaluate in 4-6 weeks >120 ug/g Abnormal Repeat as clinically indicatedPerformed at: [facility] - [facility] [id number] [place], [place] [id number] Director: Franklin Pena MD, Phone: [phone] Stool Calprotectin 146 ug/g High 0-120 [facility] Comment on above: Concentration Interp retation Follow-Up< 5 - 50 ug/g Normal None>50 -120 ug/g Borderline Re-evaluate in 4-6 weeks >120 ug/g Abnormal Repeat as clinically indicatedPerformed at: - [facility] [address] [id number] Director: Franklin Pena MD, Phone: [phone] Cerv Spine 4 or 5 Viewson Cerv Spine 4 or 5 Views [facility] Imaging Services [address] [place], [place] [id number] Cerv Spine 4 or 5 Views MR#: [id number] Acct: [id number] Name: RICHIE ARMAS Rep #: [id number] : 1950 F 74 From: Lennox og MD PCP: Dr. Narinder Crum MD Status: DEP AMB Study: Cerv Spine 4 or 5 Views Date of Exam: 01/25/25 Exam# [id number] Ordering Dr: Ruthann Baltazar PROCEDURE: CERV SPINE 4 OR 5 [...] reduced on the extension views. Reading Location: [id number] CC: BRAYDEN Wray; Dr. Narinder Crum MD [employer] Operator: Signed Normal [facility] Orthopedic Visit Reporton Orthopedic Visit Report [facility] [address] [place] [address] OFFICE VISIT Date of Service: 01/25/25 MR#: [id number] Acct: [id number] Name: RICHIE ARMAS Rep #: [id number] : 1950 Provider: BRAYDEN Wray Age/Sex: 74/F Location: [facility] Status: Signed Intake Vital Signs 12/20/23 14:08 [...] Phenergan) Adverse Reaction (Verified 01/25/25 13:09) Other Eswovdb-CPD-FoD Reductase Inhibitor Adverse Reaction (Verified 01/25/25 13:09) [...] you fallen in the past year?: Yes [facility] Medical History Raynaud disease Fibromyalgia Cataract Oral thrush Suprapubic abdominal pain High cholesterol Hypothyroidism Surgical History Previous back surgery H/O wrist surgery History of ankle surgery H/O shoulder surgery Social History Smoking Status: Unknown if ever smoked HPI CERVICAL SPINE Details: This documentation accurately reflects the service provided and the decisions made by me, BRAYDEN Wray 01/25/25 5324. Part of today???s visit was documented by [...] which was (more content not included)... Normal [facility] Bone density reportOrdered B y: Lennox Ellington on 11-02-2024 Study report Skeletal system DXA [facility] Imaging Services [address] [place], [place] [id number] Dexa Bone Density Study MR#: [id number] Acct: [id number] Name: RICHIE ARMAS Rep #: [id number] : 1950 F 74 From: Clinton Ellington MD PCP: Dr. Narinder Crum MD Status: [facility] Study:Dexa Bone Density Study Date of Exam: 10/30/24 Exam# [id number] Ordering Dr: Yandel Tracy RN INTEGRATED-C [id number] STUDY: DUAL ENERGY X-RAY ABSORPTIOMETRY / DXA [...] MD at 13:26 EST , CC: Dr. Narinder Crum MD; Annette Tracy ~ [employer] Machine Operator: Signed [facility] Breast imaging reportOrdered By: Lennox Ellington on 10-30-2024 Study report [facility] Imaging Services [address] [place] [address] SCRN MAMM (CAD)W/KAMERON BILAT MR#: [id number] Acct: [id number] Name: RICHIE ARMAS Rep #: [id number] : 1950 F 74 From: Clinton Ellington MD PCP: Dr. Narinder Crum MD Status: [facility] Study:SCRN MAMM (CAD)W/KAMERON BILAT Date of Exa m: 10/30/24 Exam# [id number] Ordering Dr: Yandel Tracy [id number] MAMMOGRAPHY - BILATERAL SCREENING REASON FOR EXAM: Female, 74 years old. Routine annual screening examination. PERTINENT HISTORY: Non-contributory. Prior bilateral breast reduction surgery TECHNIQUE: Digital bilateral breast kameron (3D mammographic acquisition) in the CC and [...] change since the prior study. BI/SCRN MAMM (CAD)W/KAMERON BILAT IMPRESSION: Stable bilateral screening mammogram. Yearly follow-up mammogram recommended. (A) ASSESSMENT CATEGORY: BIRADS Category 2: Benign. A letter regarding these results will be sent to the patient by the facility within 30 days. Approximately 10% of breast cancers are not detected by mammography. A normal mammogram should not delay biopsy of a clinically suspicious abnormality. [id number] Electronically Signed: Lennox Ellington MD at 13:40 EST Reading Location ID and State: [address] [place] [address] , Service support , CC: Dr. Narinder Crum MD; Annette Tracy ~ [employer] Machine Operator: Signed [facility] Dexa Bone Density Studyon Dexa Bone Density Study [facility] Imaging Services [address] [place] [id number] Dexa Bone Density Study MR#: [id number] Acct: [id number] Name: RICHIE ARMAS Rep #: [id number] : 1950 F 74 From: Lennox og MD PCP: Dr. Narinder Crum MD Status: [facility] Study: Dexa Bone Density Study Date of Exam: 10/30/24 Exam# [id number] Ordering Dr: [place] [id number] STUDY: DUAL ENERGY X-RAY ABSORPTIOMETRY / DXA [...] MD at 13:26 EST , CC: Dr. Narinder Crum MD; Annette POLLARD NP-Josue Tracy [employer] Machine Operator: Signed Normal [facility] SCRN MAMM (CAD)W/KAMERON BILATo n 10-30-2024 SCRN MAMM (CAD)W/KAMERON BILAT [facility] Imaging Services [address] [place] [address] SCRN MAMM (CAD)W/KAMERON BILAT MR#: [id number] Acct: [id number] Name: RICHIE ARMAS Rep #: [id number] : 1950 F 74 From: Lennox og MD PCP: Dr. Narinder Crum MD Status: [facility] Study: SCRN MAMM (CAD)W/KAMERON BILAT Date of Exam: 10/21 Exam# [id number] Ordering Dr: [place] [id number] MAMMOGRAPHY - BILATERAL SCREENING REASON FOR EXAM: Female, 74 years old. Routine annual screening examination. PERTINENT HISTORY: Non-contributory. Prior bilateral breast reduction surgery TECHNIQUE: Digital bilateral breast kameron (3D mammographic acquisition) in the CC and [...] change since the prior study. BI/SCRN MAMM (CAD)W/KAMERON BILAT IMPRESSION: Stable bilateral screening mammogram. Yearly follow-up mammogram recommended. (A) ASSESSMENT CATEGORY: BIRADS Category 2: Benign. A letter regarding these results will be sent to the patient by the facility within 30 days. Approximately 10% of breast cancers are not detected by mammography. A normal mammogram should not delay biopsy of a clinically suspicious abnormality. [id number] Electronically Signed: Lennox Ellington MD at 13:40 EST , CC: Dr. Narindre Crum MD; Annette Tracy [employer] Machine Operator: Signed Normal [facility] No Panel InformationOrdered By: Narinder Crum on 03-05-2024 Free Triiodothyronine (T3) pg/dL 2.0 pg/mL 2.18-3.98 [facility] Serum or plasma thyroid stim ulating hormone (TSH) measurement (units/volume)Ordered By: Narinder Crum on 03-05-2024 TSH Qn 1.85 uIU/mL 0.358-3.74 [facility] Thin prep Papanicolaou smear with manual screeningOrdered By: Narinder Crum on 03-05-2024 Thin prep Papanicolaou smear with manual screening 0.76 ng/dL 0.76-1.46 [facility] Absolute lymphocyte countOrd ered By: Dio Martins on 12-20-2023 Lymphocytes Auto (Unsp spec) [#/Vol] 1.54 10*3/uL 0.83-4.51 [facility] Automated lymphocyte count a s percentage of total leukocytesOrdered By: Dio Martins on 12-20-2023 Lymphocytes/100 WBC Auto (Unsp spec) 26.2 % 19-41 [facility] Basophil percentageOrdered B y: Dio Martins on 12-20-2023 Basophils/100 WBC (Bld) 0.7 % 0-1 [facility] Bilirubin [Mass/Vol] 0.30 mg/dL 0.20-1.00 [facility] Comment on above: For patients on eltr ombopag therapy, use of Dimension [place] TBIL is not recommended. Chloride [Moles/Vol] 106 mmol/L 98-107 [facility] Eosinophils/100 WBC (Bld) 1.4 % 0-5 [facility] Glucose [Mass/Vol] 119 mg/dL 74-106 [facility] Comment on above: Fasting Glucose resu lt from 100 to 125 mg/dL suggests IMPAIRED HOMEOSTASIS per A.D.A. criteria. Hemoglobin (Bld) [Mass/Vol] 14.4 g/dL 12.0-15.0 [facility] Monocytes/100 WBC (Bld) 7.5 % 0-10 [facility] Neutrophils (Bld) [#/Vol] 3.8 10*3/uL 2.0-7.7 [facility] Neutrophils/100 WBC (Bld) 63.9 % 47-70 [facility] Potassium [Moles/Vol] 4.3 mmol/L 3.5-5.[address] [facility] Comment on above: Moderate Hemolysis, Result may be falsely increased. Protein [Mass/Vol] 7.8 g/dL 6.4-8.2 [facility] Sodium [Moles/Vol] 138 mmol/L 136-145 [facility] WBC (Bld) [#/Vol] 5.9 10*3/uL 4.4-11.0 [facility] Determination of erythrocyte mean corpuscular volume (MCV)Ordered By: Dio Martins on 12-20-2023 MCV (RBC) [Entitic vol] 98.1 fL 81-99 [facility] Erythrocyte distribution wid th ratioOrdered By: Dio Martins on 12-20-2023 Erythrocyte distribution width (RBC) [Ratio] 13.5 % 11.6-14.6 [facility] Erythrocyte distribution wid th standard deviationOrdered By: Dio Martins on 12-20-2023 Erythrocyte distribution width (RBC) [Entitic vol] 50.1 fL 35.1-43.9 [facility] Hematocrit Auto (Bld) [Volum e fraction]Ordered By: Dio Martins on 12-20-2023 Hematocrit (Bld) [Volume fraction] 46.7 % 37-47 [facility] Immature granulocytes/100 WB C Auto (Bld)Ordered By: Dio Martins on 12-20-2023 Immature granulocytes/100 WBC (Bld) 0.300 % 0.0-0.9 [facility] Comment on above: IG% - Immature Granu locytes (promyelocytes, myelocytes and metamyelocytes) > 1% indicates that a LEFT SHIFT is Present. Laboratory - Chemistry and C hemistry - challengeOrdered By: iDo Martins on 12-20-2023 Albumin/Globulin [Mass ratio] 1.1 {ratio} 0.9-2.4 [facility] ALP [Catalytic activity/Vol] 55 U/L 45-117 [facility] ALT [Catalytic activity/Vol] 13 U/L 13-56 [facility] CO2 [Moles/Vol] 26.0 mmol/L 21.0-32.0 [facility] Globulin (S) [Mass/Vol] 3.7 g/dL 2.2-4.2 [facility] Urea nitrogen/Creatinine [Mass ratio] 28.0 mg/mg 10-20 [facility] Laboratory - Hematology and Cell countsOrdered By: Dio Martins on 12-20-2023 MCH (RBC) [Entitic mass] 30.3 pg 27.0-32.0 [facility] MCHC (RBC) [Mass/Vol] 30.8 g/dL 32-[address] [facility] Nucleated RBC/100 WBC (Bld) [Ratio] 0 % 0-5 [facility] Platelets (Bld) [#/Vol] 186 10*3/uL 150-450 [facility] No Panel InformationOrdered By: Dio Martins on 12-20-2023 Troponin I High Sensitivity 7 pg/mL 3.0-54.0 [facility] Comment on above: Please Note: New Crystal t Units and Gender Specific Reference Ranges. For more information see Policy Stat Procedure [place] High Sensitivity Troponin (TNIH) and attachments. Estimated Creatinine Clearance Calc 62.14 ml/min [facility] Estimated GFR (MDRD) Amer 92 mL/min >60 [facility] Comment on above: GFR Calc Estimated GFR (MDRD) Non-Af Amer 76 mL/min >60 [facility] Comment on above: Non- GFR Calc Platelet mean volume Lever-Ec ker (Bld) [Entitic vol]Ordered By: Dio Martins on 12-20-2023 Platelet mean volume (Bld) [Entitic vol] 11.4 fL 6.2-12.0 [facility] RBC Auto (Bld) [#/Vol]Ordere d By: Dio Martins on 12-20-2023 RBC (Bld) [#/Vol] 4.76 10*6/uL 4.2-5.4 [facility] Serum or plasma calcium jill urement (mass/volume)Ordered By: Dio Martins on 12-20-2023 Calcium [Mass/Vol] 10.0 mg/dL 8.5-10.1 [facility] Serum or plasma creatinine m easurement (mass/volume)Ordered By: Dio Martins on 12-20-2023 Creatinine [Mass/Vol] 0.79 mg/dL 0.55-1.[address] [facility] Comment on above: The validity of the calculated GFR & GFRAA in patients over 70 years has not been determined. Clinical correlation is essential. Serum or plasma urea nitroge n measurement (mass/volume)Ordered By: Dio Martins on 12-20-2023 Urea nitrogen [Mass/Vol] 22 mg/dL 7-18 [facility] Thin prep Papanicolaou smear with manual screeningOrdered By: Dio Martins on 12-20-2023 Thin prep Papanicolaou smear with manual screening 4.1 g/dL 3.2-5.0 [facility] Thin prep Papanicolaou smear with manual screening 27 U/L 15-37 [facility] Comment on above: Moderate Hemolysis, Result may be falsely increased. Thin prep Papanicolaou smear with manual screening 6 5-15 [facility] Absolute lymphocyte countOrd ered By: Dr. Crum on 02-08-2023 Lymphocytes Auto (Unsp spec) [#/Vol] 2.70 10*3/uL 0.83-4.51 [facility] Basophil percentageOrdered B y: Dr. Crum on 02-08-2023 Basophils/100 WBC (Bld) 0.7 % 0-1 [facility] Bilirubin [Mass/Vol] 0.30 mg/dL 0.20-1.00 [facility] Comment on above: For patients on eltr ombopag therapy, use of Dimension [place] TBIL is not recommended. Chloride [Moles/Vol] 102 mmol/L 98-107 [facility] Eosinophils/100 WBC (Bld) 2.2 % 0-5 [facility] Glucose [Mass/Vol] 81 mg/dL 74-106 [facility] Neutrophils (Bld) [#/Vol] 2.7 10*3/uL 2.0-7.7 [facility] Neutrophils/100 WBC (Bld) 44.5 % 47-70 [facility] Potassium [Moles/Vol] 4.3 mmol/L 3.5-5.[address] [facility] Protein [Mass/Vol] 7.2 g/dL 6.4-8.2 [facility] Sodium [Moles/Vol] 139 mmol/L 136-145 [facility] WBC (Bld) [#/Vol] 6.0 10*3/uL 4.4-11.0 [facility] Blood erythrocytes count (nu mber/volume)Ordered By: Dr. Crum on 02-08-2023 RBC (Bld) [#/Vol] 4.35 10*6/uL 4.2-5.4 [facility] Blood hemoglobin measurement (mass/volume)Ordered By: Dr. Crum on 02-08-2023 Hemoglobin (Bld) [Mass/Vol] 13.5 g/dL 12.0-15.0 [facility] Blood lymphocytes/100 leukoc ytesOrdered By: Dr. Crum on 02-08-2023 Lymphocytes/100 WBC (Bld) 44.8 % 19-41 [facility] Blood monocytes/100 leukocyt esOrdered By: Dr. Crum on 02-08-2023 Monocytes/100 WBC (Bld) 7.6 % 0-10 [facility] Blood platelet mean volumeOr dered By: Dr. Crum on 02-08-2023 Platelet mean volume (Bld) [Entitic vol] 10.9 fL 6.2-12.0 [facility] Determination of erythrocyte mean corpuscular volume (MCV)Ordered By: Dr. Crum on 02-08-2023 MCV (RBC) [Entitic vol] 99.8 fL 81-99 [facility] Hematocrit Auto (Bld) [Volum e fraction]Ordered By: Dr. Crum on 02-08-2023 Hematocrit (Bld) [Volume fraction] 43.4 % 37-47 [facility] Laboratory - Chemistry and C hemistry - challengeOrdered By: Dr. Crum on 02-08-2023 ALP [Catalytic activity/Vol] 51 U/L 45-117 [facility] ALT [Catalytic activity/Vol] 14 U/L 13-56 [facility] CO2 [Moles/Vol] 28.0 mmol/L 21.0-32.0 [facility] Cobalamin (Vitamin B12) [Mass/Vol] 506 pg/mL 211-911 [facility] Free T4 [Mass/Vol] 0.71 ng/dL 0.76-1.46 [facility] Globulin (S) [Mass/Vol] 3.5 g/dL 2.2-4.2 [facility] Urea nitrogen/Creatinine [Mass ratio] 31.6 mg/mg 10-20 [facility] Laboratory - Hematology and Cell countsOrdered By: Dr. Crum on 02-08-2023 Erythrocyte distribution width (RBC) [Entitic vol] 49.5 fL 35.1-43.9 [facility] Erythrocyte distribution width (RBC) [Ratio] 13.4 % 11.6-14.6 [facility] Immature granulocytes/100 WBC (Bld) 0.200 % 0.0-0.9 [facility] Comment on above: IG% - Immature Granu locytes (promyelocytes, myelocytes and metamyelocytes) > 1% indicates that a LEFT SHIFT is Present. MCH (RBC) [Entitic mass] 31.0 pg 27.0-32.0 [facility] Nucleated RBC/100 WBC (Bld) [Ratio] 0 % 0-5 [facility] ([facility]) [Mass/Vol]Or dered By: Dr. Crum on 02-08-2023 MCHC (RBC) [Mass/Vol] 31.1 g/dL 32-[address] [facility] No Panel InformationOrdered By: Dr. Crum on 02-08-2023 Estimated GFR (MDRD) Amer 101 mL/min >60 [facility] Comment on above: GFR Calc Estimated GFR (MDRD) Non-Af Amer 84 mL/min >60 [facility] Comment on above: Non- GFR Calc Free Triiodothyronine (T3) pg/dL 1.9 pg/mL 2.18-3.98 [facility] Thyroid Stimulating Hormone (TSH) 3.71 uIU/mL 0.358-3.74 [facility] Vitamin D 25-Hydroxy 30.5 ng/mL [facility] Comment on above: Vitamin D 25(OH) Sta tus Range Deficiency <20 ng/mL (50nmol/L) Insufficiency 20 - 30 ng/mL (50 - 75 nmol/L) Sufficiency 30 - 100 ng/mL (75 - 250 nmol/L) Toxicity >100 ng/mL (>250 nmol/L) Platelets bldOrdered By: Dr. Crum on 02-08-2023 Platelets (Bld) [#/Vol] 254 10*3/uL 150-450 [facility] Serum or plasma albumin jill urement (mass/volume)Ordered By: Dr. Crum on 02-08-2023 Albumin [Mass/Vol] 3.7 g/dL 3.2-5.0 [facility] Serum or plasma albumin/glob ulin mass ratioOrdered By: Dr. Crum on 02-08-2023 Albumin/Globulin [Mass ratio] 1.1 {ratio} 0.9-2.4 [facility] Serum or plasma calcium jill urement (mass/volume)Ordered By: Dr. Crum on 02-08-2023 Calcium [Mass/Vol] 8.9 mg/dL 8.5-10.1 [facility] Serum or plasma creatinine m easurement (mass/volume)Ordered By: Dr. Crum on 02-08-2023 Creatinine [Mass/Vol] 0.73 mg/dL 0.55-1.[address] [facility] Comment on above: The validity of the calculated GFR & GFRAA in patients over 70 years has not been determined. Clinical correlation is essential. Serum or plasma folate measu rement (mass/volume)Ordered By: Dr. Crum on 02-08-2023 Folate [Mass/Vol] 4.70 ng/mL 3.1-55.4 [facility] Serum or plasma urea nitroge n measurement (mass/volume)Ordered By: Dr. Crum on 02-08-2023 Urea nitrogen [Mass/Vol] 23 mg/dL 7-18 [facility] Thin prep Papanicolaou smear with manual screeningOrdered By: Dr. Crum on 02-08-2023 Thin prep Papanicolaou smear with manual screening 28 U/L 15-37 [facility] Thin prep Papanicolaou smear with manual screening 9 5-15 [facility] Absolute lymphocyte counton 09-05-2022 Lymphocytes Auto (Unsp spec) [#/Vol] 2.39 10*3/uL 0.83-4.51 [facility] Work Phone: Basophil percentageon 2021 Basophils/100 WBC (Bld) 0.7 % 0-1 [facility] Work Phone: Chloride [Moles/Vol] 102 mmol/L 98-107 [facility] Work Phone: Eosinophils/100 WBC (Bld) 1.0 % 0-5 [facility] Work Phone: Glucose [Mass/Vol] 97 mg/dL 74-106 [facility] Work Phone: Neutrophils (Bld) [#/Vol] 2.9 10*3/uL 2.0-7.7 [facility] Work Phone: Neutrophils/100 WBC (Bld) 48.9 % 47-70 [facility] Work Phone: Potassium [Moles/Vol] 4.1 mmol/L 3.5-5.[address] [facility] Work Phone: Comment on above: Slight Hemolysis, Re sult may be falsely increased. Sodium [Moles/Vol] 137 mmol/L 136-145 [facility] Work Phone: [phone] WBC (Bld) [#/Vol] 6.0 10*3/uL 4.4-11.0 [facility] Work Phone: [phone] Blood erythrocytes count (nu mber/volume)on 09-05-2022 RBC (Bld) [#/Vol] 4.53 10*6/uL 4.2-5.4 [facility] Work Phone: Blood hemoglobin measurement (mass/volume)on 09-05-2022 Hemoglobin (Bld) [Mass/Vol] 14.1 g/dL 12.0-15.0 [facility] Work Phone: [phone] Blood lymphocytes/100 leukoc yteson 09-05-2022 Lymphocytes/100 WBC (Bld) 40.2 % 19-41 [facility] Work Phone: [phone] Blood monocytes/100 leukocyt eson 09-05-2022 Monocytes/100 WBC (Bld) 8.9 % 0-10 [facility] Work Phone: Blood platelet mean volumeon 09-05-2022 Platelet mean volume (Bld) [Entitic vol] 10.5 fL 6.2-12.0 [facility] Work Phone: [phone] Determination of erythrocyte mean corpuscular volume (MCV)on 09-05-2022 MCV (RBC) [Entitic vol] 97.8 fL 81-99 [facility] Work Phone: [phone] Hematocrit Auto (Bld) [Volum e fraction]on 09-05-2022 Hematocrit (Bld) [Volume fraction] 44.3 % 37-47 [facility] Work Phone: Laboratory - Chemistry and C hemistry - challengeon 09-05-2022 CO2 [Moles/Vol] 30.0 mmol/L 21.0-32.0 [facility] Work Phone: [phone] Magnesium [Mass/Vol] 2.3 mg/dL 1.6-2.6 [facility] Work Phone: [phone] Comment on above: Slight Hemolysis, Re sult may be falsely increased. Urea nitrogen/Creatinine [Mass ratio] 30.0 mg/mg 10-20 [facility] Work Phone: [phone] Laboratory - Hematology and Cell countson 09-05-2022 Erythrocyte distribution width (RBC) [Entitic vol] 49.2 fL 35.1-43.9 [facility] Work Phone: [phone] Erythrocyte distribution width (RBC) [Ratio] 13.7 % 11.6-14.6 [facility] Work Phone: [phone] Immature granulocytes/100 WBC (Bld) 0.300 % 0.0-0.9 [facility] Work Phone: [phone] Comment on above: IG% - Immature Granu locytes (promyelocytes, myelocytes and metamyelocytes) > 1% indicates that a LEFT SHIFT is Present. MCH (RBC) [Entitic mass] 31.1 pg 27.0-32.0 [facility] Work Phone: [phone] Nucleated RBC/100 WBC (Bld) [Ratio] 0 % 0-5 [facility] Work Phone: [phone] MCHC Auto (RBC) [Mass/Vol]on 09-05-2022 MCHC (RBC) [Mass/Vol] 31.8 g/dL 32-[address] [facility] Work Phone: [phone] Panel Informationon 09-05 Estimated Creatinine Clearance Calc 42.68 ml/min [facility] Work Phone: [phone] Estimated GFR (MDRD) Amer 106 mL/min >60 [facility] Work Phone: [phone] Comment on above: GFR Calc Estimated GFR (MDRD) Non-Af Amer 88 mL/min >60 [facility] Work Phone: [phone] Comment on above: Non- GFR Calc Thyroid Stimulating Hormone (TSH) 5.03 uIU/mL 0.358-3.74 [facility] Work Phone: Troponin I High Sensitivity 6 pg/mL 3.0-54.0 [facility] Work Phone: Comment on above: Please Note: New Crystal t Units and Gender Specific Reference Ranges. For more information see Policy Stat Procedure [place] High Sensitivity Troponin (TNIH) and attachments. Platelets bldon 09-05-2022 Platelets (Bld) [#/Vol] 245 10*3/uL 150-450 [facility] Work Phone: Serum or plasma calcium jill urement (mass/volume)on 09-05-2022 Calcium [Mass/Vol] 9.3 mg/dL 8.5-10.1 [facility] Work Phone: Serum or plasma creatinine m easurement (mass/volume)on 09-05-2022 Creatinine [Mass/Vol] 0.70 mg/dL 0.55-1.[address] [facility] Work Phone: Comment on above: The validity of the calculated GFR & GFRAA in patients over 70 years has not been determined. Clinical correlation is essential. Serum or plasma urea nitroge n measurement (mass/volume)on 09-05-2022 Urea nitrogen [Mass/Vol] 21 mg/dL 7-18 [facility] Work Phone: Thin prep Papanicolaou smear with manual screeningon 09-05-2022 Thin prep Papanicolaou smear with manual screening 5 5-15 [facility] Work Phone: [phone] Absolute lymphocyte counton 08-18-2022 Lymphocytes Auto (Unsp spec) [#/Vol] 1.78 10*3/uL 0.83-4.51 [facility] Work Phone: Basophil percentageon 2021 Basophils/100 WBC (Bld) 0.7 % 0-1 [facility] Work Phone: [phone] Bilirubin [Mass/Vol] 0.40 mg/dL 0.20-1.00 [facility] Phone: Comment on above: For patients on eltr ombopag therapy, use of Dimension [place] TBIL is not recommended. Chloride [Moles/Vol] 101 mmol/L 98-107 [facility] Work Phone: Cholesterol [Mass/Vol] 344 mg/dL <200 [facility] Work Phone: Comment on above: <200 mg/dL Desirable 200-240 mg/dL Borderline >240 mg/dL High Risk Eosinophils/100 WBC (Bld) 1.6 % 0-5 [facility] Work Phone: Glucose [Mass/Vol] 98 mg/dL 74-106 [facility] Work Phone: Neutrophils (Bld) [#/Vol] 2.0 10*3/uL 2.0-7.7 [facility] Work Phone: Neutrophils/100 WBC (Bld) 47.5 % 47-70 [facility] Work Phone: Potassium [Moles/Vol] 4.1 mmol/L 3.5-5.[address] [facility] Work Phone: Protein [Mass/Vol] 7.3 g/dL 6.4-8.2 [facility] Work Phone: Sodium [Moles/Vol] 137 mmol/L 136-145 [facility] Work Phone: Triglyceride [Mass/Vol] 178 mg/dL <199 [facility] Work Phone: Comment on above: The drugs N-Acetylcy steine and Metamizole may falsely depress this assay.Serum Triglycerides Reference Interval Normal <150 mg/dL Borderline high 150 - 199 mg/dL High 200 - 499 mg/dL Very High > or = 500 mg/dL WBC (Bld) [#/Vol] 4.3 10*3/uL 4.4-11.0 [facility] Work Phone: Blood erythrocytes count (nu mber/volume)on 08-18-2022 RBC (Bld) [#/Vol] 4.34 10*6/uL 4.2-5.4 [facility] Work Phone: [phone] Blood hemoglobin measurement (mass/volume)on 08-18-2022 Hemoglobin (Bld) [Mass/Vol] 13.6 g/dL 12.0-15.0 [facility] Work Phone: Blood lymphocytes/100 leukoc yteson 08-18-2022 Lymphocytes/100 WBC (Bld) 41.4 % 19-41 [facility] Work Phone: Blood monocytes/100 leukocyt eson 08-18-2022 Monocytes/100 WBC (Bld) 8.8 % 0-10 [facility] Work Phone: Blood platelet mean volumeon 08-18-2022 Platelet mean volume (Bld) [Entitic vol] 10.8 fL 6.2-12.0 [facility] Work Phone: Determination of erythrocyte mean corpuscular volume (MCV)on 08-18-2022 MCV (RBC) [Entitic vol] 98.4 fL 81-99 [facility] Work Phone: Hematocrit Auto (Bld) [Volum e fraction]on 08-18-2022 Hematocrit (Bld) [Volume fraction] 42.7 % 37-47 [facility] Work Phone: Laboratory - Chemistry and C hemistry - challengeon 08-18-2022 ALP [Catalytic activity/Vol] 79 U/L 45-117 [facility] Work Phone: ALT [Catalytic activity/Vol] 12 U/L 13-56 [facility] Work Phone: CO2 [Moles/Vol] 31.0 mmol/L 21.0-32.0 [facility] Work Phone: Globulin (S) [Mass/Vol] 3.6 g/dL 2.2-4.2 [facility] Work Phone: Urea nitrogen/Creatinine [Mass ratio] 22.6 mg/mg 10-20 [facility] Work Phone: Laboratory - Hematology and Cell countson 08-18-2022 Erythrocyte distribution width (RBC) [Entitic vol] 48.5 fL 35.1-43.9 [facility] Work Phone: Erythrocyte distribution width (RBC) [Ratio] 13.3 % 11.6-14.6 [facility] Work Phone: Immature granulocytes/100 WBC (Bld) 0.000 % 0.0-0.9 [facility] Work Phone: Comment on above: IG% - Immature Granu locytes (promyelocytes, myelocytes and metamyelocytes) > 1% indicates that a LEFT SHIFT is Present. MCH (RBC) [Entitic mass] 31.3 pg 27.0-32.0 [facility] Work Phone: Nucleated RBC/100 WBC (Bld) [Ratio] 0 % 0-5 [facility] Work Phone: [phone] MCHC Auto (RBC) [Mass/Vol]on 08-18-2022 MCHC (RBC) [Mass/Vol] 31.9 g/dL 32-[address] [facility] Work Phone: No Panel Informationon 08-18 Estimated GFR (MDRD) Amer 98 mL/min >60 [facility] Work Phone: Comment on above: GFR Calc Estimated GFR (MDRD) Non-Af Amer 81 mL/min >60 [facility] Work Phone: Comment on above: Non- GFR Calc Vitamin D 25-Hydroxy 32.3 ng/mL [facility] Work Phone: Comment on above: Vitamin D 25(OH) Sta tus Range Deficiency <20 ng/mL (50nmol/L) Insufficiency 20 - 30 ng/mL (50 - 75 nmol/L) Sufficiency 30 - 100 ng/mL (75 - 250 nmol/L) Toxicity >100 ng/mL (>250 nmol/L) Platelets bldon 08-18-2022 Platelets (Bld) [#/Vol] 236 10*3/uL 150-450 [facility] Work Phone: Serum or plasma albumin jill urement (mass/volume)on 08-18-2022 Albumin [Mass/Vol] 3.7 g/dL 3.2-5.0 [facility] Work Phone: Serum or plasma albumin/glob ulin mass ratioon 08-18-2022 Albumin/Globulin [Mass ratio] 1.0 {ratio} 0.9-2.4 [facility] Work Phone: Serum or plasma calcium jill urement (mass/volume)on 08-18-2022 Calcium [Mass/Vol] 9.2 mg/dL 8.5-10.1 [facility] Work Phone: Serum or plasma cholesterol in HDL measurement (mass/volume)on 08-18-2022 Cholesterol in HDL [Mass/Vol] 105 mg/dL >40 [facility] Work Phone: Comment on above: The drugs N-Acetylcy steine and Metamizole may falsely depress this assay. Reference Range HDL <40 mg/dL Low HDL Cholesterol HDL >or= 60 mg/dL High HDL Cholesterol Serum or plasma cholesterol in VLDL measurement (mass/volume)on 08-18-2022 Cholesterol in VLDL [Mass/Vol] 36 mg/dL 5-40 [facility] Work Phone: Serum or plasma creatinine m easurement (mass/volume)on 08-18-2022 Creatinine [Mass/Vol] 0.75 mg/dL 0.55-1.[address] [facility] Work Phone: Comment on above: The validity of the calculated GFR & GFRAA in patients over 70 years has not been determined. Clinical correlation is essential. Serum or plasma low density lipoprotein (LDL) cholesterol measurement (mass/volume)on 08-18-2022 Cholesterol in LDL [Mass/Vol] 203 mg/dL 0-130 [facility] Work Phone: Serum or plasma urea nitroge n measurement (mass/volume)on 08-18-2022 Urea nitrogen [Mass/Vol] 17 mg/dL 7-18 [facility] Work Phone: Thin prep Papanicolaou smear with manual screeningon 08-18-2022 Thin prep Papanicolaou smear with manual screening 27 U/L 15-37 [facility] Work Phone: Thin prep Papanicolaou smear with manual screening 5 5-15 [facility] Work Phone: Laboratory - Chemistry and C hemistry - challengeon 06-15-2022 T4 [Mass/Vol] 6.7 ug/dL 4.8-13.9 [facility] Work Phone: No Panel Informationon 06-15 Thyroid Stimulating Hormone (TSH) 3.26 uIU/mL 0.358-3.74 [facility] Work Phone: Laboratory - Chemistry and C hemistry - challengeon 03-17-2022 Free T4 [Mass/Vol] 0.96 ng/dL 0.76-1.46 [facility] Work Phone: No Panel Informationon 03-17 Free Triiodothyronine (T3) pg/dL 2.3 pg/mL 2.18-3.98 [facility] Work Phone: Thyroid Stimulating Hormone (TSH) 0.16 uIU/mL 0.358-3.74 [facility] Work Phone: CV VENOUS LEG RTon 2 CV VENOUS LEG RT [place] [address] Patient: RICHIE ARMAS Phone#: : 1950 Age: 71 Gender: F Pt. Type: Out Account: [id number] Location: [facility] Ordering: CHERY SUMMERS Exam Date: 03/04/2022/13:22 Family Phys: NARINDER CRUM Charge Code: [id number] Physician: Meigs Order #: [id number] DLP Dose#: PROCEDURE: VENOUS DOPPLER RT LEG COMPARISON: None. INDICATIONS: Pain TECHNIQUE: Color duplex Doppler ultrasound evaluation analysis was performed in the usual manner. LANDCARE OFFICER: SIA RISK FACTORS FOR VENOUS DISEASE: LE [...] PERONEAL V + GSV GASTROC SOLEAL V LANDCARE OFFICER'S NOTES: Nonvascular structure noted behind the knee Continued Report - Page 2 of 2 Patient: RICHIE ARMAS Phone#: : 1950 Age: 71 Gender: F Pt. Type: Out Account: [id number] Location: 052 Ordering: CHERY SUMMERS Exam Date: 03/04/2022/13:22 Family Phys: NARINDER CRUM Charge Code: [id number] Physician: Meigs Order #: [id number] DLP Dose#: FINDINGS: THROMBI: None visible. COMPRESSIBILITY: Normal. OTHER: Popliteal cyst is present. CONCLUSION: 1. There is no evidence of superficial or deep vein thrombus. Dictated by: Carrie Gooden MD on 03/04/2022 at 13:53 Approved by: Carrie Gooden MD on 03/04/2022 at 13:55 Normal [facility] EMERGENCY REPORTon 2 EMERGENCY REPORT [facility] EMERGENCY ROOM REPORT NAME ACCOUNT SEX AGE ADMIT DISCHARGE PT MED. RECORD# NUMBER DATE DATE TYPE PAWEL [id number] F 71 02/18/22 02/18/22 3 RICHIE [id number] ROOM: ER DATE OF : 1950 DICTATING [...] of 2 RICHIE ARMAS Emergency Room Report PAWELRICHIE NEWELL : 1950 OrthoGlass stirrup splint. Ice, elevation, limited weight bearing as tolerated. Tylenol and ibuprofen as needed. She is to follow up with Orthopedics in 4-5 days if pain persists. Return if symptoms worsen. Dictated By: Jace Mathews MD 02/18/22 10:51 JOB #: [id number] Transcribed By: ita 02/19/22 08:41 Electronically signed by: KOFFI Mathews M.D. 02/26/22 07:33 Page 2 of 2 RICHIE ARMAS Emergency Room Report Normal [facility] ANKLE COMPLETE RTon 02-19-20 ANKLE COMPLETE RT [place] [address] Patient: RICHIE ARMAS Phone#: : 1950 Age: 71 Gender: F Pt. Type: ER Account: [id number] Location: 052 Ordering: JACE MATHEWS Exam Date: 02/18/2022/10:24 Family Phys: NARINDER CRUM Charge Code: [id number] Physician: Meigs Order #: [id number] DLP Dose#: PROCEDURE: X-RAY ANKLE COMPLETE RT [...] Cardenas MD on 02/18/2022 at 10:45 Normal [facility] MR KNEE W/O LTon 02-04-2022 KNEE W/O [place] [address] Patient: RICHIE ARMAS Phone#: : 1950 Age: 71 Gender: F Pt. Type: Out Account: [id number] Location: Ordering: BRANDON SEXTON Exam Date: 02/04/2022/13:09 Family Phys: Charge Code: [id number] Physician: Meigs Order #: [id number] DLP Dose#: PROCEDURE: MRI KNEE LT WITHOUT [...] 71 Gender: F Pt. Type: Out Account: [id number] Location: Ordering: BRANDON SEXTON Exam Date: 02/04/2022/13:09 Family Phys: Charge Code: [id number] Physician: Meigs Order #: [id number] DLP Dose#: CONCLUSION: 1. Lateral meniscus posterior horn root attachment partial tear 2. Cartilage fissuring of the lateral tibial plateau and cartilage thinning medial patella facet 3. Partial ACL tear at the tibial attachment 4. Large ganglion posterior to the medial meniscus Dictated by: Farzaneh Cardenas MD on 02/08/2022 at 20:39 Approved by: Farzaneh Cardenas MD on 02/08/2022 at 20:50 Normal [facility] Absolute lymphocyte counton 12-21-2021 Lymphocytes Auto (Unsp spec) [#/Vol] 2.49 10*3/uL 0.83-4.51 [facility] Work Phone: Basophil percentageon 2021 Basophils/100 WBC (Bld) 0.7 % 0-1 [facility] Work Phone: Bilirubin [Mass/Vol] 0.30 mg/dL 0.20-1.00 [facility] Work Phone: Comment on above: For patients on eltr ombopag therapy, use of Dimension [place] TBIL is not recommended. Chloride [Moles/Vol] 104 mmol/L 98-107 [facility] Work Phone: Eosinophils/100 WBC (Bld) 1.5 % 0-5 [facility] Work Phone: Glucose [Mass/Vol] 86 mg/dL 74-106 [facility] Work Phone: Neutrophils (Bld) [#/Vol] 2.9 10*3/uL 2.0-7.7 [facility] Work Phone: Neutrophils/100 WBC (Bld) 46.4 % 47-70 [facility] Work Phone: Potassium [Moles/Vol] 4.0 mmol/L 3.5-5.[address] [facility] Work Phone: Protein [Mass/Vol] 7.9 g/dL 6.4-8.2 [facility] Work Phone: Sodium [Moles/Vol] 138 mmol/L 136-145 [facility] Work Phone: WBC (Bld) [#/Vol] 6.1 10*3/uL 4.4-11.0 [facility] Work Phone: Blood erythrocytes count (nu mber/volume)on 12-21-2021 RBC (Bld) [#/Vol] 4.71 10*6/uL 4.2-5.4 [facility] Work Phone: Blood hemoglobin measurement (mass/volume)on 12-21-2021 Hemoglobin (Bld) [Mass/Vol] 14.3 g/dL 12.0-15.0 [facility] Work Phone: Blood lymphocytes/100 leukoc yteson 12-21-2021 Lymphocytes/100 WBC (Bld) 40.6 % 19-41 [facility] Work Phone: Blood monocytes/100 leukocyt eson 12-21-2021 Monocytes/100 WBC (Bld) 10.6 % 0-10 [facility] Work Phone: Blood platelet mean volumeon 12-21-2021 Platelet mean volume (Bld) [Entitic vol] 10.9 fL 6.2-12.0 [facility] Work Phone: Determination of erythrocyte mean corpuscular volume (MCV)on 12-21-2021 MCV (RBC) [Entitic vol] 94.7 fL 81-99 [facility] Work Phone: [phone] Giardia lamblia ag stool EIA on 12-21-2021 G. lamblia Ag IA Ql (Stl) Negative Negative [facility] Work Phone: [phone] Comment on above: Performed at: [place] [id number] Director: Emery Hallman PhD, Phone: [phone] Hematocrit Auto (Bld) [Volum e fraction]on 12-21-2021 Hematocrit (Bld) [Volume fraction] 44.6 % 37-47 [facility] Work Phone: [phone] Laboratory - Chemistry and C hemistry - challengeon 12-21-2021 ALP [Catalytic activity/Vol] 96 U/L 45-117 [facility] Work Phone: [phone] ALT [Catalytic activity/Vol] 21 U/L 13-56 [facility] Work Phone: [phone] Amylase [Catalytic activity/Vol] 24 U/L 5-55 [facility] Work Phone: [phone] CO2 [Moles/Vol] 30.0 mmol/L 21.0-32.0 [facility] Work Phone: [phone] Globulin (S) [Mass/Vol] 4.1 g/dL 2.2-4.2 [facility] Work Phone: [phone] Lipase [Catalytic activity/Vol] 62 U/L 73-393 [facility] Work Phone: [phone] Magnesium [Mass/Vol] 2.5 mg/dL 1.6-2.6 [facility] Work Phone: [phone] Urea nitrogen/Creatinine [Mass ratio] 20.9 mg/mg 10-20 [facility] Work Phone: [phone] Laboratory - Hematology and Cell countson 12-21-2021 Erythrocyte distribution width (RBC) [Entitic vol] 45.6 fL 35.1-43.9 [facility] Work Phone: Erythrocyte distribution width (RBC) [Ratio] 13.0 % 11.6-14.6 [facility] Work Phone: [phone] Immature granulocytes/100 WBC (Bld) 0.200 % 0.0-0.9 [facility] Work Phone: [phone] Comment on above: IG% - Immature Granu locytes (promyelocytes, myelocytes and metamyelocytes) > 1% indicates that a LEFT SHIFT is Present. MCH (RBC) [Entitic mass] 30.4 pg 27.0-32.0 [facility] Work Phone: Nucleated RBC/100 WBC (Bld) [Ratio] 0 % 0-5 [facility] Work Phone: [phone] MCHC Auto (RBC) [Mass/Vol]on 12-21-2021 MCHC (RBC) [Mass/Vol] 32.1 g/dL 32-[address] [facility] Work Phone: No Panel Informationon 12-21 Anti-Gliadin IgA Antibody 4 units [facility] Work Phone: Comment on above: Negative 0 - 19 Weak Positive 20 - 30 Moderate to Strong Positive >30 Anti-Gliadin IgG Antibody 5 units [facility] Work Phone: [phone] Comment on above: Negative 0 - 19 Weak Positive 20 - 30 Moderate to Strong Positive >30 Endomysial IgA Antibody Negative Negative [facility] Work Phone: [phone] Estimated GFR (MDRD) Amer 89 mL/min >60 [facility] Work Phone: [phone] Comment on above: GFR Calc Estimated GFR (MDRD) Non-Af Amer 74 mL/min >60 [facility] Work Phone: [phone] Comment on above: Non- GFR Calc Tissue Transglutaminase IgG Ab 11 U/mL [facility] Work Phone: [phone] Comment on above: Negative 0 - 5 Weak Positive 6 - 9 Positive >9 Enteric Bacteriology [facility] Work Phone: Platelets bldon 01-31-2022 Platelets (Bld) [#/Vol] 265 10*3/uL 150-450 [facility] Work Phone: Serum IgA measurement (units /volume)on 12-21-2021 IgA Qn (S) 130 mg/dL [facility] Work Phone: Comment on above: Performed at: [address] [id number] Director: Emery Hallman PhD, Phone: [phone] Serum or plasma albumin jill urement (mass/volume)on 12-21-2021 Albumin [Mass/Vol] 3.8 g/dL 3.2-5.0 [facility] Work Phone: [phone] Serum or plasma albumin/glob ulin mass ratioon 12-21-2021 Albumin/Globulin [Mass ratio] 0.9 {ratio} 0.9-2.4 [facility] Work Phone: [phone] Serum or plasma calcium jill urement (mass/volume)on 12-21-2021 Calcium [Mass/Vol] 9.4 mg/dL 8.5-10.1 [facility] Work Phone: [phone] Serum or plasma creatinine m easurement (mass/volume)on 12-21-2021 Creatinine [Mass/Vol] 0.82 mg/dL 0.55-1.[address] [facility] Work Phone: Comment on above: The validity of the calculated GFR & GFRAA in patients over 70 years has not been determined. Clinical correlation is essential. Serum or plasma urea nitroge n measurement (mass/volume)on 12-21-2021 Urea nitrogen [Mass/Vol] 17 mg/dL 7-18 [facility] Work Phone: Serum tissue transglutaminas e IgA antibody assay (units/volume)on 12-21-2021 tTG IgA Qn (S) <2 U/mL [facility] Work Phone: Comment on above: Negative 0 - 3 Weak Positive 4 - 10 Positive >10 Tissue Transglutaminase (tTG) has been identified as the endomysial antigen. Studies have demonstr- ated that endomysial IgA antibodies have over 99% specificity for gluten sensitive enteropathy. Thin prep Papanicolaou smear with manual screeningon 12-21-2021 Thin prep Papanicolaou smear with manual screening 28 U/L 15-37 [facility] Work Phone: Thin prep Papanicolaou smear with manual screening 4 5-15 [facility] Work Phone: Absolute lymphocyte counton 12-14-2021 Lymphocytes Auto (Unsp spec) [#/Vol] 1.16 10*3/uL 0.83-4.51 [facility] Work Phone: Basophil percentageon 2021 Basophils/100 WBC (Bld) 0.5 % 0-1 [facility] Work Phone: Bilirubin [Mass/Vol] 0.20 mg/dL 0.20-1.00 [facility] Work Phone: Comment on above: For patients on eltr ombopag therapy, use of Dimension [place] TBIL is not recommended. Chloride [Moles/Vol] 102 mmol/L 98-107 [facility] Work Phone: Eosinophils/100 WBC (Bld) 0.0 % 0-5 [facility] Work Phone: Glucose [Mass/Vol] 116 mg/dL 74-106 [facility] Work Phone: Comment on above: Fasting Glucose resu lt from 100 to 125 mg/dL suggests IMPAIRED HOMEOSTASIS per A.D.A. criteria. Neutrophils (Bld) [#/Vol] 5.2 10*3/uL 2.0-7.7 [facility] Work Phone: Neutrophils/100 WBC (Bld) 78.5 % 47-70 [facility] Work Phone: Potassium [Moles/Vol] 4.7 mmol/L 3.5-5.[address] [facility] Work Phone: Protein [Mass/Vol] 7.3 g/dL 6.4-8.2 [facility] Work Phone: Sodium [Moles/Vol] 139 mmol/L 136-145 [facility] Work Phone: [phone] WBC (Bld) [#/Vol] 6.6 10*3/uL 4.4-11.0 [facility] Work Phone: Blood erythrocytes count (nu mber/volume)on 12-14-2021 RBC (Bld) [#/Vol] 4.40 10*6/uL 4.2-5.4 [facility] Work Phone: Blood hemoglobin measurement (mass/volume)on 12-14-2021 Hemoglobin (Bld) [Mass/Vol] 13.5 g/dL 12.0-15.0 [facility] Work Phone: [phone] Blood lymphocytes/100 leukoc yteson 12-14-2021 Lymphocytes/100 WBC (Bld) 17.7 % 19-41 [facility] Work Phone: [phone] Blood monocytes/100 leukocyt eson 12-14-2021 Monocytes/100 WBC (Bld) 3.0 % 0-10 [facility] Work Phone: [phone] Blood platelet mean volumeon 12-14-2021 Platelet mean volume (Bld) [Entitic vol] 11.1 fL 6.2-12.0 [facility] Work Phone: [phone] Determination of erythrocyte mean corpuscular volume (MCV)on 12-14-2021 MCV (RBC) [Entitic vol] 98.0 fL 81-99 [facility] Work Phone: Hematocrit Auto (Bld) [Volum e fraction]on 12-14-2021 Hematocrit (Bld) [Volume fraction] 43.1 % 37-47 [facility] Work Phone: [phone] Laboratory - Chemistry and C hemistry - challengeon 12-14-2021 ALP [Catalytic activity/Vol] 79 U/L 45-117 [facility] Work Phone: [phone] ALT [Catalytic activity/Vol] 15 U/L 13-56 [facility] Work Phone: [phone] CO2 [Moles/Vol] 29.0 mmol/L 21.0-32.0 [facility] Work Phone: [phone] Free T4 [Mass/Vol] 1.10 ng/dL 0.76-1.46 [facility] Work Phone: [phone] Globulin (S) [Mass/Vol] 3.5 g/dL 2.2-4.2 [facility] Work Phone: [phone] Urea nitrogen/Creatinine [Mass ratio] 32.8 mg/mg 10-20 [facility] Work Phone: [phone] Laboratory - Hematology and Cell countson 12-14-2021 Erythrocyte distribution width (RBC) [Entitic vol] 48.0 fL 35.1-43.9 [facility] Work Phone: [phone] Erythrocyte distribution width (RBC) [Ratio] 13.3 % 11.6-14.6 [facility] Work Phone: [phone] Immature granulocytes/100 WBC (Bld) 0.300 % 0.0-0.9 [facility] Work Phone: [phone] Comment on above: IG% - Immature Granu locytes (promyelocytes, myelocytes and metamyelocytes) > 1% indicates that a LEFT SHIFT is Present. MCH (RBC) [Entitic mass] 30.7 pg 27.0-32.0 [facility] Work Phone: [phone] Nucleated RBC/100 WBC (Bld) [Ratio] 0 % 0-5 [facility] Work Phone: [phone] MCHC Auto (RBC) [Mass/Vol]on 12-14-2021 MCHC (RBC) [Mass/Vol] 31.3 g/dL 32-[address] [facility] Work Phone: [phone] Panel Informationon 12-14 Estimated GFR (MDRD) Amer 101 mL/min >60 [facility] Work Phone: [phone] Comment on above: GFR Calc Estimated GFR (MDRD) Non-Af Amer 83 mL/min >60 [facility] Work Phone: Comment on above: Non- GFR Calc Thyroid Stimulating Hormone (TSH) 0.28 uIU/mL 0.358-3.74 [facility] Work Phone: Platelets bldon 12-14-2021 Platelets (Bld) [#/Vol] 272 10*3/uL 150-450 [facility] Work Phone: Serum or plasma albumin jill urement (mass/volume)on 12-14-2021 Albumin [Mass/Vol] 3.8 g/dL 3.2-5.0 [facility] Work Phone: Serum or plasma albumin/glob ulin mass ratioon 12-14-2021 Albumin/Globulin [Mass ratio] 1.1 {ratio} 0.9-2.4 [facility] Work Phone: Serum or plasma calcium jill urement (mass/volume)on 12-14-2021 Calcium [Mass/Vol] 9.0 mg/dL 8.5-10.1 [facility] Work Phone: Serum or plasma creatinine m easurement (mass/volume)on 12-14-2021 Creatinine [Mass/Vol] 0.73 mg/dL 0.55-1.[address] [facility] Work Phone: Comment on above: The validity of the calculated GFR & GFRAA in patients over 70 years has not been determined. Clinical correlation is essential. Serum or plasma urea nitroge n measurement (mass/volume)on 12-14-2021 Urea nitrogen [Mass/Vol] 24 mg/dL 7-18 [facility] Work Phone: Thin prep Papanicolaou smear with manual screeningon 12-14-2021 Thin prep Papanicolaou smear with manual screening 20 U/L 15-37 [facility] Work Phone: Thin prep Papanicolaou smear with manual screening 8 5-15 [facility] Work Phone: Absolute lymphocyte counton 12-09-2021 Lymphocytes Auto (Unsp spec) [#/Vol] 1.65 10*3/uL 0.83-4.51 [facility] Work Phone: Basophil percentageon 2021 Basophils/100 WBC (Bld) 0.7 % 0-1 [facility] Work Phone: Chloride [Moles/Vol] 103 mmol/L 98-107 [facility] Work Phone: Eosinophils/100 WBC (Bld) 1.5 % 0-5 [facility] Work Phone: Glucose [Mass/Vol] 102 mg/dL 74-106 [facility] Work Phone: Comment on above: Fasting Glucose resu lt from 100 to 125 mg/dL suggests IMPAIRED HOMEOSTASIS per A.D.A. criteria. Neutrophils (Bld) [#/Vol] 1.9 10*3/uL 2.0-7.7 [facility] Work Phone: Neutrophils/100 WBC (Bld) 47.2 % 47-70 [facility] Work Phone: Potassium [Moles/Vol] 4.2 mmol/L 3.5-5.[address] [facility] Work Phone: Sodium [Moles/Vol] 138 mmol/L 136-145 [facility] Work Phone: WBC (Bld) [#/Vol] 4.1 10*3/uL 4.4-11.0 [facility] Work Phone: Blood erythrocytes count (nu mber/volume)on 12-09-2021 RBC (Bld) [#/Vol] 4.35 10*6/uL 4.2-5.4 [facility] Work Phone: Blood hemoglobin measurement (mass/volume)on 12-09-2021 Hemoglobin (Bld) [Mass/Vol] 13.2 g/dL 12.0-15.0 [facility] Work Phone: Blood lymphocytes/100 leukoc yteson 12-09-2021 Lymphocytes/100 WBC (Bld) 40.0 % 19-41 [facility] Work Phone: Blood monocytes/100 leukocyt eson 12-09-2021 Monocytes/100 WBC (Bld) 10.4 % 0-10 [facility] Work Phone: [phone] Blood platelet mean volumeon 12-09-2021 Platelet mean volume (Bld) [Entitic vol] 10.9 fL 6.2-12.0 [facility] Work Phone: [phone] Determination of erythrocyte mean corpuscular volume (MCV)on 12-09-2021 MCV (RBC) [Entitic vol] 94.5 fL 81-99 [facility] Work Phone: [phone] Hematocrit Auto (Bld) [Volum e fraction]on 12-09-2021 Hematocrit (Bld) [Volume fraction] 41.1 % 37-47 [facility] Work Phone: [phone] Laboratory - Chemistry and C hemistry - challengeon 12-09-2021 CO2 [Moles/Vol] 30.0 mmol/L 21.0-32.0 [facility] Work Phone: [phone] Urea nitrogen/Creatinine [Mass ratio] 30.8 mg/mg 10-20 [facility] Work Phone: [phone] Laboratory - Hematology and Cell countson 12-09-2021 Erythrocyte distribution width (RBC) [Entitic vol] 46.5 fL 35.1-43.9 [facility] Work Phone: [phone] Erythrocyte distribution width (RBC) [Ratio] 13.2 % 11.6-14.6 [facility] Work Phone: [phone] Immature granulocytes/100 WBC (Bld) 0.200 % 0.0-0.9 [facility] Work Phone: [phone] Comment on above: IG% - Immature Granu locytes (promyelocytes, myelocytes and metamyelocytes) > 1% indicates that a LEFT SHIFT is Present. MCH (RBC) [Entitic mass] 30.3 pg 27.0-32.0 [facility] Work Phone: Nucleated RBC/100 WBC (Bld) [Ratio] 0 % 0-5 [facility] Work Phone: MCHC Auto (RBC) [Mass/Vol]on 12-09-2021 MCHC (RBC) [Mass/Vol] 32.1 g/dL 32-[address] [facility] Work Phone: No Panel Informationon 12-09 Estimated Creatinine Clearance Calc 43.30 ml/min [facility] Work Phone: Estimated GFR (MDRD) Amer 94 mL/min >60 [facility] Work Phone: Comment on above: GFR Calc Estimated GFR (MDRD) Non-Af Amer 78 mL/min >60 [facility] Work Phone: Comment on above: Non- GFR Calc Troponin I High Sensitivity 6 pg/mL 3.0-54.0 [facility] Work Phone: Comment on above: Please Note: New Crystal t Units and Gender Specific Reference Ranges. For more information see Policy Stat Procedure [place] High Sensitivity Troponin (TNIH) and attachments. Platelets bldon 12-09-2021 Platelets (Bld) [#/Vol] 230 10*3/uL 150-450 [facility] Work Phone: Serum or plasma calcium jill urement (mass/volume)on 12-09-2021 Calcium [Mass/Vol] 9.2 mg/dL 8.5-10.1 [facility] Work Phone: Serum or plasma creatinine m easurement (mass/volume)on 12-09-2021 Creatinine [Mass/Vol] 0.78 mg/dL 0.55-1.[address] [facility] Work Phone: Comment on above: The validity of the calculated GFR & GFRAA in patients over 70 years has not been determined. Clinical correlation is essential. Serum or plasma urea nitroge n measurement (mass/volume)on 12-09-2021 Urea nitrogen [Mass/Vol] 24 mg/dL 7-18 [facility] Work Phone: Thin prep Papanicolaou smear with manual screeningon 12-09-2021 Thin prep Papanicolaou smear with manual screening 5 5-15 [facility] Work Phone: Vital Signs Date Time Vital Sign Value Performing Clinician Faci lity 06-28-2025 17:38-0400 Body temperature 98.7 [degF] Dr. Narinder Crum MD Work Phone: [facility] 06-28-2025 17:38-0400 Diastolic blood pressure 82 mm[Hg] Dr. Narinder Crum MD Work Phone: [facility] 06-28-2025 17:38-0400 Heart rate 81 /min Dr. Narinder Crum MD Work Phone: [facility] 06-28-2025 17:38-0400 Respiratory rate 18 /min Dr. Narinder Crum MD Work Phone: [facility] 06-28-2025 17:38-0400 SaO2% (BldA) [Mass fraction] 100 % Dr. Narinder Crum MD Work Phone: [facility] 06-28-2025 17:38-0400 Systolic blood pressure 168 mm[Hg] Dr. Narinder Crum MD Work Phone: [facility] 06-28-2025 15:46-0400 Body height 160.[address] Narinder Crum MD Work Phone: [facility] 06-28-2025 15:46-0400 Body mass index (BMI) [Ratio] 23.6 kg/m2 Dr. Narinder Crum MD Work Phone: [facility] 06-28-2025 15:46-0400 Body weight 60.[address] Narinder Crum MD Work Phone: [facility] 06-27-2025 09:07-0400 Body temperature 98.29 [degF] Gokul Chavarria DO Work Phone: [facility] 06-27-2025 09:07-0400 Diastolic blood pressure 80 mm[Hg] Gokul Chavarria DO Work Phone: [facility] 06-27-2025 09:07-0400 Heart rate 75 /min Gokul Chavarria DO Work Phone: [employer] 06-27-2025 09:07-0400 Respiratory rate 18 /min Gokul Chavarria DO Work Phone: [employer] 06-27-2025 09:07-0400 SaO2% (BldA) [Mass fraction] 94 % Gokul Chavarria DO Work Phone: [employer] 06-27-2025 09:07-0400 Systolic blood pressure 165 mm[Hg] Gokul Chavarria DO Work Phone: [employer] 06-25-2025 15:58-0400 Body mass index (BMI) [Ratio] 23.61 kg/m2 Gokul Chavarria DO Work Phone: [employer] 06-25-2025 15:58-0400 Body weight 60.46 kg Gokul Chavarria DO Work Phone: [facility] [employer] 06-25-2025 11:57-0400 Body height 160 cm Gokul Chavarria DO Work Phone: [employer] 06-22-2025 07:47-0400 Body temperature 98.4 [degF] Selvin Radford Work Phone: [employer] 06-22-2025 07:47-0400 Diastolic blood pressure 68 mm[Hg] Selvin Lynch MD Work Phone: [employer] 06-22-2025 07:47-0400 Heart rate 71 /min Selvin Radford Work Phone: [employer] 06-22-2025 07:47-0400 Respiratory rate 16 /min Selvin Radford Work Phone: [employer] 06-22-2025 07:47-0400 SaO2% (BldA) [Mass fraction] 96 % Selvin Lynch MD Work Phone: [employer] 06-22-2025 07:47-0400 Systolic blood pressure 147 mm[Hg] Selvin Lynch MD Work Phone: [facility] 06-22-2025 06:22-0400 Body mass index (BMI) [Ratio] 24.57 kg/m2 Selvin Lynch MD Work Phone: [facility] 06-22-2025 06:22-0400 Body weight 62.91 kg Selvin Radford Work Phone: [facility] 06-19-2025 08:26-0400 SaO2% (BldA) [Mass fraction] 98.9 % Selvin Lynch MD Work Phone: [facility] 06-19-2025 08:00-0400 Body height 160 cm Selvin Radford Work Phone: [facility] 06-19-2025 05:08-0400 SaO2% (BldA) [Mass fraction] 97.8 % Selvin Lynch MD Work Phone: [facility] 06-19-2025 03:24-0400 SaO2% (BldA) [Mass fraction] 97.8 % Selvin Lynch MD Work Phone: [facility] 06-19-2025 00:54-0400 SaO2% (BldA) [Mass fraction] 97.1 % Selvin Lynch MD Work Phone: [facility] 06-18-2025 19:44-0400 SaO2% (BldA) [Mass fraction] 98.4 % Selvin Lynch MD Work Phone: [facility] 06-18-2025 15:39-0400 SaO2% (BldA) [Mass fraction] 99.8 % Selvin Lynch MD Work Phone: [facility] 06-14-2025 15:23-0400 Body temperature 98.1 [degF] Dr. Narinder Crum MD Work Phone: [facility] 06-14-2025 15:23-0400 Diastolic blood pressure 103 mm[Hg] Dr. Narinder Crum MD Work Phone: [facility] 06-14-2025 15:23-0400 Heart rate 75 /min Dr. Narinder Crum MD Work Phone: [facility] 06-14-2025 15:23-0400 Respiratory rate 16 /min Dr. Narinder Crum MD Work Phone: 8(063)379-795703 [place] [address] 06-14-2025 15:23-0400 SaO2% (BldA) [Mass fraction] 98 % Dr. Narinder Crum MD Work Phone: 9(663)528-442315 [place] [address] 06-14-2025 15:23-0400 Systolic blood pressure 152 mm[Hg] Dr. Narinder Crum MD Work Phone: 7(156)319-138803 [place] [address] 06-14-2025 10:38-0400 Body height 160.[address] Narinder Crum MD Work Phone: 1(425)915-923803 [place] [address] 06-14-2025 10:38-0400 Body weight [address] Narinder Crum MD Work Phone: 7(782)134-221603 [place] [address] 06-14-2025 06:55-0400 Inhaled oxygen flow rate 2 L/min Dr. Narinder Crum MD Work Phone: 1(095)861-551103 [place] [address] 06-14-2025 05:16-0400 Body mass index (BMI) [Ratio] 24.5 kg/m2 Dr. Narinder Crum MD Work Phone: 5(597)750-655803 [place] [address] 06-13-2025 20:03-0400 Body temperature 98.4 [degF] Dr. Narinder Crum MD Work Phone: [facility] 06-13-2025 20:03-0400 Diastolic blood pressure 89 mm[Hg] Dr. Narinder Crum MD Work Phone: 5(957)887-885747 [address] 06-13-2025 20:03-0400 Heart rate 75 /min Dr. Narinder Crum MD Work Phone: 0(153)340-746115 [place] [address] 06-13-2025 20:03-0400 Respiratory rate 16 /min Dr. Narinder Crum MD Work Phone: 8(471)349-846915 [place] [address] 06-13-2025 20:03-0400 SaO2% (BldA) [Mass fraction] 100 % Dr. Narinder Crum MD Work Phone: 0(355)263-260915 [place] [address] 06-13-2025 20:03-0400 Systolic blood pressure 165 mm[Hg] Dr. Narinder Crum MD Work Phone: 7(299)652-587703 [place] [address] 06-13-2025 19:29-0400 Inhaled oxygen flow rate 2 L/min Dr. Narinder Crum MD Work Phone: 3(971)424-949303 [place] [address] 06-13-2025 17:30-0400 Body height 160.[address] Narinder Crum MD Work Phone: 5(132)243-309903 [place] [address] 06-13-2025 17:30-0400 Body mass index (BMI) [Ratio] 23.6 kg/m2 Dr. Narinder Crum MD Work Phone: 7(565)758-457203 [place] [address] 06-13-2025 17:30-0400 Body weight 60.[address] Narinder Crum MD Work Phone: 1(675)699-820703 [place] [address] 01-25-2025 13:08-0500 Body height 160.[address] Narinder Crum MD Work Phone: 9(985)310-011803 [place] [address] 01-25-2025 13:08-0500 Body mass index (BMI) [Ratio] 27.1 kg/m2 Dr. Narinder Crum MD Work Phone: 7(584)075-943303 [place] [address] 01-25-2025 13:08-0500 Body weight 69.[address] Narinder Crum MD Work Phone: 5(514)675-714603 [place] [address] 12-20-2023 17:49-0500 Diastolic blood pressure 86 mm[Hg] [facility] 12-20-2023 17:49-0500 Heart rate 74 /min [facility] 12-20-2023 17:49-0500 Respiratory rate 16 /min [facility] 12-20-2023 17:49-0500 SaO2% (BldA) [Mass fraction] 95 % [facility] 12-20-2023 17:49-0500 Systolic blood pressure 161 mm[Hg] [facility] 12-20-2023 14:08-0500 Body height 160.02 cm [facility] 12-20-2023 14:08-0500 Body mass index (BMI) [Ratio] 29.7 kg/m2 [facility] 12-20-2023 14:08-0500 Body temperature 97.3 [degF] [facility] 12-20-2023 14:08-0500 Body weight 76.2 kg [facility] 01-03-2023 09:23-0500 Body temperature 98 [degF] Dr. Narinder Crum Work Phone: [facility] 01-03-2023 09:23-0500 Diastolic blood pressure 76 mm[Hg] Dr. Narinder Crum Work Phone: [facility] 01-03-2023 09:23-0500 Heart rate 80 /min Dr. Narinder Crum Work Phone: [facility] 01-03-2023 09:23-0500 Respiratory rate 14 /min Dr. Narinder Crum Work Phone: [facility] 01-03-2023 09:23-0500 SaO2% (BldA) [Mass fraction] 96 % Dr. Narinder Crum Work Phone: [facility] 01-03-2023 09:23-0500 Systolic blood pressure 128 mm[Hg] Dr. Narinder Crum Work Phone: [facility] 09-05-2022 07:11-0400 Body height 160.02 cm [facility] Work Phone: 09-05-2022 07:11-0400 Body mass index (BMI) [Ratio] 26.6 kg/m2 [facility] Work Phone: 09-05-2022 07:11-0400 Body temperature 97.4 [degF] [facility] Work Phone: 09-05-2022 07:11-0400 Body weight 68.1 kg [facility] Work Phone: 09-05-2022 07:11-0400 Diastolic blood pressure 84 mm[Hg] [facility] Work Phone: 09-05-2022 07:11-0400 Heart rate 71 /min [facility] Work Phone: 09-05-2022 07:11-0400 Respiratory rate 16 /min [facility] Work Phone: 09-05-2022 07:11-0400 SaO2% (BldA) [Mass fraction] 98 % [facility] Work Phone: 09-05-2022 07:11-0400 Systolic blood pressure 150 mm[Hg] [facility] Work Phone: 12-09-2021 14:30-0500 Diastolic blood pressure 77 mm[Hg] [facility] Work Phone: 12-09-2021 14:30-0500 Heart rate 68 /min [facility] Work Phone: 12-09-2021 14:30-0500 Respiratory rate 15 /min [facility] Work Phone: 12-09-2021 14:30-0500 SaO2% (BldA) [Mass fraction] 97 % [facility] Work Phone: 12-09-2021 14:30-0500 Systolic blood pressure 125 mm[Hg] [facility] Work Phone: 12-09-2021 12:04-0500 Body height 160.02 cm [facility] Work Phone: 12-09-2021 12:04-0500 Body mass index (BMI) [Ratio] 28.8 kg/m2 [facility] Work Phone: 12-09-2021 12:04-0500 Body temperature 98.5 [degF] [facility] Work Phone: 12-09-2021 12:04-0500 Body weight 73.93 kg [facility] Work Phone: Encounters Encounter Date Encounter Type Care Provider Facility Start: 07-19-2025 ambulatory Narinder Crum Facility:[facility] Start: 07-02-2025 End: 07-02-2025 ambulatory Janelle Carroll RN [facility] Start: 07-02-2025 End: 07-04-2025 Telephone encounter Thierno Reeder 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 - JIRA ADMINISTRATOR Work Phone: [facility] Thoracic [facility] [place] Comment on above: Other (Pt. Admit Eas t [facility] ) Start: 06-29-2025 End: 07-01-2025 [facility] Start: 06-28-2025 End: 06-28-2025 Emergency department patient visit Dr. 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); Stroke, recent, without late effect Start: 06-23-2025 End: 06-23-2025 Telephone encounter Anders Johnston DO Work Phone: [facility] Thoracic [facility] [place] Comment on above: Other (Page out) Start: 06-18-2025 End: 06-18-2025 Evaluation and management of inpatient Naresh Lim MD Work Phone: [facility] MAIN OR Start: 06-14-2025 End: 06-22-2025 Evaluation and management of inpatient Selvin Lynch MD Work Phone: [facility] Cardiac Thoracic Vascular Intensive Care Unit CTV ICU T1 Start: 06-14-2025 Non-patient / Non-visit Dr. Thelma Fuentes [facility] Work Phone: Start: 06-14-2025 Non-patient / Non-visit Dr. Edil Hong MD -[facility] Start: 06-13-2025 ambulatory Narinder Crum Facility:[facility] Start: 06-13-2025 End: 06-14-2025 Evaluation and management of inpatient Dr. Hui Morel MD -Intensive Care Unit Work Phone: Start: 03-15-2025 End: 03-15-[address] Narinder Crum MD Work Phone: [facility] Work Phone: Start: 03-15-2025 End: 03-15-[address] Narinder Crum MD Work Phone: -[facility] Work Phone: Start: 03-15-2025 End: 03-15-2025 ambulatory XAVI TAYLOR Facility:[facility] Start: 02-05-2025 End: 03-05-2025 ambulatory NARINDER CRUM MD Facility:[facility] Start: 01-25-2025 End: 01-25-2025 Patient encounter procedure Ruthann OWEN -[facility] Work Phone: Start: 01-25-2025 End: 01-25-2025 ambulatory Narinder Crum Facility:[facility] Start: 10-30-2024 End: 10-30-[address] Narinder Crum MD Work Phone: [facility] Work Phone: Start: 10-30-2024 End: 10-30-[address] Narinder Crum MD Work Phone: -Outpatient Bone Densitometry Work Phone: Start: 10-30-2024 End: 10-30-2024 ambulatory Narinder Crum Facility:[facility] Start: 03-05-2024 End: 03-05-2024 ambulatory [facility] Work Phone: Start: 03-05-2024 End: 03-05-2024 Patient encounter procedure [facility] Work Phone: Start: 12-20-2023 End: 12-20-2023 Emergency department patient visit [facility]-Emergency Department Work Phone: Start: 09-22-2023 End: 09-22-2023 Patient encounter procedure [facility]-Outpatient Breast Imaging Work Phone: Start: 06-30-2023 End: 06-30-2023 ambulatory [facility] Work Phone: Start: 06-30-2023 End: 06-30-2023 Discharged Recurring [facility]-Physical Therapy Work Phone: Start: 02-08-2023 End: 02-08-[address] Narinder Crum Work Phone: [facility] Work Phone: Start: 02-08-2023 End: 02-08-[address] Narinder Crum Work Phone: [facility] Start: 01-03-2023 End: 01-03-[address] Narinder Crum Work Phone: [facility] Start: 09-05-2022 End: 09-05-2022 Emergency department patient visit [facility]-Emergency Department Start: 08-31-2022 End: 08-31-2022 ambulatory [facility] Work Phone: Start: 08-31-2022 End: 08-31-2022 Patient encounter procedure [facility]-Outpatient Bone Densitometry Start: 08-18-2022 End: 08-18-2022 ambulatory [facility] Work Phone: Start: 08-18-2022 End: 08-18-2022 Patient encounter procedure [facility] Start: 06-15-2022 End: 06-15-2022 Patient encounter procedure [facility] Start: 04-07-2022 End: 04-26-2022 ambulatory NARINDER CRUM [facility] Start: 03-17-2022 End: 03-17-2022 Patient encounter procedure [facility] Start: 03-15-2022 End: 04-13-2022 ambulatory CHERY DPM [facility] Start: 03-04-2022 End: 03-04-2022 ambulatory CHERY DPM [facility] Start: 02-18-2022 End: 02-18-2022 Emergency department patient visit DR JACE MATHEWS [facility] Start: 02-04-2022 End: 02-04-2022 ambulatory BRANDON HOWARD SEXTON [facility] Start: 12-21-2021 End: 12-21-2021 Patient encounter procedure [facility] Start: 12-14-2021 End: 12-14-2021 Patient encounter procedure [facility] Start: 12-09-2021 End: 12-09-2021 [facility] Date Procedure Procedure Detail Performing Clinician Start: 06-28-[address] Narinder Crum MD Work Phone: Start: 06-28-2025 Urnls dip stick/tabl et reagent auto microscopy Dr. Narinder Crum MD Work Phone: Start: 06-27-2025 Cyanocobalamin vitam in b-12 Teresita Herr Dot 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 - JIRA ADMINISTRATOR Work Phone: Start: 06-25-2025 Echo tthrc r-t 2d w/wom-mode compl spec&colr d Annette Saldana 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 - CLINICAL TRIAL ASSISTANT Work Phone: Start: 06-25-2025 Dup-scan xtr veins complete bilateral study Annette Saldana 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 - CLINICAL TRIAL ASSISTANT Work Phone: Start: 06-25-2025 Assay of troponin quantitative Hernesto Perez NP Work Phone: Start: 06-25-2025 Ecg routine ecg w/le ast 12 lds trcg only w/o i&r Lucho Longoria PA-C Work Phone: Start: 06-25-2025 Comprehensive metabo lic panel Marry Berger MD Work Phone: Start: 06-24-2025 Mri brain brain stem w/o contrast material Marry Berger MD Work Phone: Start: 06-24-2025 Urnls dip stick/tabl et rgnt auto w/o microscopy Lucho Longoria PA-C Work Phone: Start: 06-24-2025 Assay of free thyroxine Marry Berger MD Work Phone: Start: 06-24-2025 Assay of magnesium Gabrielle Berger MD Work Phone: Start: 06-24-2025 Ct angiography head w/contrast/noncontrast Gokul Chavarria DO Work Phone: Start: 06-24-2025 End: 06-24-2025 Comprehensive metabolic panel Lucho Longoria PA-C Work Phone: Start: 06-24-2025 Radiologic exam ches t single view Lucho Longoria PA-C Work Phone: Start: 06-24-2025 Ecg routine ecg w/le ast 12 lds trcg only w/o i&r Gokul Chavarria DO Work Phone: Start: 06-24-2025 Thyrotropin [Units/volume] in Serum or Plasma Anders Johnston DO Work Phone: Start: 06-22-2025 Radiologic exam ches t single view Fiona Vega 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 - JIRA ADMINISTRATOR Work Phone: Start: 06-22-2025 Compatibility each u nit electronic Fiona Vega 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 - JIRA ADMINISTRATOR Work Phone: Start: 06-22-2025 Basic metabolic pane l calcium total Fiona Vega 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 - JIRA ADMINISTRATOR Work Phone: Start: 06-21-2025 Radiologic exam ches t single view Fiona Vega 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 - JIRA ADMINISTRATOR Work Phone: Start: 06-21-2025 Basic metabolic pane l calcium total Fiona A. Gary 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 - JIRA ADMINISTRATOR Work Phone: Start: 06-20-2025 Glucose quantitative blood xcpt reagent strip Anders Johnston DO Work Phone: Start: 06-20-2025 Radiologic exam ches t single view Fiona A. Gary 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 - JIRA ADMINISTRATOR Work Phone: Start: 06-20-2025 Ecg routine ecg w/le ast 12 lds trcg only w/o i&r Fiona A. Gary 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 - JIRA ADMINISTRATOR Work Phone: Start: 06-20-2025 Basic metabolic pane l calcium total Fioan A. Gary 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 - JIRA ADMINISTRATOR Work Phone: Start: 06-19-2025 Glucose quantitative blood xcpt reagent strip Anders Johnston DO Work Phone: Start: 06-19-2025 Glucose quantitative blood xcpt reagent strip Anders Johnston DO Work Phone: Start: 06-19-2025 Glucose quantitative blood xcpt reagent strip Anders Johnston DO Work Phone: Start: 06-19-2025 Glucose quantitative blood xcpt reagent strip Anders Johnston DO Work Phone: Start: 06-19-2025 Blood gases any combination ph pco2 po2 co2 hco3 Fiona Constance. Gary 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 - JIRA ADMINISTRATOR Work Phone: Start: 06-19-2025 Ecg routine ecg w/le ast 12 lds trcg only w/o i&r Fiona A. Emilyarvindkobe 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 - JIRA ADMINISTRATOR Work Phone: Start: 06-19-2025 Radiologic exam ches t single view Fiona Constance. Gray 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 - JIRA ADMINISTRATOR Work Phone: Start: 06-19-2025 Glucose quantitative blood xcpt reagent strip Anders Johnston DO Work Phone: Start: 06-19-2025 Blood gases any combination ph pco2 po2 co2 hco3 Sharee Grande MD Work Phone: Start: 06-19-2025 Blood gases any combination ph pco2 po2 co2 hco3 Fiona Muñiz Gary 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 - JIRA ADMINISTRATOR Work Phone: Start: 06-19-2025 End: 06-19-2025 Glucose quantitative blood xcpt reagent strip Anders Johnston DO Work Phone: Start: 06-19-2025 Blood gases any combination ph pco2 po2 co2 hco3 Fiona Muñiz Gary 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 - JIRA ADMINISTRATOR Work Phone: Start: 06-19-2025 End: 06-19-2025 Basic metabolic panel calcium total Fiona Muñiz Gary 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 - JIRA ADMINISTRATOR Work Phone: Start: 06-18-2025 Glucose quantitative blood xcpt reagent strip Anders Johnston DO Work Phone: Start: 06-18-2025 EXTUBATION Sharee Rangel MD Work Phone: Start: 06-18-2025 RESPIRATORY THERAPY COMMUNICATION ORDER Sharee Grande MD Work Phone: Start: 06-18-2025 End: 06-18-2025 Glucose quantitative blood xcpt reagent strip Anders Johnston DO Work Phone: Start: 06-18-2025 End: 06-18-2025 Blood count hematocrit Latrell Kidd DO Work Phone: Start: 06-18-2025 Blood gases any combination ph pco2 po2 co2 hco3 Fiona ConstanceMilana Vega 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 - JIRA ADMINISTRATOR Work Phone: Start: 06-18-2025 Glucose quantitative blood xcpt reagent strip Anders Johnston DO Work Phone: Start: 06-18-2025 Compatibility each u nit electronic Latrell Kidd DO Work Phone: Start: 06-18-2025 End: 06-18-2025 TRANSFUSE RED BLOOD CELLS Latrell Kidd DO Work Phone: Start: 06-18-2025 Ecg routine ecg w/le ast 12 lds trcg only w/o i&r Fiona ConstanceMilana Vega 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 - JIRA ADMINISTRATOR Work Phone: Start: 06-18-2025 End: 06-18-2025 Radiologic exam chest single view Anders Johnston DO Work Phone: Start: 06-18-2025 End: 06-18-2025 Basic metabolic panel calcium total Sandip Quezada MD Work Phone: Start: 06-18-2025 Blood gases any combination ph pco2 po2 co2 hco3 Sandip Quezada MD Work Phone: Start: 06-18-2025 Insj non-tunneled ce ntral venous cath age 6 yr/> Naresh Motta MERCHANDISE PRESENTATION ASSOCIATE Start: 06-18-2025 NH AN CENTRAL LINE S DAVID LUMEN Naresh Motta MERCHANDISE PRESENTATION ASSOCIATE Start: 06-18-2025 Us vasc access sits vsl patency ndl entry Naresh Motta MERCHANDISE PRESENTATION ASSOCIATE Start: 06-18-2025 NH AN ELECTIVE ENDOTRACHEAL AIRWAY Naresh Motta MERCHANDISE PRESENTATION ASSOCIATE Start: 06-18-2025 ANESTHESIA ARTERIAL LINE PLACEMENT Naresh Motta MERCHANDISE PRESENTATION ASSOCIATE Start: 06-18-2025 End: 06-18-2025 Cabg w/arterial graft three arterial grafts Anders Johnston DO Work Phone: Start: 06-18-2025 End: 06-18-2025 Echo transesophag r-t 2d w/prb img acquisj i&r Anders Johnston DO Work Phone: Start: 06-18-2025 Ecg routine ecg w/le ast 12 lds trcg only w/o i&r Shayna M Gaviotaer DO Work Phone: Start: 06-18-2025 Thromboplastin time partial plasma/whole blood Jovanny Bello DO Work Phone: Start: 06-18-2025 Radiologic exam ches t single view Thierno Hopkins DO Work Phone: Start: 06-18-2025 Assay of troponin quantitative Thierno Hopkins DO Work Phone: Start: 06-18-2025 End: 06-18-2025 Ecg routine ecg w/least 12 lds trcg only w/o i&r Jovanny Bello DO Work Phone: Start: 06-18-2025 Antibody screen THELMA CASS SANCHEZ Comment on above: Order Comment: Speci men is valid for 3 days - nurse to verify valid specimen Performed By: #### L [id number] ####Flight Line Service Attendant: MIGUEL LEAL ([phone])[facility] ([facility])[address] [place] [address] Start: 06-18-2025 ABO and Rh group [Ty pe] in Blood by Confirmatory method Fiona Vega 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[employer] Work Phone: Start: 06-18-2025 Blood typing serolog ic rh (d) Fiona Vega 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 [employer] Work Phone: Start: 06-18-2025 Comprehensive metabo lic panel Jovanny Bello DO Work Phone: Start: 06-17-2025 Iadna s aureus methicillin resist amp probe tq Fiona Vega 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 - [employer] Work Phone: Start: 06-17-2025 BEDSIDE SPIROMETRY Fiona Vega 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 - [employer] Work Phone: Start: 06-17-2025 Dup-scan xtr veins complete bilateral study Fiona Vega 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 - [employer] Work Phone: Start: 06-17-2025 Duplex scan extracra nial art compl bi study Fiona Vega 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 - [employer] Work Phone: Start: 06-17-2025 Ecg routine ecg w/le ast 12 lds trcg only w/o i&r Jovanny Bello DO Work Phone: Start: 06-17-2025 Comprehensive metabo lic panel Jovanny Bello DO Work Phone: Start: 06-16-2025 Ct thorax w/o contra st material Fiona Vega 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 - [employer] Work Phone: Start: 06-16-2025 Radiologic exam abdo men 1 view Shayna M Gaviotaer DO Work Phone: Start: 06-16-2025 Creatine kinase total M inh Bello DO Work Phone: Start: 06-16-2025 Ecg routine ecg w/le ast 12 lds trcg only w/o i&r Jovanny Bello DO Work Phone: Start: 06-16-2025 Creatine kinase total M inh Bello DO Work Phone: Start: 06-16-2025 Thromboplastin time partial plasma/whole blood Jovanny Bello DO Work Phone: Start: 06-16-2025 Ecg routine ecg w/le ast 12 lds trcg only w/o i&r Philip Burrlel DO Work Phone: Start: 06-16-2025 Comprehensive metabo lic panel Jovanny Bello DO Work Phone: Start: 06-15-2025 Creatine kinase total M inh Bello DO Work Phone: Start: 06-15-2025 Echo tthrc r-t 2d w/wom-mode compl spec&colr d Jovanny Bello DO Work Phone: Start: 06-15-2025 Creatine kinase total M inh Bello DO Work Phone: Start: 06-15-2025 Creatine kinase total M inh Bello DO Work Phone: Start: 06-15-2025 Ecg routine ecg w/le ast 12 lds trcg only w/o i&r Jovanny Bello DO Work Phone: Start: 06-15-2025 Lipid 1996 panel - S fernando or Plasma Naresh Lim MD Work Phone: Start: 06-15-2025 Comprehensive metabo lic panel Jovanny Bello DO Work Phone: Start: 06-15-2025 Lipid panel Jovanny Bello DO Work Phone: Start: 06-14-2025 Assay of troponin quantitative Jovanny Bello DO Work Phone: Start: 06-14-2025 Assay of troponin quantitative Jovanny Bello DO Work Phone: Start: 06-14-2025 Comprehensive metabo lic panel Jovanny Bello DO Work Phone: Start: 06-14-2025 Ecg routine ecg w/le ast 12 lds trcg only w/o i&r Jovanny Bello DO Work Phone: Start: 06-14-2025 Thyrotropin [Units/volume] in Serum or Plasma Anders Johnston DO Work Phone: Start: 06-14-[address] Narinder Crum MD Work Phone: Start: 06-13-2025 Plain chest X-ray Dr. Esther Crum MD Work Phone: Start: 06-13-[address] Narinder Crum MD Work Phone: Start: 03-15-2025 Plain X-ray abdomen Dr. Narinder Crum MD Work Phone: Start: 01-25-2025 X-ray of cervical spine Dr. Narinder Crum MD Work Phone: Start: 10-30-2024 Dual energy X-ray absorptiometry Dr. Narinder Crum MD Work Phone: Start: 10-30-2024 End: 10-30-[address] Narinder Crum MD Work Phone: Start: 12-20-2023 Plain chest X-ray Start: 09-22-2023 Screening mammography Start: 09-05-2022 Plain chest X-ray Start: 08-31-2022 Dual energy X-ray absorptiometry Start: 08-31-2022 Screening mammography Start: 12-21-2021 Enteric Bacteriology Start: 12-09-2021 Plain chest X-ray History of coronary artery bypass grafting S/P CABG (coronary artery bypass graft) Selvin Lynch MD Work Phone: History of coronary artery bypass grafting Hx of CABG Dr. Narinder Crum MD Work Phone: Plan of Treatment Date Care Activity Detail Author Start: 07-27-2034 DTaP/Tdap/Td Vaccines (3 - Td or Tdap) DTaP/Tdap/Td Vaccines (3 - Td or Tdap) [facility] Start: 07-27-2034 [facility] Start: 06-15-2030 Lipid panel [facility] Start: 06-24-2026 Thyroid stimulating hormone measurement TSH Level [facility] Start: 06-16-2026 Diabetes mellitus screening [facility] Start: 06-14-2026 Thyroid stimulating hormone measurement [facility] Start: 10-30-2025 Screening for malignant neoplasm of breast [facility] Start: 07-22-2025 Influenza vaccination Influenza Vaccine (#1) [facility] Start: 07-22-2025 [facility] Start: 07-16-2025 End: 07-16-2025 Patient encounter procedure 07/16/2025 10:30 AM EDT Office Visit [facility] [place] [address] [place] [address] [phone] Thierno Reeder, 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 - JIRA ADMINISTRATOR [address] [place] [address] [place] [id number] [facility] [place] Start: 07-04-2025 End: 07-04-2025 Patient encounter procedure 07/04/2025 10:30 AM EDT Office Visit [facility] [place] [address] [place] [phone] Thierno Reeder, 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 - JIRA ADMINISTRATOR [address] [place] [address] [place] [id number] [facility] [place] Start: 06-28-2025 [facility] Start: 06-28-2025 Plain chest X-ray Chest 1 View (Portable) [facility] Start: 06-28-2025 XR Chest Single view [facility] Start: 06-24-2025 End: 07-24-2025 XR Chest 2 Views XR chest 2 views Imaging Routine Dyspnea, unspecified type Expected: 06/24/2025, Expires: 07/24/2025 [facility] Work Phone: Comment on above: Expected: 06/24/2025, Expires: Start: 06-14-2025 Patient discharge [facility] Start: 06-14-2025 Partial thromboplastin time, activated [facility] Start: 06-14-2025 Prothrombin time [facility] Start: 06-14-2025 Notification of physician [facility] Start: 06-14-2025 Patient education [facility] Start: 06-14-2025 Provision of activity privileges [facility] Start: 06-14-2025 Pulse taking [facility] Start: 06-14-2025 Taking patient vital signs [facility] Start: 06-14-2025 Wound care [facility] Start: 06-14-2025 [facility] Start: 06-14-2025 Catheterization of vein [facility] Start: 06-14-2025 Notification of physician [facility] Start: 06-14-2025 Preoperative care [facility] Start: 06-14-2025 [facility] Start: 06-14-2025 Patient discharge [facility] Start: 06-13-2025 Following clinical pathway protocol [facility] Start: 06-13-2025 Assessment of risk of venous thromboembolism [facility] Start: 06-13-2025 Continuous pulse oximetry [facility] Start: 06-13-2025 Elevation of head of bed [facility] Start: 06-13-2025 Incentive spirometry [facility] Start: 06-13-2025 Inhalation therapy procedure [facility] Start: 06-13-2025 Insertion of catheter into peripheral vein [facility] Start: 06-13-2025 Introduction of urinary catheter [facility] Start: 06-13-2025 Measuring intake and output [facility] Start: 06-13-2025 Oxygen therapy [facility] Start: 06-13-2025 Patient referral to dietitian [facility] Start: 06-13-2025 Providing care according to standard [facility] Start: 06-13-2025 Provision of activity privileges [facility] Start: 06-13-2025 Referral to air traffic systems technician [facility] Start: 06-13-2025 Referral to occupational therapist [facility] Start: 06-13-2025 Referral to service [facility] Start: 06-13-2025 Tobacco use cessation education [facility] Start: 06-13-2025 Vital signs measurements [facility] Start: 06-13-2025 End: 06-13-2025 [facility] Start: 06-13-2025 Electrocardiographic procedure [facility] Start: 06-13-2025 Hospital admission, emergency, from emergency room, medical nature [facility] Start: 06-13-2025 Verification routine [facility] Start: 06-13-2025 Admission procedure [facility] Start: 06-13-2025 Partial thromboplastin time, activated [facility] Start: 06-13-2025 Prothrombin time [facility] Start: 06-13-2025 Referral to service [facility] Start: 06-13-2025 [facility] Start: 01-25-2025 Patient referral [facility] Work Phone: Start: 12-21-2023 Electrocardiographic procedure [facility] Start: 12-21-2023 [facility] Start: 12-20-2023 End: 12-20-2023 [facility] Start: 1969 Hepatitis C screening [facility] Start: 1963 Depression Monitoring Depression Monitoring [facility] Start: 1963 Depression Screening Depression Screening [facility] Start: 1963 [facility] Start: 1951 Medicare Annual Wellness (AWV) Medicare Annual Wellness (AWV) [facility] Start: 1950 Screening for malignant neoplasm of colon [facility] Start: 1951 Screening for osteoporosis [facility] Start: 1950 [facility] Alternaria alternata IgE Ab [Units/volume] in Serum [facility] Malian Cockroach I gE Ab [Units/volume] in Serum [facility] Malian house dust mite IgE Ab [Units/volume] in Serum [facility] Aspergillus fumigatus RAST [facility] Bahia grass IgE Ab [Units/volume] in Serum [facility] Bermuda grass IgE Ab [Units/volume] in Serum [facility] Box elder RAST [facility] Cat dander IgE Ab [Units/volume] in Serum [facility] Cladosporium herbaru m IgE Ab [Units/volume] in Serum [facility] Common Ragweed IgE A b [Units/volume] in Serum [facility] Dog epithelium IgE A b [Units/volume] in Serum [facility] End: 06-25-2025 ECG 12 lead ECG 12 lead CV ECG STAT Once for 1 Occurrences starting 06/25/2025 until 06/25/2025 [facility] Comment on above: Once for 1 Occurrences starting 06/25/20 until 06/25/2025 End: 06-24-2025 ECG 12 lead if not done in the ED ECG 12 lead if not done in the ED CV ECG Routine Once for 1 Occurrences starting 06/24/2025 until 06/24/2025 [facility] Work Phone: Comment on above: Once for 1 Occurrences starting 06/24/20 until 06/24/2025 Erythrocyte mean cor puscular volume determination [facility] house dust mite IgE Ab [Units/volume] in Serum [facility] Hazelnut Pollen IgE Ab [Units/volume] in Serum [facility] Hematocrit [Volume F raction] of Blood [facility] Hemoglobin [Mass/vol ume] in Blood [facility] INR in Blood by Coag ulation assay [facility] INR in Blood by Coag ulation assay [facility] Raphael grass IgE Ab [Units/volume] in Serum [facility] Kentucky blue grass IgE Ab [Units/volume] in Serum [facility] Leukocytes [#/volume ] in Blood [facility] Mean corpuscular hem oglobin concentration determination [facility] Mean corpuscular hem oglobin determination [facility] Mountain Juniper IgE Ab [Units/volume] in Serum [facility] Mucor racemosus IgE Ab [Units/volume] in Serum [facility] Mugwort IgE Ab [Units/volume] in Serum [facility] Ellsworth RAST [facility] Nettle IgE Ab [Units /volume] in Serum [facility] Neutrophil count [facility] Neutrophil percent differential count [facility] Patient Education [facility] Work Phone: Patient referral [facility] Work Phone: Penicillium notatum IgE Ab [Units/volume] in Serum [facility] Plantain (Saudi Arabian) RAST [facility] Platelets [#/volume] in Blood [facility] Red blood cell count [facility] Red cell distributio n width determination [facility] Rough Pigweed IgE Ab [Units/volume] in Serum [facility] Sheep [place] IgE Ab [Units/volume] in Serum [facility] Stemphylium botryosu m IgE Ab [Units/volume] in Serum [facility] Sweet gum [facility] Tree pollen RAST [facility] Troponin T.cardiac [Mass/volume] in Serum or Plasma by High sensitivity method [facility] Troponin T.cardiac [Mass/volume] in Serum or Plasma by High sensitivity method [facility] End: 06-18-2025 Heart Transesophageal [facility] Work Phone: Heart Transesophageal [facility] White [place] IgE Ab [Units/volume] in Serum [facility] White [place] IgE Ab [Units/volume] in Serum [facility] Assonet IgE Ab [Units/volume] in Serum [facility] Immunizations Immunization Date Immunization Notes Care Provider Alan babcock 07-27-2024 influenza virus vacc ine, unspecified formulation Naresh Lim MD Work Phone: [facility] Payers Date Payer Category Payer Medicare supplementa l policy (as second payer) [id number] 2025 Private Health Insurance [id number] 2024 Self-pay [id number] 2016 Medicare [id number] 2016 Unknown [id number] 2016 Medicare [id number] 1950 Unknown [id number] 1950 Unknown [id number] 1951 Unknown [id number] 1951 Unknown [id number] [id number] 1951 Unknown [id number] [id number] 1951 Unknown [id number] [id number] 1951 Unknown [id number] [id number] Unknown [id number] [id number] Unknown [id number] [id number] Unknown [id number] [id number] Unknown [id number] [id number] Unknown [id number] [id number] Unknown [id number] [id number] Unknown [id number] [id number] Unknown [id number] [id number] Unknown [id number] [id number] Unknown [id number] Social History Date Type Detail Facility Start: 12-09-2021 End: 06-14-2025 Tobacco smoking status NHIS Unknown if ever smoked [facility] Start: 1950 Sex Assigned At Female [facility] Start: 02-25-2025 End: 06-14-2025 Sex Female (finding) [facility] Start: 06-13-2025 End: 06-25-2025 Tobacco smoking status NHIS Never smoked tobacco (finding) [facility] Start: 06-14-2025 End: 06-24-2025 History of Social function [facility] Start: 06-14-2025 End: 06-24-2025 Humiliation, Afraid, Rape, and Kick questionnaire [HARK] [facility] Within the last year , have you been afraid of your partner or ex-partner? No [facility] How often to you hav e a drink containing alcohol? 2-4 times a month [facility] How many standard dr inks containing alcohol do you have on a typical day? 1 or 2 [facility] How often do you hav e 6 or more drinks on 1 occasion? Never [facility] In the past 12 month s, how many times have you moved where you were living? 0 [facility] Start: 1950 Sex assigned at Not on file [facility] Start: 06-25-2025 Tobacco use and exposure Smoke less tobacco non-user [facility] (I/We) worried wheth er (my/our) food would run out before (I/we) got money to buy more. Never true [facility] Start: 06-25-2025 Tobacco Comment 06/25/25 Denies ever using tobacco/nicotine/vape [facility] Sexual Orientation Kristin Michael Foster [place] Goals Date Patient Goal Desired Activity /State Personal health goal Functional Status Date Assessment Result Facility 06-24-2025 Total score [AUDIT-C] 0 06/24/20 25 9:38 AM Carol Smith RN [facility] 06-14-2025 Functional status Bedrest [facility] Work Phone: [facility] Mental Status Date Assessment Result Facility 06-28-2025 Cognitive function Level Of Cons ciousness Awake;Alert;Appropriate;Follow s Commands [facility] Work Phone: 06-14-2025 Cognitive function Voice/Name [facility] Work Phone: 06-13-2025 Cognitive function Voice/Name [facility] Work Phone: 12-20-2023 Cognitive function Voice/Name [facility] Work Phone: 09-05-2022 Cognitive function Level Of Cons ciousness Awake;Alert;Appropriate;Follow s Commands [facility] Work Phone: 12-09-2021 Cognitive function Level Of Cons ciousness Awake;Alert;Appropriate [facility] Work Phone: Clinical Notes 06-30-2023 to 07-11-2025 Telephone Encounter - Emeli Con - 07/02/2025 2:22 PM EDTTelephone Encounter - Emeli Andujar - 07/02/2025 2:22 PM EDTCjuan manuel Carroll RN - 07/02/2025 10:10 AM EDT Note Date & Type Note Facility 07-11-2025 Note [place], [place] DISCHARGE SUMMARY NAME: RICHIE ARMAS UNIT #: [id number] ROOM: [facility] DOCTOR: SHILA MAYNARD MD BIRTHDATE: [birth year] DOS: 07/11/2025 CHIEF COMPLAINT: I think I am figuring things out. HISTORY OF PRESENT ILLNESS: This is a 75-year-old white female who was sent from [facility] due to altered mental status. The patient presented there increasingly depressed as well as psychotic and paranoid. The patient was very delusional, believing that her and her sons were going to be poisoning her and they were after her money. They were also giving her SARS. The patient said that she had HIV and that HIV killed both of her sons. She was very delusional and could not be directed. The patient did have a previous suicide attempt at the age of 9 by ingesting Vaseline. Given the severity of her mental status changes, depression and psychosis, an inpatient stabilization was warranted. SUMMARY OF THE HOSPITAL COURSE: The patient was admitted to the unit where she was started on Cymbalta 30 mg at bedtime as an antidepressant, Abilify 5 mg at bedtime was initially started, not only to augment the effectiveness of the antidepressant, but also to act as an antipsychotic. During the course of her time, the Cymbalta was increased to 60 mg b.i.d., the Abilify to 10 mg at bedtime. Eventually, lorazepam 1 mg at bedtime was added for persistent insomnia. With this combination of medications, her depression completely cleared as did her psychosis. She slept well, she ate well and she voiced positive plans for the future. She reported no side effects from the medications themselves. MENTAL STATUS: At discharge, she is alert and oriented to person, place and time. Mood is euthymic. Affect is appropriate. There is no jamin, hypomania or gross psychosis noted. Memory is intact. FINAL DIAGNOSIS UPON DISCHARGE: Major depression, recurrent, severe with psychotic features. PLAN: All of her prescriptions have been printed, signed and will be sent with her. At the time of discharge, she was both medically and psychiatrically stable. SHILA MAYNARD MD WP/ARV [place], [place] DISCHARGE SUMMARY NAME: RICHIE ARMAS UNIT #: [id number] ROOM: 312 DOCTOR: SHILA MAYNARD MD BIRTHDATE: [birth year] TID: [id number] CM:DISCHARG 1015 SHILA MAYNARD MD 07/11/25 1116 interface [facility] 07-02-2025 Telephone encounter Note Name of Caller: Maryjane [facility] - rehabilitation worker Contact Reason for Appointment: Caller states patient is admitted to [facility] in the Behavioral Health Unit for paranoia, delusions and agitation. Admitted 8.11.25 - no discharge date. Office Name: Lilli [facility] 07-02-2025 Miscellaneous Notes Name of Caller: Maryjane [facility] - rehabilitation worker Contact Reason for Appointment: Caller states patient is admitted to [facility] in the Behavioral Health Unit for paranoia, delusions and agitation. Admitted 07.01.25 - no discharge date. Office Name: Lilli documented in this encounter [facility] 07-02-2025 History of Presen t illness Narrative Images from the original note were not included. EMR reviewed. Patient enrolled in [facility]iac 90-day BPCI Program post-hospital discharge 06/22/25 Dx: NSTEMI, CABGx3 -06/18 Patient was readmitted 06/24 to 06/27 for - Toxic and metabolic encephalopathy - likely multifactorial due to polypharmacy, hospital delirium/sundowning, possible underlying undiagnosed dementia Acute L cortical CVA Elevated troponin, flat trend, in the setting of recent CABG Lactic acidosis DM2 with hyperglycemia Anxiety Cognitive decline 7-day post hospital discharge outreach made LVM introducing self and role left contact number to return call. SW consult for SDOH assessment and any additional resources. Referral to [facility] placed in hospital per notes they contacted son and he will reach out when patient is ready for assessment. CM to follow 90 days post hospital discharge. ED to Hosp-Admission Discharged 06/24/2025 [facility] Trauma Neuro Progressive Care Unit PCU 3W Altered mental status, unspecified altered mental status type +3 more Dx Altered Mental Status Reason for Visit Care Coordination Helen Hoskins (Bingo Checker) Social Work The contact, Shruthi Wallace, from [facility] emailed social security specialist and said son Salvador stated he will contact agency when ready to have assessment from the referral social security specialist had sent to . Patient was discharged. Discharge Summary Fiona France DO (Physician) Internal Medicine Hospitalist Discharge Summary Richie Armas : 1950 Admit date: 06/24/2025 Discharge date: 06/27/2025 Admitting Physician: Marry Berger MD Primary Care Physician: NARINDER CRUM Visit Status: Inpatient Code Status: Full Code Acute, acute on chronic, unstable/uncontrolled chronic problems/discharge diagnoses: Toxic and metabolic encephalopathy - likely multifactorial due to polypharmacy, hospital delirium/sundowning, possible underlying undiagnosed dementia acute L cortical CVA Elevated troponin, flat trend, in the setting of recent CABG Lactic acidosis DM2 with hyperglycemia Anxiety Cognitive decline Stable chronic problems affecting care, new non-acute discharge diagnoses: [Medical History] [Medical History] Past Medical History Diagnosis Date Anxiety CKD (chronic kidney disease) stage 2, GFR 60-89 ml/min Depression Fibromyalgia GERD (gastroesophageal reflux disease) Heart disease Hyperlipidemia Hypothyroid IBS (irritable bowel syndrome) Raynaud's disease Procedures: NA Hospital Course: Richie is a [...] a few days until he returns to [place]. See discharge diagnoses list above and medication [...] Diet Cardiac type: Low Fat/Low Chol/High Fiber/SYMONE 06/24/25 1848 Activity: as tolerated Recommended Outpatient Tests: Disposition: [...] Your Medications These medications were sent to [facility]/pharmacy #[id number] - [place], [place] [address] [facility] [address] [facility] [address] [address] capsule Lidocaine 4 % patch melatonin 3 MG tablet Recommended Follow-up: Narinder Crum [address] [facility] [address] [facility] [address] Follow up on 07/05/2025 Follow up from hospital stay at 2:[address] [address] Follow up in 1 month(s) Caregiver supports, cognitive evaluation, f/u mood Complexity of Follow up: [] Moderate Complexity: follow up within 7-14 calendar days (94962) [x] Severe Complexity: follow up within 7 calendar days (98670) Follow up Testing, Pending results or Referrals [...] frame. Signed: Fiona France DO Division of Hospitalist Medicine Acute care [facility] 06/27/2025, 3:00 PM Care Coordination Helen Hoskins (Bingo Checker) Social Work rehabilitation worker met with patient's son in the patient room along with patient's . Koki from [facility] had reached out to the son and gave good resources for the family. [facility] followed up with the son as well for resources. rehabilitation worker explained to the patient what resources/referrals I had done and told her we wanted to ensure her and her are safe and her son could have some peace of mind. Family denied any other needs. Patient is being discharged to home. Care Coordination Dilma Ross RN (Donor Relations Associate) Case Management Discharged to home with family , [facility] wset up , son has resources . Patient has transport to home . Progress Notes Teresita Chris APRN - PRABHJOT (Nurse Practitioner) Geriatrics Expand All [facility] Geriatric Medicine Inpatient Consult Service Admission Date: [...] and consider treating for pain --QTc= 459 --[place] PRN Seroquel and Haldol for ONLY if [...] with community resources, noted they are in [place] -consider follow up in [facility] for caregiver support, information added to discharge -Information provided to son at bedside regarding communication strategies, confabulation, nighttime behaviors. -rehabilitation worker following and resources provided for a [...] dispenser --Recommend outpatient follow up at [facility]) for more in depth cognitive evaluation [...] 06/22/25 138 lb 11.2 oz (62.9 kg) [Current Medications] [Current Medications] Current Facility-Administered Medications: acetaminophen (Tylenol) tablet 1,000 mg, 1,000 mg, Oral, TID, Teresita Chris APRN - JIRA ADMINISTRATOR, 1,000 mg at 06/27/25 1312 aspirin chewable tablet 81 mg, 81 mg, Oral, Daily, Marry Berger MD, 81 mg at 06/27/25 0844 bisacodyl (Dulcolax) suppository 10 mg, 10 mg, Rectal, Daily PRN, Marry Berger MD clopidogrel (Plavix) tablet 75 mg, 75 mg, Oral, Daily, Marry Berger MD, 75 mg at 06/27/25 0844 DULoxetine (Cymbalta) DR capsule 20 mg, 20 mg, Oral, Daily, Teresita Chris APRN - JIRA ADMINISTRATOR ezetimibe (Zetia) tablet 10 mg, 10 mg, Oral, Nightly, Marry Berger MD, 10 mg at 06/26/252109 haloperidol lactate (Haldol) injection 0.5 mg, 0.5 mg, IntraMUSCular, q6h PRN, HOLLI Isaac CNP labetalol (Normodyne,Trandate) injection 10 mg, 10 mg, IntraVENous, q10 min PRN, Marry Begrer MD, 10 mg at 06/26/25 0300 labetalol (Normodyne,Trandate) injection 10 mg, 10 mg, IntraVENous, Once, Hernesto Perez NP levothyroxine (Synthroid, Levoxyl) tablet 50 mcg, 50 mcg, Oral, qAM AC, Marry Berger MD, 50 mcg at 06/27/25 0603 Lidocaine 4 % patch 1 patch, 1 patch, TransDERmal, Daily, Fiona France DO, 1 patch at 06/27/25 0843 melatonin tablet 3 mg, 3 mg, Oral, Nightly, Hernesto Perez NP, 3 mg at 06/26/252109 metoprolol succinate XL (Toprol-XL) 24 hr tablet 50 mg, 50 mg, Oral, Daily, Fiona France DO, 50 mg at 06/27/25 0844 naloxone (Narcan) injection 0.4 mg, 0.4 mg, IntraVENous, q5 min PRN, Marry Berger MD NIFEdipine XL (Procardia XL) 24 hr tablet 30 mg, 30 mg, Oral, Daily, Fiona France DO, 30 mg at 06/27/25 1122 ondansetron ODT (Zofran-ODT) disintegrating tablet 4 mg, 4 mg, Oral, q8h PRN OR ondansetron (Zofran) injection 4 mg, 4 mg, IntraVENous, q6h PRN, Marry Berger MD oxyCODONE (Roxicodone) immediate release tablet 2.5 mg, 2.5 mg, Oral, q6h PRN OR oxyCODONE (Roxicodone) immediate release tablet 5 mg, 5 mg, Oral, q6h PRN, HOLLI Isaac CNP polyethylene glycol (PEG) 3350 (Miralax) packet 17 g, 17 g, Oral, Daily PRN, Marry Berger MD, 17 g at 06/27/25 0843 QUEtiapine (SEROquel) tablet 12.5 mg, 12.5 mg, Oral, BID PRN, HOLLI Isaac CNP rosuvastatin (Crestor) tablet 40 mg, 40 mg, Oral, Daily, Marry Berger MD, 40 mg at 06/26/25 2110 senna-docusate sodium (Senokot-S) 8.6-50 MG tablet 2 tablet, 2 tablet, Oral, Daily PRN, Hernesto Hawa Perez NP, 2 tablet at 06/26/25 1606 sodium chloride 0.9 % infusion, 50 mL/hr, IntraVENous, Continuous, Marry Berger MD, Last Rate: 50 mL/hr at 06/25/25 0407, 50 mL/hr at 06/25/25 0407 Physical Exam Vitals reviewed. Constitutional: No acute [...] ecchymosis to right neck Labs and Imaging: Recent Results No results found for this or any previous visit (from the past 24 hours). Lab Results Component Value Date TSH 5.65 (H) 06/24/2025 No results found for: [id number] No results found for: VITD25 Reviewed: allergies, active problem lists, medications, and labs Care Coordination Helen Hoskins (Bingo Checker) Social Work rehabilitation worker got permission from patient to call her son. Son is concerned about his mother being his father's primary caregiver. rehabilitation worker made referral to Koki with [facility] via email. SW also made a referral to [facility] via their website. Plan is to meet with son later today to discussion about plans and discharge. SW will continue to follow as needed. Progress Notes HOLLI Castillo (Nurse Practitioner) Neurology PROGRESS NOTE: STROKE SERVICE Patient Name:Richie Armas Patient : 1950 Chief complaint: confusion Hospital Summary: 75 y.o. with a PMH of CABG on 06/18, HLD, fibromyalgia, CKD, Raynaud's, anxiety who presented to [facility] on 06/24/25 with a chief complaint of [...] 188, Hrs 78 - 95, afebrile. Medications: [Scheduled Meds] [Scheduled Meds] acetaminophen, 1,000 mg, Oral, TID aspirin, 81 [...] Oral, Daily rosuvastatin, 40 mg, Oral, Daily [PRN Meds] [PRN Meds] PRN medications: bisacodyl, haloperidol lactate, labetalol, naloxone, ondansetron ODT OR ondansetron, oxyCODONE OR oxyCODONE, polyethylene glycol (PEG) 3350, QUEtiapine, senna-docusate sodium Allergies: Flexeril [cyclobenzaprine] and Phenergan [promethazine] Review [...] Notification of these findings was made to MARRY BERGER via [employer] on 06/24/2025 7:02 PM EDT. [...] concern for this would limit use of CLINICAL TRIAL ASSISTANT depressants There is a possibility this DWI [...] Electronically signed by Annette Saldana APRN - CLINICAL TRIAL ASSISTANT/JIRA ADMINISTRATOR on 06/26/2025 at 3:33 PM Progress Notes Fiona France DO (Physician) Internal Medicine Hospitalist Progress Note 06/26/2025 Subjective: Admit Date: 06/24/2025 PCP: NARINDER CRUM Room#: W3-333/W3-333 A BRIEF HOSPITAL COURSE: [...] another episode of sundowning/agitation overnight calling the vacuum conditioner operator multiple times asking for the police [...] -- Net 340 ml Past Medical History: [Medical History] [Medical History] Past Medical History Diagnosis Date Anxiety CKD (chronic kidney disease) stage 2, GFR 60-89 ml/min Depression Fibromyalgia GERD (gastroesophageal reflux disease) Heart disease Hyperlipidemia Hypothyroid IBS (irritable bowel syndrome) Raynaud's disease LABS: CBC: Recent Labs 06/24/25 1013 06/25/25 [...] PSYCH: flight of thought Medications: Scheduled PRN [Scheduled Meds] [Scheduled Meds] acetaminophen, 1,000 mg, Oral, TID aspirin, 81 [...] Oral, Daily rosuvastatin, 40 mg, Oral, Daily [PRN Meds] [PRN Meds] PRN medications: bisacodyl, haloperidol lactate, labetalol, naloxone, ondansetron ODT OR ondansetron, oxyCODONE OR oxyCODONE, polyethylene glycol (PEG) 3350, QUEtiapine, senna-docusate sodium Continuous [Continuous Meds] [Continuous Meds] sodium chloride, 50 mL/hr, Last Rate: 50 mL/hr (06/25/25 0407) Assessment Data: Acute, acute on chronic, unstable/uncontrolled chronic problems/diagnoses: Toxic and metabolic encephalopathy - likely multifactorial due to polypharmacy, hospital delirium/sundowning, likely underlying undiagnosed dementia acute L cortical CVA Elevated troponin, flat trend, in the setting of recent CABG Lactic acidosis DM2 with hyperglycemia Anxiety Cognitive decline Stable chronic problems affecting care, new non-acute diagnoses: [Medical History] [Medical History] Past Medical History Diagnosis Date Anxiety CKD (chronic kidney disease) stage 2, GFR 60-89 ml/min Depression Fibromyalgia GERD (gastroesophageal reflux disease) Heart disease Hyperlipidemia Hypothyroid IBS (irritable bowel syndrome) Raynaud's disease Plan As a result of the above [...] will be home at discharge. Son, from [place], unable to care for her and daughter [...] Extended Emergency Contact Information Primary Emergency Contact: Tomasz Armas Mobile Relation: Spouse Secondary Emergency Contact: All Armas Mobile Relation: Daughter Preferred language: [employer] Employee needed? No Fiona France DO Division of Hospitalist Medicine [facility] Progress Notes Mateo Us OT (Occupational Therapist) Occupational Therapy OCCUPATIONAL THERAPY [facility] Initial Evaluation Name/MRN: Richie Armas ([id number]) Evaluation Date: 06/26/2025 Date of : 1950 Admission Date: 06/24/2025 9:37 AM Age: 75 y.o. [facility]Bed: [facility] Discharge Recommendation: Home with assist [...] Location: L posterior shoulder Past Medical History: [Medical History] [Medical History] Past Medical History Diagnosis Date Anxiety CKD (chronic kidney disease) stage 2, GFR 60-89 ml/min Depression Fibromyalgia GERD (gastroesophageal reflux disease) Heart disease Hyperlipidemia Hypothyroid IBS (irritable bowel syndrome) Raynaud's disease Past Surgical History: [Surgical History] Admission Diagnosis: [Surgical History] Past Surgical History Procedure Laterality Date CORONARY ARTERY BYPASS GRAFT Patient Active Problem List Diagnosis Date Noted Altered mental status, unspecified altered mental status type 06/24/2025 NSTEMI (non-ST elevation myocardial infarction) ([facility]) 06/14/2025 Medical Precautions: No active isolations [...] Responsibilities: Independent Receives Help From: None 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 Goals and/or treatment plan was established in collaboration with patient/family/other representatives. 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. Planned Discharge Disposition: Home Health Services WHALEN active notified and following Barriers/Today we still Wait: Delirium clearing Length of Stay (Days): 2 GMLOS: No GMLOS Documented Progress Notes Teresita Chris, 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 - JIRA ADMINISTRATOR (Nurse Practitioner) Geriatrics Expand All [facility] Geriatric Medicine Inpatient Consult Service Admission Date: [...] and consider treating for pain --QTc= 459 --[place] PRN Seroquel and Haldol for ONLY if [...] with community resources, noted they are in [place] -consider follow up in [facility] for caregiver support, information added to discharge [...] dispenser --Recommend outpatient follow up at [facility] ([facility]) for more in depth cognitive evaluation when [...] and paranoia overnight. Patient calling police and vacuum conditioner operator overnight multiple times. Patient hypertensive overnight. [...] 06/22/25 138 lb 11.2 oz (62.9 kg) [Current Medications] [Current Medications] Current Facility-Administered Medications: acetaminophen (Tylenol) tablet 1,000 mg, 1,000 mg, Oral, TID, HOLLI Isaac CNP, 1,000 mg at 06/26/25 1509 aspirin chewable tablet 81 mg, 81 mg, Oral, Daily, Marry Berger MD, 81 mg at 06/26/25 0850 bisacodyl (Dulcolax) suppository 10 mg, 10 mg, Rectal, Daily PRN, Marry Berger MD clopidogrel (Plavix) tablet 75 mg, 75 mg, Oral, Daily, Marry Berger MD, 75 mg at 06/26/25 0850 DULoxetine (Cymbalta) DR capsule 20 mg, 20 mg, Oral, Daily, HOLLI Isaac CNP ezetimibe (Zetia) tablet 10 mg, 10 mg, Oral, Nightly, Marry Berger MD, 10 mg at 06/25/25 2104 haloperidol lactate (Haldol) injection 0.5 mg, 0.5 mg, IntraMUSCular, q6h PRN, HOLLI Isaac CNP labetalol (Normodyne,Trandate) injection 10 mg, 10 mg, IntraVENous, q10 min PRN, Marry Beregr MD, 10 mg at 06/26/25 0300 labetalol (Normodyne,Trandate) injection 10 mg, 10 mg, IntraVENous, Once, Hernesto Perez NP levothyroxine (Synthroid, Levoxyl) tablet 50 mcg, 50 mcg, Oral, qAM AC, Marry Berger MD, 50 mcg at 06/26/25 0654 [...] mg, 0.4 mg, IntraVENous, q5 min PRN, Marry Berger MD NIFEdipine XL (Procardia XL) 24 hr tablet 30 mg, 30 mg, Oral, Daily, Fiona France DO, 30 mg at 06/26/25 1217 ondansetron ODT (Zofran-ODT) disintegrating tablet 4 mg, 4 mg, Oral, q8h PRN OR ondansetron (Zofran) injection 4 mg, 4 mg, IntraVENous, q6h PRN, Marry Berger MD oxyCODONE (Roxicodone) immediate release tablet 2.5 mg, 2.5 mg, Oral, q6h PRN OR oxyCODONE (Roxicodone) immediate release tablet 5 mg, 5 mg, Oral, q6h PRN, Teresita Chris APRN - PRABHJOT polyethylene glycol (PEG) 3350 (Miralax) packet 17 g, 17 g, Oral, Daily PRN, Marry Berger MD, 17 g at 06/26/25 0850 QUEtiapine (SEROquel) tablet 12.5 mg, 12.5 mg, Oral, BID PRN, HOLLI Isaac CNP rosuvastatin (Crestor) tablet 40 mg, 40 mg, Oral, Daily, Marry Berger MD, 40 mg at 06/25/25 2104 senna-docusate sodium (Senokot-S) 8.6-50 MG tablet 2 tablet, 2 tablet, Oral, Daily PRN, Ross G Chris, RN INTEGRATED sodium chloride 0.9 % infusion, 50 mL/hr, IntraVENous, Continuous, Marry Berger MD, Last Rate: 50 mL/hr at 06/25/25 0407, 50 mL/hr at 06/25/25 0407 Physical Exam Vitals reviewed. Constitutional: No acute [...] ecchymosis to right neck Labs and Imaging: Recent Results No results found for this or any previous visit (from the past 24 hours). Lab Results Component Value Date TSH 5.65 (H) 06/24/2025 No results found for: [id number] No results found for: VITD25 Reviewed: allergies, imaging, active problem lists, medications, and labs Progress Notes Fiona France DO (Physician) Internal Medicine Hospitalist Progress Note 06/25/2025 Subjective: Admit Date: 06/24/2025 PCP: NARINDER CRUM Room#: W3-333/W3-333 A BRIEF HOSPITAL COURSE: [...] -- Net 1169.17 ml Past Medical History: [Medical History] [Medical History] Past Medical History Diagnosis Date Anxiety CKD (chronic kidney disease) stage 2, GFR 60-89 ml/min Depression Fibromyalgia GERD (gastroesophageal reflux disease) Heart disease Hyperlipidemia Hypothyroid IBS (irritable bowel syndrome) Raynaud's disease LABS: CBC: Recent Labs 06/24/25 1013 06/25/25 [...] deficits PSYCH: anxious affect Medications: Scheduled PRN [Scheduled Meds] [Scheduled Meds] aspirin, 81 mg, Oral, Daily clopidogrel, 75 mg, Oral, Daily ezetimibe, 10 mg, Oral, Nightly levothyroxine, 50 mcg, Oral, qAM AC melatonin, 3 mg, Oral, Nightly [Held by provider] metoprolol succinate XL, 50 mg, Oral, Daily [Held by provider] NIFEdipine XL, 30 mg, Oral, Daily rosuvastatin, 40 mg, Oral, Daily [PRN Meds] [PRN Meds] PRN medications: acetaminophen OR acetaminophen, bisacodyl, labetalol, naloxone, ondansetron ODT OR ondansetron, oxyCODONE, polyethylene glycol (PEG) 3350 Continuous [Continuous Meds] [Continuous Meds] sodium chloride, 50 mL/hr, Last Rate: 50 mL/hr (06/25/25 0407) Assessment Data: Acute, acute on chronic, unstable/uncontrolled chronic problems/diagnoses: Toxic and metabolic encephalopathy - likely multifactorial due to polypharmacy, acute L cortical CVA, likely underlying undiagnosed dementia Elevated troponin, flat trend, in the setting of recent CABG Lactic acidosis DM2 with hyperglycemia Anxiety Cognitive decline Stable chronic problems affecting care, new non-acute diagnoses: [Medical History] [Medical History] Past Medical History Diagnosis Date Anxiety CKD (chronic kidney disease) stage 2, GFR 60-89 ml/min Depression Fibromyalgia GERD (gastroesophageal reflux disease) Heart disease Hyperlipidemia Hypothyroid IBS (irritable bowel syndrome) Raynaud's disease Plan As a result of the above [...] Extended Emergency Contact Information Primary Emergency Contact: OcalaDonaly Mobile Relation: Spouse Secondary Emergency Contact: All Armas Mobile Relation: Daughter Preferred language: [employer] Employee needed? No Fiona France DO Division of Hospitalist Medicine Acute care [facility] Progress Notes Randi Sherwood, CHIARA (Respiratory Therapist) Respiratory Care Service Tobacco cessation consult order via Dr. Marry Berger. Patient denies ever using nicotine/tobacco/vape. Cessation counseling not indicated. Consults Dilma Multani DO (Physician) Geriatrics Consult Orders 1. Inpatient consult to Geriatric Medicine--[facility]; confusion, new stroke [[id number]] ordered by Fiona France DO at 06/25/25 1113 Expand All [facility] Geriatric Medicine Inpatient Consult Service [...] with community resources, noted they are in [place] -consider follow up in [facility] for caregiver support, information added to discharge [...] her prior to surgery -he lives in [place] but hasn't had any concerns prior to this hospitalization for confusion -not to baseline, but improved from yesterday. Still easily distracted, somewhat disinhibited Advance Care Planning Code Status: Full Code [Allergies] [Allergies] Allergen Reactions Flexeril [Cyclobenzaprine] Itching Phenergan [Promethazine] Tardive Dyskinesia [Current Medications] [Current Medications] Current Facility-Administered Medications: acetaminophen (Tylenol) tablet 650 mg, 650 mg, Oral, q6h PRN, 650 mg at 06/24/25 2215 OR acetaminophen (Tylenol) suppository 650 mg, 650 mg, Rectal, q6h PRN, Marry Berger MD aspirin chewable tablet 81 mg, 81 mg, Oral, Daily, Marry Berger MD, 81 mg at 06/25/25 0844 bisacodyl (Dulcolax) suppository 10 mg, 10 mg, Rectal, Daily PRN, Marry Berger MD clopidogrel (Plavix) tablet 75 mg, 75 mg, Oral, Daily, Marry Berger MD, 75 mg at 06/25/25 0845 ezetimibe (Zetia) tablet 10 mg, 10 mg, Oral, Nightly, Marry Berger MD, 10 mg at 06/24/25 2129 labetalol (Normodyne,Trandate) injection 10 mg, 10 mg, IntraVENous, q10 min PRN, Marry Berger MD levothyroxine (Synthroid, Levoxyl) tablet 50 mcg, 50 mcg, Oral, qAM AC, Marry Berger MD, 50 mcg at 06/25/25 0544 melatonin tablet 3 mg, 3 mg, Oral, Nightly, Hernesto Perez NP [Held by provider] metoprolol succinate XL (Toprol-XL) 24 hr tablet 50 mg, 50 mg, Oral, Daily, Marry Berger MD, 50 mg at 06/24/25 1445 naloxone (Narcan) injection 0.4 mg, 0.4 mg, IntraVENous, q5 min PRN, Marry Berger MD [Held by provider] NIFEdipine XL (Procardia XL) 24 hr tablet 30 mg, 30 mg, Oral, Daily, Marry Berger MD ondansetron ODT (Zofran-ODT) disintegrating tablet 4 mg, 4 mg, Oral, q8h PRN OR ondansetron (Zofran) injection 4 mg, 4 mg, IntraVENous, q6h PRN, Marry Berger MD oxyCODONE (Roxicodone) immediate release tablet 5 mg, 5 mg, Oral, q6h PRN, Marry Berger MD, 5 mg at 06/25/25 0103 polyethylene glycol (PEG) 3350 (Miralax) packet 17 g, 17 g, Oral, Daily PRN, Marry Berger MD rosuvastatin (Crestor) tablet 40 mg, 40 mg, Oral, Daily, Marry Berger MD, 40 mg at 06/24/252128 sodium chloride 0.9 % infusion, 50 mL/hr, IntraVENous, Continuous, Marry Berger MD, Last Rate: 50 mL/hr at 06/25/25 0407, 50 mL/hr at 06/25/25 0407 [Medical History] [Medical History] Past Medical History Diagnosis Date Anxiety CKD (chronic kidney disease) stage 2, GFR 60-89 ml/min Depression Fibromyalgia GERD (gastroesophageal reflux disease) Heart disease Hyperlipidemia Hypothyroid IBS (irritable bowel syndrome) Raynaud's disease [Surgical History] [Surgical History] Past Surgical History Procedure Laterality Date CORONARY ARTERY BYPASS GRAFT Social History Tobacco Use Smoking status: Unknown Smokeless tobacco: Not on file Substance Use Topics Alcohol use: Not on file Social History Social History Narrative Not on file Family History [Family History] [Family History] No family history on file. No family status information on file. Review [...] lower leg: Edema present. 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 Independent bed mobility Skin: General: Skin [...] week backwards Labs and Imaging: Recent Results Recent Results (from the past 24 hours) [...] 392 ms QTC Interval 459 ms P [place] 49 degrees QRS [place] 97 degrees T Wave [place] 206 degrees NH Interval 149 ms Troponin, High Sensitivity, Serial, [...] are mis-transcribed.) Dilma Multani, 06/25/25 1:21 PM Progress Notes Tiffanie Comer, PT (Physical Therapist) Physical Therapy PHYSICAL THERAPY [facility] Initial Evaluation Name/MRN: Richie Armas ([id number]) Evaluation Date: 06/25/2025 Date of : 1950 Admission Date: 06/24/2025 9:37 AM Age: 75 y.o. Room/Bed: W3-333/W3-333 A Discharge Recommendation: Home with assist PRN [...] denies any current pain. Past Medical History: [Medical History] [Medical History] Past Medical History Diagnosis Date Anxiety CKD (chronic kidney disease) stage 2, GFR 60-89 ml/min Depression Fibromyalgia GERD (gastroesophageal reflux disease) Heart disease Hyperlipidemia Hypothyroid IBS (irritable bowel syndrome) Raynaud's disease Past Surgical History: [Surgical History] Admission Diagnosis: [Surgical History] Past Surgical History Procedure Laterality Date CORONARY ARTERY BYPASS GRAFT Patient Active Problem List Diagnosis Date Noted Altered mental status, unspecified altered mental status type 06/24/2025 NSTEMI (non-ST elevation myocardial infarction) ([facility]) 06/14/2025 Medical Precautions: No active isolations [...] Raw Score (No Stairs) : 20 JH-HLM -HLM Score: Walked 250 ft or more (i.e. [...] of Care supervision is transferred to a [facility] Physical Therapist. Goals and/or treatment plan was established in collaboration with patient/family/other representatives. Consults Annette Saldana APRN - CLINICAL TRIAL ASSISTANT (Nurse Practitioner) Neurology Cosigned by: Juana Valle MD at 06/25/2025 3:55 PM Attestation signed by Juana Valle MD at 06/25/2025 3:55 PM Neuro Critical Care / stroke Attending Patient seen and evaluated personally with my CRISTIANO, She has complaints of being confused shortly after being discharge from [facility] after CABG Patient reported having busy weekend [...] her confusion particularly after the addition of CLINICAL TRIAL ASSISTANT suppressants The possibility that the minor cortical [...] care, Admitting Team, ., . Thank you NARINDER CRUM for the opportunity to be involved in this patient's care. ULT NOTE: STROKE SERVICE Patient Name: Richie Armas Patient : 1950 Date of Admission: 06/24/2025 Chief Complaint: confusion HPI: 75 y.o. with a PMH of CABG on 06/18, HLD, fibromyalgia, CKD, Raynaud's, anxiety who presented to [facility] on 06/24/25 with a chief complaint of [...] she is very worried about her carotids. [Medical History] [Medical History] Past Medical History Diagnosis Date Anxiety CKD (chronic kidney disease) stage 2, GFR 60-89 ml/min Depression Fibromyalgia GERD (gastroesophageal reflux disease) Heart disease Hyperlipidemia Hypothyroid IBS (irritable bowel syndrome) Raynaud's disease [Surgical History] [Surgical History] Past Surgical History Procedure Laterality Date CORONARY ARTERY BYPASS GRAFT [Family History] [Family History] No family history on file. [Allergies] [Allergies] Allergen Reactions Flexeril [Cyclobenzaprine] Itching Phenergan [Promethazine] Tardive Dyskinesia Prior to Admission medications Medication Sig Start [...] QT Interval 392 QTC Interval 459 P Middlebourne 49 QRS [place] 97 T Wave [place] 206 NH Interval 149 Impression Sinus rhythm Consider right [...] 06/24/2025 Patient Name: RICHIE ARMAS : 1950 [facility]#: [id number] Exam Date/Time: 06/24/2025 15:13 Procedure: MR BRAIN [...] Notification of these findings was made to MARRY Herr AB via [employer] Mess[employer] on 06/24/2025 7:02 PM EDT. [...] Electronically signed by Annette Saldana APRN - CLINICAL TRIAL ASSISTANT/JIRA ADMINISTRATOR on 06/25/2025 at 10:25 AM Care Coordination Dilma Ross RN (Donor Relations Associate) Case Management Care Management Progress Note Short Medical why still here: from home- re admission - recent CABG 06/18 , has pcp , script coverage and is home with . [facility] with [facility] . PT/OT neuro recs pending Planned Discharge Disposition: Home Health Services [facility] liaison notified via careport Barriers/Today we still Wait: Environmental Protection Economist recommendations (comment), Diagnostic workup Length of Stay (Days): 1 GMLOS: No GMLOS Documented Progress Notes Marry Berger MD (Physician) Internal Medicine Called and updated son Salvador, who is with patient. Just arriving to three W., updated on MRI results and neurology consult. Progress Notes Tamiko Rodgers CCC-STRIP CATCHER (Speech and Language Pathologist) Speech Therapy Speech-Language Pathology Patient passed the Nursing Swallowing Screening. As per stroke policy, no formal dysphagia evaluation is required. Completed speech orders. Tamiko Rodgers M.A., CCC-STRIP CATCHER H&P Marry Berger MD (Physician) Internal Medicine Expand All Collapse All Attending History and Physical Admit Date: 06/24/2025 PCP: NARINDER CRUM CHIEF COMPLAINT: [AMS and palpitations] Reason [...] issue other than AMS. Past Medical History: [Medical History] [Medical History] Past Medical History No past medical history on file. Past Surgical History: [Surgical History] [Surgical History] Past Surgical History No past surgical history on file. Social History: Social History Socioeconomic History Marital [...] in the Last Year: No Family History: [Family History] [Family History] No family history on file. Medications Prior to Admission: [Current Medications] [Current Medications] No current facility-administered medications for this encounter. [...] mouth daily., Disp: 30 tablet, Rfl: 1 - Medications Reconciliation: Medication were reviewed and verified as accurate with patient. and Medications were reviewed in chart and verified as accurate by review of records with family and/or extended care facility Allergies: [Allergies] [Allergies] Allergen Reactions Flexeril [Cyclobenzaprine] Itching REVIEW OF SYSTEMS: NEG with pert pos [...] chronic problems affecting care, new non-acute diagnoses: [Medical History] [Medical History] Past Medical History No past medical history on file. Plan As a result of the above [...] consult if MRI positive - PT OT STRIP CATCHER - Permissive hypertension with SBP> 140 for [...] Directive: Prior Anticipated Discharge - Date - [06/25-] - Location - tbd - Pending the following - improvement in acute issue leading to hosp Toxic drug monitoring/narrow therapeutic index drug monitoring : # Drug name : [na] # Route administered : N/A # Method of monitoring : N/A Extended Emergency Contact Information Primary Emergency Contact: Tomasz Armas Mobile Relation: Spouse Secondary Emergency Contact: All Armas Mobile Relation: Daughter Preferred language: [place] [employer] Employee needed? No ------- TOTAL time spent on [...] please contact the signing provider for clarification. Marry Berger MD Division of Hospitalist Medicine [facility] ED Provider Notes Gokul Chavarria DO (Physician) Emergency Medicine Emergency Department Encounter [facility] EMERGENCY DEPT Patient: Richie Armas : 1950 Date of Evaluation: 06/24/2025 ED Supervising Physician: Gokul Chavarria DO I personally saw Richie Armas and [...] pain where they accessed her with the [place] catheter. Denies fever/chills, nausea/vomiting, paresthesias, weakness. Patient [...] contact the dictating provider for clarification.) Gokul Chavarria DO [employer] Gokul Chavarria DO 06/25/25 0722 ED Provider Notes Lucho Longoria PA-C (Physician Joint Finisher) Emergency Medicine Cosigned by: Gokul Chavarria DO at 06/25/2025 7:07 AM Emergency Department Encounter [facility] EMERGENCY DEPT Patient: Richie Armas : 1950 Date of Evaluation: 06/24/2025 ED CRISTIANO Provider: Lucho Longoria PA-C EDcare was supervised by Dr. Chavarria who independently examined and evaluated the patient. [...] history: None Outside historians: EMR Past History [Medical History] [Medical History] Past Medical History No past medical history on file. [Surgical History] [Surgical History] Past Surgical History No past surgical history on file. [Social History] [Social History] Socioeconomic History Marital status: Tobacco Use Smoking status: Unknown Vaping Use Vaping status: Never Used [employer] Intimate Partner Violence: Not At Risk (06/14/2025) Humiliation, Afraid, Rape, and Kick questionnaire Fear of Current or Ex-Partner: No Emotionally Abused: No Physically Abused: No Sexually Abused: No Housing Stability: Low Risk (06/14/2025) Housing Stability Vital Sign Unable to Pay for Housing in the Last Year: No Number of Times Moved in the Last Year: 0 Homeless in the Last Year: No Medications/Allergies Previous Medications ACETAMINOPHEN (TYLENOL) 500 MG [...] 1 tablet (40 mg) by mouth daily. [Allergies] [Allergies] Allergen Reactions Flexeril [Cyclobenzaprine] Itching Physical Exam BP (!) 168/74 Pulse 79 [...] 407 ms QTC Interval 462 ms P Middlebourne 42 degrees QRS [place] 85 degrees T Wave [place] 0 degrees NH Interval 160 ms CBC auto differential Collection [...] Department Physician in the absence of a air traffic systems technician. see their note for interpretation of EKG. [...] MEDICATIONS: New Prescriptions No medications on file @[facility]([id number]:LAST:1)@ (Please note: Portions of this note were completed with a voice recognition program. Efforts were made to edit the dictations but occasionally words and phrases are mis-transcribed.) Form [id number] Lucho Longoria PA-C Acute Care [facility] Lucho Longoria PA-C 06/24/25 1631 Other Notes All notes Care Coordination Unknown Case Management Case Management 06/27/2025 Ksenia Obrien, RN Nursing 06/25/2025 Discharge Instr - KERI Megha Craig RN Nursing 06/26/2025 Discharge Instructions Dianelys Shook, JOY Nursing 06/25/2025 Home Care Megha Craig RN Case Management 06/26/2025 Megha Craig RN Case Management 06/25/2025 Nurse Navigation Note Meena Arauz, JOY Nursing 06/26/2025 Nursing Note Khushi Shay, RN Nursing 06/27/2025 Khushi Shay, RN Nursing 06/26/2025 Meena Arauz, JOY Nursing 06/26/2025 Meena Arauz, JOY Nursing 06/25/2025 Progress Notes Dilma Aguilar Nutrition 06/26/2025 Instructions Patient Signature - Printed 06/27/2025 AVS - Discharge to Home - Printed 06/27/2025 Additional Documentation Vitals: BP 165/80 Important (BP Location: Left arm, Patient Position: Lying) Pulse 75 Temp 36.8 C (98.3 F) (Temporal) Resp 18 Ht 1.6 m (5' 3) Wt 60.5 kg (133 lb 4.8 oz) SpO2 94% BMI 23.61 kg/m BSA 1.64 m More Vitals Flowsheets: Encounter Info: Communications View All Conversations on this Encounter Summary of care document sent to Narinder Crum MD Sent 06/27/2025 by Fiona France DO Media From this encounter Orders Placed Labs CBC auto differential Once CBC Morning draw ...(19 more) Imaging CT head wo IV contrast Once CTA head neck angio w and wo IV contrast Once ...(3 more) Other Orders Transthoracic echocardiogram (TTE) complete with contrast, bubble, strain, and 3D PRN Once ECG 12 lead Once ...(13 more) All Encounter Results Medication List at Discharge Acetaminophen 1,000 mg Oral Every 8 hours Aspirin 81 mg Oral Daily Clopidogrel Bisulfate 75 mg Oral Daily DULoxetine HCl 20 mg Oral Daily, Do not crush or chew. Ezetimibe 10 mg Oral Nightly Furosemide 40 mg Oral Daily Levothyroxine Sodium 50 mcg Oral Daily before breakfast Lidocaine 4 % 1 patch TransDERmal Daily Melatonin 3 mg Oral Nightly Metoprolol Succinate 50 mg Oral Daily, Do not crush or chew. NIFEdipine 30 mg Oral Daily, Do not crush, chew, or split. oxyCODONE HCl 5 mg Oral Every 6 hours PRN Potassium Chloride 20 MEQ 20 mEq Oral Daily, Do not crush, chew, or split. Rosuvastatin Calcium 40 mg Oral Daily tiZANidine HCl 4 mg Every 8 hours PRN Medications Administered All Medications Administered (19) Visit Diagnoses Altered mental status, unspecified altered mental status type Lower extremity edema Acute stroke due to ischemia (HCC) Stroke, recent, without late effect Problem List Goal Changes patient is to return home with and [facility] care Patient Goals documented in this encounter [facility] 07-01-2025 Pastoral care Progress note Pastoral Care Note Entered On: 07/01/2025 10:03 EDT Performed On: 07/01/2025 9:59 EDT by Andrew Santiago Pastoral Care Spiritual Care Visit Initiated by : Consult/Referral Type of Pastoral Visit : Initial visit Spiritual Care Reason for Visit : Other: altered mental status and crisis Pastoral Care Referral From : Patient, Nurse Spiritual Assessment : Faithful, Positive Image of God, Spiritually Strong Spiritual Care Emotional Assessment : Confused/Disoriented, Family Dynamics Issues, Relationship Issues Spiritual Care Intervention : Active listening, Compassion/Empathy, Supportive presence, Explore Spiritual Needs, Explore Emotional Needs, Prayer with Patient/Family Spiritual Outcomes : Expresses Gratitude, Expresses Batsheva, Embraces Present Moment Spiritual Plan of Care : No Further Action Pastoral Care Comments : patient identifies as a Evangelical and believes that God is with her; pt believes that she will soon and is making preparations; pt admits that she told the staff 'the rest of it' but doesn't want to keep repeating it; pt states that she has put much 'effort into being a Evangelical but needs to stop trying so hard to get it all right; pt seeks prayer and support; emphasized with this pt that God is in control of our lives and she acknowledges this; Pastoral Care Visit Length : 20 minute(s) Andrew Santiago - 07/01/2025 9:59 EDT Digitally Signed by Andrew Santiago on 07/01/2025 09:59 AM [facility] 06-29-2025 Note Exam Date Time Procedure Performing Provider Status 06/29/25 5:46 PM EKG [ED AOH] - CV SHAREE HERNANDEZ DO; Auth (Verified) ECG Final Report Sinus rhythm Left atrial enlargement Right axis deviation Nonspecific T abnrm, anterolateral leads Prolonged QT interval BORDERLINE ECG Electronic Signature: SHAREE HERNANDEZ DO 06/29/2025 17:52:00 [facility]08-07-2025 Hospital course Narrative* Fiona France DO - 06/27/2025 2:46 PM EDT Hospitalist Discharge Summary Richie Armas : 1950 Admit date: 06/24/2025 Discharge date: 06/27/2025 Admitting Physician: Marry Berger MD Primary Care Physician: NARINDER CRUM Visit Status: Inpatient Code Status: Full [...] for discharge home on 06/27 with Rx forlidocaine patch and cymbalta and can continue taking melatonin at night for sleep. Geriatrics to follow up and son to live with her for a few days until he returns to [place]. See discharge diagnoses list above and medication [...] Diet Cardiac type: Low Fat/Low Chol/High Fiber/SYMONE 06/24/25 1848 Activity: as tolerated Recommended Outpatient Tests: Disposition: [...] Your Medications These medications were sent to [facility]/pharmacy #[id number] [address] [address] capsule Lidocaine 4 % patch melatonin 3 MG tablet Recommended Follow-up: Narinder Crum [address] [facility] [address] [facility] [phone] Follow up on 07/05/2025 Follow up from hospital stay at 2:[address] [phone] Follow up in 1 month(s) Caregiver supports, cognitive evaluation, f/u mood Complexity of Follow up: [] Moderate Complexity: follow up within 7-14 calendar days (13977) [x] Severe Complexity: follow up within 7 calendar days (60481) Follow up Testing, Pending results or Referrals [...] frame. Signed: Fiona France DO Division of Hospitalist Medicine Acute care [facility] 06/27/2025, 3:00 PM [1] Past Medical History: Diagnosis Date Anxiety CKD (chronic kidney disease) stage 2, GFR 60-89 ml/min Depression Fibromyalgia GERD (gastroesophageal reflux disease) Heart disease Hyperlipidemia Hypothyroid IBS (irritable bowel syndrome) Raynaud's disease documented in this [facility]08-07-2025 Miscellaneous Notes* Care Coordination - Unknown Case Management - 06/27/2025 2:46 PM EDT Patient Choice Patient Name: RICHIE ARMAS Date of : 1950 All Providers Sent Referral Name: [facility] Phone: [phone] Address: [address] [place] [address] Name: [facility] Phone: [phone] Address: [address] [place] [address] [facility]: [facility] Phone: [phone] Address: [address] [place] [address] Name: [facility] Phone: [phone] Address: [place] [address] Name: [facility] Phone: [phone] Address: [address] [place] [address] Name: [facility] [place] Phone: [phone] Address: [address] [place] [address] Name: [facility] Phone: [phone] Address: [address] [place] [id number] [place] [address] Name: [facility] ([facility] Phone: [phone] Address: [address] [place] [address] Name: [facility] Phone: [phone] Address: [address] [place] [address] Name: [facility] [place] Phone: [phone] Address: [address] [place] [address] Name: [facility] Phone: [phone] Address: [address] [place] [address] [place] [address] Name: [facility] [place] (All Offices) Phone: [phone] Address: [address], [place] [address] Name: [facility] Phone: [phone] Address: [address] [facility] [address] [place] [address] Name: [facility] Address: [address] [place] [address] Name: [facility] Phone: [phone] Address: [address] [facility] [address] [facility] [address] [place] [address] Name: [facility] Phone: [phone] Address: [address] [place] [address] Name: [facility] Phone: [phone] Address: [address] [place] [address] Name: [facility] Central[facility] Phone: [phone] Address: [address] [place] [address] Name: [facility] [place] [facility]) Address: [address] [facility] [place] [address] * Care Coordination - Helen Hoskins - 06/27/2025 2:11 PM EDT rehabilitation worker met with patient's son in the patient room along with patient's . Koki from [facility] had reached out to the son and gave good resources for the family. [facility] followed up with the son as well for resources. rehabilitation worker explained to the patient what resources/referrals I had done and told her we wanted to ensure her and her are safe and her son couldhave some peace of mind. Family denied any other needs. Patient is being discharged to home. * Care Coordination - Dilma Ross RN - 06/27/2025 1:52 PM EDT Discharged to home with family , HHC wset up , son has resources . Patient has transport to home . * Care Coordination - Helen Hoskins - 06/27/2025 9:17 AM EDT rehabilitation worker got permission from patient to call her son. Son is concerned about his mother being his father's primary caregiver. rehabilitation worker made referral to Koki with [facility] via email. SW also made a referral to [facility] via their website. Plan is to meet with son later today to discussion about plans and discharge. SW will continue to follow as needed. * Home Care - Megha Craig RN - 06/26/2025 3:48 PM EDT Start PACC Note Home Health Referral Educated patient on Home Care and services available. Patient offered choice of available HHC and agreeable to SN/PT services with [facility]. Care [...] is noted as yes - consider a CORPORATE RISK ANALYST evaluation once the patient returns home. START PATIENT REGISTRATION INFORMATION Order Information Order Signing Physician: Fiona France, DO Service Ordered RN ?: Yes Service Ordered PT ?: Yes Service Ordered OT ?: No Service Ordered ST ?: No Service Ordered CORPORATE RISK ANALYST?:No Service Ordered STOPPERER ASSEMBLER?: No Following Physician: Anders Johnston MD Following Physician Overseeing Physician: Anders Johnston MD (Required for Residents only) Agreeable to Follow? Yes Date/Time of Call 06/26/25 3:49 PM, Spoke with: cts protocol/carlos protocol Care Coordination Same Day SOC?: No Primary Care Physician: NARINDER CRUM Primary Care Physician Primary Care Physician Address: [address] [place] [phone] Visit Instructions: N/A Service Discharge Location Type: Home with Home Care Service Facility Name: N/A Service Floor Facility: N/A Service Room No: N/A Demographics Patient Last Name: Pawel Patient First Name: Richie Language/Communication Barrier: no Service Address: [address] [place] [address] Service City: [place] Service ST: [place] Service ZIP: [address] Service (home) Other phone numbers: Telephone Information: Emergency Contact: Extended Emergency Contact Information Primary Emergency Contact: Tomasz Armas Mobile Relation: Spouse Secondary Emergency Contact: PwaelAll Mobile Relation: Daughter Preferred language: [place] [employer] Employee needed? No Admission Information Admit Date: 06/24/2025 Patient status at discharge: Inpatient Admitting Diagnosis: Altered mental status, unspecified altered mental status type [R41.82] Caregiver Information Caregiver First Name: na Caregiver Last Name: christopher Caregiver Relationship to Patient na Caregiver Phone Number: na Caregiver Notes: N/A HITECH Linkedwith-Tech List No END PATIENT REGISTRATION INFORMATION Pt [...] Diabetic: blood glucose testing as directed by PCP/Bullet Lubricant Mixer -For recent heart surgery if patient discharged on Coumadin verify need for INR draw on visit. 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. Planned Discharge Disposition: Home Health Services [facility] active notified and following Barriers/Today we still Wait: Delirium clearing Length of Stay (Days): 2 GMLOS: No GMLOS Documented * Nurse Navigation Note - Meena Arauz RN - 06/26/2025 3:40 AM EDT After being visited by [facility] and nursing pipe fitter supervisor maintenance, pt more calm and agreeable to care. Pt apologetic about earlier behavior. Pt assured that all is well. * Care Coordination - Ksenia Obrien RN - 06/25/2025 3:24 PM EDT PCP follow up scheduled. Follow up with Narinder Crum Tuesday at 2:50 PM Follow up from [facility]. [facility]. [phone] * Home Care - Megha Craig RN - 06/25/2025 9:41 AM EDT Patient is currently active with [facility]. The patient is currently receiving SN/PT services through the agency. Art Historian to continue to follow. * Care Coordination - Dilma Ross RN - 06/25/2025 6:44 AM EDT Care Management Progress Note Short Medical why still here: from home- re admission - recent CABG 06/18 , has pcp , script coverage and is home with . [facility] . PT/OT neuro recs pending Planned Discharge Disposition: Home Health Services [facility] liaison notified via careport Barriers/Today we still Wait: Environmental Protection Economist recommendations (comment), Diagnostic workup Length of Stay (Days): 1 GMLOS: No GMLOS Documented documented in this [facility]08-07-2025 [facility] 06-27-2025 Progress note* Care Coordination - Unknown Case Management - 06/27/2025 2:46 PM EDT Patient Choice Patient Name: RICHIE ARMAS Date of : 1950 All Providers Sent Referral Name: [facility] Phone: [phone] Address: [address] [place] [address] Name: [facility] Phone: [phone] Address: [address] [place] [address] [facility]: [facility] Phone: [phone] Address: [address] [place] [address] Name: [facility] Phone: [phone] Address: [place] [address] Name: [facility] Phone: [phone] Address: [address] [place] [address] Name: [facility] [place] Phone: [phone] Address: [address] [place] [address] Name: [facility] [place] Phone: [phone] Address: [address] [facility] [address] [place] [address] Name: [facility] ([facility]) Phone: [phone] Address: [address] [place] [address] Name: [facility] Phone: [phone] Address: [address] [place] [address] Name: [facility] [place] Phone: [phone] Address: [address] [place] [address] Name: [facility] Phone: [phone] Address: [address] [place] [address] [place] [address] Name: [facility] [place] ([facility] Offices) Phone: [phone] Address: [address], [place] [address] Name: [facility] Phone: [phone] Address: [address] [place] [address] Name: [facility] Address: [address] [place] [address] Name: [facility] [place] Phone: [phone] Address: [address] [place] [address] Name: [facility] Phone: [phone] Address: [address] [place] [address] Name: [facility] Phone: [phone] Address: [address] [place] [address] Name: [facility] Central[facility] Intake Phone: [phone] Address: [address] [place] [address] Name: [facility] [place] [facility]) Address: [address] [facility] [place] [address] [id number] Progress note* Care Coordination - Helen Hoskins - 06/27/2025 2:11 PM EDT rehabilitation worker met with patient's son in the patient room along with patient's . Koki from [facility] had reached out to the son and gave good resources for the family. [facility] followed up with the son as well for resources. rehabilitation worker explained to the patient what resources/referrals I had done and told her we wanted to ensure her and her are safe and her son couldhave some peace of mind. Family denied any other needs. Patient is being discharged to home. [id number] Progress note* Care Coordination - Dilma Ross RN - 06/27/2025 1:52 PM EDT Discharged to home with family , [facility] wset up , son has resources . Patient has transport to home . [facility]hes[facility]03-22-1594 Nurse Note* Khushi Shay RN - 06/27/2025 1:09 PM EDT Pt given discharge instructions with son present and . IV out. Tele off. [id number] Nurse Note* Khushi Shay RN - 06/27/2025 1:09 PM EDT Pt given discharge instructions with son present and . IV out. Tele off. * Khushi Shay RN - 06/26/2025 3:32 PM EDT Co sign Khushi Shay RN * Meena Arauz RN - 06/26/2025 1:23 AM EDT Pt is saying she is calling the police and reporting that we are violating her rights by speaking to her neighbors and friends about her condition. Pt has called vacuum conditioner operator multiple times requesting police security. Nurse called All, her daughter, daughter called the room and spoke to patient. All called back and said even she could not convince pt she is in hospital and we are her caregivers. Daughter wants us to remove pts phone. Pt is very paranoid. Message sent to physician regarding above. * Meena Arauz RN - 06/25/2025 11:58 PM EDT Pt blood pressure running 170+ systolic, [facility] notified. New order for one time dose [...] anyone. Pt demanding to speak to a pipe fitter supervisor maintenance. Piping Drafter called. [facility] notifiedof pt's change in mental status. documented in this [facility]08-07-2025 History of Present illness Narrative* Teresita Chris APRN - PRABHJOT - 06/27/2025 9:21 AM EDT [facility] Geriatric Medicine Inpatient Consult Service Admission Date: [...] and consider treating for pain --QTc= 459 --[place] PRN Seroquel and Haldol for ONLY if [...] with community resources, noted they are in [place] -consider follow up in [facility] for caregiver support, information added to discharge -Information provided to son at bedside regarding communication strategies, confabulation, nighttime behaviors. -rehabilitation worker following and resources provided for [facility] and [facility] referral made Cognitive deficits --No baseline cognitive concerns, manages care of prior to surgery --TSH elevated but FT4 WNL, recommend rechecking as outpatient, B12 pending --Head imaging - MRI brain on 06/24/25 showing Two tiny acute cortical infarcts posterior aspect LEFTsylvian fissure. Extensive chronic ischemic changes. --Recommend increased supervision of medication management and administration. Consider automatic pill dispenser --Recommend outpatient follow up at [facility] formore in depth cognitive evaluation when in usual [...] home 06/22/25. Evaluated by neurology with mentation changefelt to be likely result from taking both [...] with primary service with plan to discharge hometoday. Patient awake and alert in bed. Reports [...] 5.65 (H) 06/24/2025 No results found for: VQIGHEYE51 No results found for: VITD25 Reviewed: allergies, active problem lists, medications, and labs [1] Current Facility-Administered Medications: acetaminophen (Tylenol) tablet 1,000 mg, 1,000 mg, Oral, TID, HOLLI Isaac CNP, 1,000mg at 06/27/25 1312 aspirin chewable tablet 81 mg, 81 mg, Oral, Daily, Marry Berger MD, 81 mg at 06/27/25 0844 bisacodyl (Dulcolax) suppository 10 mg, 10 mg, Rectal, Daily PRN, Marry Berger MD clopidogrel (Plavix) tablet 75 mg, 75 mg, Oral, Daily, Marry Berger MD, 75 mg at 06/27/25 0844 DULoxetine (Cymbalta) DR capsule 20 mg, 20 mg, Oral, Daily, Teresita M Banko, 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 - JIRA ADMINISTRATOR ezetimibe (Zetia) tablet 10 mg, 10 mg, Oral, Nightly, Marry Berger MD, 10 mg at 06/26/252109 haloperidol lactate (Haldol) injection 0.5 mg, 0.5 mg, IntraMUSCular, q6h PRN, Teresita Chris, HOLLI - PRABHJOT labetalol (Normodyne,Trandate) injection 10 mg, 10 mg, IntraVENous, q10 min PRN, Marry Berger MD,10 mg at 06/26/25 0300 labetalol (Normodyne,Trandate) injection 10 mg, 10 mg, IntraVENous, Once, Hernesto Perez NP levothyroxine (Synthroid, Levoxyl) tablet 50 mcg, 50 mcg, Oral, qAM AC, Marry Berger MD, 50 mcg at 06/27/25 0603 Lidocaine 4 % patch 1 patch, 1 patch, TransDERmal, Daily, Fiona France DO, 1 patch at 06/27/25 0843 melatonin tablet 3 mg, 3 mg, Oral, Nightly, Hernesto Perez NP, 3 mg at 06/26/252109 metoprolol succinate XL (Toprol-XL) 24 hr tablet 50 mg, 50 mg, Oral, Daily, Fiona France DO, 50 mg at 06/27/25 0844 naloxone (Narcan) injection 0.4 mg, 0.4 mg, IntraVENous, q5 min PRN, Marry Berger MD NIFEdipine XL (Procardia XL) 24 hr tablet 30 mg, 30 mg, Oral, Daily, Fiona France DO, 30 mg at 06/27/25 1122 ondansetron ODT (Zofran-ODT) disintegrating tablet 4 mg, 4 mg, Oral, q8h PRN OR ondansetron (Zofran) injection 4 mg, 4 mg, IntraVENous, q6h PRN, Marry Berger MD oxyCODONE (Roxicodone) immediate release tablet 2.5 mg, 2.5 mg, Oral, q6h PRN OR oxyCODONE (Roxicodone) immediate release tablet 5 mg, 5 mg, Oral, q6h PRN, HOLLI Isaac CNP polyethylene glycol (PEG) 3350 (Miralax) packet 17 g, 17 g, Oral, Daily PRN, Marry Berger MD, 17 g at 06/27/25 0843 QUEtiapine (SEROquel) tablet 12.5 mg, 12.5 mg, Oral, BID PRN, HOLLI Isaac CNP rosuvastatin (Crestor) tablet 40 mg, 40 mg, Oral, Daily, Marry Berger MD, 40 mg at 06/26/25 2110 senna-docusate sodium (Senokot-S) 8.6-50 MG tablet 2 tablet, 2 tablet, Oral, Daily PRN, Ross G Essex, RN INTEGRATED, 2 tablet at 06/26/25 1606 sodium chloride 0.9 % infusion, 50 mL/hr, IntraVENous, Continuous, Marry Berger MD, Last Rate: 50mL/hr at 06/25/25 0407, 50 mL/hr at 06/25/25 0407 * HOLLI Castillo CLINICAL TRIAL ASSISTANT - 06/26/2025 3:33 PM EDT PROGRESS NOTE: STROKE SERVICE Patient Name:Richie Armas Patient : 1950 Chief complaint: confusion Hospital Summary: 75 y.o. with a PMH of CABG on 06/18, HLD, fibromyalgia, CKD, Raynaud's, anxiety who presented to [facility] on 06/24/25 with a chief complaint of confusion. In ED NIH was 1 for sensory deficits. Pt notes that while in the hospital for CABG she laid on right side and noted flashing lights inher visual field and she has been worried on this since. When she went home she overdid it taking care of her demented and visiting with family. She became nervous she was not sleeping enough, so she took oxycodone and tramadol Tuesday night and woke on Tuesday confused, more likely unable tothink clearly and carry her thoughts through to [...] confused when trying to relate events of pastdays Memory: Normal Fund of Knowledge: Normal Language: [...] limbs and axial musculature the following findings applied:Drift: absent Reflexes: after evaluation of 4 limbs, [...] 06/24/2025 [facility] 1950 [id number] Exam Date/Time: 06/24/2025 15:13 Procedure: MR BRAIN WO CONTRAST Ordering Provider: BERGER MARYAMReason For Exam: Mental status change, unknown cause [...] hemorrhage mass effect or midline shift. There arepatchy and confluent areas of T2 bright signal in the periventricular and subcortical white matter,which are nonspecific, but may relate to chronic small vessel ischemic changes. Ventricular system is normal for age. Basal cisterns are not effaced. No pathologic extra-axial fluid collection identified. Major intracranial flow voids are visualized. 1. 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 Extensive chronic ischemic changes. CRITICAL TEST RESULT COMMUNICATION: Notification of these findings was made to MARRY BERGER via [employer] on 06/24/2025 7:02 PM EDT. [...] of cortical DWI changes, possible stroke, likely raven- procedural to CABG Continue dual antiplatelet therapy Recommend normotension Pt remains at risk from stroke given the hypokinesis of the apex and dilation of atria. . Consider outpatient testing for MEG, given concern for this would limit use of CLINICAL TRIAL ASSISTANT depressants There is a possibility this DWI [...] on the EMR, and/or coordinating care. An ad ditional 10 minutes was spent discussing assessment/plan with [...] polyethylene glycol (PEG) 3350, QUEtiapine, senna-docusate sodium * Fiona France, DO - 06/26/2025 2:07 PM EDT Hospitalist Progress Note 06/26/2025 Subjective: Admit Date: 06/24/2025 PCP: NARINDER CRUM Room#: W3-333/W3-333 A BRIEF HOSPITAL COURSE: [...] notes, had another episode of sundowning/agitation overnight callingthe vacuum conditioner operator multiple times asking for the police [...] Pending the following - mentation, improvement in sundowning, geriatrics recs Dispo: Plan will be home at discharge. Son, from [place], unable to care for her and daughter is apparently undergoing medical treatment and also unable to be there 24 hours. with Alzheimers. I dobelieve this is mostly hospital delirium and will likely subside/improve upon returning home, but pt will still need close monitoring for a few days and eventual full cognitive evaluation at a later date Total time spent (which include face to face and non face to face encounters) : 50 minutes Extended Emergency Contact Information Primary Emergency Contact: Tomasz Armas Mobile Relation: Spouse Secondary Emergency Contact: PawelAll Mobile Relation: Daughter Preferred language: [employer] Employee needed? No Fiona France DO Division of Hospitalist Medicine [facility] [1] Past Medical History: Diagnosis Date Anxiety [...] Hypothyroid IBS (irritable bowel syndrome) Raynaud's disease * Mateo Us, OT - 06/26/2025 11:06 AM EDT Images from the original note were not included. OCCUPATIONAL THERAPY [facility] Initial Evaluation Name/MRN: Richie Armas ([id number]) Evaluation Date: 06/26/2025 Date of : 1950 Admission Date: 06/24/2025 9:37 AM Age: 75 y.o. [facility]: [facility] Discharge Recommendation: Home with assist [...] type 06/24/2025 NSTEMI (non-ST elevation myocardial infarction) ([facility]) 06/14/2025 Medical Precautions: No active isolations [...] upon return to home. 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 Goals and/or treatment plan was established in collaboration with patient/family/other representatives. [1] Past Medical History: Diagnosis Date Anxiety CKD (chronic kidney disease) stage 2, GFR 60-89 ml/min Depression Fibromyalgia GERD (gastroesophageal reflux disease) Heart disease Hyperlipidemia Hypothyroid IBS (irritable bowel syndrome) Raynaud's disease [2] Past Surgical History: Procedure Laterality Date CORONARY ARTERY BYPASS GRAFT * Dilma Aguilar - 06/26/2025 9:31 AM EDT Nutrition rescreen completed. Chart reviewed. Patient to be monitored and followed by the diet nuclear test technician. Dilma Aguilar DT * Teresita Chris APRN - JIRA ADMINISTRATOR - 06/26/2025 9:00 AM EDT [facility] Geriatric Medicine Inpatient Consult Service Admission Date: [...] and consider treating for pain --QTc= 459 --[place] PRN Seroquel and Haldol for ONLY if [...] with community resources, noted they are in [place] -consider follow up in [facility] for caregiver support, information added to discharge -Information provided to son at bedside regarding communication strategies, confabulation, nighttime behaviors. Cognitive deficits --No baseline cognitive concerns, manages care of prior to surgery --TSH elevated but FT4 WNL, recommend rechecking as outpatient, B12 pending --Head imaging - MRI brain on 06/24/25 showing Two tiny acute cortical infarcts posterior aspect LEFTsylvian fissure. Extensive chronic ischemic changes. --Recommend increased supervision of medication management and administration. Consider automatic pill dispenser --Recommend outpatient follow [facility] at [facility] formore in depth cognitive evaluation when in usual [...] home 06/22/25. Evaluated by neurology with mentation changefelt to be likely result from taking both [...] and paranoia overnight. Patient calling police and vacuum conditioner operator overnight multiple times. Patient hypertensive overnight. ECHO with EF 51%. Refused labetalol and melatonin overnight. Received PRN Tylenol once this morning and PRN labetalol 10 mg at 0 3:00. Received PRN oxycodone 5 mg twice on [...] 5.65 (H) 06/24/2025 No results found for: EJWWJDFT21 No results found for: VITD25 Reviewed: allergies, imaging, active problem lists, medications, and labs [1] Current Facility-Administered Medications: acetaminophen (Tylenol) tablet 1,000 mg, 1,000 mg, Oral, TID, HOLLI Isaac CNP, 1,000mg at 06/26/25 1509 aspirin chewable tablet 81 mg, 81 mg, Oral, Daily, Marry Berger MD, 81 mg at 06/26/25 0850 bisacodyl (Dulcolax) suppository 10 mg, 10 mg, Rectal, Daily PRN, Marry Berger MD clopidogrel (Plavix) tablet 75 mg, 75 mg, Oral, Daily, Marry Berger MD, 75 mg at 06/26/25 0850 DULoxetine (Cymbalta) DR capsule 20 mg, 20 mg, Oral, Daily, HOLLI Isaac CNP ezetimibe (Zetia) tablet 10 mg, 10 mg, Oral, Nightly, Marry Berger MD, 10 mg at 06/25/25 2104 haloperidol lactate (Haldol) injection 0.5 mg, 0.5 mg, IntraMUSCular, q6h PRN, HOLLI Isaac CNP labetalol (Normodyne,Trandate) injection 10 mg, 10 mg, IntraVENous, q10 min PRN, Marry Berger MD,10 mg at 06/26/25 0300 labetalol (Normodyne,Trandate) injection 10 mg, 10 mg, IntraVENous, Once, Hernesto Perez, OLGA levothyroxine (Synthroid, Levoxyl) tablet 50 mcg, 50 mcg, Oral, qAM AC, Marry Berger MD, 50 mcg at 06/26/25 0654 Lidocaine 4 % patch 1 patch, 1 patch, TransDERmal, Daily, Fiona France, DO, 1 patch at 06/26/25 1055 melatonin tablet 3 mg, 3 mg, Oral, Nightly, Hernesto Perez NP metoprolol succinate XL (Toprol-XL) 24 hr tablet 50 mg, 50 mg, Oral, Daily, Fiona France, , 50 mg at 06/26/25 1055 naloxone (Narcan) injection 0.4 mg, 0.4 mg, IntraVENous, q5 min PRN, Marry Berger MD NIFEdipine XL (Procardia XL) 24 hr tablet 30 mg, 30 mg, Oral, Daily, Fiona France, DO, 30 mg at 06/26/25 1217 ondansetron ODT (Zofran-ODT) disintegrating tablet 4 mg, 4 mg, Oral, q8h PRN OR ondansetron (Zofran) injection 4 mg, 4 mg, IntraVENous, q6h PRN, Maryr Berger MD oxyCODONE (Roxicodone) immediate release tablet 2.5 mg, 2.5 mg, Oral, q6h PRN OR oxyCODONE (Roxicodone) immediate release tablet 5 mg, 5 mg, Oral, q6h PRN, HOLLI Isaac CNP polyethylene glycol (PEG) 3350 (Miralax) packet 17 g, 17 g, Oral, Daily PRN, Marry Berger MD, 17 g at 06/26/25 0850 QUEtiapine (SEROquel) tablet 12.5 mg, 12.5 mg, Oral, BID PRN, HOLLI Isaac CNP rosuvastatin (Crestor) tablet 40 mg, 40 mg, Oral, Daily, Marry Berger MD, 40 mg at 06/25/25 2104 senna-docusate sodium (Senokot-S) 8.6-50 MG tablet 2 tablet, 2 tablet, Oral, Daily PRN, Hernesto Perez NP sodium chloride 0.9 % infusion, 50 mL/hr, IntraVENous, Continuous, Marry Berger MD, Last Rate: 50mL/hr at 06/25/257, 50 mL/hr at 06/25/25406 * Fiona France, DO - 06/25/2025 2:50 PM EDT Hospitalist Progress Note 06/25/2025 Subjective: Admit Date: 06/24/2025 PCP: NARINDER CRUM Room#: W3-333/W3-333 A BRIEF HOSPITAL COURSE: [...] home, but pt continues to be very confusedand her with advanced dementia and would likely not be safe to discharge home at this time Interval History: 06/25: Pt seen and examined. No complaints but very worried about her at home. Per son, Salvador, pt is still very confused and this is not her baseline. States she is normally very functional andoriented and able to care for her who [...] Extended Emergency Contact Information Primary Emergency Contact: Tomasz Armas Mobile Relation: Spouse Secondary Emergency Contact: All Armas Mobile Relation: Daughter Preferred language: [employer] Employee needed? No Fiona France DO Division of Hospitalist Medicine [facility] [1] Past Medical History: Diagnosis Date Anxiety [...] Hypothyroid IBS (irritable bowel syndrome) Raynaud's disease * Randi Sherwood, REINFORCING STEEL MACHINE OPERATOR - 06/25/2025 2:05 PM EDT Tobacco cessation consult order via Dr. Marry Berger. Patient denies ever using nicotine/tobacco/vape. Cessation counseling not indicated. * Tiffanie Comer, PT - 06/25/2025 11:32 AM EDT Images from the original note were not included. PHYSICAL THERAPY [facility] Initial Evaluation Name/MRN: Richie Armas ([id number]) Evaluation Date: 06/25/2025 Date of : 1950 Admission Date: 06/24/2025 9:37 AM Age: 75 y.o. Room[facility]Bed: [facility] Discharge Recommendation: Home with assist PRN Equipment Needed: No Assessment IMPRESSION: Pt s/p CABG x 3 06/18/25, home x 48hrs before being re-admitted with stroke-like symptoms. Pt indep with bed mob (HOB elevated), transfers & modif indep with use of FWW. Pt remains compliant with sternal precautions, issued new P&C booklet for continued compliance with exercises.Rec home with assist at disch. Admitting Diagnosis: [...] place, call light within reach, gait belt, noalarms engaged upon entry, patient left sitting EOB, and neuro team present in room at end of session Restraints: N/A Education Education Given To: patient Education Provided: PT Role and Home Exercise Program Education Method: Verbal Barriers to Learning: Education Outcome: Goals Patient Stated Goal: to go home Therapy Time Individual Co-Treatment Co-Evaluation Time In 09 Time Out 0958 Minutes 27 Timed Code Treatment Minutes: 8 Minutes Tiffanie Comer PT Patient's Physical Therapy Plan of Care supervision is transferred to a [facility] Physical Therapist. Goals and/or treatment plan was established in collaboration with patient/family/other representatives. [1] Past Medical History: Diagnosis Date Anxiety CKD (chronic kidney disease) stage 2, GFR 60-89 ml/min Depression Fibromyalgia GERD (gastroesophageal reflux disease) Heart disease Hyperlipidemia Hypothyroid IBS (irritable bowel syndrome) Raynaud's disease [2] Past Surgical History: Procedure Laterality Date CORONARY ARTERY BYPASS GRAFT * Marry Berger MD - 06/24/2025 7:32 PM EDT Called and updated son Salvador, who is with patient. Just arriving to three W., updated on MRI results and neurology consult. * RHONDA HarringtonSTRIP CATCHER - 06/24/2025 3:13 PM EDT Speech-Language Pathology Patient passed the Nursing Swallowing Screening. As per stroke policy, no formal dysphagia evaluation is required. Completed speech orders. Tamiko GTZ documented in this [facility]08-07-2025 Progress note* Care Coordination - Helen Hoskins - 06/27/2025 9:17 AM EDT rehabilitation worker got permission from patient to call her son. Son is concerned about his mother being his father's primary caregiver. rehabilitation worker made referral to Koki with [facility] via email. SW also made a referral to [facility] via their website. Plan is to meet with son later today to discussion about plans and discharge. SW will continue to follow as needed. [facility]td[facility] Patient's home Note* Home Care - Megha Craig RN - 06/26/2025 3:48 PM EDT Start PACC Note Home Health Referral Educated patient on Home Care and services available. Patient offered choice of available HHC and agreeable to SN/PT services with [facility]. Care Types: [...] is noted as yes - consider a CORPORATE RISK ANALYST evaluation once the patient returns home. START PATIENT REGISTRATION INFORMATION Order Information Order Signing Physician: Fiona France, DO Service Ordered RN ?: Yes Service Ordered PT ?: Yes Service Ordered OT ?: No Service Ordered ST ?: No Service Ordered CORPORATE RISK ANALYST?:No Service Ordered STOPPERER ASSEMBLER?: No Following Physician: Anders Johnston MD Following Physician Overseeing Physician: Anders Johnston MD (Required for Residents only) Agreeable to Follow? Yes Date/Time of Call 06/26/25 3:49 PM, Spoke with: cts protocol/carlos protocol Care Coordination Same Day SOC?: No Primary Care Physician: NARINDER CRUM Primary Care Physician Primary Care Physician Address: [address] [place] [id number] Visit Instructions: N/A Service Discharge Location Type: Home with Home Care Service Facility Name: N/A Service Floor Facility: N/A Service Room No: N/A Demographics Patient Last Name: Pawel Patient First Name: Richie Language/Communication Barrier: no Service Address: [address] [place] [address] Service City: [place] Service ST: [place] Service ZIP: [address] Service (home) Other phone numbers: Telephone Information: Emergency Contact: Extended Emergency Contact Information Primary Emergency Contact: Tomasz Armas Mobile Relation: Spouse Secondary Emergency Contact: All Armas Mobile Relation: Daughter Preferred language: [employer] Employee needed? No Admission Information Admit Date: 06/24/2025 Patient status at discharge: Inpatient Admitting Diagnosis: Altered mental status, unspecified altered mental status type [R41.82] Caregiver Information Caregiver First Name: na Caregiver Last Name: na Caregiver Relationship to Patient na Caregiver Phone Number: na Caregiver Notes: N/A [place]-Ascenz List No END PATIENT REGISTRATION INFORMATION Pt [...] Diabetic: blood glucose testing as directed by PCP/Bullet Lubricant Mixer -For recent heart surgery if patient discharged on Coumadin verify need for INR draw on visit. Activity/Weight Bearing: -Up with assistance: up in chair for all meals, ambulate 3-4 times a day -Stretching exercises per PT discharge instructions Discharge Date: pending Referral Source-PACC: (Hospital/Unit): [facility] / W3-/W3 A End PACC Note [facility] Nurse Note* Khushi Shay RN - 06/26/2025 3:32 PM EDT Co sign Khushi Shay RN [address] [id number] Progress note* Care Coordination - Dilma Ross RN - 06/26/2025 9:02 AM EDT Care Management Progress Note Short Medical why still here: need delirium to clear , from home with - she is caregiver for him- ( has dementia ) previous was doing own pill box- geriatrics following- readmission was here Admission 06/14-06/22/25 for CAD , OR 06/18 sent home [facility]. Planned Discharge Disposition: Home Health Services WHALEN active notified and following Barriers/Today we still Wait: Delirium clearing Length of Stay (Days): 2 GMLOS: No GMLOS Documented [facility]Ibsasz56-12-4624 Nurse Note* Nurse Navigation Note - Meena Arauz RN - 06/26/2025 3:40 AM EDT After being visited by [facility] and nursing pipe fitter supervisor maintenance, pt more calm and agreeable to care. Pt apologetic about earlier behavior. Pt assured that all is well. [id number] Nurse Note* Meena Arauz RN - 06/26/2025 1:23 AM EDT Pt is saying she is calling the police and reporting that we are violating her rights by speaking to her neighbors and friends about her condition. Pt has called vacuum conditioner operator multiple times requesting police security. Nurse called All, her daughter, daughter called the room and spoke to patient. All called back and said even she could not convince pt she is in hospital and we are her caregivers. Daughter wants us to remove pts phone. Pt is very paranoid. Message sent to physician regarding above. [id number] Nurse Note* Meena Arauz RN - 06/25/2025 11:58 PM EDT Pt blood pressure running 170+ systolic, [facility] notified. New order for one time dose [...] anyone. Pt demanding to speak to a pipe fitter supervisor maintenance. Piping Drafter called. [facility] notifiedof pt's change in mental status. [id number] Progress note* Care Coordination - Ksenia Obrien RN - 06/25/2025 3:24 PM EDT PCP follow up scheduled. Follow up with Narinder Crum Tuesday at 2:50 PM Follow up from [facility]. [phone] [facility] HospitalHoaydo98-28-7245 NoteTobacco cessation consult order via Dr. Marry Berger. Patient denies ever using nicotine/tobacco/vape. Cessation counseling not indicated.[facility]08-05-2025 Consult note* Dilma Multani DO - 06/25/2025 1:21 PM EDT Associated Order(s): IP CONSULT TO GERIATRICS [facility] Geriatric Medicine Inpatient Consult Service Admission Date: [...] transitions, recent surgery, ? Medications ? Sedation/hypoxia, ?Stress/anxiety --Encourage PO intake, time up in chair, [...] with community resources, noted they are in [place] -consider follow up in [facility] for caregiver support, information added to discharge Subjective: HPI 75 y.o. year-old female presented to the hospital from home with mental status change. Per review -recently had CABG x 3 on 06/18/25, was [...] home, did her own pillbox, seemed in goodspirits. Pt reports increased stress on return home due to family situation. She is also the primary caregiver for who has dementia x 7+ years. He is no longer driving. Pt son reports the last year her has had pretty big decline. -pt did have symptoms when she had possible afib episode following surgery. Notes palpitations whenshe lays on her right side -has had [...] her prior to surgery -he lives in [place] but hasn't had any concerns prior to [...] lower leg: Edema present. 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 Independent bed mobility Skin: General: Skin [...] 392 ms QTC Interval 459 ms P Middlebourne 49 degrees QRS Middlebourne 97 degrees T Wave Middlebourne 206 degrees NH Interval 149 ms Troponin, High Sensitivity, Serial, [...] 650 mg, 650 mg, Rectal, q6h PRN, Marry Berger MD aspirin chewable tablet 81 mg, 81 mg, Oral, Daily, Marry Berger MD, 81 mg at 06/25/25 0844 bisacodyl (Dulcolax) suppository 10 mg, 10 mg, Rectal, Daily PRN, Marry Berger MD clopidogrel (Plavix) tablet 75 mg, 75 mg, Oral, Daily, Marry Berger MD, 75 mg at 06/25/25 0845 ezetimibe (Zetia) tablet 10 mg, 10 mg, Oral, Nightly, Marry Berger MD, 10 mg at 06/24/25 2129 labetalol (Normodyne,Trandate) injection 10 mg, 10 mg, IntraVENous, q10 min PRN, Marry Berger MD levothyroxine (Synthroid, Levoxyl) tablet 50 mcg, 50 mcg, Oral, qAM AC, Marry Berger MD, 50 mcg at 06/25/25 0544 melatonin tablet 3 mg, 3 mg, Oral, Nightly, Hernesto Perez NP [Held by provider] metoprolol succinate XL (Toprol-XL) 24 hr tablet 50 mg, 50 mg, Oral, Daily, Marry Berger MD, 50 mg at 06/24/25 1445 naloxone (Narcan) injection 0.4 mg, 0.4 mg, IntraVENous, q5 min PRN, Marry Berger MD [Held by provider] NIFEdipine XL (Procardia XL) 24 hr tablet 30 mg, 30 mg, Oral, Daily, Marry Berger MD ondansetron ODT (Zofran-ODT) disintegrating tablet 4 mg, 4 mg, Oral, q8h PRN OR ondansetron (Zofran) injection 4 mg, 4 mg, IntraVENous, q6h PRN, Marry Berger MD oxyCODONE (Roxicodone) immediate release tablet 5 mg, 5 mg, Oral, q6h PRN, Marry Berger MD, 5 mg at 06/25/25 0103 polyethylene glycol (PEG) 3350 (Miralax) packet 17 g, 17 g, Oral, Daily PRN, Marry Berger MD rosuvastatin (Crestor) tablet 40 mg, 40 mg, Oral, Daily, Marry Berger MD, 40 mg at 06/24/25 2129 sodium chloride 0.9 % infusion, 50 mL/hr, IntraVENous, Continuous, Marry Berger MD, Last Rate: 50mL/hr at 06/25/25 0407, 50 mL/hr at 06/25/25 0407 [3] Past Medical History: Diagnosis Date Anxiety CKD (chronic kidney disease) stage 2, GFR 60-89 ml/min Depression Fibromyalgia GERD (gastroesophageal reflux disease) Heart disease Hyperlipidemia Hypothyroid IBS (irritable bowel syndrome) Raynaud's disease [4] Past Surgical History: Procedure Laterality Date CORONARY ARTERY BYPASS GRAFT [5] No family history on file. SMS [employer] Phone: [phone] Consult note* Dilma Multani DO - 06/25/2025 1:21 PM EDTAssociated Order(s): IP CONSULT [facility]ATR[facility] [...] transitions, recent surgery, ? Medications ? Sedation/hypoxia, ?Stress/anxiety --Encourage PO intake, time up in chair, [...] with community resources, noted they are in [place] -consider follow up in [facility] for caregiver support, information added to discharge Subjective: HPI 75 y.o. year-old female presented to the hospital from home with mental status change. Per review -recently had CABG x 3 on 06/18/25, was [...] home, did her own pillbox, seemed in goodspirits. Pt reports increased stress on return home due to family situation. She is also the primary caregiver for who has dementia x 7+ years. He is no longer driving. Pt son reports the last year her has had pretty big decline. -pt did have symptoms when she had possible afib episode following surgery. Notes palpitations whenshe lays on her right side -has had worsening neck and shoulder pain. Also shanelles had flair on Tuesday despite taking her [...] in a zipper backwards Conversation with caregiver: Salvador jacobson at the bedside -no baseline cogntiive concerns -was doing well, independent, primary caregiver of her prior to surgery -he lives in [place] but hasn't had any concerns prior to [...] lower leg: Edema present. 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 Independent bed mobility Skin: General: Skin [...] 392 ms QTC Interval 459 ms P Middlebourne 49 degrees QRS Middlebourne 97 degrees T Wave Middlebourne 206 degrees NH Interval 149 ms Troponin, High Sensitivity, Serial, Second Test Collection Time: 06/25/25 7:37 AM Result Value Ref Range 2h Troponin HS (Serial 2nd Troponin) 78 (H) <=14 ng/L Transthoracic echocardiogram (TTE) complete with contrast, bubble, strain, and 3D PRN Collection Time: 08/05/25 11:58 AM Result Value Ref Range IVSd [...] 650 mg, 650 mg, Rectal, q6h PRN, Marry Berger MD aspirin chewable tablet 81 mg, 81 mg, Oral, Daily, Marry Berger MD, 81 mg at 06/25/25 0844 bisacodyl (Dulcolax) suppository 10 mg, 10 mg, Rectal, Daily PRN, Marry Berger MD clopidogrel (Plavix) tablet 75 mg, 75 mg, Oral, Daily, Marry Berger MD, 75 mg at 06/25/25 0845 ezetimibe (Zetia) tablet 10 mg, 10 mg, Oral, Nightly, Marry Berger MD, 10 mg at 06/24/252128 labetalol (Normodyne,Trandate) injection 10 mg, 10 mg, IntraVENous, q10 min PRN, Marry Berger MD levothyroxine (Synthroid, Levoxyl) tablet 50 mcg, 50 mcg, Oral, qAM AC, Marry Berger MD, 50 mcg at 06/25/25 0544 melatonin tablet 3 mg, 3 mg, Oral, Nightly, Hernesto Perez NP [Held by provider] metoprolol succinate XL (Toprol-XL) 24 hr tablet 50 mg, 50 mg, Oral, Daily, Marry Berger MD, 50 mg at 06/24/25 1445 naloxone (Narcan) injection 0.4 mg, 0.4 mg, IntraVENous, q5 min PRN, Marry Berger MD [Held by provider] NIFEdipine XL (Procardia XL) 24 hr tablet 30 mg, 30 mg, Oral, Daily, Marry Berger MD ondansetron ODT (Zofran-ODT) disintegrating tablet 4 mg, 4 mg, Oral, q8h PRN OR ondansetron (Zofran) injection 4 mg, 4 mg, IntraVENous, q6h PRN, Marry Berger MD oxyCODONE (Roxicodone) immediate release tablet 5 mg, 5 mg, Oral, q6h PRN, Marry Berger MD, 5 mg at 06/25/25 010 polyethylene glycol (PEG) 3350 (Miralax) packet 17 g, 17 g, Oral, Daily PRN, Marry Berger MD rosuvastatin (Crestor) tablet 40 mg, 40 mg, Oral, Daily, Marry Berger MD, 40 mg at 06/24/252128 sodium chloride 0.9 % infusion, 50 mL/hr, IntraVENous, Continuous, Marry Berger MD, Last Rate: 50mL/hr at 06/25/25 0407, 50 mL/hr at 06/25/25 0407 [3] Past Medical History: Diagnosis Date Anxiety CKD (chronic kidney disease) stage 2, GFR 60-89 ml/min Depression Fibromyalgia GERD (gastroesophageal reflux disease) Heart disease Hyperlipidemia Hypothyroid IBS (irritable bowel syndrome) Raynaud's disease [4] Past Surgical History: Procedure Laterality Date CORONARY ARTERY BYPASS GRAFT [5] No family history on file. * Annette Saldana APRN - CLINICAL TRIAL ASSISTANT - 06/25/2025 10:24 AM EDT CONSULT NOTE: STROKE SERVICE Patient Name: Richie Armas Patient : 1950 Date of Admission: 06/24/2025 Chief Complaint: confusion HPI: 75 y.o. with a PMH of CABG on 06/18, HLD, fibromyalgia, CKD, Raynaud's, anxiety who presented to [facility] on 06/24/25 with a chief complaint of [...] she was not sleeping enough, so she tookoxycodone and tramadol Tuesday night and woke on Tuesday confused, more likely unable to think clearly and carry her thoughts through to completion. CT of the brain is negative, CTA was normal as well.Son relates she has become very perseverative on [...] 06/23/25 06/23/26 Yes Thierno Reeder APRN - JIRA ADMINISTRATOR clopidogrel (Plavix) 75 MG tablet Take 1 [...] tablet (50 mg) by mouth daily. Do notcrush or chew. 06/23/25 06/23/26 Yes HOLLI Marr CNP NIFEdipine XL (Procardia XL) 30 MG 24 hr tablet Take 1 tablet (30 mg) by mouth daily. Do not crush,chew, or split. 06/23/25 06/23/26 Yes HOLLI Marr CNP oxyCODONE (Roxicodone) 5 MG immediate release tablet Take 1 tablet (5 mg) by mouth every 6 hours asneeded for severe pain (7-10) (acute post surgical pain) for up to 5 days. 06/22/25 06/27/25 Yes HOLLI Lira CNP rosuvastatin (Crestor) 40 MG tablet Take 1 tablet (40 mg) by mouth daily. 06/23/25 06/23/26 Yes HOLLI Marr CNP tiZANidine (Zanaflex) 4 MG tablet 4 mg every 8 hours as needed for muscle spasms. 04/08/25 Yes Historical Provider, acetaminophen (Tylenol) 500 MG tablet Take 2 tablets (1,000 mg) by mouth every 8 hours for 10 days.06/22/25 07/02/25 HOLLI Marr CNP furosemide (Lasix) 40 MG tablet Take 1 tablet (40 mg) by mouth daily for 5 days. 06/23/25 06/28/25 HOLLI Marr CNP potassium chloride CR (K-Tab) 20 MEQ ER tablet Take 1 tablet (20 mEq) by mouth daily for 5 days. Donot crush, chew, or split. 06/23/25 06/28/25 HOLLI [...] confused when trying to relate events of pastdays Memory: Normal Fund of Knowledge: Normal Language: [...] limbs and axial musculature the following findings applied:Drift: absent Reflexes: after evaluation of 4 limbs, [...] QT Interval 392 QTC Interval 459 P Middlebourne 49 QRS Middlebourne 97 T Wave Middlebourne 206 NH Interval 149 Impression Sinus rhythm Consider right [...] 06/24/2025 Patient Name: RICHIE ARMAS : 1950 [facility]#: [id number] Exam Date/Time: 06/24/2025 15:13 Procedure: MR BRAIN WO CONTRAST Ordering Provider: BERGER MARYAMReason For Exam: Mental status change, unknown cause [...] hemorrhage mass effect or midline shift. There arepatchy and confluent areas of T2 bright signal in the periventricular and subcortical white matter,which are nonspecific, but may relate to chronic small vessel ischemic changes. Ventricular system is normal for age. Basal cisterns are not effaced. No pathologic extra-axial fluid collection identified. Major intracranial flow voids are visualized. 1. 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 Extensive chronic ischemic changes. CRITICAL TEST RESULT COMMUNICATION: Notification of these findings was made to MARRY BERGER via [employer] Messaging on 06/24/2025 7:02 PM EDT. [...] on the EMR, and/or coordinating care. An ad ditional 10 minutes was spent discussing assessment/plan with Dr. Valle. Electronically signed by Annette Saldana APRN - CLINICAL TRIAL ASSISTANT/JIRA ADMINISTRATOR on 06/25/2025 at 10:25 AM [1] Past [...] being confused shortly after being discharge from [facility] after CABG Patient reported having busy weekend [...] her confusion particularly after the addition of CLINICAL TRIAL ASSISTANT suppressants The possibility that the minor cortical [...] chart including MAR, labs, neuroimaging, other imaging studiesand discussed my diagnostic impression and patient's plan of care with my CRISTIANO [x] Encounter Face to Face [x] Consult [x] Time spend [x] 80 [x] will continue to follow Personal discussion of test results and plan of care with: Family, Patient treatments and testing options informed consent and plan of care, Admitting Team, ., . Thank you NARINDER CRUM for the opportunity to be involved in this patient's care. documented in this [facility]08-05-2025 Consult note* Annette Saldana APRN - CLINICAL TRIAL ASSISTANT - 06/25/2025 10:24 AM EDT CONSULT NOTE: STROKE SERVICE Patient Name: Richie Armas Patient : 1950 Date of Admission: 06/24/2025 Chief Complaint: confusion HPI: 75 y.o. with a PMH of CABG on 06/18, HLD, fibromyalgia, CKD, Raynaud's, anxiety who presented to [facility] on 06/24/25 with a chief complaint of [...] she was not sleeping enough, so she tookoxycodone and tramadol Tuesday night and woke on Tuesday confused, more likely unable to think clearly and carry her thoughts through to completion. CT of the brain is negative, CTA was normal as well.Son relates she has become very perseverative on [...] 06/23/25 06/23/26 Yes Thierno Reeder APRN - JIRA ADMINISTRATOR clopidogrel (Plavix) 75 MG tablet Take 1 [...] tablet (50 mg) by mouth daily. Do notcrush or chew. 06/23/25 06/23/26 Yes HOLLI Marr CNP NIFEdipine XL (Procardia XL) 30 MG 24 hr tablet Take 1 tablet (30 mg) by mouth daily. Do not crush,chew, or split. 06/23/25 06/23/26 Yes HOLLI Marr CNP oxyCODONE (Roxicodone) 5 MG immediate release tablet Take 1 tablet (5 mg) by mouth every 6 hours asneeded for severe pain (7-10) (acute post surgical pain) for up to 5 days. 06/22/25 06/27/25 Yes HOLLI Lira CNP rosuvastatin (Crestor) 40 MG tablet Take 1 tablet (40 mg) by mouth daily. 06/23/25 06/23/26 Yes HOLLI Marr CNP tiZANidine (Zanaflex) 4 MG tablet 4 mg every 8 hours as needed for muscle spasms. 04/08/25 Yes Historical Provider, acetaminophen (Tylenol) 500 MG tablet Take 2 tablets (1,000 mg) by mouth every 8 hours for 10 days.06/22/25 07/02/25 HOLLI Marr CNP furosemide (Lasix) 40 MG tablet Take 1 tablet (40 mg) by mouth daily for 5 days. 06/23/25 06/28/25 HOLLI Marr CNP potassium chloride CR (K-Tab) 20 MEQ ER tablet Take 1 tablet (20 mEq) by mouth daily for 5 days. Donot crush, chew, or split. 06/23/25 06/28/25 Thierno Reeder APRN - JIRA ADMINISTRATOR lubiprostone (Amitiza) 24 MCG capsule Take 24 [...] confused when trying to relate events of pastdays Memory: Normal Fund of Knowledge: Normal Language: [...] limbs and axial musculature the following findings applied:Drift: absent Reflexes: after evaluation of 4 limbs, [...] QT Interval 392 QTC Interval 459 P Middlebourne 49 QRS Middlebourne 97 T Wave [place] 206 NH Interval 149 Impression Sinus rhythm Consider right [...] MR BRAIN WO CONTRAST Ordering Provider: BERGER MARYAMReason For Exam: Mental status change, unknown cause [...] hemorrhage mass effect or midline shift. There arepatchy and confluent areas of T2 bright signal in the periventricular and subcortical white matter,which are nonspecific, but may relate to chronic small vessel ischemic changes. Ventricular system is normal for age. Basal cisterns are not effaced. No pathologic extra-axial fluid collection identified. Major intracranial flow voids are visualized. 1. 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 Extensive chronic ischemic changes. CRITICAL TEST RESULT COMMUNICATION: Notification of these findings was made to MARRY BERGER via [employer] Messaging on 06/24/2025 7:02 PM EDT. Report [...] on the EMR, and/or coordinating care. An ad ditional 10 minutes was spent discussing assessment/plan with [...] being confused shortly after being discharge from [facility] after CABG Patient reported having busy weekend [...] her confusion particularly after the addition of CLINICAL TRIAL ASSISTANT suppressants The possibility that the minor cortical [...] chart including MAR, labs, neuroimaging, other imaging studiesand discussed my diagnostic impression and patient's plan of care with my CRISTIANO [x] Encounter Face to Face [x] Consult [x] Time spend [x] 80 [x] will continue to follow Personal discussion of test results and plan of care with: Family, Patient treatments and testing options informed consent and plan of care, Admitting Team, ., . Thank you NARINDER CRUM for the opportunity to be involved in this patient's care. [facility] [id number] Patient's home Note* Home Care - Megha Craig RN - 06/25/2025 9:41 AM EDT Patient is currently active with [facility]. The patient is currently receiving SN/PT services through the agency. Art Historian to continue to follow. [id number] Hospital Discharge instructions* Discharge Instructions* Dianelys Shook RN - 06/25/2025 7:30 AM [...] and the need for follow-up with a physician/EDUCATION ADMINISTRATIVE ASSISTANT/PA after discharge. Dianelys Shook RN on 06/25/25 [...] Shook RN on 06/25/25 at 7:29 AM * Discharge Instr - KERI* Megha Craig RN - 06/26/2025 3:47 PM EDT Images from the original note were not included. Continuity of Care Form Patient Name: Richie Armas : 1950 Admit date: 06/24/2025 Discharge date: Code Status Order: Full Code Advance Directives: N Admitting Physician: Marry Berger MD PCP: NARINDER CRUM Discharging Nurse: Discharging Hospital Unit/Room#: W3-333/W3-333 A Discharging Unit Phone Number: Emergency Contact: Extended Emergency Contact Information Primary Emergency Contact: Tomasz Armas Mobile Relation: Spouse Secondary Emergency Contact: All Armas Mobile Relation: Daughter Preferred language: [employer] Employee needed? No Past Surgical History: Past Surgical [...] kg (133 lb 4.8 oz) SpO2 98% BMI23.61 kg/m Last documented pain score (0-10 scale): Last Weight: Wt Readings from Last 1 Encounters: 06/25/25 60.5 kg (133 lb 4.8 oz) Mental Status: {KERI Patient Mental Status:92276} IV Access: {KERI IV Access:45986} Nursing Mobility/ADLs: Walking {SUNNY ADL:::Independent} Transfer {SUNNY ADL:::Independent} Bathing {SUNNY ADL:::Independent} Dressing {SUNNY ADL:::Independent} Toileting {SUNNY ADL:::Independent} Feeding {SUNNY ADL:::Independent} Instrument Repair Specialist {SUNNY ADL:::Independent} Med Delivery {yes/no:84475} Wound Care Documentation and Therapy: Wound/Incision 06/18/25 Incision Sternum (Active) Number of days: 8 Wound/Incision 06/18/25 Incision Calf Anterior;Left (Active) Number of days: 7 Elimination: Continence: Bowel: {yes/no:58355} Bladder: {yes/no:01370} Urinary Catheter: {KERI Urinary Catheter:12123} Colostomy/Ileostomy/Ileal Conduit: {YES / NO:} Date of Last BM: Intake/Output Summary (Last 24 hours) at 06/26/2025 1547 Last data filed at 06/26/2025 0415 Gross per 24 hour Intake 340 ml Output -- Net 340 ml I/O last 3 completed shifts: In: 1509.2 (25 mL/kg) [P.O.:840; I.V.:669.2 (11.1 mL/kg)] Out: - (0 mL/kg) Weight: 60.5 kg Safety Concerns: {KERI Safety Concerns:79571} Impairments/Disabilities: {KERI Impairments/Disabilities:20075} Nutrition Therapy: Current Nutrition Therapy: {KERI Diet List:21226} Routes of Feeding: {routes of feedin} Liquids: {liquid consistency:58485} Daily Fluid Restriction: {daily fluid restriction:27647} Last Modified Barium Swallow with Video (Video Swallowing Test): {done not done:17894} Treatments at the Time of Hospital Discharge: Respiratory Treatments: Oxygen Therapy: {Therapy; copd oxygen:90141} Ventilator: {KERI Ventilator:31224} Rehab Therapies: {GEN THERAPY DISCIPLINE SCAL:4131983} Weight Bearing Status/Restrictions: {POD WEIGHT BEARIN} Other Medical Equipment (for information only, NOT a DME order): {Assistive Devices DME:80351} Other Treatments: Patient's personal belongings (please select all that are sent with patient): {KERI Patient Belongings:12318} RN SIGNATURE: {E-signature:85334} CASE MANAGEMENT/SOCIAL WORK SECTION Inpatient Status Date: Discharging to Facility/ Agency Name: [facility] [employer], [facility] Address: [address] [place] [address] Dialysis Facility (if applicable) Name: Address: Dialysis Schedule: Phone: Fax: Donor Relations Associate/Bingo Checker signature: {E-signature:22449} PHYSICIAN SECTION Name: Richie Armas Prognosis: {Rehab Prognosis:29109} Condition at Discharge: {Patient Condition:51386} Rehab Potential (if transferring to Rehab): {Rehab Prognosis:85852} Recommended Labs or Other Treatments After Discharge: The individual is being admitted to a nursing facility directly from an [facility] or a unit of a [facility] that is not operated by or licensed by [facility] under section 5119.14 or 5160-3-15.1 5 The individual requires the level of services provided by a nursing facility for the condition for which he or she was treated in the hospital and, Physician Certification: I certify the above information and transfer of Richie Armas is necessary for the continuing treatment of the diagnosis listed and that she requires {KERI Level of Care:64175} for {greater less than:00974} 30 days. Update Admission H&P: {KERI Changes in H&P:28895} PHYSICIAN SIGNATURE: {E-signature:66532} documented in this [facility]08-05-2025 Progress note* Care Coordination - Dilma Ross RN - 06/25/2025 6:44 AM EDT Care Management Progress Note Short Medical why still here: from home- re admission - recent CABG 06/18 , has pcp , script coverage and is home with . [facility] with [facility] . PT/OT neuro recs pending Planned Discharge Disposition: Home Health Services [facility]ison [facility] Barriers/Today we still Wait: Environmental Protection Economist recommendations (comment), Diagnostic workup Length of Stay (Days): 1 GMLOS: No GMLOS Documented [facility]10 NoteSpeech-Language Pathology Patient passed the Nursing Swallowing Screening. As per stroke policy, no formal dysphagia evaluation is required. Completed speech orders. Tamiko Rodgers M.A. [facility]08-04-2025 History and physical note* Marry Berger MD - 06/24/2025 1:34 PM EDT Attending History and Physical Admit Date: 06/24/2025 PCP: NARINDER CRUM CHIEF COMPLAINT: [AMS and palpitations] Reason [...] bilaterally by NASCET criteria. Partially imaged postoperative changesrelated to recent CABG. CXR: mild interval decrease [...] Ht 5' 3 (1.6 m) Wt 138 lb(62.6 kg) SpO2 99% BMI 24.45 kg/m BMI [...] consult if MRI positive - PT OT STRIP CATCHER - Permissive hypertension with SBP> 140 for [...] Extended Emergency Contact Information Primary Emergency Contact: Tomasz Armas Mobile Relation: Spouse Secondary Emergency Contact: All Armas Mobile Relation: Daughter Preferred language: [employer] Employee needed? No ------- TOTAL time spent on [...] to the information contained within the note pleasecontact the signing provider for clarification. Marry Berger MD Division of Hospitalist Medicine [facility] [1] No past medical history [...] [6] No past medical history on file. [id number] History and physical note* Marry Berger MD - 06/24/2025 1:34 PM EDT Attending History and Physical Admit Date: 06/24/2025 PCP: NARINDER CRUM CHIEF COMPLAINT: [AMS and palpitations] Reason [...] bilaterally by NASCET criteria. Partially imaged postoperative changesrelated to recent CABG. CXR: mild interval decrease [...] Ht 5' 3 (1.6 m) Wt 138 lb(62.6 kg) SpO2 99% BMI 24.45 kg/m BMI [...] consult if MRI positive - PT OT STRIP CATCHER - Permissive hypertension with SBP> 140 for [...] Extended Emergency Contact Information Primary Emergency Contact: Tomasz Armas Mobile Relation: Spouse Secondary Emergency Contact: All Armas Mobile Relation: Daughter Preferred language: [employer] Employee needed? No ------- TOTAL time spent on [...] to the information contained within the note pleasecontact the signing provider for clarification. Marry Berger MD Division of Hospitalist Medicine [facility] [1] No past medical history [...] medical history on file. documented in this [facility]08-04-2025 [facility] 06-24-2025 Emergency department Note* Lucho Longoria PA-C - 06/24/2025 9:32 AM EDT Emergency Department Encounter [facility] EMERGENCY DEPT Patient: Richie Armas : 1950 Date of Evaluation: 06/24/2025 ED CRISTIANO Provider: Lucho Longoria PA-C EDcare was supervised by Dr. Chavarria who independently examined and evaluated the patient. Please see their attestation note for further details. Chief Complaint Chief Complaint Patient presents with Altered Mental Status Pt had open heart on 06/18, Patient c/o heart palpations, acid reflex flare and confusion for a few days. [place] Richie Armas is a 75 y.o. female who presents to the emergency department for altered mental status. Recently had CABG on 06/18/2025. Has been more confused for the past few days and forgetful. Alsohas been intermittent cramping. Recently started statin. Also has been having palpitations. Denies any chest pain or shortness of breath. Limitations to history: None Outside historians: [facility] Past History Medical History[1] Surgical History[2] Social [...] tablet (50 mg) by mouth daily. Do notcrush or chew. NIFEDIPINE XL (PROCARDIA XL) 30 MG 24 HR TABLET Take 1 tablet (30 mg) by mouth daily. Do not crush,chew, or split. OXYCODONE (ROXICODONE) 5 MG IMMEDIATE RELEASE TABLET Take 1 tablet (5 mg) by mouth every 6 hours asneeded for severe pain (7-10) (acute post surgical pain) for up to 5 days. POTASSIUM CHLORIDE CR (K-TAB) 20 MEQ ER TABLET Take 1 tablet (20 mEq) by mouth daily for 5 days. Donot crush, chew, or split. ROSUVASTATIN (CRESTOR) 40 [...] 407 ms QTC Interval 462 ms P [place] 42 degrees QRS [place] 85 degrees T Wave [place] 0 degrees [place] Interval 160 ms CBC auto differential Collection [...] pneumothorax. Cardiomediastinal silhouette: Stable cardiomediastinal silhouette.Atherosclerotic calcifications ofthe aortic archStatus post median sternotomy for presumed CABG. Other: Degenerative changes of the spine and shoulders. Report Dictated on Electronically Signed By: Delvis Morin MD Electronically Signed Date/Time: 06/24/2025 9:57 AM EDT MR brain wo contrast (Results Pending) : EKG: All EKG's areinterpreted by the Emergency Department Physician in the absence of a air traffic systems technician. see their note for interpretation of EKG. [...] MEDICATIONS: New Prescriptions No medications on file @[facility]([id number]:LAST:1)@ (Please note: Portions of this note were [...] Vaping status: Never Used Social Drivers of Health Intimate Partner Violence: Not At Risk (06/14/2025) [...] Longoria PA-C 06/24/25 1631 Cosigned by Gokul Chavarria DO at 06/25/2025 7:07 AM EDT * Gokul Chavarria DO - 06/24/2025 9:32 AM EDT Emergency Department Encounter [facility] EMERGENCY DEPT Patient: Richie Armas : 1950 Date of Evaluation: 06/24/2025 ED Supervising Physician: Gokul Chavarria DO I personally saw Richie Armas and [...] Reports she is forgetting what she is doingin the moment and at times feels like she is zoning out. Patient reports right sided neck pain where they accessed her with the [place] catheter. Denies fever/chills, nausea/vomiting, paresthesias, weakness. Patient [...] are any questions or concerns please feel freeto contact the dictating provider for clarification.) Gokul Chavarria DO [employer] Gokul Chavarria DO 06/25/25 0722 documented in this [facility]08-04-2025 Physician Emergency department Note* Lucho Longoria PA-C - 06/24/2025 9:32 AM EDT Emergency Department Encounter [facility] EMERGENCY DEPT Patient: Richie Armas : 1950 Date of Evaluation: 06/24/2025 ED CRISTIANO Provider: Lucho Longoria PA-C EDcare was supervised by Dr. Chavarria who independently examined and evaluated the patient. [...] for the past few days and forgetful. Alsohas been intermittent cramping. Recently started statin. Also [...] tablet (50 mg) by mouth daily. Do notcrush or chew. NIFEDIPINE XL (PROCARDIA XL) 30 MG 24 HR TABLET Take 1 tablet (30 mg) by mouth daily. Do not crush,chew, or split. OXYCODONE (ROXICODONE) 5 MG IMMEDIATE RELEASE TABLET Take 1 tablet (5 mg) by mouth every 6 hours asneeded for severe pain (7-10) (acute post surgical pain) for up to 5 days. POTASSIUM CHLORIDE CR (K-TAB) 20 MEQ ER TABLET Take 1 tablet (20 mEq) by mouth daily for 5 days. Donot crush, chew, or split. ROSUVASTATIN (CRESTOR) 40 [...] 407 ms QTC Interval 462 ms P [place] 42 degrees QRS [place] 85 degrees T Wave [place] 0 degrees [place] Interval 160 ms CBC auto differential Collection [...] pneumothorax. Cardiomediastinal silhouette: Stable cardiomediastinal silhouette.Atherosclerotic calcifications ofthe aortic archStatus post median sternotomy for presumed CABG. Other: Degenerative changes of the spine and shoulders. Report Dictated on Electronically Signed By: Delvis Morin MD Electronically Signed Date/Time: 06/24/2025 9:57 AM EDT MR brain wo contrast (Results Pending) : EKG: All EKG's areinterpreted by the Emergency Department Physician in the absence of a air traffic systems technician. see their note for interpretation of EKG. [...] MEDICATIONS: New Prescriptions No medications on file @[facility]([id number]:LAST:1)@ (Please note: Portions of this note were completed with a voice recognition program. Efforts were made to edit the dictations but occasionally words and phrases are mis-transcribed.) Form [id number] Lucho Longoria PA-C [facility] [1] No past medical history on file. [2] No past surgical history on file. [3] Social History Socioeconomic History Marital status: Tobacco Use Smoking status: Unknown Vaping Use Vaping status: Never Used Social Drivers of Health Intimate Partner Violence: Not At Risk (06/14/2025) [...] Longoria PA-C 06/24/25 1631 Cosigned by Gokul Chavarria DO at 06/25/2025 7:07 AM EDT [id number] Physician Emergency department Note* Gokul Chavarria DO - 06/24/2025 9:32 AM EDT Emergency Department Encounter [facility] EMERGENCY DEPT Patient: Richie Armas : 1950 Date of Evaluation: 06/24/2025 ED Supervising Physician: Gokul Chavarria DO I personally saw Richie Armas and [...] Reports she is forgetting what she is doingin the moment and at times feels like she is zoning out. Patient reports right sided neck pain where they accessed her with the [place] catheter. Denies fever/chills, nausea/vomiting, paresthesias, weakness. Patient [...] are any questions or concerns please feel freeto contact the dictating provider for clarification.) Gokul Chavarria DO [employer] Gokul Chavarria DO 06/25/25 0722 [facility] Phone: [phone] 339-441908-04-2025 Telephone encounter Note* Telephone Encounter - Leighann Moreno - 06/24/2025 8:11 AM EDT Pt returned call to office, she is now reporting sudden onset of neck pain and increased confusion today. Advised pt be seen in ED since she is having new/worsening symptoms. Patient's son states he will bring her to [facility] ED for evaluation. [facility] [id number] Miscellaneous Notes* Telephone Encounter - Leighann Moreno - 06/24/2025 8:11 AM EDT Pt returned call to office, she is now reporting sudden onset of neck pain and increased confusion today. Advised pt be seen in ED since she is having new/worsening symptoms. Patient's son states he will bring her to [facility] ED for evaluation. * Telephone Encounter - Thierno Reeder APRN - PRABHJOT - 06/23/2025 2:41 PM EDT Called patient Patient stated she got home [...] will go to the ED for evaluation. * Telephone Encounter - Cathleen Lim - 06/23/2025 2:29 PM EDT Name of caller requesting page: Richie Phone number of caller: [phone] Facility requesting page: patient Reason for page: tightness in chest, low urine output, and discomfort Provider paged: HOLLI Marr CNP Practice name of paged provider: Cardiothoracic Surgery Page placed to #: [phone] Time page was sent or provider contacted: 2:28pm Method of contact: secure chat Page content: Brie Reeder! Patient is requesting a returned call to [phone] to discuss c/o tightness in chest, low urine output, and discomfort. Patient states that she recently had cardiac surgery on 06/18/25 and currently having complications. Thank you. documented in this [facility]08-03-2025 Telephone encounter Note* Telephone Encounter - HOLLI Marr CNP - 06/23/2025 2:41 PM EDT Called patient Patient stated she got home [...] will go to the ED for evaluation. [id number] Miscellaneous Notes* Telephone Encounter - HOLLI Marr CNP - 06/23/2025 2:41 PM EDT Called patient Patient stated she got home [...] will go to the ED for evaluation. * Telephone Encounter - Cathleen Lim - 06/23/2025 2:29 PM EDT Name of caller requesting page: Richie Phone number of caller: [phone] Facility requesting page: patient Reason for page: tightness in chest, low urine output, and discomfort Provider paged: HOLLI Marr CNP Practice name of paged provider: Cardiothoracic Surgery Page placed to #: [phone] Time page was sent or provider contacted: 2:28pm Method of contact: secure chat Page content: Brie Reeder! Patient is requesting a returned call to [phone] to discuss c/o tightness in chest, low urine output, and discomfort. Patient states that she recently had cardiac surgery on 06/18/25 and currently having complications. Thank you. documented in this [facility]08-03-2025 Telephone encounter Note* Telephone Encounter - Cathleen Lim - 06/23/2025 2:29 PM EDT Name of caller requesting page: Richie Phone number of caller: [phone] Facility requesting page: patient Reason for page: tightness in chest, low urine output, and discomfort Provider paged: HOLLI Marr CNP Practice name of paged provider: Cardiothoracic Surgery Page placed to #: [phone] Time page was sent or provider contacted: 2:28pm Method of contact: secure chat Page content: Brie Reeder! Patient is requesting a returned call to [phone] to discuss c/o tightness in chest, low urine output, and discomfort. Patient states that she recently had cardiac surgery on 06/18/25 and currently having complications. Thank you. [facility]ssmyp80-22-8936 [facility]08-02-2025 Hospital course Narrative* HOLLI Marr CNP - 06/22/2025 10:50 AM EDT Images from the original note were not included. Discharge Summary: Cardiothoracic Surgery Richie Armas, 75 y.o., 1950 ADMIT DATE: 06/14/2025 DISCHARGE DATE: 06/22/2025 VISIT STATUS: Admission CODE STATUS: Full Code DISCHARGING SURGEON: Anders Johnston DO, Office Number: [phone] DISCHARGE DIAGNOSES: MVCAD s/p CABG NSTEMI HLD Raynaud's Osteoporosis Anxiety/depression Chronic back pain IBS/constipation Hypothyroidism Post operative Pulm Management: Normal Post-operative Course Post-operative Atrial Fibrillation: []Yes [x] No Acute blood loss anemia/consumptive coagulopathy BMI CLASSIFICATION:Overweight (BMI 25.0-29.9) TREATMENT TEAM: Primary Care Physician: NARINDER CRUM Tennis Racket Repairer: Dr. Hong SURGERY: s/p CABGx3 (VICK to LAD, rsvg to OM, rsvg RPDA) left lower leg EVH with Dr. Johnston on 06/18/25 HOSPITAL COURSE: 75 year old female patient with PMHx that includes CKD2, Raynaud's, anxiety/depression, IBS/constipation, GERD, fibromyalgia, hypothyroidism, chronic low back pain S/P lumbar spinal surgery that presented to [facility] on 06/14/2025 from [facility]. Patient reports worsening chest pain associated with daily walks which started approximately 1 week ago. Initially she attributed this to her prior diagnosis of GERD but when she experienced pain 06/14 that did not resolve with rest she presented to [place] ED. LHC at [facility] demonstrated severe multivessel disease and she was transferred to [facility] for CABG evaluation. Agreeable to CABG, went [...] Your Medications These medications were sent to [facility]/pharmacy #[id number] [address] aspirin 81 MG chewable tablet clopidogrel 75 [...] surgical pain. I also explained that narcotic/opioid medicationshould not be taken to help sleep as [...] restriction approximate end date: FOLLOW UP: Thierno CABRERA July 04 at 10:30pm [address] [facility] [place] [address] Dept: [phone] Dept CORE CARDIAC MEDICATIONS PRESCRIBED AT DISCHARGE: Beta-karlo prescribed at discharge: [x] Yes [] No [...] call with questions, activity, restrictions, and limitations wasprovided to the patient or their family. We [...] OF SERVICE: 1:51 PM documented in this [facility]08-02-2025 Hospital Discharge instructions* Discharge Instructions* Thierno Reeder, 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 - JIRA ADMINISTRATOR - 06/22/2025 10:42 AM EDT Images from the original note were not included. [facility]: Cardiothoracic Surgery [address] [facility] #[phone] Notify us if the following occur - [...] 6 weeks (a gallon of milk weighs 8pounds). - Do not drive until you have [...] but do not pull yourself up with yourarms. - Shower daily. Do not take your [...] Cardiothoracic Surgery: Symptom Management Office phone number: [phone] Office is open 8:30 am -4 pm. If you need assistance after hours, this will direct you to a nursinghotline. GREEN ZONE: All Clear- Your Symptoms Are Under Control Incisional pain is managed by taking Acetaminophen and/or pain medication No increase in shortness of breath No increase in leg swelling or weight gain No frequent lightheadedness/dizziness No redness or drainage from incisions. Small amount of thin, blood tinged or yellow drainage is notuncommon for few days post discharge This Means [...] Call cardiothoracic surgery line for further instructions: [phone] Office is open 8:30 am -4 pm. If you need assistance after hours, this will direct you to a nursinghotline. RED ZONE: Medical Alert Severe shortness of [...] use any lotions, or powders, or ointments. * Discharge Instr - KERI* Benita Dixon RN - 06/19/2025 11:37 AM EDT Images from the original note were not included. Continuity of Care Form Patient Name: Richie Armas : 1950 Admit date: 06/14/2025 Discharge date: Code Status Order: Full Code Advance Directives: N Admitting Physician: Anders Johnston DO PCP: NARINDER CRUM Discharging Nurse: Discharging Hospital Unit/Room#: T1101/T1101 A Discharging Unit Phone Number: Emergency Contact: Extended Emergency Contact Information Primary Emergency Contact: Tomasz Armas Mobile Relation: Spouse Secondary Emergency Contact: All Armas Mobile Relation: Daughter Preferred language: [employer] Employee needed? No Past Surgical History: No past [...] 6.9 oz) Mental Status: {KERI Patient Mental Status:21614} IV Access: {KERI IV Access:17637} Nursing Mobility/ADLs: Walking {SUNNY ADL:::Independent} Transfer {SUNNY ADL:::Independent} Bathing {SUNNY ADL:::Independent} Dressing {SUNNY ADL:::Independent} Toileting {SUNNY ADL:::Independent} Feeding {SUNNY ADL:::Independent} Instrument Repair Specialist {SUNNY ADL:::Independent} Med Delivery {yes/no:17080} Wound Care Documentation and Therapy: Wound/Incision 06/18/25 Incision Sternum (Active) Site Assessment Clean;Dry;Intact 06/19/25 0800 Raven-Wound Assessment Clean;Dry;Intact 06/19/25 0800 Odor None 06/19/25 0400 Drainage Amount None 06/19/25 0800 Primary Dressing Liquid dressing adhesive 06/19/25 0800 Dressing Status Clean, dry & intact 06/19/25 0800 Number of days: 1 Wound/Incision 06/18/25 Incision Calf Anterior;Left (Active) Site Assessment Clean;Dry;Intact 06/19/25 0800 Raven-Wound Assessment Clean;Dry;Intact 06/19/25 0800 Odor None 06/19/25 0400 Drainage Amount None 06/19/25 0800 Primary Dressing Liquid dressing adhesive 06/19/25 0800 Dressing Status Clean, dry & intact 06/19/25 0800 Number of days: 0 Elimination: Continence: Bowel: {yes/no:89015} Bladder: {yes/no:79333} Urinary Catheter: {KERI Urinary Catheter:96284} Colostomy/Ileostomy/Ileal Conduit: {YES / NO:} Date of [...] Weight: 63.7 kg Safety Concerns: {KERI Safety Concerns:10407} Impairments/Disabilities: {KERI Impairments/Disabilities:89998} Nutrition Therapy: Current Nutrition Therapy: {KERI Diet List:48626} Routes of Feeding: {routes of feedin} Liquids: {liquid consistency:53817} Daily Fluid Restriction: {daily fluid restriction:34965} Last Modified Barium Swallow with Video (Video Swallowing Test): {done not done:75563} Treatments at the Time of Hospital Discharge: Respiratory Treatments: Oxygen Therapy: {Therapy; copd oxygen:08188} Ventilator: {KERI Ventilator:18566} Rehab Therapies: {GEN THERAPY DISCIPLINE SCAL:9362536} Weight Bearing Status/Restrictions: {POD WEIGHT BEARIN} Other Medical Equipment (for information only, NOT a DME order): {Assistive Devices DME:69759} Other Treatments: Patient's personal belongings (please select all that are sent with patient): {KERI Patient Belongings:57956} RN SIGNATURE: {E-signature:21290} CASE MANAGEMENT/SOCIAL WORK SECTION Inpatient Status Date: Discharging to Facility/ Agency Name: [facility] Address: [address] [place] [address] Dialysis Facility (if applicable) Name: Address: Dialysis Schedule: Phone: Fax: Donor Relations Associate/Bingo Checker signature: {E-signature:51172} PHYSICIAN SECTION Name: Richie Armas Prognosis: {Rehab Prognosis:54796} Condition at Discharge: {Patient Condition:41679} Rehab Potential (if transferring to Rehab): {Rehab Prognosis:16002} Recommended Labs or Other Treatments After Discharge: The individual is being admitted to a nursing facility directly from an [facility] or a unit of a [facility] that is not operated by or licensed by [facility] under section 5119.14 or 5160-3-15.1 5 The individual requires the level of services provided by a nursing facility for the condition for which he or she was treated in the hospital and, Physician Certification: I certify the above information and transfer of Richie Armas is necessary for the continuing treatment of the diagnosis listed and that she requires {KERI Level of Care:93758} for {greater less than:80430} 30 days. Update Admission H&P: {KERI Changes in H&P:84735} PHYSICIAN SIGNATURE: {E-signature:34992} documented in this [facility]08-02-2025 History of Present illness Narrative* Quita Urbano MD - 06/22/2025 7:44 AM EDT Images from the original note were not included. [facility] Vascular [facility] Interventional Cardiology NAME: Richie Armas DATE [...] is an 75 y.o. female presents from [facility] on 06/14/25 with past medical history significant for CKD stage II, Raynaud's, fibromyalgia, chronic back pain s/p lumbar spinal surgery, hypothyroidism, GERD, IBS and anxiety and depression. When patient presented to the hospital she reported increase chest pain during her daily walks for about 1 week. She initially thought it maybe 2/2 GERD but became concerned when CP did not resolve with rest. She was found to be NSTEMI. HerLHC at [place] showed MVCAD. She was transferred to [facility] for CABG evaluation. She had a normal [...] QT Interval 407 QTC Interval 430 P [place] 48 QRS [place] 61 T Wave [place] 0 [place] Interval 150 Impression Sinus rhythm Compared to [...] Urbano M.D. Fellow Interventional Cardiology [facility] - Cardiology [1] Allergies Allergen Reactions Flexeril [...] with the resident's medical decision making. 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 She initially thought she was having acid reflux-like symptoms but symptoms worsened with radiation to her arm so she presented at [place]. She was found to have elevated troponin and underwent coronary angiography that showed multivessel coronary artery disease with subtotally occluded RCA, high-grade lesion obtuse marginal branch and obstructive disease in the LAD. She was subsequently transferred to [facility] for bypass consideration. She had a normal [...] 80 mg daily and Plavix 75 mg daily.The patient is currently getting metoprolol 25 mg twice daily which can be transition to metoprololsuccinate 50 mg daily at discharge. Continue nifedipine extended release 30 mg daily which she takes for her Raynaud's. The patient has been intolerant of multiple statins in the past. We had startedthe patient on Zetia 10 mg daily which she was tolerating prior to her bypass surgery. We would recommend initiation of Zetia 10 mg daily at discharge. The patient may be a good candidate for bempedoic acid versus PCSK9 inhibitors in the future. She will follow-up with the cardiology team in [facility] after she is done following up with [...] the signing provider directly. Sandip Quezada MD, [facility], [facility] Unix Administrator [facility], [facility] Cardiovascular [address] [place] [address] p [phone] f [phone] [email or web address] * Thierno Reeder, 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 - [facility] - 06/22/2025 5:53 AM EDT Images from the original note were not included. Cardiothoracic Surgery/Critical Care Daily Progress Note PATIENT NAME: Richie Armas DATE: 06/22/25 HPI: 75 year old female patient with PMHx that includes CKD2, Raynaud's, anxiety/depression, IBS/constipation, GERD, fibromyalgia, hypothyroidism, chronic low back pain S/P lumbar spinal surgery that presented to [facility] on 06/14/2025 from [facility]. Patient reports worsening chest pain associated with daily walks which started approximately 1 week ago. Initially she attributed this to her prior diagnosis of GERD but when she experienced pain 06/14 that did not resolve with rest she presented to [place] ED. LHC at [facility] demonstrated severe multivessel disease and she was transferred to [facility] for CABG evaluation. Agreeable to CABG, went [...] possible prior to cutting - educated on possiblewire migration. Patient discussed and plan of day developed from multidisciplinary rounds between Cardiothoracic Surgery (Cardiothoracic Surgeon, CRISTIANO) and Critical Care Attending Cardiac Core Medications: ASA, Plavix, Statin, and BB EF: TTE 06/16/25- EF 50% Blood Conservation: transfused Tennis Racket Repairer: Deandre cardiology Cosigned by Latrell Kidd DO at 06/22/2025 6:20 PM EDT * Andres Laurent, JOSE - 06/21/2025 9:40 AM EDT Images from the original note were not included. PHYSICAL THERAPY [facility] Treatment Note Name/MRN: Richie Armas ([id number]) Date of : 1950 Age: 75 y.o. [...] Individual Co-treatment Time In 924 Time Out 0937 Minutes 12 Timed Code Treatment Minutes: 12 Minutes (1 unit Gait) Andres Laurent PT * Tammi Boateng, 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 - JIRA ADMINISTRATOR - 06/21/2025 8:48 AM EDT Images from the original note were not included. [facility] and Vascular [facility] Interventional Cardiology NAME: Richie Armas DATE [...] dose if appropriate for symptom management. Discussed withprimary team, who will address. Hyperlipidemia, stable Last [...] is an 75 y.o. female presents from [facility] on 06/14/25 with past medical history significant for CKD stage II, Raynaud's, fibromyalgia, chronic back pain s/p lumbar spinal surgery, hypothyroidism, GERD, IBS and anxiety and depression. When patient presented to the hospital she reported increase chest pain during her daily walks for about 1 week. She initially thought it maybe 2/2 GERD but became concerned when CP did not resolve with rest. She was found to be NSTEMI. HerLHC at [place] showed MVCAD. She was transferred to [facility] for CABG evaluation. She had a normal [...] QT Interval 407 QTC Interval 430 P [place] 48 QRS [place] 61 T Wave [place] 0 [place] Interval 150 Impression Sinus rhythm Tracing reviewed [...] 06/21/2025 6:54 AM EDT Tammi Boateng MSN, 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, [employer] - Date of Service: 06/14/2025 Nurse Practitioner in Interventional Cardiology [facility] - Cardiology [1] Allergies Allergen Reactions Flexeril [...] ringers, 250 mL, Last Rate: Stopped (06/18/251912) * HOLLI Marr CNP - 06/21/2025 8:46 AM EDT Images from the original note were not included. Cardiothoracic Surgery/Critical Care Daily Progress Note PATIENT NAME: Richie Armas DATE: 06/21/25 HPI: 75 year old female patient with PMHx that includes CKD2, Raynaud's, anxiety/depression, IBS/constipation, GERD, fibromyalgia, hypothyroidism, chronic low back pain S/P lumbar spinal surgery that presented to [facility] on 06/14/2025 from [facility]. Patient reports worsening chest pain associated with daily walks which started approximately 1 week ago. Initially she attributed this to her prior diagnosis of GERD but when she experienced pain 06/14 that did not resolve with rest she presented to [place] ED. LHC at [facility] demonstrated severe multivessel disease and she was transferred to [facility] for CABG evaluation. Agreeable to CABG, went [...] TTE 06/16/25- EF 50% Blood Conservation: transfused Tennis Racket Repairer: Deandre cardiology I have personally performed a [id number]-ff-exdy diagnostic evaluation on this patient on date of service06/21/25. History, labs, imaging studies, and electronic medical record have been reviewed by me. This note was initially documented by the ACNP-student under my direct supervision. I have reviewed andchanged any elements of this note to reflect my decision making in the care plan of this patient. Tele Status A total of 20 minutes were spent between the [id number]-[id number] encounter, physical exam, reviewing the medical history, coordinating the patient's care, counseling/educating the patient, ordering medications/test/procedures, interpreting results and documenting clinical information in the patients electr onic health record on the day of the encounter. The patient was seen and examined Cosigned by Latrell Kidd DO at 06/22/2025 6:20 PM EDT * Brianna Wright, PT - 06/20/2025 3:00 PM EDT Images from the original note were not included. PHYSICAL THERAPY [facility] Treatment Note Name/MRN: Richie Armas ([id number]) Date of : 1950 Age: 75 y.o. Room/Bed: T1-101/T1101 A Discharge Recommendation: Home with assist PRN, Home with Home health PT Other: TBD- does not own DME Assessment Session split in two this date d/t Afib with HR 150-160 at times during walking in the AM. HR improved to the 60's in the PM. SBA for transfers and walking in the halls with the FWW. Cues for sternalprecautions. Recommend disch to home with assist PRN [...] Chest tube removed before PM session. Only ontele in PM. Overall Cognitive Status: WNL Overall [...] and feeling heavy in the chest. HR 150- 160bpm. RN medicated afterwards. Balance During Session: Posture: [...] TP) Variance: 10 (+ 10 mins from [phone]) Brianna Wright PT * Fiona Vega, HOLLI - JIRA ADMINISTRATOR - 06/20/2025 2:40 PM EDT Images from the original note [...] Patient and nurse educated on possible complications toobserve for. Will continue to monitor. * HOLLI Jeter CNP - 06/20/2025 9:33 AM EDT Images from the original note were not included. Cardiothoracic Surgery/[facility] Progress Note PATIENT NAME: Richie Armas DATE: 06/20/25 HPI: Richie Armas is a 75 year old female patient with PMHx that includes CKD2, Raynaud's, anxiety/depression, IBS/constipation, GERD, fibromyalgia, hypothyroidism, chronic low back pain S/P lumbar spinal surgery that presented to [facility] on 06/14/2025 from [facility]. Patient reports worsening chestpain associated with daily walks which started approximately 1 week ago. Initially she attributed this to her prior diagnosis of GERD but when she experienced pain 06/14 that did not resolve with restshe presented to [place] ED. LHC at [facility] demonstrated severe multivessel disease and she was transferred to [facility] for CABG evaluation. Agreeable to CABG, went [...] Blood Conservation: None noted in post-operative period Tennis Racket Repairer: De[facility]re Cardiology Cosigned by Latrell Kidd DO at 06/22/2025 6:20 PM EDT * Magaly Santana Sammytyrell, HOLLI De León CNP - 06/20/2025 9:12 AM EDT Department of Internal Medicine Division of Endocrinology, Diabetes, & Metabolism Endocrinology Note Patient Name: Richie Armas : 1950 AGE: 75 y.o. Room/Bed: [facility]101/[facility] A Admission Date: 06/14/2025 Visit Date: 06/20/2025 Reason for Endocrine Consult: post heart Provider/Team Requesting Consult: cts PCP: NARINDER CRUM Outpt Bullet Lubricant Mixer: No ASSESSMENT: Stress hyperglycemia Steroid induced hyperglycemia [...] po daily per patient, managed by PCP, tsh2.71 Bgl stable Up awake alert in bed [...] home follows PCP for this last labs werenormal So far is only had water and [...] results, and Other Clinical Notes at the timeof today's encounter. Labs: No components found for: [...] CHOLHDLRATIO 4 06/15/2025 No results found for: [id number] Lab Results Component Value Date TSH 2.71 [...] dextrose, glucagon (rDNA), glucose, HYDROmorphone OR HYDROmorphone, ipratropium- albuterol, lactated ringers, magnesium hydroxide, magnesium sulfate OR magnesium sulfate, naloxone, ondansetron ODT OR ondansetron, oxyCODONE * *OR oxyCODONE, potassium chloride OR potassium chloride OR potassium chloride, potassium chloride CR, sodium chloride, sodium chloride 0.9% [4] History reviewed. No pertinent past medical history. [5] History reviewed. No pertinent surgical history. [6] Allergies Allergen Reactions Flexeril [Cyclobenzaprine] Itching [7] No family history on file. [8] Social History Tobacco Use Smoking status: Unknown * JJ Decker - 06/20/2025 8:37 AM EDT Images from the original note were not included. OCCUPATIONAL THERAPY [facility] Treatment Note Name/MRN: Richie Armas ([id number]) Date of : 1950 Age: 75 y.o. [...] of Care, Precautions, ADL Adaptive Strategies, Transfer Training,Energy Conservation, Equipment, Discharge Recommendations, and Benefits of Increasing Activity Education Method: Verbal Barriers to Learning: None Education Outcome: Verbalized Understanding AM-PAC AM-PAC Inpatient Daily Activity Raw Score: 21 ADL Inpatient [facility] G-Code Modifier: CJ Goals Patient Stated Goal: [...] Us OT at 06/20/2025 9:49 AM EDT * Tammi Boateng APRN - JIRA ADMINISTRATOR - 06/20/2025 7:47 AM EDT Images from the original note were not included. [facility] and Vascular [place] [facility] Interventional Cardiology NAME: Richie Armas DATE OF [...] with exercise for 30 minutes a day 3or more days a week once cleared by CTS. Weight loss. Avoid caffeine, alcohol and tobacco products.Reduce stress. Hyperlipidemia Last LDL 190 above recommended [...] is an 75 y.o. female presents from [facility] on 06/14/25 with past medical history significant for CKD stage II, Raynaud's, fibromyalgia, chronic back pain s/p lumbar spinal surgery, hypothyroidism, GERD, IBS and anxiety and depression. When patient presented to the hospital she reported increase chest pain during her daily walks for about 1 week. She initially thought it maybe 2/2 GERD but became concerned when CP did not resolve with rest. She was found to be NSTEMI. HerLHC at [place] showed MVCAD. She was transferred to [facility] for CABG evaluation. She had a normal [...] right-lower field reveals decreased breath sounds. Examination ofthe left-lower field reveals decreased breath sounds. Decreased [...] QT Interval 407 QTC Interval 430 P [place] 48 QRS [place] 61 T Wave [place] 0 [place] Interval 150 Impression Sinus rhythm Tracing reviewed [...] Report Dictated on Electronically Signed By: Ladarius Lcuiano MD Electronically Signed Date/Time: 06/20/2025 8:01 AM EDT Tammi Boateng MSN, 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, [employer] - Date of Service: 06/14/2025 Nurse Practitioner in Interventional Cardiology [facility] - Cardiology [1] Allergies Allergen Reactions Flexeril [...] ringers, 250 mL, Last Rate: Stopped (06/18/251912) * Melanie Landry, OT - 06/19/2025 3:31 PM EDT Images from the original note were not included. OCCUPATIONAL THERAPY [facility] Initial Evaluation Name/MRN: Richie Armas ([id number]) Evaluation Date: 06/19/2025 Date of : 1950 Admission Date: 06/14/2025 4:44 PM Age: 75 y.o. Room/Bed: T1-101/T1-101 A Discharge Recommendation: Home with assist PRN, Home with Home health OT Equipment Needed: Yes Mobility Devices: ADL Assistive Devices ADL Assistive Devices: Shower Chair with back Assessment IMPRESSION: Pt presents to [facility] with NSTEMI s/p CABG x3 on 06/18. [facility] for functional mobility with no device, CGA-SBA for ADLs. Pt is limited by sternal precautions, post op pain, decreased strength, balance, endurance, impacting ADL performance and will benefit from acute OT services to address noted deficits in preparation for home going. Pt is recommended for home with [facility] OT with PRN assist, children are flying in to assist at homefor discharge. 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 Prior Level of Function [...] but no overt LOB, good carryover of useof pillow for maintaining precautions Device(s) used: None [...] of Care supervision is transferred to a [facility] Occupational Therapist. Goals and/or treatment plan was established in collaboration with patient/family/other representatives. [1] No past medical history on file. [2] No past surgical history on file. * Brianna Wright, PT - 06/19/2025 2:49 PM EDT Images from the original note were not included. PHYSICAL THERAPY [facility] Initial Evaluation Name/MRN: Richie Armas ([id number]) Evaluation Date: 06/19/2025 Date of : 1950 [...] Date Noted NSTEMI (non-ST elevation myocardial infarction) ([facility]) 06/14/2025 Medical Precautions: No active isolations [...] upon return to home. 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 Prior Level of Function Prior Level of [...] with P&C's. Sternal precautions. Use of IS hourly.Ambulating 3-4x daily. Discharge planning. Goals Patient Stated [...] Timed Code Treatment Minutes: (x1 TP) Brianna Wright, PT Patient's Physical Therapy Plan of Care supervision is transferred to a [facility] Physical Therapist. Goals and/or treatment plan was established in collaboration with patient/family/other representatives. [1] No past medical history on file. [2] No past surgical history on file. * Fiona Vega, 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 - JIRA ADMINISTRATOR - 06/19/2025 6:10 AM EDT Images from the original note were not included. Cardiothoracic Surgery/CCM Progress Note PATIENT NAME: Richie Armas DATE: 06/19/25 HPI: Richie Armas is a 75 year old female patient with PMHx that includes CKD2, Raynaud's, anxiety/depression, IBS/constipation, GERD, fibromyalgia, hypothyroidism, chronic low back pain S/P lumbar spinal surgery that presented to [facility] on 06/14/2025 from [facility]. Patient reports worsening chestpain associated with daily walks which started approximately 1 week ago. Initially she attributed this to her prior diagnosis of GERD but when she experienced pain 06/14 that did not resolve with restshe presented to [place] ED. LHC at [facility] demonstrated severe multivessel disease and she was transferred to [facility] for CABG evaluation. Agreeable to CABG, went to OR on 06/18/25. Surgery/Procedure: 06/18/25: Dr. Johnston- CABG x3, ANTONIO, LEVH Interval History: 06/19/25, POD# 01: Afebrile, NSR on tele, BP requiring low dose pressor support this AM, extubated post-op and on NIV. Sitting up in chair, pain present, denies nausea and abdominal pain though largegastric bubble noted on CXR. Overnight 2 amps bicarb given for acidosis. Was on nitroprusside for aperiod of time, then on levophed this AM. Current IV Drips: Insulin- 0.5units/hr Levophed- 0.01mcg/kg/min A-line: Arterial Line BP 1: 122/58 Invasive Hemodynamic Monitoring Blood Temperature: 36.8 C (98.2 F) PAP: 25/17 PAP (Mean): 20 mmHg CVP [...] or diaphoretic. Neck: Comments: Central line and [place]. Cardiovascular: Rate and Rhythm: Normal rate and [...] -Remove arterial line once off pressors. Remove [place]. Add toradol to pain regimen. -Will consider [...] Blood Conservation: None noted in post-operative period Tennis Racket Repairer: Deandre Cardiology Cosigned by Latrell Kidd DO at 06/19/2025 4:35 PM EDT Associated attestation - Latrell Kidd DO - 06/19/2025 4:35 PM EDT I have personally performed a [id number] diagnostic evaluation on this patient on date of llxemyz08/30/25. History, labs, imaging studies, and electronic medical record have been reviewed by me. This note documented by the CRISTIANO reflects my history, exam, and medical decision making. I have reviewed and agree with the care plan. Changes were made in the orders as necessary. ROS documentation wasreviewed and negative unless otherwise stated in HPI. [...] other team members and physicians, excluding procedures. * Kale Yates RRT - 06/18/2025 10:48 PM EDT Pt extubated and transition to NIV 10/26 via Vent 980 per MD order. No adverse reactions noted and will continue to monitor * Harika Valerio RRT - 06/18/2025 10:44 PM EDT [facility] Respiratory Care Department Progress Note Spontaneous Awakening Trial Wean Screen SpO2>/=88%: Yes (06/18/252036) FiO2</=50%: Yes (06/18/252036) PEEP </=8cmH2O: Yes (06/18/252036) HR <140 BPM: Yes (06/18/252036) RR </= 35 breaths/min: Yes (06/18/252036) MAP >/= 65mmHg: Yes (06/18/252036) Arterial pH >7.30: Yes (06/18/252036) Safety Screen Spontaneous Breathing Trial (SBT - RT) : Proceed with SBT - No exclusion criteria met(06/18/252036) Spontaneous Breathing Trial Weaning Start Time: 2155 [...] 06/18/25 1515 06/18/25 1933 PHART 7.394 7.300* FOU1RGP 38.9 48.6* PO2ART 359.3* 159.7* VPE0LTR 23.2 23.4 [id number] Ventilator Ventilator Does this patient meet criteria for termination of mechanical ventilation Yes- Notified physician below Name of physician notified via secure chat or in person : (NA if patient did not meet criteria) Comments: Thank you for involving Respiratory in the care of this patient, * Shayna Dodd, DO - 06/18/2025 6:54 AM EDT Images from the original note were not included. [facility] Heart & Vascular [place] [facility] CCU PROGRESS NOTE Patient Name: Richie Armas : 1950 Subjective: Richie Armas is a 75 y.o. female with PMH CKD 2, Raynaud's, anxiety/depression, IBS/constipation,GERD, fibromyalgia, hypothyroidism, chronic low back pain S/P lumbar spinal surgery that presented to [facility] on 06/14/2025 from outside facility ([facility]). Patient presented to [place] for chestpain and reflux-like symptoms, found to have ST depression in the anterior lateral leads, with elevated trops, LHC found severe multivessel CAD (LAD 70%, subtotally occluded RCA, high-grade obtuse marginal vessel, EF 50%, anterolateral hypokinesis). Patient transferred to [facility] for CABG eval and loaded with ASA, heparin, started on nitroglycerin gtt. Echo on 06/16/25 showed normal LV function, EF 63%. Interval History: Overnight patient began experiencing an increase in CP, 10/10 substernal, was restarted on nitroglycerin gtt titrated up to 100, given IV fentanyl 50 mcg once and IV dilaudid 0.5 mgonce. Continues to have minimal reflux-like sx today. Plan for CABG this afternoon. Hemodynamicallystable. Review of Systems: Review of Systems Constitutional: [...] Intake/Output Summary (Last 24 hours) at 06/18/2025 0654 Last data filed at 06/18/2025 0644 Gross [...] QT Interval 363 QTC Interval 469 P [place] 76 QRS [place] 131 T Wave [place] 23 NH Interval 155 Impression Sinus tachycardia Probable left [...] attempted statin therapy, claims crippling myalgias, will notprescribe at this time, consider PCSK9 inhibitor as OP - Consider addition of LENI/ARB Insomnia Chronic Low Back Pain s/p Lumbar Spinal Surgery - Upon further conversation with pt, states she has chronic MSK pain and takes tramadol and tizanidine at home for this. Tramadol was held on admission, and subsequently, pt had more MSK pain 06/17 atnighttime which affected her sleep quality. Plan: - [...] Oral, BID WC ceFAZolin, 2,000 mg, IntraVENous, Quality Management Nurse to OR chlorhexidine, , Topical, Once ezetimibe, [...] 06/18/2025. I personally obtained the figueroa and criticalportions of the history and physical exam. I reviewed the chart and discussed the patient with the resident. I agree with the resident's medical decision making. 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 She initially thought she was having acid reflux-like symptoms but symptoms worsened with radiation to her arm so she presented at [facility]. She was found to have elevated troponin and underwent coronary angiography that showed multivessel coronary artery disease with subtotally occluded RCA, high-grade lesion obtuse marginal branch and obstructive disease in the LAD. She was subsequently transferred to [facility] for bypass consideration. The first night she [...] twice daily and PPI. The patient does havereported intolerance to multiple statins in the past. [...] the signing provider directly. Sandip Quezada MD, [facility], [facility] Unix Administrator [facility] [address] [address] p [phone] f [phone] [email or web address] * Shayna Dodd, DO - 06/17/2025 6:15 AM EDT Images from the original note were not included. [facility] [place] [facility] CCU PROGRESS NOTE Patient Name: Richie Armas : 1950 Subjective: Richie Armas is a 75 y.o. female with PMH CKD 2, Raynaud's, anxiety/depression, IBS/constipation,GERD, fibromyalgia, hypothyroidism, chronic low back pain S/P lumbar spinal surgery that presented to [facility] on 06/14/2025 from outside facility ([facility]). Patient presented to [facility] for chestpain and reflux-like symptoms, found to have ST depression in the anterior lateral leads, with elevated trops, C found severe multivessel CAD (LAD 70%, subtotally occluded RCA, high-grade obtuse marginal vessel, EF 50%, anterolateral hypokinesis). Patient transferred to [facility] for CABG eval and loaded with ASA, [...] QT Interval 436 QTC Interval 470 P [place] 61 QRS [place] 49 T Wave [place] 33 NH Interval 167 Impression Unknown rhythm, irregular rate [...] demonstrates ST depressions in V2-V5 - Emergent C (06/14/25): severe multivessel CAD (LAD 70%, subtotally occluded RCA, high-grade obtuse marginal vessel, EF 50%, anterolateral hypokinesis) - Trop peak 318 - LDL 190 - TSH 2.71 - A1c 5.8, prediabetes Plan: - CABG planned for Weds - Continue ASA 81 mg, heparin gtt [...] 06/17/2025. I personally obtained the figueroa and criticalportions of the history and physical exam. I reviewed the chart and discussed the patient with the resident. I agree with the resident's medical decision making. 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 She initially thought she was having acid reflux-like symptoms but symptoms worsened with radiation to her arm so she presented at [facility]. She was found to have elevated troponin and underwent coronary angiography that showed multivessel coronary artery disease with subtotally occluded RCA, high-grade lesion obtuse marginal branch and obstructive disease in the LAD. She was subsequently transferred to [facility] for bypass consideration. The first night she was here she did have some mild discomfort. The patient has been maintained on nitroglycerin GGT along with heparin GGT. She was evaluated by the CT surgery team were planning on proceeding with bypass later on this week. Overnight the patient did not have any acute events. This morning she does not have any complaints.She is not endorsing any chest discomfort. She has been weaned off of her nitroglycerin gtt. at this time. Her labs are stable. She underwent an echocardiogram that showed low normal LV function withlateral wall motion abnormality. For her presentation with [...] the signing provider directly. Sandip Quezada MD, [facility], [facility] Unix Administrator [facility] [address] [place] [address] p [phone] f [phone] [email or web address] * Krysten Wilkes - 06/16/2025 2:52 PM EDT Nutrition rescreen completed. Chart reviewed. Patient to be monitored and followed by the diet nuclear test technician. Krysten Wilkes DT * Shayna Dodd DO - 06/16/2025 6:20 AM EDT Images from the original note were not included. [facility] [place] [facility] CCU PROGRESS NOTE Patient Name: Richie Armas : 1950 Subjective: Richie Armas is a 75 y.o. female with PMH CKD 2, Raynaud's, anxiety/depression, IBS/constipation,GERD, fibromyalgia, hypothyroidism, chronic low back pain S/P lumbar spinal surgery that presented to [facility] on 06/14/2025 from outside facility ([facility]). Patient presented to [facility] for chestpain and reflux-like symptoms, found to have ST depression in the anterior lateral leads, with elevated trops, LHC found severe multivessel CAD (LAD 70%, subtotally occluded RCA, high-grade obtuse marginal vessel, EF 50%, anterolateral hypokinesis). Patient transferred to [facility] for CABG eval and loaded with ASA, [...] QT Interval 467 QTC Interval 473 P [place] 59 QRS [place] 68 T Wave [place] 0 NH Interval 171 Impression Sinus rhythm Low voltage, [...] with NSTEMI to outside hospital. Cath showed [id number] CAD. Transferred here for evaluation for possible CABG. Placed on nitro and heparin drips for symtpoms. Did have some fluctuating chest pressure overnight, nitro uptitrated with some relief. Sitting comfortably in chair as we talk. Plan for CABG. CT surgery has seen. Working on date. Continue heparin and nitro drips. * Shayna Dodd DO - 06/15/2025 6:22 AM EDT Images from the original note were not included. [facility] [place] [facility] CCU PROGRESS NOTE Patient Name: Richie Armas : 1950 Subjective: Richie Armas is a 75 y.o. female with PMH CKD 2, Raynaud's, anxiety/depression, IBS/constipation,GERD, fibromyalgia, hypothyroidism, chronic low back pain S/P lumbar spinal surgery that presented to [facility] on 06/14/2025 from outside facility ([facility]). Patient presented to [facility] for chestpain and reflux-like symptoms, found to have ST depression in the anterior lateral leads, with elevated trops, LHC found severe multivessel CAD (LAD 70%, subtotally occluded RCA, high-grade obtuse marginal vessel, EF 50%, anterolateral hypokinesis). Patient transferred to [facility] for CABG eval and loaded with ASA, [...] QT Interval 404 QTC Interval 440 P [place] 59 QRS [place] 100 T Wave [place] 0 NH Interval 160 Impression Sinus rhythm Probable left [...] with NSTEMI to outside hospital. Cath showed [id number] CAD. Transferred here for evaluation for possible CABG. Placed on nitro and heparin drips for symtpoms. Pt feeling well this morning, no further symptoms. CT surgery to see today to evaluate for possible CABG. documented in this [facility]08-01-2025 Miscellaneous Notes* Care Coordination - Federica Torres RN - 06/21/2025 8:00 AM EDT Care Management Progress Note Short Medical why still here: Telemetry, monitor for A-Fib, treat constipation and cont PT/OT. Planned Discharge Disposition: Home Health Services. PT/OT recommending home therapy. Discharge plan home with Spouse and [facility]. Barriers/Today we still Wait: Administering IV medications, Clinical stability Length of Stay (Days): 7 GMLOS: 1.7 * Care Coordination - Unknown Case Management - 06/19/2025 11:44 AM EDT Patient Choice Patient Name: RICHIE ARMAS Date of : 1950 All Providers Sent Referral Name: [facility] Phone: [phone] Address: [address] [place] [address] * Home Care - Benita Dixon RN - 06/19/2025 11:38 AM EDT Start PACC Note Home Health Referral Educated patient on Home Care and services available. Patient offered choice of available HHC and agreeable to SN/PT services with [facility]. Care Types: None Isolation Precautions: No active isolations Social Determinates of Health: Tobacco Use: Unknown (04/05/2020) Received from [facility] Patient History Smoking Tobacco Use: Never Smokeless [...] is noted as yes - consider a CORPORATE RISK ANALYST evaluation once the patient returns home. START PATIENT REGISTRATION INFORMATION Order Information Order Signing Physician: Anders Johnston, DO Service Ordered RN ?: Yes Service Ordered PT ?: Yes Service Ordered OT ?: No Service Ordered ST ?: No Service Ordered CORPORATE RISK ANALYST?:No Service Ordered STOPPERER ASSEMBLER?: No Following Physician: Anders Johnston DO Following Physician Overseeing Physician: Anders Johnston DO (Required for Residents only) Agreeable to Follow? Yes Date/Time of Call 06/19/25 11:38 AM, Spoke with: cts protocol Care Coordination Same Day SOC?: No Primary Care Physician: NARINDER CRUM Primary Care Physician Primary Care Physician Address: [address] [place] [address] [address] / [facility] [id number] Visit Instructions: N/A Service Discharge Location Type: Home with Home Care Service Facility Name: N/A Service Floor Facility: N/A Service Room No: N/A Demographics Patient Last Name: Pawel Patient First Name: Richie Language/Communication Barrier: no Service Address: [address] [place] [address] Service City: [place] Service ST: [place] Service ZIP: [address] Service (home) Other phone numbers: Telephone Information: Emergency Contact: Extended Emergency Contact Information Primary Emergency Contact: Tomasz Armas Mobile Relation: Spouse Secondary Emergency Contact: All Armas Mobile Relation: Daughter Preferred language: [employer] Employee needed? No Admission Information Admit Date: 06/14/2025 Patient status at discharge: Inpatient Admitting Diagnosis: Non-ST elevation (NSTEMI) myocardial infarction (HCC) [I21.4] NSTEMI (non-ST elevation myocardial infarction) (HCC) [I21.4] Caregiver Information Caregiver First Name: na Caregiver Last Name: na Caregiver Relationship to Patient na Caregiver Phone Number: na Caregiver Notes: N/A [employer] List HIGHTECH: Mobile Event Guide TECH - NEXT DAY REQUEST Requests Next [...] Diabetic: blood glucose testing as directed by PCP/Bullet Lubricant Mixer -For recent heart surgery if patient discharged on Coumadin verify need for INR draw on visit. Activity/Weight Bearing: -Up with assistance: up in chair for all meals, ambulate 3-4 times a day -Stretching exercises per PT discharge instructions Discharge Date: pending Referral Source-PACC: (Hospital/Unit): [facility] / T1/T1 A End PACC Note * Care Coordination - Federica Torres RN - 06/19/2025 8:20 AM EDT Care Management Progress Note Short Medical why still here: Telemetry, wean O2, IV Abx, Insulin gtt and PT/OT evaluation. Planned Discharge Disposition: Home Health Services pending progress and therapy recommendations. Barriers/Today we still Wait: Administering IV medications, Clinical stability Length of Stay (Days): 5 GMLOS: 1.7 * Op Note - Anders Johnston DO - 06/18/2025 11:54 AM EDT Cardiothoracic Surgery Operative Report DATE OF PROCEDURE: [...] harvest, left lower extremity 3. ANTONIO SURGEON: Anders Johnston DO MS CURATOR OF PHOTOGRAPHY AND PRINTS: Josy Chavarria COMPLICATIONS: None intra-op CONDITION: Stable DESCRIPTION OF PROCEDURE: The patient was prepped and draped in the appropriate manner, having undergone general endotrachealanesthetic in addition to [place] catheter placement, arterial line, and corado catheter [...] the CPB circuit. A purse string was placedaround the right atrial appendage and it was cannulated with a 29 multistage venous cannula. Prior to initiating CPB the conduits were prepared. After cannulation, the patient was placed on cardiopulmonary bypass support and drifted to ~34 degrees. Ascending aortic cross-clamp was applied. Antegrade and retrograde cardioplegia (microplegia) was delivered till the heart was arrested in diastole. Ca rdioplegia was re-administered every 10 to 20 minutes [...] minutes Intra-op ANTONIO: Low normal EF, 1+ Anders Johnston DO, MS, FACOS Cardiothoracic Surgery * Care Coordination - HOLLI Jeter CNP - 06/17/2025 4:34 PM EDT Images from the original note [...] heparin gtt and nitroglycerin gtt if needed. * Care Coordination - Federica Torres RN - 06/17/2025 11:05 AM EDT Care Management Progress Note Short Medical why still here: Plan for OR-CABG 06/19. Planned Discharge Disposition: Home Health Services, [facility] following for post-op needs. PT/OT evaluation pending post-op. 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 Barriers/Today we still Wait: Clinical stability, Administering IV medications, Procedure (comment)OR-CABG 06/19. Length of Stay (Days): 3 GMLOS: 1.7 * Care Coordination - HOLLI Jeter CNP - 06/16/2025 2:13 PM EDT Images from the original note [...] carotid ultrasounds, vein mapping. documented in this [facility]08-01-2025 Nurse Note* Tanja Matamoros RN - 06/21/2025 7:15 AM EDT Wound Care consulted for Pressure Injury Prevention. Pt's Wilmer= 19, pt is no longer at risk at this time. Skin Care Precaution order set in place. Dietitian consult in place. PT/OT consults in place. Will continue to follow peripherally. Please vocera or secure chat message with any questions. Tanja Matamoros RN documented in this [facility]07-30-2025 Consult note* Ángel Rivera - 06/19/2025 10:07 AM EDTAssociated Order(s): IP CONSULT TO CARDIAC REHAB Received referral and reviewed chart. Phase II Cardiopulmonary Rehab Referral discussed with Richie Armas. Patient prefers cardiopulmonary rehab at [facility]. She is familiar with that location and program and stated she didn't need the contact info. * Jennifer Al RD - 06/19/2025 9:27 AM EDTAssociated Order(s): IP CONSULT TO DIETITIAN Nutrition Assessment [...] intake in I/O flowsheet to monitor. Provided [employer] handout. Unable to [...] Total Energy Requirements (kcals/day): 22-25 kcal/kg = 1161-9183 kcal Weight Used for Protein Requirements: Current [...] lb 6.9 oz) Weight Source: Not Specified [place] Body Weight (lbs) (Calculated): 115 lbs [place] Body Weight (Kg) (Calculated): 52 kg % [place] Body Weight (Calculated): 122.1 % BMI (kg/m2) [...] soon to determine Jennifer Al RD Contact: [place] *[phone] * Magaly Danielson, 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 - [facility] - 06/19/2025 8:53 AM EDTAssociated Order(s): IP CONSULT TO ENDOCRINOLOGY Department of Internal Medicine Division of Endocrinology, Diabetes, & Metabolism Endocrinology Note Patient Name: Richie Armas : 1950 AGE: 75 y.o. Room[facility]: [facility] A Admission Date: 06/14/2025 Visit Date: 06/19/2025 Reason for Endocrine Consult: post heart Provider/Team Requesting Consult: cts PCP: NARINDER CRUM Outpt Bullet Lubricant Mixer: No ASSESSMENT: Stress hyperglycemia Steroid induced hyperglycemia [...] po daily per patient, managed by PCP, tsh2.71 BGL below Stable on insulin drip 0.5/hr-will plan to transition off She is awake alert extubated up in chair currently Vitals are stable on O2 nasal cannula Chest tubes are in place Discussed prediabetes Patient not on any diabetes medications Did confirm her hypothyroidism history on levothyroxine at home follows PCP for this last labs werenormal So far is only had water and [...] results, and Other Clinical Notes at the timeof today's encounter. Labs: No components found for: [...] CHOLHDLRATIO 4 06/15/2025 No results found for: [id number] Lab Results Component Value Date TSH 2.71 [...] dextrose, glucagon (rDNA), glucose, HYDROmorphone OR HYDROmorphone, ipratropium- albuterol, lactated ringers, magnesium hydroxide, magnesium sulfate OR [...] Savage MD at 06/19/2025 10:38 PM EDT * HOLLI Jeter [facility] - 06/18/2025 4:12 PM EDT Images from the original note were not included. [facility]: Critical Care Consultation Note Date: 06/18/25 PATIENT NAME: Richie Armas : 1950 (75 y.o.) Reason for Consult: Critical Care & Vent Management HPI: Richie Armas is a 75 year old female patient with PMHx that includes CKD2, Raynaud's, anxiety/depression, IBS/constipation, GERD, fibromyalgia, hypothyroidism, chronic low back pain S/P lumbar spinal surgery that presented to [facility] on 06/14/2025 from [facility]. Patient reports worsening chestpain associated with daily walks which started approximately 1 week ago. Initially she attributed this to her prior diagnosis of GERD but when she experienced pain 06/14 that did not resolve with restshe presented to [facility] ED. LHC at [facility] demonstrated severe multivessel disease and she was transferred to [facility] for CABG evaluation. Agreeable to CABG, went [...] CVP 13 13 SVR 1500 1092 PAP 25/15 30/08 Additional Interventions/Misc during Handoff Review of Systems [...] Comments: ETT/OG. Neck: Comments: Central line and [place]. Cardiovascular: Rate and Rhythm: Regular rhythm. Bradycardia [...] PM EDT I have personally performed a [id number] diagnostic evaluation on this patient on date of nalgqhl23/30/25. History, labs, imaging studies, and electronic medical record have been reviewed by me. This note documented by the []Critical Care Fellow []traffic warehouse supervisor [x]CRISTIANO reflects my history, exam, and medical decision making. I have reviewed and agree with the care plan. Changes were made in the orders as necessary. ROS documentation was reviewed and negative unless otherwise stated in HPI. Additional pertinent interval history, ROS, and physical exam findings: AdmitDate = 06/14/2025 LOS: 5 [facility] P/w worsening CP with exertion. Prior to presentation to OSH her CP was not resolving with rest. 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 Transferred to [facility] for CABG. Assessment: MVCAD s/p CABG x3 [...] other team members and physicians, excluding procedures. * Sofie Reyes - 06/17/2025 7:05 AM EDTAssociated Order(s): IP CONSULT TO CARDIAC REHAB Received referral and reviewed chart. Unable to discuss Phase II Cardiopulmonary Rehab Referral with Richie Armas at this time. Will follow to discuss program when appropriate. Patient will be contacted at home if discharged prior to discussion. * Anders Johnston DO - 06/15/2025 9:01 AM EDTAssociated Order(s): IP CONSULT TO CARDIOTHORACIC SURGERY Cardiac [...] was given an opportunity to ask questions andthese were answered at this time. At this [...] call with any additional questions or concerns. Anders Johnston DO, DO REVIEW OF SYSTEMS Full [...] Intake/Output Summary (Last 24 hours) at 06/15/2025 0901 Last data filed at 06/14/20252002 Gross per [...] reviewed Echocardiogram pending Imaging pending Labs: @ABGROUNDS@ @LASTLABOSUSHORT(WBC,HGB,PLATELET,PTT,INR,SODIUM,POTASSIUM,CHLORIDE,CO2,BUN,CREA TININE,CALCIUM,MAGNE SIUM,PHOSPHORUS,LACTATE,TRANSFERASEA,AST,GGT,GAMMAGT,ALKPHOS,BILITOTAL,BILIDIREC T,ALBUMIN,PREALBUMIN,HGBA1C)@ [1] No past medical history on file. [...] chloride, sodium chloride 0.9% documented in this [facility]07-29-2025 Note* Addendum Note - Naresh Motta CRNA - 06/18/2025 4:13 PM EDT Addendum created 06/18/25 1613 by Naresh Motta CRNA Intraprocedure Meds edited (Anesthesia) [id number] NoteAddendum created 06/18/25 1613 by Naresh Motta CRNA Intraprocedure Meds edited (Anesthesia)[facility]07-29-2025 Miscellaneous Notes* Addendum Note - Naresh Motta CRNA - 06/18/2025 4:13 PM EDT Addendum created 06/18/25 1613 by Naresh Motta CRNA Intraprocedure Meds edited (Anesthesia) * Anesthesia Discharge Note - Naresh Motta CRNA - 06/18/2025 4:12 PM EDT Patient: Richie Armas Procedure Summary Date: 06/18/25 Room / Location: [facility] Operating Room Anesthesia Start: 1154 Anesthesia Stop: 1605 Procedures: CORONARY ARTERY BYPASS GRAFT (Chest) ECHOCARDIOGRAM, TRANSESOPHAGEAL Diagnosis: NSTEMI (non-ST elevation myocardial infarction) ([facility]) Surgeons: Anders Johnston DO Responsible Provider: Naresh Lim MD [...] criteria has been met. documented in this [facility]07-29-2025 Note* Anesthesia Discharge Note - Naresh Motta CRNA - 06/18/2025 4:12 PM EDT Patient: Richie Armas Procedure Summary Date: 06/18/25 Room / Location: [address] Operating Room Anesthesia Start: 1154 Anesthesia Stop: 1605 Procedures: CORONARY ARTERY BYPASS GRAFT (Chest) ECHOCARDIOGRAM, TRANSESOPHAGEAL Diagnosis: NSTEMI (non-ST elevation myocardial infarction) ([facility]) Surgeons: Anders Johnston DO Responsible Provider: Naresh Lim MD [...] once all PACU criteria has been met. [id number] Anesthesiology Postoperative evaluation and management note* Anesthesia Postprocedure Evaluation - Naresh Motta CRNA - 06/18/2025 4:12 PM EDT Patient: Richie Armas Procedure Summary Date: 06/18/25 Room / Location: [facility] Operating Room Anesthesia Start: 1154 Anesthesia Stop: 1605 Procedures: CORONARY ARTERY BYPASS GRAFT (Chest) ECHOCARDIOGRAM, TRANSESOPHAGEAL Diagnosis: NSTEMI (non-ST elevation myocardial infarction) ([facility]) Surgeons: Anders Johnston DO Responsible Provider: Narehs Lim MD Anesthesia Type: general ASA Status: [...] a current smoker (e.g. cigarette, cigar, pipe, e- cigarette/vaping/marijuana) If no stop here (XX404) I completed my handoff to the receiving clinician during which we: 1. Identified the patient 2. Identified the responsible provider 3. Reviewed the pertinent medical history 4. Discussed the surgical course 5. Reviewed intra-op anesthesia management and issues during anesthesia 6. Set expectations for post-procedure period 7. Allowed opportunity for questions and acknowledgement of understanding. [id number] Surgical operation note* Anesthesia Postprocedure Evaluation - Naresh Motta CRNA - 06/18/2025 4:12 PM EDT Patient: Richie Armas Procedure Summary Date: 06/18/25 Room / Location: [facility] Operating Room Anesthesia Start: 1154 Anesthesia Stop: 1605 Procedures: CORONARY ARTERY BYPASS GRAFT (Chest) ECHOCARDIOGRAM, TRANSESOPHAGEAL Diagnosis: NSTEMI (non-ST elevation myocardial infarction) ([facility]) Surgeons: Anders Johnston DO Responsible Provider: Naresh Lim MD [...] a current smoker (e.g. cigarette, cigar, pipe, e- cigarette/vaping/marijuana) If no stop here (XX404) I completed my handoff to the receiving clinician during which we: 1. Identified the patient 2. Identified the responsible provider 3. Reviewed the pertinent medical history 4. Discussed the surgical course 5. Reviewed intra-op anesthesia management and issues during anesthesia 6. Set expectations for post-procedure period 7. Allowed opportunity for questions and acknowledgement of understanding. * Anesthesia Procedure Notes - Naresh Motta CRNA - 06/18/2025 12:42 PM EDT Associated Order(s): Central Venous Line Central Venous [...] Staffing Performed: anesthesiologist Anesthesiologist: Naresh Lim MD * Anesthesia Procedure Notes - Naresh oMtta CRNA - 06/18/2025 12:41 PM EDT Associated Order(s): Arterial Line Arterial Line: Date/Time: [...] well with no complications. Staffing Performed: SRNA * Anesthesia Procedure Notes - Naresh Motta CRNA - 06/18/2025 12:40 PM EDT Associated Order(s): Airway Airway Date/Time: 06/18/2025 12:06 PM Reason: scheduled Airway not difficult General Information and Staff Patient location during procedure: Procedural Resident/MERCHANDISE PRESENTATION ASSOCIATE: Naresh Motta CRNA Performed: MERCHANDISE PRESENTATION ASSOCIATE Patient Condition Indications for airway management: airway protection and anesthesia Patient position: sniffing MILS maintained throughout Sedation level: Asleep Final Airway Details Preoxygenated: yes Final airway type: endotracheal airway Successful airway: ETT Cuffed: yes Successful intubation technique: direct laryngoscopy Adjuncts used in placement: intubating stylet and anterior pressure/BURP Endotracheal tube insertion site: oral Blade: Cortes Blade size: #3 ETT size (mm): 7.0 Cormack-Lehane Classification: grade IIb - view of arytenoids or posterior of glottis only Placement verified by: capnometry Measured from: lips ETT to lips (cm): 21 Number of attempts at approach: 1 * Anesthesia Preprocedure Evaluation - Naresh Lim MD - 06/18/2025 11:41 AM EDT Patient: Richie Armas Procedure Information Date/Time: 06/18/25 1145 Procedures: CORONARY ARTERY BYPASS GRAFT (Chest) ECHOCARDIOGRAM, TRANSESOPHAGEAL Location: [facility] OR Operating Room Surgeons: Anders Johnston DO Relevant Problems Cardio (+) NSTEMI [...] family history on file. documented in this [facility]07-29-2025 Procedure anesthesia Narrative* Procedure Summary Procedure Name Responsible Anesthesiologist Anesthesia Start Time [...] mg in sodium chloride 250 mL infusion (Scp-Zsshaz-Esqmk) 0.15 mg ceFAZolin (Ancef) vial 1 g [...] Orientation: Right; Location: Antecubital 06/14/25 1200 by Thelma Mata RN Wound/Incision 06/18/25; Incision; Sternum 06/18/25 [...] RN ETT Placement Date: 06/18/25; Placement Time: 1206 (created via procedure documentation); Type: ETT - single; Single Lumen Tube Size: 7 mm; Cuffed: Yes; Location: Oral; Placement Verification: Capnometry; Airway Comments: Transition to NIV 10/26 per MD order; Removal Date: 06/18/25; Removal Time: 224606/18/25 120 by Naresh Motta CRNA 06/18/25 2247 by Kale Yates RRT documented in this encounter [id number] Anesthesiology procedure note* Anesthesia Procedure Notes - [...] Staffing Performed: anesthesiologist Anesthesiologist: Naresh Lim MD [facility]07-29-2025 [facility]07-29-2025 Anesthesiology procedure note* Anesthesia Procedure Notes - [...] well with no complications. Staffing Performed: SRNA [place] [address]83-29-2025 [facility]07-29-2025 Anesthesiology procedure note* Anesthesia Procedure Notes - Naresh Motta CRNA - 06/18/2025 12:40 PM EDTAssociated Order(s): Airway Airway Date/Time: 06/18/2025 12:06 PM Reason: scheduled Airway not difficult General Information and Staff Patient location during procedure: Procedural Resident/MERCHANDISE PRESENTATION ASSOCIATE: Naresh Motta CRNA Performed: MERCHANDISE PRESENTATION ASSOCIATE Patient Condition Indications for airway management: airway protection and anesthesia Patient position: sniffing MILS maintained throughout Sedation level: Asleep Final Airway Details Preoxygenated: yes Final airway type: endotracheal airway Successful airway: ETT Cuffed: yes Successful intubation technique: direct laryngoscopy Adjuncts used in placement: intubating stylet and anterior pressure/BURP Endotracheal tube insertion site: oral Blade: Cortes Blade size: #3 ETT size (mm): 7.0 Cormack-Lehane Classification: grade IIb - view of arytenoids or posterior of glottis only Placement verified by: capnometry Measured from: lips ETT to lips (cm): 21 Number of attempts at approach: 1 [facility]50 [facility]07-29-2025 Anesthesiology Preoperative evaluation and management note* Anesthesia Preprocedure Evaluation - Naresh Lim MD - 06/18/2025 11:41 AM EDT Patient: Richie Armas Procedure Information Date/Time: 06/18/25 1145 Procedures: CORONARY ARTERY BYPASS GRAFT (Chest) ECHOCARDIOGRAM, TRANSESOPHAGEAL Location: [facility] OR [address] [place] [address] Operating Room Surgeons: Anders Johnston DO Relevant Problems Cardio (+) NSTEMI [...] Requests [1] No family history on file. [facility] [employer] Work Phone: 1(814) 864-757107-25-2025 [facility]07-25-2025 History and physical note* Thierno Hopkins, DO - 06/14/2025 5:07 PM EDT Images from the original note were not included. [facility] [place] [facility] CCU HISTORY & PHYSICAL Patient Name: Richie Armas : 1950 Date of Admission: 06/14/2025 4:44 PM Established air traffic systems technician: CHRISTOPHER Subjective: Chief Complaint: Chest pain, reflux sensation History of Present Illness: Richie Armas is a 75 y.o. female with PMH CKD 2, Raynaud's, anxiety/depression, IBS/constipation,GERD, fibromyalgia, hypothyroidism, chronic low back pain S/P lumbar spinal surgery that presented to [facility] on 06/14/2025 from outside facility ([facility]). Patient reports worsening chest pain as sociated [...] not resolve with rest she presented to [place] ED. LHC at [facility] demonstrated severe multivessel disease and she was transferred to [facility] for CABG evaluation. In [facility] HLU, hemodynamically stable. BP 150/100, HR 68, [...] V2-V5 - Loaded with heparin, ASA in [place] ED, did NOT receive P2Y12i - Emergent LHC (06/14/25): severe multivessel CAD (LAD 70%, subtotally occluded RCA, high-grade obtuse marginal vessel, EF 50%, anterolateral hypokinesis), transferred to [facility] for CABG Eval - Start daily ASA [...] with NSTEMI to outside hospital. Cath showed jynevtt5w CAD. Transferred here for evaluation for possible CABG. Placed on nitro and heparin drips for symtpoms. Pt feeling well this morning, no further symptoms. CT surgery to see today to evaluate for possible CABG. documented in this [facility]07-25-2025 [facility] Medical Records Department [address] [place] [address] Discharge Summary 06/14/25 1535 MR#: [id number] Acct: [id number] Name: RICHIE ARMAS Rep #: [id number] : 1950 75 From: Thelma Hamm DO PCP: Dr. Narinder Crum MD Status:DIS IN Location: ICU ICU03-1 Providers Date of Admission: 06/13/25 Date of Discharge: 06/14/25 Primary Care Physician: Dr. Narinder Crum MD Consultations 06/13/25 20:35 Consult: Cardiology [...] was seen in the emergency room at [facility] with complaints of chest discomfort that she described as pressure, this appeared to be initiated by activity. Workup in the emergency room included lab which revealed 93 troponin, patient's chest x- ray was unremarkable, patient's EKG did not show any ischemic changes. Patient was admitted to [facility] ICU, placed on a heparin [...] care on 06/14/2025 (patient was transferred to [facility] in [facility]) Weight / BMI Weight Weight: 63 [...] % (Auto) 53.7, Lymph % (Auto) 36.0, Ross % (Auto) 8.9, Eos % (Auto) 0.6, [...] MPV 10.4, Immature Gran (more content not included)...[facility]07-25-2025 Consult note Author Edil Hong [facility] Note Date/Time June 14, 2025 12:3 7pm [facility] Medical Records Department [address] [place] [address] Consultation - Cardiology 06/14/25 0741 MR#: [id number] Acct: [id number] Name: RICHIE ARMAS Rep #:[id number] : 1950 75 From: Edil Hong MD PCP: Dr. Narinder Crum MD Status:ADM IN Location: ICU ICU03-1 [...] for cardiology consultation. She is currently pain-free. [facility] Medical History Chronic idiopathic constipation CKD (chronic [...] (From Phenergan) AdvReac Other Verified 06/13/25 17:31 Wiehtte-CGM-GcD Reductase AdvReac Pain in Verified 06/13/25 17:31 [...] % (Auto) 53.7, Lymph % (Auto) 36.0, Ross % (Auto) 8.9, Eos % (Auto) 0.6, [...] % (Auto) 55.8, Lymph % (Auto) 34.0, Ross % (Auto) 9.0, Eos % (Auto) 0.5, [...] (Auto) 44.3 L, Lymph % (Auto) 45.0 H,Ross % (Auto) 8.7, Eos % (Auto) 0.9, [...] Neut % (Auto) 53.7,Lymph % (Auto) 36.0, Ross % (Auto) 8.9, Eos % (Auto) 0.6, [...] % (Auto) 55.8, Lymph % (Auto) 34.0, Ross % (Auto) 9.0, Eos % (Auto) 0.5, Baso % (Auto) 0.5, Absolute Neuts (auto) 3.2, Nucleated RBC % 0 06/14/25 01:06: WBC 5.4, RBC 3.80 L, Hgb 12.1, Hct 36.1 L, MCV 95.0, MCH 31.8, MCHC 33.5, Plt Count 220, MPV 10.5, Immature Gran % (Auto) 0.400, Neut % (Auto) 44.3 L, Lymph % (Auto) 45.0 H, Ross % (Auto) 8.7, Eos % (Auto) 0.9, Baso % (Auto) 0.7, Absolute Neuts (auto) 2.4, Nucleated RBC % 0, APTT 111.8 H*, Sodium 137, Potassium 3.9, Chloride 103, Carbon Dioxide 23.9, Anion Gap 11, BUN 19, Creatinine 0.56 L, Est GFR (MDRD) Non-Af 96, BUN/Creatinine Ratio 34.4 H, Xabheqm61, Calcium 8.4, Total Bilirubin 0.24, Triglycerides 89, Cholesterol 280 H, VLDLCholesterol 18, HDL Cholesterol 96, Cholesterol/HDL Ratio 2.92 Rhythm: EKG: ECHO: Stress Test: Cardiac Cath: PCI: CT Surgery: Holter monitor: EPS: PPM: CXR: Chest CT Scan: Radiography Diagnostic Testing: Radiology Impression Chest X-Ray 06/13/25 17:48 IMPRESSION: No focal consolidations. Reading Location: [id number] 06/14/25 1237 <Electronically signed by Edil Hong MD> Cosigner Signature (if applicable): CC: Dr. Narinder Crum MD~ Signed [facility] Work Phone: 1(604) 481-797107-25-2025 Hospital Discharge instructionsAdditional Instructions [facility]: [facility] Phone: 1(722) 705-925507-25-2025 Consult note [facility] Medical Records Department [address] [place] [address] Consultation - Cardiology 06/14/25 0741 MR#: [id number] Acct: [id number] Name: RICHIE ARMAS Rep #:[id number] : 1950 75 From: Edil Hong MD PCP: Dr. Narinder Crum MD Status:ADM IN Location: ICU ICU03-1 [...] [facility] Consult Data Date [...] for cardiology consultation. She is currently pain-free. [facility] Medical History Chronic idiopathic constipation CKD (chronic [...] (From Phenergan) AdvReac Other Verified 06/13/25 17:31 Tdsejck-BUJ-DxJ Reductase AdvReac Pain in Verified 06/13/25 17:31 [...] % (Auto) 53.7, Lymph % (Auto) 36.0, Ross % (Auto) 8.9, Eos % (Auto) 0.6, [...] % (Auto) 55.8, Lymph % (Auto) 34.0, Ross % (Auto) 9.0, Eos % (Auto) 0.5, [...] (Auto) 44.3 L, Lymph % (Auto) 45.0 H,Ross % (Auto) 8.7, Eos % (Auto) 0.9, [...] Neut % (Auto) 53.7,Lymph % (Auto) 36.0, Ross % (Auto) 8.9,Eos % (Auto) 0.6, Baso [...] % (Auto) 55.8, Lymph % (Auto) 34.0, Ross % (Auto) 9.0, Eos % (Auto) 0.5, Baso % (Auto) 0.5, Absolute Neuts (auto) 3.2, Nucleated RBC % 0 06/14/25 01:06: WBC 5.4, RBC 3.80 L, Hgb 12.1, Hct 36.1 L, MCV 95.0, MCH 31.8, MCHC 33.5, Plt Isvro492, MPV 10.5, Immature Gran % (Auto) 0.400, Neut % (Auto) 44.3 L, Lymph % (Auto) 45.0 H, Ross % (Auto) 8.7, Eos % (Auto) 0.9, Baso % (Auto) 0.7, Absolute Neuts (auto) 2.4, Nucleated RBC % 0, APTT 111.8 H*, Sodium 137, Potassium 3.9, Chloride 103, Carbon Dioxide 23.9, Anion Gap 11, BUN 19, Creatinine 0.56 L, Est GFR (MDRD) Non-Af 96, BUN/Creatinine Ratio 34.4 H, Axsflhv19, Calcium 8.4, Total Bilirubin 0.24, Triglycerides 89, Cholesterol 280 H, VLDLCholesterol 18, HDL Cholesterol 96, Cholesterol/HDL Ratio 2.92 Rhythm: EKG: ECHO: Stress Test: Cardiac Cath: PCI: CT Surgery: Holter monitor: EPS: PPM: CXR: Chest CT Scan: Radiography Diagnostic Testing: Radiology Impression Chest X-Ray 06/13/25 17:48 IMPRESSION: No focal consolidations. Reading Location: [id number]-[id number] 06/14/25 1237 Cosigner Signature (if applicable): CC: Dr. Narinder Crum MD~ Signed [facility]07-24-2025 Discharge summary Author Efren Moss [facility] Note Date/Time June 13, 2025 8:21 pm [facility] Medical Records Department [address] [place] [address] Emergency Department Summary 06/13/25 MR#: [id number] Acct: [id number] Name: RICHIE ARMAS Rep #:[id number] : 1950 75 From: Efren Moss MD PCP: Dr. Narinder Crum MD Status:ADM IN Location: ICU ICU03-1 [...] Negative for Marfan's Syndrome or Family History PFS PFS Medical History (Updated 06/13/25 @ 19:48 by [...] (From Phenergan) AdvReac Other Verified 06/13/25 17:31 Ifsnvxj-ROK-QwR Reductase AdvReac Pain in Verified 06/13/25 17:31 [...] % (Auto) 53.7 Lymph % (Auto) 36.0 Ross % (Auto) 8.9 Eos % (Auto) 0.6 [...] 17:48 IMPRESSION: No focal consolidations. Reading Location: [facility] EKG Initial EKG: Attestation: I personally reviewed and interpreted this EKG as follows: Interpretation: Sinus Rhythm (Rate is 77. NH interval is under 60 ms cures duration 88 ms. QT duration 190 ms. [place] is normal. There is nonspecific changes noted and these are new since December 20, 2023) Management Discussion w/another healthcare provider: Hospitalist (Will speak with the nightphysician Dr. Hui Morel for admission for acute coronary syndrome/non- STEMI. Patient was admitted ICU since she is on nitro and heparin drip.) and Environmental Protection Economist(Spoke with air traffic systems technician. Documentations in the MDM portion of the EMR.) Treatment and Re-Evaluation :: I was informed patient had no improvement with 3 sublingual nitro. Will treat her pressure with IV morphine. Critical Care Time Critical Care Time: Yes Critical care time (excluding procedures): 30-74 minutes (32), Including time spent: (History, physical, documentation, independent to potation of laboratory results and chest x-ray), Discussing w/Patient &/or Family/Transmission Rebuilder, Discussing w/Consultants (Cardiology and hospitalist), Arranging Admission or Transfer and - (Case management for arrangements to help drive home since he has dementia.) Discharge Plan Dx/Rx/DC Orders Clinical Impression: ACS (acute coronary syndrome), Elevated troponin, Exertional angina, Hypercholesterolemia Disposition Disposition: Acute Care Hospital [facility] Discharge Date/Time: 06/13/25 20:11 What to do if you have Problems For any increased pain, shortness of breath, bleeding, nausea or vomiting, chestpain, or any unexpected problems, contact your Primary Care Provider. Call [employer] [facility] ([phone]) or report to the closest Emergency Room. Call 911 if necessary. 06/13/252020 <Electronically signed by Efren Moss MD> Cosigner Signature (if applicable): CC: Dr. Narinder Crum MD ~ Signed [facility] Work Phone: 1(367) 774-942907-24-2025 History and physical note Author Hui Morel [facility] Note Date/Time June 13, 2025 7:50 pm [facility] Medical Records Department [address] [place] [address] H&P Exam - Hospitalist 06/13/251914 MR#: [id number] Acct: [id number] Name: RICHIE ARMAS Rep #:[id number] : 1950 75 From: Hui Morel MD PCP: Dr. Narinder Crum MD Status:ADM IN Location: ICU ICU03-1 HPI - General General Date of Admission: 06/13/25 Date of Service: 06/13/25 Chief Complaint: Chest pain HPI Narrative The patient is a 75 y/o F w/ PMHx: Raynaud disease, HTN, HLD, Hypothyroidism, Fibromyalgia, Chronic idiopathic constipation who presents to the [facility] ED on 06/13/25 with exertional chest [...] noted prior. ED physician discussed case with Tennis Racket Repairer. Inthe ED patient ministered full-strength aspirin therapy, heparin bolus and drip in addition to sublingual nitroglycerin eventually transition to a nitroglycerindrip as well as morphine 4 mg IV x 1. [facility] Medical History (Updated 06/13/25 @ 19:48 by [...] (From Phenergan) AdvReac Other Verified 06/13/25 17:31 Jhpxmzr-QLR-PvY Reductase AdvReac Pain in Verified 06/13/25 17:31 [...] % (Auto) 53.7, Lymph % (Auto) 36.0, Ross % (Auto) 8.9, Eos % (Auto) 0.6, [...] 17:48 IMPRESSION: No focal consolidations. Reading Location: VLT-LSCDYU-FY Assessment & Plan Assessment/Plan (1) NSTEMI, initial episode of care: PLAN: Plan The patient is a 75 y/o F w/ PMHx: Raynaud disease, HTN, HLD, Hypothyroidism, Fibromyalgia, Chronic idiopathic constipation who presents to the [facility] ED on 06/13/25 with exertional chest [...] 16 minutes. Charges/Coding Visit Charges Inpatient E&M: 85663 Init Hosp L3 Procedures Hospitalists Procedures: 36075 Advncd Care Plan 30 Min 06/13/251949 <Electronically signed by Hui Morel MD> Cosigner Signature (if applicable): CC: Dr. Hui Morel MD; Dr. Narinder Curm MD~ Signed [facility] Work Phone: 1(627) 552-881007-24-2025 Evaluation note* Diagnosis Onset Date Resolution Status Admit Date ACS (acute coronary syndrome) acute June 13, 2025 7:16pm Elevated troponin acute June 132024 7:16pm Exertional angina acute June 132024 7:16pm Hypercholesterolemia acute June 13, 2025 7:16pm NSTEMI, initial episode of care acut e June 13, 2025 7:16pm [facility] Work Phone: 1(190) 557-329907-24-2025 Evaluation note* Diagnosis Onset Date Resolution Status Admit Date ACS (acute coronary syndrome) inacti ve June 13, 2025 7:16pm Elevated troponin inactive June 132024 7:16pm Exertional angina inactive June 132024 7:16pm Hypercholesterolemia inactive June 13, 2025 7:16pm NSTEMI, initial episode of care inac tive June 13, 2025 7:16pm [facility] Work Phone: 1(482) 730-210007-24-2025 Discharge summary [facility] Medical Records Department [address] [place] [address] Emergency Department Summary 06/13/25 MR#: [id number] Acct: [id number] Name: RICHIE ARMAS Rep #:[id number] : 1950 75 From: Efren Moss MD PCP: Dr. Narinder Crum MD Status:ADM IN Location: ICU ICU03-1 [...] Negative for Marfan's Syndrome or Family History [facility] Medical History (Updated 06/13/25 @ 19:48 by [...] (From Phenergan) AdvReac Other Verified 06/13/25 17:31 Zedsiqr-RTV-YaJ Reductase AdvReac Pain in Verified 06/13/25 17:31 Inhibitor joints Family History (Updated 06/13/25 @ 19:[address] Hui Morel MD) Father Heart disease CAD (coronary artery disease) Hypertension Myocardial infarction HLD (hyperlipidemia) Mother Hypertension Surgical History Previous back surgery H/O wrist surgery History of ankle surgery H/O shoulder surgery Social History (Updated 06/13/25 @ 19:[address] Hui oMrel MD) household members: spouse Smoking Status: Never [...] % (Auto) 53.7 Lymph % (Auto) 36.0 Ross % (Auto) 8.9 Eos % (Auto) 0.6 [...] 17:48 IMPRESSION: No focal consolidations. Reading Location: [facility] EKG Initial EKG: Attestation: I personally reviewed and interpreted this EKG as follows: Interpretation: Sinus Rhythm (Rate is 77. NH interval is under 60 ms cures duration 88 ms. QT duration 190 ms. [place] is normal. There is nonspecific changes noted and these are new since December 20, 2023) Management Discussion w/another healthcare provider: Hospitalist (Will speak with the nightphysician Dr. Hui Morel for admission for acute coronary syndrome/non- STEMI. Patient was admitted ICU since she is on nitro and heparin drip.) and Environmental Protection Economist(Spoke with air traffic systems technician. Documentations in the MDM portionof the EMR.) Treatment and Re-Evaluation :: I was informed patient had no improvement with 3 sublingual nitro. Will treat her pressure with IV morphine. Critical Care Time Critical Care Time: Yes Critical care time (excluding procedures): 30-74 minutes (32), Including time spent: (History, physical, documentation, independent to potation of laboratory results and chest x-ray), Discussing w/Patient &/or Family/Transmission Rebuilder, Discussing w/Consultants (Cardiology and hospitalist), Arranging Admission or Transfer and - (Case management for arrangements to help drive home since he hasdementia.) Discharge Plan Dx/Rx/DC Orders Clinical Impression: ACS (acute coronary syndrome), Elevated troponin, Exertional angina, Hypercholesterolemia Disposition Disposition: Acute Care Hospital [facility] Discharge Date/Time: 06/13/25 20:11 What to do if you have Problems For any increased pain, shortness of breath, bleeding, nausea or vomiting, chestpain, or any unexpected problems, contact your Primary Care Provider. Call [facility] ([phone]) or report tothe closest Emergency Room. Call 911 if necessary. 06/13/252020 Cosigner Signature (if applicable): CC: Dr. Narinder Crum MD ~ Signed [facility]07-24-2025 History and physical note [facility] Medical Records Department [address] [place] [address] H&P Exam - Hospitalist 06/13/251914 MR#: [id number] Acct: [id number] Name: RICHIE ARMAS Rep #:[id number] : 1950 75 From: Hui Morel MD PCP: Dr. Narinder Crum MD Status:ADM IN Location: ICU ICU03-1 HPI - General General Date of Admission: 06/13/25 Date of Service: 06/13/25 Chief Complaint: Chest pain HPI Narrative The patient is a 75 y/o F w/ PMHx: Raynaud disease, HTN, HLD, Hypothyroidism, Fibromyalgia, Chronicidiopathic constipation who presents to the [facility] ED on 06/13/25 with exertional chest [...] noted prior. ED physician discussed case with Tennis Racket Repairer. Inthe ED patient ministered full-strength aspirin therapy, heparin bolus and drip in addition to sublingual nitroglycerin eventually transition to a nitroglycerindrip as well as morphine 4 mg IV x 1. [facility] (Updated 06/13/25 @ 19:48 by [...] (From Phenergan) AdvReac Other Verified 06/13/25 17:31 Ulfmqkc-UVS-JeG Reductase AdvReac Pain in Verified 06/13/25 17:31 [...] % (Auto) 53.7, Lymph % (Auto) 36.0, Ross % (Auto) 8.9, Eos % (Auto) 0.6, [...] 17:48 IMPRESSION: No focal consolidations. Reading Location: [facility] Assessment & Plan Assessment/Plan (1) NSTEMI, initial episode of care: PLAN: Plan The patient is a 75 y/o F w/ PMHx: Raynaud disease, HTN, HLD, Hypothyroidism, Fibromyalgia, Chronicidiopathic constipation who presents to the [facility] ED on 06/13/25 with exertional chest [...] 16 minutes. Charges/Coding Visit Charges Inpatient E&M: 57524 Init Hosp L3 Procedures Hospitalists Procedures: 90647 Advncd Care Plan 30 Min 06/13/251949 Cosigner Signature (if applicable): CC: Dr. Hui Morel MD; Dr. Narinder Crum MD~ Signed [facility]07-24-2025 Radiology Diagnostic study note [facility] Imaging Services [address] [place] [address] Chest 1 View (Portable) MR#: [id number] Acct: [id number] Name: RICHIE ARMAS Rep #: [id number] : 1950 F 75 From: Pastora Dacosta MD PCP: Dr. Narinder Crum MD Status: REG ER Study:Chest 1 View (Portable) Date of Exam: 06/13/25 Exam# [id number] Ordering Dr: Margaret Moss MD PROCEDURE: CHEST 1 VIEW (PORTABLE) 06/13/2025 REASON FOR EXAM: CHEST PAIN TECHNIQUE: Frontal view of the chest. COMPARISON: 12/20/2023 FINDINGS: No focal consolidation. No pleural effusion or pneumothorax. Cardiac silhouette is within normal limits. Calcified aortic arch. Calcific tendinopathy of the right shoulder. RAD/Chest 1 View (Portable) IMPRESSION: No focal consolidations. Reading Location: [facility] CC: Dr. Narinder Crum MD; Dr. Efren Moss MD ~ [employer] Boring Machine Operator: Signed [facility]04-25-2025 Radiology Diagnostic study note [facility] Imaging Services [address] [place] [address] [employer] Decub and/or Erect MR#: [id number] Acct: [id number] Name: RICHIE ARMAS Rep #: [id number] : 1950 F 74 From: Tatiana Al MD PCP: Dr. Narinder Crum MD Status: REG CLI Study:Abd Inc Decub and/or Erect Date of Exam : 03/15/25 Exam# [id number] Ordering Dr: KRYSTEN MARIE EXAM: XR Abdomen, [...] the colon consistent with constipation. Reading Location: [facility] CC: KRYSTEN MARIE; Dr. Narinder Crum MD ~ [employer] Boring Machine Operator: Signed [facility]03-07-2025 Evaluation note* Diagnosis Onset Date Resolution Status Admit Date Cervical radiculopathy acute [facility] 2024 1:04pm Degenerative disc disease, cervical acute January 25, 2025 1:04pm [facility] Work Phone: [phone]) 876-437208-10-2023 Discharge summary Author Greg Chahal [facility] June 30, 2023 1:07pm Note Date/Time June 30, 2023 1: 07pm [facility] Physical Therapy [facility] [address] [place] [address]. [address] [place] [address] / REHABILITATION SERVICES DISCHARGE SUMMARY MR#: [id number] Acct: [id number] Name: RICHIE ARMAS Rep #: [id number] : 1950 73 From: Greg Chahal PT, ATC Referring Dr.: FRANDY Sexton Status: REG RCR Insurance: MEDICARE PART A B [facility] Discharge Summary D/C summary: It has been [...] please feel free to call me at [phone]. Thank you for the referral of thispatient. Sincerely, Greg Chahal, PT, ATC Balance/Gait/Functional tests Balance/Special Test Scores Lower Extremity Functional Score: 61 <Electronically signed by Greg Chahal PT, ATC> 06/30/23 1307 CC: FRANDY Sexton; Dr. Narinder Crum MD ~ [facility] Signed [facility] Work Phone: Evaluation + Plan note No data available for this section [facility] Evaluation noteNo assessment information available [facility] Work Phone: evaluation note* Diagnosis Onset Date Resolution Status Oral thrush acute [facility] Work Phone: evaluation note* Diagnosis Onset Date Resolution Status Admit Date ACS (acute coronary syndrome) acute June 13, 2025 7:16pm Elevated troponin acute June 132024 7:16pm Exertional angina acute June 132024 7:16pm Hypercholesterolemia acute June 13, 2025 7:16pm NSTEMI, initial episode of care acut e June 13, 2025 7:16pm [facility] Work Phone: evaluation note* Diagnosis NSTEMI (non-ST elevation myocardial infarction) ([facility])- Primary Acute myocardial infarction, subendocardial infarction, episode of care unspecified NSTEMI (non-ST elevation myocardial infarction) ([facility]) Acute myocardial infarction, subendocardial infarction, episode of care unspecified Other disorders of arteries, arterioles and capillaries in diseases classified elsewhere ([facility]) Cardiac pain Coronary artery disease due [...] edema Edema Acute stroke due to ischemia ([facility]) Stroke, recent, without late effect documented in this [facility] Author Hui Morel [facility] Note Date/Time June 13, 2025 7:50 pm [facility] Medical Records Department [address] [place] [address] H&P Exam - Hospitalist 06/13/251914 MR#: [id number] Acct: [id number] Name: RICHIE ARMAS Rep #:[id number] : 1950 75 From: Hui Morel MD PCP: Dr. Narinder Crum MD Status:ADM IN Location: ICU ICU03-1 HPI - General General Date of Admission: 06/13/25 Date of Service: 06/13/25 Chief Complaint: Chest pain HPI Narrative The patient is a 75 y/o F w/ PMHx: Raynaud disease, HTN, HLD, Hypothyroidism, Fibromyalgia, Chronic idiopathic constipation who presents to the [facility] ED on 06/13/25 with exertional chest [...] noted prior. ED physician discussed case with Tennis Racket Repairer. Inthe ED patient ministered full-strength aspirin therapy, heparin bolus and drip in addition to sublingual nitroglycerin eventually transition to a nitroglycerindrip as well as morphine 4 mg IV x 1. [facility] Medical History (Updated 06/13/25 @ 19:48 by [...] (From Phenergan) AdvReac Other Verified 06/13/25 17:31 Jirtqff-RZC-CwW Reductase AdvReac Pain in Verified 06/13/25 17:31 [...] % (Auto) 53.7, Lymph % (Auto) 36.0, Ross % (Auto) 8.9, Eos % (Auto) 0.6, [...] 17:48 IMPRESSION: No focal consolidations. Reading Location: [id number] Assessment & Plan Assessment/Plan (1) NSTEMI, initial episode of care: PLAN: Plan The patient is a 75 y/o F w/ PMHx: Raynaud disease, HTN, HLD, Hypothyroidism, Fibromyalgia, Chronic idiopathic constipation who presents to the [facility] ED on 06/13/25 with exertional chest [...] 16 minutes. Charges/Coding Visit Charges Inpatient E&M: 67688 Init Hosp L3 Procedures Hospitalists Procedures: 16822 Advncd Care Plan 30 Min 06/13/251949 <Electronically signed by Hui Morel MD> Cosigner Signature (if applicable): CC: Dr. Hui Morel MD; Dr. Narinder Crum MD~ Signed [facility] Work Phone: [facility] Work Phone: Hospital Discharge instructions Additional Instructions Please ensure that you drink plenty of fluids. Return for any worsening symptoms.[facility] Work Phone: Hospital Discharge instructionsAdditional Instructions Your labs, urine, chest x-ray all appear normal. I think you are a week from your recent bypass surgery and it will take a while to recover. Follow-up with your surgeons office and do cardiac rehab like they recommend. Rest, drink plenty of fluids and eat regularly. [facility] Work Phone: Hospital Discharge instructions No data available for this section [facility] Reason for referral (narrative)No reason for referral information availableWTriHealth [facility] Work Phone: Reason for visit Narrative* Auth/Cert (Routine) Specialty Diagnoses / Procedures Referred By Contac t Referred To Contact Diagnoses Non-ST elevation (NSTEMI) myocardial infarction (HCC) NSTEMI (non-ST elevation myocardial infarction) (HCC) NSTEMI Procedures . Selvin Lynch MD [address] [place] [phone] Phone: tel: fax: [facility] Cardiac Thoracic Vascular Intensive Care Unit CTV ICU T[address] [place] [phone] Phone: tel: Referral ID Status Reason Start Date Expiration Date Visits Re quested Visits Authorized [facility] Chief Complaint and Reason for Visit [...] pm NSTEMI June 14, 2025 7:41 am Chief Complaint Admit Date ABDOMINAL PAIN/ STOOL SAMPLE March 15, 2025 2:56pm NSTEMI June 13, 2025 7:16 pm NSTEMI June 14, 2025 7:41 am NSTEMI June 14, 2025 3:35 pm abnormal labs June 28, 2025 3:4 4pm Advance Directives No Advanced Directives Records Found Date Activated Date Inactivated Comments 06/24/2025 2:03 PM 06/27/2025 4:52 PM Date Activated Date Inactivated Comments 06/14/2025 4:52 PM 06/22/2025 2:47 PM Healthcare Agents on File Name Relationship Healthcare Agent Relationshi p Communication Salvador Acevedo Son First Alternate Health Care Agent Tomasz Armas Spouse Second Alternate Health Care Agent Advance Directive Response Recorded Date/ Time Living Will No December 09 2:26pm Power of Application Support Analyst No December 09, 2021 2:26pm Advance Directive Response Recorded Date/ Time Living Will No September 05 7:18am Power of Application Support Analyst No September 05, 2022 7:18am Advance Directive Response Recorded Date/ Time Name of Medical Power of Application Support Analyst TOMASZ ARMAS December 20, 2023 2:43pm Living Will Yes December 20 2:43pm Power of Application Support Analyst Yes December 20, 2023 2:43pm Advance Directive Response Recorded Date/ Time Living Will Yes December 20 3:43pm Power of Application Support Analyst Yes December 20, 2023 3:43pm Name of Medical Power of Application Support Analyst TOMASZ ARMAS December 20, 2023 3:43pm Advance Directive Response Recorded Date/ Time Living Will Yes December 20 3:43pm Do you have a Healthcare Power of Application Support Analyst? Yes December 20, 2023 3:43pm Advance Directive Response Recorded Date/ Time Do you have a Healthcare Power of Application Support Analyst? No June 13, 2025 5:43pm Advance Directive Response Recorded Date/ Time Do you have a Healthcare Power of Application Support Analyst? No June 13, 2025 8:45pm Date Activated Date Inactivated Comments 06/14/2025 4:52 PM Healthcare Agents on File Name Relationship Healthcare Agent Relationshi p Communication Salvador Acevedo Son First Alternate Health Care Agent Tomasz Armas Spouse Second Alternate Health Care Agent Date Activated Date Inactivated Comments 06/14/2025 4:52 PM 06/22/2025 2:47 PM Healthcare Agents on File Name Relationship Healthcare Agent Relationshi p Communication Salvador Acevedo Son First Alternate Health Care Agent Tomasz Armas Spouse Second Alternate Health Care Agent Date Activated Date Inactivated Comments 06/14/2025 4:52 PM 06/22/2025 2:47 PM Healthcare Agents on File Name Relationship Healthcare Agent Relationshi p Communication Salvador Jacobson First Alternate Health Care Agent Tomasz Armas Spouse Second Alternate Health Care Agent Date Activated Date Inactivated Comments 06/24/2025 2:03 PM Healthcare Agents on File Name Relationship Healthcare Agent Relationshi p Communication Salvador Acevedo Son First Alternate Health Care Agent Tomasz Armas Spouse Second Alternate Health Care Agent Advance Directive Response Recorded Date/ Time Do you have a Healthcare Power of Application Support Analyst? No June 28, 2025 4:11pm Do you have a Healthcare Power of Application Support Analyst? No June 13, 2025 8:45pm Healthcare Agents on File Name Relationship Healthcare Agent Relationshi p Communication Salvador Acevedo Son First Alternate Health Care Agent Tomasz Armas Spouse Second Alternate Health Care Agent [...] may be documented in an alternate section No data available for this section INFORMATION SOURCE (unrecogn ized section and content) DATE CREATED AUTHOR 04/26/2022 [facility] DATE CREATED AUTHOR AUTHOR'S ORGANIZ ATION 07/07/2025 [facility] DATE CREATED AUTHOR AUTHOR'S ORGANIZ ATION 07/12/2025 [facility] DATE CREATED AUTHOR AUTHOR'S ORGANIZ ATION 07/12/2025 [facility] DATE CREATED AUTHOR AUTHOR'S ORGANIZ ATION 07/14/2025 [facility] Care Teams (unrecognized sec tion and content) Team Status: Active Member Role Status Dates Dr. Narinder Crum MD Family Provider Active Dr. Narinder Crum MD Primary Care Provider Active Team Status: Inactive Member Role Status Dates Dr. Narinder Crum MD Primary Care Provider, Referring P adonay Active Zaki OWEN, PA Attending Provider Active Team Status: Inactive Member Role Status Dates Dr. Narinder Crum MD Primary Care Provide r, Attending Provider, Referring Provider Active Team Status: Inactive Member Role Status Dates Dr. Narinder Crum MD Primary Care Provider Active Brandon Sexton PA, PA-C Attending Provider, Referring Pr ovider Active Team Status: Inactive Member Role Status Dates Dr. Narinder Crum MD Primary Care Provider Active Laly Diaz RN INTEGRATED, RN INTEGRATED-C Attending Provider, Referring Pro vider Active Team Status: Inactive Member Role Status Dates Dr. Narinder Crum MD Primary Care Provider Active Dr. Narinder Fuentes DO Emergency Provider Active Team Status: Inactive Member Role Status Dates Dr. Narinder Crum MD Primary Care Provider Active Dr. Narinder Fuentes DO Attending Provider, Emergency Ita urias Active Team Status: Inactive Member Role Status Dates Dr. Narinder Crum MD Primary Care Provider Active Start: October 30, 2024 End: October 30, 2024 DEMARCUS LANGFORD Attending Provider Active Start: 2023 End: October 30, 2024 DEMARCUS LANGFORD Referring Provider Active Start: 2023 End: October 30, 2024 Team Status: Inactive Member Role Status Dates Dr. Narinder Crum MD Primary Care Provider Active Start: January 25, 2025 End: January 25, 2025 Dr. Narinder Crum MD Referring Provider Active St art: January 25, 2025 End: January 25, 2025 BRAYDEN Wray Attending Provider Active Star t: January 25, 2025 End: January 25, 2025 Team Status: Inactive Member Role Status Dates Dr. Narinder Crum MD Primary Care Provider Active Start: January 25, 2025 End: January 25, 2025 Dr. Edil Hong MD Attending Provider Active S tart: January 25, 2025 End: January 25, 2025 Team Status: Inactive Member Role Status Dates Dr. Narinder Crum MD Primary Care Provider Active Start: March 15, 2025 End: March 15, 2025 FRANK BASHIR Attending Provider Active Sta rt: March 15, 2025 End: March 15, 2025 FRANK BASHIR Referring Provider Active Sta rt: March 15, 2025 End: March 15, 2025 Team Status: Active Member Role/Relationship Status Dates Dr. Narinder Crum MD Primary Care Provider Active Team Status: Inactive Member Role/Relationship Status Dates Dr. Narinder Crum MD Primary Care Provider Active Start: March 15, 2025 End: March 15, 2025 FRANK BASHIR Attending Provider Active Sta rt: March 15, 2025 End: March 15, 2025 FRANK BASHIR Referring Provider Active Sta rt: March 15, 2025 End: March 15, 2025 Team Status: Active Member Role/Relationship Status Dates Dr. Narinder Crum MD Primary Care Provider Active Start: [...] Status: Inactive Member Role/Relationship Status Dates Dr. Narinder Crum MD Primary Care Provider Active Start: [...] 13, 2025 End: June 14, 2025 Dr. Thelma Hamm DO Attending Provider Active Start: June 13, 2025 End: June 14, 2025 Team Status: Active Member Role/Relationship Status Dates Dr. Narinder Crum MD Primary Care Provider Active Start: June 14, 2025 Dr. Efren Moss MD Emergency Provider Active Sta rt: June 14, 2025 Dr. Hui Morel MD Admit Provider Active St art: June 14, 2025 Dr. Hui Morel MD Other Provider Active St art: June 14, 2025 Dr. Cade Humphries MD Other Provider Active Start: June 14, 2025 Dr. Thelma Hamm DO Other Provider Active S tart: June 14, 2025 Dr. Edil Hong MD Attending Provider Active S tart: June 14, 2025 Editor In Chief Newspaper Relationship Specialty Start Date End Date Narinder Crum [address] [place] [phone] PCP - General Family Medicine 06/14/25 Hui Morel [address] [facility] [address] [place] [address] Hospitalist 06/14/25 Editor In Chief Newspaper Relationship Specialty Start Date End Date Narinder Crum [address] [place] [phone] PCP - General Family Medicine 06/14/25 Maria Teresa Hui [address] [facility] [address] [place] [address] Hospitalist 06/14/25 [address] [facility] [address] [place] [address] Hospitalist 06/14/25 06/14/25 Janelle Carroll, flavor room workerSeasonal Recruiter Manager 06/19/25 Editor In Chief Newspaper Relationship Specialty Start Date End Date Narinder Crum [address] [facility] [address] [place] [phone] PCP - General Family Medicine 06/14/25 [address] [facility] [address] [place] [address] Hospitalist 06/14/25 Janelle Carroll, flavor room workerSeasonal Recruiter Manager 06/19/25 Editor In Chief Newspaper Relationship Specialty Start Date End Date Narinder Crum [address] [facility] [address] [place] [phone] PCP - General Family Medicine 06/14/25 Hui [address] [facility] [address] [place] [address] Hospitalist 06/14/25 Janelle Carroll, flavor room workerSeasonal Recruiter Manager 06/19/25 Editor In Chief Newspaper Relationship Specialty Start Date End Date Narinder Crum [address] [facility] [address] [place] [phone] PCP - General Family Medicine 06/14/25 Hui Morel [address] [facility] [address] [place], [place] [address] Hospitalist 06/14/25 Janelle Carroll, flavor room workerSeasonal Recruiter Manager 06/19/25 Team Status: Active Member Role/Relationship Status Dates Dr. Narinder Crum MD Primary Care Provider Active Start: June 14, 2025 Dr. Efren Moss MD Emergency Provider Active Sta rt: June 14, 2025 Dr. Hui Morel MD Admit Provider Active St art: June 14, 2025 Dr. Hui Morel MD Other Provider Active St art: June 14, 2025 Dr. Cade Humphries MD Other Provider Active Start: June 14, 2025 Dr. Thelma Hamm DO Attending Provider Active Start: June 14, 2025 Dr. Thelma Hamm DO Other Provider Active S tart: June 14, 2025 Team Status: Inactive Member Role/Relationship Status Dates Dr. Narinder Crum MD Primary Care Provider Active Start: June 28, 2025 End: June 28, 2025 Dr. Yefri Ritter DO Emergency Provider Activ e Start: June 28, 2025 End: June 28, 2025 Editor In Chief Newspaper Relationship Specialty Start Date End Date Narnider Crum [address] [facility] [address] [place] [phone] PCP - General Family Medicine 06/14/25 Hui Morel [facility] [address] [place] [address] Hospitalist 06/14/25 Janelle Carroll, RN Registered Nurse Seasonal Recruiter Manager 06/19/25 Editor In Chief Newspaper Relationship Specialty Start Date End Date Narinder Crum [address] [facility] [address] [place] [phone] PCP - General Family Medicine 06/14/25 Hui Morel [address] [facility] [address] [place] [address] Hospitalist 06/14/25 Janelle Carroll, RN Registered Nurse Seasonal Recruiter Manager 06/19/25 Cassandra Brito I., [facility] Bingo Checker Licensed Clinical Bingo Checker 07/04/25 Scheduled Active and Recently Administ ered Medications (unrecognized section and content) Medication Order 06/20/2025 06/21/2025 06/22/2025 acetaminophen (Tylenol) tablet 1,000 mg 1,000 mg, Oral, Every 8 hours, First dose on Tue06/18/25 at 1615, Recovery & On Unit 0006 (Given - Provider: Susan Leong RN)0827 (Given - Provider: Sweetie Rust RN)1612 (Given - Provider: Sweetie Rust RN) 0031 (Given - Provider: Marquise Koroma RN)0830 (Given - Provider: Moon Granda, JOY)1637 (Given - Provider: Andres Lim RN) 0044 (Given - Provider: Marquise Koroma RN)0824 (Given - Provider: Laly Padilla, JOY) aspirin chewable tablet 81 mg 81 mg, Oral, Daily, First dose on Tue06/19/25 at 0915 0828 (Given - Provider: Sweetie Rust RN) 0830 (Given - Provider: Moon Granda, JOY) 0824 (Given - Provider: Laly Padilla, JOY) bisacodyl (Dulcolax) suppository 10 mg 10 mg, Rectal, Daily, First dose on Tue06/19/25 at 0915 0829 (Given - Provider: Sweetie Rust RN) 0818 (Not Given - Provider: Moon Granda RN - Reason: Patient/family refused) 0909 (Not Given - Provider: Laly Padilla, JOY - Reason: Patient/family refused) ceFAZolin (Ancef) 2,000 [...] Susan Leong RN)0040 (Stopped - Provider: Susan Leong, RN)0525 (New Bag - Provider: Susan Leong RN)0556 (Stopped - Provider: Susan Leong RN) chlorhexidine (Hibiclens) 4 % solution Topical, Daily, First dose on Tue06/19/25 at 1400, Recovery & On Unit 1415 (Given - Provider: Sweetie Rust RN) 2001 (Given - Provider: Marquise Koroma RN) 1400 [...] Koroma RN) 0830 (Given - Provider: Moon Granda, JOY) clopidogrel (Plavix) tablet 75 mg 75 mg, Oral, Daily, First dose on Tue06/22/25 at 0900 0823 (Given - Provider: Laly Padilla, JOY) enoxaparin (Lovenox) syringe 40 mg 40 mg, SubCUTAneous, Every 24 hours, First dose on Grace 06/20/25 at 0900, Indication of Use: Prophylaxis-DVT/PE, Indications: Prophylaxis of Venous Thromboembolism 0827 (Given - Provider: Sweetie Rust RN) 0830 (Given - Provider: Moon Granda, JOY) 0824 (Given - Provider: Laly Padilla, JOY) ezetimibe (Zetia) tablet 10 mg 10 mg, Oral, Nightly, First dose on Tue06/22/25 at 2100 furosemide (Lasix) injection 40 mg (COMPLETED) 40 mg, IntraVENous, Once, On Tue06/21/25 at 0900, For 1 dose 0914 (Given - Provider: Moon Granda, JOY) ketorolac (Toradol) injection 15 mg (COMPLETED) 15 mg, IntraVENous, Every 6 hours, First dose (after last reorder) on Tue06/20/25 at 0945, For 3 doses 1036 (Given - Provider: Sweetie Rust RN)1608 (Given - Provider: Sweetie Rust RN)2058 (Given - Provider: Marquise Koroma RN) lactulose (Chronulac) 10 GM/15ML solution 20 g (CANCELED) 20 g, Oral, 3 times daily, First dose on Tue06/20/25 at 0900 0828 (Given - Provider: Sweetie Rust RN)1415 (Given - Provider: Sweetie Rust RN)2100 (Given - Provider: Marquise Koroma RN) 0818 (Not Given - Provider: Moon Granda RN - Reason: Patient/family refused) levothyroxine (Synthroid, Levoxyl) tablet 50 mcg 50 mcg, Oral, Daily before breakfast, First dose on Tue06/20/25 at 0600, Tube feeding (TF) interaction, obtain [...] 12 hours in any 24 hour period. 08 (Medication Applied - Provider: Sweetie Rust RN)2102 (Medication Removed - Provider: Marquise Koroma RN) 0834 (Medication Applied - Provider: Moon Granda RN)2002 (Medication Removed - Provider: Marquise Koroma RN) 0824 (Medication Applied - Provider: Laly Padilla RN)1220 (Due: Medication Removed - Provider: Automatic Discharge Provider - Comment: Time automatically adjusted from order being discontinued) metoclopramide (Reglan) injection 10 mg (CANCELED) 10 mg, IntraVENous, Every 6 hours, First dose on Tue06/19/25 at 0930 0905 (Given - Provider: Sweetie Rust RN)1609 (Given - Provider: Sweetie Rust RN)210 (Given - Provider: Marquise Koroma RN) 0239 [...] Oral, 2 times daily, First dose on Tue06/20/25 at 0915, Hold for SBP less than [...] Unit 0829 (Given - Provider: Sweetie Rust RN)210 (Given - Provider: Marquise Koroma RN) 0830 (Given - Provider: Moon Granda, JOY) NIFEdipine [...] Moon Granda RN - Reason: Patient/family refused) 24 (Not Given - Provider: Laly Padilla, RN - Reason: Patient/family refused) rosuvastatin (Crestor) tablet 40 mg 40 mg, Oral, Daily, First dose on Tue06/19/25 at 914 0828 (Given - Provider: Sweetie Rust RN) 08 (Given - Provider: Moon Granda RN) 08 (Given - Provider: Laly Padilla RN) senna-docusate sodium (Senokot-S) 8.6-50 MG tablet 2 [...] RN)2058 (Given - Provider: Marquise Koroma RN) 08 (Given - Provider: Moon Granda, JOY)1211 (Given - Provider: Moon Granda, JOY)1637 (Given - Provider: Andres Lim RN)1999 (Given [...] Rust RN) 0033 (Given - Provider: Marquise Koroma, JOY)0830 (Given - Provider: Moon Granda RN)1635 (Given - Provider: Andres Lim RN) 0045 (Given - Provider: Marquise Koroma, JOY)0841 (Not Given - Provider: Laly Padilla RN [...] sedation for opioid reversal - MUST notify service delivery consultant provider immediately after first dose, may give [...] Rust RN)2100 (See Alternative - Provider: Marquise Koroma RN) 023 (See Alternative - Provider: Marquise Koroma RN)1999 (See Alternative - Provider: Marquise Koroma RN) 012 (See Alternative - Provider: Marquise Koroma RN) oxyCODONE (Roxicodone) immediate release tablet 5 mg(Linked Group 4) 5 mg, Oral, Every 4 hours PRN, moderate pain (4-6), Starting on Tue06/18/25 at 1601, Recovery & On Unit 0524 (Given - Provider: Susan Leong RN)0923 (See Alternative - Provider: Sweetie Rust RN)2100 (Given - Provider: Marquise Koroma RN) 023 (Given - Provider: Marquise Koroma RN)1999 (Given - Provider: Marquise Koroma RN) 012 (Given - Provider: Marquise Koroma RN) [...] Arauz RN) 2110 (Given - Provider: Cassandra Herman, JOY) labetalol (Normodyne,Trandate) injection 10 mg 10 mg, [...] or split. 1217 (Given - Provider: Khushi Shay RN) 1122 (Given - Provider: Maria Guadalupe Martin, JOY) rosuvastatin (Crestor) tablet 40 mg 40 mg, Oral, Daily, First dose on Tue06/24/25 at 2100 2104 (Given - Provider: Meena Arauz RN) 2109 (Given - Provider: Cassandra Herman, JOY) Continuous Medication Order 06/25/2025 06/26/2025 06/27/2025 sodium [...] hours. 0850 (Given - Provider: Maria Guadalupe Martin RN) bisacodyl (Dulcolax) suppository 10 mg 10 mg, Rectal, Daily PRN, constipation, Starting on Tue06/24/25 at 1403, 2nd line for treatment of constipation - give scheduled (in addition to 1st line agent) if no bowel movement in past 48 hours haloperidol lactate (Haldol) injection 0.5 mg 0.5 mg, IntraMUSCular, Every 6 hours PRN, agitation, second line for agitation, [place] PRN for ONLY if danger to self/others/treatment, [...] sedation for opioid reversal - MUST notify service delivery consultant provider immediately after first dose, may give [...] 24 hours. 2103 (Given - Provider: Meena Arauz RN) 0850 (Given - Provider: Maria Guadalupe Martin, JOY) 0843 (Given - Provider: Maria Guadalupe Martin, JOY) QUEtiapine (SEROquel) tablet 12.5 mg 12.5 mg, Oral, 2 times daily PRN, agitation, first line for agitation, [place] PRN for ONLY if danger to self/others/treatment, [...] days. Specialty Diagnoses / Procedures Referred By Faith t Referred To Contact Diagnoses Altered mental status, unspecified altered mental status type Procedures . Marry Berger MD [address] [place] [address] Phone: tel: fax: [facility] [address] [place] [phone] Phone: tel: fax: Referral ID Status Reason Start Date Expiration Date Visits Re quested Visits Authorized Reason Onset Date Comments [facility] Outreach 07/02/2025 Reason Onset Date Comments Other 07/02/2025 Pt. Admit [facility] FOR RECORDS PERTAINING TO PATIENTS WHO ARE [...] BE BASED ON THE PRIMARY CLINICAL RECORDS. [facility] [employer] [facility]. provides no warranty or guarantee of the accuracy or completeness of information in this document.
[2025-07-14 20:48] LABS: Troponin T High Sens 2 HR 20 ng/L (<=14)
[2025-07-14 21:00] VITALS: BP 147/65; PULSE 69; RESP 21; O2SAT 100
[2025-07-14 21:29] VITALS: BP 136/62; PULSE 66; RESP 22; TEMP 36.9; O2SAT 99
== END 2025-07-14 21:30 | disposition home or self-care (01) ==
PROVIDERS: Emergency Provider Emergency Medicine; PCP Family Medicine; Visit Provider Emergency Medicine
DX: R07.9 Chest pain, unspecified (principal); E78.00 Pure hypercholesterolemia, unspecified; N18.2 Chronic kidney disease, stage 2 (mild); I12.9 Hypertensive chronic kidney disease with stage 1 through stage 4 chronic kidney disease, or unspecified chronic kidney disease; I25.10 Atherosclerotic heart disease of native coronary artery without angina pectoris; E03.9 Hypothyroidism, unspecified; I25.2 Old myocardial infarction; Z79.890 Hormone replacement therapy; Z79.899 Other long term (current) drug therapy; Z95.1 Presence of aortocoronary bypass graft
CPT/HCPCS: 71045; 80048; 84484; 85025; 93005; 99284; A4216

== ENCOUNTER → 2025-07-29 | Outpatient (CLI) | payer MEDICARE, OTHER, SELFPAY ==
--- NOTE | 2025-07-29 14:08 | PCM.CR.HP2 ---
CR - History & Physical General Arrival date:: 07/29/25 Arrival time:: 14:08 Date of Referral:: 07/24/25 Date of CR Evaluation:: 07/29/25 Referring Physician: CABG Primary Diagnosis: Dr. Hong History of Present Cardiac Event Onset Date Coronary Artery Bypass Graft:: Yes (onset 06/14/25) Vessel: Left internal mammary to LAD, SVG to OM, SVG to PAD Medications Ambulatory Orders ?Medication ?Instructions ?Recorded alendronate 70 mg tablet 70 mg PO .weekly 01/25/25 levothyroxine 75 mcg tablet 75 mcg PO DAILY 01/25/25 nifedipine 30 mg tablet,extended 30 mg PO DAILY 01/25/25 release venlafaxine 37.5 mg 37.5 mg PO DAILY depression 06/13/25 capsule,extended release 24 hr acetaminophen 500 mg tablet 1,000 mg PO Q8H PRN 07/19/25 amitriptyline 50 mg tablet 100 mg PO QHS 07/19/25 aspirin 81 mg chewable tablet 1 tab PO QDAY 07/19/25 azelastine 137 mcg (0.1 %) nasal 1 spray intranasal BID 07/19/25 spray cholecalciferol (vitamin D3) 25 25 mcg PO QDAY 07/19/25 mcg (1,000 unit) tablet clopidogrel 75 mg tablet 75 mg PO QDAY 07/19/25 denosumab 60 mg/mL subcutaneous 60 mg subcut [id number] 07/19/25 syringe (Prolia) duloxetine 20 mg capsule,delayed 20 mg PO QDAY 07/19/25 release ezetimibe 10 mg tablet 10 mg PO QHS 07/19/25 ipratropium bromide 21 mcg (0.03 2 spray intranasal Q6H PRN 07/19/25 %) nasal spray lidocaine 4 % topical patch 1 patch topical QDAY PRN 07/19/25 (Aspercreme (lidocaine)) lorazepam 1 mg tablet 0.5 mg PO QHS 07/19/25 metoprolol succinate 50 mg 50 mg PO QDAY 07/19/25 tablet,extended release 24 hr ondansetron 4 mg disintegrating 4 mg PO Q8H PRN 07/19/25 tablet pantoprazole 20 mg tablet,delayed 20 mg PO BID 07/19/25 release rosuvastatin 40 mg tablet 40 mg PO QDAY 08/29/25 tizanidine 4 mg tablet 4 mg PO Q8H PRN 07/19/25 Allergies Allergies cyclobenzaprine HCl (From Flexeril) Adverse Reaction (Verified 07/19/25 09:08) Other FEEL DISCONNECTED promethazine (From Phenergan) Adverse Reaction (Verified 07/19/25 09:08) Other Sleep Disorder Evaluation Hx of Sleep Apnea: No Do you snore loudly (louder than talking or can be heard through closed doors)?: No Do you often feel tired/ fatigued/ sleepy during daytime?: No Has anyone observed you stop breathing during sleep?: No History of Hypertension (for STOP score): No STOP Results: Negative Advanced Directives Advanced Directives Do you have a Healthcare Power of Cashier And Waiter/Waitress?: Yes Living Will: Yes Advance Directives Information Provided: No Advance Directives on File: No DNR Order?:: No Past Medical History Covid-19 Screening Physicial Symptoms Other Clinical Concerns Exposure Risk Pertinent Comorbidities 65 years or older:: Yes Has a serious heart condition:: Yes Past Medical Illness Past Medical History (Updated 07/22/25 @ 00:00 by Hermes Decker) CAD (coronary artery disease) I25.10 NSTEMI, initial episode of care I21.4 Hypercholesterolemia E78.00 Exertional angina I20.89 Elevated troponin R79.89 ACS (acute coronary syndrome) I24.9 Chronic idiopathic constipation K59.04 CKD (chronic kidney disease), 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 GERD (gastroesophageal reflux disease) K21.9 IBS (irritable bowel syndrome) K58.9 HTN (hypertension) I10 Raynaud disease I73.00 Fibromyalgia M79.7 Cataract H26.9 High cholesterol E78.00 Hypothyroidism E03.9 Past Surgical History Past Surgical History (Updated 07/24/25 @ 08:29 by Taniya Contreras RN) 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.1 Left internal mammary artery to LAD; Reverse saphenous vein graft to the obtuse marginal artery; Reverse saphenous vein graft to the right posterior descending artery Previous back surgery Z98.890 L4-L5 H/O wrist surgery Z98.890 right with hardware History of ankle surgery Z98.890 left with hardware placed H/O shoulder surgery Z98.890 Family History Summary Family History Father Heart disease CAD (coronary artery disease) Hypertension Myocardial infarction HLD (hyperlipidemia) Mother Hypertension Social History Smoking History Smoking Status: Never smoker Alcohol Use Alcohol Usage: Yes (rare) Occupation Occupation (List type of work in comments):: Retired Social Environment Status Marital Status: Current Living Arrangements Living Environment:: Spouse Children How many children do you have?: 2 Do any of your children live nearby?: No Safety Do you feel safe in your surroundings?: Yes Assistance Do you need any assistance at home?: no Review of Systems Review of Systems Hints Review of Present Symptoms: Reports Shortness of Breath with Exertion, Fatigue, Appetite - Normal, Appetite - Special Diet and Sleep - Normal; Denies Shortness of Breath at Rest, PVD, Operative Discomfort, Angina, Wound Healing, Dizziness/Lightheadedness, Heart Arrhythmia/Irregularities or Sexual Changes Pain Is Patient Pain Free?: No Pain Location: neck and upper extremity Pain Level: 5/10 Risk Factor Assessment Chief Complaint Chief Complaint: CABG Vital Signs Pulse Ox: 96 Blood Pressure: 130/58 Pulse Pulse Rate: 75 Hypertension Blood Pressure Sitting - Right Arm: 130/58 Stress Stress: Home/Family Obesity Height: 5 ft 3 in Weight:: 136 lb Weight in Pounds: 136.0 lbs Body Mass Index (BMI): 24.0 Nutritional Referral for Obesity: No (declines) Physical Inactivity Physical Inactivity: Reg Exercise 30 min/day Risk Stratification Risk Guidelines: Lowest Risk: Risk Factor for Smoking, Moderate Risk: Risk Factor for Diabetes, Risk Factor for Obesity, Risk Factor for Hypertension, Risk Factor for Sedentary Lifestyle and Risk Factor for Depression and Highest Risk: Risk Factor for Dyslipidemia For Smoking Smoking Risk Guidelines For Dyslipidemia Dyslipidemia Risk Guidelines For Diabetes Mellitus Diabetes Risk Guidelines For Obesity/Overweight Obesity/Overweight Risk Guidelines For Hypertension Hypertension Risk Guidelines For Sedentary Lifestyle Sedentary Lifestyle Risk Guidelines For Depression Depression Risk Guidelines Family History Family History Father Heart disease CAD (coronary artery disease) Hypertension Myocardial infarction HLD (hyperlipidemia) Mother Hypertension Motivation Motivation to Participate On a scale of 1 to 10, how prepared are you to commit to attending program?: 10 What do you see as barriers to successfully being able to complete the program?: nothing What do you see as the benefits of succesfully completing the program? In other words, what do you hope to get out of participating in the program?: energy, management of stress Are there issues you are dealing with that will interfere with completing the program?: no Do you have a spouse or signficant other, family or friends who will help support you to complete the program?: yes
[2025-07-29 14:24] VITALS: BP 130/58; PULSE 75; O2SAT 96
--- NOTE | 2025-07-29 14:45 | PCM.CR.ITP ---
Diagnosis General Information Admitting Diagnosis: CABG Personal Learning Style:: Audio/Visual Barriers to Learning: No Barriers Stage of change r/t lifestyle modifications:: Contemplation Gave educational material for:: Treating Heart Disease, How The Heart Works, What it means to have Heart Disease, How Coronary Artery Disease is Diagnosed, Heart Procedures, What Heart Medications Do, Risk Factors & Modifications, Living an Active Life, Nutrition, Emotions & Heart Disease, Stress Management & Relaxation and Sleep Disorders & Heart Disease Education/Goals Cardiac Rehabilitation Goals Personal Goals: Initial Assessment: Improve management of stress and emotions, Improve energy level, Improve knowledge of cardiac disease, Improve muscle strength and endurance and Control risk factors (learn risk factor modification) Scale for measuring improvement of personal goals Diagnosis & Disease Process Outcomes/Goals: Pt IDs own risk factors & lifestyle modifications by Session 10, Verbalizes symptoms of angina & response by session 3., Pt independently manages and Other Additional Outcomes/Goals: Plan/Interventions: Assist Pt to ID & engage in lifestyle modification to reduce CVD risk, Instruct on individual risk factors, Review symptoms of angina & emergency actions, Review secondary diagnosis & identify educational needs. and Other see comment 30 day Reassessments:: Not Met 30 day Reassessments:: Not Met 30 day Reassessments:: Not Met 30 day Reassessments:: Not Met Final Reassessments:: Not Met Safety Referral to Physical Therapy: No Referral to [facility] Case Management: No Fall Risk Assessed:: Yes Assistive Devices:: None Exercise - Initial Assessment Visit Date of Eval: 07/29/25 (initial eval ) Mets: Pre-: >3 METS for 30 minutes by discharge, >5 METS for 30 minutes by discharge, >7 METS for 30 minutes by discharge and Unable to meet goal due to: (see comment below) Physician Prescribed Exercise Modalities: Treadmill, [employer] [employer] Airdyne AD-7, SciFit Stepper, SciFit Pro-II Ergometer and SciFit Lateral Motion Picture Projectionist Apprentice Frequency: 3x/week for 12 weeks [36 sessions] Intensity: 60-80% of age predicted maximum heart rate reserve Duration: 30 - 45 minutes Current METSs:: 3 Target Heart Rate:: 95-110 Resting Blood Pressure: 130/58 EKG Type: NSR Twave abnormality Outcomes & Goals Goals:: Verbalizes understanding of THR, RPE & goal METS by session 6, Documents in home exercise log/reports 30 min aerobic 5 day/wk by DC, Demonstrates accurate pulse taking by DC and Other additional outcome/goals: see below Intervention & Plan Exercise Program Goals: Instruct on personal THR & RPE, Instruct on MET level & personal MET goal, Show patient to take own pulse /validate performance until accurate, Instruct on home exercise and Other additional plan/int Physical Activity Home Exercise Physical Activity - Home Exercise: Safe Exercise, Warm-up, Self-monitoring, Cool-Down, Home Exercise > 30 min Daily and Sitting Time <3 hours/daily Outcomes & Goals Outcomes/Goals: Demonstrates correct Warm-up/exercise Cool-Down (S3) if = 2.5 METs, Verbalizes symptoms of exercise intolerance by Session 3 (S3), Demonstrate safe equipment use (S3) & follows exercise prescrition (6) and Other: See below Intervention & Plan Plan/Intervention: Instruct warm-up & cool-down if exercising at > 2 METs, Instruct on symptoms of exercise intolerance & actions to take, Instruct & monitor on saf, Assess intial functional capacity & safety risk and Other See below Nutrition - Initial Assessment Program Goals Nutrition Program Goals Patient has diagnosis of Hyperlipidemia (ICD E78)?: Yes Visit Date of Eval: 07/29/25 (initial eval ) Cholesterol/Lipids (Other Core Measures) Determine presence & major risk factors that modify LDL goal: Hypertension or hypertensive medication, Low HDL cholesterol <40 mg/dL*, Family history of premature CHD in Male < 55 years: female <65 yearsFa and Age men > 45 years; women >/= 55 years Outcomes/Goals: Pt IDs own risk factors & lifestyle modifications by Session 10, Verbalizes symptoms of angina & response by session 3., Pt independently manages and Other Additional Outcomes/Goals: Intervention/Plan: Advocate for lipid panel cholesterol medication if applicable, Instruct on personal lipid levels & lipid goals/NCEP guidelines, Instruct on cholesterol and Other additional plan/int Referral to dietitian:: No (Declines at this time. Nutrition score of 6.) Diabetes (Other Core Measures) Diabetes Type: Not Applicable Weight Mgt (Other Care) Height: 5 ft 3 in Weight:: 136 lb BMI: 24.0 Diagnosis Overweight/Obesity BMI> 30% ICD-10 E66: No Diagnosis High BMI/Morbid Obesity BMI> 35% ICD-10 Z68: No Outcomes/Goals: Pt sets, maintains & shows weight loss goal & trend during rehab and Other additional outcomes/goals Intervention/Plan: Instruct on ideal BMI & set weight loss goal w/patient, Assist pt to ID & incorporate diet changes for weight loss by S9, Refer to Structured Weight Loss program as appropriate, Encourage goal of using 250-300dcal per session for weight loss and Other additional plan/interventions Healthy Eating Habits Will attend diet classes:: Yes Outcomes/Goals:: Consume diet rich in vegs,fruits,whole grain/high fiber,fish,lean meat, Limit sat/trans fats,cholesterol & added salts & sugars and Other additional outcome/goals: Intervention/Plan:: Assess current eating habits and Other Additional plan/interventions Education Gave educational materials for:: Signs & symptoms of hypoglycemia, Signs & symptoms of hyperglycemia, Relate diabetes to coronary artery disease and Healthy eating Core - Initial Assessment Visit Date of Eval: 07/29/25 (initial eval ) Medication Compliance Preventative Medication(s):: Aspirin, Clopidogrel/P2Y12 inhibit and Beta karlo Doesn?t believe in the benefits of treatment?: No Believes medications are unnecessary or harmful?: No Has a concern about medication side effects?: No Expresses concern over the cost of medications?: No Outcomes/Goals: Verbalizes medications,desired effect & common side effects @ DC, Pt self-reports following medication regimen, Keeps card in wallet w/medications listed by DC and Other additional outcome/goals: Interventions/plans: Instruct on medication effects & side effects, Review medication list w/patient every two weeks, Instruct importance of taking meds as ordered & assist problem solving and Other additional Tobacco Use Tobacco Use: Non-smoker Hypertension Resting Blood Pressure:: 130/58 [employer] Hypertension Guidelines Outcomes/Goals: Able to verbalize/achieve optimal blood pressure <130/80, Incorporates diet changes & exercise for blood pressure control by DC and Other additional outcomes/goals Interventions/plan: Instruct on optimal blood pressure, hypertension & medications, Instruct on effects of sodium, alcohol, stress, exercise &hypertension and Other additional plan/interventions Tobacco Cessation Referral Smoking Cessation Referral:: No Individual Education/Counseling:: No Education Schedule Given:: Yes Psychosocial - Initial Assess VIsit Date of Eval: 07/29/25 Self-reported stressors: Family and Recent Illness Self-reported stressors Other/Comments:: Pt reports that family and recent illness has been difficult but declines counseling at this time. Pt has spoke with her alfalfa dehydrator operator and a counselor. Target Goals Target Goals Psychosocial Test Tool Used:: PHQ-9 Questionnaire phq-9 Severity See PHQ-9 Score: 6 Patient Health Questionnaire PHQ-9 Screening Initial Assessment: 1. Little interest or pleasure in doing things: Not at all 2. Feeling down, depressed, or hopeless: Several days 3. Trouble falling or staying asleep, or sleeping too much: Several days 4. Feeling tired or having little energy: Several days 5. Poor appetite or overeating: Not at all 6. Feeling bad about yourself -- or that you are a failure or have let yourself or your family down: Several days 7. Trouble concentrating on things, such as reading the newspaper or watching television: Several days 8. Moving or speaking so slowly that other people could have noticed. Or the opposite - being so fidgety or restless that you have been moving around a lot more than usual: Several days 9. Thoughts that you would be better off , or of hurting yourself in some way: Not at all How difficult have these problems made it for you to do your work, take care of things at home, or get along with other people?: Somewhat difficult Total Score: 6 TESS-Q SV Test Statements CAD is a disease of the arteries in the heart: False Examples of risk factors for heart disease: True Angina is chest pain or discomfort: True The benefits of resistance training include: True Eating more meat and dairy products: False Anti-platelet medications such as aspirin are important: True The only effective way to manage stress: False An exercise warm-up slowly increases heart rate: True Prepared, processed foods usually have high sodium: True Depression is common after a heart attack: False The statin medications lower cholesterol: True To control blood pressure, lower the amount of sodium: True If someone gets chest discomfort during walking: False Transfats are partially hydrogenated vegetable oils: True Sleep apnea that is not treated increases the risk: I Don't Know To control cholesterol, one should become a vegetarian: False Someone knows if he/she is exercising at the right level: True Diabetes cannot be prevented with exercise & health eating: True Stress is a large risk for heart attack: True A diet that can help lower blood pressure is rich in: True Total Score Total Correct Responses: 17 Nutrition Survey Nutrition Survey Instructions Scoring Instructions Nutrition Survey Initial: Have you lost >10 lbs over the past 2 months without trying?: Yes Are you following a special diet at home for diabetes, low fat, or low salt?: Yes Are you interested in meeting with a dietitian for help understanding your diet?: Yes Do you eat less than 3 meals a day?: No Do you eat fatty meats (adams, sausage, ribs, etc), fried foods, desserts, large amounts of salad dressings, margarine, butter, or cheese most days?: No Do you have food allergies? [Enter types in comment field]: Yes Do you eat in restaurants more than 3 times a week?: No Do you season food with salt, seasoning salt, or garlic salt?: Yes Do you used canned, boxed, frozen meals, or soups, seasoning packets?: Yes Total Score:: 6 Exercise - 30-day Assessment Physician Prescribed Exercise Modalities: Treadmill, [employer] Airdyne AD-7, SciFit Stepper, SciFit Pro-II Ergometer and SciFit Lateral [place] Exercise - 60-day Assessment Physician Prescribed Exercise Modalities: Treadmill, [employer] [employer]irdyne AD-7, SciFit Stepper, SciFit Pro-II Ergometer and SciFit Lateral [place] Exercise - 90-day Assessment Physician Prescribed Exercise Modalities: Treadmill, [place] Airdyne AD-7, SciFit Stepper, SciFit Pro-II Ergometer and SciFit Lateral Motion Picture Projectionist Apprentice Exercise - Final/Discharge Physician Prescribed Exercise Modalities: Treadmill, [employer] Airdyne AD-7, SciFit Stepper, SciFit Pro-II Ergometer and SciFit Lateral [place] Frequency: 3x/week for 12 weeks [36 sessions] Intensity: 60-80% of age predicted maximum heart rate reserve Current METSs:: 3 Target Heart Rate:: 95-110 Nutrition - 30-Day Assessment Weight Mgt (Other Care) Height: 5 ft 3 in Weight:: 136 lb BMI: 24.0 Nutrition - 60-Day Assessment Weight Mgt (Other Care) Height: 5 ft 3 in Weight:: 136 lb BMI: 24.0 Core - Final Assessment Hypertension Resting Blood Pressure:: 130/58 [employer] Heart [employer] Hypertension Guidelines Core - 60-Day Assessment Hypertension Resting Blood Pressure:: 130/58 [employer] Hypertension Guidelines Psychosocial - 30-Day Assess Target Goals Target Goals Psychosocial - 60-Day Assess Target Goals Target Goals Psychosocial - 90-Day Assess Target Goals Target Goals Psychosocial - Final Assessmen Target Goals Target Goals Psychosocial Test phq-9 Severity See PHQ-9 Score: 6 Nutrition - 90-Day Assessment Weight Mgt (Other Care) Height: 5 ft 3 in Weight:: 136 lb BMI: 24.0 Nutrition - Final Assessment Program Goals Patient has diagnosis of Hyperlipidemia (ICD E78)?: Yes Weight Mgt (Other Care) Height: 5 ft 3 in Weight:: 136 lb BMI: 24.0
[2025-07-29 14:57] VITALS: BP 130/58; BMI 24.0
[2025-07-29 14:58] VITALS: BMI 24.0
== END | disposition home or self-care (01) ==
LOC: CR 14:03
PROVIDERS: PCP Family Medicine; Referring Provider Internal Medicine Cardiovascular Disease; Visit Provider Internal Medicine Cardiovascular Disease
DX: I25.10 Atherosclerotic heart disease of native coronary artery without angina pectoris (principal); Z95.1 Presence of aortocoronary bypass graft

== ENCOUNTER 2025-08-07 14:15 | Outpatient (RCR) | payer MEDICARE, OTHER, SELFPAY ==
[2025-07-29 14:57] VITALS: BMI 24.0
== END 2025-08-20 23:59 ==
LOC: CR 14:15
PROVIDERS: PCP Family Medicine; Referring Provider Internal Medicine Cardiovascular Disease; Visit Provider Internal Medicine Cardiovascular Disease
DX: I25.10 Atherosclerotic heart disease of native coronary artery without angina pectoris (principal); Z95.1 Presence of aortocoronary bypass graft
CPT/HCPCS: 93798

== ENCOUNTER 2025-08-08 19:45 | Emergency (ER) | payer MEDICARE, OTHER, SELFPAY ==
[2025-07-29 14:57] VITALS: BMI 24.0
[2025-08-08 19:46] VITALS: BP 154/67; PULSE 92; RESP 15; TEMP 37.2; O2SAT 100; BMI 25.1
[2025-08-08 19:49] VITALS: BP 154/67; PULSE 92; RESP 16; TEMP 37.2; O2SAT 100
[2025-08-08 20:27] LABS: Hematocrit 32.6 % (37-47); Hemoglobin 10.5 g/dL (12.0-15.0); Immature Granulocytes Count 0.030 X10^3/uL (0.0-0.0); Mean Corp Hgb Conc 32.2 g/dL (32-36); Mean Corpuscular Volume 90.3 fL (81-99); Mean Platelet Vol. 10.0 fl (6.2-12.0); NRBC Flagged by Analyzer 0 % (0-5); Platelet Count 418 K/mm3 (150-450); RBC Distribution Width CV 15.1 % (11.6-14.6); RBC Distribution Width SD 50.0 fl (35.1-43.9); Red Blood Count 3.61 M/mm3 (4.2-5.4); White Blood Count 10.3 K/mm3 (4.4-11.0)
--- NOTE | 2025-08-08 20:31 | RAD_ITS ---
PROCEDURE: CHEST PA AND LATERAL 08/08/2025 REASON FOR EXAM: COUGH, CONGESTION, TMAX 102.6 TECHNIQUE: Procedure Code: RADCXR Modality: DX Procedure: CHEST PA AND LATERAL COMPARISON: 07/14/2025 FINDINGS: Hardware: Sternotomy wires are present. Heart: The heart size is normal. Mediastinum: The mediastinal contour is unremarkable. Lungs: Trace left pleural effusion, superimposed consolidation not excluded. Bibasilar platelike atelectasis. No pneumothorax. Bones: The bones are unremarkable. RAD/Chest PA and Lateral IMPRESSION: Trace left pleural effusion, superimposed consolidation not excluded. Bibasila r platelike atelectasis. Reading [facility]
--- OUTSIDE RECORDS SUMMARY | 2025-08-08 20:43 | XMS RPT_ITS | CCD ---
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 Name Role Phone CRUM, NARINDER A Admitting Unavailable CRUM, NARINDER A Attending Unavailable CRUM, NARINDER A Primary Care Unavailable CRUM, NARINDER A Consulting Unavailable PROVIDER, UNKNOWN Consulting Unavailable BRANDON SEXTON PAC Admitting Unavailable BRANDON SEXTON PAC Attending Unavailable BRANDON SEXTON PAC Primary Care Unavailable CRUM, NARINDER A Consulting Unavailable PROVIDER, UNKNOWN Consulting Unavailable HORN, CHERY DPM Admitting Unavailable HORNCHERY DPM Attending Unavailable HORN, CHERY DPM Primary Care Unavailable CRUM, NARINDER A Consulting Unavailable PROVIDER, UNKNOWN Consulting Unavailable BISI, DR JACE Salas Admitting Unavailable BISI, DR JACE Salas Attending Unavailable BISI, DR JACE Salas Primary Care Unavailable CRUM, NARINDER A Consulting Unavailable CRUM, NARINDER A Referring Unavailable PROVIDER, UNKNOWN Consulting Unavailable HORN, CHERY DPM Admitting Unavailable HORN, CHERY DPM Attending Unavailable HORN, CHERY DPM Primary Care Unavailable CRUM, NARINDER A Consulting Unavailable PROVIDER, UNKNOWN Consulting Unavailable Dr. Narinder Crum Primary Care Provider Dr. Narinder Crum Referring Provider 1([facility])[phone] BRAYDEN Hernandez Attending Provider Dr. Narinder Crum MD Primary Care Provider ANNETTE TRACY Attending Provider [phone] ANNETTE TRACY Referring Provider [phone] Dr. Narinder Crum MD Referring Provider Ruthann Beaulieu Attending Provider Dr. Edil Hong MD Attending Provider Dr. Narinder Crum MD Primary Care Provider 1([facility])[phone] KRYSTEN MARIE Attending Provider 1([facility])[phone] KRYSTEN MARIE Referring Provider [phone] Arlin NUÑEZ, Dr. Barcenas Primary Care Provider Ajay NUÑEZ, Dr. Schwartz Emergency Provider Maria Teresa NUÑEZ, Dr. Hui Carias Admit Provider Maria Teresa NUÑEZ, Dr. Hui Carias Attending Provider Maria Teresa NUÑEZ, Dr. Hui Carias Other Provider Yandel NUÑEZ, Dr. Mohamud Other Provider Jazmine KAUR, Dr. Ugalde Attending Provider Jazmine KAUR, Dr. Ugalde Other Provider Hal NUÑEZ, Dr. Solo Attending Provider Narinder Crum Primary Care Provider Hui Morel Unavailable Narinder Crum Primary Care Provider WhiteHui Unavailable White, Hui Unavailable Carly RN, Janelle Unavailable Unavailable Carly HAMILTON, Janelle Unavailable Unavailable Dr. Yefri Ritter DO Emergency Provider ARLIN NUÑEZ, NARINDER A Primary Care Physician Hui Morel Unavailable Carly HAMILTON, Janelle Unavailable Unavailable Cassandra Hare I. Unavailable ARLIN NUÑEZ, NARINDER A Primary Care Unavailable [facility] DO Attending Unavailable NARINDER CRUM MD A Primary Care Unavailable RUTHANN BALTAZAR Attending Unavailable Dr. Narinder Crum MD Primary Care Provider Dr. Yefri Ritter DO Attending Provider Tremaine You MD Emergency Provider Tremaine You MD Attending Provider Dr. Narinder Crum MD Referring Provider [phone] Bong Benjamin Attending Provider Hal NUÑEZ, Dr. Solo Referring Provider [phone] CRUM, NARINDER Primary Care Unavailable ABMARRY Admitting Unavailable FIONA FRANCE Attending Unavailable THELMA HAMM Referring Unavailable CRUM, NARINDER Primary Care Unavailable ANDERS JOHNSTON Admitting Unavailable ANDERS JOHNSTON Attending Unavailable GABRIELLE HE Consulting Unavailable ELVA REEDER Attending Unavailable CRUM, NARINDER Primary Care Unavailable ELVA REEDER Attending Unavailable CRUM, NARINDER Primary Care Unavailable Crum, Narinder Primary Care Unavailable Tremaine You Attending Unavailable Yefri Ritter Attending Unavailabl e Crum, Narinder Primary Care Unavailable Crum, Narinder Primary Care Unavailable Hui Morel Admitting Unavailable Nagalisa, Nagapradee Consulting Unavailalphonso e Thelma Hamm Attending Unavailable Hui Morel Consulting Unavailable Crum, Narinder Primary Care Unavailable Hal, Ripley Referring Unavailable HalEdil brown Attending Unavailable Crum, Narinder Primary Care Unavailable Hal, Edil Attending Unavailable Hal, Ripley Referring Unavailable Crum, Narinder Referring Unavailable Bong Helton Attending Unavailable Crum, Narinder Primary Care Unavailable Crum, Narinder Primary Care Unavailable Hal Edil Attending Unavailable Hui Morel Admitting Unavailable Nagafouziathi, Nagapradee Consulting Unavailabl e Thelma Hamm Attending Unavailable Crum, Narinder Primary Care Unavailable Hui Morel Consulting Unavailable Thelma Hamm Consulting Unavailable Hal, Edil Attending Unavailable Hui Morel Attending Unavailable Crum, Narinder Referring Unavailable Crum, Narinder Primary Care Unavailable Ruthann Baltazar Attending Unavailable Crum, Narinder Primary Care Unavailable CONGENI, J1 Referring Unavailable CONGENI, J1 Attending Unavailable Crum, Narinder Primary Care Unavailable CONGENI, J1 Referring Unavailable CONGENI, J1 Attending Unavailable Allergies Allergy Classification Reported Allergen(s) Allergy Type Date of Onset Reaction(s) Facility (19 sources) cyclobenzaprine; Translations: [cyclobenzaprine HCl] Drug Allergy 11-12-20 15 Other [facility] Comment on above: FEEL DISCONNECTED (20 sources) Promethazine; Translations: [promethazine] Drug Allergy 12-09-19 22 Other [facility] (14 sources) Ybgizwa-Qct-Utu Reductase Inhibitor; Translations: [Gyacrko-Cre-Yjf Reductase Inhibitor] Propensity to adverse reactions 12-09-19 Pain in joints [facility] (1 source) cyclobenzaprine Drug Allergy [facility] (1 source) pantoprazole Drug Allergy [facility] (1 source) Promethazine Drug Allergy [facility] (14 sources) cyclobenzaprine; Translations: [cyclobenzaprine] Drug Allergy 06-14-20 Itching [facility] (1 source) Melatonin; Translations: [melatonin] Drug Allergy [facility] (1 source) Promethazine Drug Allergy 07-19-20 [facility] Repository Medications Current Medications Medication Drug Class(es) Dates Sig (Normalized) Sig (Original) acetaminophen 500 mg oral tablet (18 sources) Start: 07-19-2025 take 2 tablets by mouth every eight hours as needed Acetaminophen 500 mg tablet Active 1000 mg PO Q8H as needed July 19, 2025 12:00am Start: 06-30-2025 End: 07-06-2025 take 1 dose [...] sources in 24 hours. Start: 06-22-2025 End: 07-16-2025 take 2 tablets by mouth every eight hours acetaminophen (Tylenol) 500 MG tablet Take 2 tablets (1,000 mg) by mouth every 8 hours for 10 days. 06/22/2025 07/16/2025 Discontinued (Med list cleanup) Start: 06-18-2025 End: 06-22-2025 take 1 tablet by mouth every eight hours Start: 06-17-2025 End: 06-18-2025 alendronic acid 70 mg oral tablet (9 sources) Bisphosphonate Start: 01-25-2025 take 1 tablet by mouth every week Alendronate 70 mg tablet Active 70 mg PO .weekly January 25, 2025 1:00am Take on Wednesdays amitriptyline hydrochloride 50 mg oral tablet (20 sources) Tricyclic Antidepressant Start: 07-19-2025 take 2 tablets by mouth at bedtime Amitriptyline 50 mg tablet Active 100 mg PO AT BEDTIME July 19, 2025 9:14am Start: 11-12-2015 End: 07-19-2025 take 1 tablet by mouth once daily Amitriptyline 50 MG tablet Discontinued 50 mg PO DAILY November 12, 2015 1:00am July 19, 2025 9:14am aspirin 81 mg chewable tablet (20 sources) Platelet Aggregation Inhibitor, Nonsteroidal Anti-inflammatory Drug Start: 07-19-2025 Aspirin 81 mg tablet,chewable Active 1 {tbl} PO daily July 19, 2025 12:00am Start: 06-19-2025 End: 06-23-2026 aspirin 81 MG chewable table t Chew 1 tablet (81 mg) daily. 30 tablet 1 06/23/2025 06/23/2026 Active Start: 06-14-2025 End: 06-18-2025 azelastine hydrochloride 0.137 mg/actuat metered dose nasal spray (3 sources) Histamine-1 Receptor Antagonist Start: 07-19-2025 Azelastine 137 mcg (0.1 %) spray,non-aerosol Active 1 NMA INTRANASAL TWICE A DAY July 19, 2025 12:00am cholecalciferol 0.025 mg oral tablet (3 sources) Vitamin D Start: 07-19-2025 take 1 tablet by mouth once daily Cholecalciferol (Vitamin D3) 25 mcg (1,000 unit) tablet Active 25 ug PO daily July 19, 2025 12:00am Chondroitin Sulf A Sod (Bulk) (9 sources) [...] 2015 1:00am clopidogrel 75 mg oral tablet (20 sources) [id number] Platelet Inhibitor Start: 06-22-2025 End: 06-23-2026 take 1 tablet by mouth once daily clopidogrel (Plavix) 75 MG tablet Take 1 tablet (75 mg) by mouth daily. 30 tablet 1 06/23/2025 06/23/2026 Active Denosumab (Prolia) 60 mg/mL syringe (3 sources) Start: 07-19-2025 Denosumab (Prolia) 60 mg/mL syringe Active 60 mg SC every 6 months July 19, 2025 12:00am DULoxetine 20 mg delayed release oral capsule (14 sources) Serotonin and Norepinephrine Reuptake Inhibitor Start: 06-26-2025 End: 08-26-2025 take 1 capsule by mouth once daily DULoxetine (Cymbalta) [address] capsule Take 1 capsule (20 mg) by mouth daily. Do not crush or chew. 30 capsule 1 06/27/2025 08/26/2025 Active ezetimibe 10 mg oral tablet (20 sources) Dietary Cholesterol Absorption Inhibitor Start: 07-19-2025 take 1 tablet by mouth at bedtime Ezetimibe 10 mg tablet Active 10 mg PO AT BEDTIME July 19, 2025 12:00am Start: 06-24-2025 End: 06-27-2025 take 10 mg by mouth once daily 10 mg, Oral, Nightly, F irst dose on Tue06/24/25 at 2100 Start: 06-22-2025 End: 06-22-2025 Start: 06-22-2025 End: 06-22-2025 Start: 06-22-2025 End: 06-22-2026 take 1 tablet by mouth once daily ezetimibe (Zetia) 10 MG tablet Take 1 tablet (10 mg) by mouth Nightly. 30 tablet 1 06/22/2025 06/22/2026 Active Start: 06-17-2025 End: 06-18-2025 Qugwvdsjizx-Nmteqozwa-Flq C- Mn (9 sources) Start: 11-12-2015 Glucosamine-Ch ondroit-Vit C-Mn Active 1 EACH PO TWICE A DAY November 12, 2015 9:11am Start: 11-12-2015 Glucosamine-Ch ondroit-Vit C-Mn Active 1 EACH PO TWICE A DAY November 12, 2015 12:00am Start: 11-12-2015 Glucosamine-Ch ondroit-Vit C-Mn Active 1 EACH PO TWICE A DAY November 12, 2015 1:00am ipratropium bromide 0.021 mg/actuat metered dose nasal spray (3 sources) Anticholinergic Start: 07-19-2025 Ipratropium Br omide 21 mcg (0.03 %) spray,non-aerosol Active 2 NMA INTRANASAL EVERY 6 HOURS as needed July 19, 2025 12:00am levothyroxine (20 sources) l-Thyroxine Start: 06-30-2025 levothyroxine [...] 2015 1:00am lidocaine 0.04 mg/mg medicated patch (14 sources) Antiarrhythmic, Amide Local Anesthetic Start: 07-19-2025 Lidocaine (Aspercrem e (Lidocaine)) 4 % adhesive patch,medicated Active 1 NMA TOPICAL daily as needed July 19, 2025 12:00am Start: 06-26-2025 End: 07-05-2025 apply 1 dose transdermal route once daily Lidocaine 4 % patch Place 1 patch on the skin daily for 7 days. 7 patch 06/28/2025 07/05/2025 Active Start: 06-18-2025 End: 06-22-2025 Start: 06-18-2025 End: 06-18-2025 Infiltration, As needed, Sta rting on Tue06/18/25 at 1442, Anesthesia Intraprocedure Start: 06-16-2025 End: 06-18-2025 LORazepam 1 mg oral tablet (9 sources) Benzodiazepine Start: 07-19-2025 take 0.5 mg by mouth at bedtime Lorazepam 1 mg tablet Active 0.5 mg PO AT BEDTIME July 19, 2025 12:00am Start: 06-24-2025 End: 06-24-2025 0.5 mg, IntraVENous, Once, O n 06/24/25 at 1405, For 1 dose, For MRI For IV doses dilute dose with 1ml NS. End: 07-31-2025 take 1 tablet by mouth once daily LORazepam (Ativan) 1 MG tablet Take 1 mg by mouth Nightly. 07/31/2025 Discontinued (Med list cleanup) Magnesium (18 sources) Start: 11-12-2015 take 400 mg by [...] TWICE A DAY November 12, 2015 1:00am 24 hr metoprolol succinate 50 mg extended release oral tablet (20 sources) beta-Adrenergic Karlo Start: 06-22-2025 End: 06-23-2026 take 1 tablet by mouth once daily metoprolol succinate XL (Toprol-XL) 50 MG 24 hr tablet Take 1 tablet (50 mg) by mouth daily. Do not crush or chew. 30 tablet 1 06/23/2025 06/23/2026 Active Start: 06-20-2025 End: 06-22-2025 Multivitamins,Therapeutic (18 sources) Start: 11-12-2015 Multivitamins, Therapeutic Active November 12, 2015 9:11am Start: 11-12-2015 End: 01-25-2025 Multivitamins,Therapeutic Di scontinued November 12, 2015 1:00am January 25, 2025 2:12pm Start: 11-12-2015 Multivitamins, Therapeutic Active November 12, 2015 12:00am Start: 11-12-2015 Multivitamins, Therapeutic Active November 12, 2015 1:00am ondansetron 4 mg disintegrating oral tablet (4 sources) Serotonin-3 Receptor Antagonist Start: 07-19-2025 take 1 tablet by mouth every eight hours as needed Ondansetron 4 mg tablet,disintegrating Active 4 mg PO Q8H as needed July 19, 2025 12:00am Start: 06-18-2025 End: 06-18-2025 IntraVENous, As needed, Star ting on Tue06/18/25 at 1204, Anesthesia Intraprocedure pantoprazole 20 mg delayed release oral tablet (16 sources) Proton Pump Inhibitor Start: 07-19-2025 take 1 tablet by mouth twice daily Pantoprazole 20 mg tablet,delayed release (DR/EC) Active 20 mg PO TWICE A DAY July 19, 2025 9:12am Start: 06-20-2025 End: 06-22-2025 Start: 06-15-2025 End: 06-18-2025 Start: 01-25-2025 End: 07-19-2025 take 1 tablet by mouth once daily Pantoprazole 20 mg tablet,delayed release (DR/EC) Discontinued 20 mg PO daily January 25, 2025 1:00am July 19, 2025 9:14am rosuvastatin calcium 40 mg oral tablet (20 sources) HMG-CoA Reductase Inhibitor Start: 06-30-2025 take [...] End: 06-22-2025 tiZANidine 4 mg oral tablet (20 sources) Central alpha-2 Adrenergic Agonist Start: 01-25-2025 End: 07-19-2025 take 1 tablet by mouth every eight hours as needed Tizanidine 4 mg tablet Active 4 mg PO Q8H as needed July 19, 2025 9:13am Start: 01-25-2025 End: 06-18-2025 24 hr venlafaxine 37.5 mg extended release [...] Sig (Original) acetylcysteine 200 mg/ml inhalation solution (18 sources) Antidote, Mucolytic, Antidote for Acetaminophen Overdose Start: 11-12-2015 End: 01-25-2025 take 600 mg by mouth twice daily Acetylcysteine 6,000 MG/30 ML solution Discontinued 600 mg PO TWICE A DAY November 12, 2015 1:00am January 25, 2025 2:12pm 20 ml albumin human, penitentiary 250 mg/ml injection (3 sources) Human Serum Albumin Start: 06-18-2025 End: 06-22-2025 Start: 06-18-2025 End: 06-18-2025 IntraVENous, As needed, Star ting on 06/18/25 at 1406, Anesthesia Intraprocedure albuterol 0.833 mg/ml / ipratropium bromide 0.167 mg/ml inhalation solution (2 sources) Anticholinergic, beta2-Adrenergic Agonist Start: 06-18-2025 End: 06-22-2025 aminocaproic acid (Amicar) 10g in sodium chloride 0.9% 290 mL infusion (1 source) Start: 06-18-2025 End: 06-18-2025 IntraVENous, Continuous PRN, Starting on Tue06/18/25 at 1224, Anesthesia Intraprocedure amLODIPine 5 mg oral tablet (18 sources) Dihydropyridine Calcium Channel Karlo Start: 11-12-2015 End: 01-25-2025 take 1 tablet by mouth once daily Amlodipine 5 MG tablet Discontinued 5 mg PO DAILY November 12, 2015 1:00am January 25, 2025 2:12pm ascorbic acid 500 mg oral tablet (18 sources) Vitamin C Start: 11-12-2015 End: 01-25-2025 take 2 tablets by mouth once daily Ascorbic Acid (Vitamin C) (Vitamin C) 500 MG tablet Discontinued 1000 mg PO DAILY@0800 November 12, 2015 1:00am January 25, 2025 2:12pm atorvastatin 40 mg oral tablet (18 sources) HMG-CoA Reductase Inhibitor Start: 11-12-2015 End: 06-13-2025 take 1 tablet by mouth at bedtime Atorvastatin 40 MG tablet Discontinued 40 mg PO AT BEDTIME November 12, 2015 1:00am June 13, 2025 7:43pm biotin 10 mg oral capsule (18 sources) Start: 11-12-2015 End: 01-25-2025 take 1 capsule by mouth once daily Biotin (Chris Biotin) 10,000 MCG capsule Discontinued 83950 ug PO DAILY November 12, 2015 1:00am [...] mg / cholecalciferol 250 unt oral tablet (18 sources) Vitamin D Start: 11-12-2015 End: 01-25-2025 [...] Sulf A Sod (Bulk) 100 GM powder (9 sources) Start: 11-12-2015 End: 01-25-2025 Chondroitin Sulf A Sod (Bulk) 100 GM powder Discontinued 1200 mg MC TWICE A DAY November 12, 2015 1:00am January 25, 2025 2:12pm 1 ml dexamethasone phosphate 10 mg/ml injection (1 source) Corticosteroid Start: 06-18-2025 End: 06-18-2025 IntraVENous, As needed, Starting on Tue06/18/25 at 1204, Anesthesia Intraprocedure docusate sodium 50 mg / sennosides, penitentiary 8.6 mg oral tablet (8 sources) Start: [...] mg in sodium chloride 250 mL infusion ([id number]) (1 source) Start: 06-18-2025 End: 06-18-2025 IntraVENous, [...] Tue06/18/25 at 1203, Anesthesia Intraprocedure 20 ml fentaNYL 0.05 mg/ml injection (3 sources) Opioid Agonist Start: 06-18-2025 End: 06-18-2025 IntraVENous, As needed, Starting on Tue06/18/25 at 1203, Anesthesia Intraprocedure Start: 06-18-2025 End: 06-18-2025 furosemide 40 mg oral tablet (9 sources) Loop Diuretic Start: 06-23-2025 End: 07-16-2025 take 1 tablet by mouth once daily furosemide (Lasix) 40 MG tablet Take 1 tablet (40 mg) by mouth daily for 5 days. 5 tablet 06/23/2025 07/16/2025 Discontinued (Med list cleanup) Start: 06-21-2025 End: 06-21-2025 glucagon (rdna) 1 mg injection (2 sources) Antihypoglycemic Agent Start: 06-18-2025 End: 06-22-2025 Glucosamine-Owen droit-Vit C-Mn 1 EACH capsule (9 sources) Start: 11-12-2015 End: 01-25-2025 take 1 [...] hours PRN, agitation, second line for agitation, Bramwell PRN for ONLY if danger to self/others/treatment, [...] 06-20-2025 End: 06-21-2025 Start: 06-16-2025 End: 06-18-2025 lubiprostone 0.024 mg oral capsule (10 sources) Chloride Channel Activator Start: 06-13-2025 End: 07-19-2025 take 1 capsule by mouth twice daily Lubiprostone 24 mcg capsule Discontinued 24 ug PO TWICE A DAY June 13, 2025 12:00am July 19, 2025 9:14am magnesium hydroxide 80 mg/ml oral suspension (6 sources) Start: 06-14-2025 End: 06-22-2025 50 ml magnesium sulfate 40 mg/ml injection (1 source) Start: 06-18-2025 End: 06-18-2025 IntraVENous, Administer over 2 Hours, As needed, Starting on Tue06/18/25 at 1425, Anesthesia Intraprocedure melatonin 3 mg oral tablet (9 sources) Start: 06-24-2025 End: 07-27-2025 take 1 tablet by mouth once daily melatonin 3 MG tablet Take 1 tablet (3 mg) by mouth Nightly. 30 tablet 06/27/2025 07/16/2025 Discontinued (Med list cleanup) Start: 06-14-2025 End: 06-16-2025 metaxalone 800 mg oral tablet (18 sources) Start: 11-12-2015 End: 01-25-2025 take 1 [...] For RR Start: 06-19-2025 End: 06-22-2025 NIFEdipine (20 sources) Dihydropyridine Calcium Channel Karlo Start: 07-01-2025 [...] Start: 01-25-2025 take 1 tablet by dennis th once daily Nifedipine 30 mg tablet extended [...] (2 sources) Start: 06-18-2025 End: 06-19-2025 nystatin [id number] unt/ml oral suspension (13 sources) Polyene Antifungal Start: 01-03-2023 End: 01-24-2023 Nystatin 100,000 unit/mL suspension Discontinued 4 mL BUCCAL THREE TIMES A DAY 250 January 03, 2023 1:00am January 23, 2023 [...] omeprazole 20 mg delayed release oral capsule (18 sources) Proton Pump Inhibitor Start: 11-12-2015 End: 01-25-2025 take 1 capsule by mouth once daily Omeprazole 20 MG capsule Discontinued 20 mg PO DAILY November 12, 2015 1:00am January 25, 2025 2:10pm ondansetron ODT (Zofran-ODT) disintegrating tablet 4 mg (2 sources) Start: 06-24-2025 End: 06-27-2025 take 1 tablet by mouth every eight hours as needed for nausea and vomiting ondansetron ODT (Zofran-ODT) disintegrating tablet 4 mg oxyCODONE (11 sources) Opioid Agonist Start: 06-26-2025 End: 06-27-2025 take 1 tablet by mouth every six hours as needed for pain oxyCODONE (Roxicodone) immediate release tablet 2.5 mg Start: 06-22-2025 End: 07-16-2025 take 1 tablet by mouth every six hours as needed for pain oxyCODONE (Roxicodone) 5 MG immediate release tablet Indications: S/P CABG (coronary artery bypass graft) Take 1 tablet (5 mg) by mouth every 6 hours as needed for severe pain (7-10) (acute post surgical pain) for up to 5 days. 20 tablet 06/22/2025 07/16/2025 Discontinued (Med list cleanup) pantoprazole (ProtoNix) 40 mg in sodium chloride [...] MG/10ML injection (1 source) Start: 06-18-2025 End: 07-29-2025 IntraVENous, As needed, Starting on Tue06/18/25 at 1204, Anesthesia Intraprocedure polyethylene glycol 3350 37988 mg powder for oral solution (6 sources) Osmotic Laxative Start: 06-24-2025 End: 06-27-2025 take 17 g by mouth every twenty-four hours as needed for constipation 17 g, Oral, Daily PRN, constipation, Starting on Tue06/24/25 at 1403, 1st line for treatment of constipation - give scheduled if no bowel movement in past 24 hours. Start: 06-15-2025 End: 06-22-2025 potassium chloride 20 meq extended release oral tablet (7 sources) Start: 06-23-2025 End: 07-16-2025 take 1 tablet by mouth once daily potassium chloride CR (K-Tab) 20 MEQ ER tablet Take 1 tablet (20 mEq) by mouth daily for 5 days. Do not crush, chew, or split. 5 tablet 06/23/2025 07/16/2025 Discontinued (Med list cleanup) Start: 06-19-2025 End: 06-22-2025 predniSONE 20 mg oral tablet (18 sources) Start: 12-09-2021 End: 01-25-2025 take 1 tablet by mouth once daily Prednisone 20 mg tablet Discontinued 20 mg PO DAILY 10 10 0 December 09, 2021 1:00am January 25, 2025 2:12pm 100 ml propofol 10 mg/ml injection (3 sources) General Anesthetic Start: 06-18-2025 End: 06-19-2025 25 ml protamine sulfate (penitentiary) 10 mg/ml injection (1 source) Start: 06-18-2025 End: 06-18-2025 IntraVENous, As needed, Starting on Tue06/18/25 at 1501, Anesthesia Intraprocedure QUEtiapine 25 mg oral tablet (2 sources) Atypical Antipsychotic Start: 06-26-2025 End: 06-27-2025 take 12.5 mg by mouth twice daily as needed 12.5 mg, Oral, 2 times daily PRN, agitation, first line for agitation, Bramwell PRN for ONLY if danger to self/others/treatme [...] Start: 06-14-2025 End: 06-22-2025 sodium phosphate, dibasic 35.5 mg/ml / sodium phosphate, monobasic 96.4 mg/ml enema (2 sources) Start: 06-16-2025 End: 06-16-2025 5 ml sugammadex 100 mg/ml injection (2 sources) Start: 06-18-2025 End: 06-18-2025 traMADol hydrochloride 50 mg oral tablet (9 sources) Opioid Agonist Start: 01-25-2025 End: 07-19-2025 Tramadol 50 mg tablet Discontinued 50 mg PO NEEDED January 25, 2025 1:00am July 19, 2025 9:14am (8 sources) Start: 06-18-2025 End: 06-22-2025 [Order 1 Start] Name: magnesium sulfate IVPB premix 2,000 mg Signed Summary: [...] 06-18-2025 End: 06-22-2025 [Order 1 Start] Name: potass ium chloride IVPB 20 mEq Signed Summary: [...] Date Documented Da te Episodic/Chronic Abdominal pain (13 sources) Suprapubic pain; Translations: [Pelvic and perineal [...] Chronic Coronary atherosclerosis and other heart disease (20 sources) Exercise-induced angina; Translations: [Exertional angina] Onset: 06-14-2025 06-13-2025 Chronic Coronary atherosclerosis and other heart disease (2 sources) Presence of aortocoronary bypass graft; Translations: [Presence of aortocoronary bypass graft] Onset: 07-15-2025 Episodic Disorders of lipid metabolism (19 sources) Hypercholesterolemia; Translations: [Pure hypercholesterolemia, unspecified] Onset: 06-25-2025 06-13-2025 Chronic Fluid and electrolyte disorders (14 sources) Dehydration; Translations: [Dehydration] 09-13-2022 Episodic Malaise and fatigue (6 sources) Asthenia; Translations: [Weakness] Onset: 07-02-2025 06-28-2025 Episodic Mycoses (14 sources) Candidiasis of mouth; Translations: [Candidal stomatitis] 01-03-2023 Episodic Nonspecific chest pain (9 sources) Pain; Translations: [Precordial pain] Onset: 06-14-2025 [...] (HCC)] Onset: 06-14-2025 Chronic Other circulatory disease (10 sources) Elevated blood pressure; Translations: [Elevated blood-pressure [...] deficits] Onset: 06-24-2025 Episodic Other gastrointestinal disorders (9 sources) Irritable bowel syndrome; Translations: [Irritable bowel syndrome without diarrhea] 01-25-2025 Chronic Other lower respiratory disease (2 sources) Dyspnea; Translations: [Dyspnea, unspecified] 06-23-2025 Episodic Other non-traumatic joint disorders (3 sources) Pain in left knee; Translations: [Pain in left knee] Onset: 02-04-2022 Episodic Other screening for suspected conditions (not mental disorders or infectious disease) (14 sources) Raised cardiac enzyme or marker; Translations: [Other specified abnormal findings of blood chemistry] 06-13-2025 Episodic Residual codes; unclassified (13 sources) Altered mental status; Translations: [Altered mental status, unspecified] Onset: 06-24-2025 06-24-2025 Episodic Residual codes; unclassified (2 sources) Edema of lower extremity; Translations: [Localized edema] 06-25-2025 Episodic Residual codes; unclassified (2 sources) Altered mental status, unspecified; Translations: [Altered mental status, unspecified] Onset: 06-24-2025 Episodic Residual codes; unclassified (2 sources) Localized edema; Translations: [Localized edema] Onset: 06-24-2025 Episodic Spondylosis; intervertebral disc disorders; other back problems (14 sources) Other intervertebral disc degeneration, lumbar region; Translations: [Degeneration of cervical intervertebral disc] Onset: 04-07-2022 Chronic Sprains and strains (20 sources) Strain of muscle of chest wall; Translations: [Strain of muscle and tendon of front wall of thorax, initial encounter] Onset: 03-15-2022 Episodic Syncope (20 sources) Syncope; Translations: [Syncope and collapse] 09-13-2022 Episodic Thyroid disorders (15 sources) Hypothyroidism; Translations: [Hypothyroidism, unspecified] Onset: 07-19-2025 09-13-2022 Chronic Unclassified (2 sources) M54.12 - Radiculopathy, cervical region Unclassified (2 sources) History of three vessel coronary artery bypass Unclassified (2 sources) I25.10 - Atherosclerotic heart disease of [place] coronary artery without angina pectoris,Z95.1 - Presence of aortocoronary bypass graft Past or Other Problems Problem Classification Problem Date Documented Da te Episodic/Chronic Other gastrointestinal disorders (1 source) Change in bowel habit; Translations: [Change in bowel habit] Onset: 03-20-2025 Episodic Spondylosis; intervertebral disc disorders; other back problems (16 sources) Cervical radiculopathy; Translations: [Radiculopathy, cervical region] Onset: 01-25-2025 Episodic Results Test Name Value Interpretation Reference Range Facility Cardiac rehabilitation evalu ation reportOrdered By: Luis Ga on 08-01-2025 Study report [facility] Cardiac Rehab [address] [place] [address] CR - History & Physical MR#: [id number] Acct: [id number] Name: RICHIE ARMAS Rep #:[id number] : 1950 75 From: Luis Shaikh BS, RVT PCP: Dr. Narinder Crum MD DOS: 07/29/25 CR - History & Physical General Arrival date:: 07/29/25 Arrival time:: 14:08 Date of Referral:: 07/24/25 Date of CR Evaluation:: 07/29/25 Referring Physician: CABG Primary Diagnosis: Dr. Hong History of Present Cardiac Event Onset Date Coronary Artery Bypass Graft:: Yes (onset 06/14/25) Vessel: Left internal mammary to LAD, SVG to OM, SVG to PAD Medications Ambulatory Orders ?Medication ?Instructions ?Recorded alendronate 70 mg tablet 70 mg PO .weekly 01/25/25 levothyroxine 75 mcg tablet 75 mcg PO DAILY 01/25/25 nifedipine 30 mg tablet,extended 30 mg PO DAILY release venlafaxine 37.5 mg 37.5 mg PO DAILY depression 06/13/25 capsule,extended release 24 hr acetaminophen 500 mg tablet 1,000 mg PO Q8H PRN amitriptyline 50 mg tablet 100 mg PO QHS 07/19/25 aspirin 81 mg chewable tablet 1 tab PO QDAY 07/19/25 azelastine 137 mcg (0.1 %) nasal 1 spray intranasal BI D 07/19/25 spray cholecalciferol (vitamin D3) 25 25 mcg PO QDAY 5 mcg (1,000 unit) tablet clopidogrel 75 mg tablet 75 mg PO QDAY 07/19/25 denosumab 60 mg/mL subcutaneous 60 mg subcut [id number] 07/19/25 syringe (Prolia) duloxetine 20 mg capsule,delayed 20 mg PO QDAY 5 release ezetimibe 10 mg tablet 10 mg PO QHS 07/19/25 ipratropium bromide 21 mcg (0.03 2 spray intranasal Q6 H PRN 07/19/25 %) nasal spray lidocaine 4 % topical patch 1 patch topical QDAY PRN 0 07/19/25 (Aspercreme (lidocaine)) lorazepam 1 mg tablet 0.5 mg PO QHS 07/19/25 metoprolol succinate 50 mg 50 mg PO QDAY 07/19/25 tablet,extended release 24 hr ondansetron 4 mg disintegrating 4 mg PO Q8H PRN tablet pantoprazole 20 mg tablet,delayed 20 mg PO BID 5 release rosuvastatin 40 mg tablet 40 mg PO QDAY 07/19/25 tizanidine 4 mg tablet 4 mg PO Q8H PRN 07/19/25 Allergies Allergies cyclobenzaprine HCl (From Flexeril) Adverse Reaction (Verified 07/19/25 09:08) Other FEEL DISCONNECTED promethazine (From Phenergan) Adverse Reaction (Verified 07/19/25 09:08) Other Sleep Disorder Evaluation Hx of Sleep Apnea: No Do you snore loudly (louder than talking or can be heard through closed doors)?:No Do you often feel tired/ fatigued/ sleepy during daytime?: No Has anyone observed you stop breathing during sleep?: No History of Hypertension (for STOP score): No STOP Results: Negative Advanced Directives Advanced Directives Do you have a Healthcare Power of Tip Stretcher?: Yes Living Will: Yes Advance Directives Information Provided: No Advance Directives on File: No DNR Order?:: No Past Medical History Covid-19 Screening Physicial Symptoms Other Clinical Concerns Exposure Risk Pertinent Comorbidities 65 years or older:: Yes Has a serious heart condition:: Yes Past Medical Illness Past Medical History (Updated 07/22/25 @ 00:00 by Hermes Decker) CAD (coronary artery disease) I25.10 NSTEMI, initial episode of care I21.4 Hypercholesterolemia E78.00 Exertional angina I20.89 Elevated troponin R79.89 ACS (acute coronary syndrome) I24.9 Chronic idiopathic constipation K59.04 CKD (chronic kidney disease), 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 GERD (gastroesophageal reflux disease) K21.9 IBS (irritable bowel syndrome) K58.9 HTN (hypertension) I10 Raynaud disease I73.00 Fibromyalgia M79.7 Cataract H26.9 High cholesterol E78.00 Hypothyroidism E03.9 Past Surgical History Past Surgical History (Updated 07/24/25 @ 08:29 by Taniya Contreras RN) 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.1 Left internal mammary artery to LAD; Reverse saphenous vein graft to the obtuse marginal artery; Reverse saphenous vein graft to the right posterior descending artery Previous back surgery Z98.890 L4-L5 H/O wrist surgery Z98.890 right with hardware History of ankle surgery Z98.890 left with hardware placed H/O shoulder surgery Z98.890 Family History Summary Family History Father Heart disease CAD (coronary artery disease) Hypertension Myocardial infarction HLD (hyperlipidemia) Mother Hypertension Social History Smoking History Smoking Status: Never smoker Alcohol Use Alcohol Usage: Yes (rare) Occupation Occupation (List type of work in comments):: Retired Social Environment Status Marital Status: Current Living Arrangements Living Environment:: Spouse Children How many children do you have?: 2 Do any of your children live nearby?: No Safety Do you feel safe in your surroundings?: Yes Assistance Do you need any assistance at home?: no Review of Systems Review of Systems Hints Review of Present Symptoms: Reports Shortness of Breath with Exertion, Fatigue, Appetite - Normal, Appetite - Special Diet and Sleep - Normal; Denies Shortness of Breath at Rest, PVD, (more content not included)... [facility] No Panel InformationOrdered By: Luis Ga on 08-01-2025 [facility] Cardiac Rehab [address] [place] [address] CR - Individual Treatment Plan MR#: [id number] Acct: [id number] Name: RICHIE ARMAS Rep #:[id number] : 1950 75 From: Luis Shaikh BS, RVT PCP: Dr. Narinder Crum MD DOS: 07/29/25 Diagnosis General Information Admitting Diagnosis: CABG Personal Learning Style:: Audio/Visual Barriers to Learning: No Barriers Stage of change r/t lifestyle modifications:: Contemplation Gave educational material for:: Treating Heart Disease, How The Heart Works, What it means to have Heart Disease, How Coronary Artery Disease is Diagnosed, Heart Procedures, What Heart Medications Do, Risk Factors & Modifications, Living an Active Life, Nutrition, Emotions & Heart Disease, Stress Management & Relaxation and Sleep Disorders & Heart Disease Education/Goals Cardiac Rehabilitation Goals Personal Goals: Initial Assessment: Improve management of stress and emotions, Improve energy level, Improve knowledge of cardiac disease, Improve muscle strength and endurance and Control risk factors (learn risk factor modification) Scale for measuring improvement of personal goals Diagnosis & Disease Process Outcomes/Goals: Pt IDs own risk factors & lifestyle modifications by Session 10,Verbalizes symptoms of angina & response by session 3., Pt independently managesand Other Additional Outcomes/Goals: Plan/Interventions: Assist Pt to ID & engage in lifestyle modification to reduceCVD risk, Instruct on individual risk factors, Review symptoms of angina & emergency actions, Review secondary diagnosis & identify educational needs. and Other see comment 30 day Reassessments:: Not Met 30 day Reassessments:: Not Met 30 day Reassessments:: Not Met 30 day Reassessments:: Not Met Final Reassessments:: Not Met Safety Referral to Physical Therapy: No Referral to [facility] Case Management: No Fall Risk Assessed:: Yes Assistive Devices:: None Exercise - Initial Assessment Visit Date of Eval: 07/29/25 (initial eval ) Mets: Pre-: >3 METS for 30 minutes by discharge, >5 METS for 30 minutes by discharge, >7 METS for 30 minutes by discharge and Unable to meet goal due to: (see comment below) Physician Prescribed Exercise Modalities: Treadmill, [employer] Solutions[employer] Airdyne AD-7, SciFit Stepper, BlendinFit Pro-II Ergometer and SciFit Lateral [place] Frequency: 3x/week for 12 weeks [36 sessions] Intensity: 60-80% of age predicted maximum heart rate reserve Duration: 30 - 45 minutes Current METSs:: 3 Target Heart Rate:: 95-110 Resting Blood Pressure: 130/58 EKG Type: NSR Twave abnormality Outcomes & Goals Goals:: Verbalizes understanding of THR, RPE & goal METS by session 6, Documentsin home exercise log/reports 30 min aerobic 5 day/wk by DC, Demonstrates accurate pulse taking by DC and Other additional outcome/goals: see below Intervention & Plan Exercise Program Goals: Instruct on personal THR & RPE, Instruct on MET level & personal MET goal, Show patient to take own pulse /validate performance until accurate, Instruct on home exercise and Other additional plan/int Physical Activity Home Exercise Physical Activity - Home Exercise: Safe Exercise, Warm-up, Self-monitoring, Cool-Down, Home Exercise > 30 min Daily and Sitting Time <3 hours/daily Outcomes & Goals Outcomes/Goals: Demonstrates correct Warm-up/exercise Cool-Down (S3) if = 2.5 METs, Verbalizes symptoms of exercise intolerance by Session 3 (S3), Demonstratesafe equipment use (S3) & follows exercise prescrition (6) and Other: See below Intervention & Plan Plan/Intervention: Instruct warm-up & cool-down if exercising at > 2 METs, Instruct on symptoms of exercise intolerance & actions to take, Instruct & monitor on saf, Assess intial functional capacity & safety risk and Other See below Nutrition - Initial Assessment Program Goals Nutrition Program Goals Patient has diagnosis of Hyperlipidemia (ICD E78)?: Yes Visit Date of Eval: 07/29/25 (initial eval ) Cholesterol/Lipids (Other Core Measures) Determine presence & major risk factors that modify LDL goal: Hypertension or hypertensive medication, Low HDL cholesterol <40 mg/dL*, Family history of premature CHD in Male < 55 years: female <65 yearsFa and Age men > 45 years; women >/= 55 years Outcomes/Goals: Pt IDs own risk factors & lifestyle modifications by Session 10,Verbalizes symptoms of angina & response by session 3., Pt independently managesand Other Additional Outcomes/Goals: Intervention/Plan: Advocate for lipid panel cholesterol medication if applicable, Instruct on personal lipid levels & lipid goals/NCEP guidelines, Instruct on cholesterol and Other additional plan/int Referral to dietitian:: No (Declines at this time. Nutrition score of 6.) Diabetes (Other Core Measures) Diabetes Type: Not Applicable Weight Mgt (Other Care) Height: 5 ft 3 in Weight:: 136 lb BMI: 24.0 Diagnosis Overweight/Obesity BMI> 30% ICD-10 E66: No Diagnosis High BMI/Morbid Obesity BMI> 35% ICD-10 Z68: No Outcomes/Goals: Pt sets, maintains & shows weight loss goal & trend during rehaband Other miles (more content not included)... [facility] Progress Noteon 07-31-2025 Progress Note Normal [facility] CR - History AND Physicalon 07-29-2025 CR - History & Physical [facility] Cardiac Rehab [address] [place] [address] CR - History Physical MR#: [id number] Acct: [id number] Name: RICHIE ARMAS Rep #: [id number] : 1950 75 From: Luis GARCIA, RVT PCP: Dr. Narinder Crum MD DOS: 07/29/25 CR - History Physical General Arrival date:: 07/29/25 Arrival time:: 14:08 Date of Referral:: 07/24/25 Date of CR Evaluation:: 07/29/25 Referring Physician: CABG Primary Diagnosis: Dr. Hong History of Present Cardiac Event Onset Date Coronary Artery Bypass Graft:: Yes (onset 06/14/25) Vessel: Left internal mammary to LAD, SVG to OM, SVG to PAD Medications Ambulatory Orders ???Medication ???Instructions ???Recorded alendronate 70 mg tablet 70 mg PO .weekly 01/25/25 levothyroxine 75 mcg tablet 75 mcg PO DAILY 01/25/25 nifedipine 30 mg tablet,extended 30 mg PO DAILY 01/25/25 release venlafaxine 37.5 mg 37.5 mg PO DAILY depression capsule,extended release 24 hr acetaminophen 500 mg tablet 1,000 mg PO Q8H PRN 07/19/25 amitriptyline 50 mg tablet 100 mg PO QHS 07/19/25 aspirin 81 mg chewable tablet 1 tab PO QDAY 07/19/25 azelastine 137 mcg (0.1 %) nasal 1 spray intranasal BID 07/19/25 spray cholecalciferol (vitamin D3) 25 25 mcg PO QDAY 07/19/25 mcg (1,000 unit) tablet clopidogrel 75 mg tablet 75 mg PO QDAY 07/19/25 denosumab 60 mg/mL subcutaneous 60 mg subcut [id number] 07/19/25 syringe (Prolia) duloxetine 20 mg capsule,delayed 20 mg PO QDAY 07/19/25 release ezetimibe 10 mg tablet 10 mg PO QHS 07/19/25 ipratropium bromide 21 mcg (0.03 2 spray intranasal Q6H PRN 5 %) nasal spray lidocaine 4 % topical patch 1 patch topical QDAY PRN 07/19/25 (Aspercreme (lidocaine)) lorazepam 1 mg tablet 0.5 mg PO QHS 07/19/25 metoprolol succinate 50 mg 50 mg PO QDAY 07/19/25 tablet,extended release 24 hr ondansetron 4 mg disintegrating 4 mg PO Q8H PRN 07/19/25 tablet pantoprazole 20 mg tablet,delayed 20 mg PO BID 07/19/25 release rosuvastatin 40 mg tablet 40 mg PO QDAY 07/19/25 tizanidine 4 mg tablet 4 mg PO Q8H PRN 07/19/25 Allergies Allergies cyclobenzaprine HCl (From Flexeril) Adverse Reaction (Verified 07/19/25 09:08) Other FEEL DISCONNECTED promethazine (From Phenergan) Adverse Reaction (Verified 07/19/25 09:08) Other Sleep Disorder Evaluation Hx of Sleep Apnea: No Do you snore loudly (louder than talking or can be heard through closed doors)?: No Do you often feel tired/ fatigued/ sleepy during daytime?: No Has anyone observed you stop breathing during sleep?: No History of Hypertension (for STOP score): No STOP Results: Negative Advanced Directives Advanced Directives Do you have a Healthcare Power of Tip Stretcher?: Yes Living Will: Yes Advance Directives Information Provided: No Advance Directives on File: No DNR Order?:: No Past Medical History Covid-19 Screening Physicial Symptoms Other Clinical Concerns Exposure Risk Pertinent Comorbidities 65 years or older:: Yes Has a serious heart condition:: Yes Past Medical Illness Past Medical History (Updated 07/22/25 @ 00:00 by Hermes Decker) CAD (coronary artery disease) I25.10 NSTEMI, initial episode of care I21.4 Hypercholesterolemia E78.00 Exertional angina I20.89 Elevated troponin R79.89 ACS (acute coronary syndrome) I24.9 Chronic idiopathic constipation K59.04 CKD (chronic kidney disease), 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 GERD (gastroesophageal reflux disease) K21.9 IBS (irritable bowel syndrome) K58.9 HTN (hypertension) I10 Raynaud disease I73.00 Fibromyalgia M79.7 Cataract H26.9 High cholesterol E78.00 Hypothyroidism E03.9 Past Surgical History Past Surgical History (Updated 07/24/25 @ 08:29 by Taniya Contreras RN) 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.1 Left internal mammary artery to LAD; Reverse saphenous vein graft to the obtuse marginal artery; Reverse saphenous vein graft to the right posterior descending artery Previous back surgery Z98.890 L4-L5 H/O wrist surgery Z98.890 right with hardware History of ankle surgery Z98.890 left with hardware placed H/O shoulder surgery Z98.890 Family History Summary Family History Father Heart disease CAD (coronary artery disease) Hypertension Myocardial infarction HLD (hyperlipidemia) Mother Hypertension Social History Smoking History Smoking Status: Never smoker Alcohol Use Alcohol Usage: Yes (rare) Occupation Occupation (List type of work in comments):: Retired Social Environment Status Marital Status: Current Living Arrangements Living Environment:: Spouse Children How many children do you have?: 2 Do any of your children live nearby?: No Safety Do you feel safe in your surroundings?: Yes Assistance D (more content not included)... Normal [facility] Progress Noteon 07-26-2025 Progress Note Normal [facility] Progress Noteon 07-25-2025 Progress Note Normal [facility] Cardiology Visit Reporton Cardiology Visit Report [facility] [address] [place] [address] OFFICE VISIT Date of Service: 07/19/25 MR#: [id number] Acct: [id number] Name: RICHIE ARMAS Rep #: [id number] : 1950 Provider: BRAYDEN Huffman Age/Sex: 75/F Location: [facility] Status: Signed HPI HPI History of Present Illness Details: Richie Armas is a 75-year-old female who presents to office today for follow-up for monitoring her cardiovascular health. She presented to [facility] 06/13/2025 with concerns of exertional chest pain noticed about 2 weeks prior to presentation and noticed chest pain at rest which prompted her to seek out emergency evaluation. Her troponin was elevated at 93 and EKG in the ER demonstrated normal sinus rhythm with nonspecific ST???T wave changes new from prior. Patient was initiated on aspirin, heparin and nitroglycerin. She underwent cardiac catheterization 06/14/2025 and this demonstrated triple-vessel disease with a subtotally occluded RCA, 70% stenosis in the LAD and a high-grade obtuse marginal vessel. Ejection fraction was borderline at 50% with anterolateral hypokinesis. She was transferred to [facility] for further evaluation for CABG. Echocardiogram 06/15/2025 demonstrated ejection fraction of 50%. Patient underwent CABG 06/18/2025, immediate postoperative course was uncomplicated other than small left apical pneumothorax noted on chest x- ray prior to discharge that patient did not undergo intervention for and patient was discharged home 06/22/2025. She was discharged home on aspirin 81 mg daily, Plavix, metoprolol succinate, ezetimibe, rosuvastatin and nifedipine. Patient reports 4 days after returning home, she experienced slurred speech concerning for stroke and she presented to [facility] for emergency room evaluation. She reports understanding that workup was ultimately negative for an acute stroke; however, there were a few small lesions that were felt to be chronic/old stroke. She believes this was secondary to taking tizanidine. Patient discharged home. Several days later, patient experienced what she reports is psychosis and reports being admitted to a facility for this for 10 days. She was evaluated in the emergency department 07/14/2025 with acute concerns of chest pain times a few hours after an argument with her mother. She reported this pain was slightly different from her previous chest pain prior to her CABG. Workup in the emergency department demonstrated troponin 19???24, symptoms improved and patient was discharged home. Upon presentation today, patient reports difficulties sleeping and feels this has worsened since her CABG. She was previously taking trazodone; however, is not currently taking this. She is working with her PCP to address her sleeping concerns. She reports fatigue and weakness after surgery but feels this has been improving since being home. She has noticed LLE edema since her CABG. She notices a cough in the middle of the night that is productive and reports this is chronic. She reports episodes of lightheadedness that have improved since she has adjusted her BP meds and recommendations from her PCP. Patient reports all scars appear to be healing well. She denies an significant erythema, warmth or discharge. Further ROS below. 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[employer] Required: No Accompanied by: Is patient in pain?: Yes (generalized joint) Pain scale (1-10): 3 Allergies cyclobenzaprine HCl (From Flexeril) Adverse Reaction (Verified 07/19/25 09:08) Other promethazine (From Phenergan) Adverse Reaction (Verified 07/19/25 09:08) Other Medications ???Medication ???Instructions ???Recorded ???Confirmed ???Type alendronate 70 mg tablet 70 mg PO .weekly 01/25/25 07/19/25 History levothyroxine 75 mcg tablet 75 mcg PO DAILY 01/25/25 07/19/25 History nifedipine 30 mg tablet,extended 30 mg PO DAILY 01/25/25 07/19/25 H istory release venlafaxine 37.5 mg 37.5 mg PO DAILY depression 07/19/25 History capsule,extended release 24 hr acetaminophen 500 mg tablet 1,000 mg PO Q8H PRN 07/19/2507/19 History amitriptyline 50 mg tablet 100 mg PO QHS 07/19/25 07/19/25 Hi story aspirin 81 mg chewable tablet 1 tab PO QDAY 07/19/25 07/19/25 Hi story azelastine 137 mcg (0.1 %) nasal 1 spray intranasal BID 07/19/25 History spray cholecalciferol (vitamin D3) 25 25 mcg PO QDAY 07/19/25 07/19/25 H istory mcg (1,000 unit) tablet clopidogrel 75 mg tablet 75 mg PO QDAY 07/19/25 07/19/25 Hi story denosumab 60 mg/m (more content not included)... Normal [facility] Progress Noteon 07-17-2025 Progress Note Normal [facility] 37on 07-16-2025 37 Weight restriction measures 1-4 weeks from date of surgery- 10lbs weight restriction: 07/16/25 5-8 weeks from date of surgery- 20lbs weight restriction approximate end date: Normal [facility] Progress Noteon 07-16-2025 Progress Note Normal [facility] 12 Lead EKGon 07-14-2025 12 Lead EKG [facility] Cardiovascular Services [address] [place] [address] 12 Lead EKG 07/14/25 1821 MR#: [id number] Acct: [id number] Name: RICHIE ARMAS Rep #: [id number] : 1950 75 From: Edil Hong MD Attending Dr: Status: DEP ER Ordering Dr: Tremaine You MD Date: 07/14/25 Location: ED Sex: F C Admitted: Test Reason : CP Blood Pressure : */* mmHG Vent. Rate : 76 BPM Atrial Rate : 76 BPM P-R Int : 156 ms QRS Dur : 82 ms QT Int : 384 ms P-R-T Axes : 63 53 137 degrees QTcB Int : 432 ms Normal sinus rhythm Possible Left atrial enlargement Nonspecific T wave abnormality Abnormal ECG Confirmed by HAL NUÑEZ, EDIL ([id number]), visual effects editor ENZO PATE ([id number]) on 07/15/2025 1:09:08 PM Referred By: YOEL Confirmed By: EDIL HONG MD 07/15/25 1309 Date Edil Hong MD CC: Dr. Tremaine You MD; Dr. Narinder Crum MD Signed Normal [facility] Absolute lymphocyte countOrd ered By: ED PROVIDER on 07-14-2025 Lymphocytes Auto (Unsp spec) [#/Vol] 2.48 10*3/uL 0.83-4.51 [facility] Absolute neutrophil countOrd ered By: ED PROVIDER on 07-14-2025 Neutrophils (Bld) [#/Vol] 3.2 10*3/uL 2.0-7.7 [facility] Anion gap in Serum or Plasma Ordered By: Tremaine You on 07-14-2025 Anion gap [Moles/Vol] 13 mmol/L 5-15 [facility] Automated lymphocyte count a s percentage of total leukocytesOrdered By: ED PROVIDER on 07-14-2025 Lymphocytes/100 WBC Auto (Unsp spec) 38.2 % - [facility] BUN/creatinine ratioOrdered By: Tremaine You on 07-14-2025 Urea nitrogen/Creatinine [Mass ratio] 31.7 mg/mg High 09-09 [facility] Basic Metabolic Profile (BMP )on 07-14-2025 BUN/CRE 31.7 RATIO High 09-09 [facility] Comment on above: Performed By: #### L 500.2500, L501.4021, L100.0100 #### [facility] [address] [place], [address] Calcium [Mass/Vol] 9.4 mg/dL Normal 7.6-11.0 [facility] Comment on above: Performed By: #### L 500.2500, L501.4021, L100.0100 #### [facility] [facility] [address] [place], [address] Chloride [Moles/Vol] 100 mmol/L Normal 98-108 [facility] Comment on above: Performed By: #### L 500.2500, L501.4021, L100.0100 #### [facility] [address] [place], [address] CO2 [Moles/Vol] 22.2 mmol/L Normal 21.0-32.0 [facility] Comment on above: Performed By: #### L 500.2500, L501.4021, L100.0100 #### [facility] [address] [place], [address] Creatinine [Mass/Vol] 0.68 mg/dL Low 0.70-1.20 [facility] Comment on above: Performed By: #### L 500.2500, L501.4021, L100.0100 #### [facility] [address] [place], [address] ECRCL 57.46 ml/min Normal 50-250 [facility] Comment on above: Performed By: #### L 500.2500, L501.4021, L100.0100 #### [facility] [address] [place], [address] GAP 13 Normal 5-15 [facility] Comment on above: Performed By: #### L 500.2500, L501.4021, L100.0100 #### [facility] [address] [place], [address] GFR/1.73 sq M.predicted among non-blacks MDRD (S/P/Bld) [Vol rate/Area] 91 mL/min/{1.73_m2} Normal >60 [facility] Comment on above: Result Comment: mL/m in/1.73m2 CKD-EPI Creatinine Equation (2020) Performed By: #### L 500.2500, L501.4021, L100.0100 #### [facility] [address] [place], [address] Glucose [Mass/Vol] 115 mg/dL High 70-99 [facility] Comment on above: Performed By: #### L 500.2500, L501.4021, L100.0100 #### [facility] [address] [place], [address] Potassium [Moles/Vol] 4.3 mmol/L Normal 3.3-5.1 [facility] Comment on above: Result Comment: Hemo lysis present, Results??could be affected. ?? Performed By: #### L 500.2500, L501.4021, L100.0100 #### [facility] [address] [place], [address] Sodium [Moles/Vol] 135 mmol/L Normal 133-145 [facility] Comment on above: Performed By: #### L 500.2500, L501.4021, L100.0100 #### [facility] [address] [place], [address] Urea nitrogen [Mass/Vol] 22 mg/dL High 4-19 [facility] Comment on above: Performed By: #### L 500.2500, L501.4021, L100.0100 #### [facility] [address] [place], [address] Basophil percentageOrdered B y: ED PROVIDER on 07-14-2025 Basophils/100 WBC (Bld) 0.6 % 0-1 [facility] CBC W/Diff, Automatedon 06-22 Absolute Lymph 2.48 X10 3/uL Normal 0.83-4.51 [facility] Comment on above: Performed By: #### L 500.2500, L501.4021, L100.0100 #### [facility] [address] [place], [address] Absolute Neut 3.2 X10 3/uL Normal 2.0-7.7 [facility] Comment on above: Performed By: #### L 500.2500, L501.4021, L100.0100 #### [facility] [address] [place], [address] Basophils/100 WBC (Bld) 0.6 % Normal 0-1 [facility] Comment on above: Performed By: #### L 500.2500, L501.4021, L100.0100 #### [facility] [address] [place], [address] Eosinophils/100 WBC (Bld) 1.1 % Normal 0-5 [facility] Comment on above: Performed By: #### L 500.2500, L501.4021, L100.0100 #### [facility] [address] [place], [address] Erythrocyte distribution width (RBC) [Ratio] 14.8 % High 11.6-14.6 [facility] Comment on above: Performed By: #### L 500.2500, L501.4021, L100.0100 #### [facility] [address] [place], [address] Hematocrit (Bld) [Volume fraction] 34.5 % Low 37-47 [facility] Comment on above: Performed By: #### L 500.2500, L501.4021, L100.0100 #### [facility] [address] [place], [address] Hemoglobin (Bld) [Mass/Vol] 11.3 g/dL Low 12.0-15.0 [facility] Comment on above: Performed By: #### L 500.2500, L501.4021, L100.0100 #### [facility] [address] [place], [address] IG% 0.300 Normal 0.0-0.9 [facility] Comment on above: Result Comment: IG% - Immature Granulocytes (promyelocytes, myelocytes and metamyelocytes) > 1% indicates that a LEFT SHIFT is Present. Performed By: #### L 500.2500, L501.4021, L100.0100 #### [facility] [address] [place], [address] Lymphocytes/100 WBC (Bld) 38.2 % Normal 19-41 [facility] Comment on above: Performed By: #### L 500.2500, L501.4021, L100.0100 #### [facility] [address] [place], [address] MCH (RBC) [Entitic mass] 30.9 pg Normal 27.0-32.0 [facility] Comment on above: Performed By: #### L 500.2500, L501.4021, L100.0100 #### [facility] [address] [place], [address] MCHC (RBC) [Mass/Vol] 32.8 g/dL Normal 32-36 [facility] Comment on above: Performed By: #### L 500.2500, L501.4021, L100.0100 #### [facility] [address] [place], [address] MCV (RBC) [Entitic vol] 94.3 fL Normal 81-99 [facility] Comment on above: Performed By: #### L 500.2500, L501.4021, L100.0100 #### [facility] [address] [place], [address] Monocytes/100 WBC (Bld) 10.6 % High 0-10 [facility] Comment on above: Performed By: #### L 500.2500, L501.4021, L100.0100 #### [facility] [address] [place], [address] Neutrophils/100 WBC (Bld) 49.2 % Normal 47-70 [facility] Comment on above: Performed By: #### L 500.2500, L501.4021, L100.0100 #### [facility] [address] [place], [address] Nucleated RBC (Bld) [#/Vol] 0 10*3/uL Normal 0-5 [facility] Comment on above: Performed By: #### L 500.2500, L501.4021, L100.0100 #### [facility] [address] [place], [address] Platelet mean volume (Bld) [Entitic vol] 9.9 fL Normal 6.2-12.0 [facility] Comment on above: Performed By: #### L 500.2500, L501.4021, L100.0100 #### [facility] [address] [place], [address] Platelets (Bld) [#/Vol] 355 10*3/uL Normal 150-450 [facility] Comment on above: Performed By: #### L 500.2500, L501.4021, L100.0100 #### [facility] [address] [place], [address] RBC (Bld) [#/Vol] 3.66 10*6/uL Low 4.2-5.4 [facility] Comment on above: Performed By: #### L 500.2500, L501.4021, L100.0100 #### [facility] [address] [place], [address] RDW SD 51.6 fl High 35.1-43.9 [facility] Comment on above: Performed By: #### L 500.2500, L501.4021, L100.0100 #### [facility] [address] [place], [address] WBC (Bld) [#/Vol] 6.5 10*3/uL Normal 4.4-11.0 [facility] Comment on above: Performed By: #### L 500.2500, L501.4021, L100.0100 #### [facility] [address] [place], [address] Carbon dioxide, total [Moles /volume] in Central venous bloodOrdered By: Tremaine You on 07-14-2025 CO2 [Moles/Vol] 22.2 mmol/L 21.0-32.0 [facility] Chest 1 View (Portable)on Chest 1 View (Portable) [facility] Services [address] [place] [address] Chest 1 View (Portable) MR#: [id number] Acct: [id number] Name: RICHIE ARMAS Rep #: [id number] : 1950 F 75 From: Selvin Barron DO PCP: Dr. Narinder Crum MD Status: PRE ER Study: Chest 1 View (Portable) Date of Exam: 07/14/25 Exam# [id number] Ordering Dr: Tremaine You MD PROCEDURE: CHEST 1 VIEW (PORTABLE) 07/14/2025 REASON FOR EXAM: CHEST PAIN. Open heart surgery June 18, 2025. Chest pain with shortness of breath. TECHNIQUE: Frontal view of the chest. COMPARISON: Chest radiograph June 28, 2025 FINDINGS: Hardware: Sternal wires. Heart: Normal size Lungs: Clear and expanded Bones: No aggressive bone process. Other: RAD/Chest 1 View (Portable) IMPRESSION: No acute process is detected. [facility] CC: Dr. Tremaine You MD; Dr. Narinder Crum MD Automotive Mechanical Engineer: Signed Normal [facility] Chloride assayOrdered By: Barrington You on 07-14-2025 Chloride [Moles/Vol] 100 mmol/L 98-108 [facility] Emergency Department Summary on 07-14-2025 Emergency Department Summary [facility] Medical Records Department [address] [place] [address] Emergency Department Summary 07/14/25 MR#: [id number] Acct: [id number] Name: RICHIE ARMAS Rep #: [id number] : 1950 75 From: Tremaine You MD PCP: Dr. Narinder Crum MD Status:REG ER Location: ED HPI History of Present Illness Chief Complaint: Chest Pain Narrative Narrative: 75-year-old female is status post triple bypass surgery at [facility] on 729 presents with chest pain that began a few hours ago after an argument with her mother. She began feeling chest pain/pressure, lightheadedness, that was somewhat different than her previous coronary artery disease/CO over a month ago. She relates history that she had CABG surgery, and 2 weeks ago was supposed to follow-up with her surgeon, but she had been at a rehabilitation facility for psychologic and medical reasons, but found out that the facility did not really treat medical patients. She was released recently, and has a follow-up appointment next week. She presents to the emergency department with chest pain and lightheadedness that has improved. [facility] Medical History NSTEMI, initial episode of care Hypercholesterolemia Exertional angina Elevated troponin ACS (acute coronary syndrome) Chronic idiopathic constipation CKD (chronic kidney disease), [...] Time cyclobenzaprine HCl (From AdvReac Other Verified 07/14/25 18:12 Flexeril) promethazine (From Phenergan) AdvReac Other Verified 07/14/25 18:12 Family History Father Heart disease CAD (coronary artery disease) Hypertension Myocardial infarction HLD (hyperlipidemia) Mother Hypertension Surgical History Previous back surgery H/O wrist surgery History of ankle surgery H/O shoulder surgery Social History household members: spouse Smoking Status: Never smoker alcohol intake: current alcohol intake frequency: holidays/special occasions only substance use type: does not use ROS ROS ED ROS Narrative Review of systems positive for chest pain and pressure, lightheadedness. She has had bilateral leg swelling status post CABG surgery. No exacerbating or alleviating factors. Triggered by argument with family. EXAM Physical Exam Narrative Exam Narrative: Afebrile. Vital signs noted. Nontoxic-appearing. Cardiovascular examination reveals a regular rate and rhythm. Lungs are clear to auscultation bilaterally. Abdomen soft and nontender with positive bowel sounds. No guarding or rebound. Neurological examination shows her to be awake, alert, oriented, and interactive, answering questions appropriately. Trace pedal edema bilaterally. Const Vital Signs: 07/14/25 18:12 07/14/25 19:12 07/14/25 19:17 Temperature 98.1 F Temperature Source Temporal Pulse Rate 80 68 Respiratory Rate 16 20 H Respiratory Effort Blood Pressure 152/70 H 153/62 H Blood Pressure Mean 97 92 Pulse Ox 100 100 Oxygen Delivery Method Room Air Room Air 07/14/25 19:19 07/14/25 20:00 07/14/25 21:00 Temperature Temperature Source Pulse Rate 70 69 Respiratory Rate 18 21 H Respiratory Effort Normal Non-Labored Blood Pressure 150/66 H 147/65 H Blood Pressure Mean 94 92 Pulse Ox 100 100 Oxygen Delivery Method Room Air Room Air MDM MDM MDM Narrative Medical decision making narrative: Differential diagnosis includes but not limited to ACS versus pneumonia versus pneumothorax. History and physical does not support pneumonia or pneumothorax. Her pulse ox 100% on room air without evidence of hypox (more content not included)... Normal [facility] Eosinophil percentageOrdered By: ED PROVIDER on 07-14-2025 Eosinophils/100 WBC (Bld) 1.1 % 0-5 [facility] Erythrocyte distribution wid th ratioOrdered By: ED PROVIDER on 07-14-2025 Erythrocyte distribution width (RBC) [Ratio] 14.8 % High 11.6-14.6 [facility] Erythrocyte distribution wid th standard deviationOrdered By: ED PROVIDER on 07-14-2025 Erythrocyte distribution width (RBC) [Ratio] 51.6 fl High 35.1-43.9 [facility] Glomerular filtration rate ( GFR) estimation/1.73 sq m using serum, plasma, or whole bOrdered By: Tremaine You on 07-14-2025 GFR/1.73 sq M.predicted among non-blacks MDRD (S/P/Bld) [Vol rate/Area] 91 mL/min/{1.73_m2} >60 [facility] Comment on above: mL/min/1.73m2 CKD-EP I Creatinine Equation (2020) Hematocrit Auto (Bld) [Volum e fraction]Ordered By: ED PROVIDER on 07-14-2025 Hematocrit (Bld) [Volume fraction] 34.5 % Low 37-47 [facility] Hemoglobin measurementOrdere d By: ED PROVIDER on 07-14-2025 Hemoglobin (Bld) [Mass/Vol] 11.3 g/dL Low 12.0-15.0 [facility] Immature granulocytes/100 WB C Auto (Bld)Ordered By: ED PROVIDER on 07-14-2025 Immature granulocytes/100 WBC (Bld) 0.300 % 0.0-0.9 [facility] Comment on above: IG% - Immature Granu locytes (promyelocytes, myelocytes and metamyelocytes) > 1% indicates that a LEFT SHIFT is Present. L501.4021on 07-14-2025 Trop T High Sen 19 ng/L High <=14 [facility] Comment on above: Performed By: #### L 500.2500, L501.4021, L100.0100 #### [facility] [address] [place], [address] MCV (mean corpuscular volume ) determinationOrdered By: ED PROVIDER on 07-14-2025 MCV (RBC) [Entitic vol] 94.3 fL 81-99 [facility] Mean corpuscular hemoglobin (MCH) determinationOrdered By: ED PROVIDER on 07-14-2025 MCH (RBC) [Entitic mass] 30.9 pg 27.0-32.0 [facility] Mean corpuscular hemoglobin concentration (MCHC) determinationOrdered By: ED PROVIDER on 07-14-2025 MCHC (RBC) [Mass/Vol] 32.8 g/dL 32-36 [facility] Mean platelet volume determi nationOrdered By: ED PROVIDER on 07-14-2025 Platelet mean volume (Bld) [Entitic vol] 9.9 fL 6.2-12.0 [facility] Monocyte percentageOrdered B y: ED PROVIDER on 07-14-2025 Monocytes/100 WBC (Bld) 10.6 % High 0-10 [facility] Neutrophil percentageOrdered By: ED PROVIDER on 07-14-2025 Neutrophils/100 WBC (Bld) 49.2 % 47-70 [facility] Nucleated red blood cell per centageOrdered By: ED PROVIDER on 07-14-2025 Nucleated RBC/100 WBC (Bld) [Ratio] 0 % 0-5 [facility] Platelet countOrdered By: ED PROVIDER on 07-14-2025 Platelets (Bld) [#/Vol] 355 10*3/uL 150-450 [facility] Potassium measurement (mass/ volume)Ordered By: Tremaine You on 07-14-2025 Potassium (Unsp spec) [Mass/Vol] 4.3 mmol/L 3.3-5.1 [facility] Comment on above: Hemolysis present, R esults could be affected. RBC Auto (Bld) [#/Vol]Ordere d By: ED PROVIDER on 07-14-2025 RBC (Bld) [#/Vol] 3.66 10*6/uL Low 4.2-5.4 [facility] Serum creatinine measurement (mass/volume)Ordered By: Tremaine You on 07-14-2025 Creatinine [Mass/Vol] 0.68 mg/dL Low 0.70-1.20 [facility] Serum glucose measurement (m ass/volume)Ordered By: Tremaine You on 07-14-2025 Glucose [Mass/Vol] 115 mg/dL High 70-99 [facility] Serum or plasma calcium jill urement (mass/volume)Ordered By: Tremaine You on 07-14-2025 Calcium [Mass/Vol] 9.4 mg/dL 7.6-11.0 [facility] Serum or plasma urea nitroge n measurement (mass/volume)Ordered By: Tremaine You on 07-14-2025 Urea nitrogen [Mass/Vol] 22 mg/dL High 4-19 [facility] Sodium levelOrdered By: Tremaine You on 07-14-2025 Sodium [Moles/Vol] 135 mmol/L 133-145 [facility] Troponin T HS 2 HRon 025 Trop T High Sen 20 ng/L High <=14 [facility] Comment on above: Performed By: #### L 499.0042 #### [facility] [address] [place], [address] Troponin T HS 4 HRon 025 Trop T High Sen Normal <=14 [facility] Comment on above: Result Comment: Canc elled via OM: Order cancelled - Patient discharged Performed By: #### L 499.0042 #### [facility] [address] [place], [address] Troponin T.cardiac [Mass/vol ume] in Serum or Plasma by High sensitivity methodOrdered By: Tremaine You on 07-14-2025 Troponin T.cardiac High sensitivity method [Mass/Vol] 20 ng/L High <14 [facility] Troponin T.cardiac [Mass/vol ume] in Serum or Plasma by High sensitivity methodOrdered By: ED PROVIDER on 07-14-2025 Troponin T.cardiac High sensitivity method [Mass/Vol] 19 ng/L High <14 [facility] Comment on above: Delta: 93 on 5-1743 White blood cell (WBC) count Ordered By: ED PROVIDER on 07-14-2025 WBC (Bld) [#/Vol] 6.5 10*3/uL 4.4-11.0 [facility] CBC with DIFFERENTIALon 06-22 Basophils (Bld) [#/Vol] 0.0 10*3/uL Normal 0.0-0.1 [facility] Comment on above: Performed By: #### C BCD, CMP #### [facility] [address] [place] [address] Basophils/100 WBC (Bld) 0.9 % Normal 0.0-1.0 [facility] Comment on above: Performed By: #### C BCD, CMP #### [facility] [address] [place] [address] Eosinophils (Bld) [#/Vol] 0.1 10*3/uL Normal 0.0-0.4 [facility] Comment on above: Performed By: #### C BCD, CMP #### [facility] [address] [place] [address] Eosinophils/100 WBC (Bld) 1.5 % Normal 1.0-4.0 [facility] Comment on above: Performed By: #### C BCD, CMP #### [facility] [address] [place] [address] Hematocrit (Bld) [Volume fraction] 35.6 % Low 37.0-47.0 [facility] Comment on above: Performed By: #### C BCD, CMP #### [facility] [address] [place] [address] Hemoglobin (Bld) [Mass/Vol] 11.5 g/dL Low 12.0-16.0 [facility] Comment on above: Performed By: #### Jsoue SERNA, CMP #### [facility] [address] [place] [address] IG # 0.0 10*3/uL Normal 0.0-0.1 [facility] Comment on above: Performed By: #### C KAREEM, CMP #### [facility] [address] [place] [address] IG % 0.4 % Normal 0.0-1.0 [facility] Comment on above: Performed By: #### C KAREEM, CMP #### [facility] [address] [place] [address] Lymphocytes (Bld) [#/Vol] 1.6 10*3/uL Normal 1.3-4.4 [facility] Comment on above: Performed By: #### C KAREEM, CMP #### [facility] [address] [place] [address] Lymphocytes/100 WBC (Bld) 34.3 % Normal 27.0-41.0 [facility] Comment on above: Performed By: #### C KAREEM, CMP #### [facility] [address] [place] [address] MCV (RBC) [Entitic vol] 96.5 fL Normal 81.0-99.0 [facility] Comment on above: Performed By: #### C KAREEM, CMP #### [facility] [address] [place] [address] MEAN CORPUSCULAR HGB 31.2 pg High 27.0-31.0 [facility] Comment on above: Performed By: #### C KAREEM, CMP #### [facility] [address] [place] [address] MEAN CORPUSCULAR HGB CONC 32.3 g/dl Low 33.0-37.0 [facility] Comment on above: Performed By: #### C KAREEM, CMP #### [facility] [address] [place] [address] Monocytes (Bld) [#/Vol] 0.7 10*3/uL Normal 0.1-1.0 [facility] Comment on above: Performed By: #### C BCD, CMP #### [facility] [address] [place] [address] Monocytes/100 WBC (Bld) 14.7 % High 3.0-9.0 E [facility] Comment on above: Performed By: #### C BCD, CMP #### [facility] [address] [place] [address] Neutrophils (Bld) [#/Vol] 2.3 10*3/uL Normal 2.3-7.9 [facility] Comment on above: Performed By: #### C BCPrabhakar, CMP #### [facility] [address] [place] [address] Neutrophils/100 WBC (Bld) 48.2 % Normal 47.0-73.0 [facility] Comment on above: Performed By: #### C BCPrabhakar, CMP #### [facility] [address] [place] [address]71 NUCLEATED RED BLOOD CELL 0.0 10*3/uL Normal 0.0-0.0 [facility] Comment on above: Performed By: #### C BCPrabhakar, CMP #### [facility] [address] [place] [address] NUCLEATED RED BLOOD CELL 0.0 % Normal 0.0-0.0 [facility] Comment on above: Performed By: #### C BCPrabhakar, CMP #### [facility] [address] [place] [address] PLATELET COUNT AUTOMATED 383 10*3/uL Normal 130-400 [facility] Comment on above: Performed By: #### C BCD, CMP #### [facility] [address] [place] [address] Platelet mean volume (Bld) [Entitic vol] 9.5 fL Low 9.6-12.3 [facility] Comment on above: Performed By: #### C KAREEM, CMP #### [facility] [address] [place] [address] RBC (Bld) [#/Vol] 3.69 10*6/uL Low 4.10-5.10 [facility] Comment on above: Performed By: #### C KAREEM, CMP #### [facility] [address] [place] [address] RED CELL DISTRI WIDTH 15.2 % High 0-14.5 [facility] Comment on above: Performed By: #### C KAREEM, CMP #### [facility] [address] [place] [address] WBC (Bld) [#/Vol] 4.7 10*3/uL Low 4.8-10.8 [facility] Comment on above: Performed By: #### C KAREEM, CMP #### [facility] [address] [place] [address] COMPREHENSIVE METABOLIC PANE [place] 07-11-2025 Albumin [Mass/Vol] 3.6 g/dL Normal 3.4-5.0 [facility] Comment on above: Performed By: #### C KAREEM, CMP #### [facility] [address] [place] [address]227 ALP [Catalytic activity/Vol] 91 U/L Normal 46-116 [facility] Comment on above: Performed By: #### C BCPrabhakar, CMP #### [facility] [address] [place] [address]148 ALT [Catalytic activity/Vol] U/L Normal 5-49 [facility] Comment on above: Performed By: #### C BCD, CMP #### [facility] [address] [place] [address] AST [Catalytic activity/Vol] 18 U/L Normal 0-34 [facility] Comment on above: Performed By: #### C BCPrabhakar, CMP #### [facility] [address] [place] [address] Bilirubin [Mass/Vol] 0.4 mg/dL Normal 0.3-1.2 [facility] Comment on above: Performed By: #### C BCD, CMP #### [facility] [address] [place] [address] CALCIUM,TOTAL 9.1 md/dL Normal 8.7-10.4 [facility] Comment on above: Performed By: #### C BCD, CMP #### [facility] [address] [place] [address] Chloride [Moles/Vol] 103 mmol/L Normal 98-107 [facility] Comment on above: Performed By: #### C BCD, CMP #### [facility] [address] [place] [address] CO2 [Moles/Vol] 28 mmol/L Normal 20-31 [facility] Comment on above: Performed By: #### C BCD, CMP #### [facility] [address] [place] [address] Creatinine [Mass/Vol] 0.63 mg/dL Normal 0.55-1.02 [facility] Comment on above: Performed By: #### C BCD, CMP #### [facility] [address] [place] [address] EST GLOM FILT > 60 Normal [facility] Comment on above: Result Comment: Result [...] < 15 . Performed By: #### C BCD, CMP #### [facility] [address] [place] [address] ESTIMATED GLOM FILT RATE > 60 Normal [facility] Comment on above: Performed By: #### C BCD, CMP #### [facility] [address] [place] [address] Glucose [Mass/Vol] 96 mg/dL Normal 65-99 [facility] Comment on above: Performed By: #### C BCD, CMP #### [facility] [address] [place] [address] Potassium [Moles/Vol] 4.3 mmol/L Normal 3.4-5.1 [facility] Comment on above: Performed By: #### C BCD, CMP #### [facility] [address] [place] [address] Sodium [Moles/Vol] 139 mmol/L Normal 136-145 [facility] Comment on above: Performed By: #### C BCD, CMP #### [facility] [address] [place] [address] TOTAL PROTEIN 6.4 g/L Normal 5.7-8.2 [facility] Comment on above: Performed By: #### C BCD, CMP #### [facility] [address] [place] [address] Urea nitrogen [Mass/Vol] 13 mg/dL Normal 9-23 [facility] Comment on above: Performed By: #### C BCD, CMP #### [facility] [address] [place] [address] Progress Noteon 07-11-2025 Progress Note [facility] PROGRESS NOTEon 07-10-2025 Ring Sewer Report [place], [place] PROGRESS NOTE NAME: RICHIE ARMAS UNIT #: [id number] ROOM: [facility] DOCTOR: JACKELYN OCONNELLZOILA BIRTHDATE: [birth year] DOS: 07/10/2025 PSYCHIATRY PROGRESS NOTE CHIEF COMPLAINT: I'm a little overwhelmed right now. I'm feeling a little weak. REASON FOR ADMISSION: She was a transfer from [facility] where she went from home due to [...] had positive conversations with her son and sharon on the phone. She did not present [...] and date of . She is at [facility]. Mood is mildly depressed. Affect is slightly anxious. No jamin or hypomania. No delusions or paranoia. No SI or HI. She processes appropriately and her memory is intact. DIAGNOSES: * Major depressive disorder, severe, recurrent with psychotic symptoms. [place], [place] PROGRESS NOTE [id number] UNIT #: [id number] ROOM: 312 DOCTOR: ZOILA LANDAVERDE BIRTHDATE: [birth year] * Rule [...] of stay is approximately one more day. [facility] HC/SAG TID: [id number] CM:PNTRANS 1332 ZOILA JACKELYN [facility]OC[facility] 07/10/25 1433 interface Normal [facility] Progress Noteon 07-10-2025 Progress Note Normal [facility] PROGRESS NOTEon 07-09-2025 Ring Sewer Report [place], [place] PROGRESS NOTE NAME: RICHIE ARMAS UNIT #: [id number] ROOM: 312 DOCTOR: SHILA MAYNARD MD BIRTHDATE: [...] environment when psychiatrically stable. SHILA MAYNARD MD WP/MUK TID: [id number] CM:PNTRANS 0847 SHILA MAYNARD MD 07/09/25 0948 interface Normal [facility] [id number] 07-08-2025 [id number] Patient Choice Patient Name: RICHIE ARMAS Date of : 1950 [facility] PROGRESS NOTEon 07-08-2025 Ring Sewer Report [place], [place] PROGRESS NOTE NAME: RICHIE ARMAS UNIT #: [id number] ROOM: [facility] DOCTOR: SHILA MAYNARD MD BIRTHDATE: [birth year] DOS: [...] environment when psychiatrically stable. SHILA MAYNARD MD WP/KACY TID: [id number] CM:PNTRANS 0956 SHILA MAYNARD MD 07/08/25 1101 interface Normal [facility] PELVIS (1 OR 2 V)on 07-07-20 CRPELVIS Name: RICHIE ARMAS Phys: ESTEFANI ANTUNEZ DO : 1950 Age: 75 Sex: F Acct: [id number] Loc: 312 1 Exam Date: 07/07/2025 Status: ADM IN Radiology No: [id number] Unit No: [id number] EXAM# TYPE/EXAM RESULT [id number] RAD/PELVIS (1 OR 2 V) SEE REPORT [...] be correlated clinically. Signed by Monserrat Gutierrez [facility] PAGE 1 Signed Report (CONTINUED) Name: EDDIE ARMASYN Phys: ESTEFANI ANTUNEZ DO : 1950 Age: 75 Sex: F Acct: [id number] Loc: 312 1 Exam Date: 07/07/2025 Status: ADM IN Radiology No: [id number] Unit No: [id number] EXAM# TYPE/EXAM RESULT [id number] RAD/PELVIS (1 OR 2 V) SEE REPORT [address], [place] [address] REPORT SIGNED IN OTHER VENDOR SYSTEM 07/07/2025 Reported By: MONSERRAT GUTIERREZ D.O. CC: Technologist: DILMA HUFF Transcribed Date/Time: 07/07/2025 (1700) Automotive Mechanical Engineer: KAMLESH Printed Date/Time: 07/07/2025 (828) PAGE 2 Signed Report Normal [facility] PROGRESS NOTEon 07-07-2025 Ring Sewer Report [place], [place] PROGRESS NOTE NAME: RICHIE ARMAS UNIT #: [id number] ROOM: [facility] DOCTOR: KATHIE GLOVER APRN BIRTHDATE: [birth year] DOS: 07/07/2025 CHIEF COMPLAINT: I feel better this morning. REASON FOR ADMISSION: The patient was transferred from [facility] with increased psychosis, paranoia, depression, and altered [...] with her stepdaughter before going back to [place]; however, she did not get that opportunity. [...] 10 mg p.o. daily to target paranoia. [place], [place] PROGRESS NOTE NAME: RICHIE ARMAS [facility] [id number] UNIT #: [id number] ROOM: [facility] DOCTOR: KATHIE GLOVER APRN BIRTHDATE: [birth year] * We will encourage the [...] restrictive environment once she is psychiatrically stable. HOLLI Rangel/ADALGISA TID: [id number] CM:PNTRANS 0821 KATHIE GLOVER APRN 07/07/25 0923 interface Normal [facility] PROGRESS NOTEon 07-06-2025 Ring Sewer Report [place], [place] PROGRESS NOTE NAME: RICHIE ARMAS UNIT #: [id number] ROOM: 312 DOCTOR: KATHIE GLOVER APRN BIRTHDATE: [birth year] DOS: 07/06/2025 CHIEF COMPLAINT: I am doing much better. REASON FOR ADMISSION: The patient was transferred from [facility] where she came from home with increased [...] medication changes as she just at her [employer] increased yesterday. We will encourage the [...] discharged to the least restrictive environment once [place], [place] PROGRESS NOTE NAME: RICHIE ARMAS UNIT #: [id number] ROOM: [facility] DOCTOR: KATHIE GLOVER APRN BIRTHDATE: [birth year] she is psychiatrically stable. The above assessment and plan was discussed with Dr. Maynard and he is in agreement. Kathie Glover APRN S/EMILIA TID: [id number] CM:PNTRANS 1336 KATHIE GLOVER APRN 07/06/25 1441 interface Normal [facility] CBC with DIFFERENTIALon 06-21 Basophils (Bld) [#/Vol] 0.1 10*3/uL Normal 0.0-0.1 [facility] Comment on above: Performed By: #### C BCD #### [facility] [address] [place] [address] Basophils/100 WBC (Bld) 0.6 % Normal 0.0-1.0 E [facility] Comment on above: Performed By: #### C BCD #### [facility] [address] [place] [address] Eosinophils (Bld) [#/Vol] 0.0 10*3/uL Normal 0.0-0.4 [facility] Comment on above: Performed By: #### C BCD #### [facility] [address] [place] [address] Eosinophils/100 WBC (Bld) 0.5 % Low 1.0-4.0 [facility] Comment on above: Performed By: #### C BCD #### [facility] [address] [place] [address] Hematocrit (Bld) [Volume fraction] 36.1 % Low 37.0-47.0 [facility] Comment on above: Performed By: #### C BCD #### [facility] [address] [place] [address] Hemoglobin (Bld) [Mass/Vol] 11.5 g/dL Low 12.0-16.0 [facility] Comment on above: Performed By: #### C BCD #### [facility] [address] [place] [address] IG # 0.0 10*3/uL Normal 0.0-0.1 [facility] Comment on above: Performed By: #### C BCD #### [facility] [address] [place] [address] IG % 0.4 % Normal 0.0-1.0 [facility] Comment on above: Performed By: #### C BCD #### [facility] [address] [place] [address] Lymphocytes (Bld) [#/Vol] 2.0 10*3/uL Normal 1.3-4.4 [facility] Comment on above: Performed By: #### C BCD #### [facility] [address] [place] [address] Lymphocytes/100 WBC (Bld) 24.9 % Low 27.0-41.0 [facility] Comment on above: Performed By: #### C BCD #### [facility] [address] [place] [address] MCV (RBC) [Entitic vol] 96.5 fL Normal 81.0-99.0 [facility] Comment on above: Performed By: #### C BCD #### [facility] [address] [place] [address] MEAN CORPUSCULAR HGB 30.7 pg Normal 27.0-31.0 [facility] Comment on above: Performed By: #### C BCD #### [facility] [address] [place] [address] MEAN CORPUSCULAR HGB CONC 31.9 g/dl Low 33.0-37.0 [facility] Comment on above: Performed By: #### C BCD #### [facility] [address] [place] [address] Monocytes (Bld) [#/Vol] 0.9 10*3/uL Normal 0.1-1.0 [facility] Comment on above: Performed By: #### C BCD #### [facility] [address] [place] [address] Monocytes/100 WBC (Bld) 11.5 % High 3.0-9.0 [facility] Comment on above: Performed By: #### C BCD #### [facility] [address] [place] [address] Neutrophils (Bld) [#/Vol] 5.0 10*3/uL Normal 2.3-7.9 [facility] Comment on above: Performed By: #### C BCD #### [facility] [address] [place] [address] Neutrophils/100 WBC (Bld) 62.1 % Normal 47.0-73.0 [facility] Comment on above: Performed By: #### C BCD #### [facility] [address] [place] [address] NUCLEATED RED BLOOD CELL 0.0 10*3/uL Normal 0.0-0.0 [facility] Comment on above: Performed By: #### C BCD #### [facility] [address] [place] [address] NUCLEATED RED BLOOD CELL 0.0 % Normal 0.0-0.0 [facility] Comment on above: Performed By: #### C BCD #### [facility] [address] [place] [address] PLATELET COUNT AUTOMATED 598 10*3/uL High 130-400 [facility] Comment on above: Performed By: #### C BCD #### [facility] [address] [place] [address] Platelet mean volume (Bld) [Entitic vol] 9.3 fL Low 9.6-12.3 [facility] Comment on above: Performed By: #### C BCD #### [facility] [address] [place] [address] RBC (Bld) [#/Vol] 3.74 10*6/uL Low 4.10-5.10 [facility] Comment on above: Performed By: #### C BCD #### [facility] [address] [place] [address] RED CELL DISTRI WIDTH 15.2 % High 0-14.5 [facility] Comment on above: Performed By: #### C BCD #### [facility] [address] [place] [address] WBC (Bld) [#/Vol] 8.0 10*3/uL Normal 4.8-10.8 [facility] Comment on above: Performed By: #### C BCD #### [facility] [address] [place] [address] PROGRESS NOTEon 07-05-2025 Ring Sewer Report [place], [place] PROGRESS NOTE NAME: RICHIE ARMAS UNIT #: [id number] ROOM: [facility] DOCTOR: ZOILA LANDAVERDE BIRTHDATE: [birth year] DOS: 07/05/2025 PSYCHIATRY PROGRESS NOTE CHIEF COMPLAINT: I am doing pretty well. REASON FOR ADMISSION: She was admitted as a transfer from [facility] where she went from home due to [...] stronger now than it had been prior. [place], [place] PROGRESS NOTE NAME: RICHIE ARMAS UNIT #: [id number] ROOM: [facility] DOCTOR: JACKELYN OCHOAZOILA BIRTHDATE: [birth year] The nursing staff confirmed the [...] at a hospital but stated it was [facility]. She knows the president is [...] Major depres (more content not included)... Normal [facility] THYROID STIM HORMONE (HS)on 07-05-2025 THYROID STIM HORMONE (HS) 11.428 uIU/ml High 0.550-4.780 [facility] Comment on above: Performed By: #### T ####[facility] [address] [place] [address] PROGRESS NOTEon 07-04-2025 Ring Sewer Report [place], [place] PROGRESS NOTE NAME: RICHIE ARMAS UNIT #: [id number] ROOM: 312 DOCTOR: SHILA MAYNARD MD BIRTHDATE: [...] environment when psychiatrically stable. SHILA MAYNARD MD WP/AK TID: [id number] CM:PNTRANS 1240 SHILA MAYNARD MD 07/04/25 1341 interface Normal [facility] Progress Noteon 07-04-2025 Progress Note Normal [facility] PROGRESS NOTEon 07-03-2025 Ring Sewer Report [place], [place] PROGRESS NOTE NAME: PAWELEDDIE NEWELLYN UNIT #: [id number] ROOM: 309 DOCTOR: ZOILA LANDAVERDE BIRTHDATE: [birth year] DOS: 07/03/2025 PSYCHIATRY PROGRESS NOTE CHIEF COMPLAINT: I feel a little tired. I didn't sleep as well as I normally do. REASON FOR ADMISSION: She was admitted as a transfer from [facility] where she went from home due to [...] coronary bypass graft surgery on 06/18 at [facility]. She reports feeling a little tired and [...] is able to identify she is at [facility]. She is cooperative, but does appear tired. Her speech is regular rate and rhythm. Her mood is mildly depressed. Her affect seems mood congruent. Her thought process was linear and goal-directed. She does exhibit some underlying paranoia. Her attention and concentration were intact. She was able to perform serial 7 subtractions without difficulty. Her language is intact. Her immediate recall, recent and [place], [place] PROGRESS NOTE NAME: RICHIE ARMAS UNIT #: [id number] ROOM: 309 DOCTOR: JACKELYN [facility],ZOILA BIRTHDATE: [birth year] remote are intact. She is [...] stay is approximately 4-6 days. Zoila Sauceda [facility] HC/SAY TID: [id number] CM:PNTRANS 1312 ZOILA SAUCEDA [facility] 07/03/25 1414 interface Normal [facility] US VENOUS LOWER EXTREMITY LT on 07-03-2025 USVENLEL Name: RICHIE ARMAS Phys: KENZIE DO,ADOLPH Carias : 1950 Age: 75 Sex: F Acct: [id number] Loc: 309 1 Exam Date: 07/03/2025 Status: ADM IN Radiology No: [id number] Unit No: [id number] EXAM# TYPE/EXAM RESULT [id number] US/US VENOUS LOWER EXTREMITY LT SEE REPORT [...] imaging recommended. Signed by Henry Mendez MD [facility] PAGE 1 Signed Report (CONTINUED) Name: PAWELRICHIE Phys: ADOLPH ESPINO DO : 1950 Age: 75 Sex: F Acct: [id number] Loc: 309 1 Exam Date: 07/03/2025 Status: ADM IN Radiology No: [id number] Unit No: [id number] EXAM# TYPE/EXAM RESULT [id number] US/US VENOUS LOWER EXTREMITY LT SEE REPORT [address] [place] [address] REPORT SIGNED IN OTHER VENDOR SYSTEM 07/03/2025 Reported By: HENRY MENDEZ MD CC: Technologist: ROSANNA GILLESPIE Transcribed Date/Time: 07/03/2025 (4497) Automotive Mechanical Engineer: KAMLESH Printed Date/Time: 07/03/2025 (7427) PAGE 2 Signed Report Normal [facility] 36on 07-02-2025 36 Normal [facility] AMMONIAon 07-02-2025 Ammonia (P) [Moles/Vol] 12 umol/L Normal 11-32 E [facility] Comment on above: Performed By: #### V ITD, FOL, HBA1C, AMM, BMP, LIPID, CBCD, TSH ####[facility] [address] [place] [address] BASIC METABOLIC PANELon 06-21 CALCIUM,TOTAL 9.4 md/dL Normal 8.7-10.4 [facility] Comment on above: Performed By: #### V ITD, FOL, HBA1C, AMM, BMP, LIPID, CBCD, TSH ####[facility] [address] [place] [address] Chloride [Moles/Vol] 105 mmol/L Normal 98-107 [facility] Comment on above: Performed By: #### V ITD, FOL, HBA1C, AMM, BMP, LIPID, CBCD, TSH ####[facility] [address] [place] [address] CO2 [Moles/Vol] 25 mmol/L Normal 20-31 [facility] Comment on above: Performed By: #### V ITD, FOL, HBA1C, AMM, BMP, LIPID, CBCD, TSH ####[facility] [address] [place] [address] Creatinine [Mass/Vol] 0.69 mg/dL Normal 0.55-1.02 [facility] Comment on above: Performed By: #### V ITD, FOL, HBA1C, AMM, BMP, LIPID, CBCD, TSH ####[facility] [address] [place] [address] EST GLOM FILT > 60 Normal [facility] Comment on above: Result Comment: Result [...] FOL, HBA1C, AMM, BMP, LIPID, CBCD, TSH ####[facility] [address] [place] [address] ESTIMATED GLOM FILT RATE > 60 Normal [facility] Comment on above: Performed By: #### V ITD, FOL, HBA1C, AMM, BMP, LIPID, CBCD, TSH ####[facility] [address] [place] [address] Glucose [Mass/Vol] 113 mg/dL High 65-99 [facility] Comment on above: Performed By: #### V ITD, FOL, HBA1C, AMM, BMP, LIPID, CBCD, TSH ####[facility] [address] [place] [address] Potassium [Moles/Vol] 4.0 mmol/L Normal 3.4-5.1 [facility] Comment on above: Performed By: #### V ITD, FOL, HBA1C, AMM, BMP, LIPID, CBCD, TSH ####[facility] [address] [place] [address] Sodium [Moles/Vol] 140 mmol/L Normal 136-145 [facility] Comment on above: Performed By: #### V ITD, FOL, HBA1C, AMM, BMP, LIPID, CBCD, TSH ####[facility] [address] [place] [address] Urea nitrogen [Mass/Vol] 10 mg/dL Normal 9-23 [facility] Comment on above: Performed By: #### V ITD, FOL, HBA1C, AMM, BMP, LIPID, CBCD, TSH ####[facility] [address] [place] [address] CBC with DIFFERENTIALon 06-21 Basophils (Bld) [#/Vol] 0.1 10*3/uL Normal 0.0-0.1 [facility] Comment on above: Performed By: #### V ITD, FOL, HBA1C, AMM, BMP, LIPID, CBCD, TSH ####[facility] [address] [place] [address] Basophils/100 WBC (Bld) 0.6 % Normal 0.0-1.0 E [facility] Comment on above: Performed By: #### V ITD, FOL, HBA1C, AMM, BMP, LIPID, CBCD, TSH ####[facility] [address] [place] [address] Eosinophils (Bld) [#/Vol] 0.1 10*3/uL Normal 0.0-0.4 [facility] Comment on above: Performed By: #### V ITD, FOL, HBA1C, AMM, BMP, LIPID, CBCD, TSH ####[facility] [address] [place] [address] Eosinophils/100 WBC (Bld) 0.8 % Low 1.0-4.0 [facility] Comment on above: Performed By: #### V ITD, FOL, HBA1C, AMM, BMP, LIPID, CBCD, TSH ####[facility] [address] [place] [address] Hematocrit (Bld) [Volume fraction] 35.8 % Low 37.0-47.0 [facility] Comment on above: Performed By: #### V ITD, FOL, HBA1C, AMM, BMP, LIPID, CBCD, TSH ####[facility] [address] [place] [address] Hemoglobin (Bld) [Mass/Vol] 11.1 g/dL Low 12.0-16.0 [facility] Comment on above: Performed By: #### V ITD, FOL, HBA1C, AMM, BMP, LIPID, CBCD, TSH ####[facility] [address] [place] [address] IG # 0.0 10*3/uL Normal 0.0-0.1 [facility] Comment on above: Performed By: #### V ITD, FOL, HBA1C, AMM, BMP, LIPID, CBCD, TSH ####[facility] [address] [place] [address] IG % 0.3 % Normal 0.0-1.0 [facility] Comment on above: Performed By: #### V ITD, FOL, HBA1C, AMM, BMP, LIPID, CBCD, TSH ####[facility] [address] [place] [address] Lymphocytes (Bld) [#/Vol] 2.3 10*3/uL Normal 1.3-4.4 [facility] Comment on above: Performed By: #### V ITD, FOL, HBA1C, AMM, BMP, LIPID, CBCD, TSH ####[facility] [address] [place] [address] Lymphocytes/100 WBC (Bld) 26.9 % Low 27.0-41.0 [facility] Comment on above: Performed By: #### V ITD, FOL, HBA1C, AMM, BMP, LIPID, CBCD, TSH ####[facility] [address] [place] [address] MCV (RBC) [Entitic vol] 98.6 fL Normal 81.0-99.0 E [facility] Comment on above: Performed By: #### V ITD, FOL, HBA1C, AMM, BMP, LIPID, CBCD, TSH ####[facility] [address] [place] [address] MEAN CORPUSCULAR HGB 30.6 pg Normal 27.0-31.0 [facility] Comment on above: Performed By: #### V ITD, FOL, HBA1C, AMM, BMP, LIPID, CBCD, TSH ####[facility] [address] [place] [address] MEAN CORPUSCULAR HGB CONC 31.0 g/dl Low 33.0-37.0 [facility] Comment on above: Performed By: #### V ITD, FOL, HBA1C, AMM, BMP, LIPID, CBCD, TSH ####[facility] [address] [place] [address] Monocytes (Bld) [#/Vol] 0.7 10*3/uL Normal 0.1-1.0 [facility] Comment on above: Performed By: #### V ITD, FOL, HBA1C, AMM, BMP, LIPID, CBCD, TSH ####[facility] [address] [place] [address] Monocytes/100 WBC (Bld) 8.2 % Normal 3.0-9.0 [facility] Comment on above: Performed By: #### V ITD, FOL, HBA1C, AMM, BMP, LIPID, CBCD, TSH ####[facility] [address] [place] [address] Neutrophils (Bld) [#/Vol] 5.5 10*3/uL Normal 2.3-7.9 [facility] Comment on above: Performed By: #### V ITD, FOL, HBA1C, AMM, BMP, LIPID, CBCD, TSH ####[facility] [address] [place] [address] Neutrophils/100 WBC (Bld) 63.2 % Normal 47.0-73.0 [facility] Comment on above: Performed By: #### V ITD, FOL, HBA1C, AMM, BMP, LIPID, CBCD, TSH ####[facility] [address] [place] [address] NUCLEATED RED BLOOD CELL 0.0 10*3/uL Normal 0.0-0.0 [facility] Comment on above: Performed By: #### V ITD, FOL, HBA1C, AMM, BMP, LIPID, CBCD, TSH ####[facility] [address] [place] [address] NUCLEATED RED BLOOD CELL 0.0 % Normal 0.0-0.0 [facility] Comment on above: Performed By: #### V ITD, FOL, HBA1C, AMM, BMP, LIPID, CBCD, TSH ####[facility] [address] [place] [address] PLATELET COUNT AUTOMATED 635 10*3/uL High 130-400 [facility] Comment on above: Performed By: #### V ITD, FOL, HBA1C, AMM, BMP, LIPID, CBCD, TSH ####[facility] [address] [place] [address] Platelet mean volume (Bld) [Entitic vol] 9.7 fL Normal 9.6-12.3 [facility] Comment on above: Performed By: #### V ITD, FOL, HBA1C, AMM, BMP, LIPID, CBCD, TSH ####[facility] [address] [place] [address] RBC (Bld) [#/Vol] 3.63 10*6/uL Low 4.10-5.10 [facility] Comment on above: Performed By: #### V ITD, FOL, HBA1C, AMM, BMP, LIPID, CBCD, TSH ####[facility] [address] [place] [address] RED CELL DISTRI WIDTH 15.6 % High 0-14.5 [facility] Comment on above: Performed By: #### V ITD, FOL, HBA1C, AMM, BMP, LIPID, CBCD, TSH ####[facility] [address] [place] [address] WBC (Bld) [#/Vol] 8.6 10*3/uL Normal 4.8-10.8 [facility] Comment on above: Performed By: #### V ITD, FOL, HBA1C, AMM, BMP, LIPID, CBCD, TSH ####[facility] [address] [place] [address] COMPREHENSIVE METABOLIC PANE [place] 07-02-2025 Albumin [Mass/Vol] 3.9 g/dL Normal 3.4-5.0 [facility] Comment on above: Performed By: #### C MP ####[facility] [address] [place] [address] ALP [Catalytic activity/Vol] 95 U/L Normal 46-116 [facility] Comment on above: Performed By: #### C MP ####[facility] [address] [place] [address] ALT [Catalytic activity/Vol] 7 U/L Normal 5-49 [facility] Comment on above: Performed By: #### C MP ####[facility] [address] [place] [address] AST [Catalytic activity/Vol] 28 U/L Normal 0-34 [facility] Comment on above: Performed By: #### C MP ####[facility] [address] [place] [address] Bilirubin [Mass/Vol] 0.7 mg/dL Normal 0.3-1.2 [facility] Comment on above: Performed By: #### C MP ####[facility] [address] [place] [address] CALCIUM,TOTAL 9.6 md/dL Normal 8.7-10.4 [facility] Comment on above: Performed By: #### C MP ####[facility] [address] [place] [address] Chloride [Moles/Vol] 99 mmol/L Normal 98-107 [facility] Comment on above: Performed By: #### C MP ####[facility] [address] [place] [address] CO2 [Moles/Vol] 29 mmol/L Normal 20-31 [facility] Comment on above: Performed By: #### C MP ####[facility] [address] [place] [address] Creatinine [Mass/Vol] 0.78 mg/dL Normal 0.55-1.02 [facility] Comment on above: Performed By: #### C MP ####[facility] [address] [place] [address] EST GLOM FILT > 60 Normal [facility] Comment on above: Result Comment: Result [...] 15 . Performed By: #### C MP ####[facility] [address] [place] [address] ESTIMATED GLOM FILT RATE > 60 Normal [facility] Comment on above: Performed By: #### C MP ####[facility] [address] [place] [address] Glucose [Mass/Vol] 95 mg/dL Normal 65-99 [facility] Comment on above: Performed By: #### C MP ####[facility] [address] [place] [address] Potassium [Moles/Vol] 4.3 mmol/L Normal 3.4-5.1 [facility] Comment on above: Result Comment: Specimen slightly hemolyzed. Potassium,Magnesium,LD,CK,AST,Iron,Ammonia and TIBC may be falsely increased. Phosphorous and Triglyceride may be falsely decreased Performed By: #### C MP ####[facility] [address] [place] [address] Sodium [Moles/Vol] 137 mmol/L Normal 136-145 [facility] Comment on above: Performed By: #### C MP ####[facility] [address] [place] [address] TOTAL PROTEIN 7.2 g/L Normal 5.7-8.2 [facility] Comment on above: Performed By: #### C MP ####[facility] [address] [place] [address] Urea nitrogen [Mass/Vol] 17 mg/dL Normal 9-23 [facility] Comment on above: Performed By: #### C MP ####[facility] [address] [place] [address] FOLIC ACIDon 07-02-2025 FOLIC ACID 8.93 ng/mL Normal 5.38-24.00 [facility] Comment on above: Result Comment: 0.35 - 3.7 ng/mL - Folate Deficiency 3.38 - 5.38 ng/mL - Indeterminate > 5.38 ng/mL - Normal Performed By: #### V ITD, FOL, HBA1C, AMM, BMP, LIPID, CBCD, TSH ####[facility] [address] [place] [address] WOV1Pds 07-02-2025 ESTIMATED AVERAGE GLUCOSE 108 Normal [facility] Comment on above: Performed By: #### V ITD, FOL, HBA1C, AMM, BMP, LIPID, CBCD, TSH ####[facility] [address] [place] [address] HbA1c (Bld) [Mass fraction] 5.4 % Normal 4.8-5.6 [facility] Comment on above: Result Comment: Standarization of method based on National Glycohemoglobin Standardization Program (NGSP). HEMOGLOBIN A1c(%) DEGREE of GLUCOSE CONTROL 5.7-6.4% Prediabetes range >6.4% Diagnosis of Diabetes <7% Glycemic control for adults with Diabetes Performed By: #### V ITD, FOL, HBA1C, AMM, BMP, LIPID, CBCD, TSH ####[facility] [address] [place] [address] LIPID PANELon 07-02-2025 Cholesterol [Mass/Vol] 168 mg/dL Normal <200 [facility] Comment on above: Performed By: #### V ITD, FOL, HBA1C, AMM, BMP, LIPID, CBCD, TSH ####[facility] [address] [place] [address] Cholesterol in HDL [Mass/Vol] 61 mg/dL High 40-60 [facility] Comment on above: Performed By: #### V ITD, FOL, HBA1C, AMM, BMP, LIPID, CBCD, TSH ####[facility] [address] [place] [address] Cholesterol in LDL [Mass/Vol] 87 mg/dL Normal 9-159 [facility] Comment on above: Performed By: #### V ITD, FOL, HBA1C, AMM, BMP, LIPID, CBCD, TSH ####[facility] [address] [place] [address] Triglyceride [Mass/Vol] 99 mg/dL Normal <150 E [facility] Comment on above: Result Comment: TRIGLYCERIDE RISK ASSESSMENT: 150-199 mg/dl BORDERLINE HIGH >200 mg//dl HIGH . Performed By: #### V ITD, FOL, HBA1C, AMM, BMP, LIPID, CBCD, TSH ####[facility] [address] [place] [address] VLDL CHOLESTEROL 20 mg/dL Normal 6-40 [facility] Comment on above: Performed By: #### V ITD, FOL, HBA1C, AMM, BMP, LIPID, CBCD, TSH ####[facility] [address] [place] [address] PATIENT HISTORY AND PHYSICAL EXAMon 07-02-2025 [employer] [place], [place] PATIENT HISTORY AND PHYSICAL EXAM NAME: RICHIE ARMAS UNIT #: [id number] ROOM: 309 DOCTOR: SHILA MAYNARD MD BIRTHDATE: [birth year] DOS: 07/02/2025 INITIAL PSYCHIATRIC EVALUATION CHIEF COMPLAINT: I think I am figuring things out. HISTORY OF PRESENT ILLNESS: This is a 75-year-old white female who was sent here from [facility] due to an altered mental status. The [...] environment once psychiatrically stable. SHILA MAYNARD MD [place], [place] PATIENT HISTORY AND PHYSICAL EXAM NAME: RICHIE ARMAS UNIT #: [id number] ROOM: 309 DOCTOR: SHILA MAYNARD MD BIRTHDATE: [birth year] WP/SAY TID: [id number] CM:HISPHYS:PATIENT HISTORY AND PHYSICAL EXAMINATION 0832 SHILA MAYNARD MD 07/02/25 0933 interface Normal [facility] Progress Noteon 07-02-2025 Progress Note Normal [facility] THYROID STIM HORMONE (HS)on 07-02-2025 THYROID STIM HORMONE (HS) 12.027 uIU/ml High 0.550-4.780 [facility] Comment on above: Performed By: #### V ITD, FOL, HBA1C, AMM, BMP, LIPID, CBCD, TSH ####[facility] [address] [place] [address] VITAMIN D, 25-HYDROXYon 06-21 VITAMIN D, 25-HYDROXY 57.0 ng/mL Normal 30-100 [facility] Comment on above: Result Comment: < 20 ng/mL - Vitamin D Deficiency 20 - 30 ng/mL - Vitamin D Insufficiency 30 - 100 ng/mL - Vitamin D sufficiency > 100 ng/mL - Vitamin D Toxicity Performed By: #### V ITD, FOL, HBA1C, AMM, BMP, LIPID, CBCD, TSH ####[facility] [address] [place] [address] Cardiac Cath Diagnosticon Cardiac Cath Diagnostic [facility] Imaging Services [address] [place] [address] Cardiac Cath Diagnostic MR#: [id number] Acct: [id number] Name: RICHIE ARMAS Rep #: [id number] : 1950 75 From: Edil Hong MD PCP: Dr. Narinder Crum MD Status:DIS IN Patient Name: RICHIE ARMAS Study Date: 06/14/2025 Performing: Edil Hong MD Ht: 63 inches 160.02 cm : 1950 Wt: 139.1 lbs 63 kg Age: 75 Gender: female BSA: 1.66 PROCEDURE(S) PERFORMED DC01-(50809)LHC/COR/LV CLINICAL PROFILE AND INDICATIONS Indications: Worsening Angina Heart Failure: None Stress/Imaging Stress/Image Study Performed: No CAD Presentations: Non-STEMI. 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 [...] multiple views using a 5 Fr. 4.0 [place] catheter. Left Coronary Artery selective angiography was performed in multiple views using a 5 Fr. 4.0 [place] catheter. Left Ventriculography was performed in PRINGLE [...] subtotally occluded in the midsegment with distal csqd-xn-ezylm collaterals noted. COMPLICATIONS No Complications PROCEDURE MEDICATIONS [...] DO Date Dictated: 06/14/25 1128 Date Transcribed: 06/14/251739 Automotive Mechanical Engineer: [place] Signed Normal [facility] UFENTSon 06-30-2025 Fentanyl (u) Negative Normal Negative [facility] Comment on above: Result Comment: Test ing has been performed FOR MEDICAL PURPOSES ONLY. Performed By: #### A DIFFFERNANDO, ANEU, ALC, GFR, AYAKA, CBC, CMP, ACETA #### [address] [address] UOXYSon 06-30-2025 Oxycodone (u) Negative Normal Negative [facility] Comment on above: Result Comment: Test ing has been performed FOR MEDICAL PURPOSES ONLY. Performed By: #### A DIFFFERNANDO, ANEU, ALC, GFR, AYAKA, CBC, CMP, ACETA #### [address] [address] .Auto Diffon 06-29-2025 Basophil, Absolute 0.1 10 3/mcL Normal 0.0-0.3 [facility] Comment on above: Performed By: #### A DIFFFERNANDO, ANEU, ALC, GFR, AYAKA, CBC, CMP, ACETA #### [address] [address] Basophils/100 WBC (Bld) 0.8 % Normal 0.0-2.5 [facility] Comment on above: Performed By: #### A DIFFFERNANDO, ANEU, ALC, GFR, AYAKA, CBC, CMP, ACETA #### [address] [address] Eosinophil, Absolute 0.0 10 3/mcL Normal 0.0-0.7 [facility] Comment on above: Performed By: #### A DIFF MDW, ANEU, ALC, GFR, AYAKA, CBC, CMP, ACETA #### [address] [address] Eosinophils/100 WBC (Bld) 0.1 % Normal 0.0-6.0 [facility] Comment on above: Performed By: #### A DIFF, MDW, ANEU, ALC, GFR, AYAKA, CBC, CMP, ACETA #### [address] [address] Lymphocyte, Absolute 1.5 10 3/mcL Normal 0.9-4.3 [facility] Comment on above: Performed By: #### A DIFF, MDW, ANEU, ALC, GFR, AYAKA, CBC, CMP, ACETA #### [address] [address] Lymphocytes/100 WBC (Bld) 12.7 % Low 20.0-40.0 [facility] Comment on above: Performed By: #### A DIFF, MDW, ANEU, ALC, GFR, AYAKA, CBC, CMP, ACETA #### [address] [address] Monocyte, Absolute 0.7 10 3/mcL Normal 0.1-1.4 [facility] Comment on above: Performed By: #### A DIFF, MDW, ANEU, ALC, GFR, AYAKA, CBC, CMP, ACETA #### [address] [address] Monocytes/100 WBC (Bld) 5.6 % Normal 2.0-13.0 [facility] Comment on above: Performed By: #### A DIFF, MDW, ANEU, ALC, GFR, AYAKA, CBC, CMP, ACETA #### [address] [address] Neutrophils/100 WBC (Bld) 80.8 % High 50.0-75.0 [facility] Comment on above: Performed By: #### A DIFF, MDW, ANEU, ALC, GFR, AYAKA, CBC, CMP, ACETA #### [address] [address] .GFRon 06-29-2025 Estimated Glomerular Filtration Rate 94 ml/min/1.73sqm Normal [facility] Comment on above: Result Comment: Stages of [...] ALC, GFR, AYAKA, CBC, CMP, ACETA #### [address] [address] .MDWon 06-29-2025 Monocyte Distribution Width 22.17 High 0.00-20.00 [facility] Comment on above: Result Comment: For adults in ED, MDW>20.0 may be associated with a higher risk of sepsis during the first 12hrs of hospital admission Performed By: #### A DIFF, MDW, ANEU, ALC, GFR, AYAKA, CBC, CMP, ACETA #### [address] [address] .NEUABSon 06-29-2025 Neutrophil, Absolute 9.6 10 3/mcL High 2.3-8.1 [facility] Comment on above: Performed By: #### A DIFF, MDW, ANEU, ALC, GFR, AYAKA, CBC, CMP, ACETA #### [address] [address] ACETAon 06-29-2025 Acetaminophen [Mass/Vol] 0.0 ug/mL Low 10.0-30.0 [facility] Comment on above: Performed By: #### A DIFF, MDW, ANEU, ALC, GFR, AYAKA, CBC, CMP, ACETA #### [place] [address] Renetta 06-29-2025 Ethanol Level 3 mg/dL Normal [facility] Comment on above: Performed By: #### A DIFF, MDW, ANEU, ALC, GFR, AYAKA, CBC, CMP, ACETA #### [address] [address] CBCon 06-29-2025 Erythrocyte distribution width (RBC) [Ratio] 15.6 % High 11.5-15.5 [facility] Comment on above: Performed By: #### A DIFF, MDW, ANEU, ALC, GFR, AYAKA, CBC, CMP, ACETA #### [place] [address] Hematocrit (Bld) [Volume fraction] 34.3 % Normal 34.0-46.0 [facility] Comment on above: Performed By: #### A DIFF, MDW, ANEU, ALC, GFR, AYAKA, CBC, CMP, ACETA #### [place] [address] Hgb 11.3 G/dL Low 12.0-16.0 [facility] Comment on above: Performed By: #### A DIFF, MDW, ANEU, ALC, GFR, AYAKA, CBC, CMP, ACETA #### [place] [address] MCH (RBC) [Entitic mass] 30.9 pg Normal 27.0-33.0 [facility] Comment on above: Performed By: #### A DIFF, MDW, ANEU, ALC, GFR, AYAKA, CBC, CMP, ACETA #### [address] [address] MCHC 32.9 G/dL Normal 32.0-36.0 [facility] Comment on above: Performed By: #### A DIFF, MDW, ANEU, ALC, GFR, AYAKA, CBC, CMP, ACETA #### [place] [address] MCV (RBC) [Entitic vol] 94.0 fL Normal 80.0-99.0 [facility] Comment on above: Performed By: #### A DIFF, MDW, ANEU, ALC, GFR, AYAKA, CBC, CMP, ACETA #### [place] [address] Platelet 679 10 3/mcL High 150-450 [facility] Comment on above: Performed By: #### A FERNANDO THOMAS, ANEU, ALC, GFR, AYAKA, CBC, CMP, ACETA #### [address] [address] Platelet mean volume (Bld) [Entitic vol] 7.5 fL Normal 6.6-10.5 [facility] Comment on above: Performed By: #### A FERNANDO THOMAS, ANEU, ALC, GFR, AYAKA, CBC, CMP, ACETA #### [address] [address] RBC 3.65 10 6/mcL Low 4.10-5.30 [facility] Comment on above: Performed By: #### A FERNANDO THOMAS, ANEU, ALC, GFR, AYAKA, CBC, CMP, ACETA #### [address] [address] WBC 11.8 10 3/mcL High 4.5-10.8 [facility] Comment on above: Performed By: #### A FERNANDO THOMAS, ANEU, ALC, GFR, AYAKA, CBC, CMP, ACETA #### [address] [address] CMPon 06-29-2025 Albumin Level 4.2 G/dL Normal 3.4-4.8 [facility] Comment on above: Performed By: #### A FERNANDO THOMAS, ANEU, ALC, GFR, AYAKA, CBC, CMP, ACETA #### [address] [address] Albumin/Globulin [Mass ratio] 1.0 {ratio} Low 1.1-2.5 [facility] Comment on above: Performed By: #### A FERNANDO THOMAS, ANEU, ALC, GFR, AYAKA, CBC, CMP, ACETA #### [address] [address] ALP [Catalytic activity/Vol] 105 U/L Normal 40-135 [facility] Comment on above: Performed By: #### A FERNANDO THOMAS, ANEU, ALC, GFR, AYAKA, CBC, CMP, ACETA #### [address] [address] ALT [Catalytic activity/Vol] 19 U/L Normal 14-59 [facility] Comment on above: Performed By: #### A DIFF, MDW, ANEU, ALC, GFR, AYAKA, CBC, CMP, ACETA #### [address] [address] AST [Catalytic activity/Vol] 31 U/L Normal 10-40 [facility] Comment on above: Performed By: #### A DIFF, MDW, ANEU, ALC, GFR, AYAKA, CBC, CMP, ACETA #### [address] [address] Bili Total 0.7 mg/dL Normal 0.2-1.0 [facility] Comment on above: Result Comment: Use of this assay is not recommended for patients undergoing treatment with eltrombopag due to the potential for falsely elevated results. Performed By: #### A DIFF, MDW, ANEU, ALC, GFR, AYAKA, CBC, CMP, ACETA #### [address] [address] BUN/Creatinine Ratio 23 ratio Normal 7-27 [facility] Comment on above: Performed By: #### A DIFF, MDW, ANEU, ALC, GFR, AYAKA, CBC, CMP, ACETA #### [address] [address] Calcium [Mass/Vol] 10.3 mg/dL High 8.4-10.2 [facility] Comment on above: Performed By: #### A DIFF, MDW, ANEU, ALC, GFR, AYAKA, CBC, CMP, ACETA #### [address] [address] Chloride [Moles/Vol] 102 mmol/L Normal 98-107 [facility] Comment on above: Performed By: #### A DIFF, MDW, ANEU, ALC, GFR, AYAKA, CBC, CMP, ACETA #### [address] [address] CO2 [Moles/Vol] 28 mmol/L Normal 23-31 [facility] Comment on above: Performed By: #### A DIFF, MDW, ANEU, ALC, GFR, AYAKA, CBC, CMP, ACETA #### [place] [address] Creatinine [Mass/Vol] 0.61 mg/dL Normal 0.51-0.95 [facility] Comment on above: Performed By: #### A DIFF, MDW, ANEU, ALC, GFR, AYAKA, CBC, CMP, ACETA #### [place] [address] Electrolyte Balance 10.0 mEq/L Normal 4.0-15.0 [facility] Comment on above: Performed By: #### A DIFF, MDW, ANEU, ALC, GFR, AYAKA, CBC, CMP, ACETA #### [place] [address] Globulin 4.0 G/dL Normal 2.7-4.4 [facility] Comment on above: Performed By: #### A DIFF, MDW, ANEU, ALC, GFR, AYAKA, CBC, CMP, ACETA #### [place] [address] Glucose [Mass/Vol] 155 mg/dL High 83-110 [facility] Comment on above: Performed By: #### A DIFF, MDW, ANEU, ALC, GFR, AYAKA, CBC, CMP, ACETA #### [place] [address] Potassium [Moles/Vol] 4.2 mmol/L Normal 3.5-5.1 [facility] Comment on above: Performed By: #### A DIFF, MDW, ANEU, ALC, GFR, AYAKA, CBC, CMP, ACETA #### [place] [address] Sodium [Moles/Vol] 140 mmol/L Normal 136-145 [facility] Comment on above: Performed By: #### A DIFF, MDW, ANEU, ALC, GFR, AAYKA, CBC, CMP, ACETA #### [place] [address] Total Protein 8.2 G/dL Normal 6.4-8.2 [facility] Comment on above: Performed By: #### A DIFF, MDW, ANEU, ALC, GFR, AYAKA, CBC, CMP, ACETA #### [place] [address] Urea nitrogen [Mass/Vol] 14 mg/dL Normal 7-18 [facility] Comment on above: Performed By: #### A DIFF, MDW, ANEU, ALC, GFR, AYAKA, CBC, CMP, ACETA #### [place] [address] CVFLURVon 06-29-2025 FLU A PCR Negative Normal Negative [facility] Comment on above: Performed By: #### A DIFF, MDW, ANEU, ALC, GFR, AYAKA, CBC, CMP, ACETA #### [place] [address] FLU B PCR Negative Normal Negative [facility] Comment on above: Performed By: #### A DIFF, MDW, ANEU, ALC, GFR, AYAKA, CBC, CMP, ACETA #### [place] [address] RSV PCR Negative Normal Negative [facility] Comment on above: Performed By: #### A DIFF, MDW, ANEU, ALC, GFR, AYAKA, CBC, CMP, ACETA #### [place] [address] SARS-CoV-2 (COVID-19) RNA VIANEY+probe Ql (Unsp spec) Negative Normal Negative [facility] Comment on above: Result Comment: Resu lts [...] inaccurate positive results. Performed By: #### A DIFF, MDW, ANEU, ALC, GFR, AYAKA, CBC, CMP, ACETA #### [place] [address] LABORATORYOrdered By: Brad Tesfaye on 06-29-2025 Acetaminophen [...] 06-29-2025 Salicylate Level 1.2 mg/dL Low 2.8-20.0 [facility] Comment on above: Performed By: #### A FERNANDO THOMAS, ANEU, ALC, GFR, AYAKA, CBC, CMP, ACETA #### [place] [address] UDRUGon 06-29-2025 Amphetamine (u) Negative Normal Negative [facility] Comment on above: Performed By: #### A FERNANDO THOMAS, ANEU, ALC, GFR, AYAKA, CBC, CMP, ACETA #### [place] [address] Barbiturate (u) Negative Normal Negative [facility] Comment on above: Performed By: #### A FERNANDO THOMAS, ANEU, ALC, GFR, AYAKA, CBC, CMP, ACETA #### [place] [address] Benzodiazepine (u) Negative Normal Negative [facility] Comment on above: Performed By: #### A FERNANDO THOMAS, ANEU, ALC, GFR, AYAKA, CBC, CMP, ACETA #### [place] [address] Cannabinoid (u) Negative Normal Negative [facility] Comment on above: Performed By: #### A FENRANDO THOMAS, ANEU, ALC, GFR, AYAKA, CBC, CMP, ACETA #### [place] [address] Cocaine Ql (U) Negative Normal Negative [facility] Comment on above: Performed By: #### A FERNANDO THOMAS, ANEU, ALC, GFR, AYAKA, CBC, CMP, ACETA #### [place] [address] Methadone Ql (U) Negative Normal Negative [facility] Comment on above: Performed By: #### A FERNANDO THOMAS, ANEU, ALC, GFR, AYAKA, CBC, CMP, ACETA #### [address] [address] Opiate (u) Negative Normal Negative [facility] Comment on above: Performed By: #### A FERNANDO THOMAS, ANEU, ALC, GFR, AYAKA, CBC, CMP, ACETA #### [address] [address] PCP (u) Negative Normal Negative [facility] Comment on above: Performed By: #### A FERNANDO THOMAS, ANEU, ALC, GFR, AYAKA, CBC, CMP, ACETA #### [address] [address] Urine Drugs screened: See Below Normal [facility] Comment on above: Result Comment: This drug [...] ALC, GFR, AYAKA, CBC, CMP, ACETA #### [address] [address] URINon 06-29-2025 Color (U) Yellow Normal [facility] Comment on above: Performed By: #### U Jessica WALKEROXYS #### [place] [address] #### UDRUG, UADIP #### [address] [address] Glucose (U) [Mass/Vol] Negative Normal Negative [facility] Comment on above: Performed By: #### U Jessica WALKEROXYS #### [address] [address] #### UDRUG, UADIP #### [address] [address] Ketones Ql (U) Negative Normal Negative [facility] Comment on above: Performed By: #### U FENTS, UOXYS #### [place] [id number] #### UDRUG, UADIP #### [address] [address] UA Appear Clear Normal Clear [facility] Comment on above: Performed By: #### U FENTS, UOXYS #### [place] [id number] #### UDRUG, UADIP #### [address] [address] UA Blood Negative Normal Negative [facility] Comment on above: Performed By: #### U ROMEOS UOXYS #### [place] [id number] #### UDRUG, UADIP #### [address] [address] UA Leuk Est Negative Normal Negative [facility] Comment on above: Performed By: #### U FENTS UOXYS #### [place] [id number] #### UDRUG, UADIP #### [address] [address] UA Nitrite Negative Normal Negative [facility] Comment on above: Performed By: #### U FENTS UOXYS #### [place] [id number] #### UDRUG, UADIP #### [address] [address] UA pH 7.0 Normal 5.0 - 8.0 [facility] Comment on above: Performed By: #### U FENTS, UOXYS #### [place] [id number] #### UDRUG, UADIP #### [address] [address] UA Protein Trace Normal Negative [facility] Comment on above: Performed By: #### U ROMEOS UOXYS #### [place] [address] #### UDRUG, UADIP #### [address] [address] UA Spec Grav 1.015 Normal 1.015-1.025 [facility] Comment on above: Performed By: #### U FENTS, UOXYS #### [place] [id number] #### UDRUG, UADIP #### [address] [address] UA Specimen Type Not Given Normal [facility] Comment on above: Performed By: #### U FENTS, UOXYS #### [place] [id number] #### UDRUG, UADIP #### [address] [address] UA Urobilinogen 1.0 E.U./dL Normal 0.2-1.0 [facility] Comment on above: Performed By: #### U FENTS, UOXYS #### [place] [address] #### UDRUG, UADIP #### [address] [address] Urobilinogen (U) [Mass/Vol] Negative Normal Negative [facility] Comment on above: Performed By: #### U FENTS, UOXYS #### [place] [address] #### UDRUG, UADIP #### [address] [address] 12 Lead EKGon 06-28-2025 12 Lead EKG [facility] Cardiovascular Services [address] [place] [address] 12 Lead EKG 06/28/25 1556 MR#: [id number] Acct: [id number] Name: RICHIE ARMAS Rep #: [id number] : 1950 75 From: Edil Hong MD [...] >= 480 msec Abnormal ECG Confirmed by HAL NUÑEZ, EDIL ([id number]), visual effects editor ENZO PATE ([id number]) on 07/01/2025 1:05:48 PM Referred By: TRISH Confirmed By: EDIL HONG MD 07/01/25 1305 Date Edil Hong MD CC: Dr. Yefri Ritter DO; Dr. Narinder Crum MD; BRAYDEN Small Signed Normal [facility] Absolute lymphocyte countOrd ered By: Tammi Benedict on 06-28-2025 Lymphocytes Auto (Unsp spec) [#/Vol] 1.82 10*3/uL 0.83-4.51 [facility] Absolute neutrophil countOrd ered By: Tammi Benedict on 06-28-2025 Neutrophils (Bld) [#/Vol] 8.1 10*3/uL High 2.0-7.7 [facility] Anion gap in Serum or Plasma Ordered By: Tammi Benedict on 06-28-2025 Anion gap [Moles/Vol] 15 mmol/L 5-15 [facility] Automated lymphocyte count a s percentage of total leukocytesOrdered By: Tammi Benedict on 06-28-2025 Lymphocytes/100 WBC Auto (Unsp spec) 16.7 % Low 19-41 [facility] BUN/creatinine ratioOrdered By: Tammi Benedict on 06-28-2025 Urea nitrogen/Creatinine [Mass ratio] 18.3 mg/mg 10-20 [facility] Basic Metabolic Profile (BMP )on 06-28-2025 BUN/CRE 18.3 RATIO Normal 10-20 [facility] Comment on above: Performed By: #### L 500.2500, L501.4021, L100.0100 #### [facility] Laboratory [address] [place], [address] Calcium [Mass/Vol] 10.0 mg/dL Normal 7.6-11.0 [facility] Comment on above: Performed By: #### L 500.2500, L501.4021, L100.0100 #### [facility] [address] [place], [address] Chloride [Moles/Vol] 101 mmol/L Normal 98-108 [facility] Comment on above: Performed By: #### L 500.2500, L501.4021, L100.0100 #### [facility] [address] [place], [address] CO2 [Moles/Vol] 21.7 mmol/L Normal 21.0-32.0 [facility] Comment on above: Performed By: #### L 500.2500, L501.4021, L100.0100 #### [facility] [address] [place], [address] Creatinine [Mass/Vol] 0.68 mg/dL Low 0.70-1.20 [facility] Comment on above: Performed By: #### L 500.2500, L501.4021, L100.0100 #### [facility] [address] [place], [address] ECRCL 51.04 ml/min Normal 50-250 [facility] Comment on above: Performed By: #### L 500.2500, L501.4021, L100.0100 #### [facility] [address] [place], [address] GAP 15 Normal 5-15 [facility] Comment on above: Performed By: #### L 500.2500, L501.4021, L100.0100 #### [facility] [address] [place], [address] GFR/1.73 sq M.predicted among non-blacks MDRD (S/P/Bld) [Vol rate/Area] 91 mL/min/{1.73_m2} Normal >60 [facility] Comment on above: Result Comment: mL/m in/1.73m2 CKD-EPI Creatinine Equation (2020) Performed By: #### L 500.2500, L501.4021, L100.0100 #### [facility] [address] [place], [address] Glucose [Mass/Vol] 124 mg/dL High 70-99 [facility] Comment on above: Performed By: #### L 500.2500, L501.4021, L100.0100 #### [facility] [address] [place], [address] Potassium [Moles/Vol] 4.4 mmol/L Normal 3.3-5.1 [facility] Comment on above: Performed By: #### L 500.2500, L501.4021, L100.0100 #### [facility] [address] [place], [address] Sodium [Moles/Vol] 137 mmol/L Normal 133-145 [facility] Comment on above: Performed By: #### L 500.2500, L501.4021, L100.0100 #### [facility] [address] [place], [address] Urea nitrogen [Mass/Vol] 12 mg/dL Normal 4-19 [facility] Comment on above: Performed By: #### L 500.2500, L501.4021, L100.0100 #### [facility] [address] [place], [address] Basophil percentageOrdered B y: Tammi Benedict on 06-28-2025 Basophils/100 WBC (Bld) 0.5 % 0-1 [facility] Bilirubin Test strip Ql (U)O rdered By: Tammi Benedict on 06-28-2025 Bilirubin Ql (U) Negative Negative [facility] CBC W/Diff, Automatedon 08-0 Absolute Lymph 1.82 X10 3/uL Normal 0.83-4.51 [facility] Comment on above: Performed By: #### L 500.2500, L501.4021, L100.0100 #### [facility] [address] [place], [address] Absolute Neut 8.1 X10 3/uL High 2.0-7.7 [facility] Comment on above: Performed By: #### L 500.2500, L501.4021, L100.0100 #### [facility] [address] [place], [address] Basophils/100 WBC (Bld) 0.5 % Normal 0-1 [facility] Comment on above: Performed By: #### L 500.2500, L501.4021, L100.0100 #### [facility] [address] [place], [address] Eosinophils/100 WBC (Bld) 0.2 % Normal 0-5 [facility] Comment on above: Performed By: #### L 500.2500, L501.4021, L100.0100 #### [facility] [address] [place], [address] Erythrocyte distribution width (RBC) [Ratio] 15.5 % High 11.6-14.6 [facility] Comment on above: Performed By: #### L 500.2500, L501.4021, L100.0100 #### [facility] [address] [place], [address] Hematocrit (Bld) [Volume fraction] 31.8 % Low 37-47 [facility] Comment on above: Performed By: #### L 500.2500, L501.4021, L100.0100 #### [facility] [address] [place], [address] Hemoglobin (Bld) [Mass/Vol] 10.5 g/dL Low 12.0-15.0 [facility] Comment on above: Performed By: #### L 500.2500, L501.4021, L100.0100 #### [facility] [address] [place], [address] IG% 0.700 Normal 0.0-0.9 [facility] Comment on above: Result Comment: IG% - Immature Granulocytes (promyelocytes, myelocytes and metamyelocytes) > 1% indicates that a LEFT SHIFT is Present. Performed By: #### L 500.2500, L501.4021, L100.0100 #### [facility] [address] [place], [address] Lymphocytes/100 WBC (Bld) 16.7 % Low 19-41 [facility] Comment on above: Performed By: #### L 500.2500, L501.4021, L100.0100 #### [facility] [address] [place], [address] MCH (RBC) [Entitic mass] 31.4 pg Normal 27.0-32.0 [facility] Comment on above: Performed By: #### L 500.2500, L501.4021, L100.0100 #### [facility] [address] [place], [address] MCHC (RBC) [Mass/Vol] 33.0 g/dL Normal 32-36 [facility] Comment on above: Performed By: #### L 500.2500, L501.4021, L100.0100 #### [facility] [address] [place], [address] MCV (RBC) [Entitic vol] 95.2 fL Normal 81-99 [facility] Comment on above: Performed By: #### L 500.2500, L501.4021, L100.0100 #### [facility] [address] [place], [address] Monocytes/100 WBC (Bld) 7.7 % Normal 0-10 [facility] Comment on above: Performed By: #### L 500.2500, L501.4021, L100.0100 #### [facility] [address] [place], [address] Neutrophils/100 WBC (Bld) 74.2 % High 47-70 [facility] Comment on above: Performed By: #### L 500.2500, L501.4021, L100.0100 #### [facility] [address] [place], [address] Nucleated RBC (Bld) [#/Vol] 0 10*3/uL Normal 0-5 [facility] Comment on above: Performed By: #### L 500.2500, L501.4021, L100.0100 #### [facility] [address] [place], [address] Platelet mean volume (Bld) [Entitic vol] 10.0 fL Normal 6.2-12.0 [facility] Comment on above: Performed By: #### L 500.2500, L501.4021, L100.0100 #### [facility] [address] [place], [address] Platelets (Bld) [#/Vol] 583 10*3/uL High 150-450 [facility] Comment on above: Performed By: #### L 500.2500, L501.4021, L100.0100 #### [facility] [address] [place], [address] RBC (Bld) [#/Vol] 3.34 10*6/uL Low 4.2-5.4 [facility] Comment on above: Performed By: #### L 500.2500, L501.4021, L100.0100 #### [facility] [address] [place], [address] RDW SD 52.2 fl High 35.1-43.9 [facility] Comment on above: Performed By: #### L 500.2500, L501.4021, L100.0100 #### [facility] [address] [place], [address] WBC (Bld) [#/Vol] 10.9 10*3/uL Normal 4.4-11.0 [facility] Comment on above: Performed By: #### L 500.2500, L501.4021, L100.0100 #### [facility] [address] [place], [address] Carbon dioxide, total [Moles /volume] in Central venous bloodOrdered By: Tammi Benedict on 06-28-2025 CO2 [Moles/Vol] 21.7 mmol/L 21.0-32.0 [facility] Chest 1 View (Portable)on Chest 1 View (Portable) [facility] Imaging Services [address] [facility] [place] [address] Chest 1 View (Portable) MR#: [id number] Acct: [id number] Name: RICHIE ARMAS Rep #: [id number] : 1950 F 75 From: Albaro Lott MD PCP: Dr. Narinder Crum MD Status: DEP ER Study: Chest 1 View (Portable) Date of Exam: 06/28/25 Exam# [id number] Ordering Dr: Tammi Bendeict PROCEDURE: CHEST 1 VIEW (PORTABLE) 06/28/2025 REASON [...] IMPRESSION: No acute cardiopulmonary disease. Reading Location: [id number] CC: Dr. Narinder Crum MD; BRAYDEN Small Automotive Mechanical Engineer: Signed Normal [facility] Chloride assayOrdered By: Josselyn Benedict on 06-28-2025 Chloride [Moles/Vol] 101 mmol/L 98-108 [facility] Emergency Department Summary on 06-28-2025 Emergency Department Summary [facility] Medical Records Department [address] [place] [address] Emergency Department Summary 06/28/25 MR#: [id number] Acct: [id number] Name: RICHIE ARMAS Rep #: [id number] : 1950 75 From: Yefri Ritter DO PCP: Dr. Narinder Crum MD Status:DEP ER Location: ED HPI History of Present Illness Chief Complaint: Abn Labs Narrative Narrative: 75-year-old female with past medical history of HTN, HLD, recent CABG presents with 1 day of generalized weakness and states she would like her blood work checked. She presented to [facility] ED with chest pain and was diagnosed [...] vomiting or abdominal pain. No urinary symptoms. [facility] Medical History Chronic idiopathic constipation CKD [...] 98.7 F (more content not included)... Normal [facility] Eosinophil percentageOrdered By: Tammi Benedict on 06-28-2025 Eosinophils/100 WBC (Bld) 0.2 % 0-5 [facility] Erythrocyte distribution wid th ratioOrdered By: Tammi Benedict on 06-28-2025 Erythrocyte distribution width (RBC) [Ratio] 15.5 % High 11.6-14.6 [facility] Erythrocyte distribution wid th standard deviationOrdered By: Tammi Benedict on 06-28-2025 Erythrocyte distribution width (RBC) [Ratio] 52.2 fl High 35.1-43.9 [facility] Glomerular filtration rate ( GFR) estimation/1.73 sq m using serum, plasma, or whole bOrdered By: Tammi Benedict on 06-28-2025 GFR/1.73 sq M.predicted among non-blacks MDRD (S/P/Bld) [Vol rate/Area] 91 mL/min/{1.73_m2} >60 [facility] Comment on above: mL/min/1.73m2 CKD-EP I Creatinine Equation (2020) Hematocrit Auto (Bld) [Volum e fraction]Ordered By: Tammi Benedict on 06-28-2025 Hematocrit (Bld) [Volume fraction] 31.8 % Low 37-47 [facility] Hemoglobin measurementOrdere d By: Tammi Benedict on 06-28-2025 Hemoglobin (Bld) [Mass/Vol] 10.5 g/dL Low 12.0-15.0 [facility] Immature granulocytes/100 WB C Auto (Bld)Ordered By: Tammi Benedict on 06-28-2025 Immature granulocytes/100 WBC (Bld) 0.700 % 0.0-0.9 [facility] Comment on above: IG% - Immature Granu locytes (promyelocytes, myelocytes and metamyelocytes) > 1% indicates that a LEFT SHIFT is Present. Ketones Test strip Ql (U)Ord ered By: Tammi Benedict on 06-28-2025 Ketones Ql (U) Negative Negative [facility] MCV (mean corpuscular volume ) determinationOrdered By: Tammi Benedict on 06-28-2025 MCV (RBC) [Entitic vol] 95.2 fL 81-99 [facility] Mean corpuscular hemoglobin (MCH) determinationOrdered By: Tammi Benedict on 06-28-2025 MCH (RBC) [Entitic mass] 31.4 pg 27.0-32.0 [facility] Mean corpuscular hemoglobin concentration (MCHC) determinationOrdered By: Tammi Benedict on 06-28-2025 MCHC (RBC) [Mass/Vol] 33.0 g/dL 32-36 [facility] Mean platelet volume determi nationOrdered By: Tammi Benedict on 06-28-2025 Platelet mean volume (Bld) [Entitic vol] 10.0 fL 6.2-12.0 [facility] Microscopic analysis of urin e for red blood cells (RBC)Ordered By: Tammi Benedict on 06-28-2025 Microscopic analysis of urine for red blood cells (RBC) 0-5 SEEN /hpf 0-5 [facility] Monocyte percentageOrdered B y: Tammi Benedict on 06-28-2025 Monocytes/100 WBC (Bld) 7.7 % 0-10 [facility] Mucus LM Ql (Urine sed)Order ed By: Tammi Benedict on 06-28-2025 Mucus Ql (Urine sed) 0 SEEN /hpf [facility] Neutrophil percentageOrdered By: Tammi Benedict on 06-28-2025 Neutrophils/100 WBC (Bld) 74.2 % High 47-70 [facility] Nitrite Test strip Ql (U)Ord ered By: Tamim Benedict on 06-28-2025 Nitrite Ql (U) Negative Negative [facility] Nucleated red blood cell per centageOrdered By: Tammi Benedict on 06-28-2025 Nucleated RBC/100 WBC (Bld) [Ratio] 0 % 0-5 [facility] Platelet countOrdered By: Josselyn Benedict on 06-28-2025 Platelets (Bld) [#/Vol] 583 10*3/uL High 150-450 [facility] Potassium measurement (mass/ volume)Ordered By: Tammi Benedict on 06-28-2025 Potassium (Unsp spec) [Mass/Vol] 4.4 mmol/L 3.3-5.1 [facility] Protein Test strip Ql (U)Ord ered By: Tammi Benedict on 06-28-2025 Protein Ql (U) 15 mg/dl High Negative [facility] RBC Auto (Bld) [#/Vol]Ordere d By: Tammi Benedict on 06-28-2025 RBC (Bld) [#/Vol] 3.34 10*6/uL Low 4.2-5.4 [facility] Serum creatinine measurement (mass/volume)Ordered By: Tammi Benedict on 06-28-2025 Creatinine [Mass/Vol] 0.68 mg/dL Low 0.70-1.20 [facility] Serum glucose measurement (m ass/volume)Ordered By: Tammi Benedict on 06-28-2025 Glucose [Mass/Vol] 124 mg/dL High 70-99 [facility] Serum or plasma calcium jill urement (mass/volume)Ordered By: Tammi Benedict on 06-28-2025 Calcium [Mass/Vol] 10.0 mg/dL 7.6-11.0 [facility] Serum or plasma urea nitroge n measurement (mass/volume)Ordered By: Tammi Benedict on 06-28-2025 Urea nitrogen [Mass/Vol] 12 mg/dL 4-19 [facility] Sodium levelOrdered By: Tammi Benedict on 06-28-2025 Sodium [Moles/Vol] 137 mmol/L 133-145 [facility] Squamous epithelial cells de tection in urine sediment by light microscopyOrdered By: Tammi Benedict on 06-28-2025 Epithelial cells.squamous LM Ql (Urine sed) 0-5 SEEN /hpf 5-10 [facility] Urinalysis, Completeon 06-28 EPI,SQUAMOUS 0-5 SEEN Normal -10 [facility] Comment on above: Order Comment: CLEAN CATCH Performed By: #### L 400.0001 #### [facility] Laboratory [address] [place], [address] RBC 0-5 SEEN Normal 0-5 [facility] Comment on above: Order Comment: CLEAN CATCH Performed By: #### L 400.0001 #### [facility] [address] [place], [address] WBC 0-5 SEEN Normal 0-5 [facility] Comment on above: Order Comment: CLEAN CATCH Performed By: #### L 400.0001 #### [facility] [address] [place], [address] BACTERIA 0 SEEN Normal None Seen [facility] Comment on above: Order Comment: CLEAN CATCH Performed By: #### L 400.0001 #### [facility] [address] [place], [address] Mucus Ql (Urine sed) 0 SEEN Normal [facility] Comment on above: Order Comment: CLEAN CATCH Performed By: #### L 400.0001 #### [facility] [address] [place], [address] Urine clarityOrdered By: Kenya Benedict on 06-28-2025 Clarity (U) Clear Clear [facility] Urine color determinationOrd ered By: Tammi Benedict on 06-28-2025 Color (U) Straw Yellow [facility] Urine glucose detectionOrder ed By: Tammi Benedict on 06-28-2025 Glucose Ql (U) Normal mg/dl Normal [facility] Urine leukocyte esterase det ection by dipstickOrdered By: Tammi Benedict on 06-28-2025 Leukocyte esterase Test strip Ql (U) Negative Negative [facility] Urine pHOrdered By: Tammi mejía on 06-28-2025 pH (U) 6.5 [pH] 5.0 - 8.0 [facility] Urine sediment bacteria coun t by microscopy (number/high power field)Ordered By: Tammi Benedict on 06-28-2025 Bacteria LM.HPF (Urine sed) [#/Area] 0 /[HPF] None Seen [facility] Urine specific gravity measu rementOrdered By: Tammi Benedict on 06-28-2025 Specific gravity (U) [Rel density] 1.015 1.002-1.030 [facility] Urine urobilinogen measureme ntOrdered By: Tammi Benedict on 06-28-2025 Urobilinogen Ql (U) Normal mg/dl Normal [facility] White blood cell (WBC) count Ordered By: Tammi Benedict on 06-28-2025 WBC (Bld) [#/Vol] 10.9 10*3/uL 4.4-11.0 [facility] White blood cell countOrdere d By: Tammi Benedict on 06-28-2025 White blood cell count 0-5 SEEN /hpf 0-5 [facility] [id number] 06-27-2025 [id number] Home Health Care Services - [facility], [address] [id number] Patient/Family Choice Normal [facility] [id number] Normal [facility] [id number] Normal [facility] [id number] Discharged to home w ith family , [facility] wset up , son has resources . Patient has transport to home . [facility] [id number] Patient Choice Patient Name: RICHIE ARMAS Date of : 1950 Normal [facility] [id number] [facility] Cobalamin (Vitamin B12) [Mas s/Vol]on 06-27-2025 Interpretation and review of laboratory results Normal [facility] - Chemistry and C hemistry - challengeon 06-27-2025 Cobalamin (Vitamin B12) [Mass/Vol] 712 pg/mL 213 - 816 pg/mL [facility] Nursing Noteon 06-27-2025 Nursing Note Pt given discharge instructions with son present and . IV out. Tele off. 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 Pt apologetic about earlier behavior. Pt assured that all is well. Normal [facility] [id number] 06-26-2025 [id number] Normal [facility] [id number] 06-26-2025 [id number] [facility] Nursing Noteon 06-26-2025 Nursing Note Co sign Khushi murrell RN [facility] Nursing Note Normal [facility] Progress Noteon 06-26-2025 Progress Note Normal [facility] Normal [facility] Progress Note Nutrition rescreen completed. Chart reviewed. Patient to be monitored and followed by the diet a/c technician. BEENA Marcos Normal [facility] Progress Note Normal [facility] [id number] 06-25-2025 [id number] Patient is currently active with [facility] at Home. The patient is currently receiving SN/PT services through the agency. Associate Media Director to continue to follow. Normal [facility] [id number] 06-25-2025 [id number] PCP follow up scheduled. Follow up with Narinder Crum Tuesday at 2:50 PM Follow up from [facility]. [phone] Normal [facility] [id number] Normal [facility] CBC (HEMOGRAM)on 06-25-2025 Erythrocyte distribution width (RBC) [Ratio] 14.8 % Normal 11.5-15.0 [facility] Comment on above: Performed By: #### L AB294 ####Moisture Machine Tender: MIGUEL LEAL ([id number])[address] Hematocrit (Bld) [Volume fraction] 34.3 % Low 35.0-47.0 [facility] Comment on above: Performed By: #### L AB294 ####Moisture Machine Tender: MIGUEL LEAL ([id number])[address] Hemoglobin (Bld) [Mass/Vol] 10.9 g/dL Low 11.7-16.0 [facility] Comment on above: Performed By: #### L AB294 ####Moisture Machine Tender: MIGUEL [id number])[address] MCH (RBC) [Entitic mass] 30.1 pg Normal 26.0-34.0 [facility] Comment on above: Performed By: #### L AB294 ####Moisture Machine Tender: MIGUEL [id number])[facility] [place] [address] MCHC 31.8 % Normal 30.5-36.0 [facility] Comment on above: Performed By: #### L AB294 ####Moisture Machine Tender: MIGUEL LEAL ([id number])[facility] ([facility])[address] [place] [address] MCV (RBC) [Entitic vol] 94.8 fL Normal 77.0-99.0 [facility] Comment on above: Performed By: #### L AB294 ####Moisture Machine Tender: MIGUEL LEAL ([id number])[facility] ([facility])[address] [place] [address] Platelet mean volume (Bld) [Entitic vol] 10.1 fL Normal 9.0-12.7 [facility] Comment on above: Performed By: #### L AB294 ####Moisture Machine Tender: MIGUEL LEAL ([id number])[facility] ([facility])[address] [place] [address] Platelets (Bld) [#/Vol] 372 10*3/uL Normal 140-440 [facility] Comment on above: Performed By: #### L AB294 ####Moisture Machine Tender: MIGUEL LEAL ([id number])[facility] ([facility])[address] [place] [address] RBC (Bld) [#/Vol] 3.62 10*6/uL Low 3.80-5.20 [facility] Comment on above: Performed By: #### L AB294 ####Moisture Machine Tender: MIGUEL LEAL ([id number])[facility] ([facility])[address] [place] [address] WBC (Bld) [#/Vol] 6.5 10*3/uL Normal 3.6-10.7 [facility] Comment on above: Performed By: #### L [id number] ####Moisture Machine Tender: MIGUEL LEAL ([id number])[facility] ([facility])[address] [place] [address] CBC panel Auto (Bld)on 06-25 Erythrocyte distribution width (RBC) [Ratio] 14.8 % 11.5 - 15.0 % [facility] Hematocrit (Bld) [Volume fraction] 34.3 % Low 35.0 - 47.0 % [facility] Hemoglobin (Bld) [Mass/Vol] 10.9 g/dL Low 11.7 - 16.0 g/dL [facility] Interpretation and review of laboratory results Abnormal [facility] MCH (RBC) [Entitic mass] 30.1 pg 26.0 - 34.0 pg [facility] MCHC (RBC) [Mass/Vol] 31.8 % 30.5 - 36.0 % [facility] MCV (RBC) [Entitic vol] 94.8 fL 77.0 - 99.0 fL [facility] Platelet mean volume (Bld) [Entitic vol] 10.1 fL 9.0 - 12.7 fL [facility] Platelets (Bld) [#/Vol] 372 10*3/uL 140 - 440 10*3/uL [facility] RBC (Bld) [#/Vol] 3.62 10*6/uL Low 3.80 - 5.2 0 10*6/uL [facility] WBC (Bld) [#/Vol] 6.5 10*3/uL 3.6 - 10.7 10*3/uL [facility] COMPREHENSIVE METABOLIC PANE [place] 06-25-2025 Albumin [Mass/Vol] 3.6 g/dL Normal 3.4-4.8 [facility] Comment on above: Performed By: #### L [id number], [id number] ####Moisture Machine Tender: MIGUEL LEAL ([id number])[facility] ([facility])[address] [place] [address] ALP [Catalytic activity/Vol] 75 U/L Normal 40-150 [facility] Comment on above: Performed By: #### L [id number], [id number] ####Moisture Machine Tender: MIGUEL LEAL ([id number])[facility] ([facility])[address] [place] [address] ALT [Catalytic activity/Vol] 11 U/L Normal <30 [facility] Comment on above: Performed By: #### L [id number], [id number] ####Moisture Machine Tender: MIGUEL LEAL ([id number])[facility] ([facility])[address] [place] [address] Anion gap [Moles/Vol] 14 mmol/L High 3-13 [facility] Comment on above: Performed By: #### L [id number], [id number] ####Moisture Machine Tender: MIGUEL LEAL ([id number])[facility] ([facility])[address] [place] [address] AST [Catalytic activity/Vol] 40 U/L High <34 [facility] Comment on above: Performed By: #### L [id number], [id number] ####Moisture Machine Tender: MIGUEL LEAL ([id number])[facility] ([facility])[address] [place] [address] Bilirubin [Mass/Vol] 0.7 mg/dL Normal <1.2 [facility] Comment on above: Performed By: #### L [id number], [id number] ####Moisture Machine Tender: MIGUEL LEAL ([id number])[facility] ([facility])[address] [place] [address] Calcium [Mass/Vol] 9.0 mg/dL Normal 8.8-10.0 [facility] Comment on above: Performed By: #### L [id number], [id number] ####Moisture Machine Tender: MIGUEL LEAL ([id number])[facility] ([facility])[address] [place] [address] [place] Chloride [Moles/Vol] 106 mmol/L Normal 98-107 [facility] Comment on above: Performed By: #### L [id number], [id number] ####Moisture Machine Tender: MIGUEL LEAL ([id number])[facility])[address] [place] [address] CO2 [Moles/Vol] 20 mmol/L Low 23-31 [facility] Comment on above: Performed By: #### L [id number], LAB17 ####Moisture Machine Tender: MIGUEL LEAL ([id number])[facility] [place] [address] Creatinine [Mass/Vol] 0.68 mg/dL Normal 0.57-1.11 [facility] Comment on above: Performed By: #### L [id number], [id number] ####Moisture Machine Tender: MIGUEL LEAL ([id number])[facility] [place] [address] GLOMERULAR FILTRATION RATE ML/MIN/1.73 SQ M.PREDICTED >90.0 Normal >60.0 [facility] Comment on above: Result Comment: Calc ulation based on the Chronic Kidney Disease Epidemiology Collaboration (CKD-EPI) equation refit without adjustment for race Performed By: #### L [id number], [id number] ####Moisture Machine Tender: MIGUEL LEAL ([id number])[facility] ([facility])[address] [place] [address] Glucose [Mass/Vol] 104 mg/dL Normal 82-115 [facility] Comment on above: Performed By: #### L [id number], [id number] ####Moisture Machine Tender: MIGUEL LEAL ([id number])[facility] ([facility])[address] [place] [address] [place] Potassium [Moles/Vol] 3.6 mmol/L Normal 3.5-5.1 [facility] Comment on above: Result Comment: [facility] potassium values may be up to 0.5 mmol/L lower than serum values. Performed By: #### L [id number], LAB17 ####Moisture Machine Tender: MIGUEL LEAL ([id number])[facility] [place] [address] [place] Protein [Mass/Vol] 6.9 g/dL Normal 6.4-8.3 [facility] Comment on above: Performed By: #### L [id number], [id number] ####Moisture Machine Tender: MIGUEL LEAL ([id number])[facility] [place] [address] [place] Sodium [Moles/Vol] 140 mmol/L Normal 136-145 [facility] Comment on above: Performed By: #### L [id number], LAB17 ####Moisture Machine Tender: MIGUEL LEAL ([id number])[facility] ([facility])[address] [place] [address] Urea nitrogen [Mass/Vol] 11 mg/dL Normal 9-23 [facility] Comment on above: Performed By: #### L [id number], LAB17 ####Moisture Machine Tender: MIGUEL LEAL ([id number])[facility] ([facility] [place] [address] Comprehensive metabolic 1998 panelon 06-25-2025 Albumin [Mass/Vol] 3.6 g/dL 3.4 - 4.8 g/dL [facility] ALP [Catalytic activity/Vol] 75 U/L 40 - 150 U/L [facility] ALT [Catalytic activity/Vol] 11 U/L NINF - 30 U/L [facility] Anion gap [Moles/Vol] 14 mmol/L High 3 - 13 mmol/L [facility] AST [Catalytic activity/Vol] 40 U/L High NINF - 34 U/L [facility] Bilirubin [Mass/Vol] 0.7 mg/dL NINF - 1.2 mg/dL [facility] Calcium [Mass/Vol] 9 mg/dL 8.8 - 10. 0 mg/dL [facility] Chloride [Moles/Vol] 106 mmol/L 98 - 10 7 mmol/L [facility] CO2 [Moles/Vol] 20 mmol/L Low 23 - 31 mmol/L [facility] Creatinine [Mass/Vol] 0.68 mg/dL 0.57 - 1.11 mg/dL [facility] GFR/1.73 sq M.predicted (S/P/Bld) [Vol rate/Area] - PINF [facility] Comment on above: Calculation based on the Chronic Kidney Disease Epidemiology Collaboration (CKD-EPI) equation refit without adjustment for race Glucose [Mass/Vol] 104 mg/dL 82 - 115 mg/dL [facility] Interpretation and review of laboratory results Abnormal [facility] Potassium [Moles/Vol] 3.6 mmol/L 3.5 - 5.1 mmol/L [facility] Comment on above: Plasma potassium masood ues may be up to 0.5 mmol/L lower than serum values. Protein [Mass/Vol] 6.9 g/dL 6.4 - 8.3 g/dL [facility] Sodium [Moles/Vol] 140 mmol/L 136 - 145 mmol/L [facility] Urea nitrogen [Mass/Vol] 11 mg/dL 9 - 23 mg/dL [facility] Consulton 06-25-2025 Consult Normal [facility] Consult Normal [facility] ECG 12-LEADon 06-25-2025 ECG 12-LEAD IMPRESSION: Sinus rhythm Consider right ventricular hypertrophy Nonspecific T abnrm, anterolateral leads Electronically Signed On 06-25-2025 11:58:17 EDT by Thelma Lepe Normal [facility] HIGH SENSITIVITY TROPONIN, S ERIAL BASELINEon 06-25-2025 TROPONIN HS SERIAL BASELINE 73 ng/L High <=14 [facility] Comment on above: Result Comment: In i ndividuals presenting with symptoms > 2h, a baseline troponin <= 5 ng/L suggests acutecardiac injury is unlikely and further serial testing is generally not indicated. Performed By: #### L [id number], [id number] ####Moisture Machine Tender: MIGUEL LEAL ([id number])[address] HIGH SENSITIVITY TROPONIN, S ERIAL, SECOND TESTon 06-25-2025 2H TROPONIN HS (SERIAL 2ND TROPONIN) 78 ng/L High <=14 [facility] Comment on above: Result Comment: Risi ng or falling troponin delta between 2 ??? 15 ng/L as compared to baseline value requires a 3rd serial troponin Performed By: #### L [id number] ####Moisture Machine Tender: MIGUEL LEAL ([id number])[facility] ([facility])[address] [place] [address] No Panel Informationon 06-25 P [place] 49 degrees [facility] FL Interval 149 ms [facility] QRS [place] 97 degrees [facility] QRSD Interval 97 ms [facility] QT Interval 392 ms [facility] QTC Interval 459 ms [facility] T Wave [place] 206 degrees [facility] Sinus rhythm Consider right ventricular hypertrophy Nonspecific T abnrm, anterolateral leads Electronically Signed On 06-25-2025 11:58:17 EDT by Thelma Lepe Thelma Foreman MD - 06/25/2025 IMPRESSION: Sinus rhythm Consider right ventricular hypertrophy Nonspecific T abnrm, anterolateral leads Electronically Signed On 06-25-2025 11:58:17 EDT by Thelma Lepe [facility] 2h Troponin HS (Serial 2nd Troponin) 78 ng/L High NINF - 14 ng/L [facility] Comment on above: Rising or falling tr oponin delta between 2 15 ng/L as compared to baseline value requires a 3rd serial troponin Interpretation and review of laboratory results Abnormal [facility] Interpretation and review of laboratory results Abnormal [facility] Troponin HS Serial Baseline 73 ng/L High NINF - 14 ng/L [facility] Comment on above: In individuals prese nting with symptoms > 2h, a baseline troponin <= 5 ng/L suggests acute cardiac injury is unlikely and further serial testing is generally not indicated. [facility] Nursing Noteon 06-25-2025 Nursing Note Normal [facility] Progress Noteon 06-25-2025 Progress Note Normal [facility] Progress Note Normal [facility] US Heart TransthoracicOrdere d By: Blanca Block on 06-25-2025 Aortic Sinus Valsalva 3.6 cm [employer] [facility] Work Phone: [phone] Aortic Sinus Valsalva Index 2.18 cm/m2 [facility] Work Phone: Aortic valve Mean systole pressure gradient by US.doppler derived full Bernoulli 4 mmHg [facility] [email or web address] Work Phone: Aortic valve Orifice area by US 2.8 cm2 [facility] Work Phone: Aortic valve Peak systolic flow by US.doppler 1 m/s [facility] Work Phone: Ascending Aorta 3.2 cm [facility] [email or web address] Work Phone: Ascending Aorta Index 1.94 cm/m2 [employer] Work Phone: AV Area by Peak Velocity 1.5 cm2 [facility] Work Phone: AV Area by VTI 1.8 cm2 [facility] [employer] Work Phone: AV Peak Gradient 8 mmHg [facility] Work Phone: [phone] AV Peak Velocity 1.5 m/s [facility] Work Phone: [phone] AV Velocity Ratio 0.53 [facility] Work Phone: [phone] AV VTI 26.7 cm [facility] Work Phone: [phone] CHRISTOPHE/BSA Peak Velocity 0.9 cm2/m2 [facility] Work Phone: [phone] CHRISTOPHE/BSA VTI 1.1 cm2/m2 [facility] Work Phone: [phone] E/E' Lateral 8.11 [facility] Work Phone: [phone] E/E' Ratio (Averaged) 9.27 [facility] Work Phone: [phone] E/E' Septal 10.43 [facility] Work Phone: [phone] Est. RA Pressure 3 mmHg [facility] [employer] Work Phone: [phone] Fractional Shortening 2D 29 % 28 - 44 % [facility] Work Phone: [phone] Global Longitudinal Strain -12.4 % [facility] Work Phone: [phone] Global Longitudinal Strain -11.5 % [facility] Work Phone: [phone] Global Longitudinal Strain -14.8 % [facility] Work Phone: [phone] Global Longitudinal Strain -12.9 % [facility] Work Phone: [phone] Interpretation and review of laboratory results Abnormal [facility] Work Phone: [phone] IVC Diameter 1.6 cm [facility] Work Phone: [phone] IVSd 0.9 cm 0.6 - 0.9 cm [facility] Work Phone: [phone] LA Diameter 2.9 cm [facility] Work Phone: [phone] LA Size Index 1.76 cm/m2 [facility] Work Phone: LA Volume 2C 50 mL 22 - 52 mL [facility] Work Phone: LA Volume 4C 51 mL 22 - 52 mL [facility] Work Phone: LA Volume A/L 53 mL [facility] Work Phone: LA Volume BP 50 mL 22 - 52 mL [facility] Work Phone: LA Volume Index 2C 30 mL/m2 16 - 34 mL/m2 [facility] Work Phone: LA Volume Index 4C 31 mL/m2 16 - 34 mL/m2 [facility] Work Phone: LA Volume Index A/L 32 mL/m2 16 - 34 mL/m2 [facility] Work Phone: LA Volume Index BP 30 ml/m2 16 - 34 ml/m2 [facility] Work Phone: Left ventricular Ejection fraction by US.2D+Calculated by biplane method of disks 51 % Abnormal 55 - 100 % [facility] Work Phone: LV E' Lateral Velocity 9 cm/s [facility] Work Phone: LV E' Septal Velocity 7 cm/s [facility] Work Phone: LV EDV A2C 116 mL [facility] Work Phone: LV EDV A4C 150 mL [facility] Work Phone: LV EDV BP 140 mL Abnormal 56 - 104 mL [facility] Work Phone: LV EDV Index A2C 70 mL/m2 [facility] Work Phone: LV EDV Index A4C 91 mL/m2 [facility] Work Phone: LV EDV Index BP 85 mL/m2 [facility] Work Phone: LV Ejection Fraction A2C 46 % [facility] Work Phone: LV Ejection Fraction A4C 50 % [facility] Work Phone: LV ESV A2C 63 mL [facility] Work Phone: LV ESV A4C 75 mL [facility] Work Phone: LV ESV BP 69 mL Abnormal 19 - 49 mL [facility] Work Phone: LV ESV Index A2C 38 mL/m2 [facility] Work Phone: [phone] LV ESV Index A4C 45 mL/m2 [facility] Work Phone: [phone] LV ESV Index BP 42 mL/m2 [facility] Work Phone: LV Mass 2D 114.1 g 67 - 162 g [facility] Work Phone: [phone] LV Mass 2D Index 69.2 g/m2 43 - 95 g/m2 [facility] Work Phone: LV RWT Ratio 0.44 [facility] Work Phone: [phone] LVIDd 4.1 cm 3.9 - 5.3 cm [facility] Work Phone: [phone] LVIDd Index 2.48 cm/m2 [facility] Work Phone: [phone] LVIDs 2.9 cm [facility] Work Phone: [phone] LVIDs Index 1.76 cm/m2 [facility] Work Phone: [phone] LVOT Cardiac Output 3.7 liter/mi nut e [employer] [facility] Work Phone: [phone] LVOT Diameter 1.9 cm [facility] [employer] Work Phone: LVOT Mean Gradient 1 mmHg [employer] [facility] Work Phone: LVOT Peak Gradient 3 mmHg [facility] Work Phone: [phone] LVOT Peak Velocity 0.8 m/s [facility] Work Phone: [phone] LVOT Stroke Volume Index 29.9 mL/m2 [facility] Work Phone: [phone] LVOT SV 49.3 ml [employer] [facility] Work Phone: [phone] LVOT VTI 17.4 cm [facility] Work Phone: LVOT:AV VTI Index 0.65 [facility] Work Phone: LVPWd 0.9 cm 0.6 - 0.9 cm [facility] Work Phone: [phone] MV A Velocity 1.25 m/s [facility] Work Phone: [phone] MV E Velocity 0.73 m/s [facility] Work Phone: MV E Wave Deceleration Time 199 ms [facility] Work Phone: MV E/A 0.58 [facility] Work Phone: [phone] RV Basal Dimension 2.7 cm [facility] Work Phone: [phone] RV Free Wall Peak S' 11 cm/s [facility] Work Phone: RV Longitudinal Dimension 6.6 cm [facility] Work Phone: [phone] RV Mid Dimension 2.[address] [facility] al[facility] Work Phone: [phone] RVSP 33 mmHg [facility] Work Phone: [phone] Sinotubular Junction 2.5 cm [facility] Work Phone: [phone] TAPSE 1 cm Abnormal 1.7 cm [facility] Work Phone: [phone] TR Max Velocity 2.76 m/s [facility] Work Phone: TR Peak Gradient 30 mmHg [facility] Work Phone: [phone] TV [employer] 0.4 cm [facility] Work [phone] [facility] Work Phone: [phone] US Heart Transthoracicon Left Ventricle: Not [...] apex. All other segments are normal. CV CPACS US Lower extremity vein - [facility] 06-25-2025 No evidence of deep vein or [...] signson 06-25-2025 Heart rate 83 /min bpm [facility] 36on 06-24-2025 36 Pt returned call to office, she is now reporting sudden onset of neck pain and increased confusion today. Advised pt be seen in ED since she is having new/worsening symptoms. Patient's son states he will bring her to [facility] ED for evaluation. Normal [facility] CBC W Auto Differential pane l (Bld)Ordered By: Tawana Mendoza on 06-24-2025 Basophils (Bld) [#/Vol] 0.1 10*3/uL 0.0 - 0.2 10*3/uL [facility] Basophils/100 WBC (Bld) 0.6 % 0.0 - 2.0 % [facility] Eosinophils (Bld) [#/Vol] 0.2 10*3/uL 0.0 - 0.5 10*3/uL [facility] Eosinophils/100 WBC (Bld) 2.8 % 0.0 - 6.0 % [facility] Erythrocyte distribution width (RBC) [Ratio] 14.9 % 11.5 - 15.0 % [facility] Hematocrit (Bld) [Volume fraction] 31.5 % Low 35.0 - 47.0 % [facility] Hemoglobin (Bld) [Mass/Vol] 10.1 g/dL Low 11.7 - 16.0 g/dL [facility] Immature granulocytes (Bld) [#/Vol] 0.1 10*3/uL High NINF - 0.1 10*3/uL [facility] Immature granulocytes/100 WBC (Bld) 0.8 % 0.0 - 2.0 % [facility] Interpretation and review of laboratory results Abnormal [facility] Lymphocytes (Bld) [#/Vol] 2.8 10*3/uL 1.0 - 4.3 10*3/uL [facility] Lymphocytes/100 WBC (Bld) 35.5 % 15.0 - 45.0 % [facility] MCH (RBC) [Entitic mass] 30.5 pg 26.0 - 34.0 pg [facility] MCHC (RBC) [Mass/Vol] 32.1 % 30.5 - 36.0 % [facility] MCV (RBC) [Entitic vol] 95.2 fL 77.0 - 99.0 fL [facility] Monocytes (Bld) [#/Vol] 1.1 10*3/uL High 0.0 - 0.9 10*3/uL [facility] Monocytes/100 WBC (Bld) 14.6 % High 5.0 - 13.0 % [facility] Neutrophils (Bld) [#/Vol] 3.6 10*3/uL 1.8 - 7.5 10*3/uL [facility] Neutrophils/100 WBC (Bld) 45.7 % 38.0 - 82.0 % [facility] Nucleated RBC/100 WBC (Bld) [Ratio] 0 % [facility] Platelet mean volume (Bld) [Entitic vol] 11.1 fL 9.0 - 12.7 fL [facility] Platelets (Bld) [#/Vol] 305 10*3/uL 140 - 440 10*3/uL [facility] RBC (Bld) [#/Vol] 3.31 10*6/uL Low 3.80 - 5.2 0 10*6/uL [facility] WBC (Bld) [#/Vol] 7.8 10*3/uL 3.6 - 10.7 10*3/uL [facility] CBC WITH AUTO DIFFERENTIALon 06-24-2025 Basophils (Bld) [#/Vol] 0.1 10*3/uL Normal 0.0-0.2 [facility] Comment on above: Performed By: #### L [id number] ####Moisture Machine Tender: MIGUEL LEAL ([id number])[facility] ([address] Basophils/100 WBC (Bld) 0.6 % Normal 0.0-2.0 [facility] Comment on above: Performed By: #### L [id number] ####Moisture Machine Tender: MIGUEL LEAL ([id number])[facility])[address] [place] [address] Eosinophils (Bld) [#/Vol] 0.2 10*3/uL Normal 0.0-0.5 [facility] Comment on above: Performed By: #### L [id number] ####Moisture Machine Tender: MIGUEL LEAL ([id number])[facility])[address] [place] [address] Eosinophils/100 WBC (Bld) 2.8 % Normal 0.0-6.0 [facility] Comment on above: Performed By: #### L [id number] ####Moisture Machine Tender: MIGUEL LEAL ([id number])[facility])[address] [place] [address] Erythrocyte distribution width (RBC) [Ratio] 14.9 % Normal 11.5-15.0 [facility] Comment on above: Performed By: #### L [id number] ####Moisture Machine Tender: MIGUEL LEAL ([id number])[facility])[address] [place] [address] Hematocrit (Bld) [Volume fraction] 31.5 % Low 35.0-47.0 [facility] Comment on above: Performed By: #### L [id number] ####Moisture Machine Tender: MIGUEL LEAL ([id number])[facility])[address] [place] [address] Hemoglobin (Bld) [Mass/Vol] 10.1 g/dL Low 11.7-16.0 [facility] Comment on above: Performed By: #### L [id number] ####Moisture Machine Tender: MIGUEL LEAL ([id number])[facility])[address] [place] [address] IMMATURE GRANS % 0.8 % Normal 0.0-2.0 [facility] Comment on above: Performed By: #### L [id number] ####Moisture Machine Tender: MIGUEL LEAL ([id number])[facility])[address] [place] [address] IMMATURE GRANS ABSOLUTE 0.1 10*3/uL High <0.1 [facility] Comment on above: Performed By: #### L [id number] ####Moisture Machine Tender: MIGUEL LEAL ([id number])[facility])[address] [place] [address] Lymphocytes (Bld) [#/Vol] 2.8 10*3/uL Normal 1.0-4.3 [facility] Comment on above: Performed By: #### L [id number] ####Moisture Machine Tender: MIGUEL LEAL ([id number])[facility])[address] [place] [address] Lymphocytes/100 WBC (Bld) 35.5 % Normal 15.0-45.0 [facility] Comment on above: Performed By: #### L [id number] ####Moisture Machine Tender: MIGUEL LEAL ([id number])[facility])[address] [place] [address] MCH (RBC) [Entitic mass] 30.5 pg Normal 26.0-34.0 [facility] Comment on above: Performed By: #### L [id number] ####Moisture Machine Tender: MIGUEL LEAL ([id number])[facility])[address] [place] [address] MCHC 32.1 % Normal 30.5-36.0 [facility] Comment on above: Performed By: #### L [id number] ####Moisture Machine Tender: MIGUEL LEAL ([id number])[facility])[address] [place] [address] MCV (RBC) [Entitic vol] 95.2 fL Normal 77.0-99.0 [facility] Comment on above: Performed By: #### L [id number] ####Moisture Machine Tender: MIGUEL LEAL ([id number])[facility])[address] [place] [address] Monocytes (Bld) [#/Vol] 1.1 10*3/uL High 0.0-0.9 [facility] Comment on above: Performed By: #### L [id number] ####Moisture Machine Tender: MIGUEL LEAL ([id number])[facility] [place] [address] Monocytes/100 WBC (Bld) 14.6 % High 5.0-13.0 [facility] Comment on above: Performed By: #### L [id number] ####Moisture Machine Tender: MIGUEL LEAL ([id number])[facility] ([facility])[address] [place] [address] NEUTROPHILS ABSOLUTE 3.6 10*3/uL Normal 1.8-7.5 [facility] Comment on above: Performed By: #### L [id number] ####Moisture Machine Tender: MIGUEL LEAL ([id number])[facility] ([facility])[address] [place] [address] Neutrophils/100 WBC (Bld) 45.7 % Normal 38.0-82.0 [facility] Comment on above: Performed By: #### L [id number] ####Moisture Machine Tender: MIGUEL LEAL ([id number])[facility] ([facility])[address] [place] [address] NRBC 0.0 /100 WBCs Normal 0.0-2.0 [facility] Comment on above: Performed By: #### L [id number] ####Moisture Machine Tender: MIGUEL LEAL ([id number])[facility] ([facility])[address] [place] [address] Platelet mean volume (Bld) [Entitic vol] 11.1 fL Normal 9.0-12.7 [facility] Comment on above: Performed By: #### L [id number] ####Moisture Machine Tender: MIGUEL LEAL ([id number])[facility] [place] [address] Platelets (Bld) [#/Vol] 305 10*3/uL Normal 140-440 [facility] Comment on above: Performed By: #### L [id number] ####Moisture Machine Tender: MIGUEL LEAL ([id number])[facility])[address] [place] [address] RBC (Bld) [#/Vol] 3.31 10*6/uL Low 3.80-5.20 [facility] Comment on above: Performed By: #### L [id number] ####Moisture Machine Tender: MIGUEL LEAL ([id number])[facility])[address] [place] [address] WBC (Bld) [#/Vol] 7.8 10*3/uL Normal 3.6-10.7 [facility] Comment on above: Performed By: #### L [id number] ####Moisture Machine Tender: MIGUEL LEAL ([id number])[address] CKMBon 06-24-2025 CK.MB [Mass/Vol] 3.1 ng/mL Normal <=3.4 [facility] Comment on above: Result Comment: Both the CKMB and the Relative Index must be abnormal for clinical significance. Performed By: #### L AB129, LAB17, [id number], [id number], [id number] ####Moisture Machine Tender: MIGUEL LEAL ([id number])[address] RELATIVE INDEX 2.0 % Normal <=3.0 [facility] Comment on above: Result Comment: ROCIO R COMMENTS:If CK-MB is elevated and the ratio of CK-MB to total CK (relative index) is more than 3, then it is likely that the heart was damaged. A high CK with a relative index below this value suggests that skeletal muscles were damaged. Performed By: #### L AB129, LAB17, [id number], [id number], [id number] ####Moisture Machine Tender: MIGUEL LEAL ([id number])[address] CKMB SCREENon 06-24-2025 CK [Catalytic activity/Vol] 156 U/L Normal 30-185 [facility] Comment on above: Performed By: #### L AB129, LAB17, [id number], [id number], [id number] ####Moisture Machine Tender: MIGUEL LEAL ([id number])[facility] ([facility])[address] [place] [address] COMPLETE URINALYSIS WITH REF JACKY TO CULTUREon 06-24-2025 BILIRUBIN, TOTAL PRESENCE IN URINE Negative Normal Negative [facility] Comment on above: Performed By: #### L [id number] ####Moisture Machine Tender: MIGUEL LEAL ([id number])[facility] ([facility])[address] [place] [address] Clarity (U) Clear Normal Clear [facility] Comment on above: Performed By: #### L [id number] ####Moisture Machine Tender: MIGUEL LEAL ([id number])[facility])[address] [place] [address] Color (U) Colorless Normal Lt. Yellow [facility] Comment on above: Performed By: #### L [id number] ####Moisture Machine Tender: MIGUEL LEAL ([id number])[facility])[address] [place] [address] GLUCOSE (MG/DL) IN URINE Normal Normal Normal (<70) [facility] Comment on above: Performed By: #### L [id number] ####Moisture Machine Tender: MIGUEL LEAL ([id number])[facility])[address] [place] [address] HEMOGLOBIN PRESENCE IN URINE Negative Normal Negative [facility] Comment on above: Performed By: #### L [id number] ####Moisture Machine Tender: MIGUEL LEAL ([id number])[facility])[address] [place] [address] Ketones Ql (U) Trace Abnormal Negative [facility] Comment on above: Performed By: #### L [id number] ####Moisture Machine Tender: MIGUEL LEAL ([id number])[facility])[address] [place] [address] LEUKOCYTE ESTERASE PRESENCE IN URINE BY TEST STRIP Negative Normal Negative [facility] Comment on above: Performed By: #### L [id number] ####Moisture Machine Tender: MIGUEL LEAL ([id number])[facility] ([facility])[address] [place] [address] NITRITE PRESENCE IN URINE Negative Normal Negative [facility] Comment on above: Performed By: #### L [id number] ####Moisture Machine Tender: MIGUEL LEAL ([id number])[facility] ([facility])[address] [place] [address] pH (U) 7.0 [pH] Normal 5.0-8.0 [facility] Comment on above: Performed By: #### L [id number] ####Moisture Machine Tender: MIGUEL LEAL ([id number])[facility] ([facility])[address] [place] [address] Protein (U) [Mass/Vol] Negative Normal Negative [facility] Comment on above: Performed By: #### L [id number] ####Moisture Machine Tender: MIGUEL LEAL ([id number])[facility] ([facility])[address] [place] [address] Specific gravity (U) [Rel density] 1.036 High 1.005-1.030 [facility] Comment on above: Result Comment: ROCIO R COMMENTS:A specimen with <=10 WBC is not consistent with inflammation. This specimen will not reflex to a urine culture. Performed By: #### L [id number] ####Moisture Machine Tender: MIGUEL LEAL ([id number])[facility] ([facility])[address] [place] [address] UROBILINOGEN (MG/DL) IN URINE Normal Normal Normal (0-1) [facility] Comment on above: Performed By: #### L [id number] ####Moisture Machine Tender: MIGUEL LEAL ([id number])[facility] ([facility])[address] [place] [address] COMPREHENSIVE METABOLIC PANE [place] 06-24-2025 Albumin [Mass/Vol] 4.1 g/dL Normal 3.4-4.8 [facility] Comment on above: Performed By: #### L AB129, LAB17, [id number], [id number], [id number] ####Moisture Machine Tender: MIGUEL LEAL ([id number])[facility] ([facility])[address] [place] [address] ALP [Catalytic activity/Vol] 80 U/L Normal 40-150 [facility] Comment on above: Performed By: #### L AB129, LAB17, [id number], [id number], [id number] ####Moisture Machine Tender: MIGUEL LEAL ([id number])[facility])[address] [place] [address] ALT [Catalytic activity/Vol] 11 U/L Normal <30 [facility] Comment on above: Performed By: #### L AB129, LAB17, [id number], [id number], [id number] ####Moisture Machine Tender: MIGUEL LEAL ([id number])[facility] ([facility])[address] [place] [address] Anion gap [Moles/Vol] 14 mmol/L High 3-13 [facility] Comment on above: Performed By: #### L AB129, LAB17, [id number], [id number], [id number] ####Moisture Machine Tender: MIGUEL LEAL ([id number])[facility] ([facility])[address] [place] [address] AST [Catalytic activity/Vol] 39 U/L High <34 [facility] Comment on above: Performed By: #### L AB129, LAB17, [id number], [id number], [id number] ####Moisture Machine Tender: MIGUEL LEAL ([id number])[facility])[address] [place] [address] Bilirubin [Mass/Vol] 0.7 mg/dL Normal <1.2 [facility] Comment on above: Performed By: #### L AB129, LAB17, [id number], [id number], [id number] ####Moisture Machine Tender: MIGUEL LEAL ([id number])[facility])[address] [place] [address] Calcium [Mass/Vol] 9.8 mg/dL Normal 8.8-10.0 [facility] Comment on above: Performed By: #### L AB129, LAB17, [id number], [id number], [id number] ####Moisture Machine Tender: MIGUEL LEAL ([id number])[facility] ([facility])[address] [place] [address] Chloride [Moles/Vol] 99 mmol/L Normal 98-107 [facility] Comment on above: Performed By: #### L AB129, LAB17, [id number], [id number], [id number] ####Moisture Machine Tender: MIGUEL LEAL ([id number])[facility] ([facility])[address] [place] [address] CO2 [Moles/Vol] 22 mmol/L Low 23-31 [facility] Comment on above: Performed By: #### L AB129, LAB17, [id number], [id number], [id number] ####Moisture Machine Tender: MIGUEL LEAL ([id number])[facility])[address] [place] [address] Creatinine [Mass/Vol] 0.77 mg/dL Normal 0.57-1.11 [facility] Comment on above: Performed By: #### L AB129, LAB17, [id number], [id number], [id number] ####Moisture Machine Tender: MIGUEL LEAL ([id number])[facility])[address] [place] [address] [place] GLOMERULAR FILTRATION RATE ML/MIN/1.73 SQ M.PREDICTED 81.1 mL/min/1.73m*2 Normal >60.0 [facility] Comment on above: Result Comment: Calc ulation based on the Chronic Kidney Disease Epidemiology Collaboration (CKD-EPI) equation refit without adjustment for race Performed By: #### L AB129, LAB17, [id number], [id number], [id number] ####Moisture Machine Tender: MIGUEL LEAL ([id number])[facility])[address] [place] [address] Glucose [Mass/Vol] 110 mg/dL Normal 82-115 [facility] Comment on above: Performed By: #### L AB129, LAB17, [id number], [id number], [id number] ####Moisture Machine Tender: MIGUEL LEAL ([id number])[facility])[address] [place] [address] Potassium [Moles/Vol] 3.8 mmol/L Normal 3.5-5.1 [facility] Comment on above: Result Comment: [facility] potassium values may be up to 0.5 mmol/L lower than serum values. Performed By: #### L AB129, LAB17, [id number], [id number], [id number] ####Moisture Machine Tender: MIGUEL LEAL ([id number])[address] Protein [Mass/Vol] 7.4 g/dL Normal 6.4-8.3 [facility] Comment on above: Performed By: #### L AB129, LAB17, [id number], [id number], [id number] ####Moisture Machine Tender: MIGUEL LEAL ([id number])[address] Sodium [Moles/Vol] 135 mmol/L Low 136-145 [facility] Comment on above: Performed By: #### L AB129, LAB17, [id number], [id number], [id number] ####Moisture Machine Tender: MIGUEL LEAL ([id number])[address] Urea nitrogen [Mass/Vol] 20 mg/dL Normal 9-23 [facility] Comment on above: Performed By: #### L AB129, LAB17, [id number], [id number], [id number] ####Moisture Machine Tender: MIGUEL LEAL ([id number])[facility] ([facility])[address] [place] [address] [place] HEAD NECK ANGIO W AND WO IV CONTRASTon 06-24-2025 CT HEAD NECK ANGIO W AND WO IV CONTRAST Normal [facility] CT HEAD WO IV CONTRASTon CT HEAD WO IV CONTRAST Normal [facility] CT Head WO contraston 2024 Patient Name: RICHIE ARMAS : 1950 [facility]#: [id number] Exam Date/Time: 06/24/2025 10:26 Procedure: CT HEAD [...] The V4 segments (codominant), basilar artery and greeting card writer (left HAND SANDER with hypoplastic left P1 segment) are patent without large vessel occlusion, high grade stenosis or aneurysm. Distal greeting card writer are suboptimally assessed due to motion. The proximal SCAs, AICAs and PICAs are patent. The superior sagittal sinus, straight sinus, confluence, transverse and sigmoid sinuses are patent. Rfid Strategist (topogram) images: No additional findings. [facility] Delvis Morin MD - 06/24/2025 [facility] 1950 [id number] Exam Date/Time: 06/24/2025 10:26 Procedure: CT HEAD [...] The V4 segments (codominant), basilar artery and greeting card writer (left HAND SANDER with hypoplastic left P1 segment) are patent without large vessel occlusion, high grade stenosis or aneurysm. Distal greeting card writer are suboptimally assessed due to motion. The proximal SCAs, AICAs and PICAs are patent. The superior sagittal sinus, straight sinus, confluence, transverse and sigmoid sinuses are patent. Rfid Strategist (topogram) images: No additional findings. IMPRESSION: CT: No CT evidence of acute abnormality. CTA: No large vessel occlusion or high-grade stenosis in the head or neck. 0% stenosis of the proximal cervical ICAs bilaterally by NASCET criteria. 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 Report Dictated on Electronically Signed By: Delvis Morin MD Electronically Signed Date/Time: 06/24/2025 11:14 AM EDT [facility] CTA Head vessels and Neck ve ssels WO and W contrast Tobias 06-24-2025 Patient Name: RICHIE ARMAS : 1950 [facility]#: [id number] Exam Date/Time: 06/24/2025 10:26 Procedure: CT HEAD [...] The V4 segments (codominant), basilar artery and greeting card writer (left HAND SANDER with hypoplastic left P1 segment) are patent without large vessel occlusion, high grade stenosis or aneurysm. Distal greeting card writer are suboptimally assessed due to motion. The proximal SCAs, AICAs and PICAs are patent. The superior sagittal sinus, straight sinus, confluence, transverse and sigmoid sinuses are patent. Rfid Strategist (topogram) images: No additional findings. [facility] Delvis Morin MD - 06/24/2025 [facility] Name: [facility] 1950 [id number] Exam Date/Time: 06/24/2025 10:26 Procedure: CT HEAD [...] The V4 segments (codominant), basilar artery and greeting card writer (left HAND SANDER with hypoplastic left P1 segment) are patent without large vessel occlusion, high grade stenosis or aneurysm. Distal greeting card writer are suboptimally assessed due to motion. The proximal SCAs, AICAs and PICAs are patent. The superior sagittal sinus, straight sinus, confluence, transverse and sigmoid sinuses are patent. Rfid Strategist (topogram) images: No additional findings. IMPRESSION: CT: No CT evidence of acute abnormality. CTA: No large vessel occlusion or high-grade stenosis in the head or neck. 0% stenosis of the proximal cervical ICAs bilaterally by NASCET criteria. 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 Report Dictated on Electronically Signed By: Delvis Morin MD Electronically Signed Date/Time: 06/24/2025 11:14 AM EDT [facility] Comprehensive metabolic 1998 panelon 06-24-2025 Albumin [Mass/Vol] 4.1 g/dL 3.4 - 4.8 g/dL [facility] ALP [Catalytic activity/Vol] 80 U/L 40 - 150 U/L [facility] ALT [Catalytic activity/Vol] 11 U/L NINF - 30 U/L [facility] Anion gap [Moles/Vol] 14 mmol/L High 3 - 13 mmol/L [facility] AST [Catalytic activity/Vol] 39 U/L High NINF - 34 U/L [facility] Bilirubin [Mass/Vol] 0.7 mg/dL NINF - 1.2 mg/dL [facility] Calcium [Mass/Vol] 9.8 mg/dL 8.8 - 10. 0 mg/dL [facility] Chloride [Moles/Vol] 99 mmol/L 98 - 10 7 mmol/L [facility] CO2 [Moles/Vol] 22 mmol/L Low 23 - 31 mmol/L [facility] Creatinine [Mass/Vol] 0.77 mg/dL 0.57 - 1.11 mg/dL [facility] GFR/1.73 sq M.predicted (S/P/Bld) [Vol rate/Area] 81.1 mL/min - PINF [facility] Comment on above: Calculation based on the Chronic Kidney Disease Epidemiology Collaboration (CKD-EPI) equation refit without adjustment for race Glucose [Mass/Vol] 110 mg/dL 82 - 115 mg/dL [facility] Interpretation and review of laboratory results Abnormal [facility] Potassium [Moles/Vol] 3.8 mmol/L 3.5 - 5.1 mmol/L [facility] Comment on above: Plasma potassium masood ues may be up to 0.5 mmol/L lower than serum values. Protein [Mass/Vol] 7.4 g/dL 6.4 - 8.3 g/dL [facility] Sodium [Moles/Vol] 135 mmol/L Low 136 - 145 mmol/L [facility] Urea nitrogen [Mass/Vol] 20 mg/dL 9 - 23 mg/dL [facility] ECG 12-LEADon 06-24-2025 ECG 12-LEAD IMPRESSION: Sinus rhythm Ventricular premature complex Probable left atrial enlargement Borderline right axis deviation Nonspecific T abnrm, anterolateral leads Electronically Signed On 06-24-2025 10:06:34 EDT by Thelma Lepe Normal [facility] ED Provider Noteon ED Provider Note Normal [facility] FREE T4on 06-24-2025 Free T4 [Mass/Vol] 0.87 ng/dL Normal 0.70-1.48 [facility] Comment on above: Performed By: #### L [id number] ####Moisture Machine Tender: MIGUEL LEAL ([id number])[facility])[address] [place] [address] Free T3 [Mass/Vol]on 025 Interpretation and review of laboratory results Normal [facility] Free T4 [Mass/Vol]on Free T4 Dialysis [Mass/Vol] 0.87 ng/dL 0.70 - 1.48 ng/dL [facility] Interpretation and review of laboratory results Normal [facility] HIGH SENSITIVITY TROPONIN, S ERIAL BASELINEon 06-24-2025 TROPONIN HS SERIAL BASELINE 82 ng/L High <=14 [facility] Comment on above: Result Comment: In i ndividuals presenting with symptoms > 2h, a baseline troponin <= 5 ng/L suggests acutecardiac injury is unlikely and further serial testing is generally not indicated. Performed By: #### L AB129, LAB17, [id number], [id number], [id number] ####Moisture Machine Tender: MIGUEL LEAL ([id number])[facility] ([facility])[address] [place] [address] HIGH SENSITIVITY TROPONIN, S ERIAL, SECOND TESTon 06-24-2025 2H TROPONIN HS (SERIAL 2ND TROPONIN) 76 ng/L High <=14 [facility] Comment on above: Result Comment: 2h [...] serial troponin Performed By: #### L AB103, [id number], [id number] ####Moisture Machine Tender: MIGUEL LEAL ([id number])[facility] ([facility])[address] [place] [address] HIGH SENSITIVITY TROPONIN, S ERIAL, THIRD TESTon 06-24-2025 4H TROPONIN HS (SERIAL 3RD TROPONIN) 73 ng/L High <=14 [facility] Comment on above: Result Comment: Risi ng or falling troponin delta between 2 ??? 15 ng/L as compared to 2h troponin valuerequires further evaluation. Performed By: #### L [id number] ####Moisture Machine Tender: MIGUEL LEAL ([id number])[facility] ([facility])[address] [place] [address] LACTIC ACID WITH REFLEXon Lactate [Moles/Vol] 2.0 mmol/L Normal 0.5-2.2 [facility] Comment on above: Performed By: #### L [id number] ####Moisture Machine Tender: MIGUEL LEAL ([id number])[facility] ([facility])[address] [place] [address] Lactate [Moles/Vol] 2.8 mmol/L High 0.5-2.2 [facility] Comment on above: Performed By: #### L [id number] ####Moisture Machine Tender: MIGUEL LEAL ([id number])[facility])[address] [place] [address] Laboratory - Chemistry and C hemistry - challengeon 06-24-2025 Lactate [Moles/Vol] 2 mmol/L 0.5 - 2. 2 mmol/L [facility] cisimple Free T3 [Mass/Vol] 1.89 pg/mL 1.58 - 3. 91 pg/mL [facility] cisimple Magnesium [Mass/Vol] 2.1 mg/dL 1.6 - 2 .6 mg/dL [facility] TSH Qn 5.65 m[IU]/L High [facility] CK.MB [Mass/Vol] 3.1 ng/mL NINF - 3.4 ng/mL [facility] Comment on above: Both the CKMB and th e Relative Index must be abnormal for clinical significance. CK [Catalytic activity/Vol] 156 U/L 30 - 185 U/L [facility] Lactate [Moles/Vol] 2.8 mmol/L High 0.5 - 2. 2 mmol/L [facility] Glucose [Mass/Vol] 113 mg/dL High 70 - 100 mg/dL [facility] MAGNESIUMon 06-24-2025 Magnesium [Mass/Vol] 2.1 mg/dL Normal 1.6-2.6 [facility] Comment on above: Result Comment: ROCIO Bhandari COMMENTS:Higher values can be expected in females during menses. Performed By: #### L AB103, [id number], [id number] ####Moisture Machine Tender: MIGUEL LEAL ([id number])[facility] ([facility])[address] [place] [address] MR Brain WO contraston 06-24 1. 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 Extensive chronic ischemic changes. CRITICAL TEST RESULT COMMUNICATION: Notification of these findings was made to MARRY BERGER via [employer] on 06/24/2025 7:02 PM EDT. Report Dictated on Electronically Signed By: Ramesh Merino MD Electronically Signed Date/Time: 06/24/2025 7:02 PM EDT [facility] [employer] Patient Name: RICHIE ARMAS : 1950 Exam [...] identified. Major intracranial flow voids are visualized. [facility] Ramesh Merino MD - 06/24/2025 [facility] 1950 [id number] Exam Date/Time: 06/24/2025 15:13 Procedure: MR BRAIN [...] findings was made to MARRY BERGER via [employer] on 06/24/2025 7:02 PM EDT. Report Dictated on Electronically Signed By: Ramesh Merino MD Electronically Signed Date/Time: 06/24/2025 7:02 PM EDT [facility] Radiology Study observation (narrative) [facility] alth MR Brain WO contrastOrdered By: Ramesh Merino on 06-24-2025 [facility] Work Phone: Magnesium [Mass/Vol]on 06-24 Interpretation and review of laboratory results Normal [facility] Higher values can be expected in females during menses. [facility] No Panel Informationon 06-24 4h Troponin HS (Serial 3rd Troponin) 73 ng/L High NINF - 14 ng/L [facility] Comment on above: Rising or falling tr oponin delta between 2 15 ng/L as compared to 2h troponin value requires further evaluation. Interpretation and review of laboratory results Abnormal [facility] Interpretation and review of laboratory results Normal [facility] 2h Troponin HS (Serial 2nd Troponin) 76 ng/L High NINF - 14 ng/L [facility] Comment on above: 2h troponin (2nd tro ponin) samples collected between 1h 40 min and 2h and 20 min of the baseline collection time can be utilized to interpret delta troponins as per [facility] algorithms. Samples collected outside this timeframe need to be interpreted clinically. Rising or falling troponin delta between 2 15 ng/L as compared to baseline value requires a 3rd serial troponin Interpretation and review of laboratory results Abnormal [facility] Interpretation and review of laboratory results Normal [facility] RELATIVE INDEX 2 % NINF - 3.0 % [facility] If CK-MB is elevated and the ratio of CK-MB to total CK (relative index) is more than 3, then it is likely that the heart was damaged. A high CK with a relative index below this value suggests that skeletal muscles were damaged. [facility] Interpretation and review of laboratory results Abnormal [facility] Troponin HS Serial Baseline 82 ng/L High NINF - 14 ng/L [facility] Comment on above: In individuals prese nting with symptoms > 2h, a baseline troponin <= 5 ng/L suggests acute cardiac injury is unlikely and further serial testing is generally not indicated. [facility] CT: No CT evidence o f acute abnormality. CTA: No large vessel occlusion or high-grade stenosis in the head or neck. 0% stenosis of the proximal cervical ICAs bilaterally by NASCET criteria. 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 Report Dictated on Electronically Signed By: Delvis Morin MD Electronically Signed Date/Time: 06/24/2025 11:14 AM EDT [facility] RADIOLOG[facility] SYSTEM [facility] Interpretation and review of laboratory results Normal [facility] Interpretation and review of laboratory results Abnormal [facility] Radiology Study observation (narrative) [facility] Interpretation and review of laboratory results Abnormal [facility] Performed by: [facility], [address] [place] [address] CLIA ID: [id number] [facility] Sinus rhythm Ventricular premature complex Probable left atrial enlargement Borderline right axis deviation Nonspecific T abnrm, anterolateral leads Electronically Signed On 06-24-2025 10:06:34 EDT by Thelma Lepe Thelma Foreman MD - 06/24/2025 IMPRESSION: Sinus rhythm Ventricular premature complex Probable left atrial enlargement Borderline right axis deviation Nonspecific T abnrm, anterolateral leads Electronically Signed On 06-24-2025 10:06:34 EDT by [facility]lma Lepe [facility] No Panel InformationOrdered By: Thelma Lepe on 06-24-2025 P [place] 42 degrees [employer] Work Phone: FL Interval 160 ms [facility] Work Phone: QRS [place] 85 degrees [employer] Work Phone: QRSD Interval 103 ms [facility] Work Phone: QT Interval 407 ms [employer] Work Phone: QTC Interval 462 ms [facility]imple Work Phone: T Wave [place] 0 degrees [employer] Work Phone: [employer] Work Phone: Progress Noteon 06-24-2025 Progress Note Called and updated s on Salvador, who is with patient. Just arriving to three W., updated on MRI results and neurology consult. Normal [facility] T3 FREEon 06-24-2025 Free T3 [Mass/Vol] 1.89 pg/mL Normal 1.58-3.91 [facility] Comment on above: Performed By: #### L AB103, [id number], [id number] ####Moisture Machine Tender: MIGUEL LEAL ([id number])[facility])[address] [place] [address] [place] THYROID STIMULATING HORMONEo n 06-24-2025 THYROID STIMULATING HORMONE 5.65 uIU/mL High 0.35-4.94 [facility] Comment on above: Performed By: #### L AB129, LAB17, [id number], [id number], [id number] ####Moisture Machine Tender: MIGUEL LEAL ([id number])[facility] ([facility])[address] [place] [address] [place] TSH Qnon 06-24-2025 Interpretation and review of laboratory results Abnormal [facility] Urinalysis complete panel (U )Ordered By: Wendy Domingo on 06-24-2025 Bilirubin Ql (U) Negative Negative mg/dL [facility] Clarity (U) Clear Clear [facility] Color (U) Colorless Lt. Yellow [facility] Glucose Ql (U) Normal Normal (<70) mg/dL [facility] Hemoglobin Ql (U) Negative Negative mg/dL [facility] Interpretation and review of laboratory results Abnormal [facility] Ketones (U) [Mass/Vol] Trace Abnormal Negat nixon mg/dL [facility] Leukocyte esterase Test strip Ql (U) Negative Negative Pancho/uL [facility] Nitrite Ql (U) Negative Negative [facility] th pH (U) 7.0 [pH] 5.0 - 8.0 pH [facility] Protein (U) [Mass/Vol] Negative Negat nixon mg/dL [facility] Specific gravity (U) [Rel density] 1.036 High 1.005 - 1.030 [facility] Urobilinogen (U) [Mass/Vol] Normal Normal (0-1) mg/dL [facility] A specimen with <=10 WBC is not consistent with inflammation. This specimen will not reflex to a urine culture. [facility] Vital signsOrdered By: Thelma Lepe on 06-24-2025 Heart rate 80 /min bpm [facility] Work Phone: XR Chest Single viewon [...] MD Electronically Signed Date/Time: 06/24/2025 9:57 AM [facility] [address] [employer] RADIOLOGY SYSTEM [facility] Name[facility] 1950 [id number] Exam Date/Time: 06/24/2025 09:53 Procedure: XR CHEST 1 VIEW Ordering Provider: LONGORIA JACOB Reason For Exam: ALTERED MENTAL STATUS EXAMINATION: CHEST RADIOGRAPH (SINGLE VIEW AP OR PA) Clinical History: ALTERED MENTAL STATUS Comparison: Radiograph 06/22/2025 RESULT: See impression [facility] Delvis Morin MD - 06/24/2025 Patient Name: RICHIE ARMAS : 1950 [facility]#: [id number] Exam Date/Time: 06/24/2025 09:53 Procedure: XR CHEST [...] Electronically Signed Date/Time: 06/24/2025 9:57 AM EDT [facility] Radiology Study observation (narrative) [facility] XR Chest Single viewOrdered By: Delvis Morin on 06-24-2025 [facility] Work Phone: 36on 06-23-2025 36 Normal [facility] 36 Normal [facility] [id number] 06-22-2025 [id number] Normal [facility] [id number] [facility] - [facility] [address] [place] [id number] Patient/Family Choice Normal [facility] BASIC METABOLIC PANELon Anion gap [Moles/Vol] 12 mmol/L Normal 3-13 [facility] Comment on above: Performed By: #### L AB15, [id number] ####Moisture Machine Tender: MIGUEL LEAL ([id number])[facility] ([facility])[address] [place] [address] Calcium [Mass/Vol] 8.6 mg/dL Low 8.8-10.0 [facility] Comment on above: Performed By: #### L AB15, [id number] ####Moisture Machine Tender: MIGUEL LEAL ([id number])[facility] [place] [address] Chloride [Moles/Vol] 103 mmol/L Normal 98-107 [facility] Comment on above: Performed By: #### L AB15, [id number] ####Moisture Machine Tender: MIGUEL LEAL ([id number])[facility] ([facility])[address] [place] [address] CO2 [Moles/Vol] 22 mmol/L Low 23-31 [facility] Comment on above: Performed By: #### L AB15, [id number] ####Moisture Machine Tender: MIGUEL LEAL ([id number])[facility] ([facility])[address] [place] [address] Creatinine [Mass/Vol] 0.59 mg/dL Normal 0.57-1.11 [facility] Comment on above: Performed By: #### L AB15, [id number] ####Moisture Machine Tender: MIGUEL LEAL ([id number])[facility])[address] [place] [address] GLOMERULAR FILTRATION RATE ML/MIN/1.73 SQ M.PREDICTED >90.0 Normal >60.0 [facility] Comment on above: Result Comment: Calc ulation based on the Chronic Kidney Disease Epidemiology Collaboration (CKD-EPI) equation refit without adjustment for race Performed By: #### L AB15, [id number] ####Moisture Machine Tender: MIGUEL LEAL ([id number])[facility] ([facility])[address] [place] [address] Glucose [Mass/Vol] 92 mg/dL Normal 82-115 [facility] Comment on above: Performed By: #### L AB15, [id number] ####Moisture Machine Tender: MIGUEL LEAL ([id number])[facility])[address] [place] [address] [place] Potassium [Moles/Vol] 3.9 mmol/L Normal 3.5-5.1 [facility] Comment on above: Result Comment: [facility] potassium values may be up to 0.5 mmol/L lower than serum values. Performed By: #### L AB15, [id number] ####Moisture Machine Tender: MIGUEL LEAL ([id number])[facility] ([facility])[address] [place] [address] Sodium [Moles/Vol] 137 mmol/L Normal 136-145 [facility] Comment on above: Performed By: #### L AB15, [id number] ####Moisture Machine Tender: MIGUEL LEAL ([id number])[facility] ([facility])[address] [place] [address] Urea nitrogen [Mass/Vol] 12 mg/dL Normal 9-23 [facility] Comment on above: Performed By: #### L AB15, [id number] ####Moisture Machine Tender: MIGUEL LEAL ([id number])[facility])[address] [place] [address] Basic metabolic 1998 panelon 06-22-2025 Anion gap [Moles/Vol] 12 mmol/L 3 - 13 mmol/L [facility] Calcium [Mass/Vol] 8.6 mg/dL Low 8.8 - 10. 0 mg/dL [facility] Chloride [Moles/Vol] 103 mmol/L 98 - 10 7 mmol/L [facility] CO2 [Moles/Vol] 22 mmol/L Low 23 - 31 mmol/L [facility] Creatinine [Mass/Vol] 0.59 mg/dL 0.57 - 1.11 mg/dL [facility] GFR/1.73 sq M.predicted (S/P/Bld) [Vol rate/Area] - PINF [facility] Glucose [Mass/Vol] 92 mg/dL 82 - 115 mg/dL [facility] Interpretation and review of laboratory results Abnormal [facility] Potassium [Moles/Vol] 3.9 mmol/L 3.5 - 5.1 mmol/L [facility] Sodium [Moles/Vol] 137 mmol/L 136 - 145 mmol/L [facility] Urea nitrogen [Mass/Vol] 12 mg/dL 9 - 23 mg/dL [facility] CBC (HEMOGRAM)on 06-22-2025 Erythrocyte distribution width (RBC) [Ratio] 15.1 % High 11.5-15.0 [facility] Comment on above: Performed By: #### L AB294 ####Moisture Machine Tender: MIGUEL LEAL ([id number])[facility])[address] [place] [address] Hematocrit (Bld) [Volume fraction] 25.8 % Low 35.0-47.0 [facility] Comment on above: Performed By: #### L AB294 ####Moisture Machine Tender: MIGUEL LEAL ([id number])[facility])[address] [place] [address] Hemoglobin (Bld) [Mass/Vol] 8.5 g/dL Low 11.7-16.0 [facility] Comment on above: Performed By: #### L AB294 ####Moisture Machine Tender: MIGUEL LEAL ([id number])[facility])[address] [place] [address] MCH (RBC) [Entitic mass] 30.8 pg Normal 26.0-34.0 [facility] Comment on above: Performed By: #### L AB294 ####Moisture Machine Tender: MIGUEL LEAL ([id number])[facility])[address] [place] [address] MCHC 32.9 % Normal 30.5-36.0 [facility] Comment on above: Performed By: #### L AB294 ####Moisture Machine Tender: MIGUEL LEAL ([id number])[facility])[address] [place] [address] MCV (RBC) [Entitic vol] 93.5 fL Normal 77.0-99.0 [facility] Comment on above: Performed By: #### L AB294 ####Moisture Machine Tender: MIGUEL LEAL ([id number])[facility])[address] [place] [address] Platelet mean volume (Bld) [Entitic vol] 12.9 fL High 9.0-12.7 [facility] Comment on above: Performed By: #### L AB294 ####Moisture Machine Tender: MIGUEL LEAL ([id number])[facility] ([facility])[address] [place] [address] Platelets (Bld) [#/Vol] 133 10*3/uL Low 140-440 [facility] Comment on above: Performed By: #### L AB294 ####Moisture Machine Tender: MIGUEL LEAL ([id number])[facility])[address] [place] [address] RBC (Bld) [#/Vol] 2.76 10*6/uL Low 3.80-5.20 [facility] Comment on above: Performed By: #### L AB294 ####Moisture Machine Tender: MIGUEL LEAL ([id number])[facility])[address] [place] [address] WBC (Bld) [#/Vol] 7.5 10*3/uL Normal 3.6-10.7 [facility] Comment on above: Performed By: #### L AB294 ####Moisture Machine Tender: MIGUEL LEAL ([id number])[facility])[address] [place] [address] CBC panel Auto (Bld)on 06-22 Erythrocyte distribution width (RBC) [Ratio] 15.1 % High 11.5 - 15.0 % [facility] Hematocrit (Bld) [Volume fraction] 25.8 % Low 35.0 - 47.0 % [facility] Hemoglobin (Bld) [Mass/Vol] 8.5 g/dL Low 11.7 - 16.0 g/dL [facility] Interpretation and review of laboratory results Abnormal [facility] MCH (RBC) [Entitic mass] 30.8 pg 26.0 - 34.0 pg [facility] MCHC (RBC) [Mass/Vol] 32.9 % 30.5 - 36.0 % [facility] MCV (RBC) [Entitic vol] 93.5 fL 77.0 - 99.0 fL [facility] Platelet mean volume (Bld) [Entitic vol] 12.9 fL High 9.0 - 12.7 fL [facility] Platelets (Bld) [#/Vol] 133 10*3/uL Low 140 - 440 10*3/uL [facility] RBC (Bld) [#/Vol] 2.76 10*6/uL Low 3.80 - 5.2 0 10*6/uL [facility] WBC (Bld) [#/Vol] 7.5 10*3/uL 3.6 - 10.7 10*3/uL [facility] Laboratory - Chemistry and C hemistry - challengeon 06-22-2025 Magnesium [Mass/Vol] 1.8 mg/dL 1.6 - 2 .6 mg/dL [facility] MAGNESIUMon 06-22-2025 Magnesium [Mass/Vol] 1.8 mg/dL Normal 1.6-2.6 [facility] Comment on above: Result Comment: ORDE R COMMENTS:Higher values can be expected in females during menses. Performed By: #### L AB15, [id number] ####Moisture Machine Tender: MIGUEL LEAL ([id number])[address] Magnesium [Mass/Vol]on 06-22 Interpretation and review of laboratory results Normal [facility] No Panel Informationon 06-22 [facility] Blood Expiration Date [id number] [facility] Crossmatch interpretation COMP [facility] Dispense Status Released from [employer] [facility] cisimple Product Blood Type 6200 [facility] PRODUCT CODE [id number] [facility] PRODUCT CODE [id number] [facility] Unit ABO A [facility] Unit Number [id number] [facility] alth Unit Number [id number] [facility] alth Unit RH Positive [facility] Unit Volume 300 mL [facility] Progress Noteon 08-02-2025 Progress Note Normal [facility] Progress Note Normal [facility] XR CHEST 1 VIEWon 06-22-2025 XR CHEST 1 VIEW Normal [facility] XR Chest Single viewon 06-22 [facility]OLOG[facility] RADI[facility] [place] Radiology Study observation (narrative) [place] [id number] 06-21-2025 [id number] Normal [facility] BASIC METABOLIC PANELon 08 Anion gap [Moles/Vol] 9 mmol/L Normal 3-13 [facility] Comment on above: Performed By: #### L AB103, LAB15 ####Moisture Machine Tender: MIGUEL LEAL ([id number])[facility] ([facility])[address] [place] [address] Calcium [Mass/Vol] 8.9 mg/dL Normal 8.8-10.0 [facility] Comment on above: Performed By: #### L AB103, LAB15 ####Moisture Machine Tender: MIGUEL LEAL ([id number])[facility] [place] [address] [place] Chloride [Moles/Vol] 101 mmol/L Normal 98-107 [facility] Comment on above: Performed By: #### L AB103, LAB15 ####Moisture Machine Tender: MIGUEL LEAL ([id number])[facility] [place] [address] [place] CO2 [Moles/Vol] 25 mmol/L Normal 23-31 [facility] Comment on above: Performed By: #### L AB103, LAB15 ####Moisture Machine Tender: MIGUEL LEAL ([id number])[facility] [place] [address] [place] Creatinine [Mass/Vol] 0.75 mg/dL Normal 0.57-1.11 [facility] Comment on above: Performed By: #### L AB103, LAB15 ####Moisture Machine Tender: MIGUEL LEAL ([id number])[facility] [place] [address] [place] GLOMERULAR FILTRATION RATE ML/MIN/1.73 SQ M.PREDICTED 83.7 mL/min/1.73m*2 Normal >60.0 [facility] Comment on above: Result Comment: Calc ulation based on the Chronic Kidney Disease Epidemiology Collaboration (CKD-EPI) equation refit without adjustment for race Performed By: #### L AB103, LAB15 ####Moisture Machine Tender: MIGUEL LEAL ([id number])[facility])[address] [place] [address] Glucose [Mass/Vol] 113 mg/dL Normal 82-115 [facility] Comment on above: Performed By: #### L AB103, LAB15 ####Moisture Machine Tender: MIGUEL LEAL ([id number])[address] Potassium [Moles/Vol] 4.0 mmol/L Normal 3.5-5.1 [facility] Comment on above: Result Comment: [facility] potassium values may be up to 0.5 mmol/L lower than serum values. Performed By: #### L AB103, LAB15 ####Moisture Machine Tender: MIGUEL LEAL ([id number])[facility])[address] [place] [address] Sodium [Moles/Vol] 135 mmol/L Low 136-145 [facility] Comment on above: Performed By: #### L AB103, LAB15 ####Moisture Machine Tender: MIGUEL LEAL ([id number])[address] Urea nitrogen [Mass/Vol] 11 mg/dL Normal 9-23 [facility] Comment on above: Performed By: #### L AB103, LAB15 ####Moisture Machine Tender: MIGUEL LEAL ([id number])[address] Basic metabolic 1998 panelon 06-21-2025 Anion gap [Moles/Vol] 9 mmol/L 3 - 13 mmol/L [facility] Calcium [Mass/Vol] 8.9 mg/dL 8.8 - 10. 0 mg/dL [facility] Chloride [Moles/Vol] 101 mmol/L 98 - 10 7 mmol/L [facility] CO2 [Moles/Vol] 25 mmol/L 23 - 31 mmol/L [facility] Creatinine [Mass/Vol] 0.75 mg/dL 0.57 - 1.11 mg/dL [facility] GFR/1.73 sq M.predicted (S/P/Bld) [Vol rate/Area] 83.7 mL/min - PINF [facility] Glucose [Mass/Vol] 113 mg/dL 82 - 115 mg/dL [facility] Interpretation and review of laboratory results Abnormal [facility] Potassium [Moles/Vol] 4 mmol/L 3.5 - 5.1 mmol/L [facility] Sodium [Moles/Vol] 135 mmol/L Low 136 - 145 mmol/L [facility] Urea nitrogen [Mass/Vol] 11 mg/dL 9 - 23 mg/dL [facility] CBC (HEMOGRAM)on 06-21-2025 Erythrocyte distribution width (RBC) [Ratio] 15.5 % High 11.5-15.0 [facility] Comment on above: Performed By: #### L AB294 ####Moisture Machine Tender: MIGUEL LEAL ([id number])[address] Hematocrit (Bld) [Volume fraction] 24.5 % Low 35.0-47.0 [facility] Comment on above: Performed By: #### L AB294 ####Moisture Machine Tender: MIGUEL LEAL ([id number])[facility])[address] [place] [address] Hemoglobin (Bld) [Mass/Vol] 7.7 g/dL Low 11.7-16.0 [facility] Comment on above: Performed By: #### L AB294 ####Moisture Machine Tender: MIGUEL LEAL ([id number])[facility])[address] [place] [address] IPF 7 Normal [facility] Comment on above: Performed By: #### L AB294 ####Moisture Machine Tender: MIGUEL LEAL ([id number])[facility])[address] [place] [address] MCH (RBC) [Entitic mass] 30.1 pg Normal 26.0-34.0 [facility] Comment on above: Performed By: #### L AB294 ####Moisture Machine Tender: MIGUEL LEAL ([id number])[facility] ([facility])[address] [place] [address] MCHC 31.4 % Normal 30.5-36.0 [facility] Comment on above: Performed By: #### L AB294 ####Moisture Machine Tender: MIGUEL LEAL ([id number])[facility] ([facility])[address] [place] [address] MCV (RBC) [Entitic vol] 95.7 fL Normal 77.0-99.0 [facility] Comment on above: Performed By: #### L AB294 ####Moisture Machine Tender: MIGUEL LEAL ([id number])[facility] ([facility])[address] [place] [address] Platelet mean volume (Bld) [Entitic vol] 11.6 fL Normal 9.0-12.7 [facility] Comment on above: Performed By: #### L AB294 ####Moisture Machine Tender: MIGUEL LEAL ([id number])[facility] ([facility])[address] [place] [address] Platelets (Bld) [#/Vol] 122 10*3/uL Low 140-440 [facility] Comment on above: Performed By: #### L AB294 ####Moisture Machine Tender: MIGUEL LEAL ([id number])[facility] ([facility])[address] [place] [address] RBC (Bld) [#/Vol] 2.56 10*6/uL Low 3.80-5.20 [facility] Comment on above: Performed By: #### L AB294 ####Moisture Machine Tender: MIGUEL LEAL ([id number])[facility] ([facility])[address] [place] [address] WBC (Bld) [#/Vol] 8.0 10*3/uL Normal 3.6-10.7 [facility] Comment on above: Performed By: #### L AB294 ####Moisture Machine Tender: MIGUEL LEAL ([id number])[facility] ([address] CBC panel Auto (Bld)on 06-21 Erythrocyte distribution width (RBC) [Ratio] 15.5 % High 11.5 - 15.0 % [facility] Hematocrit (Bld) [Volume fraction] 24.5 % Low 35.0 - 47.0 % [facility] Hemoglobin (Bld) [Mass/Vol] 7.7 g/dL Low 11.7 - 16.0 g/dL [facility] Interpretation and review of laboratory results Abnormal [facility] IPF 7 [facility] MCH (RBC) [Entitic mass] 30.1 pg 26.0 - 34.0 pg [facility] MCHC (RBC) [Mass/Vol] 31.4 % 30.5 - 36.0 % [facility] MCV (RBC) [Entitic vol] 95.7 fL 77.0 - 99.0 fL [facility] Platelet mean volume (Bld) [Entitic vol] 11.6 fL 9.0 - 12.7 fL [facility] Platelets (Bld) [#/Vol] 122 10*3/uL Low 140 - 440 10*3/uL [facility] RBC (Bld) [#/Vol] 2.56 10*6/uL Low 3.80 - 5.2 0 10*6/uL [facility] WBC (Bld) [#/Vol] 8 10*3/uL 3.6 - 10.7 10*3/uL [facility] ECG 12-LEADon 06-21-2025 ECG 12-LEAD IMPRESSION: Sinus rhythm Compared to ECG 06/19/2025 05:25:37 T-wave abnormality no longer present Possible ischemia no longer present Electronically Signed On 06-21-2025 17:13:05 EDT by Ladarius Peng Normal [facility] Laboratory - Chemistry and C hemistry - challengeon 06-21-2025 Magnesium [Mass/Vol] 1.7 mg/dL 1.6 - 2 .6 mg/dL [facility] MAGNESIUMon 06-21-2025 Magnesium [Mass/Vol] 1.7 mg/dL Normal 1.6-2.6 [facility] Comment on above: Result Comment: ORDE R COMMENTS:Higher values can be expected in females during menses. Performed By: #### L AB103, LAB15 ####Moisture Machine Tender: MIGUEL LEAL ([id number])[facility] ([facility])[address] [place] [address] [place] Magnesium [Mass/Vol]on 06-21 Interpretation and review of laboratory results Normal [facility] No Panel Informationon 06-21 P [place] 48 degrees [facility] FL Interval 150 ms [facility] QRS [place] 61 degrees [facility] QRSD Interval 100 ms [facility] Interval 407 ms [facility] QTC Interval 430 ms [facility] T Wave [place] 0 degrees [facility] CV EPIPHANY [facility] Nursing Noteon 06-21-2025 Nursing Note Normal [facility] Progress Noteon 06-21-2025 Progress Note Normal [facility] Progress Note Normal [facility] Progress Note Normal [facility] Vital signson 06-21-2025 Heart rate 67 /min bpm [facility] XR CHEST 1 VIEWon 06-21-2025 XR CHEST 1 VIEW Normal [facility] XR Chest Single viewon 06-21 [facility] Radiology Study observation (narrative) [facility] BASIC METABOLIC PANELon 073 Anion gap [Moles/Vol] 8 mmol/L Normal 3-13 [facility] Comment on above: Performed By: #### L AB15, [id number] ####Moisture Machine Tender: MIGUEL LEAL ([id number])[facility] [place] [address] [place] Calcium [Mass/Vol] 9.0 mg/dL Normal 8.8-10.0 [facility] Comment on above: Performed By: #### L AB15, [id number] ####Moisture Machine Tender: MIGUEL LEAL ([id number])[facility] ([facility])[address] [place] [address] [place] Chloride [Moles/Vol] 101 mmol/L Normal 98-107 [facility] Comment on above: Performed By: #### L AB15, [id number] ####Moisture Machine Tender: MIGUEL LEAL ([id number])[facility])[address] [place] [address] CO2 [Moles/Vol] 25 mmol/L Normal 23-31 [facility] Comment on above: Performed By: #### L AB15, [id number] ####Moisture Machine Tender: MIGUEL LEAL ([id number])[facility])[address] [place] [address] Creatinine [Mass/Vol] 0.76 mg/dL Normal 0.57-1.11 [facility] Comment on above: Performed By: #### L AB15, [id number] ####Moisture Machine Tender: MIGUEL LEAL ([id number])[facility])[address] [place] [address] GLOMERULAR FILTRATION RATE ML/MIN/1.73 SQ M.PREDICTED 82.3 mL/min/1.73m*2 Normal >60.0 [facility] Comment on above: Result Comment: Calc ulation based on the Chronic Kidney Disease Epidemiology Collaboration (CKD-EPI) equation refit without adjustment for race Performed By: #### L AB15, [id number] ####Moisture Machine Tender: MIGUEL LEAL ([id number])[facility] ([facility])[address] [place] [address] Glucose [Mass/Vol] 146 mg/dL High 82-115 [facility] Comment on above: Performed By: #### L AB15, [id number] ####Moisture Machine Tender: MIGUEL LEAL ([id number])[facility])[address] [place] [address] [place] Potassium [Moles/Vol] 3.9 mmol/L Normal 3.5-5.1 [facility] Comment on above: Result Comment: [facility] potassium values may be up to 0.5 mmol/L lower than serum values. Performed By: #### L AB15, [id number] ####Moisture Machine Tender: MIGUEL LEAL ([id number])[facility])[address] [place] [address] Sodium [Moles/Vol] 134 mmol/L Low 136-145 [facility] Comment on above: Performed By: #### L AB15, [id number] ####Moisture Machine Tender: MIGUEL LEAL ([id number])[facility] [place] [address] Urea nitrogen [Mass/Vol] 13 mg/dL Normal 9-23 [facility] Comment on above: Performed By: #### L AB15, [id number] ####Moisture Machine Tender: MIGUEL LEAL ([id number])[facility] ([facility])[address] [place] [address] Basic metabolic 1998 panelon 06-20-2025 Anion gap [Moles/Vol] 8 mmol/L 3 - 13 mmol/L [facility] Calcium [Mass/Vol] 9 mg/dL 8.8 - 10. 0 mg/dL [facility] Chloride [Moles/Vol] 101 mmol/L 98 - 10 7 mmol/L [facility] CO2 [Moles/Vol] 25 mmol/L 23 - 31 mmol/L [facility] Creatinine [Mass/Vol] 0.76 mg/dL 0.57 - 1.11 mg/dL [facility] GFR/1.73 sq M.predicted (S/P/Bld) [Vol rate/Area] 82.3 mL/min - PINF [facility] Glucose [Mass/Vol] 146 mg/dL High 82 - 115 mg/dL [facility] Interpretation and review of laboratory results Abnormal [facility] Potassium [Moles/Vol] 3.9 mmol/L 3.5 - 5.1 mmol/L [facility] Sodium [Moles/Vol] 134 mmol/L Low 136 - 145 mmol/L [facility] Urea nitrogen [Mass/Vol] 13 mg/dL 9 - 23 mg/dL [facility] CBC (HEMOGRAM)on 06-20-2025 Erythrocyte distribution width (RBC) [Ratio] 15.7 % High 11.5-15.0 [facility] Comment on above: Performed By: #### L [id number] ####Moisture Machine Tender: MIGUEL LEAL ([id number])[facility] [address] Hematocrit (Bld) [Volume fraction] 27.1 % Low 35.0-47.0 [facility] Comment on above: Performed By: #### L AB294 ####Moisture Machine Tender: MIGUEL LEAL ([id number])[facility])[address] [place] [address] Hemoglobin (Bld) [Mass/Vol] 8.8 g/dL Low 11.7-16.0 [facility] Comment on above: Performed By: #### L AB294 ####Moisture Machine Tender: MIGUEL LEAL ([id number])[address] IPF 7 Normal [facility] Comment on above: Performed By: #### L AB294 ####Moisture Machine Tender: MIGUEL LEAL ([id number])[facility])[address] [place] [address] MCH (RBC) [Entitic mass] 30.8 pg Normal 26.0-34.0 [facility] Comment on above: Performed By: #### L AB294 ####Moisture Machine Tender: MIGUEL LEAL ([id number])[facility])[address] [place] [address] MCHC 32.5 % Normal 30.5-36.0 [facility] Comment on above: Performed By: #### L AB294 ####Moisture Machine Tender: MIGUEL LEAL ([id number])[facility])[address] [place] [address] MCV (RBC) [Entitic vol] 94.8 fL Normal 77.0-99.0 [facility] Comment on above: Performed By: #### L AB294 ####Moisture Machine Tender: MIGUEL LEAL ([id number])[facility])[address] [place] [address] Platelet mean volume (Bld) [Entitic vol] 11.7 fL Normal 9.0-12.7 [facility] Comment on above: Performed By: #### L AB294 ####Moisture Machine Tender: MIGUEL LEAL ([id number])[facility] ([facility])[address] [place] [address] Platelets (Bld) [#/Vol] 112 10*3/uL Low 140-440 [facility] Comment on above: Performed By: #### L AB294 ####Moisture Machine Tender: MIGUEL LEAL ([id number])[facility] ([facility])[address] [place] [address] RBC (Bld) [#/Vol] 2.86 10*6/uL Low 3.80-5.20 [facility] Comment on above: Performed By: #### L AB294 ####Moisture Machine Tender: MIGUEL LEAL ([id number])[facility] ([facility])[address] [place] [address] WBC (Bld) [#/Vol] 7.6 10*3/uL Normal 3.6-10.7 [facility] Comment on above: Performed By: #### L AB294 ####Moisture Machine Tender: MIGUEL LEAL ([id number])[facility])[address] [place] [address] CBC panel Auto (Bld)on 06-20 Erythrocyte distribution width (RBC) [Ratio] 15.7 % High 11.5 - 15.0 % [facility] Hematocrit (Bld) [Volume fraction] 27.1 % Low 35.0 - 47.0 % [facility] Hemoglobin (Bld) [Mass/Vol] 8.8 g/dL Low 11.7 - 16.0 g/dL [facility] Interpretation and review of laboratory results Abnormal [facility] IPF 7 [facility] MCH (RBC) [Entitic mass] 30.8 pg 26.0 - 34.0 pg [facility] MCHC (RBC) [Mass/Vol] 32.5 % 30.5 - 36.0 % [facility] MCV (RBC) [Entitic vol] 94.8 fL 77.0 - 99.0 fL [facility] cisimple Platelet mean volume (Bld) [Entitic vol] 11.7 fL 9.0 - 12.7 fL [facility] Platelets (Bld) [#/Vol] 112 10*3/uL Low 140 - 440 10*3/uL [facility] RBC (Bld) [#/Vol] 2.86 10*6/uL Low 3.80 - 5.2 0 10*6/uL [facility] WBC (Bld) [#/Vol] 7.6 10*3/uL 3.6 - 10.7 10*3/uL [facility] Laboratory - Chemistry and C hemistry - challengeon 06-20-2025 Glucose [Mass/Vol] 108 mg/dL High 70 - 100 mg/dL [facility] Magnesium [Mass/Vol] 2 mg/dL 1.6 - 2 .6 mg/dL [facility] MAGNESIUMon 06-20-2025 Magnesium [Mass/Vol] 2.0 mg/dL Normal 1.6-2.6 [facility] Comment on above: Result Comment: ROCIO Bhandari COMMENTS:Higher values can be expected in females during menses. Performed By: #### L AB15, [id number] ####Moisture Machine Tender: MIGUEL LEAL ([id number])[facility] ([address] Magnesium [Mass/Vol]on 06-20 Interpretation and review of laboratory results Normal [facility] No Panel Informationon 06-20 Interpretation and review of laboratory results Abnormal [facility] Progress Noteon 06-20-2025 Progress Note Normal [facility] Progress Note Normal [facility] Progress Note Normal [facility] Progress Note Normal [facility] Progress Note Normal [facility] Progress Note Normal [facility] XR CHEST 1 VIEWon 06-20-2025 XR CHEST 1 VIEW Normal [facility] XR Chest Single viewon 06-20 [facility] Radiology Study observation (narrative) [facility] [id number] 06-19-2025 [id number] Normal [facility] [id number] 06-19-2025 [id number] Normal [facility] BASIC METABOLIC PANELon 05-23 Anion gap [Moles/Vol] 10 mmol/L Normal 3-13 [facility] Comment on above: Performed By: #### L 103, LAB15 ####Moisture Machine Tender: MIGUEL LEAL ([id number])[facility] [place] [address] Calcium [Mass/Vol] 8.2 mg/dL Low 8.8-10.0 [facility] Comment on above: Performed By: #### L AB103, LAB15 ####Moisture Machine Tender: MIGUEL LEAL ([id number])[facility] [place] [address] Chloride [Moles/Vol] 109 mmol/L High 98-107 [facility] Comment on above: Performed By: #### L AB103, LAB15 ####Moisture Machine Tender: MIGUEL LEAL ([id number])[facility] [place] [address] CO2 [Moles/Vol] 20 mmol/L Low 23-31 [facility] Comment on above: Performed By: #### Jv WALLACE103, LAB15 ####Moisture Machine Tender: MIGUEL LEAL ([id number])[facility] ([facility])[address] [place] [address] Creatinine [Mass/Vol] 0.68 mg/dL Normal 0.57-1.11 [facility] Comment on above: Performed By: #### L 103, LAB15 ####Moisture Machine Tender: MIGUEL LEAL ([id number])[facility])[address] [place] [address] GLOMERULAR FILTRATION RATE ML/MIN/1.73 SQ M.PREDICTED >90.0 Normal >60.0 [facility] Comment on above: Result Comment: Calc ulation based on the Chronic Kidney Disease Epidemiology Collaboration (CKD-EPI) equation refit without adjustment for race Performed By: #### L AB103, LAB15 ####Moisture Machine Tender: MIGUEL LEAL ([id number])[facility] [place] [address] Glucose [Mass/Vol] 116 mg/dL High 82-115 [facility] Comment on above: Performed By: #### L AB103, LAB15 ####Moisture Machine Tender: MIGUEL LEAL ([id number])[facility])[address] [place] [address] Potassium [Moles/Vol] 4.1 mmol/L Normal 3.5-5.1 [facility] Comment on above: Result Comment: [facility] potassium values may be up to 0.5 mmol/L lower than serum values. Performed By: #### L AB103, LAB15 ####Moisture Machine Tender: MIGUEL LEAL ([id number])[facility])[address] [place] [address] Sodium [Moles/Vol] 139 mmol/L Normal 136-145 [facility] Comment on above: Performed By: #### L AB103, LAB15 ####Moisture Machine Tender: MIGUEL LEAL ([id number])[facility])[address] [place] [address] Urea nitrogen [Mass/Vol] 10 mg/dL Normal 9-23 [facility] Comment on above: Performed By: #### L AB103, LAB15 ####Moisture Machine Tender: MIGUEL LEAL ([id number])[facility])[address] [place] [address] BLOOD GAS ARTERIALon 025 AMOUNT OF OXYGEN 40 Normal [facility] Comment on above: Performed By: #### L AB76 ####Moisture Machine Tender: MIGUEL LEAL ([id number])[facility])[address] [place] [address] Base excess Calc (Bld) [Moles/Vol] 2.0 mmol/L Normal -3.0-3.0 [facility] Comment on above: Performed By: #### L AB76 ####Moisture Machine Tender: MIGUEL LEAL ([id number])[facility])[address] [place] [address] CO2 [Moles/Vol] 28.4 mmol/L High 23.0-27.0 [facility] Comment on above: Performed By: #### L AB76 ####Moisture Machine Tender: MIGUEL LEAL ([id number])[facility] ([facility])[address] [place] [address] HCO3 (Bld) [Moles/Vol] 27.0 mmol/L High 21.0-25.0 [facility] Comment on above: Performed By: #### L AB76 ####Moisture Machine Tender: MIGUEL LEAL ([id number])[facility] ([facility])[address] [place] [address] Hemoglobin (Bld) [Mass/Vol] 9.9 g/dL Normal Screen only [facility] Comment on above: Performed By: #### L AB76 ####Moisture Machine Tender: MIGUEL LEAL ([id number])[facility])[address] [place] [address] OXYGEN SATURATION (%) IN ARTERIAL BLOOD 98.9 % Normal 95.0-100.0 [facility] Comment on above: Performed By: #### L AB76 ####Moisture Machine Tender: MIGUEL LEAL ([id number])[facility] ([facility])[address] [place] [address] PCO2 ARTERIAL 44.1 mm Hg Normal >35.0-<45.0 [facility] Comment on above: Performed By: #### L AB76 ####Moisture Machine Tender: MIGUEL LEAL ([id number])[facility])[address] [place] [address] PH ARTERIAL 7.405 Normal 7.350-7.450 [facility] Comment on above: Performed By: #### L AB76 ####Moisture Machine Tender: MIGUEL LEAL ([id number])[facility])[address] [place] [address] PO2 ARTERIAL 147.2 mm Hg High 80.0-100.0 [facility] Comment on above: Performed By: #### L AB76 ####Moisture Machine Tender: MIGUEL LEAL ([id number])[facility])[address] [place] [address] SOURCE OF OXYGEN Non-Invasive Ventilator Normal [facility] Comment on above: Performed By: #### L AB76 ####Moisture Machine Tender: MIGUEL LEAL ([id number])[facility])[address] [place] [address] AMOUNT OF OXYGEN 40% Normal [facility] Comment on above: Performed By: #### L AB76 ####Moisture Machine Tender: MIGUEL LEAL ([id number])[facility])[address] [place] [address] Base excess Calc (Bld) [Moles/Vol] 1.4 mmol/L Normal -3.0-3.0 [facility] Comment on above: Performed By: #### L AB76 ####Moisture Machine Tender: MIGUEL LEAL ([id number])[facility])[address] [place] [address] CO2 [Moles/Vol] 28.4 mmol/L High 23.0-27.0 [facility] Comment on above: Performed By: #### L AB76 ####Moisture Machine Tender: MIGUEL LEAL ([id number])[facility])[address] [place] [address] HCO3 (Bld) [Moles/Vol] 27.0 mmol/L High 21.0-25.0 [facility] Comment on above: Performed By: #### L AB76 ####Moisture Machine Tender: MIGUEL LEAL ([id number])[facility])[address] [place] [address] Hemoglobin (Bld) [Mass/Vol] 9.0 g/dL Normal Screen only [facility] Comment on above: Performed By: #### L AB76 ####Moisture Machine Tender: MIGUEL LEAL ([id number])[facility])[address] [place] [address] OXYGEN SATURATION (%) IN ARTERIAL BLOOD 97.8 % Normal 95.0-100.0 [facility] Comment on above: Performed By: #### L AB76 ####Moisture Machine Tender: MIGUEL LEAL ([id number])[facility] ([facility])[address] [place] [address] PCO2 ARTERIAL 47.5 mm Hg High >35.0-<45.0 [facility] Comment on above: Performed By: #### L AB76 ####Moisture Machine Tender: MIGUEL LEAL ([id number])[facility] ([facility])[address] [place] [address] PH ARTERIAL 7.372 Normal 7.350-7.450 [facility] Comment on above: Performed By: #### L AB76 ####Moisture Machine Tender: MIGUEL LEAL ([id number])[facility])[address] [place] [address] PO2 ARTERIAL 109.4 mm Hg High 80.0-100.0 [facility] Comment on above: Performed By: #### L AB76 ####Moisture Machine Tender: MIGUEL LEAL ([id number])[facility] ([facility])[address] [place] [address] SOURCE OF OXYGEN Non-Invasive Ventilator Normal [facility] Comment on above: Performed By: #### L AB76 ####Moisture Machine Tender: MIGUEL LEAL ([id number])[facility])[address] [place] [address] AMOUNT OF OXYGEN 40% Normal [facility] Comment on above: Order Comment: 30 mi n after vent changes Performed By: #### L AB76 ####Moisture Machine Tender: MIGUEL LEAL ([id number])[facility] ([facility])[address] [place] [address] Base excess Calc (Bld) [Moles/Vol] -2.0000 mmol/L Normal -3.0-3.0 [facility] Comment on above: Order Comment: 30 mi n after vent changes Performed By: #### L AB76 ####Moisture Machine Tender: MIGUEL LEAL ([id number])[facility] ([facility])[address] [place] [address] CO2 [Moles/Vol] 26.6 mmol/L Normal 23.0-27.0 [facility] Comment on above: Order Comment: 30 mi n after vent changes Performed By: #### L AB76 ####Moisture Machine Tender: MIGUEL LEAL ([id number])[facility] ([facility])[address] [place] [address] HCO3 (Bld) [Moles/Vol] 24.9 mmol/L Normal 21.0-25.0 [facility] Comment on above: Order Comment: 30 mi n after vent changes Performed By: #### L AB76 ####Moisture Machine Tender: MIGUEL LEAL ([id number])[facility] ([facility])[address] [place] [address] Hemoglobin (Bld) [Mass/Vol] 8.8 g/dL Normal Screen only [facility] Comment on above: Order Comment: 30 mi n after vent changes Performed By: #### L AB76 ####Moisture Machine Tender: MIGUEL LEAL ([id number])[facility] ([facility])[address] [place] [address] OXYGEN SATURATION (%) IN ARTERIAL BLOOD 97.8 % Normal 95.0-100.0 [facility] Comment on above: Order Comment: 30 mi n after vent changes Performed By: #### L AB76 ####Moisture Machine Tender: MIGUEL LEAL ([id number])[facility] [place] [address] PCO2 ARTERIAL 54.0 mm Hg High >35.0-<45.0 [facility] Comment on above: Order Comment: 30 mi n after vent changes Performed By: #### L AB76 ####Moisture Machine Tender: MIGUEL LEAL ([id number])[facility] ([facility])[address] [place] [address] PH ARTERIAL 7.282 Low 7.350-7.450 [facility] Comment on above: Order Comment: 30 mi n after vent changes Performed By: #### L AB76 ####Moisture Machine Tender: MIGUEL LEAL ([id number])[facility] [place] [address] PO2 ARTERIAL 122.3 mm Hg High 80.0-100.0 [facility] Comment on above: Order Comment: 30 mi n after vent changes Performed By: #### L AB76 ####Moisture Machine Tender: MIGUEL LEAL ([id number])[facility] ([facility])[address] [place] [address] SOURCE OF OXYGEN Non-Invasive Ventilator Normal [facility] Comment on above: Order Comment: 30 mi n after vent changes Performed By: #### L AB76 ####Moisture Machine Tender: MIGUEL LEAL ([id number])[facility] ([facility])[address] [place] [address] AMOUNT OF OXYGEN 40% Normal [facility] Comment on above: Order Comment: 30 mi n after vent changes Performed By: #### L AB76 ####Moisture Machine Tender: MIGUEL LEAL ([id number])[facility] ([facility])[address] [place] [address] Base excess Calc (Bld) [Moles/Vol] -1.2000 mmol/L Normal -3.0-3.0 [facility] Comment on above: Order Comment: 30 mi n after vent changes Performed By: #### L AB76 ####Moisture Machine Tender: MIGUEL LEAL ([id number])[facility] ([facility])[address] [place] [address] CO2 [Moles/Vol] 27.9 mmol/L High 23.0-27.0 [facility] Comment on above: Order Comment: 30 mi n after vent changes Performed By: #### L AB76 ####Moisture Machine Tender: MIGUEL LEAL ([id number])[facility] ([facility])[address] [place] [address] HCO3 (Bld) [Moles/Vol] 26.2 mmol/L High 21.0-25.0 [facility] Comment on above: Order Comment: 30 mi n after vent changes Performed By: #### L AB76 ####Moisture Machine Tender: MIGUEL LEAL ([id number])[facility] [place] [address] Hemoglobin (Bld) [Mass/Vol] 9.1 g/dL Normal Screen only [facility] Comment on above: Order Comment: 30 mi n after vent changes Performed By: #### L AB76 ####Moisture Machine Tender: MIGUEL LEAL ([id number])[facility] [place] [address] OXYGEN SATURATION (%) IN ARTERIAL BLOOD 97.1 % Normal 95.0-100.0 [facility] Comment on above: Order Comment: 30 mi n after vent changes Performed By: #### L [id number] ####Moisture Machine Tender: MIGUEL LEAL ([id number])[facility] ([facility])[address] [place] [address] PCO2 ARTERIAL 58.4 mm Hg High >35.0-<45.0 [facility] Comment on above: Order Comment: 30 mi n after vent changes Performed By: #### L [id number] ####Moisture Machine Tender: MIGUEL LEAL ([id number])[facility] [place] [address] PH ARTERIAL 7.269 Low 7.350-7.450 [facility] Comment on above: Order Comment: 30 mi n after vent changes Performed By: #### L [id number] ####Moisture Machine Tender: MIGUEL LEAL ([id number])[facility] [place] [address] PO2 ARTERIAL 112.9 mm Hg High 80.0-100.0 [facility] Comment on above: Order Comment: 30 mi n after vent changes Performed By: #### L [id number] ####Moisture Machine Tender: MIGUEL LEAL ([id number])[facility] ([facility])[address] [place] [address] SOURCE OF OXYGEN Non-Invasive Ventilator Normal [facility] Comment on above: Order Comment: 30 mi n after vent changes Performed By: #### L [id number] ####Moisture Machine Tender: MIGUEL LEAL ([id number])[facility] ([address] Basic metabolic 1998 panelOr dered By: Andie Vera on 06-19-2025 Anion gap [Moles/Vol] 10 mmol/L 3 - 13 mmol/L [facility] Calcium [Mass/Vol] 8.2 mg/dL Low 8.8 - 10. 0 mg/dL [facility] Chloride [Moles/Vol] 109 mmol/L High 98 - 10 7 mmol/L [facility] CO2 [Moles/Vol] 20 mmol/L Low 23 - 31 mmol/L [facility] Creatinine [Mass/Vol] 0.68 mg/dL 0.57 - 1.11 mg/dL [facility] GFR/1.73 sq M.predicted (S/P/Bld) [Vol rate/Area] - PINF [facility] Glucose [Mass/Vol] 116 mg/dL High 82 - 115 mg/dL [facility] Potassium [Moles/Vol] 4.1 mmol/L 3.5 - 5.1 mmol/L [facility] Sodium [Moles/Vol] 139 mmol/L 136 - 145 mmol/L [facility] Urea nitrogen [Mass/Vol] 10 mg/dL 9 - 23 mg/dL [facility] CALCIUM, IONIZEDon CALCIUM IONIZED 4.10 mg/dL Low 4.30-5.20 [facility] Comment on above: Order Comment: Obtai n PRN and check ionized Ca level if serum Ca level less than 8.0 Performed By: #### L AB54 ####Moisture Machine Tender: MIGUEL LEAL ([id number])[facility] ([facility])[address] [place] [address] PH, IONIZED CALCIUM 7.39 Normal 7.31-7.46 [facility] Comment on above: Order Comment: Obtai n PRN and check ionized Ca level if serum Ca level less than 8.0 Performed By: #### L AB54 ####Moisture Machine Tender: MIGUEL LEAL ([id number])[facility])[address] [place] [address] CBC (HEMOGRAM)on 06-19-2025 Erythrocyte distribution width (RBC) [Ratio] 15.7 % High 11.5-15.0 [facility] Comment on above: Performed By: #### L [id number] ####Moisture Machine Tender: MIGUEL LEAL ([id number])[facility])[address] [place] [address] Hematocrit (Bld) [Volume fraction] 26.7 % Low 35.0-47.0 [facility] Comment on above: Performed By: #### L AB294 ####Moisture Machine Tender: MIGUEL LEAL ([id number])[facility])[address] [place] [address] Hemoglobin (Bld) [Mass/Vol] 8.8 g/dL Low 11.7-16.0 [facility] Comment on above: Performed By: #### L [id number] ####Moisture Machine Tender: MIGUEL LEAL ([id number])[facility])[address] [place] [address] IPF 6 Normal [facility] Comment on above: Performed By: #### L [id number] ####Moisture Machine Tender: MIGUEL LEAL ([id number])[facility])[address] [place] [address] MCH (RBC) [Entitic mass] 31.4 pg Normal 26.0-34.0 [facility] Comment on above: Performed By: #### L AB294 ####Moisture Machine Tender: MIGUEL LEAL ([id number])[facility])[address] [place] [address] MCHC 33.0 % Normal 30.5-36.0 [facility] Comment on above: Performed By: #### L AB294 ####Moisture Machine Tender: MIGUEL LEAL ([id number])[facility])[address] [place] [address] MCV (RBC) [Entitic vol] 95.4 fL Normal 77.0-99.0 [facility] Comment on above: Performed By: #### L [id number] ####Moisture Machine Tender: MIGUEL LEAL ([id number])[facility])[address] [place] [address] Platelet mean volume (Bld) [Entitic vol] 10.8 fL Normal 9.0-12.7 [facility] Comment on above: Performed By: #### L AB294 ####Moisture Machine Tender: MIGUEL LEAL ([id number])[facility] ([facility])[address] [place] [address] Platelets (Bld) [#/Vol] 110 10*3/uL Low 140-440 [facility] Comment on above: Performed By: #### L [id number] ####Moisture Machine Tender: MIGUEL LEAL ([id number])[facility] ([facility])[address] [place] [address] RBC (Bld) [#/Vol] 2.80 10*6/uL Low 3.80-5.20 [facility] Comment on above: Performed By: #### L [id number] ####Moisture Machine Tender: MIGUEL LEAL ([id number])[facility] ([facility])[address] [place] [address] WBC (Bld) [#/Vol] 7.8 10*3/uL Normal 3.6-10.7 [facility] Comment on above: Performed By: #### L [id number] ####Moisture Machine Tender: MIGUEL LEAL ([id number])[facility])[address] [place] [address] CBC panel Auto (Bld)on 06-19 Erythrocyte distribution width (RBC) [Ratio] 15.7 % High 11.5 - 15.0 % [facility] Hematocrit (Bld) [Volume fraction] 26.7 % Low 35.0 - 47.0 % [facility] Hemoglobin (Bld) [Mass/Vol] 8.8 g/dL Low 11.7 - 16.0 g/dL [facility] Interpretation and review of laboratory results Abnormal [facility] IPF 6 [facility] MCH (RBC) [Entitic mass] 31.4 pg 26.0 - 34.0 pg [facility] MCHC (RBC) [Mass/Vol] 33 % 30.5 - 36.0 % [facility] MCV (RBC) [Entitic vol] 95.4 fL 77.0 - 99.0 fL [facility] Platelet mean volume (Bld) [Entitic vol] 10.8 fL 9.0 - 12.7 fL [facility] Platelets (Bld) [#/Vol] 110 10*3/uL Low 140 - 440 10*3/uL [facility] RBC (Bld) [#/Vol] 2.8 10*6/uL Low 3.80 - 5.2 0 10*6/uL [facility] WBC (Bld) [#/Vol] 7.8 10*3/uL 3.6 - 10.7 10*3/uL [facility] Calcium.ionized [Moles/Vol]o n 06-19-2025 Calcium.ionized (Bld) [Moles/Vol] 4.1 mg/dL Low 4.30 - 5.20 mg/dL [facility] PH, IONIZED CALCIUM 7.39 7.31 - 7.46 [facility] Consulton 06-19-2025 Consult Normal [facility] Consult Normal [facility] Consult Normal [facility] ECG 12-LEADon 06-19-2025 ECG 12-LEAD IMPRESSION: Sinus rhythm ABNORMAL T, CONSIDER ISCHEMIA, ANTERIOR LEADS Electronically Signed On 06-19-2025 10:23:20 EDT by Thelma Leiva [facility] ECG 12-LEAD IMPRESSION: Sinus bradycardia Right bundle branch block REPOL ABNRM SUGGESTS ISCHEMIA, DIFFUSE LEADS Electronically Signed On 06-19-2025 10:10:41 EDT by Thelma Leiva [facility] Laboratory - Chemistry and C hemistry - challengeon 06-19-2025 Glucose [Mass/Vol] 172 mg/dL High 70 - 100 mg/dL [facility] Glucose [Mass/Vol] 130 mg/dL High 70 - 100 mg/dL [facility] Glucose [Mass/Vol] 170 mg/dL High 70 - 100 mg/dL [facility] Glucose [Mass/Vol] 127 mg/dL High 70 - 100 mg/dL [facility] Glucose [Mass/Vol] 135 mg/dL High 70 - 100 mg/dL [facility] Base excess Calc (Bld) [Moles/Vol] 1.4 mmol/L -3.0 - 3.0 mmol/L [facility] CO2 (Bld) [Partial pressure] 47.5 mm[Hg] High - PINF [facility] CO2 [Moles/Vol] 28.4 mmol/L High 23.0 - 27.0 mmol/L [facility] HCO3 (Bld) [Moles/Vol] 27 mmol/L High 21.0 - 25.0 mmol/L [facility] Oxygen (Bld) [Partial pressure] 109.4 mm[Hg] High [facility] pH (Bld) 7.372 [pH] 7.350 - 7.450 [facility] Glucose [Mass/Vol] 127 mg/dL High 70 - 100 mg/dL [facility] Base excess Calc (Bld) [Moles/Vol] -2 mmol/L -3.0 - 3.0 mmol/L [facility] CO2 (Bld) [Partial pressure] 54 mm[Hg] High - PINF [facility] CO2 [Moles/Vol] 26.6 mmol/L 23.0 - 27.0 mmol/L [facility] HCO3 (Bld) [Moles/Vol] 24.9 mmol/L 21.0 - 25.0 mmol/L [facility] Oxygen (Bld) [Partial pressure] 122.3 mm[Hg] High [facility] pH (Bld) 7.282 [pH] Low 7.350 - 7.450 [facility] Glucose [Mass/Vol] 127 mg/dL High 70 - 100 mg/dL [facility] Magnesium [Mass/Vol] 2.3 mg/dL 1.6 - 2 .6 mg/dL [facility] Glucose [Mass/Vol] 121 mg/dL High 70 - 100 mg/dL [facility] Glucose [Mass/Vol] 117 mg/dL High 70 - 100 mg/dL [facility] Laboratory - Chemistry and C hemistry - challengeOrdered By: Mer Lee on 06-19-2025 Base excess Calc (Bld) [Moles/Vol] 2 mmol/L -3.0 - 3.0 mmol/L [facility] CO2 (Bld) [Partial pressure] 44.1 mm[Hg] - PINF [facility] CO2 [Moles/Vol] 28.4 mmol/L High 23.0 - 27.0 mmol/L [facility] HCO3 (Bld) [Moles/Vol] 27 mmol/L High 21.0 - 25.0 mmol/L [facility] Oxygen (Bld) [Partial pressure] 147.2 mm[Hg] High [facility] pH (Bld) 7.405 [pH] 7.350 - 7.450 [facility] Laboratory - Chemistry and C hemistry - challengeOrdered By: Estephanai White on 06-19-2025 Base excess Calc (Bld) [Moles/Vol] -1.2000 mmol/L -3.0 - 3.0 mmol/L [facility] CO2 (Bld) [Partial pressure] 58.4 mm[Hg] High - PINF [facility] CO2 [Moles/Vol] 27.9 mmol/L High 23.0 - 27.0 mmol/L [facility] HCO3 (Bld) [Moles/Vol] 26.2 mmol/L High 21.0 - 25.0 mmol/L [facility] Oxygen (Bld) [Partial pressure] 112.9 mm[Hg] High [facility] pH (Bld) 7.269 [pH] Low 7.350 - 7.450 [facility] Laboratory - Coagulationon 0 06-19-2025 aPTT Coag (PPP) [Time] 53.7 s High 20.0 - 30.5 s [facility] INR Coag (PPP) [Relative time] 1.1 {INR} 0.9 - 1.1 [facility] PT Coag (Bld) [Time] 11.3 s 9.0 - 1 2.0 s [facility] Laboratory - Hematology and Cell countsOrdered By: Mer Lee on 06-19-2025 Hemoglobin (Bld) [Mass/Vol] 9.9 g/dL 7.0 g/dl [facility] Laboratory - Hematology and Cell countson 06-19-2025 Hemoglobin (Bld) [Mass/Vol] 9 g/dL 7.0 g/dl [facility] Hemoglobin (Bld) [Mass/Vol] 8.8 g/dL 7.0 g/dl [facility] Laboratory - Hematology and Cell countsOrdered By: Estephania White on 06-19-2025 Hemoglobin (Bld) [Mass/Vol] 9.1 g/dL 7.0 g/dl [facility] MAGNESIUMon 06-19-2025 Magnesium [Mass/Vol] 2.3 mg/dL Normal 1.6-2.6 [facility] Comment on above: Result Comment: ORDE R COMMENTS:Higher values can be expected in females during menses. Performed By: #### L [id number], LAB15 ####Moisture Machine Tender: MIGUEL LEAL ([id number])[address] Magnesium [Mass/Vol]on 06-19 Interpretation and review of laboratory results Normal [facility] No Panel Informationon 06-19 Interpretation and review of laboratory results Abnormal [facility] Interpretation and review of laboratory results Abnormal [facility] Interpretation and review of laboratory results Abnormal [facility] P [place] 34 degrees [facility] FL Interval 162 ms [facility] QRS [place] 29 degrees [facility] QRSD Interval 92 ms [facility] QT Interval 390 ms [facility] QTC Interval 445 ms [facility] T Wave [place] 29 degrees [facility] CV EPIPHANY [facility] CV [facility] Interpretation and review of laboratory results Abnormal [facility] Amount Of Oxygen 40% [facility] alth Interpretation and review of laboratory results Abnormal [facility] Source Of Oxygen Non-Invasive Ventilator [facility] Interpretation and review of laboratory results Abnormal [facility] Amount Of Oxygen 40% [facility] alth Interpretation and review of laboratory results Abnormal [facility] Source Of Oxygen Non-Invasive Ventilator [facility] Interpretation and review of laboratory results Abnormal [facility] Interpretation and review of laboratory results Abnormal [facility] Interpretation and review of laboratory results Abnormal [facility] Interpretation and review of laboratory results Abnormal [facility] Interpretation and review of laboratory results Abnormal [facility] No Panel InformationOrdered By: Thelma Leiva on 06-19-2025 P [place] 75 degrees [facility] Work Phone: FL Interval 205 ms [facility] Work Phone: QRS [place] 73 degrees [facility] Work Phone: QRSD Interval 140 ms [facility] Work Phone: QT Interval 508 ms [facility] Work Phone: QTC Interval 497 ms [facility] Work Phone: [phone] T Wave [place] -66 degrees [facility] Work Phone: [phone] [facility] Work Phone: [phone] No Panel InformationOrdered By: Mer Lee on 06-19-2025 Amount Of Oxygen 40 [facility] Interpretation and review of laboratory results Abnormal [facility] Source Of Oxygen Non-Invasive Ventilator [facility] No Panel InformationOrdered By: Estephania White on 06-19-2025 [facility] Interpretation and review of laboratory results Abnormal [facility] Source Of Oxygen Non-Invasive Ventilator [facility] PROTIME AND APTTon aPTT Coag (Bld) [Time] 53.7 s High 20.0-30.5 [facility] Comment on above: Performed By: #### L [id number] ####Moisture Machine Tender: MIGUEL LEAL ([id number])[facility] INR Coag (PPP) [Relative time] 1.1 {INR} Normal 0.9-1.1 [facility] Comment on above: Result Comment: [place] [...] prevent Myocardial Infarction Performed By: #### L [id number] ####Moisture Machine Tender: MIGUEL LEAL ([id number])[facility] PT Coag (PPP) [Time] 11.3 s Normal 9.0-12.0 [facility] Comment on above: Performed By: #### L [id number] ####Moisture Machine Tender: MIGUEL [id number])[facility] ([facility])[address] [place] [address] Progress Noteon 06-19-2025 Progress Note Normal [facility] Progress Note Normal [facility] Progress Note Normal [facility] Vital signson 06-19-2025 Heart rate 78 /min bpm [facility] Vital signsOrdered By: Thelma Leiva on 06-19-2025 Heart rate 57 /min bpm [facility] Work Phone: XR CHEST 1 VIEWon 06-19-2025 XR CHEST 1 VIEW Normal [facility] XR Chest Single viewon 06-19 [facility] Radiology Study observation (narrative) [facility] XR Chest Single viewOrdered By: Ladarius Luciano on 06-19-2025 [facility] [employer] Phone: [phone] 06-18-2025 [id number] Normal [facility] ABO and Rh group Confirm Nom (Bld)on 06-18-2025 ABO group Nom (Bld) A [facility] D Ag Ql (RBC) Positive [facility] APTTon 06-18-2025 aPTT Coag (Bld) [Time] 61.2 s High 20.0-30.5 [facility] Comment on above: Result Comment: ROCIO Bhandari COMMENTS:NOTE: The therapeutic time for Heparin anticoagulation, based on Xa activity inhibition, is an APTT of 46-80 seconds. Performed By: #### L [id number] ####Moisture Machine Tender: MIGUEL LEAL ([id number])[facility] ([facility])[address] [place] [address] aPTT Coag (Bld) [Time] 49.3 s High 20.0-30.5 [facility] Comment on above: Result Comment: RCOIO Bhandari COMMENTS:NOTE: The therapeutic time for Heparin anticoagulation, based on Xa activity inhibition, is an APTT of 46-80 seconds. Performed By: #### L [id number] ####Moisture Machine Tender: MIGUEL LEAL ([id number])[facility] ([facility])[address] [place] [address] Airwayon 06-18-2025 Nareshconstance Motta CRNA 06/18/2025 12:40 PM Airway Date/Time: 06/18/2025 12:06 PM Reason: scheduled Airway not difficult General Information and Staff Patient location during procedure: Procedural Resident/DOOR CLAMP OPERATOR: Naresh Motta CRNA Performed: DOOR CLAMP OPERATOR Patient Condition Indications for airway management: airway [...] 21 Number of attempts at approach: 1 [facility] Anesthesia Noteon 06-18-2025 Anesthesia Note Normal [facility] Anesthesia Note Normal [facility] Arterial Lineon 06-18-2025 Naresh Motta CRNA [...] procedure well with no complications. Staffing Performed: [facility] BASIC METABOLIC PANELon 07- Anion gap [Moles/Vol] 8 mmol/L Normal 3-13 [facility] Comment on above: Performed By: #### L AB113, [id number], LAB15 ####Moisture Machine Tender: MIGUEL LEAL ([id number])[facility] ([address] Calcium [Mass/Vol] 10.6 mg/dL High 8.8-10.0 [facility] Comment on above: Performed By: #### L AB113, [id number], LAB15 ####Moisture Machine Tender: MIGUEL LEAL ([id number])[facility] [place] [address] Chloride [Moles/Vol] 109 mmol/L High 98-107 [facility] Comment on above: Performed By: #### L AB113, [id number], LAB15 ####Moisture Machine Tender: MIGUEL LEAL ([id number])[facility] [place] [address] CO2 [Moles/Vol] 20 mmol/L Low 23-31 [facility] Comment on above: Performed By: #### L AB113, [id number], LAB15 ####Moisture Machine Tender: MIGUEL LEAL ([id number])[facility] ([facility])[address] [place] [address] Creatinine [Mass/Vol] 0.80 mg/dL Normal 0.57-1.11 [facility] Comment on above: Performed By: #### L AB113, [id number], LAB15 ####Moisture Machine Tender: MIGUEL LEAL ([id number])[facility] ([facility])[address] [place] [address] GLOMERULAR FILTRATION RATE ML/MIN/1.73 SQ M.PREDICTED 77.4 mL/min/1.73m*2 Normal >60.0 [facility] Comment on above: Result Comment: Calc ulation based on the Chronic Kidney Disease Epidemiology Collaboration (CKD-EPI) equation refit without adjustment for race Performed By: #### L AB113, [id number], LAB15 ####Moisture Machine Tender: MIGUEL LEAL ([id number])[facility] ([facility])[address] [place] [address] Glucose [Mass/Vol] 115 mg/dL Normal 82-115 [facility] Comment on above: Performed By: #### L AB113, [id number], LAB15 ####Moisture Machine Tender: MIGUEL LEAL ([id number])[facility])[address] [place] [address] Potassium [Moles/Vol] 4.4 mmol/L Normal 3.5-5.1 [facility] Comment on above: Result Comment: [facility] potassium values may be up to 0.5 mmol/L lower than serum values. Performed By: #### L AB113, [id number], LAB15 ####Moisture Machine Tender: MIGUEL LEAL ([id number])[facility] [place] [address] Sodium [Moles/Vol] 137 mmol/L Normal 136-145 [facility] Comment on above: Performed By: #### L AB113, [id number], LAB15 ####Moisture Machine Tender: MIGUEL LEAL ([id number])[facility] ([facility])[address] [place] [address] Urea nitrogen [Mass/Vol] 12 mg/dL Normal 9-23 [facility] Comment on above: Performed By: #### L AB113, [id number], LAB15 ####Moisture Machine Tender: MIGUEL LEAL ([id number])[facility] [place] [address] BLOOD GAS ARTERIALon 025 AMOUNT OF OXYGEN 40% Normal [facility] Comment on above: Order Comment: 30 mi n after vent changes Performed By: #### L AB76 ####Moisture Machine Tender: MIGUEL LEAL ([id number])[facility] ([facility])[address] [place] [address] Base excess Calc (Bld) [Moles/Vol] -3.1000 mmol/L Low -3.0-3.0 [facility] Comment on above: Order Comment: 30 mi n after vent changes Performed By: #### L AB76 ####Moisture Machine Tender: MIGUEL LEAL ([id number])[facility] ([facility])[address] [place] [address] CO2 [Moles/Vol] 24.9 mmol/L Normal 23.0-27.0 [facility] Comment on above: Order Comment: 30 mi n after vent changes Performed By: #### L AB76 ####Moisture Machine Tender: MIGUEL LEAL ([id number])[facility])[address] [place] [address] HCO3 (Bld) [Moles/Vol] 23.4 mmol/L Normal 21.0-25.0 [facility] Comment on above: Order Comment: 30 mi n after vent changes Performed By: #### L AB76 ####Moisture Machine Tender: MIGUEL LEAL ([id number])[facility] ([facility])[address] [place] [address] Hemoglobin (Bld) [Mass/Vol] 9.2 g/dL Normal Screen only [facility] Comment on above: Order Comment: 30 mi n after vent changes Performed By: #### L AB76 ####Moisture Machine Tender: MIGUEL LEAL ([id number])[facility])[address] [place] [address] OXYGEN SATURATION (%) IN ARTERIAL BLOOD 98.4 % Normal 95.0-100.0 [facility] Comment on above: Order Comment: 30 mi n after vent changes Performed By: #### L AB76 ####Moisture Machine Tender: MIGUEL LEAL ([id number])[facility] ([facility])[address] [place] [address] PCO2 ARTERIAL 48.6 mm Hg High >35.0-<45.0 [facility] Comment on above: Order Comment: 30 mi n after vent changes Performed By: #### L AB76 ####Moisture Machine Tender: MIGUEL LEAL ([id number])[facility] ([facility])[address] [place] [address] PH ARTERIAL 7.300 Low 7.350-7.450 [facility] Comment on above: Order Comment: 30 mi n after vent changes Performed By: #### L [id number] ####Moisture Machine Tender: MIGUEL LEAL ([id number])[facility] ([facility])[address] [place] [address] PO2 ARTERIAL 159.7 mm Hg High 80.0-100.0 [facility] Comment on above: Order Comment: 30 mi n after vent changes Performed By: #### L [id number] ####Moisture Machine Tender: MIGUEL LEAL ([id number])[facility] [place] [address] SOURCE OF OXYGEN Ventilator Normal [facility] Comment on above: Order Comment: 30 mi n after vent changes Performed By: #### L [id number] ####Moisture Machine Tender: MIGUEL LEAL ([id number])[facility] ([facility])[address] [place] [address] AMOUNT OF OXYGEN [address] [facility] Comment on above: Performed By: #### L [id number] ####Moisture Machine Tender: MIGUEL LEAL ([id number])[facility] ([facility])[address] [place] [address] Base excess Calc (Bld) [Moles/Vol] -1.5000 mmol/L Normal -3.0-3.0 [facility] Comment on above: Performed By: #### L [id number] ####Moisture Machine Tender: MIGUEL LEAL ([id number])[facility] ([facility])[address] [place] [address] CO2 [Moles/Vol] 24.4 mmol/L Normal 23.0-27.0 [facility] Comment on above: Performed By: #### L [id number] ####Moisture Machine Tender: MIGUEL LEAL ([id number])[facility] ([facility])[address] [place] [address] HCO3 (Bld) [Moles/Vol] 23.2 mmol/L Normal 21.0-25.0 [facility] Comment on above: Performed By: #### L [id number] ####Moisture Machine Tender: MIGUEL LEAL ([id number])[facility] ([facility])[address] [place] [address] Hemoglobin (Bld) [Mass/Vol] 8.2 g/dL Normal Screen only [facility] Comment on above: Performed By: #### L [id number] ####Moisture Machine Tender: MIGUEL LEAL ([id number])[facility] ([facility])[address] [place] [address] OXYGEN SATURATION (%) IN ARTERIAL BLOOD 99.8 % Normal 95.0-100.0 [facility] Comment on above: Performed By: #### L [id number] ####Moisture Machine Tender: MIGUEL LEAL ([id number])[facility] ([facility])[address] [place] [address] PCO2 ARTERIAL 38.9 mm Hg Normal >35.0-<45.0 [facility] Comment on above: Performed By: #### L [id number] ####Moisture Machine Tender: MIGUEL LEAL ([id number])[facility] ([facility])[address] [place] [address] PH ARTERIAL 7.394 Normal 7.350-7.450 [facility] Comment on above: Performed By: #### L [id number] ####Moisture Machine Tender: MIGUEL LEAL ([id number])[facility] ([facility])[address] [place] [address] PO2 ARTERIAL 359.3 mm Hg High 80.0-100.0 [facility] Comment on above: Performed By: #### L [id number] ####Moisture Machine Tender: MIGUEL LEAL ([id number])[facility] ([facility])[address] [place] [address] SOURCE OF OXYGEN Ventilator Normal [facility] Comment on above: Performed By: #### L [id number] ####Moisture Machine Tender: MIGUEL LEAL ([id number])[facility] ([facility])[address] [place] [address] BLOOD TYPE AND SCREEN GELon 06-18-2025 ABO GROUPING A Normal [facility] Comment on above: Order Comment: Speci men is valid for 3 days - nurse to verify valid specimen Performed By: #### L [id number] ####Moisture Machine Tender: MIGUEL LEAL ([id number])[facility] ([facility])[address] [place] [address] RH TYPE IN BLOOD Positive Normal [facility] Comment on above: Order Comment: Speci men is valid for 3 days - nurse to verify valid specimen Performed By: #### L [id number] ####Moisture Machine Tender: MIGUEL LEAL ([id number])[facility] ([facility])[address] [place] [address] Basic metabolic 1998 panelon 06-18-2025 Anion gap [Moles/Vol] 8 mmol/L 3 - 13 mmol/L [facility] Calcium [Mass/Vol] 10.6 mg/dL High 8.8 - 10. 0 mg/dL [facility] Chloride [Moles/Vol] 109 mmol/L High 98 - 10 7 mmol/L [facility] CO2 [Moles/Vol] 20 mmol/L Low 23 - 31 mmol/L [facility] Creatinine [Mass/Vol] 0.8 mg/dL 0.57 - 1.11 mg/dL [facility] GFR/1.73 sq M.predicted (S/P/Bld) [Vol rate/Area] 77.4 mL/min - PINF [facility] Glucose [Mass/Vol] 115 mg/dL 82 - 115 mg/dL [facility] Potassium [Moles/Vol] 4.4 mmol/L 3.5 - 5.1 mmol/L [facility] Sodium [Moles/Vol] 137 mmol/L 136 - 145 mmol/L [facility] Urea nitrogen [Mass/Vol] 12 mg/dL 9 - 23 mg/dL [facility] Blood type and Crossmatch pa nav (Bld)on 06-18-2025 ABO group Nom (Bld) A [facility] Blood group antibody screen GEL Ql Negative [facility] D Ag Ql (RBC) Positive [facility] CALCIUM, IONIZEDon 5 CALCIUM IONIZED 6.00 mg/dL High 4.30-5.20 [facility] Comment on above: Performed By: #### L [id number] ####Moisture Machine Tender: MIGUEL LEAL ([id number])[facility] ([facility])[address] [place] [address] PH, IONIZED CALCIUM 7.41 Normal 7.31-7.46 [facility] Comment on above: Performed By: #### L AB54 ####Moisture Machine Tender: MIGUEL LEAL ([id number])[facility] ([facility])[address] [place] [address] CALCIUM IONIZED 4.60 mg/dL Normal 4.30-5.20 [facility] Comment on above: Performed By: #### L AB54 ####Moisture Machine Tender: MIGUEL LEAL ([id number])[facility])[address] [place] [address] PH, IONIZED CALCIUM 7.42 Normal 7.31-7.46 [facility] Comment on above: Performed By: #### L AB54 ####Moisture Machine Tender: MIGUEL LEAL ([id number])[facility])[address] [place] [address] CBC (HEMOGRAM)on 06-18-2025 Erythrocyte distribution width (RBC) [Ratio] 13.6 % Normal 11.5-15.0 [facility] Comment on above: Performed By: #### L [id number] ####Moisture Machine Tender: MIGUEL LEAL ([id number])[address] Hematocrit (Bld) [Volume fraction] 22.5 % Low 35.0-47.0 [facility] Comment on above: Performed By: #### L [id number] ####Moisture Machine Tender: MIGUEL LEAL ([id number])[address] Hemoglobin (Bld) [Mass/Vol] 7.3 g/dL Low 11.7-16.0 [facility] Comment on above: Performed By: #### L [id number] ####Moisture Machine Tender: MIGUEL LEAL ([id number])[address] IPF 6 Normal [facility] Comment on above: Performed By: #### L [id number] ####Moisture Machine Tender: MIGUEL LEAL ([id number])[address] MCH (RBC) [Entitic mass] 31.5 pg Normal 26.0-34.0 [facility] Comment on above: Performed By: #### L [id number] ####Moisture Machine Tender: MIGUEL LEAL ([id number])[facility])[address] [place] [address] MCHC 32.4 % Normal 30.5-36.0 [facility] Comment on above: Performed By: #### L [id number] ####Moisture Machine Tender: MIGUEL LEAL ([id number])[facility] ([facility])[address] [place] [address] MCV (RBC) [Entitic vol] 97.0 fL Normal 77.0-99.0 [facility] Comment on above: Performed By: #### L [id number] ####Moisture Machine Tender: MIGUEL LEAL ([id number])[facility])[address] [place] [address] Platelet mean volume (Bld) [Entitic vol] 10.9 fL Normal 9.0-12.7 [facility] Comment on above: Performed By: #### L [id number] ####Moisture Machine Tender: MIGUEL LEAL ([id number])[facility] ([facility])[address] [place] [address] Platelets (Bld) [#/Vol] 99 10*3/uL Low 140-440 [facility] Comment on above: Performed By: #### L [id number] ####Moisture Machine Tender: MIGUEL LEAL ([id number])[facility])[address] [place] [address] RBC (Bld) [#/Vol] 2.32 10*6/uL Low 3.80-5.20 [facility] Comment on above: Performed By: #### L [id number] ####Moisture Machine Tender: MIGUEL LEAL ([id number])[facility] ([facility])[address] [place] [address] WBC (Bld) [#/Vol] 6.5 10*3/uL Normal 3.6-10.7 [facility] Comment on above: Performed By: #### L [id number] ####Moisture Machine Tender: MIGUEL LEAL ([id number])[facility])[address] [place] [address] Erythrocyte distribution width (RBC) [Ratio] 13.3 % Normal 11.5-15.0 [facility] Comment on above: Performed By: #### L [id number] ####Moisture Machine Tender: MIGUEL LEAL ([id number])[facility])[address] [place] [address] Hematocrit (Bld) [Volume fraction] 34.6 % Low 35.0-47.0 [facility] Comment on above: Performed By: #### L [id number] ####Moisture Machine Tender: MIGUEL LEAL ([id number])[facility])[address] [place] [address] Hemoglobin (Bld) [Mass/Vol] 11.5 g/dL Low 11.7-16.0 [facility] Comment on above: Performed By: #### L [id number] ####Moisture Machine Tender: MIGUEL LEAL ([id number])[facility])[address] [place] [address] MCH (RBC) [Entitic mass] 31.3 pg Normal 26.0-34.0 [facility] Comment on above: Performed By: #### L [id number] ####Moisture Machine Tender: MIGUEL LEAL ([id number])[facility])[address] [place] [address] MCHC 33.2 % Normal 30.5-36.0 [facility] Comment on above: Performed By: #### L [id number] ####Moisture Machine Tender: MIGUEL LEAL ([id number])[facility])[address] [place] [address] MCV (RBC) [Entitic vol] 94.3 fL Normal 77.0-99.0 [facility] Comment on above: Performed By: #### L [id number] ####Moisture Machine Tender: MIGUEL LEAL ([id number])[facility])[address] [place] [address] Platelet mean volume (Bld) [Entitic vol] 11.1 fL Normal 9.0-12.7 [facility] Comment on above: Performed By: #### L [id number] ####Moisture Machine Tender: MIGUEL LEAL ([id number])[facility])[address] [place] [address] Platelets (Bld) [#/Vol] 190 10*3/uL Normal 140-440 [facility] Comment on above: Performed By: #### L [id number] ####Moisture Machine Tender: MIGUEL LEAL ([id number])[facility])[address] [place] [address] RBC (Bld) [#/Vol] 3.67 10*6/uL Low 3.80-5.20 [facility] Comment on above: Performed By: #### L [id number] ####Moisture Machine Tender: MIGUEL LEAL ([id number])[facility] ([facility])[address] [place] [address] WBC (Bld) [#/Vol] 5.9 10*3/uL Normal 3.6-10.7 [facility] Comment on above: Performed By: #### L [id number] ####Moisture Machine Tender: MIGUEL LEAL ([id number])[facility])[address] [place] [address] CBC panel Auto (Bld)on 06-18 Erythrocyte distribution width (RBC) [Ratio] 13.6 % 11.5 - 15.0 % [facility] Hematocrit (Bld) [Volume fraction] 22.5 % Low 35.0 - 47.0 % [facility] Hemoglobin (Bld) [Mass/Vol] 7.3 g/dL Low 11.7 - 16.0 g/dL [facility] Interpretation and review of laboratory results Abnormal [facility] IPF 6 [facility] MCH (RBC) [Entitic mass] 31.5 pg 26.0 - 34.0 pg [facility] MCHC (RBC) [Mass/Vol] 32.4 % 30.5 - 36.0 % [facility] MCV (RBC) [Entitic vol] 97 fL 77.0 - 99.0 fL [facility] Platelet mean volume (Bld) [Entitic vol] 10.9 fL 9.0 - 12.7 fL [facility] Platelets (Bld) [#/Vol] 99 10*3/uL Low 140 - 440 10*3/uL [facility] RBC (Bld) [#/Vol] 2.32 10*6/uL Low 3.80 - 5.2 0 10*6/uL [facility] WBC (Bld) [#/Vol] 6.5 10*3/uL 3.6 - 10.7 10*3/uL [facility] Erythrocyte distribution width (RBC) [Ratio] 13.3 % 11.5 - 15.0 % [facility] Hematocrit (Bld) [Volume fraction] 34.6 % Low 35.0 - 47.0 % [facility] Hemoglobin (Bld) [Mass/Vol] 11.5 g/dL Low 11.7 - 16.0 g/dL [facility] Interpretation and review of laboratory results Abnormal [facility] MCH (RBC) [Entitic mass] 31.3 pg 26.0 - 34.0 pg [facility] MCHC (RBC) [Mass/Vol] 33.2 % 30.5 - 36.0 % [facility] MCV (RBC) [Entitic vol] 94.3 fL 77.0 - 99.0 fL [facility] Platelet mean volume (Bld) [Entitic vol] 11.1 fL 9.0 - 12.7 fL [facility] Platelets (Bld) [#/Vol] 190 10*3/uL 140 - 440 10*3/uL [facility] RBC (Bld) [#/Vol] 3.67 10*6/uL Low 3.80 - 5.2 0 10*6/uL [facility] WBC (Bld) [#/Vol] 5.9 10*3/uL 3.6 - 10.7 10*3/uL [facility] COMPREHENSIVE METABOLIC PANE [place] 06-18-2025 Albumin [Mass/Vol] 3.3 g/dL Low 3.4-4.8 [facility] Comment on above: Performed By: #### L [id number], LAB17 ####Moisture Machine Tender: MIGUEL LEAL ([id number])[facility] ([address] ALP [Catalytic activity/Vol] 52 U/L Normal 40-150 [facility] Comment on above: Performed By: #### L [id number], LAB17 ####Moisture Machine Tender: MIGUEL LEAL ([id number])[facility] ([facility])[address] [place] [address] ALT [Catalytic activity/Vol] 7 U/L Normal <30 [facility] Comment on above: Performed By: #### L [id number], LAB17 ####Moisture Machine Tender: MIGUEL LEAL ([id number])[facility] ([facility])[address] [place] [address] Anion gap [Moles/Vol] 10 mmol/L Normal 3-13 [facility] Comment on above: Performed By: #### L [id number], LAB17 ####Moisture Machine Tender: MIGUEL LEAL ([id number])[facility] ([facility])[address] [place] [address] AST [Catalytic activity/Vol] 31 U/L Normal <34 [facility] Comment on above: Performed By: #### L AB103, LAB17 ####Moisture Machine Tender: MIGUEL LEAL ([id number])[facility] ([facility])[address] [place] [address] Bilirubin [Mass/Vol] 0.3 mg/dL Normal <1.2 [facility] Comment on above: Performed By: #### L AB103, LAB17 ####Moisture Machine Tender: MIGUEL LEAL ([id number])[facility] ([facility])[address] [place] [address] Calcium [Mass/Vol] 8.9 mg/dL Normal 8.8-10.0 [facility] Comment on above: Performed By: #### L AB103, LAB17 ####Moisture Machine Tender: MIGUEL LEAL ([id number])[facility] ([facility])[address] [place] [address] [place] Chloride [Moles/Vol] 102 mmol/L Normal 98-107 [facility] Comment on above: Performed By: #### L [id number], LAB17 ####Moisture Machine Tender: MIGUEL LEAL ([id number])[facility] ([facility])[address] [place] [address] CO2 [Moles/Vol] 21 mmol/L Low 23-31 [facility] Comment on above: Performed By: #### L AB103, LAB17 ####Moisture Machine Tender: MIGUEL LEAL ([id number])[facility] ([facility])[address] [place] [address] Creatinine [Mass/Vol] 0.71 mg/dL Normal 0.57-1.11 [facility] Comment on above: Performed By: #### L AB103, LAB17 ####Moisture Machine Tender: MIGUEL LEAL ([id number])[facility])[address] [place] [address] GLOMERULAR FILTRATION RATE ML/MIN/1.73 SQ M.PREDICTED 89.4 mL/min/1.73m*2 Normal >60.0 [facility] Comment on above: Result Comment: Calc ulation based on the Chronic Kidney Disease Epidemiology Collaboration (CKD-EPI) equation refit without adjustment for race Performed By: #### L AB103, LAB17 ####Moisture Machine Tender: MIGUEL LEAL ([id number])[facility] ([facility])[address] [place] [address] Glucose [Mass/Vol] 100 mg/dL Normal 82-115 [facility] Comment on above: Performed By: #### L 103, LAB17 ####Moisture Machine Tender: MIGUEL LEAL ([id number])[facility])[address] [place] [address] [place] Potassium [Moles/Vol] 4.6 mmol/L Normal 3.5-5.1 [facility] Comment on above: Result Comment: [facility] potassium values may be up to 0.5 mmol/L lower than serum values. Performed By: #### L AB103, LAB17 ####Moisture Machine Tender: MIGUEL LEAL ([id number])[facility])[address] [place] [address] Protein [Mass/Vol] 6.0 g/dL Low 6.4-8.3 [facility] Comment on above: Performed By: #### L AB103, LAB17 ####Moisture Machine Tender: MIGUEL LEAL ([id number])[facility])[address] [place] [address] Sodium [Moles/Vol] 133 mmol/L Low 136-145 [facility] Comment on above: Performed By: #### L AB103, LAB17 ####Moisture Machine Tender: MIGUEL LEAL ([id number])[facility])[address] [place] [address] Urea nitrogen [Mass/Vol] 18 mg/dL Normal 9-23 [facility] Comment on above: Performed By: #### L AB103, LAB17 ####Moisture Machine Tender: MIGUEL LEAL ([id number])[facility])[address] [place] [address] Calcium.ionized [Moles/Vol]O rdered By: Maria Guadalupe Aranda on 06-18-2025 Calcium.ionized (Bld) [Moles/Vol] 6 mg/dL High 4.30 - 5.20 mg/dL [facility] Interpretation and review of laboratory results Abnormal [facility] PH, IONIZED CALCIUM 7.41 7.31 - 7.46 [facility] Calcium.ionized [Moles/Vol]o n 06-18-2025 Calcium.ionized (Bld) [Moles/Vol] 4.6 mg/dL 4.30 - 5.20 mg/dL [facility] Interpretation and review of laboratory results Normal [facility] PH, IONIZED CALCIUM 7.42 7.31 - 7.46 [facility] Central Venous Lineon 2024 Naresh Motta [...] Staffing Performed: anesthesiologist Anesthesiologist: Naresh Lim MD [facility] Comprehensive metabolic 1998 panelon 06-18-2025 Albumin [Mass/Vol] 3.3 g/dL Low 3.4 - 4.8 g/dL [facility] ALP [Catalytic activity/Vol] 52 U/L 40 - 150 U/L [facility] ALT [Catalytic activity/Vol] 7 U/L [facility] - 30 U/L [facility] Anion gap [Moles/Vol] 10 mmol/L 3 - 13 mmol/L [facility] AST [Catalytic activity/Vol] 31 U/[facility]/L [facility] Bilirubin [Mass/Vol] 0.3 mg/dL [facility] - 1.[facility] mg/dL [facility] Calcium [Mass/Vol] 8.9 mg/dL 8.8 - 10. 0 mg/dL [facility] Chloride [Moles/Vol] 102 mmol/L 98 - 10 7 mmol/L [facility] CO2 [Moles/Vol] 21 mmol/L Low 23 - 31 mmol/L [facility] Creatinine [Mass/Vol] 0.71 mg/dL 0.57 - 1.11 mg/dL [facility] GFR/1.73 sq M.predicted (S/P/Bld) [Vol rate/Area] 89.4 mL/min - PINF [facility] Glucose [Mass/Vol] 100 mg/dL 82 - 115 mg/dL [facility] Interpretation and review of laboratory results Abnormal [facility] Potassium [Moles/Vol] 4.6 mmol/L 3.5 - 5.1 mmol/L [facility] Protein [Mass/Vol] 6 g/dL Low 6.4 - 8.3 g/dL [facility] Sodium [Moles/Vol] 133 mmol/L Low 136 - 145 mmol/L [facility] Urea nitrogen [Mass/Vol] 18 mg/dL 9 - 23 mg/dL [facility] Consulton 06-18-2025 Consult Normal [facility] ECG 12-LEADon 06-18-2025 ECG 12-LEAD Normal [facility] ECG 12-LEAD Normal [facility] ECG 12-LEAD Normal [facility] FIBRINOGENon 06-18-2025 FIBRINOGEN 169 mg/dL Low 200-400 [facility] Comment on above: Performed By: #### L [id number] ####Moisture Machine Tender: MIGUEL LEAL ([id number])[facility])[address] [place] [address] Fibrinogen Coag (PPP) [Mass/ Vol]Ordered By: Kylie Hui on 06-18-2025 Interpretation and review of laboratory results Abnormal [facility] HEMOGLOBIN AND HEMATOCRIT, B LOODon 06-18-2025 Hematocrit (Bld) [Volume fraction] 26.5 % Low 35.0-47.0 [facility] Comment on above: Order Comment: Recom mend 1 hour post transfusion Performed By: #### L [id number] ####Moisture Machine Tender: MIGUEL LEAL ([id number])[facility] ([facility])[address] [place] [address] Hemoglobin (Bld) [Mass/Vol] 8.8 g/dL Low 11.7-16.0 [facility] Comment on above: Order Comment: Recom mend 1 hour post transfusion Performed By: #### L [id number] ####Moisture Machine Tender: MIGUEL LEAL ([id number])[facility] ([facility] [place] [address] HIGH SENSITIVITY TROPONIN, S ERIAL BASELINEon 06-18-2025 TROPONIN HS SERIAL BASELINE 153 ng/L High <=14 [facility] Comment on above: Result Comment: In i ndividuals presenting with symptoms > 2h, a baseline troponin <= 5 ng/L suggests acutecardiac injury is unlikely and further serial testing is generally not indicated. Performed By: #### L [id number] ####Moisture Machine Tender: MIGUEL LEAL ([id number])[facility] ([facility])[address] [place] [address] HIGH SENSITIVITY TROPONIN, S ERIAL, SECOND TESTon 06-18-2025 2H TROPONIN HS (SERIAL 2ND TROPONIN) 176 ng/L High <=14 [facility] Comment on above: Result Comment: Risi ng or falling troponin delta greater than 15 ng/L as compared to baseline value issignificant for acute cardiac injury. Performed By: #### L [id number] ####Moisture Machine Tender: MIGUEL LEAL ([id number])[facility] ([employer])[address] [place] [address] Hemoglobin (Bld) [Mass/Vol]o n 06-18-2025 Hematocrit (Bld) [Volume fraction] 26.5 % Low 35.0 - 47.0 % [facility] Interpretation and review of laboratory results Abnormal [facility] - Chemistry and C hemistry - challengeon 06-18-2025 Glucose [Mass/Vol] 115 mg/dL High 70 - 100 mg/dL [facility] Glucose [Mass/Vol] 116 mg/dL High 70 - 100 mg/dL [facility] Glucose [Mass/Vol] 123 mg/dL High 70 - 100 mg/dL [facility] Glucose [Mass/Vol] 149 mg/dL High 70 - 100 mg/dL [facility] Base excess Calc (Bld) [Moles/Vol] -3.1000 mmol/L Low -3.0 - 3.0 mmol/L [facility] CO2 (Bld) [Partial pressure] 48.6 mm[Hg] High - PINF [facility] cisimple CO2 [Moles/Vol] 24.9 mmol/L 23.0 - 27.0 mmol/L [facility] HCO3 (Bld) [Moles/Vol] 23.4 mmol/L 21.0 - 25.0 mmol/L [facility] Oxygen (Bld) [Partial pressure] 159.7 mm[Hg] High [facility] pH (Bld) 7.3 [pH] Low 7.350 - 7.450 [facility] Glucose [Mass/Vol] 160 mg/dL High 70 - 100 mg/dL [facility] Glucose [Mass/Vol] 158 mg/dL High 70 - 100 mg/dL [facility] Glucose [Mass/Vol] 110 mg/dL High 70 - 100 mg/dL [facility] Magnesium [Mass/Vol] 5.2 mg/dL High 1.6 - 2 .6 mg/dL [facility] Magnesium [Mass/Vol] 2.1 mg/dL 1.6 - 2 .6 mg/dL [facility] Laboratory - Chemistry and C hemistry - challengeOrdered By: Acacia Schmitt on 06-18-2025 Base excess Calc (Bld) [Moles/Vol] -1.5000 mmol/L -3.0 - 3.0 mmol/L [facility] CO2 (Bld) [Partial pressure] 38.9 mm[Hg] - PINF [facility] CO2 [Moles/Vol] 24.4 mmol/L 23.0 - 27.0 mmol/L [facility] HCO3 (Bld) [Moles/Vol] 23.2 mmol/L 21.0 - 25.0 mmol/L [facility] Oxygen (Bld) [Partial pressure] 359.3 mm[Hg] High [facility] pH (Bld) 7.394 [pH] 7.350 - 7.450 [facility] Laboratory - CoagulationOrde red By: Kylie Hui on 06-18-2025 Fibrinogen Coag (PPP) [Mass/Vol] 169 mg/dL Low 200 - 400 mg/dL [facility] Laboratory - Coagulationon 0 06-18-2025 aPTT Coag (PPP) [Time] 30.7 s High 20.0 - 30.5 s [facility] INR Coag (PPP) [Relative time] 1.4 {INR} High 0.9 - 1.1 [facility] PT Coag (Bld) [Time] 14.5 s High 9.0 - 1 2.0 s [facility] Laboratory - Hematology and Cell countson 06-18-2025 Hemoglobin (Bld) [Mass/Vol] 8.8 g/dL Low 11.7 - 16.0 g/dL [facility] Hemoglobin (Bld) [Mass/Vol] 9.2 g/dL 7.0 g/dl [facility] Laboratory - Hematology and Cell countsOrdered By: Acacia Schmitt on 06-18-2025 Hemoglobin (Bld) [Mass/Vol] 8.2 g/dL 7.0 g/dl [facility] MAGNESIUMon 06-18-2025 Magnesium [Mass/Vol] 5.2 mg/dL High 1.6-2.6 [facility] Comment on above: Result Comment: ORDE R COMMENTS:Higher values can be expected in females during menses. Performed By: #### L [id number], [id number], LAB15 ####Moisture Machine Tender: MIGUEL LEAL ([id number])[facility])[address] [place] [address] Magnesium [Mass/Vol] 2.1 mg/dL Normal 1.6-2.6 [facility] Comment on above: Result Comment: ROCIO R COMMENTS:Higher values can be expected in females during menses. Performed By: #### L AB103, LAB17 ####Moisture Machine Tender: MIGUEL LEAL ([id number])[facility])[address] [place] [address] Magnesium [Mass/Vol]on 06-18 [facility] Interpretation and review of laboratory results Normal [facility] No Panel Informationon 06-18 Interpretation and review of laboratory results Abnormal [facility] Interpretation and review of laboratory results Abnormal [facility] Interpretation and review of laboratory results Abnormal [facility] Interpretation and review of laboratory results Abnormal [facility] Of Oxygen 40[facility] Interpretation and review of laboratory results Abnormal [facility] Source Of Oxygen Ventilator [facility] Gabe alth [facility] Interpretation and review of laboratory results Abnormal [facility] Interpretation and review of laboratory results Abnormal [facility] Blood Expiration Date [id number] [facility] Crossmatch interpretation COMP [facility] Dispense Status Transfused [facility] lt Product Blood Type 6200 [facility] PRODUCT CODE [id number] [facility] ABO A [facility] Unit Number [id number] [facility] alth Unit RH Positive [facility] Unit Volume 300 mL [facility] P [place] 47 degrees [facility] FL Interval 160 ms [facility] QRS [place] 26 degrees [facility] QRSD Interval 93 ms [facility] QT Interval 401 ms [facility] QTC Interval 420 ms [facility] T Wave [place] 57 degrees [facility] CV EPIPHANY [facility] Interpretation and review of laboratory results Abnormal [facility] Interpretation and review of laboratory results Abnormal [facility] Interpretation and review of laboratory results Abnormal [facility] P [place] 76 degrees [facility] FL Interval 155 ms [facility] QRS [place] 131 degrees [facility] QRSD Interval 101 ms [facility] QT Interval 363 ms [facility] QTC Interval 469 ms [facility] T Wave [place] 23 degrees [facility] CV EPIPHANY [facility] 2h Troponin HS (Serial 2nd Troponin) 176 ng/L High NINF - 14 ng/L [facility] Interpretation and review of laboratory results Abnormal [facility] Interpretation and review of laboratory results Abnormal [facility] Troponin HS Serial Baseline 153 ng/L High NINF - 14 ng/L [facility] No Panel InformationOrdered By: Acacia Schmitt on 06-18-2025 Amount Of Oxygen [address] [facility] alth Interpretation and review of laboratory results Abnormal [facility] Source Of Oxygen Ventilator [facility] alth [facility] No Panel InformationOrdered By: Leopoldo Anaya on 06-18-2025 P [place] 68 degrees [facility] Work Phone: [place] Interval 187 ms [facility] Work Phone: QRS [place] 63 degrees [facility] Work Phone: QRSD Interval 100 ms [facility] Work Phone: QT Interval 400 ms [facility] Work Phone: QTC Interval 426 ms [facility] Work Phone: T Wave [place] -85 degrees [facility] Work Phone: [facility] Work Phone: Op Noteon 06-18-2025 Op Note Normal [facility] PHOSPHORUSon 06-18-2025 Phosphate [Mass/Vol] 3.3 mg/dL Normal 2.3-4.7 [facility] Comment on above: Performed By: #### L [id number], [id number], LAB15 ####Moisture Machine Tender: MIGUEL LEAL ([id number])[facility])[address] [place] [address] PROTIME AND APTTon aPTT Coag (Bld) [Time] 30.7 s High 20.0-30.5 [facility] Comment on above: Performed By: #### L [id number], [id number] ####Moisture Machine Tender: MIGUEL LEAL ([id number])[address] INR Coag (PPP) [Relative time] 1.4 {INR} High 0.9-1.1 [facility] Comment on above: Result Comment: [place] [...] prevent Myocardial Infarction Performed By: #### L [id number], [id number] ####Moisture Machine Tender: MIGUEL LEAL ([id number])[facility])[address] [place] [address] PT Coag (PPP) [Time] 14.5 s High 9.0-12.0 [facility] Comment on above: Performed By: #### L [id number], [id number] ####Moisture Machine Tender: MIGUEL LEAL ([id number])[facility])[address] [place] [address] Phosphate [Moles/Vol]on 05-22 Interpretation and review of laboratory results Normal [facility] Phosphate [Mass/Vol] 3.3 mg/dL 2.3 - 4 .7 mg/dL [facility] Progress Noteon 06-18-2025 Progress Note Pt extubated and transition to NIV 10/26 via Vent 980 per MD order. No adverse reactions noted and will continue to monitor Normal [facility] Progress Note Normal [facility] Progress Note Normal [facility] Vital signson 06-18-2025 Heart rate 66 /min bpm [facility] Heart rate 100 /min bpm [facility] Vital signsOrdered By: Torrey Anaya on 06-18-2025 Heart rate 68 /min bpm [facility] Work Phone: XR CHEST 1 VIEWon 06-18-2025 XR CHEST 1 VIEW Normal [facility] XR CHEST 1 VIEW Normal [facility] XR CHEST 1 VIEW Normal [facility] XR Chest Single viewon 06-18 [facility] RADIOLOGY [facility] Radiology Study observation (narrative) [facility] RADIOLOGY [facility] RADI[facility]Y [facility] Radiology Study observation (narrative) [facility] RADIOLOGY [facility] RADIOLOGY [facility] Radiology Study observation (narrative) [facility] alth XR Chest Single viewOrdered By: Allison Hope on 06-18-2025 [facility] Work Phone: XR Chest Single viewOrdered By: Brandon Roldan on 06-18-2025 [facility] Work Phone: aPTT Coag (Bld) [Time]on aPTT Coag (PPP) [Time] 61.2 s High 20.0 - 30.5 s [facility] Interpretation and review of laboratory results Abnormal [facility] aPTT Coag (PPP) [Time] 49.3 s High 20.0 - 30.5 s [facility] Interpretation and review of laboratory results Abnormal [facility] [id number] 06-17-2025 [id number] Normal [facility] [id number] Normal [facility] APTTon 06-17-2025 aPTT Coag (Bld) [Time] 52.5 s High 20.0-30.5 [facility] Comment on above: Result Comment: ROCIO Bhandari COMMENTS:NOTE: The therapeutic time for Heparin anticoagulation, based on Xa activity inhibition, is an APTT of 46-80 seconds. Performed By: #### L [id number] ####Moisture Machine Tender: MIGUEL LEAL ([id number])[facility])[address] [place] [address] CALCIUM, IONIZEDon CALCIUM IONIZED 4.30 mg/dL Normal 4.30-5.20 [facility] Comment on above: Performed By: #### L AB54 ####Moisture Machine Tender: MIGUEL LEAL ([id number])[facility] ([facility])[address] [place] [address] PH, IONIZED CALCIUM 7.37 Normal 7.31-7.46 [facility] Comment on above: Performed By: #### L AB54 ####Moisture Machine Tender: MIGUEL LEAL ([id number])[facility])[address] [place] [address] CBC (HEMOGRAM)on 06-17-2025 Erythrocyte distribution width (RBC) [Ratio] 13.3 % Normal 11.5-15.0 [facility] Comment on above: Performed By: #### L [id number] ####Moisture Machine Tender: MIGUEL LEAL ([id number])[facility] ([facility])[address] [place] [address] Hematocrit (Bld) [Volume fraction] 33.3 % Low 35.0-47.0 [facility] Comment on above: Performed By: #### L [id number] ####Moisture Machine Tender: MIGUEL LEAL ([id number])[facility])[address] [place] [address] Hemoglobin (Bld) [Mass/Vol] 11.0 g/dL Low 11.7-16.0 [facility] Comment on above: Performed By: #### L AB294 ####Moisture Machine Tender: MIGUEL LEAL ([id number])[facility] ([facility])[address] [place] [address] MCH (RBC) [Entitic mass] 31.3 pg Normal 26.0-34.0 [facility] Comment on above: Performed By: #### L AB294 ####Moisture Machine Tender: MIGUEL LEAL ([id number])[facility] ([facility])[address] [place] [address] MCHC 33.0 % Normal 30.5-36.0 [facility] Comment on above: Performed By: #### L AB294 ####Moisture Machine Tender: MIGUEL LEAL ([id number])[facility])[address] [place] [address] MCV (RBC) [Entitic vol] 94.6 fL Normal 77.0-99.0 [facility] Comment on above: Performed By: #### L AB294 ####Moisture Machine Tender: MIGUEL LEAL ([id number])[facility] ([facility])[address] [place] [address] Platelet mean volume (Bld) [Entitic vol] 10.6 fL Normal 9.0-12.7 [facility] Comment on above: Performed By: #### L AB294 ####Moisture Machine Tender: MIGUEL LEAL ([id number])[facility])[address] [place] [address] Platelets (Bld) [#/Vol] 183 10*3/uL Normal 140-440 [facility] Comment on above: Performed By: #### L AB294 ####Moisture Machine Tender: MIGUEL LEAL ([id number])[facility] ([facility])[address] [place] [address] RBC (Bld) [#/Vol] 3.52 10*6/uL Low 3.80-5.20 [facility] Comment on above: Performed By: #### L [id number] ####Moisture Machine Tender: MIGUEL LEAL ([id number])[facility] ([facility])[address] [place] [address] WBC (Bld) [#/Vol] 5.9 10*3/uL Normal 3.6-10.7 [facility] Comment on above: Performed By: #### L [id number] ####Moisture Machine Tender: MIGUEL LEAL ([id number])[facility] ([facility])[address] [place] [address] CBC panel Auto (Bld)on 06-17 Erythrocyte distribution width (RBC) [Ratio] 13.3 % 11.5 - 15.0 % [facility] Hematocrit (Bld) [Volume fraction] 33.3 % Low 35.0 - 47.0 % [facility] Hemoglobin (Bld) [Mass/Vol] 11 g/dL Low 11.7 - 16.0 g/dL [facility] Interpretation and review of laboratory results Abnormal [facility] MCH (RBC) [Entitic mass] 31.3 pg 26.0 - 34.0 pg [facility] MCHC (RBC) [Mass/Vol] 33 % 30.5 - 36.0 % [facility] MCV (RBC) [Entitic vol] 94.6 fL 77.0 - 99.0 fL [facility] Platelet mean volume (Bld) [Entitic vol] 10.6 fL 9.0 - 12.7 fL [facility] Platelets (Bld) [#/Vol] 183 10*3/uL 140 - 440 10*3/uL [facility] RBC (Bld) [#/Vol] 3.52 10*6/uL Low 3.80 - 5.2 0 10*6/uL [facility] WBC (Bld) [#/Vol] 5.9 10*3/uL 3.6 - 10.7 10*3/uL [facility] COMPREHENSIVE METABOLIC PANE [place] 06-17-2025 Albumin [Mass/Vol] 3.1 g/dL Low 3.4-4.8 [facility] Comment on above: Performed By: #### L [id number], LAB17 ####Moisture Machine Tender: MIGUEL LEAL ([id number])[facility] ([facility])[address] [place] [address] ALP [Catalytic activity/Vol] 44 U/L Normal 40-150 [facility] Comment on above: Performed By: #### L AB103, LAB17 ####Moisture Machine Tender: MIGUEL LEAL ([id number])[facility])[address] [place] [address] ALT [Catalytic activity/Vol] U/L Normal <30 [facility] Comment on above: Performed By: #### L AB103, LAB17 ####Moisture Machine Tender: MIGUEL LEAL ([id number])[facility] ([facility])[address] [place] [address] Anion gap [Moles/Vol] 7 mmol/L Normal 3-13 [facility] Comment on above: Performed By: #### L AB103, LAB17 ####Moisture Machine Tender: MIGUEL LEAL ([id number])[facility])[address] [place] [address] AST [Catalytic activity/Vol] 28 U/L Normal <34 [facility] Comment on above: Performed By: #### L AB103, LAB17 ####Moisture Machine Tender: MIGUEL LEAL ([id number])[facility] ([facility])[address] [place] [address] Bilirubin [Mass/Vol] 0.3 mg/dL Normal <1.2 [facility] Comment on above: Performed By: #### L AB103, LAB17 ####Moisture Machine Tender: MIGUEL LEAL ([id number])[facility])[address] [place] [address] Calcium [Mass/Vol] 8.0 mg/dL Low 8.8-10.0 [facility] Comment on above: Performed By: #### L AB103, LAB17 ####Moisture Machine Tender: MIGUEL LEAL ([id number])[facility])[address] [place] [address] Chloride [Moles/Vol] 103 mmol/L Normal 98-107 [facility] Comment on above: Performed By: #### L AB103, LAB17 ####Moisture Machine Tender: MIGUEL LEAL ([id number])[facility])[address] [place] [address] [place] CO2 [Moles/Vol] 25 mmol/L Normal 23-31 [facility] Comment on above: Performed By: #### L AB103, LAB17 ####Moisture Machine Tender: MIGUEL LEAL ([id number])[facility] [place] [address] Creatinine [Mass/Vol] 0.72 mg/dL Normal 0.57-1.11 [facility] Comment on above: Performed By: #### L AB103, LAB17 ####Moisture Machine Tender: MIUGEL LEAL ([id number])[facility])[address] [place] [address] GLOMERULAR FILTRATION RATE ML/MIN/1.73 SQ M.PREDICTED 87.9 mL/min/1.73m*2 Normal >60.0 [facility] Comment on above: Result Comment: Calc ulation based on the Chronic Kidney Disease Epidemiology Collaboration (CKD-EPI) equation refit without adjustment for race Performed By: #### L AB103, LAB17 ####Moisture Machine Tender: MIGUEL LEAL ([id number])[facility] ([facility])[address] [place] [address] Glucose [Mass/Vol] 93 mg/dL Normal 82-115 [facility] Comment on above: Performed By: #### L AB103, LAB17 ####Moisture Machine Tender: MIGUEL LEAL ([id number])[facility])[address] [place] [address] [place] Potassium [Moles/Vol] 4.1 mmol/L Normal 3.5-5.1 [facility] Comment on above: Result Comment: [facility] potassium values may be up to 0.5 mmol/L lower than serum values. Performed By: #### L AB103, LAB17 ####Moisture Machine Tender: MIGUEL LEAL ([id number])[facility])[address] [place] [address] Protein [Mass/Vol] 5.7 g/dL Low 6.4-8.3 [facility] Comment on above: Performed By: #### L AB103, LAB17 ####Moisture Machine Tender: MIGUEL LEAL ([id number])[facility] [place] [address] Sodium [Moles/Vol] 135 mmol/L Low 136-145 [facility] Comment on above: Performed By: #### L AB103, LAB17 ####Moisture Machine Tender: MIGUEL LEAL ([id number])[facility] [place] [address] Urea nitrogen [Mass/Vol] 10 mg/dL Normal 9-23 [facility] Comment on above: Performed By: #### L AB103, LAB17 ####Moisture Machine Tender: MIGUEL LEAL ([id number])[facility] [place] [address] CT CHEST WO IV CONTRASTon CT CHEST WO IV CONTRAST Normal [facility] CT Chest WO contraston 06-17 [facility] CT Chest WO contrastOrdered By: Foster Rushing on 06-17-2025 [facility] Work Phone: Calcium.ionized [Moles/Vol]o n 06-17-2025 Calcium.ionized (Bld) [Moles/Vol] 4.3 mg/dL 4.30 - 5.20 mg/dL [facility] Interpretation and review of laboratory results Normal [facility] PH, IONIZED CALCIUM 7.37 7.31 - 7.46 [facility] Comprehensive metabolic 1998 panelon 06-17-2025 Albumin [Mass/Vol] 3.1 g/dL Low 3.4 - 4.8 g/dL [facility] ALP [Catalytic activity/Vol] 44 U/L 40 - 150 U/L [facility] ALT [Catalytic activity/Vol] U/L NINF - 30 U/L [facility] Anion gap [Moles/Vol] 7 mmol/L 3 - 13 mmol/L [facility] AST [Catalytic activity/Vol] 28 U/L NINF - 34 U/L [facility] Bilirubin [Mass/Vol] 0.3 mg/dL NINF - 1.2 mg/dL [facility] Calcium [Mass/Vol] 8 mg/dL Low 8.8 - 10. 0 mg/dL [facility] Chloride [Moles/Vol] 103 mmol/L 98 - 10 7 mmol/L [facility] CO2 [Moles/Vol] 25 mmol/L 23 - 31 mmol/L [facility] Creatinine [Mass/Vol] 0.72 mg/dL 0.57 - 1.11 mg/dL [facility] GFR/1.73 sq M.predicted (S/P/Bld) [Vol rate/Area] 87.9 mL/min - PINF [facility] Glucose [Mass/Vol] 93 mg/dL 82 - 115 mg/dL [facility] Interpretation and review of laboratory results Abnormal [facility] Potassium [Moles/Vol] 4.1 mmol/L 3.5 - 5.1 mmol/L [facility] Protein [Mass/Vol] 5.7 g/dL Low 6.4 - 8.3 g/dL [facility] Sodium [Moles/Vol] 135 mmol/L Low 136 - 145 mmol/L [facility] Urea nitrogen [Mass/Vol] 10 mg/dL 9 - 23 mg/dL [facility] Consulton 06-17-2025 Consult Normal [facility] ECG 12-LEADon 06-17-2025 ECG 12-LEAD IMPRESSION: SINUS RHYTHM Low voltage Nonspecific ST-T changes Electronically Signed On 06-17-2025 16:42:04 EDT by Ladarius Peng [facility] - Chemistry and C hemistry - challengeon 06-17-2025 Magnesium [Mass/Vol] 2.1 mg/dL 1.6 - 2 .6 mg/dL [facility] MAGNESIUMon 06-17-2025 Magnesium [Mass/Vol] 2.1 mg/dL Normal 1.6-2.6 [facility] Comment on above: Result Comment: ORDE R COMMENTS:Higher values can be expected in females during menses. Performed By: #### L AB103, LAB17 ####Moisture Machine Tender: MIGUEL LEAL ([id number])[facility] ([address] MRSA BY PCRon 06-17-2025 MRSA BY PCR Normal [facility] Comment on above: Performed By: #### L [id number] ####Moisture Machine Tender: MIGUEL LEAL ([id number])[facility] ([facility])[address] [place] [address] MRSA DNA VIANEY+probe Ql (Nose) on 06-17-2025 Interpretation and review of laboratory results Normal [facility] cisimple mecA gene Not detected Not Detected [facility] cisimple Staphylococcus aureus Not detected Not Detected [facility] cisimple [facility] Magnesium [Mass/Vol]on 06-17 Interpretation and review of laboratory results Normal [facility] cisimple [facility] No Panel InformationOrdered By: Ladarius Peng on 06-17-2025 P [place] 61 degrees [facility] Work Phone: [place] Interval 167 ms [facility] Work Phone: QRS [place] 49 degrees [facility] Work Phone: QRSD Interval 101 ms [facility] Work Phone: QT Interval 436 ms [facility] Work Phone: QTC Interval 470 ms [facility] Work Phone: T Wave [place] 33 degrees [facility] Work Phone: [facility] Work Phone: No Panel Informationon 06-17 CV EPIPHANY [facility] Left GSV at Knee Diam [...] Health Right SSV Prox Diam 2.1 mm [facility] CV CPACS Progress Noteon 06-17-2025 Progress Note Normal [facility] US Carotid arteries - bilate ralOrdered By: Alyssia Antoine on 06-17-2025 Left CCA dist EDV 15.8 [...] Left subclavian mid EDV 0 cm/s [facility] [facility] Work Phone: Left subclavian mid PSV 94.2 cm/s S [facility] Work Phone: Left vertebral EDV 14.2 cm/[facility] Work Phone: Left vertebral PSV 46.1 [...] Phone: Right CCA prox PSV 58.7 cm/s [facility] Work Phone: Right ECA EDV 7.2 cm/s [facility] Work Phone: Right ECA PSV 55 cm/s [facility] Work Phone: Right ICA dist EDV 23.4 cm/s [facility] Work Phone: Right ICA dist PSV 86.9 cm/s [facility] Work Phone: Right ICA mid EDV 20.7 [...] Right subclavian mid PSV 120.6 cm/s [facility] Work Phone: Right vertebral EDV 14.2 cm/s [facility] Work Phone: Right vertebral PSV 38.4 cm/s [facility] Work Phone: US Carotid arteries - bilate ralon 06-17-2025 CV CPACS Vital signsOrdered By: Lm Peng on 06-17-2025 Heart rate 70 /min bpm [facility] Work Phone: aPTT Coag (Bld) [Time]on aPTT Coag (PPP) [Time] 52.5 s High 20.0 - 30.5 s [facility] Interpretation and review of laboratory results Abnormal [facility] [id number] 06-16-2025 [id number] Normal [facility] APTTon 06-16-2025 aPTT Coag (Bld) [Time] 60.9 s High 20.0-30.5 [facility] Comment on above: Result Comment: ROCIO Bhandari COMMENTS:NOTE: The therapeutic time for Heparin anticoagulation, based on Xa activity inhibition, is an APTT of 46-80 seconds. Performed By: #### L [id number] ####Moisture Machine Tender: MIGUEL LEAL ([id number])[facility] ([facility])[address] [place] [address] CALCIUM, IONIZEDon 5 CALCIUM IONIZED 4.50 mg/dL Normal 4.30-5.20 [facility] Comment on above: Performed By: #### L AB54 ####Moisture Machine Tender: MIGUEL LEAL ([id number])[facility] ([facility])[address] [place] [address] PH, IONIZED CALCIUM 7.43 Normal 7.31-7.46 [facility] Comment on above: Performed By: #### L AB54 ####Moisture Machine Tender: MIGUEL LEAL ([id number])[facility] ([facility])[address] [place] [address] CBC (HEMOGRAM)on 06-16-2025 Erythrocyte distribution width (RBC) [Ratio] 13.4 % Normal 11.5-15.0 [facility] Comment on above: Performed By: #### L AB294 ####Moisture Machine Tender: MIGUEL LEAL ([id number])[facility])[address] [place] [address] Hematocrit (Bld) [Volume fraction] 38.0 % Normal 35.0-47.0 [facility] Comment on above: Performed By: #### L AB294 ####Moisture Machine Tender: MIGUEL LEAL ([id number])[facility])[address] [place] [address] Hemoglobin (Bld) [Mass/Vol] 12.8 g/dL Normal 11.7-16.0 [facility] Comment on above: Performed By: #### L AB294 ####Moisture Machine Tender: MIGUEL LEAL ([id number])[address] MCH (RBC) [Entitic mass] 31.8 pg Normal 26.0-34.0 [facility] Comment on above: Performed By: #### L AB294 ####Moisture Machine Tender: MIGUEL LEAL ([id number])[facility])[address] [place] [address] MCHC 33.7 % Normal 30.5-36.0 [facility] Comment on above: Performed By: #### L AB294 ####Moisture Machine Tender: MIGUEL LEAL ([id number])[facility])[address] [place] [address] MCV (RBC) [Entitic vol] 94.3 fL Normal 77.0-99.0 [facility] Comment on above: Performed By: #### L AB294 ####Moisture Machine Tender: MIGUEL LEAL ([id number])[facility])[address] [place] [address] Platelet mean volume (Bld) [Entitic vol] 10.6 fL Normal 9.0-12.7 [facility] Comment on above: Performed By: #### L AB294 ####Moisture Machine Tender: MIGUEL ELAL ([id number])[facility] ([facility])[address] [place] [address] Platelets (Bld) [#/Vol] 217 10*3/uL Normal 140-440 [facility] Comment on above: Performed By: #### L AB294 ####Moisture Machine Tender: MIGUEL LEAL ([id number])[facility] ([facility])[address] [place] [address] RBC (Bld) [#/Vol] 4.03 10*6/uL Normal 3.80-5.20 [facility] Comment on above: Performed By: #### L AB294 ####Moisture Machine Tender: MIGUEL LEAL ([id number])[facility] ([facility])[address] [place] [address] WBC (Bld) [#/Vol] 8.1 10*3/uL Normal 3.6-10.7 [facility] Comment on above: Performed By: #### L AB294 ####Moisture Machine Tender: MIGUEL LEAL ([id number])[facility] ([facility])[address] [place] [address] CBC panel Auto (Bld)on 06-16 Erythrocyte distribution width (RBC) [Ratio] 13.4 % 11.5 - 15.0 % [facility] Hematocrit (Bld) [Volume fraction] 38 % 35.0 - 47.0 % [facility] Hemoglobin (Bld) [Mass/Vol] 12.8 g/dL 11.7 - 16.0 g/dL [facility] Interpretation and review of laboratory results Normal [facility] MCH (RBC) [Entitic mass] 31.8 pg 26.0 - 34.0 pg [facility] MCHC (RBC) [Mass/Vol] 33.7 % 30.5 - 36.0 % [facility] MCV (RBC) [Entitic vol] 94.3 fL 77.0 - 99.0 fL [facility] Platelet mean volume (Bld) [Entitic vol] 10.6 fL 9.0 - 12.7 fL [facility] Platelets (Bld) [#/Vol] 217 10*3/uL 140 - 440 10*3/uL [facility] RBC (Bld) [#/Vol] 4.03 10*6/uL 3.80 - 5.2 0 10*6/uL [facility] WBC (Bld) [#/Vol] 8.1 10*3/uL 3.6 - 10.7 10*3/uL [facility] CK TOTAL AND CKMBon 06-16-20 25 CK [Catalytic activity/Vol] 105 U/L Normal 30-185 [facility] Comment on above: Performed By: #### L AB63 ####Moisture Machine Tender: MIGUEL LEAL ([id number])[facility])[address] [place] [address] CK.MB [Mass/Vol] 2.5 ng/mL Normal <=3.4 [facility] Comment on above: Result Comment: ROCIO Bhandari COMMENTS:If CK-MB is elevated and the ratio of CK-MB to total CK (relative index) is more than 3, then it is likely that the heart was damaged. A high CK with a relative index below this value suggests that skeletal muscles were damaged. Performed By: #### L AB63 ####Moisture Machine Tender: MIGUEL LEAL ([id number])[address] RELATIVE INDEX 2.4 % Normal <=3.0 [facility] Comment on above: Performed By: #### L AB63 ####Moisture Machine Tender: MIGUEL LEAL ([id number])[facility])[address] [place] [address] CK [Catalytic activity/Vol] 103 U/L Normal 30-185 [facility] Comment on above: Performed By: #### L AB63 ####Moisture Machine Tender: MIGUEL LEAL ([id number])[facility])[address] [place] [address] CK.MB [Mass/Vol] 2.7 ng/mL Normal <=3.4 [facility] Comment on above: Result Comment: ROCIO Bhandari COMMENTS:If CK-MB is elevated and the ratio of CK-MB to total CK (relative index) is more than 3, then it is likely that the heart was damaged. A high CK with a relative index below this value suggests that skeletal muscles were damaged. Performed By: #### L AB63 ####Moisture Machine Tender: MIGUEL LEAL ([id number])[facility] ([facility])[address] [place] [address] RELATIVE INDEX 2.6 % Normal <=3.0 [facility] Comment on above: Performed By: #### L AB63 ####Moisture Machine Tender: MIGUEL LEAL ([id number])[facility])[address] [place] [address] CK [Catalytic activity/Vol] 99 U/L Normal 30-185 [facility] Comment on above: Performed By: #### L TRISTIN, LAB17, [id number] ####Moisture Machine Tender: MIGUEL LEAL ([id number])[facility])[address] [place] [address] CK.MB [Mass/Vol] 2.5 ng/mL Normal <=3.4 [facility] Comment on above: Result Comment: ROCIO Bhandari COMMENTS:If CK-MB is elevated and the ratio of CK-MB to total CK (relative index) is more than 3, then it is likely that the heart was damaged. A high CK with a relative index below this value suggests that skeletal muscles were damaged. Performed By: #### Jv CROW, LAB17, [id number] ####Moisture Machine Tender: MIGUEL LEAL ([id number])[facility] ([facility])[address] [place] [address] RELATIVE INDEX 2.5 % Normal <=3.0 [facility] Comment on above: Performed By: #### Jv CROW, LAB17, [id number] ####Moisture Machine Tender: MIGUEL LEAL ([id number])[facility])[address] [place] [address] CK.total/Creatine kinase.MB [Catalytic ratio]on 06-16-2025 CK [Catalytic activity/Vol] 105 U/L 30 - 185 U/L [facility] CK.MB [Mass/Vol] 2.5 ng/mL NINF - 3.4 ng/mL [facility] Interpretation and review of laboratory results Normal [facility] RELATIVE INDEX 2.4 % NINF - 3.0 % [facility] CK [Catalytic activity/Vol] 103 U/L 30 - 185 U/L [facility] CK.MB [Mass/Vol] 2.7 ng/mL NINF - 3.4 ng/mL [facility] Interpretation and review of laboratory results Normal [facility] RELATIVE INDEX 2.6 % NINF - 3.0 % [facility] CK [Catalytic activity/Vol] 99 U/L 30 - 185 U/L [facility] CK.MB [Mass/Vol] 2.5 ng/mL [facility] ng/mL [facility] Interpretation and review of laboratory results Normal [facility] RELATIVE INDEX 2.5 % [facility] - 3.0 % [facility] COMPREHENSIVE METABOLIC PANE [place] 06-16-2025 Albumin [Mass/Vol] 3.4 g/dL Normal 3.4-4.8 [facility] Comment on above: Performed By: #### Jv CROW, LAB17, [id number] ####Moisture Machine Tender: MIGUEL LEAL ([id number])[address] ALP [Catalytic activity/Vol] 51 U/L Normal 40-150 [facility] Comment on above: Performed By: #### Jv CROW, LAB17, [id number] ####Moisture Machine Tender: MIGUEL LEAL ([id number])[facility])[address] [place] [address] ALT [Catalytic activity/Vol] 6 U/L Normal <30 [facility] Comment on above: Performed By: #### Jv CROW, LAB17, [id number] ####Moisture Machine Tender: MIGUEL LEAL ([id number])[facility])[address] [place] [address] Anion gap [Moles/Vol] 8 mmol/L Normal 3-13 [facility] Comment on above: Performed By: #### Jv AB63, LAB17, [id number] ####Moisture Machine Tender: MIGUEL LEAL ([id number])[facility] [place] [address] AST [Catalytic activity/Vol] 28 U/L Normal <34 [facility] Comment on above: Performed By: #### Jv CROW, LAB17, [id number] ####Moisture Machine Tender: MIGUEL LEAL ([id number])[facility] [place] [address] Bilirubin [Mass/Vol] 0.2 mg/dL Normal <1.2 [facility] Comment on above: Performed By: #### Jv CROW, LAB17, [id number] ####Moisture Machine Tender: MIGUEL LEAL ([id number])[facility] ([facility])[address] [place] [address] Calcium [Mass/Vol] 8.6 mg/dL Low 8.8-10.0 [facility] Comment on above: Performed By: #### Jv CROW, LAB17, [id number] ####Moisture Machine Tender: MIGUEL LEAL ([id number])[facility] [place] [address] [place] Chloride [Moles/Vol] 100 mmol/L Normal 98-107 [facility] Comment on above: Performed By: #### Jv CROW, LAB17, [id number] ####Moisture Machine Tender: MIGUEL LEAL ([id number])[facility] [place] [address] [place] CO2 [Moles/Vol] 24 mmol/L Normal 23-31 [facility] Comment on above: Performed By: #### Jv CROW, LAB17, [id number] ####Moisture Machine Tender: MIGUEL LEAL ([id number])[facility] ([facility])[address] [place] [address] [place] Creatinine [Mass/Vol] 0.68 mg/dL Normal 0.57-1.11 [facility] Comment on above: Performed By: #### Jv CROW, LAB17, [id number] ####Moisture Machine Tender: MIGUEL LEAL ([id number])[facility])[address] [place] [address] [place] GLOMERULAR FILTRATION RATE ML/MIN/1.73 SQ M.PREDICTED >90.0 Normal >60.0 [facility] Comment on above: Result Comment: Calc ulation based on the Chronic Kidney Disease Epidemiology Collaboration (CKD-EPI) equation refit without adjustment for race Performed By: #### Jv CROW, LAB17, [id number] ####Moisture Machine Tender: MIGUEL LEAL ([id number])[facility])[address] [place] [address] Glucose [Mass/Vol] 108 mg/dL Normal 82-115 [facility] Comment on above: Performed By: #### Jv CROW, LAB17, [id number] ####Moisture Machine Tender: MIGUEL LEAL ([id number])[facility])[address] [place] [address] Potassium [Moles/Vol] 4.0 mmol/L Normal 3.5-5.1 [facility] Comment on above: Result Comment: [facility] potassium values may be up to 0.5 mmol/L lower than serum values. Performed By: #### Jv CROW, LAB17, [id number] ####Moisture Machine Tender: MIGUEL LEAL ([id number])[facility])[address] [place] [address] [place] Protein [Mass/Vol] 6.2 g/dL Low 6.4-8.3 [facility] Comment on above: Performed By: #### Jv CROW, LAB17, [id number] ####Moisture Machine Tender: MIGUEL LEAL ([id number])[facility])[address] [place] [address] [place] Sodium [Moles/Vol] 132 mmol/L Low 136-145 [facility] Comment on above: Performed By: #### Jv CROW, LAB17, [id number] ####Moisture Machine Tender: MIGUEL LEAL ([id number])[facility])[address] [place] [address] [place] Urea nitrogen [Mass/Vol] 16 mg/dL Normal 9-23 [facility] Comment on above: Performed By: #### L AB63, LAB17, [id number] ####Moisture Machine Tender: MIGUEL LEAL ([id number])[facility] ([facility])[address] [place] [address] CT Chest WO contraston 06-16 Radiology Study observation (narrative) [facility] Calcium.ionized [Moles/Vol]o n 06-16-2025 Calcium.ionized (Bld) [Moles/Vol] 4.5 mg/dL 4.30 - 5.20 mg/dL [facility] Interpretation and review of laboratory results Normal [facility] PH, IONIZED CALCIUM 7.43 7.31 - 7.46 [facility] Comprehensive metabolic 1998 panelon 06-16-2025 Albumin [Mass/Vol] 3.4 g/dL 3.4 - 4.8 g/dL [facility] ALP [Catalytic activity/Vol] 51 U/L 40 - 150 U/L [facility] ALT [Catalytic activity/Vol] 6 U/L NINF - 30 U/L [facility] Anion gap [Moles/Vol] 8 mmol/L 3 - 13 mmol/L [facility] AST [Catalytic activity/Vol] 28 U/L NINF - 34 U/L [facility] Bilirubin [Mass/Vol] 0.2 mg/dL NINF - 1.2 mg/dL [facility] Calcium [Mass/Vol] 8.6 mg/dL Low 8.8 - 10. 0 mg/dL [facility] Chloride [Moles/Vol] 100 mmol/L 98 - 10 7 mmol/L [facility] CO2 [Moles/Vol] 24 mmol/L 23 - 31 mmol/L [facility] Creatinine [Mass/Vol] 0.68 mg/dL 0.57 - 1.11 mg/dL [facility] GFR/1.73 sq M.predicted (S/P/Bld) [Vol rate/Area] - PINF [facility] Glucose [Mass/Vol] 108 mg/dL 82 - 115 mg/dL [facility] Potassium [Moles/Vol] 4 mmol/L 3.5 - 5.1 mmol/L [facility] Protein [Mass/Vol] 6.2 g/dL Low 6.4 - 8.3 g/dL [facility] Sodium [Moles/Vol] 132 mmol/L Low 136 - 145 mmol/L [facility] Urea nitrogen [Mass/Vol] 16 mg/dL 9 - 23 mg/dL [facility] ECG 12-LEADon 06-16-2025 ECG 12-LEAD IMPRESSION: Sinus rhythm Probable left atrial enlargement Right axis deviation Low voltage, precordial leads Nonspecific T abnrm, anterolateral leads Electronically Signed On 06-16-2025 09:44:30 EDT by Selvin Lynch [facility] ECG 12-LEAD IMPRESSION: Sinus bradycardia Low voltage with right axis deviation Repol abnrm suggests ischemia, anterolateral Electronically Signed On 06-16-2025 09:26:23 EDT by Selvin Lycnh [facility] ECG 12-LEAD IMPRESSION: Sinus rhythm Low voltage, extremity leads Nonspecific st/t changes Electronically Signed On 06-16-2025 09:24:39 EDT by Selvin Lynch [facility] HEMOGLOBIN A1Con 06-16-2025 Glucose [Mass/Vol] 120 mg/dL Normal [facility] Comment on above: Result Comment: ROCIO Bhandari COMMENTS:HbA1c values of 5.7-6.4 percent indicate an increased risk for developing diabetes mellitus. HbA1c values greater than or equal to 6.5 percent are diagnostic of diabetes mellitus. For diagnosis of diabetes in individuals without unequivocal hyperglycemia, results should be confirmed by repeat testing. Performed By: #### L AB90 ####Moisture Machine Tender: MIGUEL LEAL ([id number])[facility] ([facility])[address] [place] [address] HEMOGLOBIN A1C 5.8 %HbA1C High <5.7 [facility] Comment on above: Result Comment: Norm al less than 5.7%Prediabetes 5.7% to 6.4%Diabetes 6.5% or higher--HgbA1C levels may not be accurate in patients who have renal disease, received recent blood transfusions, are anemic, or who have dyshemoglobinemia. Performed By: #### L AB90 ####Moisture Machine Tender: MIGUEL LEAL ([id number])[facility] ([facility])[address] [place] [address] Laboratory - Chemistry and C hemistry - challengeon 06-16-2025 Average glucose Estimated from glycated hemoglobin (Bld) [Mass/Vol] 120 mg/dL [facility] Magnesium [Mass/Vol] 2.7 mg/dL High 1.6 - 2 .6 mg/dL [facility] Laboratory - Hematology and Cell countson 06-16-2025 HbA1c (Bld) [Mass fraction] 5.8 % High NINF [facility] MAGNESIUMon 06-16-2025 Magnesium [Mass/Vol] 2.7 mg/dL High 1.6-2.6 [facility] Comment on above: Result Comment: ROCIO Bhandari COMMENTS:Higher values can be expected in females during menses. Performed By: #### L AB63, LAB17, [id number] ####Moisture Machine Tender: MIGUEL LEAL ([id number])[facility] Magnesium [Mass/Vol]on 06-16 [facility] No Panel InformationOrdered By: Selvin Lynch on 06-16-2025 P [place] 59 degrees [facility] Work Phone: FL Interval 160 ms [facility] Work Phone: QRS [place] 100 degrees [facility] Work Phone: QRSD Interval 89 ms [facility] Work Phone: QT Interval 404 ms [facility] Work Phone: QTC Interval 440 ms [facility] Work Phone: T Wave [place] 0 degrees [facility] Work Phone: [facility] Work Phone: No Panel Informationon 06-16 CV EPIPHANY [facility] P [place] 60 degrees [facility] [place] Interval 173 ms [facility] QRS [place] 73 degrees [facility] QRSD Interval 103 ms [facility] QT Interval 480 ms [facility] QTC Interval 473 ms [facility] T Wave [place] 181 degrees [facility] CV EPIPHANY [facility] P [place] 59 degrees [facility] FL Interval 171 ms [facility] QRS [place] 68 degrees [facility] QRSD Interval 101 ms [facility] QT Interval 467 ms [facility] QTC Interval 473 ms [facility] T Wave [place] 0 degrees [facility] CV EPIPHANY [facility] Interpretation and review of laboratory results Abnormal [facility] Interpretation and review of laboratory results Abnormal [facility] Progress Noteon 06-16-2025 Progress Note Nutrition rescreen completed. Chart reviewed. Patient to be monitored and followed by the diet a/c technician. BEENA Alvarado Normal [facility] Progress Note Normal [facility] US Heart TransthoracicOrdere d By: Darius Patterson on 06-16-2025 Aortic Arch 2.4 cm [facility] Work Phone: [phone] Aortic Sinus Valsalva 3.4 cm [facility] Work Phone: [phone] Aortic Sinus Valsalva Index 2.06 cm/m2 [facility] Work Phone: [phone] Aortic valve Mean systole pressure gradient by US.doppler derived full Bernoulli [address] [facility] Work Phone: [phone] Aortic valve Orifice area by US 2.8 cm2 [facility] Work Phone: [phone] Aortic valve Peak systolic flow by US.doppler 0.9 m/s [facility] Work Phone: Ascending Aorta 2.[address] [facility] Work Phone: [phone] Ascending Aorta Index 1.7 cm/m2 [facility] Work Phone: [phone] AV Area by Peak Velocity 2.2 cm2 [facility] Work Phone: [phone] AV Area by VTI 2.2 cm2 [facility] Work Phone: AV AT 91.34 ms [facility] Work Phone: AV Peak Gradient 6 mmHg [facility] Work Phone: AV Peak Velocity 1.2 m/s [facility] Work Phone: AV Velocity Ratio 0.75 [facility] Work Phone: AV VTI 25.4 cm [facility] Work Phone: CHRISTOPHE/BSA Peak Velocity 1.3 cm2/m2 [facility] Work Phone: CHRISTOPHE/BSA VTI 1.3 cm2/m2 [facility] Work Phone: [phone] E/E' Lateral 9.6 [facility] Work Phone: [phone] E/E' Ratio (Averaged) 9.6 [facility] Work Phone: [phone] E/E' Septal 9.6 [facility] Work Phone: [phone] EF Physician 50 % [facility] Work Phone: [phone] Est. RA Pressure 3 mmHg [facility] Work Phone: [phone] Fractional Shortening 2D 33 % 28 - 44 % [facility] Work Phone: [phone] Global Longitudinal Strain -16.3 % [facility] [employer] Phone: [phone] Global Longitudinal Strain -14.8 % [facility] [employer] Phone: [phone] Global Longitudinal Strain -14 % [facility] [employer] Phone: [phone] Global Longitudinal Strain -15.1 % [facility] [employer] Phone: [phone] IVC Diameter 1.8 cm [facility] Work Phone: [phone] IVSd 0.7 cm 0.6 - 0.9 cm [facility] [employer] Phone: [phone] LA Diameter 2.5 cm [facility] [employer] Phone: LA Size Index 1.52 cm/m2 [facility] [employer] Work Phone: [phone] LA Volume 2C 30 mL 22 - 52 mL [facility] Work Phone: [phone] LA Volume 4C 42 mL 22 - 52 mL [facility] Work Phone: [phone] LA Volume A/L 40 mL [facility] [employer] Work Phone: [phone] LA Volume BP 36 mL 22 - 52 mL [facility] Work Phone: [phone] LA Volume Index 2C 18 mL/m2 16 - 34 mL/m2 [facility] Work Phone: [phone] LA Volume Index 4C 25 mL/m2 16 - 34 mL/m2 [facility] [employer] Phone: [phone] LA Volume Index A/L 24 mL/m2 16 - 34 mL/m2 [facility] Work Phone: LA Volume Index BP 22 ml/m2 16 - 34 ml/m2 [facility] Work Phone: [phone] Left ventricular Ejection fraction by US.2D+Calculated by biplane method of disks 63 % 55 - 100 % [facility] Work Phone: [phone] LV E' Lateral Velocity 5 cm/s [facility] Work Phone: [phone] LV E' Septal Velocity 5 cm/s [facility] Work Phone: [phone] LV EDV A2C 76 mL [facility] Work Phone: [phone] LV EDV A4C 77 mL [facility] Work Phone: [phone] LV EDV BP 77 mL 56 - 104 mL [facility] Work Phone: [phone] LV EDV Index A2C 46 mL/m2 [facility] Work Phone: [phone] LV EDV Index A4C 47 mL/m2 [facility] Work Phone: [phone] LV EDV Index BP 47 mL/m2 [facility] Work Phone: [phone] LV Ejection Fraction A2C 63 % [facility] Work Phone: [phone] LV Ejection Fraction A4C 62 % [facility] Work Phone: LV ESV A2C 28 mL [facility] Work Phone: [phone] LV ESV A4C 29 mL [facility] Work Phone: [phone] LV ESV BP 29 mL 19 - 49 mL [facility] Work Phone: LV ESV Index A2C 17 mL/m2 [facility] Work Phone: LV ESV Index A4C 18 mL/m2 [facility] Work Phone: LV ESV Index BP 18 mL/m2 [facility] Work [phone] LV Mass 2D 93 g 67 - 162 g [facility] Work Phone: [phone] LV Mass 2D Index 56.4 g/m2 43 - 95 g/m2 [facility] Work Phone: [phone] LV RWT Ratio 0.38 [facility] Work Phone: LVIDd 4.2 cm 3.9 - 5.3 cm [facility] Work Phone: [phone] LVIDd Index 2.55 cm/m2 [facility] Work Phone: LVIDs 2.8 cm [facility] Work Phone: [phone] LVIDs Index 1.7 cm/m2 [facility] Work Phone: [phone] LVOT Cardiac Output 3.7 liter/mi nut e [facility] Work Phone: [phone] LVOT Diameter 1.9 cm [facility] Work Phone: [phone] LVOT Mean Gradient 2 mmHg [facility] Work Phone: [phone] LVOT Peak Gradient 3 mmHg [facility] Work Phone: [phone] LVOT Peak Velocity 0.9 m/s [facility] Work Phone: [phone] LVOT Stroke Volume Index 33 mL/m2 [facility] Work Phone: [phone] LVOT SV 54.4 ml [facility] Work Phone: [phone] LVOT VTI 19.2 cm [facility] Work Phone: [phone] LVOT:AV VTI Index 0.76 [facility] Work Phone: [phone] LVPWd 0.8 cm 0.6 - 0.9 cm [facility] Work Phone: [phone] MV A Velocity 0.98 m/s [facility] Work Phone: [phone] MV E Velocity 0.48 m/s [facility] Work Phone: [phone] MV E Wave Deceleration Time 311.6 ms [facility] Work Phone: MV E/A 0.49 [facility] Work Phone: RA Area 4C 19.3 mL [facility] Work Phone: RA Area 4C 17.9 mL [facility] Work Phone: [phone] RV Basal Dimension 3 cm [facility] Work Phone: RV Free Wall Peak S' 10 cm/s [facility] Work Phone: [phone] RV Longitudinal Dimension 5 cm [facility] Work Phone: [phone] RV Mid Dimension 2.3 cm [facility] Work Phone: RVSP 22 mmHg [facility] Work Phone: [phone] Sinotubular Junction 2.3 cm [facility] Work Phone: [phone] TAPSE 2 cm 1.7 cm [facility] Work Phone: [phone] TR Max Velocity 2.19 m/s [facility] Work Phone: [phone] TR Peak Gradient 19 mmHg [facility] Work Phone: [phone] [facility] Work Phone: [phone] US Heart Transthoracicon CV CPACS Vital signsOrdered By: Selvin Lynch on 06-16-2025 Heart rate 71 /min bpm [facility] Work Phone: Vital signson 06-16-2025 Heart rate 58 /min bpm [facility] Heart rate 61 /min bpm [facility] XR ABDOMEN 1 VIEWon 06-16-20 25 XR ABDOMEN 1 VIEW Normal [facility] XR Abdomen Single viewon [facility] Radiology Study observation (narrative) Khris [facility] XR Abdomen Single viewOrdere d By: César Pizarro on 06-16-2025 [facility] Work Phone: aPTT Coag (Bld) [Time]on aPTT Coag (PPP) [Time] 60.9 s High 20.0 - 30.5 s [facility] Interpretation and review of laboratory results Abnormal [facility] APTTon 06-15-2025 aPTT Coag (Bld) [Time] 61.7 s High 20.0-30.5 [facility] Comment on above: Result Comment: ROCIO Bhandari COMMENTS:NOTE: The therapeutic time for Heparin anticoagulation, based on Xa activity inhibition, is an APTT of 46-80 seconds. Performed By: #### L [id number] ####Moisture Machine Tender: MIGUEL LEAL ([id number])[facility] ([facility])[address] [place] [address] aPTT Coag (Bld) [Time] 47.0 s High 20.0-30.5 [facility] Comment on above: Result Comment: ROCIO Bhandari COMMENTS:NOTE: The therapeutic time for Heparin anticoagulation, based on Xa activity inhibition, is an APTT of 46-80 seconds. Performed By: #### L AB325 ####Moisture Machine Tender: MIGUEL LEAL ([id number])[facility] ([facility])[address] [place] [address] aPTT Coag (Bld) [Time] 63.2 s High 20.0-30.5 [facility] Comment on above: Result Comment: ROCIO Bhandari COMMENTS:NOTE: The therapeutic time for Heparin anticoagulation, based on Xa activity inhibition, is an APTT of 46-80 seconds. Performed By: #### L AB325 ####Moisture Machine Tender: MIGUEL LEAL ([id number])[facility] ([facility])[address] [place] [address] aPTT Coag (Bld) [Time] 39.3 s High 20.0-30.5 [facility] Comment on above: Result Comment: ROCIO Bhandari COMMENTS:NOTE: The therapeutic time for Heparin anticoagulation, based on Xa activity inhibition, is an APTT of 46-80 seconds. Performed By: #### L AB325 ####Moisture Machine Tender: MIGUEL ELAL ([id number])[facility] ([facility])[address] [place] [address] CALCIUM, IONIZEDon 5 CALCIUM IONIZED 4.50 mg/dL Normal 4.30-5.20 [facility] Comment on above: Performed By: #### L AB54 ####Moisture Machine Tender: MIGUEL LEAL ([id number])[facility])[address] [place] [address] PH, IONIZED CALCIUM 7.40 Normal 7.31-7.46 [facility] Comment on above: Performed By: #### L AB54 ####Moisture Machine Tender: MIGUEL LEAL ([id number])[facility])[address] [place] [address] CBC (HEMOGRAM)on 06-15-2025 Erythrocyte distribution width (RBC) [Ratio] 13.4 % Normal 11.5-15.0 [facility] Comment on above: Performed By: #### L AB294 ####Moisture Machine Tender: MIGUEL LEAL ([id number])[facility])[address] [place] [address] Hematocrit (Bld) [Volume fraction] 38.8 % Normal 35.0-47.0 [facility] Comment on above: Performed By: #### L AB294 ####Moisture Machine Tender: MIGUEL LEAL ([id number])[address] Hemoglobin (Bld) [Mass/Vol] 12.5 g/dL Normal 11.7-16.0 [facility] Comment on above: Performed By: #### L AB294 ####Moisture Machine Tender: MIGUEL LELA ([id number])[facility])[address] [place] [address] MCH (RBC) [Entitic mass] 30.9 pg Normal 26.0-34.0 [facility] Comment on above: Performed By: #### L AB294 ####Moisture Machine Tender: MIGUEL LEAL ([id number])[address] MCHC 32.2 % Normal 30.5-36.0 [facility] Comment on above: Performed By: #### L [id number] ####Moisture Machine Tender: MIGUEL LEAL ([id number])[address] MCV (RBC) [Entitic vol] 95.8 fL Normal 77.0-99.0 [facility] Comment on above: Performed By: #### L AB294 ####Moisture Machine Tender: MIGUEL LEAL ([id number])[facility] ([facility])[address] [place] [address] Platelet mean volume (Bld) [Entitic vol] 10.5 fL Normal 9.0-12.7 [facility] Comment on above: Performed By: #### L AB294 ####Moisture Machine Tender: MIGUEL LEAL ([id number])[facility])[address] [place] [address] Platelets (Bld) [#/Vol] 211 10*3/uL Normal 140-440 [facility] Comment on above: Performed By: #### L AB294 ####Moisture Machine Tender: MIGUEL LEAL ([id number])[facility])[address] [place] [address] RBC (Bld) [#/Vol] 4.05 10*6/uL Normal 3.80-5.20 [facility] Comment on above: Performed By: #### L AB294 ####Moisture Machine Tender: MIGUEL LEAL ([id number])[facility] ([facility])[address] [place] [address] WBC (Bld) [#/Vol] 5.7 10*3/uL Normal 3.6-10.7 [facility] Comment on above: Performed By: #### L AB294 ####Moisture Machine Tender: MIGUEL LEAL ([id number])[facility])[address] [place] [address] CBC W/Diff, Automatedon 07-2 Absolute Neut Normal 2.0-7.7 [facility] Comment on above: Result Comment: Canc elled via OM: Order cancelled - Patient discharged Performed By: #### L 499.0042 #### [facility] [address] [place] [id number] HCT Normal 37-47 [facility] Comment on above: Result Comment: Canc elled via OM: Order cancelled - Patient discharged Performed By: #### L 499.0042 #### [facility] [address] [place], [address] HGB Normal 12.0-15.0 [facility] Comment on above: Result Comment: Canc elled via OM: Order cancelled - Patient discharged Performed By: #### L 499.0042 #### [facility] [address] [place], [address] MCH Normal 27.0-32.0 [facility] Comment on above: Result Comment: Canc elled via OM: Order cancelled - Patient discharged Performed By: #### L 499.0042 #### [facility] [address] [place], [address] MCHC Normal 32-36 [facility] Comment on above: Result Comment: Canc elled via OM: Order cancelled - Patient discharged Performed By: #### L 499.0042 #### [facility] [address] [place], [address] MCV Normal 81-99 [facility] Comment on above: Result Comment: Canc elled via OM: Order cancelled - Patient discharged Performed By: #### L 499.0042 #### [facility] [address] [place], [address] NEUT% Normal 47-70 [facility] Comment on above: Result Comment: Canc elled via OM: Order cancelled - Patient discharged Performed By: #### L 499.0042 #### [facility] [address] [place], [address] PLT Normal 150-450 [facility] Comment on above: Result Comment: Canc elled via OM: Order cancelled - Patient discharged Performed By: #### L 499.0042 #### [facility] [address] [place], [address] RBC Normal 4.2-5.4 [facility] Comment on above: Result Comment: Canc elled via OM: Order cancelled - Patient discharged Performed By: #### L 499.0042 #### [facility] [address] [place], [address] RDW CV Normal 11.6-14.6 [facility] Comment on above: Result Comment: Canc elled via OM: Order cancelled - Patient discharged Performed By: #### L 499.0042 #### [facility] [address] [place], [address] RDW SD Normal 35.1-43.9 [facility] Comment on above: Result Comment: Canc elled via OM: Order cancelled - Patient discharged Performed By: #### L 499.0042 #### [facility] [address] [place], [address] WBC Normal 4.4-11.0 [facility] Comment on above: Result Comment: Canc elled via OM: Order cancelled - Patient discharged Performed By: #### L 499.0042 #### [facility] [address] [place], [address] CBC panel Auto (Bld)on 06-15 Erythrocyte distribution width (RBC) [Ratio] 13.4 % 11.5 - 15.0 % [facility] Hematocrit (Bld) [Volume fraction] 38.8 % 35.0 - 47.0 % [facility] Hemoglobin (Bld) [Mass/Vol] 12.5 g/dL 11.7 - 16.0 g/dL [facility] Interpretation and review of laboratory results Normal [facility] MCH (RBC) [Entitic mass] 30.9 pg 26.0 - 34.0 pg [facility] MCHC (RBC) [Mass/Vol] 32.2 % 30.5 - 36.0 % [facility] MCV (RBC) [Entitic vol] 95.8 fL 77.0 - 99.0 fL [facility] Platelet mean volume (Bld) [Entitic vol] 10.5 fL 9.0 - 12.7 fL [facility] Platelets (Bld) [#/Vol] 211 10*3/uL 140 - 440 10*3/uL [facility] RBC (Bld) [#/Vol] 4.05 10*6/uL 3.80 - 5.2 0 10*6/uL [facility] WBC (Bld) [#/Vol] 5.7 10*3/uL 3.6 - 10.7 10*3/uL [facility] CK TOTAL AND CKMBon 06-15-20 25 CK [Catalytic activity/Vol] 104 U/L Normal 30-185 [facility] Comment on above: Performed By: #### L AB63 ####Moisture Machine Tender: MIGUEL LEAL ([id number])[facility])[address] [place] [address] CK.MB [Mass/Vol] 2.7 ng/mL Normal <=3.4 [facility] Comment on above: Result Comment: ROCIO R COMMENTS:If CK-MB is elevated and the ratio of CK-MB to total CK (relative index) is more than 3, then it is likely that the heart was damaged. A high CK with a relative index below this value suggests that skeletal muscles were damaged. Performed By: #### L AB63 ####Moisture Machine Tender: MIGUEL LEAL ([id number])[facility] ([facility])[address] [place] [address] RELATIVE INDEX 2.6 % Normal <=3.0 [facility] Comment on above: Performed By: #### L AB63 ####Moisture Machine Tender: MIGUEL LEAL ([id number])[facility])[address] [place] [address] CK [Catalytic activity/Vol] 88 U/L Normal 30-185 [facility] Comment on above: Performed By: #### L AB63 ####Moisture Machine Tender: MIGUEL LEAL ([id number])[facility])[address] [place] [address] CK.MB [Mass/Vol] 2.3 ng/mL Normal <=3.4 [facility] Comment on above: Result Comment: ORDE R COMMENTS:If CK-MB is elevated and the ratio of CK-MB to total CK (relative index) is more than 3, then it is likely that the heart was damaged. A high CK with a relative index below this value suggests that skeletal muscles were damaged. Performed By: #### L AB63 ####Moisture Machine Tender: MIGUEL LEAL ([id number])[facility])[address] [place] [address] RELATIVE INDEX 2.6 % Normal <=3.0 [facility] Comment on above: Performed By: #### L AB63 ####Moisture Machine Tender: MIGUEL LEAL ([id number])[facility] ([facility])[address] [place] [address] CK [Catalytic activity/Vol] 93 U/L Normal 30-185 [facility] Comment on above: Performed By: #### L AB63 ####Moisture Machine Tender: MIGUEL LEAL ([id number])[facility])[address] [place] [address] CK.MB [Mass/Vol] 2.6 ng/mL Normal <=3.4 [facility] Comment on above: Result Comment: ROCIO Bhandari COMMENTS:If CK-MB is elevated and the ratio of CK-MB to total CK (relative index) is more than 3, then it is likely that the heart was damaged. A high CK with a relative index below this value suggests that skeletal muscles were damaged. Performed By: #### L AB63 ####Moisture Machine Tender: MIGUEL LEAL ([id number])[facility] ([facility])[address] [place] [address] RELATIVE INDEX 2.8 % Normal <=3.0 [facility] Comment on above: Performed By: #### L AB63 ####Moisture Machine Tender: MIGUEL LEAL ([id number])[facility] ([facility])[address] [place] [address] [place] CK [Catalytic activity/Vol] 85 U/L Normal 30-185 [facility] Comment on above: Performed By: #### L AB17, LAB18, LAB63, [id number] ####Moisture Machine Tender: MIGUEL LEAL ([id number])[facility] ([facility])[address] [place] [address] [place] CK.MB [Mass/Vol] 2.3 ng/mL Normal <=3.4 [facility] Comment on above: Result Comment: ROCIO Bhandari COMMENTS:If CK-MB is elevated and the ratio of CK-MB to total CK (relative index) is more than 3, then it is likely that the heart was damaged. A high CK with a relative index below this value suggests that skeletal muscles were damaged. Performed By: #### L AB17, LAB18, LAB63, [id number] ####Moisture Machine Tender: MIGUEL LEAL ([id number])[facility] ([facility])[address] [place] [address] RELATIVE INDEX 2.7 % Normal <=3.0 [facility] Comment on above: Performed By: #### L AB17, LAB18, LAB63, [id number] ####Moisture Machine Tender: MIGUEL LEAL ([id number])[facility] [place] [address] CK.total/Creatine kinase.MB [Catalytic ratio]on 06-15-2025 CK [Catalytic activity/Vol] 104 U/L 30 - 185 U/L [facility] CK.MB [Mass/Vol] 2.7 ng/mL [facility] - 3.4 ng/mL [facility] Interpretation and review of laboratory results Normal [facility] RELATIVE INDEX 2.6 % [facility] - 3.0 % [facility] CK [Catalytic activity/Vol] 88 U/L 30 - 185 U/L [facility] CK.MB [Mass/Vol] 2.3 ng/mL [facility] - 3.4 ng/mL [facility] Interpretation and review of laboratory results Normal [facility] RELATIVE INDEX 2.6 % NINF - 3.0 % [facility] CK [Catalytic activity/Vol] 93 U/L 30 - 185 U/L [facility] CK.MB [Mass/Vol] 2.6 ng/mL [facility] - 3.4 ng/mL [facility] Interpretation and review of laboratory results Normal [facility] RELATIVE INDEX 2.8 % NINF - 3.0 % [facility] CK [Catalytic activity/Vol] 85 U/L 30 - 185 U/L [facility] CK.MB [Mass/Vol] 2.3 ng/mL NINF - 3.4 ng/mL [facility] Interpretation and review of laboratory results Normal [facility] RELATIVE INDEX 2.7 % NINF - 3.0 % [facility] COMPREHENSIVE METABOLIC PANE [place] 06-15-2025 Albumin [Mass/Vol] 3.4 g/dL Normal 3.4-4.8 [facility] Comment on above: Performed By: #### L AB17, LAB18, LAB63, [id number] ####Moisture Machine Tender: MIGUEL LEAL ([id number])[facility] ([facility])[address] [place] [address] ALP [Catalytic activity/Vol] 46 U/L Normal 40-150 [facility] Comment on above: Performed By: #### L AB17, LAB18, LAB63, [id number] ####Moisture Machine Tender: MIGUEL LEAL ([id number])[facility] ([facility])[address] [place] [address] ALT [Catalytic activity/Vol] U/L Normal <30 [facility] Comment on above: Performed By: #### L AB17, LAB18, LAB63, [id number] ####Moisture Machine Tender: MIGUEL LEAL ([id number])[facility] ([facility])[address] [place] [address] Anion gap [Moles/Vol] 11 mmol/L Normal 3-13 [facility] Comment on above: Performed By: #### L AB17, LAB18, LAB63, [id number] ####Moisture Machine Tender: MIGUEL LEAL ([id number])[facility])[address] [place] [address] AST [Catalytic activity/Vol] 32 U/L Normal <34 [facility] Comment on above: Performed By: #### L AB17, LAB18, LAB63, [id number] ####Moisture Machine Tender: MIGUEL LEAL ([id number])[facility])[address] [place] [address] Bilirubin [Mass/Vol] 0.3 mg/dL Normal <1.2 [facility] Comment on above: Performed By: #### L AB17, LAB18, LAB63, [id number] ####Moisture Machine Tender: MIGUEL LEAL ([id number])[facility])[address] [place] [address] Calcium [Mass/Vol] 8.8 mg/dL Normal 8.8-10.0 [facility] Comment on above: Performed By: #### L AB17, LAB18, LAB63, [id number] ####Moisture Machine Tender: MIGUEL LEAL ([id number])[facility] ([facility])[address] [place] [address] Chloride [Moles/Vol] 103 mmol/L Normal 98-107 [facility] Comment on above: Performed By: #### L AB17, LAB18, LAB63, [id number] ####Moisture Machine Tender: MIGUEL LEAL ([id number])[facility] ([facility])[address] [place] [address] CO2 [Moles/Vol] 22 mmol/L Low 23-31 [facility] Comment on above: Performed By: #### L AB17, LAB18, LAB63, [id number] ####Moisture Machine Tender: MIGUEL LEAL ([id number])[facility])[address] [place] [address] Creatinine [Mass/Vol] 0.69 mg/dL Normal 0.57-1.11 [facility] Comment on above: Performed By: #### L AB17, LAB18, LAB63, [id number] ####Moisture Machine Tender: MIGUEL LEAL ([id number])[facility])[address] [place] [address] GLOMERULAR FILTRATION RATE ML/MIN/1.73 SQ M.PREDICTED >90.0 Normal >60.0 [facility] Comment on above: Result Comment: Calc ulation based on the Chronic Kidney Disease Epidemiology Collaboration (CKD-EPI) equation refit without adjustment for race Performed By: #### L AB17, LAB18, LAB63, [id number] ####Moisture Machine Tender: MIGUEL LEAL ([id number])[facility])[address] [place] [address] Glucose [Mass/Vol] 92 mg/dL Normal 82-115 [facility] Comment on above: Performed By: #### L AB17, LAB18, LAB63, [id number] ####Moisture Machine Tender: MIGUEL LEAL ([id number])[facility])[address] [place] [address] Potassium [Moles/Vol] 4.1 mmol/L Normal 3.5-5.1 [facility] Comment on above: Result Comment: [facility] potassium values may be up to 0.5 mmol/L lower than serum values. Performed By: #### L AB17, LAB18, LAB63, [id number] ####Moisture Machine Tender: MIGUEL LEAL ([id number])[facility])[address] [place] [address] Protein [Mass/Vol] 6.2 g/dL Low 6.4-8.3 [facility] Comment on above: Performed By: #### L AB17, LAB18, LAB63, [id number] ####Moisture Machine Tender: MIGUEL LEAL ([id number])[facility] ([facility])[address] [place] [address] Sodium [Moles/Vol] 136 mmol/L Normal 136-145 [facility] Comment on above: Performed By: #### L AB17, LAB18, LAB63, [id number] ####Moisture Machine Tender: MIGUEL LEAL ([id number])[facility])[address] [place] [address] Urea nitrogen [Mass/Vol] 18 mg/dL Normal 9-23 [facility] Comment on above: Performed By: #### L AB17, LAB18, LAB63, [id number] ####Moisture Machine Tender: MIGUEL LEAL ([id number])[facility])[address] [place] [address] Calcium.ionized [Moles/Vol]o n 06-15-2025 Calcium.ionized (Bld) [Moles/Vol] 4.5 mg/dL 4.30 - 5.20 mg/dL [facility] Interpretation and review of laboratory results Normal [facility] PH, IONIZED CALCIUM 7.4 7.31 - 7.46 [facility] Comprehensive metabolic 1998 panelon 06-15-2025 Albumin [Mass/Vol] 3.4 g/dL 3.4 - 4.8 g/dL [facility] ALP [Catalytic activity/Vol] 46 U/L 40 - 150 U/L [facility] ALT [Catalytic activity/Vol] U/L NINF - 30 U/L [facility] Anion gap [Moles/Vol] 11 mmol/L 3 - 13 mmol/L [facility] AST [Catalytic activity/Vol] 32 U/L NINF - 34 U/L [facility] Bilirubin [Mass/Vol] 0.3 mg/dL NINF - 1.2 mg/dL [facility] Calcium [Mass/Vol] 8.8 mg/dL 8.8 - 10. 0 mg/dL [facility] Chloride [Moles/Vol] 103 mmol/L 98 - 10 7 mmol/L [facility] CO2 [Moles/Vol] 22 mmol/L Low 23 - 31 mmol/L [facility] Creatinine [Mass/Vol] 0.69 mg/dL 0.57 - 1.11 mg/dL [facility] GFR/1.73 sq M.predicted (S/P/Bld) [Vol rate/Area] - PINF [facility] Glucose [Mass/Vol] 92 mg/dL 82 - 115 mg/dL [facility] Potassium [Moles/Vol] 4.1 mmol/L 3.5 - 5.1 mmol/L [facility] Protein [Mass/Vol] 6.2 g/dL Low 6.4 - 8.3 g/dL [facility] Sodium [Moles/Vol] 136 mmol/L 136 - 145 mmol/L [facility] Urea nitrogen [Mass/Vol] 18 mg/dL 9 - 23 mg/dL [facility] Consulton 06-15-2025 Consult Normal [facility] LIPID PANELon 06-15-2025 Cholesterol [Mass/Vol] 295 mg/dL High <200 [facility] Comment on above: Order Comment: If no t done in the last six months. Performed By: #### L AB17, LAB18, LAB63, [id number] ####Moisture Machine Tender: MIGUEL LEAL ([id number])[facility] ([facility])[address] [place] [address] Cholesterol in HDL [Mass/Vol] 79 mg/dL Normal >=60 [facility] Comment on above: Order Comment: If no t done in the last six months. Performed By: #### L AB17, LAB18, LAB63, [id number] ####Moisture Machine Tender: MIGUEL LEAL ([id number])[facility])[address] [place] [address] Cholesterol.total/Mel sterol in HDL [Mass ratio] 4 {ratio} Normal [facility] Comment on above: Order Comment: If no t done in the last six months. Result Comment: Ref Range:< 3 Low Risk for CHD3-6 Mod Risk for CHD> 6 High Risk for CHD Performed By: #### L AB17, LAB18, LAB63, [id number] ####Moisture Machine Tender: MIGUEL LEAL ([id number])[address] LOW DENSITY LIPOPROTEIN 190 mg/dL High 0-<100 [facility] Comment on above: Order Comment: If no t done in the last six months. Performed By: #### L AB17, LAB18, LAB63, [id number] ####Moisture Machine Tender: MIGUEL LEAL ([id number])[facility])[address] [place] [address] NON-HDL CHOLESTEROL, CALCULATED 216 High <130 [facility] Comment on above: Order Comment: If no t done in the last six months. Performed By: #### L AB17, LAB18, LAB63, [id number] ####Moisture Machine Tender: MIGUEL LEAL ([id number])[facility])[address] [place] [address] Triglyceride [Mass/Vol] 129 mg/dL Normal <150 [facility] Comment on above: Order Comment: If no t done in the last six months. Performed By: #### L AB17, LAB18, LAB63, [id number] ####Moisture Machine Tender: MIGUEL LEAL ([id number])[facility])[address] [place] [address] VERY LOW DENSITY LIPOPROTEIN, CALCULATED 26 mg/dL Normal <=30 [facility] Comment on above: Order Comment: If no t done in the last six months. Performed By: #### L AB17, LAB18, LAB63, [id number] ####Moisture Machine Tender: MIGUEL LEAL ([id number])[facility] ([facility])[address] [place] [address] Laboratory - Chemistry and C hemistry - challengeon 06-15-2025 Magnesium [Mass/Vol] 2.2 mg/dL 1.6 - 2 .6 mg/dL [facility] Lipid 1996 panelon Cholesterol [Mass/Vol] 295 mg/dL High [facility] mg/dL [facility] Cholesterol in HDL [Mass/Vol] 79 mg/dL 60 - PINF mg/dL [facility] Cholesterol in LDL [Mass/Vol] 190 mg/dL High 0 - <100 [facility] Cholesterol.total/Mel sterol in HDL [Mass ratio] 4 {ratio} [facility] NON-HDL CHOLESTEROL, CALCULATED 216 High NINF - 130 [facility] Triglyceride [Mass/Vol] 129 mg/dL NINF - 150 mg/dL [facility] VERY LOW DENSITY LIPOPROTEIN, CALCULATED 26 mg/dL [facility] 30 mg/dL [facility] MAGNESIUMon 06-15-2025 Magnesium [Mass/Vol] 2.2 mg/dL Normal 1.6-2.6 [facility] Comment on above: Result Comment: ROCIO R COMMENTS:Higher values can be expected in females during menses. Performed By: #### L AB17, LAB18, LAB63, [id number] ####Moisture Machine Tender: MIGUEL LEAL ([id number])[facility] [place] [address] Magnesium [Mass/Vol]on 06-15 Interpretation and review of laboratory results Normal [facility] No Panel Informationon 06-15 Interpretation and review of laboratory results Abnormal [facility] Progress Noteon 06-15-2025 Progress Note Normal [facility] aPTT Coag (Bld) [Time]on aPTT Coag (PPP) [Time] 61.7 s High 20.0 - 30.5 s [facility] Interpretation and review of laboratory results Abnormal [facility] aPTT Coag (PPP) [Time] 47 s High 20.0 - 30.5 s [facility] Interpretation and review of laboratory results Abnormal [facility] aPTT Coag (PPP) [Time] 63.2 s High 20.0 - 30.5 s [facility] Interpretation and review of laboratory results Abnormal [facility] aPTT Coag (PPP) [Time] 39.3 s High 20.0 - 30.5 s [facility] Interpretation and review of laboratory results Abnormal [facility] APTTon 06-14-2025 aPTT Coag (Bld) [Time] 36.9 s High 20.0-30.5 [facility] Comment on above: Result Comment: ROCIO Bhandari COMMENTS:NOTE: The therapeutic time for Heparin anticoagulation, based on Xa activity inhibition, is an APTT of 46-80 seconds. Performed By: #### L [id number] ####Moisture Machine Tender: MIGUEL LEAL ([id number])[facility] ([facility] Absolute lymphocyte countOrd ered By: Hui Morel on 06-14-2025 Lymphocytes Auto (Unsp spec) [#/Vol] 2.43 10*3/uL 0.83-4.51 [facility] Absolute neutrophil countOrd ered By: Hui Morel on 06-14-2025 Neutrophils (Bld) [#/Vol] 2.4 10*3/uL 2.0-7.7 [facility] Activated partial thrombopla stin time (aPTT) in platelet poor plasma by coagulation aOrdered By: Efren Moss on 06-14-2025 aPTT Coag (PPP) [Time] 111.8 s High 24.1-36.2 [facility] Comment on above: CRITICAL VALUE MERCADO D TO [id number]/25/25 0145 Maxim Gurrola.RESULTS READ BACK BY SAME. Anion gap in Serum or Plasma Ordered By: Hui Morel on 06-14-2025 Anion gap [Moles/Vol] 11 mmol/L 5-15 [facility] Automated lymphocyte count a s percentage of total leukocytesOrdered By: White on 06-14-2025 Lymphocytes/100 WBC Auto (Unsp spec) 45.0 % High 19-41 [facility] BUN/creatinine ratioOrdered By: White on 06-14-2025 Urea nitrogen/Creatinine [Mass ratio] 34.4 mg/mg High 10-20 [facility] Basophil percentageOrdered B y: White on 06-14-2025 Basophils/100 WBC (Bld) 0.7 % 0-1 [facility] Bilirubin, totalOrdered By: White on 06-14-2025 Bilirubin [Mass/Vol] 0.24 mg/dL 0.00-1.30 [facility] CBC (HEMOGRAM)on 06-14-2025 Erythrocyte distribution width (RBC) [Ratio] 13.4 % Normal 11.5-15.0 [facility] Comment on above: Performed By: #### L [id number] ####Moisture Machine Tender: MIGUEL LEAL ([id number])[facility])[address] [place] [address] Hematocrit (Bld) [Volume fraction] 40.1 % Normal 35.0-47.0 [facility] Comment on above: Performed By: #### L AB294 ####Moisture Machine Tender: MIGUEL LEAL ([id number])[facility])[address] [place] [address] Hemoglobin (Bld) [Mass/Vol] 13.4 g/dL Normal 11.7-16.0 [facility] Comment on above: Performed By: #### L AB294 ####Moisture Machine Tender: MIGUEL LEAL ([id number])[facility])[address] [place] [address] MCH (RBC) [Entitic mass] 31.6 pg Normal 26.0-34.0 [facility] Comment on above: Performed By: #### L AB294 ####Moisture Machine Tender: MIGUEL LEAL ([id number])[facility])[address] [place] [address] MCHC 33.4 % Normal 30.5-36.0 [facility] Comment on above: Performed By: #### L AB294 ####Moisture Machine Tender: MIGUEL LEAL ([id number])[facility])[address] [place] [address] MCV (RBC) [Entitic vol] 94.6 fL Normal 77.0-99.0 [facility] Comment on above: Performed By: #### L AB294 ####Moisture Machine Tender: MIGUEL LEAL ([id number])[facility] ([facility])[address] [place] [address] Platelet mean volume (Bld) [Entitic vol] 10.3 fL Normal 9.0-12.7 [facility] Comment on above: Performed By: #### L AB294 ####Moisture Machine Tender: MIGUEL LEAL ([id number])[facility])[address] [place] [address] Platelets (Bld) [#/Vol] 236 10*3/uL Normal 140-440 [facility] Comment on above: Performed By: #### L AB294 ####Moisture Machine Tender: MIGUEL LEAL ([id number])[facility] ([facility])[address] [place] [address] RBC (Bld) [#/Vol] 4.24 10*6/uL Normal 3.80-5.20 [facility] Comment on above: Performed By: #### L AB294 ####Moisture Machine Tender: MIGUEL LEAL ([id number])[facility])[address] [place] [address] WBC (Bld) [#/Vol] 6.2 10*3/uL Normal 3.6-10.7 [facility] Comment on above: Performed By: #### L AB294 ####Moisture Machine Tender: MIGUEL LEAL ([id number])[facility])[address] [place] [address] CBC W/Diff, Automatedon 07-2 -2024 Absolute Neut Normal 2.0-7.7 [facility] Comment on above: Order Comment: Comme nts: If not done in prior 24 hours Result Comment: OK T O CANCEL BY TDEVEREAUX Performed By: #### L 100.0100, L300.3900 #### [facility] [address] [place], [address] Performed By: #### L 100.0100 #### [facility] [address] [place], [address] HCT Normal 37-47 [facility] Comment on above: Order Comment: Comme nts: If not done in prior 24 hours Result Comment: OK T O CANCEL BY TDEVEREAUX Performed By: #### L 100.0100, L300.3900 #### [facility] [address] [place], [address] Performed By: #### L 100.0100 #### [facility] [address] [place], [address] HGB Normal 12.0-15.0 [facility] Comment on above: Order Comment: Comme nts: If not done in prior 24 hours Result Comment: OK T O CANCEL BY TDEVEREAUX Performed By: #### L 100.0100, L300.3900 #### [facility] [address] [place], [address] Performed By: #### L 100.0100 #### [facility] [address] [place], [address] MCH Normal 27.0-32.0 [facility] Comment on above: Order Comment: Comme nts: If not done in prior 24 hours Result Comment: OK T O CANCEL BY TDEVEREAUX Performed By: #### L 100.0100, L300.3900 #### [facility] [address] [place], [address] Performed By: #### L 100.0100 #### [facility] [address] [place], [address] MCHC Normal 32-36 [facility] Comment on above: Order Comment: Comme nts: If not done in prior 24 hours Result Comment: OK T O CANCEL BY TDEVEREAUX Performed By: #### L 100.0100, L300.3900 #### [facility] [address] [place], [address] Performed By: #### L 100.0100 #### [facility] [address] [place], [address] MCV Normal 81-99 [facility] Comment on above: Order Comment: Comme nts: If not done in prior 24 hours Result Comment: OK T O CANCEL BY TDEVEREAUX Performed By: #### L 100.0100, L300.3900 #### [facility] [address] [place], [address] Performed By: #### L 100.0100 #### [facility] [address] [place], [address] NEUT% Normal 47-70 [facility] Comment on above: Order Comment: Comme nts: If not done in prior 24 hours Result Comment: OK T O CANCEL BY TDEVEREAUX Performed By: #### L 100.0100, L300.3900 #### [facility] [address] [place], [address] Performed By: #### L 100.0100 #### [facility] [address] [place], [address] PLT Normal 150-450 [facility] Comment on above: Order Comment: Comme nts: If not done in prior 24 hours Result Comment: OK T O CANCEL BY TDEVEREAUX Performed By: #### L 100.0100, L300.3900 #### [facility] [address] [place], [address] Performed By: #### L 100.0100 #### [facility] [address] [place], [address] RBC Normal 4.2-5.4 [facility] Comment on above: Order Comment: Comme nts: If not done in prior 24 hours Result Comment: OK T O CANCEL BY TDEVEREAUX Performed By: #### L 100.0100, L300.3900 #### [facility] [address] [place], [address] Performed By: #### L 100.0100 #### [facility] [address] [place], [address] RDW CV Normal 11.6-14.6 [facility] Comment on above: Order Comment: Comme nts: If not done in prior 24 hours Result Comment: OK T O CANCEL BY TDEVEREAUX Performed By: #### L 100.0100, L300.3900 #### [facility] [address] [place], [address] Performed By: #### L 100.0100 #### [facility] [address] [place], [address] RDW SD Normal 35.1-43.9 [facility] Comment on above: Order Comment: Comme nts: If not done in prior 24 hours Result Comment: OK T O CANCEL BY TDEVEREAUX Performed By: #### L 100.0100, L300.3900 #### [facility] [address] [place], [address] Performed By: #### L 100.0100 #### [facility] [address] [place], [address] WBC Normal 4.4-11.0 [facility] Comment on above: Order Comment: Comme nts: If not done in prior 24 hours Result Comment: OK T O CANCEL BY CHRISTOPHEREVERYARIEL Performed By: #### L 100.0100, L300.3900 #### [facility] [address] [place], [address] Performed By: #### L 100.0100 #### [facility] [address] [place], [address] Absolute Lymph 2.43 X10 3/uL Normal 0.83-4.51 [facility] Comment on above: Performed By: #### L 499.0042 #### [facility] [address] [place], [address] Absolute Neut 2.4 X10 3/uL Normal 2.0-7.7 [facility] Comment on above: Performed By: #### L 499.0042 #### [facility] [address] [place], [address] Basophils/100 WBC (Bld) 0.7 % Normal 0-1 [facility] Comment on above: Performed By: #### L 499.0042 #### [facility] [address] [place], [address] Eosinophils/100 WBC (Bld) 0.9 % Normal 0-5 [facility] Comment on above: Performed By: #### L 499.0042 #### [facility] [address] [place], [address] Erythrocyte distribution width (RBC) [Ratio] 13.3 % Normal 11.6-14.6 [facility] Comment on above: Performed By: #### L 499.0042 #### [facility] [address] [place], [address] Hematocrit (Bld) [Volume fraction] 36.1 % Low 37-47 [facility] Comment on above: Performed By: #### L 499.0042 #### [facility] [address] [place], [address] Hemoglobin (Bld) [Mass/Vol] 12.1 g/dL Normal 12.0-15.0 [facility] Comment on above: Performed By: #### L 499.0042 #### [facility] [address] [place], [address] IG% 0.400 Normal 0.0-0.9 [facility] Comment on above: Result Comment: IG% - Immature Granulocytes (promyelocytes, myelocytes and metamyelocytes) > 1% indicates that a LEFT SHIFT is Present. Performed By: #### L 499.0042 #### [facility] [address] [place], [address] Lymphocytes/100 WBC (Bld) 45.0 % High 19-41 [facility] Comment on above: Performed By: #### L 499.0042 #### [facility] [address] [place], [address] MCH (RBC) [Entitic mass] 31.8 pg Normal 27.0-32.0 [facility] Comment on above: Performed By: #### L 499.0042 #### [facility] [address] [place], [address] MCHC (RBC) [Mass/Vol] 33.5 g/dL Normal 32-36 [facility] Comment on above: Performed By: #### L 499.0042 #### [facility] [address] [place], [address] MCV (RBC) [Entitic vol] 95.0 fL Normal 81-99 [facility] Comment on above: Performed By: #### L 499.0042 #### [facility] [address] [place], [address] Monocytes/100 WBC (Bld) 8.7 % Normal 0-10 [facility] Comment on above: Performed By: #### L 499.0042 #### [facility] [address] [place], [address] Neutrophils/100 WBC (Bld) 44.3 % Low 47-70 [facility] Comment on above: Performed By: #### L 499.0042 #### [facility] [address] [place], [address] Nucleated RBC (Bld) [#/Vol] 0 10*3/uL Normal 0-5 [facility] Comment on above: Performed By: #### L 499.0042 #### [facility] [address] [place], [address] Platelet mean volume (Bld) [Entitic vol] 10.5 fL Normal 6.2-12.0 [facility] Comment on above: Performed By: #### L 499.0042 #### [facility] [address] [place], [address] Platelets (Bld) [#/Vol] 220 10*3/uL Normal 150-450 [facility] Comment on above: Performed By: #### L 499.0042 #### [facility] [address] [place], [address] RBC (Bld) [#/Vol] 3.80 10*6/uL Low 4.2-5.4 [facility] Comment on above: Performed By: #### L 499.0042 #### [facility] [address] [place], [address] RDW SD 46.9 fl High 35.1-43.9 [facility] Comment on above: Performed By: #### L 499.0042 #### [facility] [address] [place], [address] WBC (Bld) [#/Vol] 5.4 10*3/uL Normal 4.4-11.0 [facility] Comment on above: Performed By: #### L 499.0042 #### [facility] [address] [place], [address] CBC panel Auto (Bld)on 06-14 Erythrocyte distribution width (RBC) [Ratio] 13.4 % 11.5 - 15.0 % [facility] Hematocrit (Bld) [Volume fraction] 40.1 % 35.0 - 47.0 % [facility] Hemoglobin (Bld) [Mass/Vol] 13.4 g/dL 11.7 - 16.0 g/dL [facility] Interpretation and review of laboratory results Normal [facility] MCH (RBC) [Entitic mass] 31.6 pg 26.0 - 34.0 pg [facility] MCHC (RBC) [Mass/Vol] 33.4 % 30.5 - 36.0 % [facility] MCV (RBC) [Entitic vol] 94.6 fL 77.0 - 99.0 fL [facility] cisimple Platelet mean volume (Bld) [Entitic vol] 10.3 fL 9.0 - 12.7 fL [facility] cisimple Platelets (Bld) [#/Vol] 236 10*3/uL 140 - 440 10*3/uL [facility] RBC (Bld) [#/Vol] 4.24 10*6/uL 3.80 - 5.2 0 10*6/uL [facility] WBC (Bld) [#/Vol] 6.2 10*3/uL 3.6 - 10.7 10*3/uL [facility] CK TOTAL AND CKMBon 06-14-20 CK [Catalytic activity/Vol] 95 U/L Normal 30-185 [facility] Comment on above: Performed By: #### L [id number], [id number], LAB63, LAB17 ####Moisture Machine Tender: MIGUEL LEAL ([id number])[address] CK.MB [Mass/Vol] 2.7 ng/mL Normal <=3.4 [facility] Comment on above: Result Comment: ROCIO Bhandari COMMENTS:If CK-MB is elevated and the ratio of CK-MB to total CK (relative index) is more than 3, then it is likely that the heart was damaged. A high CK with a relative index below this value suggests that skeletal muscles were damaged. Performed By: #### L [id number], [id number], LAB63, LAB17 ####Moisture Machine Tender: MIGUEL LEAL ([id number])[facility] ([facility])[address] [place] [address] RELATIVE INDEX 2.8 % Normal <=3.0 [facility] Comment on above: Performed By: #### L [id number], [id number], LAB63, LAB17 ####Moisture Machine Tender: MIGUEL LEAL ([id number])[facility])[address] [place] [address] CK.total/Creatine kinase.MB [Catalytic ratio]on 06-14-2025 CK [Catalytic activity/Vol] 95 U/L 30 - 185 U/L [facility] CK.MB [Mass/Vol] 2.7 ng/mL [facility] - 3.4 ng/mL [facility] Interpretation and review of laboratory results Normal [facility] RELATIVE INDEX 2.8 % [facility] - 3.0 % [facility] COMPREHENSIVE METABOLIC PANE [place] 06-14-2025 Albumin [Mass/Vol] 3.7 g/dL Normal 3.4-4.8 [facility] Comment on above: Performed By: #### L [id number], [id number], LAB63, LAB17 ####Moisture Machine Tender: MIGUEL LEAL ([id number])[facility] ([facility])[address] [place] [address] ALP [Catalytic activity/Vol] 50 U/L Normal 40-150 [facility] Comment on above: Performed By: #### L [id number], [id number], LAB63, LAB17 ####Moisture Machine Tender: MIGUEL LEAL ([id number])[facility])[address] [place] [address] ALT [Catalytic activity/Vol] U/L Normal <30 [facility] Comment on above: Performed By: #### L [id number], [id number], LAB63, LAB17 ####Moisture Machine Tender: MIGUEL LEAL ([id number])[facility] [place] [address] Anion gap [Moles/Vol] 6 mmol/L Normal 3-13 [facility] Comment on above: Performed By: #### L [id number], [id number], LAB63, LAB17 ####Moisture Machine Tender: MIGUEL LEAL ([id number])[facility] ([facility])[address] [place] [address] AST [Catalytic activity/Vol] 34 U/L High <34 [facility] Comment on above: Performed By: #### L [id number], [id number], LAB63, LAB17 ####Moisture Machine Tender: MIGUEL LEAL ([id number])[facility] ([facility])[address] [place] [address] Bilirubin [Mass/Vol] 0.4 mg/dL Normal <1.2 [facility] Comment on above: Performed By: #### L [id number], [id number], LAB63, LAB17 ####Moisture Machine Tender: MIGUEL LEAL ([id number])[facility] ([facility])[address] [place] [address] Calcium [Mass/Vol] 8.4 mg/dL Low 8.8-10.0 [facility] Comment on above: Performed By: #### L [id number], [id number], LAB63, LAB17 ####Moisture Machine Tender: MIGUEL LEAL ([id number])[facility] ([facility])[address] [place] [address] [place] Chloride [Moles/Vol] 104 mmol/L Normal 98-107 [facility] Comment on above: Performed By: #### L [id number], [id number], LAB63, LAB17 ####Moisture Machine Tender: MIGUEL LEAL ([id number])[facility] ([facility])[address] [place] [address] [place] CO2 [Moles/Vol] 25 mmol/L Normal 23-31 [facility] Comment on above: Performed By: #### L [id number], [id number], LAB63, LAB17 ####Moisture Machine Tender: MIGUEL LEAL ([id number])[facility])[address] [place] [address] Creatinine [Mass/Vol] 0.62 mg/dL Normal 0.57-1.11 [facility] Comment on above: Performed By: #### L [id number], [id number], LAB63, LAB17 ####Moisture Machine Tender: MIGUEL LEAL ([id number])[facility])[address] [place] [address] GLOMERULAR FILTRATION RATE ML/MIN/1.73 SQ M.PREDICTED >90.0 Normal >60.0 [facility] Comment on above: Result Comment: Calc ulation based on the Chronic Kidney Disease Epidemiology Collaboration (CKD-EPI) equation refit without adjustment for race Performed By: #### L [id number], [id number], LAB63, LAB17 ####Moisture Machine Tender: MIGUEL LEAL ([id number])[facility])[address] [place] [address] Glucose [Mass/Vol] 102 mg/dL Normal 82-115 [facility] Comment on above: Performed By: #### L [id number], [id number], LAB63, LAB17 ####Moisture Machine Tender: MIGUEL LEAL ([id number])[address] Potassium [Moles/Vol] 3.9 mmol/L Normal 3.5-5.1 [facility] Comment on above: Result Comment: [facility] potassium values may be up to 0.5 mmol/L lower than serum values. Performed By: #### L [id number], [id number], LAB63, LAB17 ####Moisture Machine Tender: MIGUEL LEAL ([id number])[address] Protein [Mass/Vol] 6.5 g/dL Normal 6.4-8.3 [facility] Comment on above: Performed By: #### L [id number], [id number], LAB63, LAB17 ####Moisture Machine Tender: MIGUEL LEAL ([id number])[facility] ([facility])[address] [place] [address] Sodium [Moles/Vol] 135 mmol/L Low 136-145 [facility] Comment on above: Performed By: #### L [id number], [id number], LAB63, LAB17 ####Moisture Machine Tender: MIGUEL LEAL ([id number])[facility] [place] [address] Urea nitrogen [Mass/Vol] 11 mg/dL Normal 9-23 [facility] Comment on above: Performed By: #### L [id number], [id number], LAB63, LAB17 ####Moisture Machine Tender: MIGUEL LEAL ([id number])[facility] [place] [address] Calculated very low density lipoprotein (VLDL) cholesterol measurementOrdered By: Hui Morel on 06-14-2025 Calculated very low density lipoprotein (VLDL) cholesterol measurement 18 mg/dL 5-40 [facility] Carbon dioxide, total [Moles /volume] in Central venous bloodOrdered By: Hui Morel on 06-14-2025 CO2 [Moles/Vol] 23.9 mmol/L 21.0-32.0 [facility] Chloride assayOrdered By: Ankita Morel on 06-14-2025 Chloride [Moles/Vol] 103 mmol/L 98-108 [facility] Comprehensive Metabolic Prof ilon 06-14-2025 Albumin [Mass/Vol] 3.7 g/dL Normal 3.4-4.8 [facility] Comment on above: Performed By: #### L 499.0042 #### [facility] [address] [place], [place], [id number] Albumin/Globulin [Mass ratio] 1.7 {ratio} Normal 0.9-2.4 [facility] Comment on above: Performed By: #### L 499.0042 #### [facility] [address] [place], [place], [id number] ALK PHOS 46 U/L Normal 35-104 [facility] Comment on above: Performed By: #### L 499.0042 #### [facility] [address] [place], [address] ALT [Catalytic activity/Vol] 6 U/L Normal <=34 [facility] Comment on above: Performed By: #### L 499.0042 #### [facility] [address] [place], [address] AST [Catalytic activity/Vol] 28 U/L Normal <=31 [facility] Comment on above: Performed By: #### L 499.0042 #### [facility] [address] [place], [address] Bilirubin [Mass/Vol] 0.24 mg/dL Normal 0.00-1.30 [facility] Comment on above: Performed By: #### L 499.0042 #### [facility] [address] [place], [address] BUN/CRE 34.4 RATIO High 10-20 [facility] Comment on above: Performed By: #### L 499.0042 #### [facility] [address] [place], [address] Calcium [Mass/Vol] 8.4 mg/dL Normal 7.6-11.0 [facility] Comment on above: Performed By: #### L 499.0042 #### [facility] [address] [place], [address] Chloride [Moles/Vol] 103 mmol/L Normal 98-108 [facility] Comment on above: Performed By: #### L 499.0042 #### [facility] [address] [place], [address] CO2 [Moles/Vol] 23.9 mmol/L Normal 21.0-32.0 [facility] Comment on above: Performed By: #### L 499.0042 #### [facility] [address] [place], [address] Creatinine [Mass/Vol] 0.56 mg/dL Low 0.70-1.20 [facility] Comment on above: Performed By: #### L 499.0042 #### [facility] [address] [place], [address] ECRCL 51.04 ml/min Normal 50-250 [facility] Comment on above: Performed By: #### L 499.0042 #### [facility] [address] [place], [address] GAP 11 Normal 5-15 [facility] Comment on above: Performed By: #### L 499.0042 #### [facility] [address] [place], [address] GFR/1.73 sq M.predicted among non-blacks MDRD (S/P/Bld) [Vol rate/Area] 96 mL/min/{1.73_m2} Normal >60 [facility] Comment on above: Result Comment: mL/m in/1.73m2 CKD-EPI Creatinine Equation (2020) Performed By: #### L 499.0042 #### [facility] [address] [place], [address] Globulin (S) [Mass/Vol] 2.2 g/dL Normal 2.2-4.2 [facility] Comment on above: Performed By: #### L 499.0042 #### [facility] [address] [place], [address] Glucose [Mass/Vol] 96 mg/dL Normal 70-99 [facility] Comment on above: Performed By: #### L 499.0042 #### [facility] [address] [place], [address] Potassium [Moles/Vol] 3.9 mmol/L Normal 3.3-5.1 [facility] Comment on above: Performed By: #### L 499.0042 #### [facility] [address] [place], [place], [address] Sodium [Moles/Vol] 137 mmol/L Normal 133-145 [facility] Comment on above: Performed By: #### L 499.0042 #### [facility] [address] [place], [place], [id number] T PROT 5.9 g/dL Normal 5.9-8.4 [facility] Comment on above: Performed By: #### L 499.0042 #### [facility] [address] [place], [address] Urea nitrogen [Mass/Vol] 19 mg/dL Normal 4-19 [facility] Comment on above: Performed By: #### L 499.0042 #### [facility] [address] [place], [place], [id number] Comprehensive metabolic 1998 panelon 06-14-2025 Albumin [Mass/Vol] 3.7 g/dL 3.4 - 4.8 g/dL [facility] ALP [Catalytic activity/Vol] 50 U/L 40 - 150 U/L [facility] ALT [Catalytic activity/Vol] U/L NINF - 30 U/L [facility] Anion gap [Moles/Vol] 6 mmol/L 3 - 13 mmol/L [facility] AST [Catalytic activity/Vol] 34 U/L High NINF - 34 U/L [facility] Bilirubin [Mass/Vol] 0.4 mg/dL NINF - 1.2 mg/dL [facility] Calcium [Mass/Vol] 8.4 mg/dL Low 8.8 - 10. 0 mg/dL [facility] Chloride [Moles/Vol] 104 mmol/L 98 - 10 7 mmol/L [facility] CO2 [Moles/Vol] 25 mmol/L 23 - 31 mmol/L [facility] Creatinine [Mass/Vol] 0.62 mg/dL 0.57 - 1.11 mg/dL [facility] GFR/1.73 sq M.predicted (S/P/Bld) [Vol rate/Area] - PINF [facility] Glucose [Mass/Vol] 102 mg/dL 82 - 115 mg/dL [facility] Interpretation and review of laboratory results Abnormal [facility] Potassium [Moles/Vol] 3.9 mmol/L 3.5 - 5.1 mmol/L [facility] Protein [Mass/Vol] 6.5 g/dL 6.4 - 8.3 g/dL [facility] Sodium [Moles/Vol] 135 mmol/L Low 136 - 145 mmol/L [facility] Urea nitrogen [Mass/Vol] 11 mg/dL 9 - 23 mg/dL [facility] Consultation - Cardiologyon 06-14-2025 Consultation - Cardiology [facility] Medical Records Department [address] [place] [address] Consultation - Cardiology 06/14/25 0741 MR#: [id number] Acct: [id number] Name: RICHIE ARMAS Rep #: [id number] : 1950 75 From: Edil Hong MD [...] for cardiology consultation. She is currently pain-free. [facility] Medical History Chronic idiopathic constipation CKD [...] (From Phenergan) AdvReac Other Verified 06/13/25 17:31 Xowgspt-RUW-HpN Reductase AdvReac Pain in Verified 06/13/25 17:31 [...] Integumentary Integumenta (more content not included)... Normal [facility] ECG 12-LEADon 06-14-2025 ECG 12-LEAD IMPRESSION: Sinus rhythm Ventricular premature complex Minimal ST depression, anterolateral leads Electronically Signed On 06-14-2025 17:05:24 EDT by Elva Germain [facility] Eosinophil percentageOrdered By: White on 06-14-2025 Eosinophils/100 WBC (Bld) 0.9 % 0-5 [facility] Erythrocyte distribution wid th ratioOrdered By: White on 06-14-2025 Erythrocyte distribution width (RBC) [Ratio] 13.3 % 11.6-14.6 [facility] Erythrocyte distribution wid th standard deviationOrdered By: White on 06-14-2025 Erythrocyte distribution width (RBC) [Ratio] 46.9 fl High 35.1-43.9 [facility] Glomerular filtration rate ( GFR) estimation/1.73 sq m using serum, plasma, or whole bOrdered By: Hui White on 06-14-2025 GFR/1.73 sq M.predicted among non-blacks MDRD (S/P/Bld) [Vol rate/Area] 96 mL/min/{1.73_m2} >60 [facility] Comment on above: mL/min/1.73m2 CKD-EP I Creatinine Equation (2020) HIGH SENSITIVITY TROPONIN, S ERIAL BASELINEon 06-14-2025 TROPONIN HS SERIAL BASELINE 304 ng/L Critically high <=14 [facility] Comment on above: Result Comment: In i ndividuals presenting with symptoms > 2h, a baseline troponin <= 5 ng/L suggests acutecardiac injury is unlikely and further serial testing is generally not indicated. Performed By: #### L [id number], [id number], LAB63, LAB17 ####Moisture Machine Tender: MIGUEL LEAL ([id number])[facility] ([facility])[address] [place] [address] HIGH SENSITIVITY TROPONIN, S ERIAL, SECOND TESTon 06-14-2025 2H TROPONIN HS (SERIAL 2ND TROPONIN) 318 ng/L Critically high <=14 [facility] Comment on above: Result Comment: 2h [...] 3rd serial troponin Performed By: #### L [id number] ####Moisture Machine Tender: MIGUEL LEAL ([id number])[facility] [place] [address] HIGH SENSITIVITY TROPONIN, S ERIAL, THIRD TESTon 06-14-2025 4H TROPONIN HS (SERIAL 3RD TROPONIN) 281 ng/L Critically high <=14 [facility] Comment on above: Result Comment: 4h t [...] acute cardiac injury. Performed By: #### L [id number] ####Moisture Machine Tender: MIGUEL LEAL ([id number])[facility] ([facility])[address] [place] [address] Hematocrit Auto (Bld) [Volum e fraction]Ordered By: Hui Morel on 06-14-2025 Hematocrit (Bld) [Volume fraction] 36.1 % Low 37-47 [facility] Hemoglobin measurementOrdere d By: Hui Morel on 06-14-2025 Hemoglobin (Bld) [Mass/Vol] 12.1 g/dL 12.0-15.0 [facility] Immature granulocytes/100 WB C Auto (Bld)Ordered By: Hui Morel on 06-14-2025 Immature granulocytes/100 WBC (Bld) 0.400 % 0.0-0.9 [facility] Comment on above: IG% - Immature Granu locytes (promyelocytes, myelocytes and metamyelocytes) > 1% indicates that a LEFT SHIFT is Present. LDL calc ser/plasOrdered By: Hui Morel on 06-14-2025 Cholesterol in LDL [Mass/Vol] 166 mg/dL [facility] Comment on above: Drhyhlemfn=047-651 m g/dL & Higher Awxa=758 mg/dL or greater Laboratory - Chemistry and C hemistry - challengeon 06-14-2025 TSH Qn 2.71 m[IU]/L [facility] Laboratory - Chemistry and C hemistry - challengeOrdered By: Hui Morel on 06-14-2025 AST [Catalytic activity/Vol] 28 U/L <32 [facility] Lipid Profileon 06-14-2025 CHOL:HDL 2.92 Normal [facility] Comment on above: Performed By: #### L 499.0042 #### [facility] [address] [place], [place], [address] Cholesterol [Mass/Vol] 280 mg/dL High <=200 [facility] Comment on above: Result Comment: Chol esterol level, Desirable <200 mg/dL Borderline high cholesterol 200-239 mg/dL High cholesterol >=240 mg/dL Recommendations of the NCEP Adult Treatment Panel for the following risk-cutoff thresholds for the [place] population. Performed By: #### L 499.0042 #### [facility] [address] [place], [place], [address] Cholesterol in HDL [Mass/Vol] 96 mg/dL Normal [facility] Comment on above: Result Comment: Yudy onal Cholesterol Education Program (NCEP) guidelines: <40 mg/dL: Low HDL-cholesterol (major risk factor for CHD) >= 60 mg/dL: High HDL-cholesterol (negative risk factor for CHD) HDL-cholesterol is affected by a number of factors, e.g. smoking, exercise, hormones, sex and age. Performed By: #### L 499.0042 #### [facility] [address] [place], [address] Cholesterol in LDL [Mass/Vol] 166 mg/dL Normal [facility] Comment on above: Result Comment: Bord vlpvqg=302-354 mg/dL Higher Zrxt=433 mg/dL or greater Performed By: #### L 499.0042 #### [facility] [address] [place], [address] Cholesterol in VLDL [Mass/Vol] 18 mg/dL Normal 5-40 [facility] Comment on above: Performed By: #### L 499.0042 #### [facility] [address] [place], [address] Triglyceride [Mass/Vol] 89 mg/dL Normal [facility] Comment on above: Result Comment: The drugs N-Acetylcysteine and Metamizole may falsely depress this assay. Normal range: <150 mg/dL Borderline High: 150-199 mg/dL High: 200-499 mg/dL Very High: >500 mg/dL Performed By: #### L 499.0042 #### [facility] [address] [place], [address] MCV (mean corpuscular volume ) determinationOrdered By: Hui Morel on 06-14-2025 MCV (RBC) [Entitic vol] 95.0 fL 81-99 [facility] Mean corpuscular hemoglobin (MCH) determinationOrdered By: Hui Morel on 06-14-2025 MCH (RBC) [Entitic mass] 31.8 pg 27.0-32.0 [facility] Mean corpuscular hemoglobin concentration (MCHC) determinationOrdered By: Hui Morel on 06-14-2025 MCHC (RBC) [Mass/Vol] 33.5 g/dL 32-36 [facility] Mean platelet volume determi nationOrdered By: Hui Maria Teresa on 06-14-2025 Platelet mean volume (Bld) [Entitic vol] 10.5 fL 6.2-12.0 [facility] Monocyte percentageOrdered B y: Hui White on 06-14-2025 Monocytes/100 WBC (Bld) 8.7 % 0-10 [facility] Neutrophil percentageOrdered By: Maria Teresa on 06-14-2025 Neutrophils/100 WBC (Bld) 44.3 % Low 47-70 [facility] No Panel Informationon 06-14 4h Troponin HS (Serial 3rd Troponin) 281 ng/L Critically high NINF - 14 ng/L [facility] cisimple Interpretation and review of laboratory results Abnormal [facility] Troponin HS (Serial 2nd Troponin) 318 ng/L Critically high [employer] - 14 ng/L [facility] cisimple Interpretation and review of laboratory results Abnormal [place] CV EPIPHANY [facility] cisimple No Panel InformationOrdered By: Preethi Pina on 06-14-2025 Interpretation and review of laboratory results Abnormal [facility] Troponin HS Serial Baseline 304 ng/L Critically high NINF - 14 ng/L [facility] [employer] No Panel InformationOrdered By: Elva Germain on 06-14-2025 P [place] 61 degrees [employer] Work Phone: FL Interval 157 ms [employer] Work Phone: QRS [place] 49 degrees [employer] Work Phone: QRSD Interval 86 ms [facility] Work Phone: QT Interval 376 ms [employer] Work Phone: QTC Interval 419 ms [employer] Work Phone: T Wave [place] 35 degrees [employer] Work Phone: [employer] Work Phone: Nucleated red blood cell per centageOrdered By: Hui Morel on 06-14-2025 Nucleated RBC/100 WBC (Bld) [Ratio] 0 % 0-5 [facility] Partial Thromboplast Timeon 06-14-2025 aPTT Coag (Bld) [Time] 111.8 s Invalid Interpretation Code 24.1-36.2 [facility] Comment on above: Result Comment: CRIT ICAL VALUE CALLED TO CWOBECK 06/14/25 0145 Maxim Gurrola. RESULTS READ BACK BY SAME. Performed By: #### L 499.0042 #### [facility] [address] [place], [place], [address] Platelet countOrdered By: Ankita emanuel Maria Teresa on 06-14-2025 Platelets (Bld) [#/Vol] 220 10*3/uL 150-450 [facility] Potassium measurement (mass/ volume)Ordered By: Hui Morel on 06-14-2025 Potassium (Unsp spec) [Mass/Vol] 3.9 mmol/L 3.3-5.1 [facility] Prothrombin Time w/INRon INR Normal [facility] Comment on above: Order Comment: Comme nts: If not done in prior 24 hours Result Comment: OK T O CANCEL BY TDEVEREAUX Performed By: #### L 100.0100, L300.3900 #### [facility] [address] [place], [place], [id number] (177) PROTIME Normal 11.7-14.9 [facility] Comment on above: Order Comment: Comme nts: If not done in prior 24 hours Result Comment: OK T O CANCEL BY TDEVEREAUX Performed By: #### L 100.0100, L300.3900 #### [facility] [address] [place], [address] RBC Auto (Bld) [#/Vol]Ordere d By: Hui Morel on 06-14-2025 RBC (Bld) [#/Vol] 3.80 10*6/uL Low 4.2-5.4 [facility] Screening total cholesterol/ high density lipoprotein (HDL) cholesterol ratioOrdered By: Hui Morel on 06-14-2025 Cholesterol.total/Mel sterol in HDL [Mass ratio] 2.92 {ratio} [facility] Serum creatinine measurement (mass/volume)Ordered By: Hui Morel on 06-14-2025 Creatinine [Mass/Vol] 0.56 mg/dL Low 0.70-1.20 [facility] Serum globulin measurementOr dered By: Hui Morel on 06-14-2025 Globulin (S) [Mass/Vol] 2.2 g/dL 2.2-4.2 [facility] Serum glucose measurement (m ass/volume)Ordered By: Hui Morel on 06-14-2025 Glucose [Mass/Vol] 96 mg/dL 70-99 [facility] Serum or plasma alanine carbajal otransferase (ALT) measurementOrdered By: Hui Morel on 06-14-2025 ALT [Catalytic activity/Vol] 6 U/L <35 [facility] Serum or plasma albumin jill urement (mass/volume)Ordered By: Hui Morel on 06-14-2025 Albumin [Mass/Vol] 3.7 g/dL 3.4-4.8 [facility] Serum or plasma albumin/glob ulin mass ratioOrdered By: Hui Morel on 06-14-2025 Albumin/Globulin [Mass ratio] 1.7 {ratio} 0.9-2.4 [facility] Serum or plasma alkaline kal sphatase measurementOrdered By: Hui Morel 06-14-2025 ALP [Catalytic activity/Vol] 46 U/L 35-104 [facility] Serum or plasma calcium jill urement (mass/volume)Ordered By: Hui Morel on 06-14-2025 Calcium [Mass/Vol] 8.4 mg/dL 7.6-11.0 [facility] Serum or plasma cholesterol in HDL measurement (mass/volume)Ordered By: Hui Morel on 06-14-2025 Cholesterol in HDL [Mass/Vol] 96 mg/dL >40 [facility] Comment on above: National Cholesterol Education Program (NCEP) guidelines:<40 mg/dL: Low HDL-cholesterol (major risk factor for CHD)>= 60 mg/dL: High HDL-cholesterol (negative risk factor for CHD)HDL-cholesterol is affected by a number of factors, e.g. smoking, exercise, hormones, sex and age. Serum or plasma cholesterol measurement (mass/volume)Ordered By: Hui Morel on 06-14-2025 Cholesterol [Mass/Vol] 280 mg/dL High <201 Wo [facility] Comment on above: Cholesterol level, D esirable <200 mg/dLBorderline high cholesterol 200-239 mg/dLHigh cholesterol >=240 mg/dLRecommendations of the NCEP Adult Treatment Panel for the following risk-cutoff thresholds for the [place] population. Serum or plasma urea nitroge n measurement (mass/volume)Ordered By: Hui Morel on 06-14-2025 Urea nitrogen [Mass/Vol] 19 mg/dL 4-19 [facility] Sodium levelOrdered By: Megan Morel on 06-14-2025 Sodium [Moles/Vol] 137 mmol/L 133-145 [facility] THYROID STIMULATING HORMONEo n 06-14-2025 THYROID STIMULATING HORMONE 2.71 uIU/mL Normal 0.35-4.94 [facility] Comment on above: Performed By: #### L [id number], [id number], LAB63, LAB17 ####Moisture Machine Tender: MIGUEL LEAL ([id number])[address] TSH Qnon 06-14-2025 Interpretation and review of laboratory results Normal [facility] Total proteinOrdered By: Yonas Morel on 06-14-2025 Protein [Mass/Vol] 5.9 g/dL 5.9-8.4 [facility] Triglycerides measurementOrd ered By: Hui Morel on 06-14-2025 Triglyceride [Mass/Vol] 89 mg/dL <199 [facility] Comment on above: The drugs N-Acetylcy steine and Metamizole may falsely depress this assay. Normal range: <150 mg/dLBorderline High: 150-199 mg/dLHigh: 200-499 mg/dLVery High: >500 mg/dL Troponin T HS 2 HRon 025 Trop T High Sen 88 ng/L Invalid Interpretation Code <=14 [facility] Comment on above: Result Comment: Hemo lysis present, Results??could be affected.??Critical Result(s) Called at: by:??Results read back by same. CRITICAL VALUE CALLED TO KAYLI 06/14/25 0005 Maxim Gurrola. RESULTS READ BACK BY SAME. AMENDED REPORT 06/14/25 0005 Trop T HS 2HR previously reported as: 88 *H ng/L Hemolysis present, Results??could be affected. ?? Critical Result(s) Called at: by:??Results read back by same. Performed By: #### L 499.0042 #### [facility] [address] [place], [place], [address] Troponin T HS 4 HRon 025 Trop T High Sen 114 ng/L Invalid Interpretation Code <=14 [facility] Comment on above: Result Comment: Crit ical Result(s) Called at 0137: by:??NBURNS TO TDEVERUEAX Results read back by same. Performed By: #### L 500.2500, L501.4021, L100.0100 #### [facility] [address]. [place], [place], [address] Troponin T.cardiac [Mass/vol ume] in Serum or Plasma by High sensitivity methodOrdered By: Efren Moss on 06-14-2025 Troponin T.cardiac High sensitivity method [Mass/Vol] 114 ng/L High <14 [facility] Comment on above: Critical Result(s) C alled at 0137: by: NBURNS TO TDEVERUEAX Results read back by same. Vital signsOrdered By: Juarez Germain on 06-14-2025 Heart rate 75 /min bpm [facility] Work Phone: White blood cell (WBC) count Ordered By: Hui Morel on 06-14-2025 WBC (Bld) [#/Vol] 5.4 10*3/uL 4.4-11.0 [facility] aPTT Coag (Bld) [Time]on aPTT Coag (PPP) [Time] 36.9 s High 20.0 - 30.5 s [facility] Interpretation and review of laboratory results Abnormal [facility] 12 Lead EKGon 06-13-2025 12 Lead EKG [facility] Cardiovascular Services [address] [place] [address] 12 Lead EKG 06/13/25 1740 MR#: [id number] Acct: [id number] Name: RICHIE ARMAS Rep #: [id number] : 1950 75 From: Edil Hong MD [...] T wave abnormality Abnormal ECG Confirmed by HAL NUÑEZ, EDIL ([id number]), visual effects editor ENZO PATE ([id number]) on 06/17/2025 9:41:04 AM Referred By: AJAY Confirmed By: EDIL HONG MD 06/17/25 0941 Date Edil Hong MD CC: Dr. Hui Morel MD; Dr. Narinder Crum MD; Dr. Thelma Hamm DO Signed Normal [facility] Absolute lymphocyte countOrd ered By: Efren Moss on 06-13-2025 Lymphocytes Auto (Unsp spec) [#/Vol] 1.92 10*3/uL 0.83-4.51 [facility] Absolute neutrophil countOrd ered By: Efren Ajay on 06-13-2025 Neutrophils (Bld) [#/Vol] 3.2 10*3/uL 2.0-7.7 [facility] Anion gap in Serum or Plasma Ordered By: Efrenconrado Moss on 06-13-2025 Anion gap [Moles/Vol] 11 mmol/L 5-15 [facility] Automated lymphocyte count a s percentage of total leukocytesOrdered By: Efrenconrado Moss on 06-13-2025 Lymphocytes/100 WBC Auto (Unsp spec) 34.0 % -41 [facility] BUN/creatinine ratioOrdered By: Efrenconrado Moss on 06-13-2025 Urea nitrogen/Creatinine [Mass ratio] 32.4 mg/mg High 09-09 [facility] Basic Metabolic Profile (BMP )on 06-13-2025 BUN/CRE 32.4 RATIO High 09-09 [facility] Comment on above: Performed By: #### L 500.2500, L501.4021, L100.0100 #### [facility] [address] [place], [address] Calcium [Mass/Vol] 9.4 mg/dL Normal 7.6-11.0 [facility] Comment on above: Performed By: #### L 500.2500, L501.4021, L100.0100 #### [facility] [address] [place], [address] Chloride [Moles/Vol] 99 mmol/L Normal 98-108 [facility] Comment on above: Performed By: #### L 500.2500, L501.4021, L100.0100 #### [facility] [address] [place], [address] CO2 [Moles/Vol] 26.9 mmol/L Normal 21.0-32.0 [facility] Comment on above: Performed By: #### L 500.2500, L501.4021, L100.0100 #### [facility] [address] [place], [address] Creatinine [Mass/Vol] 0.71 mg/dL Normal 0.70-1.20 [facility] Comment on above: Performed By: #### L 500.2500, L501.4021, L100.0100 #### [facility] [address] [place], [address] ECRCL 51.04 ml/min Normal 50-250 [facility] Comment on above: Performed By: #### L 500.2500, L501.4021, L100.0100 #### [facility] [address] [place], [address] GAP 11 Normal 5-15 [facility] Comment on above: Performed By: #### L 500.2500, L501.4021, L100.0100 #### [facility] [address] [place], [address] GFR/1.73 sq M.predicted among non-blacks MDRD (S/P/Bld) [Vol rate/Area] 89 mL/min/{1.73_m2} Normal >60 [facility] Comment on above: Result Comment: mL/m in/1.73m2 CKD-EPI Creatinine Equation (2020) Performed By: #### L 500.2500, L501.4021, L100.0100 #### [facility] [address] [place], [address] Glucose [Mass/Vol] 112 mg/dL High 70-99 [facility] Comment on above: Performed By: #### L 500.2500, L501.4021, L100.0100 #### [facility] [address] [place], [address] Potassium [Moles/Vol] 4.4 mmol/L Normal 3.3-5.1 [facility] Comment on above: Performed By: #### L 500.2500, L501.4021, L100.0100 #### [facility] [address] [place], [address] Sodium [Moles/Vol] 136 mmol/L Normal 133-145 [facility] Comment on above: Performed By: #### L 500.2500, L501.4021, L100.0100 #### [facility] [address] [place], [address] Urea nitrogen [Mass/Vol] 23 mg/dL High 4-19 [facility] Comment on above: Performed By: #### L 500.2500, L501.4021, L100.0100 #### [facility] [address] [place], [address] Basophil percentageOrdered B y: Efren Moss on 06-13-2024 Basophils/100 WBC (Bld) 0.5 % 0-1 [facility] CBC W/Diff, Automatedon 05-22 Absolute Lymph 1.92 X10 3/uL Normal 0.83-4.51 [facility] Comment on above: Order Comment: Comme nts: If not done in prior 24 hours Performed By: #### L 500.2500, L501.4021, L100.0100 #### [facility] [address] [place], [address] Absolute Neut 3.2 X10 3/uL Normal 2.0-7.7 [facility] Comment on above: Order Comment: Comme nts: If not done in prior 24 hours Performed By: #### L 500.2500, L501.4021, L100.0100 #### [facility] [address] [place], [address] Basophils/100 WBC (Bld) 0.5 % Normal 0-1 [facility] Comment on above: Order Comment: Comme nts: If not done in prior 24 hours Performed By: #### L 500.2500, L501.4021, L100.0100 #### [facility] [address] [place], [address] Eosinophils/100 WBC (Bld) 0.5 % Normal 0-5 [facility] Comment on above: Order Comment: Comme nts: If not done in prior 24 hours Performed By: #### L 500.2500, L501.4021, L100.0100 #### [facility] [address] [place], [address] Erythrocyte distribution width (RBC) [Ratio] 13.5 % Normal 11.6-14.6 [facility] Comment on above: Order Comment: Comme nts: If not done in prior 24 hours Performed By: #### L 500.2500, L501.4021, L100.0100 #### [facility] [address] [place], [address] Hematocrit (Bld) [Volume fraction] 39.1 % Normal 37-47 [facility] Comment on above: Order Comment: Comme nts: If not done in prior 24 hours Performed By: #### L 500.2500, L501.4021, L100.0100 #### [facility] [address] [place], [address] Hemoglobin (Bld) [Mass/Vol] 12.7 g/dL Normal 12.0-15.0 [facility] Comment on above: Order Comment: Comme nts: If not done in prior 24 hours Performed By: #### L 500.2500, L501.4021, L100.0100 #### [facility] [address] [place], [address] IG% 0.200 Normal 0.0-0.9 [facility] Comment on above: Order Comment: Comme nts: If not done in prior 24 hours Result Comment: IG% - Immature Granulocytes (promyelocytes, myelocytes and metamyelocytes) > 1% indicates that a LEFT SHIFT is Present. Performed By: #### L 500.2500, L501.4021, L100.0100 #### [facility] [address] [place], [address] Lymphocytes/100 WBC (Bld) 34.0 % Normal 19-41 [facility] Comment on above: Order Comment: Comme nts: If not done in prior 24 hours Performed By: #### L 500.2500, L501.4021, L100.0100 #### [facility] [address] [place], [address] MCH (RBC) [Entitic mass] 31.4 pg Normal 27.0-32.0 [facility] Comment on above: Order Comment: Comme nts: If not done in prior 24 hours Performed By: #### L 500.2500, L501.4021, L100.0100 #### [facility] [address] [place], [address] MCHC (RBC) [Mass/Vol] 32.5 g/dL Normal 32-36 [facility] Comment on above: Order Comment: Comme nts: If not done in prior 24 hours Performed By: #### L 500.2500, L501.4021, L100.0100 #### [facility] [address] [place], [address] MCV (RBC) [Entitic vol] 96.5 fL Normal 81-99 [facility] Comment on above: Order Comment: Comme nts: If not done in prior 24 hours Performed By: #### L 500.2500, L501.4021, L100.0100 #### [facility] [address] [place], [address] Monocytes/100 WBC (Bld) 9.0 % Normal 0-10 [facility] Comment on above: Order Comment: Comme nts: If not done in prior 24 hours Performed By: #### L 500.2500, L501.4021, L100.0100 #### [facility] [address] [place], [address] Neutrophils/100 WBC (Bld) 55.8 % Normal 47-70 [facility] Comment on above: Order Comment: Comme nts: If not done in prior 24 hours Performed By: #### L 500.2500, L501.4021, L100.0100 #### [facility] [address] [place], [address] Nucleated RBC (Bld) [#/Vol] 0 10*3/uL Normal 0-5 [facility] Comment on above: Order Comment: Comme nts: If not done in prior 24 hours Performed By: #### L 500.2500, L501.4021, L100.0100 #### [facility] [address] [place], [address] Platelet mean volume (Bld) [Entitic vol] 10.4 fL Normal 6.2-12.0 [facility] Comment on above: Order Comment: Comme nts: If not done in prior 24 hours Performed By: #### L 500.2500, L501.4021, L100.0100 #### [facility] [address] [place], [address] Platelets (Bld) [#/Vol] 241 10*3/uL Normal 150-450 [facility] Comment on above: Order Comment: Comme nts: If not done in prior 24 hours Performed By: #### L 500.2500, L501.4021, L100.0100 #### [facility] [address] [place], [address] RBC (Bld) [#/Vol] 4.05 10*6/uL Low 4.2-5.4 [facility] Comment on above: Order Comment: Comme nts: If not done in prior 24 hours Performed By: #### L 500.2500, L501.4021, L100.0100 #### [facility] [address] [place], [address] RDW SD 48.6 fl High 35.1-43.9 [facility] Comment on above: Order Comment: Comme nts: If not done in prior 24 hours Performed By: #### L 500.2500, L501.4021, L100.0100 #### [facility] [address] [place], [address] WBC (Bld) [#/Vol] 5.7 10*3/uL Normal 4.4-11.0 [facility] Comment on above: Order Comment: Comme nts: If not done in prior 24 hours Performed By: #### L 500.2500, L501.4021, L100.0100 #### [facility] [address] [place], [address] Absolute Lymph 2.31 X10 3/uL Normal 0.83-4.51 [facility] Comment on above: Performed By: #### L 500.2500, L501.4021, L100.0100 #### [facility] [address] [place], [address] Absolute Neut 3.4 X10 3/uL Normal 2.0-7.7 [facility] Comment on above: Performed By: #### L 500.2500, L501.4021, L100.0100 #### [facility] [address] [place], [address] Basophils/100 WBC (Bld) 0.5 % Normal 0-1 [facility] Comment on above: Performed By: #### L 500.2500, L501.4021, L100.0100 #### [facility] [address] [place], [address] Eosinophils/100 WBC (Bld) 0.6 % Normal 0-5 [facility] Comment on above: Performed By: #### L 500.2500, L501.4021, L100.0100 #### [facility] [address] [place], [address] Erythrocyte distribution width (RBC) [Ratio] 13.5 % Normal 11.6-14.6 [facility] Comment on above: Performed By: #### L 500.2500, L501.4021, L100.0100 #### [facility] [address] [place], [address] Hematocrit (Bld) [Volume fraction] 41.6 % Normal 37-47 [facility] Comment on above: Performed By: #### L 500.2500, L501.4021, L100.0100 #### [facility] [address] [place], [address] Hemoglobin (Bld) [Mass/Vol] 13.6 g/dL Normal 12.0-15.0 [facility] Comment on above: Performed By: #### L 500.2500, L501.4021, L100.0100 #### [facility] [address] [place], [address] IG% 0.300 Normal 0.0-0.9 [facility] Comment on above: Result Comment: IG% - Immature Granulocytes (promyelocytes, myelocytes and metamyelocytes) > 1% indicates that a LEFT SHIFT is Present. Performed By: #### L 500.2500, L501.4021, L100.0100 #### [facility] [address] [place], [address] Lymphocytes/100 WBC (Bld) 36.0 % Normal 19-41 [facility] Comment on above: Performed By: #### L 500.2500, L501.4021, L100.0100 #### [facility] [address] [place], [address] MCH (RBC) [Entitic mass] 31.5 pg Normal 27.0-32.0 [facility] Comment on above: Performed By: #### L 500.2500, L501.4021, L100.0100 #### [facility] [address] [place], [address] MCHC (RBC) [Mass/Vol] 32.7 g/dL Normal 32-36 [facility] Comment on above: Performed By: #### L 500.2500, L501.4021, L100.0100 #### [facility] [address] [place], [address] MCV (RBC) [Entitic vol] 96.3 fL Normal 81-99 [facility] Comment on above: Performed By: #### L 500.2500, L501.4021, L100.0100 #### [facility] [address] [place], [address] Monocytes/100 WBC (Bld) 8.9 % Normal 0-10 [facility] Comment on above: Performed By: #### L 500.2500, L501.4021, L100.0100 #### [facility] [address] [place], [address] Neutrophils/100 WBC (Bld) 53.7 % Normal 47-70 [facility] Comment on above: Performed By: #### L 500.2500, L501.4021, L100.0100 #### [facility] [address] [place], [address] Nucleated RBC (Bld) [#/Vol] 0 10*3/uL Normal 0-5 [facility] Comment on above: Performed By: #### L 500.2500, L501.4021, L100.0100 #### [facility] [address] [place], [address] Platelet mean volume (Bld) [Entitic vol] 10.6 fL Normal 6.2-12.0 [facility] Comment on above: Performed By: #### L 500.2500, L501.4021, L100.0100 #### [facility] [address] [place], [address] Platelets (Bld) [#/Vol] 264 10*3/uL Normal 150-450 [facility] Comment on above: Performed By: #### L 500.2500, L501.4021, L100.0100 #### [facility] [address] [place], [address] RBC (Bld) [#/Vol] 4.32 10*6/uL Normal 4.2-5.4 [facility] Comment on above: Performed By: #### L 500.2500, L501.4021, L100.0100 #### [facility] [address] [place], [address] RDW SD 48.3 fl High 35.1-43.9 [facility] Comment on above: Performed By: #### L 500.2500, L501.4021, L100.0100 #### [facility] [address] [place], [address] WBC (Bld) [#/Vol] 6.4 10*3/uL Normal 4.4-11.0 [facility] Comment on above: Performed By: #### L 500.2500, L501.4021, L100.0100 #### [facility] [address] [place], [address] Carbon dioxide, total [Moles /volume] in Central venous bloodOrdered By: Efren Moss on 06-13-2025 CO2 [Moles/Vol] 26.9 mmol/L 21.0-32.0 [facility] Chest 1 View (Portable)on Chest 1 View (Portable) [facility] Imaging Services [address] [place] [address] Chest 1 View (Portable) MR#: [id number] Acct: [id number] Name: RICHIE ARMAS Rep #: [id number] : 1950 F 75 From: Ana Radford PCP: Dr. Narinder Crum MD Status: [facility] ER Study: Chest 1 View (Portable) Date of Exam: 06/13/25 Exam# [id number] Ordering Dr: Efren Moss MD PROCEDURE: CHEST 1 VIEW (PORTABLE) 06/13/2025 REASON FOR EXAM: CHEST PAIN TECHNIQUE: Frontal view of the chest. COMPARISON: 12/20/2023 FINDINGS: No focal consolidation. No pleural effusion or pneumothorax. Cardiac silhouette is within normal limits. Calcified aortic arch. Calcific tendinopathy of the right shoulder. RAD/Chest 1 View (Portable) IMPRESSION: No focal consolidations. Reading Location: [facility] CC: Dr. Narinder Crum MD; Dr. Efren Moss MD Automotive Mechanical Engineer: Signed Normal [facility] Chloride assayOrdered By: Margaret Moss on 06-13-2025 Chloride [Moles/Vol] 99 mmol/L 98-108 [facility] Echo Completeon 06-13-2025 Echo Complete [facility] Cardiovascular Services [address] [place] [address] Echo Complete 06/14/25 0745 MR#: [id number] Acct: [id number] Name: RICHIE ARMAS Rep #: [id number] : 1950 75 From: Edil Hong MD [...] 1 diastolic dysfunction. Mid- Anterior : Hypokinetic. [place] : Hypokinetic. Mid-anteroseptal : Hypokinetic. There are [...] Crum MD Performed By: Annette Osullivan RDCS 06/14/251620 Date Edil Hong MD CC: Dr. Hui Morel MD; Dr. Narinder Crum MD; Dr. Thelma Hamm DO Date Dictated: 06/14/25744 Date Transcribed: 06/14/25 162 Automotive Mechanical Engineer: Signed Normal [facility] Emergency Department Summary on 06-13-2025 Emergency Department Summary [facility] Medical Records Department [address] [place] [address] Emergency Department Summary 06/13/25 MR#: [id number] Acct: [id number] Name: PAWELRICHIE Rep #: [id number] : 1950 75 From: Efren Moss MD [...] Negative for Marfan's Syndrome or Family History [facility] Medical History (Updated 06/13/25 @ 19:48 [...] (From Phenergan) AdvReac Other Verified 06/13/25 17:31 Giwhuba-QUY-FbA Reductase AdvReac Pain in Verified 06/13/25 17:31 [...] paroxysmal nocturnal (more content not included)... Normal [facility] Eosinophil percentageOrdered By: Efren Moss on 06-13-2025 Eosinophils/100 WBC (Bld) 0.5 % 0-5 [facility] Erythrocyte distribution wid th ratioOrdered By: Efren Moss on 06-13-2025 Erythrocyte distribution width (RBC) [Ratio] 13.5 % 11.6-14.6 [facility] Erythrocyte distribution wid th standard deviationOrdered By: Efren Moss on 06-13-2025 Erythrocyte distribution width (RBC) [Ratio] 48.6 fl High 35.1-43.9 [facility] Glomerular filtration rate ( GFR) estimation/1.73 sq m using serum, plasma, or whole bOrdered By: Efren Moss on 06-13-2025 GFR/1.73 sq M.predicted among non-blacks MDRD (S/P/Bld) [Vol rate/Area] 89 mL/min/{1.73_m2} >60 [facility] Comment on above: mL/min/1.73m2 CKD-EP I Creatinine Equation (2020) H AND P Exam - [facility] 06-13-2025 H&P Exam - Hospitalist [facility] Medical Records Department [address] [place] [address] H P Exam - Hospitalist 06/13/25 191 MR#: [id number] Acct: [id number] Name: RICHIE ARMAS Rep #: [id number] : 1950 75 From: Hui Morel MD PCP: Dr. Narinder Crum MD Status:ADM IN Location: ICU ICU03-1 HPI - General General Date of Admission: 06/13/25 Date of Service: 06/13/25 Chief Complaint: Chest pain HPI Narrative The patient is a 75 y/o F w/ PMHx: Raynaud disease, HTN, HLD, Hypothyroidism, Fibromyalgia, Chronic idiopathic constipation who presents to the [facility] ED on 06/13/25 with exertional chest [...] noted prior. ED physician discussed case with [employer]. In the ED patient ministered full-strength aspirin therapy, heparin bolus and drip in addition to sublingual nitroglycerin eventually transition to a nitroglycerin drip as well as morphine 4 mg IV x 1. [facility] Medical History (Updated 06/13/25 @ 19:48 [...] (From Phenergan) AdvReac Other Verified 06/13/25 17:31 Eteldqb-MKH-XaY Reductase AdvReac Pain in Verified 06/13/25 17:31 [...] History o (more content not included)... Normal [facility] Hematocrit Auto (Bld) [Volum e fraction]Ordered By: Efren Moss on 06-13-2025 Hematocrit (Bld) [Volume fraction] 39.1 % 37-47 [facility] Hemoglobin measurementOrdere d By: Efren Rodriguezo on 06-13-2025 Hemoglobin (Bld) [Mass/Vol] 12.7 g/dL 12.0-15.0 [facility] Immature granulocytes/100 WB C Auto (Bld)Ordered By: Efren Moss on 06-13-2025 Immature granulocytes/100 WBC (Bld) 0.200 % 0.0-0.9 [facility] Comment on above: IG% - Immature Granu locytes (promyelocytes, myelocytes and metamyelocytes) > 1% indicates that a LEFT SHIFT is Present. International normalized rat io (INR) calculationOrdered By: Efrenconrado Moss on 06-13-2025 INR Coag (Bld) [Relative time] 1.2 {INR} [facility] L501.4021on 06-13-2025 Trop T High Sen 93 ng/L Invalid Interpretation Code <=14 [facility] Comment on above: Result Comment: Crit ical Result(s) Called at: 1847 TO Edward CORTES by:??Barbara NIXON. Results read back by same. Performed By: #### L 500.2500, L501.4021, L100.0100 #### [facility] [address] [place], [address] MCV (mean corpuscular volume ) determinationOrdered By: Efren Moss on 06-13-2025 MCV (RBC) [Entitic vol] 96.5 fL 81-99 [facility] Magnesiumon 06-13-2025 Magnesium [Mass/Vol] 2.0 mg/dL Normal 1.5-2.2 [facility] Comment on above: Order Comment: Comme nts: may add to ED labs Performed By: #### L 500.2500, L501.4021, L100.0100 #### [facility] [address] [place], [address] Magnesium measurement (mass/ volume)Ordered By: Hui Morel on 06-13-2025 Magnesium (Unsp spec) [Mass/Vol] 2.0 mg/dL 1.5-2.2 [facility] Mean corpuscular hemoglobin (MCH) determinationOrdered By: [facility] on 06-13-2025 MCH (RBC) [Entitic mass] 31.4 pg 27.0-32.0 [facility] Mean corpuscular hemoglobin concentration (MCHC) determinationOrdered By: [facility] on 06-13-2025 MCHC (RBC) [Mass/Vol] 32.5 g/dL 32-36 [facility] Mean platelet volume determi nationOrdered By: [facility] on 06-13-2025 Platelet mean volume (Bld) [Entitic vol] 10.4 fL 6.2-12.0 [facility] Monocyte percentageOrdered B y: [facility] on 06-13-2025 Monocytes/100 WBC (Bld) 9.0 % 0-10 [facility] Neutrophil percentageOrdered By: [facility] on 06-13-2025 Neutrophils/100 WBC (Bld) 55.8 % 47-70 [facility] Nucleated red blood cell per centageOrdered By: [facility] on 06-13-2025 Nucleated RBC/100 WBC (Bld) [Ratio] 0 % 0-5 [facility] Partial Thromboplast Timeon 06-13-2025 aPTT Coag (Bld) [Time] 27.1 s Normal 24.1-36.2 [facility] Comment on above: Order Comment: Comme nts: If not done in prior 24 hours Performed By: #### L 500.2500, L501.4021, L100.0100 #### [facility] [address] [facility] [address] [place], [place], [address] Platelet countOrdered By: [facility] on 06-13-2025 Platelets (Bld) [#/Vol] 241 10*3/uL 150-450 [facility] Potassium measurement (mass/ volume)Ordered By: [facility] on 06-13-2025 Potassium (Unsp spec) [Mass/Vol] 4.4 mmol/L 3.3-5.1 [facility] Prothrombin Time w/INRon INR Coag (PPP) [Relative time] 1.2 {INR} Normal [facility] Comment on above: Order Comment: Comme nts: If not done in prior 24 hours Performed By: #### L 500.2500, L501.4021, L100.0100 #### [facility] [address] [place], [address] Prothrombin timeOrdered By: Efren Moss on 06-13-2025 PT Coag (PPP) [Time] 15.2 s High 11.7-14.9 [facility] Comment on above: Order Comment: Comme nts: If not done in prior 24 hours Performed By: #### L 500.2500, L501.4021, L100.0100 #### [facility] [address] [place], [address] RBC Auto (Bld) [#/Vol]Ordere d By: Efren Moss on 06-13-2025 RBC (Bld) [#/Vol] 4.05 10*6/uL Low 4.2-5.4 [facility] Serum creatinine measurement (mass/volume)Ordered By: Efren Moss on 06-13-2025 Creatinine [Mass/Vol] 0.71 mg/dL 0.70-1.20 [facility] Serum glucose measurement (m ass/volume)Ordered By: Efren Moss on 06-13-2025 Glucose [Mass/Vol] 112 mg/dL High 70-99 [facility] Serum or plasma calcium jill urement (mass/volume)Ordered By: Efren Moss on 06-13-2025 Calcium [Mass/Vol] 9.4 mg/dL 7.6-11.0 [facility] Serum or plasma urea nitroge n measurement (mass/volume)Ordered By: Efren Moss on 06-13-2025 Urea nitrogen [Mass/Vol] 23 mg/dL High 4-19 [facility] Sodium levelOrdered By: Efren Moss on 06-13-2025 Sodium [Moles/Vol] 136 mmol/L 133-145 [facility] Troponin T.cardiac [Mass/vol ume] in Serum or Plasma by High sensitivity methodOrdered By: Efren Moss on 06-13-2025 Troponin T.cardiac High sensitivity method [Mass/Vol] 88 ng/L High <14 [facility] Comment on above: Hemolysis present, R esults could be affected. Critical Result(s) Called at: by: Results read back by same.CRITICAL VALUE CALLED TO [id number]/25/25 0005 Maxim R Izabela.RESULTS READ BACK BY SAME. Previous reported result: 88 ng/LEdited by: MIRNA on 06/14/25:0005 AMENDED REPORT 06/14/25 0005 Trop T HS 2HR previously reported as: 88 *H ng/L Hemolysis present, Results could be affected. Critical Result(s) Called at: by: Results read back by same. Troponin T.cardiac High sensitivity method [Mass/Vol] 93 ng/L High <14 [facility] Comment on above: Critical Result(s) C alled at: 1847 TO Edward CORTES by: Barbara NIXON. Results read back by same. White blood cell (WBC) count Ordered By: Efren Moss on 06-13-2025 WBC (Bld) [#/Vol] 5.7 10*3/uL 4.4-11.0 [facility] Calprotectin, Stoolon [address] 146 ug/g Abnormal 0-120 [facility] Comment on above: Result Comment: Conc entration Interpretation Follow-Up < 5 - 50 ug/g Normal None >50 -120 ug/g Borderline Re-evaluate in 4-6 weeks >120 ug/g Abnormal Repeat as clinically indicated Performed at: - [address] [id number] Line Mechanic: Franklin Pena MD, Phone: [phone] Performed By: #### L 500.2500, L501.4021, L100.0100 #### [facility] Laboratory [address] [place], [place], [id number] [employer] Decub and/or Erecton 03-15-2025 [employer] Decub and/or Erect [facility] Imaging Services [address] [place], [place] [id number] [employer] Decub and/or Erect MR#: [id number] Acct: [id number] Name: RICHIE ARMAS Rep #: [id number] : 1950 F 74 From: Thelma Al MD PCP: Dr. Narinder Crum MD Status: REG CLI Study: [employer] Decub and/or Erect Date of Exam: 03/15 Exam# [id number] Ordering Dr: KRYSTEN MARIE EXAM: XR Abdomen, [...] the colon consistent with constipation. Reading Location: [id number] CC: KRYSTEN MARIE; Dr. Narinder Crum MD Automotive Mechanical Engineer: Signed Normal [facility] Calprotectin stoolon 025 Calprotectin stool 146 ug/g High 0-120 [facility] Comment on above: Concentration Interp retation Follow-Up< 5 - 50 ug/g Normal None>50 -120 ug/g Borderline Re-evaluate in 4-6 weeks >120 ug/g Abnormal Repeat as clinically indicatedPerformed at: [facility] [address] [id number] Director: Franklin Pena MD, Phone: [phone] Stool Calprotectin 146 ug/g High 0-120 [facility] Comment on above: Concentration Interp retation Follow-Up< 5 - 50 ug/g Normal None>50 -120 ug/g Borderline Re-evaluate in 4-6 weeks >120 ug/g Abnormal Repeat as clinically indicatedPerformed at: [facility] [address] [id number] Director: Franklin Pena MD, Phone: [phone] Cerv Spine 4 or 5 Viewson Cerv Spine 4 or 5 Views [facility] Imaging Services [address] [place] [address] Cerv Spine 4 or 5 Views MR#: [id number] Acct: [id number] Name: RICHIE ARMAS Rep #: [id number] : 1950 F 74 From: Lennox og MD PCP: Dr. Narinder Crum MD Status: DEP AMB Study: Cerv Spine 4 or 5 Views Date of Exam: 01/25/25 Exam# [id number] Ordering Dr: Ruthann Baltazar PROCEDURE: CERV SPINE [...] reduced on the extension views. Reading Location: [id number] CC: BRAYDEN Wray; Dr. Narinder Crum MD Automotive Mechanical Engineer: Signed Normal [facility] Orthopedic Visit Reporton Orthopedic Visit Report [facility] [address] [place] [address] OFFICE VISIT Date of Service: 01/25/25 MR#: [id number] Acct: [id number] Name: RICHIE ARMAS Rep #: [id number] : 1950 Provider: BRAYDEN Wray Age/Sex: 74/F Location: [facility]JAN Status: Signed Intake Vital Signs 12/20/23 14:08 [...] Phenergan) Adverse Reaction (Verified 01/25/25 13:09) Other Toweekv-KYV-GxZ Reductase Inhibitor Adverse Reaction (Verified 01/25/25 13:09) [...] you fallen in the past year?: Yes [facility] Medical History Raynaud disease Fibromyalgia Cataract Oral thrush Suprapubic abdominal pain High cholesterol Hypothyroidism Surgical History Previous back surgery H/O wrist surgery History of ankle surgery H/O shoulder surgery Social History Smoking Status: Unknown if ever smoked HPI CERVICAL SPINE Details: This documentation accurately reflects the service provided and the decisions made by , BRAYDEN Wray 01/25/25 7413. Part of today???s visit was documented by [...] which was (more content not included)... Normal [facility] Bone density reportOrdered B y: Lennox Ellington on 11-02-2024 Study report Skeletal system DXA [facility] Imaging Services [address] [place] [address] Dexa Bone Density Study MR#: [id number] Acct: [id number] Name: RICHIE ARMSA Rep #: [id number] : 1950 F 74 From: Clinton Ellington MD PCP: Dr. Narinder Crum MD Status: [facility] Study:Dexa Bone Density Study Date of Exam: 10/30/24 Exam# [id number] Ordering Dr: Yandel Tracy BRAIN WAVE TECHNICIAN-C [id number] STUDY: DUAL ENERGY X-RAY ABSORPTIOMETRY / DXA [...] Dr. Narinder Crum MD; Annette Tracy ~ Automotive Mechanical Engineer: Signed [facility] Breast imaging reportOrdered By: Lennox Ellington on 10-30-2024 Study report [facility] Imaging Services [address] [place], [place] [address] SCRN MAMM (CAD)W/KAMERON BILAT MR#: [id number] Acct: [id number] Name: RICHIE ARMAS Rep #: [id number] : 1950 F 74 From: Clinton Ellington MD PCP: Dr. Narinder Crum MD Status: [facility] Study:SCRN MAMM (CAD)W/KAMERON BILAT Date of Exa m: 10/30/24 Exam# [id number] Ordering Dr: Yandel Tracy BRAIN WAVE TECHNICIAN-C [id number] MAMMOGRAPHY - BILATERAL SCREENING REASON FOR EXAM: [...] delay biopsy of a clinically suspicious abnormality. [id number] Electronically Signed: Lennox Ellington MD at 13:40 EST , CC: Dr. Narinder Crum MD; Annette Tracy ~ Automotive Mechanical Engineer: Signed [facility] Dexa Bone Density Studyon Dexa Bone Density Study [facility] Imaging Services [address] [place], [place] [address] Dexa Bone Density Study MR#: [id number] Acct: [id number] Name: RICHIE ARMAS Rep #: [id number] : 1950 F 74 From: Lennox og MD PCP: Dr. Narinder Crum MD Status: [facility] Study: Dexa Bone Density Study Date of Exam: 10/30/24 Exam# [id number] Ordering Dr: [place] [id number] STUDY: DUAL ENERGY X-RAY ABSORPTIOMETRY / DXA [...] CC: Dr. Narinder Crum MD; Annette Tracy Automotive Mechanical Engineer: Signed Normal [facility] SCRN MAMM (CAD)W/KAMERON BILATo n 10-30-2024 SCRN MAMM (CAD)W/KAMERON BILAT [facility] Imaging Services [address] [place], [place] [address] SCRN MAMM (CAD)W/KAMERON BILAT MR#: [id number] Acct: [id number] Name: RICHIE ARMAS Rep #: [id number] : 1950 F 74 From: Lennox og MD PCP: Dr. Narinder Crum MD Status: [facility] Study: SCRN MAMM (CAD)W/KAMERON BILAT Date of Exam: 10/21 Exam# [id number] Ordering Dr: Annette Tracy BRAIN WAVE TECHNICIAN -C [id number] MAMMOGRAPHY - BILATERAL SCREENING REASON FOR EXAM: [...] delay biopsy of a clinically suspicious abnormality. [id number] Electronically Signed: Lennox Ellington MD at 13:40 EST , CC: Dr. Narinder Crum MD; Annette Tracy Automotive Mechanical Engineer: Signed Normal [facility] No Panel InformationOrdered By: Narinder Crum on 03-05-2024 Free Triiodothyronine (T3) pg/dL 2.0 pg/mL 2.18-3.98 [facility] Serum or plasma thyroid stim ulating hormone (TSH) measurement (units/volume)Ordered By: Narinder Crum on 03-05-2024 TSH Qn 1.85 uIU/mL 0.358-3.74 [facility] Thin prep Papanicolaou smear with manual screeningOrdered By: Narinder Crum on 03-05-2024 Thin prep Papanicolaou smear with manual screening 0.76 ng/dL 0.76-1.46 [facility] Absolute lymphocyte countOrd ered By: Dio Martins on 12-20-2023 Lymphocytes Auto (Unsp spec) [#/Vol] 1.54 10*3/uL 0.83-4.51 [facility] Automated lymphocyte count a s percentage of total leukocytesOrdered By: Dio Martins on 12-20-2023 Lymphocytes/100 WBC Auto (Unsp spec) 26.2 % 19-41 [facility] Basophil percentageOrdered B y: Dio Martins on 12-20-2023 Basophils/100 WBC (Bld) 0.7 % 0-1 [facility] Bilirubin [Mass/Vol] 0.30 mg/dL 0.20-1.00 [facility] Comment on above: For patients on eltr ombopag therapy, use of Dimension [place] TBIL is not recommended. Chloride [Moles/Vol] 106 mmol/L 98-107 [facility] Eosinophils/100 WBC (Bld) 1.4 % 0-5 [facility] Glucose [Mass/Vol] 119 mg/dL 74-106 [facility] Comment on above: Fasting Glucose resu lt from 100 to 125 mg/dL suggests IMPAIRED HOMEOSTASIS per A.D.A. criteria. Hemoglobin (Bld) [Mass/Vol] 14.4 g/dL 12.0-15.0 [facility] Monocytes/100 WBC (Bld) 7.5 % 0-10 [facility] Neutrophils (Bld) [#/Vol] 3.8 10*3/uL 2.0-7.7 [facility] Neutrophils/100 WBC (Bld) 63.9 % 47-70 [facility] Potassium [Moles/Vol] 4.3 mmol/L 3.5-5.1 [facility] Comment on above: Moderate Hemolysis, Result may be falsely increased. Protein [Mass/Vol] 7.8 g/dL 6.4-8.2 [facility] Sodium [Moles/Vol] 138 mmol/L 136-145 [facility] WBC (Bld) [#/Vol] 5.9 10*3/uL 4.4-11.0 [facility] Determination of erythrocyte mean corpuscular volume (MCV)Ordered By: Dio Martins on 12-20-2023 MCV (RBC) [Entitic vol] 98.1 fL 81-99 [facility] Erythrocyte distribution wid th ratioOrdered By: Dio Martins on 12-20-2023 Erythrocyte distribution width (RBC) [Ratio] 13.5 % 11.6-14.6 [facility] Erythrocyte distribution wid th standard deviationOrdered By: Dio Martins on 12-20-2023 Erythrocyte distribution width (RBC) [Entitic vol] 50.1 fL 35.1-43.9 [facility] Hematocrit Auto (Bld) [Volum e fraction]Ordered By: Dio Martins on 12-20-2023 Hematocrit (Bld) [Volume fraction] 46.7 % 37-47 [facility] Immature granulocytes/100 WB C Auto (Bld)Ordered By: Dio Martins on 12-20-2023 Immature granulocytes/100 WBC (Bld) 0.300 % 0.0-0.9 [facility] Comment on above: IG% - Immature Granu locytes (promyelocytes, myelocytes and metamyelocytes) > 1% indicates that a LEFT SHIFT is Present. Laboratory - Chemistry and C hemistry - challengeOrdered By: Dio Martins on 12-20-2023 Albumin/Globulin [Mass ratio] 1.1 {ratio} 0.9-2.4 [facility] ALP [Catalytic activity/Vol] 55 U/L 45-117 [facility] ALT [Catalytic activity/Vol] 13 U/L 13-56 [facility] CO2 [Moles/Vol] 26.0 mmol/L 21.0-32.0 [facility] Globulin (S) [Mass/Vol] 3.7 g/dL 2.2-4.2 [facility] Urea nitrogen/Creatinine [Mass ratio] 28.0 mg/mg 10-20 [facility] Laboratory - Hematology and Cell countsOrdered By: Dio Martins on 12-20-2023 MCH (RBC) [Entitic mass] 30.3 pg 27.0-32.0 [facility] MCHC (RBC) [Mass/Vol] 30.8 g/dL 32-36 [facility] Nucleated RBC/100 WBC (Bld) [Ratio] 0 % 0-5 [facility] Platelets (Bld) [#/Vol] 186 10*3/uL 150-450 [facility] No Panel InformationOrdered By: Dio Martins on 12-20-2023 Troponin I High Sensitivity 7 pg/mL 3.0-54.0 [facility] Comment on above: Please Note: New Crystal t Units and Gender Specific Reference Ranges. For more information see Policy Stat Procedure [place] High Sensitivity Troponin (TNIH) and attachments. Estimated Creatinine Clearance Calc 62.14 ml/min [facility] Estimated GFR (MDRD) Amer 92 mL/min >60 [facility] Comment on above: GFR Calc Estimated GFR (MDRD) Non-Af Amer 76 mL/min >60 [facility] Comment on above: Non- GFR Calc Platelet mean volume Elver-Ec ker (Bld) [Entitic vol]Ordered By: Dio Martins on 12-20-2023 Platelet mean volume (Bld) [Entitic vol] 11.4 fL 6.2-12.0 [facility] RBC Auto (Bld) [#/Vol]Ordere d By: Dio Martins on 12-20-2023 RBC (Bld) [#/Vol] 4.76 10*6/uL 4.2-5.4 [facility] Serum or plasma calcium jill urement (mass/volume)Ordered By: Dio Martins on 12-20-2023 Calcium [Mass/Vol] 10.0 mg/dL 8.5-10.1 [facility] Serum or plasma creatinine m easurement (mass/volume)Ordered By: Dio Martins on 12-20-2023 Creatinine [Mass/Vol] 0.79 mg/dL 0.55-1.02 [facility] Comment on above: The validity of the calculated GFR & GFRAA in patients over 70 years has not been determined. Clinical correlation is essential. Serum or plasma urea nitroge n measurement (mass/volume)Ordered By: Dio Martins on 12-20-2023 Urea nitrogen [Mass/Vol] 22 mg/dL 7-18 [facility] Thin prep Papanicolaou smear with manual screeningOrdered By: Dio Martins on 12-20-2023 Thin prep Papanicolaou smear with manual screening 4.1 g/dL 3.2-5.0 [facility] Thin prep Papanicolaou smear with manual screening 27 U/L 15-37 [facility] Comment on above: Moderate Hemolysis, Result may be falsely increased. Thin prep Papanicolaou smear with manual screening 6 5-15 [facility] Absolute lymphocyte countOrd ered By: Dr. Crum on 02-08-2023 Lymphocytes Auto (Unsp spec) [#/Vol] 2.70 10*3/uL 0.83-4.51 [facility] Basophil percentageOrdered B y: Dr. Crum on 02-08-2023 Basophils/100 WBC (Bld) 0.7 % 0-1 [facility] Bilirubin [Mass/Vol] 0.30 mg/dL 0.20-1.00 [facility] Comment on above: For patients on eltr ombopag therapy, use of Dimension [place] TBIL is not recommended. Chloride [Moles/Vol] 102 mmol/L 98-107 [facility] Eosinophils/100 WBC (Bld) 2.2 % 0-5 [facility] Glucose [Mass/Vol] 81 mg/dL 74-106 [facility] Neutrophils (Bld) [#/Vol] 2.7 10*3/uL 2.0-7.7 [facility] Neutrophils/100 WBC (Bld) 44.5 % 47-70 [facility] Potassium [Moles/Vol] 4.3 mmol/L 3.5-5.1 [facility] Protein [Mass/Vol] 7.2 g/dL 6.4-8.2 [facility] Sodium [Moles/Vol] 139 mmol/L 136-145 [facility] WBC (Bld) [#/Vol] 6.0 10*3/uL 4.4-11.0 [facility] Blood erythrocytes count (nu mber/volume)Ordered By: Dr. Crum on 02-08-2023 RBC (Bld) [#/Vol] 4.35 10*6/uL 4.2-5.4 [facility] Blood hemoglobin measurement (mass/volume)Ordered By: Dr. Crum on 02-08-2023 Hemoglobin (Bld) [Mass/Vol] 13.5 g/dL 12.0-15.0 [facility] Blood lymphocytes/100 leukoc ytesOrdered By: Dr. Crum on 02-08-2023 Lymphocytes/100 WBC (Bld) 44.8 % 19-41 [facility] Blood monocytes/100 leukocyt esOrdered By: Dr. Crum on 02-08-2023 Monocytes/100 WBC (Bld) 7.6 % 0-10 [facility] Blood platelet mean volumeOr dered By: Dr. Crum on 02-08-2023 Platelet mean volume (Bld) [Entitic vol] 10.9 fL 6.2-12.0 [facility] Determination of erythrocyte mean corpuscular volume (MCV)Ordered By: Dr. Crum on 02-08-2023 MCV (RBC) [Entitic vol] 99.8 fL 81-99 [facility] Hematocrit Auto (Bld) [Volum e fraction]Ordered By: Dr. Crum on 02-08-2023 Hematocrit (Bld) [Volume fraction] 43.4 % 37-47 [facility] Laboratory - Chemistry and C hemistry - challengeOrdered By: Dr. Crum on 02-08-2023 ALP [Catalytic activity/Vol] 51 U/L 45-117 [facility] ALT [Catalytic activity/Vol] 14 U/L 13-56 [facility] CO2 [Moles/Vol] 28.0 mmol/L 21.0-32.0 [facility] Cobalamin (Vitamin B12) [Mass/Vol] 506 pg/mL 211-911 [facility] Free T4 [Mass/Vol] 0.71 ng/dL 0.76-1.46 [facility] Globulin (S) [Mass/Vol] 3.5 g/dL 2.2-4.2 [facility] Urea nitrogen/Creatinine [Mass ratio] 31.6 mg/mg 10-20 [facility] Laboratory - Hematology and Cell countsOrdered By: Dr. Crum on 02-08-2023 Erythrocyte distribution width (RBC) [Entitic vol] 49.5 fL 35.1-43.9 [facility] Erythrocyte distribution width (RBC) [Ratio] 13.4 % 11.6-14.6 [facility] Immature granulocytes/100 WBC (Bld) 0.200 % 0.0-0.9 [facility] Comment on above: IG% - Immature Granu locytes (promyelocytes, myelocytes and metamyelocytes) > 1% indicates that a LEFT SHIFT is Present. MCH (RBC) [Entitic mass] 31.0 pg 27.0-32.0 [facility] Nucleated RBC/100 WBC (Bld) [Ratio] 0 % 0-5 [facility] MCHC Auto (RBC) [Mass/Vol]Or dered By: Dr. Crum on 02-08-2023 MCHC (RBC) [Mass/Vol] 31.1 g/dL 32-36 [facility] No Panel InformationOrdered By: Dr. Crum on 02-08-2023 Estimated GFR (MDRD) Amer 101 mL/min >60 [facility] Comment on above: GFR Calc Estimated GFR (MDRD) Non-Af Amer 84 mL/min >60 [facility] Comment on above: Non- GFR Calc Free Triiodothyronine (T3) pg/dL 1.9 pg/mL 2.18-3.98 [facility] Thyroid Stimulating Hormone (TSH) 3.71 uIU/mL 0.358-3.74 [facility] Vitamin D 25-Hydroxy 30.5 ng/mL [facility] Comment on above: Vitamin D 25(OH) Sta tus Range Deficiency <20 ng/mL (50nmol/L) Insufficiency 20 - 30 ng/mL (50 - 75 nmol/L) Sufficiency 30 - 100 ng/mL (75 - 250 nmol/L) Toxicity >100 ng/mL (>250 nmol/L) Platelets bldOrdered By: Dr. Crum on 02-08-2023 Platelets (Bld) [#/Vol] 254 10*3/uL 150-450 [facility] Serum or plasma albumin jill urement (mass/volume)Ordered By: Dr. Crum on 02-08-2023 Albumin [Mass/Vol] 3.7 g/dL 3.2-5.0 [facility] Serum or plasma albumin/glob ulin mass ratioOrdered By: Dr. Crum on 02-08-2023 Albumin/Globulin [Mass ratio] 1.1 {ratio} 0.9-2.4 [facility] Serum or plasma calcium jill urement (mass/volume)Ordered By: Dr. Crum on 02-08-2023 Calcium [Mass/Vol] 8.9 mg/dL 8.5-10.1 [facility] Serum or plasma creatinine m easurement (mass/volume)Ordered By: Dr. Crum on 02-08-2023 Creatinine [Mass/Vol] 0.73 mg/dL 0.55-1.02 [facility] Comment on above: The validity of the calculated GFR & GFRAA in patients over 70 years has not been determined. Clinical correlation is essential. Serum or plasma folate measu rement (mass/volume)Ordered By: Dr. Crum on 02-08-2023 Folate [Mass/Vol] 4.70 ng/mL 3.1-55.4 [facility] Serum or plasma urea nitroge n measurement (mass/volume)Ordered By: Dr. Crum on 02-08-2023 Urea nitrogen [Mass/Vol] 23 mg/dL 7-18 [facility] Thin prep Papanicolaou smear with manual screeningOrdered By: Dr. Crum on 02-08-2023 Thin prep Papanicolaou smear with manual screening 28 U/L 15-37 [facility] Thin prep Papanicolaou smear with manual screening 9 5-15 [facility] Absolute lymphocyte counton 09-05-2022 Lymphocytes Auto (Unsp spec) [#/Vol] 2.39 10*3/uL 0.83-4.51 [facility] Work Phone: Basophil percentageon 2021 Basophils/100 WBC (Bld) 0.7 % 0-1 [facility] Work Phone: Chloride [Moles/Vol] 102 mmol/L 98-107 [facility] Work Phone: Eosinophils/100 WBC (Bld) 1.0 % 0-5 [facility] Work Phone: Glucose [Mass/Vol] 97 mg/dL 74-106 [facility] Work Phone: Neutrophils (Bld) [#/Vol] 2.9 10*3/uL 2.0-7.7 [facility] Work Phone: Neutrophils/100 WBC (Bld) 48.9 % 47-70 [facility] Work Phone: Potassium [Moles/Vol] 4.1 mmol/L 3.5-5.1 [facility] Work Phone: Comment on above: Slight Hemolysis, Re sult may be falsely increased. Sodium [Moles/Vol] 137 mmol/L 136-145 [facility] Work Phone: WBC (Bld) [#/Vol] 6.0 10*3/uL 4.4-11.0 [facility] Work Phone: Blood erythrocytes count (nu mber/volume)on 09-05-2022 RBC (Bld) [#/Vol] 4.53 10*6/uL 4.2-5.4 [facility] Work Phone: Blood hemoglobin measurement (mass/volume)on 09-05-2022 Hemoglobin (Bld) [Mass/Vol] 14.1 g/dL 12.0-15.0 [facility] Work Phone: Blood lymphocytes/100 leukoc yteson 09-05-2022 Lymphocytes/100 WBC (Bld) 40.2 % 19-41 [facility] Work Phone: Blood monocytes/100 leukocyt eson 09-05-2022 Monocytes/100 WBC (Bld) 8.9 % 0-10 [facility] Work Phone: Blood platelet mean volumeon 09-05-2022 Platelet mean volume (Bld) [Entitic vol] 10.5 fL 6.2-12.0 [facility] Work Phone: Determination of erythrocyte mean corpuscular volume (MCV)on 09-05-2022 MCV (RBC) [Entitic vol] 97.8 fL 81-99 [facility] Work Phone: Hematocrit Auto (Bld) [Volum e fraction]on 09-05-2022 Hematocrit (Bld) [Volume fraction] 44.3 % 37-47 [facility] Work Phone: Laboratory - Chemistry and C hemistry - challengeon 09-05-2022 CO2 [Moles/Vol] 30.0 mmol/L 21.0-32.0 [facility] Work Phone: Magnesium [Mass/Vol] 2.3 mg/dL 1.6-2.6 [facility] Work Phone: Comment on above: Slight Hemolysis, Re sult may be falsely increased. Urea nitrogen/Creatinine [Mass ratio] 30.0 mg/mg 10-20 [facility] Work Phone: Laboratory - Hematology and Cell countson 09-05-2022 Erythrocyte distribution width (RBC) [Entitic vol] 49.2 fL 35.1-43.9 [facility] Work Phone: Erythrocyte distribution width (RBC) [Ratio] 13.7 % 11.6-14.6 [facility] Work Phone: Immature granulocytes/100 WBC (Bld) 0.300 % 0.0-0.9 [facility] Work Phone: [phone] Comment on above: IG% - Immature Granu locytes (promyelocytes, myelocytes and metamyelocytes) > 1% indicates that a LEFT SHIFT is Present. MCH (RBC) [Entitic mass] 31.1 pg 27.0-32.0 [facility] Work Phone: [phone] Nucleated RBC/100 WBC (Bld) [Ratio] 0 % 0-5 [facility] Work Phone: [phone] MCHC Auto (RBC) [Mass/Vol]on 09-05-2022 MCHC (RBC) [Mass/Vol] 31.8 g/dL 32-36 [facility] Work Phone: No Panel Informationon 09-05 Estimated Creatinine Clearance Calc 42.68 ml/min [facility] Work Phone: [phone] Estimated GFR (MDRD) Amer 106 mL/min >60 [facility] Work Phone: Comment on above: GFR Calc Estimated GFR (MDRD) Non-Af Amer 88 mL/min >60 [facility] Work Phone: Comment on above: Non- GFR Calc Thyroid Stimulating Hormone (TSH) 5.03 uIU/mL 0.358-3.74 [facility] Work Phone: [phone] Troponin I High Sensitivity 6 pg/mL 3.0-54.0 [facility] Work Phone: [phone] Comment on above: Please Note: New Crystal t Units and Gender Specific Reference Ranges. For more information see Policy Stat Procedure [place] High Sensitivity Troponin (TNIH) and attachments. Platelets bldon 09-05-2022 Platelets (Bld) [#/Vol] 245 10*3/uL 150-450 [facility] Work Phone: [phone] Serum or plasma calcium jill urement (mass/volume)on 09-05-2022 Calcium [Mass/Vol] 9.3 mg/dL 8.5-10.1 [facility] Work Phone: Serum or plasma creatinine m easurement (mass/volume)on 09-05-2022 Creatinine [Mass/Vol] 0.70 mg/dL 0.55-1.02 [facility] Work Phone: Comment on above: The validity of the calculated GFR & GFRAA in patients over 70 years has not been determined. Clinical correlation is essential. Serum or plasma urea nitroge n measurement (mass/volume)on 09-05-2022 Urea nitrogen [Mass/Vol] 21 mg/dL 7-18 [facility] Work Phone: Thin prep Papanicolaou smear with manual screeningon 09-05-2022 Thin prep Papanicolaou smear with manual screening 5 -15 [facility] Work Phone: Absolute lymphocyte counton 08-18-2022 Lymphocytes Auto (Unsp spec) [#/Vol] 1.78 10*3/uL 0.83-4.51 [facility] Work Phone: Basophil percentageon 2021 Basophils/100 WBC (Bld) 0.7 % 0-1 [facility] Work Phone: [phone] Bilirubin [Mass/Vol] 0.40 mg/dL 0.20-1.00 [facility] Work Phone: Comment on above: For patients on eltr ombopag therapy, use of Dimension [place] TBIL is not recommended. Chloride [Moles/Vol] 101 mmol/L 98-107 [facility] Work Phone: [phone] Cholesterol [Mass/Vol] 344 mg/dL <200 [facility] Work Phone: [phone] Comment on above: <200 mg/dL Desirable 200-240 mg/dL Borderline >240 mg/dL High Risk Eosinophils/100 WBC (Bld) 1.6 % 0-5 [facility] Work Phone: [phone] Glucose [Mass/Vol] 98 mg/dL 74-106 [facility] Work Phone: [phone] Neutrophils (Bld) [#/Vol] 2.0 10*3/uL 2.0-7.7 [facility] Work Phone: Neutrophils/100 WBC (Bld) 47.5 % 47-70 [facility] Work Phone: [phone] Potassium [Moles/Vol] 4.1 mmol/L 3.5-5.1 [facility] Work Phone: Protein [Mass/Vol] 7.3 g/dL 6.4-8.2 [facility] Work Phone: [phone] Sodium [Moles/Vol] 137 mmol/L 136-145 [facility] Work Phone: Triglyceride [Mass/Vol] 178 mg/dL <199 [facility] Work Phone: [phone] Comment on above: The drugs N-Acetylcy steine and Metamizole may falsely depress this assay.Serum Triglycerides Reference Interval Normal <150 mg/dL Borderline high 150 - 199 mg/dL High 200 - 499 mg/dL Very High > or = 500 mg/dL WBC (Bld) [#/Vol] 4.3 10*3/uL 4.4-11.0 [facility] Work Phone: Blood erythrocytes count (nu mber/volume)on 08-18-2022 RBC (Bld) [#/Vol] 4.34 10*6/uL 4.2-5.4 [facility] Work Phone: [phone] Blood hemoglobin measurement (mass/volume)on 08-18-2022 Hemoglobin (Bld) [Mass/Vol] 13.6 g/dL 12.0-15.0 [facility] Work Phone: Blood lymphocytes/100 leukoc yteson 08-18-2022 Lymphocytes/100 WBC (Bld) 41.4 % 19-41 [facility] Work Phone: Blood monocytes/100 leukocyt eson 08-18-2022 Monocytes/100 WBC (Bld) 8.8 % 0-10 [facility] Work Phone: Blood platelet mean volumeon 08-18-2022 Platelet mean volume (Bld) [Entitic vol] 10.8 fL 6.2-12.0 [facility] Work Phone: [phone] Determination of erythrocyte mean corpuscular volume (MCV)on 08-18-2022 MCV (RBC) [Entitic vol] 98.4 fL 81-99 [facility] Work Phone: [phone] Hematocrit Auto (Bld) [Volum e fraction]on 08-18-2022 Hematocrit (Bld) [Volume fraction] 42.7 % 37-47 [facility] Work Phone: [phone] Laboratory - Chemistry and C hemistry - challengeon 08-18-2022 ALP [Catalytic activity/Vol] 79 U/L 45-117 [facility] Work Phone: [phone] ALT [Catalytic activity/Vol] 12 U/L 13-56 [facility] Work Phone: [phone] CO2 [Moles/Vol] 31.0 mmol/L 21.0-32.0 [facility] Work Phone: [phone] Globulin (S) [Mass/Vol] 3.6 g/dL 2.2-4.2 [facility] Work Phone: [phone] Urea nitrogen/Creatinine [Mass ratio] 22.6 mg/mg 10-20 [facility] Work Phone: [phone] Laboratory - Hematology and Cell countson 08-18-2022 Erythrocyte distribution width (RBC) [Entitic vol] 48.5 fL 35.1-43.9 [facility] Work Phone: [phone] Erythrocyte distribution width (RBC) [Ratio] 13.3 % 11.6-14.6 [facility] Work Phone: [phone] Immature granulocytes/100 WBC (Bld) 0.000 % 0.0-0.9 [facility] Work Phone: [phone] Comment on above: IG% - Immature Granu locytes (promyelocytes, myelocytes and metamyelocytes) > 1% indicates that a LEFT SHIFT is Present. MCH (RBC) [Entitic mass] 31.3 pg 27.0-32.0 [facility] Work Phone: Nucleated RBC/100 WBC (Bld) [Ratio] 0 % 0-5 [facility] Work Phone: MCHC Auto (RBC) [Mass/Vol]on 08-18-2022 MCHC (RBC) [Mass/Vol] 31.9 g/dL 32-36 [facility] Work Phone: No Panel Informationon 08-18 Estimated GFR (MDRD) Amer 98 mL/min >60 [facility] Work Phone: Comment on above: GFR Calc Estimated GFR (MDRD) Non-Af Amer 81 mL/min >60 [facility] Work Phone: Comment on above: Non- GFR Calc Vitamin D 25-Hydroxy 32.3 ng/mL [facility] Work Phone: Comment on above: Vitamin D 25(OH) Sta tus Range Deficiency <20 ng/mL (50nmol/L) Insufficiency 20 - 30 ng/mL (50 - 75 nmol/L) Sufficiency 30 - 100 ng/mL (75 - 250 nmol/L) Toxicity >100 ng/mL (>250 nmol/L) Platelets bldon 08-18-2022 Platelets (Bld) [#/Vol] 236 10*3/uL 150-450 [facility] Work Phone: [phone] Serum or plasma albumin jill urement (mass/volume)on 08-18-2022 Albumin [Mass/Vol] 3.7 g/dL 3.2-5.0 [facility] Work Phone: Serum or plasma albumin/glob ulin mass ratioon 08-18-2022 Albumin/Globulin [Mass ratio] 1.0 {ratio} 0.9-2.4 [facility] Work Phone: [phone] Serum or plasma calcium ijll urement (mass/volume)on 08-18-2022 Calcium [Mass/Vol] 9.2 mg/dL 8.5-10.1 [facility] Work Phone: [phone] Serum or plasma cholesterol in HDL measurement (mass/volume)on 08-18-2022 Cholesterol in HDL [Mass/Vol] 105 mg/dL >40 [facility] Work Phone: Comment on above: The drugs N-Acetylcy steine and Metamizole may falsely depress this assay. Reference Range HDL <40 mg/dL Low HDL Cholesterol HDL >or= 60 mg/dL High HDL Cholesterol Serum or plasma cholesterol in VLDL measurement (mass/volume)on 08-18-2022 Cholesterol in VLDL [Mass/Vol] 36 mg/dL 5-40 [facility] Work Phone: [phone] Serum or plasma creatinine m easurement (mass/volume)on 08-18-2022 Creatinine [Mass/Vol] 0.75 mg/dL 0.55-1.02 [facility] Work Phone: Comment on above: The validity of the calculated GFR & GFRAA in patients over 70 years has not been determined. Clinical correlation is essential. Serum or plasma low density lipoprotein (LDL) cholesterol measurement (mass/volume)on 08-18-2022 Cholesterol in LDL [Mass/Vol] 203 mg/dL 0-130 [facility] Work Phone: [phone] Serum or plasma urea nitroge n measurement (mass/volume)on 08-18-2022 Urea nitrogen [Mass/Vol] 17 mg/dL 7-18 [facility] Work Phone: [phone] Thin prep Papanicolaou smear with manual screeningon 08-18-2022 Thin prep Papanicolaou smear with manual screening 27 U/L 15-37 [facility] Work Phone: [phone] Thin prep Papanicolaou smear with manual screening 5 5-15 [facility] Work Phone: [phone] Laboratory - Chemistry and C hemistry - challengeon 06-15-2022 T4 [Mass/Vol] 6.7 ug/dL 4.8-13.9 [facility] Work Phone: [phone] No Panel Informationon 06-15 Thyroid Stimulating Hormone (TSH) 3.26 uIU/mL 0.358-3.74 [facility] Work Phone: [phone] Laboratory - Chemistry and C hemistry - challengeon 03-17-2022 Free T4 [Mass/Vol] 0.96 ng/dL 0.76-1.46 [facility] Work Phone: No Panel Informationon 03-17 Free Triiodothyronine (T3) pg/dL 2.3 pg/mL 2.18-3.98 [facility] Work Phone: Thyroid Stimulating Hormone (TSH) 0.16 uIU/mL 0.358-3.74 [facility] Work Phone: CV VENOUS LEG RTon 2 CV VENOUS LEG RT [place] [id number] [place] [address] Patient: RICHIE ARMAS Phone#: : 1950 Age: 71 Gender: F Pt. Type: Out Account: [id number] Location: 052 Ordering: CHERY SUMMERS Exam Date: 03/04/202213:22 Family Phys: NARINDER CRUM Charge Code: [id number] Physician: Arthur Order #: [id number] DLP Dose#: PROCEDURE: VENOUS DOPPLER RT LEG COMPARISON: None. INDICATIONS: Pain TECHNIQUE: Color duplex Doppler ultrasound evaluation analysis was performed in the usual manner. INSPECTION ENGINEER: SIA RISK FACTORS FOR VENOUS DISEASE: LE [...] PERONEAL V + GSV GASTROC SOLEAL V INSPECTION ENGINEER'S NOTES: Nonvascular structure noted behind the knee Continued Report - Page 2 of 2 Patient: RICHIE ARMAS Phone#: : 1950 Age: 71 Gender: F Pt. Type: Out Account: [id number] Location: 052 Ordering: CHERY SUMMERS Exam Date: 03/04/2022/13:22 Family Phys: NARINDER CRUM Charge Code: [id number] Physician: Arthur Order #: [id number] DLP Dose#: FINDINGS: THROMBI: None visible. COMPRESSIBILITY: Normal. OTHER: Popliteal cyst is present. CONCLUSION: 1. There is no evidence of superficial or deep vein thrombus. Dictated by: Carrie Gooden MD on 03/04/2022 at 13:53 Approved by: Carrie Gooden MD on 03/04/2022 at 13:55 Normal [facility] EMERGENCY REPORTon 2 EMERGENCY REPORT [facility] EMERGENCY ROOM REPORT NAME ACCOUNT SEX AGE ADMIT DISCHARGE PT MED. RECORD# NUMBER DATE DATE TYPE PAWEL [id number] F 71 02/18/22 02/18/22 3 RICHIE [id number] ROOM: ER DATE OF : 1950 DICTATING [...] Jace Mathews MD 02/18/22 10:51 JOB #: [id number] Transcribed By: sisi 02/19/22 08:41 Electronically signed by: KOFFI Mathews M.D. 02/26/22 07:33 Page 2 of 2 RICHIE ARMAS Emergency Room Report Normal [facility] ANKLE COMPLETE RTon 02-19-20 ANKLE COMPLETE RT [place] [address] Patient: RICHIE ARMAS Phone#: : 1950 Age: 71 Gender: F Pt. Type: ER Account: [id number] Location: [facility] Ordering: JACE MATHEWS Exam Date: 02/18/2022/10:24 Family Phys: NARINDER CRUM Charge Code: [id number] Physician: Arthur Order #: [id number] DLP Dose#: PROCEDURE: X-RAY ANKLE COMPLETE RT [...] Cardenas MD on 02/18/2022 at 10:45 Normal [facility] MR KNEE W/O LTon 02-04-2022 MR KNEE W/O LT [address] [address] Patient: RICHIE ARMAS Phone#: : 1950 Age: 71 Gender: F Pt. Type: Out Account: [id number] Location: Ordering: BRANDON SEXTON Exam Date: 02/04/2022/13:09 Family Phys: Charge Code: [id number] Physician: Arthur Order #: [id number] DLP Dose#: PROCEDURE: MRI KNEE LT WITHOUT [...] 71 Gender: F Pt. Type: Out Account: [id number] Location: Ordering: BRANDON SEXTON Exam Date: 02/04/2022/13:09 Family Phys: Charge Code: [id number] Physician: Arthur Order #: [id number] DLP Dose#: CONCLUSION: 1. Lateral meniscus posterior horn root attachment partial tear 2. Cartilage fissuring of the lateral tibial plateau and cartilage thinning medial patella facet 3. Partial ACL tear at the tibial attachment 4. Large ganglion posterior to the medial meniscus Dictated by: Farzaneh Cardenas MD on 02/08/2022 at 20:39 Approved by: Farzaneh Cardenas MD on 02/08/2022 at 20:50 Normal [facility] Absolute lymphocyte counton 12-21-2021 Lymphocytes Auto (Unsp spec) [#/Vol] 2.49 10*3/uL 0.83-4.51 [facility] Work Phone: Basophil percentageon 2021 Basophils/100 WBC (Bld) 0.7 % 0-1 [facility] Work Phone: Bilirubin [Mass/Vol] 0.30 mg/dL 0.20-1.00 [facility] Work Phone: Comment on above: For patients on eltr ombopag therapy, use of Dimension [place] TBIL is not recommended. Chloride [Moles/Vol] 104 mmol/L 98-107 [facility] Work Phone: Eosinophils/100 WBC (Bld) 1.5 % 0-5 [facility] Work Phone: Glucose [Mass/Vol] 86 mg/dL 74-106 [facility] Work Phone: Neutrophils (Bld) [#/Vol] 2.9 10*3/uL 2.0-7.7 [facility] Work Phone: Neutrophils/100 WBC (Bld) 46.4 % 47-70 [facility] Work Phone: Potassium [Moles/Vol] 4.0 mmol/L 3.5-5.1 [facility] Work Phone: Protein [Mass/Vol] 7.9 g/dL 6.4-8.2 [facility] Work Phone: [phone] Sodium [Moles/Vol] 138 mmol/L 136-145 [facility] Work Phone: [phone] WBC (Bld) [#/Vol] 6.1 10*3/uL 4.4-11.0 [facility] Work Phone: [phone] Blood erythrocytes count (nu mber/volume)on 12-21-2021 RBC (Bld) [#/Vol] 4.71 10*6/uL 4.2-5.4 [facility] Work Phone: [phone] Blood hemoglobin measurement (mass/volume)on 12-21-2021 Hemoglobin (Bld) [Mass/Vol] 14.3 g/dL 12.0-15.0 [facility] Work Phone: [phone] Blood lymphocytes/100 leukoc yteson 12-21-2021 Lymphocytes/100 WBC (Bld) 40.6 % 19-41 [facility] Work Phone: [phone] Blood monocytes/100 leukocyt eson 12-21-2021 Monocytes/100 WBC (Bld) 10.6 % 0-10 [facility] Work Phone: [phone] Blood platelet mean volumeon 12-21-2021 Platelet mean volume (Bld) [Entitic vol] 10.9 fL 6.2-12.0 [facility] Work Phone: [phone] Determination of erythrocyte mean corpuscular volume (MCV)on 12-21-2021 MCV (RBC) [Entitic vol] 94.7 fL 81-99 [facility] Work Phone: [phone] Giardia lamblia ag stool EIA on 12-21-2021 G. lamblia Ag IA Ql (Stl) Negative Negative [facility] Work Phone: [phone] Comment on above: Performed at: [address] [id number] Director: Emery Hallman PhD, Phone: [phone] Hematocrit Auto (Bld) [Volum e fraction]on 12-21-2021 Hematocrit (Bld) [Volume fraction] 44.6 % 37-47 [facility] Work Phone: [phone] Laboratory - Chemistry and C hemistry - challengeon 12-21-2021 ALP [Catalytic activity/Vol] 96 U/L 45-117 [facility] Work Phone: [phone] ALT [Catalytic activity/Vol] 21 U/L 13-56 [facility] Work Phone: [phone] Amylase [Catalytic activity/Vol] 24 U/L 5-55 [facility] Work Phone: [phone] CO2 [Moles/Vol] 30.0 mmol/L 21.0-32.0 [facility] Work Phone: [phone] Globulin (S) [Mass/Vol] 4.1 g/dL 2.2-4.2 [facility] Work Phone: [phone] Lipase [Catalytic activity/Vol] 62 U/L 73-393 [facility] Work Phone: [phone] Magnesium [Mass/Vol] 2.5 mg/dL 1.6-2.6 [facility] Work Phone: [phone] Urea nitrogen/Creatinine [Mass ratio] 20.9 mg/mg 10-20 [facility] Work Phone: [phone] Laboratory - Hematology and Cell countson 12-21-2021 Erythrocyte distribution width (RBC) [Entitic vol] 45.6 fL 35.1-43.9 [facility] Work Phone: [phone] Erythrocyte distribution width (RBC) [Ratio] 13.0 % 11.6-14.6 [facility] Work Phone: [phone] Immature granulocytes/100 WBC (Bld) 0.200 % 0.0-0.9 [facility] Work Phone: [phone] Comment on above: IG% - Immature Granu locytes (promyelocytes, myelocytes and metamyelocytes) > 1% indicates that a LEFT SHIFT is Present. MCH (RBC) [Entitic mass] 30.4 pg 27.0-32.0 [facility] Work Phone: Nucleated RBC/100 WBC (Bld) [Ratio] 0 % 0-5 [facility] Work Phone: MCHC Auto (RBC) [Mass/Vol]on 12-21-2021 MCHC (RBC) [Mass/Vol] 32.1 g/dL 32-36 [facility] Work Phone: No Panel Informationon 12-21 Anti-Gliadin IgA Antibody 4 units [facility] Work Phone: Comment on above: Negative 0 - 19 Weak Positive 20 - 30 Moderate to Strong Positive >30 Anti-Gliadin IgG Antibody 5 units [facility] Work Phone: Comment on above: Negative 0 - 19 Weak Positive 20 - 30 Moderate to Strong Positive >30 Endomysial IgA Antibody Negative Negative [facility] Work Phone: Estimated GFR (MDRD) Amer 89 mL/min >60 [facility] Work Phone: Comment on above: GFR Calc Estimated GFR (MDRD) Non-Af Amer 74 mL/min >60 [facility] Work Phone: Comment on above: Non- GFR Calc Tissue Transglutaminase IgG Ab 11 U/mL [facility] Work Phone: Comment on above: Negative 0 - 5 Weak Positive 6 - 9 Positive >9 Enteric Bacteriology [facility] Work Phone: Platelets bldon 12-21-2021 Platelets (Bld) [#/Vol] 265 10*3/uL 150-450 [facility] Work Phone: [phone] Serum IgA measurement (units /volume)on 12-21-2021 IgA Qn (S) 130 mg/dL [facility] Work Phone: [phone] Comment on above: Performed at: [address] [id number] Director: Emery Hallman PhD, Phone: [phone] Serum or plasma albumin jill urement (mass/volume)on 12-21-2021 Albumin [Mass/Vol] 3.8 g/dL 3.2-5.0 [facility] Work Phone: [phone] Serum or plasma albumin/glob ulin mass ratioon 12-21-2021 Albumin/Globulin [Mass ratio] 0.9 {ratio} 0.9-2.4 [facility] Work Phone: Serum or plasma calcium jill urement (mass/volume)on 12-21-2021 Calcium [Mass/Vol] 9.4 mg/dL 8.5-10.1 [facility] Work Phone: [phone] Serum or plasma creatinine m easurement (mass/volume)on 12-21-2021 Creatinine [Mass/Vol] 0.82 mg/dL 0.55-1.02 [facility] Work Phone: Comment on above: The validity of the calculated GFR & GFRAA in patients over 70 years has not been determined. Clinical correlation is essential. Serum or plasma urea nitroge n measurement (mass/volume)on 12-21-2021 Urea nitrogen [Mass/Vol] 17 mg/dL 7-18 [facility] Work Phone: Serum tissue transglutaminas e IgA antibody assay (units/volume)on 12-21-2021 tTG IgA Qn (S) <2 U/mL [facility] Work Phone: Comment on above: Negative 0 - 3 Weak Positive 4 - 10 Positive >10 Tissue Transglutaminase (tTG) has been identified as the endomysial antigen. Studies have demonstr- ated that endomysial IgA antibodies have over 99% specificity for gluten sensitive enteropathy. Thin prep Papanicolaou smear with manual screeningon 12-21-2021 Thin prep Papanicolaou smear with manual screening 28 U/L 15-37 [facility] Work Phone: [phone] Thin prep Papanicolaou smear with manual screening 4 5-15 [facility] Work Phone: [phone] Absolute lymphocyte counton 12-14-2021 Lymphocytes Auto (Unsp spec) [#/Vol] 1.16 10*3/uL 0.83-4.51 [facility] Work Phone: Basophil percentageon 2021 Basophils/100 WBC (Bld) 0.5 % 0-1 [facility] Work Phone: Bilirubin [Mass/Vol] 0.20 mg/dL 0.20-1.00 [facility] Work Phone: Comment on above: For patients on eltr ombopag therapy, use of Dimension [place] TBIL is not recommended. Chloride [Moles/Vol] 102 mmol/L 98-107 [facility] Work Phone: Eosinophils/100 WBC (Bld) 0.0 % 0-5 [facility] Work Phone: [phone] Glucose [Mass/Vol] 116 mg/dL 74-106 [facility] Work Phone: Comment on above: Fasting Glucose resu lt from 100 to 125 mg/dL suggests IMPAIRED HOMEOSTASIS per A.D.A. criteria. Neutrophils (Bld) [#/Vol] 5.2 10*3/uL 2.0-7.7 [facility] Work Phone: Neutrophils/100 WBC (Bld) 78.5 % 47-70 [facility] Work Phone: [phone] Potassium [Moles/Vol] 4.7 mmol/L 3.5-5.1 [facility] Work Phone: Protein [Mass/Vol] 7.3 g/dL 6.4-8.2 [facility] Work Phone: [phone] Sodium [Moles/Vol] 139 mmol/L 136-145 [facility] Work Phone: WBC (Bld) [#/Vol] 6.6 10*3/uL 4.4-11.0 [facility] Work Phone: Blood erythrocytes count (nu mber/volume)on 12-14-2021 RBC (Bld) [#/Vol] 4.40 10*6/uL 4.2-5.4 [facility] Work Phone: Blood hemoglobin measurement (mass/volume)on 12-14-2021 Hemoglobin (Bld) [Mass/Vol] 13.5 g/dL 12.0-15.0 [facility] Work Phone: [phone] Blood lymphocytes/100 leukoc yteson 12-14-2021 Lymphocytes/100 WBC (Bld) 17.7 % 19-41 [facility] Work Phone: [phone] Blood monocytes/100 leukocyt eson 12-14-2021 Monocytes/100 WBC (Bld) 3.0 % 0-10 [facility] Work Phone: [phone] Blood platelet mean volumeon 12-14-2021 Platelet mean volume (Bld) [Entitic vol] 11.1 fL 6.2-12.0 [facility] Work Phone: [phone] Determination of erythrocyte mean corpuscular volume (MCV)on 12-14-2021 MCV (RBC) [Entitic vol] 98.0 fL 81-99 [facility] Work Phone: [phone] Hematocrit Auto (Bld) [Volum e fraction]on 12-14-2021 Hematocrit (Bld) [Volume fraction] 43.1 % 37-47 [facility] Work Phone: Laboratory - Chemistry and C hemistry - challengeon 12-14-2021 ALP [Catalytic activity/Vol] 79 U/L 45-117 [facility] Work Phone: [phone] ALT [Catalytic activity/Vol] 15 U/L 13-56 [facility] Work Phone: [phone] CO2 [Moles/Vol] 29.0 mmol/L 21.0-32.0 [facility] Work Phone: [phone] Free T4 [Mass/Vol] 1.10 ng/dL 0.76-1.46 [facility] Work Phone: [phone] Globulin (S) [Mass/Vol] 3.5 g/dL 2.2-4.2 [facility] Work Phone: [phone] Urea nitrogen/Creatinine [Mass ratio] 32.8 mg/mg 10-20 [facility] Work Phone: Laboratory - Hematology and Cell countson 12-14-2021 Erythrocyte distribution width (RBC) [Entitic vol] 48.0 fL 35.1-43.9 [facility] Work Phone: [phone] Erythrocyte distribution width (RBC) [Ratio] 13.3 % 11.6-14.6 [facility] Work Phone: [phone] Immature granulocytes/100 WBC (Bld) 0.300 % 0.0-0.9 [facility] Work Phone: [phone] Comment on above: IG% - Immature Granu locytes (promyelocytes, myelocytes and metamyelocytes) > 1% indicates that a LEFT SHIFT is Present. MCH (RBC) [Entitic mass] 30.7 pg 27.0-32.0 [facility] Work Phone: [phone] Nucleated RBC/100 WBC (Bld) [Ratio] 0 % 0-5 [facility] Work Phone: [phone] MCHC Auto (RBC) [Mass/Vol]on 12-14-2021 MCHC (RBC) [Mass/Vol] 31.3 g/dL 32-36 [facility] Work Phone: [phone] No Panel Informationon 12-14 Estimated GFR (MDRD) Amer 101 mL/min >60 [facility] Work Phone: [phone] Comment on above: GFR Calc Estimated GFR (MDRD) Non-Af Amer 83 mL/min >60 [facility] Work Phone: [phone] Comment on above: Non- GFR Calc Thyroid Stimulating Hormone (TSH) 0.28 uIU/mL 0.358-3.74 [facility] Work Phone: [phone] Platelets bldon 12-14-2021 Platelets (Bld) [#/Vol] 272 10*3/uL 150-450 [facility] Work Phone: [phone] Serum or plasma albumin jill urement (mass/volume)on 12-14-2021 Albumin [Mass/Vol] 3.8 g/dL 3.2-5.0 [facility] Work Phone: [phone] Serum or plasma albumin/glob ulin mass ratioon 12-14-2021 Albumin/Globulin [Mass ratio] 1.1 {ratio} 0.9-2.4 [facility] Work Phone: [phone] Serum or plasma calcium jill urement (mass/volume)on 12-14-2021 Calcium [Mass/Vol] 9.0 mg/dL 8.5-10.1 [facility] Work Phone: [phone] Serum or plasma creatinine m easurement (mass/volume)on 12-14-2021 Creatinine [Mass/Vol] 0.73 mg/dL 0.55-1.02 [facility] Work Phone: [phone] Comment on above: The validity of the calculated GFR & GFRAA in patients over 70 years has not been determined. Clinical correlation is essential. Serum or plasma urea nitroge n measurement (mass/volume)on 12-14-2021 Urea nitrogen [Mass/Vol] 24 mg/dL 7-18 [facility] Work Phone: [phone] Thin prep Papanicolaou smear with manual screeningon 12-14-2021 Thin prep Papanicolaou smear with manual screening 20 U/L 15-37 [facility] Work Phone: [phone] Thin prep Papanicolaou smear with manual screening 8 5-15 [facility] Work Phone: [phone] Absolute lymphocyte counton 12-09-2021 Lymphocytes Auto (Unsp spec) [#/Vol] 1.65 10*3/uL 0.83-4.51 [facility] Work Phone: [phone] Basophil percentageon 2021 Basophils/100 WBC (Bld) 0.7 % 0-1 [facility] Work Phone: [phone] Chloride [Moles/Vol] 103 mmol/L 98-107 [facility] Work Phone: [phone] Eosinophils/100 WBC (Bld) 1.5 % 0-5 [facility] Work Phone: [phone] Glucose [Mass/Vol] 102 mg/dL 74-106 [facility] Work Phone: Comment on above: Fasting Glucose resu lt from 100 to 125 mg/dL suggests IMPAIRED HOMEOSTASIS per A.D.A. criteria. Neutrophils (Bld) [#/Vol] 1.9 10*3/uL 2.0-7.7 [facility] Work Phone: [phone] Neutrophils/100 WBC (Bld) 47.2 % 47-70 [facility] Work Phone: [phone] Potassium [Moles/Vol] 4.2 mmol/L 3.5-5.1 [facility] Work Phone: [phone] Sodium [Moles/Vol] 138 mmol/L 136-145 [facility] Work Phone: [phone] WBC (Bld) [#/Vol] 4.1 10*3/uL 4.4-11.0 [facility] Work Phone: [phone] Blood erythrocytes count (nu mber/volume)on 12-09-2021 RBC (Bld) [#/Vol] 4.35 10*6/uL 4.2-5.4 [facility] Work Phone: [phone] Blood hemoglobin measurement (mass/volume)on 12-09-2021 Hemoglobin (Bld) [Mass/Vol] 13.2 g/dL 12.0-15.0 [facility] Work Phone: [phone] Blood lymphocytes/100 leukoc yteson 12-09-2021 Lymphocytes/100 WBC (Bld) 40.0 % 19-41 [facility] Work Phone: [phone] Blood monocytes/100 leukocyt eson 12-09-2021 Monocytes/100 WBC (Bld) 10.4 % 0-10 [facility] Work Phone: [phone] Blood platelet mean volumeon 12-09-2021 Platelet mean volume (Bld) [Entitic vol] 10.9 fL 6.2-12.0 [facility] Work Phone: [phone] Determination of erythrocyte mean corpuscular volume (MCV)on 12-09-2021 MCV (RBC) [Entitic vol] 94.5 fL 81-99 [facility] Work Phone: Hematocrit Auto (Bld) [Volum e fraction]on 12-09-2021 Hematocrit (Bld) [Volume fraction] 41.1 % 37-47 [facility] Work Phone: [phone] Laboratory - Chemistry and C hemistry - challengeon 12-09-2021 CO2 [Moles/Vol] 30.0 mmol/L 21.0-32.0 [facility] Work Phone: [phone] Urea nitrogen/Creatinine [Mass ratio] 30.8 mg/mg 10-20 [facility] Work Phone: [phone] Laboratory - Hematology and Cell countson 12-09-2021 Erythrocyte distribution width (RBC) [Entitic vol] 46.5 fL 35.1-43.9 [facility] Work Phone: [phone] Erythrocyte distribution width (RBC) [Ratio] 13.2 % 11.6-14.6 [facility] Work Phone: [phone] Immature granulocytes/100 WBC (Bld) 0.200 % 0.0-0.9 [facility] Work Phone: [phone] Comment on above: IG% - Immature Granu locytes (promyelocytes, myelocytes and metamyelocytes) > 1% indicates that a LEFT SHIFT is Present. MCH (RBC) [Entitic mass] 30.3 pg 27.0-32.0 [facility] Work Phone: [phone] Nucleated RBC/100 WBC (Bld) [Ratio] 0 % 0-5 [facility] Work Phone: [phone] MCHC Auto (RBC) [Mass/Vol]on 12-09-2021 MCHC (RBC) [Mass/Vol] 32.1 g/dL 32-36 [facility] Work Phone: [phone] Panel Informationon 12-09 Estimated Creatinine Clearance Calc 43.30 ml/min [facility] Work Phone: [phone] Estimated GFR (MDRD) Amer 94 mL/min >60 [facility] Work Phone: [phone] Comment on above: GFR Calc Estimated GFR (MDRD) Non-Af Amer 78 mL/min >60 [facility] Work Phone: Comment on above: Non- GFR Calc Troponin I High Sensitivity 6 pg/mL 3.0-54.0 [facility] Work Phone: Comment on above: Please Note: New Crystal t Units and Gender Specific Reference Ranges. For more information see Policy Stat Procedure [place] High Sensitivity Troponin (TNIH) and attachments. Platelets bldon 12-09-2021 Platelets (Bld) [#/Vol] 230 10*3/uL 150-450 [facility] Work Phone: Serum or plasma calcium jill urement (mass/volume)on 12-09-2021 Calcium [Mass/Vol] 9.2 mg/dL 8.5-10.1 [facility] Work Phone: Serum or plasma creatinine m easurement (mass/volume)on 12-09-2021 Creatinine [Mass/Vol] 0.78 mg/dL 0.55-1.02 [facility] Work Phone: Comment on above: The validity of the calculated GFR & GFRAA in patients over 70 years has not been determined. Clinical correlation is essential. Serum or plasma urea nitroge n measurement (mass/volume)on 12-09-2021 Urea nitrogen [Mass/Vol] 24 mg/dL 7-18 [facility] Work Phone: Thin prep Papanicolaou smear with manual screeningon 12-09-2021 Thin prep Papanicolaou smear with manual screening 5 5-15 [facility] Work Phone: Vital Signs Date Time Vital Sign Value Performing Clinician Faci lity 07-29-2025 14:58-0400 Body mass index (BMI) [Ratio] 24 kg/m2 Dr. Narinder Crum MD Work Phone: [facility] 07-29-2025 14:57-0400 Body height 160.[address] Narinder Crum MD Work Phone: [facility] 07-29-2025 14:57-0400 Body weight 61.[address] Narnider Crum MD Work Phone: [facility] 07-29-2025 14:24-0400 Diastolic blood pressure 58 mm[Hg] Dr. Narinder Crum MD Work Phone: [facility] 07-29-2025 14:24-0400 Heart rate 75 /min Dr. Narinder Crum MD Work Phone: [facility] 07-29-2025 14:24-0400 SaO2% (BldA) [Mass fraction] 96 % Dr. Narinder Crum MD Work Phone: [facility] 07-29-2025 14:24-0400 Systolic blood pressure 130 mm[Hg] Dr. Narinder Crum MD Work Phone: [facility] 07-19-2025 08:50-0400 Body mass index (BMI) [Ratio] 24 kg/m2 Dr. Narinder Crum MD Work Phone: [facility] 07-19-2025 08:50-0400 Body weight 61.[address] Narinder Crum MD Work Phone: [facility] 07-19-2025 08:50-0400 Diastolic blood pressure 69 mm[Hg] Dr. Narinder Crum MD Work Phone: [facility] 07-19-2025 08:50-0400 Heart rate 71 /min Dr. Narinder Crum MD Work Phone: [facility] 07-19-2025 08:50-0400 Respiratory rate 14 /min Dr. Narinder Crum MD Work Phone: [facility] 07-19-2025 08:50-0400 Systolic blood pressure 114 mm[Hg] Dr. Narinder Crum MD Work Phone: [facility] 07-16-2025 10:22-0400 Body mass index (BMI) [Ratio] 23.56 kg/m2 Elva De León CNP Work Phone: [facility] 07-16-2025 10:22-0400 Body weight 60.33 kg Elva De León CNP Work Phone: [facility] 07-16-2025 10:22-0400 Diastolic blood pressure 71 mm[Hg] Elva Lilli [employer] Work Phone: [facility] 07-16-2025 10:22-0400 Heart rate 70 /min Elva Lilli [employer] Work Phone: [facility] 07-16-2025 10:22-0400 Systolic blood pressure 134 mm[Hg] Elva Reeder [employer] Work Phone: [facility] 07-14-2025 21:29-0400 Body temperature 98.5 [degF] Dr. Narinder Crum MD Work Phone: [facility] 07-14-2025 21:29-0400 Diastolic blood pressure 62 mm[Hg] Dr. Narinder Crum MD Work Phone: [facility] 07-14-2025 21:29-0400 Heart rate 66 /min Dr. Narinder Crum MD Work Phone: [facility] 07-14-2025 21:29-0400 Respiratory rate 22 /min Dr. Narinder Crum MD Work Phone: [facility] 07-14-2025 21:29-0400 SaO2% (BldA) [Mass fraction] 99 % Dr. Narinder Crum MD Work Phone: [facility] 07-14-2025 21:29-0400 Systolic blood pressure 136 mm[Hg] Dr. Narinder Crum MD Work Phone: [facility] 07-14-2025 19:17-0400 Body mass index (BMI) [Ratio] 26.9 kg/m2 Dr. Narinder Crum MD Work Phone: [facility] 07-14-2025 19:17-0400 Body weight 68.[address] Narinder Crum MD Work Phone: [facility] 07-14-2025 18:12-0400 Body height 160.[address] Narinder Crum MD Work Phone: [facility] 06-28-2025 17:44-0400 Body temperature 98.7 [degF] Dr. Narinder Crum MD Work Phone: 5(719)853-800931 [address] 06-28-2025 17:44-0400 Diastolic blood pressure 82 mm[Hg] Dr. Narinder Crum MD Work Phone: 8(969)707-986745 [place] [address] 06-28-2025 17:44-0400 Heart rate 81 /min Dr. Narinder Crum MD Work Phone: 8(872)684-391945 [place] [address] 06-28-2025 17:44-0400 Respiratory rate 18 /min Dr. Narinder Crum MD Work Phone: 6(768)605-279145 [place] [address] 06-28-2025 17:44-0400 SaO2% (BldA) [Mass fraction] 100 % Dr. Narinder Crum MD Work Phone: 8(852)880-277645 [place] [address] 06-28-2025 17:44-0400 Systolic blood pressure 168 mm[Hg] Dr. Narinder Crum MD Work Phone: 8(012)794-941745 [place] [address] 06-28-2025 17:38-0400 Body temperature 98.7 [degF] Dr. Narinder Crum MD Work Phone: 4(165)520-865745 [place] [address] 06-28-2025 17:38-0400 Diastolic blood pressure 82 mm[Hg] Dr. Narinder Crum MD Work Phone: 9(706)544-364045 [place] [address] 06-28-2025 17:38-0400 Heart rate 81 /min Dr. Narinder Crum MD Work Phone: 2(348)091-149245 [place] [address] 06-28-2025 17:38-0400 Respiratory rate 18 /min Dr. Narinder Crum MD Work Phone: 1(392)735-221145 [place] [address] 06-28-2025 17:38-0400 SaO2% (BldA) [Mass fraction] 100 % Dr. Narinder Crum MD Work Phone: 0(525)850-502945 [place] [address] 06-28-2025 17:38-0400 Systolic blood pressure 168 mm[Hg] Dr. Narinder Crum MD Work Phone: 2(507)988-708345 [place] [address] 06-28-2025 15:46-0400 Body height 160.[address] Narinder Crum MD Work Phone: [facility] 06-28-2025 15:46-0400 Body mass index (BMI) [Ratio] 23.6 kg/m2 Dr. Narinder Crum MD Work Phone: [facility] 06-28-2025 15:46-0400 Body weight 60.[address] Narinder Crum MD Work Phone: [facility] 06-27-2025 09:07-0400 Body temperature 98.29 [degF] Capodiana Avonmore DO Work Phone: [facility] 06-27-2025 09:07-0400 Diastolic blood pressure 80 mm[Hg] Capolyn Avonmore DO Work Phone: [facility] 06-27-2025 09:07-0400 Heart rate 75 /min Capolyn Rivka DO Work Phone: [facility] 06-27-2025 09:07-0400 Respiratory rate 18 /min Capolyn Avonmore DO Work Phone: [facility] 06-27-2025 09:07-0400 SaO2% (BldA) [Mass fraction] 94 % Capolyn Rivka DO Work Phone: [facility] 06-27-2025 09:07-0400 Systolic blood pressure 165 mm[Hg] Capolyn Avonmore DO Work Phone: [facility] 06-25-2025 15:58-0400 Body mass index (BMI) [Ratio] 23.61 kg/m2 Capolyn Avonmore DO Work Phone: [facility] 06-25-2025 15:58-0400 Body weight 60.46 kg Capolyn Avonmore DO Work Phone: [facility] 06-25-2025 11:57-0400 Body height 160 cm Caposonyan Avonmore DO Work Phone: [facility] 06-22-2025 07:47-0400 Body temperature 98.4 [degF] Selvin Radford Work Phone: [facility] 06-22-2025 07:47-0400 Diastolic blood pressure 68 mm[Hg] Selvin Lynch MD Work Phone: [facility] 06-22-2025 07:47-0400 Heart rate 71 /min Selvin Radford Work Phone: [facility] 06-22-2025 07:47-0400 Respiratory rate 16 /min Selvin Radford Work Phone: [facility] 06-22-2025 07:47-0400 SaO2% (BldA) [Mass fraction] 96 % Selvin Lynch MD Work Phone: [facility] 06-22-2025 07:47-0400 Systolic blood pressure 147 mm[Hg] Selvin Lynch MD Work Phone: [facility] 06-22-2025 06:22-0400 Body mass index (BMI) [Ratio] 24.57 kg/m2 Selvin Lynch MD Work Phone: [facility] 06-22-2025 06:22-0400 Body weight 62.91 kg Selvin Radford Work Phone: [facility] 06-19-2025 08:26-0400 SaO2% (BldA) [Mass fraction] 98.9 % Selvin Lynch MD Work Phone: [facility] 06-19-2025 08:00-0400 Body height 160 cm Selvin Radford Work Phone: [facility] 06-19-2025 05:08-0400 SaO2% (BldA) [Mass fraction] 97.8 % Selvin Lynch MD Work Phone: [facility] 06-19-2025 03:24-0400 SaO2% (BldA) [Mass fraction] 97.8 % Selvin Lynch MD Work Phone: [facility] 06-19-2025 00:54-0400 SaO2% (BldA) [Mass fraction] 97.1 % Selvin Lynch MD Work Phone: [facility] 06-18-2025 19:44-0400 SaO2% (BldA) [Mass fraction] 98.4 % Selvin Lynch MD Work Phone: [facility] 06-18-2025 15:39-0400 SaO2% (BldA) [Mass fraction] 99.8 % Selvin Lynch MD Work Phone: [facility] 06-14-2025 15:23-0400 Body temperature 98.1 [degF] Dr. Narinder Crum MD Work Phone: [facility] 06-14-2025 15:23-0400 Diastolic blood pressure 103 mm[Hg] Dr. Narinder Crum MD Work Phone: [facility] 06-14-2025 15:23-0400 Heart rate 75 /min Dr. Narinder Crum MD Work Phone: [facility] 06-14-2025 15:23-0400 Respiratory rate 16 /min Dr. Narinder Crum MD Work Phone: [facility] 06-14-2025 15:23-0400 SaO2% (BldA) [Mass fraction] 98 % Dr. Narinder Crum MD Work Phone: [facility] 06-14-2025 15:23-0400 Systolic blood pressure 152 mm[Hg] Dr. Narinder Crum MD Work Phone: [facility] 06-14-2025 10:38-0400 Body height 160.[address] Narinder Crum MD Work Phone: [facility] 06-14-2025 10:38-0400 Body weight [address] Narinder Crum MD Work Phone: [facility] 06-14-2025 06:55-0400 Inhaled oxygen flow rate 2 L/min Dr. Narinder Crum MD Work Phone: [facility] 06-14-2025 05:16-0400 Body mass index (BMI) [Ratio] 24.5 kg/m2 Dr. Narinder Crum MD Work Phone: [facility] 06-13-2025 20:03-0400 Body temperature 98.4 [degF] Dr. Narinder Crum MD Work Phone: 1(345)983-191145 [place] [address] 06-13-2025 20:03-0400 Diastolic blood pressure 89 mm[Hg] Dr. Narinder Crum MD Work Phone: 5(505)508-736131 [address] 06-13-2025 20:03-0400 Heart rate 75 /min Dr. Narinder Crum MD Work Phone: 4(750)231-168745 [place] [address] 06-13-2025 20:03-0400 Respiratory rate 16 /min Dr. Narinder Crum MD Work Phone: 3(501)647-362045 [place] [address] 06-13-2025 20:03-0400 SaO2% (BldA) [Mass fraction] 100 % Dr. Narinder Crum MD Work Phone: 2(169)560-226831 [address] 06-13-2025 20:03-0400 Systolic blood pressure 165 mm[Hg] Dr. Narinder Crum MD Work Phone: 3(247)781-657445 [place] [address] 06-13-2025 19:29-0400 Inhaled oxygen flow rate 2 L/min Dr. Narinder Crum MD Work Phone: 8(932)567-630567 [place] [address] 06-13-2025 17:30-0400 Body height 160.[address] Narinder Crum MD Work Phone: [facility] 06-13-2025 17:30-0400 Body mass index (BMI) [Ratio] 23.6 kg/m2 Dr. Narinder Crum MD Work Phone: [facility] 06-13-2025 17:30-0400 Body weight 60.[address] Narinder Crum MD Work Phone: [facility] 01-25-2025 13:08-0500 Body height 160.[address] Narinder Crum MD Work Phone: [facility] 01-25-2025 13:08-0500 Body mass index (BMI) [Ratio] 27.1 kg/m2 Dr. Narinder Crum MD Work Phone: [facility] 01-25-2025 13:08-0500 Body weight 69.[address] Narinder Crum MD Work Phone: [facility] 12-20-2023 17:49-0500 Diastolic blood pressure 86 mm[Hg] [facility] 12-20-2023 17:49-0500 Heart rate 74 /min [facility] 12-20-2023 17:49-0500 Respiratory rate 16 /min [place] 12-20-2023 17:49-0500 SaO2% (BldA) [Mass fraction] 95 % [facility] 12-20-2023 17:49-0500 Systolic blood pressure 161 mm[Hg] [facility] 12-20-2023 14:08-0500 Body height 160.02 cm [facility] 12-20-2023 14:08-0500 Body mass index (BMI) [Ratio] 29.7 kg/m2 [facility] 12-20-2023 14:08-0500 Body temperature 97.3 [degF] [place] 12-20-2023 14:08-0500 Body weight 76.2 kg [facility] 01-03-2023 09:23-0500 Body temperature 98 [degF] Dr. Narinder Crum Work Phone: [facility] 01-03-2023 09:23-0500 Diastolic blood pressure 76 mm[Hg] Dr. Narinder Crum Work Phone: [facility] 01-03-2023 09:23-0500 Heart rate 80 /min Dr. Narinder Crum Work Phone: [facility] 01-03-2023 09:23-0500 Respiratory rate 14 /min Dr. Narinder Crum Work Phone: [facility] 01-03-2023 09:23-0500 SaO2% (BldA) [Mass fraction] 96 % Dr. Narinder Crum Work Phone: [facility] 01-03-2023 09:23-0500 Systolic blood pressure 128 mm[Hg] Dr. Narinder Crum Work Phone: [facility] 09-05-2022 07:11-0400 Body height 160.02 cm [facility] Work Phone: 09-05-2022 07:11-0400 Body mass index (BMI) [Ratio] 26.6 kg/m2 [facility] Work Phone: 09-05-2022 07:11-0400 Body temperature 97.4 [degF] [place] Work Phone: 09-05-2022 07:11-0400 Body weight 68.1 kg [facility] Work Phone: 09-05-2022 07:11-0400 Diastolic blood pressure 84 mm[Hg] [facility] Work Phone: 09-05-2022 07:11-0400 Heart rate 71 /min [facility] Work Phone: 09-05-2022 07:11-0400 Respiratory rate 16 /min [place] Work Phone: 09-05-2022 07:11-0400 SaO2% (BldA) [Mass fraction] 98 % [facility] Work Phone: 09-05-2022 07:11-0400 Systolic blood pressure 150 mm[Hg] [facility] Work Phone: 12-09-2021 14:30-0500 Diastolic blood pressure 77 mm[Hg] [facility] Work Phone: 12-09-2021 14:30-0500 Heart rate 68 /min [facility] Work Phone: 12-09-2021 14:30-0500 Respiratory rate 15 /min [place] Work Phone: 12-09-2021 14:30-0500 SaO2% (BldA) [Mass fraction] 97 % [facility] Work Phone: 12-09-2021 14:30-0500 Systolic blood pressure 125 mm[Hg] [facility] Work Phone: 12-09-2021 12:04-0500 Body height 160.02 cm [facility] Work Phone: 12-09-2021 12:04-0500 Body mass index (BMI) [Ratio] 28.8 kg/m2 [facility] Work Phone: 12-09-2021 12:04-0500 Body temperature 98.5 [degF] [place] Work Phone: 12-09-2021 12:04-0500 Body weight 73.93 kg [facility] Work Phone: Encounters Encounter Date Encounter Type Care Provider Facility Start: 08-02-2025 ambulatory Narinder Crum Facility:[facility] Start: 07-31-[address] Edil Hong MD -Cardiac Rehab Work Phone: Start: 07-31-2025 End: 07-31-2025 Postop follow up visit related to original px Elva Reeder [employer] Work Phone: [facility] Cardiovascular Thoracic Surgery [facility] [place] Comment on above: S/P CABG (coronary a rtery bypass graft) (Primary Dx) Start: 07-31-2025 End: 07-31-2025 ambulatory ELVA REEDER [facility] Start: 07-29-2025 End: 07-29-[address] Narinder Crum MD Work Phone: -Cardiac Rehab Start: 07-29-2025 End: 07-29-[address] Edil Hong MD -Cardiac Rehab Work Phone: Start: 07-29-2025 End: 07-29-2025 ambulatory Narinder Crum Facility:[facility] Start: 07-26-2025 End: 07-26-2025 ambulatory [facility] Start: 07-19-2025 End: 07-19-2025 Patient encounter procedure Bong Helton BRAYDEN -[facility] Work Phone: Start: 07-19-2025 End: 07-19-[address] Narinder Crum MD Work Phone: [facility] Start: 07-17-2025 End: 07-17-2025 ambulatory Janelle Carroll [facility] Start: 07-16-2025 End: 07-16-2025 Postop follow up visit related to original px Elva De León [employer] Work Phone: [facility] Thor[facility] [place] Comment on above: S/P CABG (coronary a rtery bypass graft) (Primary Dx); NSTEMI (non-ST elevation myocardial infarction) (HCC) Start: 07-16-2025 End: 07-16-2025 ambulatory ELVA REEDER [facility] Start: 07-14-2025 End: 07-14-2025 Emergency department patient visit Dr. Narinder Crum MD Work Phone: -Emergency Department Work Phone: Start: 07-02-2025 End: 07-02-2025 ambulatory Janelle Carroll [facility] Start: 07-02-2025 End: 07-04-2025 Telephone encounter Elva De León CNP Work Phone: [facility] [place] Comment on above: Other (Pt. Admit Eas t [facility] ) Start: 06-29-2025 End: 07-01-2025 [facility] Start: 06-28-2025 End: 06-28-2025 Emergency department patient visit Dr. Narinder Crum MD Work Phone: -Emergency Department Work Phone: Start: 06-24-2025 End: 06-27-2025 Evaluation and management of inpatient Gokul Chavarria DO Work Phone: [facility] Trauma Neuro Progressive Care Unit PCU 3W Comment on above: Altered mental statu s, unspecified altered mental status type (Primary Dx); Lower extremity edema; Acute stroke due to ischemia (HCC); Stroke, recent, without late effect Start: 06-23-2025 End: 06-23-2025 Telephone encounter Anders Johnston DO Work Phone: [facility] [place] Comment on above: Other (Page out) Start: 06-18-2025 End: 06-18-2025 Evaluation and management of inpatient Naresh Lim MD Work Phone: [facility] MAIN OR Start: 06-14-2025 End: 06-22-2025 Evaluation and management of inpatient Selvin Lynch MD Work Phone: [facility] Cardiac Thoracic Vascular Intensive Care Unit CTV ICU T1 Start: 06-14-2025 Non-patient / Non-visit Dr. Thelma Hamm DO -[facility] Work Phone: Start: 06-14-2025 Non-patient / Non-visit Dr. Edil Hong MD -[facility] Start: 06-13-2025 ambulatory Hui Morel Facility :[facility] Start: 06-13-2025 End: 06-14-2025 Evaluation and management of inpatient Dr. Hui Morel MD -Intensive Care Unit Work Phone: Start: 03-15-2025 End: 03-15-[address] Narinder Crum MD Work Phone: [facility] Work Phone: Start: 03-15-2025 End: 03-15-[address] [facility] Work Phone: Start: 03-15-2025 End: 03-15-2025 ambulatory Narinder Curm Facility:[facility] Start: 02-05-2025 End: 03-05-2025 ambulatory NARINDER CRUM MD Facility:[facility] Start: 01-25-2025 End: 01-25-2025 Patient encounter procedure Ruthann OWEN -[facility] Work Phone: Start: 01-25-2025 End: 01-25-2025 ambulatory Narinder Crum Facility:[facility] Start: 10-30-2024 End: 10-30-[address] Narinder Crum MD Work Phone: [facility] Work Phone: Start: 10-30-2024 End: 10-30-[address] Narinder Crum MD Work Phone: -Outpatient Bone Densitometry Work Phone: Start: 10-30-2024 End: 10-30-2024 ambulatory Narinder Crum Facility:[facility] Start: 03-05-2024 End: 03-05-2024 ambulatory [facility] Work Phone: Start: 03-05-2024 End: 03-05-2024 Patient encounter procedure [facility] Work Phone: Start: 12-20-2023 End: 12-20-2023 Emergency department patient visit [facility]Emergency Department Work Phone: Start: 09-22-2023 End: 09-22-2023 Patient encounter procedure [facility]-Outpatient Breast Imaging Work Phone: Start: 06-30-2023 End: 06-30-2023 ambulatory [facility] Work Phone: Start: 06-30-2023 End: 06-30-2023 Discharged Recurring [facility]-Physical Therapy Work Phone: Start: 02-08-2023 End: 02-08-[address] Narinder Crum Work Phone: [facility] Work Phone: Start: 02-08-2023 End: 02-08-[address] Narinder Crum Work Phone: [facility] Start: 01-03-2023 End: 01-03-[address] Narinder Crum Work Phone: [facility] Start: 09-05-2022 End: 09-05-2022 Emergency department patient visit [facility]Emergency Department Start: 08-31-2022 End: 08-31-2022 ambulatory [facility] Work Phone: Start: 08-31-2022 End: 08-31-2022 Patient encounter procedure [facility]-Outpatient Bone Densitometry Start: 08-18-2022 End: 08-18-2022 ambulatory [facility] Work Phone: Start: 08-18-2022 End: 08-18-2022 Patient encounter procedure [facility] Start: 06-15-2022 End: 06-15-2022 Patient encounter procedure [facility] Start: 04-07-2022 End: 04-26-[address] [facility] Start: 03-17-2022 End: 03-17-2022 Patient encounter procedure [facility] Start: 03-15-2022 End: 04-13-2022 ambulatory CHERY DPM [facility] Start: 03-04-2022 End: 03-04-2022 ambulatory CHERY DPM [facility] Start: 02-18-2022 End: 02-18-2022 Emergency department patient visit DR JACE MATHEWS [facility] Start: 02-04-2022 End: 02-04-[address] [facility] Start: 12-21-2021 End: 12-21-2021 Patient encounter procedure [facility] Start: 12-14-2021 End: 12-14-2021 Patient encounter procedure [facility] Start: 12-09-2021 End: 12-09-2021 Emergency department patient visit [facility]Emergency [facility] Procedures Date Procedure Procedure Detail Performing Clinician Start: 07-16-2025 Follow-up visit NARINDER BART RAMESH Start: 07-15-2025 History of coronary artery bypass grafting S/P CABG (coronary artery bypass graft) Elva Lilli [employer] LAYER HELPER [facility] Work Phone: Start: 07-14-2025 Plain chest X-ray Dr. Esther Crum MD Work Phone: Start: 07-14-[address] Narinder Crum MD Work Phone: Start: 06-28-2025 Plain chest X-ray Dr. Esther Crum MD Work Phone: Start: 06-28-[address] Narinder Crum MD Work Phone: Start: 06-28-2025 Urnls dip stick/tabl et reagent auto microscopy Dr. Narinder Crum MD Work Phone: Start: 06-27-2025 Cyanocobalamin vitam in b-12 Teresita M Banko [facility] Work Phone: Start: 06-25-2025 Echo tthrc r-t 2d w/wom-mode compl spec&colr d Annette Saldana [facility] Work Phone: Start: 06-25-2025 Dup-scan xtr veins complete bilateral study Annette Saldana [employer] - [facility] Work Phone: Start: 06-25-2025 Assay of troponin quantitative Hernesto Perez BRAIN WAVE TECHNICIAN Work Phone: Start: 06-25-2025 Ecg routine ecg [...] Phone: Start: 06-24-2025 Ct angiography head w/contrast/noncontrast Capodiana [place]more Work Phone: Start: 06-24-2025 End: 06-24-2025 Comprehensive metabolic panel Lucho Longoria PA-C Work Phone: Start: 06-24-2025 Radiologic exam ches t single view Lucho Longoria PA-C Work Phone: Start: 06-24-2025 Ecg routine ecg w/le ast 12 lds trcg only w/o i&r Lidanicole Rivka [employer] Work Phone: Start: 06-24-2025 Thyrotropin [Units/volume] in Serum or Plasma Anders Johnston [employer] Work Phone: Start: 06-22-2025 Radiologic exam ches t single view Fiona AMilana Vega [employer] - [employer] Work Phone: Start: 06-22-2025 Compatibility each u nit electronic Fiona A. Lesluissky [employer] - [employer] Work Phone: Start: 06-22-2025 Basic metabolic pane l calcium total Fiona A. Gary [employer] - [employer] Work Phone: Start: 06-21-2025 Radiologic exam ches t single view Fiona A. Isaiasy [employer] - [employer] Work Phone: Start: 06-21-2025 Basic metabolic pane l calcium total Fiona A. Leskosky [employer] - [employer] Work Phone: Start: 06-20-2025 Glucose quantitative blood xcpt reagent strip Anders Johnston [employer] Work Phone: Start: 06-20-2025 Radiologic exam ches t single view Fiona A. Leskosky [employer] - [employer] Work Phone: Start: 06-20-2025 Ecg routine ecg w/le ast 12 lds trcg only w/o i&r Fiona Antonino Diazarvindkobe [employer] - [employer] Work Phone: Start: 06-20-2025 Basic metabolic pane l calcium total Fiona ConstanceMilana Emilyarvindkobe [employer] HEL[employer] - [employer] Work Phone: Start: 06-19-2025 Glucose quantitative blood [...] ph pco2 po2 co2 hco3 Fiona Vega [employer] HEL[employer] - [employer] Work Phone: Start: 06-19-2025 Ecg routine ecg w/le ast 12 lds trcg only w/o i&r Fiona ConstanceMilana Emilyarvindkobe [employer] HEL[employer] - [employer] Work Phone: Start: 06-19-2025 Radiologic exam ches t single view Fiona ConstanceMilana Valerianoviet [employer] - [employer] Work Phone: Start: 06-19-2025 Glucose quantitative blood xcpt reagent strip Anders Johnston DO Work Phone: Start: 06-19-2025 Blood gases any combination ph pco2 po2 co2 hco3 Sharee Grande MD Work Phone: Start: 06-19-2025 Blood gases any combination ph pco2 po2 co2 hco3 Fiona NolascoMilana Emilylakeshia [employer] HEL[employer] - [employer] Work Phone: Start: 06-19-2025 End: 06-19-2025 Glucose quantitative blood xcpt reagent strip Anders Johnston DO Work Phone: Start: 06-19-2025 Blood gases any combination ph pco2 po2 co2 hco3 Fiona ConstanceMilana Vega [employer] HEL[employer] - [employer] Work Phone: Start: 06-19-2025 End: 06-19-2025 Basic metabolic panel calcium total Fiona Antonino Gary [employer] HEL[employer] - [employer] Work Phone: Start: 06-18-2025 Glucose quantitative blood [...] combination ph pco2 po2 co2 hco3 Fiona Antonino Gary [employer] - [employer] Work Phone: Start: 06-18-2025 Glucose quantitative blood xcpt reagent strip Anders Johnston DO Work Phone: Start: 06-18-2025 Compatibility each u nit electronic Latrell Kidd DO Work Phone: Start: 06-18-2025 End: 06-18-2025 TRANSFUSE RED BLOOD CELLS Latrell Buis DO Work Phone: Start: 06-18-2025 Ecg routine ecg w/le ast 12 lds trcg only w/o i&r Fiona Vega [employer] - [employer] Work Phone: Start: 06-18-2025 End: 06-18-2025 Radiologic exam chest single view Anders Johnston DO Work Phone: Start: 06-18-2025 End: 06-18-2025 Basic metabolic panel calcium total Sandip Quezada MD Work Phone: Start: 06-18-2025 Blood gases any combination ph pco2 po2 co2 hco3 Sandip Quezada MD Work Phone: Start: 06-18-2025 History of coronary artery bypass grafting History of coronary artery bypass graft x 3 Bong OWEN Comment on above: Left internal mammar y artery to LAD; Reverse saphenous vein graft to the obtuse marginal artery; Reverse saphenous vein graft to the right posterior descending artery Start: 06-18-2025 Insj non-tunneled ce ntral venous cath age 6 yr/> Naresh Motta DOOR CLAMP OPERATOR Start: 06-18-2025 FL AN CENTRAL LINE S DAVID LUMEN Naresh Motta DOOR CLAMP OPERATOR Start: 06-18-2025 Us vasc access sits vsl patency ndl entry Naresh Motta DOOR CLAMP OPERATOR Start: 06-18-2025 FL AN ELECTIVE ENDOTRACHEAL AIRWAY Naresh Motta DOOR CLAMP OPERATOR Start: 06-18-2025 ANESTHESIA ARTERIAL LINE PLACEMENT Naresh Motta DOOR CLAMP OPERATOR Start: 06-18-2025 End: 06-18-2025 Cabg w/arterial graft three arterial grafts Anders Johnston DO Work Phone: Start: 06-18-2025 End: 06-18-2025 Echo transesophag r-t 2d w/prb img acquisj i&r Anders Riveraung DO Work Phone: Start: 06-18-2025 Ecg routine ecg w/le ast 12 lds trcg only w/o i&r Shayna Dodd DO Work Phone: Start: 06-18-2025 Thromboplastin time partial plasma/whole blood Jovanny Bello DO Work Phone: Start: 06-18-2025 Radiologic exam ches t single view Elva Hopkins DO Work Phone: Start: 06-18-2025 Assay of troponin quantitative Elva Hopkins DO Work Phone: Start: 06-18-2025 End: 06-18-2025 Ecg routine ecg w/least 12 lds trcg only w/o i&r Jovanny Bello DO Work Phone: Start: 06-18-2025 Antibody screen ANRINDER SM ITH Comment on above: Order Comment: Speci men is valid for 3 days - nurse to verify valid specimen Performed By: #### L [id number] ####Moisture Machine Tender: MIGUEL LEAL ([id number])[facility] ([facility])[address] [place] [address] Start: 06-18-2025 ABO and Rh group [Ty pe] in Blood by Confirmatory method Fiona Vega [employer] Work Phone: Start: 06-18-2025 Blood typing serolog ic rh (d) Fiona Vega [employer] Work Phone: Start: 06-18-2025 Comprehensive metabo lic panel Jovanny Bello DO Work Phone: Start: 06-17-2025 Iadna s aureus methicillin resist amp probe tq Fiona Vega [employer] Work Phone: Start: 06-17-2025 BEDSIDE SPIROMETRY Fiona Vega [employer] Work Phone: Start: 06-17-2025 Dup-scan xtr veins complete bilateral study Fiona Vega [employer] Work Phone: Start: 06-17-2025 Duplex scan extracra nial art compl bi study Fiona AMilana Vega [employer] Work Phone: Start: 06-17-2025 Ecg routine ecg w/le ast 12 lds trcg only w/o i&r Jovanny Bello DO Work Phone: Start: 06-17-2025 Comprehensive metabo lic panel Jovanny Bello DO Work Phone: Start: 06-16-2025 Ct thorax w/o contra st material Fiona Vega [employer] LAYER HELPER - [facility] Work Phone: Start: 06-16-2025 Radiologic exam abdo [...] ast 12 lds trcg only w/o i&r Philipmary Freemanub DO Work Phone: Start: 06-16-2025 Comprehensive metabo [...] CABG Dr. Narinder Crum MD Work Phone: History of coronary artery bypass grafting History of coronary artery bypass graft x 3 Dr. Narinder Crum MD Work Phone: History of coronary artery bypass grafting S/P CABG (coronary artery bypass graft) Elva De León CNP Work Phone: History of coronary artery bypass grafting S/P CABG (coronary artery bypass graft) Elva De León CNP Work Phone: Plan of Treatment Date Care Activity Detail Author Start: 07-27-2034 DTaP/Tdap/Td Vaccines (3 - Td or Tdap) DTaP/Tdap/Td Vaccines (3 - Td or Tdap) [facility] Start: 07-27-2034 [facility] Start: 06-15-2030 Lipid panel [facility] Start: 06-24-2026 Thyroid stimulating hormone measurement TSH Level [facility] Start: 06-16-2026 Diabetes mellitus screening [facility] Start: 06-14-2026 Thyroid stimulating hormone measurement [facility] Start: 10-30-2025 Screening for malignant neoplasm of breast [facility] Start: 07-31-2025 End: 07-31-2025 Telemedicine consultation with patient 07/31/2025 11:30 AM EDT Telemedicine [facility] [place] [address] [place] [phone] Elva Reeder APRN - CNP [address] [place] [address] [facility] [place] Start: 07-22-2025 Influenza vaccination Influenza Vaccine (#1) [facility] Start: 07-22-2025 [facility] Start: 07-16-2025 End: 07-16-2025 Patient encounter procedure 07/16/2025 10:30 AM EDT Office Visit [facility] [place] [address] [place] [phone] Elva Reeder APRN - COSTUMER [address] [place] [address] [facility] [place] Start: 07-14-2025 End: 07-14-2025 [facility] Start: 07-04-2025 End: 07-04-2025 Patient encounter procedure 07/04/2025 10:30 AM EDT Office Visit [facility] [place] [address] [place] [phone] Elva Reeder APRN - COSTUMER [address] [place] [address] [facility] [place] Start: 06-28-2025 [facility] Start: 06-28-2025 Plain chest X-ray Chest 1 View (Portable) [facility] Start: 06-28-2025 XR Chest Single view [facility] Start: 06-24-2025 End: 07-24-2025 XR Chest 2 Views XR chest 2 views Imaging Routine Dyspnea, unspecified type Expected: 06/24/2025, Expires: 07/24/2025 [facility] Work Phone: Comment on above: Expected: 06/24/2025, Expires: Start: 06-14-2025 Patient discharge [facility] Start: 06-14-2025 Partial thromboplastin time, activated [facility] Start: 06-14-2025 Prothrombin time [facility] Start: 06-14-2025 Notification of physician [facility] Start: 06-14-2025 Patient education [facility] Start: 06-14-2025 Provision of activity privileges [facility] Start: 06-14-2025 Pulse taking [facility] Start: 06-14-2025 Taking patient vital signs [facility] Start: 06-14-2025 Wound care [facility] Start: 06-14-2025 [facility] Start: 06-14-2025 Catheterization of vein [facility] Start: 06-14-2025 Notification of physician [facility] Start: 06-14-2025 Preoperative care [facility] Start: 06-14-2025 [facility] Start: 06-14-2025 Patient discharge [facility] Start: 06-13-2025 Following clinical pathway protocol [facility] Start: 06-13-2025 Assessment of risk of venous thromboembolism [facility] Start: 06-13-2025 Continuous pulse oximetry [facility] Start: 06-13-2025 Elevation of head of bed [place] Start: 06-13-2025 Incentive spirometry [facility] Start: 06-13-2025 Inhalation therapy procedure [facility] Start: 06-13-2025 Insertion of catheter into peripheral vein [facility] Start: 06-13-2025 Introduction of urinary catheter [facility] Start: 06-13-2025 Measuring intake and output [facility] Start: 06-13-2025 Oxygen therapy [facility] Start: 06-13-2025 Patient referral to dietitian [facility] Start: 06-13-2025 Providing care according to standard [facility] Start: 06-13-2025 Provision of activity privileges [facility] Start: 06-13-2025 Referral to reporting manager [place] Start: 06-13-2025 Referral to occupational therapist [facility] Start: 06-13-2025 Referral to service [facility] Start: 06-13-2025 Tobacco use cessation education [facility] Start: 06-13-2025 Vital signs measurements [place] Start: 06-13-2025 End: 06-13-2025 [facility] Start: 06-13-2025 Electrocardiographic procedure [facility] Start: 06-13-2025 Hospital admission, emergency, from emergency room, medical nature [facility] Start: 06-13-2025 Verification routine [facility] Start: 06-13-2025 Admission procedure [facility] Start: 06-13-2025 Partial thromboplastin time, activated [facility] Start: 06-13-2025 Prothrombin time [facility] Start: 06-13-2025 Referral to service [facility] Start: 06-13-2025 [facility] Start: 01-25-2025 Patient referral [facility] Work Phone: Start: 12-21-2023 Electrocardiographic procedure [facility] Start: 12-21-2023 [facility] Start: 12-20-2023 End: 12-20-2023 [facility] Start: 1969 Hepatitis C screening [facility] Start: 1963 Depression Monitoring Depression Monitoring [facility] Start: 1963 Depression Screening Depression Screening [facility] Start: 1963 [facility] Start: 1950 Medicare Annual Wellness (AWV) Medicare Annual Wellness (AWV) [facility] Start: 1950 Screening for malignant neoplasm of colon [facility] Start: 1950 Screening for osteoporosis [facility] Start: 1950 [facility] Alternaria alternata IgE Ab [Units/volume] in Serum [facility] Nicaraguan Cockroach I gE Ab [Units/volume] in Serum [facility] Nicaraguan house dust mite IgE Ab [Units/volume] in Serum [facility] Aspergillus fumigatus [facility] Bahia grass IgE Ab [Units/volume] in Serum [facility] Bermuda grass IgE Ab [Units/volume] in Serum [facility] Box elder [facility] Cat dander IgE Ab [Units/volume] in Serum [facility] Cladosporium herbaru m IgE Ab [Units/volume] in Serum [facility] Common Ragweed IgE A b [Units/volume] in Serum [facility] Dog epithelium IgE A b [Units/volume] in Serum [facility] End: 06-25-2025 ECG 12 lead ECG 12 lead CV ECG STAT Once for 1 Occurrences starting 06/25/2025 until 06/25/2025 [facility] Comment on above: Once for 1 Occurrences starting 06/25/20 until 06/25/2025 End: 06-24-2025 ECG 12 lead if not done in the ED ECG 12 lead if not done in the ED CV ECG Routine Once for 1 Occurrences starting 06/24/2025 until 06/24/2025 [facility] Work Phone: Comment on above: Once for 1 Occurrences starting 06/24/20 until 06/24/2025 Erythrocyte mean cor puscular volume determination [facility] house dust mite IgE Ab [Units/volume] in Serum [facility] Hazelnut Pollen IgE Ab [Units/volume] in Serum [facility] Hematocrit [Volume F raction] of Blood [facility] Hemoglobin [Mass/vol ume] in Blood [facility] Hepatic function panel [facility] INR in Blood by Coag ulation assay [facility] INR in Blood by Coag ulation assay [facility] Raphael grass IgE Ab [Units/volume] in Serum [facility] [place] blue grass IgE Ab [Units/volume] in Serum [facility] Leukocytes [#/volume ] in Blood [facility] Lipid 1996 panel - S fernando or Plasma [facility] Mean corpuscular hem oglobin concentration determination [facility] Mean corpuscular hem oglobin determination [facility] Mountain Juniper IgE Ab [Units/volume] in Serum [facility] Mucor racemosus IgE Ab [Units/volume] in Serum [facility] Mugwort IgE Ab [Units/volume] in Serum [facility] Nettle IgE Ab [Units /volume] in Serum [facility] Neutrophil count [facility] Neutrophil percent differential count [facility] Patient Education [facility] Work Phone: Patient referral [facility] Work Phone: Penicillium notatum IgE Ab [Units/volume] in Serum [facility] Plantain (Congolese) [facility] Platelets [#/volume] in Blood [facility] Red blood cell count [facility] Red cell distributio n width determination [facility] Rough Pigweed IgE Ab [Units/volume] in Serum [facility] Sheep Flint IgE Ab [Units/volume] in Serum [facility] Stemphylium botryosu m IgE Ab [Units/volume] in Serum [facility] Sweet gum [facility] Thyroid stimulating hormone measurement [facility] Tree pollen RAST [facility] Troponin T.cardiac [Mass/volume] in Serum or Plasma by High sensitivity method [facility] Troponin T.cardiac [Mass/volume] in Serum or Plasma by High sensitivity method [facility] End: 06-18-2025 Heart Transesophageal [facility] Work Phone: [place] Heart Transesophageal [facility] [place]m IgE Ab [Units/volume] in Serum [facility] White [place] IgE Ab [Units/volume] in Serum [facility] Hereford IgE Ab [Units/volume] in Serum [facility] Immunizations Immunization Date Immunization Notes Care Provider Fa sadiq 07-27-2024 influenza virus vacc ine, unspecified formulation Naresh Lim MD Work Phone: [facility] Payers Date Payer Category Payer Medicare supplementa l policy (as second payer) [id number] 2025 Private Health Insurance [id number] 2024 Self-pay [id number] 2016 Medicare [id number] 2016 Unknown [id number] 2016 Medicare [id number] 1950 Unknown [id number] [id number] 1950 Unknown [id number] 2.0.1.203281.3.579.2.65 1951 Unknown [id number] 2.0.1.352227.3.579.2.65 1951 Unknown [id number] 2.840.1.534745.3.579.2.651 1951 Unknown [id number] 2.840.1.853788.3.579.2.65 1951 Unknown [id number] 2.840.1.251978.3.579.2.627 1950 Unknown [id number] 2.840.1.217924.3.579.2.627 Unknown [id number] 2.16.840.1.822685.3.579.2.462 Unknown [id number] 2.16.840.1.447928.3.579.2.462 Unknown [id number] 2.16.840.1.274731.3.579.2.462 Unknown [id number] 2.16.840.1.114473.3.579.2.462 Unknown [id number] 2.16.840.1.884990.3.579.2.462 Unknown [id number] 2.16.840.1.110589.3.579.2.462 Unknown [id number] 2.16.840.1.643911.3.579.2.462 Unknown [id number] 2.16.840.1.209675.3.579.2.462 Unknown [id number] 2.16.840.1.896027.3.579.2.462 Unknown [id number] 2.16.840.1.144813.3.579.2.462 Unknown [id number] 2.16.840.1.642741.3.579.2.462 Unknown [id number] 2.16.840.1.743063.3.579.2.462 Unknown [id number] 2.16.840.1.585516.3.579.2.462 Social History Date Type Detail Facility Start: 12-09-2021 End: 06-14-2025 Tobacco smoking status NHIS Unknown if ever smoked [facility] Start: 1950 Sex Assigned At Female [facility] Start: 02-25-2025 End: 06-14-2025 Sex Female (finding) [facility] Start: 06-13-2025 End: 06-25-2025 Tobacco smoking status NHIS Never smoked tobacco (finding) [facility] Start: 06-14-2025 End: 06-24-2025 History of Social function [facility] Start: 06-14-2025 End: 06-24-2025 Humiliation, Afraid, Rape, and Kick questionnaire [HARK] [facility] Within the last year , have you been afraid of your partner or ex-partner? No [facility] How often to you hav e a drink containing alcohol? 2-4 times a month [facility] How many standard dr inks containing alcohol do you have on a typical day? 1 or 2 [facility] How often do you hav e 6 or more drinks on 1 occasion? Never [facility] In the past 12 month s, how many times have you moved where you were living? 0 [facility] Start: 1950 Sex assigned at Not on file [facility] Start: 06-25-2025 Tobacco use and exposure Smoke less tobacco non-user [facility] (I/We) worried wheth er (my/our) food would run out before (I/we) got money to buy more. Never true [facility] Start: 06-25-2025 Tobacco Comment 06/25/25 Denies ever using tobacco/nicotine/vape [facility] Sexual Orientation Kristin diezfrancisco Kristin [place] Start: 07-30-2025 Alcoholic beverage intake Ex-drinker (finding) [facility] Start: 07-30-2025 Alcohol Comment An occasional glass of wine; none since CABG [facility] Goals Date Patient Goal Desired Activity /State Personal health goal Functional Status Date Assessment Result Facility 06-24-2025 Total score [AUDIT-C] 0 06/24/20 25 9:38 AM Carol Smith RN [facility] 06-14-2025 Functional status Bedrest [facility] Work Phone: [facility] Mental Status Date Assessment Result Facility 07-14-2025 Cognitive function Voice/Name [facility] Work Phone: 06-28-2025 Cognitive function Level Of Cons ciousness Awake;Alert;Appropriate;Follow s Commands [facility] Work Phone: 06-14-2025 Cognitive function Voice/Name [facility] Work Phone: 06-13-2025 Cognitive function Voice/Name [facility] Work Phone: 12-20-2023 Cognitive function Voice/Name [facility] Work Phone: 09-05-2022 Cognitive function Level Of Cons ciousness Awake;Alert;Appropriate;Follow s Commands [facility] Work Phone: 12-09-2021 Cognitive function Level Of Cons ciousness Awake;Alert;Appropriate [facility] Work Phone: Clinical Notes 06-30-2023 to 07-31-2025 Elva Reeder, HOLLI - PRABHJOT - 07/31/2025 11:30 AM EDTFleny Bar - 07/26/2025 9:18 AM EDT Note Date & Type Note Facility 07-31-2025 History of Presen t illness Narrative Images from the original note were not included. [facility] Group: [facility] [address] [facility] [address] Dept: [phone] Dept Loc: [phone] Visit type: Established patient - Virtual Surgery/Procedure: s/p CABGx3 (VICK to LAD, rsvg to OM, rsvg RPDA) left lower leg EVH with Dr. Johnston on 06/18/25 Reason for Visit: follow up Assessment/Plan Diagnosis: MVCAD s/p CABG NSTEMI HLD Raynaud's Osteoporosis Anxiety/depression Chronic back pain IBS/constipation Hypothyroidism Plan: POD#43 Day from Discharge (06/22/25): #39 -Reviewed current meds: Continue ASA, statin, BB, plavix -Surgical Incisions: Per patient healing appropriately, well approximated, no s/s of infection Swelling at EVH site - improving -Physical therapy as outlined in discharge instructions: Driving; getting ready to attend cardiac rehab -Weight restriction measures 5-8 weeks from date of surgery- 20lbs weight restriction approximate end date: -Follow up with PCP and Cards (Dr. Hong) -Plan follow up as need. Patient to call with any questions or concerns. They verbalized understanding Patient was seen today via Telehealth by agreement and consent. I used the following Telehealth technology: Audio capability only. Total length of call 9 minutes. The patient was offered and advised video for a more comprehensive evaluation, but the patient declined or was unable to use video. Patient location: Patient Location: Home. This patient encounter is appropriate and reasonable under the circumstances: patient request . The patient has been advised of the potential risks and limitations of this mode of treatment (including but not limited to the absence of in-person examination) and has agreed to be treated in a remote fashion in spite of them. Any and all of the patient's/patient's family's questions on this issue have been answered and I have made no promises or guarantees to the patient. The patient has also been advised to contact this office for worsening conditions or problems, and seek emergency medical treatment and/or call 911 if the patient deems either necessary. The patient stated that they are currently in the state [facility]. If the patient is a minor, permission has been obtained by the parent or guardian for the patient to receive medical care at this visit. Patient identification was verified at the start of the visit: yes Total time spent on this encounter: 18 Subjective HPI: 75 year old female patient with PMHx that includes CKD2, Raynaud's, anxiety/depression, IBS/constipation, GERD, fibromyalgia, hypothyroidism, chronic low back pain S/P lumbar spinal surgery that presented to [facility] on 06/14/2025 from [facility]. Patient reports worsening chest pain associated with daily walks which started approximately 1 week ago. Initially she attributed this to her prior diagnosis of GERD but when she experienced pain 06/14 that did not resolve with rest she presented to [facility]. LHC at [facility] demonstrated severe multivessel disease and she was transferred to [facility] for CABG evaluation. Agreeable to CABG, went to OR on 06/18/25. Postoperative course uncomplicated. Once medications were titrated and she was hemodynamically stable she was discharged home on POD #4 (06/22/25). Of note CXR on d/c noted small left apical ptx. No intervention done discussed with treatment team and patient. 06/24-06/27: Admission for altered mental status 07/16/25: 75 y.o. female who presents today for post op follow up. Patient is doing well back at home. She has been at a time at a another [facility] facility due to altered mental status. Facility was in [place]. She feels like she is progressing. Medications reviewed she is compliant with all medications. She does not remember the psych meds that she was started on but remembered the ones we have listed in epic. No changes to medication at this time. Per patient she has follow-up with her PCP in 2 days and psychology shortly. She does not have follow-up with Dr. Hong our office will call to help schedule. Incisions are healing appropriate with no signs of infection at this time. Left EVH site at knee with hematoma no intervention continue to monitor okay for warm compresses. Pain control not taking narcotic or OTC at this time. She would like to do cardiac rehab down at [facility]. Updated and also her neighbor who drove both of them here today for the visit. Will plan a telephone call in 2 weeks to touch base otherwise follow-up on an as-needed basis. Patient verbalized understanding will will call with any questions or concerns. 07/31/25: 75 y.o. female who was called today for post op follow up. Doing well postoperatively. No issues or concerns at this time. Has followed up with Cards and her PCP. Mentation seems to be improving. Incisions healing appropriately with no signs of infection. Driving, has cardiac rehab scheduled. Medications reviewed. No needs at this time. Will plan follow up on as needed basis. Patient verbalized understanding will call with any questions or concerns. Objective Patient reported: none noted Wt Readings from Last 3 Encounters: 07/16/25 133 lb (60.3 kg) 06/25/25 133 lb 4.8 oz (60.5 kg) 06/22/25 138 lb 11.2 oz (62.9 kg) Physical exam deferred due to virtual visit-with audio (telephone) capabilities only Labs/Imaging/Testing: reviewed EMR, see A&P for pertinent diagnostic results related to office visit Disclaimer INFORMED CONSENT:The nature and purpose of the proposed treatment or procedure have been discussed. The risks and benefits of the proposed treatment or procedures have been reviewed. Alternatives have been reviewed in addition to the risks and benefits of not receiving treatments or undergoing procedures. Pursuant to this discussion, the patient agrees to undergo the proposed treatment or procedure. Captured images seen in this note from are not a substitute for a comprehensive interpretation of the entire data set as reflected by the interpreting physician with regard to radiology, echocardiography, and other diagnostic images. This note may have been dictated using Dragon Medical Practice Edition 2.6 and/or Comecer Voice Recognition Feature. The document was proofread, however unrecognized voice recognition gum worker errors may be present. documented in this encounter [facility] 07-26-2025 History of Presen t illness Narrative 07/26/2025 Community Health Worker Patient active with: [facility] RN JORDIN Carroll Reason for Call: [facility] outreach Chart review completed. Follow up Appointments 07/31 Cardiothoracic Surgery Called patient 3x attempts, number was unavailable per teams. Unable to lvm. Outreach scheduled for [facility] follow up. documented in this encounter [facility] 07-19-2025 Progress note Note Date/Time July 19, 2025 10:05am [facility] [address] [place] [address] OFFICE VISIT Date of Service: 07/19/25 MR#: [id number] Acct: [id number] Name: RICHIE ARMAS Rep #: [id number] : 1950 Provider: BRAYDEN Campos Age/Sex: 75/F Location: [facility] Status: Signed HPI HPI History of Present Illness Details: Richie Armas is a 75-year-old female who presents to office today for follow-up for monitoring her cardiovascular health. She presented to [facility] 06/13/2025 with concerns of exertional chest pain noticed about 2 weeks prior to presentation and noticed chest pain at rest which prompted her to seek out emergency evaluation. Her troponin was elevated at 93 and EKG in the ER demonstrated normal sinus rhythm with nonspecific ST?T wave changes new from prior. Patient was initiated on aspirin, heparin and nitroglycerin. She underwent cardiac catheterization 06/14/2025 and this demonstrated triple-vessel disease with a subtotally occluded RCA, 70% stenosis in the LAD and a high-gradeobtuse marginal vessel. Ejection fraction was borderline at 50% with anterolateral hypokinesis. She was transferred to [facility] for further evaluation for CABG. Echocardiogram 06/15/2025 demonstrated ejection fraction of 50%. Patient underwent CABG 06/18/2025, immediate postoperative course was uncomplicated otherthan small left apical pneumothorax noted on chest x-ray prior to discharge that patient did not undergo intervention for and patient was discharged home 06/22/2025. She was discharged home on aspirin 81 mg daily, Plavix, metoprolol succinate, ezetimibe, rosuvastatin and nifedipine. Patient reports 4 days after returning home, she experienced slurred speech concerning for stroke and she presented to [facility] for emergency room evaluation. She reports understanding that workup was ultimately negative for an acute stroke; however, there were a few small lesions that were felt to be chronic/oldstroke. She believes this was secondary to taking tizanidine. Patient discharged home. Several days later, patient experienced what she reports is psychosis and reports being admitted to a facility for this for 10 days. She was evaluated in the emergency department 07/14/2025 with acute concerns of chest pain times a few hours after an argument with her mother. She reported this pain was slightly different from her previous chest pain prior to her CABG. Workup in the emergency department demonstrated troponin 19?24, symptoms improved and patient was discharged home. Upon presentation today, patient reports difficulties sleeping and feels this has worsened since her CABG. She was previously taking trazodone; however, is not currently taking this. She is working with her PCP to address her sleeping concerns. She reports fatigue and weakness after surgery but feels this has been improving since being home. She has noticed LLE edema since her CABG. She notices a cough in the middle of the night that is productive and reports this is chronic. She reports episodes of lightheadedness that have improved since shehas adjusted her BP meds and recommendations from her PCP. Patient reports all scars appear to be healing well. She denies an significant erythema, warmth or discharge. Further ROS below. 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 Required: No Accompanied by: Is patient in pain?: Yes (generalized joint) Pain scale (1-10): 3 Allergies cyclobenzaprine HCl (From Flexeril) Adverse Reaction (Verified 07/19/25 09:08) Other promethazine (From Phenergan) Adverse Reaction (Verified 07/19/25 09:08) Other Medications ?Medication ?Instructions ?Recorded ?Confirmed ?Type alendronate 70 mg tablet 70 mg PO .weekly 01/25/25 History levothyroxine 75 mcg tablet 75 mcg PO DAILY 01/25/25 0 07/19/25 History nifedipine 30 mg tablet,extended 30 mg PO DAILY 07/19/25 History release venlafaxine 37.5 mg 37.5 mg PO DAILY depression 06/13/25 07/19/25 History capsule,extended release 24 hr acetaminophen 500 mg tablet 1,000 mg PO Q8H PRN 07/19/25 History amitriptyline 50 mg tablet 100 mg PO QHS 07/19/2506/22 History aspirin 81 mg chewable tablet 1 tab PO QDAY 07/19/25 0 07/19/25 History azelastine 137 mcg (0.1 %) nasal 1 spray intranasal BI D 07/19/25 07/19/25 History spray cholecalciferol (vitamin D3) 25 25 mcg PO QDAY 5 07/19/25 History mcg (1,000 unit) tablet clopidogrel 75 mg tablet 75 mg PO QDAY 07/19/2507/19 History denosumab 60 mg/mL subcutaneous 60 mg subcut [id number] 07/19/25 07/19/25 History syringe (Prolia) duloxetine 20 mg capsule,delayed 20 mg PO QDAY 5 07/19/25 History release ezetimibe 10 mg tablet 10 mg PO QHS 07/19/25 History ipratropium bromide 21 mcg (0.03 2 spray intranasal Q6 H PRN 07/19/25 07/19/25 History %) nasal spray lidocaine 4 % topical patch 1 patch topical QDAY PRN 0 07/19/25 07/19/25 History (Aspercreme (lidocaine)) lorazepam 1 mg tablet 0.5 mg PO QHS 07/19/2507/19 History metoprolol succinate 50 mg 50 mg PO QDAY 07/19/2506/22 History tablet,extended release 24 hr ondansetron 4 mg disintegrating 4 mg PO Q8H PRN 07/19/25 History tablet pantoprazole 20 mg tablet,delayed 20 mg PO BID 5 07/19/25 History release rosuvastatin 40 mg tablet 40 mg PO QDAY 07/19/2507/19 History tizanidine 4 mg tablet 4 mg PO Q8H PRN 07/19/25 History Have you fallen in the past year?: Yes [facility] Medical History CAD (coronary artery disease) NSTEMI, initial episode of care Hypercholesterolemia Exertional angina Elevated troponin ACS (acute coronary syndrome) Chronic idiopathic constipation CKD (chronic kidney disease), stage II GERD (gastroesophageal reflux disease) IBS (irritable bowel syndrome) HTN (hypertension) Raynaud disease Fibromyalgia Cataract High cholesterol Hypothyroidism Surgical History Previous back surgery H/O wrist surgery History of ankle surgery H/O shoulder surgery Family History Father Heart disease CAD (coronary artery disease) Hypertension Myocardial infarction HLD (hyperlipidemia) Mother Hypertension Social History household members: spouse Smoking Status: Never smoker alcohol intake: current alcohol intake frequency: holidays/special occasions only substance use type: does not use ROS Const Const: Positive for fatigue, weakness and difficulty sleeping; Negative for headache(s), frequent falls, night sweats, daytime sleepiness, excessive sweating or weight gain Eyes Eyes: Negative for change in vision ENT ENT: Negative for headache(s), dizziness, Nosebleed/epistaxis or balance problems Cardio Chest Pain: No Palpitations: No Edema: Left (s/p CABG) and None Muscle aches with walking: None Additional Details: [facility] ED visit for CP on 07/14/25. Denies any more episodes. Resp Respiratory: Positive for Cough (During night when laying down, throat congestion); Negative for SOB with activity, SOB at rest, SOB orthopnea\SOB lying down, chestcongestion, wheezing, crackles or paroxysmal nocturnal dyspnea GI GI: Negative nausea, vomiting, heartburn or black,tarry stools : Negative for hematuria or frequent nighttime urination/ nocturia Musc Musc: Positive for joint pain; Negative for muscle aches/ myalgia, muscle weakness or balance problems Skin Skin: Negative non-healing lesions, rash, unusual bruising or wounds Neuro Neuro: Positive for lightheadedness (few episodes over last week, improved with BP med) and weakness; Negative for dizziness, near syncope, syncope, orthostatic symptoms, frequent falls or headache(s) Nico Hematologic/Lymphatic: Positive for easy bruising; Negative for easy bleeding Endo Endo: Positive for fatigue; Negative for excessive sweating Psych Psych: Positive for anxiety; Negative for depression Allergy Allergy/Immunology: Negative for hives and Negative for rash Cardiology Exam Const Appearance: cooperative, comfortable, no acute distress and well developed; Negative diaphoretic or ill appearing Nutritional Appearance: average body habitus Orientation: alert and oriented x3 Ambulating without assistive device Head Head: normal to inspection, normocephalic and atraumatic Ears: hearing grossly normal bilaterally Nose: external nose normal and Negative epistaxis Face and Sinus: face symmetric Eyes General: appearance normal, both eyes and all related structures Eyelids: eyelids normal Conjunctivae: conjunctivae normal; Negative scleral icterus EOM: EOM intact bilaterally Neck Neck: no JVD Carotids: normal carotid upstroke; Negative bruit Neck Mass: Negative Neck mass Chest Chest inspection: normal respiratory effort; Negative respiratory distress, audible wheezes or tachypneic Auscultation: Bilateral: Clear to Auscultation Scar on chest appears to be healing well, no significant erythema or discharge Cardio Rate: regular rate Rhythm: regular rhythm Heart sounds: S1 normal and S2 normal; Negative rub, gallop or murmur Neuro General: patient alert, patient awake, patient oriented x3 and moves all extremities Skin Skin: no rashes or lesions noted Extremities Pulses: Normal: Right Posterior Tibial Pulse, Left Posterior Tibial Pulse, RightRadial Pulse and Left Radial Pulse compression stockings on b/l LE. left lower extremity with trace swelling Psych Psychological: normal affect Supplemental Info Supplemental Information Echocardiogram 06/15/2025 Interpretation summary Left ventricle: Left ventricle size is normal. Normal wall thickness. Normal left ventricular systolic function. EF by visual approximation is 50%. EF by 2D Mustafa biplane is 63%. See diagram for wall motion findings. Right ventricle: Right ventricle size is normal. Normal systolic function. Aortic valve: Mildly thickened cusps. Mildly calcified cusps. Cusp sclerosis. Trace regurgitation. No stenosis. Mitral valve: Mildly thickened leaflets. Calcified leaflets. Annular calcification. Mild 1+ regurgitation. No stenosis noted. Tricuspid valve: RVSP is 22 mmHg. Left atrium: Left atrium size is normal. Right atrium: Right atrium size is normal. Aorta: Normal size sinuses of Valsalva and ascending aorta. No significant valvular abnormalities Echo Complete 06/13/2025 Interpretation Summary Normal LV size. The left ventricular ejection fraction is 45 %. Stage 1 diastolic dysfunction. Mild (1+) tricuspid valve insufficiency. There are regional wall motion abnormalities as specified. Cardiac catheterization 06/14/2025 CONCLUSIONS Severe triple-vessel disease with subtotally occluded right coronary artery high-grade obtuse marginal vessel moderately severe left anterior descending artery with [id number] collaterals and mild left ventricular systolic dysfunction. RECOMMENDATIONS Surgery consult for coronary revascularization CORONARY ANGIOGRAPHY DOMINANCE: Right Dominant LEFT HEART [...] subtotally occluded in the midsegment with distal [id number] collaterals noted. Labs: LDL Cholesterol 203 mg/dL (0-130) H HDL Cholesterol 96 mg/dL (40-) Cholesterol 280 mg/dL (<=200) H Triglycerides 89 mg/dL (-199) Diagnostics: Electrocardiogram Echocardiogram Cardiac Catheterization Chest X-Ray Abdomen Ultrasound Abdomen/Pelvis CT Pulmonary: No Data to Display Past Visits: Cardiology Visit 07/19/25 Assessment and Plan Assessment and Plan (1) CAD (coronary artery disease): Status: Acute Qualifiers: Coronary Disease-Associated Artery/Lesion type: [place] artery [place] vs. transplanted heart: [place] heart Associated angina: without angina Qualified Code(s): I25.10 - Atherosclerotic heart disease of [place] coronary artery without angina pectoris Plan: Patient was recently diagnosed with coronary artery disease. She presented to the emergency department 06/09/2025 with acute concerns of chest pain and underwent heart catheterization which demonstrated triple-vessel disease and [facility] She underwent CABG x3 06/18/25. She denies any acute concerns of incision sites healing. She was initiated on rosuvastatin and ezetimibe along with aspirin, Plavix and metoprolol. Plan: Patient is interested in participating in cardiac rehab. Will have ordersplaced and arrange for this. Recommend patient continue current medical management. Recommend patient notify our office with any persistently low heartrates or blood pressure readings with associated lightheadedness or dizziness. Recommend patient notify our office if chest pain returns. (2) History of coronary artery bypass graft x 3: Status: Acute Plan: Patient underwent CABG x3 06/18/25. Patient underwent left internal mammary artery to the LAD in the left lower extremity saphenous vein to the obtuse marginal and right posterior descending. Recommend patient continue current medical management. (3) Hyperlipidemia: Status: Acute Qualifiers: Hyperlipidemia type: other hyperlipidemia Qualified Code(s): E78.49 - Other hyperlipidemia Plan: Patient has a history of hyperlipidemia. Most recent lipid panel 06/14/2025 demonstrates total cholesterol 280, triglyceride 89, LDL 166 and HDL 96. Patient reports previously trying statin therapy; however, was intolerant secondary to muscle aches and prior to her recent presentation, she was not on any lipid-lowering agents. Following her CABG, she was initiated on ezetimibe and rosuvastatin and has been tolerating these. Plan: Will recheck lipid and liver panel in approximately 6 weeks. LDL goal of 70 or lower. Recommend she continue ezetimibe and rosuvastatin. Encourage lifestyle and risk factor modifications. Orders: Orders Lipid Profile 6 Weeks I25.10 - Atherosclerotic heart disease of [place] coronaryartery without angina pectoris Liver Profile 6 Weeks I25.10 - Atherosclerotic heart disease of [place] coronaryartery without angina pectoris Thyroid Stim Hormone (TSH) 6 Weeks E03.9 - Hypothyroidism, unspecified Plan 1. Will have orders placed for cardiac rehab 2. Would like to obtain lipid and liver profile in approximately 6 weeks given recent initiation of lipid-lowering agents. LDL goal of 70 or lower. Patient will follow-up in 3 months or sooner, if needed. Thank you for allowing me to participate in the care of your patient. Please don't hesitate to call if any issues arise. This note was generated using a voice recognition system and there may be incorrect words, spelling, or punctuation that were not noted when reviewing theoffice note prior to saving. Portions of this documentation were copied and pasted from previous office visitnotes to provide a cohesive continuity of the history. The note has been reviewed, edited, and updated, as necessary. Plan Details Follow Up: 3 Months (SRD) 9 Months (FLOWER GROWER) Coding Level of Care Code Off vis,est,level 3 Diagnoses Coronary artery disease involving [place] coronary artery of [place] heart withoutangina pectoris I25.10 Coronary Disease-Associated Artery/Lesion type: [place] artery [place] vs. transplanted heart: [place] heart Associated angina: without angina History of coronary artery bypass graft x 3 Z95.1 Other hyperlipidemia E78.49 Hyperlipidemia type: other hyperlipidemia Coding Level of Care Code Off vis,est,level 3 Diagnoses Coronary artery disease involving [place] coronary artery of [place] heart withoutangina pectoris I25.10 Coronary Disease-Associated Artery/Lesion type: [place] artery [place] vs. transplanted heart: [place] heart Associated angina: without angina History of coronary artery bypass graft x 3 Z95.1 Other hyperlipidemia E78.49 Hyperlipidemia type: other hyperlipidemia Clinical Quality Measures Falls Risk Screening/Assistive Devices Have you fallen in the past year?: Yes 07/19/25 1104 <Electronically signed by Bong OWEN> Date _ Bong OWEN 07/22/25 0839<Electronically signed by Edil Hong MD> Cosigner Signature: Date (if applicable) Edil Hong MD CC: Dr. Narinder Crum MD ~ [facility] Work Phone: [phone] [facility] [address] [place], [place] [address] OFFICE VISIT Date of Service: 07/19/25 MR#: [id number] Acct: [id number] Name: RICHIE ARMAS Rep #: [id number] : 1950 Provider: BRAYDEN Campos Age/Sex: 75/F Location: [facility] Status: Signed HPI HPI History of Present Illness Details: Richie Armas is a 75-year-old female who presents to office today for follow- up for monitoring her cardiovascular health. She presented to [facility] 06/13/2025 with concerns of exertional chest pain noticed about 2 weeks prior to presentation and noticed chest pain at rest which prompted her to seek out emergency evaluation. Her troponin was elevated at 93 and EKG in the ER demonstrated normal sinus rhythm with nonspecific ST?T wave changes new from prior. Patient was initiatedon aspirin, heparin and nitroglycerin. She underwent cardiac catheterization 06/14/2025 and this demonstrated triple-vessel disease with a subtotally occluded RCA, 70% stenosis in the LAD and a high-gr adeobtuse marginal vessel. Ejection fraction was borderline at 50% with anterolateral hypokinesis. She was transferred to [facility] for further evaluation for CABG. Echocardiogram 06/15/2025 demonstrated ejection fraction of 50%. Patient underwent CABG 06/18/2025, immediate postoperative course was uncomp licated otherthan small left apical pneumothorax noted on chest x-ray prior to discharge that patient did not undergo intervention for and patient was discharged home 06/22/2025. She was discharged home on aspirin 81 mg daily, Plavix, metoprolol succinate, ezetimibe, rosuvastatin and nifedipine. Patient reports 4 days after returning home, she experienced slurred speech concerning for stroke and she presented to [facility] for emergency room evaluation. She reports understanding that workup was ultimately negative for an acute stroke; however, there were a few small lesions that were felt to be chronic/oldstroke. She believes this was secondary to taking tizanidine. Patient discharged home. Several days later, patient experienced what she reports is psychosis and reports being admitted to [facility] for this for 10 days. She was evaluated in the emergency department 07/14/2025 with acute concerns of chest pain times a few hours after an argument with her mother. She reported this pain was slightly different from her previous chest pain prior to her CABG. Workup in the emergency department demonstrated troponin 19?24, symptoms improved and patient was discharged home. Upon presentation today, patient reports difficulties sleeping and feels this has worsened since her CABG. She was previously taking trazodone; however, is not currently taking this. She is working with her PCP to address her sleeping concerns. She reports fatigue and weakness after surgery but feels this has been improving since being home. She has noticed LLE edema since her CABG. She notices acough in the middle of the night that is productive and reports this is chronic. She reports episodes of lightheadedness that have improved since shehas adjusted her BP meds and recommendations from her PCP. Patient reports all scars appear to be healing well. She denies an significant erythema, warmth or discharge. Further ROS below. Intake Vital Signs 06/14/25 10:38 07/19/25 08:50 Height 5 ft 3 in 5 ft 3 in Weight: 136 lb BMI 24.0 BP 114/69 Blood Pressure Location Lt brachial Position Sitting Respiration 14 Pulse 71 Pulse Source Monitor Intake Visit Reasons: S/P KHRIS 06/21 [employer] Required: No Accompanied by: Is patient in pain?: Yes (generalized joint) Pain scale (1-10): 3 Allergies cyclobenzaprine HCl (From Flexeril) Adverse Reaction (Verified 07/19/25 09:08) Other promethazine (From Phenergan) Adverse Reaction (Verified 07/19/25 09:08) Other Medications ?Medication ?Instructions ?Recorded ?Confirmed ?Type alendronate 70 mg tablet 70 mg PO .weekly 01/25/25 History levothyroxine 75 mcg tablet 75 mcg PO DAILY 01/25/25 0 07/19/25 History nifedipine 30 mg tablet,extended 30 mg PO DAILY 07/19/25 History release venlafaxine 37.5 mg 37.5 mg PO DAILY depression 06/13/25 07/19/25 History capsule,extended release 24 hr acetaminophen 500 mg tablet 1,000 mg PO Q8H PRN 07/19/25 History amitriptyline 50 mg tablet 100 mg PO QHS 07/19/2506/22 History aspirin 81 mg chewable tablet 1 tab PO QDAY 07/19/25 0 07/19/25 History azelastine 137 mcg (0.1 %) nasal 1 spray intranasal BI D 07/19/25 07/19/25 History spray cholecalciferol (vitamin D3) 25 25 mcg PO QDAY 5 07/19/25 History mcg (1,000 unit) tablet clopidogrel 75 mg tablet 75 mg PO QDAY 07/19/2507/19 History denosumab 60 mg/mL subcutaneous 60 mg subcut [id number] 07/19/25 07/19/25 History syringe (Prolia) duloxetine 20 mg capsule,delayed 20 mg PO QDAY 5 07/19/25 History release ezetimibe 10 mg tablet 10 mg PO QHS 07/19/25 History ipratropium bromide 21 mcg (0.03 2 spray intranasal Q6 H PRN 07/19/25 07/19/25 History %) nasal spray lidocaine 4 % topical patch 1 patch topical QDAY PRN 0 07/19/25 07/19/25 History (Aspercreme (lidocaine)) lorazepam 1 mg tablet 0.5 mg PO QHS 07/19/2507/19 History metoprolol succinate 50 mg 50 mg PO QDAY 07/19/2506/22 History tablet,extended release 24 hr ondansetron 4 mg disintegrating 4 mg PO Q8H PRN 07/19/25 History tablet pantoprazole 20 mg tablet,delayed 20 mg PO BID 07/19/25 History release rosuvastatin 40 mg tablet 40 mg PO QDAY 07/19/2507/19 History tizanidine 4 mg tablet 4 mg PO Q8H PRN 07/19/25 History Have you fallen in the past year?: Yes PFSH Medical History CAD (coronary artery disease) NSTEMI, initial episode of care Hypercholesterolemia Exertional angina Elevated troponin ACS (acute coronary syndrome) Chronic idiopathic constipation CKD (chronic kidney disease), stage II GERD (gastroesophageal reflux disease) IBS (irritable bowel syndrome) HTN (hypertension) Raynaud disease Fibromyalgia Cataract High cholesterol Hypothyroidism Surgical History Previous back surgery H/O wrist surgery History of ankle surgery H/O shoulder surgery Family History Father Heart disease CAD (coronary artery disease) Hypertension Myocardial infarction HLD (hyperlipidemia) Mother Hypertension Social History household members: spouse Smoking Status: Never smoker alcohol intake: current alcohol intake frequency: holidays/special occasions only substance use type: does not use ROS Const Const: Positive for fatigue, weakness and difficulty sleeping; Negative for headache(s), frequent falls, night sweats, daytime sleepiness, excessive sweating or weight gain Eyes Eyes: Negative for change in vision ENT ENT: Negative for headache(s), dizziness, Nosebleed/epistaxis or balance problems Cardio Chest Pain: No Palpitations: No Edema: Left (s/p CABG) and None Muscle aches with walking: None Additional Details: [facility] ED visit for CP on 07/14/25. Denies any more episodes. Resp Respiratory: Positive for Cough (During night when laying down, throat congestion); Negative for SOB with activity, SOB at rest, SOB orthopnea\SOB lying down, chestcongestion, wheezing, crackles or paroxysmal nocturnal dyspnea GI GI: Negative nausea, vomiting, heartburn or black,tarry stools : Negative for hematuria or frequent nighttime urination/ nocturia Musc Musc: Positive for joint pain; Negative for muscle aches/ myalgia, muscle weakness or balance problems Skin Skin: Negative non-healing lesions, rash, unusual bruising or wounds Neuro Neuro: Positive for lightheadedness (few episodes over last week, improved with BP med) and weakness; Negative for dizziness, near syncope, syncope, orthostatic symptoms, frequent falls or headache(s) Nico Hematologic/Lymphatic: Positive for easy bruising; Negative for easy bleeding Endo Endo: Positive for fatigue; Negative for excessive sweating Psych Psych: Positive for anxiety; Negative for depression Allergy Allergy/Immunology: Negative for hives and Negative for rash Cardiology Exam Const Appearance: cooperative, comfortable, no acute distress and well developed; Negative diaphoretic or ill appearing Nutritional Appearance: average body habitus Orientation: alert and oriented x3 Ambulating without assistive device Head Head: normal to inspection, normocephalic and atraumatic Ears: hearing grossly normal bilaterally Nose: external nose normal and Negative epistaxis Face and Sinus: face symmetric Eyes General: appearance normal, both eyes and all related structures Eyelids: eyelids normal Conjunctivae: conjunctivae normal; Negative scleral icterus EOM: EOM intact bilaterally Neck Neck: no JVD Carotids: normal carotid upstroke; Negative bruit Neck Mass: Negative Neck mass Chest Chest inspection: normal respiratory effort; Negative respiratory distress, audible wheezes or tachypneic Auscultation: Bilateral: Clear to Auscultation Scar on chest appears to be healing well, no significant erythema or discharge Cardio Rate: regular rate Rhythm: regular rhythm Heart sounds: S1 normal and S2 normal; Negative rub, gallop or murmur Neuro General: patient alert, patient awake, patient oriented x3 and moves all extremities Skin Skin: no rashes or lesions noted Extremities Pulses: Normal: Right Posterior Tibial Pulse, Left Posterior Tibial Pulse, RightRadial Pulse and Left Radial Pulse compression stockings on b/l LE. left lower extremity with trace swelling Psych Psychological: normal affect Supplemental Info Supplemental Information Echocardiogram 06/15/2025 Interpretation summary Left ventricle: Left ventricle size is normal. Normal wall thickness. Normal left ventricular systolic function. EF by visual approximation is 50%. EF by 2D Mustafa biplane is 63%. See diagram for wall motion findings. Right ventricle: Right ventricle size is normal. Normal systolic function. Aortic valve: Mildly thickened cusps. Mildly calcified cusps. Cusp sclerosis. Trace regurgitation. No stenosis. Mitral valve: Mildly thickened leaflets. Calcified leaflets. Annular calcification. Mild 1+ regurgitation. No stenosis noted. Tricuspid valve: RVSP is 22 mmHg. Left atrium: Left atrium size is normal. Right atrium: Right atrium size is normal. Aorta: Normal size sinuses of Valsalva and ascending aorta. No significant valvular abnormalities Echo Complete 06/13/2025 Interpretation Summary Normal LV size. The left ventricular ejection fraction is 45 %. Stage 1 diastolic dysfunction. Mild (1+) tricuspid valve insufficiency. There are regional wall motion abnormalities as specified. Cardiac catheterization 06/14/2025 CONCLUSIONS Severe triple-vessel disease with subtotally occluded right coronary artery high-grade obtuse marginal vessel moderately severe left anterior descending artery with [id number] collaterals and mild left ventricular systolic dysfunction. RECOMMENDATIONS Surgery consult for coronary revascularization CORONARY ANGIOGRAPHY DOMINANCE: Right Dominant LEFT HEART [...] subtotally occluded in the midsegment with distal [id number] collaterals noted. Labs: LDL Cholesterol 203 mg/dL (0-130) H HDL Cholesterol 96 mg/dL (40-) Cholesterol 280 mg/dL (<=200) H Triglycerides 89 mg/dL (-199) Diagnostics: Electrocardiogram Echocardiogram Cardiac Catheterization Chest X-Ray Abdomen Ultrasound Abdomen/Pelvis CT Pulmonary: No Data to Display Past Visits: Cardiology Visit 07/19/25 Assessment and Plan Assessment and Plan (1) CAD (coronary artery disease): Status: Acute Qualifiers: Coronary Disease-Associated Artery/Lesion type: [place] artery [place] vs. transplanted heart: nativeheart Associated angina: without angina Qualified Code(s): I25.10 - Atherosclerotic heart disease of [place] coronary artery without angina pectoris Plan: Patient was recently diagnosed with coronary artery disease. She presented to the emergency department 06/09/2025 with acute concerns of chest pain and underwent heart catheterization which demonstrated triple-vessel disease and [facility] She underwent CABG x3 06/18/25. She denies any acute concerns of incision sites healing. She was initiated on rosuvastatin and ezetimibe along withaspirin, Plavix and metoprolol. Plan: Patient is interested in participating in cardiac rehab. Will have ordersplaced and arrange for this. Recommend patient continue current medical management. Recommend patient notify our office with any persistently low heartrates or blood pressure readings with associated lightheadedness or di zziness. Recommend patient notify our office if chest pain returns. (2) History of coronary artery bypass graft x 3: Status: Acute Plan: Patient underwent CABG x3 06/18/25. Patient underwent left internal mammary artery to the LAD in theleft lower extremity saphenous vein to the obtuse marginal and right posterior descending. Recommend patient continue current medical management. (3) Hyperlipidemia: Status: Acute Qualifiers: Hyperlipidemia type: other hyperlipidemia Qualified Code(s): E78.49 - Other hyperlipidemia Plan: Patient has a history of hyperlipidemia. Most recent lipid panel 06/14/2025 demonstrates total cholesterol 280, triglyceride 89, LDL 166 and HDL 96. Patient reports previously trying statin therapy; however, was intolerant secondary to muscle aches and prior to her recent presentation, she was not on any lipid- lowering agents. Following her CABG, she was initiated on ezetimibe and rosuvastatin andhas been tolerating these. Plan: Will recheck lipid and liver panel in approximately 6 weeks. LDL goal of 70 or lower. Recommend she continue ezetimibe and rosuvastatin. Encourage lifestyle and risk factor modifications. Orders: Orders Lipid Profile 6 Weeks I25.10 - Atherosclerotic heart disease of [place] coronaryartery without angina pectoris Liver Profile 6 Weeks I25.10 - Atherosclerotic heart disease of [place] coronaryartery without angina pectoris Thyroid Stim Hormone (TSH) 6 Weeks E03.9 - Hypothyroidism, unspecified Plan 1. Will have orders placed for cardiac rehab 2. Would like to obtain lipid and liver profile in approximately 6 weeks given recent initiation oflipid-lowering agents. LDL goal of 70 or lower. Patient will follow-up in 3 months or sooner, if needed. Thank you for allowing me to participate in the care of your patient. Please don't hesitate to callif any issues arise. This note was generated using a voice recognition system and there may be incorrect words, spelling, or punctuation that were not noted when reviewing theoffice note prior to saving. Portions of this documentation were copied and pasted from previous office visitnotes to provide a cohesive continuity of the history. The note has been reviewed, edited, and updated, as necessary. Plan Details Follow Up: 3 Months (SRD) 9 Months (FLOWER GROWER) Coding Level of Care Code Off vis,est,level 3 Diagnoses Coronary artery disease involving [place] coronary artery of [place] heart withoutangina pectoris I25.10 Coronary Disease-Associated Artery/Lesion type: [place] artery [place] vs. transplanted heart: [place] heart Associated angina: without angina History of coronary artery bypass graft x 3 Z95.1 Other hyperlipidemia E78.49 Hyperlipidemia type: other hyperlipidemia Coding Level of Care Code Off vis,est,level 3 Diagnoses Coronary artery disease involving [place] coronary artery of [place] heart withoutangina pectoris I25.10 Coronary Disease-Associated Artery/Lesion type: [place] artery [place] vs. transplanted heart: [place] heart Associated angina: without angina History of coronary artery bypass graft x 3 Z95.1 Other hyperlipidemia E78.49 Hyperlipidemia type: other hyperlipidemia Clinical Quality Measures Falls Risk Screening/Assistive Devices Have you fallen in the past year?: Yes 07/19/25 1104 r PA> Date _ Bong Demiter PA 07/22/25 0839 Cosigner Signature: Date (if applicable) Edil Hong MD CC: Dr. Narinder Crum MD ~ [facility]08-27-2025 History of Present illness Narrative* Janelle Carroll RN - 07/17/2025 10:37 AM EDT Images from the original note were not included. EMR reviewed. Patient enrolled in [facility] 90-day BPCI Program post-hospital discharge 06/22/25 Dx: NSTEMI, CABGx3 -06/18 Patient was readmitted 06/24 to 06/27 for - Toxic and metabolic encephalopathy - likely multifactorial due to polypharmacy, hospital delirium/sundowning, possible underlying undiagnosed dementia Acute L cortical CVA Elevated troponin, flat trend, in the setting of recent CABG Lactic acidosis DM2 with hyperglycemia Anxiety Cognitive decline 14-day post hospital discharge outreach made by CHW LVM introducing self and role left contact number to return call. SW consult for SDOH assessment and any additional resources call made and LVM to return call on 07/11/21. Referral to Direction Home placed in hospital per notes they contacted son and he will reach out when patient is ready for assessment. 21-day BPCI outreach LVM to return call. Patient had CTS follow up visit 07/16/25 (note copied below). Per note patient doing well back at home with [employer] has a neighbor that assists with transportation. Patient pain under control with OTC meds incisions healing has a hematoma on left knee at EVH site watching closely. CM to continue to outreach and follow for 90 days post hospital discharge. 30-d ays outreach scheduled. Office Visit 07/16/2025 [facility] Cardiovascular Thoracic Surgery - HOLLI Gomez CNP Cardiothoracic Surgery S/P CABG (coronary artery bypass graft) +1 more Dx Post-op Reason for Visit Progress Notes HOLLI Marr CNP (Nurse Practitioner) Cardiothoracic Surgery Expand All Collapse All [facility] Medical Group: [facility] [address] [place] [address] Dept: [phone] Dept Loc: [phone] Visit type: Established patient - in person Surgery/Procedure: s/p CABGx3 (VICK to LAD, rsvg to OM, rsvg RPDA) left lower leg EVH with Dr. Johnston on 06/18/25 Reason for Visit: post op follow up Assessment/Plan Diagnosis: MVCAD s/p CABG NSTEMI HLD Raynaud's Osteoporosis Anxiety/depression Chronic back pain IBS/constipation Hypothyroidism Plan: POD#28 Day from Discharge (06/22/25): # 24 -Reviewed current meds: Continue ASA, statin, BB, plavix -Surgical Incisions: healing appropriately, well approximated, no s/s of infection Swelling at EVH site - slight hematoma - no intervention at this time -Physical therapy as outlined in discharge instructions: Not ready for Cardiac Rehab Not ready to drive -Weight restriction measures 1-4 weeks from date of surgery- 10lbs weight restriction: 07/16/25 5-8 weeks from date of surgery- 20lbs weight restriction approximate end date: -Follow up with PCP and Cards (Dr. Hong) -Plan follow up two week virtual. Patient to call with any questions or concerns. They verbalized understanding Subjective HPI: 75 year old female patient with PMHx that includes CKD2, Raynaud's, anxiety/depression, IBS/constipation, GERD, fibromyalgia, hypothyroidism, chronic low back pain S/P lumbar spinal surgery [facility] from [facility]. Patient reports worsening chest pain associated with daily walks which started approximately 1 week ago. Initially she attributed this to her prior diagnosis of GERD but when she experienced pain 06/14 that did not resolve with rest she presented to [facility] ED. LHC at [facility] demonstrated severe multivessel disease and she was transferred to [facility] for CABG evaluation. Agreeable to CABG, went to OR on 06/18/25. Postoperative course uncomplicated. Once medications were titrated and she was hemodynamically stable she was discharged home on POD #4 (06/22/25). Of note CXR on d/c noted small left apical ptx. No intervention done discussed with treatment team and patient. 06/24-06/27: Admission for altered mental status 07/16/25: 75 y.o. female who presents today for post op follow up. Patient is doing well back at home. She has been at a time at a another behavioral health facility due to altered mental status. Facility was in [place]. She feels like she is progressing. Medications reviewed she is compliant with all medications. She does not remember the psych meds that she was started on but remembered the ones we have listed in epic. No changes to medication at this time. Per patient she has follow-up with her PCP in 2 days and psychology shortly. She does not have follow-up with Dr. Hong our office will call to help schedule. Incisions are healing appropriate with no signs of infection at this time. Left EVH site at knee with hematoma no intervention continue to monitor okay for warm compresses. Pain control not taking narcotic or OTC at this time. [facility] [place] and also her neighbor who drove both of them here today for the visit. Will plan a telephone call in 2 weeks to touch base otherwise follow-up on an as-needed basis. Patient verbalized understanding will will call with any questions or concerns. Objective Vitals: 07/16/25 1022 BP: 134/71 Pulse: 70 Wt Readings from Last 3 Encounters: 07/16/25 133 lb (60.3 kg) 06/25/25 133 lb 4.8 oz (60.5 kg) 06/22/25 138 lb 11.2 oz (62.9 kg) Physical Exam Cardiovascular: Rate and Rhythm: Normal [...] redness, warmth, or signs of infection noted. Left EVH site: bruising/hematoma noted. Neurological: Mental Status: She is alert. Psychiatric: Behavior: Behavior is cooperative. Labs/Imaging/Testing: reviewed EMR, see A&P for pertinent diagnostic results related to office visit Disclaimer INFORMED CONSENT:The nature and purpose of the proposed treatment or procedure have been discussed.The risks and benefits of the proposed treatment or procedures have been reviewed. Alternatives have been reviewed in addition to the risks and benefits of not receiving treatments or undergoing procedures. Pursuant to this discussion, the patient agrees to undergo the proposed treatment or procedure. Captured images seen in this note from are not a substitute for a comprehensive interpretation of the entire data set as reflected by the interpreting physician with regard to radiology, echocardiography, and other diagnostic images. This note may have been dictated using [employer] Medical Practice Edition 2.6 and/or [employer] Voice Recognition Feature. The document was proofread, however unrecognized voice recognition gum worker errors may be present. Instructions Weight restriction measures 1-4 weeks from date of surgery- 10lbs weight restriction: 07/16/25 5-8 weeks from date of surgery- 20lbs weight restriction approximate end date: AVS - Outpatient (Congolese Snapshot) - Automatic Snapshot taken 07/16/2025 Additional Documentation Vitals: BP 134/71 (BP Location: Left arm, Patient Position: Sitting, BP Cuff Size: Large adult) Pulse 70 Wt 60.3 kg (133 lb) BMI 23.56 kg/m BSA 1.64 m More Vitals Encounter Info: Billing Info, History, Allergies, Detailed Report Orders Placed None Medication Changes None Medication List Visit Diagnoses S/P CABG (coronary artery bypass graft) NSTEMI (non-ST elevation myocardial infarction) (HCC) Problem List documented in this [facility]08-26-2025 History of Present illness Narrative* Elva Reeder APRN - COSTUMER - 07/16/2025 10:30 AM EDT Images from the original note were not included. [facility]: [place] [facility] [address] [facility] [address] Dept: [phone] Dept Loc: [phone] Visit type: Established patient - in person Surgery/Procedure: s/p CABGx3 (VICK to LAD, rsvg to OM, rsvg RPDA) left lower leg EVH with Dr. Johnston on 06/18/25 Reason for Visit: post op follow up Assessment/Plan Diagnosis: MVCAD s/p CABG NSTEMI HLD Raynaud's Osteoporosis Anxiety/depression Chronic back pain IBS/constipation Hypothyroidism Plan: POD#28 Day from Discharge (06/22/25): # 24 -Reviewed current meds: Continue ASA, statin, BB, plavix -Surgical Incisions: healing appropriately, well approximated, no s/s of infection Swelling at EVH site - slight hematoma - no intervention at this time -Physical therapy as outlined in discharge instructions: Not ready for Cardiac Rehab Not ready to drive -Weight restriction measures 1-4 weeks from date of surgery- 10lbs weight restriction: 07/16/25 5-8 weeks from date of surgery- 20lbs weight restriction approximate end date: -Follow up with PCP and Cards (Dr. Hong) -Plan follow up two week virtual. Patient to call with any questions or concerns. They verbalized understanding Subjective HPI: 75 year old female patient with PMHx that includes CKD2, Raynaud's, anxiety/depression, IBS/constipation, GERD, fibromyalgia, hypothyroidism, chronic low back pain S/P lumbar spinal surgery that[facility]ed to [facility] on [facility]14[facility]2025 from [facility]. Patient reports worsening chest pain associated with daily walks which started approximately 1 week ago. Initially she attributed this to her prior diagnosis of GERD but when she experienced pain 06/14 that did not resolve with rest she presented to [facility] ED. LHC at [facility] demonstrated severe multivessel disease and she was transferred to [facility] for CABG evaluation. Agreeable to CABG, went to OR on 06/18/25. Postoperative course uncomplicated. Once medications were titrated and she was hemodynamically stable she was discharged home on POD #4 (06/22/25). Of note CXR on d/c noted small left apical ptx. No intervention done discussed with treatment team and patient. 06/24-06/27: Admission for altered mental status 07/16/25: 75 y.o. female who presents today for post op follow up. Patient is doing well back at home. She has been at a time at a another [facility] facility due to altered mental status. Facility was in [place]. She feels like she is progressing. Medications reviewed she is compliant with all medications. She does not remember the psych meds that she was started on but remembered the ones we have listed in epic. No changes to medication at this time. Per patient she has follow-up with her PCP in 2 days and psychology shortly. She does not have follow-up with Dr. Hong our office will call to help schedule. Incisions are healing appropriate with no signs of infection at this time. Left EVH site at knee with hematoma no intervention continue to monitor okay for warm compresses. Pain control not taking narcotic or OTC at this time. [place] and also her neighbor who drove both of them here today for the visit. Will plan a telephone call in 2 weeks to touch base otherwise follow-up on an as-needed basis. Patient verbalized understanding will will call with any questions or concerns. Objective Vitals: 07/16/25 1022 BP: 134/71 Pulse: 70 Wt Readings from Last 3 Encounters: 07/16/25 133 lb (60.3 kg) 06/25/25 133 lb 4.8 oz (60.5 kg) 06/22/25 138 lb 11.2 oz (62.9 kg) Physical Exam Cardiovascular: Rate and Rhythm: Normal [...] redness, warmth, or signs of infection noted. Left EVH site: bruising/hematoma noted. Neurological: Mental Status: She is alert. Psychiatric: Behavior: Behavior is cooperative. Labs/Imaging/Testing: reviewed EMR, see A&P for pertinent diagnostic results related to office visit Disclaimer INFORMED CONSENT:The nature and purpose of the proposed treatment or procedure have been discussed.The risks and benefits of the proposed treatment or procedures have been reviewed. Alternatives have been reviewed in addition to the risks and benefits of not receiving treatments or undergoing procedures. Pursuant to this discussion, the patient agrees to undergo the proposed treatment or procedure. Captured images seen in this note from are not a substitute for a comprehensive interpretation of the entire data set as reflected by the interpreting physician with regard to radiology, echocardiography, and other diagnostic images. This note may have been dictated using [employer] Medical Practice Edition 2.6 and/or [employer] Voice Recognition Feature. The document was proofread, however unrecognized voice recognition gum worker errors may be present. documented in this [facility]08-26-2025 Instructions* Patient Instructions* HOLLI Marr CNP - 07/16/2025 10:30 AM EDT Weight restriction measures 1-4 weeks from date of surgery- 10lbs weight restriction: 07/16/25 5-8 weeks from date of surgery- 20lbs weight restriction approximate end date: documented in this [facility]08-24-2025 Discharge summary [facility] Medical Records Department [address] [place] [address] Emergency Department Summary 07/14/25 MR#: [id number] Acct: [id number] Name: RICHIE ARMAS Rep #:[id number] : 1950 75 From: Tremaine You MD PCP: Dr. Narinder Crum MD Status:REG ER Location: ED HPI History of Present Illness Chief Complaint: Chest Pain Narrative Narrative: 75-year-old female is status post triple bypass surgery at [facility] on 729 presents withchest pain that began a few hours ago after an argument with her mother. She began feeling chest pain/pressure, lightheadedness, that was somewhat different than her previous coronary artery disease/CO over a monthago. She relates history that she had CABG surgery, and 2 weeks ago was supposed to follow-up with her surgeon, but she had been at a rehabilitation facility for psychologic and medicalreasons, but found out that the facility did not really treat medical patients. She was released recently, and has a follow-up appointment next week. She presents to the emergency department with chest pain and lightheadedness that has improved. [facility] Medical History NSTEMI, initial episode of care Hypercholesterolemia Exertional angina Elevated troponin ACS (acute coronary syndrome) Chronic idiopathic constipation CKD (chronic kidney disease), [...] Time cyclobenzaprine HCl (From AdvReac Other Verified 07/14/25 18:12 Flexeril) promethazine (From Phenergan) AdvReac Other Verified 07/14/25 18:12 Family History Father Heart disease CAD (coronary artery disease) Hypertension Myocardial infarction HLD (hyperlipidemia) Mother Hypertension Surgical History Previous back surgery H/O wrist surgery History of ankle surgery H/O shoulder surgery Social History household members: spouse Smoking Status: Never smoker alcohol intake: current alcohol intake frequency: holidays/special occasions only substance use type: does not use ROS ROS ED ROS Narrative Review of systems positive for chest pain and pressure, lightheadedness. She has had bilateral leg swelling status post CABG surgery. No exacerbating or alleviating factors. Triggered by argument with family. EXAM Physical Exam Narrative Exam Narrative: Afebrile. Vital signs noted. Nontoxic-appearing. Cardiovascular examination reveals a regular rate and rhythm. Lungs are clear to auscultation bilaterally. Abdomen soft and nontender with positive bowel sounds. No guarding or rebound. Neurological examination shows her to be awake, alert, oriented,and interactive, answering questions appropriately. Trace pedal edema bilaterally. Const Vital Signs: 07/14/25 18:12 07/14/25 19:12 07/14/25 19:17 Temperature 98.1 F Temperature Source Temporal Pulse Rate 80 68 Respiratory Rate 16 20 H Respiratory Effort Blood Pressure 152/70 H 153/62 H Blood Pressure Mean 97 92 Pulse Ox 100 100 Oxygen Delivery Method Room Air Room Air 07/14/25 19:19 07/14/25 20:00 07/14/25 21:00 Temperature Temperature Source Pulse Rate 70 69 Respiratory Rate 18 21 H Respiratory Effort Normal Non-Labored Blood Pressure 150/66 H 147/65 H Blood Pressure Mean 94 92 Pulse Ox 100 100 Oxygen Delivery Method Room Air Room Air MDM MDM MDM Narrative Medical decision making narrative: Differential diagnosis includes but not limited to ACS versus pneumonia versus pneumothorax. History and physical does not support pneumonia or pneumothorax. Her pulse ox 100% on room air without evidence of hypoxia. EKG was obtained andinterpreted by myself independently as normal sinus rhythm at 76 bpm without ectopy or acute ST changes. No STEMI. Chest pain workup was pursued. Her initial high-sensitivity troponin is 19, but she has history of CABG and coronary artery disease. In review of prior laboratory work it was elevated at 93 when she had her NSTEMI. I reviewed her laboratory work and she has a normal white count of 6.5 with hemoglobin 11.3, hematocrit 34.5, platelet count 355. Sodium normal at 135 withpotassium 4.3, BUN of 22 and creatinine 0.68, glucose 115, initial high- sensitivity troponin is 19 with repeat being 24 and acceptable delta troponin. I do not feel that she requires a 4-hour delta troponin. She feels improved. On my individualinterpretation of her chest x-ray, there is no acute process. I reviewed the radiology report whichconfirms my independent interpretation. At this point in time, I do feel she can be discharged to follow-up with her primary care physician and/or reporting manager, and her surgeon as scheduled. Return instructions to the emergency department were reviewed. Disposition is discharged home in stable condition. History & Record Review Discussion w/independent historian: Patient Additional record(s) reviewed:: Prior labs (Elevated troponin) Lab Data Attestation: I reviewed the patient's lab results. Labs: Laboratory Results - last 24 hr 07/14/25 07/14/25 18:20 20:16 WBC 6.5 RBC 3.66 L Hgb 11.3 L Hct 34.5 L MCV 94.3 MCH 30.9 MCHC 32.8 RDW Std Deviation 51.6 H RDW Coeff of Sushant 14.8 H Plt Count 355 MPV 9.9 Immature Gran % (Auto) 0.300 Neut % (Auto) 49.2 Lymph % (Auto) 38.2 Preble % (Auto) 10.6 H Eos % (Auto) 1.1 Baso % (Auto) 0.6 Absolute Neuts (auto) 3.2 Absolute Lymphs (auto) 2.48 Nucleated RBC % 0 Sodium 135 Potassium 4.3 Chloride 100 Carbon Dioxide 22.2 Anion Gap 13 BUN 22 H Creatinine 0.68 L Estim Creat Clear Calc 57.46 Est GFR (MDRD) Non-Af 91 BUN/Creatinine Ratio 31.7 H Glucose 115 H Calcium 9.4 Troponin T High Sens 19 H D Troponin T Hi Sens 2 Hr 20 H Radiography Diagnostic Testing: Clinical Impression(s) from Imaging Studies Chest X-Ray 07/14/25 19:16 IMPRESSION: No acute process is detected. [facility] Discharge Plan Triage Chief Complaint: Chest Pain ED Provider: Tremaine You Dx/Rx/DC Orders Clinical Impression: Chest pain, History of coronary artery bypass graft x 3 Instructions: ED Chest Pain, Uncertain Cause Prescriptions: No Action levothyroxine 75 mcg tablet 75 mcg PO DAILY Patient Comments: [NO ORIGINAL SIG] pantoprazole 20 mg tablet,delayed release (DR/EC) 20 mg PO QDAY nifedipine 30 mg tablet extended release 30 mg PO DAILY tramadol 50 mg tablet 50 mg PO PRN alendronate 70 mg tablet 70 mg PO .weekly Patient Comments: [NO ORIGINAL SIG] Rx Instructions: Take on Wednesdays tizanidine 4 mg tablet 4 mg PO QHS amitriptyline 50 MG tablet 50 mg PO DAILY lubiprostone 24 mcg capsule 24 mcg PO BID venlafaxine 37.5 mg capsule,extended release 24hr 37.5 mg PO DAILY Primary Care Provider: Narinder Crum Referrals: Narinder Crum MD [Primary Care Provider] - Activity Restrictions/Additional Instructions: Follow-up with your reporting manager within 1 week as needed. Follow-up with your surgeon as scheduled.Return to the emergency department with increased chest pain, new or worsening symptoms. Print Language: Congolese Disposition Disposition: Home, Self Care What to do if you have Problems For any increased pain, shortness of breath, bleeding, nausea or vomiting, chestpain, or any unexpected problems, contact your Primary Care Provider. Call [facility] ([phone]) or report tothe closest Emergency Room. Call 911 if necessary. 07/14/252119 Cosigner Signature (if applicable): CC: Dr. Narinder Crum MD ~ Signed [facility]08-24-2025 Radiology Diagnostic study note [facility] Imaging Services [address] [place] [address] Chest 1 View (Portable) MR#: [id number] Acct: [id number] Name: RICHIE ARMAS Rep #: [id number] : 1950 F 75 From: Pet er Peer DO PCP: Dr. Narinder Crum MD Status: PRE ER Study:Chest 1 View (Portable) Date of Exam: 07/14/25 Exam# [id number] Ordering Dr: Tremaine You MD PROCEDURE: CHEST 1 VIEW (PORTABLE) 07/14/2025 REASON FOR EXAM: CHEST PAIN. Open heart surgery June 18, 2025. Chest pain with shortness of breath. TECHNIQUE: Frontal view of the chest. COMPARISON: Chest radiograph June 28, 2025 FINDINGS: Hardware: Sternal wires. Heart: Normal size Lungs: Clear and expanded Bones: No aggressive bone process. Other: RAD/Chest 1 View (Portable) IMPRESSION: No acute process is detected. Reading Location: [facility] CC: Dr. Tremaine You MD; Dr. Narinder Crum MD ~ Automotive Mechanical Engineer: Signed [facility]08-24-2025 Discharge summary Author Tremaine You [facility] Note Date/Time July 14, 2025 9: 20pm [facility] Medical Records Department [address] [place] [address] Emergency Department Summary 07/14/25 MR#: [id number] Acct: [id number] Name: RICHIE ARMAS Rep #:[id number] : 1950 75 From: Tremaine You MD PCP: Dr. Narinder Crum MD Status:REG ER Location: ED HPI History of Present Illness Chief Complaint: Chest Pain Narrative Narrative: 75-year-old female is status post triple bypass surgery at [facility] on 729 presents with chest pain that began a few hours ago after an argument with her mother. She began feeling chest pain/pressure, lightheadedness, that was somewhat different than her previous coronary artery disease/CO over a monthago. She relates history that she had CABG surgery, and 2 weeks ago was supposed to follow-up with her surgeon, but she had been at a rehabilitation facility for psychologic and medical reasons, but found out that the facility did not really treat medical patients. She was released recently, and has a follow-up appointment next week. She presents to the emergency department with chest pain and lightheadedness that has improved. [facility] Medical History NSTEMI, initial episode of care Hypercholesterolemia Exertional angina Elevated troponin ACS (acute coronary syndrome) Chronic idiopathic constipation CKD (chronic kidney disease), [...] Time cyclobenzaprine HCl (From AdvReac Other Verified 07/14/25 18:12 Flexeril) promethazine (From Phenergan) AdvReac Other Verified 07/14/25 18:12 Family History Father Heart disease CAD (coronary artery disease) Hypertension Myocardial infarction HLD (hyperlipidemia) Mother Hypertension Surgical History Previous back surgery H/O wrist surgery History of ankle surgery H/O shoulder surgery Social History household members: spouse Smoking Status: Never smoker alcohol intake: current alcohol intake frequency: holidays/special occasions only substance use type: does not use ROS ROS ED ROS Narrative Review of systems positive for chest pain and pressure, lightheadedness. She has had bilateral leg swelling status post CABG surgery. No exacerbating or alleviating factors. Triggered by argument with family. EXAM Physical Exam Narrative Exam Narrative: Afebrile. Vital signs noted. Nontoxic-appearing. Cardiovascular examination reveals a regular rate and rhythm. Lungs are clear to auscultation bilaterally. Abdomen soft and nontender with positive bowel sounds. No guarding or rebound. Neurological examination shows her to be awake, alert, oriented, and interactive, answering questions appropriately. Trace pedal edema bilaterally. Const Vital Signs: 07/14/25 18:12 07/14/25 19:12 07/14/25 19:17 Temperature 98.1 F Temperature Source Temporal Pulse Rate 80 68 Respiratory Rate 16 20 H Respiratory Effort Blood Pressure 152/70 H 153/62 H Blood Pressure Mean 97 92 Pulse Ox 100 100 Oxygen Delivery Method Room Air Room Air 07/14/25 19:19 07/14/25 20:00 07/14/25 21:00 Temperature Temperature Source Pulse Rate 70 69 Respiratory Rate 18 21 H Respiratory Effort Normal Non-Labored Blood Pressure 150/66 H 147/65 H Blood Pressure Mean 94 92 Pulse Ox 100 100 Oxygen Delivery Method Room Air Room Air MDM MDM MDM Narrative Medical decision making narrative: Differential diagnosis includes but not limited to ACS versus pneumonia versus pneumothorax. History and physical does not support pneumonia or pneumothorax. Her pulse ox 100% on room air without evidence of hypoxia. EKG was obtained andinterpreted by myself independently as normal sinus rhythm at 76 bpm without ectopy or acute ST changes. No STEMI. Chest pain workup was pursued. Her initial high-sensitivity troponin is 19, but she has history of CABG and coronary artery disease. In review of prior laboratory work it was elevated at 93 when she had her NSTEMI. I reviewed her laboratory work and she has a normal white count of 6.5 with hemoglobin 11.3, hematocrit 34.5, platelet count 355. Sodium normal at 135 withpotassium 4.3, BUN of 22 and creatinine 0.68, glucose 115, initial high-sensitivity troponin is 19 with repeat being 24 and acceptable delta troponin. I do not feel that she requires a 4-hour delta troponin. She feels improved. On my individual interpretation of her chest x-ray, there is no acute process. I reviewed the radiology report which confirms my independent interpretation. At this point in time, I do feel she can be discharged to follow-up with her primary care physician and/or reporting manager, and her surgeon as scheduled. Return instructions to the emergency department were reviewed. Disposition is discharged home in stable condition. History & Record Review Discussion w/independent historian: Patient Additional record(s) reviewed:: Prior labs (Elevated troponin) Lab Data Attestation: I reviewed the patient's lab results. Labs: Laboratory Results - last 24 hr 07/14/25 07/14/25 18:20 20:16 WBC 6.5 RBC 3.66 L Hgb 11.3 L Hct 34.5 L MCV 94.3 MCH 30.9 MCHC 32.8 RDW Std Deviation 51.6 H RDW Coeff of Sushant 14.8 H Plt Count 355 MPV 9.9 Immature Gran % (Auto) 0.300 Neut % (Auto) 49.2 Lymph % (Auto) 38.2 Preble % (Auto) 10.6 H Eos % (Auto) 1.1 Baso % (Auto) 0.6 Absolute Neuts (auto) 3.2 Absolute Lymphs (auto) 2.48 Nucleated RBC % 0 Sodium 135 Potassium 4.3 Chloride 100 Carbon Dioxide 22.2 Anion Gap 13 BUN 22 H Creatinine 0.68 L Estim Creat Clear Calc 57.46 Est GFR (MDRD) Non-Af 91 BUN/Creatinine Ratio 31.7 H Glucose 115 H Calcium 9.4 Troponin T High Sens 19 H D Troponin T Hi Sens 2 Hr 20 H Radiography Diagnostic Testing: Clinical Impression(s) from Imaging Studies Chest X-Ray 07/14/25 19:16 IMPRESSION: No acute process is detected. Reading [facility] Discharge Plan Triage Chief Complaint: Chest Pain ED Provider: Tremaine You Dx/Rx/DC Orders Clinical Impression: Chest pain, History of coronary artery bypass graft x 3 Instructions: ED Chest Pain, Uncertain Cause Prescriptions: No Action levothyroxine 75 mcg tablet 75 mcg PO DAILY Patient Comments: [NO ORIGINAL SIG] pantoprazole 20 mg tablet,delayed release (DR/EC) 20 mg PO QDAY nifedipine 30 mg tablet extended release 30 mg PO DAILY tramadol 50 mg tablet 50 mg PO PRN alendronate 70 mg tablet 70 mg PO .weekly Patient Comments: [NO ORIGINAL SIG] Rx Instructions: Take on Wednesdays tizanidine 4 mg tablet 4 mg PO QHS amitriptyline 50 MG tablet 50 mg PO DAILY lubiprostone 24 mcg capsule 24 mcg PO BID venlafaxine 37.5 mg capsule,extended release 24hr 37.5 mg PO DAILY Primary Care Provider: Narinder Crum Referrals: Narinder Crum MD [Primary Care Provider] - Activity Restrictions/Additional Instructions: Follow-up with your reporting manager within 1 week as needed. Follow-up with your surgeon as scheduled. Return to the emergency department with increased chest pain, new or worsening symptoms. Print Language: Congolese Disposition Disposition: Home, Self Care What to do if you have Problems For any increased pain, shortness of breath, bleeding, nausea or vomiting, chestpain, or any unexpected problems, contact your Primary Care Provider. Call [facility] ([phone]) or report to the closest Emergency Room. Call 911 if necessary. 07/14/252119 <Electronically signed by Tremaine You MD> Cosigner Signature (if applicable): CC: Dr. Narinder Crum MD ~ Signed [facility] Work Phone: 1(327) 595-125708-21-2025 [place], [place] DISCHARGE SUMMARY NAME: RICHIE ARMAS UNIT #: [id number] ROOM: 312 DOCTOR: SHILA MAYNARD MD BIRTHDATE: [birth year] DOS: 07/11/2025 CHIEF COMPLAINT: I think I am figuring things out. HISTORY OF PRESENT ILLNESS: This is a 75-year-old white female who was sent from [facility] due to altered mental status. The patient [...] and psychiatrically stable. SHILA MAYNARD MD WP/ARV [place], [place] DISCHARGE SUMMARY NAME: RICHIE ARMAS UNIT #: [id number] ROOM: 312 DOCTOR: SHILA MAYNARD MD BIRTHDATE: [birth year] TID: [id number] CM:DISCHARG 1015 SHILA MAYNARD MD 07/11/25 1116 [facility] Telephone encounter Note* Telephone Encounter - Emeli Andujar - 07/02/2025 2:22 PM EDT Name of Caller: [facility] - medical office worker Contact Reason for Appointment: Caller states patient is admitted to [facility] in the Behavioral Health Unit for paranoia, delusions and agitation. Admitted 07.01.25 - no discharge date. Office Name: [id number] Miscellaneous Notes* Telephone Encounter - Emeli Con - 07/02/2025 2:22 PM EDT Name of Caller: [facility] - medical office worker Contact Reason for Appointment: Caller states patient is admitted to [facility] in the Behavioral Health Unit for paranoia, delusions and agitation. Admitted 07.01.25 - no discharge date. Office Name: Lilli documented in this encounterSSt. John of God [id number] History of Present illness Narrative* Janelle Carroll RN - 07/02/2025 10:10 AM EDT Images from the original note were not included. EMR reviewed. Patient enrolled in [facility] 90-day BPCI Program post-hospital discharge [...] Reason for Visit Care Coordination Helen Hoskins (Basket Hand Braider) Social Work The contact, Shruthi Wallace, from [facility] emailed family welfare social work professor and said christy Franco stated he will contact agency when ready to have assessment from the referral family welfare social work professor had sent to . Patient was discharged. [...] a few days until he returns to [place]. See discharge diagnoses list above and medication adjustments below in med rec.The patient is discharged in improved and stable condition. Consults: IP CONSULT TO CASE MANAGEMENT IP CONSULT TO WOUND PREVENTION IP CONSULT TO NEUROLOGY IP CONSULT TO GERIATRICS IP CONSULT TO HOME CARE NEEDS Discharge Instructions: Diet: Dietary Orders (From admission, onward) Start Ordered 06/24/251848 Adult diet Regular; Low Fat/Low Chol/High Fiber/SYMONE [...] PSYCH: anxious affect LABS: Recent Labs 06/25/25 05 NA 140 K 3.6 CL 106 CO2 [...] Your Medications These medications were sent to [facility]/pharmacy #[id number] [place], [place] [address] [place] [id number] capsule Lidocaine 4 % patch melatonin 3 MG tablet Recommended Follow-up: Narinder Crum [address] [facility] [address] [facility] [address] Follow up on 07/05/2025 Follow up from hospital stay at 2:[address] [address] Follow up in 1 month(s) Caregiver supports, cognitive evaluation, f/u mood Complexity of Follow up: [] Moderate Complexity: follow up within 7-14 calendar days (85174) [x] Severe Complexity: follow up within 7 calendar days (58354) Follow up Testing, Pending results or Referrals [...] DO Division of Hospitalist Medicine Acute care [facility] 06/27/2025, 3:00 PM Care Coordination Helen Hoskins (Basket Hand Braider) Social Work medical office worker met with patient's son in the patient room along with patient's . Koki from [facility] had reached out to the son and gave good resources for the family. [facility] followed up with the son as well for resources. medical office worker explained to the patient what resources/referrals I had done and told her we wanted to ensure her and her are safe and her son couldhave some peace of mind. Family denied any other needs. Patient is being discharged to home. Care Coordination Dilma Ross, JOY (Manager Development) Case Management Discharged to home with family , [facility] wset up , son has resources . Patient has transport to home . Progress Notes Teresita Chris APRN - PRABHJOT (Nurse Practitioner) Geriatrics Expand All [facility] Geriatric Medicine Inpatient Consult Service [...] and consider treating for pain --QTc= 459 --Bramwell PRN Seroquel and Haldol for ONLY if [...] with community resources, noted they are in [place] -consider follow up in [facility] for caregiver support, information added to discharge -Information provided to son at bedside regarding communication strategies, confabulation, nighttime behaviors. -medical office worker following and resources provided for a [...] dispenser --Recommend outpatient follow up at [facility] ([facility]) formore in depth cognitive evaluation when in [...] mg, Oral, TID, Teresita Chris APRN - PRABHJOT, 1,000mg at 06/27/25 1312 aspirin chewable tablet 81 mg, 81 mg, Oral, Daily, Marry Berger MD, 81 mg at 06/27/25 0844 bisacodyl (Dulcolax) suppository 10 mg, 10 mg, Rectal, Daily PRN, Marry Berger MD clopidogrel (Plavix) tablet 75 mg, 75 mg, Oral, Daily, Marry Berger MD, 75 mg at 06/27/25843 DULoxetine (Cymbalta) DR capsule 20 mg, 20 mg, Oral, Daily, Teresita Chris, FIREBRICK LAYER HELPER - [employer] ezetimibe (Zetia) tablet 10 mg, 10 mg, Oral, Nightly, Marry Berger MD, 10 mg at 06/26/252109 haloperidol lactate (Haldol) injection 0.5 mg, 0.5 mg, IntraMUSCular, q6h PRN, Teresita Chris, FIREBRICK LAYER HELPER - COSTUMER labetalol (Normodyne,Trandate) injection 10 mg, 10 mg, [...] Daily, Fiona France DO, 50 mg at 06/27/25843 naloxone (Narcan) injection 0.4 mg, 0.4 mg, [...] 2 tablet, Oral, Daily PRN, Ross G [place], BRAIN WAVE TECHNICIAN, 2 tablet at 06/26/25 1606 sodium chloride [...] 5.65 (H) 06/24/2025 No results found for: EJSRAIJN99 No results found for: VITD25 Reviewed: allergies, active problem lists, medications, and labs Care Coordination Helen Hoskins (Basket Hand Braider) Social Work medical office worker got permission from patient to call her son. Son is concerned about his mother being his father's primary caregiver. medical office worker made referral to Koki with [facility] via email. SW also made a referral to [facility] via their website. Plan is to meet with son later today to discussion about plans and discharge. SW will continue to follow as needed. Progress Notes HOLLI Castillo WALL AND FLOOR TILER (Nurse Practitioner) Neurology PROGRESS NOTE: STROKE SERVICE Patient Name:Richie Armas Patient : 1950 Chief complaint: confusion Hospital Summary: 75 y.o. with a PMH of CABG on 06/18, HLD, fibromyalgia, CKD, Raynaud's, anxiety who presented to [facility] on 06/24/25 with a chief complaint of [...] 06/24/2025 Patient Name: RICHIE ARMAS : 1950 [facility]#: [id number] Exam Date/Time: 06/24/2025 15:13 Procedure: MR BRAIN [...] findings was made to MARRY BERGER via [employer] Secure Messaging on 06/24/2025 7:02 PM EDT. [...] concern for this would limit use of WALL AND FLOOR TILER depressants There is a possibility this DWI [...] was spent discussing assessment/plan with Dr. Valle. Progress Notes Fiona France DO (Physician) Internal [...] had another episode of sundowning/agitation overnight callingthe viner operator multiple times asking for the police [...] will be home at discharge. Son, from [place], unable to care for her and daughter [...] All Armas Mobile Relation: Daughter Preferred language: Congolese 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 No Fiona France DO Division of Hospitalist Medicine Acute care [facility] Progress Notes Mateo Us OT (Occupational Therapist) Occupational Therapy OCCUPATIONAL THERAPY [facility] Initial Evaluation Name/MRN: Richie Armas ([id number]) Evaluation Date: 06/26/2025 Date of : 1950 Admission Date: 06/24/2025 9:37 AM Age: 75 y.o. Room/Bed: W3333/W3333 A Discharge Recommendation: Home with assist PRN, [...] upon return to home. Type of Home: [facility] Home Layout: Single Level Home Home Access: Stairs to Enter without Rails (# of stairs: 1) Bathroom Shower/Tub: walk in shower and tub shower, no shower chair Toilet: Standard Home Equipment: none, may have walker in storage but not sure Homemaking Responsibilities: Independent Receives Help From: None Active Circuit Breaker Assembler: Yes Prior Level of Function Prior Level [...] Co-Treatment Co-Evaluation Time In 907 Time Out 0925 Minutes 17 Mateo Us OT Patient's Occupational Therapy Plan of Care supervision is transferred to a [facility] Occupational Therapist. Goals and/or treatment plan was established in collaboration with patient/family/other representatives. 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 Planned Discharge Disposition: Home Health Services [facility] active notified and following Barriers/Today we still Wait: Delirium clearing Length of Stay (Days): 2 GMLOS: No GMLOS Documented Progress Notes Teresita Chris APRN - COSTUMER (Nurse Practitioner) Geriatrics Expand All [facility] Geriatric Medicine Inpatient Consult Service Admission [...] and consider treating for pain --QTc= 459 --Bramwell PRN Seroquel and Haldol for ONLY if danger to self/others/treatment and not otherwise redirectable --Continue scheduled melatonin at - Encouraged patient to try tonight to promote [...] with community resources, noted they are in [place] -consider follow up in [facility] for caregiver support, information added to discharge [...] dispenser --Recommend outpatient follow up at [facility] ([facility] [place] [facility]) formore in depth cognitive evaluation when in [...] and paranoia overnight. Patient calling police and viner operator overnight multiple times. Patient hypertensive overnight. [...] 10 mg, 10 mg, IntraVENous, Once, Ross Hawa Perez NP levothyroxine (Synthroid, Levoxyl) tablet 50 [...] mg, 50 mg, Oral, Daily, Fiona France, DO, 50 mg at 06/26/25 1055 naloxone [...] Marry Berger MD, Last Rate: 50mL/hr at 06/25/25406, 50 mL/hr at 06/25/25406 Physical Exam Vitals reviewed. Constitutional: No acute [...] 5.65 (H) 06/24/2025 No results found for: [id number] No results found for: VITD25 Reviewed: allergies, [...] All Armas Mobile Relation: Daughter Preferred language: Congolese 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 No Fiona France DO Division of Hospitalist Medicine Acute care [facility] Progress Notes Randi Sherwood, CHIARA (Respiratory Therapist) Respiratory Care Service Tobacco cessation consult order via Dr. Marry Berger. Patient denies ever using nicotine/tobacco/vape. Cessation counseling not indicated. Consults Dilma Multani DO (Physician) Geriatrics Consult Orders 1. Inpatient consult to Geriatric Medicine--[facility]; confusion, new stroke [[id number]] ordered by Fiona France DO at 06/25/25 1113 Expand All [facility] Geriatric Medicine Inpatient Consult Service [...] with community resources, noted they are in [place] -consider follow up in [facility] for caregiver support, information added to discharge [...] her prior to surgery -he lives in [place] but hasn't had any concerns prior to this hospitalization for confusion -not to baseline, but improved from yesterday. Still easily distracted, somewhat disinhibited Advance Care Planning Code Status: Full Code [Allergies] [Allergies] Allergen Reactions Flexeril [Cyclobenzaprine] Itching Phenergan [Promethazine] Tardive Dyskinesia [Current Medications] [Current Medications] Current Facility-Administered Medications: acetaminophen (Tylenol) tablet 650 mg, 650 mg, Oral, q6h PRN, 650 mg at 06/24/25 5042 OR acetaminophen (Tylenol) suppository 650 mg, 650 [...] Marry Berger MD, Last Rate: 50mL/hr at 06/25/25406, 50 mL/hr at 06/25/25 040 [Medical History] [Medical History] Past Medical History [...] lower leg: Edema present. Comments: Symmetric hand attending pathologist strength Independent bed mobility Skin: General: Skin [...] 392 ms QTC Interval 459 ms P [place] 49 degrees QRS [place] 97 degrees T Wave [place] 206 degrees FL Interval 149 ms Troponin, High Sensitivity, Serial, [...] mis-transcribed.) Dilma Multani DO 06/25/25 1:21 PM Progress Notes Tiffanie Comer, PT (Physical Therapist) Physical Therapy PHYSICAL THERAPY [facility] Initial Evaluation Name/MRN: Richie Armas ([id number]) Evaluation Date: 06/25/2025 Date of : 1950 Admission Date: 06/24/2025 9:37 AM Age: 75 y.o. Room[facility]: [facility] A Discharge Recommendation: Home with assist PRN [...] Timed Code Treatment Minutes: 8 Minutes Tiffanie Comer, JOSE Patient's Physical Therapy Plan of Care supervision is transferred to a [facility] Physical Therapist. Goals and/or treatment plan was established in collaboration with patient/family/other representatives. Consults Annette Saldana APRN - WALL AND FLOOR TILER (Nurse Practitioner) Neurology Cosigned by: Juana Valle MD at 06/25/2025 3:55 PM Attestation signed by Juana Valle MD at 06/25/2025 3:55 PM Neuro Critical Care / stroke Attending Patient seen and evaluated personally with my CRISTIANO, She has complaints of being confused shortly after being discharge from [facility] after CABG Patient reported having busy weekend [...] her confusion particularly after the addition of WALL AND FLOOR TILER suppressants The possibility that the minor cortical [...] Admitting Team, ., . Thank you NARINDER CURM for the opportunity to be involved in this patient's care. ULT NOTE: STROKE SERVICE Patient Name: Richie Armas Patient : 1950 Date of Admission: 06/24/2025 Chief Complaint: confusion HPI: 75 y.o. with a PMH of CABG on 06/18, HLD, fibromyalgia, CKD, Raynaud's, anxiety who presented to [facility] on 06/24/25 with a chief complaint of [...] QT Interval 392 QTC Interval 459 P [place] 49 QRS [place] 97 T Wave [place] 206 FL Interval 149 Impression Sinus rhythm Consider right [...] [facility] 1950 [id number] Exam Date/Time: 06/24/2025 15:13 Procedure: MR BRAIN [...] findings was made to MARRY BERGER via [employer] Messaging on 06/24/2025 7:02 PM EDT. [...] was spent discussing assessment/plan with Dr. Valle. Care Coordination Dilma Ross, RN (Manager Development) Case Management Care Management Progress Note Short Medical why still here: from home- re admission - recent CABG 06/18 , has pcp , script coverage and is home with . Home with [facility] . PT/OT neuro recs pending Planned Discharge Disposition: Home Health Services [facility] liaison notified via careport Barriers/Today we still Wait: Chief Operator Reformer recommendations (comment), Diagnostic workup Length of Stay (Days): 1 GMLOS: No GMLOS Documented Progress Notes Marry Berger MD (Physician) Internal Medicine Called and updated son Salvador, who is with patient. Just arriving to three W., updated on MRI results and neurology consult. Progress Notes Tamiko Rodgers CCC-CHANGE MANAGEMENT ADMINISTRATOR (Speech and Language Pathologist) Speech Therapy Speech-Language Pathology Patient passed the Nursing Swallowing Screening. As per stroke policy, no formal dysphagia evaluation is required. Completed speech orders. Tamiko Rodgers M.A., CCC-CHANGE MANAGEMENT ADMINISTRATOR H&P Marry Berger MD (Physician) Internal Medicine [...] consult if MRI positive - PT OT CHANGE MANAGEMENT ADMINISTRATOR - Permissive hypertension with SBP> 140 for [...] Emergency Contact Information Primary Emergency Contact: Tomasz rAmas Mobile Relation: Spouse Secondary Emergency Contact: All Armas Mobile Relation: Daughter Preferred language: Congolese 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 No ------- TOTAL time spent on [...] Marry Berger MD Division of Hospitalist Medicine [facility] ED Provider Notes Gokul Chavarria DO (Physician) Emergency Medicine Emergency Department Encounter [facility] EMERGENCY DEPT Patient: Richie Armas : 1950 [...] pain where they accessed her with the [place] catheter. Denies fever/chills, nausea/vomiting, paresthesias, weakness. Patient [...] ED Provider Notes Lucho Longoria PA-C (Physician Leather Worker) Emergency Medicine Cosigned by: Gokul Chavarria DO at 06/25/2025 7:07 AM Emergency Department Encounter [facility] EMERGENCY DEPT Patient: Richie Armas : 1950 [...] flare and confusion for a few days. CAHTO Richie Armas is a 75 y.o. female [...] Vaping status: Never Used Social Drivers of cisimple Intimate Partner Violence: Not At Risk (06/14/2025) [...] 407 ms QTC Interval 462 ms P [place] 42 degrees QRS [place] 85 degrees T Wave [place] 0 degrees FL Interval 160 ms CBC auto differential Collection [...] Department Physician in the absence of a reporting manager. see their note for interpretation of EKG. [...] MEDICATIONS: New Prescriptions No medications on file @[facility]([id number]:LAST:1)@ (Please note: Portions of this note were completed with a voice recognition program. Efforts were made to edit the dictations but occasionally words and phrases are mis-transcribed.) Form [id number] Lucho Longoria PA-C Acute Care [facility] Lucho Longoria PA-C 06/24/25 1631 Other Notes All notes Care Coordination Unknown Case Management Case Management 06/27/2025 Ksenia Obrien, RN Nursing 06/25/2025 Discharge Instr - KERI Megha Craig, JOY Nursing 06/26/2025 Discharge Instructions Dianelys Shook, JOY Nursing 06/25/2025 Home Care Megha Craig, technical documentation specialist 06/26/2025 Megha Craig, technical documentation specialist 06/25/2025 Nurse Navigation Note Meena Arauz, JOY Nursing 06/26/2025 Nursing Note Khushi Shay, RN Nursing 06/27/2025 Khushi Shay, RN Nursing 06/26/2025 Meena Arauz, JOY Nursing 06/26/2025 Meena Arauz RN Nursing 06/25/2025 Progress Notes Dilma MMilana Aguilar Nutrition 06/26/2025 Instructions Patient Signature - [...] patient is to return home with [facility] Patient Goals documented in this [facility]08-11-2025 Pastoral care Progress note Pastoral Care Note [...] Care Comments : patient identifies as a Baptist and believes that God is with her; pt believes that she will soon and is making preparations; pt admits that she told the staff 'the rest of it' but doesn't want to keep repeating it; pt states that she has put much 'effort into beinga Baptist but needs to stop trying so hard to get it all right; pt seeks prayer and support; emphasized with this pt that God is in control of our lives and she acknowledges this; Pastoral Care Visit Length : 20 minute(s) Andrew Santiago - 07/01/2025 9:59 EDT Digitally Signed by Andrew Santiago on 07/01/2025 09:59 AM [facility]08-09-2025 Note* Exam Date Time Procedure Performing Provider Status 06/29/25 5:46 PM EKG [ED AOH] - CV SHAREE HERNANDEZ DO; Auth (Verified) ECG Final Report Sinus rhythm Left atrial enlargement Right axis deviation Nonspecific T abnrm, anterolateral leads Prolonged QT interval BORDERLINE ECG Electronic Signature: SHAREE HERNANDEZ DO 06/29/2025 17:52:00 [facility]08-07-2025 Hospital course Narrative* Fiona France DO - [...] a few days until he returns to [place]. See discharge diagnoses list above and medication [...] Cardiac type: Low Fat/Low Chol/High Fiber/SYMONE 06/24/25 184 Activity: as tolerated Recommended Outpatient Tests: Disposition: [...] Your Medications These medications were sent to [facility]/pharmacy #[id number] [address] [address] capsule Lidocaine 4 % patch melatonin 3 MG tablet Recommended Follow-up: Narinder Zuniga [address] [facility] [address] [facility] [address] Follow up on 07/05/2025 Follow up from hospital stay at 2:50 PM [place] [address] [address] [facility] [address] Follow up in 1 month(s) Caregiver supports, cognitive evaluation, f/u mood Complexity of Follow up: [] Moderate Complexity: follow up within 7-14 calendar days (77734) [x] Severe Complexity: follow up within 7 calendar days (09316) Follow up Testing, Pending results or Referrals [...] frame. Signed: Fiona France DO [facility] 06/27/2025, 3:00 PM [1] Past Medical History: Diagnosis Date Anxiety CKD (chronic kidney disease) stage 2, GFR 60-89 ml/min Depression Fibromyalgia GERD (gastroesophageal reflux disease) Heart disease Hyperlipidemia Hypothyroid IBS (irritable bowel syndrome) Raynaud's disease documented in this [facility]08-07-2025 Miscellaneous Notes* Care Coordination - Unknown Case Management - 06/27/2025 2:46 PM EDT Patient Choice Patient Name: RICHIE ARMAS Date of : 1950 All Providers Sent Referral Name: [facility] Phone: [phone] Address: [facility] [facility] [address] [place] [address] Name: [facility] Phone: [phone] Address: [address] [facility] [address] [place] [address] Name: [facility] Phone: [phone] Address: [address] [place] [address] Name: [facility] Phone: [phone] Address: [place] [address] Name: [employer] [facility] Phone: [phone] Address: [address] [place] [address] Name: [facility] [place] Phone: [phone] Address: [address] [facility] [place] [address] Name: [facility] Phone: [phone] Address: [address] [facility] [address] [place] [address] Name: [facility]) Phone: [phone] Address: [address] [place] [address] Name: [facility] Phone: [phone] Address: [address] [place] [address] Name: [facility] [place] Phone: [phone] Address: [address] [place] [address] Name: [facility] Phone: [phone] Address: [address] [place] [address] [place] [address] Name: [facility] [place] (All Offices) Phone: [phone] Address: [address], [place] [address] Name: [facility] Phone: [phone] Address: [address] [place] [address] Name: [facility] Address: [address] [facility] [address] [place] [address] Name: [facility] [place] ([facility] Claribel[facility]arcel[facility]) Phone: [phone] Address: [address] [place] [address] [address] [facility] Phone: [phone] Address: [address] [facility] [address] [place] [address] Name: [facility] Phone: [phone] Address: [address] [place] [address] Name: [facility] Centralized Intake Phone: [phone] Address: [address] [facility] [facility] [place] [address] Name: [facility]) Address: [address] [facility] [facility] [address] [place] [address] * Care Coordination - Helen Hoskins - 06/27/2025 2:11 PM EDT medical office worker met with patient's son in the patient room along with patient's . Koki from [facility] had reached out to the son and gave good resources for the family. [facility] followed up with the son as well for resources. medical office worker explained to the patient what resources/referrals I had done and told her we wanted to ensure her and her are safe and her son couldhave some peace of mind. Family denied any other needs. Patient is being discharged to home. * Care Coordination - Dilma Ross RN - 06/27/2025 1:52 PM EDT Discharged to home with family , [facility] wset up , son has resources . Patient has transport to home . * Care Coordination - Helen Hoskins - 06/27/2025 9:17 AM EDT medical office worker got permission from patient to call her son. Son is concerned about his mother being his father's primary caregiver. medical office worker made referral to Koki with [facility] via email. SW also made a referral to [facility] via their website. Plan is to meet with son later today to discussion about plans and discharge. SW will continue to follow as needed. * Home Care - Megha Craig RN - 06/26/2025 3:48 PM EDT Start PACC Note Home Health Referral Educated patient on Home Care and services available. Patient offered choice of available HHC and agreeable to SN/PT services with [facility]. Care [...] is noted as yes - consider a PRODUCTION MINER evaluation once the patient returns home. START PATIENT REGISTRATION INFORMATION Order Information Order Signing Physician: Fiona France, DO Service Ordered RN ?: Yes Service Ordered PT ?: Yes Service Ordered OT ?: No Service Ordered ST ?: No Service Ordered PRODUCTION MINER?:No Service Ordered FREIGHT SEPARATOR?: No Following Physician: Anders Johnston MD Following Physician Overseeing Physician: Anders Johnston MD (Required for Residents only) Agreeable to Follow? Yes Date/Time of Call 06/26/25 3:49 PM, Spoke with: cts protocol/carlos protocol Care Coordination Same Day SOC?: No Primary Care Physician: NARINDER CRUM Primary Care Physician Primary Care Physician Address: [address] [place] [id number] Visit Instructions: N/A Service Discharge Location Type: Home with Home Care Service Facility Name: N/A Service Floor Facility: N/A Service Room No: N/A Demographics Patient Last Name: Pawel Patient First Name: Richie Language/Communication Barrier: no Service Address: [address] [place] [address] Service City: [place] Service ST: [place] Service ZIP: [address] Service (home) Other phone numbers: Telephone Information: Emergency Contact: Extended Emergency Contact Information Primary Emergency Contact: Tomasz Armas Mobile Relation: Spouse Secondary Emergency Contact: All Armas Mobile Relation: Daughter Preferred language: Congolese 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 No Admission Information Admit Date: 06/24/2025 Patient status at discharge: Inpatient Admitting Diagnosis: Altered mental status, unspecified altered mental status type [R41.82] Caregiver Information Caregiver First Name: na Caregiver Last Name: na Caregiver Relationship to Patient na Caregiver Phone Number: na Caregiver Notes: N/A [employer] List No END PATIENT REGISTRATION INFORMATION Pt [...] Diabetic: blood glucose testing as directed by PCP/Policy Director -For recent heart surgery if patient discharged on Coumadin verify need for INR draw on visit. Activity/Weight Bearing: -Up with assistance: up in chair for all meals, ambulate 3-4 times a day -Stretching exercises per PT discharge instructions Discharge Date: pending Referral Source-PACC: (Hospital/Unit): [facility] / [id number] A End PACC Note * Care Coordination [...] OR 06/18 sent home with [facility]. Planned Discharge Disposition: Home Health Services WHALEN active notified and following Barriers/Today we still Wait: Delirium clearing Length of Stay (Days): 2 GMLOS: No GMLOS Documented * Nurse Navigation Note - Meena Arauz RN - 06/26/2025 3:40 AM EDT After being visited by [employer] and nursing supervisor farm equipment maintenance, pt more calm and agreeable to care. Pt apologetic about earlier behavior. Pt assured that all is well. * Care Coordination - Ksenia Obrien RN - 06/25/2025 3:24 PM EDT PCP follow up scheduled. Follow up with Narinder Crum Tuesday at 2:50 PM Follow up from [facility]. [facility]. [phone] * Home Care - Megha Craig RN - 06/25/2025 9:41 AM EDT Patient is currently active with [facility]. The patient is currently receiving SN/PT services through the agency. Associate Media Director to continue to follow. * Care Coordination - Dilma Ross RN - 06/25/2025 6:44 AM EDT Care Management Progress Note Short Medical why still here: from home- re admission - recent CABG 06/18 , has pcp , script coverage and is home with . Home with [facility] . PT/OT neuro recs pending Planned Discharge Disposition: Home Health Services WHALEN liaison notified via careport Barriers/Today we still Wait: Chief Operator Reformer recommendations (comment), Diagnostic workup Length of Stay (Days): 1 GMLOS: No GMLOS Documented documented in this [facility]08-07-2025 [facility] 06-27-2025 Progress note* Care Coordination - Unknown Case Management - 06/27/2025 2:46 PM EDT Patient Choice Patient Name: RICHIE ARMAS Date of : 1950 All Providers Sent Referral Name: [facility] Phone: [phone] Address: [address] [place] [address] Name: [facility] Phone: [phone] Address: [address] [facility] [address] [place] [address] [facility]: [facility] Phone: [phone] Address: [address] [place] [address] Name: [facility] Phone: [phone] Address: [place] [address] Name: [employer] [facility] Phone: [phone] Address: [address] [place] [address] Name: [facility] Phone: [phone] Address: [address] [facility] [facility] [place] [address] Name: [facility] Phone: [phone] Address: [address] [facility] [address] [place] [address] Name: [facility] ([facility]) Phone: [phone] Address: [address] [place] [address] Name: [facility] Phone: [phone] Address: [address] [place] [address] Name: [facility] [place] [facility] Phone: [phone] Address: [address] [place] [address] Name: [facility] Phone: [phone] Address: [address] [place] [address] [place] [address] Name: [facility] [place] ([facility] Off[facility]) Phone: [phone] Address: [address] [address] Name: [facility] Phone: [phone] Address: [address] [place] [address] Name: [facility] Address: [address] [facility] [place] [address] Name: [facility] [place] ([facility]) Phone: [phone] Address: [address] [place] [address] [address] [facility] Phone: [phone] Address: [address] [facility] [address] [facility] [address] [place] [address] Name: [facility] Phone: [phone] Address: [address] [place] [address] Name: [facility] Centralized Intake Phone: [phone] Address: [address] [place] [address] Name: [facility]) Address: [address] [facility] [address] [place] [address] [facility] Hospital[facility]iamjo87-30-3728 Progress note* Care Coordination - Helen Hoskins - 06/27/2025 2:11 PM EDT medical office worker met with patient's son in the patient room along with patient's . Koki from [facility] had reached out to the son and gave good resources for the family. [facility] followed up with the son as well for resources. medical office worker explained to the patient what resources/referrals I had done and told her we wanted to ensure her and her are safe and her son couldhave some peace of mind. Family denied any other needs. Patient is being discharged to home. [facility] HospitalYfxoth69-43-7012 Progress note* Care Coordination - Dilma Ross RN - 06/27/2025 1:52 PM EDT Discharged to home with family , [facility] wset up , son has resources . Patient has transport to home . [facility] HospitalEsifff87-67-4024 Nurse Note* Khushi Shay RN - 06/27/2025 1:09 PM EDT Pt given discharge instructions with son present and . IV out. Tele off. [facility] [id number] Nurse Note* Khushi Shay RN - 06/27/2025 [...] friends about her condition. Pt has called viner operator multiple times requesting police security. Nurse [...] EDT Pt blood pressure running 170+ systolic, [facility] [place]. New order for one time dose [...] anyone. Pt demanding to speak to a supervisor farm equipment maintenance. Regulatory Scientist called. [facility] notifiedof pt's change in mental status. documented in this [facility]08-07-2025 History of Present illness Narrative* Teresita Chris, FIREBRICK LAYER HELPER - COSTUMER - 06/27/2025 9:21 AM EDT [facility] Geriatric Medicine Inpatient Consult Service Admission [...] and consider treating for pain --QTc= 459 --Bramwell PRN Seroquel and Haldol for ONLY if danger to self/others/treatment and not otherwise redirectable-Do not anticipate needing on discharge --Continue scheduled melatonin at HS- Encouraged patient to continue on discharge to [...] with community resources, noted they are in [place] -consider follow up in [facility] for caregiver support, information added to discharge -Information provided to son at bedside regarding communication strategies, confabulation, nighttime behaviors. -medical office worker following and resources provided for a [...] dispenser --Recommend outpatient follow up at [facility]) formore in depth cognitive evaluation when in [...] 5.65 (H) 06/24/2025 No results found for: [id number] No results found for: VITD25 Reviewed: allergies, active problem lists, medications, and labs [1] Current Facility-Administered Medications: acetaminophen (Tylenol) tablet 1,000 mg, 1,000 mg, Oral, TID, HOLLI Isaac CNP, 1,000mg at 06/27/25 1312 aspirin chewable tablet 81 mg, 81 mg, Oral, Daily, Marry Berger MD, 81 mg at 06/27/25 08 bisacodyl (Dulcolax) suppository 10 mg, 10 mg, Rectal, Daily PRN, Marry Berger MD clopidogrel (Plavix) tablet 75 mg, 75 mg, Oral, Daily, Marry Berger MD, 75 mg at 06/27/25843 DULoxetine (Cymbalta) DR capsule 20 mg, 20 mg, Oral, Daily, Teresita Chris APRN [facility] ezetimibe (Zetia) tablet 10 mg, 10 mg, Oral, Nightly, Marry Berger MD, 10 mg at 06/26/252109 haloperidol lactate (Haldol) injection 0.5 mg, 0.5 mg, IntraMUSCular, q6h PRN, Teresita Chris APRN [facility] labetalol (Normodyne,Trandate) injection 10 mg, 10 mg, [...] Nightly, Hernesto Perez NP, 3 mg at 06/26/25 2110 metoprolol succinate XL (Toprol-XL) 24 hr tablet 50 mg, 50 mg, Oral, Daily, Fiona France DO, 50 mg at 06/27/25 08 naloxone (Narcan) injection 0.4 mg, 0.4 mg, [...] 2 tablet, Oral, Daily PRN, Ross G [place], BRAIN WAVE TECHNICIAN, 2 tablet at 06/26/25 1606 sodium chloride 0.9 % infusion, 50 mL/hr, IntraVENous, Continuous, Marry Berger MD, Last Rate: 50mL/hr at 06/25/25 0407, 50 mL/hr at 06/25/25 0407 * HOLLI Castillo - 06/26/2025 3:33 PM EDT PROGRESS NOTE: STROKE SERVICE Patient Name:Richie Armas Patient : 1950 Chief complaint: [facility] Summary: 75 y.o. with a PMH of CABG on 06/18, HLD, fibromyalgia, CKD, Raynaud's, anxiety who presented to [facility] on 06/24/25 with a chief complaint of [...] 06/24/2025 Patient Name: RICHIE ARMAS : 1950 [facility]#: [id number] Exam Date/Time: 06/24/2025 15:13 Procedure: MR BRAIN [...] findings was made to MARRY BERGER via [employer] on 06/24/2025 7:02 PM EDT. [...] concern for this would limit use of WALL AND FLOOR TILER depressants There is a possibility this DWI [...] (PEG) 3350, QUEtiapine, senna-docusate sodium * Fiona France DO - 06/26/2025 2:07 PM EDT Hospitalist Progress Note 06/26/2025 Subjective: Admit Date: 06/24/2025 PCP: NARINDER CRUM Room#: W3333/W3333 A BRIEF HOSPITAL COURSE: Richie is a [...] had another episode of sundowning/agitation overnight callingthe viner operator multiple times asking for the police [...] will be home at discharge. Son, from [place], unable to care for her and daughter [...] All Armas Mobile Relation: Daughter Preferred language: Congolese 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 No Fiona France DO Division of Hospitalist Medicine [employer] [1] Past Medical History: Diagnosis Date Anxiety [...] (irritable bowel syndrome) Raynaud's disease * Mateo Us OT - 06/26/2025 11:06 AM EDT Images from the original note were not included. OCCUPATIONAL THERAPY [facility] Initial Evaluation Name/MRN: Richie Armas ([id number]) Evaluation Date: 06/26/2025 Date of : 1950 Admission Date: 06/24/2025 9:37 AM Age: 75 y.o. Room[facility]: [facility] A Discharge Recommendation: Home with assist PRN, [...] upon return to home. [facility] Layout: Single Level Home Home Access: Stairs to Enter without Rails (# of stairs: 1) Bathroom Shower/Tub: walk in shower and tub shower, no shower chair Toilet: Standard Home Equipment: none, may have walker in storage but not sure Homemaking Responsibilities: Independent Receives Help From: None Active Circuit Breaker Assembler: Yes Prior Level of Function Prior Level [...] Daily Activity Raw Score: 19 ADL Inpatient [facility] G-Code Modifier: CK Plan Pt would benefit [...] Co-Treatment Co-Evaluation Time In 0908 Time Out 0925 Minutes 17 Mateo Us OT Patient's Occupational Therapy Plan of Care supervision is transferred to a [facility] Occupational Therapist. Goals and/or treatment [...] be monitored and followed by the diet a/c technician. BEENA Marcos * Teresita Chris APRN - PRABHJOT - 06/26/2025 9:00 AM EDT [facility] Geriatric Medicine Inpatient Consult Service Admission [...] and consider treating for pain --QTc= 459 --Bramwell PRN Seroquel and Haldol for ONLY if [...] with community resources, noted they are in [place] -consider follow up in [facility] for caregiver support, information added to discharge [...] dispenser --Recommend [facility] formore in depth cognitive evaluation when in [...] and paranoia overnight. Patient calling police and viner operator overnight multiple times. Patient hypertensive overnight. [...] 5.65 (H) 06/24/2025 No results found for: [id number] No results found for: VITD25 Reviewed: allergies, [...] Daily, Marry Berger MD, 40 mg at 06/25/252103 senna-docusate sodium (Senokot-S) 8.6-50 MG tablet 2 tablet, 2 tablet, Oral, Daily PRN, Hernesto Perez NP sodium chloride 0.9 % infusion, 50 mL/hr, IntraVENous, Continuous, Marry Berger MD, Last Rate: 50mL/hr at 06/25/25406, 50 mL/hr at 06/25/25406 * Fiona France, [...] All Armas Mobile Relation: Daughter Preferred language: Congolese 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 No Fiona France DO Division of Hospitalist Medicine Acute care [facility] [1] Past Medical History: Diagnosis [...] (irritable bowel syndrome) Raynaud's disease * Randi Sherwood RRT - 06/25/2025 2:05 PM EDT Tobacco cessation consult order via Dr. Marry Berger. Patient denies ever using nicotine/tobacco/vape. Cessation counseling not indicated. * Tiffanie Comer, PT - 06/25/2025 11:32 AM EDT Images from the original note were not included. PHYSICAL THERAPY [facility] Initial Evaluation Name/MRN: Richie Armas ([id number]) Evaluation Date: 06/25/2025 Date of : 1950 [...] type 06/24/2025 NSTEMI (non-ST elevation myocardial infarction) ([facility]) 06/14/2025 Medical Precautions: No active isolations [...] Co-Treatment Co-Evaluation Time In 930 Time Out 09 Minutes 27 Timed Code Treatment Minutes: 8 Minutes Tiffanie Comer PT Patient's Physical Therapy Plan of Care supervision is transferred to a [facility] Physical Therapist. Goals and/or treatment [...] on MRI results and neurology consult. * Tamiko Rodgers CCC-CHANGE MANAGEMENT ADMINISTRATOR - 06/24/2025 3:13 PM EDT Speech-Language Pathology Patient passed the Nursing Swallowing Screening. As per stroke policy, no formal dysphagia evaluation is required. Completed speech orders. Tamiko Rodgers M.A. CCC-CHANGE MANAGEMENT ADMINISTRATOR documented in this [facility]08-07-2025 Progress note* Care Coordination - Helen Hoskins - 06/27/2025 9:17 AM EDT medical office worker got permission from patient to call her son. Son is concerned about his mother being his father's primary caregiver. medical office worker made referral to Koki with [facility] via email. SW also made a referral to [facility] via their website. Plan is to meet with son later today to discussion about plans and discharge. SW will continue to follow as needed. [facility] HospitalCzrmqx06-39-0329 Patient's home Note* Home Care - Megha Craig RN - 06/26/2025 3:48 PM EDT Start PACC Note Home Health Referral Educated patient on Home Care and services available. Patient offered choice of available HHC and agreeable to SN/PT services with [facility]. Care [...] is noted as yes - consider a PRODUCTION MINER evaluation once the patient returns home. START PATIENT REGISTRATION INFORMATION Order Information Order Signing Physician: Fiona France, DO Service Ordered RN ?: Yes Service Ordered PT ?: Yes Service Ordered OT ?: No Service Ordered ST ?: No Service Ordered PRODUCTION MINER?:No Service Ordered FREIGHT SEPARATOR?: No Following Physician: Anders Johnston MD Following Physician Overseeing Physician: Anders Johnston MD (Required for Residents only) Agreeable to Follow? Yes Date/Time of Call 06/26/25 3:49 PM, Spoke with: cts protocol/carlos protocol Care Coordination Same Day SOC?: No Primary Care Physician: NARINDER CRUM Primary Care Physician Primary Care Physician Address: [address] [place] [address] / [facility] [id number] Visit Instructions: N/A Service Discharge Location Type: Home with Home Care Service Facility Name: N/A Service Floor Facility: N/A Service Room No: N/A Demographics Patient Last Name: Pawel Patient First Name: Richie Language/Communication Barrier: no Service Address: [address] [place] [address] Service City: [place] Service ST: [place] Service ZIP: [address] Service (home) Other phone numbers: Telephone Information: Emergency Contact: Extended Emergency Contact Information Primary Emergency Contact: Tomasz Armas Mobile Relation: Spouse Secondary Emergency Contact: All Armas Mobile Relation: Daughter Preferred language: Congolese 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 No Admission Information Admit Date: 06/24/2025 Patient status at discharge: Inpatient Admitting Diagnosis: Altered mental status, unspecified altered mental status type [R41.82] Caregiver Information Caregiver First Name: na Caregiver Last Name: na Caregiver Relationship to Patient na Caregiver Phone Number: na Caregiver Notes: N/A [employer] List No END PATIENT REGISTRATION INFORMATION Pt [...] Diabetic: blood glucose testing as directed by PCP/Policy Director -For recent heart surgery if patient discharged on Coumadin verify need for INR draw on visit. Activity/Weight Bearing: -Up with assistance: up in chair for all meals, ambulate 3-4 times a day -Stretching exercises per PT discharge instructions Discharge Date: pending Referral Source-PACC: (Hospital/Unit): [facility] / W3-/W3333 A End PACC Note [facility]rsmsp58-49-4729 Nurse Note* Khushi Shay RN - 06/26/2025 3:32 PM EDT Co sign Khushi Shay RN [facility] HospitalVkahye45-64-4044 Progress note* Care Coordination - Dilma Ross RN - 06/26/2025 9:02 AM EDT Care Management Progress Note Short Medical why still here: need delirium to clear , from home with - she is caregiver for him- ( has dementia ) previous was doing own pill box- geriatrics following- readmission was here Admission 06/14-06/22/25 for CAD , OR 06/18 sent home with [facility]. Planned Discharge Disposition: Home Health Services WHALEN active notified and following Barriers/Today we still Wait: Delirium clearing Length of Stay (Days): 2 GMLOS: No GMLOS Documented [facility] HospitalHjhdgg38-30-2411 Nurse Note* Nurse Navigation Note - Meena Arauz RN - 06/26/2025 3:40 AM EDT After being visited by [facility] and nursing supervisor farm equipment maintenance, pt more calm and agreeable to care. Pt apologetic about earlier behavior. Pt assured that all is well. [facility] HospitalXfuhhy18-83-3648 Nurse Note* Meena Arauz RN - 06/26/2025 1:23 AM EDT Pt is saying she is calling the police and reporting that we are violating her rights by speaking to her neighbors and friends about her condition. Pt has called viner operator multiple times requesting police security. Nurse called All, her daughter, daughter called the room and spoke to patient. All called back and said even she could not convince pt she is in hospital and we are her caregivers. Daughter wants us to remove pts phone. Pt is very paranoid. Message sent to physician regarding above. [facility] HospitalQmpxex22-57-2716 Nurse Note* Meena Arauz RN - 06/25/2025 11:58 PM EDT Pt blood pressure running 170+ systolic, [facility] [place]. New order for one time dose [...] anyone. Pt demanding to speak to a supervisor farm equipment maintenance. Regulatory Scientist called. [facility] notifiedof pt's change in mental status. [facility] HospitalQygayb05-81-8600 Progress note* Care Coordination - Ksenia Obrien RN - 06/25/2025 3:24 PM EDT PCP follow up scheduled. Follow up with Narinder Crum Tuesday at 2:50 PM Follow up from [facility] [phone] [facility] HospitalMrvwaf53-55-3061 NoteTobacco cessation consult order via Dr. Marry Berger. Patient denies ever using nicotine/tobacco/vape. Cessation counseling not indicated.[facility]08-05-2025 Consult note* Dilma Multani DO - 06/25/2025 1:21 PM EDT Associated Order(s): IP CONSULT TO GERIATRICS [facility] Geriatric Medicine Inpatient Consult Service Admission [...] with community resources, noted they are in [place] -consider follow up in [facility] for caregiver support, information added to discharge [...] possible afib episode following surgery. Notes palpitations whenzahirae lays on her right side -has had [...] her prior to surgery -he lives in [place] but hasn't had any concerns prior to [...] lower leg: Edema present. Comments: Symmetric hand attending pathologist strength Independent bed mobility Skin: General: Skin [...] 392 ms QTC Interval 459 ms P [place] 49 degrees QRS [place] 97 degrees T Wave [place] 206 degrees [place] Interval 149 ms Troponin, High Sensitivity, Serial, [...] Oral, q6h PRN, 650 mg at 06/24/25 6585 OR acetaminophen (Tylenol) suppository 650 mg, 650 [...] Marry Berger MD, Last Rate: 50mL/hr at 06/25/25406, 50 mL/hr at 06/25/25 040 [3] Past Medical History: Diagnosis Date Anxiety CKD (chronic kidney disease) stage 2, GFR 60-89 ml/min Depression Fibromyalgia GERD (gastroesophageal reflux disease) Heart disease Hyperlipidemia Hypothyroid IBS (irritable bowel syndrome) Raynaud's disease [4] Past Surgical History: Procedure Laterality Date CORONARY ARTERY BYPASS GRAFT [5] No family history on file. [facility] Work Phone: [phone] 909-801508-05-2025 Consult note* Dilma Multani DO - 06/25/2025 1:21 PM EDTAssociated Order(s): IP CONSULT TO GERIATRICS [facility] Geriatric Medicine Inpatient Consult Service Admission [...] with community resources, noted they are in [place] -consider follow up in [facility] for caregiver support, information added to discharge [...] home, did her own pillbox, seemed in [place]. Pt reports increased stress on return home [...] her prior to surgery -he lives in [place] but hasn't had any concerns prior to [...] lower leg: Edema present. Comments: Symmetric hand attending pathologist strength Independent bed mobility Skin: General: Skin [...] 392 ms QTC Interval 459 ms P [place] 49 degrees QRS [place] 97 degrees T Wave [place] 206 degrees [place] Interval 149 ms Troponin, High Sensitivity, Serial, [...] at 06/25/25 0407, 50 mL/hr at 06/25/25 040 [3] Past Medical History: Diagnosis Date Anxiety CKD (chronic kidney disease) stage 2, GFR 60-89 ml/min Depression Fibromyalgia GERD (gastroesophageal reflux disease) Heart disease Hyperlipidemia Hypothyroid IBS (irritable bowel syndrome) Raynaud's disease [4] Past Surgical History: Procedure Laterality Date CORONARY ARTERY BYPASS GRAFT [5] No family history on file. * Annette Saldana, HOLLI - WALL AND FLOOR TILER - 06/25/2025 10:24 AM EDT CONSULT NOTE: STROKE SERVICE Patient Name: Richie Armas Patient : 1950 Date of Admission: 06/24/2025 Chief Complaint: confusion HPI: 75 y.o. with a PMH of CABG on 06/18, HLD, fibromyalgia, CKD, Raynaud's, anxiety who presented to [facility] on 06/24/25 with a chief complaint of [...] QT Interval 392 QTC Interval 459 P [place] 49 QRS [place] 97 T Wave [place] 206 FL Interval 149 Impression Sinus rhythm Consider right [...] 06/24/2025 Patient Name: RICHIE ARMAS : 1950 [facility]#: [id number] Exam Date/Time: 06/24/2025 15:13 Procedure: MR BRAIN [...] findings was made to MARRY BERGER via [employer] on 06/24/2025 7:02 PM EDT. [...] being confused shortly after being discharge from [facility] after CABG Patient reported having busy weekend [...] her confusion particularly after the addition of WALL AND FLOOR TILER suppressants The possibility that the minor cortical [...] in this patient's care. documented in this [facility]08-05-2025 Consult note* Annette Saldana, FIREBRICK LAYER HELPER - WALL AND FLOOR TILER - 06/25/2025 10:24 AM EDT CONSULT NOTE: STROKE SERVICE Patient Name: Richie Armas Patient : 1950 Date of Admission: 06/24/2025 Chief Complaint: confusion HPI: 75 y.o. with a PMH of CABG on 06/18, HLD, fibromyalgia, CKD, Raynaud's, anxiety who presented to [facility] on 06/24/25 with a chief complaint of [...] QT Interval 392 QTC Interval 459 P [place] 49 QRS [place] 97 T Wave [place] 206 FL Interval 149 Impression Sinus rhythm Consider right [...] [facility] 1950 [id number] Exam Date/Time: 06/24/2025 15:13 Procedure: MR BRAIN [...] findings was made to MARRY BERGER via [employer] on 06/24/2025 7:02 PM EDT. [...] being confused shortly after being discharge from [facility] after CABG Patient reported having busy weekend [...] her confusion particularly after the addition of WALL AND FLOOR TILER suppressants The possibility that the minor cortical [...] to be involved in this patient's care. [facility] [id number] Patient's home Note* Home Care - Megha Craig RN - 06/25/2025 9:41 AM EDT Patient is currently active with [facility]. The patient is currently receiving SN/PT services through the agency. Associate Media Director to continue to follow. [employer] [id number] Hospital Discharge instructions* Discharge Instructions* Dianelys Shook [...] and the need for follow-up with a physician/SENIOR CENTER DIRECTOR/PA after discharge. Dianelys Shook RN on 06/25/25 [...] AM * Discharge Instr - KERI* Megha Craig, RN - 06/26/2025 3:47 PM EDT Images [...] All Armas Mobile Relation: Daughter Preferred language: Congolese 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 No Past Surgical History: Past Surgical [...] 4.8 oz) Mental Status: {KERI Patient Mental Status:59575} IV Access: {KERI IV Access:69203} Nursing Mobility/ADLs: Walking {SUNNY ADL:::Independent} Transfer {SUNNY ADL:::Independent} Bathing {SUNNY ADL:::Independent} Dressing {SUNNY ADL:::Independent} Toileting {SUNNY ADL:::Independent} Feeding {SUNNY ADL:::Independent} Dealer Sales Manager {SUNNY ADL:::Independent} Med Delivery {yes/no:20322} Wound Care Documentation and Therapy: Wound/Incision 06/18/25 Incision Sternum (Active) Number of days: 8 Wound/Incision 06/18/25 Incision Calf Anterior;Left (Active) Number of days: 7 Elimination: Continence: Bowel: {yes/no:87930} Bladder: {yes/no:59028} Urinary Catheter: {KERI Urinary Catheter:61628} Colostomy/Ileostomy/Ileal Conduit: {YES / NO:01870} Date of Last BM: Intake/Output Summary (Last 24 hours) at 06/26/2025 1547 Last data filed at 06/26/2025 0415 Gross per 24 hour Intake 340 ml Output -- Net 340 ml I/O last 3 completed shifts: In: 1509.2 (25 mL/kg) [P.O.:840; I.V.:669.2 (11.1 mL/kg)] Out: - (0 mL/kg) Weight: 60.5 kg Safety Concerns: {KERI Safety Concerns:06797} Impairments/Disabilities: {KERI Impairments/Disabilities:88660} Nutrition Therapy: Current Nutrition Therapy: {KERI Diet List:85866} Routes of Feeding: {routes of feedin} Liquids: {liquid consistency:32195} Daily Fluid Restriction: {daily fluid restriction:21309} Last Modified Barium Swallow with Video (Video Swallowing Test): {done not done:43214} Treatments at the Time of Hospital Discharge: Respiratory Treatments: Oxygen Therapy: {Therapy; copd oxygen:76267} Ventilator: {KERI Ventilator:28028} Rehab Therapies: {GEN THERAPY DISCIPLINE SCAL:1428153} Weight Bearing Status/Restrictions: {POD WEIGHT BEARIN} Other Medical Equipment (for information only, NOT a DME order): {Assistive Devices DME:23017} Other Treatments: Patient's personal belongings (please select all that are sent with patient): {KERI Patient Belongings:94916} RN SIGNATURE: {E-signature:21066} CASE MANAGEMENT/SOCIAL WORK SECTION Inpatient Status Date: Discharging to Facility/ Agency Name: [facility] Address: [address] [place] [address] Dialysis Facility (if applicable) Name: Address: Dialysis Schedule: Phone: Fax: Manager Development/Basket Hand Braider signature: {E-signature:86029} PHYSICIAN SECTION Name: Richie Armas Prognosis: {Rehab Prognosis:99746} Condition at Discharge: {Patient Condition:19916} Rehab Potential (if transferring to Rehab): {Rehab Prognosis:37513} Recommended Labs or Other Treatments After Discharge: The individual is being admitted to a nursing facility directly from an [facility] or a unit of a surgical specialty hospital-coordinated hlth that is not operated by or licensed by [facility] under section 5119.14 or 5160-3-15.1 5 The individual requires the level of services provided by a nursing facility for the condition for which he or she was treated in the hospital and, Physician Certification: I certify the above information and transfer of Richie Armas is necessary for the continuing treatment of the diagnosis listed and that she requires {KERI Level of Care:90468} for {greater less than:32366} 30 days. Update Admission H&P: {KERI Changes in H&P:89963} PHYSICIAN SIGNATURE: {E-signature:82001} documented in this [facility]08-05-2025 Progress note* Care Coordination - Dilma Ross RN - 06/25/2025 6:44 AM EDT Care Management Progress Note Short Medical why still here: from home- re admission - recent CABG 06/18 , has pcp , script coverage and is home with . Home with [facility] . PT/OT neuro recs pending Planned Discharge Disposition: Home Health Services WHALEN liaison notified via careport Barriers/Today we still Wait: Chief Operator Reformer recommendations (comment), Diagnostic workup Length of Stay (Days): 1 GMLOS: No GMLOS Documented [id number] NoteSpeech-Language Pathology Patient passed the Nursing Swallowing Screening. As per stroke policy, no formal dysphagia evaluation is required. Completed speech orders. Tamiko Rodgers M.A. 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 No ------- TOTAL time spent on [...] Marry Berger MD Division of Hospitalist Medicine [facility] [1] No past medical history on [...] [6] No past medical history on file. 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 No ------- TOTAL time spent on [...] Marry Berger MD Division of Hospitalist Medicine [id number] [1] No past medical history on [...] medical history on file. documented in this [facility]08-04-2025 [facility] 06-24-2025 Emergency department Note* Lucho Longoria PA-C - 06/24/2025 9:32 AM EDT Emergency Department Encounter [facility] EMERGENCY DEPT Patient: Richie Armas : 1950 [...] flare and confusion for a few days. CAHTO Richie Armas is a 75 y.o. female [...] 407 ms QTC Interval 462 ms P [place] 42 degrees QRS [place] 85 degrees T Wave [place] 0 degrees FL Interval 160 ms CBC auto differential Collection [...] Department Physician in the absence of a reporting manager. see their note for interpretation of EKG. [...] MEDICATIONS: New Prescriptions No medications on file @[facility]([id number]:LAST:1)@ (Please note: Portions of this note were completed with a voice recognition program. Efforts were made to edit the dictations but occasionally words and phrases are mis-transcribed.) Form v2016.J.5-cn Lucho Longoria PA-C Acute Care [facility] [1] No past medical history on file. [2] No past surgical history on file. [3] Social History Socioeconomic History Marital status: Tobacco Use Smoking status: Unknown Vaping Use Vaping status: Never Used [employer] of [employer]imple Intimate Partner Violence: Not At Risk (06/14/2025) [...] 06/24/2025 9:32 AM EDT Emergency Department Encounter [facility] EMERGENCY DEPT Patient: Richie Armas : 1950 [...] pain where they accessed her with the [place] catheter. Denies fever/chills, nausea/vomiting, paresthesias, weakness. Patient [...] Chavarria DO 06/25/25 0722 documented in this [facility]08-04-2025 Physician Emergency department Note* Lucho Longoria PA-C - 06/24/2025 9:32 AM EDT Emergency Department Encounter [facility] EMERGENCY DEPT Patient: Richie Armas : 1950 [...] flare and confusion for a few days. CAHTO Richie Armas is a 75 y.o. female [...] 407 ms QTC Interval 462 ms P [place] 42 degrees QRS [place] 85 degrees T Wave [place] 0 degrees FL Interval 160 ms CBC auto differential Collection [...] Department Physician in the absence of a reporting manager. see their note for interpretation of EKG. [...] MEDICATIONS: New Prescriptions No medications on file @[facility]([id number]:LAST:1)@ (Please note: Portions of this note were completed with a voice recognition program. Efforts were made to edit the dictations but occasionally words and phrases are mis-transcribed.) Form v2016.J.5-cn Lucho Longoria PA-C [id number] [1] No past medical history on file. [2] No past surgical history on file. [3] Social History Socioeconomic History Marital status: Tobacco Use Smoking status: Unknown Vaping Use Vaping status: Never Used [employer] Intimate Partner Violence: Not At Risk (06/14/2025) [...] Allergies Allergen Reactions Flexeril [Cyclobenzaprine] Itching Lucho Longoira PA-C 06/24/25 1631 Cosigned by Gokul Chavarria DO at 06/25/2025 7:07 AM EDT [id number] Physician Emergency department Note* Gokul Chavarria DO - 06/24/2025 9:32 AM EDT Emergency Department Encounter [facility] EMERGENCY DEPT Patient: Richie Armas : 1950 [...] pain where they accessed her with the [place] catheter. Denies fever/chills, nausea/vomiting, paresthesias, weakness. Patient [...] for clarification.) Gokul Chavarria DO Acute Care [facility] Gokul Chavarria DO 06/25/25 0722 [employer] Phone: [phone] Telephone encounter Note* Telephone Encounter - Leighann Moreno - 06/24/2025 8:11 AM EDT Pt returned call to office, she is now reporting sudden onset of neck pain and increased confusion today. Advised pt be seen in ED since she is having new/worsening symptoms. Patient's son states he will bring her to [facility] ED for evaluation. K[employer] [id number] Miscellaneous Notes* Telephone Encounter - Leighann Moreno - 06/24/2025 8:11 AM EDT Pt returned call to office, she is now reporting sudden onset of neck pain and increased confusion today. Advised pt be seen in ED since she is having new/worsening symptoms. Patient's son states he will bring her to [facility] ED for evaluation. * Telephone Encounter - HOLLI Marr CNP - [...] requesting page: Richie Phone number of caller: [phone] Facility requesting page: patient Reason for page: tightness in chest, low urine output, and discomfort Provider paged: HOLLI Marr CNP Practice name of paged provider: Cardiothoracic Surgery Page placed to #: [phone] Time page was sent or provider contacted: 2:28pm Method of contact: secure chat Page content: Brie Reeder! Patient is requesting a returned call to [phone] to discuss c/o tightness in chest, low urine output, and discomfort. Patient states that she recently had cardiac surgery on 06/18/25 and currently having complications. Thank you. documented in this [facility]08-03-2025 Telephone encounter Note* Telephone Encounter - HOLLI [...] will go to the ED for evaluation. [place] [id number] Miscellaneous Notes* Telephone Encounter - HOLLI Marr [...] requesting page: Richie Phone number of caller: [phone] Facility requesting page: patient Reason for page: tightness in chest, low urine output, and discomfort Provider paged: HOLLI Marr CNP Practice name of paged provider: Cardiothoracic Surgery Page placed to #: [phone] Time page was sent or provider contacted: 2:28pm Method of contact: secure chat Page content: Brie PRABHJOT Reeder! Patient is requesting a returned call to [phone] to discuss c/o tightness in chest, low urine output, and discomfort. Patient states that she recently had cardiac surgery on 06/18/25 and currently having complications. Thank you. documented in this [facility]08-03-2025 Telephone encounter Note* Telephone Encounter - Cathleen Lim - 06/23/2025 2:29 PM EDT Name of caller requesting page: Richie Phone number of caller: [phone] Facility requesting page: patient Reason for page: tightness in chest, low urine output, and discomfort Provider paged: HOLLI Marr CNP Practice name of paged provider: Cardiothoracic Surgery Page placed to #: [phone] Time page was sent or provider contacted: 2:28pm Method of contact: secure chat Page content: Brie Reeder! Patient is requesting a returned call to [phone] to discuss c/o tightness in chest, low urine output, and discomfort. Patient states that she recently had cardiac surgery on 06/18/25 and currently having complications. Thank you. [facility]qekvo84-60-6[facility]08-02-2025 Hospital course Narrative* HOLLI Marr CNP - 06/22/2025 10:50 AM EDT Images from the original note were not included. Discharge Summary: Cardiothoracic Surgery Richie Armas, 75 y.o., 1950 ADMIT DATE: 06/14/2025 DISCHARGE DATE: 06/22/2025 VISIT STATUS: Admission CODE STATUS: Full Code DISCHARGING SURGEON: Anders Johnston DO, Office Number: [phone] DISCHARGE DIAGNOSES: MVCAD s/p CABG NSTEMI HLD Raynaud's Osteoporosis Anxiety/depression Chronic back pain IBS/constipation Hypothyroidism Post operative Pulm Management: Normal Post-operative Course Post-operative Atrial Fibrillation: []Yes [x] No Acute blood loss anemia/consumptive coagulopathy BMI CLASSIFICATION:Overweight (BMI 25.0-29.9) TREATMENT TEAM: Primary Care Physician: NARINDER CRUM Bar Tacker Sewing Machine: Dr. Hong SURGERY: s/p CABGx3 (VICK to LAD, rsvg to OM, rsvg RPDA) left lower leg EVH with Dr. Johnston on 06/18/25 HOSPITAL COURSE: 75 year old female patient with PMHx that includes CKD2, Raynaud's, anxiety/depression, IBS/constipation, GERD, fibromyalgia, hypothyroidism, chronic low back pain S/P lumbar spinal surgery that presented to [facility] on 06/14/2025 from [facility]. Patient reports worsening chest pain associated with daily walks which started approximately 1 week ago. Initially she attributed this to her prior diagnosis of GERD but when she experienced pain 06/14 that did not resolve with rest she presented to [facility]. LHC at [facility] demonstrated severe multivessel disease and she was transferred to [facility] for CABG evaluation. Agreeable to CABG, went [...] Your Medications These medications were sent to [facility]/pharmacy #[id number] [address] aspirin 81 MG chewable tablet clopidogrel 75 [...] weight restriction approximate end date: FOLLOW UP: Elva CABRERA July 04 at 10:30pm [address] [place] [address] Dept: [phone] Dept CORE CARDIAC MEDICATIONS PRESCRIBED AT DISCHARGE: [...] OF SERVICE: 1:51 PM documented in this [facility]08-02-2025 Hospital Discharge instructions* Discharge Instructions* HOLLI Marr CNP - 06/22/2025 10:42 AM EDT Images from the original note were not included. [facility]: Cardiothoracic Surgery [address] [place] [address]. [address] [facility] #[phone] Notify us if the following occur - [...] Cardiothoracic Surgery: Symptom Management Office phone number: [phone] Office is open 8:30 am -4 pm. [...] Call cardiothoracic surgery line for further instructions: [phone] Office is open 8:30 am -4 pm. 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 No Past Surgical History: No past surgical history on file. Immunization History: Immunization History Administered Date(s) Administered COVID-19, mRNA, LNP-S, PF, 50 mcg/0.5 mL 08/23/2023, 07/27/2024, 06/04/2025 Covid-19, Moderna Bivalent Booster, (Age 6y-11y) 09/21/2022 Covid-19, Pfizer Hopkisn Top, Do Not Dilute, (Age 12 Y+), [...] 6.9 oz) Mental Status: {KERI Patient Mental Status:69181} IV Access: {KERI IV Access:53736} Nursing Mobility/ADLs: Walking {SUNNY ADL:19237::Independent} Transfer {SUNNY ADL:67222::Independent} Bathing {SUNNY ADL:61609::Independent} Dressing {SUNNY ADL:38803::Independent} Toileting {SUNNY ADL:78094::Independent} Feeding {SUNNY ADL:30571::Independent} Dealer Sales Manager {SUNNY ADL:40499::Independent} Med Delivery {yes/no:77888} Wound Care Documentation and Therapy: Wound/Incision 06/18/25 [...] Number of days: 0 Elimination: Continence: Bowel: {yes/no:57363} Bladder: {yes/no:12283} Urinary Catheter: {KERI Urinary Catheter:75509} Colostomy/Ileostomy/Ileal Conduit: {YES / NO:} Date of [...] Weight: 63.7 kg Safety Concerns: {KERI Safety Concerns:07731} Impairments/Disabilities: {KERI Impairments/Disabilities:58210} Nutrition Therapy: Current Nutrition Therapy: {KERI Diet List:05162} Routes of Feeding: {routes of feedin} Liquids: {liquid consistency:92250} Daily Fluid Restriction: {daily fluid restriction:48415} Last Modified Barium Swallow with Video (Video Swallowing Test): {done not done:03068} Treatments at the Time of Hospital Discharge: Respiratory Treatments: Oxygen Therapy: {Therapy; copd oxygen:16324} Ventilator: {KERI Ventilator:74508} Rehab Therapies: {GEN THERAPY DISCIPLINE SCAL:2713258} Weight Bearing Status/Restrictions: {POD WEIGHT BEARIN} Other Medical Equipment (for information only, NOT a DME order): {Assistive Devices DME:42916} Other Treatments: Patient's personal belongings (please select all that are sent with patient): {KERI Patient Belongings:31682} RN SIGNATURE: {E-signature:06366} CASE MANAGEMENT/SOCIAL WORK SECTION Inpatient Status Date: Discharging to Facility/ Agency Name: [facility] Address: [address] [place] [address] Dialysis Facility (if applicable) Name: Address: Dialysis Schedule: Phone: Fax: Manager Development/Basket Hand Braider signature: {E-signature:18544} PHYSICIAN SECTION Name: Richie Armas Prognosis: {Rehab Prognosis:67344} Condition at Discharge: {Patient Condition:75138} Rehab Potential (if transferring to Rehab): {Rehab Prognosis:38639} Recommended Labs or Other Treatments After Discharge: The individual is being admitted to a nursing facility directly from an [facility] or a unit of a surgical specialty hospital-coordinated hlth that is not operated by or licensed by [facility] under section 5119.14 or 5160-3-15.1 5 The individual requires the level of services provided by a nursing facility for the condition for which he or she was treated in the hospital and, Physician Certification: I certify the above information and transfer of Richie Armas is necessary for the continuing treatment of the diagnosis listed and that she requires {KERI Level of Care:56192} for {greater less than:48712} 30 days. Update Admission H&P: {KERI Changes in H&P:03181} PHYSICIAN SIGNATURE: {E-signature:40274} documented in this [facility]08-02-2025 History of Present illness Narrative* Quita Urbano MD - 06/22/2025 7:44 AM EDT Images from the original note were not included. [facility] [place] [facility] Interventional Cardiology NAME: Richie Armas DATE OF : 1950 CHIEF COMPLAINT NSTEMI ASSESSMENT AND PLAN NSTEMI CAD s/p CABG x 3 Patient remains [...] is an 75 y.o. female presents from [facility]25 with past medical history significant [...] was found to be NSTEMI. [facility]. She was transferred to [facility] for CABG evaluation. She had a normal [...] QT Interval 407 QTC Interval 430 P [place] 48 QRS [place] 61 T Wave [place] 0 FL Interval 150 Impression Sinus rhythm Compared to [...] atelectasis. Quita Urbano M.D. Fellow Interventional Cardiology [facility] - Cardiology [1] Allergies Allergen Reactions [...] known prior cardiac history wh[facility]ed initially [facility] on 06/14/2025 with some chest discomfort. She initially thought she was having acid reflux-like symptoms but symptoms worsened with radiation to her arm so she presented at [facility]. She was found to have elevated troponin and underwent coronary angiography that showed multivessel coronary artery disease with subtotally occluded RCA, high-grade lesion obtuse marginal branch and obstructive disease in the LAD. She was subsequently transferred to [facility] for bypass consideration. She had a normal [...] will follow-up with the cardiology team in [facility] after she is done following up [...] the signing provider directly. Sandip Quezada MD, [facility], [facility] Audiovisual Aids Technician [facility], [facility] [address] [address] p [phone] f [phone] [email or web address] * Elva Reeder, FIREBRICK LAYER HELPER - COSTUMER - 06/22/2025 5:53 AM EDT Images from the original note were not included. Cardiothoracic Surgery/Critical Care Daily Progress Note PATIENT NAME: Richie Armas DATE: 06/22/25 HPI: 75 year old female patient with PMHx that includes CKD2, Raynaud's, anxiety/depression, IBS/constipation, GERD, fibromyalgia, hypothyroidism, chronic low back pain S/P lumbar spinal surgery that presented to [facility] on 06/14/2025 from [facility]. Patient reports worsening chest pain associated with daily walks which started approximately 1 week ago. Initially she attributed this to her prior diagnosis of GERD but when she experienced pain 06/14 that did not resolve with rest she presented to [facility]. LHC [facility] demonstrated severe multivessel disease and [facility] [facility] for [facility]G evaluation. Agreeable to CABG, went to OR on 06/18/25. Surgery/Procedure: 06/18/25: s/p CABGx3 (VICK to LAD, rsvg to OM, rsvg RPDA) left lower leg EVH with Dr. Vicente Mulligan History: 06/22/25, POD# 4: VSS on RA, [...] wire(s) CXR: BMP: Recent Labs 06/20/25 0010 06/21/253 06/22/25 0047 NA 134* 135* 137 K 3.9 4.0 3.9 CL 101 101 103 CO2 25 22* BUN 13 11 12 CREATININE 0.76 0.75 0.59 CALCIUM 9.0 8.9 8.6* MG 2.0 1.7 1.8 CBC: Recent Labs 06/20/25 0010 06/21/253 06/22/25 0047 WBC 7.6 8.0 7.5 HGB [...] TTE 06/16/25- EF 50% Blood Conservation: transfused Bar Tacker Sewing Machine: Sandra cardiology Cosigned by Latrell Kidd DO at 06/22/2025 6:20 PM EDT * Andres Laurent, PT - 06/21/2025 9:40 AM EDT Images from the original note were not included. PHYSICAL THERAPY [facility] Treatment Note Name/MRN: Richie Armas ([id number]) Date of : 1950 Age: 75 y.o. Room/Bed: T1/T1 A Discharge Recommendation: Home with assist PRN, [...] unit Gait) Andres Laurent PT * Tammi Boateng APRN - COSTUMER - 06/21/2025 8:48 AM EDT Images from the original note were not included. [facility] [place] [facility] Interventional Cardiology NAME: Richie Armas DATE OF [...] is an 75 y.o. female presents from [facility] on 06/14/25 with past medical history significant [...] was found to be NSTEMI. HerLHC at [facility] showed MVCAD. She was transferred to [facility] for CABG evaluation. She had a normal [...] QT Interval 407 QTC Interval 430 P [place] 48 QRS [place] 61 T Wave [place] 0 FL Interval 150 Impression Sinus rhythm Tracing reviewed [...] 06/21/2025 6:54 AM EDT Tammi Boateng MSN, FIREBRICK LAYER HELPER, CAMERA REPAIRMAN-C - Date of Service: 06/14/2025 Nurse Practitioner in Interventional Cardiology [facility] - Cardiology [1] Allergies Allergen Reactions [...] S/P lumbar spinal surgery that presented to [facility] on 06/14/2025 from [facility]. Patient reports worsening chest pain associated with daily walks which started approximately 1 week ago. Initially she attributed this to her prior diagnosis of GERD but when she experienced pain 06/14 that did not resolve with rest she presented to [facility] ED. LHC at [facility] demonstrated severe multivessel disease and she was transferred to [facility] for CABG evaluation. Agreeable to CABG, went [...] TTE 06/16/25- EF 50% Blood Conservation: transfused Bar Tacker Sewing Machine: Sandra cardiology I have personally performed a ebrq-kh-xkab diagnostic evaluation on this patient on date [...] of 20 minutes were spent between the oalq-dx-pdox encounter, physical exam, reviewing the medical history, [...] original note were not included. PHYSICAL THERAPY [facility] Treatment Note Name/MRN: Richie Armas ([id number]) Date of : 1950 Age: 75 y.o. Room/Bed: T1/ A Discharge Recommendation: Home with assist PRN, [...] TP) Variance: 10 (+ 10 mins from [phone]) Brianan Wright PT * HOLLI Jeter CNP - 06/20/2025 2:40 PM EDT Images from [...] the original note were not included. Cardiothoracic Surgery/[facility] Progress Note PATIENT NAME: Richie Armas DATE: 06/20/25 HPI: Richie Armas is a 75 year old female patient with PMHx that includes CKD2, Raynaud's, anxiety/depression, IBS/constipation, GERD, fibromyalgia, hypothyroidism, chronic low back pain S/P lumbar spinal surgery that presented to [facility] on 06/14/2025 from [facility]. Patient reports worsening chestpain associated with daily walks which started approximately 1 week ago. Initially she attributed this to her prior diagnosis of GERD but when she experienced pain 06/14 that did not resolve with restshe presented to [facility]. LHC at [facility] demonstrated severe multivessel disease and she was transferred to [facility] for CABG evaluation. Agreeable to CABG, went [...] Blood Conservation: None noted in post-operative period Bar Tacker Sewing Machine: Sandra Cardiology Cosigned by Latrell Kidd DO at 06/22/2025 6:20 PM EDT * HOLLI Garcia CNP - 06/20/2025 9:12 AM EDT Department of Internal Medicine Division of Endocrinology, Diabetes, & Metabolism Endocrinology Note Patient Name: Richie Armas : 1950 AGE: 75 y.o. Room/Bed: [facility]/[address] Admission Date: 06/14/2025 Visit Date: 06/20/2025 Reason for Endocrine Consult: post heart Provider/Team Requesting Consult: cts PCP: NARINDER CRUM Outpt Policy Director: No ASSESSMENT: Stress hyperglycemia Steroid induced hyperglycemia [...] CHOLHDLRATIO 4 06/15/2025 No results found for: [id number] Lab Results Component Value Date TSH 2.71 [...] Electronically Signed On 06-14-2025 17:05:24 EDT by Elva Germain History/Other: Past Medical History: Medical History[4] [...] original note were not included. OCCUPATIONAL THERAPY [facility] Treatment Note Name/MRN: Richie Armas ([id number]) Date of : 1950 Age: 75 y.o. [...] AM EDT * Tammi Boateng APRN - COSTUMER - 06/20/2025 7:47 AM EDT Images from the original note were not included. [facility] [place] [facility] Interventional Cardiology NAME: Richie Armas DATE OF [...] is an 75 y.o. female presents from [facility] on 06/14/25 with past medical history significant [...] was found to be NSTEMI. [facility]HC [facility] showed MVCAD. She was transferred to [facility] for CABG evaluation. She had a normal [...] QT Interval 407 QTC Interval 430 P [place] 48 QRS [place] 61 T Wave [place] 0 FL Interval 150 Impression Sinus rhythm Tracing reviewed [...] 06/20/2025 8:01 AM EDT Tammi Boateng MSN, FIREBRICK LAYER HELPER, CAMERA REPAIRMAN-C - Date of Service: 06/14/2025 Nurse Practitioner in Interventional Cardiology [facility] - Cardiology [1] Allergies Allergen Reactions [...] mL, Last Rate: Stopped (06/18/251912) * Melanie Landry OT - 06/19/2025 3:31 PM EDT Images from the original note were not included. OCCUPATIONAL THERAPY [facility] Initial Evaluation Name/MRN: Richie Armas ([id number]) Evaluation Date: 06/19/2025 Date of : 1950 Admission Date: 06/14/2025 4:44 PM Age: 75 y.o. Room/Bed: T1-101/T1-101 A Discharge Recommendation: Home with assist PRN, Home with Home health OT Equipment Needed: Yes Mobility Devices: ADL Assistive Devices ADL Assistive Devices: Shower Chair with back Assessment IMPRESSION: Pt presents to [facility] with NSTEMI s/p CABG x3 on 06/18. Pt is currently functioning at CGAfor functional transfers, CGA for functional mobility with no device, CGA-SBA for ADLs. Pt is limited by sternal precautions, post op pain, decreased strength, balance, endurance, impacting ADL performance and will benefit from acute OT services to address noted deficits in preparation for home going. Pt is recommended for home with [facility] OT with PRN assist, children [...] Date Noted NSTEMI (non-ST elevation myocardial infarction) ([facility]) 06/14/2025 Medical Precautions: No active isolations Proper PPE donned/doffed in accordance with facility standards. Fall Risk: Sal Fall Risk Score: 35 (Medium Risk) Precautions/Restrictions: Sternal Precautions: No lifting greater than 10 lbs. 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 Prior Level of Function [...] of Care supervision is transferred to a [facility] Occupational Therapist. Goals and/or treatment plan was established in collaboration with patient/family/other representatives. [1] No past medical history on file. [2] No past surgical history on file. * Brianna Kyle, PT - 06/19/2025 2:49 PM EDT Images from the original note were not included. PHYSICAL THERAPY [facility] Initial Evaluation Name/MRN: Richie Armas ([id number]) Evaluation Date: 06/19/2025 Date of : 1950 [...] Date Noted NSTEMI (non-ST elevation myocardial infarction) ([facility]) 06/14/2025 Medical Precautions: No active isolations [...] upon return to home. 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 Prior Level of Function Prior Level of [...] of Care supervision is transferred to a [facility] Physical Therapist. Goals and/or treatment plan was established in collaboration with patient/family/other representatives. [1] No past medical history on file. [2] No past surgical history on file. * Fiona Vega, FIREBRICK LAYER HELPER - COSTUMER - 06/19/2025 6:10 AM EDT Images from the original note were not included. Cardiothoracic Surgery/[facility] Progress Note PATIENT NAME: Richie Armas DATE: 06/19/25 HPI: Richie Armas is a 75 year old female patient with PMHx that includes CKD2, Raynaud's, anxiety/depression, IBS/constipation, GERD, fibromyalgia, hypothyroidism, chronic low back pain S/P lumbar spinal surgery that presented to [facility] on 06/14/2025 from [facility]. Patient reports worsening chestpain associated with daily walks which started approximately 1 week ago. Initially she attributed this to her prior diagnosis of GERD but when she experienced pain 06/14 that did not resolve with restshe presented to [facility] ED. LHC at [facility] demonstrated severe multivessel disease and she was transferred to [facility] for CABG evaluation. Agreeable to CABG, went [...] (Calculated): 24.88 BMP: Recent Labs 06/18/25 0015 06/18/25151406/19/25 0032 NA 133* 137 139 K 4.6 [...] or diaphoretic. Neck: Comments: Central line and [place]. Cardiovascular: Rate and Rhythm: Normal rate and [...] -Remove arterial line once off pressors. Remove [place]. Add toradol to pain regimen. -Will consider [...] Blood Conservation: None noted in post-operative period Bar Tacker Sewing Machine: Sandra Cardiology Cosigned by Latrell Kidd DO at 06/19/2025 4:35 PM EDT Associated attestation - Latrell Kidd DO - 06/19/2025 4:35 PM EDT I have personally performed a pnmp-zd-wojn diagnostic evaluation on this patient on date of /30/25. History, labs, imaging studies, and electronic medical [...] Valerio RRT - 06/18/2025 10:44 PM EDT [facility] Respiratory Care Department Progress Note Spontaneous Awakening [...] 06/18/25 1515 06/18/25 1933 PHART 7.394 7.300* ABI2PDT 38.9 48.6* PO2ART 359.3* 159.7* QIJ6AZI 23.2 23.4 [id number] Ventilator Ventilator Does this patient meet criteria for termination of mechanical ventilation Yes- Notified physician below Name of physician notified via secure chat or in person : (NA if patient did not meet criteria) Comments: Thank you for involving Respiratory in the care of this patient, * Shayna Dodd, DO - 06/18/2025 6:54 AM EDT Images from the original note were not included. [facility] [place] [facility] CCU PROGRESS NOTE Patient Name: Richie Armas : 1950 Subjective: Richie Armas is a 75 y.o. female with PMH CKD 2, Raynaud's, anxiety/depression, IBS/constipation,GERD, fibromyalgia, hypothyroidism, chronic low back pain S/P lumbar spinal surgery that presented to [facility] on 06/14/2025 from outside facility ([facility]). 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 Patient transferred to [facility] for CABG eval and loaded with ASA, heparin, started on nitroglycerin gtt. Echo on 06/16/25 showed normal LV function, EF 63%. Interval History: Overnight patient began experiencing an increase in CP, 08/30 substernal, was restarted on nitroglycerin gtt titrated [...] QT Interval 363 QTC Interval 469 P [place] 76 QRS [place] 131 T Wave [place] 23 FL Interval 155 Impression Sinus tachycardia Probable left [...] Oral, BID WC ceFAZolin, 2,000 mg, IntraVENous, Bleach Supervisor to OR chlorhexidine, , Topical, Once ezetimibe, [...] known prior cardiac history whopresented initially to [facility] on 06/14/2025 with some chest discomfort. She initially thought she was having acid reflux-like symptoms but symptoms worsened with radiation to her arm so she presented at [facility]. She was found to have elevated troponin and underwent coronary angiography that showed multivessel coronary artery disease with subtotally occluded RCA, high-grade lesion obtuse marginal branch and obstructive disease in the LAD. She was subsequently transferred to [facility] for bypass consideration. The first night she [...] the signing provider directly. Sandip Quezada MD, [facility], [facility] Audiovisual Aids Technician [facility] [place] [address] [place] [address] [place] [address] p [phone] f [phone] [email or web address] * Shayna Dodd, DO - 06/17/2025 6:15 AM EDT Images from the original note were not included. [facility] [place] [facility] CCU PROGRESS NOTE Patient Name: Richie Armas : 1950 Subjective: Richie Armas is a 75 y.o. female with PMH CKD 2, Raynaud's, anxiety/depression, IBS/constipation,GERD, fibromyalgia, hypothyroidism, chronic low back pain S/P lumbar spinal surgery that presented to [facility] on 06/14/2025 from outside facility ([facility]). 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 Patient transferred to [facility] for CABG eval and loaded with ASA, [...] QT Interval 436 QTC Interval 470 P [place] 61 QRS [place] 49 T Wave [place] 33 FL Interval 167 Impression Unknown rhythm, irregular rate [...] demonstrates ST depressions in V2-V5 - Emergent [facility] (06/14/25): severe multivessel CAD (LAD 70%, subtotally [...] known prior cardiac history whopresented initially to [facility] on 06/14/2025 with some chest discomfort. She initially thought she was having acid reflux-like symptoms but symptoms worsened with radiation to her arm so she presented at [facility]. She was found to have elevated troponin and underwent coronary angiography that showed multivessel coronary artery disease with subtotally occluded RCA, high-grade lesion obtuse marginal branch and obstructive disease in the LAD. She was subsequently transferred to [facility] for bypass consideration. The first night she [...] the signing provider directly. Sandip Quezada MD, [facility], [facility] Audiovisual Aids Technician [facility] Cardiovascular [address] [address] p [phone] f [phone] [email or web address] * Krysten Wilkes - 06/16/2025 2:52 PM EDT Nutrition rescreen completed. Chart reviewed. Patient to be monitored and followed by the diet a/c technician. BEENA Alvarado * Shayna Dodd DO - 06/16/2025 6:20 AM EDT Images from the original note were not included. [facility] [place] [facility] CCU PROGRESS NOTE Patient Name: Richie Armas : 1950 Subjective: Richie Armas is a 75 y.o. female with PMH CKD 2, Raynaud's, anxiety/depression, IBS/constipation,GERD, fibromyalgia, hypothyroidism, chronic low back pain S/P lumbar spinal surgery that presented to [facility] on 06/14/2025 from outside facility ([facility]). 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 Patient transferred to [facility] for CABG eval and loaded with ASA, [...] QT Interval 467 QTC Interval 473 P [place] 59 QRS [place] 68 T Wave [place] 0 FL Interval 171 Impression Sinus rhythm Low voltage, [...] with NSTEMI to outside hospital. Cath showed [id number] CAD. Transferred here for evaluation for possible [...] from the original note were not included. [facility] [place] [facility] CCU PROGRESS NOTE Patient Name: Richie Armas : 1950 Subjective: Richie Armas is a 75 y.o. female with PMH CKD 2, Raynaud's, anxiety/depression, IBS/constipation,GERD, fibromyalgia, hypothyroidism, chronic low back pain S/P lumbar spinal surgery that presented to [facility] on 06/14/2025 from outside facility ([facility]). 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 Patient transferred to [facility] for CABG eval and loaded with ASA, [...] QT Interval 404 QTC Interval 440 P [place] 59 QRS [place] 100 T Wave [place] 0 FL Interval 160 Impression Sinus rhythm Probable left [...] with NSTEMI to outside hospital. Cath showed iaxioiq5p CAD. Transferred here for evaluation for possible CABG. Placed on nitro and heparin drips for symtpoms. Pt feeling well this morning, no further symptoms. CT surgery to see today to evaluate for possible CABG. documented in this [facility]08-01-2025 Miscellaneous Notes* Care Coordination - Federica Torres RN - 06/21/2025 8:00 AM EDT Care Management Progress Note Short Medical why still here: Telemetry, monitor for A-Fib, treat constipation and cont PT/OT. Planned Discharge Disposition: Home Health Services. PT/OT recommending home therapy. Discharge plan home with Spouse and [facility] Care. Barriers/Today we still Wait: Administering IV medications, Clinical stability Length of Stay (Days): 7 GMLOS: 1.7 * Care Coordination - Unknown Case Management - 06/19/2025 11:44 AM EDT Patient Choice Patient Name: RICHIE ARMAS Date of : 1950 All Providers Sent Referral Name: [facility] Phone: [phone] Address: [address] [place] [address] * Home Care - Benita Dixon RN - 06/19/2025 11:38 AM EDT Start PACC Note Home Health Referral Educated patient on Home Care and services available. Patient offered choice of available HHC and agreeable to SN/PT services with [facility]. Care Types: None Isolation Precautions: No active isolations Social Determinates of Health: Tobacco Use: Unknown (04/05/2020) Received from [facility] Patient History Smoking Tobacco Use: Never Smokeless [...] is noted as yes - consider a PRODUCTION MINER evaluation once the patient returns home. START PATIENT REGISTRATION INFORMATION Order Information Order Signing Physician: Anders Johnston DO Service Ordered RN ?: Yes Service Ordered PT ?: Yes Service Ordered OT ?: No Service Ordered ST ?: No Service Ordered PRODUCTION MINER?:No Service Ordered FREIGHT SEPARATOR?: No Following Physician: Anders Johnston DO Following Physician Overseeing Physician: Anders Johnston DO (Required for Residents only) Agreeable to Follow? Yes Date/Time of Call 06/19/25 11:38 AM, Spoke with: cts protocol Care Coordination Same Day SOC?: No Primary Care Physician: NARINDER CRUM Primary Care Physician Primary Care Physician Address: [address] [place] [phone] Visit Instructions: N/A Service Discharge Location Type: Home with Home Care Service Facility Name: N/A Service Floor Facility: N/A Service Room No: N/A Demographics Patient Last Name: Pawel Patient First Name: Richie Language/Communication Barrier: no Service Address: [address] [place] [address] Service City: [place] Service ST: [place] Service ZIP: [address] Service (home) Other phone numbers: Telephone Information: Emergency Contact: Extended Emergency Contact Information Primary Emergency Contact: Tomasz Armas Mobile Relation: Spouse Secondary Emergency Contact: All Armas Mobile Relation: Daughter Preferred language: Congolese 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 No Admission Information Admit Date: 06/14/2025 Patient status at discharge: Inpatient Admitting Diagnosis: Non-ST elevation (NSTEMI) myocardial infarction (HCC) [I21.4] NSTEMI (non-ST elevation myocardial infarction) (HCC) [I21.4] Caregiver Information Caregiver First Name: na Caregiver Last Name: na Caregiver Relationship to Patient na Caregiver Phone Number: na Caregiver Notes: N/A [employer] HIGHTECH: HI TECH - NEXT DAY [...] Diabetic: blood glucose testing as directed by PCP/Policy Director -For recent heart surgery if patient discharged on Coumadin verify need for INR draw on visit. Activity/Weight Bearing: -Up with assistance: up in chair for all meals, ambulate 3-4 times a day -Stretching exercises per PT discharge instructions Discharge Date: pending Referral Source-PACC: (Hospital/Unit): [facility] / / A End PACC Note * Care Coordination [...] 3. ANTONIO SURGEON: Anders Johnston DO MS ENVIRONMENTAL SERVICES SUPERVISOR: Josy Chavarria COMPLICATIONS: None intra-op CONDITION: Stable DESCRIPTION OF PROCEDURE: The patient was prepped and draped in the appropriate manner, having undergone general endotrachealanesthetic in addition to [place] catheter placement, arterial line, and corado catheter [...] FACOS Cardiothoracic Surgery * Care Coordination - Fiona Vega APRN - PRABHJOT - 06/17/2025 4:34 PM EDT Images from [...] 06/19. Planned Discharge Disposition: Home Health Services, [facility] following for post-op needs. PT/OT evaluation pending post-op. 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 Barriers/Today we still [...] carotid ultrasounds, vein mapping. documented in this [facility]08-01-2025 Nurse Note* Tanja Matamoros RN - 06/21/2025 [...] questions. Tanja Matamoros RN documented in this [facility]07-30-2025 Consult note* Ángel Rivera - 06/19/2025 10:07 AM EDTAssociated Order(s): IP CONSULT TO CARDIAC REHAB Received referral and reviewed chart. Phase II Cardiopulmonary Rehab Referral discussed with Richie Armas. Patient prefers cardiopulmonary rehab at [facility]. She is familiar with that location and [...] intake in I/O flowsheet to monitor. Provided [employer] Diet for Heart Health handout. Unable to [...] Total Energy Requirements (kcals/day): 22-25 kcal/kg = 9195-5925 kcal Weight Used for Protein Requirements: Current [...] lb 6.9 oz) Weight Source: Not Specified [place] Body Weight (lbs) (Calculated): 115 lbs [place] Body Weight (Kg) (Calculated): 52 kg % [place] Body Weight (Calculated): 122.1 % BMI (kg/m2) [...] soon to determine Jennifer Al RD Contact: [employer] or *[id number] * Magaly Danielson APRN - [employer] - 06/19/2025 8:53 AM EDTAssociated Order(s): IP CONSULT TO ENDOCRINOLOGY Department of Internal Medicine Division of Endocrinology, Diabetes, & Metabolism Endocrinology Note Patient Name: Richie Armas : 1950 AGE: 75 y.o. [facility] Admission Date: 06/14/2025 Visit Date: 06/19/2025 Reason for Endocrine Consult: post heart Provider/Team Requesting Consult: cts PCP: NARINDER CRUM Outpt Policy Director: No ASSESSMENT: Stress hyperglycemia Steroid induced hyperglycemia [...] CHOLHDLRATIO 4 06/15/2025 No results found for: [id number] Lab Results Component Value Date TSH 2.71 [...] Electronically Signed On 06-14-2025 17:05:24 EDT by Elva Germain History/Other: Past Medical History: Medical History[4] [...] 06/19/2025 10:38 PM EDT * HOLLI Jeter CNP - 06/18/2025 4:12 PM EDT Images from the original note were not included. [facility]: Critical Care Consultation Note Date: 06/18/25 PATIENT NAME: Richie Armas : 1950 (75 y.o.) Reason for Consult: Critical Care & Vent Management HPI: Richie Armas is a 75 year old female patient with PMHx that includes CKD2, Raynaud's, anxiety/depression, IBS/constipation, GERD, fibromyalgia, hypothyroidism, chronic low back pain S/P lumbar spinal surgery that presented to [facility] on 06/14/2025 from [facility]. Patient reports worsening chestpain associated with daily walks which started approximately 1 week ago. Initially she attributed this to her prior diagnosis of GERD but when she experienced pain 06/14 that did not resolve with restshe presented to [facility]. LHC at [facility] demonstrated severe multivessel disease and she was transferred to [facility] for CABG evaluation. Agreeable to CABG, went [...] Comments: ETT/OG. Neck: Comments: [place] and [place]. Cardiovascular: Rate and Rhythm: Regular rhythm. Bradycardia [...] PM EDT I have personally performed a mqcc-ns-uhim diagnostic evaluation on this patient on date of /30/25. History, labs, imaging studies, and electronic medical record have been reviewed by me. This note documented by the []Critical Care Fellow []house sitter [x]CRISTIANO reflects my history, exam, and medical decision making. I have reviewed and agree with the care plan. Changes were made in the orders as necessary. ROS documentation was reviewed and negative unless otherwise stated in HPI. Additional pertinent interval history, ROS, and physical exam findings: AdmitDate = 06/14/2025 LOS: 5 Came from [facility]. P/w worsening CP with exertion. Prior to presentation to OSH her CP was not resolving with rest. 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 Transferred to [facility] for CABG. Assessment: MVCAD s/p CABG x3 [...] a 75 y.o. female who presented to [facility], underwent C demonstrating severe multivessel CAD. ASSESSMENT / PLAN: [...] chloride, sodium chloride 0.9% documented in this [facility]07-29-2025 Note* Addendum Note - Naresh Motta CRNA - 06/18/2025 4:13 PM EDT Addendum created 06/18/251612 by Naresh Motta CRNA Intraprocedure Meds edited (Anesthesia) [facility] HospitalPkaqsu02-05-1026 NoteAddendum created 06/18/251612 by Naresh Motta CRNA Intraprocedure Meds edited (Anesthesia)[facility]07-29-2025 Miscellaneous Notes* Addendum Note - Naresh Motta CRNA - 06/18/2025 4:13 PM EDT Addendum created 06/18/251612 by Naresh Motta CRNA Intraprocedure Meds edited (Anesthesia) * Anesthesia Discharge Note - Naresh Motta CRNA - 06/18/2025 4:12 PM EDT Patient: Richie Armas Procedure Summary Date: 06/18/25 Room / Location: [address] Operating Room Anesthesia Start: 1154 Anesthesia Stop: 1605 Procedures: CORONARY ARTERY BYPASS GRAFT (Chest) ECHOCARDIOGRAM, TRANSESOPHAGEAL Diagnosis: NSTEMI (non-ST elevation myocardial infarction) (HCC) Surgeons: Anders Johnston DO Responsible Provider: Naresh [...] criteria has been met. documented in this [facility]07-29-2025 Note* Anesthesia Discharge Note - Naresh Motta CRNA - 06/18/2025 4:12 PM EDT Patient: Richie Armas Procedure Summary Date: 06/18/25 Room / Location: [address] Operating Room Anesthesia Start: 1154 Anesthesia Stop: 1605 Procedures: CORONARY ARTERY BYPASS GRAFT (Chest) ECHOCARDIOGRAM, TRANSESOPHAGEAL Diagnosis: NSTEMI (non-ST elevation myocardial infarction) (HCC) Surgeons: Anders Johnston DO Responsible Provider: Naresh [...] once all PACU criteria has been met. [facility] [id number] Anesthesiology Postoperative evaluation and management note* Anesthesia Postprocedure Evaluation - Naresh Motta CRNA - 06/18/2025 4:12 PM EDT Patient: Richie Armas Procedure Summary Date: 06/18/25 Room / Location: [address] Operating Room Anesthesia Start: 1154 Anesthesia Stop: 1605 Procedures: CORONARY ARTERY BYPASS GRAFT (Chest) ECHOCARDIOGRAM, TRANSESOPHAGEAL Diagnosis: NSTEMI (non-ST elevation myocardial infarction) ([facility]) Surgeons: Anders Johnston DO Responsible Provider: [...] opportunity for questions and acknowledgement of understanding. [facility] [id number] Surgical operation note* Anesthesia Postprocedure Evaluation - Naresh Motta CRNA - 06/18/2025 4:12 PM EDT Patient: Richie Armas Procedure Summary Date: 06/18/25 Room / Location: [address] Operating Room Anesthesia Start: 1154 Anesthesia Stop: 1605 Procedures: CORONARY ARTERY BYPASS GRAFT (Chest) ECHOCARDIOGRAM, TRANSESOPHAGEAL Diagnosis: NSTEMI (non-ST elevation myocardial infarction) ([facility]) Surgeons: Anders Johnston DO Responsible Provider: [...] MD * Anesthesia Procedure Notes - Naresh Motta CRNA - 06/18/2025 12:41 PM EDT Associated [...] and Staff Patient location during procedure: Procedural Resident/DOOR CLAMP OPERATOR: Naresh Motta CRNA Performed: DOOR CLAMP OPERATOR Patient Condition Indications for airway management: airway [...] ARTERY BYPASS GRAFT (Chest) ECHOCARDIOGRAM, TRANSESOPHAGEAL Location: [facility] OR [address] [place] [address] Operating Room Surgeons: Anders Johnston DO Relevant [...] family history on file. documented in this [facility]07-29-2025 Procedure anesthesia Narrative* Procedure Summary Procedure Name [...] mg in sodium chloride 250 mL infusion (Mfb-Lplcnh-Xrbni) 0.15 mg ceFAZolin (Ancef) vial 1 g [...] Date: 06/18/25; Removal Time: 224606/18/25 1206 by Narehs Motta CRNA 06/18/25 224 by Kale Yates RRT documented in this encounter [facility] [id number] Anesthesiology procedure note* Anesthesia Procedure Notes - [...] Staffing Performed: anesthesiologist Anesthesiologist: Naresh Lim MD [facility] [id number] [facility]07-29-2025 Anesthesiology procedure note* Anesthesia Procedure [...] well with no complications. Staffing Performed: SRNA [facility] [id number] [facility]07-29-2025 Anesthesiology procedure note* Anesthesia Procedure Notes - Naresh Motta CRNA - 06/18/2025 12:40 PM EDTAssociated Order(s): Airway Airway Date/Time: 06/18/2025 12:06 PM Reason: scheduled Airway not difficult General Information and Staff Patient location during procedure: Procedural Resident/DOOR CLAMP OPERATOR: Naresh Motta CRNA Performed: DOOR CLAMP OPERATOR Patient Condition Indications for airway management: airway [...] 21 Number of attempts at approach: 1 T [facility] [id number] [facility]07-29-2025 Anesthesiology Preoperative evaluation and management note* Anesthesia Preprocedure Evaluation - Naresh Lim MD - 06/18/2025 11:41 AM EDT Patient: Richie Armas Procedure Information Date/Time: 06/18/25 1145 Procedures: CORONARY ARTERY BYPASS GRAFT (Chest) ECHOCARDIOGRAM, TRANSESOPHAGEAL Location: [facility] OR Operating Room Surgeons: Anders Johnstno DO Relevant Problems Cardio (+) NSTEMI (non-ST [...] Requests [1] No family history on file. [facility] Work Phone: 1(951) 275-425807-25-2025 [facility]07-25-2025 History and physical note* Elva Hopkins, DO - 06/14/2025 5:07 PM EDT Images from the original note were not included. [facility] [place] [facility] CCU HISTORY & PHYSICAL Patient Name: Richie rAmas : 1950 Date of Admission: 06/14/2025 4:44 PM Established reporting manager: CHRISTOPHER Subjective: Chief Complaint: Chest pain, reflux sensation History of Present Illness: Richie Armas is a 75 y.o. female with PMH CKD 2, Raynaud's, anxiety/depression, IBS/constipation,GERD, fibromyalgia, hypothyroidism, chronic low back pain S/P lumbar spinal surgery that presented to [facility] on 06/14/2025 from outside facility ([facility]). Patient reports worsening chest pain as [...] not resolve with rest she presented to [facility]. LHC at [facility] demonstrated severe multivessel disease and she was transferred to [facility] for CABG evaluation. In [facility] HLU, hemodynamically stable. BP 150/100, HR 68, [...] Electronically Signed On 06-14-2025 17:05:24 EDT by Elva Germain Signed by: Elva Germain MD on 06/14/2025 5:05 PM Last [...] V2-V5 - Loaded with heparin, ASA in [facility] ED, did NOT receive P2Y12i - Emergent LHC (06/14/25): severe multivessel CAD (LAD 70%, subtotally occluded RCA, high-grade obtuse marginal vessel, EF 50%, anterolateral hypokinesis), transferred to [facility] for CABG Eval - Start daily ASA [...] with NSTEMI to outside hospital. Cath showed qxmxskb0r CAD. Transferred here for evaluation for possible CABG. Placed on nitro and heparin drips for symtpoms. Pt feeling well this morning, no further symptoms. CT surgery to see today to evaluate for possible CABG. documented in this [facility]07-25-2025 [facility] Medical Records Department [address] [place] [address] Discharge Summary 06/14/25 1535 MR#: [id number] Acct: [id number] Name: RICHIE ARMAS Rep #: [id number] : 1950 75 From: Thelma Hamm DO [...] was seen in the emergency room at [facility] with complaints of chest discomfort that she described as pressure, this appeared to be initiated by activity. Workup in the emergency room included lab which revealed 93 troponin, patient's chest x- ray was unremarkable, patient's EKG did not show any ischemic changes. Patient was admitted to [facility] ICU, placed on a heparin drip, she [...] care on 06/14/2025 (patient was transferred to [facility] in [facility]) Weight / BMI Weight Weight: 63 kg [...] % (Auto) 53.7, Lymph % (Auto) 36.0, [place] % (Auto) 8.9, Eos % (Auto) 0.6, [...] MPV 10.4, Immature Gran (more content not included)...[facility]07-25-2025 Consult note Author Edil Hong [facility] Note Date/Time June 14, 2025 12:3 7pm [facility] Medical Records Department [address] [place] [address] Consultation - Cardiology 06/14/25 0741 MR#: [id number] Acct: [id number] Name: RICHIE ARMAS Rep #:[id number] : 1950 75 From: Edil Hong MD [...] for cardiology consultation. She is currently pain-free. [facility] Medical History Chronic idiopathic constipation CKD [...] (From Phenergan) AdvReac Other Verified 06/13/25 17:31 Nzybmts-ANW-GrO Reductase AdvReac Pain in Verified 06/13/25 17:31 [...] % (Auto) 53.7, Lymph % (Auto) 36.0, [place] % (Auto) 8.9, Eos % (Auto) 0.6, [...] % (Auto) 55.8, Lymph % (Auto) 34.0, Pre[place] % (Auto) 9.0, Eos % (Auto) 0.5, [...] (Auto) 44.3 L, Lymph % (Auto) 45.0 H,Preble % (Auto) 8.7, Eos % (Auto) 0.9, [...] Neut % (Auto) 53.7,Lymph % (Auto) 36.0, Pre[place] % (Auto) 8.9, Eos % (Auto) 0.6, [...] % (Auto) 55.8, Lymph % (Auto) 34.0, Pre[place] % (Auto) 9.0, Eos % (Auto) 0.5, Baso % (Auto) 0.5, Absolute Neuts (auto) 3.2, Nucleated RBC % 0 06/14/25 01:06: WBC 5.4, RBC 3.80 L, Hgb 12.1, Hct 36.1 L, MCV 95.0, MCH 31.8, MCHC 33.5, Plt Count 220, MPV 10.5, Immature Gran % (Auto) 0.400, Neut % (Auto) 44.3 L, Lymph % (Auto) 45.0 H, Preble % (Auto) 8.7, Eos % (Auto) 0.9, Baso % (Auto) 0.7, Absolute Neuts (auto) 2.4, Nucleated RBC % 0, APTT 111.8 H*, Sodium 137, Potassium 3.9, Chloride 103, Carbon Dioxide 23.9, Anion Gap 11, BUN 19, Creatinine 0.56 L, Est GFR (MDRD) Non-Af 96, BUN/Creatinine Ratio 34.4 H, Uxkufjd39, Calcium 8.4, Total Bilirubin 0.24, Triglycerides 89, Cholesterol 280 H, VLDLCholesterol 18, HDL Cholesterol 96, Cholesterol/HDL Ratio 2.92 Rhythm: EKG: ECHO: Stress Test: Cardiac Cath: PCI: CT Surgery: Holter monitor: EPS: PPM: CXR: Chest CT Scan: Radiography Diagnostic Testing: Radiology Impression Chest X-Ray 06/13/25 17:48 IMPRESSION: No focal consolidations. Reading Location: [id number] 06/14/25 1237 <Electronically signed by Edil Hong MD> Cosigner Signature (if applicable): CC: Dr. Narinder Crum MD~ Signed [facility] Work Phone: 1(305) 402-805207-25-2025 Hospital Discharge instructionsAdditional Instructions Date [facility]: [facility] Work Phone: 1(772) 802-414107-25-2025 Consult note [facility] Medical Records Department [address] [place] [address] Consultation - Cardiology 06/14/25 0741 MR#: [id number] Acct: [id number] Name: RICHIE ARMAS Rep #:[id number] : 1950 75 From: Edil Hong MD [...] for cardiology consultation. She is currently pain-free. [facility] Medical History Chronic idiopathic constipation CKD [...] (From Phenergan) AdvReac Other Verified 06/13/25 17:31 Adgvjtq-YNJ-AuD Reductase AdvReac Pain in Verified 06/13/25 17:31 [...] % (Auto) 53.7, Lymph % (Auto) 36.0, Preble % (Auto) 8.9, Eos % (Auto) 0.6, [...] % (Auto) 55.8, Lymph % (Auto) 34.0, Preble % (Auto) 9.0, Eos % (Auto) 0.5, [...] (Auto) 44.3 L, Lymph % (Auto) 45.0 H,Preble % (Auto) 8.7, Eos % (Auto) 0.9, [...] Neut % (Auto) 53.7,Lymph % (Auto) 36.0, Preble % (Auto) 8.9,Eos % (Auto) 0.6, Baso [...] % (Auto) 55.8, Lymph % (Auto) 34.0, Preble % (Auto) 9.0, Eos % (Auto) 0.5, Baso % (Auto) 0.5, Absolute Neuts (auto) 3.2, Nucleated RBC % 0 06/14/25 01:06: WBC 5.4, RBC 3.80 L, Hgb 12.1, Hct 36.1 L, MCV 95.0, MCH 31.8, MCHC 33.5, Plt Gnfnf135, MPV 10.5, Immature Gran % (Auto) 0.400, Neut % (Auto) 44.3 L, Lymph % (Auto) 45.0 H, Preble % (Auto) 8.7, Eos % (Auto) 0.9, Baso % (Auto) 0.7, Absolute Neuts (auto) 2.4, Nucleated RBC % 0, APTT 111.8 H*, Sodium 137, Potassium 3.9, Chloride 103, Carbon Dioxide 23.9, Anion Gap 11, BUN 19, Creatinine 0.56 L, Est GFR (MDRD) Non-Af 96, BUN/Creatinine Ratio 34.4 H, Tpgwegs09, Calcium 8.4, Total Bilirubin 0.24, Triglycerides 89, Cholesterol 280 H, VLDLCholesterol 18, HDL Cholesterol 96, Cholesterol/HDL Ratio 2.92 Rhythm: EKG: ECHO: Stress Test: Cardiac Cath: PCI: CT Surgery: Holter monitor: EPS: PPM: CXR: Chest CT Scan: Radiography Diagnostic Testing: Radiology Impression Chest X-Ray 06/13/25 17:48 IMPRESSION: No focal consolidations. Reading Location: [facility] 06/14/25 1237 Cosigner Signature (if applicable): CC: Dr. Narinder Crum MD~ Signed [facility]07-24-2025 Discharge summary Author Efren Moss [facility] Note Date/Time June 13, 2025 8:21 pm [facility] Medical Records Department [address] [place] [address] Emergency Department Summary 06/13/25 MR#: [id number] Acct: [id number] Name: RICHIE ARMAS Rep #:[id number] : 1950 75 From: Efren Moss MD [...] Negative for Marfan's Syndrome or Family History [facility] Medical History (Updated 06/13/25 @ 19:48 [...] (From Phenergan) AdvReac Other Verified 06/13/25 17:31 Wzsklna-TSZ-HtM Reductase AdvReac Pain in Verified 06/13/25 17:31 [...] % (Auto) 53.7 Lymph % (Auto) 36.0 Preble % (Auto) 8.9 Eos % (Auto) 0.6 [...] 17:48 IMPRESSION: No focal consolidations. Reading Location: [facility] EKG Initial EKG: Attestation: I personally reviewed and interpreted this EKG as follows: Interpretation: Sinus Rhythm (Rate is 77. FL interval is under 60 ms cures duration 88 ms. QT duration 190 ms. [place] is normal. There is nonspecific changes noted and these are new since December 20, 2023) Management Discussion w/another healthcare provider: Hospitalist (Will speak with the nightphysician Dr. Hui Morel for admission for acute coronary syndrome/non- STEMI. Patient was admitted ICU since she is on nitro and heparin drip.) and Chief Operator Reformer(Spoke with reporting manager. Documentations in the MDM portion of the EMR.) Treatment and Re-Evaluation :: I was informed patient had no improvement with 3 sublingual nitro. Will treat her pressure with IV morphine. Critical Care Time Critical Care Time: Yes Critical care time (excluding procedures): 30-74 minutes (32), Including time spent: (History, physical, documentation, independent to potation of laboratory results and chest x-ray), Discussing w/Patient &/or Family/Multifocal Button Generator, Discussing w/Consultants (Cardiology and hospitalist), Arranging Admission or Transfer and - (Case management for arrangements to help drive home since he has dementia.) Discharge Plan Dx/Rx/DC Orders Clinical Impression: ACS (acute coronary syndrome), Elevated troponin, Exertional angina, Hypercholesterolemia Disposition Disposition: [facility] Discharge Date/Time: 06/13/25 20:11 What to do if you have Problems For any increased pain, shortness of breath, bleeding, nausea or vomiting, chestpain, or any unexpected problems, contact your Primary Care Provider. Call [facility] ([phone]) or report to the closest Emergency Room. Call 911 if necessary. 06/13/252020 <Electronically signed by Efren Moss MD> Cosigner Signature (if applicable): CC: Dr. Narinder Crum MD ~ Signed [facility] Work Phone: 1(360) 684-905107-24-2025 History and physical note Author Hui Morel [facility] Note Date/Time June 13, 2025 7:50 pm [facility] Medical Records Department [address] [place] [address] H&P Exam - Hospitalist 06/13/251914 MR#: [id number] Acct: [id number] Name: RICHIE ARMAS Rep #:[id number] : 1950 75 From: Hui Morel MD PCP: Dr. Narinder Crum MD Status:ADM IN Location: ICU ICU03-1 HPI - General General Date of Admission: 06/13/25 Date of Service: 06/13/25 Chief Complaint: Chest pain HPI Narrative The patient is a 75 y/o F w/ PMHx: Raynaud disease, HTN, HLD, Hypothyroidism, Fibromyalgia, Chronic idiopathic constipation who presents to the [facility] ED on 06/13/25 with exertional chest [...] noted prior. ED physician discussed case with [employer]. Inthe ED patient ministered full-strength aspirin therapy, [...] (From Phenergan) AdvReac Other Verified 06/13/25 17:31 Esrvlsy-CSZ-PiL Reductase AdvReac Pain in Verified 06/13/25 17:31 [...] % (Auto) 53.7, Lymph % (Auto) 36.0, Preble % (Auto) 8.9, Eos % (Auto) 0.6, [...] 17:48 IMPRESSION: No focal consolidations. Reading Location: [facility] Assessment & Plan Assessment/Plan (1) NSTEMI, initial episode of care: PLAN: Plan The patient is a 75 y/o F w/ PMHx: Raynaud disease, HTN, HLD, Hypothyroidism, Fibromyalgia, Chronic idiopathic constipation who presents to the [facility] ED on 06/13/25 with exertional chest [...] prophylaxis: Heparin drip. #11. CODE status: Patient GAAGN is her as a primary and her son is a and living will is currently in place. Discussed CODE status at length includingdifference between FULL code, DNR-CCA and DNR-CC status. Following discussions about the differences in these status, requested Full Code status. Advanced CarePlanning Face to Face Time: 16 minutes. Charges/Coding Visit Charges Inpatient E&M: 59257 Init Hosp L3 Procedures Hospitalists Procedures: 69656 Advncd Care Plan 30 Min 06/13/251949 <Electronically signed by Hui Morel MD> Cosigner Signature (if applicable): CC: Dr. Hui Morel MD; Dr. Narinder Crum MD~ Signed [facility] Work Phone: 1(382) 180-425107-24-2025 Evaluation note* Diagnosis Onset Date Resolution Status Admit Date ACS (acute coronary syndrome) acute June 13, 2025 7:16pm Elevated troponin acute June 132024 7:16pm Exertional angina acute June 132024 7:16pm Hypercholesterolemia acute June 13, 2025 7:16pm NSTEMI, initial episode of care acut e June 13, 2025 7:16pm [facility] Work Phone: 1(187) 741-594307-24-2025 Evaluation note* Diagnosis Onset Date Resolution Status Admit Date ACS (acute coronary syndrome) inacti ve June 13, 2025 7:16pm Elevated troponin inactive June 132024 7:16pm Exertional angina inactive June 132024 7:16pm Hypercholesterolemia inactive June 13, 2025 7:16pm NSTEMI, initial episode of care inac tive June 13, 2025 7:16pm [facility] Work Phone: 1(722) 426-849607-24-2025 Evaluation note* Diagnosis Onset Date Resolution Status Admit Date ACS (acute coronary syndrome) inacti ve June 13, 2025 7:16pm Elevated troponin inactive June 132024 7:16pm Exertional angina inactive June 132024 7:16pm Hypercholesterolemia inactive June 13, 2025 7:16pm NSTEMI, initial episode of care inac tive June 13, 2025 7:16pm CAD (coronary artery disease) acute July 19, 2025 9:03am Hyperlipidemia acute June 9:03am History of coronary artery bypass graft x 3 June 18, 2025 chronic July 19 9:03am [facility] Work Phone: 1([phone]) 245-455407-24-2025 Discharge summary [facility] Medical Records Department [address] [place] [address] Emergency Department Summary 06/13/25 MR#: [id number] Acct: [id number] Name: RICHIE ARMAS Rep #:[id number] : 1950 75 From: Efren Moss MD [...] Negative for Marfan's Syndrome or Family History [facility] Medical History (Updated 06/13/25 @ 19:48 [...] (From Phenergan) AdvReac Other Verified 06/13/25 17:31 Uebkogd-DXZ-RpY Reductase AdvReac Pain in Verified 06/13/25 17:31 [...] % (Auto) 53.7 Lymph % (Auto) 36.0 Preble % (Auto) 8.9 Eos % (Auto) 0.6 [...] 17:48 IMPRESSION: No focal consolidations. Reading Location: [facility] EKG Initial EKG: Attestation: I personally reviewed and interpreted this EKG as follows: Interpretation: Sinus Rhythm (Rate is 77. FL interval is under 60 ms cures duration 88 ms. QT duration 190 ms. [place] is normal. There is nonspecific changes noted and these are new since December 20, 2023) Management Discussion w/another healthcare provider: Hospitalist (Will speak with the nightphysician Dr. Hui Morel for admission for acute coronary syndrome/non- STEMI. Patient was admitted ICU since she is on nitro and heparin drip.) and Chief Operator Reformer(Spoke with reporting manager. Documentations in the MDM portionof the EMR.) Treatment and Re-Evaluation :: I was informed patient had no improvement with 3 sublingual nitro. Will treat her pressure with IV morphine. Critical Care Time Critical Care Time: Yes Critical care time (excluding procedures): 30-74 minutes (32), Including time spent: (History, physical, documentation, independent to potation of laboratory results and chest x-ray), Discussing w/Patient &/or Family/Multifocal Button Generator, Discussing w/Consultants (Cardiology and hospitalist), Arranging Admission or Transfer and - (Case management for arrangements to help drive home since he hasdementia.) Discharge Plan Dx/Rx/DC Orders Clinical Impression: ACS (acute coronary syndrome), Elevated troponin, Exertional angina, Hypercholesterolemia Disposition Disposition: Acute Care Hospital [facility] Discharge Date/Time: 06/13/25 20:11 What to do if you have Problems For any increased pain, shortness of breath, bleeding, nausea or vomiting, chestpain, or any unexpected problems, contact your Primary Care Provider. Call [facility] ([phone]) or report tothe closest Emergency Room. Call 911 if necessary. 07/24/25 2021 Cosigner Signature (if applicable): CC: Dr. Narinder Crum MD ~ Signed [facility]07-24-2025 History and physical note [facility] Medical Records Department [address] [place] [address] H&P Exam - Hospitalist 06/13/251914 MR#: [id number] Acct: [id number] Name: RICHIE ARMAS Rep #:[id number] : 1950 75 From: Hui Morel MD PCP: Dr. Narinder Crum MD Status:ADM IN Location: ICU ICU03-1 HPI - General General Date of Admission: 06/13/25 Date of Service: 06/13/25 Chief Complaint: Chest pain HPI Narrative The patient is a 75 y/o F w/ PMHx: Raynaud disease, HTN, HLD, Hypothyroidism, Fibromyalgia, Chronicidiopathic constipation who presents to the [facility] ED on 06/13/25 with exertional chest [...] noted prior. ED physician discussed case with Bar Tacker Sewing Machine. Inthe ED patient ministered full-strength aspirin therapy, heparin bolus and drip in addition to sublingual nitroglycerin eventually transition to a nitroglycerindrip as well as morphine 4 mg IV x 1. [facility] Medical History (Updated 06/13/25 @ 19:48 [...] (From Phenergan) AdvReac Other Verified 06/13/25 17:31 [id number] Reductase AdvReac Pain in Verified 06/13/25 17:31 [...] % (Auto) 53.7, Lymph % (Auto) 36.0, Preble % (Auto) 8.9, Eos % (Auto) 0.6, [...] 17:48 IMPRESSION: No focal consolidations. Reading Location: [facility] Assessment & Plan Assessment/Plan (1) NSTEMI, initial episode of care: PLAN: Plan The patient is a 75 y/o F w/ PMHx: Raynaud disease, HTN, HLD, Hypothyroidism, Fibromyalgia, Chronicidiopathic constipation who presents to the [facility] ED on 06/13/25 with exertional chest [...] 16 minutes. Charges/Coding Visit Charges Inpatient E&M: 90338 Init Hosp L3 Procedures Hospitalists Procedures: 32416 Advncd Care Plan 30 Min 06/13/251949 Cosigner Signature (if applicable): CC: Dr. Hui Morel MD; Dr. Narinder Crum MD~ Signed [facility]07-24-2025 Radiology Diagnostic study note [facility] Imaging Services [address] [place], [place] [address] Chest 1 View (Portable) MR#: [id number] Acct: [id number] Name: RICHIE ARMAS Rep #: [id number] : 1950 F 75 From: Pastora Dacosta MD PCP: Dr. Narinder Crum MD Status: REG ER Study:Chest 1 View (Portable) Date of Exam: 06/13/25 Exam# [id number] Ordering Dr: Margaret Moss MD PROCEDURE: CHEST 1 VIEW (PORTABLE) 06/13/2025 REASON FOR EXAM: CHEST PAIN TECHNIQUE: Frontal view of the chest. COMPARISON: 12/20/2023 FINDINGS: No focal consolidation. No pleural effusion or pneumothorax. Cardiac silhouette is within normal limits. Calcified aortic arch. Calcific tendinopathy of the right shoulder. RAD/Chest 1 View (Portable) IMPRESSION: No focal consolidations. Reading Location: [facility] CC: Dr. Narinder Crum MD; Dr. Efren Moss MD ~ Automotive Mechanical Engineer: Signed [facility]04-25-2025 Radiology Diagnostic study note [facility] Imaging Services [address] [place], [place] [id number] [employer] Inc Decub and/or Erect MR#: [id number] Acct: [id number] Name: RICHIE ARMAS Rep #: [id number] : 1950 F 74 From: Tatiana Al MD PCP: Dr. Narinder Crum MD Status: REG CLI Study:Abd Inc Decub and/or Erect Date of Exam : 03/15/25 Exam# [id number] Ordering Dr: KRYSTEN MARIE EXAM: XR Abdomen, [...] the colon consistent with constipation. Reading Location: [facility] CC: KRYSTEN MARIE; Dr. Narinder Crum MD ~ Automotive Mechanical Engineer: Signed [facility]03-07-2025 Evaluation note* Diagnosis Onset Date Resolution Status Admit Date Cervical radiculopathy acute [facility] 2024 1:04pm Degenerative disc disease, cervical acute January 25, 2025 1:04pm [facility] Work Phone: [phone]) 244-346908-10-2023 Discharge summary Author Greg Chahal [facility] June 30, 2023 1:07pm Note Date/Time June 30, 2023 1: 07pm [facility] Physical Therapy [facility] [facility] [place] [address] / REHABILITATION SERVICES DISCHARGE SUMMARY MR#: [id number] Acct: [id number] Name: RICHIE ARMAS Rep #: [id number] : 1950 73 From: Greg Chahal PT, ATC Referring DrMilana: FRANDY Sexton Status: REG RCR Insurance: MEDICARE PART A B [facility] Discharge Summary D/C summary: It has [...] please feel free to call me at [phone]. Thank you for the referral of thispatient. Sincerely, Greg Chahal, PT, ATC Balance/Gait/Functional tests Balance/Special Test Scores Lower Extremity Functional Score: 61 <Electronically signed by Greg Chahal PT, ATC> 06/30/23 1307 CC: FRANDY Sexton; Dr. Narinder Crum MD ~ [facility] Signed [facility] Work Phone: Evaluation + Plan note No data available for this section [facility] Evaluation noteNo assessment information available [facility] Work Phone: Evaluation note* Diagnosis Onset Date Resolution Status Oral thrush acute [facility] Work Phone: Evaluation note* Diagnosis Onset Date Resolution Status Admit Date ACS (acute coronary syndrome) acute June 13, 2025 7:16pm Elevated troponin acute June 132024 7:16pm Exertional angina acute June 132024 7:16pm Hypercholesterolemia acute June 13, 2025 7:16pm NSTEMI, initial episode of care acut e June 13, 2025 7:16pm [facility] Work Phone: Evaluation note* Diagnosis NSTEMI (non-ST elevation myocardial infarction) (HCC)- Primary Acute myocardial infarction, subendocardial infarction, episode of care unspecified NSTEMI (non-ST elevation myocardial infarction) ([facility]) Acute myocardial infarction, subendocardial infarction, episode of care unspecified Other disorders of arteries, arterioles and capillaries in diseases classified elsewhere (HCC) Cardiac pain Coronary artery disease due to [...] edema Edema Acute stroke due to ischemia ([facility]) Stroke, recent, without late effect [facility] S/P CABG (coronary artery bypass graft)- Primary Postsurgical aortocoronary bypass status NSTEMI (non-ST elevation myocardial infarction) ([facility]) Acute myocardial infarction, subendocardial infarction, episode of care unspecified [facility] Diagnosis S/P CABG (coronary artery bypass graft)- Primary Postsurgical aortocoronary bypass status [facility] Author Hui Morel [facility] Note Date/Time June 13, 2025 7:50 pm [facility] Medical Records Department [address] [place] [address] H&P Exam - Hospitalist 06/13/251914 MR#: [id number] Acct: [id number] Name: RICHIE ARMAS Rep #:[id number] : 1950 75 From: Hui Morel MD PCP: Dr. Narinder Crum MD Status:ADM IN Location: ICU ICU03-1 HPI - General General Date of Admission: 06/13/25 Date of Service: 06/13/25 Chief Complaint: Chest pain HPI Narrative The patient is a 75 y/o F w/ PMHx: Raynaud disease, HTN, HLD, Hypothyroidism, Fibromyalgia, Chronic idiopathic constipation who presents to the [facility] ED on 06/13/25 with exertional chest [...] noted prior. ED physician discussed case with Bar Tacker Sewing Machine. Inthe ED patient ministered full-strength aspirin therapy, heparin bolus and drip in addition to sublingual nitroglycerin eventually transition to a nitroglycerindrip as well as morphine 4 mg IV x 1. [facility] Medical History (Updated 06/13/25 @ 19:48 [...] (From Phenergan) AdvReac Other Verified 06/13/25 17:31 Zuazzvx-QGG-DnZ Reductase AdvReac Pain in Verified 06/13/25 17:31 [...] % (Auto) 53.7, Lymph % (Auto) 36.0, Preble % (Auto) 8.9, Eos % (Auto) 0.6, [...] 17:48 IMPRESSION: No focal consolidations. Reading Location: [facility] Assessment & Plan Assessment/Plan (1) NSTEMI, initial episode of care: PLAN: Plan The patient is a 75 y/o F w/ PMHx: Raynaud disease, HTN, HLD, Hypothyroidism, Fibromyalgia, Chronic idiopathic constipation who presents to the [facility] ED on 06/13/25 with exertional chest [...] 16 minutes. Charges/Coding Visit Charges Inpatient E&M: 56447 Init Hosp L3 Procedures Hospitalists Procedures: 35315 Advncd Care Plan 30 Min 06/13/251949 <Electronically signed by Hui Morel MD> Cosigner Signature (if applicable): CC: Dr. Hui Morel MD; Dr. Narinder Crum MD~ Signed [facility] Work Phone: [facility] Work Phone: Hospital Discharge instructions Additional Instructions Please ensure that you drink plenty of fluids. Return for any worsening symptoms.[facility] Work Phone: Hospital Discharge instructionsAdditional Instructions Your labs, urine, chest x-ray all appear normal. I think you are a week from your recent bypass surgery and it will take a while to recover. Follow-up with your surgeons office and do cardiac rehab like they recommend. Rest, drink plenty of fluids and eat regularly. [facility] Work Phone: Hospital Discharge instructions No data available for this section [facility] Discharge instructionsAdditional Instructions Follow-up with your reporting manager within 1 week as needed. Follow-up with your surgeon as scheduled. Return to the emergency department with increased chest pain, new or worsening symptoms.[facility] Work Phone: Hospital Discharge instructionsAmbulatory Orders* Phase II, Outpatient Cardiac Rehab Location: None Selected [facility] Work Phone: Reason for referral (narrative)No reason for referral information availableWWexner Medical Center Work Phone: Reason for visit Narrative* Auth/Cert (Routine) Specialty Diagnoses / Procedures Referred By Faith carlin Referred To Contact Diagnoses Non-ST elevation (NSTEMI) myocardial infarction (HCC) NSTEMI (non-ST elevation myocardial infarction) (HCC) NSTEMI Procedures . Selvin Lynch MD [address] [place] [address] Phone: tel: fax: [facility] Cardiac Thoracic Vascular Intensive Care Unit CTV ICU T[address] [place] [address] Phone: tel: Referral ID Status Reason Start Date Expiration Date Visits Re quested Visits Authorized [facility] Chief Complaint and Reason for Visit [...] abnormal labs June 28, 2025 3:4 4pm Chief Complaint Admit Date NSTEMI June 13, 2025 7:16 pm NSTEMI June 14, 2025 7:41 am NSTEMI June 14, 2025 3:35 pm abnormal labs June 28, 2025 3:4 4pm CP July 14, 2025 6: 11pm Chief Complaint Admit Date NSTEMI June 13, 2025 7:16 pm NSTEMI June 14, 2025 7:41 am NSTEMI June 14, 2025 3:35 pm abnormal labs June 28, 2025 3:4 4pm CP July 14, 2025 6: 11pm S/P [facility] 06/21July 19, 2025 9: 03am Reason for Visit Admit Date ACS (acute coronary syndrome) June 13, 2025 7:16pm Elevated troponin June 13, 2025 7:16 pm Exertional angina June 13, 2025 7:16 pm Hypercholesterolemia June 13, 2025 7:1 6pm NSTEMI, initial episode of care May 7:16pm CAD (coronary artery disease) June 9:03am Hyperlipidemia July 19, 2025 9: 03am History of coronary artery bypass graft x 3 July 19, 2025 9:03am Chief Complaint Admit Date NSTEMI June 13, 2025 7:16 pm NSTEMI June 14, 2025 7:41 am NSTEMI June 14, 2025 3:35 pm abnormal labs June 28, 2025 3:4 4pm CP July 14, 2025 6: 11pm S/P [facility] 06/21July 19, 2025 9: 03am CABG July 29, 2025 2:01pm CABG July 31, 2025 2:34pm Advance Directives Date Activated Date Inactivated Comments 06/24/2025 2:03 PM 06/27/2025 4:52 PM Date Activated Date Inactivated Comments 06/14/2025 4:52 PM 06/22/2025 2:47 PM Healthcare Agents on File Name Relationship Healthcare Agent Relationshi p Communication Salvador Acevedo Son First Alternate Health Care Agent Tomasz Armas Spouse Second Alternate Health Care Agent Advance Directive Response Recorded Date/ Time Living Will No December 09 2:26pm Power of Tip Stretcher No December 09, 2021 2:26pm Advance Directive Response Recorded Date/ Time Living Will No September 05 7:18am Power of Tip Stretcher No September 05, 2022 7:18am Advance Directive Response Recorded Date/ Time Name of Medical Power of Tip Stretcher TOMASZ ARMAS December 20, 2023 2:43pm Living Will Yes December 20 2:43pm Power of Tip Stretcher Yes December 20, 2023 2:43pm Advance Directive Response Recorded Date/ Time Living Will Yes December 20 3:43pm Power of Tip Stretcher Yes December 20, 2023 3:43pm Name of Medical Power of Tip Stretcher TOMASZ ARMAS December 20, 2023 3:43pm Advance Directive Response Recorded Date/ Time Living Will Yes December 20 3:43pm Do you have a Healthcare Power of Tip Stretcher? Yes December 20, 2023 3:43pm Advance Directive Response Recorded Date/ Time Do you have a Healthcare Power of Tip Stretcher? No June 13, 2025 5:43pm Advance Directive Response Recorded Date/ Time Do you have a Healthcare Power of Tip Stretcher? No June 13, 2025 8:45pm Date Activated Date Inactivated Comments 06/14/2025 4:52 PM Healthcare Agents on File Name Relationship Healthcare Agent Relationshi p Communication Salvador Curtis Son First Alternate Health Care Agent Tomasz Armas Spouse Second Alternate Health Care Agent Date Activated Date Inactivated Comments 06/14/2025 4:52 PM 06/22/2025 2:47 PM Healthcare Agents on File Name Relationship Healthcare Agent Relationshi p Communication Salvadro Acevedo Son First Alternate Health Care Agent [...] Do you have a Healthcare Power of Tip Stretcher? No June 28, 2025 4:11pm Do you have a Healthcare Power of Tip Stretcher? No June 13, 2025 8:45pm Healthcare Agents on File Name Relationship Healthcare Agent Relationshi p Communication Salvador Jacobson First Alternate Health Care Agent Tomasz Armas Spouse Second Alternate Health Care Agent Advance Directive Response Recorded Date/ Time Do you have a Healthcare Power of Tip Stretcher? No June 28, 2025 4:11pm Do you have a Healthcare Power of Tip Stretcher? Yes July 14, 2025 7:19pm Do you have a Healthcare Power of Tip Stretcher? No June 13, 2025 8:45pm Healthcare Agents on File Name Relationship Healthcare Agent Relationshi p Communication Salvador Jacobson First Alternate Health Care Agent Tomasz Armas Spouse Second Alternate Health Care Agent Healthcare Agents on File Name Relationship Healthcare Agent Relationshi p Communication Salvador Curtis Son First Alternate Health Care Agent Tomasz Armas Spouse Second Alternate Health Care Agent Advance Directive Response Recorded Date/ Time Do you have a Healthcare Power of Tip Stretcher? No June 28, 2025 4:11pm Do you have a Healthcare Power of Tip Stretcher? Yes July 14, 2025 7:19pm Do you have a Healthcare Power of Tip Stretcher? No June 13, 2025 8:45pm Advance Directives on File No Septesther mbsalima 2024 2:19pm Living Will Yes July 29 2:19pm Do you have a Healthcare Power of Tip Stretcher? Yes July 29, 2025 2:19pm Summary Purpose Family History Relationship Condition Age [...] alternate section No data available for this sectionGoals may be documented in an alternate sectionGoals may be documented in an alternate sectionGoals may be documented in an alternate sectionGoals may be documented in an alternate section INFORMATION SOURCE (unrecogn ized section and content) DATE CREATED AUTHOR 04/26/2022 [facility] DATE CREATED AUTHOR AUTHOR'S ORGANIZ ATION 07/07/2025 [facility] DATE CREATED AUTHOR AUTHOR'S ORGANIZ ATION 08/01/2025 [facility] DATE CREATED AUTHOR AUTHOR'S ORGANIZ ATION 08/02/2025 [facility] DATE CREATED AUTHOR AUTHOR'S ORGANIZ ATION 08/02/2025 [facility] Care Teams (unrecognized sec tion and [...] MD Primary Care Provider Active Laly Diaz BRAIN WAVE TECHNICIAN, BRAIN WAVE TECHNICIAN-C Attending Provider, Referring Pro vider Active Team Status: Inactive Member Role Status Dates Dr. Narinder Crum MD Primary Care Provider Active Dr. Narinder Fuentes DO Emergency Provider Active Team Status: Inactive Member Role Status Dates Dr. Narinder Crum MD Primary Care Provider Active Dr. Narinder Fuentes DO Attending Provider, Emergency P rovider Active Team Status: Inactive Member Role Status Dates Dr. Narinder Crum MD Primary Care Provider Active Start: October 30, 2024 End: October 30, 2024 DEMARCUS LANGFORD Attending Provider Active Start: 2023 End: October 30, 2024 DEMARCUS LANGFORD Referring Provider Active Start: ec2023 End: October 30, 2024 Team Status: [...] Start: June 14, 2025 Dr. Thelma Hamm , Other Provider Active S tart: June 14, 2025 Dr. Edil Hong MD Attending Provider Active S tart: June 14, 2025 Land Surveying Survey Worker Relationship Specialty Start Date End Date Narinder Crum [address] [place] [phone] PCP - General Family Medicine 06/14/25 [address] [facility] [address] [place] [address] Hospitalist 06/14/25 Land Surveying Survey Worker Relationship Specialty Start Date End Date Narinder Crum [address] [facility] [address] [place] [phone] PCP - General Family Medicine 06/14/25 [address] [facility] [address] [place] [address] Hospitalist 06/14/25 [address] [facility] [address] [place] [address] Hospitalist 06/14/25 06/14/25 Janelle Carroll, producerEndless Track Vehicle Supervisor Manager 06/19/25 Land Surveying Survey Worker Relationship Specialty Start Date End Date Narinder Crum [address] [facility] [address] [place] [phone] PCP - General Family Medicine 06/14/25 [address] [facility] [address] [place] [address] Hospitalist 06/14/25 Janelle Carroll, producerEndless Track Vehicle Supervisor Manager 06/19/25 Land Surveying Survey Worker Relationship Specialty Start Date End Date Salima Crumic Constance [address] [facility] [address] [place] [phone] PCP - General Family Medicine 06/14/25 Hui Morel [address] [facility] [address] [place] [address] Hospitalist 06/14/25 Janelle Carroll, producerEndless Track Vehicle Supervisor Manager 06/19/25 Land Surveying Survey Worker Relationship Specialty Start Date End Date Narinder Crum [address] [facility] [address] [place] [phone] PCP - General Family Medicine 06/14/25 Hui Morel [address] [facility] [address] [place] [address] Hospitalist 06/14/25 Janelle Carroll, producerEndless Track Vehicle Supervisor Manager 06/19/25 Team Status: Active Member Role/Relationship [...] Start: June 14, 2025 Dr. Thelma Hamm , Attending Provider Active Start: June 14, 2025 Dr. Thelma Hamm , Other Provider Active S tart: June 14, 2025 Team Status: Inactive Member Role/Relationship Status Dates Dr. Narinder Crum MD Primary Care Provider Active Start: June 28, 2025 End: June 28, 2025 Dr. Yefri Ritter DO Emergency Provider Activ e Start: June 28, 2025 End: June 28, 2025 Land Surveying Survey Worker Relationship Specialty Start Date End Date Narinder Crum [address] [facility] [address] [place] [phone] PCP - General Family Medicine 06/14/25 Hui Morel [address] [facility] [address] [place] [address] Hospitalist 06/14/25 Janelle Carroll, RN Registered Nurse Endless Track Vehicle Supervisor Manager 06/19/25 Land Surveying Survey Worker Relationship Specialty Start Date End Date Narinder Crum [address] [facility] [address] [place] [phone] PCP - General Family Medicine 06/14/25 Hui Morel [facility] [address] [place] [address] Hospitalist 06/14/25 Janelle Carroll, RN Registered Nurse Endless Track Vehicle Supervisor Manager 06/19/25 Cassandra Brito I., [facility] Basket Hand Braider Licensed Clinical Basket Hand Braider 07/04/25 Team Status: Inactive Member Role/Relationship Status Dates [...] Start: June 14, 2025 Dr. Thelma Hamm , Other Provider Active S tart: June 14, 2025 Dr. Edil Hong MD Attending Provider Active S tart: June 14, 2025 Team Status: Active Member [...] June 28, 2025 Dr. Yefri Ritter DO Attending Provider Activ e Start: June 28, 2025 End: June 28, 2025 Dr. Yefri Ritter DO Emergency Provider Activ e Start: June 28, 2025 End: June 28, 2025 Team Status: Inactive Member Role/Relationship Status Dates Dr. Narinder Crum MD Primary Care Provider Active Start: July 14, 2025 End: July 14, 2025 Tremaine You MD Emergency Provider Active Star t: July 14, 2025 End: July 14, 2025 Land Surveying Survey Worker Relationship Specialty Start Date End Date Narinder Crum [address] [place] [phone] PCP - General Family Medicine 06/14/25 Hui Morel [address] [facility] [address] [place] [address] Hospitalist 06/14/25 Janelle Carroll, RN Registered Nurse Endless Track Vehicle Supervisor Manager 06/19/25 Cassandra Brito I., [employer] Basket Hand Braider Licensed Clinical Basket Hand Braider 07/04/25 Land Surveying Survey Worker Relationship Specialty Start Date End Date Narinder Crum [address] [place] [phone] PCP - General Family Medicine 06/14/25 Hui Morel [address] [facility] [address] [place] [address] Hospitalist 06/14/25 Janelle Carroll, JOY Registered Nurse Endless Track Vehicle Supervisor Manager 06/19/25 Cassandra Brito I., [employer] Basket Hand Braider Licensed Clinical Basket Hand Braider 07/04/25 Team Status: Inactive Member Role/Relationship Status Dates Dr. Narinder Crum MD Primary Care Provider Active Start: July 14, 2025 End: July 14, 2025 Tremaine You MD Attending Provider Active Star t: July 14, 2025 End: July 14, 2025 Tremaine You MD Emergency Provider Active Star t: July 14, 2025 End: July 14, 2025 Team Status: Inactive Member Role/Relationship Status Dates Dr. Narinder Crum MD Primary Care Provider Active Start: July 19, 2025 End: July 19, 2025 Dr. Narinder Crum MD Referring Provider Active St art: July 19, 2025 End: July 19, 2025 BRAYDEN Huffman Attending Provider Active St art: July 19, 2025 End: July 19, 2025 Team Status: Inactive Member Role/Relationship Status Dates Dr. Narinder Crum MD Primary Care Provider Active Start: July 29, 2025 End: July 29, 2025 Dr. Edil Hong MD Attending Provider Active S tart: July 29, 2025 End: July 29, 2025 Dr. Edil Hong MD Referring Provider Active S tart: July 29, 2025 End: July 29, 2025 Team Status: Active Member Role/Relationship Status Dates Dr. Narinder Crum MD Primary Care Provider Active Start: July 31, 2025 Dr. Edil Hong MD Attending Provider Active S tart: July 31, 2025 Dr. Edil Hong MD Referring Provider Active S tart: July 31, 2025 Scheduled Active and Recently Administ ered Medications (unrecognized section and content) Medication Order 06/20/2025 06/21/2025 06/22/2025 acetaminophen (Tylenol) tablet 1,000 mg 1,000 mg, Oral, Every 8 hours, First dose on Tue06/18/25 at 1615, Recovery & On Unit 0006 (Given - Provider: Susan Leong RN)0827 (Given - Provider: Sweetie Rust RN)1612 (Given - Provider: Sweetie Rust RN) 0031 (Given - Provider: Marquise Koroma, JOY)0830 (Given - Provider: Moon Granda, JOY)1637 (Given - Provider: Andres Lim RN) 0044 (Given - Provider: Marquise Koroma, JOY)0824 (Given - Provider: Laly Padilla, JOY) aspirin chewable tablet 81 mg 81 mg, Oral, Daily, First dose on Tue06/19/25 at 0915 0828 (Given - Provider: Sweetie Rust RN) 0830 (Given - Provider: Moon Granda RN) 0824 (Given - Provider: Laly Padilla, RN) bisacodyl (Dulcolax) suppository 10 mg 10 [...] Prophylaxis 0006 (New Bag - Provider: Susan Leong, JOY)0040 (Stopped - Provider: Susan Leong RN)0525 (New [...] RN)2100 (Given - Provider: Marquise Koroma, JOY) 0830 (Given - Provider: Moon Granda, JOY) clopidogrel (Plavix) tablet 75 mg 75 mg, Oral, Daily, First dose on Tue06/22/25 at 0900 0823 (Given - Provider: Laly Padilla, JOY) enoxaparin (Lovenox) syringe 40 mg 40 mg, SubCUTAneous, Every 24 hours, First dose on Tue06/20/25 at 0900, Indication of Use: Prophylaxis-DVT/PE, Indications: Prophylaxis of Venous Thromboembolism 08 (Given - Provider: Sweetie Rust RN) 0830 (Given - Provider: Moon Granda, JOY) 0824 (Given - Provider: Laly Padilla, JOY) ezetimibe (Zetia) tablet 10 mg 10 mg, Oral, Nightly, First dose on 8/2/25 at 2100 furosemide (Lasix) injection 40 mg [...] (Medication Removed - Provider: Marquise Koroma RN) 08 (Medication Applied - Provider: Laly D. Filler, RN)1220 (Due: Medication Removed - Provider: Automatic [...] RN) 0818 (Not Given - Provider: Moon Granda, JOY - Reason: Patient/family refused) 0824 (Not Given - Provider: Laly Padilla, JOY - Reason: Patient/family refused) rosuvastatin (Crestor) tablet 40 mg 40 mg, Oral, Daily, First dose on Tue06/19/25 at 0915 0828 (Given - Provider: Sweetie Rust RN) 0830 (Given - Provider: Moon Granda RN) 08 (Given - Provider: Laly Padilla, JOY) senna-docusate [...] RN)2058 (Given - Provider: Marquise Koroma RN) 0830 (Given - Provider: Moon Granda, JOY)1211 (Given - Provider: Moon Granda, JOY)1637 (Given - Provider: Andres Lim RN)1999 (Given - Provider: Marquise Koroma RN) 0825 (Given - Provider: Laly Padilla, RN)1300 (Canceled Entry - Provider: Automatic Discharge [...] Koroma RN)0841 (Not Given - Provider: Laly Padilla, JOY - Reason: Other) PRN Medication Order 06/20/2025 [...] Leong RN)0555 (See Alternative - Provider: Susan Leong, JOY) HYDROmorphone (Dilaudid) injection 0.5 mg (CANCELED)(Linked Group [...] Susan Leong RN)0555 (Given - Provider: Susan Leong, JOY) ipratropium-albuterol (Duo-Neb) 0.5-2.5 mg/3 mL nebulizer solution [...] sedation for opioid reversal - MUST notify emissions inspector provider immediately after first dose, may give [...] RN) 0844 (Given - Provider: Maria Guadalupe Mratin RN) clopidogrel (Plavix) tablet 75 mg 75 [...] RN) 1122 (Given - Provider: Maria Guadalupe Martin RN) rosuvastatin (Crestor) tablet 40 mg 40 mg, [...] hours PRN, agitation, second line for agitation, [place] PRN for ONLY if danger to self/others/treatment, [...] sedation for opioid reversal - MUST notify emissions inspector provider immediately after first dose, may give [...] daily PRN, agitation, first line for agitation, [place] PRN for ONLY if danger to self/others/treatment, [...] status type Procedures . Marry Berger MD [address] [place] [address] Phone: tel: fax: [facility] [address] [place] [phone] Phone: tel: fax: Referral ID Status Reason Start Date Expiration Date Visits Re quested Visits Authorized Reason Onset Date Comments BP Outreach 07/02/2025 Reason Onset Date Comments Other 07/02/2025 Pt. Admit [facility] Reason Comments Post-op Reason Onset Date Comments BPCI Outreach 07/17/2025 Reason Comments Follow-up Reason Onset Date Comments Telephone Visit 07/26/2025 Transitional Care Management Outreach 07/26/2025 FOR RECORDS PERTAINING TO PATIENTS WHO ARE [...] BE BASED ON THE PRIMARY CLINICAL RECORDS. [employer] [facility]. provides no warranty or guarantee of the accuracy or completeness of information in this document.
[2025-08-08] MEDS: 0.9% Normal Saline (1000mL) 1,000 ML 1000 ML IV (20:49)
[2025-08-08 20:50] VITALS: BP 148/64; PULSE 84; RESP 21; TEMP 37.4; O2SAT 93
[2025-08-08 20:57] LABS: AST(SGOT) 31 U/L (<=31); Alanine Aminotransfer ALT/SGPT 7 U/L (<=34); Albumin, Serum 3.8 g/dL (3.4-4.8); Alkaline Phosphatase 76 U/L (35-104); Anion Gap 14 (5-15); BUN 23 mg/dL (4-19); BUN/Creat Ratio 36.1 RATIO (10-20); Calcium,Total 9.2 mg/dL (7.6-11.0); Carbon Dioxide 22.7 mmol/L (21.0-32.0); Chloride 98 mmol/L (98-108); Estimated Creatinine Clearance 55.68 ml/min (50-250); Globulin 3.4 g/dL (2.2-4.2); Glucose 139 mg/dL (70-99); Potassium 4.6 mmol/L (3.3-5.1)
[2025-08-08 21:00] VITALS: BP 145/65; PULSE 81; RESP 23; O2SAT 94
--- NOTE | 2025-08-08 21:56 | EX.ED.DYSGE1 ---
HPI History of Present Illness Chief Complaint: Fever Detail of Chief Complaint: Tmax 102.6 yesterday and Tmax today at 101.7 Informant: patient and spouse/S.O. Onset/Context/Timing Onset: Today and Yesterday Context: Sudden Onset Timing: Intermittent Quality: Fever without chills and Location: Respiratory Current Severity: Mild Maximum Severity: Mild Worsened by: Mild dyspnea with activity and cough Relieved by: Not applicable, fever resolved with antipyretic Associated Symptoms Associated Symptoms: No other symptoms Narrative Narrative: Patient is a pleasant 75-year-old woman. She presents with fever Tmax 102.6 yesterday and Tmax of 101.7 today. She denies headache, visual, ocular auditory symptoms. Denies ear pain or discharge. She denies rhinorrhea, congestion postnasal drainage. She denies sore throat. She does have a cough. The cough is essentially nonproductive. She reports mild dyspnea. She denies chest discomfort of any type i.e. pressure, tightness heaviness or pleuritic. Patient denies abdominal pain, nausea, vomiting or diarrhea. Patient denies dysuria, frequency, urgency or hematuria. Patient denies rash. Prior similar symptoms: Yes Recent Illness/Hospitalization: No PFSH PFS Medical History (Updated 08/08/25 @ 22:[address] Efren Moss MD) CAD (coronary artery disease) NSTEMI, initial episode of care Hypercholesterolemia Exertional angina Elevated troponin ACS (acute coronary syndrome) Chronic idiopathic constipation CKD (chronic kidney disease), stage II GERD (gastroesophageal reflux disease) IBS (irritable bowel syndrome) HTN (hypertension) Raynaud disease Fibromyalgia Cataract High cholesterol Hypothyroidism Home Medications ?Medication ?Instructions ?Recorded ?Last Taken ?Type alendronate 70 mg tablet 70 mg PO .weekly 01/25/25 06/12/25 History levothyroxine 75 mcg tablet 75 mcg PO DAILY 01/25/25 06/13/25 History nifedipine 30 mg tablet,extended 30 mg PO DAILY 01/25/25 06/13/25 History release venlafaxine 37.5 mg 37.5 mg PO DAILY depression 06/13/25 Unknown History capsule,extended release 24 hr acetaminophen 500 mg tablet 1,000 mg PO Q8H PRN 07/19/25 Unknown History amitriptyline 50 mg tablet 100 mg PO QHS 07/19/25 Unknown History aspirin 81 mg chewable tablet 1 tab PO QDAY 07/19/25 Unknown History azelastine 137 mcg (0.1 %) nasal 1 spray intranasal BID 07/19/25 Unknown History spray cholecalciferol (vitamin D3) 25 25 mcg PO QDAY 07/19/25 Unknown History mcg (1,000 unit) tablet clopidogrel 75 mg tablet 75 mg PO QDAY 07/19/25 Unknown History denosumab 60 mg/mL subcutaneous 60 mg subcut [id number] 07/19/25 Unknown History syringe (Prolia) duloxetine 20 mg capsule,delayed 20 mg PO QDAY 07/19/25 Unknown History release ezetimibe 10 mg tablet 10 mg PO QHS 07/19/25 Unknown History ipratropium bromide 21 mcg (0.03 2 spray intranasal Q6H PRN 07/19/25 Unknown History %) nasal spray lidocaine 4 % topical patch 1 patch topical QDAY PRN 07/19/25 Unknown History (Aspercreme (lidocaine)) lorazepam 1 mg tablet 0.5 mg PO QHS 07/19/25 Unknown History metoprolol succinate 50 mg 50 mg PO QDAY 07/19/25 Unknown History tablet,extended release 24 hr ondansetron 4 mg disintegrating 4 mg PO Q8H PRN 07/19/25 Unknown History tablet pantoprazole 20 mg tablet,delayed 20 mg PO BID 07/19/25 Unknown History release rosuvastatin 40 mg tablet 40 mg PO QDAY 07/19/25 Unknown History tizanidine 4 mg tablet 4 mg PO Q8H PRN 07/19/25 Unknown History tramadol 50 mg tablet 100 mg PO QHS 08/05/25 Unknown History levofloxacin 500 mg tablet 500 mg PO DAILY #6 tabs 08/08/25 Unknown Rx Allergy/AdvReac Type Severity Reaction Status Date / Time cyclobenzaprine HCl (From AdvReac Other Verified 08/08/25 19:49 Flexeril) promethazine (From Phenergan) AdvReac Other Verified 08/08/25 19:49 Family History Father Heart disease CAD (coronary artery disease) Hypertension Myocardial infarction HLD (hyperlipidemia) Mother Hypertension Surgical History 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) Previous back surgery H/O wrist surgery History of ankle surgery H/O shoulder surgery Social History household members: spouse Smoking Status: Never smoker alcohol intake: current alcohol intake frequency: holidays/special occasions only substance use type: does not use ROS ROS ED Constitutional Constitutional ED: Reports fever(s); Denies chills, subjective or sweats Eyes Eyes: Denies blurry vision, change in vision or diplopia ENT ENT ED: Denies ear pain, rhinorrhea or sore throat Cardiovascular Cardiovascular: Denies chest pain, orthopnea, palpitations, paroxysmal nocturnal dyspnea or racing heartbeat Respiratory/Chest Respiratory/Chest: Reports cough and dyspnea; Denies dyspnea on exertion, orthopnea, paroxysmal nocturnal dyspnea or sputum Gastrointestinal Gastrointestinal: Denies abdominal pain, nausea or vomiting Genitourinary Genitourinary ED: Denies dysuria, hematuria or urinary frequency Musculoskeletal Musculoskeletal: Denies arthralgias or myalgias Integumentary Denies rash Neurologic Neurologic: Denies headache(s), paresthesias or weakness Psychiatric Psychiatric: Denies anxiety or depression Endocrine Endocrinology: Denies cold intolerance or heat intolerance Hematologic/Lymphatic Hematologic/Lymphatic: Reports systems reviewed and no addt'l complaints, except as documented EXAM Physical Exam Const Vital Signs: 08/08/25 19:46 08/08/25 19:49 08/08/25 20:35 Temperature 99.0 F 99 F Temperature Source Oral Oral Pulse Rate 92 92 Respiratory Rate 15 16 Respiratory Effort Normal Respiratory Pattern Normal Blood Pressure 154/67 H 154/67 H Blood Pressure Mean 96 96 Pulse Ox 100 100 Oxygen Delivery Method Room Air Room Air 08/08/25 20:50 08/08/25 21:00 Temperature 99.3 F H Temperature Source Oral Pulse Rate 84 81 Respiratory Rate 21 H 23 H Respiratory Effort Respiratory Pattern Blood Pressure 148/64 H 145/65 H Blood Pressure Mean 92 91 Pulse Ox 93 94 Oxygen Delivery Method Room Air Room Air Positive well nourished and well developed General Appearance ED: well developed; Negative for cyanotic, diaphoretic or pallor HEENT Reports TM's clear HEENT Narrative: HEENT head is atraumatic, cephalic. Ears normal. Nares patent. Posterior pharynx is normal. Tympanic Membrane ED: Yes TM's clear Eyes PERRL and EOMs intact bilaterally General Eye ED: Negative for pale conjunctiva or scleral icterus Neck no lymphadenopathy and supple Chest Wall inspection of chest normal and palpation of chest normal Resp normal respiratory effort Resp Narrative: Question of some crackles right base. There is no egophony. Auscultation: rales; Negative for rhonchi or wheezes Cardio regular rate, regular rhythm, S1 normal heart sound, S2 normal heart sound and no murmurs GI normal to inspection, nondistended, normoactive bowel sounds, non-tender, non-distended and no masses; Negative for hepatosplenomegaly Back/Spine no CVA tenderness Extremity normal to inspection General Extremety ED: Negative for edema or tenderness General Extremity: Negative for edema Neuro oriented x3, CN's II-XII intact bilaterally and no sensory deficits noted Sensorium / Orientation: alert Psych mental status grossly normal Skin no rashes or lesions noted, no wounds and skin turgor normal General Skin Exam: Negative for jaundice or pallor MDM MDM MDM Narrative Medical decision making narrative: Differential diagnosis upper respiratory viral infection, pneumonia, fever unknown etiology, she does not have symptoms that are concerning for GI or etiology. Workup included CBC, competence metabolic panel, lactate and chest x-ray. Blood work was obtained to assess for endorgan dysfunction in white count. Lab Data Attestation: I reviewed the patient's lab results. Lab results narrative: CBC reveals mild anemia with normal indices. Comprehensive metabolic panel is remarkable for glucose of 139 with a normal CO2 anion gap. Patient's BUN to creatinine ratio is 36:1. Clinically she is dehydrated. She did receive 1 L of normal saline. Liver enzymes are normal. Lactate is normal. Labs: Laboratory Results - last 24 hr 08/08/25 20:16 WBC 10.3 RBC 3.61 L Hgb 10.5 L Hct 32.6 L MCV 90.3 MCH 29.1 MCHC 32.2 RDW Std Deviation 50.0 H RDW Coeff of Sushant 15.1 H Plt Count 418 MPV 10.0 Immature Gran % (Auto) 0.300 Neut % (Auto) 75.9 H Lymph % (Auto) 14.7 L [place] % (Auto) 8.7 Eos % (Auto) 0.1 Baso % (Auto) 0.3 Absolute Neuts (auto) 7.8 H Absolute Lymphs (auto) 1.51 Nucleated RBC % 0 Sodium 134 Potassium 4.6 Chloride 98 Carbon Dioxide 22.7 Anion Gap 14 BUN 23 H Creatinine 0.64 L Estim Creat Clear Calc 55.68 Est GFR (MDRD) Non-Af 93 BUN/Creatinine Ratio 36.1 H Glucose 139 H Lactic Acid 1.8 Calcium 9.2 Total Bilirubin 0.22 AST 31 ALT 7 Alkaline Phosphatase 76 Total Protein 7.1 Albumin 3.8 Globulin 3.4 Albumin/Globulin Ratio 1.1 Radiography Chest X-Ray - ED: 2 View and Read by ED Physician (Independent reviewed interpreted by me. There is increased interstitial markings right lung field and there is interstitial markings noted in the retrocardiac space which should be clear. There is a small pleural effusion noted on the left.) Diagnostic Testing: Clinical Impression(s) from Imaging Studies Chest X-Ray 08/08/25 20:31 IMPRESSION: Trace left pleural effusion, superimposed consolidation not excluded. Bibasilar platelike atelectasis. Reading Location: [facility] Treatment and Re-Evaluation :: In light of a normal white count, respiratory rate, heart rate, pulse ox and white count patient is a candidate for outpatient therapy. Her port score is 64. Discharge Plan Triage Chief Complaint: Fever ED Provider: Efren Moss Dx/Rx/DC Orders Clinical Impression: Community acquired pneumonia, Fever in adult, CAD (coronary artery disease), Hyperlipidemia Instructions: ED Pneumonia (Adult) Prescriptions: New levofloxacin 500 mg tablet 500 mg PO DAILY Qty: 6 0RF No Action levothyroxine 75 mcg tablet 75 mcg PO DAILY Patient Comments: [NO ORIGINAL SIG] nifedipine 30 mg tablet extended release 30 mg PO DAILY alendronate 70 mg tablet 70 mg PO .weekly Patient Comments: [NO ORIGINAL SIG] Rx Instructions: Take on Wednesdays pantoprazole 20 mg tablet,delayed release (DR/EC) 20 mg PO BID tizanidine 4 mg tablet 4 mg PO Q8H PRN lorazepam 1 mg tablet 0.5 mg PO QHS Patient Comments: [NO ORIGINAL SIG] lidocaine [Aspercreme (lidocaine)] 4 % adhesive patch,medicated 1 patch topical QDAY PRN rosuvastatin 40 mg tablet 40 mg PO QDAY ezetimibe 10 mg tablet 10 mg PO QHS metoprolol succinate 50 mg tablet extended release 24 hr 50 mg PO QDAY aspirin 81 mg tablet,chewable 1 tab PO QDAY duloxetine 20 mg capsule,delayed release(DR/EC) 20 mg PO QDAY clopidogrel 75 mg tablet 75 mg PO QDAY acetaminophen 500 mg tablet 1,000 mg PO Q8H PRN ipratropium bromide 21 mcg (0.03 %) spray,non-aerosol 2 spray intranasal Q6H PRN Patient Comments: [NO ORIGINAL SIG] azelastine 137 mcg (0.1 %) spray,non-aerosol 1 spray intranasal BID Patient Comments: [NO ORIGINAL SIG] Prolia 60 mg/mL syringe 60 mg subcut [id number] cholecalciferol (vitamin D3) 25 mcg (1,000 unit) tablet 25 mcg PO QDAY ondansetron 4 mg tablet,disintegrating 4 mg PO Q8H PRN amitriptyline 50 mg tablet 100 mg PO QHS venlafaxine 37.5 mg capsule,extended release 24hr 37.5 mg PO DAILY tramadol 50 mg tablet 100 mg PO QHS Primary Care Provider: Narinder Crum Referrals: Narinder Crum MD [Primary Care Provider, Family Practice] - 3-5 Days Activity Restrictions/Additional Instructions: If you are still having fevers after [address] Narinder Crum or return to the emergency department. Print Language: Armenian Disposition Disposition: Home, Self Care
[2025-08-08 22:00] VITALS: BP 143/63; PULSE 81; RESP 12; O2SAT 95
[2025-08-08 22:10] VITALS: BP 143/63; PULSE 81; RESP 12; TEMP 37.3; O2SAT 95
== END 2025-08-08 22:11 | disposition home or self-care (01) ==
PROVIDERS: Emergency Provider Emergency Medicine; PCP Family Medicine; Visit Provider Emergency Medicine
DX: J18.9 Pneumonia, unspecified organism (principal); E86.0 Dehydration; D64.9 Anemia, unspecified; I12.9 Hypertensive chronic kidney disease with stage 1 through stage 4 chronic kidney disease, or unspecified chronic kidney disease; I25.2 Old myocardial infarction; N18.2 Chronic kidney disease, stage 2 (mild); M79.7 Fibromyalgia; E03.9 Hypothyroidism, unspecified; E78.5 Hyperlipidemia, unspecified; K21.9 Gastro-esophageal reflux disease without esophagitis; I25.10 Atherosclerotic heart disease of native coronary artery without angina pectoris; K59.04 Chronic idiopathic constipation; Z95.1 Presence of aortocoronary bypass graft; Z79.02 Long term (current) use of antithrombotics/antiplatelets; Z79.82 Long term (current) use of aspirin; Z79.890 Hormone replacement therapy; Z79.899 Other long term (current) drug therapy
CPT/HCPCS: 71046; 80053; 83605; 85025; 96360; 99285; A4216

== ENCOUNTER → 2025-08-13 | Outpatient (CLI) | payer MEDICARE, OTHER, SELFPAY ==
[2025-07-29 14:57] VITALS: BMI 24.0
[2025-08-13 19:14] LABS: Internal QC Validated? YES +Cl - CLEAR BKGD
[2025-08-13 19:15] LABS: Record Kit Lot#, Mono 16251077
== END | disposition home or self-care (01) ==
LOC: MFPLAB 15:53
PROVIDERS: PCP Family Medicine
DX: Z20.828 Contact with and (suspected) exposure to other viral communicable diseases (principal); R53.83 Other fatigue
CPT/HCPCS: 36415; 86308

== ENCOUNTER 2025-08-20 09:46 | Outpatient (CLI) | payer MEDICARE, OTHER, SELFPAY ==
[2025-07-29 14:57] VITALS: BMI 24.0
[2025-08-20 12:22] LABS: Hematocrit 36.6 % (37-47); Hemoglobin 11.5 g/dL (12.0-15.0); Immature Granulocytes Count 0.030 X10^3/uL (0.0-0.0); Mean Corp Hgb Conc 31.4 g/dL (32-36); Mean Corpuscular Volume 89.9 fL (81-99); Mean Platelet Vol. 9.5 fl (6.2-12.0); NRBC Flagged by Analyzer 0 % (0-5); Platelet Count 467 K/mm3 (150-450); RBC Distribution Width CV 15.1 % (11.6-14.6); RBC Distribution Width SD 50.1 fl (35.1-43.9); Red Blood Count 4.07 M/mm3 (4.2-5.4); White Blood Count 8.8 K/mm3 (4.4-11.0)
[2025-08-20 13:52] LABS: AST(SGOT) 27 U/L (<=31); Alanine Aminotransfer ALT/SGPT 9 U/L (<=34); Albumin, Serum 4.1 g/dL (3.4-4.8); Alkaline Phosphatase 88 U/L (35-104); Anion Gap 12 (5-15); BUN 20 mg/dL (4-19); BUN/Creat Ratio 31.9 RATIO (10-20); CRP 39.80 mg/L (0.0-3.0); Calcium,Total 9.9 mg/dL (7.6-11.0); Carbon Dioxide 26.2 mmol/L (21.0-32.0); Chloride 100 mmol/L (98-108); Globulin 3.4 g/dL (2.2-4.2); Glucose 97 mg/dL (70-99); Potassium 4.7 mmol/L (3.3-5.1)
[2025-08-21 04:07] LABS: GGTP 21 IU/L (0-60)
== END 2025-08-20 23:59 | disposition home or self-care (01) ==
LOC: MTLAB 09:48
PROVIDERS: PCP Family Medicine; Referring Provider Family Medicine; Visit Provider Family Medicine
DX: R10.11 Right upper quadrant pain (principal); R74.8 Abnormal levels of other serum enzymes
CPT/HCPCS: 36415; 80053; 82977; 85025; 86140

== ENCOUNTER → 2025-08-21 | Outpatient (CLI) | payer MEDICARE, OTHER, SELFPAY ==
[2025-07-29 14:57] VITALS: BMI 24.0
--- NOTE | 2025-08-21 09:45 | US_ITS ---
PROCEDURE: ABDOMEN LIMITED 08/21/2025 REASON FOR EXAM: RUQ COLICKLY PAIN, WORSE WITH EATING TECHNIQUE: Procedure Code: USABDL Modality: US Procedure: ABDOMEN LIMITED COMPARISON: None FINDINGS: Liver: Grossly normal size and echotexture. Gallbladder: No stones, sludge, wall thickening or tenderness. Gallbladder wall measures 1.1 mm Common bile duct: Normal measuring 6.5 mm. Pancreas: Visualized portions are sonographically unremarkable. Kidneys: The right kidney measures 12.2 x 7.6 x 5.7 cm. No hydronephrosis, calculi or mass. Normal cortical thickness at 1.4 cm Incidental note is made of a right pleural effusion US/Abdomen Limited IMPRESSION: No suspicious sonographic findings in the right upper quadrant Right pleural effusion Reading Location: [id number]
== END | disposition home or self-care (01) ==
PROVIDERS: PCP Family Medicine; Referring Provider Family Medicine; Visit Provider Family Medicine
DX: R10.11 Right upper quadrant pain (principal)
CPT/HCPCS: 76705

== ENCOUNTER → 2025-08-26 | Outpatient (CLI) | payer MEDICARE, OTHER, SELFPAY ==
[2025-08-26 08:50] VITALS: BMI 24.3
--- NOTE | 2025-08-26 11:55 | RAD_ITS ---
PROCEDURE: CHEST PA AND LATERAL 08/26/2025 REASON FOR EXAM: PLEURAL EFFUSION TECHNIQUE: Procedure Code: RADCXR Modality: DX Procedure: CHEST PA AND LATERAL COMPARISON: Two-view chest, 08/08/2025. FINDINGS: There are small bilateral pleural effusions. The lungs are otherwise clear. The heart size is normal. There is calcific vascular disease of the thoracic aorta. Status post CABG surgery. There is stool in the visualized colon. Status post median sternotomy. RAD/Chest PA and Lateral IMPRESSION: Bilateral pleural effusions decreased in size since the prior exam. Other find ings as noted. Reading Location: [id number]
== END | disposition home or self-care (01) ==
LOC: RAD 11:49
PROVIDERS: PCP Family Medicine; Referring Provider Nurse Practitioner Gerontology; Visit Provider Nurse Practitioner Gerontology
DX: J90 Pleural effusion, not elsewhere classified (principal)
CPT/HCPCS: 71046

== ENCOUNTER → 2025-08-28 | Outpatient (CLI) | payer MEDICARE, OTHER, SELFPAY ==
[2025-08-26 08:50] VITALS: BMI 24.3
--- NOTE | 2025-08-28 14:59 | CT_ITS ---
PROCEDURE: CHEST WITH CONTRAST 08/28/2025 REASON FOR EXAM: CRP ELEVATION TECHNIQUE: Procedure Code: CTCHW Modality: CT Procedure: CHEST WITH CONTRAST Coronal and Sagittal reconstruction series were provided. CONTRAST: Isovue-300 VOLUME: 95 mL One or more dose reduction techniques were used (e.g., Automated exposure control, adjustment of the mA and/or kV according to patient size, use of iterative reconstruction technique). RADIATION DOSE SUMMARY: CTDlvol: 26.18 mGy DLP: 213.90 mGycm COMPARISON: None FINDINGS: Lower neck:The thyroid gland is normal. There is no supraclavicular lymphadenopathy. Mediastinum:No abnormal masses or lymphadenopathy. Heart and thoracic aorta:The heart size is normal. There is no pericardial effusion. There is moderate calcific vascular disease of the thoracic aorta and coronary arteries. Status post CABG surgery. There is a pericardial pacemaker wire. Esophagus:Normal. Upper Abdomen:There is calcific vascular disease of the visualized portion of the abdominal aorta. There is a hyperenhancing area in the posterior segment of the right hepatic lobe probably artifactual. Chest wall:The soft tissues of the chest wall appear unremarkable. There is no axillary lymphadenopathy. Status post median sternotomy. There is a large Schmorl's node in the superior endplate of T11. Lungs, airways and pleura: There is a moderate right pleural effusion. There is compressive atelectasis of the adjacent lung. There are no pulmonary nodules. CT/Chest WITH Contrast IMPRESSION: 1. Moderate right pleural effusion probably postoperative status post CABG sophie kathy. There is compressive atelectasis of the adjacent lung. 2. Calcific vascular disease. Status post CABG surgery. 3. Other findings as noted. Reading Location: [place] [id number]
== END | disposition home or self-care (01) ==
LOC: CT 14:58
PROVIDERS: PCP Family Medicine; Referring Provider Family Medicine; Visit Provider Family Medicine
DX: R79.82 Elevated C-reactive protein (CRP) (principal)
CPT/HCPCS: 71260; Q9967

== ENCOUNTER → 2025-09-10 | Outpatient (CLI) | payer MEDICARE, OTHER, SELFPAY ==
[2025-08-26 08:50] VITALS: BMI 24.3
--- NOTE | 2025-09-10 14:14 | RAD_ITS ---
PROCEDURE: CHEST PA AND LATERAL 09/10/2025 REASON FOR EXAM: CABG TECHNIQUE: Procedure Code: RADCXR Modality: DX Procedure: CHEST PA AND LATERAL COMPARISON: 08/26/2025 FINDINGS: Sternotomy wires. Heart monitoring noted. Evidence of prior CABG. Hyperinflated lungs may reflect COPD/pulmonary emphysema. No focal consolidations. No pleural effusion or pneumothorax. Cardiac silhouette is unremarkable. Calcified aortic arch. No acute fractures. RAD/Chest PA and Lateral IMPRESSION: Hyperinflated lungs may reflect COPD/pulmonary emphysema. No focal consolidations. Reading Location: [id number]
== END | disposition home or self-care (01) ==
LOC: RAD 14:08
PROVIDERS: PCP Family Medicine; Referring Provider Internal Medicine Cardiovascular Disease; Visit Provider Internal Medicine Cardiovascular Disease
DX: J90 Pleural effusion, not elsewhere classified (principal)
CPT/HCPCS: 71046

== ENCOUNTER → 2025-09-12 | Outpatient (CLI) | payer MEDICARE, OTHER, SELFPAY ==
[2025-08-26 08:50] VITALS: BMI 24.3
[2025-09-12 15:35] LABS: AST(SGOT) 42 U/L (<=31); Alanine Aminotransfer ALT/SGPT 19 U/L (<=34); Albumin, Serum 4.1 g/dL (3.4-4.8); Alkaline Phosphatase 93 U/L (35-104); Bilirubin, Direct 0.11 mg/dL (0.00-0.30); Globulin 2.9 g/dL (2.2-4.2)
[2025-09-12 15:58] LABS: Cholesterol 160 mg/dL (<=200); Low Density Lipoprotein Calc. 71 mg/dL; Triglycerides 117 mg/dL; Very Low Density Lipoprotein 23 mg/dL (5-40); cholesterol:hdl ratio screen 2.34
== END | disposition home or self-care (01) ==
LOC: MTLAB 11:09
PROVIDERS: PCP Family Medicine; Referring Provider Student in an Organized Health Care Education/Training Program; Visit Provider Student in an Organized Health Care Education/Training Program
DX: I25.10 Atherosclerotic heart disease of native coronary artery without angina pectoris (principal); E03.9 Hypothyroidism, unspecified
CPT/HCPCS: 36415; 80061; 80076; 84443

== ENCOUNTER 2025-09-20 14:15 | Outpatient (RCR) | payer MEDICARE, OTHER, SELFPAY ==
[2025-07-29 14:57] VITALS: BMI 24.0
--- NOTE | 2025-08-26 08:39 | CR.ITP_ITS ---
Exercise - Initial Assessment Visit Session #:: 5 Physician Prescribed Exercise Modalities: Treadmill, SciFit Stepper and SciFit Lateral [place] Nutrition - Initial Assessment Weight Mgt (Other Care) Height: 5 ft 3 in Weight:: 137 lb BMI: 24.3 Psychosocial - Initial Assess Referral to Behavioral Health PS - Interventions: Yes: Attend Stress Management Classes Exercise - 30-day Assessment Visit Date of Eval: 08/26/25 Session #:: 5 Physician Prescribed Exercise Modalities: Treadmill, SciFit Stepper and SciFit Lateral [place] Frequency: 3x/week for 12 weeks [36 sessions] Intensity: 60-80% of age predicted maximum heart rate reserve Duration: 30 - 45 minutes Current METSs:: 3.9 Target Heart Rate:: 95-110 Current RPE:: 12-13 Maximum Excercise HR:: 100 Resting Blood Pressure: 150/60 Maximum Exercise Blood Pressure: 156/66 EKG Type: NSR to ST w/Twave inversion w/rare pac. Outcomes & Goals Goals:: Verbalizes understanding of THR, RPE & goal METS by session 6, Documents in home exercise log/reports 30 min aerobic 5 day/wk by DC, Demonstrates accurate pulse taking by DC and Other additional outcome/goals: see below Intervention & Plan Exercise Program Goals: Instruct on personal THR & RPE, Instruct on MET level & personal MET goal, Show patient to take own pulse /validate performance until accurate, Instruct on home exercise and Other additional plan/int Physical Activity Home Exercise Physical Activity - Home Exercise: Safe Exercise, Warm-up, Self-monitoring, Cool-Down, Home Exercise > 30 min Daily and Sitting Time <3 hours/daily Outcomes & Goals Outcomes/Goals: Demonstrates correct Warm-up/exercise Cool-Down (S3) if = 2.5 METs, Verbalizes symptoms of exercise intolerance by Session 3 (S3), Demonstrate safe equipment use (S3) & follows exercise prescrition (6) and Other: See below Intervention & Plan Plan/Intervention: Instruct warm-up & cool-down if exercising at > 2 METs, Instruct on symptoms of exercise intolerance & actions to take, Instruct & monitor on saf, Assess intial functional capacity & safety risk and Other See below 30-day Reassessments 30 day Reassessments:: Progressing Reassessment Notes & Comments:: Pt oriented to equipment. RPE explained to pt. Pt demonstrates understanding in his daily sessions. Exercise - 60-day Assessment Physician Prescribed Exercise Modalities: Treadmill, SciFit Stepper and SciFit Lateral [place] Exercise - 90-day Assessment Physician Prescribed Exercise Modalities: Treadmill, SciFit Stepper and SciFit Lateral Fuel Conversion Technician Exercise - Final/Discharge Physician Prescribed Exercise Modalities: Treadmill, SciFit Stepper and SciFit Lateral [place] Nutrition - 30-Day Assessment Program Goals Nutrition Program Goals Patient has diagnosis of Hyperlipidemia (ICD E78)?: Yes Visit Date of Eval: 08/26/25 Session #:: 5 (Nutrition survey score of 6.) Cholesterol/Lipids (Other Core Measures) Determine presence & major risk factors that modify LDL goal: Hypertension or hypertensive medication, Low HDL cholesterol <40 mg/dL*, Family history of premature CHD in Male < 55 years: female <65 yearsFa and Age men > 45 years; women >/= 55 years Diabetes (Other Core Measures) Diabetes Type: Not Applicable Weight Mgt (Other Care) Height: 5 ft 3 in Weight:: 137 lb BMI: 24.3 Diagnosis Overweight/Obesity BMI> 30% ICD-10 E66: No Diagnosis High BMI/Morbid Obesity BMI> 35% ICD-10 Z68: No Outcomes/Goals: Pt sets, maintains & shows weight loss goal & trend during rehab and Other additional outcomes/goals Intervention/Plan: Instruct on ideal BMI & set weight loss goal w/patient, Assist pt to ID & incorporate diet changes for weight loss by S9, Refer to Structured Weight Loss program as appropriate, Encourage goal of using 250- 300dcal per session for weight loss and Other additional plan/interventions Healthy Eating Habits Will attend diet classes:: Yes Outcomes/Goals:: Consume diet rich in vegs,fruits,whole grain/high fiber,fish,lean meat, Limit sat/trans fats,cholesterol & added salts & sugars and Other additional outcome/goals: 30-day Reassessments:: Progressing Reassessment Notes & Comments:: Pt is at a healthy weight. Pt is scheduled to attend nutrition classes with our mechanical fitter. Heart healthy low sodium diet encouraged. Education Gave educational materials for:: Signs & symptoms of hypoglycemia, Signs & symptoms of hyperglycemia, Relate diabetes to coronary artery disease and Healthy eating Nutrition - 60-Day Assessment Weight Mgt (Other Care) Height: 5 ft 3 in Weight:: 137 lb BMI: 24.3 Core - 30-Day Assessment Visit Date of Eval: 08/26/25 Session #:: 5 Medication Compliance Preventative Medication(s):: Aspirin, Clopidogrel/P2Y12 inhibit and Beta karlo H/O mental health issues: depression, anxiety, or addiction?: No Doesn’t believe in the benefits of treatment?: No Believes medications are unnecessary or harmful?: No Has a concern about medication side effects?: No Expresses concern over the cost of medications?: No Outcomes/Goals: Verbalizes medications,desired effect & common side effects @ DC, Pt self-reports following medication regimen, Keeps card in wallet w/medications listed by DC and Other additional outcome/goals: Interventions/plans: Instruct on medication effects & side effects, Review medication list w/patient every two weeks, Instruct importance of taking meds as ordered & assist problem solving and Other additional Tobacco Use Tobacco Use: Non-smoker Hypertension Hypertension Diagnosis:: Hypertension ICD-10 I10 Resting Blood Pressure:: 150/60 [place] [employer] Hypertension Guidelines Peak Exercise Blood Pressure:: 156/66 Outcomes/Goals: Able to verbalize/achieve optimal blood pressure <130/80, Incorporates diet changes & exercise for blood pressure control by DC and Other additional outcomes/goals Interventions/plan: Instruct on optimal blood pressure, hypertension & medications, Instruct on effects of sodium, alcohol, stress, exercise &hypertension and Other additional plan/interventions 30 day Reassessments:: Progressing Reassessment Notes & Comments:: Pt's BP's are within AHA normal limits on most days. Low sodium heart healthy diet encouraged. Will continue to monitor and report to pt's physician if necessary. Tobacco Cessation Referral Smoking Cessation Referral:: No Individual Education/Counseling:: No Education Schedule Given:: Yes Psychosocial - 30-Day Assess VIsit Date of Eval: 08/26/25 Session #:: 5 Self-reported stressors Other/Comments:: Other (Pt reports that family and recent illness has been difficult. Pt declines counseling at this time. Pt has spoke with her real estate salesperson and a counselor.) Psychosocial Test Tool Used:: PHQ-9 Questionnaire phq-9 Severity See PHQ-9 Score: 6 Referral to Behavioral Health PS - Interventions: Yes: Attend Stress Management Classes Outcomes/Goals: See list Psychosocial Outcomes/Goals:: ID's personal stressors & 2 strategies to manage stress by discharge and Other Additional outcome/goals: Intervention/Plan: See List Interventions/Plan:: Assess stressors,coping strategies & signs of derpression on admission, Instruct/assist pt to develop coping & personal stress Mgt strategies, Refer to Behavioral Health if appropriate, Refer to Physician if appropriate, Instruct patient to recognize signs & symptoms of depression, Instruct patient to recog and Other additional plan/intervention 30-day Reassessments: 30 day Reassessments:: Progressing Reassessment Notes & Comments:: Pt to attend stress management class. Will reassess every 30 days. Psychosocial - 60-Day Assess Referral to Behavioral Health PS - Interventions: Yes: Attend Stress Management Classes Outcomes/Goals: See list Psychosocial Outcomes/Goals:: ID's personal stressors & 2 strategies to manage stress by discharge and Other Additional outcome/goals: Psychosocial - 90-Day Assess Referral to Behavioral Health PS - Interventions: Yes: Attend Stress Management Classes Psychosocial - Final Assessmen Referral to Behavioral Health PS - Interventions: Yes: Attend Stress Management Classes Nutrition - 90-Day Assessment Weight Mgt (Other Care) Height: 5 ft 3 in Weight:: 137 lb BMI: 24.3 Nutrition - Final Assessment Weight Mgt (Other Care) Height: 5 ft 3 in Weight:: 137 lb BMI: 24.3
[2025-08-26 08:50] VITALS: BP 150/60; BMI 24.3
== END 2025-09-20 23:59 ==
LOC: CR 14:15
PROVIDERS: PCP Family Medicine; Referring Provider Internal Medicine Cardiovascular Disease; Visit Provider Internal Medicine Cardiovascular Disease
DX: I25.10 Atherosclerotic heart disease of native coronary artery without angina pectoris (principal); Z95.1 Presence of aortocoronary bypass graft
CPT/HCPCS: 93798

== ENCOUNTER 2025-10-16 14:15 | Outpatient (RCR) | payer MEDICARE, OTHER, SELFPAY ==
[2025-08-26 08:50] VITALS: BMI 24.3
--- NOTE | 2025-09-23 09:35 | CR.ITP_ITS ---
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 Exercise - 60-day Assessment Visit Date of Eval: 09/23/25 Session #:: 14 Physician Prescribed Exercise Modalities: Treadmill, SciFit Stepper and SciFit Lateral [place] Frequency: 3x/week for 12 weeks [36 sessions] Intensity: 60-80% of age predicted maximum heart rate reserve Duration: 30 - 45 minutes Current METSs:: 4.7 Target Heart Rate:: 95-110 Current RPE:: 12-13 Maximum Excercise HR:: 92 Resting Blood Pressure: 120/74 Maximum Exercise Blood Pressure: 142/70 EKG Type: NSR w/rare PAC, PVC Outcomes & Goals Goals:: Verbalizes understanding of THR, RPE & goal METS by session 6, Documents in home exercise log/reports 30 min aerobic 5 day/wk by DC, Demonstrates accurate pulse taking by DC and Other additional outcome/goals: see below Intervention & Plan Exercise Program Goals: Instruct on personal THR & RPE, Instruct on MET level & personal MET goal, Show patient to take own pulse /validate performance until accurate, Instruct on home exercise and Other additional plan/int Physical Activity Home Exercise Physical Activity - Home Exercise: Safe Exercise, Warm-up, Self-monitoring, Cool-Down, Home Exercise > 30 min Daily and Sitting Time <3 hours/daily Outcomes & Goals Outcomes/Goals: Demonstrates correct Warm-up/exercise Cool-Down (S3) if = 2.5 METs, Verbalizes symptoms of exercise intolerance by Session 3 (S3), Demonstrate safe equipment use (S3) & follows exercise prescrition (6) and Other: See below Intervention & Plan Plan/Intervention: Instruct warm-up & cool-down if exercising at > 2 METs, Instruct on symptoms of exercise intolerance & actions to take, Instruct & monitor on saf, Assess intial functional capacity & safety risk and Other See below 30-day Reassessments 30 day Reassessments:: Progressing Reassessment Notes & Comments:: Proper warm up and cool down demonstrated and explained to pt. Pt is able to return demonstration in their daily sessions. Exercise - 90-day Assessment Physician Prescribed Exercise Modalities: Treadmill, SciFit Stepper and SciFit Lateral [place] Exercise - Final/Discharge Physician Prescribed Exercise Modalities: Treadmill, SciFit Stepper and SciFit Lateral [place] Nutrition - 30-Day Assessment Weight Mgt (Other Care) Height: 5 ft 3 in Weight:: 134 lb BMI: 23.7 Nutrition - 60-Day Assessment Program Goals Nutrition Program Goals Patient has diagnosis of Hyperlipidemia (ICD E78)?: Yes Visit Date of Eval: 09/23/25 Session #:: 14 Cholesterol/Lipids (Other Core Measures) Determine presence & major risk factors that modify LDL goal: Cigarette smoking, Hypertension or hypertensive medication, Low HDL cholesterol <40 mg/dL*, Family history of premature CHD in Male < 55 years: female <65 yearsFa and Age men > 45 years; women >/= 55 years Outcomes/Goals: Pt IDs own risk factors & lifestyle modifications by Session 10, Verbalizes symptoms of angina & response by session 3., Pt independently manages and Other Additional Outcomes/Goals: Intervention/Plan: Advocate for lipid panel cholesterol medication if applicable, Instruct on personal lipid levels & lipid goals/NCEP guidelines, Instruct on cholesterol and Other additional plan/int Diabetes (Other Core Measures) Diabetes Type: Not Applicable Weight Mgt (Other Care) Height: 5 ft 3 in Weight:: 134 lb BMI: 23.7 Diagnosis Overweight/Obesity BMI> 30% ICD-10 E66: No Diagnosis High BMI/Morbid Obesity BMI> 35% ICD-10 Z68: No Outcomes/Goals: Pt sets, maintains & shows weight loss goal & trend during rehab and Other additional outcomes/goals Intervention/Plan: Instruct on ideal BMI & set weight loss goal w/patient, Assist pt to ID & incorporate diet changes for weight loss by S9, Refer to Structured Weight Loss program as appropriate, Encourage goal of using 250- 300dcal per session for weight loss and Other additional plan/interventions 30 day Reassessments:: Met Reassessment Notes & Comments:: Pt is at a healthy weight. 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 Heart healthy low sodium diet encouraged. Healthy Eating Habits Will attend diet classes:: Yes Outcomes/Goals:: Consume diet rich in vegs,fruits,whole grain/high fiber,fish,lean meat, Limit sat/trans fats,cholesterol & added salts & sugars and Other additional outcome/goals: Intervention/Plan:: Assess current eating habits and Other Additional plan/interventions 30-day Reassessments:: Progressing Reassessment Notes & Comments:: Pt is scheduled to attend nutrition classes with our irrigation teacher. Heart healthy low sodium diet encouraged. Education Gave educational materials for:: Signs & symptoms of hypoglycemia, Signs & symptoms of hyperglycemia, Relate diabetes to coronary artery disease and Healthy eating Core - Final Assessment Hypertension Resting Blood Pressure:: 122/64 [place] [employer] Hypertension Guidelines Core - 60-Day Assessment Visit Date of Eval: 09/23/25 Session #:: 14 Medication Compliance Preventative Medication(s):: Aspirin, Clopidogrel/P2Y12 inhibit and Beta karlo Doesn’t believe in the benefits of treatment?: No Believes medications are unnecessary or harmful?: No Has a concern about medication side effects?: No Expresses concern over the cost of medications?: No Outcomes/Goals: Verbalizes medications,desired effect & common side effects @ DC, Pt self-reports following medication regimen, Keeps card in wallet w/medications listed by DC and Other additional outcome/goals: Interventions/plans: Instruct on medication effects & side effects, Review medication list w/patient every two weeks, Instruct importance of taking meds as ordered & assist problem solving and Other additional 30-day Reassessments:: Progressing Reassessment Notes & Comments:: 09/04 indapamide 2.5 mg QD added. Tobacco Use Tobacco Use: Non-smoker Outcomes/Goals: Smoking cessation achieved or maintained by discharge, Identify aids/strategies for achieving smoking cessation by session 6 and Other additional outcome/goals Interventions/plan: Instruct on effects of smoking & provide smoking cessation resource, Assist pt to set quit date & provide encouragement, Assist pt to develop strategies to achieve/maintain quit date, Assist pt w/nicotine replacement & medication for cessation success and Other additional plan/interventions Hypertension Hypertension Diagnosis:: Hypertension ICD-10 I10 Resting Blood Pressure:: 120/74 Resting Blood Pressure:: 122/64 [place] [employer] Hypertension Guidelines Peak Exercise Blood Pressure:: 142/70 Outcomes/Goals: Able to verbalize/achieve optimal blood pressure <130/80, Incorporates diet changes & exercise for blood pressure control by DC and Other additional outcomes/goals Interventions/plan: Instruct on optimal blood pressure, hypertension & medications, Instruct on effects of sodium, alcohol, stress, exercise &hypertension and Other additional plan/interventions 30 day Reassessments:: Progressing Reassessment Notes & Comments:: 09/04 indapamide 2.5 mg QD added. Tobacco Cessation Referral Smoking Cessation Referral:: No Individual Education/Counseling:: No Education Schedule Given:: Yes Psychosocial - 30-Day Assess Referral to Behavioral Health PS - Interventions: Yes: Attend Stress Management Classes Outcomes/Goals: See list Psychosocial Outcomes/Goals:: ID's personal stressors & 2 strategies to manage stress by discharge and Other Additional outcome/goals: Psychosocial - 60-Day Assess VIsit Date of Eval: 09/23/25 Session #:: 14 Self-reported stressors Other/Comments:: Other (Pt states that recent illness has been difficult. Pt declines counseling at this tome. Pt has spoken with her terminologist and a counselor.) Psychosocial Test Tool Used:: PHQ-9 Questionnaire phq-9 Severity See PHQ-9 Score: 6 Referral to Behavioral Health PS - Interventions: Yes: Attend Stress Management Classes Outcomes/Goals: See list Psychosocial Outcomes/Goals:: ID's personal stressors & 2 strategies to manage stress by discharge and Other Additional outcome/goals: Intervention/Plan: See List Interventions/Plan:: Assess stressors,coping strategies & signs of derpression on admission, Instruct/assist pt to develop coping & personal stress Mgt strategies, Refer to Behavioral Health if appropriate, Refer to Physician if appropriate, Instruct patient to recognize signs & symptoms of depression, Instruct patient to recog and Other additional plan/intervention 30-day Reassessments: 30 day Reassessments:: Progressing Reassessment Notes & Comments:: Pt denies any psychosocial issues at this time. Pt to attend stress management class. Will reassess every 30 days. Psychosocial - 90-Day Assess Referral to Behavioral Health PS - Interventions: Yes: Attend Stress Management Classes Psychosocial - Final Assessmen Referral to Behavioral Health PS - Interventions: Yes: Attend Stress Management Classes Nutrition - 90-Day Assessment Weight Mgt (Other Care) Height: 5 ft 3 in Weight:: 134 lb BMI: 23.7 Nutrition - Final Assessment Weight Mgt (Other Care) Height: 5 ft 3 in Weight:: 134 lb BMI: 23.7
[2025-09-23 09:47] VITALS: BP 120/74; BP 122/64; BMI 23.7
--- NOTE | 2025-10-15 13:46 | CR.ITP_ITS ---
Exercise - Initial Assessment Physician Prescribed Exercise Modalities: Treadmill, SciFit Stepper and SciFit Lateral [place] Nutrition - Initial Assessment Weight Mgt (Other Care) Height: 5 ft 3 in Weight:: 135 lb 8 oz BMI: 24.0 Psychosocial - Initial Assess Referral to Behavioral Health PS - Interventions: Yes: Attend Stress Management Classes Exercise - 30-day Assessment Physician Prescribed Exercise Modalities: Treadmill, SciFit Stepper and SciFit Lateral [place] Exercise - 60-day Assessment Physician Prescribed Exercise Modalities: Treadmill, SciFit Stepper and SciFit Lateral [place] Exercise - 90-day Assessment Visit Date of Eval: 10/15/25 Session #:: 21 Physician Prescribed Exercise Modalities: Treadmill, SciFit Stepper and SciFit Lateral [place] Frequency: 3x/week for 12 weeks [36 sessions] Intensity: 60-80% of age predicted maximum heart rate reserve Duration: 30 - 45 minutes Current METSs:: 5.7 Target Heart Rate:: 95-117 Current RPE:: 12-13 Maximum Excercise HR:: 100 Resting Blood Pressure: 132/70 Maximum Exercise Blood Pressure: 152/76 EKG Type: NSR-ST w/rare PAC, PVC Current Physical Activity or Exercising minutes: 30-45 Outcomes & Goals Goals:: Verbalizes understanding of THR, RPE & goal METS by session 6, Documents in home exercise log/reports 30 min aerobic 5 day/wk by DC, Demonstrates accurate pulse taking by DC and Other additional outcome/goals: see below Intervention & Plan Exercise Program Goals: Instruct on personal THR & RPE, Instruct on MET level & personal MET goal, Show patient to take own pulse /validate performance until accurate, Instruct on home exercise and Other additional plan/int Physical Activity Home Exercise Physical Activity - Home Exercise: Safe Exercise, Warm-up, Self-monitoring, Cool-Down, Home Exercise > 30 min Daily and Sitting Time <3 hours/daily Outcomes & Goals Outcomes/Goals: Demonstrates correct Warm-up/exercise Cool-Down (S3) if = 2.5 METs, Verbalizes symptoms of exercise intolerance by Session 3 (S3), Demonstrate safe equipment use (S3) & follows exercise prescrition (6) and Other: See below Intervention & Plan Plan/Intervention: Instruct warm-up & cool-down if exercising at > 2 METs, Instruct on symptoms of exercise intolerance & actions to take, Instruct & monitor on saf, Assess intial functional capacity & safety risk and Other See below 30-day Reassessments 30 day Reassessments:: Progressing Reassessment Notes & Comments:: Pt is progressing her exercise intensity. Will continue to encourage and increase intensity as tolerated. Exercise - Final/Discharge Physician Prescribed Exercise Modalities: Treadmill, SciFit Stepper and SciFit Lateral [place] Nutrition - 30-Day Assessment Weight Mgt (Other Care) Height: 5 ft 3 in Weight:: 135 lb 8 oz BMI: 24.0 Nutrition - 60-Day Assessment Weight Mgt (Other Care) Height: 5 ft 3 in Weight:: 135 lb 8 oz BMI: 24.0 Core - 30-Day Assessment Hypertension [place] [employer] Hypertension Guidelines Reassessment Notes & Comments:: Pt's BP's are within AHA normal limits on most days. Will continue to monitor and report to pt's physician if necessary. Core - Final Assessment Hypertension [place] [employer] Hypertension Guidelines Reassessment Notes & Comments:: Pt's BP's are within AHA normal limits on most days. Will continue to monitor and report to pt's physician if necessary. Core - 90 Day Assessment Visit Date of Eval: 10/15/25 Session #:: 21 Medication Compliance Preventative Medication(s):: Aspirin, Clopidogrel/P2Y12 inhibit and Beta karlo H/O mental health issues: depression, anxiety, or addiction?: No Doesn’t believe in the benefits of treatment?: No Believes medications are unnecessary or harmful?: No Has a concern about medication side effects?: No Expresses concern over the cost of medications?: No Outcomes/Goals: Verbalizes medications,desired effect & common side effects @ DC, Pt self-reports following medication regimen, Keeps card in wallet w/medications listed by DC and Other additional outcome/goals: Interventions/plans: Instruct on medication effects & side effects, Review medication list w/patient every two weeks, Instruct importance of taking meds as ordered & assist problem solving and Other additional Tobacco Use Tobacco Use: Non-smoker Hypertension Hypertension Diagnosis:: Hypertension ICD-10 I10 Resting Blood Pressure:: 132/70 [place] [employer] Hypertension Guidelines Peak Exercise Blood Pressure:: 152/76 Outcomes/Goals: Able to verbalize/achieve optimal blood pressure <130/80, Incorporates diet changes & exercise for blood pressure control by DC and Other additional outcomes/goals Interventions/plan: Instruct on optimal blood pressure, hypertension & medications, Instruct on effects of sodium, alcohol, stress, exercise &hypertension and Other additional plan/interventions 30 day Reassessments:: Progressing Reassessment Notes & Comments:: Pt's BP's are within AHA normal limits on most days. Will continue to monitor and report to pt's physician if necessary. Tobacco Cessation Referral Smoking Cessation Referral:: No Individual Education/Counseling:: No Education Schedule Given:: Yes Psychosocial - 30-Day Assess Referral to Behavioral Health PS - Interventions: Yes: Attend Stress Management Classes Psychosocial - 60-Day Assess Referral to Behavioral Health PS - Interventions: Yes: Attend Stress Management Classes Psychosocial - 90-Day Assess VIsit Date of Eval: 10/15/25 Session #:: 21 Self-reported stressors Other/Comments:: Other (Pt states that recent illness has been difficult. Pt declines counseling at this time. 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 and a counselor as well.) Psychosocial Test Tool Used:: [employer] QOL Cardiac and PHQ-9 Questionnaire phq-9 Severity See PHQ-9 Score: 6 Referral to Behavioral Health PS - Interventions: Yes: Attend Stress Management Classes Outcomes/Goals: See list Psychosocial Outcomes/Goals:: ID's personal stressors & 2 strategies to manage stress by discharge and Other Additional outcome/goals: Intervention/Plan: See List Interventions/Plan:: Assess stressors,coping strategies & signs of derpression on admission, Instruct/assist pt to develop coping & personal stress Mgt strategies, Refer to Behavioral Health if appropriate, Refer to Physician if appropriate, Instruct patient to recognize signs & symptoms of depression, Instruct patient to recog and Other additional plan/intervention 30-day Reassessments: 30 day Reassessments:: Progressing Reassessment Notes & Comments:: Pt denies any psychosocial issues at this time. Pt to attend stress management class. Will reassess every 30 days. Psychosocial - Final Assessmen Referral to Behavioral Health PS - Interventions: Yes: Attend Stress Management Classes Nutrition - 90-Day Assessment Program Goals Nutrition Program Goals Patient has diagnosis of Hyperlipidemia (ICD E78)?: Yes Visit Date of Eval: 10/15/25 Session #:: 21 Cholesterol/Lipids (Other Core Measures) Determine presence & major risk factors that modify LDL goal: Hypertension or hypertensive medication, Low HDL cholesterol <40 mg/dL*, Family history of premature CHD in Male < 55 years: female <65 yearsFa and Age men > 45 years; women >/= 55 years Outcomes/Goals: Pt IDs own risk factors & lifestyle modifications by Session 10, Verbalizes symptoms of angina & response by session 3., Pt independently manages and Other Additional Outcomes/Goals: Intervention/Plan: Advocate for lipid panel cholesterol medication if applicable, Instruct on personal lipid levels & lipid goals/NCEP guidelines, Instruct on cholesterol and Other additional plan/int Diabetes (Other Core Measures) Diabetes Type: Not Applicable Weight Mgt (Other Care) Height: 5 ft 3 in Weight:: 135 lb 8 oz BMI: 24.0 Diagnosis Overweight/Obesity BMI> 30% ICD-10 E66: No Diagnosis High BMI/Morbid Obesity BMI> 35% ICD-10 Z68: No Outcomes/Goals: Pt sets, maintains & shows weight loss goal & trend during rehab and Other additional outcomes/goals Intervention/Plan: Instruct on ideal BMI & set weight loss goal w/patient, Assist pt to ID & incorporate diet changes for weight loss by S9, Refer to Structured Weight Loss program as appropriate, Encourage goal of using 250- 300dcal per session for weight loss and Other additional plan/interventions Healthy Eating Habits Will attend diet classes:: Yes Outcomes/Goals:: Consume diet rich in vegs,fruits,whole grain/high fiber,fish,lean meat, Limit sat/trans fats,cholesterol & added salts & sugars and Other additional outcome/goals: Intervention/Plan:: Assess current eating habits and Other Additional plan/interventions 30-day Reassessments:: Met Reassessment Notes & Comments:: Pt has attended nutrition class. Pt understands the benefits of a hearth healthy low sodium diet. Education Gave educational materials for:: Signs & symptoms of hypoglycemia, Signs & symptoms of hyperglycemia, Relate diabetes to coronary artery disease and Healthy eating Nutrition - Final Assessment Weight Mgt (Other Care) Height: 5 ft 3 in Weight:: 135 lb 8 oz BMI: 24.0
[2025-10-15 13:58] VITALS: BP 132/70; BMI 24.0
== END 2025-10-20 23:59 ==
LOC: CR 14:15
PROVIDERS: PCP Family Medicine; Referring Provider Internal Medicine Cardiovascular Disease; Visit Provider Internal Medicine Cardiovascular Disease
DX: I25.10 Atherosclerotic heart disease of native coronary artery without angina pectoris (principal); Z95.1 Presence of aortocoronary bypass graft
CPT/HCPCS: 93798

== ENCOUNTER 2025-11-20 14:15 | Outpatient (RCR) | payer MEDICARE, OTHER, SELFPAY ==
[2025-10-15 13:58] VITALS: BMI 24.0
--- NOTE | 2025-11-13 10:13 | CR.ITP_ITS ---
Exercise - Initial Assessment Physician Prescribed Exercise Modalities: Treadmill, SciFit Stepper and SciFit Lateral [place] Nutrition - Initial Assessment Weight Mgt (Other Care) Height: 5 ft 3 in Weight:: 135 lb BMI: 23.9 Psychosocial - Initial Assess Referral to Behavioral Health PS - Interventions: Yes: Attend Stress Management Classes Exercise - 30-day Assessment Physician Prescribed Exercise Modalities: Treadmill, SciFit Stepper and SciFit Lateral Automatic Pinsetter Adjuster Exercise - 60-day Assessment Physician Prescribed Exercise Modalities: Treadmill, SciFit Stepper and SciFit Lateral Automatic Pinsetter Adjuster Exercise - 90-day Assessment Visit Date of Eval: 11/13/25 Session #:: 27 (120 day ITP) Physician Prescribed Exercise Modalities: Treadmill, SciFit Stepper and SciFit Lateral [place] Frequency: 3x/week for 12 weeks [36 sessions] Intensity: 60-80% of age predicted maximum heart rate reserve Duration: 30 - 45 minutes Current METSs:: 6.1 Target Heart Rate:: 95-117 Current RPE:: 13-14 Maximum Excercise HR:: 91 Resting Blood Pressure: 112/54 Maximum Exercise Blood Pressure: 134/76 EKG Type: NSR w/ a rare PAC/PVC Outcomes & Goals Goals:: Verbalizes understanding of THR, RPE & goal METS by session 6, Documents in home exercise log/reports 30 min aerobic 5 day/wk by DC, Demonstrates accurate pulse taking by DC and Other additional outcome/goals: see below Intervention & Plan Exercise Program Goals: Instruct on personal THR & RPE, Instruct on MET level & personal MET goal, Show patient to take own pulse /validate performance until accurate, Instruct on home exercise and Other additional plan/int Physical Activity Home Exercise Physical Activity - Home Exercise: Safe Exercise, Warm-up, Self-monitoring, Cool-Down, Home Exercise > 30 min Daily and Sitting Time <3 hours/daily Outcomes & Goals Outcomes/Goals: Demonstrates correct Warm-up/exercise Cool-Down (S3) if = 2.5 METs, Verbalizes symptoms of exercise intolerance by Session 3 (S3), Demonstrate safe equipment use (S3) & follows exercise prescrition (6) and Other: See below Intervention & Plan Plan/Intervention: Instruct warm-up & cool-down if exercising at > 2 METs, Instruct on symptoms of exercise intolerance & actions to take, Instruct & monitor on saf, Assess intial functional capacity & safety risk and Other See below 30-day Reassessments 30 day Reassessments:: Progressing Reassessment Notes & Comments:: Pt is progressing her exercise intensity. Will continue to encourage and increase intensity as tolerated. Exercise - Final/Discharge Physician Prescribed Exercise Modalities: Treadmill, SciFit Stepper and SciFit Lateral [place] Nutrition - 30-Day Assessment Weight Mgt (Other Care) Height: 5 ft 3 in Weight:: 135 lb BMI: 23.9 Nutrition - 60-Day Assessment Weight Mgt (Other Care) Height: 5 ft 3 in Weight:: 135 lb BMI: 23.9 Core - 30-Day Assessment Hypertension [place] [employer] Hypertension Guidelines Reassessment Notes & Comments:: Pt's BP's are within AHA normal limits on most days. Will continue to monitor and report to pt's physician if necessary. Core - Final Assessment Hypertension [place] [employer] Hypertension Guidelines Reassessment Notes & Comments:: Pt's BP's are within AHA normal limits on most days. Will continue to monitor and report to pt's physician if necessary. Core - 90 Day Assessment Visit Date of Eval: 11/13/25 Session #:: 27 Medication Compliance Preventative Medication(s):: Aspirin, Clopidogrel/P2Y12 inhibit, Ticagrelor/P2Y12 inhibitor and Beta karlo H/O mental health issues: depression, anxiety, or addiction?: No Doesn?t believe in the benefits of treatment?: No Believes medications are unnecessary or harmful?: No Has a concern about medication side effects?: No Expresses concern over the cost of medications?: No Outcomes/Goals: Verbalizes medications,desired effect & common side effects @ DC, Pt self-reports following medication regimen, Keeps card in wallet w/medications listed by DC and Other additional outcome/goals: Interventions/plans: Instruct on medication effects & side effects, Review medication list w/patient every two weeks, Instruct importance of taking meds as ordered & assist problem solving and Other additional Tobacco Use Tobacco Use: Non-smoker Hypertension Hypertension Diagnosis:: Hypertension ICD-10 I10 Resting Blood Pressure:: 112/54 [place] [employer] Hypertension Guidelines Peak Exercise Blood Pressure:: 134/76 Outcomes/Goals: Able to verbalize/achieve optimal blood pressure <130/80, Incorporates diet changes & exercise for blood pressure control by DC and Other additional outcomes/goals Interventions/plan: Instruct on optimal blood pressure, hypertension & medications, Instruct on effects of sodium, alcohol, stress, exercise &hypertension and Other additional plan/interventions 30 day Reassessments:: Met Reassessment Notes & Comments:: Pt's BP's are within AHA normal limits on most days. Will continue to monitor and report to pt's physician if necessary. Tobacco Cessation Referral Smoking Cessation Referral:: No Individual Education/Counseling:: No Education Schedule Given:: Yes Psychosocial - 30-Day Assess Referral to Behavioral Health PS - Interventions: Yes: Attend Stress Management Classes Psychosocial - 60-Day Assess Referral to Behavioral Health PS - Interventions: Yes: Attend Stress Management Classes Psychosocial - 90-Day Assess VIsit Date of Eval: 11/13/25 Session #:: 27 Self-reported stressors Other/Comments:: Recent Illness (Pt states that recent illness has been difficult. Pt declines additional counseling at this time. 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.) Psychosocial Test Tool Used:: [employer] QOL Cardiac and PHQ-9 Questionnaire phq-9 Severity See PHQ-9 Score: 6 Referral to Behavioral Health PS - Interventions: Yes: Attend Stress Management Classes Outcomes/Goals: See list Psychosocial Outcomes/Goals:: ID's personal stressors & 2 strategies to manage stress by discharge and Other Additional outcome/goals: Intervention/Plan: See List Interventions/Plan:: Assess stressors,coping strategies & signs of derpression on admission, Instruct/assist pt to develop coping & personal stress Mgt strategies, Refer to Behavioral Health if appropriate, Refer to Physician if appropriate, Instruct patient to recognize signs & symptoms of depression, Instruct patient to recog and Other additional plan/intervention 30-day Reassessments: 30 day Reassessments:: Met Reassessment Notes & Comments:: Pt has attended stress management classes. Psychosocial - Final Assessmen Referral to Behavioral Health PS - Interventions: Yes: Attend Stress Management Classes Nutrition - 90-Day Assessment Program Goals Nutrition Program Goals Patient has diagnosis of Hyperlipidemia (ICD E78)?: Yes Visit Date of Eval: 11/13/25 (Nutritoin score of 5) Session #:: 27 Cholesterol/Lipids (Other Core Measures) Determine presence & major risk factors that modify LDL goal: Cigarette smoking, Hypertension or hypertensive medication, Low HDL cholesterol <40 mg/dL*, Family history of premature CHD in Male < 55 years: female <65 yearsFa and Age men > 45 years; women >/= 55 years Outcomes/Goals: Pt IDs own risk factors & lifestyle modifications by Session 10, Verbalizes symptoms of angina & response by session 3., Pt independently manages and Other Additional Outcomes/Goals: Intervention/Plan: Advocate for lipid panel cholesterol medication if applicable, Instruct on personal lipid levels & lipid goals/NCEP guidelines, Instruct on cholesterol and Other additional plan/int Diabetes (Other Core Measures) Diabetes Type: Not Applicable Weight Mgt (Other Care) Height: 5 ft 3 in Weight:: 135 lb BMI: 23.9 Diagnosis Overweight/Obesity BMI> 30% ICD-10 E66: No Diagnosis High BMI/Morbid Obesity BMI> 35% ICD-10 Z68: No Outcomes/Goals: Pt sets, maintains & shows weight loss goal & trend during rehab and Other additional outcomes/goals Intervention/Plan: Instruct on ideal BMI & set weight loss goal w/patient, Assist pt to ID & incorporate diet changes for weight loss by S9, Refer to Structured Weight Loss program as appropriate, Encourage goal of using 250- 300dcal per session for weight loss and Other additional plan/interventions Healthy Eating Habits Will attend diet classes:: Yes Outcomes/Goals:: Consume diet rich in vegs,fruits,whole grain/high fiber,fish,lean meat, Limit sat/trans fats,cholesterol & added salts & sugars and Other additional outcome/goals: Intervention/Plan:: Assess current eating habits and Other Additional plan/interventions 30-day Reassessments:: Progressing Reassessment Notes & Comments:: Pt has attended nutrition class. Pt understands the benefits of a hearth healthy low sodium diet. Education Gave educational materials for:: Signs & symptoms of hypoglycemia, Signs & symptoms of hyperglycemia, Relate diabetes to coronary artery disease and Healthy eating Nutrition - Final Assessment Weight Mgt (Other Care) Height: 5 ft 3 in Weight:: 135 lb BMI: 23.9
[2025-11-13 10:23] VITALS: BP 112/54; BMI 23.9
== END 2025-11-20 23:59 ==
LOC: CR 14:15
PROVIDERS: PCP Family Medicine; Referring Provider Internal Medicine Cardiovascular Disease; Visit Provider Internal Medicine Cardiovascular Disease
DX: I25.10 Atherosclerotic heart disease of native coronary artery without angina pectoris (principal); Z95.1 Presence of aortocoronary bypass graft
CPT/HCPCS: 93798